=== PATIENT | male | born 1955 | race Hispanic/Latino ===

== ENCOUNTER 2017-09-02 04:07 | Inpatient (IN) | payer MEDICAID ==
[2017-09-02] MEDS ORDERED: Sodium Chloride 0.9% 1,000 ML IV STA ×2 (04:22→05:44)
--- NOTE | 2017-09-02 04:26 | ED PDOC ---
Arrival/HPI - General Chief Complaint: Weakness/Neurological Deficit Time Seen by Provider: 09/02/17 04:10 Historian: Patient - History of Present Illness Narrative History of Present Illness (Text): 09/02/17 04:[address] is a 62 year old male who presents to the emergency department with AMS as per patient's partner. Patient's partner that he came home last night at 18:00 to find that patient was not like himself "lethargic." Patient woke up later tonight and was "disoriented." Patient partner's denies patient experiencing any vomiting, fever, or any other complaints at this time. Time/Duration: 4-6 hours Symptom Onset: Gradual Symptom Course: Unchanged Activities at Onset: Rest Context: Home Past Medical History - Provider Review Nursing Documentation Reviewed: Yes - Cardiac Hx Atrial Fibrillation: Yes - Psychiatric Hx Substance Use: No Family/Social History - Physician Review Nursing Documentation Reviewed: Yes Family/Social History: No Known Family HX Smoking Status: no Hx Alcohol Use: No Hx Substance Use: No Allergies/Home Meds Allergies/Adverse Reactions: Allergies No Known Allergies Allergy (Verified 09/02/17 13:39) Home Medications: Home Meds Medication Instructions Recorded Confirmed Alprazolam [Xanax] 0.25 mg PO DAILY 07/21/17 09/02/17 Furosemide [Lasix] 40 mg PO DAILY 07/21/17 09/02/17 Nadolol [Corgard] 10 mg PO DAILY 07/21/17 09/02/17 Pantoprazole [Protonix] 40 mg PO DAILY 07/21/17 09/02/17 Spironolactone 100 mg PO DAILY 07/21/17 09/02/17 Review of Systems - Review of Systems Systems not reviewed;Unavailable: Acuity of Condition Physical Exam Vital Signs Temp Pulse Resp BP Pulse Ox 09/02/17 07:35 80 18 101/78 98 09/02/17 06:07 76 18 110/95 H 99 09/02/17 04:27 96.8 F L 86 18 101/72 99 Appearance: Positive for: Other (disoriented) - Systems Exam Head: Present: Atraumatic, Normocephalic Pupils: Present: PERRL Extroacular Muscles: Present: EOMI Conjunctiva: Present: Normal Mouth: Present: Dry (mucous membranes) Respiratory/Chest: Present: Clear to Auscultation, Good Air Exchange. No: Respiratory Distress, Accessory Muscle Use Cardiovascular: Present: Irregular Rhythm Abdomen: Present: Normal Bowel Sounds. No: Tenderness, Distention, Peritoneal Signs Neurological: Present: GCS=15, CN II-XII Intact, Speech Normal, Motor Func Grossly Intact, Normal Sensory Function, Normal Cerebellar Funct, Norm Deep Tendon Reflexes, Gait Normal, Memory Normal, Normal 2Pt Descrimination Skin: Present: Warm, Dry, Normal Color. No: Rashes Medical Decision Making ED Course and Treatment: EKG: Ordered, reviewed, and independently interpreted the EKG. Rate : 74 BPM Rhythm : A Fib Interpretation : Normal [place], No STEMI 09/02/17 05:28 Reviewed radiology, chest x-ray shoed right lower lobe opacity. - Lab Interpretations Lab Results: 09/02/17 04:10 09/02/17 04:10 Lab Results 09/02/17 04:10: Hemoglobin A1c 4.8 09/02/17 04:10: Procalcitonin 0.41 09/02/17 04:10: Hepatitis A IgM Ab Negative, Hep Bs Antigen Negative, Hep B Core IgM Ab Negative, Hepatitis C Antibody Negative 09/02/17 04:10: POC Glucose (mg/dL) 131 H 09/02/17 04:10: PT 13.9 H, INR 1.29 H, APTT 35.3 H 09/02/17 04:10: Alcohol, Quantitative < 10 09/02/17 04:10: Ammonia 140 H 09/02/17 04:10: Sodium 136, Chloride 103, Potassium 3.2 L, Carbon Dioxide 24, Anion Gap 12, BUN 27 H, Creatinine 1.4, Est GFR ( Amer) > 60, Est GFR ( Non-Af Amer) 51, Random Glucose 119 H, Calcium 8.8, Total Bilirubin 2.0 H, AST 60 H, ALT 32, Alkaline Phosphatase 173 H, Troponin I 0.02, Total Protein 7.7, Albumin 2.8 L, Globulin 4.9, Albumin/Globulin Ratio 0.6 L 09/02/17 04:10: WBC 4.9, RBC 3.20 L, Hgb 10.8 L, Hct 31.6 L, MCV 98.8, MCH 33.8 , MCHC 34.2, RDW 15.7 H, Plt Count 114 L, MPV 9.7, Gran % 55.5, Lymph % (Auto) 27.2, [place] % (Auto) 13.4 H, Eos % (Auto) 2.9, Baso % (Auto) 1.0, Gran # 2.70, Lymph # 1.3, [place] # 0.7 H, Eos # 0.1, Baso # 0.05 09/02/17 04:10: pO2 79 H, VBG pH 7.48 H, VBG pCO2 36.0 L, VBG HCO3 26.8, VBG Total CO2 27.9, VBG O2 Sat (Calc) 98.6 H, VBG Base Excess 3.4 H, VBG Potassium 3.1 L, Sodium 136.0, Chloride 105.0, Glucose 120 H, Lactate 1.5, FiO2 21.0, Venous Blood Potassium 3.1 L - RAD Interpretation Radiology Orders: 09/02/17 04:20 HEAD W/O CONTRAST [CT] Stat 09/02/17 04:22 CHEST PORTABLE [RAD] Stat - Medication Orders Current Medication Orders: Furosemide (Lasix) 20 mg IVP DAILY [facility] Azithromycin 250 mg/ Sodium (Chloride) 250 mls @ 167 mls/hr IVPB DAILY [facility] PRN Reason: Protocol Piperacillin Sod/Tazobactam Sod (Zosyn 2.25 Gm In 0.9% 100 Ml) 2.25 gm in 100 mls @ 100 mls/hr IVPB Q6 [facility] PRN Reason: Protocol Stop: 09/11/17 10:01 Last Admin: 09/02/17 23:35 Dose: 100 mls/hr eMAR Start Stop Document 09/02/17 23:35 CO (Rec: 09/02/17 23:36 CO [id number]) Intravenous Solution Start Date 09/02/17 Start Time 23:36 End Date 09/03/17 End time 00:36 Total Infusion Time 60 Lactulose (Enulose) 20 gm PO Q6 [facility] Last Admin: 09/02/17 23:35 Dose: 20 gm Morphine Sulfate (Morphine) 1 mg IVP Q4H PRN PRN Reason: Pain, severe (8-10) Nadolol (Corgard) 10 mg PO DAILY [facility] Last Admin: 09/02/17 10:19 Dose: Not Given Non-Admin Reason: BP Parameters Not Met MAR Pulse and Blood Pressure Document 09/02/17 10:19 SPA (Rec: 09/02/17 10:19 [email or web address]) Pulse Pulse Rate (60-90) 73 Blood Pressure Blood Pressure (100/60-150/90) 101/56 Pantoprazole Sodium (Protonix Inj) 40 mg IVP DAILY [facility] Last Admin: 09/02/17 10:20 Dose: 40 mg IVP Administration Document 09/02/17 10:20 SPA (Rec: 09/02/17 10:20 [email or web address]) Charges for Administration # of IVP Administrations 1 Spironolactone (Aldactone) 100 mg PO DAILY [facility] Last Admin: 09/02/17 10:19 Dose: 100 mg Discontinued Medications Furosemide (Lasix) 40 mg IVP DAILY [facility] Last Admin: 09/02/17 10:20 Dose: 40 mg MAR Blood Pressure Document 09/02/17 10:20 SPA (Rec: 09/02/17 10:20 [email or web address]) Blood Pressure Blood Pressure (100/60-150/90) 101/56 IVP Administration Document 09/02/17 10:20 SPA (Rec: 09/02/17 10:20 [email or web address]) Charges for Administration # of IVP Administrations 1 Furosemide (Lasix) 20 mg IVP ONCE ONE Stop: 09/02/17 17:46 Last Admin: 09/02/17 17:58 Dose: 20 mg MAR Blood Pressure Document 09/02/17 17:58 SPA (Rec: 09/02/17 17:58 [email or web address]) Blood Pressure Blood Pressure (100/60-150/90) 108/66 IVP Administration Document 09/02/17 17:58 SPA (Rec: 09/02/17 17:58 [place] [id number]) Charges for Administration # of IVP Administrations 1 Sodium Chloride (Sodium Chloride 0.9%) 1,000 mls @ 999 mls/hr IV .Q1H1M STA Stop: 09/02/17 05:22 Last Admin: 09/02/17 04:38 Dose: 999 mls/hr eMAR Start Stop Document 09/02/17 04:38 JOL (Rec: 09/02/17 04:40 [id number] Intravenous Solution Start Date 09/02/17 Start Time 04:39 End Date 09/02/17 End time 05:40 Total Infusion Time 61 Ceftriaxone Sodium (Rocephin 1 Gram Ivpb) 1 gm in 100 mls @ 200 mls/hr IVPB STAT STA PRN Reason: Protocol Stop: 09/02/17 05:57 Last Admin: 09/02/17 05:55 Dose: 200 mls/hr eMAR Start Stop Document 09/02/17 05:55 JOL (Rec: 09/02/17 06:10 [id number] Intravenous Solution Start Date 09/02/17 Start Time 05:55 End Date 09/02/17 End time 06:25 Total Infusion Time 30 Azithromycin (Zithromax 500mg In Ns) 500 mg in 250 mls @ 167 mls/hr IVPB STAT STA PRN Reason: Protocol Stop: 09/02/17 06:57 Last Admin: 09/02/17 06:41 Dose: 167 mls/hr eMAR Start Stop Document 09/02/17 06:41 JOL (Rec: 09/02/17 06:41 [id number] Intravenous Solution Start Date 09/02/17 Start Time 06:41 End Date 09/02/17 End time 08:11 Total Infusion Time 90 Sodium Chloride (Sodium Chloride 0.9%) 1,000 mls @ 999 mls/hr IV .Q1H1M STA Stop: 09/02/17 06:44 Last Admin: 09/02/17 05:55 Dose: 999 mls/hr eMAR Start Stop Document 09/02/17 05:55 JOL (Rec: 09/02/17 06:11 [id number] Intravenous Solution Start Date 09/02/17 Start Time 05:55 End Date 09/02/17 End time 06:56 Total Infusion Time 61 Azithromycin 250 mg/ Sodium (Chloride) 250 mls @ 167 mls/hr IVPB DAILY [facility] PRN Reason: Protocol Ceftriaxone Sodium (Rocephin 1 Gram Ivpb) 1 gm in 100 mls @ 100 mls/hr IVPB DAILY [facility] PRN Reason: Protocol Lactulose (Enulose) 20 gm PO ONCE STA Stop: 09/02/17 05:02 Last Admin: 09/02/17 05:27 Dose: 20 gm Morphine Sulfate (Morphine) 2 mg IVP STAT STA Stop: 09/02/17 06:29 Last Admin: 09/02/17 06:47 Dose: 2 mg MAR Pain Assessment Document 09/02/17 06:47 JO (Rec: 09/02/17 06:48 [id number] Pain Reassessment Is this a pain reassessment? No Sleep Is patient sleeping during reassessment? No Presence of Pain Presence of Pain Yes Pain Scale Used Pain Scale Used Numeric Location Left, Right or Bilateral Right Pain Location Body Site Chest Description Intensity of Pain at present 10 Acceptable Level of Pain 2 IVP Administration Document 09/02/17 06:47 JO (Rec: 09/02/17 06:48 [id number]) Charges for Administration # of IVP Administrations 1 Nadolol (Corgard) 10 mg PO STAT STA Stop: 09/03/17 01:04 Last Admin: 09/03/17 01:30 Dose: Not Given Non-Admin Reason: BP Parameters Not Met [facility] Pulse and Blood Pressure Document 09/03/17 01:30 CO (Rec: 09/03/17 01:31 CO [id number]) Pulse Pulse Rate (60-90) 87 Blood Pressure Blood Pressure (100/60-150/90) 93/70 Pneumococcal Polyvalent Vaccine (Pneumovax 23 Vaccine) 0.5 ml IM .ONCE ONE Stop: 09/02/17 16:24 Potassium Chloride (K-Dur 20 Meq Er Tab) 40 meq PO STAT STA Stop: 09/02/17 05:02 Last Admin: 09/02/17 05:27 Dose: 40 meq - Scribe Statement The provider has reviewed the documentation as recorded by the Corina Estevez Provider Scribe Attestation: All medical record entries made by the Scribe were at my direction and personally dictated by me. I have reviewed the chart and agree that the record accurately reflects my personal performance of the history, physical exam, medical decision making, and the department course for this patient. I have also personally directed, reviewed, and agree with the discharge instructions and disposition. Disposition/Present on Arrival - Present on Arrival Any Indicators Present on Arrival: No History of DVT/PE: No History of Uncontrolled Diabetes: No Urinary Catheter: No History of Decub. Ulcer: No History Surgical Site Infection Following: None - Disposition Have Diagnosis and Disposition been Completed?: Yes Diagnosis: Hepatic encephalopathy, Pneumonia Disposition: HOSPITALIZED Disposition Time: 05:43 Condition: GUARDED
[2017-09-02 04:30] LABS: VENOUS BLOOD GAS BASE EXCESS 3.4 mmol/L (0.0-2.0); VENOUS BLOOD PH 7.48 (7.32-7.43)
[2017-09-02 04:37] LABS: BASO # 0.05 K/mm3 (0.0-2.0); EOS # 0.1 (0.0-0.7); EOS % 2.9 % (1.5-5.0); GRAN # 2.7 (1.4-6.5); GRAN % 55.5 % (50.0-68.0); HEMATOCRIT 31.6 % (42.0-52.0); LYMPH # 1.3 (1.2-3.4); LYMPH % 27.2 % (22.0-35.0); MEAN CELL VOLUME 98.8 fl (80.0-105.0); MEAN CORPUSCULAR HEMOGLOBIN 33.8 pg (25.0-35.0); MEAN CORPUSCULAR HGB CONC 34.2 g/dl (31.0-37.0); MEAN PLATELET VOLUME 9.7 fl (7.0-11.0); MONO # 0.7 (0.1-0.6); MONO % 13.4 % (1.0-6.0); RED CELL DISTRIBUTION WIDTH 15.7 % (11.5-14.5); WHITE BLOOD COUNT 4.9 10^3/ul (4.5-11.0)
[2017-09-02 04:58] LABS: ALB/GLOB RATIO 0.6 (1.1-1.8); ALKALINE PHOSPHATASE 173 U/L (38-126); ALT/SGPT 32 U/L (7-56); AST/SGOT 60 U/L (17-59); BLOOD UREA NITROGEN 27 mg/dL (7-21); CALCIUM 8.8 mg/dL (8.4-10.5); CARBON DIOXIDE 24 mmol/L (21-33); CHLORIDE 103 mmol/L (98-107); GFR AFRICAN-AMERICAN > 60; GLUCOSE,RANDOM 119 mg/dL (70-110); POTASSIUM 3.2 mmol/L (3.6-5.0); SODIUM 136 mmol/L (132-148); TOTAL PROTEIN 7.7 g/dL (5.8-8.3)
[2017-09-02] MEDS ORDERED: Potassium Chloride 20 mEq ER Tab PO STA (05:01)
[2017-09-02 05:08] LABS: TROPONIN I 0.02 ng/mL
[2017-09-02] MEDS ORDERED: cefTRIAXone 1 gm 1 GM/100 ML BAG IVPB STA (05:28)
[2017-09-02] MEDS ORDERED: Azithromycin 500MG/NS 250ml 500 MG/250 ML BAG IVPB STA (05:28)
[2017-09-02] MEDS ORDERED: Morphine 2 mg/ml ISec IVP STA (06:28)
--- NOTE | 2017-09-02 06:35 | CT ---
EXAM: CT Head Without Intravenous Contrast CLINICAL HISTORY: 62 years old, male; Signs and symptoms; Altered mental status/memory loss; Additional info: AMS TECHNIQUE: Axial computed tomography images of the head/brain without intravenous contrast. All CT scans at this facility use one or more dose reduction techniques, viz.: automated exposure control; ma/kV adjustment per patient size (including targeted exams where dose is matched to indication; i.e. head); or iterative reconstruction technique. COMPARISON: No relevant prior studies available. FINDINGS: Brain: Mild atrophy. No intracranial hemorrhage. No mass. No definite edema. Ventricles: No hydrocephalus. Bones/joints: No acute fracture. Soft tissues: Unremarkable. Vasculature: Mild atherosclerotic disease of intracranial arteries. Sinuses: No acute sinusitis. Mastoid air cells: No mastoid effusion. Orbits: Unremarkable as visualized. IMPRESSION: 1. No definite acute intracranial abnormality. 2. Incidental/non-acute findings are described above.
[2017-09-02 07:01] LABS: INR 1.29 (0.93-1.08); PARTIAL THROMBOPLASTIN TIME 35.3 Seconds (23.7-30.8)
--- NOTE | 2017-09-02 07:48 | CP.PCM.HP ---
<Bekah Hwang - Last Filed: 09/02/17 14:05> History of Present Illness - History of Present Illness History of Present Illness: Patient is a 62 year old male with past medical history of Non-alcoholic liver cirrhosis, HTN, GERD, CHF (EF 45-50%) presents to [facility] for altered mental status and lethargy. The patients partner is at the bedside and states that when he came home yesterday evening, the patient was lethargic and not like himself. Patient was confused. Early this morning, patient remained confused and requested to be brought to the hospital. Patient is currently lethargic but answering questions appropriately. States that he feel out of bed the night before and landed on the right side of his body, denies hitting his head or LOC. Complaining of pain on his right side. Denies headaches, dizziness, cp, palpitations, sob, urinary symptoms, changes in bowel habits. Last BM was early this morning prior to arrival. Patient was scheduled for endoscopy today with his GI doctor. ED Course: Morphine 2mg x 1 dose, Lactulose 20gm, Azitho/Rocephin x 1 dose, Potassium 40meq PMD: Dr Bishop Tailings Man: Dr Angeles Allergies: Banana, Beef Medical History: HTN, GERD, Non-alcoholic liver cirrhosis, Ascites, CHF Medications: Pantoprazole, Nadolol, Spiranoalctone, Lasix, alprazolam Surgical Hx: Inguinal hernia repair Social Hx: Denies alcohol, drug used; Former smoker, quit 1 1/2 ago Family Hx: Mother - DM, heart disease; Father - AL Present on Admission - Present on Admission Any Indicators Present on Admission: No Review of Systems - Constitutional Constitutional: Fatigue, Lethargy. absent: Chills, Fever - EENT Eyes: absent: Blurred Vision, Change in Vision Ears: absent: Decreased Hearing - Cardiovascular Cardiovascular: absent: Chest Pain, Chest Pain at Rest, Dyspnea, Lightheadedness , Palpitations - Respiratory Respiratory: absent: Cough, Wheezing - Gastrointestinal Gastrointestinal: Abdominal Pain. absent: Constipation, Diarrhea, Melena, Nausea, Vomiting - Genitourinary Genitourinary: absent: Change in Urinary Stream, Dysuria, Hematuria - Musculoskeletal Musculoskeletal: absent: Back Pain, Numbness, Stiffness, Tingling - Neurological Neurological: absent: Confusion, Dizziness, Headaches, Weakness Past Patient History - Past Social History Smoking Status: no - CARDIAC Hx Atrial Fibrillation: Yes - PSYCHIATRIC Hx Substance Use: No Meds Allergies/Adverse Reactions: Allergies Allergy/AdvReac Type Severity Reaction Status Date / Time No Known Allergies Allergy Verified 09/02/17 13:39 Physical Exam - Constitutional Appears: Well, No Acute Distress - Head Exam Head Exam: ATRAUMATIC, NORMAL INSPECTION - Eye Exam Eye Exam: EOMI, Normal appearance - ENT Exam ENT Exam: Mucous Membranes Moist - Neck Exam Neck exam: Positive for: Full Rom - Respiratory Exam Respiratory Exam: Decreased Breath Sounds, NORMAL BREATHING PATTERN. absent: Rales, Rhonchi, Wheezes - Cardiovascular Exam Cardiovascular Exam: Irregular Rhythm, +S1, +S2 - GI/Abdominal Exam GI & Abdominal Exam: Distended, Soft, Tenderness (Diffuse abdominal tenderness) . absent: Guarding, Rebound, Rigid - Rectal Exam Rectal Exam: Deferred - Extremities Exam Extremities exam: Positive for: full ROM, normal inspection, pedal pulses present. Negative for: calf tenderness, pedal edema - Back Exam Back exam: NORMAL INSPECTION - Neurological Exam Neurological exam: Alert, Oriented x3 - Psychiatric Exam Psychiatric exam: Normal Affect, Normal Mood - Skin Skin Exam: Dry, Normal Color, Warm Results - Vital Signs Recent Vital Signs: Last Vital Signs Temp 96.8 F L 09/02/17 04:27 Pulse 76 09/02/17 06:07 Resp 18 09/02/17 06:07 BP 110/95 H 09/02/17 06:07 Pulse Ox 99 09/02/17 06:07 - Labs Result Diagrams: 09/02/17 04:10 09/02/17 04:10 Assessment & Plan - Assessment and Plan (Free Text) Assessment: Patient is a 62 year old male with past medical history of Non-alcoholic liver cirrhosis, HTN, GERD, CHF (EF 45-50%) presents to [facility] for altered mental status and lethargy. Patient found to have ammonia level of 140. Currently being treated for hepatic encephalopathy and community acquired pneumonia. Plan: 1. Altered Mental Status 2/2 Hepatic encephalopathy in the setting of Non- alcoholic Liver Cirrhosis - Currently Afebrile, AAOx3 - Ammonia level on admission 140 - Lactulose 20mg Q6H, titrate to 2-3 BMs daily - CT head: negative for acute pathology - Fall precautions 2. Hx Non-alcoholic Liver Cirrhosis with Severe ascities - Abdominal US ordered - Lasix 40mg IV daily - Morphine 1mg Q4hr prn severe pain - Continue Aldactone 100mg daily - Started on Azithromycin and Rocephin for SBP ppx - F/U Hep panel - AST/ALT: 60/32; T bili 2.0 - GI consulted, f/u recommendations - Partner to bring medical [place] [facility] [place]. Community Acquired Pneumonia, Right Lower Lobe - Started on Azithromycin and Rocephin - Urine strep/legionella ab ordered - F/U blood cx, urine cx, sputum cx - F/U procalcitonin - ID consulted, f/u recommendations 4. Anemia (likely secondary to chronic disease) - Hgb 10.8 on admission - No active signs of bleeding at this time - Will continue to monitor - F/U anemia workup 5. Hx of Congestive Heart Failure (systolic) - Last echo 06/2017 showing EF 45-50% - Stress test showed reversible apical/inferoseptal defects suspected of ischemia - Continue Lasix and aldactone - Daily weights - Strict I/Os 6. Hx of Atrial Fibrillation - Currently afib, rate controlled - Was on coumadin previously, had a GI bleed in the past - Not currently on anticoagulation - Trop 0.02 on admission 7. Hypertension - Hold Nadolol 10mg daily 8. Anxiety/Depression - Will hold xanax at this time 9. Hypokalemia - Potassium 3.2 on admission - Repleted, continue to monitor GI/DVT ppx - Protonix 40mg IVP - SCDs <Fay Das - Last Filed: 09/03/17 16:58> Results - Vital Signs Recent Vital Signs: Last Vital Signs Temp 97.9 F 09/03/17 05:37 Pulse 93 H 09/03/17 14:31 Resp 20 09/03/17 05:37 BP 98/63 L 09/03/17 14:31 Pulse Ox 98 09/03/17 05:37 - Labs Result Diagrams: 09/03/17 01:05 09/03/17 01:05 Labs: Laboratory Results - last 24 hr 09/02/17 09/03/17 09/03/17 13:30 01:05 01:05 WBC 5.1 RBC 3.49 L Hgb 11.9 L Hct 34.8 L MCV 99.7 MCH 34.1 MCHC 34.2 RDW 15.7 H Plt Count 117 L MPV 9.3 Gran % 65.2 Lymph % (Auto) 21.5 L [place] % (Auto) 10.5 H Eos % (Auto) 2.0 Baso % (Auto) 0.8 Gran # 3.30 Lymph # 1.1 L [place] # 0.5 Eos # 0.1 Baso # 0.04 PT 13.6 H INR 1.26 H APTT 34.5 H Sodium Potassium Chloride Carbon Dioxide Anion Gap BUN Creatinine Est GFR ( Amer) Est GFR (Non-Af Amer) Random Glucose Calcium Phosphorus Magnesium Ferritin 213.0 Total Bilirubin AST ALT Alkaline Phosphatase Ammonia Troponin I Total Protein Albumin Globulin Albumin/Globulin Ratio 09/03/17 09/03/17 01:05 01:05 WBC RBC Hgb Hct MCV MCH MCHC RDW Plt Count MPV Gran % Lymph % (Auto) [place] % (Auto) Eos % (Auto) Baso % (Auto) Gran # Lymph # [place] # Eos # Baso # PT INR APTT Sodium 141 Potassium 3.6 Chloride 104 Carbon Dioxide 27 Anion Gap 14 BUN 24 H Creatinine 1.4 Est GFR ( Amer) > 60 Est GFR (Non-Af Amer) 51 Random Glucose 97 Calcium 8.7 Phosphorus 3.8 Magnesium 1.8 Ferritin Total Bilirubin 3.7 H AST 63 H ALT 35 Alkaline Phosphatase 161 H Ammonia 27 Troponin I 0.01 D Total Protein 7.9 Albumin 2.9 L Globulin 5.0 Albumin/Globulin Ratio 0.6 L Attending/Attestation - Attestation I have personally seen and examined this patient.: Yes I have fully participated in the care of the patient.: Yes I have reviewed all pertinent clinical information: Yes Notes (Text): I have seen and examined the patient at bedside. Agree with the above note with the following additions/ exceptions: Briefly this is 62 year old male with history of TRUJILLO, former smoker, former social alcohol drinker, HTN, CHF (EF~45- 50%), afib not on anticoagulation due to GI bleed who was brought by his partner for evaluation of AMS and lethargy most likely secondary to hepatic encephalopathy and also found to have RLL CAP. His ammonia was 140. We will start lactulose and titrate dose based on number of stools per day. CT head negative. Will check abdomen US and hep panel. There is no abdominal tenderness. Abdomen is distended but not tense. Last paracentesis was in January 2017. Start lasix, spironolactone and nadolol. Will start rocephin and zithro. Anemia is stable. Will consult ID and GI. Upon discharge patient will follow up with Dr Lew. Dr Fay Das
[2017-09-02] MEDS ORDERED: Azithromycin 250 MG in Sodium Chloride 0.9% 250 ML IVPB SCH (10:00)
[2017-09-02] MEDS ORDERED: cefTRIAXone 1 gm 1 GM/100 ML BAG IVPB SCH (10:00)
[2017-09-02] MEDS ORDERED: Barium Sulfate Susp 2.1% w/v, 2.0% w/w 450 mL Bottle PO ONE (10:06)
--- NOTE | 2017-09-02 10:12 | US ---
HISTORY: Hx of non-alcoholic liver cirrhosis; ascites COMPARISON: None available. TECHNIQUE: Sonographic evaluation of the abdomen. FINDINGS: Examination limited by habitus and patient condition. LIVER: Measures 21.5 cm in sagittal dimension. Echogenic liver may be seen in setting of hepatic parenchymal disease or fatty infiltration. Nodular hepatic contour. No focal hepatic mass identified. The main portal vein appears patent with normal directional flow. No intrahepatic bile duct dilatation. Perihepatic and ascites. GALLBLADDER: No gallstones. No gallbladder wall thickening. Negative sonographic Ochoa's sign as assessed by the voltmeter operator. COMMON BILE DUCT: Measures 5 mm. PANCREAS: Not well visualized. RIGHT KIDNEY: Measures 10.9 x 5.3 x 4.8 cm. No obstructing calculus or hydronephrosis identified. LEFT KIDNEY: Measures 11.6 x 5.9 x 4.9 cm. No obstructing calculus or hydronephrosis identified. SPLEEN: Measures approximately 13.5 cm. Perisplenic ascites. AORTA: Not visualized. IVC: Not well-visualized. OTHER FINDINGS: Incidental note is made of right pleural effusion and probable left pleural effusion. IMPRESSION: Hepatomegaly. Echogenic liver may be seen in setting of hepatic parenchymal disease or fatty infiltration. Nodular hepatic contour, consistent with cirrhosis. Perihepatic ascites. Splenomegaly. Perisplenic ascites. Incidental note is made of bilateral pleural effusions.
[2017-09-02] MEDS: Piperacillin/Tazobact 2.25gm 2.25 GM/100 ML BAG IVPB SCH ×4 (10:20→23:35)
--- NOTE | 2017-09-02 10:24 | RAD ---
HISTORY: ams COMPARISON: No prior. FINDINGS: LUNGS: There is a patchy infiltrate at the right lung base that partially obscures the diaphragm PLEURA: No significant pleural effusion identified, no pneumothorax apparent. CARDIOVASCULAR: Normal. OSSEOUS STRUCTURES: No significant abnormalities. VISUALIZED UPPER ABDOMEN: Normal. OTHER FINDINGS: None. IMPRESSION: Right lower lobe infiltrate
[2017-09-02] MEDS ORDERED: Iohexol 240 (50 ml) ONE (11:17)
[2017-09-02 11:40] LABS: PH,URINE 6.5 (4.7-8.0); URINE BILIRUBIN NEGATIVE (NEGATIVE); URINE BLOOD NEGATIVE (NEGATIVE); URINE GLUCOSE (UA) NEGATIVE (NEGATIVE); URINE KETONE NEGATIVE (NEGATIVE); URINE LEUKOCYTE ESTERASE NEGATIVE Leu/uL (NEGATIVE); URINE PROTEIN NEGATIVE mg/dL (<30 mg/dL); URINE UROBILINOGEN 0.2 E.U./dL (<1 E.U./dL)
[2017-09-02 11:47] LABS: URINE APPEARANCE CLEAR (CLEAR); URINE COLOR YELLOW (YELLOW)
--- NOTE | 2017-09-02 13:06 | CARD ---
APPROVED REPORT EKG Measurement Heart [id number] <Conclusion> Atrial fibrillation Abnormal ECG
[2017-09-02 13:57] LABS: IRON 180 ug/dL (45-180)
--- NOTE | 2017-09-02 15:50 | CT ---
PROCEDURE: CT Abdomen and Pelvis without IV contrast. HISTORY: r/o SBP COMPARISON: Abdominal ultrasound performed 09/02/17 TECHNIQUE: Contiguous axial images of the abdomen and pelvis. Oral contrast was administered. No IV contrast given. Coronal and Sagittal reformats generated and reviewed. Radiation dose: Total exam DLP = 599.42 mGy-cm. This CT exam was performed using one or more of the following dose reduction techniques: Automated exposure control, adjustment of the mA and/or kV according to patient size, and/or use of iterative reconstruction technique. FINDINGS: There is limited evaluation of the solid organs without the administration of IV contrast. LOWER THORAX: Small right-sided pleural effusion and associated consolidation. LIVER: Nodular hepatic contour. Heterogeneous hepatic parenchyma. GALLBLADDER AND BILE DUCTS: Distended gallbladder. No calcified gallstones evident. PANCREAS: Fatty atrophy. SPLEEN: Borderline splenomegaly. ADRENALS: Unremarkable unenhanced appearance. KIDNEYS AND URETERS: No hydronephrosis or obstructing renal calculus. 3.3 cm left lower pole nonobstructing calculus. BLADDER: The urinary bladder appears unremarkable. REPRODUCTIVE: The prostate gland measures approximately 3.3 x 4.8 cm and contains coarse calcifications. APPENDIX: The appendix appears within normal limits of caliber. No secondary signs of acute appendicitis. BOWEL: The stomach is nondistended. The bowel loops appear within normal limits of caliber without evidence of intestinal obstruction. PERITONEUM: Large abdominal and pelvic ascites. No definite free air. LYMPH NODES: No bulky lymphadenopathy identified. VASCULATURE: Atherosclerotic calcifications. No aortic aneurysm. BONES: Osseous demineralization. Degenerative changes. OTHER FINDINGS: Fluid containing right inguinal hernia. IMPRESSION: Small right-sided pleural effusion and associated consolidation. Large abdominal and pelvic ascites. Distended gallbladder. No calcified gallstones evident. Borderline splenomegaly. Nodular hepatic contour. Heterogeneous hepatic parenchyma. Fatty pancreatic atrophy. Fluid containing right inguinal hernia.
[2017-09-02 16:23] VITALS: BMI 22.4
[2017-09-02] MEDS ORDERED: Influenza Vaccine 60 mcg/0.5 mL SYR (4YR UP) IM ONE (16:23)
[2017-09-02] MEDS ORDERED: Pneumococcal 23-Valent Vaccine IM ONE (16:23)
--- NOTE | 2017-09-02 20:27 | CON ---
DATE OF SERVICE: 09/02/2017 LOCATION: The patient was in room #264, bed #2. CHIEF COMPLAINT: Abdominal pain times several days. HISTORY OF PRESENT ILLNESS: This is a 62-year-old male with history of TRUJILLO, history of renal disease, atrial fibrillation, history of moderate aortic stenosis, history of mild tricuspid regurgitation with ejection fraction of 45% to 50% with cirrhosis and ascites that was documented on MRI of the abdomen in 03/2017. The patient also had a pharmacological stress testing on 07/21/2017 which showed reversible ischemia, is now admitted with abdominal pain and confusion, and the patient states that he is complaining of fever at home and occasional chills with abdominal pain. The abdominal pain is diffuse, non-radiation. No nausea or vomiting. No chest pain. No dysuria. No headaches. PAST MEDICAL HISTORY: Significant for TRUJILLO, renal disease, atrial fibrillation, moderate aortic stenosis, mild tricuspid regurgitation, ejection fraction of 45% to 50%, cirrhosis of the liver and ascites, and reversible ischemic disease on pharmacological stress testing with reversible ischemia with normal left ventricular function. PAST SURGICAL HISTORY: Noncontributory. ALLERGIES: THE PATIENT HAS NO KNOWN ALLERGIES TO ANY ANTIBIOTICS. MEDICATIONS: Include spironolactone, Protonix, nadolol, furosemide, and Xanax. PHYSICAL EXAMINATION: GENERAL: The patient is awake. He knows who he is. He knows what year it is. He knows where he is. Awake and oriented x3. VITAL SIGNS: Temperature of 96.8, blood pressure is 110/90, respiratory rate of 18, heart rate of 86. HEENT: Unremarkable. NECK: Supple. LUNGS: Have decreased breath sounds. HEART: Normal S1 and S2. ABDOMEN: Soft, mild tenderness, but no rebound, no guarding, and no masses. LABORATORY DATA: Laboratory examination reveals a white count of 4.9, hemoglobin of 10, platelets of 114 with 55% granulocytosis and 27% lymphocytosis. Coagulation reveals the INR is 1.29 and PT is 13.9 with PTT of 35. Blood gases are reviewed. Chemistries reveal a BUN of 27, creatinine of 1.4 with a GFR of 51, glucose is 131, bilirubin is 2, AST is 60, alkaline phosphatase is 173, ammonia level is 140, and the alcohol level is less than 10. Microbiology is pending. Currently, the patient had an ultrasound of the abdomen, results are pending. ASSESSMENT AND PLAN: This is a 62-year-old male with history of nonalcoholic steatohepatitis, history of renal disease, atrial fibrillation, moderate aortic stenosis, mild tricuspid regurgitation with cirrhosis of the liver with ascites, and reversible ischemia on a pharmacological stress testing, admitted now with abdominal pain, weakness, fever, and chills. To rule out spontaneous bacterial peritonitis, we will order Zosyn. We will order a CAT scan of the abdomen and pelvis because of his age. We will order an human immunodeficiency virus and hepatitis profile, and recommended a Gastroenterology consultation for a paracentesis. We will discontinue the ceftriaxone. We will make further recommendation based on the availability of initial results, chest x-ray, and we will follow with you. We will continue azithromycin for now with the Zosyn, pending initial workup results. We will follow with you. Bravo Christensen MD
[2017-09-03 01:20] LABS: BASO # 0.04 K/mm3 (0.0-2.0); BASO % 0.8 % (0.0-3.0); EOS # 0.1 (0.0-0.7); GRAN # 3.3 (1.4-6.5); GRAN % 65.2 % (50.0-68.0); HEMATOCRIT 34.8 % (42.0-52.0); LYMPH # 1.1 (1.2-3.4); LYMPH % 21.5 % (22.0-35.0); MEAN CELL VOLUME 99.7 fl (80.0-105.0); MEAN CORPUSCULAR HEMOGLOBIN 34.1 pg (25.0-35.0); MEAN CORPUSCULAR HGB CONC 34.2 g/dl (31.0-37.0); MEAN PLATELET VOLUME 9.3 fl (7.0-11.0); MONO # 0.5 (0.1-0.6); MONO % 10.5 % (1.0-6.0); RED CELL DISTRIBUTION WIDTH 15.7 % (11.5-14.5); WHITE BLOOD COUNT 5.1 10^3/ul (4.5-11.0)
[2017-09-03 01:27] LABS: INR 1.26 (0.93-1.08); PARTIAL THROMBOPLASTIN TIME 34.5 Seconds (23.7-30.8)
[2017-09-03 01:30] LABS: ALB/GLOB RATIO 0.6 (1.1-1.8); ALKALINE PHOSPHATASE 161 U/L (38-126); ALT/SGPT 35 U/L (7-56); AST/SGOT 63 U/L (17-59); BILIRUBIN,TOTAL 3.7 mg/dL (0.2-1.3); BLOOD UREA NITROGEN 24 mg/dL (7-21); CALCIUM 8.7 mg/dL (8.4-10.5); CARBON DIOXIDE 27 mmol/L (21-33); CHLORIDE 104 mmol/L (98-107); GFR AFRICAN-AMERICAN > 60; GLUCOSE,RANDOM 97 mg/dL (70-110); MAGNESIUM 1.8 mg/dL (1.7-2.2); PHOSPHOROUS 3.8 mg/dL (2.5-4.5); POTASSIUM 3.6 mmol/L (3.6-5.0); SODIUM 141 mmol/L (132-148); TOTAL PROTEIN 7.9 g/dL (5.8-8.3)
[2017-09-03 01:52] LABS: TROPONIN I 0.01 ng/mL
[2017-09-03] MEDS: Piperacillin/Tazobact 2.25gm 2.25 GM/100 ML BAG IVPB SCH ×4 (05:29→23:10)
--- NOTE | 2017-09-03 09:53 | CON ---
DATE: 09/02/2017 HISTORY OF PRESENT ILLNESS: Mr. Lane WAS EXAMINED this morning. He is a 62-year-old white male known to consultants with a past medical history of inguinal hernia repair, history of hypertension, acid reflux, refractory ascites due to decompensated cirrhosis, esophageal varices and several episodes of GI bleeds. The patient was admitted due to change in mental status. The patient was seen by his partner, who noted increasing disorientation over the past couple of days, especially last night. The patient was brought into the Emergency Room, where he was found to have on chest x-ray, infiltrate in the right lower lobe. The patient denied any fever, chills, nausea, vomiting, hematemesis, rectal bleeding, etc. His abdomen is still distended. The patient has past history of medication noncompliance. Last time, I saw this patient was for an acute upper GI bleed episode at [facility]. The patient has been on chronic therapy for refractory ascites for quite some time. A most recent evaluation of his medications today include diuretics plus spironolactone and beta-ameya. At the current time, the patient indicates the abdomen is distended, tight, tender in the epigastric area. He is afebrile, not worse at current time point, but the main difficulty is breathing at the current time point. PHYSICAL EXAMINATION: VITAL SIGNS: I reviewed this patient's vital signs. HEENT: Noncontributory. LUNGS: Decreased breath sounds, basilar bilaterally, but breath sounds are irregular in the right lower lobe extending up to about one-third of the apex. HEART: Irregular rhythm. ABDOMEN: Distended. Ascites can be appreciated clinically, he is tender in the epigastric area. MUSCULOSKELETAL: He is tender in the area where he fell yesterday according to the patient's partner. LABORATORY DATA: Evaluation of the patient's laboratory data includes urine positive for benzodiazepines as well as urine opiates, His alcohol level was less than 10. Serology is negative. Hepatitis C antibody pending. Chemistries reviewed. Glucose is in the impaired glucose tolerance range, however, high glucose 131. His alkaline phosphatase is 173, ammonia level 140 with albumin level of 2.8. Transaminases, AST/ALT ratio 60/32. Bilirubin 2.0. Review of his CBC indicates white count of 4.9 with H and H of 10.0/31, platelet count of 114. His INR is 1.39. The patient has several imaging studies including an ultrasound, which reveals evidence of no stones, no gallbladder wall thickening. Liver is echogenic since the patient has had hepatic steatosis before. No focal hepatic mass noted. Portal vein is patent. There is no intrahepatic ductal dilatation. Patient's splenomegaly report is consistent with his diagnosis of portal hypertension with history of esophageal varices. There are small bilateral pleural effusion. The patient has known cirrhosis and the liver ultrasound exhibits a nodular hepatic contour which is consistent. The patient had head CT because of change in mental status, which revealed basically no definite acute intracranial abnormality. I reviewed the H and P as well as ER doctor's documentation. ASSESSMENT: This is a 62-year-old white male known to parts consultant with past medical history of decompensated cirrhosis, history of esophageal variceal bleed, refractory ascites, currently on diuretics, presenting with new right lower lobe pneumonia. As far as the pneumonia is concerned, he is currently on antibiotic therapy, on ceftriaxone. Azithromycin was also added per house staff. The patient has known documented decompensated liver disease. He is here with clinical scenario of a pneumonia.with an increase in the hepatic encephalopathy which he has had on numerous occasions before. The patient does use lactulose for hepatic encephalopathy at home. He has used beta-blockers plus spironolactone for control of ascites, but for the most part, he has been medication refractory. The patient has been placed on his current medications, which include spironolactone 100 mg daily, nadolol 10 mg daily, as well as lactulose on a q.6 hour basis. He does receive Lasix 40 mg, which is a good adjunct to the spironolactone 100 mg daily. His electrolytes must be followed with this regimen. It might be in the patient's best interest at some time point to have a large-volume paracentesis done. He is not sure exactly when his last paracentesis was, according to his partner approximately more than 6 months, and this patient is medication refractory. If mental status permits, possibly either clear or full liquids and increase consistency as tolerated when his mental status improves appropriately. Edgar Fuchs DO, PhD MTDCasper
[2017-09-03] MEDS ORDERED: Azithromycin 250 MG in Sodium Chloride 0.9% 250 ML IVPB SCH (10:00)
[2017-09-03] MEDS ORDERED: cefTRIAXone 1 gm 1 GM/100 ML BAG IVPB SCH (10:00)
--- NOTE | 2017-09-03 11:15 | CP.PCM.PN ---
<Steven Dixon - Last Filed: 09/03/17 11:04> Subjective - Date & Time of Evaluation Date of Evaluation: 09/03/17 Time of Evaluation: 09:30 - Subjective Subjective: Subjective: Patient seen and examined at bedside. Resting comfortably in bed. Admits to 2 nonbloody bowel movements. Does not want to take lactulose. Admits to baseline right sided back pain. Denies f/c/cp/sob/abdominal pain/n/v/d/c/urinary sxs. Physical Examination: - Constitutional Appears: Well, No Acute Distress - Head Exam Head Exam: ATRAUMATIC, NORMAL INSPECTION - Eye Exam Eye Exam: EOMI, Normal appearance - ENT Exam ENT Exam: Mucous Membranes Moist - Neck Exam Neck exam: Positive for: Full Rom - Respiratory Exam Respiratory Exam: Decreased Bilateral Air Entry, NORMAL BREATHING PATTERN. absent: Rales, Rhonchi, Wheezes - Cardiovascular Exam Cardiovascular Exam: Irregular Rhythm, +S1, +S2 - GI/Abdominal Exam GI & Abdominal Exam: Soft, absent: Guarding, Rebound, Rigid - Rectal Exam Rectal Exam: Deferred - Extremities Exam Extremities exam: Positive for: full ROM, normal inspection, pedal pulses present. Negative for: calf tenderness, pedal edema - Back Exam Back exam: NORMAL INSPECTION - Neurological Exam Neurological exam: Alert, Oriented x3, Patient is awake, alert, responds to verbal stimuli, answers questions appropriately, follows commands, and moves extremities past midline - Psychiatric Exam Psychiatric exam: Normal Affect, Normal Mood - Skin Skin Exam: Dry, Normal Color, Warm Assessment and Plan: Patient is a 62 year old male with past medical history of Non-alcoholic liver cirrhosis, HTN, GERD, CHF (EF 45-50%) presents to [facility] for altered mental status and lethargy. Patient found to have ammonia level of 140 which has improved to 27. Currently being treated for hepatic encephalopathy and community acquired pneumonia. Plan: Altered Mental Status 2/2 Hepatic encephalopathy in the setting of Non- alcoholic Liver Cirrhosis - improving- patient is awake, alert, responds to verbal stimuli, answers questions appropriately, follows commands, and moves extremities past midline - Ammonia level downtrending to 27 - Lactulose discontinued due to patient noncompliance- starting xifaxin - CT head: negative for acute pathology - Fall precautions Nonsustained Vtach - experienced 1 9 beat run of vtach- no chest pain - cardiology consult - ECHO from august reviewed - home nodalol held due to low BPs Hx Non-alcoholic Liver Cirrhosis with Severe ascities - Abdominal US reviewed- heaptomegaly with infiltration and cirrhosis noted - Lasix 20mg IV daily - Morphine 1mg Q4hr prn severe pain - Continue Aldactone 100mg daily - Started on Azithromycin and Rocephin for SBP ppx - F/U Hep panel - AST/AL noted; T bili 3.7 - GI consulted, appreciate recommendations - Partner to bring medical records from [facility] Community Acquired Pneumonia, Right Lower Lobe - Urine strep/legionella ab ordered - F/U blood cx, urine cx, sputum cx - procalcitonin 0.41 - ID consulted- on zosyn and azithromycin Anemia (likely secondary to chronic disease) - Hgb stable - No active signs of bleeding at this time - Will continue to monitor - anemia workup- TIBC elevated and ferritin is low Hx of Congestive Heart Failure (systolic) - Last echo 06/2017 showing EF 45-50% - Stress test showed reversible apical/inferoseptal defects suspected of ischemia - Continue Lasix and aldactone - Daily weights - Strict I/Os Hx of Atrial Fibrillation - Currently afib, rate controlled - Was on coumadin previously, had a GI bleed in the past- will hold for now, cardiology consult pending - Trop 0.02 on admission Hypertension - Hold Nadolol 10mg daily Anxiety/Depression - Will hold xanax at this time due to AMS on admission Hypokalemia - resolved GI/DVT ppx - Protonix 40mg IVP - SCDs Patient seen, case discussed with, and plan approved by attending physician, Dr. Das. Objective - Vital Signs/Intake and Output Vital Signs (last 24 hours): Temp Pulse Resp BP Pulse Ox 97.9 F 96 H 20 114/63 98 09/03/17 05:37 09/03/17 05:37 09/03/17 05:37 09/03/17 10:21 09/03/17 05:37 Intake and Output: 09/03/17 09/03/17 06:59 18:59 Intake Total 620 Output Total 901 Balance -281 - Medications Medications: Current Medications Azithromycin (Zithromax) 500 mg PO DAILY [facility] PRN Reason: Protocol Stop: 09/10/17 10:01 Last Admin: 09/03/17 10:23 Dose: 500 mg Furosemide (Lasix) 20 mg IVP DAILY [facility] Last Admin: 09/03/17 10:21 Dose: 20 mg Piperacillin Sod/Tazobactam Sod (Zosyn 2.25 Gm In 0.9% 100 Ml) 2.25 gm in 100 mls @ 100 mls/hr IVPB Q6 [facility] PRN Reason: Protocol Stop: 09/11/17 10:01 Last Admin: 09/03/17 05:29 Dose: 100 mls/hr Lactulose (Enulose) 20 gm PO Q6 [facility] Last Admin: 09/03/17 05:29 Dose: 20 gm Morphine Sulfate (Morphine) 1 mg IVP Q4H PRN PRN Reason: Pain, severe (8-10) Nadolol (Corgard) 10 mg PO DAILY [facility] Last Admin: 09/02/17 10:19 Dose: Not Given Pantoprazole Sodium (Protonix Inj) 40 mg IVP DAILY [facility] Last Admin: 09/03/17 10:17 Dose: 40 mg Spironolactone (Aldactone) 100 mg PO DAILY [facility] Last Admin: 09/03/17 10:21 Dose: 100 mg - Labs Labs: 09/03/17 01:05 09/03/17 01:05 PT 13.6 Seconds (9.9-11.8) H 09/03/17 01:05 INR 1.26 (0.93-1.08) H 09/03/17 01:05 APTT 34.5 Seconds (23.7-30.8) H 09/03/17 01:05 <Fay Das - Last Filed: 09/03/17 17:04> Objective - Vital Signs/Intake and Output Vital Signs (last 24 hours): Temp Pulse Resp BP Pulse Ox 97.9 F 93 H 20 98/63 L 98 09/03/17 05:37 09/03/17 14:31 09/03/17 05:37 09/03/17 14:31 09/03/17 05:37 Intake and Output: 09/03/17 09/03/17 06:59 18:59 Intake Total 620 Output Total 901 Balance -281 - Medications Medications: Current Medications Aspirin (Ecotrin) 81 mg PO DAILY [facility] Last Admin: 09/03/17 14:39 Dose: 81 mg Azithromycin (Zithromax) 500 mg PO DAILY [facility] PRN Reason: Protocol Stop: 09/10/17 10:01 Last Admin: 09/03/17 10:23 Dose: 500 mg Furosemide (Lasix) 20 mg IVP DAILY [facility] Last Admin: 09/03/17 10:21 Dose: 20 mg Piperacillin Sod/Tazobactam Sod (Zosyn 2.25 Gm In 0.9% 100 Ml) 2.25 gm in 100 mls @ 100 mls/hr IVPB Q6 [facility] PRN Reason: Protocol Stop: 09/11/17 10:01 Last Admin: 09/03/17 14:29 Dose: 100 mls/hr Morphine Sulfate (Morphine) 1 mg IVP Q4H PRN PRN Reason: Pain, severe (8-10) Last Admin: 09/03/17 14:51 Dose: 1 mg Nadolol (Corgard) 10 mg PO DAILY [facility] Last Admin: 09/03/17 14:31 Dose: 10 mg Pantoprazole Sodium (Protonix Inj) 40 mg IVP DAILY [facility] Last Admin: 09/03/17 10:17 Dose: 40 mg Rifaximin (Xifaxan) 550 mg PO BID [facility] PRN Reason: Protocol Last Admin: 09/03/17 14:30 Dose: 550 mg Spironolactone (Aldactone) 100 mg PO DAILY [facility] Last Admin: 09/03/17 10:21 Dose: 100 mg - Labs Labs: 09/03/17 01:05 09/03/17 01:05 PT 13.6 Seconds (9.9-11.8) H 09/03/17 01:05 INR 1.26 (0.93-1.08) H 09/03/17 01:05 APTT 34.5 Seconds (23.7-30.8) H 09/03/17 01:05 Attending/Attestation - Attestation I have personally seen and examined this patient.: Yes I have fully participated in the care of the patient.: Yes I have reviewed all pertinent clinical information, including history, physical exam and plan: Yes Notes (Text): I have seen and examined the patient at bedside. Agree with the above note with the following additions/ exceptions: Briefly this is 62 year old male with history of TRUJILLO, former smoker, former social alcohol drinker, HTN, CHF (EF~45- 50%), afib rate controlled not on anticoagulation due to GI bleed who was brought by his partner for evaluation of AMS and lethargy most likely secondary to hepatic encephalopathy and also found to have RLL CAP. His ammonia was 140. He has been getting lactulose which resulted in diarrhea. Ammonia level is 20 now. Patient is alert, awake and oriented X3. He is refusing to take lactulose. Will start rifaxamin. Abdomen CT pending. Hep panel negative. Discussed with GI. There is no abdominal tenderness. Abdomen is distended but not tense. Last paracentesis was in January 2017. Decrease dose of lasix as BP is on the lower side. Continue spironolactone. Will continue zosyn and zithro. Anemia is stable. Today he had non sustained Vtach. Patient remained asymptomatic. Electrolytes stable. [employer] consulted. Upon discharge patient will follow up with Dr Lew. Dr aFy Das
--- NOTE | 2017-09-03 13:32 | PN ---
DATE: 09/03/2017 SUBJECTIVE: The patient is in bed in no acute distress, nontoxic. PHYSICAL EXAMINATION: VITAL SIGNS: On exam, temperature is 98, blood pressure is 107/60, respiratory rate of 16. HEENT: Unremarkable. NECK: Supple. LUNGS: Decreased breath sounds. HEART: Normal S1 and S2. ABDOMEN: Soft and nontender. LABORATORY EXAMINATION: Reveals a white count of 5.1, hemoglobin of 11, and platelets of 117. Coagulation is noted. Chemistry reveals a BUN of 24 and creatinine of 1.4. HIV is negative. Urine for Legionella antigen is negative. Hepatitis profile is negative. Urinalysis is negative. Microbiology reveals the blood cultures have no growth. The patient had a CAT scan of the abdomen and pelvis, which reveals a large abdominal and pelvic ascites, distended gallbladder; no calcified gallstone, borderline splenomegaly, nodular hepatic contour and a small right pleural effusion and associated consolidation. The patient's chest x-ray is reported as patchy infiltrate of the right lung base. ASSESSMENT AND PLAN: This is a 62-year-old male with past medical history of nonalcoholic steatohepatitis, history of renal disease, history of atrial fibrillation, history of moderate aortic stenosis, history of mild tricuspid regurgitation, and ejection fraction of 45% to 50%, the patient with history of cirrhosis and ascites documented on MRI of the abdomen in 03/2017. The patient also had a pharmacological stress testing on 07/21/2017, which showed reversible ischemia now admitted with abdominal pain, confusion, fevers at home, tachycardia, and anemia. The patient also had abdominal discomfort with a right lower lobe community-acquired pneumonia and distended gallbladder, ascites, must rule out spontaneous bacterial peritonitis versus acute cholecystitis with a distended gallbladder and a case of right lower lobe community-acquired pneumonia. The patient should have paracentesis to evaluate the ascitic fluid. Currently, the patient is on Zosyn and IV Zithromax, which I will change to p.o. Zithromax and order a HIDA scan. The patient is much, much improved. His mental status is back to baseline. He is awake and alert. We will make further recommendation upon the final culture results and evaluation of the ascitic fluid. Bravo Christensen MD
--- NOTE | 2017-09-03 14:14 | NM ---
PROCEDURE: Nuclear Medicine Hepatobiliary Scan HISTORY: r/o gb ds COMPARISON: Comparison is made to the previous CT dated 09/02/2017 TECHNIQUE: 6.0 MCi of technetium 99m Mebrofenin was administered intravenously. Planar images of the abdomen were obtained at 5 min intervals to 60 mins. Delayed images were also obtained. FINDINGS: LIVER: Heterogeneous uptake of the tracer in the liver. Relatively enlarged left liver lobe and caudate lobe consistent with patient's history of cirrhosis. COMMON BILE DUCT: identified at 15 mins. GALLBLADDER: identified at 45 mins. SMALL BOWEL: Identified at 30 mins. IMPRESSION: No scintigraphic evidence of acute cholecystitis. . The cystic duct is patent.
--- NOTE | 2017-09-03 14:23 | CARD ---
APPROVED REPORT EKG Measurement Heart [id number] <Conclusion> Atrial fibrillation Low voltage QRS Abnormal QRS-T angle, consider primary T wave abnormality Prolonged QT Abnormal ECG
[2017-09-03] MEDS: Morphine 2 mg/ml ISec IVP PRN ×3 (14:51→23:10)
--- NOTE | 2017-09-03 16:04 | PN ---
DATE OF SERVICE: 09/03/2017 SUBJECTIVE: Mr. Lane was examined this morning. He is a 62-year-old white male, known to [employer] consultant, with past medical history of hypertension, acid reflux, ascites, CHF, portal hypertension with esophageal varices, and cryptogenic cirrhosis. When I was evaluating this patient on prior occasions, I could not delineate the etiology for the cirrhosis since the serology was negative. In view of cryptogenic cirrhosis and appearance on imaging studies of severely echogenic liver more consistent with a nonalcoholic fatty liver disease type picture. At some time point in the past also, his transferrin saturation was up in the range of hemochromatosis or iatrogenic iron overload level that is about high 40s. He has never received a conclusive liver diagnosis. The patient was currently admitted with change in mental status. I have reviewed this issue with the patient's partner yesterday in the patient's room. He was complaining about some difficulty breathing; however, at the bedside this morning, the patient is more alert and awake, mental status has improved, indicating his breathing is also improved. No fever or chills; however, his abdomen still feels a little tight. He is passing urine with the current diuretic regimen. Because of his ascites issue, he has received periodic large-volume paracentesis in the past with symptomatic relief. I reviewed this issue with the hospitalist yesterday. PHYSICAL EXAMINATION: VITAL SIGNS: I reviewed this patient's vital signs. HEENT: Noncontributory. LUNGS: Decreased breath sounds, basilar; however, on the right side, decreased breath sounds extended about third way up to the apex. HEART: Regular rhythm. ABDOMEN: Protuberant, appears to be his usual abdominal girth size, can be obesity. Mild tenderness elicited in the epigastric area. LABORATORY DATA: Review of laboratory data indicates H and H of 11.0 and 34, platelet count 117. Most recent INR from today includes level of 1.25. Chemistry as of this morning indicates BUN and creatinine ratio of 24 and 1.4. His iron level was 180 with TIBC of 226. The transferrin level was 142.8, bilirubin 3.7 with transaminase ratio of AST and ALT of 62 and 35. The patient's transferrin saturation is even higher than it was previously. This is most likely in line with iron overload condition as indicated previously. He has a negative troponin, alkaline phosphatase 161, with an albumin of 2.9. ASSESSMENT AND PLAN: This is a 62-year-old white male whom initially I had seen in the past with diagnosis of cryptogenic cirrhosis; however, I did entertain possibility of nonalcoholic steatohepatitis or nonalcoholic fatty liver disease and/or component of hemochromatosis/iron overload which can occur together. He did have a mildly elevated transferrin saturation background; however, his TSAT is in the level of 80 right now which is again in the hemochromatosis range. If hemochromatosis is verified, phlebotomy in order to decrease transferrin saturation to a level much less than 45 -50 is suggested. The workup of his iron overload issue can be performed by another GI on outpatient basis. A liver biopsy with possible genetics might be in order to clarify NAFLD or TRUJILLO with iron overload component. The patient is admitted with pneumonia and is currently treated by Dr. Christensen. Antibiotics include ceftriaxone and azithromycin. For cirrhosis and portal hypertension issues, the patient is currently on beta-ameya therapy plus spironolactone and lactulose. Continue to use the current dose. Because of portal hypertension issues, we should just continue with beta-ameya therapy. Hematocrit should be kept somewhere in the range of less than 30. to maintain the hematocrit at a level which would not predispose upper gastrointestinal bleeds. Note that the last time I had seen this patient was for an upper gastrointestinal bleed episode at [facility]. At that particular time point, the patient had esophageal varices, ascites, etc. Therefore, we diagnosed him with portal hypertension with decompensated cirrhosis. Edgar Fuchs DO, PhD [facility]
[2017-09-04] MEDS: Morphine 2 mg/ml ISec IVP PRN ×5 (04:22→23:04)
--- NOTE | 2017-09-04 05:47 | CON ---
DATE: 09/03/2017 . REASON FOR CONSULTATION: Nine beats of VT, history of decreased LV function, cardiomyopathy, nonalcoholic cirrhosis. HISTORY OF PRESENT ILLNESS: This is a 62-year-old male with a past medical history significant for nonalcoholic cirrhosis, hypertension, gastroesophageal reflux disease, cardiomyopathy with ejection fraction 40% to 45%, admitted to the [facility] with altered mental status secondary to hepatic encephalopathy and pneumonia. Denies any chest pain or shortness of breath. The patient was on monitor, had 9 beats of VT. Cardiology consult was called because of 9 beats of VT. PAST MEDICAL HISTORY: Significant for alcoholic cirrhosis, hypertension, and gastroesophageal reflux. SOCIAL HISTORY: Denies smoking. Denies any history of alcohol abuse. Denies any history of substance abuse. CURRENT MEDICATIONS: The patient is taking nadolol, spironolactone, Lasix, and alprazolam. PAST SURGICAL HISTORY: Significant for inguinal hernia repair many years ago. FAMILY HISTORY: Significant for diabetes, hypertension, and ND. REVIEW OF SYSTEMS: As per HPI. PHYSICAL EXAMINATION: VITAL SIGNS: Temperature afebrile, heart rate 96, blood pressure 114/63. HEENT: PERRLA intact. NECK: Supple. No carotid bruit or thyromegaly. CHEST: Clear to auscultation. HEART: S1 and S2 regular. ABDOMEN: Soft. EXTREMITIES: Clubbing and cyanosis negative. LABORATORY DATA: Blood workup as follows: WBC 5.9, hemoglobin 11.9, hematocrit 34.8, platelet count 117. Chemistry shows sodium 141, potassium 3.7, chloride 104, carbon dioxide 26, anion gap of 14, BUN 24, and creatinine 1.4. Troponin is 0.01 negative. PREVIOUS CARDIAC WORKUP: As follows: The patient had stress test on 07/03/[address] Angeles and found probably abnormal except myocardial reversible apical into several suspicious ischemia and normal gated wall motion abnormality, ejection fraction of 59%. The patient had echocardiography on 07/21/2017 that showed ejection fraction of 45% to 50%, trace aortic regurgitation, valve is calcified and displays decreased opening, moderate valvular aortic stenosis, mild mitral regurgitation, [id number] tricuspid regurgitation, RV systolic pressure of 38, trace pericardial effusion. IMPRESSION: Five beats of ventricular tachycardia, runs low blood pressure, history of nonalcoholic cirrhosis, abnormal stress test, and ischemia. RECOMMENDATIONS: We will resume back nadolol 10 mg p.o. Continue baby aspirin. Consider cardiac catheterization. We will discuss with the patient. If the patient agrees, we will proceed with the cardiac catheterization. The patient has a history of pneumonia. We will continue antibiotic. We will follow with you. Thank you Dr. Das for providing us the opportunity in taking care of the patient, Emilio Lane. Richa Fine MD [facility]
[2017-09-04] MEDS: Piperacillin/Tazobact 2.25gm 2.25 GM/100 ML BAG IVPB SCH ×4 (06:35→23:07)
[2017-09-04 09:10] LABS: BASO # 0.06 K/mm3 (0.0-2.0); BASO % 0.8 % (0.0-3.0); EOS # 0.2 (0.0-0.7); GRAN # 4.41 (1.4-6.5); GRAN % 55.5 % (50.0-68.0); HEMATOCRIT 36.9 % (42.0-52.0); LYMPH # 2.1 (1.2-3.4); LYMPH % 26.8 % (22.0-35.0); MEAN CELL VOLUME 101.4 fl (80.0-105.0); MEAN CORPUSCULAR HEMOGLOBIN 34.6 pg (25.0-35.0); MEAN CORPUSCULAR HGB CONC 34.1 g/dl (31.0-37.0); MONO # 1.1 (0.1-0.6); MONO % 13.9 % (1.0-6.0); RED CELL DISTRIBUTION WIDTH 15.7 % (11.5-14.5); WHITE BLOOD COUNT 7.9 10^3/ul (4.5-11.0)
[2017-09-04 09:20] LABS: ALB/GLOB RATIO 0.6 (1.1-1.8); BILIRUBIN,TOTAL 3.1 mg/dL (0.2-1.3); POTASSIUM 3.6 mmol/L (3.6-5.0); TOTAL PROTEIN 8.7 g/dL (5.8-8.3)
--- NOTE | 2017-09-04 10:27 | PN ---
DATE: 09/04/2017 SUBJECTIVE: The patient is in bed, in no acute distress, nontoxic. PHYSICAL EXAMINATION: VITAL SIGNS: Temperature is 98.0, blood pressure is 109/60, respiratory rate of 20, heart rate of 81. HEENT: Unremarkable. NECK: Supple. LUNGS: Decreased breath sounds. HEART: Normal S1 and S2. ABDOMEN: Soft and nontender. LABORATORY EXAMINATION: Reveals a white count of 5.1, hemoglobin is 11, platelets of 117, and coagulation is noted. Chemistries reveals a BUN of 24, creatinine of 1.4. Urinalysis is noted. Toxicology is noted. Serology is noted. HIV is negative. Urine for Legionella is negative. Hepatitis profile is negative. Blood cultures and urine cultures are negative. The patient's HIDA scan is negative. Dr. Rdz's consultation is reviewed. These reveals the patient has five beats of V-tach. Dr. Fay Das's progress note is also reviewed. ASSESSMENT AND PLAN: This is a 62-year-old male with past medical history of nonalcoholic steatohepatitis, history of renal disease, history of atrial fibrillation, history of moderate aortic stenosis, history of mild tricuspid regurgitation, ejection fraction of 45-50% in the patient with history of cirrhosis and ascites, which was documented on MRI of the abdomen in March 2017. The patient also had a pharmacologic stress testing on 07/21/2017, which showed a reversible ischemia. On this admission, the patient is admitted with abdominal pain, confusion, fevers, tachycardia, and anemia, which also has, in the right lower lobe, community-acquired pneumonia, and distended gallbladder. HIDA scan is negative. Possible spontaneous bacterial peritonitis with right lower lobe community-acquired pneumonia, should ideally had paracentesis, currently on Zosyn and Zithromax, may be able to switch to p.o. antibiotics. The patient is resolved nicely. Mental status is back to normal in the next 24-48 hours. The patient is also on aspirin, Aldactone, Corgard, and furosemide. The patient's Zosyn is adjusted for the renal insufficiency with a GFR of 51. We will follow with you. Bravo Christensen MD
--- NOTE | 2017-09-04 12:05 | CP.PCM.PN ---
Addendum entered and electronically signed by Steven Dixon DO 09/04/17 12:09: Assessment and Plan Elevated creatinine noted- will continue to monitor via cmp, if it continues to increase will reduce or dc lasix Original Note: <Steven Dixon - Last Filed: 09/04/17 12:01> Subjective - Date & Time of Evaluation Date of Evaluation: 09/04/17 Time of Evaluation: 10:52 - Subjective Subjective: Subjective: Patient seen and examined at bedside. Resting comfortably in bed. Admits to baseline right sided back pain. More awake and alert today. Denies f/c/cp/sob/ abdominal pain/n/v/d/c/urinary sxs. Physical Examination: - Constitutional Appears: Well, No Acute Distress - Head Exam Head Exam: ATRAUMATIC, NORMAL INSPECTION - Eye Exam Eye Exam: EOMI, Normal appearance - ENT Exam ENT Exam: Mucous Membranes Moist - Neck Exam Neck exam: Positive for: Full Rom - Respiratory Exam Respiratory Exam: Decreased Bilateral Air Entry, NORMAL BREATHING PATTERN. absent: Rales, Rhonchi, Wheezes - Cardiovascular Exam Cardiovascular Exam: Irregular Rhythm, +S1, +S2 - GI/Abdominal Exam GI & Abdominal Exam: Soft, absent: Guarding, Rebound, Rigid - Rectal Exam Rectal Exam: Deferred - Extremities Exam Extremities exam: Positive for: full ROM, normal inspection, pedal pulses present. Negative for: calf tenderness, pedal edema - Back Exam Back exam: NORMAL INSPECTION - Neurological Exam Neurological exam: Alert, Oriented x3, Patient is awake, alert, responds to verbal stimuli, answers questions appropriately, follows commands, and moves extremities past midline - Psychiatric Exam Psychiatric exam: Normal Affect, Normal Mood - Skin Skin Exam: Dry, Normal Color, Warm Assessment and Plan: Patient is a 62 year old male with past medical history of Non-alcoholic liver cirrhosis, HTN, GERD, CHF (EF 45-50%) presents to [facility] for altered mental status and lethargy. Patient found to have ammonia level of 140 which has improved to 27. Currently being treated for hepatic encephalopathy and community acquired pneumonia. Plan: Altered Mental Status 2/2 Hepatic encephalopathy in the setting of Non- alcoholic Liver Cirrhosis - improving- patient is awake, alert, responds to verbal stimuli, answers questions appropriately, follows commands, and moves extremities past midline - Ammonia level downtrended to 27 - Lactulose discontinued due to patient noncompliance- c/w xifaxin - CT head: negative for acute pathology - Fall precautions Nonsustained Vtach - experienced 1 9 beat run of vtach- no chest pain - cardiology consult- appreciate recs- restarted patient on nadolol and considering cardiac cath this visit pending conversation with patient - ECHO from june reviewed Hx Non-alcoholic Liver Cirrhosis with Severe ascities - Abdominal US reviewed- heaptomegaly with infiltration and cirrhosis noted - Lasix 20mg IV daily - Morphine 1mg Q4hr prn severe pain - Continue Aldactone 100mg daily - Started on Azithromycin and Rocephin for SBP ppx - F/U Hep panel - AST/AL noted; T bili 3.7 - GI consulted, appreciate recommendations - Partner to bring medical records from [facility] Community Acquired Pneumonia, Right Lower Lobe - Urine strep/legionella ab ordered - F/U blood cx, urine cx, sputum cx - procalcitonin 0.41 - ID consulted- on zosyn and azithromycin Anemia (likely secondary to chronic disease) - Hgb stable - No active signs of bleeding at this time - Will continue to monitor - anemia workup- TIBC elevated and ferritin is low Hx of Congestive Heart Failure (systolic) - Last echo 06/2017 showing EF 45-50% - Stress test showed reversible apical/inferoseptal defects suspected of ischemia - Continue Lasix and aldactone - Daily weights - Strict I/Os Hx of Atrial Fibrillation - Currently afib, rate controlled - Was on coumadin previously, had a GI bleed in the past- will hold for now, cardiology consult pending - Trop 0.02 on admission Hypertension - Hold Nadolol 10mg daily Anxiety/Depression - Will hold xanax at this time due to AMS on admission Hypokalemia - resolved Deconditioning - continue with PT/OT GI/DVT ppx - Protonix 40mg IVP - SCDs Patient seen, case discussed with, and plan approved by attending physician, Dr. Das Objective - Vital Signs/Intake and Output Vital Signs (last 24 hours): Temp Pulse Resp BP Pulse Ox 98.8 F 85 20 118/67 94 L 09/04/17 06:00 09/04/17 10:25 09/04/17 06:00 09/04/17 10:26 09/04/17 06:00 Intake and Output: 09/04/17 09/04/17 06:59 18:59 Intake Total 440 Balance 440 - Medications Medications: Current Medications Aspirin (Ecotrin) 81 mg PO DAILY [facility] Last Admin: 09/04/17 10:25 Dose: 81 mg Azithromycin (Zithromax) 500 mg PO DAILY [facility] PRN Reason: Protocol Stop: 09/10/17 10:01 Last Admin: 09/04/17 10:25 Dose: 500 mg Furosemide (Lasix) 20 mg IVP DAILY [facility] Last Admin: 09/04/17 10:26 Dose: 20 mg Piperacillin Sod/Tazobactam Sod (Zosyn 2.25 Gm In 0.9% 100 Ml) 2.25 gm in 100 mls @ 100 mls/hr IVPB Q6 [facility] PRN Reason: Protocol Stop: 09/11/17 10:01 Last Admin: 09/04/17 06:35 Dose: 100 mls/hr Morphine Sulfate (Morphine) 1 mg IVP Q4H PRN PRN Reason: Pain, severe (8-10) Last Admin: 09/04/17 08:12 Dose: 1 mg Nadolol (Corgard) 10 mg PO DAILY [facility] Pantoprazole Sodium (Protonix Ec Tab) 40 mg PO DAILY [facility] Rifaximin (Xifaxan) 550 mg PO BID [facility] PRN Reason: Protocol Last Admin: 09/04/17 10:28 Dose: 550 mg Spironolactone (Aldactone) 100 mg PO DAILY [facility] - Labs Labs: 09/04/17 08:40 09/04/17 08:40 PT 13.6 Seconds (9.9-11.8) H 09/03/17 01:05 INR 1.26 (0.93-1.08) H 09/03/17 01:05 APTT 34.5 Seconds (23.7-30.8) H 09/03/17 01:05 <Fay Das - Last Filed: 09/04/17 15:45> Objective - Vital Signs/Intake and Output Vital Signs (last 24 hours): Temp Pulse Resp BP Pulse Ox 98 F 81 18 113/74 94 L 09/04/17 12:00 09/04/17 12:00 09/04/17 12:00 09/04/17 12:00 09/04/17 06:00 Intake and Output: 09/04/17 09/04/17 06:59 18:59 Intake Total 440 360 Output Total 1400 Balance 440 -1040 - Medications Medications: Current Medications Aspirin (Ecotrin) 81 mg PO DAILY [facility] Last Admin: 09/04/17 10:25 Dose: 81 mg Azithromycin (Zithromax) 500 mg PO DAILY [facility] PRN Reason: Protocol Stop: 09/10/17 10:01 Last Admin: 09/04/17 10:25 Dose: 500 mg Clopidogrel Bisulfate (Plavix) 75 mg PO DAILY [facility] Furosemide (Lasix) 20 mg IVP DAILY [facility] Last Admin: 09/04/17 10:26 Dose: 20 mg Piperacillin Sod/Tazobactam Sod (Zosyn 2.25 Gm In 0.9% 100 Ml) 2.25 gm in 100 mls @ 100 mls/hr IVPB Q6 [facility] PRN Reason: Protocol Stop: 09/11/17 10:01 Last Admin: 09/04/17 12:58 Dose: 100 mls/hr Sodium Chloride (Sodium Chloride 0.9%) 1,000 mls @ 50 mls/hr IV .Q20H [facility] Stop: 09/05/17 23:59 Morphine Sulfate (Morphine) 1 mg IVP Q4H PRN PRN Reason: Pain, severe (8-10) Last Admin: 09/04/17 13:24 Dose: 1 mg Nadolol (Corgard) 10 mg PO DAILY [facility] Pantoprazole Sodium (Protonix Ec Tab) 40 mg PO DAILY [facility] Rifaximin (Xifaxan) 550 mg PO BID [facility] PRN Reason: Protocol Last Admin: 09/04/17 10:28 Dose: 550 mg Spironolactone (Aldactone) 100 mg PO DAILY [facility] - Labs Labs: 09/04/17 08:40 09/04/17 08:40 PT 13.6 Seconds (9.9-11.8) H 09/03/17 01:05 INR 1.26 (0.93-1.08) H 09/03/17 01:05 APTT 34.5 Seconds (23.7-30.8) H 09/03/17 01:05 Attending/Attestation - Attestation I have personally seen and examined this patient.: Yes I have fully participated in the care of the patient.: Yes I have reviewed all pertinent clinical information, including history, physical exam and plan: Yes Notes (Text): I have seen and examined the patient at bedside. Agree with the above note with the following additions/ exceptions: Briefly this is 62 year old male with history of TRUJILLO, former smoker, former social alcohol drinker, HTN, CHF (EF~45- 50%), afib rate controlled not on anticoagulation due to GI bleed who was brought by his partner for evaluation of AMS and lethargy most likely secondary to hepatic encephalopathy secondary to cryptogenic cirrhosis and also found to have RLL CAP. His ammonia was 140 upon admission which is down to 20 now. He was refusing to get lactulose therefore rifaxamin was started. Patient is alert , awake and oriented X3. Hep panel negative. Discussed with GI. There is no abdominal tenderness. Abdomen is distended but not tense. Last paracentesis was in January 2017.Today his creatinine was noticed to be elevated. Will hold diuretics today and will repeat labs in am. Will continue zosyn and zithro for now. Anemia is stable. Yesterday he had non sustained Vtach. Also recently had positive stress test. Cardiology consult appreciated. Plan for possible cardiac cath outpatient vs inpatient. Patient remained asymptomatic. Electrolytes stable. Upon discharge patient will follow up with Dr Lew. Dr Fay Das
--- NOTE | 2017-09-04 13:52 | PN ---
DATE: 09/04/2017 SUBJECTIVE: I saw Mr. Lane this morning. 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 He is currently being followed by the hospitalist, as well as, Dr. Bravo Christensen. The patient is awake, alert, oriented, feeling significantly better. Indicates he has no chest pain; however, abdomen is somewhat tight because of ascites. This side still hurts a little bit due a fall. PHYSICAL EXAMINATION: VITAL SIGNS: I reviewed this patient's vital signs. HEENT: Noncontributory. LUNGS: Decreased breath sounds at base. HEART: Irregular rhythm. ABDOMEN: Protuberant due to ascites. LABORATORY RESULTS: Reviewed. H and H stable. Coagulation in the range, INR 1.25. Chemistry indicates normal transaminases except for mild elevation of AST. Alkaline phosphatase 161 and total bilirubin 3.7. Note that his ferritin is in the range of 230 with transferrin of 142.8 as indicated yesterday. Note that his iron level is 180 with percent saturation of 80. Elevated iron indices. As indicated yesterday, the patient diagnosis is cryptogenic cirrhosis with negative hepatitis serology. At this time, previous imaging studies initially entertained possibly this was a NAFLD, i.e., nonalcoholic fatty liver disease type of scenario and in fact even TRUJILLO. The patient's transferrin saturation increased since last time I saw him; however, I found out this morning that he has been taking a multivitamin with excess iron. He was advised to stop this as soon as possible. Note that transferrin saturation issue can be worked up as an outpatient. It is not clear at this point in time if this patient has hemochromatosis. Genetic tests have not been ordered and he needs quantification of liver iron in order to clarify the diagnoses. I believe this can be done as an outpatient. I reviewed this issue in detail with the patient at the bedside. Note that the therapeutic strategy depending what his diagnosis is either iron overload due to a genetic iron overload syndrome or fatty liver disease or with associated iron overload, iatrogenic due to multivitamin depending on the diagnoses. As of right now his diagnoses cryptogenic cirrhosis, in most cases cryptogenic cirrhosis is due to occult fatty liver disease . The patient has diagnosis of pneumonia being currently treated by Dr. Bravo Christensen with antibiotics. Continue on current regimen. Edgar Fuchs DO, PhD [facility]
[2017-09-04] MEDS: Sodium Chloride 0.9% 1,000 ML IV SCH (15:00)
--- NOTE | 2017-09-04 20:25 | PN ---
DATE: 09/04/2017 REASON FOR CONSULTATION AND FOLLOWUP: Nine beats of VT, history of decreased LV function, cardiomyopathy, nonalcoholic cirrhosis. SUBJECTIVE: The patient denies any chest pain, shortness of breath, or any palpitation. PHYSICAL EXAMINATION: VITAL SIGNS: As follows: Temperature is afebrile, heart rate is 81, and blood pressure is 113/74. HEENT: PERRLA. Extraocular muscles are intact. NECK: Supple. No carotid bruits or thyromegaly. CHEST: Clear to auscultation. HEART: S1 and S2 regular. ABDOMEN: Soft. EXTREMITIES: Clubbing and cyanosis negative. LABORATORY DATA: WBC of 7.8, hemoglobin of 12.6, hematocrit of 36.9, and platelet count of 149. Chemistry shows sodium of 140, potassium of 3.6, chloride of 102, carbon dioxide of 28, anion gap of 14, BUN of 26, and creatinine of 1.9. Total bilirubin 3.1, AST 56, ALT 34, troponin 0.01, total protein 8.7, albumin of 3.2, and albumin-globulin ratio 0.6. ASSESSMENT: Nine beats of ventricular tachycardia, nonalcoholic cirrhosis, stress test on 07/03/2017 found to be probably abnormal, except for myocardial perfusion study, reversible apical defect, suspicious ischemia, normal gated wall motion, and ejection fraction of 59%. The patient's echocardiogram 07/21/2017 does show ejection fraction 40% to 55%, trace aortic regurgitation, valve is calcified and displays decreased opening, moderate valvular aortic stenosis. RECOMMENDATIONS: Continue nadolol. Continue aspirin. We will start Plavix. We will start gentle hydration. Discussed with the patient reference cardiac catheterization. If the BUN and creatinine remain stable, we will proceed for cardiac catheterization. Nuclear scan and HIDA scans are negative for acute cholecystitis. Discussed with the patient. We will load with the Plavix. We will start gentle hydration as well. If BUN and creatinine remain stable, we will do cardiac catheterization tomorrow. We will start with the Plavix. We will also get PT because of elevated bilirubin. Thank you Dr. Das for providing us the opportunity in taking care of the patient, Eimlio Lane. Richa Fine MD
[2017-09-05] MEDS: Piperacillin/Tazobact 2.25gm 2.25 GM/100 ML BAG IVPB SCH ×3 (05:43→18:11)
[2017-09-05] MEDS: Morphine 2 mg/ml ISec IVP PRN ×4 (05:43→20:57)
[2017-09-05 06:49] LABS: BASO # 0.05 K/mm3 (0.0-2.0); BASO % 0.8 % (0.0-3.0); EOS # 0.2 (0.0-0.7); EOS % 3.4 % (1.5-5.0); GRAN # 3.23 (1.4-6.5); GRAN % 52.6 % (50.0-68.0); HEMATOCRIT 32.7 % (42.0-52.0); LYMPH # 1.8 (1.2-3.4); LYMPH % 28.7 % (22.0-35.0); MEAN CELL VOLUME 100.6 fl (80.0-105.0); MEAN CORPUSCULAR HEMOGLOBIN 33.8 pg (25.0-35.0); MEAN CORPUSCULAR HGB CONC 33.6 g/dl (31.0-37.0); MEAN PLATELET VOLUME 9.4 fl (7.0-11.0); MONO # 0.9 (0.1-0.6); MONO % 14.5 % (1.0-6.0); RED CELL DISTRIBUTION WIDTH 15.5 % (11.5-14.5); WHITE BLOOD COUNT 6.1 10^3/ul (4.5-11.0)
[2017-09-05 06:57] LABS: INR 1.2 (0.93-1.08)
[2017-09-05 07:14] LABS: ALB/GLOB RATIO 0.6 (1.1-1.8); BILIRUBIN,TOTAL 2.3 mg/dL (0.2-1.3); CALCIUM 8.5 mg/dL (8.4-10.5); MAGNESIUM 1.9 mg/dL (1.7-2.2); PHOSPHOROUS 3.4 mg/dL (2.5-4.5); POTASSIUM 3.5 mmol/L (3.6-5.0); TOTAL PROTEIN 7.5 g/dL (5.8-8.3)
[2017-09-05] MEDS ORDERED: Midazolam 2 MG/2 ML VIAL ONE ×2 (07:47→10:15)
[2017-09-05] MEDS ORDERED: Lidocaine 2% Inj (20ml) ONE (07:47)
[2017-09-05] MEDS ORDERED: Iodixanol 320 MG/ML 200 ML BOTTLE IV ONE (07:48)
[2017-09-05] MEDS ORDERED: Eptifibatide 20 mg/10mL Inj IVP ONE (10:35)
[2017-09-05] MEDS ORDERED: Iohexol 350mgl/ml 50 ML ONE (10:35)
[2017-09-05] MEDS: Sodium Chloride 0.9% 1,000 ML IV SCH (11:36)
--- NOTE | 2017-09-05 11:43 | CP.PCM.PN ---
<Bekah Hwang - Last Filed: 09/05/17 16:06> Subjective - Date & Time of Evaluation Date of Evaluation: 09/05/17 Time of Evaluation: 11:42 - Subjective Subjective: Hospitalist Service Progress Note: Patient seen and examined at bedside. Per nursing no acute events overnight. Patient is NPO for cardiac cath today. Still having pain on right side. No other complaints at this time. Denies headaches, dizziness, cp, palpitations, sob, urinary symptoms, changes in bowel habits. Objective - Vital Signs/Intake and Output Vital Signs (last 24 hours): Temp Pulse Resp BP Pulse Ox 97.8 F 96 H 21 105/72 97 09/05/17 11:20 09/05/17 11:35 09/05/17 11:35 09/05/17 11:35 09/05/17 06:00 Intake and Output: 09/05/17 09/05/17 06:59 18:59 Intake Total 200 Balance 200 - Medications Medications: Current Medications Aspirin (Ecotrin) 81 mg PO DAILY [facility] Last Admin: 09/05/17 08:13 Dose: 81 mg Azithromycin (Zithromax) 500 mg PO DAILY [facility] PRN Reason: Protocol Stop: 09/10/17 10:01 Last Admin: 09/04/17 10:25 Dose: 500 mg Clopidogrel Bisulfate (Plavix) 75 mg PO DAILY [facility] Last Admin: 09/05/17 08:13 Dose: 75 mg Furosemide (Lasix) 20 mg IVP DAILY [facility] Last Admin: 09/04/17 10:26 Dose: 20 mg Piperacillin Sod/Tazobactam Sod (Zosyn 2.25 Gm In 0.9% 100 Ml) 2.25 gm in 100 mls @ 100 mls/hr IVPB Q6 [facility] PRN Reason: Protocol Stop: 09/11/17 10:01 Last Admin: 09/05/17 05:43 Dose: 100 mls/hr Sodium Chloride (Sodium Chloride 0.9%) 1,000 mls @ 50 mls/hr IV .Q20H [facility] Stop: 09/05/17 23:59 Last Admin: 09/05/17 11:36 Dose: 50 mls/hr Morphine Sulfate (Morphine) 1 mg IVP Q4H PRN PRN Reason: Pain, severe (8-10) Last Admin: 09/05/17 05:43 Dose: 1 mg Nadolol (Corgard) 10 mg PO DAILY [facility] Pantoprazole Sodium (Protonix Ec Tab) 40 mg PO DAILY [facility] Rifaximin (Xifaxan) 550 mg PO BID [facility] PRN Reason: Protocol Last Admin: 09/04/17 17:59 Dose: 550 mg Spironolactone (Aldactone) 100 mg PO DAILY [facility] - Labs Labs: 09/05/17 06:41 09/05/17 06:41 PT 13.0 Seconds (9.9-11.8) H 09/05/17 06:41 INR 1.20 (0.93-1.08) H 09/05/17 06:41 APTT 34.5 Seconds (23.7-30.8) H 09/03/17 01:05 - Constitutional Appears: Non-toxic, No Acute Distress - Head Exam Head Exam: ATRAUMATIC, NORMAL INSPECTION - Eye Exam Eye Exam: EOMI, Normal appearance Pupil Exam: NORMAL ACCOMODATION - ENT Exam ENT Exam: Mucous Membranes Moist - Neck Exam Neck Exam: Full ROM - Respiratory Exam Respiratory Exam: Rhonchi, NORMAL BREATHING PATTERN. absent: Rales, Wheezes - Cardiovascular Exam Cardiovascular Exam: REGULAR RHYTHM, +S1, +S2 - GI/Abdominal Exam GI & Abdominal Exam: Distended, Soft, Normal Bowel Sounds. absent: Guarding, Rigid, Tenderness - Rectal Exam Rectal Exam: Deferred - Extremities Exam Extremities Exam: Full ROM, Normal Inspection. absent: Calf Tenderness - Back Exam Back Exam: NORMAL INSPECTION - Neurological Exam Neurological Exam: Alert, Awake, Oriented x3 - Psychiatric Exam Psychiatric exam: Normal Affect, Normal Mood - Skin Skin Exam: Dry, Normal Color, Warm Assessment and Plan - Assessment and Plan (Free Text) Assessment: Patient is a 62 year old male with past medical history of Non-alcoholic liver cirrhosis, HTN, GERD, CHF (EF 45-50%) presents to [facility] for altered mental status and lethargy. Patient found to have ammonia level of 140. Currently being treated for hepatic encephalopathy and community acquired pneumonia. Plan: 1. Altered Mental Status 2/2 Hepatic encephalopathy - Currently Afebrile, AAOx3 - Mentation back to baseline - Ammonia level within normal limits - CT head: negative for acute pathology - Fall precautions - PT eval ordered 2. Cryptogenic cirrhosis (due to possible iron overload) - Hepatitis panel negative - AST/ALT normalized; T bili 2.3 - Lasix 20mg IV daily on hold - Morphine 1mg Q4hr prn severe pain - Continue Aldactone 100mg daily - GI consulted, f/u recommendations - Will need outpatient workup for hemachromatosis 3. Community Acquired Pneumonia, Right Lower Lobe (rule out SBP) - Continue Azithromycin and Zosyn - Continue Rifaximin - Urine legionella ab negative - Urine strep ag pending - Blood cx showing no growth in 3 days, urine cx showing no growth - F/U sputum cx - ID consulted, f/u recommendations 4. Anemia (likely secondary to chronic disease) - Hgb 11.0 (stable) - No active signs of bleeding at this time - Will continue to monitor 5. Hx of Congestive Heart Failure (systolic) - Last echo 06/2017 showing EF 45-50% - Stress test showed reversible apical/inferoseptal defects suspected of ischemia - Lasix held, continue aldactone - NPO for cardiac cath today - Daily weights - Strict I/Os 6. Hx of Atrial Fibrillation - Currently afib, rate controlled - Was on coumadin previously, had a GI bleed in the past - Not currently on anticoagulation - Trop negative x 3 7. Hypertension - Continue Nadolol 10mg daily 8. Anxiety/Depression - Will hold xanax at this time 9. Hypokalemia - Continue to monitor GI/DVT ppx - Protonix 40mg IVP - SCDs <Felicita Rosales - Last Filed: 09/05/17 17:53> Objective - Vital Signs/Intake and Output Vital Signs (last 24 hours): Temp Pulse Resp BP Pulse Ox 98.3 F 89 18 120/68 97 09/05/17 17:05 09/05/17 17:05 09/05/17 17:05 09/05/17 17:05 09/05/17 06:00 Intake and Output: 09/05/17 09/05/17 06:59 18:59 Intake Total 200 Balance 200 - Medications Medications: Current Medications Aspirin (Ecotrin) 81 mg PO DAILY [facility] Last Admin: 09/05/17 08:13 Dose: 81 mg Azithromycin (Zithromax) 500 mg PO DAILY [facility] PRN Reason: Protocol Stop: 09/10/17 10:01 Last Admin: 09/05/17 11:56 Dose: 500 mg Clopidogrel Bisulfate (Plavix) 75 mg PO DAILY [facility] Last Admin: 09/05/17 08:13 Dose: 75 mg Furosemide (Lasix) 20 mg IVP DAILY [facility] Last Admin: 09/04/17 10:26 Dose: 20 mg Piperacillin Sod/Tazobactam Sod (Zosyn 2.25 Gm In 0.9% 100 Ml) 2.25 gm in 100 mls @ 100 mls/hr IVPB Q6 [facility] PRN Reason: Protocol Stop: 09/11/17 10:01 Last Admin: 09/05/17 13:18 Dose: 100 mls/hr Sodium Chloride (Sodium Chloride 0.9%) 1,000 mls @ 50 mls/hr IV .Q20H [facility] Stop: 09/05/17 23:59 Last Admin: 09/05/17 11:36 Dose: 50 mls/hr Morphine Sulfate (Morphine) 1 mg IVP Q4H PRN PRN Reason: Pain, severe (8-10) Last Admin: 09/05/17 15:58 Dose: 1 mg Nadolol (Corgard) 10 mg PO DAILY [facility] Last Admin: 09/05/17 11:56 Dose: 10 mg Pantoprazole Sodium (Protonix Ec Tab) 40 mg PO DAILY [facility] Last Admin: 09/05/17 11:56 Dose: 40 mg Rifaximin (Xifaxan) 550 mg PO BID [facility] PRN Reason: Protocol Last Admin: 09/05/17 11:57 Dose: 550 mg Spironolactone (Aldactone) 100 mg PO DAILY [facility] Last Admin: 09/05/17 11:56 Dose: 100 mg - Labs Labs: 09/05/17 17:00 09/05/17 17:00 PT 13.0 Seconds (9.9-11.8) H 09/05/17 06:41 INR 1.20 (0.93-1.08) H 09/05/17 06:41 APTT 34.5 Seconds (23.7-30.8) H 09/03/17 01:05 Attending/Attestation - Attestation I have personally seen and examined this patient.: Yes I have fully participated in the care of the patient.: Yes I have reviewed all pertinent clinical information, including history, physical exam and plan: Yes Notes (Text): 09/05/17 17:46 Attending note; Patient seen and examined with resident. Status post cardiac cath and bare metal stent placement. Patient is a 62 year old male with history of TRUJILLO, former smoker, alcohol use, HTN, CHF (EF~45-50%), afib rate controlled not on anticoagulation due to GI bleed who was brought by his partner for evaluation of AMS and lethargy most likely secondary to hepatic encephalopathy and also found to have RLL CAP. Currently patient is alert, awake. Tolerating diet well. Mild abdominal distention. catheter Site is clean. No hematoma. Hep panel negative. CT abdomen shows abdominal and pelvic ascites /splenomegaly nodular liver .HIDA was negative for acute cholecystitis . Discussed with GI. There is no abdominal tenderness. Abdomen is distended but not tense. Continue spironolactone. Will continue zosyn and zithro for pneumonia. Anemia is stable. non sustained Vtach. Patient remained asymptomatic. Electrolytes stable. PT evaluation requested. Possible discharge home tomorrow if clinically stable. Upon discharge patient will follow up with Dr. Lew. Patient needs close follow-up with GI upon discharge.
[2017-09-05] MEDS: Pantoprazole 40 mg EC Tab PO SCH (11:56)
[2017-09-05] MEDS: Potassium Chloride 20 mEq ER Tab PO ONE ×2 (13:19→13:29)
--- NOTE | 2017-09-05 13:21 | PN ---
DATE: 09/05/2017 SUBJECTIVE: I saw Mr. Lane this morning. He is a 62-year-old white male, known to consultants with a past medical history of portal hypertension, esophageal varices, upper GI bleed, cryptogenic cirrhosis, etc. The patient was admitted with a change in mental status due to a quite old pneumonia, which has been currently treated with antibiotics successfully. At the bedside this morning, the patient has the mental status which is awake, alert, oriented, and we had a long discussion regarding the patient's clinical course. As indicated previously, this patient had incomplete workup due to some insurance issues and the diagnosis previously entertained was possibility of TRUJILLO or nonalcoholic fatty liver disease, cryptogenic cirrhosis and due to his mildly elevated transferrin saturation , there was also possibility of an iron overload component. I reviewed this issue with the patient on several occasions. The patient was also given a copy of his most pertinent lab results relative to the later. I think at this particular time point it is inappropriate to do further workup on liver disease, which can be accomplished on outpatient basis with his [place] promotions manager. Therefore, the reason why I gave him a copy of his most recent laboratory results. Note that the patient is still on antibiotics, though possibly SBP exists since I known this patient's clinical course, I think the amount of pain what will be experienced with SBP was not experienced by this patient only slight tightness due to ascites, and tenderness over a fall site. I did mention a paracentesis should be accomplished on several occasions. Regardless, the patient was adequately treated with medications to cover the later. New issue came up which is cardiac related. The patient was seen by Dr. Fine who is planning out taking the patient to cardiac catheterization lab. At this particular time point, I will sign off the case since it was not much to contribute. Again, this patient's liver disease will be worked up on an outpatient basis by his promotions manager who is located in [place], [place]. The patient is aware of his presumed diagnosis of liver disease. This again incorporates possibility of either nonalcoholic fatty liver disease with iron overload or possibly a hemochromatosis component which could be clarified by general exam and liver biopsy. The patient was advised to stop his multivitamin with extra iron. This was probably compounding the degree of liver disease that he currently has. Edgar Fuchs DO, [facility]
--- NOTE | 2017-09-05 14:12 | CP.PCM.PN ---
Subjective - Date & Time of Evaluation Date of Evaluation: 09/05/17 Time of Evaluation: 12:00 - Subjective Subjective: Comfortable, not in distress, afebrile. Objective - Vital Signs/Intake and Output Vital Signs (last 24 hours): Temp Pulse Resp BP Pulse Ox 98.7 F 81 20 108/67 97 09/05/17 06:00 09/05/17 06:00 09/05/17 06:00 09/05/17 06:00 09/05/17 06:00 Intake and Output: 09/05/17 09/05/17 06:59 18:59 Intake Total 200 Balance 200 - Medications Medications: Current Medications Aspirin (Ecotrin) 81 mg PO DAILY [facility] Last Admin: 09/05/17 08:13 Dose: 81 mg Azithromycin (Zithromax) 500 mg PO DAILY [facility] PRN Reason: Protocol Stop: 09/10/17 10:01 Last Admin: 09/04/17 10:25 Dose: 500 mg Clopidogrel Bisulfate (Plavix) 75 mg PO DAILY [facility] Last Admin: 09/05/17 08:13 Dose: 75 mg Furosemide (Lasix) 20 mg IVP DAILY [facility] Last Admin: 09/04/17 10:26 Dose: 20 mg Piperacillin Sod/Tazobactam Sod (Zosyn 2.25 Gm In 0.9% 100 Ml) 2.25 gm in 100 mls @ 100 mls/hr IVPB Q6 [facility] PRN Reason: Protocol Stop: 09/11/17 10:01 Last Admin: 09/05/17 05:43 Dose: 100 mls/hr Sodium Chloride (Sodium Chloride 0.9%) 1,000 mls @ 50 mls/hr IV .Q20H [facility] Stop: 09/05/17 23:59 Last Admin: 09/04/17 15:00 Dose: Not Given Morphine Sulfate (Morphine) 1 mg IVP Q4H PRN PRN Reason: Pain, severe (8-10) Last Admin: 09/05/17 05:43 Dose: 1 mg Nadolol (Corgard) 10 mg PO DAILY [facility] Pantoprazole Sodium (Protonix Ec Tab) 40 mg PO DAILY [facility] Rifaximin (Xifaxan) 550 mg PO BID [facility] PRN Reason: Protocol Last Admin: 09/04/17 17:59 Dose: 550 mg Spironolactone (Aldactone) 100 mg PO DAILY [facility] - Labs Labs: 09/05/17 06:41 09/05/17 06:41 PT 13.0 Seconds (9.9-11.8) H 09/05/17 06:41 INR 1.20 (0.93-1.08) H 09/05/17 06:41 APTT 34.5 Seconds (23.7-30.8) H 09/03/17 01:05 - Constitutional Appears: Non-toxic, No Acute Distress - Head Exam Head Exam: NORMAL INSPECTION - ENT Exam ENT Exam: Mucous Membranes Moist - Neck Exam Neck Exam: absent: Meningismus - Respiratory Exam Respiratory Exam: Decreased Breath Sounds - Cardiovascular Exam Cardiovascular Exam: +S1, +S2 - GI/Abdominal Exam GI & Abdominal Exam: Soft. absent: Tenderness Assessment and Plan - Assessment and Plan (Free Text) Plan: Assessment R/O community-acquired pneumonia R/O spontaneous bacterial peritonitis non-alocholic steatohepatitis with liver cirrhosis and ascites chronic renal failure history of atrial fibrillation Plan Continue Zosyn and Zithromax day 5; patient can be switched to PO Cefpodoxime 200 mg BID another 3-5 days and Zithromax 500 mg daily for another 3 days when ready for discharge ideally the patient should have paracentesis
--- NOTE | 2017-09-05 16:55 | PN ---
DATE: 09/05/2017 REASON FOR CONSULTATION AND FOLLOWUP: Nine beats of VT, decreased LV function, non-alcoholic cirrhosis, abnormal stress test. SUBJECTIVE: The patient denies any chest pain, shortness of breath, any palpitation. The patient underwent cardiac catheterization and status post PTCA of RCA. Denies any chest pain, shortness of breath or any palpitation. PHYSICAL EXAMINATION: VITAL SIGNS: Temperature afebrile, heart rate 81, blood pressure 108/67. HEENT: PERRLA. Extraocular muscles are intact. NECK: Supple. No carotid bruits, thyromegaly. CHEST: Clear to auscultation. HEART: S1 and S2 regular. ABDOMEN: Soft. EXTREMITIES: Clubbing and cyanosis negative. LABORATORY DATA: Blood workup as follows: WBC 6.9, hemoglobin of 11, hematocrit of 32.7, and platelet count of 122. Chemistry shows sodium of 139, potassium of 3.5, chloride of 104, carbon dioxide of 28, anion gap of 11, BUN of 25, and creatinine of 1.5. IMPRESSION AND PLAN: A 62-year-old male with past medical history significant for non-alcoholic cirrhosis, right inguinal hernia, underwent stress test on 07/03/2017 with perfusion apical reversible defect, suspicious ischemia, ejection fraction of 59%. The patient had echo on 06/23/2017, ejection fraction 40% to 45%, trace aortic regurgitation. The patient underwent cardiac catheterization that revealed left main small caliber vessels, bifurcated left anterior descending and circumflex. Left anterior descending mid 50% stenosis, circumflex. no flow obstructive stenosis noted. Right coronary artery is a moderate caliber vessels, mid 80% stenosis, ejection fraction 55%. ATP within the range of 20. The patient subsequently underwent percutaneous transluminal coronary angioplasty with bare-metal stent ( the reason for bare-metal stent because of the patient's right large inguinal hernia, history of non-alcoholic cirrhosis, low platelets, the patient may not continue fci dual-antiplatelet therapy, so bare-metal stent was placed). So the patient can come off of the aspirin and Plavix after 4 weeks and the patient can go for hernia surgery. Interim continue gentle diuretics. Continue Nadolol. Follow up platelet count and for now continue aspirin, Plavix and resume Nadolol. Resume diet. The patient has a baseline creatinine of 1.5 today, only 70 mL contrast used. Continue IV fluids and followup blood workup in the morning and 06:00 p.m. The patient complained right upper quadrant pain, most likely secondary to inguinal hernia. The patient has large inguinal hernia. HIDA scan is negative. Thank you, Dr. Rosales for providing an opportunity in taking care of patient, Domingo Jhaveri. We will follow with you. Richa Fine MD cc: Dr. Fay Das, Dr. Rosales.
[2017-09-05 17:02] LABS: BASO # 0.03 K/mm3 (0.0-2.0); BASO % 0.4 % (0.0-3.0); EOS % 0.6 % (1.5-5.0); GRAN # 4.91 (1.4-6.5); GRAN % 69.5 % (50.0-68.0); HEMATOCRIT 33.1 % (42.0-52.0); LYMPH # 1.2 (1.2-3.4); LYMPH % 16.9 % (22.0-35.0); MEAN CELL VOLUME 100.3 fl (80.0-105.0); MEAN CORPUSCULAR HEMOGLOBIN 34.2 pg (25.0-35.0); MEAN CORPUSCULAR HGB CONC 34.1 g/dl (31.0-37.0); MEAN PLATELET VOLUME 9.6 fl (7.0-11.0); MONO # 0.9 (0.1-0.6); MONO % 12.6 % (1.0-6.0); RED CELL DISTRIBUTION WIDTH 15.1 % (11.5-14.5); WHITE BLOOD COUNT 7.1 10^3/ul (4.5-11.0)
[2017-09-05 17:11] LABS: BLOOD UREA NITROGEN 25 mg/dL (7-21); CALCIUM 8.6 mg/dL (8.4-10.5); CARBON DIOXIDE 24 mmol/L (21-33); CHLORIDE 105 mmol/L (98-107); GFR AFRICAN-AMERICAN > 60; GLUCOSE,RANDOM 139 mg/dL (70-110); SODIUM 136 mmol/L (132-148)
--- NOTE | 2017-09-05 17:28 | CARD ---
APPROVED REPORT Procedure(s) performed: Left Heart Catheterization PTCA with Stenting of Mid RCA with BMS HISTORY The patient is a 62 year-old male with a history of : most recent EF: 50%. (EF Method: Echocardiogram), previous CHF, tobacco history() : The patient is a former smoker , hypertension , Hx of Non alcholic Cirrhosis, thrombocytopenia, Large Right ingunial Hernia.Having frequent PVCs and renal insufficiency with base line Creatinine 1.5.. INDICATION The indication(s) include : positive stress test, arrhythmia, dyspnea. CASE TECHNIQUE The patient was brought electively to the Cardiac Catheterization Laboratory in a fasting state and was prepped and draped in a sterile manner. The right femoral groin was infiltrated with 2% Lidocaine subcutaneous anesthesia. A 6 Fr x 11 cm Lyndsay sheath was inserted into the right femoral artery without difficulty. Coronary angiography was performed using coronary diagnostic catheters. The left coronary system was accessed and visualized with a Diagnostic ,5 Fr JL 4 catheter. The right coronary system was accessed and visualized with a Diagnostic ,5 Fr 3DRC catheter. The left ventricle was accessed and visualized with a 5 Fr Pigtail 145 (Angled) catheter. Left ventricular/Aortic Valve gradient assessed on pullback. Left ventriculogram was performed in STINSON projection. Closure device was deployed with a 6 Fr / 7 Fr MynxGrip without any complications. The patient tolerated the procedure well and there were no complications associated with the procedure. Vessel Analysis The patient's coronary anatomy is right dominant. The left main coronary artery is a medium size vessel with diffuse calcification noted throughout this vessel and without significant stenosis. The left main bifurcates to the left anterior descending and circumflex. The left anterior descending artery is a medium size vessel with diffuse calcification noted throughout this vessel and without significant stenosis. There is a 50% stenosis in the mid segment. The circumflex artery is a large size vessel with intimal irregularities. The first obtuse marginal branch is a large size vessel with diffuse calcification noted throughout this vessel and without significant stenosis. The right coronary artery is a medium size vessel with diffuse calcification noted throughout this vessel and without significant stenosis. There is a 80% stenosis in the mid segment. Ostial right has 20% stenosis The right posterior descending artery is a medium size vessel with diffuse calcification noted throughout this vessel and without significant stenosis. The right posterolateral branch is a medium size vessel . Left Ventricle The left ventricle is normal in size with normal contractility. There was no cardiomyopathy. The left ventricular ejection fraction is estimated to be 55-60%. The left ventricular end diastolic pressure is 18 mmHg. There was no gradient across the aortic valve upon pullback. PCI Technique Lesion Anticoagulation was achieved with Heparin. Percutaneous coronary intervention was performed on the mid right coronary artery. The lesion stenosis prior to intervention was 80% with ABBEY 2 flow. A 6 Fr 3DRC SH Guide Catheter was used to engage the ostium. A 0.014 x 182 cm Luge Interventional Guidewire was used to cross the lesion. STENT DEPLOYMENT A bare metal stent 2.75 x 12 mm Vision BMS was inserted and inflated up to 9.00atm for 14seconds. POST STENT DEPLOYMENT BALLOON DILATION A Balloon catheter 3.0 x 8 mm Trek RX NC was inserted and inflated up to 12.00atm for 10seconds. Final angiography reveals 0 % stenosis with ABBEY 3 flow. Conclusion One vessel critical Mid RCA Disease. Moderate Mid LAd diz. 50% Preserved Lv Fx. EF-55-60%, EDP-18 mmof hg. Succesful PTCA with BMS ( BMS used B/c pt has thrombocytopenia secondary to Non alcoholic Cirrosis and large right ingunial Hernia , which may required soon syrgical intervention) .so pt is not a candidate for jail Dual anti platelets therapy. Recommendations Aggressive Medical TherapyCardiac Risk Reduction Program ASA and Plavix mandatory for one month then baby asa alone pt can have Hernia surgery after one month off plavix. CC; Drs. Bishop ? Karthik.
[2017-09-06] MEDS: Piperacillin/Tazobact 2.25gm 2.25 GM/100 ML BAG IVPB SCH ×5 (01:15→23:00)
[2017-09-06] MEDS: Morphine 2 mg/ml ISec IVP PRN ×5 (01:15→20:23)
[2017-09-06 07:16] LABS: BASO # 0.06 K/mm3 (0.0-2.0); BASO % 0.7 % (0.0-3.0); EOS # 0.2 (0.0-0.7); EOS % 2.6 % (1.5-5.0); GRAN # 5.46 (1.4-6.5); GRAN % 63.3 % (50.0-68.0); HEMATOCRIT 31.5 % (42.0-52.0); LYMPH # 1.8 (1.2-3.4); LYMPH % 21.4 % (22.0-35.0); MEAN CELL VOLUME 101.3 fl (80.0-105.0); MEAN CORPUSCULAR HEMOGLOBIN 34.1 pg (25.0-35.0); MEAN CORPUSCULAR HGB CONC 33.7 g/dl (31.0-37.0); MEAN PLATELET VOLUME 9.4 fl (7.0-11.0); RED CELL DISTRIBUTION WIDTH 15.3 % (11.5-14.5); WHITE BLOOD COUNT 8.6 10^3/ul (4.5-11.0)
[2017-09-06 07:27] LABS: ALB/GLOB RATIO 0.6 (1.1-1.8); BILIRUBIN,TOTAL 2.9 mg/dL (0.2-1.3); CALCIUM 8.5 mg/dL (8.4-10.5); MAGNESIUM 1.9 mg/dL (1.7-2.2); TOTAL PROTEIN 7.4 g/dL (5.8-8.3)
[2017-09-06] MEDS: Pantoprazole 40 mg EC Tab PO SCH (09:26)
--- NOTE | 2017-09-06 11:14 | CP.PCM.PN ---
<Bekah Hwang - Last Filed: 09/06/17 13:29> Subjective - Date & Time of Evaluation Date of Evaluation: 09/06/17 Time of Evaluation: 11:13 - Subjective Subjective: Hospitalist Service Progress Note: Patient seen and examined at bedside. Per nursing no acute events overnight. S/ P cardiac cath with bare metal stent placement yesterday. Patient is doing well , still having right sided pain. Offers no other complaints at this time. Patient is concerned about multiple comorbities. Denies headaches, dizziness, cp , palpitations, sob, abdominal pain, urinary symptoms. Objective - Vital Signs/Intake and Output Vital Signs (last 24 hours): Temp Pulse Resp BP Pulse Ox 98.9 F 132 H 19 146/81 95 09/06/17 06:00 09/06/17 10:00 09/06/17 06:00 09/06/17 09:27 09/06/17 06:00 Intake and Output: 09/06/17 09/06/17 06:59 18:59 Intake Total 120 Output Total 0 Balance 120 - Medications Medications: Current Medications Aspirin (Ecotrin) 81 mg PO DAILY [facility] Last Admin: 09/06/17 09:28 Dose: 81 mg Azithromycin (Zithromax) 500 mg PO DAILY [facility] PRN Reason: Protocol Stop: 09/10/17 10:01 Last Admin: 09/06/17 09:21 Dose: 500 mg Clopidogrel Bisulfate (Plavix) 75 mg PO DAILY [facility] Last Admin: 09/06/17 09:27 Dose: 75 mg Furosemide (Lasix) 20 mg IVP DAILY [facility] Last Admin: 09/04/17 10:26 Dose: 20 mg Piperacillin Sod/Tazobactam Sod (Zosyn 2.25 Gm In 0.9% 100 Ml) 2.25 gm in 100 mls @ 100 mls/hr IVPB Q6 [facility] PRN Reason: Protocol Stop: 09/11/17 10:01 Last Admin: 09/06/17 05:58 Dose: 100 mls/hr Nadolol (Corgard) 10 mg PO DAILY [facility] Last Admin: 09/06/17 09:27 Dose: 10 mg Pantoprazole Sodium (Protonix Ec Tab) 40 mg PO DAILY [facility] Last Admin: 09/06/17 09:26 Dose: 40 mg Rifaximin (Xifaxan) 550 mg PO BID [facility] PRN Reason: Protocol Last Admin: 09/06/17 09:26 Dose: 550 mg Spironolactone (Aldactone) 100 mg PO DAILY [facility] Last Admin: 09/06/17 09:26 Dose: 100 mg - Labs Labs: 09/06/17 05:00 09/06/17 06:59 PT 13.0 Seconds (9.9-11.8) H 09/05/17 06:41 INR 1.20 (0.93-1.08) H 09/05/17 06:41 APTT 34.5 Seconds (23.7-30.8) H 09/03/17 01:05 - Constitutional Appears: Non-toxic, No Acute Distress - Head Exam Head Exam: ATRAUMATIC, NORMAL INSPECTION - Eye Exam Eye Exam: EOMI, Scleral icterus Pupil Exam: NORMAL ACCOMODATION - ENT Exam ENT Exam: Mucous Membranes Moist - Neck Exam Neck Exam: Full ROM - Respiratory Exam Respiratory Exam: Decreased Breath Sounds, NORMAL BREATHING PATTERN. absent: Rhonchi, Wheezes, Respiratory Distress - Cardiovascular Exam Cardiovascular Exam: Irregular Rhythm, +S1, +S2 - GI/Abdominal Exam GI & Abdominal Exam: Distended, Soft. absent: Guarding, Rigid, Tenderness, Rebound - Exam Additional comments: No hematoma noted on Groin access site - Extremities Exam Extremities Exam: Normal Inspection - Back Exam Back Exam: NORMAL INSPECTION - Neurological Exam Neurological Exam: Alert, Awake, Oriented x3 - Psychiatric Exam Psychiatric exam: Anxious, Normal Affect - Skin Skin Exam: Dry, Normal Color, Warm Assessment and Plan - Assessment and Plan (Free Text) Assessment: Patient is a 62 year old male with past medical history of Non-alcoholic liver cirrhosis, HTN, GERD, CHF (EF 45-50%) [place] [facility] altered mental status and lethargy. Patient found to have ammonia level of 140. Currently being treated for hepatic encephalopathy and community acquired pneumonia. Plan: 1. S/P Cardiac Catherization with bare metal stent placement - Stress test showed reversible apical/inferoseptal defects suspected of ischemia - PTCA of RCA done yesterday, tolerated procedure well - Cr level 1.5 today, stable - Will need to be on ASA and Plavix for 4 weeks 2. R large Inguinal Hernia - Hernia is reducible on exam - Patient to follow up with general surgery as outpatient - Will need to be on ASA and Plavix for at least 4 weeks 3. Altered Mental Status 2/2 Hepatic encephalopathy - Currently Afebrile, AAOx3 - Mentation back to baseline - Ammonia level within normal limits - CT head: negative for acute pathology - Fall precautions - PT eval ordered, recommending NONA for disposition 3. 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 Community Acquired Pneumonia, Right Lower Lobe (rule out SBP) - Continue Azithromycin and Zosyn - Continue Rifaximin - Urine strep/legionella ab negative - Blood cx showing no growth in 3 days, urine cx showing no growth - F/U sputum cx - ID consulted, f/u recommendations - Patient asking for pneumovax and flu vaccine; can get both as outpatient after completing course of antibiotics 6. Anemia (likely secondary to chronic disease) - Hgb 10.6 (stable) - No active signs of bleeding at this time - Will continue to monitor 7. Hx of Congestive Heart Failure (systolic) - Last echo 06/2017 showing EF 45-50% - Stress test showed reversible apical/inferoseptal defects suspected of ischemia - Lasix held, continue aldactone - NPO for cardiac cath today - Daily weights - Strict I/Os 8. Hx of Atrial Fibrillation - Currently afib - Was on coumadin previously, had a GI bleed in the past - Not currently on anticoagulation - Trop negative x 3 - Patient went into Afib with RVR during ambulation - EKG ordered - Recieved Cardizem 20mg IV, continue Cardizem 30mg QID - Continue to monitor 9. Hypertension - Continue Nadolol 10mg daily 10. Anxiety/Depression - Will hold xanax at this time 11. Hypokalemia (resolved) - Continue to monitor GI/DVT ppx - Protonix 40mg PO - SCDs <Felicita Rosales - Last Filed: 09/06/17 14:56> Objective - Vital Signs/Intake and Output Vital Signs (last 24 hours): Temp Pulse Resp BP Pulse Ox 97.2 F L 102 H 19 92/49 L 95 09/06/17 12:00 09/06/17 12:00 09/06/17 12:00 09/06/17 13:02 09/06/17 06:00 Intake and Output: 09/06/17 09/06/17 06:59 18:59 Intake Total 120 Output Total 0 Balance 120 - Medications Medications: Current Medications Aspirin (Ecotrin) 81 mg PO DAILY [facility] Last Admin: 09/06/17 09:28 Dose: 81 mg Azithromycin (Zithromax) 500 mg PO DAILY [facility] PRN Reason: Protocol Stop: 09/10/17 10:01 Last Admin: 09/06/17 09:21 Dose: 500 mg Clopidogrel Bisulfate (Plavix) 75 mg PO DAILY [facility] Last Admin: 09/06/17 09:27 Dose: 75 mg Diltiazem HCl (Cardizem) 30 mg PO QID [facility] Last Admin: 09/06/17 13:02 Dose: Not Given Furosemide (Lasix) 20 mg IVP DAILY [facility] Last Admin: 09/04/17 10:26 Dose: 20 mg Piperacillin Sod/Tazobactam Sod (Zosyn 2.25 Gm In 0.9% 100 Ml) 2.25 gm in 100 mls @ 100 mls/hr IVPB Q6 [facility] PRN Reason: Protocol Stop: 09/11/17 10:01 Last Admin: 09/06/17 12:03 Dose: 100 mls/hr Morphine Sulfate (Morphine) 1 mg IVP Q4H PRN PRN Reason: Pain, moderate (4-7) Nadolol (Corgard) 10 mg PO DAILY [facility] Last Admin: 09/06/17 09:27 Dose: 10 mg Oxycodone HCl (Oxycodone Immediate Release Tab) 5 mg PO Q6H PRN PRN Reason: Pain, moderate (4-7) Pantoprazole Sodium (Protonix Ec Tab) 40 mg PO DAILY [facility] Last Admin: 09/06/17 09:26 Dose: 40 mg Rifaximin (Xifaxan) 550 mg PO BID [facility] PRN Reason: Protocol Last Admin: 09/06/17 09:26 Dose: 550 mg Spironolactone (Aldactone) 100 mg PO DAILY [facility] Last Admin: 09/06/17 09:26 Dose: 100 mg - Labs Labs: 09/06/17 05:00 09/06/17 06:59 PT 13.0 Seconds (9.9-11.8) H 09/05/17 06:41 INR 1.20 (0.93-1.08) H 09/05/17 06:41 APTT 34.5 Seconds (23.7-30.8) H 09/03/17 01:05 Attending/Attestation - Attestation I have personally seen and examined this patient.: Yes I have fully participated in the care of the patient.: Yes I have reviewed all pertinent clinical information, including history, physical exam and plan: Yes Notes (Text): 09/06/17 14:43 Attending note; Patient seen and examined with resident. Patient is a 62 year old male with history of TRUJILLO, former smoker, alcohol use, HTN, CHF (EF~45-50%), afib rate controlled not on anticoagulation due to GI bleed who was brought by his partner for evaluation of AMS and lethargy most likely secondary to hepatic encephalopathy and also found to have RLL CAP. Status post cardiac cath and bare metal stent placement in RCA. CT abdomen shows abdominal and pelvic ascites /splenomegaly nodular liver .HIDA was negative for acute cholecystitis . Discussed with GI. There is no abdominal tenderness. Abdomen is distended but not tense. Continue spironolactone. Will continue zosyn and zithromycin for pneumonia. can switch to po Zithromax and cefpodoxime per ID. Anemia is stable. PT evaluation appreciated. PT is recommending subacute rehabilitation. Upon discharge patient will follow up with Dr. Lew. case discussed with PMD in detail. Patient needs close follow-up with GI upon discharge.
--- NOTE | 2017-09-06 12:35 | CP.PCM.PN ---
Subjective - Date & Time of Evaluation Date of Evaluation: 09/06/17 Time of Evaluation: 10:40 - Subjective Subjective: Comfortable, not in distress, afebrile. Objective - Vital Signs/Intake and Output Vital Signs (last 24 hours): Temp Pulse Resp BP Pulse Ox 98.9 F 99 H 19 120/62 95 09/06/17 06:00 09/06/17 06:00 09/06/17 06:00 09/06/17 06:00 09/06/17 06:00 Intake and Output: 09/06/17 09/06/17 06:59 18:59 Intake Total 120 Output Total 0 Balance 120 - Medications Medications: Current Medications Aspirin (Ecotrin) 81 mg PO DAILY [facility] Last Admin: 09/05/17 08:13 Dose: 81 mg Azithromycin (Zithromax) 500 mg PO DAILY [facility] PRN Reason: Protocol Stop: 09/10/17 10:01 Last Admin: 09/05/17 11:56 Dose: 500 mg Clopidogrel Bisulfate (Plavix) 75 mg PO DAILY [facility] Last Admin: 09/05/17 08:13 Dose: 75 mg Furosemide (Lasix) 20 mg IVP DAILY [facility] Last Admin: 09/04/17 10:26 Dose: 20 mg Piperacillin Sod/Tazobactam Sod (Zosyn 2.25 Gm In 0.9% 100 Ml) 2.25 gm in 100 mls @ 100 mls/hr IVPB Q6 [facility] PRN Reason: Protocol Stop: 09/11/17 10:01 Last Admin: 09/06/17 05:58 Dose: 100 mls/hr Morphine Sulfate (Morphine) 1 mg IVP Q4H PRN PRN Reason: Pain, severe (8-10) Last Admin: 09/06/17 05:58 Dose: 1 mg Nadolol (Corgard) 10 mg PO DAILY [facility] Last Admin: 09/05/17 11:56 Dose: 10 mg Pantoprazole Sodium (Protonix Ec Tab) 40 mg PO DAILY [facility] Last Admin: 09/05/17 11:56 Dose: 40 mg Rifaximin (Xifaxan) 550 mg PO BID [facility] PRN Reason: Protocol Last Admin: 09/05/17 18:11 Dose: 550 mg Spironolactone (Aldactone) 100 mg PO DAILY [facility] Last Admin: 09/05/17 11:56 Dose: 100 mg - Labs Labs: 10/17/17 05:00 09/06/17 06:59 PT 13.0 Seconds (9.9-11.8) H 09/05/17 06:41 INR 1.20 (0.93-1.08) H 09/05/17 06:41 APTT 34.5 Seconds (23.7-30.8) H 09/03/17 01:05 - Constitutional Appears: Non-toxic, No Acute Distress - Head Exam Head Exam: NORMAL INSPECTION - Neck Exam Neck Exam: absent: Meningismus - Respiratory Exam Respiratory Exam: Decreased Breath Sounds - Cardiovascular Exam Cardiovascular Exam: +S1, +S2 - GI/Abdominal Exam GI & Abdominal Exam: Soft. 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 Rosales
--- NOTE | 2017-09-06 15:15 | PN ---
DATE: 09/06/2017 REASON FOR CONSULTATION AND FOLLOWUP: CAD status post PTCA, now patient in atrial fibrillation, history of abnormal stress test, history of nonalcoholic cirrhosis. SUBJECTIVE: The patient denies any chest pain, shortness of breath; on walking heart rate 120-130, AFib. PHYSICAL EXAMINATION: GENERAL: Not in apparent distress, sitting and having breakfast. VITAL SIGNS: Temperature afebrile, heart rate 99 but when walking heart rate goes to 123, blood pressure 145/81, HEENT: PERRLA. Extraocular muscles are intact. NECK: Supple. No carotid bruit or thyromegaly. CHEST: Clear to auscultation. HEART: S1 and S2 regular. ABDOMEN: Soft.. EXTREMITIES: Clubbing and cyanosis negative. Large right inguinal hernia. Left groin 1:03 puncture site. No hematoma noted. LABORATORY DATA: Blood workup as follows: WBC 8.6, hemoglobin 10.3, hematocrit 31.5, and platelet count 146. Chemistry shows sodium 130, potassium 4.0, chloride 106, carbon dioxide 26, anion gap 10, BUN 24, and creatinine 1.5. IMPRESSION: 1. Acute kidney injury chronically insufficiency, nonalcoholic cirrhosis, thrombocytopenia, anemia, history of coronary artery disease, abnormal stress test status post percutaneous transluminal coronary angioplasty of right coronary artery with bare metal stent (bare metal stent was placed because the patient had nonalcoholic cirrhosis, thrombocytopenia and large ventral hernia, may need interruption of dual antiplatelet therapy sooner than later). Now, the patient can have hernia surgery as well as can come off the dual antiplatelet therapy in 4 weeks after continuation of aspirin and Plavix mandatory for 4 weeks and then the patient can have a baby aspirin alone. 2. Second issue, the patient had atrial fibrillation started. We will give Cardizem IV push 20 mg followed by Cardizem 30 q. 8 hours. We will not start anticoagulation because of less than 24 hour. If remains persistently in atrial fibrillation, continue anticoagulation. We will, in the interim, continue nadolol daily, start Cardizem 30 mg q. 8 hours, give Cardizem IV push 20 mg daily, continue aspirin, continue Plavix. We will follow with you. We will get an EKG in the morning. We will repeat the labs in the morning. Thank you Dr. Rosales for providing us the opportunity in taking care of patient, Mr. Lane. Richa Fine MD
[2017-09-06] MEDS: oxyCODONE 5 mg Immediate Release Tab PO PRN ×2 (17:59→23:30)
--- NOTE | 2017-09-06 22:06 | CARD ---
APPROVED REPORT EKG Measurement Heart [id number] <Conclusion> Atrial fibrillation Low voltage QRS Abnormal ECG
--- NOTE | 2017-09-06 22:21 | CARD ---
APPROVED REPORT EKG Measurement Heart [id number] <Conclusion> Atrial fibrillation with premature ventricular or aberrantly conducted complexes Low voltage QRS Abnormal QRS-T angle, consider primary T wave abnormality Prolonged QT Abnormal ECG
[2017-09-07] MEDS: Morphine 2 mg/ml ISec IVP PRN ×3 (04:20→23:54)
[2017-09-07] MEDS: Piperacillin/Tazobact 2.25gm 2.25 GM/100 ML BAG IVPB SCH ×4 (05:30→23:43)
[2017-09-07] MEDS: oxyCODONE 5 mg Immediate Release Tab PO PRN ×2 (05:31→14:01)
[2017-09-07 06:45] LABS: BASO # 0.03 K/mm3 (0.0-2.0); BASO % 0.5 % (0.0-3.0); EOS # 0.3 (0.0-0.7); EOS % 4.3 % (1.5-5.0); GRAN # 3.9 (1.4-6.5); GRAN % 60.2 % (50.0-68.0); HEMATOCRIT 27.1 % (42.0-52.0); LYMPH # 1.4 (1.2-3.4); LYMPH % 20.9 % (22.0-35.0); MEAN CELL VOLUME 101.1 fl (80.0-105.0); MEAN CORPUSCULAR HEMOGLOBIN 34.3 pg (25.0-35.0); MEAN CORPUSCULAR HGB CONC 33.9 g/dl (31.0-37.0); MEAN PLATELET VOLUME 9.1 fl (7.0-11.0); MONO # 0.9 (0.1-0.6); MONO % 14.1 % (1.0-6.0); RED CELL DISTRIBUTION WIDTH 15.4 % (11.5-14.5); WHITE BLOOD COUNT 6.5 10^3/ul (4.5-11.0)
[2017-09-07 07:05] LABS: ALB/GLOB RATIO 0.6 (1.1-1.8); ALKALINE PHOSPHATASE 130 U/L (38-126); ALT/SGPT 44 U/L (7-56); AST/SGOT 57 U/L (17-59); BILIRUBIN,TOTAL 2.1 mg/dL (0.2-1.3); BLOOD UREA NITROGEN 22 mg/dL (7-21); CALCIUM 8.6 mg/dL (8.4-10.5); CARBON DIOXIDE 25 mmol/L (21-33); CHLORIDE 105 mmol/L (95-110); GFR AFRICAN-AMERICAN > 60; GLUCOSE,RANDOM 93 mg/dL (70-110); MAGNESIUM 1.7 mg/dL (1.7-2.2); PHOSPHOROUS 3.1 mg/dL (2.5-4.5); POTASSIUM 4.3 mmol/L (3.6-5.0); SODIUM 135 mmol/L (132-148); TOTAL PROTEIN 7.2 g/dL (5.8-8.3)
[2017-09-07] MEDS ORDERED: Amiodarone 150 mg/D5W 100 ml 150 MG/100 ML BAG IVPB ONE (09:16)
[2017-09-07] MEDS: Enoxaparin 80 mg Syringe SC SCH (09:39)
--- NOTE | 2017-09-07 11:46 | CP.PCM.PN ---
<Bekah Hwang - Last Filed: 09/07/17 12:56> Subjective - Date & Time of Evaluation Date of Evaluation: 09/07/17 Time of Evaluation: 11:44 - Subjective Subjective: Hospitalist Service Progress Note: Patient seen and examined at bedside. Per nursing, no acute events overnight. Patient is doing well, states that right sided pain is controlled with pain medication. Offers no complaints at this time. Denies headache, dizziness, cp, palpitations, sob, urinary symptoms, blood in stool. Objective - Vital Signs/Intake and Output Vital Signs (last 24 hours): Temp Pulse Resp BP Pulse Ox 98.9 F 103 H 17 103/69 97 09/07/17 06:00 09/07/17 09:50 09/07/17 06:00 09/07/17 09:50 09/07/17 06:00 Intake and Output: 09/07/17 09/07/17 06:59 18:59 Intake Total 200 Balance 200 - Medications Medications: Current Medications Aspirin (Ecotrin) 81 mg PO DAILY [facility] Last Admin: 09/07/17 09:38 Dose: 81 mg Azithromycin (Zithromax) 500 mg PO DAILY [facility] PRN Reason: Protocol Stop: 09/10/17 10:01 Last Admin: 09/07/17 09:38 Dose: 500 mg Clopidogrel Bisulfate (Plavix) 75 mg PO DAILY [facility] Last Admin: 09/07/17 09:38 Dose: 75 mg Diltiazem HCl (Cardizem) 30 mg PO QID [facility] Last Admin: 09/07/17 09:37 Dose: Not Given Enoxaparin Sodium (Lovenox) 70 mg SC Q24H [facility] PRN Reason: Protocol Last Admin: 09/07/17 09:39 Dose: 70 mg Famotidine (Pepcid) 20 mg PO 1000 [facility] Last Admin: 09/07/17 09:39 Dose: 20 mg Furosemide (Lasix) 20 mg IVP DAILY [facility] Last Admin: 09/04/17 10:26 Dose: 20 mg Piperacillin Sod/Tazobactam Sod (Zosyn 2.25 Gm In 0.9% 100 Ml) 2.25 gm in 100 mls @ 100 mls/hr IVPB Q6 [facility] PRN Reason: Protocol Stop: 09/11/17 10:01 Last Admin: 09/07/17 05:30 Dose: 100 mls/hr Morphine Sulfate (Morphine) 1 mg IVP Q4H PRN PRN Reason: Pain, moderate (4-7) Last Admin: 09/07/17 04:20 Dose: 1 mg Nadolol (Corgard) 10 mg PO DAILY [facility] Last Admin: 09/07/17 09:50 Dose: 10 mg Oxycodone HCl (Oxycodone Immediate Release Tab) 5 mg PO Q6H PRN PRN Reason: Pain, moderate (4-7) Last Admin: 09/07/17 05:31 Dose: 5 mg Rifaximin (Xifaxan) 550 mg PO BID [facility] PRN Reason: Protocol Last Admin: 09/07/17 09:39 Dose: 550 mg Spironolactone (Aldactone) 100 mg PO DAILY [facility] Last Admin: 09/07/17 09:38 Dose: Not Given - Labs Labs: 09/07/17 06:00 09/07/17 06:00 PT 13.0 Seconds (9.9-11.8) H 09/05/17 06:41 INR 1.20 (0.93-1.08) H 09/05/17 06:41 APTT 34.5 Seconds (23.7-30.8) H 09/03/17 01:05 - Constitutional Appears: Non-toxic, No Acute Distress - Head Exam Head Exam: ATRAUMATIC, NORMAL INSPECTION - Eye Exam Eye Exam: EOMI, Scleral icterus Pupil Exam: NORMAL ACCOMODATION - ENT Exam ENT Exam: Mucous Membranes Moist - Neck Exam Neck Exam: Full ROM - Respiratory Exam Respiratory Exam: Decreased Breath Sounds, NORMAL BREATHING PATTERN. absent: Rales, Rhonchi, Wheezes - Cardiovascular Exam Cardiovascular Exam: Irregular Rhythm, +S1, +S2 - GI/Abdominal Exam GI & Abdominal Exam: Distended, Soft. absent: Guarding, Rigid, Tenderness - Exam Additional comments: +petechiae on R groin area +bruising noted L groin area - Extremities Exam Extremities Exam: Full ROM. absent: Calf Tenderness Additional comments: No hematoma appreciated at access site - Back Exam Back Exam: NORMAL INSPECTION - Neurological Exam Neurological Exam: Alert, Awake, Oriented x3 - Psychiatric Exam Psychiatric exam: Normal Affect, Normal Mood - Skin Skin Exam: Normal Color, Warm Assessment and Plan - Assessment and Plan (Free Text) Assessment: Patient is a 62 year old male with past medical history of Non-alcoholic liver cirrhosis, HTN, GERD, CHF (EF 45-50%) [place] [facility] altered mental status and lethargy. Patient found to have ammonia level of 140. Currently being treated for hepatic encephalopathy and community acquired pneumonia. Plan: 1. S/P Cardiac Catherization with bare metal stent placement - Stress test showed reversible apical/inferoseptal defects suspected of ischemia - PTCA of RCA done 09/05, tolerated procedure well - Cr level 1.4 today, stable - Will need to be on ASA and Plavix for 4 weeks 2. Atrial Fibrillation with RVR - Was on coumadin previously, had a GI bleed in the past so it was stopped - Went into RVR while ambulating with PT - EKG at that time showing Afib - S/P Cardizem 20mg IV yesterday - Recieved Amiodarone x 1 dose today - Continue Cardizem 30mg QID - Weight based Lovenox - Patient for TYSHAWN cardioversion tomorrow - Cardiology on consult, f/u recommendations 3. R large Inguinal Hernia - Hernia is reducible on exam - Patient to follow up with general surgery as outpatient - Will need to be on ASA and Plavix for at least 4 weeks 4. Right sided Flank pain - Pain has been persistent since patient fell from the bed prior to admission - Oxycodone 5mg PO Q6H prn pain - Having flank tenderness, No bruising appreciated - Will order Rib xray - Continue to monitor 5. Thrombocytopenia - Platelets 103 today, likely 2/2 to liver cirrhosis - Protonix discontinued, started on pepcid for GI ppx - Will continue to monitor 6. Community Acquired Pneumonia, Right Lower Lobe (rule out SBP) - Continue Azithromycin and Zosyn (day 6) - Continue Rifaximin - Urine strep/legionella ab negative - Blood cx showing no growth, urine cx showing no growth - F/U sputum cx - ID consulted, f/u recommendations - Patient asking for pneumovax and flu vaccine; can get both as outpatient after completing course of antibiotics 7. Altered Mental Status 2/2 Hepatic encephalopathy (resolved) - Currently Afebrile, AAOx3 - Mentation back to baseline - Ammonia level within normal limits - CT head: negative for acute pathology - Fall precautions - PT eval ordered, recommending NONA for disposition 8. 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 Anemia (likely secondary to chronic disease) - Hgb 9.2 today - No active signs of bleeding at this time - Will continue to monitor 10. Hx of Congestive Heart Failure (systolic) - Last echo 06/2017 showing EF 45-50% - Stress test showed reversible apical/inferoseptal defects suspected of ischemia - Lasix held, continue aldactone - Daily weights - Strict I/Os 11. Hypertension - Continue Nadolol 10mg daily 12. Anxiety/Depression - Will hold xanax at this time 13. Hypokalemia (resolved) - Continue to monitor GI/DVT ppx - Pepcid 20mg PO - Weight based Lovenox <Rubin Rosalesa - Last Filed: 09/07/17 14:06> Objective - Vital Signs/Intake and Output Vital Signs (last 24 hours): Temp Pulse Resp BP Pulse Ox 98.9 F 103 H 17 103/69 97 09/07/17 06:00 09/07/17 09:50 09/07/17 06:00 09/07/17 09:50 09/07/17 06:00 Intake and Output: 09/07/17 09/07/17 06:59 18:59 Intake Total 200 Balance 200 - Medications Medications: Current Medications Aspirin (Ecotrin) 81 mg PO DAILY [facility] Last Admin: 09/07/17 09:38 Dose: 81 mg Azithromycin (Zithromax) 500 mg PO DAILY [facility] PRN Reason: Protocol Stop: 09/10/17 10:01 Last Admin: 09/07/17 09:38 Dose: 500 mg Clopidogrel Bisulfate (Plavix) 75 mg PO DAILY [facility] Last Admin: 09/07/17 09:38 Dose: 75 mg Diltiazem HCl (Cardizem) 30 mg PO QID [facility] Last Admin: 09/07/17 09:37 Dose: Not Given Enoxaparin Sodium (Lovenox) 70 mg SC Q24H [facility] PRN Reason: Protocol Last Admin: 09/07/17 09:39 Dose: 70 mg Famotidine (Pepcid) 20 mg PO 1000 [facility] Last Admin: 09/07/17 09:39 Dose: 20 mg Furosemide (Lasix) 20 mg IVP DAILY [facility] Last Admin: 09/04/17 10:26 Dose: 20 mg Piperacillin Sod/Tazobactam Sod (Zosyn 2.25 Gm In 0.9% 100 Ml) 2.25 gm in 100 mls @ 100 mls/hr IVPB Q6 [facility] PRN Reason: Protocol Stop: 09/11/17 10:01 Last Admin: 09/07/17 13:52 Dose: 100 mls/hr Morphine Sulfate (Morphine) 1 mg IVP Q4H PRN PRN Reason: Pain, moderate (4-7) Last Admin: 09/07/17 04:20 Dose: 1 mg Nadolol (Corgard) 10 mg PO DAILY [facility] Last Admin: 09/07/17 09:50 Dose: 10 mg Oxycodone HCl (Oxycodone Immediate Release Tab) 5 mg PO Q6H PRN PRN Reason: Pain, moderate (4-7) Last Admin: 09/07/17 14:01 Dose: 5 mg Rifaximin (Xifaxan) 550 mg PO BID [facility] PRN Reason: Protocol Last Admin: 09/07/17 09:39 Dose: 550 mg Spironolactone (Aldactone) 100 mg PO DAILY [facility] Last Admin: 09/07/17 09:38 Dose: Not Given - Labs Labs: 09/07/17 06:00 09/07/17 06:00 PT 13.0 Seconds (9.9-11.8) H 09/05/17 06:41 INR 1.20 (0.93-1.08) H 09/05/17 06:41 APTT 34.5 Seconds (23.7-30.8) H 09/03/17 01:05 Attending/Attestation - Attestation I have personally seen and examined this patient.: Yes I have fully participated in the care of the patient.: Yes I have reviewed all pertinent clinical information, including history, physical exam and plan: Yes Notes (Text): Attending note; Patient seen and examined with resident. Patient is a 62 year old male with history of TRUJILLO, former smoker, alcohol use, HTN, CHF (EF~45-50%), afib rate controlled not on anticoagulation due to GI bleed who was brought by his partner for evaluation of AMS and lethargy most likely secondary to hepatic encephalopathy and also found to have RLL CAP. currently alert,awake and oriented. Status post cardiac cath and bare metal stent placement in RCA. A fib; currently on po Cardizem. Got 1 dose of IV amiodarone. Currently on subcutaneous Lovenox treatment dose for A. fib. Cardiology evaluation appreciated. Will follow-up with cardiology for further plan. CT abdomen shows abdominal and pelvic ascites /splenomegaly nodular liver .HIDA was negative for acute cholecystitis . Discussed with GI. There is no abdominal tenderness. Abdomen is distended but not tense. Continue spironolactone. Needs to follow up with primary GI Dr. Bautista as outpatient. Will continue zosyn and zithromycin for pneumonia. can switch to po Zithromax and cefpodoxime per ID. Rib x-rays negative for fracture. consolidation in the right lower lobe noted. Anemia; no active bleeding. Monitor closely. PT evaluation appreciated. PT is recommending subacute rehabilitation. Upon discharge patient will follow up with Dr. Lew. case discussed with PMD in detail. Patient needs close follow-up with GI upon discharge. Case discussed with patient's next of kin in detail by the resident.
--- NOTE | 2017-09-07 12:14 | CP.PCM.PN ---
Subjective - Date & Time of Evaluation Date of Evaluation: 09/07/17 Time of Evaluation: 10:25 - Subjective Subjective: Comfortable on a chair, no fevers. Objective - Vital Signs/Intake and Output Vital Signs (last 24 hours): Temp Pulse Resp BP Pulse Ox 98.9 F 117 H 17 104/76 97 09/07/17 06:00 09/07/17 06:00 09/07/17 06:00 09/07/17 06:00 09/07/17 06:00 Intake and Output: 09/07/17 09/07/17 06:59 18:59 Intake Total 200 Balance 200 - Medications Medications: Current Medications Aspirin (Ecotrin) 81 mg PO DAILY [facility] Last Admin: 09/06/17 21:19 Dose: Not Given Azithromycin (Zithromax) 500 mg PO DAILY [facility] PRN Reason: Protocol Stop: 09/10/17 10:01 Last Admin: 09/06/17 09:21 Dose: 500 mg Clopidogrel Bisulfate (Plavix) 75 mg PO DAILY [facility] Last Admin: 09/06/17 21:20 Dose: Not Given Diltiazem HCl (Cardizem) 30 mg PO QID [facility] Last Admin: 09/06/17 22:50 Dose: Not Given Enoxaparin Sodium (Lovenox) 70 mg SC Q24H [facility] PRN Reason: Protocol Famotidine (Pepcid) 20 mg PO 1000 [facility] Furosemide (Lasix) 20 mg IVP DAILY [facility] Last Admin: 09/04/17 10:26 Dose: 20 mg Piperacillin Sod/Tazobactam Sod (Zosyn 2.25 Gm In 0.9% 100 Ml) 2.25 gm in 100 mls @ 100 mls/hr IVPB Q6 [facility] PRN Reason: Protocol Stop: 09/11/17 10:01 Last Admin: 09/07/17 05:30 Dose: 100 mls/hr Morphine Sulfate (Morphine) 1 mg IVP Q4H PRN PRN Reason: Pain, moderate (4-7) Last Admin: 09/07/17 04:20 Dose: 1 mg Nadolol (Corgard) 10 mg PO DAILY [facility] Last Admin: 09/06/17 09:27 Dose: 10 mg Oxycodone HCl (Oxycodone Immediate Release Tab) 5 mg PO Q6H PRN PRN Reason: Pain, moderate (4-7) Last Admin: 09/07/17 05:31 Dose: 5 mg Rifaximin (Xifaxan) 550 mg PO BID [facility] PRN Reason: Protocol Last Admin: 09/06/17 17:59 Dose: 550 mg Spironolactone (Aldactone) 100 mg PO DAILY [facility] Last Admin: 09/06/17 09:26 Dose: 100 mg - Labs Labs: 09/07/17 06:00 09/07/17 06:00 PT 13.0 Seconds (9.9-11.8) H 09/05/17 06:41 INR 1.20 (0.93-1.08) H 09/05/17 06:41 APTT 34.5 Seconds (23.7-30.8) H 09/03/17 01:05 - Constitutional Appears: Non-toxic - Head Exam Head Exam: NORMAL INSPECTION - Respiratory Exam Respiratory Exam: Decreased Breath Sounds - Cardiovascular Exam Cardiovascular Exam: +S1, +S2 - GI/Abdominal Exam GI & Abdominal Exam: Soft. 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 Rosales
--- NOTE | 2017-09-07 12:38 | RAD ---
PROCEDURE: Radiographs of the chest and bilateral ribs HISTORY: s/p fall, R sided back pain COMPARISON: Chest x-ray 09/02/2017 TECHNIQUE: Frontal radiograph of the chest and multiple oblique radiographs of the bilateral ribs were obtained. FINDINGS: RIGHT RIBS: No fracture or focal lesion visualized. LEFT RIBS: No fracture or focal lesion visualized. LUNGS: The prior right basal amorphous reported infiltrate is no longer seen as such. There is more focal opacity now noted on a single image of the 5 current images presented. This focal current opacity may represent right kamla diaphragmatic pleural postinflammatory tenting or some mobile right pleural fluid PLEURA: No pneumothorax .. The right basal not reproduced on all images-and may represent some trace pleural tenting. Some mobile fluid could also simulate this. Previously a right basal infiltrate was referenced. CARDIOVASCULAR: Normal sized heart. No pulmonary vascular congestion. OTHER FINDINGS: None. IMPRESSION: No gross rib fracture appreciated. No gross pneumothorax. Appearance of the right lung base has changed compared 09/02/2017 more focal opacity is now suggested oval fluid is a consideration. An element of concomitant right kamla diaphragmatic pleural postinflammatory tenting is another.
--- NOTE | 2017-09-07 14:23 | PN ---
DATE: 09/07/2017 REASON FOR CONSULTATION AND FOLLOWUP: CAD, status post PTCA, new onset atrial fibrillation, and history of nonalcoholic cirrhosis. SUBJECTIVE: The patient denies any chest pain, but feel the palpitation, if the patient even go to the bathroom and walk. OBJECTIVE: GENERAL: Not in apparent distress, having breakfast, feel some shocking sensation with the fast heart rate. VITAL SIGNS: As follows; temperature afebrile, heart rate 117, and blood pressure 104/76. HEENT: PERRLA. Extraocular muscles are intact. NECK: Supple. No carotid bruit or thyromegaly. CHEST: Clear to auscultation. HEART: S1 and S2 regular. ABDOMEN: Soft. EXTREMITIES: Clubbing and cyanosis negative. LABORATORY DATA: Blood workup as follows: WBC 6.5, hemoglobin 9.2, hematocrit 27.1, and platelet count 103. Chemistry shows sodium 135, potassium 4.0, chloride 105, carbon dioxide 25, anion gap 9, BUN 22, and creatinine 1.4. Total bilirubin 2.0, AST 54 and ALT 44. IMPRESSION: Nonalcoholic cirrhosis, thrombocytopenia, anemia, renal insufficiency improved with hydration, new onset of atrial fibrillation, coronary artery disease, status post percutaneous transluminal coronary angioplasty of right coronary artery with bare-metal stent. RECOMMENDATIONS: We will give 1 dose of IV amiodarone because of the cirrhosis, so far LFTs are okay. We are going to give 1 dose IV amiodarone. Continue Cardizem. We will start Lovenox and if the patient does not get converted by tomorrow, we will considered TYSHAWN cardioversion because the patient has a history of cirrhosis, thrombocytopenia, we cannot continue long-term anticoagulation, that was the reason patient is on bare-metal stent, so we can get away in 4 weeks Plavix and avoid dual antiplatelet therapy for long-term therapy, that is why the drug-coated stent was not placed at the first place and discussed with the patient in length. We will follow. Also weight adjusted, we will give 70 of Lovenox subcutaneously and followup serial CBC. If the CBC remains stable, we will get Lovenox. We will avoid long-term p.o. amiodarone because of the cirrhosis as mentioned. We will check another CBC at 3 p.m. to see if the patient is not bleeding because of the drop in hemoglobin is 9.2; it will be secondary to dilution, but rule out GI bleed. We will keep n.p.o. TYSHAWN cardioversion in the morning. Richa Fine MD
[2017-09-07 16:15] LABS: BASO # 0.03 K/mm3 (0.0-2.0); BASO % 0.4 % (0.0-3.0); EOS # 0.2 (0.0-0.7); EOS % 2.8 % (1.5-5.0); GRAN # 4.4 (1.4-6.5); GRAN % 64.1 % (50.0-68.0); HEMATOCRIT 27.1 % (42.0-52.0); LYMPH # 1.3 (1.2-3.4); LYMPH % 18.9 % (22.0-35.0); MEAN CELL VOLUME 101.1 fl (80.0-105.0); MEAN CORPUSCULAR HEMOGLOBIN 34.3 pg (25.0-35.0); MEAN CORPUSCULAR HGB CONC 33.9 g/dl (31.0-37.0); MONO % 13.8 % (1.0-6.0); RED CELL DISTRIBUTION WIDTH 15.4 % (11.5-14.5); WHITE BLOOD COUNT 6.9 10^3/ul (4.5-11.0)
--- NOTE | 2017-09-07 21:33 | CARD ---
APPROVED REPORT EKG Measurement Heart [id number] <Conclusion> Atrial fibrillation with rapid ventricular response with premature ventricular or aberrantly conducted complexes Low voltage QRS rate related LBBB Nonspecific T wave abnormality, probably digitalis effect Abnormal ECG
[2017-09-08] MEDS: Piperacillin/Tazobact 2.25gm 2.25 GM/100 ML BAG IVPB SCH (05:38)
[2017-09-08 06:57] LABS: BASO # 0.04 K/mm3 (0.0-2.0); BASO % 0.7 % (0.0-3.0); EOS # 0.2 (0.0-0.7); EOS % 3.7 % (1.5-5.0); GRAN % 54.8 % (50.0-68.0); HEMATOCRIT 26.2 % (42.0-52.0); LYMPH # 1.5 (1.2-3.4); LYMPH % 26.5 % (22.0-35.0); MEAN CELL VOLUME 100.8 fl (80.0-105.0); MEAN CORPUSCULAR HEMOGLOBIN 34.6 pg (25.0-35.0); MEAN CORPUSCULAR HGB CONC 34.4 g/dl (31.0-37.0); MEAN PLATELET VOLUME 9.2 fl (7.0-11.0); MONO # 0.8 (0.1-0.6); MONO % 14.3 % (1.0-6.0); RED CELL DISTRIBUTION WIDTH 15.6 % (11.5-14.5); WHITE BLOOD COUNT 5.5 10^3/ul (4.5-11.0)
--- NOTE | 2017-09-08 07:15 | CP.PCM.PN ---
<Bekah Hwang - Last Filed: 09/08/17 15:40> Subjective - Date & Time of Evaluation Date of Evaluation: 09/08/17 Time of Evaluation: 07:14 - Subjective Subjective: Hospitalist Service Progress Note: Patient seen and examined at bedside. Per nursing no acute events overnight. Patient is NPO for TYSHAWN with cardioversion today. Currently without complaints at this time. Denies headaches, dizziness, cp, palpitations, abdominal pain, urinary symptoms, changes in bowel habits. Objective - Vital Signs/Intake and Output Vital Signs (last 24 hours): Temp Pulse Resp BP Pulse Ox 98.6 F 85 20 97/52 L 96 09/08/17 06:00 09/08/17 06:00 09/08/17 06:00 09/08/17 06:00 09/08/17 06:00 Intake and Output: 09/08/17 09/08/17 06:59 18:59 Intake Total 0 Output Total 0 Balance 0 - Medications Medications: Current Medications Aspirin (Ecotrin) 81 mg PO DAILY [facility] Last Admin: 09/07/17 09:38 Dose: 81 mg Azithromycin (Zithromax) 500 mg PO DAILY [facility] PRN Reason: Protocol Stop: 09/10/17 10:01 Last Admin: 09/07/17 09:38 Dose: 500 mg Clopidogrel Bisulfate (Plavix) 75 mg PO DAILY [facility] Last Admin: 09/07/17 09:38 Dose: 75 mg Diltiazem HCl (Cardizem) 30 mg PO QID [facility] Last Admin: 09/07/17 22:09 Dose: Not Given Enoxaparin Sodium (Lovenox) 70 mg SC Q24H [facility] PRN Reason: Protocol Last Admin: 09/07/17 09:39 Dose: 70 mg Famotidine (Pepcid) 20 mg PO 1000 [facility] Last Admin: 09/07/17 09:39 Dose: 20 mg Furosemide (Lasix) 20 mg IVP DAILY [facility] Last Admin: 09/04/17 10:26 Dose: 20 mg Piperacillin Sod/Tazobactam Sod (Zosyn 2.25 Gm In 0.9% 100 Ml) 2.25 gm in 100 mls @ 100 mls/hr IVPB Q6 [facility] PRN Reason: Protocol Stop: 09/11/17 10:01 Last Admin: 09/08/17 05:38 Dose: 100 mls/hr Morphine Sulfate (Morphine) 1 mg IVP Q4H PRN PRN Reason: Pain, moderate (4-7) Last Admin: 09/07/17 23:54 Dose: 1 mg Nadolol (Corgard) 10 mg PO DAILY [facility] Last Admin: 09/07/17 09:50 Dose: 10 mg Oxycodone HCl (Oxycodone Immediate Release Tab) 5 mg PO Q6H PRN PRN Reason: Pain, moderate (4-7) Last Admin: 09/07/17 14:01 Dose: 5 mg Rifaximin (Xifaxan) 550 mg PO BID [facility] PRN Reason: Protocol Last Admin: 09/07/17 17:47 Dose: 550 mg Spironolactone (Aldactone) 100 mg PO DAILY [facility] Last Admin: 09/07/17 09:38 Dose: Not Given - Labs Labs: 09/08/17 06:10 09/07/17 06:00 PT 13.0 Seconds (9.9-11.8) H 09/05/17 06:41 INR 1.20 (0.93-1.08) H 09/05/17 06:41 APTT 34.5 Seconds (23.7-30.8) H 09/03/17 01:05 - Constitutional Appears: Well, No Acute Distress - Head Exam Head Exam: ATRAUMATIC, NORMAL INSPECTION - Eye Exam Eye Exam: EOMI, Normal appearance Pupil Exam: NORMAL ACCOMODATION - ENT Exam ENT Exam: Mucous Membranes Moist - Neck Exam Neck Exam: Full ROM, Normal Inspection - Respiratory Exam Respiratory Exam: Clear to Ausculation Bilateral, NORMAL BREATHING PATTERN. absent: Rales, Rhonchi, Wheezes - Cardiovascular Exam Cardiovascular Exam: Irregular Rhythm, +S1, +S2 - GI/Abdominal Exam GI & Abdominal Exam: Distended, Soft. absent: Guarding, Rigid, Tenderness - Extremities Exam Extremities Exam: Full ROM, Normal Inspection Additional comments: Petechiae noted on R groin L groin bruising improving, no hematoma apprecitaed - Back Exam Back Exam: NORMAL INSPECTION - Neurological Exam Neurological Exam: Alert, Awake, Oriented x3 - Psychiatric Exam Psychiatric exam: Normal Affect, Normal Mood - Skin Skin Exam: Dry, Normal Color, Warm Assessment and Plan - Assessment and Plan (Free Text) Assessment: Patient is a 62 year old male with past medical history of Non-alcoholic liver cirrhosis, HTN, GERD, CHF (EF 45-50%) presents to [facility] for altered mental status and lethargy. Patient found to have ammonia level of 140. Patient was admitted for hepatic encephalopathy and community acquired pneumonia. During admission patient had 9 beats of vtach (nonsustainted), also went into afib with RVR. Plan: 1. S/P Cardiac Catherization with bare metal stent placement - Stress test showed reversible apical/inferoseptal defects suspected of ischemia - PTCA of RCA done 09/05, tolerated procedure well - Cr level 1.4 today, stable - Will need to be on ASA and Plavix for 4 weeks 2. Atrial Fibrillation with RVR - Was on coumadin previously, had a GI bleed in the past so it was stopped - Went into RVR while ambulating with PT - EKG at that time showing Afib - S/P Cardizem 20mg IV - Recieved Amiodarone x 1 dose yesterday - Continue Cardizem 30mg QID - Currently on Lovenox - Patient for TYSHAWN cardioversion today - Cardiology on consult, f/u recommendations 3. R large Inguinal Hernia - Hernia is reducible on exam - Patient to follow up with general surgery as outpatient - Will need to be on ASA and Plavix for at least 4 weeks 4. Right sided Flank pain - Pain has been persistent since patient fell from the bed prior to admission - Oxycodone 5mg PO Q6H prn pain - Having flank tenderness, No bruising appreciated - Rib xray showing no acute fractures - Continue to monitor 5. Thrombocytopenia - Platelets 103 today, likely 2/2 to liver cirrhosis - Protonix discontinued, started on pepcid for GI ppx - Will continue to monitor 6. Community Acquired Pneumonia, Right Lower Lobe (rule out SBP) - Continue Azithromycin and Zosyn (day 7) - Will start Cefpodoxime 200 mg BID - Continue Rifaximin - Urine strep/legionella ab negative - Blood cx showing no growth, urine cx showing no growth - ID consulted, f/u recommendations - Patient asking for pneumovax and flu vaccine; can get both as outpatient after completing course of antibiotics 7. Altered Mental Status 2/2 Hepatic encephalopathy (resolved) - Currently Afebrile, AAOx3 - Mentation back to baseline - Ammonia level within normal limits - CT head: negative for acute pathology - Fall precautions - PT eval ordered, recommending NONA for disposition 8. 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 Anemia (likely secondary to chronic disease) - Hgb 9.0 today - No active signs of bleeding at this time - Will continue to monitor 10. Hx of Congestive Heart Failure (systolic) - Last echo 06/2017 showing EF 45-50% - Stress test showed reversible apical/inferoseptal defects suspected of ischemia - Lasix held, continue aldactone - Daily weights - Strict I/Os 11. Hypertension - Continue Nadolol 10mg daily 12. Anxiety/Depression - Will hold xanax at this time 13. Hypokalemia (resolved) - Continue to monitor GI/DVT ppx - Pepcid 20mg PO - Lovenox <Rangasamy,Ajantha - Last Filed: 09/08/17 16:34> Objective - Vital Signs/Intake and Output Vital Signs (last 24 hours): Temp Pulse Resp BP Pulse Ox 98.1 F 69 17 101/62 99 09/08/17 13:25 09/08/17 14:01 09/08/17 13:25 09/08/17 14:01 09/08/17 13:25 Intake and Output: 09/08/17 09/08/17 06:59 18:59 Intake Total 0 350 Output Total 0 Balance 0 350 - Medications Medications: Current Medications Aspirin (Ecotrin) 81 mg PO DAILY [facility] Last Admin: 09/08/17 14:02 Dose: 81 mg Azithromycin (Zithromax) 500 mg PO DAILY [facility] PRN Reason: Protocol Stop: 09/10/17 10:01 Last Admin: 09/08/17 14:02 Dose: 500 mg Cefpodoxime Proxetil (Vantin) 200 mg PO Q12 [facility] PRN Reason: Protocol Last Admin: 09/08/17 14:02 Dose: 200 mg Clopidogrel Bisulfate (Plavix) 75 mg PO DAILY [facility] Last Admin: 09/08/17 14:01 Dose: 75 mg Diltiazem HCl (Cardizem) 30 mg PO QID [facility] Stop: 09/09/17 10:00 Last Admin: 09/08/17 14:01 Dose: Not Given Enoxaparin Sodium (Lovenox) 70 mg SC Q24H [facility] PRN Reason: Protocol Stop: 09/09/17 11:00 Last Admin: 09/08/17 10:36 Dose: 70 mg Famotidine (Pepcid) 20 mg PO 1000 [facility] Last Admin: 09/08/17 14:02 Dose: 20 mg Furosemide (Lasix) 20 mg IVP DAILY [facility] Last Admin: 09/04/17 10:26 Dose: 20 mg Morphine Sulfate (Morphine) 1 mg IVP Q4H PRN PRN Reason: Pain, moderate (4-7) Last Admin: 09/08/17 15:38 Dose: 1 mg Nadolol (Corgard) 10 mg PO DAILY [facility] Last Admin: 09/08/17 14:01 Dose: 10 mg Oxycodone HCl (Oxycodone Immediate Release Tab) 5 mg PO Q6H PRN PRN Reason: Pain, moderate (4-7) Last Admin: 09/07/17 14:01 Dose: 5 mg Rifaximin (Xifaxan) 550 mg PO BID [facility] PRN Reason: Protocol Last Admin: 09/08/17 14:01 Dose: 550 mg Spironolactone (Aldactone) 100 mg PO DAILY [facility] Last Admin: 09/08/17 14:01 Dose: 100 mg - Labs Labs: 09/08/17 06:10 09/08/17 06:10 PT 13.0 Seconds (9.9-11.8) H 09/05/17 06:41 INR 1.20 (0.93-1.08) H 09/05/17 06:41 APTT 34.5 Seconds (23.7-30.8) H 09/03/17 01:05 Attending/Attestation - Attestation I have personally seen and examined this patient.: Yes I have fully participated in the care of the patient.: Yes I have reviewed all pertinent clinical information, including history, physical exam and plan: Yes Notes (Text): 09/08/17 16:32 Attending note; Patient seen and examined with resident. Patient is a 62 year old male with history of TRUJILLO, former smoker, alcohol use, HTN, CHF (EF~45-50%), afib rate controlled not on anticoagulation due to GI bleed who was brought by his partner for evaluation of AMS and lethargy most likely secondary to hepatic encephalopathy and also found to have RLL CAP. currently alert,awake and oriented. Status post cardiac cath and bare metal stent placement in RCA. A fib; currently on po Cardizem. nothing by mouth for TYSHAWN and cardioversion today. Currently on subcutaneous Lovenox treatment dose for A. fib. Cardiology evaluation appreciated. Cirrhosis with ascites;Continue spironolactone. Needs to follow up with primary GI Dr. Bautista as outpatient. Anemia; no active bleeding. Monitor closely. will follow up with PT today. Upon discharge patient will follow up with Dr. Lew. case discussed with PMD in detail. Patient needs close follow-up with GI upon discharge. 09/08/17 16:34
[2017-09-08 07:16] LABS: ALB/GLOB RATIO 0.6 (1.1-1.8); ALKALINE PHOSPHATASE 134 U/L (38-126); ALT/SGPT 32 U/L (7-56); AST/SGOT 56 U/L (17-59); BILIRUBIN,TOTAL 2.2 mg/dL (0.2-1.3); BLOOD UREA NITROGEN 19 mg/dL (7-21); CALCIUM 8.3 mg/dL (8.4-10.5); CARBON DIOXIDE 23 mmol/L (21-33); CHLORIDE 105 mmol/L (98-107); GFR AFRICAN-AMERICAN > 60; GLUCOSE,RANDOM 81 mg/dL (70-110); MAGNESIUM 1.8 mg/dL (1.7-2.2); PHOSPHOROUS 2.7 mg/dL (2.5-4.5); POTASSIUM 3.8 mmol/L (3.6-5.0); SODIUM 135 mmol/L (132-148); TOTAL PROTEIN 6.8 g/dL (5.8-8.3)
[2017-09-08] MEDS: Enoxaparin 80 mg Syringe SC SCH ×2 (10:17→10:36)
[2017-09-08] MEDS ORDERED: Benzocaine/Butamben/Tetracai 14-2-2% TOP Spray TOP ONE (11:59)
[2017-09-08] MEDS ORDERED: Midazolam 2 MG/2 ML VIAL ONE (12:06)
[2017-09-08] MEDS ORDERED: Metoprolol 1 mg/ml Inj IVP ONE (12:07)
[2017-09-08] MEDS ORDERED: Flumazenil 0.1 mg/ml Inj (5ml) IVP ONE ×2 (12:07→12:40)
[2017-09-08] MEDS ORDERED: Naloxone 0.4 mg/ml Inj (Adult) ONE (12:07)
[2017-09-08] MEDS ORDERED: Midazolam 2 MG/2 ML VIAL IV ONE ×4 (12:11→12:27)
[2017-09-08] MEDS ORDERED: Sodium Chloride 0.9% 1,000 ML IV SCH (12:45)
[2017-09-08] MEDS: Cefpodoxime (Vantin) 200 mg Tab PO SCH ×2 (14:02→21:16)
[2017-09-08] MEDS: Morphine 2 mg/ml ISec IVP PRN ×2 (15:38→20:11)
--- NOTE | 2017-09-08 15:43 | CARD ---
APPROVED REPORT EXAM: Transesophageal echocardiogram with color flow Doppler and Synchronized Cardioversion. INDICATION Atrial Fibrillation R/O THROMBUS Reason For Test : TYSHAWN before Cardioversion PROCEDURE After obtaining informed consent, patient underwent transesophageal echo in the Echo Lab. Type of Sedation : Conscious Sedation Sedation was administered by Dr. Fine. Sedation was achieved with Versed and , Fentanyl 3.5 mg and 150 mcg intravenously. Transesophageal probe was inserted and advanced into esophagus without difficulty. Echo enhancement indication: R/O Septal defect. Echo enhancement agent administered: Agitated Saline The TYSHAWN was performed without complications. Synchronized Cardioversion attempted: Successful Synchronized Cardioversion acheived with 300 Joules after second attempt(s). Rhythm following Synchronized Cardioversion: Normal Sinus Rhythm Throughout the procedure, the blood pressure, pulse oximetry, cardiac rhythm, and rate were monitored. The patient tolerated the procedure without adverse effects. Recovery from conscious sedation was uneventful and vital signs were stable. LEFT VENTRICLE The left ventricle is normal size. There is mild left ventricular hypertrophy. The left ventricular function is normal.EF-55-60% There is normal LV segmental wall motion. A fib No left ventricle thrombus noted on this study. There is no ventricular septal defect visualized. There is no left ventricular aneurysm. There is no mass noted in the left ventricle. RIGHT VENTRICLE The right ventricle is mildly dilated. There is normal right ventricular wall thickness. The right ventricular systolic function is normal. ATRIA The left atrium is mildly dilated. The right atrium is mildly dilated. The interatrial septum is intact with no evidence for an atrial septal defect. AORTIC VALVE The aortic valve is normal in structure. No aortic regurgitation is present. There is no aortic valvular stenosis. There is no aortic valvular vegetation. MITRAL VALVE The mitral valve leaflets are thickened. There is no evidence of mitral valve prolapse. There is no mitral valve stenosis. Mitral regurgitation is mild. TRICUSPID VALVE The tricuspid valve leaflets display thickening. There is mild to moderate tricuspid regurgitation. There is no tricuspid valve prolapse or vegetation. There is no tricuspid valve stenosis. PULMONIC VALVE The pulmonary valve is normal in structure. There is trace pulmonic valvular regurgitation. There is no pulmonic valvular stenosis. GREAT VESSELS The aortic root is normal in size. The ascending aorta is normal in size. The pulmonary artery is normal. The IVC was not visualized. PERICARDIAL EFFUSION There is no pericardial effusion. Trivial Pericardial effusion <Conclusion> Normal LV Size and function. EF-55 -60%. Dilated RA/RV/LA Normal RV Fx Mild to moderate TR. Minimal Plaque in descending aorta. Mild smoke noted in LA/NABIL Velocity in NABIL <0.4 m/s. No absolute cotraindication to Cardioversion noted. 200 synchrnized CV attempted, Pt did not converted but then 300 Jopules Synchronized Cardioversion done, pt converted to NSR and remains in NSR till goes to PACU. CC; Dr Bishop / sherrie.
--- NOTE | 2017-09-08 16:04 | PN ---
DATE: 09/08/2017 REASON FOR CONSULTATION AND FOLLOWUP: CAD, status post PTCA, new onset atrial fibrillation, nonalcoholic cirrhosis, and status post TYSHAWN cardioversion. SUBJECTIVE: Denies any chest pain, shortness of breath, status post TYSHAWN cardioversion. OBJECTIVE: GENERAL: Not in apparent distress, awake and alert. VITAL SIGNS: As follows; temperature afebrile, heart rate 75, and blood pressure 106/62. HEENT: PERRLA. Extraocular muscles are intact. NECK: Supple. No carotid bruit or thyromegaly. CHEST: Clear to auscultation. HEART: S1 and S2 regular. ABDOMEN: Soft. EXTREMITIES: Clubbing and cyanosis negative. LABORATORY DATA: Blood workup as follows: WBC 5.5, hemoglobin 9, hematocrit 26.2, and platelet count 103. Chemistry; sodium 130, potassium 3.0, chloride 105, carbon dioxide 23, anion gap of 11, BUN 19, and creatinine 1.4. Total protein 6.2, albumin 2.5, and albumin-globulin ratio 0.6. IMPRESSION: Protein-calorie malnutrition moderate, which was not present on admission. Anemia, which was present on admission, status post transesophageal echocardiography cardioversion, now status post percutaneous transluminal coronary angioplasty of right coronary artery with bare-metal stent (bare-metal stent was placed because the patient has thrombocytopenia, nonalcoholic cirrhosis, large inguinal hernia, may need surgical intervention), atrial fibrillation paroxysmal, and status post transesophageal echocardiography cardioversion. RECOMMENDATIONS: Since, the patient has low platelet count, hyperbilirubinemia and alcoholic cirrhosis, cannot continue long-term anticoagulation. So, we will started Lovenox, status post TYSHAWN cardioversion. We will continue next 24 hours of anticoagulation. After this, we will continue aspirin and Plavix mandatory for 4 weeks and rather the patient's Plavix will come off and continue aspirin. Discussed at length with Dr. Rosales. I discussed with the patient and since the patient has some renal insufficiency, the dose adjusted Lovenox being given because the creatinine clearance is 50 mL, though the serum creatinine is 1.4, but creatinine clearance and GFR is 50. So, if the patient is 1 mg subcutaneously q.12 hours enoxaparin and we will discontinue after tomorrow's dose and possible discharge home tomorrow. We will follow with you. Continue antibiotic. Tomorrow also we will discontinue Cardizem too. We did not start amiodarone one dose was given because of abnormal LFTs, hyperbilirubinemia, and cirrhosis that cause more toxicity to the liver withdrawn. We will discontinue also Cardizem tomorrow after the morning dose. Thank you Dr. Rosales for providing me the opportunity in taking care of [facility]. Richa Fine MD
--- NOTE | 2017-09-08 17:15 | CP.PCM.PN ---
Subjective - Date & Time of Evaluation Date of Evaluation: 09/08/17 Time of Evaluation: 09:00 - Subjective Subjective: For TYSHAWN cardioversion today, no fevers, no abdominal pain. Objective - Vital Signs/Intake and Output Vital Signs (last 24 hours): Temp Pulse Resp BP Pulse Ox 98.6 F 85 20 97/52 L 96 09/08/17 06:00 09/08/17 06:00 09/08/17 06:00 09/08/17 06:00 09/08/17 06:00 Intake and Output: 09/08/17 09/08/17 06:59 18:59 Intake Total 0 Output Total 0 Balance 0 - Medications Medications: Current Medications Aspirin (Ecotrin) 81 mg PO DAILY [facility] Last Admin: 09/07/17 09:38 Dose: 81 mg Azithromycin (Zithromax) 500 mg PO DAILY [facility] PRN Reason: Protocol Stop: 09/10/17 10:01 Last Admin: 09/07/17 09:38 Dose: 500 mg Clopidogrel Bisulfate (Plavix) 75 mg PO DAILY [facility] Last Admin: 09/07/17 09:38 Dose: 75 mg Diltiazem HCl (Cardizem) 30 mg PO QID [facility] Last Admin: 09/07/17 22:09 Dose: Not Given Enoxaparin Sodium (Lovenox) 70 mg SC Q24H [facility] PRN Reason: Protocol Last Admin: 09/07/17 09:39 Dose: 70 mg Famotidine (Pepcid) 20 mg PO 1000 [facility] Last Admin: 09/07/17 09:39 Dose: 20 mg Furosemide (Lasix) 20 mg IVP DAILY [facility] Last Admin: 09/04/17 10:26 Dose: 20 mg Piperacillin Sod/Tazobactam Sod (Zosyn 2.25 Gm In 0.9% 100 Ml) 2.25 gm in 100 mls @ 100 mls/hr IVPB Q6 [facility] PRN Reason: Protocol Stop: 09/11/17 10:01 Last Admin: 09/08/17 05:38 Dose: 100 mls/hr Morphine Sulfate (Morphine) 1 mg IVP Q4H PRN PRN Reason: Pain, moderate (4-7) Last Admin: 09/07/17 23:54 Dose: 1 mg Nadolol (Corgard) 10 mg PO DAILY [facility] Last Admin: 09/07/17 09:50 Dose: 10 mg Oxycodone HCl (Oxycodone Immediate Release Tab) 5 mg PO Q6H PRN PRN Reason: Pain, moderate (4-7) Last Admin: 09/07/17 14:01 Dose: 5 mg Rifaximin (Xifaxan) 550 mg PO BID [facility] PRN Reason: Protocol Last Admin: 09/07/17 17:47 Dose: 550 mg Spironolactone (Aldactone) 100 mg PO DAILY [facility] Last Admin: 09/07/17 09:38 Dose: Not Given - Labs Labs: 09/08/17 06:10 09/08/17 06:10 PT 13.0 Seconds (9.9-11.8) H 09/05/17 06:41 INR 1.20 (0.93-1.08) H 09/05/17 06:41 APTT 34.5 Seconds (23.7-30.8) H 09/03/17 01:05 - Constitutional Appears: Non-toxic, No Acute Distress - Head Exam Head Exam: NORMAL INSPECTION - ENT Exam ENT Exam: Mucous Membranes Moist - Neck Exam Neck Exam: absent: Lymphadenopathy, Meningismus - Respiratory Exam Respiratory Exam: Decreased Breath Sounds - Cardiovascular Exam Cardiovascular Exam: +S1, +S2 - GI/Abdominal Exam GI & Abdominal Exam: Soft. 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 Rosales for cardioversion today for his Afib since anticoagulation may be dangerous for this patient with liver cirrhosis
--- NOTE | 2017-09-08 20:44 | CARD ---
APPROVED REPORT EKG Measurement Heart [id number] <Conclusion> Normal sinus rhythm Low voltage QRS Borderline ECG
--- NOTE | 2017-09-08 20:52 | CARD ---
APPROVED REPORT EKG Measurement Heart [id number] <Conclusion> Atrial fibrillation with premature ventricular or aberrantly conducted complexes Low voltage QRS Nonspecific T wave abnormality, probably digitalis effect Prolonged QT Abnormal ECG
[2017-09-09 06:08] LABS: BASO # 0.03 K/mm3 (0.0-2.0); BASO % 0.6 % (0.0-3.0); EOS # 0.2 (0.0-0.7); EOS % 4.1 % (1.5-5.0); GRAN # 2.6 (1.4-6.5); GRAN % 53.5 % (50.0-68.0); HEMATOCRIT 25.2 % (42.0-52.0); LYMPH # 1.4 (1.2-3.4); LYMPH % 28.2 % (22.0-35.0); MEAN CELL VOLUME 101.6 fl (80.0-105.0); MEAN CORPUSCULAR HEMOGLOBIN 35.1 pg (25.0-35.0); MEAN CORPUSCULAR HGB CONC 34.5 g/dl (31.0-37.0); MEAN PLATELET VOLUME 9.1 fl (7.0-11.0); MONO # 0.7 (0.1-0.6); MONO % 13.6 % (1.0-6.0); RED CELL DISTRIBUTION WIDTH 16.1 % (11.5-14.5); WHITE BLOOD COUNT 4.9 10^3/ul (4.5-11.0)
[2017-09-09 06:17] LABS: ALB/GLOB RATIO 0.6 (1.1-1.8); ALKALINE PHOSPHATASE 139 U/L (38-126); ALT/SGPT 39 U/L (7-56); AST/SGOT 55 U/L (17-59); BILIRUBIN,TOTAL 2.1 mg/dL (0.2-1.3); BLOOD UREA NITROGEN 18 mg/dL (7-21); CALCIUM 8.4 mg/dL (8.4-10.5); CARBON DIOXIDE 22 mmol/L (21-33); CHLORIDE 108 mmol/L (95-110); GFR AFRICAN-AMERICAN > 60; GLUCOSE,RANDOM 78 mg/dL (70-110); MAGNESIUM 1.8 mg/dL (1.7-2.2); PHOSPHOROUS 2.8 mg/dL (2.5-4.5); POTASSIUM 3.8 mmol/L (3.6-5.0); SODIUM 136 mmol/L (132-148); TOTAL PROTEIN 6.7 g/dL (5.8-8.3)
--- NOTE | 2017-09-09 10:31 | PN ---
DATE: 09/09/2017 SUBJECTIVE: The patient is in bed, in no acute distress. OBJECTIVE: VITAL SIGNS: Temperature is 98, blood pressure is 90/50, respiratory rate of 20 and heart rate of 73. EXAMINATION OF HEENT: Unremarkable. NECK: Supple. LUNGS: Decreased breath sounds. HEART EXAM: Normal S1 and S2. ABDOMINAL EXAMINATION: Soft. LABORATORY EXAMINATION: Reveals a white count is 4.9, hemoglobin of 8 and platelets of 115. Chemistries are noted. Urinalysis is noted. Microbiology reveals the blood cultures are negative and urine cultures are negative. REVIEW OF ORDERS: Reveals the patient is on p.o. Vantin and p.o. Zithromax. ASSESSMENT AND PLAN: A 62-year-old male, admitted with community-acquired pneumonia and possible spontaneous bacterial peritonitis, nonalcoholic steatohepatitis, liver cirrhosis and ascites, atrial fibrillation, chronic renal disease and has completed Zosyn and Zithromax and on p.o. antibiotics at this point of p.o. Vantin and p.o. Zithromax. Bravo Christensen MD
[2017-09-09] MEDS: Enoxaparin 80 mg Syringe SC SCH (10:59)
--- NOTE | 2017-09-09 11:10 | CP.PCM.PN ---
<Bekah Hwang - Last Filed: 09/09/17 11:21> Subjective - Date & Time of Evaluation Date of Evaluation: 09/09/17 Time of Evaluation: 11:07 - Subjective Subjective: Hospitalist Service Progress Note: Patient seen and examined at bedside. Per nursing no acute events overnight. Patient had 3 episodes of diarrhea this morning. Offers no other complaints at this time. He is oob to chair, tolerating diet. Denies headaches, dizziness, cp , palpitations, sob, abdominal pain, urinary symptoms. Objective - Vital Signs/Intake and Output Vital Signs (last 24 hours): Temp Pulse Resp BP Pulse Ox 98.7 F 69 20 90/53 L 100 09/09/17 06:00 09/09/17 06:00 09/09/17 06:00 09/09/17 06:00 09/09/17 06:00 Intake and Output: 09/09/17 09/09/17 06:59 18:59 Intake Total 1150 Balance 1150 - Medications Medications: Current Medications Aspirin (Ecotrin) 81 mg PO DAILY [facility] Last Admin: 09/08/17 14:02 Dose: 81 mg Azithromycin (Zithromax) 500 mg PO DAILY [facility] PRN Reason: Protocol Stop: 09/10/17 10:01 Last Admin: 09/08/17 14:02 Dose: 500 mg Cefpodoxime Proxetil (Vantin) 200 mg PO Q12 [facility] PRN Reason: Protocol Last Admin: 09/08/17 21:16 Dose: 200 mg Clopidogrel Bisulfate (Plavix) 75 mg PO DAILY [facility] Last Admin: 09/08/17 14:01 Dose: 75 mg Famotidine (Pepcid) 20 mg PO 1000 [facility] Last Admin: 09/08/17 14:02 Dose: 20 mg Furosemide (Lasix) 20 mg IVP DAILY [facility] Last Admin: 09/04/17 10:26 Dose: 20 mg Nadolol (Corgard) 10 mg PO DAILY [facility] Last Admin: 09/08/17 14:01 Dose: 10 mg Oxycodone HCl (Oxycodone Immediate Release Tab) 5 mg PO Q6H PRN PRN Reason: Pain, moderate (4-7) Last Admin: 09/07/17 14:01 Dose: 5 mg Rifaximin (Xifaxan) 550 mg PO BID [facility] PRN Reason: Protocol Last Admin: 09/08/17 18:51 Dose: 550 mg Spironolactone (Aldactone) 100 mg PO DAILY [facility] Last Admin: 09/08/17 14:01 Dose: 100 mg - Labs Labs: 09/09/17 05:30 09/09/17 05:30 PT 13.0 Seconds (9.9-11.8) H 09/05/17 06:41 INR 1.20 (0.93-1.08) H 09/05/17 06:41 APTT 34.5 Seconds (23.7-30.8) H 09/03/17 01:05 - Constitutional Appears: Well, No Acute Distress - Head Exam Head Exam: ATRAUMATIC, NORMAL INSPECTION - Eye Exam Eye Exam: EOMI, Normal appearance Pupil Exam: NORMAL ACCOMODATION - ENT Exam ENT Exam: Mucous Membranes Moist - Neck Exam Neck Exam: Full ROM - Respiratory Exam Respiratory Exam: Clear to Ausculation Bilateral, NORMAL BREATHING PATTERN. absent: Rales, Rhonchi, Wheezes - Cardiovascular Exam Cardiovascular Exam: REGULAR RHYTHM, +S1, +S2 - GI/Abdominal Exam GI & Abdominal Exam: Distended, Soft, Normal Bowel Sounds. absent: Guarding, Rigid, Tenderness - Extremities Exam Extremities Exam: Full ROM, Normal Inspection. absent: Calf Tenderness - Back Exam Back Exam: NORMAL INSPECTION - Neurological Exam Neurological Exam: Alert, Awake, Oriented x3 - Psychiatric Exam Psychiatric exam: Normal Affect, Normal Mood - Skin Skin Exam: Normal Color, Warm Assessment and Plan - Assessment and Plan (Free Text) Assessment: Patient is a 62 year old male with past medical history of Non-alcoholic liver cirrhosis, HTN, GERD, CHF (EF 45-50%) presents to [facility] for altered mental status and lethargy. Patient found to have ammonia level of 140. Patient was admitted for hepatic encephalopathy and community acquired pneumonia. During admission patient had 9 beats of vtach (nonsustainted), also went into afib with RVR. Plan: 1. S/P Cardiac Catherization with bare metal stent placement - Stress test showed reversible apical/inferoseptal defects suspected of ischemia - PTCA of RCA done 09/05, tolerated procedure well - Cr level 1.3 today, stable - Will need to be on ASA and Plavix for 4 weeks - PT recommending DISPO home with services (Home PT if possible) 2. Atrial Fibrillation with RVR - Was on coumadin previously, had a GI bleed in the past so it was stopped - S/P TYSHAWN cardioversion yesterday - EKG this am showing NSR - Will discontinue Lovenox, cardizem - Cardiology on consult, f/u recommendations 3. Anemia (likely secondary to chronic disease) - Hgb 8.7 today - No active signs of bleeding at this time - Will order stool occult blood - Will continue to monitor 4. Diarrhea - Due to current antibiotic use, will order C diff - Continue to monitor 5. Right sided Flank pain - Pain has been persistent since patient fell from the bed prior to admission - Oxycodone 5mg PO Q6H prn pain - Rib xray showing no acute fractures - Continue to monitor 6. Community Acquired Pneumonia, Right Lower Lobe (rule out SBP) - Continue Azithromycin (day 8) - Cefpodoxime 200 mg BID (day 2) - Continue Rifaximin - Urine strep/legionella ab negative - Blood cx showing no growth, urine cx showing no growth - ID consulted, f/u recommendations - Patient asking for pneumovax and flu vaccine; can get both as outpatient after completing course of antibiotics 8. 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 Thrombocytopenia - Platelets 115 today, likely 2/2 to liver cirrhosis - Will continue to monitor 10. R large Inguinal Hernia - Hernia is reducible on exam - Patient to follow up with general surgery as outpatient - Will need to be on ASA and Plavix for at least 4 weeks 11. Altered Mental Status 2/2 Hepatic encephalopathy (resolved) - Currently Afebrile, AAOx3 - Mentation back to baseline - Ammonia level within normal limits - CT head: negative for acute pathology - Fall precautions 12. Hx of Congestive Heart Failure (systolic) - Last echo 06/2017 showing EF 45-50% - Stress test showed reversible apical/inferoseptal defects suspected of ischemia - Continue aldactone - Daily weights - Strict I/Os 13. Hypertension - Continue Nadolol 10mg daily 14. Anxiety/Depression - Will hold xanax at this time 15. Hypokalemia (resolved) - Continue to monitor GI/DVT ppx - Pepcid 20mg PO - SCDs <Felicita Rosales - Last Filed: 09/09/17 17:54> Objective - Vital Signs/Intake and Output Vital Signs (last 24 hours): Temp Pulse Resp BP Pulse Ox 98 F 65 18 116/56 L 100 09/09/17 12:00 09/09/17 12:00 09/09/17 12:00 09/09/17 12:00 09/09/17 06:00 Intake and Output: 09/09/17 09/09/17 06:59 18:59 Intake Total 1150 Balance 1150 - Medications Medications: Current Medications Aspirin (Ecotrin) 81 mg PO DAILY [facility] Last Admin: 09/09/17 11:14 Dose: 81 mg Clopidogrel Bisulfate (Plavix) 75 mg PO DAILY [facility] Last Admin: 09/09/17 11:15 Dose: 75 mg Famotidine (Pepcid) 20 mg PO 1000 [facility] Last Admin: 09/09/17 11:15 Dose: 20 mg Furosemide (Lasix) 20 mg PO DAILY [facility] Nadolol (Corgard) 10 mg PO DAILY [facility] Oxycodone HCl (Oxycodone Immediate Release Tab) 5 mg PO Q6H PRN PRN Reason: Pain, moderate (4-7) Last Admin: 09/07/17 14:01 Dose: 5 mg Spironolactone (Aldactone) 100 mg PO DAILY [facility] Last Admin: 09/09/17 11:28 Dose: 100 mg - Labs Labs: 09/09/17 05:30 09/09/17 05:30 PT 13.0 Seconds (9.9-11.8) H 09/05/17 06:41 INR 1.20 (0.93-1.08) H 09/05/17 06:41 APTT 34.5 Seconds (23.7-30.8) H 09/03/17 01:05 Attending/Attestation - Attestation I have personally seen and examined this patient.: Yes I have fully participated in the care of the patient.: Yes I have reviewed all pertinent clinical information, including history, physical exam and plan: Yes Notes (Text): 09/09/17 15:56 Attending note; Patient seen and examined with resident. Patient is a 62 year old male with history of TRUJILLO, former smoker, alcohol use, HTN, CHF (EF~45-50%), afib rate controlled not on anticoagulation due to GI bleed Is admitted with AMS and lethargy most likely secondary to hepatic encephalopathy and also found to have RLL CAP. currently alert,awake and oriented. Status post cardiac cath and bare metal stent placement in RCA. A fib: s/p TYSHAWN and cardioversion yesterday. Currently in normal sinus rhythm. Cardizem and Lovenox discontinued. Cardiology evaluation appreciated. Cirrhosis with ascites;Continue spironolactone. Needs to follow up with primary GI Dr. Bautista as outpatient. Anemia; no active bleeding. Monitor closely. PT evaluation appreciated. Case discussed with shelter case manager in detail. Patient will be discharged home tomorrow with family. Upon discharge patient will follow up with Dr. Lew. case discussed with PMD in detail. Patient needs close follow-up with GI upon discharge. 09/09/17 17:52
[2017-09-09] MEDS: Cefpodoxime (Vantin) 200 mg Tab PO SCH (11:15)
--- NOTE | 2017-09-09 12:51 | PN ---
DATE: 09/09/2017 REASON FOR CONSULTATION AND FOLLOWUP: CAD, status post PTCA, new onset atrial fibrillation, nonalcoholic cirrhosis, and status post TYSHAWN cardioversion. SUBJECTIVE: The patient denies any chest pain, shortness of breath, or any palpitation, remained in normal sinus. OBJECTIVE: GENERAL: Not in apparent distress, lying flat in the bed, telemetry shows normal sinus. Recent EKG done this morning also shows normal sinus. VITAL SIGNS: As follows; temperature afebrile, heart rate 69, and blood pressure 90/53. HEENT: PERRLA. Extraocular muscles are intact. NECK: Supple. No carotid bruit or thyromegaly. CHEST: Clear to auscultation. HEART: S1 and S2 regular. ABDOMEN: Soft. EXTREMITIES: Clubbing and cyanosis negative. LABORATORY DATA: Blood workup as follows: WBC 4.9, hemoglobin 8.7, hematocrit 25.2, and platelet count 115. Chemistry shows sodium 136, potassium 3.8, chloride 108, carbon dioxide 22, anion gap of 10, BUN 18, and creatinine 1.3. Total bilirubin 2.1, albumin 2.3, total protein 6.7, globulin 4.3, and albumin-globulin ratio 0.6. IMPRESSION: Nonalcoholic cirrhosis, chest pain, abnormal stress test, status post percutaneous transluminal coronary angioplasty of right coronary artery with bare-metal stent (bare metal stent was placed because the patient has a nonalcoholic cirrhosis, thrombocytopenia, large inguinal hernia, may need surgical intervention and cannot continue dual-antiplatelet therapy for extended period of the time), atrial fibrillation paroxysmal, and status post transesophageal echocardiography cardioversion, remained in atrial fibrillation, renal insufficiency improved, and acute kidney injury improved. RECOMMENDATIONS: Discontinue IV fluid. Continue aspirin and Plavix, mandatory for 4 weeks. We will give a dose of Lovenox, we will discontinue after that because it is a very short-live, less than 48 hours converted to normal sinus. Continue nadolol for cirrhosis. We will discontinue Cardizem 30 mg because of the low blood pressure. Discussed with the patient and discussed with Dr. Rosales. The patient needs aspirin and Plavix for 4 weeks, after this the patient can come off the Plavix and bare-metal stent and continue baby aspirin. The patient is cleared from cardiac point of view and he will be discharged, and when is stable from medical point of view, the patient can be discharge. Richa Fine MD
--- NOTE | 2017-09-09 22:52 | CARD ---
APPROVED REPORT EKG Measurement Heart [id number] <Conclusion> Normal sinus rhythm Low voltage QRS Borderline ECG
[2017-09-10 01:31] VITALS: O2SAT 98
[2017-09-10] MEDS: oxyCODONE 5 mg Immediate Release Tab PO PRN (01:34)
[2017-09-10 07:40] LABS: BASO # 0.07 K/mm3 (0.0-2.0); BASO % 1.4 % (0.0-3.0); EOS # 0.2 (0.0-0.7); EOS % 3.5 % (1.5-5.0); GRAN # 2.57 (1.4-6.5); HEMATOCRIT 26.5 % (42.0-52.0); LYMPH # 1.3 (1.2-3.4); LYMPH % 26.6 % (22.0-35.0); MEAN CELL VOLUME 103.5 fl (80.0-105.0); MEAN CORPUSCULAR HEMOGLOBIN 35.2 pg (25.0-35.0); MEAN PLATELET VOLUME 9.2 fl (7.0-11.0); MONO # 0.8 (0.1-0.6); MONO % 15.5 % (1.0-6.0); RED CELL DISTRIBUTION WIDTH 16.8 % (11.5-14.5); WHITE BLOOD COUNT 4.9 10^3/ul (4.5-11.0)
[2017-09-10 08:02] LABS: ALB/GLOB RATIO 0.5 (1.1-1.8); ALKALINE PHOSPHATASE 153 U/L (38-126); ALT/SGPT 35 U/L (7-56); AST/SGOT 57 U/L (17-59); BILIRUBIN,TOTAL 2.1 mg/dL (0.2-1.3); BLOOD UREA NITROGEN 17 mg/dL (7-21); CALCIUM 8.5 mg/dL (8.4-10.5); CARBON DIOXIDE 22 mmol/L (21-33); CHLORIDE 110 mmol/L (98-107); GFR AFRICAN-AMERICAN > 60; GLUCOSE,RANDOM 81 mg/dL (70-110); SODIUM 139 mmol/L (132-148); TOTAL PROTEIN 7.1 g/dL (5.8-8.3)
--- NOTE | 2017-09-10 09:16 | PN ---
DATE: 09/10/2017 SUBJECTIVE: The patient is in bed, in no acute distress, nontoxic. OBJECTIVE: VITAL SIGNS: On exam, temperature is 98, blood pressure is 100/40 and respiratory rate of 16. EXAMINATION OF HEENT: Unremarkable. NECK: Supple. LUNGS: Decreased breath sounds. HEART EXAM: Normal S1 and S2. ABDOMINAL EXAMINATION: Soft and nontender. LABORATORY EXAMINATION: Reveals a white count of 4.9, hemoglobin of 9 and platelets of 116. BUN of 17 and creatinine of 1.3. Procalcitonin is 0.41 and alk phos is 153. ASSESSMENT AND PLAN: A 62-year-old with community-acquired pneumonia, possible spontaneous bacterial peritonitis, nonalcoholic steatohepatitis, liver cirrhosis, ascites, atrial fibrillation, chronic renal failure. May be switched to p.o. Vantin and p.o. Zithromax, complete therapy. Bravo Christensen MD
--- NOTE | 2017-09-10 10:49 | CP.PCM.DIS ---
<Bekah Hwang - Last Filed: 09/11/17 17:47> Provider - Provider Date of Admission: 09/02/17 05:43 Attending physician: Felicita Rosales MD Primary care physician: Surinder Bishop MD Consults: GI: Shila Cardiology: Babatunde Time Spent in preparation of Discharge (in minutes): 35 Hospital Course - Lab Results Lab Results: Micro Results 09/02/17 07:24 Blood-Venous Blood Culture - Final NO GROWTH AFTER 5 DAYS 09/02/17 07:24 Blood-Venous Gram Stain - Final TEST NOT PERFORMED 09/02/17 07:24 Blood-Venous Blood Culture - Final NO GROWTH AFTER 5 DAYS 09/02/17 07:24 Blood-Venous Gram Stain - Final TEST NOT PERFORMED 09/02/17 11:36 Urine Urine Culture - Final No Growth (<1,000 CFU/ML) Most Recent Lab Values WBC 4.9 10^3/ul (4.5-11.0) 09/10/17 07:20 RBC 2.56 10^6/uL (3.5-6.1) L 09/10/17 07:20 Hgb 9.0 g/dL (14.0-18.0) L 09/10/17 07:20 Hct 26.5 % (42.0-52.0) L 09/10/17 07:20 MCV 103.5 fl (80.0-105.0) 09/10/17 07:20 MCH 35.2 pg (25.0-35.0) H 09/10/17 07:20 MCHC 34.0 g/dl (31.0-37.0) 09/10/17 07:20 RDW 16.8 % (11.5-14.5) H 09/10/17 07:20 Plt Count 116 10^3/uL (120.0-450.0) L 09/10/17 07:20 MPV 9.2 fl (7.0-11.0) 09/10/17 07:20 Gran % 53.0 % (50.0-68.0) 09/10/17 07:20 Lymph % (Auto) 26.6 % (22.0-35.0) 09/10/17 07:20 [place] % (Auto) 15.5 % (1.0-6.0) H 09/10/17 07:20 Eos % (Auto) 3.5 % (1.5-5.0) 09/10/17 07:20 Baso % (Auto) 1.4 % (0.0-3.0) 09/10/17 07:20 Gran # 2.57 (1.4-6.5) 09/10/17 07:20 Lymph # 1.3 (1.2-3.4) 09/10/17 07:20 [place] # 0.8 (0.1-0.6) H 09/10/17 07:20 Eos # 0.2 (0.0-0.7) 09/10/17 07:20 Baso # 0.07 K/mm3 (0.0-2.0) 09/10/17 07:20 PT 13.0 Seconds (9.9-11.8) H 09/05/17 06:41 INR 1.20 (0.93-1.08) H 09/05/17 06:41 APTT 34.5 Seconds (23.7-30.8) H 09/03/17 01:05 pO2 79 mm/Hg (30-55) H 09/02/17 04:10 VBG pH 7.48 (7.32-7.43) H 09/02/17 04:10 VBG pCO2 36.0 (40-60) L 09/02/17 04:10 VBG HCO3 26.8 mmol/l (21-28) 09/02/17 04:10 VBG Total CO2 27.9 mmol.L (22-28) 09/02/17 04:10 VBG O2 Sat (Calc) 98.6 % (40-65) H 09/02/17 04:10 VBG Base Excess 3.4 mmol/L (0.0-2.0) H 09/02/17 04:10 VBG Potassium 3.1 mmol/L (3.6-5.2) L 09/02/17 04:10 Sodium 136.0 mmol/L (132-148) 09/02/17 04:10 Chloride 105.0 mmol/L (98-107) 09/02/17 04:10 Glucose 120 mg/dl (75-110) H 09/02/17 04:10 Lactate 1.5 mmol/L (0.7-2.1) 09/02/17 04:10 FiO2 21.0 % 09/02/17 04:10 Sodium 139 mmol/L (132-148) 09/10/17 07:20 Potassium 4.0 mmol/L (3.6-5.0) 09/10/17 07:20 Chloride 110 mmol/L (98-107) H 09/10/17 07:20 Carbon Dioxide 22 mmol/L (21-33) 09/10/17 07:20 Anion Gap 11 (10-20) 09/10/17 07:20 BUN 17 mg/dL (7-21) 09/10/17 07:20 Creatinine 1.3 mg/dL (0.8-1.5) 09/10/17 07:20 Est GFR ( Amer) > 60 09/10/17 07:20 Est GFR (Non-Af Amer) 56 09/10/17 07:20 POC Glucose (mg/dL) 131 mg/dL (65-110) H 09/02/17 04:10 Random Glucose 81 mg/dL (70-110) 09/10/17 07:20 Hemoglobin A1c 4.8 % (4.2-6.5) 09/02/17 04:10 Calcium 8.5 mg/dL (8.4-10.5) 09/10/17 07:20 Phosphorus 2.8 mg/dL (2.5-4.5) 09/09/17 05:30 Magnesium 1.8 mg/dL (1.7-2.2) 09/09/17 05:30 Iron 180 ug/dL (45-180) 09/02/17 13:30 TIBC 226 ug/dL (261-462) L 09/02/17 13:30 % Saturation 80 % (20-55) H 09/02/17 13:30 Transferrin 142.80 mg/dL (206-381) L 09/02/17 13:30 Ferritin 213.0 ng/mL 09/02/17 13:30 Total Bilirubin 2.1 mg/dL (0.2-1.3) H 09/10/17 07:20 AST 57 U/L (17-59) 09/10/17 07:20 ALT 35 U/L (7-56) 09/10/17 07:20 Alkaline Phosphatase 153 U/L (38-126) H 09/10/17 07:20 Ammonia 27 umol/L (9-33) 09/03/17 01:05 Troponin I 0.01 ng/mL D 09/03/17 01:05 Total Protein 7.1 g/dL (5.8-8.3) 09/10/17 07:20 Albumin 2.5 g/dL (3.0-4.8) L 09/10/17 07:20 Globulin 4.6 gm/dL 09/10/17 07:20 Albumin/Globulin Ratio 0.5 (1.1-1.8) L 09/10/17 07:20 Procalcitonin 0.41 NG/ML (0.19-0.49) 09/02/17 04:10 Venous Blood Potassium 3.1 mmol/L (3.6-5.2) L 09/02/17 04:10 Urine Color Yellow (YELLOW) 09/02/17 11:36 Urine Appearance Clear (CLEAR) 09/02/17 11:36 Urine pH 6.5 (4.7-8.0) 09/02/17 11:36 Ur Specific [place] <= 1.005 (1.005-1.035) 09/02/17 11:36 Urine Protein Negative mg/dL (<30 mg/dL) 09/02/17 11:36 Urine Glucose (UA) Negative mg/dL (NEGATIVE) 09/02/17 11:36 Urine Ketones Negative mg/dL (NEGATIVE) 09/02/17 11:36 Urine Blood Negative (NEGATIVE) 09/02/17 11:36 Urine Nitrate Negative (NEGATIVE) 09/02/17 11:36 Urine Bilirubin Negative (NEGATIVE) 09/02/17 11:36 Urine Urobilinogen 0.2 E.U./dL (<1 E.U./dL) 09/02/17 11:36 Ur Leukocyte Esterase Negative Tomy/uL (NEGATIVE) 09/02/17 11:36 Urine Opiates Screen Positive (NEGATIVE) H 09/02/17 11:36 Urine Methadone Screen Negative (NEGATIVE) 09/02/17 11:36 Ur Barbiturates Screen Negative (NEGATIVE) 09/02/17 11:36 Ur Phencyclidine Scrn Negative (NEGATIVE) 09/02/17 11:36 Ur Amphetamines Screen Negative (NEGATIVE) 09/02/17 11:36 U Benzodiazepines Scrn Positive (NEGATIVE) H 09/02/17 11:36 U Oth Cocaine Metabols Negative (NEGATIVE) 09/02/17 11:36 U Cannabinoids Screen Negative (NEGATIVE) 09/02/17 11:36 Alcohol, Quantitative < 10 mg/dL (0-10) 09/02/17 04:10 Hepatitis A IgM Ab Negative (NEGATIVE) 09/02/17 04:10 Hep Bs Antigen Negative (NEGATIVE) 09/02/17 04:10 Hep B Core IgM Ab Negative (NEGATIVE) 09/02/17 04:10 Hepatitis C Antibody Negative (NEGATIVE) 09/02/17 04:10 HIV 1&2 Ag/Ab, 4th Gen Nonreactive (Nonreactive) 09/02/17 04:10 Ur L.pneumophila Ag Negative (NEGATIVE) 09/02/17 11:36 Ur Strep pneumoniae Ag Not detected 09/02/17 11:36 - Hospital Course Hospital Course: Patient is a 62 year old male with past medical history of Non-alcoholic liver cirrhosis, HTN, GERD, CHF (EF 45-50%) presents to [facility] for altered mental status and lethargy. The patients partner is at the bedside and states that when he came home yesterday evening, the patient was lethargic and not like himself. Patient was confused. Early this morning, patient remained confused and requested to be brought to the hospital. Patient is currently lethargic but answering questions appropriately. States that he feel out of bed the night before and landed on the right side of his body, denies hitting his head or LOC. Complaining of pain on his right side. Patient was admitted for AMS 2/2 hepatic encephalopathy. Patient was found to have an ammonia level of 140. CT head was negative. Was given lactulose with improvement in mental status and ammonia level. GI was consulted and on the case. Lasix, Aldactone and nadolol were started. CT abd pelvis showed large abdominal/pelvic ascites, distended gallbladder, fluid containing right inguinal hernia (see full report). Patient had mildly elevated LFTs, hepatitis panel and HIV were negative. T bili and alk phos were also elevated. HIDA scan was negative. CXR on admission showed right lower lobe infiltrate. For Community acquired pneumonia, Azithromycin and Zosyn was started. ID was consulted and on the case. Blood cx, urine cx and c diff were negative. Patient completed course of antibiotics. Advised to get flu and pneumonia vaccine as outpatient. During admission patient was found to have 9 beats on non sustained vtach, asymptomatic. Cardiology was consulted. Patient was taken for cardiac cath with bare metal stent placement. Started on ASA and Plavix. Also went into afib with RVR. Patient was started on weight based lovenox. Eventually went for TYSHAWN with cardioversion as patient has a history of GI bleed in the past. Patient was successfully converted to sinus rhythm. Patient was found to be hypotensive during admission, nadolol was held. Advised patient to hold taking nadolol and this time and to follow up with PMD for BP check upon discharge. For right sided pain, rib xrays were ordered. Imaging showed no evidence of acute fracture. Pain control was given as needed. Labs and electrolytes were monitored and repleted as needed. Patient is anemic, hgb was monitored and remained stable. No active signs of bleeding were appreciated. Also has thrombocytopenia which appears stable. Patient was evaluated by physical therapy who recommended disposition home with services. Patient was medically stable for discharge. On day of discharge, patient was doing well. OOB to chair. Tolerating diet. Offered no complaints. Medications were reconciled. Pharmacy filled and brought ASA and Plavix to the bedside. Patient instructed that he is to continue Plavix for 4 weeks. Discharge Exam - Head Exam Head Exam: ATRAUMATIC, NORMAL INSPECTION - Eye Exam Eye Exam: EOMI, Normal appearance Pupil Exam: NORMAL ACCOMODATION - ENT Exam ENT Exam: Mucous Membranes Moist - Neck Exam Neck exam: Full Rom - Respiratory Exam Respiratory Exam: Clear to PA & Lateral, NORMAL BREATHING PATTERN, UNREMARKABLE. absent: Rhonchi, Wheezes, Respiratory Distress - Cardiovascular Exam Cardiovascular Exam: REGULAR RHYTHM, +S1, +S2 - Extremities Exam Extremities exam: normal inspection, pedal pulses present - Back Exam Back exam: NORMAL INSPECTION - Neurological Exam Neurological exam: Alert, Oriented x3 - Psychiatric Exam Psychiatric exam: Normal Affect, Normal Mood - Skin Skin Exam: Dry, Normal Color, Warm Discharge Plan - Discharge Medications Prescriptions: Aspirin [Ecotrin] 81 mg PO DAILY #30 tabec Clopidogrel [Plavix] 75 mg PO DAILY #30 tab Spironolactone 100 mg PO DAILY #30 tablet - Follow Up Plan Condition: GUARDED Disposition: HOME/ ROUTINE Instructions: Coronary Artery Disease (DC), Hepatic Encephalopathy (DC), Pneumonia (DC) Additional Instructions: 1. Continue antibiotics as prescribed 2. Patient with bare metal stent, to continue ASA and plavix for 4 weeks 3. Please hold Nadolol at this time, f/u with PMD next week for BP check 4. Patient to follow up GI (Dr. Bautista) within 1 week 5. Advised to discontinue taking iron supplements 6. Patient will need to follow up with general surgery for R inguinal hernia Referrals: Surinder Bishop MD [Primary Care Provider] - <Felicita Rosales - Last Filed: 09/11/17 18:03> Provider - Provider Date of Admission: 09/02/17 05:43 Attending physician: Felicita Rosales MD Primary care physician: Surinder Bishop MD Hospital Course - Lab Results Lab Results: Micro Results 09/10/17 15:00 Stool C. difficile Antigen & Toxin A,B (M - Final 09/02/17 07:24 Blood-Venous Blood Culture - Final NO GROWTH AFTER 5 DAYS 09/02/17 07:24 Blood-Venous Gram Stain - Final TEST NOT PERFORMED 09/02/17 07:24 Blood-Venous Blood Culture - Final NO GROWTH AFTER 5 DAYS 09/02/17 07:24 Blood-Venous Gram Stain - Final TEST NOT PERFORMED 09/02/17 11:36 Urine Urine Culture - Final No Growth (<1,000 CFU/ML) Most Recent Lab Values WBC 4.9 10^3/ul (4.5-11.0) 09/10/17 07:20 RBC 2.56 10^6/uL (3.5-6.1) L 09/10/17 07:20 Hgb 9.0 g/dL (14.0-18.0) L 09/10/17 07:20 Hct 26.5 % (42.0-52.0) L 09/10/17 07:20 MCV 103.5 fl (80.0-105.0) 09/10/17 07:20 MCH 35.2 pg (25.0-35.0) H 09/10/17 07:20 MCHC 34.0 g/dl (31.0-37.0) 09/10/17 07:20 RDW 16.8 % (11.5-14.5) H 09/10/17 07:20 Plt Count 116 10^3/uL (120.0-450.0) L 09/10/17 07:20 MPV 9.2 fl (7.0-11.0) 09/10/17 07:20 Gran % 53.0 % (50.0-68.0) 09/10/17 07:20 Lymph % (Auto) 26.6 % (22.0-35.0) 09/10/17 07:20 [place] % (Auto) 15.5 % (1.0-6.0) H 09/10/17 07:20 Eos % (Auto) 3.5 % (1.5-5.0) 09/10/17 07:20 Baso % (Auto) 1.4 % (0.0-3.0) 09/10/17 07:20 Gran # 2.57 (1.4-6.5) 09/10/17 07:20 Lymph # 1.3 (1.2-3.4) 09/10/17 07:20 [place] # 0.8 (0.1-0.6) H 09/10/17 07:20 Eos # 0.2 (0.0-0.7) 09/10/17 07:20 Baso # 0.07 K/mm3 (0.0-2.0) 09/10/17 07:20 PT 13.0 Seconds (9.9-11.8) H 09/05/17 06:41 INR 1.20 (0.93-1.08) H 09/05/17 06:41 APTT 34.5 Seconds (23.7-30.8) H 09/03/17 01:05 pO2 79 mm/Hg (30-55) H 09/02/17 04:10 VBG pH 7.48 (7.32-7.43) H 09/02/17 04:10 VBG pCO2 36.0 (40-60) L 09/02/17 04:10 VBG HCO3 26.8 mmol/l (21-28) 09/02/17 04:10 VBG Total CO2 27.9 mmol.L (22-28) 09/02/17 04:10 VBG O2 Sat (Calc) 98.6 % (40-65) H 09/02/17 04:10 VBG Base Excess 3.4 mmol/L (0.0-2.0) H 09/02/17 04:10 VBG Potassium 3.1 mmol/L (3.6-5.2) L 09/02/17 04:10 Sodium 136.0 mmol/L (132-148) 09/02/17 04:10 Chloride 105.0 mmol/L (98-107) 09/02/17 04:10 Glucose 120 mg/dl (75-110) H 09/02/17 04:10 Lactate 1.5 mmol/L (0.7-2.1) 09/02/17 04:10 FiO2 21.0 % 09/02/17 04:10 Sodium 139 mmol/L (132-148) 09/10/17 07:20 Potassium 4.0 mmol/L (3.6-5.0) 09/10/17 07:20 Chloride 110 mmol/L (98-107) H 09/10/17 07:20 Carbon Dioxide 22 mmol/L (21-33) 09/10/17 07:20 Anion Gap 11 (10-20) 09/10/17 07:20 BUN 17 mg/dL (7-21) 09/10/17 07:20 Creatinine 1.3 mg/dL (0.8-1.5) 09/10/17 07:20 Est GFR ( Amer) > 60 09/10/17 07:20 Est GFR (Non-Af Amer) 56 09/10/17 07:20 POC Glucose (mg/dL) 131 mg/dL (65-110) H 09/02/17 04:10 Random Glucose 81 mg/dL (70-110) 09/10/17 07:20 Hemoglobin A1c 4.8 % (4.2-6.5) 09/02/17 04:10 Calcium 8.5 mg/dL (8.4-10.5) 09/10/17 07:20 Phosphorus 2.8 mg/dL (2.5-4.5) 09/09/17 05:30 Magnesium 1.8 mg/dL (1.7-2.2) 09/09/17 05:30 Iron 180 ug/dL (45-180) 09/02/17 13:30 TIBC 226 ug/dL (261-462) L 09/02/17 13:30 % Saturation 80 % (20-55) H 09/02/17 13:30 Transferrin 142.80 mg/dL (206-381) L 09/02/17 13:30 Ferritin 213.0 ng/mL 09/02/17 13:30 Total Bilirubin 2.1 mg/dL (0.2-1.3) H 09/10/17 07:20 AST 57 U/L (17-59) 09/10/17 07:20 ALT 35 U/L (7-56) 09/10/17 07:20 Alkaline Phosphatase 153 U/L (38-126) H 09/10/17 07:20 Ammonia 27 umol/L (9-33) 09/03/17 01:05 Troponin I 0.01 ng/mL D 09/03/17 01:05 Total Protein 7.1 g/dL (5.8-8.3) 09/10/17 07:20 Albumin 2.5 g/dL (3.0-4.8) L 09/10/17 07:20 Globulin 4.6 gm/dL 09/10/17 07:20 Albumin/Globulin Ratio 0.5 (1.1-1.8) L 09/10/17 07:20 Procalcitonin 0.41 NG/ML (0.19-0.49) 09/02/17 04:10 Venous Blood Potassium 3.1 mmol/L (3.6-5.2) L 09/02/17 04:10 Urine Color Yellow (YELLOW) 09/02/17 11:36 Urine Appearance Clear (CLEAR) 09/02/17 11:36 Urine pH 6.5 (4.7-8.0) 09/02/17 11:36 Ur Specific [place] <= 1.005 (1.005-1.035) 09/02/17 11:36 Urine Protein Negative mg/dL (<30 mg/dL) 09/02/17 11:36 Urine Glucose (UA) Negative mg/dL (NEGATIVE) 09/02/17 11:36 Urine Ketones Negative mg/dL (NEGATIVE) 09/02/17 11:36 Urine Blood Negative (NEGATIVE) 09/02/17 11:36 Urine Nitrate Negative (NEGATIVE) 09/02/17 11:36 Urine Bilirubin Negative (NEGATIVE) 09/02/17 11:36 Urine Urobilinogen 0.2 E.U./dL (<1 E.U./dL) 09/02/17 11:36 Ur Leukocyte Esterase Negative Tomy/uL (NEGATIVE) 09/02/17 11:36 Stool Occult Blood Positive (NEGATIVE) H 09/10/17 15:00 Urine Opiates Screen Positive (NEGATIVE) H 09/02/17 11:36 Urine Methadone Screen Negative (NEGATIVE) 09/02/17 11:36 Ur Barbiturates Screen Negative (NEGATIVE) 09/02/17 11:36 Ur Phencyclidine Scrn Negative (NEGATIVE) 09/02/17 11:36 Ur Amphetamines Screen Negative (NEGATIVE) 09/02/17 11:36 U Benzodiazepines Scrn Positive (NEGATIVE) H 09/02/17 11:36 U Oth Cocaine Metabols Negative (NEGATIVE) 09/02/17 11:36 U Cannabinoids Screen Negative (NEGATIVE) 09/02/17 11:36 Alcohol, Quantitative < 10 mg/dL (0-10) 09/02/17 04:10 Hepatitis A IgM Ab Negative (NEGATIVE) 09/02/17 04:10 Hep Bs Antigen Negative (NEGATIVE) 09/02/17 04:10 Hep B Core IgM Ab Negative (NEGATIVE) 09/02/17 04:10 Hepatitis C Antibody Negative (NEGATIVE) 09/02/17 04:10 HIV 1&2 Ag/Ab, 4th Gen Nonreactive (Nonreactive) 09/02/17 04:10 Ur L.pneumophila Ag Negative (NEGATIVE) 09/02/17 11:36 Ur Strep pneumoniae Ag Not detected 09/02/17 11:36 Attending/Attestation - Attestation I have personally seen and examined this patient.: Yes I have fully participated in the care of the patient.: Yes I have reviewed all pertinent clinical information, including history, physical exam and plan: Yes Notes (Text): 09/11/17 18:00 Attending note; Patient seen and examined with resident. Patient is a 62 year old male with history of TRUJILLO, former smoker, alcohol use, HTN, CHF (EF~45-50%), afib rate controlled not on anticoagulation due to GI bleed Is admitted with AMS and lethargy most likely secondary to hepatic encephalopathy and also found to have RLL CAP. currently alert,awake and oriented. Status post cardiac cath and bare metal stent placement in RCA. A fib: s/p TYSHAWN and cardioversion. Currently in normal sinus rhythm. Cardizem and Lovenox discontinued. Cardiology evaluation appreciated. Cirrhosis with ascites;Continue spironolactone. Needs to follow up with primary GI Dr. Bautista as outpatient. Anemia; no active bleeding. Monitor closely. PT evaluation appreciated. Case discussed with machine adjuster leader case trim in detail. Upon discharge patient will follow up with Dr. Lew. case discussed with PMD in detail. Patient needs close follow-up with GI upon discharge. diagnosis; advanced cirrhosis pneumonia s/p RCa stent s/p TYSHAWN and cardioversion ascites anemia
[2017-09-10 12:54] VITALS: BP 113/64; PULSE 69; RESP 19; TEMP 97.1
--- NOTE | 2017-09-10 15:55 | PN ---
DATE: 09/10/2017 LOCATION: The patient is in room 271, bed 2. REASON FOR CONSULTATION AND FOLLOWUP: Coronary artery disease, status post PTCA and stent insertion, new onset atrial fibrillation, status post TYSHAWN cardioversion, sinus rhythm, and nonalcoholic cirrhosis. SUBJECTIVE: The patient sitting in chair without any chest pain, shortness of breath, or palpitation. PHYSICAL EXAMINATION: VITAL SIGNS: Blood pressure 113/64, respirations 19, pulse 69, temperature 97.1. HEENT: Head is normocephalic. Eyes, pupils normal. Conjunctivae slightly pale. NECK: JVP low. Carotids equal. THORAX: AP diameter normal. LUNGS: Clear. CARDIOVASCULAR: S1 and S2. ABDOMEN: Soft. Bowel sounds normal. EXTREMITIES: No clubbing. No cyanosis. LABORATORY DATA: WBC 4.9, hemoglobin 9.0, hematocrit 26.5, and platelets 116. Sodium 139, potassium 4.0, BUN 17, creatinine 1.3, glucose 81, calcium 8.5. Total bilirubin 2.1, alkaline phosphatase 153, total protein 7.1, albumin 2.5. DIAGNOSES: Coronary artery disease, status post coronary angioplasty and stent insertion of right coronary artery with bare-metal stent. Bare-metal stent was put in because the patient has a nonalcoholic cirrhosis, thrombocytopenia, large inguinal hernia for which he may need surgical intervention, and long-term continued dual-antiplatelet therapy might not be suitable for him; atrial fibrillation prior to discharge; then he had a TYSHAWN, cardioversion converted to sinus rhythm, nonalcoholic cirrhosis of the liver, renal insufficiency, thrombocytopenia. PLAN: Continue aspirin indefinitely and Plavix for 4 weeks for bare-metal stent along with the other medications prescribed and we will follow with you. Richa Angeles MD
== END 2017-09-10 13:56 | disposition home or self-care (01) | DRG 468 ==
LOC: ED 04:07 → ERH 05:43 → 2RNO 07:52 → 2RSO 09-05 11:11
PROVIDERS: ADMIT Internal Medicine; ATTEND Internal Medicine
PROC: 02703DZ Dilation of Coronary Artery, One Artery with Intraluminal Device, Percutaneous Approach (ICD-10-PCS; principal; 2017-09-05)
PROC: 4A023N7 Measurement of Cardiac Sampling and Pressure, Left Heart, Percutaneous Approach (ICD-10-PCS; 2017-09-05)
PROC: B2151ZZ Fluoroscopy of Left Heart using Low Osmolar Contrast (ICD-10-PCS; 2017-09-05)
PROC: B2111ZZ Fluoroscopy of Multiple Coronary Arteries using Low Osmolar Contrast (ICD-10-PCS; 2017-09-05)
PROC: B2151ZZ Fluoroscopy of Left Heart using Low Osmolar Contrast (ICD-10-PCS; 2017-09-05)
PROC: B246ZZ4 Ultrasonography of Right and Left Heart, Transesophageal (ICD-10-PCS; 2017-09-08)
PROC: 5A2204Z Restoration of Cardiac Rhythm, Single (ICD-10-PCS; 2017-09-08)
DX: K72.90 Hepatic failure, unspecified without coma (principal); I47.2 Ventricular tachycardia; N17.9 Acute kidney failure, unspecified; J18.9 Pneumonia, unspecified organism; I42.9 Cardiomyopathy, unspecified; I13.0 Hypertensive heart and chronic kidney disease with heart failure and stage 1 through stage 4 chronic kidney disease, or unspecified chronic kidney disease; I85.00 Esophageal varices without bleeding; I50.9 Heart failure, unspecified; E44.0 Moderate protein-calorie malnutrition; R18.8 Other ascites; K75.81 Nonalcoholic steatohepatitis (NASH); E11.22 Type 2 diabetes mellitus with diabetic chronic kidney disease; D69.59 Other secondary thrombocytopenia; K74.69 Other cirrhosis of liver; N18.9 Chronic kidney disease, unspecified; I08.2 Rheumatic disorders of both aortic and tricuspid valves; E87.6 Hypokalemia; K76.6 Portal hypertension; D64.9 Anemia, unspecified; K21.9 Gastro-esophageal reflux disease without esophagitis; E83.119 Hemochromatosis, unspecified; I25.10 Atherosclerotic heart disease of native coronary artery without angina pectoris; I49.3 Ventricular premature depolarization; K82.8 Other specified diseases of gallbladder; Z87.19 Personal history of other diseases of the digestive system; Z82.49 Family history of ischemic heart disease and other diseases of the circulatory system; Z83.3 Family history of diabetes mellitus; Z87.891 Personal history of nicotine dependence; Z91.14 Patient's other noncompliance with medication regimen; Z95.5 Presence of coronary angioplasty implant and graft; R40.2412 Glasgow coma scale score 13-15, at arrival to emergency department; F41.9 Anxiety disorder, unspecified; F32.89 Other specified depressive episodes; K76.0 Fatty (change of) liver, not elsewhere classified; R94.39 Abnormal result of other cardiovascular function study; I48.0 Paroxysmal atrial fibrillation

== ENCOUNTER 2017-09-30 17:53 | Inpatient (IN) | payer MEDICAID ==
[2017-09-30 18:05] VITALS: BMI 20.9
--- NOTE | 2017-09-30 18:48 | ED PDOC ---
Arrival/HPI - General Chief Complaint: Abnormal Labs Time Seen by Provider: 09/30/17 17:56 Historian: Patient, Spouse - History of Present Illness Narrative History of Present Illness (Text): 09/30/17 18:52 Patient is a 62 yo male, past medical history of cirrhosis, past medical history of hepatic encephalopathy, presents to ED with history of increased fatigue and dizziness over the past several days. Partner states he has been very tired, but denies confusion or altered mental status. Patient reports moving his bowels daily without constipation. Denies bloody urine or stool. Denies chest pain or palpitations. Denies numbness or weakness. Denies leg pain or swelling. Time/Duration: Prior to Arrival Past Medical History - Provider Review Nursing Documentation Reviewed: Yes - Cardiac Hx Atrial Fibrillation: Yes - Pulmonary Hx Respiratory Disorders: Yes (SMOKED CIGARETTES,QUIT SMOKING.PPDQUIT 1.5 YR AGO ) Hx Pneumonia: Yes (09-02-17) - Neurological Hx Neurological Disorder: No - HEENT Hx HEENT Disorder: No - Renal Hx Renal Disorder: No - Endocrine/Metabolic Hx Endocrine Disorders: No - Hematological/Oncological Hx Blood Transfusions: Yes Hx Blood Transfusion Reaction: No - Integumentary Hx Dermatological Disorder: No - Musculoskeletal/Rheumatological Hx Musculoskeletal Disorders: Yes Hx Falls: Yes Hx Unsteady Gait: Yes - Gastrointestinal Hx Gastrointestinal Disorders: Yes (N0N ALCOHOLIC LIVER CIRRHOSIS,H/O GI BLEED, INGUINAL HERNIA REPAIR) Hx Gastroesophageal Reflux: Yes - Genitourinary/Gynecological Hx Genitourinary Disorders: No - Psychiatric Hx Psychophysiologic Disorder: No Hx Substance Use: No - Surgical History Hx Coronary Stent: Yes (09-05-17) - Anesthesia Hx Anesthesia Reactions: No Hx Malignant Hyperthermia: No Family/Social History - Physician Review Nursing Documentation Reviewed: Yes Family/Social History: Unknown Family HX Smoking Status: Former Smoker Hx Alcohol Use: No Hx Substance Use: No Allergies/Home Meds Allergies/Adverse Reactions: Allergies Beef Containing Products Allergy (Severe, Verified 09/30/17 18:07) ANAPHYLAXIS tounge swelling, beef derived (bovine) Allergy (Severe, Verified 09/30/17 18:07) ANAPHYLAXIS tounge swelling banana Allergy (Intermediate, Verified 09/30/17 18:07) ITCHING Home Medications: Home Meds Medication Instructions Recorded Confirmed Alprazolam [Xanax] 0.5 mg PO DAILY 07/21/17 09/30/17 Furosemide [Lasix] 40 mg PO DAILY 07/21/17 09/30/17 Pantoprazole [Protonix EC Tab] 40 mg PO DAILY 07/21/17 09/30/17 Nadolol [Corgard] 10 mg PO ONCE 09/30/17 09/30/17 Review of Systems - Review of Systems Constitutional: Fatigue. absent: Fevers Eyes: absent: Vision Changes ENT: absent: Hearing Changes Respiratory: absent: SOB, Cough Cardiovascular: absent: Chest Pain Gastrointestinal: absent: Abdominal Pain, Diarrhea, Appetite Changes, Hematochezia, Hematemesis Genitourinary Male: absent: Dysuria Musculoskeletal: absent: Back Pain Skin: absent: Rash Neurological: Dizziness, Gait Changes. absent: Headache, Focal Weakness, Seizure Endocrine: absent: Polyuria Hemo/Lymphatic: absent: Easy Bleeding Psychiatric: absent: Depression Physical Exam - Physical Exam Narrative Physical Exam (Text): 09/30/17 Head: Atraumatic. Normocephalic. Eyes: PERRL. EOMI. Conjunctivae are not pale. ENT: Mucous membranes are moist and intact. Oropharynx is clear and symmetric. Neck: Supple. Full ROM. No JVD. No lymphadenopathy. Cardiovascular: Regular rate. Regular rhythm. No murmurs, rubs, or gallops. Distal pulses are 2+ and symmetric. Pulmonary/Chest: No evidence of respiratory distress. Clear to auscultation bilaterally. No wheezing, rales or rhonchi. Abdominal: Soft and mildly distended. There is no tenderness. Inguinal hernia soft and nontender. No rebound, guarding, or rigidity. Good bowel sounds. Back: No CVA tenderness. Extremities: No edema. No cyanosis. No clubbing. Full range of motion in all extremities. No calf tenderness. Skin: Skin is warm and dry. No petechiae. No purpura. Neurological: Alert, awake, and oriented to person, place, time, and situation. Slow speech but not slurred. No asterixis. No meningeal signs. No tremor. Motor and sensory exam intact. Psychiatric: denies depression Rectal: no gross bleeding Vital Signs Reviewed: Yes Vital Signs Temp Pulse Resp BP Pulse Ox 09/30/17 20:53 60 105/66 09/30/17 20:49 60 18 105/66 100 09/30/17 18:20 97.4 F L 60 16 100/57 L 100 Temperature: Afebrile Blood Pressure: Hypotensive Pulse: Regular Respiratory Rate: Normal Appearance: Positive for: Well-Appearing, Non-Toxic, Comfortable Pain Distress: None Mental Status: Positive for: Alert and Oriented X 3 Finger Stick Blood Glucose: 94 Medical Decision Making ED Course and Treatment: 09/30/17 21:03 Patient's history reviewed with his physician, Dr. Bishop, prior to arrival. Patient with recent admission which was reviewed. As per PMD, outpatient blood tests revealed elevated ammonia level. Patient states that over past several weeks he has been progressively fatigued and weaker. No altered mental status noted. No fever. No diarrhea. He is not taking Lactulose currently. On exam he is alert, nontoxic appearing, but fatigued. Slightly hypotensive, although denies chest pain or acute sob. CXR reveals likely right pleural effusion, compared to prior chest xray. On examination he is noted to have no respiratory distress. Ammonia level here in ED is slightly elevated. Abdomen is soft and nontender. Anemia noted but at previous baseline and currently no active bleeding noted. There is inguinal hernia that is chronic, soft and nontender. As per PMD will admit for evaluation of possible hepatic encephalopathy, case accepted by Dr. Aretha diana for hospitalist. 09/30/17 21:09 - Lab Interpretations Lab Results: 09/30/17 18:35 09/30/17 18:35 Lab Results 09/30/17 19:11: Urine Color Light yellow, Urine Appearance Clear, Urine pH 6.0, Ur Specific [place] 1.010, Urine Protein Negative, Urine Glucose (UA) Negative, Urine Ketones Negative, Urine Blood Negative, Urine Nitrate Negative, Urine Bilirubin Negative, Urine Urobilinogen 0.2, Ur Leukocyte Esterase Negative 09/30/17 18:35: pO2 47, VBG pH 7.42, VBG pCO2 43.0, VBG HCO3 27.9, VBG Total CO2 29.2 H, VBG O2 Sat (Calc) 85.6 H, VBG Base Excess 2.9 H, VBG Potassium 4.1, Sodium 136.0, Chloride 103.0, Glucose 103, Lactate 2.6 H, FiO2 21.0, Venous Blood Potassium 4.1 09/30/17 18:35: Salicylates < 1 L 09/30/17 18:35: Sodium 136, Chloride 102, Potassium 4.1, Carbon Dioxide 25, Anion Gap 13, BUN 31 H, Creatinine 1.4, Est GFR ( Amer) > 60, Est GFR ( Non-Af Amer) 51, Random Glucose 102, Calcium 9.3, Magnesium 2.0, Total Bilirubin 2.1 H, AST 66 H, ALT 28, Alkaline Phosphatase 247 H D, Lactate Dehydrogenase 583, Total Creatine Kinase 100, Troponin I 0.02 D, Total Protein 8.9 H, Albumin 3.3, Globulin 5.6, Albumin/Globulin Ratio 0.6 L, Amylase 43, Lipase 75 09/30/17 18:35: PT 15.4 H, INR 1.40 H, APTT 36.4 09/30/17 18:35: WBC 5.8, RBC 2.61 L, Hgb 9.3 L, Hct 27.4 L, MCV 105.0, MCH 35.6 H, MCHC 33.9, RDW 16.0 H, Plt Count 171, MPV 9.7, Gran % 62.5, Lymph % (Auto) 17.8 L, Thur[place] % (Auto) 15.8 H, Eos % (Auto) 2.9, Baso % (Auto) 1.0, Gran # 3.64, Lymph # 1.0 L, [place] # 0.9 H, Eos # 0.2, Baso # 0.06 09/30/17 18:35: Ammonia 46 H - RAD Interpretation Radiology Orders: 09/30/17 18:19 CHEST PORTABLE [RAD] Stat - EKG Interpretation EKG Interpretation (Text): 09/30/17 21:03 EKG at 18:15 sinus bradycardia rate of [address] elevations Interpreted by ED Physician: Yes Type: 12 lead EKG - Medication Orders Current Medication Orders: Alprazolam (Xanax) 0.5 mg PO DAILY [place] PRN Reason: Protocol Stop: 10/08/17 10:01 Aspirin (Ecotrin) 81 mg PO DAILY [place] Clopidogrel Bisulfate (Plavix) 75 mg PO DAILY [facility] Albumin Human (Albumin Human 25% (25 Gm/100 Ml)) 100 mls @ 1 mls/min IVPB Q4H [place] Stop: 10/01/17 06:09 Last Admin: 09/30/17 20:50 Dose: 1 mls/min eMAR Start Stop Document 09/30/17 20:50 EQ (Rec: 09/30/17 20:50 EQ [id number]) Intravenous Solution Start Date 09/30/17 Start Time 20:50 Pantoprazole Sodium (Protonix Ec Tab) 40 mg PO DAILY [place] Spironolactone (Aldactone) 100 mg PO DAILY [facility] Discontinued Medications Lactulose (Enulose) 20 gm PO BID STA Stop: 09/30/17 20:23 Last Admin: 09/30/17 20:53 Dose: Not Given Non-Admin Reason: Patient Refused Nadolol (Corgard) 10 mg PO ONCE ONE Stop: 09/30/17 20:31 Last Admin: 09/30/17 20:53 Dose: MAR Pulse and Blood Pressure Document 09/30/17 20:53 EQ (Rec: 09/30/17 20:53 EQ [id number]) Pulse Pulse Rate (60-90 beats/min) 60 Blood Pressure Blood Pressure (100/60-150/90 mm Hg) 105/66 Disposition/Present on Arrival - Present on Arrival Any Indicators Present on Arrival: No History of DVT/PE: No History of Uncontrolled Diabetes: No Urinary Catheter: No History of Decub. Ulcer: No History Surgical Site Infection Following: None - Disposition Have Diagnosis and Disposition been Completed?: Yes Diagnosis: Hepatic encephalopathy, Pleural effusion, right Disposition: HOSPITALIZED Disposition Time: 19:30 Patient Plan: Admission, Telemetry Condition: SERIOUS
[2017-09-30 18:49] LABS: VENOUS BLOOD GAS BASE EXCESS 2.9 mmol/L (0.0-2.0); VENOUS BLOOD PH 7.42 (7.32-7.43)
[2017-09-30 18:50] LABS: BASO # 0.06 K/mm3 (0.0-2.0); EOS # 0.2 (0.0-0.7); EOS % 2.9 % (1.5-5.0); GRAN # 3.64 (1.4-6.5); GRAN % 62.5 % (50.0-68.0); HEMATOCRIT 27.4 % (42.0-52.0); LYMPH % 17.8 % (22.0-35.0); MEAN CORPUSCULAR HEMOGLOBIN 35.6 pg (25.0-35.0); MEAN CORPUSCULAR HGB CONC 33.9 g/dl (31.0-37.0); MEAN PLATELET VOLUME 9.7 fl (7.0-11.0); MONO # 0.9 (0.1-0.6); MONO % 15.8 % (1.0-6.0); WHITE BLOOD COUNT 5.8 10^3/ul (4.5-11.0)
[2017-09-30 19:03] LABS: ALB/GLOB RATIO 0.6 (1.1-1.8); ALKALINE PHOSPHATASE 247 U/L (38-126); ALT/SGPT 28 U/L (7-56); AMYLASE 43 U/L (35-125); AST/SGOT 66 U/L (17-59); BILIRUBIN,TOTAL 2.1 mg/dL (0.2-1.3); BLOOD UREA NITROGEN 31 mg/dL (7-21); CALCIUM 9.3 mg/dL (8.4-10.5); CARBON DIOXIDE 25 mmol/L (21-33); CHLORIDE 102 mmol/L (98-107); GFR AFRICAN-AMERICAN > 60; GLUCOSE,RANDOM 102 mg/dL (70-110); LIPASE 75 U/L (23-300); POTASSIUM 4.1 mmol/L (3.6-5.0); SODIUM 136 mmol/L (132-148); TOTAL PROTEIN 8.9 g/dL (5.8-8.3)
[2017-09-30 19:14] LABS: TROPONIN I 0.02 ng/mL
[2017-09-30 19:16] LABS: INR 1.4 (0.93-1.08); PARTIAL THROMBOPLASTIN TIME 36.4 Seconds (25.1-36.5)
[2017-09-30 19:17] LABS: URINE BILIRUBIN NEGATIVE (NEGATIVE); URINE BLOOD NEGATIVE (NEGATIVE); URINE GLUCOSE (UA) NEGATIVE (NEGATIVE); URINE KETONE NEGATIVE (NEGATIVE); URINE LEUKOCYTE ESTERASE NEGATIVE Leu/uL (NEGATIVE); URINE PROTEIN NEGATIVE mg/dL (<30 mg/dL); URINE UROBILINOGEN 0.2 E.U./dL (<1 E.U./dL)
[2017-09-30 19:18] LABS: URINE APPEARANCE CLEAR (CLEAR); URINE COLOR LIGHT YELLOW (YELLOW)
--- NOTE | 2017-09-30 20:30 | CP.PCM.HP ---
<Bekah Hwang - Last Filed: 09/30/17 21:27> History of Present Illness - History of Present Illness History of Present Illness: CC: "I feel dizzy and nauseous" HPI: Patient is a 62 year old male with past medical history of TRUJILLO, afib s/p cardioversion, HTN, GERD, CHF presents to the ED for dizziness and fatigue that started yesterday. Patient states that he was sitting down watching TV when the dizziness started. Feels like he is spinning. Intermittent in nature. Denies any aggravating or alleviating factors. Also states that he has been feeling nauseous for the past week and has been having decreased PO intake. Offers no other complaints at this time. Denies headaches, visual changes, hearing changes , cp, palpitations, sob, abdominal pain, urinary symptoms. He reports having regular BMs. PMD: Dr Bishop Green Plumber: Dr Angeles Allergies: Beef products, banana Medications: Plavix 75mg, ASA 81, Lasix 40mg, Nadolol 10mg, Spiranaldactone 100mg, Xanax 0.5mg Medical Hx: HTN, GERD, Non-alcoholic liver cirrhosis, Ascites, CHF, afib s/p cardioversion Surgical Hx: Inguinal hernia repair Social Hx: Denies alcohol, drug used; Former smoker, quit 1 1/2 ago Family Hx: Mother - DM, heart disease; Father - CA Present on Admission - Present on Admission Any Indicators Present on Admission: No Review of Systems - Constitutional Constitutional: Fatigue, Lethargy. absent: Chills, Fever, Headache - EENT Eyes: absent: Change in Vision Ears: Dizziness - Cardiovascular Cardiovascular: absent: Chest Pain, Dyspnea, Lightheadedness, Palpitations, Syncope - Respiratory Respiratory: absent: Cough, Dyspnea, Wheezing - Gastrointestinal Gastrointestinal: Nausea. absent: Abdominal Pain, Change in Bowel Habits, Constipation, Diarrhea, Vomiting - Genitourinary Genitourinary: absent: Dysuria, Hematuria - Neurological Neurological: Dizziness. absent: Confusion, Headaches, Syncope, Tingling Past Patient History - Past Social History Smoking Status: Former Smoker - CARDIAC Hx Atrial Fibrillation: Yes - PULMONARY Hx Respiratory Disorders: Yes (SMOKED CIGARETTES,QUIT SMOKING.PPDQUIT 1.5 YR AGO ) Hx Pneumonia: Yes (09-02-17) - NEUROLOGICAL Hx Neurological Disorder: No - HEENT Hx HEENT Problems: No - RENAL Hx Chronic Kidney Disease: No - ENDOCRINE/METABOLIC Hx Endocrine Disorders: No - HEMATOLOGICAL/ONCOLOGICAL Hx Blood Transfusions: Yes Hx Blood Transfusion Reaction: No - INTEGUMENTARY Hx Dermatological Problems: No - MUSCULOSKELETAL/RHEUMATOLOGICAL Hx Musculoskeletal Disorders: Yes Hx Falls: Yes Hx Unsteady Gait: Yes - GASTROINTESTINAL Hx Gastrointestinal Disorders: Yes (N0N ALCOHOLIC LIVER CIRRHOSIS,H/O GI BLEED, INGUINAL HERNIA REPAIR) Hx Gastroesophageal Reflux: Yes - GENITOURINARY/GYNECOLOGICAL Hx Genitourinary Disorders: No - PSYCHIATRIC Hx Psychophysiologic Disorder: No Hx Substance Use: No - SURGICAL HISTORY Hx Coronary Stent: Yes (09-05-17) - ANESTHESIA Hx Anesthesia Reactions: No Hx Malignant Hyperthermia: No Meds Allergies/Adverse Reactions: Allergies Allergy/AdvReac Type Severity Reaction Status Date / Time Beef Containing Products Allergy Severe ANAPHYLAXIS Verified 09/30/17 18:07 beef derived (bovine) Allergy Severe ANAPHYLAXIS Verified 09/30/17 18:07 banana Allergy Intermediate ITCHING Verified 09/30/17 18:07 Physical Exam - Constitutional Appears: Well, No Acute Distress - Head Exam Head Exam: ATRAUMATIC, NORMAL INSPECTION - Eye Exam Eye Exam: EOMI, PERRL, Scleral icterus Pupil Exam: NORMAL ACCOMODATION - ENT Exam ENT Exam: Mucous Membranes Dry - Neck Exam Neck exam: Positive for: Full Rom - Respiratory Exam Respiratory Exam: Decreased Breath Sounds, NORMAL BREATHING PATTERN. absent: Rales, Rhonchi, Wheezes, Respiratory Distress - Cardiovascular Exam Cardiovascular Exam: REGULAR RHYTHM, +S1, +S2 - GI/Abdominal Exam GI & Abdominal Exam: Distended, Normal Bowel Sounds, Soft. absent: Rebound, Rigid, Tenderness - Extremities Exam Extremities exam: Positive for: pedal pulses present. Negative for: calf tenderness, joint swelling Additional comments: +Mild asterixis - Back Exam Back exam: NORMAL INSPECTION - Neurological Exam Neurological exam: Alert, Oriented x3 - Psychiatric Exam Psychiatric exam: Normal Affect, Normal Mood - Skin Skin Exam: Dry, Normal Color, Warm Results - Vital Signs Recent Vital Signs: Last Vital Signs Temp 97.4 F L 09/30/17 18:20 Pulse 60 09/30/17 18:20 Resp 16 09/30/17 18:20 BP 100/57 L 09/30/17 18:20 Pulse Ox 100 09/30/17 18:20 - Labs Result Diagrams: 09/30/17 18:35 09/30/17 18:35 Assessment & Plan - Assessment and Plan (Free Text) Assessment: Patient is a 62 year old male with past medical history of Non-alcoholic liver cirrhosis, HTN, GERD, CHF (EF 45-50%) presents to [facility] with dizziness and fatigue that started yesterday. Plan: 1. Dizziness likely 2/2 possible hepatic encephalopathy, dehydration, symptomatic bradycardia -Stable, afebrile -Place on observation, remote telemetry -Ammonia 46 on admission -Lactulose 20gm BID -Albumin 25mg IV Q4H x 3 bags -EKG showing sinus bradycardia at 58 bpm -Orthostatics ordered -Hold lasix at this time -Will hold nadolol also -Fall precautions -PT eval ordered 2. Elevated Lactate -Lactate 2.4 on VBG -R/O infectious etiology -F/U blood cx, urine cx, procal -F/U repeat lactate 3. Anemia (likely secondary to chronic disease) - Hgb 9.3 on admission, appears to be baseline from previous admission - No active signs of bleeding at this time - Will continue to monitor 4. History of Afib s/p cardioversion -EKG showing sinus bradycardia at 58 bpm -History of CAD s/p cardiac cath with bare metal stent placement, continue ASA and plavix -History of GI bleed when on coumadin, no active signs of bleeding at this time 5. History of TRUJILLO with ascites -Appears stable at this time -Continue Aldactone 100mg -AST/ALT 66/28 T bili 2.1 6. CHF (diastolic dysfunction) -Last echo 08/2017 showed normal LVEF and LV size, dilated RA/RV/LA -Does not appear fluid overloaded at this time -CXR showing what appears to be possible right pleural effusion -F/U official CXR read -Continue Aldactone 100mg -Strict I/Os -Daily weights -HOB > 30 degrees 7. History of Hypertension -Low BPs currently -Will hold nadolol at this time -F/U orthostatics 8. Anxiety/Depression -Continue Xanax GI/DVT PPx -Protonix -SCDs Plan discussed with attending Dr Carias <Aretha GARCIA,Nikolai - Last Filed: 10/01/17 03:58> Results - Vital Signs Recent Vital Signs: Last Vital Signs Temp 97.6 F 10/01/17 00:00 Pulse 62 10/01/17 00:00 Resp 19 10/01/17 00:00 BP 104/66 10/01/17 00:00 Pulse Ox 100 10/01/17 00:00 - Labs Result Diagrams: 09/30/17 18:35 09/30/17 18:35 Labs: Laboratory Results - last 24 hr 09/30/17 22:06 pO2 18 L VBG pH 7.47 H VBG pCO2 41.0 VBG HCO3 29.8 H VBG Total CO2 31.1 H VBG O2 Sat (Calc) 28.4 L VBG Base Excess 5.6 H VBG Potassium 4.0 Sodium 137.0 Chloride 104.0 Glucose 101 Lactate 2.0 FiO2 21.0 Venous Blood Potassium 4.0 Attending/Attestation - Attestation I have personally seen and examined this patient.: Yes I have fully participated in the care of the patient.: Yes I have reviewed all pertinent clinical information: Yes Notes (Text): -I agree with the above H&P completed by the resident physician with the following additions and/or changes: -The patient is a 62 year old man with a history of TRUJILLO, hepatic encephalopathy HTN, GERD, CHF (EF=45-50%) and CAD (s/p PCI in 08/2017), who presents with 2-3 days of worsening dizziness and generalized weakness. He denies any fevers, chills, dysuria, chest pain, SOB, abdominal distention, altered mental status, focal neuro deficits, recent trauma, diarrhea or vomiting. He reports 1-2 regular bowel movements daily. On ED labs, he was found to have a slightly elevated serum ammonia level as well as evidence of mild bilateral asterixes on physical examination. Consequently, he will be treated empirically for hepatic encephalopathy with Lactulose PO BID. If his symptoms persist despite treatment with Lactulose, then we will defer to the primary day team to consider alternative etiologies. Blood and urine cultures, orthostatic vitals and a TSH have all been ordered. Also, because the patient clinically appears dehydrated, we will hold all of his home diuretic meds overnight and administer IV Albumin 25g Q4hrs x 3 doses.
[2017-09-30 22:11] LABS: VENOUS BLOOD GAS BASE EXCESS 5.6 mmol/L (0.0-2.0); VENOUS BLOOD PH 7.47 (7.32-7.43)
[2017-10-01] MEDS: Pantoprazole 40 mg EC Tab PO SCH (06:15)
[2017-10-01 07:22] LABS: BASO # 0.03 K/mm3 (0.0-2.0); BASO % 0.7 % (0.0-3.0); EOS # 0.1 (0.0-0.7); EOS % 2.9 % (1.5-5.0); GRAN # 2.28 (1.4-6.5); GRAN % 50.8 % (50.0-68.0); LYMPH # 1.2 (1.2-3.4); LYMPH % 26.6 % (22.0-35.0); MEAN CELL VOLUME 104.7 fl (80.0-105.0); MEAN CORPUSCULAR HEMOGLOBIN 35.8 pg (25.0-35.0); MEAN CORPUSCULAR HGB CONC 34.2 g/dl (31.0-37.0); MEAN PLATELET VOLUME 9.3 fl (7.0-11.0); MONO # 0.9 (0.1-0.6); RED CELL DISTRIBUTION WIDTH 15.9 % (11.5-14.5); WHITE BLOOD COUNT 4.5 10^3/ul (4.5-11.0)
[2017-10-01 07:30] LABS: HEMATOCRIT 22.5 % (42.0-52.0)
[2017-10-01 07:36] LABS: ALB/GLOB RATIO 0.8 (1.1-1.8); ALKALINE PHOSPHATASE 164 U/L (38-126); ALT/SGPT 34 U/L (7-56); AST/SGOT 45 U/L (17-59); BILIRUBIN,TOTAL 2.4 mg/dL (0.2-1.3); BLOOD UREA NITROGEN 29 mg/dL (7-21); CALCIUM 9.2 mg/dL (8.4-10.5); CARBON DIOXIDE 27 mmol/L (21-33); CHLORIDE 103 mmol/L (98-107); GFR AFRICAN-AMERICAN > 60; GLUCOSE,RANDOM 81 mg/dL (70-110); MAGNESIUM 1.9 mg/dL (1.7-2.2); PHOSPHOROUS 3.3 mg/dL (2.5-4.5); POTASSIUM 3.7 mmol/L (3.6-5.0); SODIUM 138 mmol/L (132-148); TOTAL PROTEIN 7.7 g/dL (5.8-8.3)
[2017-10-01 07:52] LABS: FREE T4 1.89 ng/dL (0.78-2.19)
[2017-10-01 08:06] LABS: THYROID STIMULATING HORMONE 0.32 mIU/mL (0.46-4.68)
--- NOTE | 2017-10-01 08:21 | RAD ---
HISTORY: weakness COMPARISON: Comparison is made to the previous study dated 09/02/2017 FINDINGS: LUNGS: Interval resolving of the previously seen hazy opacity at the right lower lung since the previous exam. PLEURA: There is persistent small to moderate right pleural effusion and blunting of the right costophrenic angle. CARDIOVASCULAR: Normal. OSSEOUS STRUCTURES: No significant abnormalities. VISUALIZED UPPER ABDOMEN: Normal. OTHER FINDINGS: None. IMPRESSION: No evidence of focal infiltrate or consolidation in the lungs. Persistent blunting of the right costophrenic angle and right lower chest homogeneous opacity likely represent pleural effusion.
--- NOTE | 2017-10-01 10:13 | CARD ---
APPROVED REPORT EKG Measurement Heart [id number] <Conclusion> Sinus bradycardia Otherwise normal ECG
--- NOTE | 2017-10-01 14:17 | CP.PCM.PN ---
<Forrest Malloy - Last Filed: 10/02/17 08:38> Subjective - Date & Time of Evaluation Date of Evaluation: 10/01/17 Time of Evaluation: 09:00 - Subjective Subjective: Patient was seen and examined at bedside with no acute complaints. Did mention how lately he has been feeling fatigued and dizzy. It was explained to patient that these symptoms are due to his hepatic encephalopathy. Patient states he did not want to take lactulose due to the side effect of diarrhea, discussed with patient that he will be placed on rifaximin; patient agrees with plan. Denies shortness of breath, chest pain, nausea, cough, fevers, chills. Objective - Vital Signs/Intake and Output Vital Signs (last 24 hours): Temp Pulse Resp BP Pulse Ox 98.0 F 62 18 97/54 L 100 10/01/17 06:00 10/01/17 06:00 10/01/17 06:00 10/01/17 06:00 10/01/17 06:00 Intake and Output: 10/01/17 10/01/17 06:59 18:59 Intake Total 300 480 Balance 300 480 - Medications Medications: Current Medications Alprazolam (Xanax) 0.5 mg PO HS PRN; Protocol PRN Reason: Anxiety Stop: 10/08/17 22:01 Last Admin: 10/01/17 02:11 Dose: 0.5 mg Aspirin (Ecotrin) 81 mg PO DAILY [facility] Last Admin: 10/01/17 09:40 Dose: 81 mg Clopidogrel Bisulfate (Plavix) 75 mg PO DAILY [facility] Last Admin: 10/01/17 09:40 Dose: 75 mg Ondansetron HCl (Zofran Inj) 4 mg IVP Q4H PRN PRN Reason: Nausea/Vomiting Pantoprazole Sodium (Protonix Ec Tab) 40 mg PO 0600 [facility] Last Admin: 10/01/17 06:15 Dose: 40 mg Rifaximin (Xifaxan) 550 mg PO BID [facility] PRN Reason: Protocol - Labs Labs: 10/01/17 07:00 10/01/17 07:00 PT 15.4 SECONDS (9.4-12.5) H 09/30/17 18:35 INR 1.40 (0.93-1.08) H 09/30/17 18:35 APTT 36.4 Seconds (25.1-36.5) 09/30/17 18:35 - Constitutional Appears: Non-toxic, No Acute Distress - Head Exam Head Exam: ATRAUMATIC, NORMAL INSPECTION, NORMOCEPHALIC - Eye Exam Eye Exam: EOMI, Normal appearance. absent: Scleral icterus Pupil Exam: NORMAL ACCOMODATION - ENT Exam ENT Exam: Mucous Membranes Moist, Normal Exam - Neck Exam Neck Exam: Full ROM, Normal Inspection - Respiratory Exam Respiratory Exam: Clear to Ausculation Bilateral, NORMAL BREATHING PATTERN. absent: Rales, Rhonchi, Wheezes - Cardiovascular Exam Cardiovascular Exam: REGULAR RHYTHM, +S1, +S2 - Extremities Exam Extremities Exam: Normal Inspection. absent: Calf Tenderness, Pedal Edema - Back Exam Back Exam: NORMAL INSPECTION. absent: rash noted - Neurological Exam Neurological Exam: Alert, Awake, Oriented x3 - Psychiatric Exam Psychiatric exam: Normal Affect, Normal Mood - Skin Skin Exam: Normal Color, Warm Assessment and Plan - Assessment and Plan (Free Text) Assessment: Patient is a 62 year old male with past medical history of Non-alcoholic liver cirrhosis, HTN, GERD, CHF (EF 45-50%), atrial fibrillation, ascites presenting to [facility] with dizziness and fatigue that started yesterday found to be in a state of hepatic encephalopathy. Plan: 1. Dizziness likely 2/2 possible hepatic encephalopathy, dehydration, symptomatic bradycardia -Stable, afebrile -Ammonia 46 on admission, currently 53; continue to monitor -Lactulose was refused by patient, will place patient on rifaximin -EKG showing sinus bradycardia at 58 bpm -Orthostatics -Continue to hold lasix and nadolol -Fall precautions -PT eval ordered 2. Elevated Lactate -Lactate initially 2.6 on VBG, now 2.0 the following day -Blood and urine cultures ordered; results pending -Procalcitonin within normal limits -CRP elevated >15 3. Anemia (likely secondary to chronic disease) - Hgb currently 7.7 has decreased from 9.3 on admission; patient asymptomatic - Repeat CBC ordered to check H&H; results pending - Type and Screened in case transfusion necessary - Continue to monitor patient's status and vitals 4. History of Afib s/p cardioversion -Bare metal stent placement s/p cardiac cath, continue ASA and plavix 5. History of TRUJILLO with ascites -Continue Aldactone 100mg -AST/ALT 66/28 on admission has decreased to 45/34 -T bili 2.1 on admission has increased to 2.4 -GI consulted; recs appreciated 6. CHF (diastolic dysfunction) -Last echo 08/2017 showed normal LVEF and LV size, dilated RA/RV/LA -CXR reveals possible right pleural effusion; will continue to monitor -Continue Aldactone 100mg -Strict I/Os -Daily weights -HOB > 30 degrees 7. History of Hypertension -BP stable -Continue to hold nadolol -F/U orthostatics 8. Anxiety/Depression -Continue Xanax GI/DVT PPx -Protonix/SCDs Patient was seen, examined and discussed with attending, Dr. Das <Fay Das - Last Filed: 10/02/17 15:05> Objective - Vital Signs/Intake and Output Vital Signs (last 24 hours): Temp Pulse Resp BP Pulse Ox 98.1 F 66 20 108/61 98 10/02/17 06:00 10/02/17 10:00 10/02/17 06:00 10/02/17 06:00 10/02/17 06:00 Intake and Output: 10/02/17 10/02/17 06:59 18:59 Intake Total 420 Output Total 0 Balance 420 - Medications Medications: Current Medications Alprazolam (Xanax) 0.5 mg PO HS PRN; Protocol PRN Reason: Anxiety Stop: 10/08/17 22:01 Last Admin: 10/01/17 22:12 Dose: 0.5 mg Aspirin (Ecotrin) 81 mg PO DAILY [facility] Last Admin: 10/02/17 09:53 Dose: 81 mg Clopidogrel Bisulfate (Plavix) 75 mg PO DAILY [facility] Last Admin: 10/02/17 09:53 Dose: 75 mg Ondansetron HCl (Zofran Inj) 4 mg IVP Q4H PRN PRN Reason: Nausea/Vomiting Pantoprazole Sodium (Protonix Ec Tab) 40 mg PO 0600 [facility] Last Admin: 10/02/17 06:31 Dose: 40 mg Rifaximin (Xifaxan) 550 mg PO BID [facility] PRN Reason: Protocol Last Admin: 10/02/17 09:53 Dose: 550 mg - Labs Labs: 10/02/17 06:00 10/02/17 06:00 PT 15.4 SECONDS (9.4-12.5) H 09/30/17 18:35 INR 1.40 (0.93-1.08) H 09/30/17 18:35 APTT 36.4 Seconds (25.1-36.5) 09/30/17 18:35 Attending/Attestation - Attestation I have personally seen and examined this patient.: Yes I have fully participated in the care of the patient.: Yes I have reviewed all pertinent clinical information, including history, physical exam and plan: Yes Notes (Text): I have seen and examined the patient at bedside. Agree with the above note with the following additions/ exceptions: Briefly this is 62 year old male with history of TRUJILLO, former smoker, former social alcohol drinker, HTN, CHF (EF~45- 50%), afib rate controlled not on anticoagulation due to GI bleed, cryptogenic cirrhosis, CAD s/p bare metal stent on aspirin and plavix (only 4 weeks) who came for evaluation of dizziness and generalized weakness most likely due to hepatic encephalopathy. Ammonia level elevated and patient was refusing lactulose due to side effect of diarrhea. Start rifaxamin. Continue to hold lasix, nadolol and aldactone. BP is on the lower side. Upon discharge patient will follow up with Dr Lew. Dr Fay Das
--- NOTE | 2017-10-01 14:27 | CP.PCM.CON ---
<Fuentes Dixon - Last Filed: 10/01/17 15:01> History of Present Illness - History of Present Illness History of Present Illness: PGY4 Initial Consult Note Reason for consult: elevated LFTs Emilio Lane is a 62 year old male with a hx of TRUJILLO, afib s/p cardioversion, HTN, GERD, CHF presents to the ED for dizziness and fatigue that started yesterday. Patient states that he was sitting down watching TV when the dizziness started. Feels like he is spinning. Intermittent in nature. Denies any aggravating or alleviating factors. He notes that he has been having decreased PO intake for the last few weeks. Pt was previously admiitted for chest pain and is s/p bare metal stent 1 months ago. He was subsequently placed on plavix and aspirin. He has chronic elevated hyperbilirubinema around ~2. Pt states that the etiology of cirrhosis is unknown, but states that he does not currently follow a tipple operator. Pt notes that he has had three previous paracentesis and his last one was at the beginning of summer at [facility].. He states that he was admitted to [place] for upper GI bleed. He states that at the time, an endoscopy was not preformed. He states that he was previously on diuretics and nadolol after discharge from [place]. He denies any previous endoscopy and colonscopy. PMD: Dr Bishop Fast Food Server: Dr Angeles Allergies: Beef products, banana Medical Hx: HTN, GERD, Non-alcoholic liver cirrhosis, Ascites, CHF, afib s/p cardioversion Surgical Hx: Inguinal hernia repair Social Hx: Denies alcohol, drug used; Former smoker, quit 1 1/2 ago Family Hx: Mother - [place], heart disease; Father - [place] ROS: 12-point ROS conducted, neg other than above Past Patient History - Past Social History Smoking Status: Former Smoker - CARDIAC Hx Cardiac Disorders: Yes Hx Hypertension: Yes - PULMONARY Hx Respiratory Disorders: Yes (SMOKED CIGARETTES,QUIT SMOKING.PPDQUIT 1.5 YR AGO ) Hx Pneumonia: Yes (09-02-17) - NEUROLOGICAL Hx Neurological Disorder: No - HEENT Hx HEENT Problems: No - RENAL Hx Chronic Kidney Disease: No - ENDOCRINE/METABOLIC Hx Endocrine Disorders: No - HEMATOLOGICAL/ONCOLOGICAL Hx Blood Disorders: Yes Hx Cirrhosis: Yes (PARACENTESIS) - INTEGUMENTARY Hx Dermatological Problems: No - MUSCULOSKELETAL/RHEUMATOLOGICAL Hx Musculoskeletal Disorders: Yes Hx Falls: Yes Hx Unsteady Gait: Yes - GASTROINTESTINAL Hx Gastrointestinal Disorders: Yes (N0N ALCOHOLIC LIVER CIRRHOSIS,H/O GI BLEED, INGUINAL HERNIA REPAIR) Hx Gastroesophageal Reflux: Yes - GENITOURINARY/GYNECOLOGICAL Hx Genitourinary Disorders: No - PSYCHIATRIC Hx Psychophysiologic Disorder: No - SURGICAL HISTORY Hx Surgeries: Yes Hx Coronary Stent: Yes (09-05-17) - ANESTHESIA Hx Anesthesia Reactions: No Hx Malignant Hyperthermia: No Meds Allergies/Adverse Reactions: Allergies Allergy/AdvReac Type Severity Reaction Status Date / Time Beef Containing Products Allergy Severe ANAPHYLAXIS Verified 09/30/17 18:07 beef derived (bovine) Allergy Severe ANAPHYLAXIS Verified 09/30/17 18:07 banana Allergy Intermediate ITCHING Verified 09/30/17 18:07 - Medications Medications: Current Medications Alprazolam (Xanax) 0.5 mg PO PRN; Protocol PRN Reason: Anxiety Stop: 10/08/17 22:01 Last Admin: 10/01/17 02:11 Dose: 0.5 mg Aspirin (Ecotrin) 81 mg PO DAILY [facility] Last Admin: 10/01/17 09:40 Dose: 81 mg Clopidogrel Bisulfate (Plavix) 75 mg PO DAILY [facility] Last Admin: 10/01/17 09:40 Dose: 75 mg Ondansetron HCl (Zofran Inj) 4 mg IVP Q4H PRN PRN Reason: Nausea/Vomiting Pantoprazole Sodium (Protonix Ec Tab) 40 mg PO 0600 [facility] Last Admin: 10/01/17 06:15 Dose: 40 mg Rifaximin (Xifaxan) 550 mg PO BID [facility] PRN Reason: Protocol Physical Exam - Constitutional Appears: Well, No Acute Distress - Head Exam Head Exam: ATRAUMATIC, NORMOCEPHALIC - Eye Exam Eye Exam: Normal appearance - ENT Exam ENT Exam: Mucous Membranes Moist - Respiratory Exam Respiratory Exam: Clear to Auscultation Bilateral. absent: Rales, Rhonchi, Wheezes, Respiratory Distress - Cardiovascular Exam Cardiovascular Exam: Irregular Rhythm - GI/Abdominal Exam GI & Abdominal Exam: Normal Bowel Sounds, Soft. absent: Firm, Guarding, Organomegaly, Rigid, Tenderness - Extremities Exam Extremities exam: Negative for: joint swelling, pedal edema - Neurological Exam Neurological exam: Alert, Oriented x3 - Psychiatric Exam Psychiatric exam: Normal Affect, Normal Mood - Skin Skin Exam: Dry, Intact, Normal Color, Warm Results - Vital Signs Recent Vital Signs: Last Vital Signs Temp 98.0 F 10/01/17 06:00 Pulse 62 10/01/17 06:00 Resp 18 10/01/17 06:00 BP 97/54 L 10/01/17 06:00 Pulse Ox 100 10/01/17 06:00 - Labs Result Diagrams: 10/01/17 07:00 10/01/17 07:00 Labs: Laboratory Results - last 24 hr 09/30/17 10/01/17 10/01/17 22:06 07:00 07:00 WBC 4.5 D RBC 2.15 L Hgb 7.7 L Hct 22.5 L MCV 104.7 MCH 35.8 H MCHC 34.2 RDW 15.9 H Plt Count 129 MPV 9.3 Gran % 50.8 Lymph % (Auto) 26.6 Alcorn % (Auto) 19.0 H Eos % (Auto) 2.9 Baso % (Auto) 0.7 Gran # 2.28 Lymph # 1.2 Alcorn # 0.9 H Eos # 0.1 Baso # 0.03 pO2 18 L VBG pH 7.47 H VBG pCO2 41.0 VBG HCO3 29.8 H VBG Total CO2 31.1 H VBG O2 Sat (Calc) 28.4 L VBG Base Excess 5.6 H VBG Potassium 4.0 Sodium 137.0 Chloride 104.0 Glucose 101 Lactate 2.0 FiO2 21.0 Potassium Carbon Dioxide Anion Gap BUN Creatinine Est GFR ( Amer) Est GFR (Non-Af Amer) Random Glucose Lactic Acid Calcium Phosphorus Magnesium Total Bilirubin AST ALT Alkaline Phosphatase Ammonia C-React Prot High Sens Total Protein Albumin Globulin Albumin/Globulin Ratio Procalcitonin 0.26 Free T4 TSH 3rd Generation Venous Blood Potassium 4.0 Blood Type Blood Type Confirm Antibody Screen BBK History Checked 10/01/17 10/01/17 10/01/17 07:00 07:00 07:00 WBC RBC Hgb Hct MCV MCH MCHC RDW Plt Count MPV Gran % Lymph % (Auto) Alcorn % (Auto) Eos % (Auto) Baso % (Auto) Gran # Lymph # Alcorn # Eos # Baso # pO2 VBG pH VBG pCO2 VBG HCO3 VBG Total CO2 VBG O2 Sat (Calc) VBG Base Excess VBG Potassium Sodium 138 Chloride 103 Glucose Lactate FiO2 Potassium 3.7 Carbon Dioxide 27 Anion Gap 12 BUN 29 H Creatinine 1.4 Est GFR ( Amer) > 60 Est GFR (Non-Af Amer) 51 Random Glucose 81 Lactic Acid 1.5 Calcium 9.2 Phosphorus 3.3 Magnesium 1.9 Total Bilirubin 2.4 H AST 45 ALT 34 Alkaline Phosphatase 164 H D Ammonia C-React Prot High Sens > 15.00 H Total Protein 7.7 Albumin 3.4 Globulin 4.3 Albumin/Globulin Ratio 0.8 L Procalcitonin Free T4 1.89 TSH 3rd Generation 0.32 L Venous Blood Potassium Blood Type Blood Type Confirm Antibody Screen BBK History Checked 10/01/17 10/01/17 10/01/17 07:00 10:00 10:43 WBC RBC Hgb Hct MCV MCH MCHC RDW Plt Count MPV Gran % Lymph % (Auto) Alcorn % (Auto) Eos % (Auto) Baso % (Auto) Gran # Lymph # Alcorn # Eos # Baso # pO2 VBG pH VBG pCO2 VBG HCO3 VBG Total CO2 VBG O2 Sat (Calc) VBG Base Excess VBG Potassium Sodium Chloride Glucose Lactate FiO2 Potassium Carbon Dioxide Anion Gap BUN Creatinine Est GFR ( Amer) Est GFR (Non-Af Amer) Random Glucose Lactic Acid Calcium Phosphorus Magnesium Total Bilirubin AST ALT Alkaline Phosphatase Ammonia 53 H C-React Prot High Sens Total Protein Albumin Globulin Albumin/Globulin Ratio Procalcitonin Free T4 TSH 3rd Generation Venous Blood Potassium Blood Type A NEGATIVE Blood Type Confirm A NEGATIVE Antibody Screen Negative BBK History Checked No verified bt Assessment & Plan - Assessment and Plan (Free Text) Assessment: Emilio Lane is a 63M w/ hx of CAD s/p Baremetal stent 1 month ago, afib, decompensated cyptogenic cirrhosis, HTN who present to the ER for weakness and dizziness. GI was consulted for hyperbilirublinema which is chronic. He was also found to have anemia with a baseline hemoglobin of 9. Pt was found to have a dropped in hgb today, likely dilutional since there is no report of GI Bleed. 1. Hyperbilirubinema, likely 2/2 TRUJILLO at baseline 2. 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 Decompensated Liver Cirrhosis 4. Hx of upper GI bleed Plan: -etiology of cirrhosis is unknown -will send for transferin and ferritin for supposed etiology of cirrhosis -pt T. Jason is a baseline -will fractionate T. Jason to differentiate direct vs indirect -there was a drop in hgb today to 7.7 from 9, will repeat hgb suspect dilutional , no report of GI loss (bleed) -will eventually need oupt EGD and colonscopy -needs to follow-up with tipple operator -contact information given to pt for Dr. Hodgson -would not transfuse PRBC at this time and wait for repeat Hgb -may eventually benefit from liver biopsy as oupt D/W Dr. Hodgson <[facility] - Last Filed: 10/01/17 15:26> Meds - Medications Medications: Current Medications Alprazolam (Xanax) 0.5 mg PO HS PRN; Protocol PRN Reason: Anxiety Stop: 10/08/17 22:01 Last Admin: 10/01/17 02:11 Dose: 0.5 mg Aspirin (Ecotrin) 81 mg PO DAILY [facility] Last Admin: 10/01/17 09:40 Dose: 81 mg Clopidogrel Bisulfate (Plavix) 75 mg PO DAILY [facility] Last Admin: 10/01/17 09:40 Dose: 75 mg Ondansetron HCl (Zofran Inj) 4 mg IVP Q4H PRN PRN Reason: Nausea/Vomiting Pantoprazole Sodium (Protonix Ec Tab) 40 mg PO 0600 [facility] Last Admin: 10/01/17 06:15 Dose: 40 mg Rifaximin (Xifaxan) 550 mg PO BID [facility] PRN Reason: Protocol Results - Vital Signs Recent Vital Signs: Last Vital Signs Temp 98.0 F 10/01/17 06:00 Pulse 64 10/01/17 14:00 Resp 18 10/01/17 06:00 BP 97/54 L 10/01/17 06:00 Pulse Ox 100 10/01/17 06:00 - Labs Result Diagrams: 10/01/17 14:30 10/01/17 07:00 Labs: Laboratory Results - last 24 hr 09/30/17 10/01/17 10/01/17 22:06 07:00 07:00 WBC 4.5 D RBC 2.15 L Hgb 7.7 L Hct 22.5 L MCV 104.7 MCH 35.8 H MCHC 34.2 RDW 15.9 H Plt Count 129 MPV 9.3 Gran % 50.8 Lymph % (Auto) 26.6 Alcorn % (Auto) 19.0 H Eos % (Auto) 2.9 Baso % (Auto) 0.7 Gran # 2.28 Lymph # 1.2 Alcorn # 0.9 H Eos # 0.1 Baso # 0.03 pO2 18 L VBG pH 7.47 H VBG pCO2 41.0 VBG HCO3 29.8 H VBG Total CO2 31.1 H VBG O2 Sat (Calc) 28.4 L VBG Base Excess 5.6 H VBG Potassium 4.0 Sodium 137.0 Chloride 104.0 Glucose 101 Lactate 2.0 FiO2 21.0 Potassium Carbon Dioxide Anion Gap BUN Creatinine Est GFR ( Amer) Est GFR (Non-Af Amer) Random Glucose Lactic Acid Calcium Phosphorus Magnesium Total Bilirubin AST ALT Alkaline Phosphatase Ammonia C-React Prot High Sens Total Protein Albumin Globulin Albumin/Globulin Ratio Procalcitonin 0.26 Free T4 TSH 3rd Generation Venous Blood Potassium 4.0 Blood Type Blood Type Confirm Antibody Screen BBK History Checked 10/01/17 10/01/17 10/01/17 07:00 07:00 07:00 WBC RBC Hgb Hct MCV MCH MCHC RDW Plt Count MPV Gran % Lymph % (Auto) Alcorn % (Auto) Eos % (Auto) Baso % (Auto) Gran # Lymph # Alcorn # Eos # Baso # pO2 VBG pH VBG pCO2 VBG HCO3 VBG Total CO2 VBG O2 Sat (Calc) VBG Base Excess VBG Potassium Sodium 138 Chloride 103 Glucose Lactate FiO2 Potassium 3.7 Carbon Dioxide 27 Anion Gap 12 BUN 29 H Creatinine 1.4 Est GFR ( Amer) > 60 Est GFR (Non-Af Amer) 51 Random Glucose 81 Lactic Acid 1.5 Calcium 9.2 Phosphorus 3.3 Magnesium 1.9 Total Bilirubin 2.4 H AST 45 ALT 34 Alkaline Phosphatase 164 H D Ammonia C-React Prot High Sens > 15.00 H Total Protein 7.7 Albumin 3.4 Globulin 4.3 Albumin/Globulin Ratio 0.8 L Procalcitonin Free T4 1.89 TSH 3rd Generation 0.32 L Venous Blood Potassium Blood Type Blood Type Confirm Antibody Screen BBK History Checked 10/01/17 10/01/17 10/01/17 07:00 10:00 10:43 WBC RBC Hgb Hct MCV MCH MCHC RDW Plt Count MPV Gran % Lymph % (Auto) Alcorn % (Auto) Eos % (Auto) Baso % (Auto) Gran # Lymph # Alcorn # Eos # Baso # pO2 VBG pH VBG pCO2 VBG HCO3 VBG Total CO2 VBG O2 Sat (Calc) VBG Base Excess VBG Potassium Sodium Chloride Glucose Lactate FiO2 Potassium Carbon Dioxide Anion Gap BUN Creatinine Est GFR ( Amer) Est GFR (Non-Af Amer) Random Glucose Lactic Acid Calcium Phosphorus Magnesium Total Bilirubin AST ALT Alkaline Phosphatase Ammonia 53 H C-React Prot High Sens Total Protein Albumin Globulin Albumin/Globulin Ratio Procalcitonin Free T4 TSH 3rd Generation Venous Blood Potassium Blood Type A NEGATIVE Blood Type Confirm A NEGATIVE Antibody Screen Negative BBK History Checked No verified bt 10/01/17 14:30 WBC 4.4 L RBC 2.21 L Hgb 7.9 L Hct 23.3 L MCV 105.4 H MCH 35.7 H MCHC 33.9 RDW 16.0 H Plt Count 123 MPV 9.1 Gran % 52.7 Lymph % (Auto) 29.0 Alcorn % (Auto) 15.8 H Eos % (Auto) 1.8 Baso % (Auto) 0.7 Gran # 2.31 Lymph # 1.3 Alcorn # 0.7 H Eos # 0.1 Baso # 0.03 pO2 VBG pH VBG pCO2 VBG HCO3 VBG Total CO2 VBG O2 Sat (Calc) VBG Base Excess VBG Potassium Sodium Chloride Glucose Lactate FiO2 Potassium Carbon Dioxide Anion Gap BUN Creatinine Est GFR ( Amer) Est GFR (Non-Af Amer) Random Glucose Lactic Acid Calcium Phosphorus Magnesium Total Bilirubin AST ALT Alkaline Phosphatase Ammonia C-React Prot High Sens Total Protein Albumin Globulin Albumin/Globulin Ratio Procalcitonin Free T4 TSH 3rd Generation Venous Blood Potassium Blood Type Blood Type Confirm Antibody Screen BBK History Checked Attending/Attestation - Attestation I have personally seen and examined this patient.: Yes I have fully participated in the care of the patient.: Yes I have reviewed all pertinent clinical information: Yes Notes (Text): 10/01/17 15:11 Patient seen and examined at bedside with GI fellow on rounds. This is a 63 yr old M w/ hx of CAD s/p baremetal stent 1 month ago, afib not on coumdain due to GI bleeding in the past, decompensated cirrhosis in setting of persistent ascites requiring paracentesis, HTN who present to the ER for weakness and dizziness. GI was consulted for hyperbilirublinema which is chronic. If has ascites on imaging will require diagnostic tap for SAAG calculation and albumin and total protein to differentiate between liver cirrhosis vs cardiac. No past EGD and colonoscopy but will require as outpatient for variceal screening and colon ca screening. Needs close outpatient follow up. Total bilirubin at baseline. No jaundice, GI bleeding, encephalopathy. Will follow with me as outpatient.
[2017-10-01 14:41] LABS: BASO # 0.03 K/mm3 (0.0-2.0); BASO % 0.7 % (0.0-3.0); EOS # 0.1 (0.0-0.7); EOS % 1.8 % (1.5-5.0); GRAN # 2.31 (1.4-6.5); GRAN % 52.7 % (50.0-68.0); LYMPH # 1.3 (1.2-3.4); MEAN CELL VOLUME 105.4 fl (80.0-105.0); MEAN CORPUSCULAR HEMOGLOBIN 35.7 pg (25.0-35.0); MEAN CORPUSCULAR HGB CONC 33.9 g/dl (31.0-37.0); MEAN PLATELET VOLUME 9.1 fl (7.0-11.0); MONO # 0.7 (0.1-0.6); MONO % 15.8 % (1.0-6.0); WHITE BLOOD COUNT 4.4 10^3/ul (4.5-11.0)
[2017-10-01 14:51] LABS: HEMATOCRIT 23.3 % (42.0-52.0)
[2017-10-02] MEDS: Pantoprazole 40 mg EC Tab PO SCH (06:31)
[2017-10-02 07:05] LABS: ALB/GLOB RATIO 0.7 (1.1-1.8); ALKALINE PHOSPHATASE 176 U/L (38-126); ALT/SGPT 40 U/L (7-56); AST/SGOT 44 U/L (17-59); BILIRUBIN,TOTAL 1.8 mg/dL (0.2-1.3); BLOOD UREA NITROGEN 29 mg/dL (7-21); CALCIUM 9.1 mg/dL (8.4-10.5); CARBON DIOXIDE 27 mmol/L (21-33); CHLORIDE 104 mmol/L (95-110); GFR AFRICAN-AMERICAN > 60; GLUCOSE,RANDOM 87 mg/dL (70-110); POTASSIUM 3.8 mmol/L (3.6-5.0); SODIUM 138 mmol/L (132-148); TOTAL PROTEIN 7.7 g/dL (5.8-8.3)
[2017-10-02 07:11] LABS: BASO # 0.02 K/mm3 (0.0-2.0); BASO % 0.4 % (0.0-3.0); EOS # 0.1 (0.0-0.7); EOS % 2.3 % (1.5-5.0); GRAN # 2.94 (1.4-6.5); GRAN % 55.2 % (50.0-68.0); LYMPH # 1.4 (1.2-3.4); LYMPH % 25.6 % (22.0-35.0); MEAN CELL VOLUME 105.3 fl (80.0-105.0); MEAN CORPUSCULAR HEMOGLOBIN 35.1 pg (25.0-35.0); MEAN CORPUSCULAR HGB CONC 33.3 g/dl (31.0-37.0); MEAN PLATELET VOLUME 9.5 fl (7.0-11.0); MONO # 0.9 (0.1-0.6); MONO % 16.5 % (1.0-6.0); RED CELL DISTRIBUTION WIDTH 15.8 % (11.5-14.5); WHITE BLOOD COUNT 5.3 10^3/ul (4.5-11.0)
--- NOTE | 2017-10-02 14:52 | CP.PCM.PN ---
<Forrest Malloy - Last Filed: 10/02/17 16:00> Subjective - Date & Time of Evaluation Date of Evaluation: 10/02/17 Time of Evaluation: 08:20 - Subjective Subjective: Patient was seen and examined at bedside with no acute complaints. Patient states he slept throughout the night without any issues. Stated " I can start making up complaints if you want but I don't have any." Denies abdominal pain, shortness of breath, chest pain, nausea, vomiting, diarrhea, dizziness, weakness , coughing. Objective - Vital Signs/Intake and Output Vital Signs (last 24 hours): Temp Pulse Resp BP Pulse Ox 98.1 F 66 20 108/61 98 10/02/17 06:00 10/02/17 10:00 10/02/17 06:00 10/02/17 06:00 10/02/17 06:00 Intake and Output: 10/02/17 10/02/17 06:59 18:59 Intake Total 420 Output Total 0 Balance 420 - Medications Medications: Current Medications Alprazolam (Xanax) 0.5 mg PO HS PRN; Protocol PRN Reason: Anxiety Stop: 10/08/17 22:01 Last Admin: 10/01/17 22:12 Dose: 0.5 mg Aspirin (Ecotrin) 81 mg PO DAILY [facility] Last Admin: 10/02/17 09:53 Dose: 81 mg Clopidogrel Bisulfate (Plavix) 75 mg PO DAILY [facility] Last Admin: 10/02/17 09:53 Dose: 75 mg Ondansetron HCl (Zofran Inj) 4 mg IVP Q4H PRN PRN Reason: Nausea/Vomiting Pantoprazole Sodium (Protonix Ec Tab) 40 mg PO 0600 [facility] Last Admin: 10/02/17 06:31 Dose: 40 mg Rifaximin (Xifaxan) 550 mg PO BID [facility] PRN Reason: Protocol Last Admin: 10/02/17 09:53 Dose: 550 mg - Labs Labs: 10/02/17 06:00 10/02/17 06:00 PT 15.4 SECONDS (9.4-12.5) H 09/30/17 18:35 INR 1.40 (0.93-1.08) H 09/30/17 18:35 APTT 36.4 Seconds (25.1-36.5) 09/30/17 18:35 - Constitutional Appears: Non-toxic, No Acute Distress - Head Exam Head Exam: ATRAUMATIC, NORMAL INSPECTION, NORMOCEPHALIC - Eye Exam Eye Exam: EOMI, Normal appearance - ENT Exam ENT Exam: Mucous Membranes Moist, Normal Exam - Respiratory Exam Respiratory Exam: Clear to Ausculation Bilateral, NORMAL BREATHING PATTERN. absent: Rales, Rhonchi, Wheezes - Cardiovascular Exam Cardiovascular Exam: REGULAR RHYTHM, +S1, +S2 - GI/Abdominal Exam GI & Abdominal Exam: Distended, Firm, Organomegaly (hepatomegaly). absent: Soft , Tenderness - Extremities Exam Extremities Exam: Normal Inspection. absent: Calf Tenderness, Tenderness - Back Exam Back Exam: NORMAL INSPECTION. absent: rash noted - Neurological Exam Neurological Exam: Alert, Awake, Oriented x3 - Psychiatric Exam Psychiatric exam: Normal Affect, Normal Mood - Skin Skin Exam: Intact, Normal Color, Warm Assessment and Plan - Assessment and Plan (Free Text) Assessment: Patient is a 62 year old male with past medical history of Non-alcoholic liver cirrhosis, HTN, GERD, CHF (EF 45-50%), atrial fibrillation, ascites presenting to [facility] with dizziness and fatigue that started yesterday found to be in a state of hepatic encephalopathy. Plan: 1. Dizziness likely 2/2 possible hepatic encephalopathy, dehydration, symptomatic bradycardia -Ammonia continues to downtrend currently 41 from 53 yesterday -Continue rifaximin -Continue to hold lasix and nadolol -Fall precautions -PT evaluated patient; recommends more training. Will discuss with PT tomorrow regarding patient discharge 2. Elevated Lactate -Blood and urine cultures ordered; no growth after 24 hours -Procalcitonin within normal limits -CRP elevated >15 3. Anemia (likely secondary to chronic disease) - H&H continues to improve - Continue to monitor H&H - Type and Screened - Monitor patient's status and vitals 4. Bare metal stent placement s/p cardiac cath - Continue ASA and plavix 5. History of TRUJILLO with ascites -Continue with Aldactone -AST/ALT 44/40 currently -T bili continues to downtrend -GI on board; recommends outpatient hepatology follow up appt 6. CHF (diastolic dysfunction) -Last echo 08/2017 showed normal LVEF and LV size, dilated RA/RV/LA -CXR reveals possible right pleural effusion; will continue to monitor -Continue with Aldactone -I/Os are balanced -Keep HOB > 30 degrees 7. History of Hypertension -BP stable -Continue to hold nadolol 8. Anxiety/Depression -Continue Xanax GI/DVT PPx -Protonix/SCDs Patient was seen, examined and discussed with attending, Dr. Das <Fay Das - Last Filed: 10/02/17 16:29> Objective - Vital Signs/Intake and Output Vital Signs (last 24 hours): Temp Pulse Resp BP Pulse Ox 98.1 F 63 20 108/61 98 10/02/17 06:00 10/02/17 14:00 10/02/17 06:00 10/02/17 06:00 10/02/17 06:00 Intake and Output: 10/02/17 10/02/17 06:59 18:59 Intake Total 420 Output Total 0 Balance 420 - Medications Medications: Current Medications Alprazolam (Xanax) 0.5 mg PO HS PRN; Protocol PRN Reason: Anxiety Stop: 10/08/17 22:01 Last Admin: 10/01/17 22:12 Dose: 0.5 mg Aspirin (Ecotrin) 81 mg PO [facility]ILY [facility] Last Admin: 10/02/17 09:53 Dose: 81 mg Clopidogrel Bisulfate (Plavix) 75 mg PO DAILY [facility] Last Admin: 10/02/17 09:53 Dose: 75 mg Ondansetron HCl (Zofran Inj) 4 mg IVP Q4H PRN PRN Reason: Nausea/Vomiting Pantoprazole Sodium (Protonix Ec Tab) 40 mg PO 0600 [facility] Last Admin: 10/02/17 06:31 Dose: 40 mg Rifaximin (Xifaxan) 550 mg PO BID [facility] PRN Reason: Protocol Last Admin: 10/02/17 09:53 Dose: 550 mg - Labs Labs: 10/02/17 06:00 10/02/17 06:00 PT 15.4 SECONDS (9.4-12.5) H 09/30/17 18:35 INR 1.40 (0.93-1.08) H 09/30/17 18:35 APTT 36.4 Seconds (25.1-36.5) 09/30/17 18:35 Attending/Attestation - Attestation I have personally seen and examined this patient.: Yes I have fully participated in the care of the patient.: Yes I have reviewed all pertinent clinical information, including history, physical exam and plan: Yes Notes (Text): I have seen and examined the patient at bedside. Agree with the above note with the following additions/ exceptions: Briefly this is 62 year old male with history of TRUJILLO, former smoker, former social alcohol drinker, HTN, CHF (EF~45- 50%), afib rate controlled not on anticoagulation due to GI bleed, cryptogenic cirrhosis, CAD s/p bare metal stent on aspirin and plavix (only 4 weeks) who came for evaluation of dizziness and generalized weakness most likely due to hepatic encephalopathy. He has been getting rifaxamin. Ammonia is trending down. Patient appears alert and awake. States that his appetite is back and he ate good amount of breakfast. Continue to hold lasix, nadolol and aldactone. BP is still on the lower side. Upon discharge patient will follow up with Dr Lew. Dr Fay Das
[2017-10-03] MEDS: Pantoprazole 40 mg EC Tab PO SCH (05:52)
[2017-10-03 06:33] LABS: BASO # 0.06 K/mm3 (0.0-2.0); EOS # 0.2 (0.0-0.7); EOS % 3.6 % (1.5-5.0); GRAN # 2.94 (1.4-6.5); GRAN % 50.8 % (50.0-68.0); LYMPH # 1.5 (1.2-3.4); LYMPH % 25.5 % (22.0-35.0); MEAN CELL VOLUME 105.3 fl (80.0-105.0); MEAN CORPUSCULAR HEMOGLOBIN 36.1 pg (25.0-35.0); MEAN CORPUSCULAR HGB CONC 34.3 g/dl (31.0-37.0); MEAN PLATELET VOLUME 9.1 fl (7.0-11.0); MONO # 1.1 (0.1-0.6); MONO % 19.1 % (1.0-6.0); RED CELL DISTRIBUTION WIDTH 15.6 % (11.5-14.5); WHITE BLOOD COUNT 5.8 10^3/ul (4.5-11.0)
[2017-10-03 06:56] LABS: HEMATOCRIT 23.9 % (42.0-52.0)
[2017-10-03 07:03] LABS: ALB/GLOB RATIO 0.7 (1.1-1.8); ALKALINE PHOSPHATASE 179 U/L (38-126); ALT/SGPT 23 U/L (7-56); AST/SGOT 46 U/L (17-59); BILIRUBIN,TOTAL 1.6 mg/dL (0.2-1.3); BLOOD UREA NITROGEN 28 mg/dL (7-21); CALCIUM 8.9 mg/dL (8.4-10.5); CARBON DIOXIDE 25 mmol/L (21-33); CHLORIDE 105 mmol/L (98-107); GFR AFRICAN-AMERICAN > 60; GLUCOSE,RANDOM 101 mg/dL (70-110); MAGNESIUM 2.1 mg/dL (1.7-2.2); PHOSPHOROUS 2.9 mg/dL (2.5-4.5); POTASSIUM 3.8 mmol/L (3.6-5.0); SODIUM 136 mmol/L (132-148); TOTAL PROTEIN 7.4 g/dL (5.8-8.3)
--- NOTE | 2017-10-03 14:44 | CP.PCM.PN ---
<Nemesio Michael - Last Filed: 10/03/17 14:40> Subjective - Date & Time of Evaluation Date of Evaluation: 10/03/17 Time of Evaluation: 07:15 - Subjective Subjective: Dr. Bobby Lane Pt was seen and examined at bedside. No acute complaints at this time. Pt is tolerating po intake, is moving bowels and bladder regularly. Pt states he feels slightly uncomfortable and is interested in a paracentesis, as it makes him feel much more comfortable. Pt is able to ambulate without issue. Pt denied fever, chills, sob, chest pains, abdominal pains, n/v/d/c or urinary symptoms. Objective - Vital Signs/Intake and Output Vital Signs (last 24 hours): Temp Pulse Resp BP Pulse Ox 98.9 F 70 20 111/57 L 98 10/03/17 08:12 10/03/17 08:12 10/03/17 08:12 10/03/17 08:12 10/03/17 08:12 Intake and Output: 10/03/17 10/03/17 06:59 18:59 Intake Total 660 Balance 660 - Medications Medications: Current Medications Alprazolam (Xanax) 0.5 mg PO HS PRN; Protocol PRN Reason: Anxiety Stop: 10/08/17 22:01 Last Admin: 10/02/17 23:52 Dose: 0.5 mg Aspirin (Ecotrin) 81 mg PO DAILY [facility] Last Admin: 10/03/17 10:09 Dose: 81 mg Furosemide (Lasix) 40 mg PO DAILY [facility] Ondansetron HCl (Zofran Inj) 4 mg IVP Q4H PRN PRN Reason: Nausea/Vomiting Pantoprazole Sodium (Protonix Ec Tab) 40 mg PO 0600 [facility] Last Admin: 10/03/17 05:52 Dose: 40 mg Rifaximin (Xifaxan) 550 mg PO BID [facility] PRN Reason: Protocol Last Admin: 10/03/17 10:10 Dose: 550 mg - Labs Labs: 10/03/17 05:30 10/03/17 05:30 PT 15.4 SECONDS (9.4-12.5) H 09/30/17 18:35 INR 1.40 (0.93-1.08) H 09/30/17 18:35 APTT 36.4 Seconds (25.1-36.5) 09/30/17 18:35 - Constitutional Appears: No Acute Distress - Head Exam Head Exam: ATRAUMATIC, NORMAL INSPECTION, NORMOCEPHALIC - Eye Exam Eye Exam: EOMI, Normal appearance, PERRL Pupil Exam: NORMAL ACCOMODATION, PERRL - ENT Exam ENT Exam: Mucous Membranes Moist, Normal Exam - Neck Exam Neck Exam: Full ROM, Normal Inspection. absent: Lymphadenopathy - Respiratory Exam Respiratory Exam: Clear to Ausculation Bilateral, NORMAL BREATHING PATTERN - Cardiovascular Exam Cardiovascular Exam: REGULAR RHYTHM, +S1, +S2. absent: Murmur - GI/Abdominal Exam GI & Abdominal Exam: Soft, Normal Bowel Sounds. absent: Distended, Tenderness - Rectal Exam Rectal Exam: NORMAL INSPECTION - Extremities Exam Extremities Exam: Full ROM, Normal Capillary Refill, Normal Inspection. absent : Joint Swelling, Pedal Edema - Back Exam Back Exam: NORMAL INSPECTION - Neurological Exam Neurological Exam: Alert, Awake, CN II-XII Intact, Normal Gait, Oriented x3 - Psychiatric Exam Psychiatric exam: Normal Affect, Normal Mood - Skin Skin Exam: Dry, Intact, Normal Color, Warm Assessment and Plan - Assessment and Plan (Free Text) Assessment: 62 M with PMHx of TRUJILLO, HTN, GERD, CHF (EF 45-50%), atrial fibrillation not on coumadin 2/2 hx of GI bleed, ascites admitted with hepatic encephalopathy. 1. Dizziness likely 2/2 possible hepatic encephalopathy, dehydration, symptomatic bradycardia -Ammonia continues to downtrend -Continue rifaximin -Continue to hold lasix and nadolol due to BP -Fall precautions -PT rec home with services 2. Elevated Lactate -Blood and urine cultures ordered; no growth after 24 hours -Procalcitonin within normal limits -CRP elevated >15 3. Anemia (likely secondary to chronic disease) - H&H continues to improve - Continue to monitor H&H - Type and Screened - Monitor patient's status and vitals 4. Bare metal stent placement s/p cardiac cath - Continue ASA and plavix 5. History of TRUJILLO with ascites -Continue with Aldactone -AST/ALT stable -T bili stable -GI on board; recommends outpatient hepatology follow up appt - will get Abd US to decide on paracentesis 6. CHF (diastolic dysfunction) -Last echo 08/2017 showed normal LVEF and LV size, dilated RA/RV/LA -CXR reveals possible right pleural effusion; will continue to monitor -Continue with Aldactone -I/Os are balanced -Keep HOB > 30 degrees 7. History of Hypertension -BP stable -Continue to hold nadolol 8. Anxiety/Depression -Continue Xanax GI/DVT PPx -Protonix/SCDs Patient was seen, examined and discussed with attending <Felicita Rosales - Last Filed: 10/03/17 17:53> Objective - Vital Signs/Intake and Output Vital Signs (last 24 hours): Temp Pulse Resp BP Pulse Ox 98.9 F 70 20 106/61 98 10/03/17 16:00 10/03/17 16:00 10/03/17 16:00 10/03/17 16:00 10/03/17 16:00 Intake and Output: 10/03/17 10/03/17 06:59 18:59 Intake Total 660 Balance 660 - Medications Medications: Current Medications Alprazolam (Xanax) 0.5 mg PO HS PRN; Protocol PRN Reason: Anxiety Stop: 10/08/17 22:01 Last Admin: 10/02/17 23:52 Dose: 0.5 mg Aspirin (Ecotrin) 81 mg PO DAILY [facility] Last Admin: 10/03/17 10:09 Dose: 81 mg Furosemide (Lasix) 40 mg PO DAILY [facility] Last Admin: 10/03/17 15:03 Dose: 40 mg Ondansetron HCl (Zofran Inj) 4 mg IVP Q4H PRN PRN Reason: Nausea/Vomiting Pantoprazole Sodium (Protonix Ec Tab) 40 mg PO 0600 [facility] Last Admin: 10/03/17 05:52 Dose: 40 mg Rifaximin (Xifaxan) 550 mg PO BID [facility] PRN Reason: Protocol Last Admin: 10/03/17 10:10 Dose: 550 mg - Labs Labs: 10/03/17 05:30 10/03/17 05:30 PT 15.4 SECONDS (9.4-12.5) H 09/30/17 18:35 INR 1.40 (0.93-1.08) H 09/30/17 18:35 APTT 36.4 Seconds (25.1-36.5) 09/30/17 18:35 Attending/Attestation - Attestation I have personally seen and examined this patient.: Yes I have fully participated in the care of the patient.: Yes I have reviewed all pertinent clinical information, including history, physical exam and plan: Yes Notes (Text): 10/03/17 17:47 attending note; Patient seen and examined with resident. Patient is a 62 year old male with history of Cryptogenic cirrhosis, former smoker, former alcohol abuser, HTN, CHF (EF~45-50%), afib recently cardioverted in [facility], his tree of GI bleed, CAD s/p bare metal stent on aspirin and plavix who came for evaluation of dizziness and generalized weakness most likely due to hepatic encephalopathy. He has been getting rifaxamin. Ammonia is trending down. Patient appears alert and awake. GI evaluation appreciated. Abdominal ultrasound showed significant ascites. Case discussed with interventional radiology Dr. Franko Crespo in detail. Plan for paracentesis. Upon discharge patient will follow up with Dr Lew. The patient will follow up with bed laborer Dr. Hodgson in a week.
--- NOTE | 2017-10-03 15:31 | US ---
HISTORY: ascites eval COMPARISON: None. TECHNIQUE: Sonographic evaluation of the abdomen. FINDINGS: LIVER: Measures 15.3 cm. There is increased heterogeneous echotexture in the liver with nodular contours. No mass. No intrahepatic bile duct dilatation. GALLBLADDER: No gallstones or pericholecystic fluid. There is diffuse gallbladder wall thickening secondary to hepatic disease. The sonographic Ochoa's sign is negative. COMMON BILE DUCT: Measures 3.1 mm. No stones. No dilatation. PANCREAS: Unremarkable as visualized. No mass. No ductal dilatation. RIGHT KIDNEY: Measures 10.3cm. Normal echogenicity. No calculus, mass, or hydronephrosis. LEFT KIDNEY: Measures 10.6cm. Normal echogenicity. No calculus, mass, or hydronephrosis. SPLEEN: Mild splenomegaly. No mass. AORTA: No aneurysmal dilatation. IVC: Unremarkable. OTHER FINDINGS: There is large abdominal and pelvic ascites and right pleural effusion. IMPRESSION: Cirrhosis of liver and mild splenomegaly. Large abdominal and pelvic ascites, and right pleural effusion.
[2017-10-04] MEDS: Pantoprazole 40 mg EC Tab PO SCH (05:07)
[2017-10-04 14:03] LABS: BODY FLUID TYPE PERITONEAL
[2017-10-04 14:40] LABS: BF GROSS APPEARANCE CLEAR (CLEAR)
[2017-10-04 14:41] LABS: BODY FLUID TOTAL COUNT 100 (0-0)
[2017-10-04] MEDS ORDERED: Sodium Chloride 0.9% 500 ML IV STA (16:17)
--- NOTE | 2017-10-04 17:32 | US ---
PROCEDURE: Ultrasound guided paracentesis. HISTORY: Cryptogenic cirrhosis. Recurrent ascites with abdominal pain and distension PHYSICIAN(S): Franko Crespo MD. TECHNIQUE: The relative risks and indications for the procedure were explained to the patient and informed written consent obtained. Sonography of the abdomen was performed in a supine position. This revealed a moderate to large amount of non-loculated ascites, greatest in the right lower quadrant. A puncture site was selected and the area was prepped and draped in the usual sterile fashion. 1% Xylocaine was used to anesthetize the skin and soft tissues. A 7 [place] paracentesis catheter was trocared into the right lower quadrantand 7000 cc of clear, straw-colored fluid aspirated. The appropriate labs were sent. IMPRESSION: Ultrasound-guided paracentesis in the right lower quadrant. 7000 cc of fluid were aspirated. Labs were sent
[2017-10-05] MEDS: Pantoprazole 40 mg EC Tab PO SCH (05:12)
[2017-10-05 08:08] VITALS: BP 102/64; PULSE 72; RESP 20; TEMP 98.2; O2SAT 99
[2017-10-05] MEDS ORDERED: Influenza Vaccine 60 mcg/0.5 mL SYR (4YR UP) IM ONE (11:12)
[2017-10-05] MEDS ORDERED: Pneumococcal 23-Valent Vaccine IM ONE (11:13)
[2017-10-06 05:46] LABS: GLUCOSE PERITONEAL FLUID 107 mg/dL; LDH PERITONEAL FLUID 46 U/L (<63)
--- NOTE | 2017-10-06 20:35 | CP.PCM.DIS ---
Provider - Provider Date of Admission: 09/30/17 20:12 Attending physician: Felicita Rosales MD Time Spent in preparation of Discharge (in minutes): 45 Hospital Course - Lab Results Lab Results: Micro Results 10/04/17 14:02 Peritoneal Fluid Gram Stain - Final 10/04/17 14:02 Peritoneal Fluid Body Fluid Culture - Preliminary NO GROWTH AFTER 2 DAYS Most Recent Lab Values WBC 5.8 10^3/ul (4.5-11.0) 10/03/17 05:30 RBC 2.27 10^6/uL (3.5-6.1) L 10/03/17 05:30 Hgb 8.2 g/dL (14.0-18.0) L 10/03/17 05:30 Hct 23.9 % (42.0-52.0) L 10/03/17 05:30 MCV 105.3 fl (80.0-105.0) H 10/03/17 05:30 MCH 36.1 pg (25.0-35.0) H 10/03/17 05:30 MCHC 34.3 g/dl (31.0-37.0) 10/03/17 05:30 RDW 15.6 % (11.5-14.5) H 10/03/17 05:30 Plt Count 134 10^3/uL (120.0-450.0) 10/03/17 05:30 MPV 9.1 fl (7.0-11.0) 10/03/17 05:30 Gran % 50.8 % (50.0-68.0) 10/03/17 05:30 Lymph % (Auto) 25.5 % (22.0-35.0) 10/03/17 05:30 [place] % (Auto) 19.1 % (1.0-6.0) H 10/03/17 05:30 Eos % (Auto) 3.6 % (1.5-5.0) 10/03/17 05:30 Baso % (Auto) 1.0 % (0.0-3.0) 10/03/17 05:30 Gran # 2.94 (1.4-6.5) 10/03/17 05:30 Lymph # 1.5 (1.2-3.4) 10/03/17 05:30 [place] # 1.1 (0.1-0.6) H 10/03/17 05:30 Eos # 0.2 (0.0-0.7) 10/03/17 05:30 Baso # 0.06 K/mm3 (0.0-2.0) 10/03/17 05:30 PT 15.4 SECONDS (9.4-12.5) H 09/30/17 18:35 INR 1.40 (0.93-1.08) H 09/30/17 18:35 APTT 36.4 Seconds (25.1-36.5) 09/30/17 18:35 pO2 18 mm/Hg (30-55) L 09/30/17 22:06 VBG pH 7.47 (7.32-7.43) H 09/30/17 22:06 VBG pCO2 41.0 (40-60) 09/30/17 22:06 VBG HCO3 29.8 mmol/l (21-28) H 09/30/17 22:06 VBG Total CO2 31.1 mmol.L (22-28) H 09/30/17 22:06 VBG O2 Sat (Calc) 28.4 % (40-65) L 09/30/17 22:06 VBG Base Excess 5.6 mmol/L (0.0-2.0) H 09/30/17 22:06 VBG Potassium 4.0 mmol/L (3.6-5.2) 09/30/17 22:06 Sodium 137.0 mmol/L (132-148) 09/30/17 22:06 Chloride 104.0 mmol/L (98-107) 09/30/17 22:06 Glucose 101 mg/dl (75-110) 09/30/17 22:06 Lactate 2.0 mmol/L (0.7-2.1) 09/30/17 22:06 FiO2 21.0 % 09/30/17 22:06 Sodium 136 mmol/L (132-148) 10/03/17 05:30 Potassium 3.8 mmol/L (3.6-5.0) 10/03/17 05:30 Chloride 105 mmol/L (98-107) 10/03/17 05:30 Carbon Dioxide 25 mmol/L (21-33) 10/03/17 05:30 Anion Gap 10 (10-20) 10/03/17 05:30 BUN 28 mg/dL (7-21) H 10/03/17 05:30 Creatinine 1.3 mg/dL (0.8-1.5) 10/03/17 05:30 Est GFR ( Amer) > 60 10/03/17 05:30 Est GFR (Non-Af Amer) 56 10/03/17 05:30 Random Glucose 101 mg/dL (70-110) 10/03/17 05:30 Lactic Acid 1.5 mmol/L (0.7-2.1) 10/01/17 07:00 Calcium 8.9 mg/dL (8.4-10.5) 10/03/17 05:30 Phosphorus 2.9 mg/dL (2.5-4.5) 10/03/17 05:30 Magnesium 2.1 mg/dL (1.7-2.2) 10/03/17 05:30 Transferrin 141.63 mg/dL (206-381) L 10/02/17 06:00 Ferritin 96.9 ng/mL 10/02/17 06:00 Total Bilirubin 1.6 mg/dL (0.2-1.3) H 10/03/17 05:30 AST 46 U/L (17-59) 10/03/17 05:30 ALT 23 U/L (7-56) 10/03/17 05:30 Alkaline Phosphatase 179 U/L (38-126) H 10/03/17 05:30 Ammonia 45 umol/L (9-33) H 10/05/17 08:14 Lactate Dehydrogenase 583 U/L (333-699) 09/30/17 18:35 Total Creatine Kinase 100 U/L (35-230) 09/30/17 18:35 Troponin I 0.02 ng/mL D 09/30/17 18:35 C-React Prot High Sens > 15.00 mg/L (1.00-3.00) H 10/01/17 07:00 Total Protein 7.4 g/dL (5.8-8.3) 10/03/17 05:30 Albumin 3.0 g/dL (3.0-4.8) 10/03/17 05:30 Globulin 4.5 gm/dL 10/03/17 05:30 Albumin/Globulin Ratio 0.7 (1.1-1.8) L 10/03/17 05:30 Amylase 43 U/L (35-125) 09/30/17 18:35 Lipase 75 U/L (23-300) 09/30/17 18:35 Procalcitonin 0.26 NG/ML (0.19-0.49) 10/01/17 07:00 Free T4 1.89 ng/dL (0.78-2.19) 10/01/17 07:00 TSH 3rd Generation 0.32 mIU/mL (0.46-4.68) L 10/01/17 07:00 Venous Blood Potassium 4.0 mmol/L (3.6-5.2) 09/30/17 22:06 Urine Color Light yellow (YELLOW) 09/30/17 19:11 Urine Appearance Clear (CLEAR) 09/30/17 19:11 Urine pH 6.0 (4.7-8.0) 09/30/17 19:11 Ur Specific [place] 1.010 (1.005-1.035) 09/30/17 19:11 Urine Protein Negative mg/dL (<30 mg/dL) 09/30/17 19:11 Urine Glucose (UA) Negative mg/dL (NEGATIVE) 09/30/17 19:11 Urine Ketones Negative mg/dL (NEGATIVE) 09/30/17 19:11 Urine Blood Negative (NEGATIVE) 09/30/17 19:11 Urine Nitrate Negative (NEGATIVE) 09/30/17 19:11 Urine Bilirubin Negative (NEGATIVE) 09/30/17 19:11 Urine Urobilinogen 0.2 E.U./dL (<1 E.U./dL) 09/30/17 19:11 Ur Leukocyte Esterase Negative Tomy/uL (NEGATIVE) 09/30/17 19:11 Fluid Source Peritoneal 10/04/17 14:02 Fluid Appearance Clear (CLEAR) 10/04/17 14:02 Fluid WBC 57.0 /uL (0.0-300.0) 10/04/17 14:02 Fluid RBC 238.0 /uL (0.0-0.0) H 10/04/17 14:02 Fluid Tot Cell Count 100 (0-0) H 10/04/17 14:02 Fluid Neutrophils 15.8 % (0-0) H 10/04/17 14:02 Fluid Lymphocytes 84.2 % (0-0) H 10/04/17 14:02 Fld Monocyte/Macrophag TEST NOT PERFORMED 10/04/17 14:02 Fluid Comment TEST NOT PERFORMED 10/04/17 14:02 Peritoneal LDH 46 U/L (<63) 10/04/17 14:02 Peritoneal Glucose 107 mg/dL 10/04/17 14:02 Peritoneal CEA <2 ng/mL (<2.0) 10/04/17 14:02 Thoracentesis Fluid pH 7.0 10/04/17 14:02 Salicylates < 1 mg/dL (2.0-20.0) L 09/30/17 18:35 Blood Type A NEGATIVE 10/01/17 10:00 Blood Type Confirm A NEGATIVE 10/01/17 10:43 Antibody Screen Negative 10/01/17 10:00 BBK History Checked No verified bt 10/01/17 10:00 - Hospital Course Hospital Course: Mr. Lane is a 62 year old male with past medical history of liver cirrhosis 2 /2 TRUJILLO, afib s/p cardioversion, HTN, GERD, CHF presents to the ED for dizziness and fatigue x1 day. Feels like he is spinning, and it is intermittent in nature. Denies any aggravating or alleviating factors. Also states that he has been feeling nauseous for the past week and has been having decreased PO intake. Ammonia 46. Patient was transferred to telemetry for monitoring. GI And ID were consulted. Abdominal US showed cirrhosis of liver and mild splenomegaly; large abdominal and pelvic ascited and right pleural effusion. Rifaximin was continued, and Ammonia continued to downtrend. On 10/04/17, pt underwent US-guided paracentesis in RLQ, and 7L of fluid were aspirated. Fluid analysis showed Fluid pH 7, WBC 57, neutrophils 15.8, LDH 46, glucose 107, and was clear. Pt felt much better after the tap. Pt was noted to be hypotensive s/p tap and was given 500cc NS and albumin infusion. Pt's BP improved and pt was not lightheaded or dizzy and was ambulating without assistance and was stabilized for discharge. - Date & Time of H&P Date of H&P: 09/30/17 Time of H&P: 20:28 Discharge Exam - Head Exam Head Exam: ATRAUMATIC, NORMAL INSPECTION, NORMOCEPHALIC - Eye Exam Eye Exam: EOMI, Normal appearance, PERRL, Scleral icterus Pupil Exam: NORMAL ACCOMODATION - ENT Exam ENT Exam: Mucous Membranes Moist - Neck Exam Neck exam: Normal Inspection - Respiratory Exam Respiratory Exam: Clear to PA & Lateral, NORMAL BREATHING PATTERN. absent: Wheezes - Cardiovascular Exam Cardiovascular Exam: RRR, +S1, +S2 - GI/Abdominal Exam GI & Abdominal Exam: Distended, Normal Bowel Sounds, Soft. absent: Guarding, Tenderness Additional comments: RLQ incision site was dressed (clean/dry/intact) - Extremities Exam Extremities exam: full ROM - Back Exam Back exam: NORMAL INSPECTION - Neurological Exam Neurological exam: Alert, Oriented x3 - Psychiatric Exam Psychiatric exam: Normal Affect, Normal Mood - Skin Skin Exam: Warm Additional comments: mild jaundice (Diffuse) Discharge Plan - Follow Up Plan Condition: SERIOUS Disposition: HOME/ ROUTINE Instructions: Pleural Effusion (DC), Hepatic Encephalopathy (DC) Additional Instructions: - please take your medications as prescribed. Please hold the lasix and spironolactone for 2 days then restart them - please take the motrin as prescribed only if needed - please follow up with GI Dr. Hodgson within 1 week. Follow up paracentesis results - please follow up with PMD Dr. Lew within 3 days. - If you experiences shortness of breath, worsening abdominal pain or fevers/ chills, please return to ER for evaluation Referrals: Delonte Garcia MD [Staff Provider] - Surinder Bishop MD [Staff Provider] -
[2017-10-06 23:53] LABS: TOTAL PROTEIN PERITONEAL FLUID <3.0 g/dL; TRIGLYCERIDES PERITONEAL FLUID 18 mg/dL (<65)
== END 2017-10-05 13:16 | disposition home or self-care (01) | DRG 557 ==
LOC: ED 17:53 → ERH 20:12 → 3RNO 21:28
PROVIDERS: ADMIT Internal Medicine; ATTEND Internal Medicine
PROC: BW40ZZZ Ultrasonography of Abdomen (ICD-10-PCS; 2017-10-04)
PROC: 0W9G3ZZ Drainage of Peritoneal Cavity, Percutaneous Approach (ICD-10-PCS; principal; 2017-10-04 10:00)
PROC: 3E0234Z Introduction of Serum, Toxoid and Vaccine into Muscle, Percutaneous Approach (ICD-10-PCS; 2017-10-05)
DX: K72.90 Hepatic failure, unspecified without coma (principal); I50.30 Unspecified diastolic (congestive) heart failure; I11.0 Hypertensive heart disease with heart failure; I48.91 Unspecified atrial fibrillation; K92.2 Gastrointestinal hemorrhage, unspecified; R00.1 Bradycardia, unspecified; E86.0 Dehydration; K70.31 Alcoholic cirrhosis of liver with ascites; K74.69 Other cirrhosis of liver; D63.8 Anemia in other chronic diseases classified elsewhere; F41.9 Anxiety disorder, unspecified; I25.10 Atherosclerotic heart disease of native coronary artery without angina pectoris; K21.9 Gastro-esophageal reflux disease without esophagitis; Z79.82 Long term (current) use of aspirin; Z82.49 Family history of ischemic heart disease and other diseases of the circulatory system; Z83.3 Family history of diabetes mellitus; Z87.01 Personal history of pneumonia (recurrent); Z87.891 Personal history of nicotine dependence; Z95.5 Presence of coronary angioplasty implant and graft; R26.81 Unsteadiness on feet; Z87.892 Personal history of anaphylaxis; Z91.018 Allergy to other foods; Z23 Encounter for immunization; F32.89 Other specified depressive episodes

== ENCOUNTER 2017-10-06 04:27 | Inpatient (IN) | payer MEDICAID ==
[2017-10-06 04:27] VITALS: BMI 20.9
--- NOTE | 2017-10-06 04:29 | ED PDOC ---
Arrival/HPI - General Time Seen by Provider: 10/06/17 04:28 Historian: Patient, Partner, EMS - History of Present Illness Narrative History of Present Illness (Text): 10/06/17 04:[address] is a 62 year old male, whose past medical history includes portal hypertension, esophageal varices, GI bleed, non-alcoholic liver cirrhosis, hypertension, GERD, ascites, CHF, atrial fibrillation, and CAD with stents, who presents to the ED brought in by EMS accompanied by partner complaining of sudden onset of hematemesis prior to arrival. As per EMS, patient woke up prior to arrival and began vomiting large amounts of bright, red blood. Patient was recently discharged from the hospital yesterday, treated for hepatic encephalopathy, following a paracentesis for recurrent ascites. Patient denies any fever, chills, shortness of breath, abdominal pain, diarrhea , or any other complaints. PMD: Dr. Ambika Bishop Time/Duration: Prior to Arrival Symptom Onset: Sudden Symptom Course: Unchanged Activities at Onset: Sleeping Context: Home Past Medical History - Provider Review Nursing Documentation Reviewed: Yes - Cardiac Hx Cardiac Disorders: Yes Hx Hypertension: Yes - Pulmonary Hx Respiratory Disorders: Yes (SMOKED CIGARETTES,QUIT SMOKING.PPDQUIT 1.5 YR AGO ) Hx Pneumonia: Yes (09-02-17) - Neurological Hx Neurological Disorder: No - HEENT Hx HEENT Disorder: No - Renal Hx Renal Disorder: No - Endocrine/Metabolic Hx Endocrine Disorders: No - Hematological/Oncological Hx Blood Disorders: Yes Hx Cirrhosis: Yes (PARACENTESIS) - Integumentary Hx Dermatological Disorder: No - Musculoskeletal/Rheumatological Hx Musculoskeletal Disorders: Yes Hx Falls: Yes Hx Unsteady Gait: Yes - Gastrointestinal Hx Gastrointestinal Disorders: Yes (N0N ALCOHOLIC LIVER CIRRHOSIS,H/O GI BLEED, INGUINAL HERNIA REPAIR) Hx Gastroesophageal Reflux: Yes - Genitourinary/Gynecological Hx Genitourinary Disorders: No - Psychiatric Hx Psychophysiologic Disorder: No Hx Substance Use: No - Surgical History Hx Coronary Stent: Yes (09-05-17) - Anesthesia Hx Anesthesia Reactions: No Hx Malignant Hyperthermia: No Family/Social History - Physician Review Nursing Documentation Reviewed: Yes Family/Social History: Unknown Family HX Smoking Status: Former Smoker Hx Alcohol Use: No Hx Substance Use: No Allergies/Home Meds Allergies/Adverse Reactions: Allergies Beef Containing Products Allergy (Severe, Verified 10/06/17 13:44) ANAPHYLAXIS tounge swelling, beef derived (bovine) Allergy (Severe, Verified 10/06/17 13:44) ANAPHYLAXIS tounge swelling banana Allergy (Intermediate, Verified 10/06/17 13:44) ITCHING Home Medications: Home Meds Medication Instructions Recorded Confirmed Furosemide [Lasix] 40 mg PO DAILY 07/21/17 10/06/17 Pantoprazole [Protonix EC Tab] 40 mg PO DAILY 07/21/17 10/06/17 Review of Systems - Physician Review All systems were reviewed & negative as marked: Yes - Review of Systems Constitutional: Normal. absent: Fevers Eyes: Normal ENT: Normal Respiratory: Normal. absent: SOB, Cough Cardiovascular: Normal. absent: Chest Pain Gastrointestinal: Vomiting, Hematemesis. absent: Abdominal Pain, Diarrhea Genitourinary Male: Normal Musculoskeletal: Normal Skin: Normal. absent: Rash Neurological: Normal. absent: Headache, Dizziness Endocrine: Normal Hemo/Lymphatic: Normal Psychiatric: Normal Physical Exam Vital Signs Reviewed: Yes Vital Signs Temp Pulse Resp BP Pulse Ox 10/06/17 08:16 63 10 L 99/46 L 100 10/06/17 08:14 95.4 F L 10/06/17 06:27 59 L 17 109/44 L 100 10/06/17 06:14 59 L 17 96/45 L 100 10/06/17 06:10 59 L 17 109/51 L 100 10/06/17 06:08 59 L 17 108/48 L 100 10/06/17 06:07 62 17 109/57 L 100 10/06/17 06:04 60 17 105/57 L 100 10/06/17 06:02 61 17 112/57 L 100 10/06/17 06:00 69 17 103/55 L 100 10/06/17 05:56 61 20 107/68 100 10/06/17 05:52 61 20 102/63 100 10/06/17 05:50 88 20 98/65 L 100 10/06/17 05:48 61 20 94/60 L 100 10/06/17 05:45 81/53 L 10/06/17 05:44 63 20 81/53 L 100 10/06/17 05:42 65 20 77/31 L 100 10/06/17 05:33 66 20 71/48 L 100 10/06/17 05:27 87 20 54/25 L 100 10/06/17 04:55 95.9 F L 10/06/17 04:42 74 20 92/57 L 100 Temperature: Afebrile Blood Pressure: Hypotensive Pulse: Regular Respiratory Rate: Normal Appearance: Positive for: Ill-Appearing. No: Non-Toxic Pain Distress: None Mental Status: Positive for: Alert and Oriented X 3 - Systems Exam Head: Present: Atraumatic, Normocephalic Pupils: Present: PERRL Extroacular Muscles: Present: EOMI Conjunctiva: Present: Normal Mouth: Present: Moist Mucous Membranes, Other (blood in mouth) Neck: Present: Normal Range of Motion Respiratory/Chest: Present: Clear to Auscultation, Good Air Exchange. No: Respiratory Distress, Accessory Muscle Use Cardiovascular: Present: Regular Rate and Rhythm, Normal S1, S2. No: Murmurs Abdomen: Present: Normal Bowel Sounds. No: Tenderness, Distention, Peritoneal Signs Rectal: Present: Occult Blood, Other (Guaiac positive) Back: Present: Normal Inspection Upper Extremity: Present: Normal Inspection. No: Cyanosis, Edema Lower Extremity: Present: Normal Inspection. No: Edema Neurological: Present: GCS=15, CN II-XII Intact, Speech Normal, Motor Func Grossly Intact, Normal Sensory Function Skin: Present: Warm, Dry, Pale. No: Rashes, Normal Color Psychiatric: Present: Alert, Oriented x 3, Normal Insight, Normal Concentration Medical Decision Making ED Course and Treatment: 10/06/17 04:29 Impression: 62 year old male brought in for hematemesis prior to arrival. Plan: -- EKG -- CXR -- Labs, cardiac enzymes, ammonia, lipase, blood type and screen -- IV fluids -- Sandostatin -- Protonix -- Pepcid -- Reassess and disposition Prior Visits: Notes and results from previous visits were reviewed. On 09/30/2017, pt was seen in the ED for increased fatigue and dizziness. Pt was admitted to the hospital for further evaluation. Pt underwent paracentesis for recurrent ascites on 10/04/17. Progress Notes: 10/06/17 04:54 Reviewed EKG, NSR at 74 bpm. Occasional PAC. Non-specific ST/T wave changes. 10/06/17 05:14 Reviewed radiology, CXR shows chronic right pleural effusion. 10/06/17 05:15 Labs noted, hgb: 7.3, hct:22. Pt type and crossed, will transfuse 2 units. 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 10/06/17 05:[address] Carias, who is aware and agrees with plan. Pt admitted to ICU for upper GI bleed under the hospitalist service. md do resident urgent care kirstin. 10/06/17 05:30 Store Operations Associate present in Emergency department to assist with care of patient . - Critical Care Critical Care Minutes: 30 minutes - Lab Interpretations Lab Results: 10/06/17 04:45 10/06/17 04:45 Lab Results 10/06/17 04:45: Blood Type A NEGATIVE, Antibody Screen Negative, Crossmatch See Detail, BBK History Checked Patient has bt 10/06/17 04:45: WBC 11.7 H D, RBC 2.09 L, Hgb 7.3 L, Hct 22.2 L, MCV 106.2 H, MCH 34.9, MCHC 32.9, RDW 15.1 H, Plt Count 206, MPV 10.0 10/06/17 04:45: Sodium 133, Potassium 4.6, Chloride 104, Carbon Dioxide 19 L, Anion Gap 15, BUN 32 H, Creatinine 2.1 H, Est GFR ( Amer) 39, Est GFR ( Non-Af Amer) 32, Random Glucose 250 H, Calcium 8.1 L, Total Bilirubin 1.8 H, AST 47, ALT 34, Alkaline Phosphatase 195 H, Lactate Dehydrogenase 450, Total Creatine Kinase 103, Troponin I 0.02, Total Protein 6.5, Albumin 2.6 L, Globulin 3.8, Albumin/Globulin Ratio 0.7 L, Lipase 98 10/06/17 04:45: PT 17.2 H, INR 1.55 H, APTT 33.5 I have reviewed the lab results: Yes - RAD Interpretation Radiology Orders: 10/06/17 04:34 CHEST PORTABLE [RAD] Stat File Clerk Data Entry: ED Physician - EKG Interpretation Interpreted by ED Physician: Yes Type: 12 lead EKG - Medication Orders Current Medication Orders: Albumin Human (Albumin Human 25% (12.5 Gm/50 Ml)) 12.5 gm IV Q6H [place]IB[place]NA Stop: 10/07/17 21:31 Last Admin: 10/07/17 16:48 Dose: 12.5 gm eMAR Start Stop Document 10/07/17 16:48 MDU (Rec: 10/07/17 16:48 MDU [facility]) Intravenous Solution Start Date 10/07/17 Start Time 16:48 End Date 10/07/17 End time 17:48 Total Infusion Time 60 Aspirin (Ecotrin) 81 mg PO DAILY [place] Octreotide Acetate 1,250 mcg/ (Sodium Chloride) 252.5 mls @ 5.05 mls/hr IV .Q24H BIB[place]NA; 25 MCG/HR PRN Reason: Protocol Last Admin: 10/07/17 05:30 Dose: 50 mcg/hr, 10.1 mls/hr eMAR Start Stop Document 10/07/17 05:30 PD (Rec: 10/07/17 06:[address]) Intravenous Solution Start Date 10/07/17 Start Time 05:30 Titration Intervention Document 10/07/17 05:30 PD (Rec: 10/07/17 06:[address]) Titration Intake Cumulative Intake (Rx) 252.5 Waste Amount 0 Container Volume 252.5 Titration Dosing Titration Dose 50 IV Rate 10.1 Intake/Decrease Started/Increased Cumulative Dose 1249.9999 NOREPINEPHRINE BIT/0.9 % NACL (Levophed 4 Mg/ 250 Ml Ns Premixed) 4 mg in 250 mls @ 15 mls/hr IV .[id number] PRN; Protocol; 4 MCG/MIN PRN Reason: TITRATE PER MD ORDER Last Titration: 10/07/17 09:30 Dose: 0 mcg/min, 0 mls/hr Titration Intervention Document 10/07/17 09:30 MDU (Rec: 10/07/17 10:[address]) Titration Intake Titration Intake 8 Cumulative Intake 168 Cumulative Intake (Rx) 418 Waste Amount 0 Container Volume 82 Titration Dosing Titration Dose 0 IV Rate 0 Intake/Decrease Paused Cumulative Dose 6.688 Meropenem 1 gm/ Dextrose 100 mls @ 100 mls/hr IVPB Q12 [place] PRN Reason: Protocol Last Admin: 10/07/17 10:40 Dose: 100 mls/hr eMAR Start Stop Document 10/07/17 10:40 MDU (Rec: 10/07/17 10:41 [facility] Intravenous Solution Start Date 10/07/17 Start Time 10:40 End Date 10/07/17 End time 11:10 Total Infusion Time 30 Lactulose (Enulose) 20 gm PO BID [facility] Last Admin: 10/07/17 18:59 Dose: Not Given Non-Admin Reason: Patient Refused Midodrine (Proamatine) 5 mg PO TID [facility] Last Admin: 10/07/17 18:59 Dose: 5 mg Morphine Sulfate (Morphine) 1 mg IVP ONCE ONE Stop: 10/07/17 21:01 Ondansetron HCl (Zofran Inj) 4 mg IVP Q4H PRN PRN Reason: Nausea/Vomiting Last Admin: 10/06/17 09:50 Dose: 4 mg IVP Administration Document 10/06/17 09:50 SUNITA (Rec: 10/06/17 16:[address]) Charges for Administration # of IVP Administrations 1 Pantoprazole Sodium (Protonix Inj) 40 mg IVP BID [facility] Last Admin: 10/07/17 19:00 Dose: 40 mg IVP Administration Document 10/07/17 19:00 MDU (Rec: 10/07/17 19:[address]) Charges for Administration # of IVP Administrations 1 Rifaximin (Xifaxan) 550 mg PO BID [place]NA PRN Reason: Protocol Last Admin: 10/07/17 19:00 Dose: 550 mg Discontinued Medications Albumin Human (Albumin Human 25% (12.5 Gm/50 Ml)) 12.5 gm IV Q4H [facility] Stop: 10/06/17 17:46 Last Admin: 10/06/17 19:24 Dose: 12.5 gm eMAR Start Stop Document 10/06/17 19:24 SUNITA (Rec: 10/06/17 19:25 SUNITA [id number] Intravenous Solution Start Date 10/06/17 Start Time 18:00 End Date 10/06/17 End time 19:00 Total Infusion Time 60 Aspirin (Ecotrin) 81 mg PO DAILY [facility] Last Admin: 10/06/17 15:40 Dose: Not Given Non-Admin Reason: NPO Famotidine (Pepcid) 20 mg IVP STAT STA Stop: 10/06/17 04:36 Last Admin: 10/06/17 04:55 Dose: 20 mg IVP Administration Document 10/06/17 04:55 JOL (Rec: 10/06/17 05:07 [id number] Charges for Administration # of IVP Administrations 1 Sodium Chloride (Sodium Chloride 0.9%) 500 mls @ 500 mls/hr IV .Q1H STA Stop: 10/06/17 05:34 Last Admin: 10/06/17 05:04 Dose: 500 mls/hr eMAR Start Stop Document 10/06/17 05:04 BEBETO (Rec: 10/06/17 05:04 BEBETO [id number]) Intravenous Solution Start Date 10/06/17 Start Time 05:04 Pantoprazole Sodium (Protonix 40mg Ivpb) 40 mg in 100 mls @ 20 mls/hr IVPB .Q5H [place] Last Admin: 10/07/17 01:45 Dose: 20 mls/hr eMAR Start Stop Document 10/07/17 01:45 PD (Rec: 10/07/17 01:46 PD [facility] [id number]) Intravenous Solution Start Date 10/07/17 Start Time 01:46 Meropenem 1 gm/ Dextrose 100 mls @ 100 mls/hr IVPB Q12 [place] PRN Reason: Protocol Stop: 10/06/17 10:59 Vancomycin HCl (Vancomycin 1gm) 1 gm in 250 mls @ 167 mls/hr IVPB DAILY BIB[place]NA PRN Reason: Protocol Sodium Chloride (Sodium Chloride 0.9%) 500 mls @ 999 mls/hr IV .Q31M STA Stop: 10/06/17 06:10 Last Admin: 10/06/17 05:40 Dose: 999 mls/hr eMAR Start Stop Document 10/06/17 05:40 JOL (Rec: 10/06/17 05:55 JOL [id number]) Intravenous Solution Start Date 10/06/17 Start Time 05:40 Meropenem 1 gm/ Dextrose 100 mls @ 100 mls/hr IVPB Q12H [place] PRN Reason: Protocol Stop: 10/14/17 06:57 Sodium Chloride (Sodium Chloride 0.9%) 1,000 mls @ 999 mls/hr IV .Q1H1M STA Stop: 10/06/17 08:40 Last Admin: 10/06/17 08:12 Dose: 999 mls/hr eMAR Start Stop Document 10/06/17 08:12 MR (Rec: 10/06/17 08:12 MR [id number]) Intravenous Solution Start Date 10/06/17 Start Time 08:12 End Date 10/06/17 End time 09:13 Total Infusion Time 61 Phytonadione 10 mg/ Sodium (Chloride) 51 mls @ 100 mls/hr IV ONCE ONE Stop: 10/06/17 09:54 Last Admin: 10/06/17 16:06 Dose: 100 mls/hr eMAR Start Stop Document 10/06/17 16:06 SUNITA (Rec: 10/06/17 16:07 SUNITA [id number]) Intravenous Solution Start Date 10/06/17 Start Time 10:15 End Date 10/06/17 End time 10:45 Total Infusion Time 30 Vancomycin HCl (Vancomycin 1gm) 1 gm in 250 mls @ 167 mls/hr IVPB STAT STA PRN Reason: Protocol Stop: 10/06/17 11:34 Last Admin: 10/06/17 10:35 Dose: 167 mls/hr eMAR Start Stop Document 10/06/17 10:35 SUNITA (Rec: 10/06/17 16:06 SUNITA [id number]) Intravenous Solution Start Date 10/06/17 Start Time 10:35 End Date 10/06/17 End time 12:05 Total Infusion Time 90 Vasopressin 20 units/ Sodium (Chloride) 101 mls @ 9.09 mls/hr IV .Q11H7M BIB[place]NA; 0.03 U/MIN PRN Reason: Protocol Last Admin: 10/06/17 15:41 Dose: Not Given Non-Admin Reason: BP Parameters Not Met Lactulose (Generlac) 200 gm VT Q8 [place]IB[place]NA Last Admin: 10/07/17 06:10 Dose: Not Given Non-Admin Reason: Patient Refused Octreotide Acetate (Sandostatin) 50 mcg IVP STAT STA Stop: 10/06/17 04:38 Last Admin: 10/06/17 04:55 Dose: 50 mcg IVP Administration Document 10/06/17 04:55 MEKHI (Rec: 10/06/17 05:08 JOGregg [id number]) Charges for Administration # of IVP Administrations 1 Ondansetron HCl (Zofran Inj) 4 mg IVP ONCE ONE Stop: 10/06/17 05:04 Last Admin: 10/06/17 05:08 Dose: 4 mg IVP Administration Document 10/06/17 05:08 JOL (Rec: 10/06/17 05:09 JO [id number]) Charges for Administration # of IVP Administrations 1 Pantoprazole Sodium (Protonix Inj) 40 mg IVP ONCE STA Stop: 10/06/17 04:38 Last Admin: 10/06/17 04:55 Dose: 40 mg IVP Administration Document 10/06/17 04:55 JOL (Rec: 10/06/17 05:08 [facility] [id number]) Charges for Administration # of IVP Administrations 1 Pantoprazole Sodium (Protonix Inj) 40 mg IVP DAILY BIB[place]NA - Scribe Statement The provider has reviewed the documentation as recorded by the Corina Julien Provider Scribe Attestation: All medical record entries made by the Scribe were at my direction and personally dictated by me. I have reviewed the chart and agree that the record accurately reflects my personal performance of the history, physical exam, medical decision making, and the department course for this patient. I have also personally directed, reviewed, and agree with the discharge instructions and disposition. Disposition/Present on Arrival - Present on Arrival Any Indicators Present on Arrival: No History of DVT/PE: No History of Uncontrolled Diabetes: No Urinary Catheter: No History of Decub. Ulcer: No History Surgical Site Infection Following: None - Disposition Have Diagnosis and Disposition been Completed?: Yes Diagnosis: Upper GI bleed Disposition: HOSPITALIZED Disposition Time: 05:25 Patient Plan: Admission Patient Problems: Current Active Problems Problem Status Onset Upper GI bleed Acute Condition: GUARDED
[2017-10-06] MEDS: Sodium Chloride 0.9% 500 ML IV STA ×2 (04:55→05:04)
[2017-10-06 05:13] LABS: MEAN CELL VOLUME 106.2 fl (80.0-105.0); MEAN CORPUSCULAR HEMOGLOBIN 34.9 pg (25.0-35.0); MEAN CORPUSCULAR HGB CONC 32.9 g/dl (31.0-37.0); RED CELL DISTRIBUTION WIDTH 15.1 % (11.5-14.5); WHITE BLOOD COUNT 11.7 10^3/ul (4.5-11.0)
[2017-10-06 05:16] LABS: HEMATOCRIT 22.2 % (42.0-52.0)
[2017-10-06 05:19] LABS: BILIRUBIN,TOTAL 1.8 mg/dL (0.2-1.3); CALCIUM 8.1 mg/dL (8.4-10.5); POTASSIUM 4.6 mmol/L (3.6-5.0); TOTAL PROTEIN 6.5 g/dL (5.8-8.3)
[2017-10-06 05:27] LABS: INR 1.55 (0.93-1.08); PARTIAL THROMBOPLASTIN TIME 33.5 Seconds (25.1-36.5)
[2017-10-06 05:30] LABS: TROPONIN I 0.02 ng/mL
[2017-10-06] MEDS ORDERED: DOPamine 400mg/250ml D5W 400 MG/250 ML BAG IV PRN (05:31)
[2017-10-06] MEDS ORDERED: DOPamine 400mg/250ml D5W 400 MG/250 ML BAG IV ONE (05:33)
[2017-10-06] MEDS ORDERED: NOREPINEPHRINE BIT/0.9 % NACL 4 MG/250 ML BAG IV ONE (05:36)
[2017-10-06] MEDS ORDERED: Sodium Chloride 0.9% 500 ML IV STA (05:40)
[2017-10-06] MEDS: NOREPINEPHRINE BIT/0.9 % NACL 4 MG/250 ML BAG IV PRN ×2 (05:40→23:49)
[2017-10-06 05:51] LABS: ALB/GLOB RATIO 0.7 (1.1-1.8)
--- NOTE | 2017-10-06 06:00 | CP.PCM.HP ---
<Obie Velazquez - Last Filed: 10/06/17 06:33> History of Present Illness - History of Present Illness History of Present Illness: Patient is a 62 year old male with past medical history of TRUJILLO, afib s/p cardioversion, HTN, GERD, CHF presents to the ED for episodes of hematemesis. History was obtained by patients partner who has POA. Partner states patient had several episodes of vomiting with blood around 3:30 am today. Partner stated patient vomited up about 100-200ccs of blood. Patient also states he has shortness of breath and abdominal pain. Denies headaches, visual changes, hearing changes, cp, palpitations, urinary symptoms or other complaints at this time. PMD: Dr Bishop Icu Clerk: Dr Angeles Allergies: Beef products, banana Medications: Plavix 75mg, ASA 81, Lasix 40mg, Nadolol 10mg, Spiranaldactone 100mg, Xanax 0.5mg Medical Hx: HTN, GERD, Non-alcoholic liver cirrhosis, Ascites, CHF, afib s/p cardioversion Surgical Hx: Inguinal hernia repair Social Hx: Denies alcohol, drug used; Former smoker, quit 1 1/2 ago Family Hx: Mother - DM, heart disease; Father - [place] Present on Admission - Present on Admission Any Indicators Present on Admission: No Review of Systems - Constitutional Constitutional: absent: Anorexia, Chills, Fever, Headache, Weakness - EENT Eyes: absent: Blurred Vision, Change in Vision Nose/Mouth/Throat: absent: Nasal Congestion, Nasal Discharge - Cardiovascular Cardiovascular: Dyspnea. absent: Chest Pain, Lightheadedness, Radiating Pain, Rapid Heart Rate, Syncope - Respiratory Respiratory: Dyspnea - Gastrointestinal Gastrointestinal: Abdominal Pain. absent: Constipation, Diarrhea - Genitourinary Genitourinary: absent: Change in Urinary Stream, Difficulty Urinating - Musculoskeletal Musculoskeletal: absent: Arthralgias, Numbness, Tingling - Neurological Neurological: absent: Dizziness, Headaches Past Patient History - Past Social History Smoking Status: Former Smoker - CARDIAC Hx Cardiac Disorders: Yes Hx Hypertension: Yes - PULMONARY Hx Respiratory Disorders: Yes (SMOKED CIGARETTES,QUIT SMOKING.PPDQUIT 1.5 YR AGO ) Hx Pneumonia: Yes (09-02-17) - NEUROLOGICAL Hx Neurological Disorder: No - HEENT Hx HEENT Problems: No - RENAL Hx Chronic Kidney Disease: No - ENDOCRINE/METABOLIC Hx Endocrine Disorders: No - HEMATOLOGICAL/ONCOLOGICAL Hx Blood Disorders: Yes Hx Cirrhosis: Yes (PARACENTESIS) - INTEGUMENTARY Hx Dermatological Problems: No - MUSCULOSKELETAL/RHEUMATOLOGICAL Hx Musculoskeletal Disorders: Yes Hx Falls: Yes Hx Unsteady Gait: Yes - GASTROINTESTINAL Hx Gastrointestinal Disorders: Yes (N0N ALCOHOLIC LIVER CIRRHOSIS,H/O GI BLEED, INGUINAL HERNIA REPAIR) Hx Gastroesophageal Reflux: Yes - GENITOURINARY/GYNECOLOGICAL Hx Genitourinary Disorders: No - PSYCHIATRIC Hx Psychophysiologic Disorder: No Hx Substance Use: No - SURGICAL HISTORY Hx Coronary Stent: Yes (09-05-17) - ANESTHESIA Hx Anesthesia Reactions: No Hx Malignant Hyperthermia: No Meds Allergies/Adverse Reactions: Allergies Allergy/AdvReac Type Severity Reaction Status Date / Time Beef Containing Products Allergy Severe ANAPHYLAXIS Verified 10/06/17 04:40 beef derived (bovine) Allergy Severe ANAPHYLAXIS Verified 10/06/17 04:40 banana Allergy Intermediate ITCHING Verified 10/06/17 04:40 Physical Exam - Constitutional Appears: Toxic, Chronically Ill - Head Exam Head Exam: ATRAUMATIC, NORMAL INSPECTION, NORMOCEPHALIC - Eye Exam Eye Exam: Normal appearance, Scleral icterus - ENT Exam ENT Exam: Mucous Membranes Dry - Neck Exam Neck exam: Positive for: Normal Inspection - Respiratory Exam Respiratory Exam: NORMAL BREATHING PATTERN - Cardiovascular Exam Cardiovascular Exam: REGULAR RHYTHM, +S1, +S2 - GI/Abdominal Exam GI & Abdominal Exam: Distended, Tenderness - Extremities Exam Extremities exam: Positive for: pedal pulses present - Neurological Exam Neurological exam: Alert, Oriented x3 - Skin Skin Exam: Pallor Results - Vital Signs Recent Vital Signs: Last Vital Signs Temp 95.9 F L 10/06/17 04:55 Pulse 74 10/06/17 04:42 Resp 20 10/06/17 04:42 BP 92/57 L 10/06/17 04:42 Pulse Ox 100 10/06/17 04:42 - Labs Result Diagrams: 10/06/17 04:45 10/06/17 04:45 Labs: Laboratory Results - last 24 hr 10/06/17 05:25 Ammonia 234 H* Assessment & Plan - Assessment and Plan (Free Text) Assessment: Patient is a 62 year old male with past medical history of TRUJILLO, afib s/p cardioversion, HTN, GERD, CHF presents to the ED for episodes of hematemesis. Plan: 1. Hematemesis-likely secondary to esophageal varices due to h/o cirrhosis -Hgb: 7.3 -will monitor with CBC and CMP around the clock -EKG ordered and obtained, pending official read, sinus rhythm -Protonix -octreotide -NPO -Albumin IV given -type and cross -will transfuse PRBC if Hemoglobin <7 -GI consulted, Dany, will follow recs -stool occult blood positive 2. SIRS -Leukocytosis WBC 11.7 -Temp 95.2 -voncomycin -meropenem -ABG/Shock Panel -started on levophed -f/u blood and urine culture -Id consulted, Crystal, follow recs 3. Acute Renal Failure: Intravascular Depletion vs. Hepato-Renal Syndrome -BUN32 Cr2.1 -Albumin challenge -will continue to monitor -cautiously started IV fluids -Nephro consulted, will follow up recs 4. Elevated Ammonia level: likely secondary to SIRS v Hepatic Encephalopathy -Ammonia 234 -lactulose 30 [place] BID -continue to monitor 5. HTN-chronic -109/57 -currently holding HTN medications due to low blood pressure -On levophed 6. History of Afib s/p cardioversion -EKG sinus rhythm, penidng official read -History of CAD s/p cardiac cath with bare metal stent placement, holding aspirin and plavix due to active bleeding 7. History of TRUJILLO with ascites -Continue Aldactone 100mg -AST/ALT 47/34 T bili 1.8 8. CHF (diastolic dysfunction) -Last echo 08/2017 showed normal LVEF and LV size, dilated RA/RV/LA -CXR pending official read -Continue Aldactone 100mg -Strict I/Os GI/DVT PPx -Protonix -SCDs <Aretha GARCIA,Nikolai - Last Filed: 10/06/17 08:48> Results - Vital Signs Recent Vital Signs: Last Vital Signs Temp 95.4 F L 10/06/17 08:14 Pulse 63 10/06/17 08:16 Resp 10 L 10/06/17 08:16 BP 99/46 L 10/06/17 08:16 Pulse Ox 100 10/06/17 08:16 - Labs Result Diagrams: 10/06/17 04:45 10/06/17 04:45 Labs: Laboratory Results - last 24 hr 10/06/17 05:25 Ammonia 234 H* Attending/Attestation - Attestation I have personally seen and examined this patient.: Yes I have fully participated in the care of the patient.: Yes I have reviewed all pertinent clinical information: Yes Notes (Text): -I agree with the above H&P completed by the resident physician with the following additions and/or changes: -The patient is a 62 year old man with history of TRUJILLO, liver cirrhosis, CAD, GERD and HTN who was recently discharged from [facility] after being treated for ascites (with a therapeutic paracentesis) and hepatic encephalophathy. He now presents with acute hematemesis (red and maroon colored per youth care worker report) which apparently began within hours after returning home from the hospital yesterday. He also has become altered again, according to the patient's logging specialist. He denies any fevers, chills, diarrhea, black or bloody stool or drainage from the recent paracentesis site. He does report vague, intermittent, diffuse abdominal pain however. In the ED, he was found to be hypotensive initially (SBP=60's). Also, ED labs show a sudden increase in Ammonia level ( from 30's to 200's) and serum creatitine level (normal to 2.1) within the past 24 hours. Additionally, in the ED, his initial rectal temp was 95.6. As a result , he will be admitted to the ICU for management of his acute hematemesis ( possibly due to esophageal varices), Septic shock (source still unclear), acute renal failure and hepatic encephalopathy. Empiric IV Meropenem/Vanco (renally dosed) will be started. Also, Lactulose [place] BID and Levophed drip will be started (after Rt IJ placement). Protonix and Octreotide drips have already been initiated. Also, IV Albumin will be administered Q4hrs. ID, GI, and nephrology services have all been consulted.
[2017-10-06] MEDS ORDERED: Meropenem 1 GM in Dextrose 5% In Water 100 ML IVPB SCH ×2 (06:56→10:00)
[2017-10-06] MEDS ORDERED: Vancomycin 1gm in NS 250ml 1 GM/250 ML BAG IVPB SCH ×2 (07:00→10:00)
[2017-10-06] MEDS ORDERED: Sodium Chloride 0.9% 1,000 ML IV STA (07:40)
[2017-10-06] MEDS: Pantoprazole 40mg/100ml IVPB 40 MG/100 ML BAG IVPB SCH ×4 (08:12→20:25)
--- NOTE | 2017-10-06 08:41 | RAD ---
HISTORY: fever COMPARISON: 09/30/2017 FINDINGS: LUNGS: No active pulmonary disease. PLEURA: There is a small to moderate right pleural effusion. CARDIOVASCULAR: Normal. OSSEOUS STRUCTURES: No significant abnormalities. VISUALIZED UPPER ABDOMEN: Normal. OTHER FINDINGS: None. IMPRESSION: Small to moderate right pleural effusion. No evidence of pneumonia
--- NOTE | 2017-10-06 08:45 | RAD ---
HISTORY: TLC placement COMPARISON: No prior. FINDINGS: LUNGS: There is a new right internal jugular line terminating in the SVC. Skin folds and layered pleural effusions are seen on the right but there is no definite evidence of pneumothorax PLEURA: Right-sided pleural effusion CARDIOVASCULAR: Normal. OSSEOUS STRUCTURES: No significant abnormalities. VISUALIZED UPPER ABDOMEN: Normal. OTHER FINDINGS: None. IMPRESSION: Satisfactory position of right IJ line. No pneumothorax
[2017-10-06] MEDS ORDERED: Phytonadione 10 MG in Sodium Chloride 0.9% 50 ML IV ONE (09:24)
--- NOTE | 2017-10-06 09:58 | CP.PCM.CON ---
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 Pt presents to the ED after acute onset of hematemesis 150cc of bright red blood per EMS, this started at 3am and which time his partner called EMS. Pt denies melena, hematochezia nd no recent episode of hematemesis. Pt was just discharged from the hospital 2 days ago during which time he had a paracentesis with 7L of peritoneal fluid removed no SBP. Pt states that the etiology of cirrhosis is unknown, but states that he does not currently follow a staffing director. Recent labwork was negative for hepatitis C and no prior hx of alcohol abuse. Pt notes that he has had 4 previous paracentesis. He states that he never had an endoscopy or colonoscopy with his GI bleed but was just told to stop his Coumadin for hx of Afib. Pt just had cardiac cath with bare metal stent placed one month ago and is supposed to be on aspirin/plavix which per the pt he was told upon discharge to stop his plavix therapy. He states that he is on diuretics and nadolol. He denies any previous endoscopy and colonoscopy. In the ER was pt hypothermic, hypotensive and was stared on IV levophed, IV octreotide, IV PPI drip, and 2U RBCs were ordered, IV abx. ROS: 12-point ROS conducted, neg other than above Medical Hx: HTN, GERD, Non-alcoholic liver cirrhosis, Ascites, CHF, afib s/p cardioversion, GI Bleed, HE Surgical Hx: Inguinal hernia repair Social Hx: Denies alcohol, drug used; Former smoker, quit 1 1/2 ago Family Hx: Mother - DM, heart disease; Father - OK Past Patient History - Past Social History Smoking Status: Former Smoker - CARDIAC Hx Cardiac Disorders: Yes Hx Hypertension: Yes - PULMONARY Hx Respiratory Disorders: Yes (SMOKED CIGARETTES,QUIT SMOKING.PPDQUIT 1.5 YR AGO ) Hx Pneumonia: Yes (10-13-17) - NEUROLOGICAL Hx Neurological Disorder: No - HEENT Hx HEENT Problems: No - RENAL Hx Chronic Kidney Disease: No - ENDOCRINE/METABOLIC Hx Endocrine Disorders: No - HEMATOLOGICAL/ONCOLOGICAL Hx Blood Disorders: Yes Hx Cirrhosis: Yes (PARACENTESIS) - INTEGUMENTARY Hx Dermatological Problems: No - MUSCULOSKELETAL/RHEUMATOLOGICAL Hx Musculoskeletal Disorders: Yes Hx Falls: Yes Hx Unsteady Gait: Yes - GASTROINTESTINAL Hx Gastrointestinal Disorders: Yes (N0N ALCOHOLIC LIVER CIRRHOSIS,H/O GI BLEED, INGUINAL HERNIA REPAIR) Hx Gastroesophageal Reflux: Yes - GENITOURINARY/GYNECOLOGICAL Hx Genitourinary Disorders: No - PSYCHIATRIC Hx Psychophysiologic Disorder: No Hx Substance Use: No - SURGICAL HISTORY Hx Coronary Stent: Yes (09-05-17) - ANESTHESIA Hx Anesthesia Reactions: No Hx Malignant Hyperthermia: No Meds Allergies/Adverse Reactions: Allergies Allergy/AdvReac Type Severity Reaction Status Date / Time Beef Containing Products Allergy Severe ANAPHYLAXIS Verified 10/06/17 04:40 beef derived (bovine) Allergy Severe ANAPHYLAXIS Verified 10/06/17 04:40 banana Allergy Intermediate ITCHING Verified 10/06/17 04:40 - Medications Medications: Current Medications Albumin Human (Albumin Human 25% (12.5 Gm/50 Ml)) 12.5 gm IV Q4H BIBIANA Stop: 10/06/17 17:46 Pantoprazole Sodium (Protonix 40mg Ivpb) 40 mg in 100 mls @ 20 mls/hr IVPB .Q5H BIB[place]NA Last Admin: 10/06/17 08:12 Dose: 20 mls/hr Octreotide Acetate 1,250 mcg/ (Sodium Chloride) 252.5 mls @ 5.05 mls/hr IV .Q24H BIB[place]NA; 25 MCG/HR PRN Reason: Protocol Last Admin: 10/06/17 05:30 Dose: 25 mcg/hr, 5.05 mls/hr NOREPINEPHRINE BIT/0.9 % NACL (Levophed 4 Mg/ 250 Ml Ns Premixed) 4 mg in 250 mls @ 15 mls/hr IV .[id number] PRN; Protocol; 4 MCG/MIN PRN Reason: TITRATE PER MD ORDER Last Titration: 10/06/17 06:16 Dose: 12 mcg/min, 45 mls/hr Meropenem 1 gm/ Dextrose 100 mls @ 100 mls/hr IVPB Q12H BIB[place]NA PRN Reason: Protocol Stop: 10/14/17 06:57 Vancomycin HCl (Vancomycin 1gm) 1 gm in 250 mls @ 167 mls/hr IVPB 0700 BIBIANA PRN Reason: Protocol Phytonadione 10 mg/ Sodium (Chloride) 51 mls @ 100 mls/hr IV ONCE ONE Stop: 10/06/17 09:54 Lactulose (Generlac) 200 gm [place] Q8 BIB[place]NA Physical Exam - Constitutional Appears: Cachectic, Chronically Ill - Head Exam Head Exam: ATRAUMATIC, NORMAL INSPECTION, NORMOCEPHALIC - Eye Exam Eye Exam: EOMI, Normal appearance, PERRL Pupil Exam: PERRL - ENT Exam ENT Exam: Mucous Membranes Dry Additional comments: blood around mouth and tongue - Neck Exam Neck exam: Positive for: Full Rom, Normal Inspection - Respiratory Exam Respiratory Exam: Decreased Breath Sounds - Cardiovascular Exam Cardiovascular Exam: REGULAR RHYTHM - GI/Abdominal Exam GI & Abdominal Exam: Normal Bowel Sounds, Soft. absent: Distended, Guarding, Organomegaly, Tenderness - Rectal Exam Rectal Exam: Deferred - Extremities Exam Extremities exam: Positive for: normal inspection. Negative for: pedal edema - Back Exam Back exam: NORMAL INSPECTION - Neurological Exam Neurological exam: Alert, Oriented x3 - Skin Skin Exam: Dry, Intact, Pallor Results - Vital Signs Recent Vital Signs: Last Vital Signs Temp 95.4 F L 10/06/17 08:14 Pulse 63 10/06/17 08:16 Resp 10 L 10/06/17 08:16 BP 99/46 L 10/06/17 08:16 Pulse Ox 100 10/06/17 08:16 - Labs Result Diagrams: 10/06/17 04:45 10/06/17 04:45 Labs: Laboratory Results - last 24 hr 10/06/17 05:25 Ammonia 234 H* Assessment & Plan - Assessment and Plan (Free Text) Assessment: This is a 62yM presenting with acute onset of hematemesis and anemia. 1. UGIB likely variceal vs PUD 2. Anemia 3. Decompensated cirrhosis MELD 24 4. Hx of GI bleeding 5. CAD s/p bare metal [id number] ago Plan: -Continue supportive care with ICU admission and close monitoring -Active UGIB with hematemesis concern for variceal bleeding vs PUD -Order IV Octreotide drip 50mcg/hr -Order IV PPI drip -NPO -IV Vit K 10mg one time dose -Hold diuretics with KEYUR -Continue lactulose and rifaxamin for HE prevention -Hold nadolol at this time, will make further recommendations after EGD -Pt's BP stable around 90s-100s which is pt's baseline due to hx of cirrhosis, recommend discontinuing IV Levophed, will defer to primary team -Pt's s/p recent paracentesis with no SBP, can narrow abx to IV Ceftriaxone for UGIB but will defer to primary team -Do not recommend holding aspirin or plavix with recent cardiac cath and bare metal stent placement, recommend cardiology consult -Transfuse 1U PRBCs, monitor H/H -Will plan for emergent endoscopy today at bedside for possible variceal banding or hemostasis of other etiology of GI bleeding -Consent was obtained and signed for emergent EGD by pt's CHAYITO and partner Nuno -Will continue to follow pt closely -Case discussed with ICU team <Pedro Paige - Last Filed: 10/06/17 10:19> Meds - Medications Medications: Current Medications Albumin Human (Albumin Human 25% (12.5 Gm/50 Ml)) 12.5 gm IV Q4H BIBIANA Stop: 10/06/17 17:46 Pantoprazole Sodium (Protonix 40mg Ivpb) 40 mg in 100 mls @ 20 mls/hr IVPB .Q5H B[place]NA Last Admin: 10/06/17 08:12 Dose: 20 mls/hr Octreotide Acetate 1,250 mcg/ (Sodium Chloride) 252.5 mls @ 5.05 mls/hr IV .Q24H BIB[place]NA; 25 MCG/HR PRN Reason: Protocol Last Admin: 10/06/17 05:30 Dose: 25 mcg/hr, 5.05 mls/hr NOREPINEPHRINE BIT/0.9 % NACL (Levophed 4 Mg/ 250 Ml Ns Premixed) 4 mg in 250 mls @ 15 mls/hr IV .[id number] PRN; Protocol; 4 MCG/MIN PRN Reason: TITRATE PER MD ORDER Last Titration: 10/06/17 06:16 Dose: 12 mcg/min, 45 mls/hr Meropenem 1 gm/ Dextrose 100 mls @ 100 mls/hr IVPB Q12H BIB[place]NA PRN Reason: Protocol Stop: 10/14/17 06:57 Vancomycin HCl (Vancomycin 1gm) 1 gm in 250 mls @ 167 mls/hr IVPB STAT STA PRN Reason: Protocol Stop: 10/06/17 11:34 Lactulose (Generlac) 200 gm [place] Q8 BIB[place]NA Ondansetron HCl (Zofran Inj) 4 mg IVP Q4H PRN PRN Reason: Nausea/Vomiting Results - Vital Signs Recent Vital Signs: Last Vital Signs Temp 95.4 F L 10/06/17 08:14 Pulse 63 10/06/17 08:16 Resp 10 L 10/06/17 08:16 BP 99/46 L 10/06/17 08:16 Pulse Ox 100 10/06/17 08:16 - Labs Result Diagrams: 10/06/17 04:45 10/06/17 04:45 Labs: Laboratory Results - last 24 hr 10/06/17 05:25 Ammonia 234 H* Attending/Attestation - Attestation I have personally seen and examined this patient.: Yes I have fully participated in the care of the patient.: Yes I have reviewed all pertinent clinical information: Yes Notes (Text): 10/06/17 10:15 62 year old male with h/o Cirrhosis c/b ascites, HE, h/o CAD s/p BMS 1 month ago admitted with hematemesis. 1. Upper GI bleeding 2. Decompensated cirrhosis 3. Ascites 4. Acute renal failure 5. Hepatic encephalopathy Plan: -recommend PPI and octreotide infusion -recommend abx for SBP prophylaxis -NPO -give vitamin k -continue lactulose/rifaxamin -urgent EGD today -may continue asa/plavix if necessary from cardiac standpoint to prevent OK -recommend abdominal US to eval for ascites and consider tap if significant -recommend fluid resuscitation/blood transfusion considering likely dehydration and renal failure -check UA, urine lytes
[2017-10-06] MEDS ORDERED: Vancomycin 1gm in NS 250ml 1 GM/250 ML BAG IVPB STA (10:05)
--- NOTE | 2017-10-06 10:15 | CP.PCM.CON ---
History of Present Illness - History of Present Illness History of Present Illness: 62 year old male with PMH of non-alocholic steatohepatitis with liver cirrhosis and ascites, atrial fibrillation S/P cardioversion, chronic renal failure was recently admitted in [facility] a few weeks ago for paracentesis of ascites and was being treated for spontaneous bacterial peritonitis then with Zosyn. He was then discharged well until early this morning when he started vomiting bloody material, associated with weakness, abdominal pain. He denies fever or chills, has nausea as well, no sore throat, no cough or colds but has mild shortness of breath at rest, no dysuria, no diarrhea. In the ED, he was noted to be hypothermic and tachycardic, as well as with leukocytosis. Infectious diseases consult is requested to further evaluate and manage. Review of Systems - Review of Systems All systems: reviewed and no additional remarkable complaints except (as per HPI ) Past Patient History - Past Social History Smoking Status: Former Smoker - CARDIAC Hx Cardiac Disorders: Yes Hx Hypertension: Yes - PULMONARY Hx Respiratory Disorders: Yes (SMOKED CIGARETTES,QUIT SMOKING.PPDQUIT 1.5 YR AGO ) Hx Pneumonia: Yes (09-02-17) - NEUROLOGICAL Hx Neurological Disorder: No - HEENT Hx HEENT Problems: No - RENAL Hx Chronic Kidney Disease: No - ENDOCRINE/METABOLIC Hx Endocrine Disorders: No - HEMATOLOGICAL/ONCOLOGICAL Hx Blood Disorders: Yes Hx Cirrhosis: Yes (PARACENTESIS) - INTEGUMENTARY Hx Dermatological Problems: No - MUSCULOSKELETAL/RHEUMATOLOGICAL Hx Musculoskeletal Disorders: Yes Hx Falls: Yes Hx Unsteady Gait: Yes - GASTROINTESTINAL Hx Gastrointestinal Disorders: Yes (N0N ALCOHOLIC LIVER CIRRHOSIS,H/O GI BLEED, INGUINAL HERNIA REPAIR) Hx Gastroesophageal Reflux: Yes - GENITOURINARY/GYNECOLOGICAL Hx Genitourinary Disorders: No - PSYCHIATRIC Hx Psychophysiologic Disorder: No Hx Substance Use: No - SURGICAL HISTORY Hx Coronary Stent: Yes (09-05-17) - ANESTHESIA Hx Anesthesia Reactions: No Hx Malignant Hyperthermia: No Meds Allergies/Adverse Reactions: Allergies Allergy/AdvReac Type Severity Reaction Status Date / Time Beef Containing Products Allergy Severe ANAPHYLAXIS Verified 10/06/17 04:40 beef derived (bovine) Allergy Severe ANAPHYLAXIS Verified 10/06/17 04:40 banana Allergy Intermediate ITCHING Verified 10/06/17 04:40 - Medications Medications: Current Medications Albumin Human (Albumin Human 25% (12.5 Gm/50 Ml)) 12.5 gm IV Q4H BIBIANA Stop: 10/06/17 17:46 Pantoprazole Sodium (Protonix 40mg Ivpb) 40 mg in 100 mls @ 20 mls/hr IVPB .Q5H BIB[place]NA Octreotide Acetate 1,250 mcg/ (Sodium Chloride) 252.5 mls @ 5.05 mls/hr IV .Q24H BIBIANA; 25 MCG/HR PRN Reason: Protocol Last Admin: 10/06/17 05:30 Dose: 25 mcg/hr, 5.05 mls/hr NOREPINEPHRINE BIT/0.9 % NACL (Levophed 4 Mg/ 250 Ml Ns Premixed) 4 mg in 250 mls @ 15 mls/hr IV .[id number] PRN; Protocol; 4 MCG/MIN PRN Reason: TITRATE PER MD ORDER Last Titration: 10/06/17 06:16 Dose: 12 mcg/min, 45 mls/hr Meropenem 1 gm/ Dextrose 100 mls @ 100 mls/hr IVPB Q12H BIB[place]NA PRN Reason: Protocol Stop: 10/06/17 07:55 Vancomycin HCl (Vancomycin 1gm) 1 gm in 250 mls @ 167 mls/hr IVPB 0700 BIBIANA PRN Reason: Protocol Lactulose (Generlac) 200 gm [place] Q8 BIBIANA Physical Exam - Constitutional Appears: Cachectic, Chronically Ill, Other (ill-appearing, still has bloody vomitus) - Head Exam Head Exam: NORMAL INSPECTION - Neck Exam Neck exam: Negative for: Meningismus - Respiratory Exam Respiratory Exam: Decreased Breath Sounds - Cardiovascular Exam Cardiovascular Exam: +S1, +S2 - GI/Abdominal Exam GI & Abdominal Exam: Guarding (mild), Soft, Tenderness (diffuse). absent: Firm , Rebound, Rigid Results - Vital Signs Recent Vital Signs: Last Vital Signs Temp 95.9 F L 10/06/17 04:55 Pulse 59 L 10/06/17 06:27 Resp 17 10/06/17 06:27 BP 109/44 L 10/06/17 06:27 Pulse Ox 100 10/06/17 06:27 - Labs Result Diagrams: 10/06/17 04:45 10/06/17 04:45 Labs: Laboratory Results - last 24 hr 10/06/17 05:25 Ammonia 234 H* Assessment & Plan - Assessment and Plan (Free Text) Plan: Assessment systemic inflammatory response syndrome, consider due to upper GI bleeding, R/O variceal bleeding, R/O spontaneous bacterial peritonitis history of probable spontaneous bacterial peritonitis 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
--- NOTE | 2017-10-06 10:19 | PCM.PROC ---
Procedures Attestation:: I certify that I have explained the specified Operation(s) or Procedure(s), risks, benefits and reasonable alternatives to the Patient and/or other person responsible. The opportunity was given to ask questions and all questions answered - Central Line Placement Right Internal Jugular Aseptic technique was employed throughout the procedure: Hand Hygiene done prior to procedure, Full sterile barriers (mask, hair cover, sterile gown, sterile gloves), Full body sterile drape, Chloraprep Antiseptic: 30 second prep for IJ or SC sites CVP Time Out Performed: Yes Pt. Placed on Pulse Ox Monitor: Yes Central Line Prep: Chlorhexidine-Alcohol Combination Local Anesthesia Used: Lidocaine 1% Ultrasound Used for Placement: Yes Central Line Lumen Inserted: triple Central Line Length: 20 cm Post Procedure: Sutured in Place, Good Blood Return, All Ports Aspirated, Flushed, Capped, Sterile Dressing Applied Secured by: Securement device Post procedure dressing: Chlorhexidine disc (Biopatch) Post Procedure X-Ray: Yes Patient Tolerated Procedure: Well Immediate Complications: None
--- NOTE | 2017-10-06 11:32 | CP.CCUPN ---
<Steven Dixon - Last Filed: 10/06/17 11:56> CCU Subjective - Physician Review Subjective (Free Text): Patient seen and examined at bedside. Resting comfortably in bed. Patient altered mental status has improved relative to baseline. Experienced one additional bout of bright red emesis. Denies fever, chills, chest pain, shortness of breath, abdominal pain, diarrhea, constipation, and urinary symptoms. 10/06/17 11:29 CCU Objective - Vital Signs / Intake & Output Vital Signs (Last 4 hours): Vital Signs Temp Pulse Resp BP Pulse Ox 10/06/17 08:16 63 10 L 99/46 L 100 10/06/17 08:14 95.4 F L Intake and Output (Last 8hrs): Intake & Output 10/05/17 10/06/17 10/06/17 22:59 06:59 14:59 Intake Total 0 Balance 0 Intake: IV 0 - Physical Exam Head: Positive for: Atraumatic, Normocephalic Extroacular Muscles: Positive for: EOMI Conjunctiva: Positive for: Normal Mouth: Positive for: Dry, Other (dried blood in mouth) Neck: Positive for: Normal Range of Motion, Other (right central TLC in secure position) Respiratory/Chest: Positive for: Clear to Auscultation, Good Air Exchange. Negative for: Respiratory Distress, Accessory Muscle Use Cardiovascular: Positive for: Normal S1, S2. Negative for: Murmurs Abdomen: Positive for: Normal Bowel Sounds. Negative for: Tenderness, Distention, Peritoneal Signs Back: Positive for: Normal Inspection Upper Extremity: Positive for: Normal Inspection. Negative for: Cyanosis, Edema Lower Extremity: Positive for: Normal Inspection. Negative for: Edema Neurological: Positive for: GCS=15, CN II-XII Intact, Speech Normal, Motor Func Grossly Intact, Normal Sensory Function Skin: Positive for: Warm, Dry, Pale. Negative for: Rashes, Normal Color Psychiatric: Positive for: Alert, Oriented x 3, Normal Insight, Normal Concentration - Medications Active Medications: Active Medications Generic Name Dose Route Start Last Admin Trade Name Freq PRN Reason Stop Dose Admin Albumin Human 12.5 gm 10/06/17 05:45 Albumin Human 25% (12.5 Gm/50 Ml) IV 10/06/17 17:46 Q4H BIBIANA Pantoprazole Sodium 40 mg in 100 mls @ 20 mls/hr 11/16/17 04:45 10/06/17 08: 12 Protonix 40mg Ivpb IVPB 20 mls/hr .Q5H BIBIANA Administration Octreotide Acetate 1,250 mcg/ 252.5 mls @ 5.05 mls/hr 10/06/17 04:45 05:30 Sodium Chloride IV 25 mcg/hr .Q24H BIBIANA 5.05 mls/hr Protocol Administration 25 MCG/HR NOREPINEPHRINE BIT/0.9 % NACL 4 mg in 250 mls @ 15 mls/hr 10/06/17 05:34 06:16 Levophed 4 Mg/ 250 Ml Ns Premixed IV 12 mcg/min .[id number] PRN 45 mls/hr TITRATE PER MD ORDER Titration Protocol 4 MCG/MIN Meropenem 1 gm/ Dextrose 100 mls @ 100 mls/hr 10/06/17 06:56 IVPB 10/14/17 06:57 Q12H BIBIANA Protocol Vancomycin HCl 1 gm in 250 mls @ 167 mls/hr 10/06/17 10:05 Vancomycin 1gm IVPB 10/06/17 11:34 STAT STA Protocol Vasopressin 20 units/ Sodium 101 mls @ 9.09 mls/hr 10/06/17 10:45 Chloride IV .Q11H7M BIBIANA Protocol 0.03 U/MIN Lactulose 200 gm 10/06/17 14:00 Generlac IN Q8 BIBIANA Ondansetron HCl 4 mg 10/06/17 09:38 Zofran Inj IVP Q4H PRN Nausea/Vomiting - Patient Studies Lab Studies: Lab Studies 10/06/17 Range/Units 05:25 Ammonia 234 H* (9-33) umol/L Laboratory Results - last 24 hr 10/06/17 05:25 Ammonia 234 H* EKG/Cardiology Studies: Cardiology / EKG Studies 10/06/17 10:45 EKG [ELECTROCARDIOGRAM] Routine Comment: Reason For Exam: chest pain 10/06/17 16:00 EKG [ELECTROCARDIOGRAM] Routine Comment: Reason For Exam: chest pain Review of Systems - Review of Systems Review of Systems: 12-point review of systems negative except as indicated in the HPI Critical Care Progress Note - Nutrition Nutrition: Nutrition Category Date Time Status NPO Diet [DIET] Diets 11/16/17 Breakfast Ordered Assessment/Plan - Assessment and Plan (Free Text) Assessment: Patient is a 62 year old male with past medical history of TRUJILLO, afib s/p cardioversion, HTN, GERD, CHF who was admitted to the hospital for evaluation and treatment of bright red blood in emesis. Plan: Neuro: Hepatic Encephalopathy - Patient is awake, alert, responds to verbal stimuli, answers questions appropriately, follows commands, and moves extremities past midline - continue to monitor ammonia level and give lactulose Cardio: Hemorrhagic Shock and Component of Septic Shock - HR trended, reviewed, and appreciated, will continue to monitor closely - BPs trended, reviewed, and appreciated, will continue to monitor closely - c/w pressor support keep MAP > 65, titrate down as tolerated - continue to monitor vitals CHF; Afib - hold aspirin plavix and aldactone at this time Pulm: - keep SaO2 above 92% GI: UGIB likely variceal vs PUD; Decompensated cirrhosis MELD 24; Ascities - 2 units of pRBC being transfused, 2 units of FFP and 1 unit of platelets ordered and pending - c/w protonix gtt and c/w octreotide gtt - NPO - GI consulted,- appreciate recommendations- endoscopy today, vitamin K given Ammonia Elevated - c/w lactulose - monitor ammonia Renal/Electrolytes: KEYUR likely due to Intravascular Depletion - s/p 3 L of NS - creatinine and BUN trended, reviewed, and appreciated, will continue to monitor closely - nephrology consulted- appreciate recommendations Endo: - keep patient euglycemic Heme: - Hgbs trended, reviewed, and appreciated, will continue to monitor closely - DVT prophylaxis with SCDs ID SIRs Criteria - c/w voncomycin and meropenem - ID consulted- appreciate recommendations - f/u blood and urine culture Patient seen, case discussed with, and plan approved by attending physician, Dr. Grider. <Evgeny Grider - Last Filed: 10/06/17 12:42> CCU Objective - Vital Signs / Intake & Output Vital Signs (Last 4 hours): Vital Signs Pulse Resp BP Pulse Ox 10/06/17 12:32 73 21 111/59 L 100 Intake and Output (Last 8hrs): Intake & Output 10/05/17 10/06/17 10/06/17 22:59 06:59 14:59 Intake Total 0 Balance 0 Intake: IV 0 - Medications Active Medications: Active Medications Generic Name Dose Route Start Last Admin Trade Name Freq PRN Reason Stop Dose Admin Albumin Human 12.5 gm 10/06/17 05:45 Albumin Human 25% (12.5 Gm/50 Ml) IV 10/06/17 17:46 Q4H BIB[place]NA Pantoprazole Sodium 40 mg in 100 mls @ 20 mls/hr 10/06/17 04:45 10/06/17 08: 12 Protonix 40mg Ivpb IVPB 20 mls/hr .Q5H BIBIANA Administration Octreotide Acetate 1,250 mcg/ 252.5 mls @ 5.05 mls/hr 10/06/17 04:45 05:30 Sodium Chloride IV 25 mcg/hr .Q24H BBIIANA 5.05 mls/hr Protocol Administration 25 MCG/HR NOREPINEPHRINE BIT/0.9 % NACL 4 mg in 250 mls @ 15 mls/hr 10/06/17 05:34 06:16 Levophed 4 Mg/ 250 Ml Ns Premixed IV 12 mcg/min .[id number] PRN 45 mls/hr TITRATE PER MD ORDER Titration Protocol 4 MCG/MIN Meropenem 1 gm/ Dextrose 100 mls @ 100 mls/hr 10/06/17 06:56 IVPB 10/14/17 06:57 Q12H BIBIANA Protocol Vasopressin 20 units/ Sodium 101 mls @ 9.09 mls/hr 10/06/17 10:45 Chloride IV .Q11H7M BIBIANA Protocol 0.03 U/MIN Lactulose 200 gm 10/06/17 14:00 Generlac IN Q8 BIB[place]NA Ondansetron HCl 4 mg 10/06/17 09:38 Zofran Inj IVP Q4H PRN Nausea/Vomiting - Patient Studies Lab Studies: Lab Studies 10/06/17 10/06/17 Range/Units 12:00 05:25 WBC 11.9 H (4.5-11.0) 10^3/ul RBC 2.63 L (3.5-6.1) 10^6/uL Hgb 8.1 L (14.0-18.0) g/dL Hct 24.7 L (42.0-52.0) % MCV 93.9 D (80.0-105.0) fl MCH 30.8 (25.0-35.0) pg MCHC 32.8 (31.0-37.0) g/dl RDW 19.6 H (11.5-14.5) % Plt Count 141 (120.0-450.0) 10^3/uL MPV 9.4 (7.0-11.0) fl Gran % 82.6 H (50.0-68.0) % Lymph % (Auto) 9.3 L (22.0-35.0) % [place] % (Auto) 7.8 H (1.0-6.0) % Eos % (Auto) 0.1 L (1.5-5.0) % Baso % (Auto) 0.2 (0.0-3.0) % Gran # 9.81 H (1.4-6.5) Lymph # 1.1 L (1.2-3.4) [place] # 0.9 H (0.1-0.6) Eos # 0.0 (0.0-0.7) Baso # 0.02 (0.0-2.0) K/mm3 Ammonia 234 H* (9-33) umol/L Laboratory Results - last 24 hr 10/06/17 10/06/17 05:25 12:00 WBC 11.9 H RBC 2.63 L Hgb 8.1 L Hct 24.7 L MCV 93.9 D MCH 30.8 MCHC 32.8 RDW 19.6 H Plt Count 141 MPV 9.4 Gran % 82.6 H Lymph % (Auto) 9.3 L [place] % (Auto) 7.8 H Eos % (Auto) 0.1 L Baso % (Auto) 0.2 Gran # 9.81 H Lymph # 1.1 L [place] # 0.9 H Eos # 0.0 Baso # 0.02 Ammonia 234 H* EKG/Cardiology Studies: Cardiology / EKG Studies 10/06/17 10:45 EKG [ELECTROCARDIOGRAM] Routine Comment: Reason For Exam: chest pain 10/06/17 16:00 EKG [ELECTROCARDIOGRAM] Routine Comment: Reason For Exam: chest pain Critical Care Progress Note - Nutrition Nutrition: Nutrition Category Date Time Status NPO Diet [DIET] Diets 10/06/17 Breakfast Ordered Assessment/Plan - Assessment and Plan (Free Text) Plan: Patient seen and examined, agree with note with following additions/exceptions: Patient is a 62 year old male with past medical history of TRUJILLO, afib s/p cardioversion, HTN, GERD, CHF who was admitted to the hospital for evaluation and treatment of bright red blood in emesis, anemia, septic shock, hemorrhagic shock. Pt is currently awake, alert, NAD, on Levophed 5mcg/min, lactate 4.7. Patient received 2u PRBC, to receive 2u FFP, and 1u platelets. Pt underoing EGD right now. GIB Septic/hemorrhagic Shock TRUJILLO Anemia Recommend - supp o2 as needed, monitor resp status - antibiotics as per ID - hold BP meds - transfuse 2u prbc, 2u FFP, 1u platelets - serial CBC - PPI, Octreotide - follow up GI - SCDs - FS control
[2017-10-06 12:16] LABS: VENOUS BLOOD GAS BASE EXCESS -11.3 mmol/L (0.0-2.0); VENOUS BLOOD PH 7.25 (7.32-7.43)
[2017-10-06 12:18] LABS: BASO # 0.02 K/mm3 (0.0-2.0); BASO % 0.2 % (0.0-3.0); EOS % 0.1 % (1.5-5.0); GRAN # 9.81 (1.4-6.5); GRAN % 82.6 % (50.0-68.0); HEMATOCRIT 24.7 % (42.0-52.0); LYMPH # 1.1 (1.2-3.4); LYMPH % 9.3 % (22.0-35.0); MEAN CELL VOLUME 93.9 fl (80.0-105.0); MEAN CORPUSCULAR HEMOGLOBIN 30.8 pg (25.0-35.0); MEAN CORPUSCULAR HGB CONC 32.8 g/dl (31.0-37.0); MEAN PLATELET VOLUME 9.4 fl (7.0-11.0); MONO # 0.9 (0.1-0.6); MONO % 7.8 % (1.0-6.0); RED CELL DISTRIBUTION WIDTH 19.6 % (11.5-14.5); WHITE BLOOD COUNT 11.9 10^3/ul (4.5-11.0)
[2017-10-06] MEDS ORDERED: Midazolam 2 MG/2 ML VIAL ONE (12:34)
[2017-10-06] MEDS ORDERED: Lidocaine 2% Inj (20ml) ONE (13:00)
[2017-10-06] MEDS ORDERED: Etomidate 20 mg/10ml Inj IV ONE (13:00)
[2017-10-06] MEDS: Lactulose 10 gm/15 ml (Rectal Use) PR SCH ×2 (15:00→22:07)
--- NOTE | 2017-10-06 15:28 | CP.PCM.CON ---
History of Present Illness - History of Present Illness History of Present Illness: Palliative consult requested by Dr Dixon copied to Dr Tiago Rosales Reason: Goals of care 62 year old male with history of TRUJILLO, A fib and CHF presented to ED after several episodes of hematemisis. Labs indicate anemia, leukocytosis and KEYUR. Denied fever, chills, chest pain, shortness of breath, headache. Chest x ray normal. CT of Ab/Pel showed large amount of abdominal ascites,borderline spleenomegaly,fatty pancreatic atrophy, nodular hepatic contour and right inguinal hernia PMHX: TRUJILLO, GERD, A Fib s/p cardioversion, CHF,ascites,hepatic encephalopathy. Social History: Former smoker, denies alcohol or drug use.Resides with life partner. Family History: Mother -[place], Father- [place]. Advance Care Planning: The patient has an Advanced Directive, a copy is in the chart. His partner, Nuno Flores is POA. Review of Systems: As per HPI, otherwise negative review of systems. Past Patient History - Past Social History Smoking Status: Former Smoker - CARDIAC Hx Cardiac Disorders: Yes Hx Hypertension: Yes - PULMONARY Hx Respiratory Disorders: Yes (SMOKED CIGARETTES,QUIT SMOKING.PPDQUIT 1.5 YR AGO ) Hx Pneumonia: Yes (09-02-17) - NEUROLOGICAL Hx Neurological Disorder: No - HEENT Hx HEENT Problems: No - RENAL Hx Chronic Kidney Disease: No - ENDOCRINE/METABOLIC Hx Endocrine Disorders: No - HEMATOLOGICAL/ONCOLOGICAL Hx Blood Disorders: Yes Hx Cirrhosis: Yes (PARACENTESIS) - INTEGUMENTARY Hx Dermatological Problems: No - MUSCULOSKELETAL/RHEUMATOLOGICAL Hx Musculoskeletal Disorders: Yes Hx Falls: Yes Hx Unsteady Gait: Yes - GASTROINTESTINAL Hx Gastrointestinal Disorders: Yes (N0N ALCOHOLIC LIVER CIRRHOSIS,H/O GI BLEED, INGUINAL HERNIA REPAIR) Hx Gastroesophageal Reflux: Yes - GENITOURINARY/GYNECOLOGICAL Hx Genitourinary Disorders: No - PSYCHIATRIC Hx Psychophysiologic Disorder: No Hx Substance Use: No - SURGICAL HISTORY Hx Coronary Stent: Yes (09-05-17) - ANESTHESIA Hx Anesthesia Reactions: No Hx Malignant Hyperthermia: No Meds Allergies/Adverse Reactions: Allergies Allergy/AdvReac Type Severity Reaction Status Date / Time Beef Containing Products Allergy Severe ANAPHYLAXIS Verified 10/06/17 13:44 beef derived (bovine) Allergy Severe ANAPHYLAXIS Verified 10/06/17 13:44 banana Allergy Intermediate ITCHING Verified 10/06/17 13:44 - Medications Medications: Current Medications Albumin Human (Albumin Human 25% (12.5 Gm/50 Ml)) 12.5 gm IV Q4H BIBIANA Stop: 10/06/17 17:46 Aspirin (Ecotrin) 81 mg PO DAILY BIBIANA Pantoprazole Sodium (Protonix 40mg Ivpb) 40 mg in 100 mls @ 20 mls/hr IVPB .Q5H BIBIANA Last Admin: 10/06/17 08:12 Dose: 20 mls/hr Octreotide Acetate 1,250 mcg/ (Sodium Chloride) 252.5 mls @ 5.05 mls/hr IV .Q24H BIBIANA; 25 MCG/HR PRN Reason: Protocol Last Admin: 10/06/17 05:30 Dose: 25 mcg/hr, 5.05 mls/hr NOREPINEPHRINE BIT/0.9 % NACL (Levophed 4 Mg/ 250 Ml Ns Premixed) 4 mg in 250 mls @ 15 mls/hr IV .[id number] PRN; Protocol; 4 MCG/MIN PRN Reason: TITRATE PER MD ORDER Last Titration: 10/06/17 06:16 Dose: 12 mcg/min, 45 mls/hr Meropenem 1 gm/ Dextrose 100 mls @ 100 mls/hr IVPB Q12H BIBIANA PRN Reason: Protocol Stop: 10/14/17 06:57 Vasopressin 20 units/ Sodium (Chloride) 101 mls @ 9.09 mls/hr IV .Q11H7M BIBIANA; 0.03 U/MIN PRN Reason: Protocol Lactulose (Generlac) 200 gm MA Q8 BIBIANA Ondansetron HCl (Zofran Inj) 4 mg IVP Q4H PRN PRN Reason: Nausea/Vomiting Physical Exam - Constitutional Appears: Cachectic, Chronically Ill - Head Exam Head Exam: NORMAL INSPECTION - Eye Exam Eye Exam: Normal appearance, PERRL - ENT Exam ENT Exam: Mucous Membranes Moist - Neck Exam Neck exam: Positive for: Normal Inspection - Respiratory Exam Respiratory Exam: Decreased Breath Sounds, NORMAL BREATHING PATTERN - Cardiovascular Exam Cardiovascular Exam: Irregular Rhythm, +S1 - GI/Abdominal Exam GI & Abdominal Exam: Distended, Normal Bowel Sounds, Soft - Extremities Exam Extremities exam: Positive for: pedal edema, pedal pulses present - Back Exam Back exam: NORMAL INSPECTION - Neurological Exam Neurological exam: Alert, Oriented x3 - Skin Skin Exam: Dry, Pallor - Additional Findings Additional findings: Palliative performance scale rating 50% Results - Vital Signs Recent Vital Signs: Last Vital Signs Temp 95.4 F L 10/06/17 08:14 Pulse 73 10/06/17 12:32 Resp 21 10/06/17 12:32 BP 111/59 L 10/06/17 12:32 Pulse Ox 100 10/06/17 12:32 - Labs Result Diagrams: 10/06/17 12:00 10/06/17 04:45 Labs: Laboratory Results - last 24 hr 10/06/17 10/06/17 10/06/17 05:25 12:00 12:00 WBC 11.9 H RBC 2.63 L Hgb 8.1 L Hct 24.7 L MCV 93.9 D MCH 30.8 MCHC 32.8 RDW 19.6 H Plt Count 141 MPV 9.4 Gran % 82.6 H Lymph % (Auto) 9.3 L [place] % (Auto) 7.8 H Eos % (Auto) 0.1 L Baso % (Auto) 0.2 Gran # 9.81 H Lymph # 1.1 L [place] # 0.9 H Eos # 0.0 Baso # 0.02 pO2 VBG pH VBG pCO2 VBG HCO3 VBG Total CO2 VBG O2 Sat (Calc) VBG Base Excess VBG Potassium Sodium Chloride Glucose Lactate FiO2 Ammonia 234 H* Troponin I 0.02 Venous Blood Potassium 10/06/17 12:00 WBC RBC Hgb Hct MCV MCH MCHC RDW Plt Count MPV Gran % Lymph % (Auto) [place] % (Auto) Eos % (Auto) Baso % (Auto) Gran # Lymph # [place] # Eos # Baso # pO2 134 H VBG pH 7.25 L VBG pCO2 34.0 L VBG HCO3 14.9 L VBG Total CO2 15.9 L VBG O2 Sat (Calc) 100.1 H VBG Base Excess -11.3 L VBG Potassium 5.2 Sodium 136.0 Chloride 112.0 H Glucose 150 H Lactate 4.7 H* FiO2 21.0 Ammonia Troponin I Venous Blood Potassium 5.2 Assessment & Plan - Assessment and Plan (Free Text) Assessment: 62 year old male with history of TRUJILLO,CAD, CHF and A Fib who was admitted with hematemesis,esophageal varices, anemia, KEYUR and SIRS. The patient is just returning from banding procedure of his varices. He is lethargic and groggy. He is unable to discuss goals of care at this time. The patient has an Advance Directive, a copy is on the chart. He specifies that he does not want life prolonging measures if his condition is irreversible or incurable,further clarifying that meaning that to be 6 months or less life expectancy. His health care surrogate is his partner, Nuno Flores. The patient's surrogate is not at bedside during my visit. Plan: Palliative support in establishing future goals of care
[2017-10-06] MEDS: Albumin Human 25% (12.5 gm/50 ml) IV SCH ×4 (15:56→22:00)
[2017-10-06 16:49] LABS: VENOUS BLOOD GAS BASE EXCESS -6.9 mmol/L (0.0-2.0); VENOUS BLOOD PH 7.32 (7.32-7.43)
[2017-10-06 16:53] LABS: BASO # 0.01 K/mm3 (0.0-2.0); BASO % 0.1 % (0.0-3.0); GRAN # 6.51 (1.4-6.5); GRAN % 79.2 % (50.0-68.0); LYMPH # 0.9 (1.2-3.4); LYMPH % 10.6 % (22.0-35.0); MEAN CELL VOLUME 90.9 fl (80.0-105.0); MEAN CORPUSCULAR HEMOGLOBIN 30.8 pg (25.0-35.0); MEAN CORPUSCULAR HGB CONC 33.9 g/dl (31.0-37.0); MEAN PLATELET VOLUME 9.4 fl (7.0-11.0); MONO # 0.8 (0.1-0.6); MONO % 10.1 % (1.0-6.0); RED CELL DISTRIBUTION WIDTH 21.1 % (11.5-14.5); WHITE BLOOD COUNT 8.2 10^3/ul (4.5-11.0)
[2017-10-06 16:56] LABS: HEMATOCRIT 18.9 % (42.0-52.0)
--- NOTE | 2017-10-06 21:46 | CARD ---
APPROVED REPORT EKG Measurement Heart [id number] RI [id number] <Conclusion> Normal sinus rhythm Low voltage QRS Prolonged QT Abnormal ECG
--- NOTE | 2017-10-06 21:54 | CARD ---
APPROVED REPORT EKG Measurement Heart [id number] MI [id number] <Conclusion> Normal sinus rhythm Low voltage QRS Borderline ECG
--- NOTE | 2017-10-06 22:05 | CARD ---
APPROVED REPORT EKG Measurement Heart [id number] MN 186P68 [id number] <Conclusion> Normal sinus rhythm Prolonged QT Abnormal ECG
--- NOTE | 2017-10-06 22:06 | CARD ---
APPROVED REPORT EKG Measurement Heart [id number] PA 182P79 [id number] <Conclusion> Sinus rhythm with premature atrial complexes with aberrant conduction Otherwise normal ECG
[2017-10-06] MEDS: Meropenem 1 GM in Dextrose 5% In Water 100 ML IVPB SCH (22:30)
[2017-10-07 01:06] LABS: BASO # 0.02 K/mm3 (0.0-2.0); BASO % 0.2 % (0.0-3.0); EOS # 0.1 (0.0-0.7); EOS % 0.5 % (1.5-5.0); GRAN # 9.84 (1.4-6.5); GRAN % 80.4 % (50.0-68.0); LYMPH # 1.2 (1.2-3.4); LYMPH % 9.9 % (22.0-35.0); MEAN CELL VOLUME 89.2 fl (80.0-105.0); MEAN CORPUSCULAR HEMOGLOBIN 31.5 pg (25.0-35.0); MEAN CORPUSCULAR HGB CONC 35.3 g/dl (31.0-37.0); MEAN PLATELET VOLUME 8.4 fl (7.0-11.0); MONO # 1.1 (0.1-0.6); RED CELL DISTRIBUTION WIDTH 19.6 % (11.5-14.5); WHITE BLOOD COUNT 12.2 10^3/ul (4.5-11.0)
[2017-10-07 01:18] LABS: HEMATOCRIT 23.2 % (42.0-52.0)
[2017-10-07] MEDS: Pantoprazole 40mg/100ml IVPB 40 MG/100 ML BAG IVPB SCH (01:45)
--- NOTE | 2017-10-07 02:40 | CON ---
DATE: 10/06/2017 REASON FOR CONSULTATION: Acute kidney injury, circulatory shock, hypotension, GI bleed. HISTORY OF PRESENT ILLNESS: A 62-year-old male previously unknown to me, was brought to the emergency room because of multiple episodes of hematemesis at home. As per the history obtained in the emergency room, the patient had several episodes of vomiting with blood at around 03:30 a.m. He reportedly vomited about 100 to 200 mL of blood. Also, the patient complained of shortness of breath, abdominal pain. He deny any fever or chills. He recently had paracentesis done 2 days prior. In the emergency room, he was found to be profoundly hypotensive. Blood pressure was as low as 54/25. He was found to be lethargic. His hemoglobin was found to be 7.3. Also, he was found to have acute kidney injury with a creatinine of 2.1. Baseline creatinine was 1.3. Hence consultation is requested. The patient is currently seen in the ICU. He is arousable. He denies any abdominal pain at present. He denies any chest tightness. He denies any nausea or vomiting. PAST MEDICAL AND SURGICAL HISTORY: TRUJILLO, Afib, status post cardioversion, hypertension, GERD, CHF, ascites, inguinal hernia repair, recent paracentesis of 7 liters of peritoneal fluid. FAMILY HISTORY: Hypertension and heart disease in mother, CAD in father. SOCIAL HISTORY: Ex-smoker, quit about year and a half ago. No alcohol, no IV drug abuse. ALLERGIES: BEEF, BANANA. MEDICATIONS AT HOME: Aspirin 81, Lasix 40 daily, Aldactone 100 daily, Protonix 40 and Corgard 20. REVIEW OF SYSTEMS: All systems are reviewed, pertinent positives as mentioned in history of presenting illness, rest unremarkable. PHYSICAL EXAMINATION GENERAL: Thinly built, cachectic-appearing elderly male lying in bed in the ICU. VITAL SIGNS: Blood pressure 111/59, heart rate 73, respiratory rate 21 and temperature 95.9. HEENT: Normocephalic, atraumatic, positive pallor. NECK: Supple, no JVD. LUNGS: Bilateral equal air entry, decreased breath sounds at bases, no rales. CARDIAC: S1, S2, regular rate and rhythm, no murmur, no rub. ABDOMEN: Obese, distended, soft, dressing in the right lateral aspect, bowel sounds present. EXTREMITIES: No lower extremity edema, chronic stasis changes. INTAKE AND OUTPUT: Not charted. LABORATORY DATA: WBC 11.9, hemoglobin 8, hematocrit 25 and platelets 141. Sodium 133, potassium 4.6, chloride 104, CO2 of 19, BUN 32, creatinine 2.1, glucose 250, calcium 8.1, total bili 1.8, AST 47, ALT 34, ammonia 234, albumin 2.6 and corrected calcium is 9.1. Endoscopy showed a large varices with low bleeding in the upper third of the esophagus, in the middle third and in the lower third. Stigmata of recent bleeding was seen. Large amount of blood was seen in the gastric fundus. No evidence of gastric ulcers. Moderate portal hypertension. Old blood was seen in the second part of the duodenum. CURRENT MEDICATIONS: Albumin 12.5 g q.4, aspirin, Generlac, Levophed, meropenem 1 g q.12, octreotide infusion, Protonix, vasopressin and Zofran. ASSESSMENT: 1. Acute kidney injury in the setting of gastrointestinal bleed, hypotension, circulatory collapse plus recent large-volume paracentesis. 2. Severe anemia secondary to gastrointestinal bleed. 3. History of nonalcoholic steatohepatitis, esophageal varices. 4. Congestive heart failure. 5. Atrial fibrillation, status post cardioversion. 6. ATN secondary to hypotension, hypoperfusion PLAN: 1. Continue pressor support, keep systolic blood pressure greater than 90. 2. Transfuse to hemoglobin of 9. 3. Agree with albumin infusion. 4. Avoid nephrotoxins. 5. Check urine sodium and urine creatinine. 6. Agree with empiric antibiotics. 7. Expect creatinine to worsen before it gets better. 8. Case discussed with ICU nurses at length. 9. Case discussed with Dr. Rosales. More than 35 minutes spent in the care of this critically ill patient. Jami Resendiz MD [facility]
[2017-10-07 05:59] LABS: BASO # 0.03 K/mm3 (0.0-2.0); BASO % 0.2 % (0.0-3.0); EOS # 0.1 (0.0-0.7); EOS % 0.9 % (1.5-5.0); GRAN # 9.76 (1.4-6.5); GRAN % 79.9 % (50.0-68.0); HEMATOCRIT 24.1 % (42.0-52.0); LYMPH # 1.3 (1.2-3.4); LYMPH % 10.7 % (22.0-35.0); MEAN CELL VOLUME 89.3 fl (80.0-105.0); MEAN CORPUSCULAR HEMOGLOBIN 31.9 pg (25.0-35.0); MEAN CORPUSCULAR HGB CONC 35.7 g/dl (31.0-37.0); MEAN PLATELET VOLUME 8.9 fl (7.0-11.0); MONO % 8.3 % (1.0-6.0); WHITE BLOOD COUNT 12.2 10^3/ul (4.5-11.0)
[2017-10-07] MEDS: Lactulose 10 gm/15 ml (Rectal Use) PR SCH (06:10)
[2017-10-07 06:50] LABS: BILIRUBIN,TOTAL 4.9 mg/dL (0.2-1.3); CALCIUM 8.2 mg/dL (8.4-10.5); MAGNESIUM 1.8 mg/dL (1.7-2.2); PHOSPHOROUS 2.9 mg/dL (2.5-4.5); POTASSIUM 4.5 mmol/L (3.6-5.0); TOTAL PROTEIN 6.2 g/dL (5.8-8.3)
--- NOTE | 2017-10-07 07:12 | CP.CCUPN ---
<Steven Dixon - Last Filed: 10/07/17 09:57> CCU Subjective - Physician Review Subjective (Free Text): Patient seen and examined at bedside. Resting comfortably in bed. Experienced three additional bouts of dark maroon colored stools overnight. Given a total of 4pRBCs, 2 FFPs, and 1 unit of platelets. Denies fever, chills, chest pain, shortness of breath, abdominal pain, constipation, and urinary symptoms. 10/07/17 07:08 CCU Objective - Vital Signs / Intake & Output Vital Signs (Last 4 hours): Vital Signs Temp Pulse Resp BP Pulse Ox 10/07/17 06:30 93 H 21 121/69 97 10/07/17 06:20 95 H 20 98 10/07/17 06:15 99 H 27 H 120/68 90 L 10/07/17 06:10 96 H 25 H 98 10/07/17 06:00 98 H 21 126/51 L 95 10/07/17 05:50 98 H 23 97 10/07/17 05:45 99 H 19 126/70 93 L 10/07/17 05:40 98 H 21 94 L 10/07/17 05:30 97 H 19 134/66 91 L 10/07/17 05:20 95 H 19 96 10/07/17 05:15 96 H 20 124/70 91 L 10/07/17 05:10 95 H 20 95 10/07/17 05:00 96 H 20 124/65 94 L 10/07/17 04:50 96 H 19 96 10/07/17 04:45 96 H 19 128/66 95 10/07/17 04:40 95 H 18 96 10/07/17 04:30 95 H 19 123/69 96 10/07/17 04:20 95 H 18 96 10/07/17 04:15 95 H 19 125/72 96 10/07/17 04:10 94 H 19 96 10/07/17 04:00 99.5 F 97 H 19 125/68 94 L 10/07/17 03:50 95 H 19 96 10/07/17 03:45 95 H 17 136/73 97 10/07/17 03:40 95 H 18 96 10/07/17 03:30 98 H 19 138/67 95 10/07/17 03:20 95 H 19 96 10/07/17 03:15 130/73 10/07/17 03:14 95 H 19 97 10/07/17 03:10 95 H 18 98 Intake and Output (Last 8hrs): Intake & Output 10/06/17 10/07/17 10/07/17 22:59 06:59 14:59 Intake Total 4831 1714.5 Output Total 695 750 Balance 4136 964.5 Weight 155 lb Intake: IV 3206 1714.5 Right Internal Jugular 3206 1262 Blood Product 1475 Albumin 150 Output: Urine 375 750 2-way Urethral 375 750 Emesis 320 Other: Voiding Method Urinal # Bowel Movements 3 - Physical Exam Head: Positive for: Atraumatic, Normocephalic Pupils: Positive for: PERRL Extroacular Muscles: Positive for: EOMI Conjunctiva: Positive for: Normal Mouth: Positive for: Dry Neck: Positive for: Normal Range of Motion, Other (right central TLC in secure position) Respiratory/Chest: Positive for: Clear to Auscultation, Good Air Exchange. Negative for: Respiratory Distress, Accessory Muscle Use Cardiovascular: Positive for: Normal S1, S2. Negative for: Murmurs Abdomen: Positive for: Normal Bowel Sounds. Negative for: Tenderness, Distention, Peritoneal Signs Back: Positive for: Normal Inspection Upper Extremity: Positive for: Normal Inspection. Negative for: Cyanosis, Edema Lower Extremity: Positive for: Normal Inspection. Negative for: Edema Neurological: Positive for: CN II-XII Intact Skin: Positive for: Warm, Dry, Pale. Negative for: Rashes, Normal Color Psychiatric: Positive for: Alert, Oriented x 3 - Medications Active Medications: Active Medications Generic Name Dose Route Start Last Admin Trade Name Freq PRN Reason Stop Dose Admin Aspirin 81 mg 10/06/17 15:15 10/06/17 15:40 Ecotrin PO Not Given DAILY BIBIANA Pantoprazole Sodium 40 mg in 100 mls @ 20 mls/hr 10/06/17 04:45 10/07/17 01: 45 Protonix 40mg Ivpb IVPB 20 mls/hr .Q5H BIBIANA Administration Octreotide Acetate 1,250 mcg/ 252.5 mls @ 5.05 mls/hr 10/06/17 04:45 05:30 Sodium Chloride IV 50 mcg/hr .Q24H BIBIANA 10.1 mls/hr Protocol Administration 25 MCG/HR NOREPINEPHRINE BIT/0.9 % NACL 4 mg in 250 mls @ 15 mls/hr 10/06/17 05:34 23:49 Levophed 4 Mg/ 250 Ml Ns Premixed IV 5 mcg/min .[id number] PRN 18.75 mls/hr TITRATE PER MD ORDER Administration Protocol 4 MCG/MIN Vasopressin 20 units/ Sodium 101 mls @ 9.09 mls/hr 10/06/17 10:45 10/06/17 15 :41 Chloride IV Not Given .[id number] BIBIANA Protocol 0.03 U/MIN Meropenem 1 gm/ Dextrose 100 mls @ 100 mls/hr 10/06/17 16:06 10/06/17 22:30 IVPB 100 mls/hr Q12 BIBIANA Administration Protocol Lactulose 200 gm 10/06/17 14:00 10/07/17 06:10 Generlac DE Not Given Q8 BIBIANA Ondansetron HCl 4 mg 10/06/17 09:38 10/06/17 09:50 Zofran Inj IVP 4 mg Q4H PRN Administration Nausea/Vomiting - Patient Studies Lab Studies: Lab Studies 10/07/17 10/07/17 10/07/17 Range/Units 05:30 05:30 05:30 WBC 12.2 H (4.5-11.0) 10^3/ul RBC 2.70 L (3.5-6.1) 10^6/uL Hgb 8.6 L (14.0-18.0) g/dL Hct 24.1 L (42.0-52.0) % MCV 89.3 (80.0-105.0) fl MCH 31.9 (25.0-35.0) pg MCHC 35.7 (31.0-37.0) g/dl RDW 20.0 H (11.5-14.5) % Plt Count 90 L (120.0-450.0) 10^3/uL MPV 8.9 (7.0-11.0) fl Gran % 79.9 H (50.0-68.0) % Lymph % (Auto) 10.7 L (22.0-35.0) % Brewster % (Auto) 8.3 H (1.0-6.0) % Eos % (Auto) 0.9 L (1.5-5.0) % Baso % (Auto) 0.2 (0.0-3.0) % Gran # 9.76 H (1.4-6.5) Lymph # 1.3 (1.2-3.4) Brewster # 1.0 H (0.1-0.6) Eos # 0.1 (0.0-0.7) Baso # 0.03 (0.0-2.0) K/mm3 pO2 (30-55) mm/Hg VBG pH (7.32-7.43) VBG pCO2 (40-60) VBG HCO3 (21-28) mmol/l VBG Total CO2 (22-28) mmol.L VBG O2 Sat (Calc) (40-65) % VBG Base Excess (0.0-2.0) mmol/L VBG Potassium (3.6-5.2) mmol/L Sodium 144 (132-148) mmol/L Chloride 115 H (98-107) mmol/L Glucose (75-110) mg/dl Lactate (0.7-2.1) mmol/L FiO2 % Potassium 4.5 (3.6-5.0) mmol/L Carbon Dioxide 20 L (21-33) mmol/L Anion Gap 13 (10-20) BUN 36 H (7-21) mg/dL Creatinine 1.6 H (0.8-1.5) mg/dl Est GFR ( Amer) 53 Est GFR (Non-Af Amer) 44 Random Glucose 109 (70-110) mg/dL Calcium 8.2 L (8.4-10.5) mg/dL Phosphorus 2.9 (2.5-4.5) mg/dL Magnesium 1.8 (1.7-2.2) mg/dL Total Bilirubin 4.9 H (0.2-1.3) mg/dL AST 177 H D (17-59) U/L ALT 96 H (7-56) U/L Alkaline Phosphatase 97 (38-126) U/L Ammonia 96.5 H (9-33) umol/L Troponin I ng/mL Total Protein 6.2 (5.8-8.3) g/dL Albumin 3.0 (3.0-4.8) g/dL Globulin 3.2 gm/dL Albumin/Globulin Ratio 1.0 L (1.1-1.8) Procalcitonin (0.19-0.49) NG/ML Venous Blood Potassium (3.6-5.2) mmol/L 10/07/17 10/06/17 10/06/17 Range/Units 01:00 16:45 16:45 WBC 12.2 H D 8.2 D (4.5-11.0) 10^3/ul RBC 2.60 L 2.08 L (3.5-6.1) 10^6/uL Hgb 8.2 L 6.4 L* (14.0-18.0) g/dL Hct 23.2 L 18.9 L* (42.0-52.0) % MCV 89.2 90.9 D (80.0-105.0) fl MCH 31.5 30.8 (25.0-35.0) pg MCHC 35.3 33.9 (31.0-37.0) g/dl RDW 19.6 H 21.1 H (11.5-14.5) % Plt Count 76 L 82 L (120.0-450.0) 10^3/uL MPV 8.4 9.4 (7.0-11.0) fl Gran % 80.4 H 79.2 H (50.0-68.0) % Lymph % (Auto) 9.9 L 10.6 L (22.0-35.0) % Brewster % (Auto) 9.0 H 10.1 H (1.0-6.0) % Eos % (Auto) 0.5 L 0.0 L (1.5-5.0) % Baso % (Auto) 0.2 0.1 (0.0-3.0) % Gran # 9.84 H 6.51 H (1.4-6.5) Lymph # 1.2 0.9 L (1.2-3.4) Brewster # 1.1 H 0.8 H (0.1-0.6) Eos # 0.1 0.0 (0.0-0.7) Baso # 0.02 0.01 (0.0-2.0) K/mm3 pO2 163 H (30-55) mm/Hg VBG pH 7.32 (7.32-7.43) VBG pCO2 36.0 L (40-60) VBG HCO3 18.5 L (21-28) mmol/l VBG Total CO2 19.6 L (22-28) mmol.L VBG O2 Sat (Calc) 100.5 H (40-65) % VBG Base Excess -6.9 L (0.0-2.0) mmol/L VBG Potassium 4.9 (3.6-5.2) mmol/L Sodium 139.0 (132-148) mmol/L Chloride 116.0 H (98-107) mmol/L Glucose 117 H (75-110) mg/dl Lactate 2.7 H (0.7-2.1) mmol/L FiO2 21.0 % Potassium (3.6-5.0) mmol/L Carbon Dioxide (21-33) mmol/L Anion Gap (10-20) BUN (7-21) mg/dL Creatinine (0.8-1.5) mg/dl Est GFR ( Amer) Est GFR (Non-Af Amer) Random Glucose (70-110) mg/dL Calcium (8.4-10.5) mg/dL Phosphorus (2.5-4.5) mg/dL Magnesium (1.7-2.2) mg/dL Total Bilirubin (0.2-1.3) mg/dL AST (17-59) U/L ALT (7-56) U/L Alkaline Phosphatase (38-126) U/L Ammonia (9-33) umol/L Troponin I ng/mL Total Protein (5.8-8.3) g/dL Albumin (3.0-4.8) g/dL Globulin gm/dL Albumin/Globulin Ratio (1.1-1.8) Procalcitonin (0.19-0.49) NG/ML Venous Blood Potassium 4.9 (3.6-5.2) mmol/L 10/06/17 10/06/17 10/06/17 Range/Units 16:45 12:00 12:00 WBC 11.9 H (4.5-11.0) 10^3/ul RBC 2.63 L (3.5-6.1) 10^6/uL Hgb 8.1 L (14.0-18.0) g/dL Hct 24.7 L (42.0-52.0) % MCV 93.9 D (80.0-105.0) fl MCH 30.8 (25.0-35.0) pg MCHC 32.8 (31.0-37.0) g/dl RDW 19.6 H (11.5-14.5) % Plt Count 141 (120.0-450.0) 10^3/uL MPV 9.4 (7.0-11.0) fl Gran % 82.6 H (50.0-68.0) % Lymph % (Auto) 9.3 L (22.0-35.0) % Brewster % (Auto) 7.8 H (1.0-6.0) % Eos % (Auto) 0.1 L (1.5-5.0) % Baso % (Auto) 0.2 (0.0-3.0) % Gran # 9.81 H (1.4-6.5) Lymph # 1.1 L (1.2-3.4) Brewster # 0.9 H (0.1-0.6) Eos # 0.0 (0.0-0.7) Baso # 0.02 (0.0-2.0) K/mm3 pO2 134 H (30-55) mm/Hg VBG pH 7.25 L (7.32-7.43) VBG pCO2 34.0 L (40-60) VBG HCO3 14.9 L (21-28) mmol/l VBG Total CO2 15.9 L (22-28) mmol.L VBG O2 Sat (Calc) 100.1 H (40-65) % VBG Base Excess -11.3 L (0.0-2.0) mmol/L VBG Potassium 5.2 (3.6-5.2) mmol/L Sodium 136.0 (132-148) mmol/L Chloride 112.0 H (98-107) mmol/L Glucose 150 H (75-110) mg/dl Lactate 4.7 H* (0.7-2.1) mmol/L FiO2 21.0 % Potassium (3.6-5.0) mmol/L Carbon Dioxide (21-33) mmol/L Anion Gap (10-20) BUN (7-21) mg/dL Creatinine (0.8-1.5) mg/dl Est GFR ( Amer) Est GFR (Non-Af Amer) Random Glucose (70-110) mg/dL Calcium (8.4-10.5) mg/dL Phosphorus (2.5-4.5) mg/dL Magnesium (1.7-2.2) mg/dL Total Bilirubin (0.2-1.3) mg/dL AST (17-59) U/L ALT (7-56) U/L Alkaline Phosphatase (38-126) U/L Ammonia (9-33) umol/L Troponin I 0.02 ng/mL Total Protein (5.8-8.3) g/dL Albumin (3.0-4.8) g/dL Globulin gm/dL Albumin/Globulin Ratio (1.1-1.8) Procalcitonin (0.19-0.49) NG/ML Venous Blood Potassium 5.2 (3.6-5.2) mmol/L 10/06/17 10/06/17 Range/Units 12:00 12:00 WBC (4.5-11.0) 10^3/ul RBC (3.5-6.1) 10^6/uL Hgb (14.0-18.0) g/dL Hct (42.0-52.0) % MCV (80.0-105.0) fl MCH (25.0-35.0) pg MCHC (31.0-37.0) g/dl RDW (11.5-14.5) % Plt Count (120.0-450.0) 10^3/uL MPV (7.0-11.0) fl Gran % (50.0-68.0) % Lymph % (Auto) (22.0-35.0) % Brewster % (Auto) (1.0-6.0) % Eos % (Auto) (1.5-5.0) % Baso % (Auto) (0.0-3.0) % Gran # (1.4-6.5) Lymph # (1.2-3.4) Brewster # (0.1-0.6) Eos # (0.0-0.7) Baso # (0.0-2.0) K/mm3 pO2 (30-55) mm/Hg VBG pH (7.32-7.43) VBG pCO2 (40-60) VBG HCO3 (21-28) mmol/l VBG Total CO2 (22-28) mmol.L VBG O2 Sat (Calc) (40-65) % VBG Base Excess (0.0-2.0) mmol/L VBG Potassium (3.6-5.2) mmol/L Sodium (132-148) mmol/L Chloride (98-107) mmol/L Glucose (75-110) mg/dl Lactate (0.7-2.1) mmol/L FiO2 % Potassium (3.6-5.0) mmol/L Carbon Dioxide (21-33) mmol/L Anion Gap (10-20) BUN (7-21) mg/dL Creatinine (0.8-1.5) mg/dl Est GFR ( Amer) Est GFR (Non-Af Amer) Random Glucose (70-110) mg/dL Calcium (8.4-10.5) mg/dL Phosphorus (2.5-4.5) mg/dL Magnesium (1.7-2.2) mg/dL Total Bilirubin (0.2-1.3) mg/dL AST (17-59) U/L ALT (7-56) U/L Alkaline Phosphatase (38-126) U/L Ammonia (9-33) umol/L Troponin I 0.02 ng/mL Total Protein (5.8-8.3) g/dL Albumin (3.0-4.8) g/dL Globulin gm/dL Albumin/Globulin Ratio (1.1-1.8) Procalcitonin 0.28 (0.19-0.49) NG/ML Venous Blood Potassium (3.6-5.2) mmol/L Laboratory Results - last 24 hr 10/06/17 10/06/17 10/06/17 12:00 12:00 12:00 WBC 11.9 H RBC 2.63 L Hgb 8.1 L Hct 24.7 L MCV 93.9 D MCH 30.8 MCHC 32.8 RDW 19.6 H Plt Count 141 MPV 9.4 Gran % 82.6 H Lymph % (Auto) 9.3 L Brewster % (Auto) 7.8 H Eos % (Auto) 0.1 L Baso % (Auto) 0.2 Gran # 9.81 H Lymph # 1.1 L Brewster # 0.9 H Eos # 0.0 Baso # 0.02 pO2 VBG pH VBG pCO2 VBG HCO3 VBG Total CO2 VBG O2 Sat (Calc) VBG Base Excess VBG Potassium Sodium Chloride Glucose Lactate FiO2 Potassium Carbon Dioxide Anion Gap BUN Creatinine Est GFR ( Amer) Est GFR (Non-Af Amer) Random Glucose Calcium Phosphorus Magnesium Total Bilirubin AST ALT Alkaline Phosphatase Ammonia Troponin I 0.02 Total Protein Albumin Globulin Albumin/Globulin Ratio Procalcitonin 0.28 Venous Blood Potassium 10/06/17 10/06/17 10/06/17 12:00 16:45 16:45 WBC 8.2 D RBC 2.08 L Hgb 6.4 L* Hct 18.9 L* MCV 90.9 D MCH 30.8 MCHC 33.9 RDW 21.1 H Plt Count 82 L MPV 9.4 Gran % 79.2 H Lymph % (Auto) 10.6 L Brewster % (Auto) 10.1 H Eos % (Auto) 0.0 L Baso % (Auto) 0.1 Gran # 6.51 H Lymph # 0.9 L Brewster # 0.8 H Eos # 0.0 Baso # 0.01 pO2 134 H VBG pH 7.25 L VBG pCO2 34.0 L VBG HCO3 14.9 L VBG Total CO2 15.9 L VBG O2 Sat (Calc) 100.1 H VBG Base Excess -11.3 L VBG Potassium 5.2 Sodium 136.0 Chloride 112.0 H Glucose 150 H Lactate 4.7 H* FiO2 21.0 Potassium Carbon Dioxide Anion Gap BUN Creatinine Est GFR ( Amer) Est GFR (Non-Af Amer) Random Glucose Calcium Phosphorus Magnesium Total Bilirubin AST ALT Alkaline Phosphatase Ammonia Troponin I 0.02 Total Protein Albumin Globulin Albumin/Globulin Ratio Procalcitonin Venous Blood Potassium 5.2 10/06/17 10/07/17 10/07/17 16:45 01:00 05:30 WBC 12.2 H D 12.2 H RBC 2.60 L 2.70 L Hgb 8.2 L 8.6 L Hct 23.2 L 24.1 L MCV 89.2 89.3 MCH 31.5 31.9 MCHC 35.3 35.7 RDW 19.6 H 20.0 H Plt Count 76 L 90 L MPV 8.4 8.9 Gran % 80.4 H 79.9 H Lymph % (Auto) 9.9 L 10.7 L Brewster % (Auto) 9.0 H 8.3 H Eos % (Auto) 0.5 L 0.9 L Baso % (Auto) 0.2 0.2 Gran # 9.84 H 9.76 H Lymph # 1.2 1.3 Brewster # 1.1 H 1.0 H Eos # 0.1 0.1 Baso # 0.02 0.03 pO2 163 H VBG pH 7.32 VBG pCO2 36.0 L VBG HCO3 18.5 L VBG Total CO2 19.6 L VBG O2 Sat (Calc) 100.5 H VBG Base Excess -6.9 L VBG Potassium 4.9 Sodium 139.0 Chloride 116.0 H Glucose 117 H Lactate 2.7 H FiO2 21.0 Potassium Carbon Dioxide Anion Gap BUN Creatinine Est GFR ( Amer) Est GFR (Non-Af Amer) Random Glucose Calcium Phosphorus Magnesium Total Bilirubin AST ALT Alkaline Phosphatase Ammonia Troponin I Total Protein Albumin Globulin Albumin/Globulin Ratio Procalcitonin Venous Blood Potassium 4.9 10/07/17 10/07/17 05:30 05:30 WBC RBC Hgb Hct MCV MCH MCHC RDW Plt Count MPV Gran % Lymph % (Auto) Brewster % (Auto) Eos % (Auto) Baso % (Auto) Gran # Lymph # Brewster # Eos # Baso # pO2 VBG pH VBG pCO2 VBG HCO3 VBG Total CO2 VBG O2 Sat (Calc) VBG Base Excess VBG Potassium Sodium 144 Chloride 115 H Glucose Lactate FiO2 Potassium 4.5 Carbon Dioxide 20 L Anion Gap 13 BUN 36 H Creatinine 1.6 H Est GFR ( Amer) 53 Est GFR (Non-Af Amer) 44 Random Glucose 109 Calcium 8.2 L Phosphorus 2.9 Magnesium 1.8 Total Bilirubin 4.9 H AST 177 H D ALT 96 H Alkaline Phosphatase 97 Ammonia 96.5 H Troponin I Total Protein 6.2 Albumin 3.0 Globulin 3.2 Albumin/Globulin Ratio 1.0 L Procalcitonin Venous Blood Potassium EKG/Cardiology Studies: Cardiology / EKG Studies 10/06/17 10:45 EKG [ELECTROCARDIOGRAM] Routine Comment: Reason For Exam: chest pain 10/06/17 16:00 EKG [ELECTROCARDIOGRAM] Routine Comment: Reason For Exam: chest pain Review of Systems - Review of Systems Review of Systems: 12-point review of systems negative except as indicated in the HPI Critical Care Progress Note - Nutrition Nutrition: Nutrition Category Date Time Status Liquid Diet [DIET] Diets 10/06/17 Breakfast Ordered Assessment/Plan - Assessment and Plan (Free Text) Assessment: Patient is a 62 year old male with past medical history of TRUJILLO, afib s/p cardioversion, HTN, GERD, CHF who was admitted to the hospital for evaluation and treatment of bright red blood in emesis. Plan: Neuro: Hepatic Encephalopathy - Patient is awake, alert, responds to verbal stimuli, answers questions appropriately, follows commands, and moves extremities past midline - Continue to monitor ammonia level- trending down, titrate lactulose to 2-3 BM per 24 hour period; start xifaxin Cardio: Hemorrhagic Shock and Component of Septic Shock - HR trended, reviewed, and appreciated, will continue to monitor closely - BPs trended, reviewed, and appreciated, will continue to monitor closely - wean off pressor support keep MAP > 65 - continue to monitor vitals CHF; Afib - hold aspirin plavix and aldactone at this time Pulm: - keep SaO2 above 92% GI: UGIB; Decompensated cirrhosis; Ascities - EGD performed yesterday- variceal bleeding noted- 9 bands were placed - patient is s/p 4 units pRBCs, 2 FFP, and 1 unit of platelets 2 units of pRBC being transfused - discontinue protonix gtt and start protonix 40 IV daily; c/w octreotide gtt - NPO - GI consulted,- appreciate recommendations Ammonia Elevated - c/w lactulose and add xifaxin - monitor ammonia- downtrending Elevated LFTs and T. bili - will continue to monitor via CMP Renal/Electrolytes: KEYUR likely due to Intravascular Depletion - creatinine and BUN trended, reviewed, and appreciated, will continue to monitor closely- downtrending - nephrology consulted- appreciate recommendations Endo: - keep patient euglycemic Heme: - Hgbs trended, reviewed, and appreciated, will continue to monitor closely- stable - DVT prophylaxis with SCDs ID SIRs Criteria - c/w meropenem, consider switching to rocephin once off of levophed - ID consulted- appreciate recommendations - f/u blood and urine culture Patient seen, case discussed with, and plan approved by attending physician, Dr. Grider. <Evgeny Grider - Last Filed: 10/07/17 11:21> CCU Objective - Vital Signs / Intake & Output Vital Signs (Last 4 hours): Vital Signs Pulse Resp BP Pulse Ox 10/07/17 10:40 86 19 99 10/07/17 10:30 90 25 H 108/59 L 100 10/07/17 10:20 86 18 100 10/07/17 10:15 88 18 107/64 100 10/07/17 10:10 91 H 21 96 10/07/17 10:00 85 18 104/59 L 10/07/17 09:50 89 20 10/07/17 09:45 86 19 109/57 L 10/07/17 09:40 89 38 H 10/07/17 09:30 92 H 24 98/58 L 10/07/17 09:20 92 H 43 H 97 10/07/17 09:16 93 H 30 H 104/61 100 10/07/17 09:10 92 H 21 100 10/07/17 09:00 88 32 H 104/65 98 10/07/17 08:50 96 H 22 96 10/07/17 08:45 96 H 22 102/59 L 97 10/07/17 08:40 98 H 24 93 L 10/07/17 08:32 92 H 18 104/59 L 97 10/07/17 08:30 109/56 L 10/07/17 08:29 92 H 19 97 10/07/17 08:20 92 H 19 98 10/07/17 08:15 117/65 10/07/17 08:14 91 H 18 97 10/07/17 08:10 93 H 17 97 10/07/17 08:00 92 H 20 119/66 98 10/07/17 07:50 94 H 22 98 10/07/17 07:45 93 H 20 121/71 98 10/07/17 07:40 93 H 19 97 10/07/17 07:30 91 H 18 119/68 97 10/07/17 07:20 91 H 19 98 Intake and Output (Last 8hrs): Intake & Output 10/06/17 10/07/17 10/07/17 22:59 06:59 14:59 Intake Total 4831 1714.5 168 Output Total 695 750 Balance 4136 964.5 168 Weight 155 lb Intake: IV 3206 1714.5 168 Right Internal Jugular 3206 1262 Blood Product 1475 Albumin 150 Output: Urine 375 750 2-way Urethral 375 750 Emesis 320 Other: Voiding Method Urinal # Bowel Movements 3 - Medications Active Medications: Active Medications Generic Name Dose Route Start Last Admin Trade Name Freq PRN Reason Stop Dose Admin Albumin Human 12.5 gm 10/07/17 09:30 10/07/17 10:30 Albumin Human 25% (12.5 Gm/50 Ml) IV 10/07/17 21:31 12.5 gm Q6H BIBIANA Administration Octreotide Acetate 1,250 mcg/ 252.5 mls @ 5.05 mls/hr 10/06/17 04:45 05:30 Sodium Chloride IV 50 mcg/hr .Q24H BIBIANA 10.1 mls/hr Protocol Administration 25 MCG/HR NOREPINEPHRINE BIT/0.9 % NACL 4 mg in 250 mls @ 15 mls/hr 10/06/17 05:34 09:30 Levophed 4 Mg/ 250 Ml Ns Premixed IV 0 mcg/min .[id number] PRN 0 mls/hr TITRATE PER MD ORDER Titration Protocol 4 MCG/MIN Meropenem 1 gm/ Dextrose 100 mls @ 100 mls/hr 10/06/17 16:06 10/07/17 10:40 IVPB 100 mls/hr Q12 BIBIANA Administration Protocol Lactulose 20 gm 10/07/17 10:00 10/07/17 10:32 Enulose PO Not Given BID BIBIANA Midodrine 5 mg 10/07/17 10:00 10/07/17 10:40 Proamatine PO 5 mg TID BIBIANA Administration Ondansetron HCl 4 mg 10/06/17 09:38 10/06/17 09:50 Zofran Inj IVP 4 mg Q4H PRN Administration Nausea/Vomiting Pantoprazole Sodium 40 mg 10/07/17 10:00 10/07/17 10:39 Protonix Inj IVP 40 mg BID BIBIANA Administration Rifaximin 550 mg 10/07/17 10:00 10/07/17 10:40 Xifaxan PO 550 mg BID BIBIANA Administration Protocol - Patient Studies Lab Studies: Microbiology Studies 10/06/17 08:08 Blood Culture - Preliminary Blood-Venous NO GROWTH AFTER 24 HOURS 10/06/17 07:35 Blood Culture - Preliminary Blood-Venous NO GROWTH AFTER 24 HOURS Lab Studies 10/07/17 10/07/17 10/07/17 Range/Units 09:30 05:30 05:30 WBC (4.5-11.0) 10^3/ul RBC (3.5-6.1) 10^6/uL Hgb (14.0-18.0) g/dL Hct (42.0-52.0) % MCV (80.0-105.0) fl MCH (25.0-35.0) pg MCHC (31.0-37.0) g/dl RDW (11.5-14.5) % Plt Count (120.0-450.0) 10^3/uL MPV (7.0-11.0) fl Gran % (50.0-68.0) % Lymph % (Auto) (22.0-35.0) % Brewster % (Auto) (1.0-6.0) % Eos % (Auto) (1.5-5.0) % Baso % (Auto) (0.0-3.0) % Gran # (1.4-6.5) Lymph # (1.2-3.4) Brewster # (0.1-0.6) Eos # (0.0-0.7) Baso # (0.0-2.0) K/mm3 PT 19.6 H (9.4-12.5) SECONDS INR 1.76 H (0.93-1.08) pO2 (30-55) mm/Hg VBG pH (7.32-7.43) VBG pCO2 (40-60) VBG HCO3 (21-28) mmol/l VBG Total CO2 (22-28) mmol.L VBG O2 Sat (Calc) (40-65) % VBG Base Excess (0.0-2.0) mmol/L VBG Potassium (3.6-5.2) mmol/L Sodium 144 (132-148) mmol/L Chloride 115 H (98-107) mmol/L Glucose (75-110) mg/dl Lactate (0.7-2.1) mmol/L FiO2 % Potassium 4.5 (3.6-5.0) mmol/L Carbon Dioxide 20 L (21-33) mmol/L Anion Gap 13 (10-20) BUN 36 H (7-21) mg/dL Creatinine 1.6 H (0.8-1.5) mg/dl Est GFR ( Amer) 53 Est GFR (Non-Af Amer) 44 Random Glucose 109 (70-110) mg/dL Calcium 8.2 L (8.4-10.5) mg/dL Phosphorus 2.9 (2.5-4.5) mg/dL Magnesium 1.8 (1.7-2.2) mg/dL Total Bilirubin 4.9 H (0.2-1.3) mg/dL AST 177 H D (17-59) U/L ALT 96 H (7-56) U/L Alkaline Phosphatase 97 (38-126) U/L Ammonia 96.5 H (9-33) umol/L Troponin I ng/mL Total Protein 6.2 (5.8-8.3) g/dL Albumin 3.0 (3.0-4.8) g/dL Globulin 3.2 gm/dL Albumin/Globulin Ratio 1.0 L (1.1-1.8) Procalcitonin (0.19-0.49) NG/ML Venous Blood Potassium (3.6-5.2) mmol/L 10/07/17 10/07/17 10/06/17 Range/Units 05:30 01:00 16:45 WBC 12.2 H 12.2 H D (4.5-11.0) 10^3/ul RBC 2.70 L 2.60 L (3.5-6.1) 10^6/uL Hgb 8.6 L 8.2 L (14.0-18.0) g/dL Hct 24.1 L 23.2 L (42.0-52.0) % MCV 89.3 89.2 (80.0-105.0) fl MCH 31.9 31.5 (25.0-35.0) pg MCHC 35.7 35.3 (31.0-37.0) g/dl RDW 20.0 H 19.6 H (11.5-14.5) % Plt Count 90 L 76 L (120.0-450.0) 10^3/uL MPV 8.9 8.4 (7.0-11.0) fl Gran % 79.9 H 80.4 H (50.0-68.0) % Lymph % (Auto) 10.7 L 9.9 L (22.0-35.0) % Brewster % (Auto) 8.3 H 9.0 H (1.0-6.0) % Eos % (Auto) 0.9 L 0.5 L (1.5-5.0) % Baso % (Auto) 0.2 0.2 (0.0-3.0) % Gran # 9.76 H 9.84 H (1.4-6.5) Lymph # 1.3 1.2 (1.2-3.4) Brewster # 1.0 H 1.1 H (0.1-0.6) Eos # 0.1 0.1 (0.0-0.7) Baso # 0.03 0.02 (0.0-2.0) K/mm3 PT (9.4-12.5) SECONDS INR (0.93-1.08) pO2 163 H (30-55) mm/Hg VBG pH 7.32 (7.32-7.43) VBG pCO2 36.0 L (40-60) VBG HCO3 18.5 L (21-28) mmol/l VBG Total CO2 19.6 L (22-28) mmol.L VBG O2 Sat (Calc) 100.5 H (40-65) % VBG Base Excess -6.9 L (0.0-2.0) mmol/L VBG Potassium 4.9 (3.6-5.2) mmol/L Sodium 139.0 (132-148) mmol/L Chloride 116.0 H (98-107) mmol/L Glucose 117 H (75-110) mg/dl Lactate 2.7 H (0.7-2.1) mmol/L FiO2 21.0 % Potassium (3.6-5.0) mmol/L Carbon Dioxide (21-33) mmol/L Anion Gap (10-20) BUN (7-21) mg/dL Creatinine (0.8-1.5) mg/dl Est GFR ( Amer) Est GFR (Non-Af Amer) Random Glucose (70-110) mg/dL Calcium (8.4-10.5) mg/dL Phosphorus (2.5-4.5) mg/dL Magnesium (1.7-2.2) mg/dL Total Bilirubin (0.2-1.3) mg/dL AST (17-59) U/L ALT (7-56) U/L Alkaline Phosphatase (38-126) U/L Ammonia (9-33) umol/L Troponin I ng/mL Total Protein (5.8-8.3) g/dL Albumin (3.0-4.8) g/dL Globulin gm/dL Albumin/Globulin Ratio (1.1-1.8) Procalcitonin (0.19-0.49) NG/ML Venous Blood Potassium 4.9 (3.6-5.2) mmol/L 10/06/17 10/06/17 10/06/17 Range/Units 16:45 16:45 12:00 WBC 8.2 D (4.5-11.0) 10^3/ul RBC 2.08 L (3.5-6.1) 10^6/uL Hgb 6.4 L* (14.0-18.0) g/dL Hct 18.9 L* (42.0-52.0) % MCV 90.9 D (80.0-105.0) fl MCH 30.8 (25.0-35.0) pg MCHC 33.9 (31.0-37.0) g/dl RDW 21.1 H (11.5-14.5) % Plt Count 82 L (120.0-450.0) 10^3/uL MPV 9.4 (7.0-11.0) fl Gran % 79.2 H (50.0-68.0) % Lymph % (Auto) 10.6 L (22.0-35.0) % Brewster % (Auto) 10.1 H (1.0-6.0) % Eos % (Auto) 0.0 L (1.5-5.0) % Baso % (Auto) 0.1 (0.0-3.0) % Gran # 6.51 H (1.4-6.5) Lymph # 0.9 L (1.2-3.4) Brewster # 0.8 H (0.1-0.6) Eos # 0.0 (0.0-0.7) Baso # 0.01 (0.0-2.0) K/mm3 PT (9.4-12.5) SECONDS INR (0.93-1.08) pO2 134 H (30-55) mm/Hg VBG pH 7.25 L (7.32-7.43) VBG pCO2 34.0 L (40-60) VBG HCO3 14.9 L (21-28) mmol/l VBG Total CO2 15.9 L (22-28) mmol.L VBG O2 Sat (Calc) 100.1 H (40-65) % VBG Base Excess -11.3 L (0.0-2.0) mmol/L VBG Potassium 5.2 (3.6-5.2) mmol/L Sodium 136.0 (132-148) mmol/L Chloride 112.0 H (98-107) mmol/L Glucose 150 H (75-110) mg/dl Lactate 4.7 H* (0.7-2.1) mmol/L FiO2 21.0 % Potassium (3.6-5.0) mmol/L Carbon Dioxide (21-33) mmol/L Anion Gap (10-20) BUN (7-21) mg/dL Creatinine (0.8-1.5) mg/dl Est GFR ( Amer) Est GFR (Non-Af Amer) Random Glucose (70-110) mg/dL Calcium (8.4-10.5) mg/dL Phosphorus (2.5-4.5) mg/dL Magnesium (1.7-2.2) mg/dL Total Bilirubin (0.2-1.3) mg/dL AST (17-59) U/L ALT (7-56) U/L Alkaline Phosphatase (38-126) U/L Ammonia (9-33) umol/L Troponin I 0.02 ng/mL Total Protein (5.8-8.3) g/dL Albumin (3.0-4.8) g/dL Globulin gm/dL Albumin/Globulin Ratio (1.1-1.8) Procalcitonin (0.19-0.49) NG/ML Venous Blood Potassium 5.2 (3.6-5.2) mmol/L 10/06/17 10/06/17 10/06/17 Range/Units 12:00 12:00 12:00 WBC 11.9 H (4.5-11.0) 10^3/ul RBC 2.63 L (3.5-6.1) 10^6/uL Hgb 8.1 L (14.0-18.0) g/dL Hct 24.7 L (42.0-52.0) % MCV 93.9 D (80.0-105.0) fl MCH 30.8 (25.0-35.0) pg MCHC 32.8 (31.0-37.0) g/dl RDW 19.6 H (11.5-14.5) % Plt Count 141 (120.0-450.0) 10^3/uL MPV 9.4 (7.0-11.0) fl Gran % 82.6 H (50.0-68.0) % Lymph % (Auto) 9.3 L (22.0-35.0) % Brewster % (Auto) 7.8 H (1.0-6.0) % Eos % (Auto) 0.1 L (1.5-5.0) % Baso % (Auto) 0.2 (0.0-3.0) % Gran # 9.81 H (1.4-6.5) Lymph # 1.1 L (1.2-3.4) Brewster # 0.9 H (0.1-0.6) Eos # 0.0 (0.0-0.7) Baso # 0.02 (0.0-2.0) K/mm3 PT (9.4-12.5) SECONDS INR (0.93-1.08) pO2 (30-55) mm/Hg VBG pH (7.32-7.43) VBG pCO2 (40-60) VBG HCO3 (21-28) mmol/l VBG Total CO2 (22-28) mmol.L VBG O2 Sat (Calc) (40-65) % VBG Base Excess (0.0-2.0) mmol/L VBG Potassium (3.6-5.2) mmol/L Sodium (132-148) mmol/L Chloride (98-107) mmol/L Glucose (75-110) mg/dl Lactate (0.7-2.1) mmol/L FiO2 % Potassium (3.6-5.0) mmol/L Carbon Dioxide (21-33) mmol/L Anion Gap (10-20) BUN (7-21) mg/dL Creatinine (0.8-1.5) mg/dl Est GFR ( Amer) Est GFR (Non-Af Amer) Random Glucose (70-110) mg/dL Calcium (8.4-10.5) mg/dL Phosphorus (2.5-4.5) mg/dL Magnesium (1.7-2.2) mg/dL Total Bilirubin (0.2-1.3) mg/dL AST (17-59) U/L ALT (7-56) U/L Alkaline Phosphatase (38-126) U/L Ammonia (9-33) umol/L Troponin I 0.02 ng/mL Total Protein (5.8-8.3) g/dL Albumin (3.0-4.8) g/dL Globulin gm/dL Albumin/Globulin Ratio (1.1-1.8) Procalcitonin 0.28 (0.19-0.49) NG/ML Venous Blood Potassium (3.6-5.2) mmol/L Laboratory Results - last 24 hr 10/06/17 10/06/17 10/06/17 12:00 12:00 12:00 WBC 11.9 H RBC 2.63 L Hgb 8.1 L Hct 24.7 L MCV 93.9 D MCH 30.8 MCHC 32.8 RDW 19.6 H Plt Count 141 MPV 9.4 Gran % 82.6 H Lymph % (Auto) 9.3 L Brewster % (Auto) 7.8 H Eos % (Auto) 0.1 L Baso % (Auto) 0.2 Gran # 9.81 H Lymph # 1.1 L Brewster # 0.9 H Eos # 0.0 Baso # 0.02 PT INR pO2 VBG pH VBG pCO2 VBG HCO3 VBG Total CO2 VBG O2 Sat (Calc) VBG Base Excess VBG Potassium Sodium Chloride Glucose Lactate FiO2 Potassium Carbon Dioxide Anion Gap BUN Creatinine Est GFR ( Amer) Est GFR (Non-Af Amer) Random Glucose Calcium Phosphorus Magnesium Total Bilirubin AST ALT Alkaline Phosphatase Ammonia Troponin I 0.02 Total Protein Albumin Globulin Albumin/Globulin Ratio Procalcitonin 0.28 Venous Blood Potassium 10/06/17 10/06/17 10/06/17 12:00 16:45 16:45 WBC 8.2 D RBC 2.08 L Hgb 6.4 L* Hct 18.9 L* MCV 90.9 D MCH 30.8 MCHC 33.9 RDW 21.1 H Plt Count 82 L MPV 9.4 Gran % 79.2 H Lymph % (Auto) 10.6 L Brewster % (Auto) 10.1 H Eos % (Auto) 0.0 L Baso % (Auto) 0.1 Gran # 6.51 H Lymph # 0.9 L Brewster # 0.8 H Eos # 0.0 Baso # 0.01 PT INR pO2 134 H VBG pH 7.25 L VBG pCO2 34.0 L VBG HCO3 14.9 L VBG Total CO2 15.9 L VBG O2 Sat (Calc) 100.1 H VBG Base Excess -11.3 L VBG Potassium 5.2 Sodium 136.0 Chloride 112.0 H Glucose 150 H Lactate 4.7 H* FiO2 21.0 Potassium Carbon Dioxide Anion Gap BUN Creatinine Est GFR ( Amer) Est GFR (Non-Af Amer) Random Glucose Calcium Phosphorus Magnesium Total Bilirubin AST ALT Alkaline Phosphatase Ammonia Troponin I 0.02 Total Protein Albumin Globulin Albumin/Globulin Ratio Procalcitonin Venous Blood Potassium 5.2 10/06/17 10/07/17 10/07/17 16:45 01:00 05:30 WBC 12.2 H D 12.2 H RBC 2.60 L 2.70 L Hgb 8.2 L 8.6 L Hct 23.2 L 24.1 L MCV 89.2 89.3 MCH 31.5 31.9 MCHC 35.3 35.7 RDW 19.6 H 20.0 H Plt Count 76 L 90 L MPV 8.4 8.9 Gran % 80.4 H 79.9 H Lymph % (Auto) 9.9 L 10.7 L Brewster % (Auto) 9.0 H 8.3 H Eos % (Auto) 0.5 L 0.9 L Baso % (Auto) 0.2 0.2 Gran # 9.84 H 9.76 H Lymph # 1.2 1.3 Brewster # 1.1 H 1.0 H Eos # 0.1 0.1 Baso # 0.02 0.03 PT INR pO2 163 H VBG pH 7.32 VBG pCO2 36.0 L VBG HCO3 18.5 L VBG Total CO2 19.6 L VBG O2 Sat (Calc) 100.5 H VBG Base Excess -6.9 L VBG Potassium 4.9 Sodium 139.0 Chloride 116.0 H Glucose 117 H Lactate 2.7 H FiO2 21.0 Potassium Carbon Dioxide Anion Gap BUN Creatinine Est GFR ( Amer) Est GFR (Non-Af Amer) Random Glucose Calcium Phosphorus Magnesium Total Bilirubin AST ALT Alkaline Phosphatase Ammonia Troponin I Total Protein Albumin Globulin Albumin/Globulin Ratio Procalcitonin Venous Blood Potassium 4.9 10/07/17 10/07/17 10/07/17 05:30 05:30 09:30 WBC RBC Hgb Hct MCV MCH MCHC RDW Plt Count MPV Gran % Lymph % (Auto) Brewster % (Auto) Eos % (Auto) Baso % (Auto) Gran # Lymph # Brewster # Eos # Baso # PT 19.6 H INR 1.76 H pO2 VBG pH VBG pCO2 VBG HCO3 VBG Total CO2 VBG O2 Sat (Calc) VBG Base Excess VBG Potassium Sodium 144 Chloride 115 H Glucose Lactate FiO2 Potassium 4.5 Carbon Dioxide 20 L Anion Gap 13 BUN 36 H Creatinine 1.6 H Est GFR ( Amer) 53 Est GFR (Non-Af Amer) 44 Random Glucose 109 Calcium 8.2 L Phosphorus 2.9 Magnesium 1.8 Total Bilirubin 4.9 H AST 177 H D ALT 96 H Alkaline Phosphatase 97 Ammonia 96.5 H Troponin I Total Protein 6.2 Albumin 3.0 Globulin 3.2 Albumin/Globulin Ratio 1.0 L Procalcitonin Venous Blood Potassium EKG/Cardiology Studies: Cardiology / EKG Studies 10/06/17 10:45 EKG [ELECTROCARDIOGRAM] Routine Comment: Reason For Exam: chest pain 10/06/17 16:00 EKG [ELECTROCARDIOGRAM] Routine Comment: Reason For Exam: chest pain Critical Care Progress Note - Nutrition Nutrition: Nutrition Category Date Time Status Liquid Diet [DIET] Diets 10/06/17 Breakfast Ordered Assessment/Plan - Assessment and Plan (Free Text) Plan: Patient seen and examined, agree with note with following additions/exceptions: Patient is a 62 year old male with past medical history of TRUJILLO, afib s/p cardioversion, HTN, GERD, CHF who was admitted to the hospital for evaluation and treatment of bright red blood in emesis, anemia, septic shock, hemorrhagic shock. Pt is currently awake, alert, NAD, off Vasopressors. Patient is s/p 4 units pRBCs, 2 FFP, and 1 unit of platelets transfusion. Pt had EGD yesterday, had 9 bands. GI following, ID following. Patient refusing Lactulose PO, risks and benefits discussed. GIB Septic/hemorrhagic Shock TRUJILLO Anemia Hepatic Encephalopahy Recommend - supp o2 as needed, monitor resp status - antibiotics as per ID - hold BP meds - start midodrine 5mg TID PO - clear liquid diet as per GI - Rifaximin - serial CBC - PPI BID, Octreotide - follow up GI - SCDs - FS control critical care time 45 minutes
--- NOTE | 2017-10-07 07:34 | CP.PCM.PN ---
<Kalani Gonzalez - Last Filed: 10/07/17 10:41> Subjective - Date & Time of Evaluation Date of Evaluation: 10/07/17 Time of Evaluation: 07:45 - Subjective Subjective: GI Fellow Progress Note Pt seen and evaluated at beside, pt overnight had 3-4 dark stools and was transfused more blood with 2U PRBCs. Pt continues to be on IV levophed and IV Meropenem. Pt denies any CP,SOB, or palpiations, no futher hematemesis. ROS: A 12pt ROS was negative except as above. Objective - Vital Signs/Intake and Output Vital Signs (last 24 hours): Temp Pulse Resp BP Pulse Ox 99.5 F 93 H 21 121/69 97 10/07/17 04:00 10/07/17 06:30 10/07/17 06:30 10/07/17 06:30 10/07/17 06:30 Intake and Output: 10/07/17 10/07/17 06:59 18:59 Intake Total 1714.5 Output Total 750 Balance 964.5 - Medications Medications: Current Medications Aspirin (Ecotrin) 81 mg PO DAILY [facility] Last Admin: 10/06/17 15:40 Dose: Not Given Pantoprazole Sodium (Protonix 40mg Ivpb) 40 mg in 100 mls @ 20 mls/hr IVPB .Q5H [facility] Last Admin: 10/07/17 01:45 Dose: 20 mls/hr Octreotide Acetate 1,250 mcg/ (Sodium Chloride) 252.5 mls @ 5.05 mls/hr IV .Q24H [facility]; 25 MCG/HR PRN Reason: Protocol Last Admin: 10/07/17 05:30 Dose: 50 mcg/hr, 10.1 mls/hr NOREPINEPHRINE BIT/0.9 % NACL (Levophed 4 Mg/ 250 Ml Ns Premixed) 4 mg in 250 mls @ 15 mls/hr IV .[id number] PRN; Protocol; 4 MCG/MIN PRN Reason: TITRATE PER MD ORDER Last Admin: 10/06/17 23:49 Dose: 5 mcg/min, 18.75 mls/hr Vasopressin 20 units/ Sodium (Chloride) 101 mls @ 9.09 mls/hr IV .[id number] [facility]; 0.03 U/MIN PRN Reason: Protocol Last Admin: 10/06/17 15:41 Dose: Not Given Meropenem 1 gm/ Dextrose 100 mls @ 100 mls/hr IVPB Q12 [facility] PRN Reason: Protocol Last Admin: 10/06/17 22:30 Dose: 100 mls/hr Lactulose (Generlac) 200 gm VA Q8 [facility] Last Admin: 10/07/17 06:10 Dose: Not Given Ondansetron HCl (Zofran Inj) 4 mg IVP Q4H PRN PRN Reason: Nausea/Vomiting Last Admin: 10/06/17 09:50 Dose: 4 mg - Labs Labs: 10/07/17 05:30 10/07/17 05:30 PT 17.2 SECONDS (9.4-12.5) H 10/06/17 04:45 INR 1.55 (0.93-1.08) H 10/06/17 04:45 APTT 33.5 Seconds (25.1-36.5) 10/06/17 04:45 - Constitutional Appears: Cachectic, Chronically Ill - Head Exam Head Exam: ATRAUMATIC, NORMAL INSPECTION, NORMOCEPHALIC Assessment and Plan - Assessment and Plan (Free Text) Assessment: This is a 62yM presenting with acute onset of hematemesis and anemia. 1. UGIB Variceal 2. Anemia 3. Decompensated cirrhosis MELD 24 on admission 4. Hx of GI bleeding 5. CAD s/p bare metal [id number] ago 6. Hx of Acites s/p 7L paracentesis 10/04/17 7. Hx of HE 8. KEYUR Plan: -Continue supportive care with ICU admission and close monitoring -Active UGIB with hematemesis which has resolved now but pt has dark stools overnight -s/p emergent endoscopy with 9 variceal banding in distal and midesophagus, unable to clearly view gastric cardia due to blood for other etiology of GI bleeding like PUD -Pt has large varices in proximal esophagus, recommend further imaging to r/o SVC stenosis, may need CT once Cr better -Continue IV Octreotide drip 50mcg/hr for total 72hrs -Can change IV PPI drip to PPI daily -Clear Liquid diet only -Hold diuretics with KEYUR, UA and urine electrolytes pending, Cr improving -Continue lactulose and rifaxamin for HE prevention -Can restart nadolol once hemodynamically stable per ICU team -Pt's BP stable around 90s-100s which is pt's baseline due to hx of cirrhosis, recommend discontinuing IV Levophed, will defer to primary team -Pt's s/p recent paracentesis with no SBP, can narrow abx to IV Ceftriaxone for UGIB but will defer to primary team -Do not recommend holding aspirin or plavix with recent cardiac cath and bare metal stent placement -Pt transfused 4U PRBCs, Hgb stable, monitor H/H -Will need repeat EGD as an outpt to evaluated eradication of varices -Will continue to follow pt closely -Case discussed with ICU team <Delonte Garcia - Last Filed: 10/07/17 13:05> Objective - Vital Signs/Intake and Output Vital Signs (last 24 hours): Temp Pulse Resp BP Pulse Ox 99.5 F 86 19 108/59 L 99 10/07/17 04:00 10/07/17 10:40 10/07/17 10:40 10/07/17 10:30 10/07/17 10:40 Intake and Output: 10/07/17 10/07/17 06:59 18:59 Intake Total 1714.5 168 Output Total 750 Balance 964.5 168 - Medications Medications: Current Medications Albumin Human (Albumin Human 25% (12.5 Gm/50 Ml)) 12.5 gm IV Q6H [place] Stop: 10/07/17 21:31 Last Admin: 10/07/17 10:30 Dose: 12.5 gm Octreotide Acetate 1,250 mcg/ (Sodium Chloride) 252.5 mls @ 5.05 mls/hr IV .Q24H [facility]; 25 MCG/HR PRN Reason: Protocol Last Admin: 10/07/17 05:30 Dose: 50 mcg/hr, 10.1 mls/hr NOREPINEPHRINE BIT/0.9 % NACL (Levophed 4 Mg/ 250 Ml Ns Premixed) 4 mg in 250 mls @ 15 mls/hr IV .[id number] PRN; Protocol; 4 MCG/MIN PRN Reason: TITRATE PER MD ORDER Last Titration: 10/07/17 09:30 Dose: 0 mcg/min, 0 mls/hr Meropenem 1 gm/ Dextrose 100 mls @ 100 mls/hr IVPB Q12 BIBINAA PRN Reason: Protocol Last Admin: 10/07/17 10:40 Dose: 100 mls/hr Lactulose (Enulose) 20 gm PO BID [facility] Last Admin: 10/07/17 10:32 Dose: Not Given Midodrine (Proamatine) 5 mg PO TID [facility] Last Admin: 10/07/17 10:40 Dose: 5 mg Ondansetron HCl (Zofran Inj) 4 mg IVP Q4H PRN PRN Reason: Nausea/Vomiting Last Admin: 10/06/17 09:50 Dose: 4 mg Pantoprazole Sodium (Protonix Inj) 40 mg IVP BID [facility] Last Admin: 10/07/17 10:39 Dose: 40 mg Rifaximin (Xifaxan) 550 mg PO BID [facility] PRN Reason: Protocol Last Admin: 10/07/17 10:40 Dose: 550 mg - Labs Labs: 10/07/17 05:30 10/07/17 05:30 PT 19.6 SECONDS (9.4-12.5) H 10/07/17 09:30 INR 1.76 (0.93-1.08) H 10/07/17 09:30 APTT 33.5 Seconds (25.1-36.5) 10/06/17 04:45 Attending/Attestation - Attestation I have personally seen and examined this patient.: Yes I have fully participated in the care of the patient.: Yes I have reviewed all pertinent clinical information, including history, physical exam and plan: Yes Notes (Text): 10/07/17 12:59 I have seen and examined patient with GI fellow. He remains in critical care unit, resting comfortably. No acute events overnight. He denies abdominal pain , nausea, vomiting, fever/chills. Tolerating PO liquids without difficulty. He had 4 dark colored bowel movements overnight, vasopressor therapy has been discontinued. Review of vitals from this morning shows tachycardia. Decompensated cirrhosis, unclear etiology Hematemesis, s/p EGD yesterday with variceal band ligation CAD s/p stent Acute on chronic renal insufficiency - Clear liquid diet as tolerated - H/H stable, s/p PRBC transfusion, continue to monitor - Continue with IV PPI and octreotide infusion therapy - Continue with antibiotic therapy to complete 5 day course in cirrhotic patient with upper GI bleeding - Creatinine improving, continue to monitor - Continue with lactulose and xifaxan for prevention of HE - LFTs elevated, continue to monitor - Will need repeat outpatient EGD for variceal surveillance and colonoscopy for screening within 2 months. Will also require additional workup regarding etiology of cirrhosis and imaging for HCC surveillance following improvement in renal function. Will continue to monitor patient clinical course.
--- NOTE | 2017-10-07 09:21 | US ---
PROCEDURE: Portal vein duplex ultrasound. CLINICAL HISTORY: Cirrhosis. Deteriorating liver function. Evaluate for portal vein thrombosis. PHYSICIAN(S): Franko Crespo M.D. FINDINGS: The extrahepatic portal vein is small but patent. There appears to be some adherent thrombus in the portal vein. Flow within the portal vein is hepatopetal. The hepatic artery is hypertrophied. The central patent veins appear patent. The liver is shrunken and heterogeneous, consistent with cirrhosis. A small to moderate amount of ascites is noted in the upper abdomen IMPRESSION: 1. The extrahepatic portal vein is patent with hepatopetal flow. It is small in caliber and there may be a small amount of adherent thrombus present.
--- NOTE | 2017-10-07 09:25 | CP.PCM.PN ---
<Jenifer Greenberg - Last Filed: 10/07/17 13:47> Subjective - Date & Time of Evaluation Date of Evaluation: 10/07/17 Time of Evaluation: 13:47 - Subjective Subjective: PGY2 Medicine note for Dr. Rosales Patient seen and examined at bedside. Overnight patient had 3 bouts of bloody BM. 750cc output in [place]. Patient is s/p EGD with 9 bands. He complained of some dizziness and some pain at his ribs but overall reported he felt better than on admission. Denied any fever, chills, headache, chest pain, palpitations , SOB, cough, abd pain, nausea, vomiting, pain/swelling in his legs bilaterally. Objective - Vital Signs/Intake and Output Vital Signs (last 24 hours): Temp Pulse Resp BP Pulse Ox 99.5 F 93 H 17 119/66 97 10/07/17 04:00 10/07/17 08:10 10/07/17 08:10 10/07/17 08:00 10/07/17 08:10 Intake and Output: 10/07/17 10/07/17 06:59 18:59 Intake Total 1714.5 Output Total 750 Balance 964.5 - Medications Medications: Current Medications Albumin Human (Albumin Human 25% (12.5 Gm/50 Ml)) 12.5 gm IV Q6H [place] Stop: 10/07/17 21:31 Octreotide Acetate 1,250 mcg/ (Sodium Chloride) 252.5 mls @ 5.05 mls/hr IV .Q24H [facility]; 25 MCG/HR PRN Reason: Protocol Last Admin: 10/07/17 05:30 Dose: 50 mcg/hr, 10.1 mls/hr NOREPINEPHRINE BIT/0.9 % NACL (Levophed 4 Mg/ 250 Ml Ns Premixed) 4 mg in 250 mls @ 15 mls/hr IV .[id number] PRN; Protocol; 4 MCG/MIN PRN Reason: TITRATE PER MD ORDER Last Admin: 10/06/17 23:49 Dose: 5 mcg/min, 18.75 mls/hr Meropenem 1 gm/ Dextrose 100 mls @ 100 mls/hr IVPB Q12 [place] PRN Reason: Protocol Last Admin: 10/06/17 22:30 Dose: 100 mls/hr Lactulose (Enulose) 20 gm PO BID [facility] Midodrine (Proamatine) 5 mg PO TID [facility] Ondansetron HCl (Zofran Inj) 4 mg IVP Q4H PRN PRN Reason: Nausea/Vomiting Last Admin: 10/06/17 09:50 Dose: 4 mg Pantoprazole Sodium (Protonix Inj) 40 mg IVP BID [facility] Rifaximin (Xifaxan) 550 mg PO BID [facility] PRN Reason: Protocol - Labs Labs: 10/07/17 05:30 10/07/17 05:30 PT 17.2 SECONDS (9.4-12.5) H 10/06/17 04:45 INR 1.55 (0.93-1.08) H 10/06/17 04:45 APTT 33.5 Seconds (25.1-36.5) 10/06/17 04:45 - Constitutional Appears: Non-toxic, Chronically Ill - Head Exam Head Exam: ATRAUMATIC, NORMAL INSPECTION, NORMOCEPHALIC - Eye Exam Eye Exam: EOMI, Normal appearance, PERRL. absent: Conjunctival injection, Scleral icterus - ENT Exam ENT Exam: Mucous Membranes Dry - Neck Exam Neck Exam: Normal Inspection. absent: Lymphadenopathy - Respiratory Exam Respiratory Exam: Clear to Ausculation Bilateral, NORMAL BREATHING PATTERN. absent: Accessory Muscle Use, Rales, Rhonchi, Wheezes, Respiratory Distress - Cardiovascular Exam Cardiovascular Exam: REGULAR RHYTHM, RRR, +S1, +S2. absent: Murmur - GI/Abdominal Exam GI & Abdominal Exam: Soft, Normal Bowel Sounds. absent: Distended, Firm, Guarding, Rigid, Tenderness - Extremities Exam Extremities Exam: Normal Capillary Refill, Normal Inspection. absent: Calf Tenderness, Pedal Edema, Tenderness - Back Exam Back Exam: NORMAL INSPECTION. absent: rash noted - Neurological Exam Neurological Exam: Alert, Awake, Oriented x3 - Psychiatric Exam Psychiatric exam: Normal Affect, Normal Mood - Skin Skin Exam: Dry, Intact, Pallor. absent: Rash Assessment and Plan - Assessment and Plan (Free Text) Assessment: 62 year old male with past medical history of TRUJILLO, afib s/p cardioversion, HTN , GERD, CHF who was admitted to the hospital for evaluation and treatment of bright red blood in emesis. Plan: 1. Upper GI bleed secondary to varices -s/p endscopy with 9 variceal banding in distal and midesophagus -Total of 4u PRBCs, 2u FFPs, and 1u platelets -Protonix 40mg iv bid -octreotide gtt -Clear liquid diet -Lactulose, Rifaximin, and Albumin given -Abd u/s: extrahepatic portal vein is patent with hepatopetal flow. It is small in caliber and there may be a small amount of adherent thrombus present. -GI consulted: Dr. Garcia 2. SIRS -continue merrem and consider switch to rocephin -f/u blood and urine culture -ID consulted; Dr. Tejeda 3. Acute Renal Failure: Intravascular Depletion vs. Hepato-Renal Syndrome -Albumin continued -Nephro consulted: Dr. Resendiz 4. Elevated Ammonia level: likely secondary to SIRS v Hepatic Encephalopathy -Ammonia trending down -Patient refusing lactulose -Rifaximin 550mg po bid 5. Hypotension -levophed d/c -Midodrine 5mg po tid 6. History of Afib s/p cardioversion -EKG sinus rhythm, penidng official read -History of CAD s/p cardiac cath with bare metal stent placement, holding aspirin and plavix due to active bleeding 7. History of TRUJILLO with ascites -Monitor LFTs 8. CHF (diastolic dysfunction) -Last echo 08/2017 showed normal LVEF and LV size, dilated RA/RV/LA -Strict I/Os GI ppx: Protonix 40mg ivp bid DVT ppx: SCDs Diet: Clear liquid Discussed with Dr. Bobby Greenberg pgy2 <Felicita Rosales - Last Filed: 10/08/17 16:35> Objective - Vital Signs/Intake and Output Vital Signs (last 24 hours): Temp Pulse Resp BP Pulse Ox 99.1 F 63 15 106/51 L 100 10/08/17 04:00 10/08/17 14:45 10/08/17 14:45 10/08/17 14:45 10/08/17 14:45 Intake and Output: 10/08/17 10/08/17 06:59 18:59 Intake Total 652.5 Output Total 604 Balance 48.5 - Medications Medications: Current Medications Aspirin (Ecotrin) 81 mg PO DAILY [facility] Last Admin: 10/08/17 09:24 Dose: 81 mg Octreotide Acetate 1,250 mcg/ (Sodium Chloride) 252.5 mls @ 5.05 mls/hr IV .Q24H [facility]; 25 MCG/HR PRN Reason: Protocol Last Admin: 10/08/17 05:13 Dose: 50 mcg/hr, 10.1 mls/hr NOREPINEPHRINE BIT/0.9 % NACL (Levophed 4 Mg/ 250 Ml Ns Premixed) 4 mg in 250 mls @ 15 mls/hr IV .[id number] PRN; Protocol; 4 MCG/MIN PRN Reason: TITRATE PER MD ORDER Last Titration: 10/07/17 09:30 Dose: 0 mcg/min, 0 mls/hr Ceftriaxone Sodium (Rocephin 1 Gram Ivpb) 1 gm in 100 mls @ 100 mls/hr IVPB DAILY [facility] PRN Reason: Protocol Last Admin: 10/08/17 14:14 Dose: 100 mls/hr Lactulose (Enulose) 20 gm PO BID [facility] Last Admin: 10/08/17 09:24 Dose: Not Given Midodrine (Proamatine) 5 mg PO TID [facility] Last Admin: 10/08/17 14:14 Dose: 5 mg Ondansetron HCl (Zofran Inj) 4 mg IVP Q4H PRN PRN Reason: Nausea/Vomiting Last Admin: 10/06/17 09:50 Dose: 4 mg Pantoprazole Sodium (Protonix Inj) 40 mg IVP BID [facility] Last Admin: 10/08/17 09:23 Dose: 40 mg Potassium Phos/Sodium Phos (Neutra-Phos) 1 pkt PO BID [facility] Rifaximin (Xifaxan) 550 mg PO BID [facility] PRN Reason: Protocol Last Admin: 10/08/17 09:23 Dose: 550 mg - Labs Labs: 10/08/17 05:00 10/08/17 05:00 PT 18.8 SECONDS (9.4-12.5) H 10/08/17 05:00 INR 1.69 (0.93-1.08) H 10/08/17 05:00 APTT 33.5 Seconds (25.1-36.5) 10/06/17 04:45 Attending/Attestation - Attestation I have personally seen and examined this patient.: Yes I have fully participated in the care of the patient.: Yes I have reviewed all pertinent clinical information, including history, physical exam and plan: Yes Notes (Text): 10/08/17 16:25 attending note; Patient seen and examined with resident in ICU. Patient is a 62 year old male with history of Cryptogenic cirrhosis, former smoker, former alcohol abuser, HTN, CHF (EF~45-50%), afib recently cardioverted to normal sinus rhythm, CAD s/p bare metal stent on aspirin as admitted with GI bleed. The patient was discharged yesterday. Active GI bleed; most likely secondary to esophageal varices and portal gastropathy. status post EGD and banding x9. Currently no significant active bleeding . Status post blood /FFP transfusion . GI evaluation appreciated . Continue IV Protonix drip, and octreotide drip. Aspirin on hold. Patient already completed 4 weeks of Plavix therapy. Hypotension: Currently on low-dose Levophed. Taper and continuous tolerated. hepatic encephalopathy; continue to GI bleed. We will start lactulose and rifaximin. Abdominal ultrasound showed significant ascites.s/p paracentesis.cultures negative so far . Continue IV meropenem. Case discussed with patient's partner Nuno in detail. Patient will be referred to [facility] hepatology/transplant clinic. Upon discharge patient will follow up with Dr Lew.
[2017-10-07 10:06] LABS: INR 1.76 (0.93-1.08)
[2017-10-07] MEDS: Albumin Human 25% (12.5 gm/50 ml) IV SCH ×3 (10:30→22:40)
[2017-10-07] MEDS: Meropenem 1 GM in Dextrose 5% In Water 100 ML IVPB SCH ×2 (10:40→21:59)
--- NOTE | 2017-10-07 10:52 | CP.PCM.PN ---
Subjective - Date & Time of Evaluation Date of Evaluation: 10/07/17 Time of Evaluation: 09:50 - Subjective Subjective: Patient feels a little better, no fevers overnight, abdominal pain is improved, no hematemesis overnight, with maroon-colored stools this morning. Objective - Vital Signs/Intake and Output Vital Signs (last 24 hours): Temp Pulse Resp BP Pulse Ox 99.5 F 93 H 21 121/69 97 10/07/17 04:00 10/07/17 06:30 10/07/17 06:30 10/07/17 06:30 10/07/17 06:30 Intake and Output: 10/07/17 10/07/17 06:59 18:59 Intake Total 1714.5 Output Total 750 Balance 964.5 - Medications Medications: Current Medications Aspirin (Ecotrin) 81 mg PO DAILY [facility] Last Admin: 10/06/17 15:40 Dose: Not Given Pantoprazole Sodium (Protonix 40mg Ivpb) 40 mg in 100 mls @ 20 mls/hr IVPB .Q5H [facility] Last Admin: 10/07/17 01:45 Dose: 20 mls/hr Octreotide Acetate 1,250 mcg/ (Sodium Chloride) 252.5 mls @ 5.05 mls/hr IV .Q24H [facility]; 25 MCG/HR PRN Reason: Protocol Last Admin: 10/07/17 05:30 Dose: 50 mcg/hr, 10.1 mls/hr NOREPINEPHRINE BIT/0.9 % NACL (Levophed 4 Mg/ 250 Ml Ns Premixed) 4 mg in 250 mls @ 15 mls/hr IV .[id number] PRN; Protocol; 4 MCG/MIN PRN Reason: TITRATE PER MD ORDER Last Admin: 10/06/17 23:49 Dose: 5 mcg/min, 18.75 mls/hr Vasopressin 20 units/ Sodium (Chloride) 101 mls @ 9.09 mls/hr IV .[id number] [facility]; 0.03 U/MIN PRN Reason: Protocol Last Admin: 10/06/17 15:41 Dose: Not Given Meropenem 1 gm/ Dextrose 100 mls @ 100 mls/hr IVPB Q12 [facility] PRN Reason: Protocol Last Admin: 10/06/17 22:30 Dose: 100 mls/hr Lactulose (Generlac) 200 gm VT Q8 [facility] Last Admin: 10/07/17 06:10 Dose: Not Given Ondansetron HCl (Zofran Inj) 4 mg IVP Q4H PRN PRN Reason: Nausea/Vomiting Last Admin: 10/06/17 09:50 Dose: 4 mg - Labs Labs: 10/07/17 05:30 10/07/17 05:30 PT 17.2 SECONDS (9.4-12.5) H 10/06/17 04:45 INR 1.55 (0.93-1.08) H 10/06/17 04:45 APTT 33.5 Seconds (25.1-36.5) 10/06/17 04:45 - Constitutional Appears: Cachectic, Chronically Ill - Head Exam Head Exam: NORMAL INSPECTION - Neck Exam Neck Exam: absent: Meningismus - Respiratory Exam Respiratory Exam: Decreased Breath Sounds - Cardiovascular Exam Cardiovascular Exam: +S1, +S2 - GI/Abdominal Exam GI & Abdominal Exam: Soft. 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
--- NOTE | 2017-10-07 11:21 | CP.PCM.PN ---
Subjective - Date & Time of Evaluation Date of Evaluation: 10/07/17 Time of Evaluation: 09:00 - Subjective Subjective: Alert, oriented. Offers no complaints Objective - Vital Signs/Intake and Output Vital Signs (last 24 hours): Temp Pulse Resp BP Pulse Ox 99.5 F 86 19 108/59 L 99 10/07/17 04:00 10/07/17 10:40 10/07/17 10:40 10/07/17 10:30 10/07/17 10:40 Intake and Output: 10/07/17 10/07/17 06:59 18:59 Intake Total 1714.5 168 Output Total 750 Balance 964.5 168 - Medications Medications: Current Medications Albumin Human (Albumin Human 25% (12.5 Gm/50 Ml)) 12.5 gm IV Q6H [facility] Stop: 10/07/17 21:31 Last Admin: 10/07/17 10:30 Dose: 12.5 gm Octreotide Acetate 1,250 mcg/ (Sodium Chloride) 252.5 mls @ 5.05 mls/hr IV .Q24H [facility]; 25 MCG/HR PRN Reason: Protocol Last Admin: 10/07/17 05:30 Dose: 50 mcg/hr, 10.1 mls/hr NOREPINEPHRINE BIT/0.9 % NACL (Levophed 4 Mg/ 250 Ml Ns Premixed) 4 mg in 250 mls @ 15 mls/hr IV .[id number] PRN; Protocol; 4 MCG/MIN PRN Reason: TITRATE PER MD ORDER Last Titration: 10/07/17 09:30 Dose: 0 mcg/min, 0 mls/hr Meropenem 1 gm/ Dextrose 100 mls @ 100 mls/hr IVPB Q12 [facility] PRN Reason: Protocol Last Admin: 10/07/17 10:40 Dose: 100 mls/hr Lactulose (Enulose) 20 gm PO BID [facility] Last Admin: 10/07/17 10:32 Dose: Not Given Midodrine (Proamatine) 5 mg PO TID [facility] Last Admin: 10/07/17 10:40 Dose: 5 mg Ondansetron HCl (Zofran Inj) 4 mg IVP Q4H PRN PRN Reason: Nausea/Vomiting Last Admin: 10/06/17 09:50 Dose: 4 mg Pantoprazole Sodium (Protonix Inj) 40 mg IVP BID [facility] Last Admin: 10/07/17 10:39 Dose: 40 mg Rifaximin (Xifaxan) 550 mg PO BID [facility] PRN Reason: Protocol Last Admin: 10/07/17 10:40 Dose: 550 mg - Labs Labs: 10/07/17 05:30 10/07/17 05:30 PT 19.6 SECONDS (9.4-12.5) H 10/07/17 09:30 INR 1.76 (0.93-1.08) H 10/07/17 09:30 APTT 33.5 Seconds (25.1-36.5) 10/06/17 04:45 - Constitutional Appears: Cachectic, Chronically Ill - Head Exam Head Exam: NORMAL INSPECTION - Eye Exam Eye Exam: Normal appearance, PERRL - ENT Exam ENT Exam: Mucous Membranes Moist - Neck Exam Neck Exam: Normal Inspection - Respiratory Exam Respiratory Exam: Decreased Breath Sounds, NORMAL BREATHING PATTERN - Cardiovascular Exam Cardiovascular Exam: REGULAR RHYTHM, +S1, +S2 - GI/Abdominal Exam GI & Abdominal Exam: Distended, Soft, Normal Bowel Sounds - Extremities Exam Extremities Exam: Normal Capillary Refill, Pedal Edema - Back Exam Back Exam: NORMAL INSPECTION - Skin Skin Exam: Dry, Pallor Assessment and Plan - Assessment and Plan (Free Text) Assessment: 62 year old male with history of TRUJILLO, ascites who was admitted with hematemeis , anemia,s/p banding for esophageal varices,melena. The patient is awake and alert. Offers no complaints. He and I discussed the terms of his Advance Directive. I explained that although quite ill currently he is not immanently terminal or incurable. Patient states that he wants to pursue liver transplant work up in order to determine whether he is a candidate for transplant. I encouraged him to do so. I then explained that if her were not a candidate for transplant that his status would become incurable. I had the same discussion with his partner/health care surrogate, Guillermo Flores in patient presence. Mr Flores understand the situation and is supportive of the patient seeking evaluation for organ transplant at [facility]. Time spent with patient and partner in goals of care discussion and advance care planning, 40 minutes Plan: Palliative support. Gaols of care and advance care planning
[2017-10-07 15:44] LABS: BASO # 0.05 K/mm3 (0.0-2.0); BASO % 0.5 % (0.0-3.0); EOS # 0.1 (0.0-0.7); EOS % 1.3 % (1.5-5.0); GRAN # 6.59 (1.4-6.5); GRAN % 70.8 % (50.0-68.0); LYMPH # 1.4 (1.2-3.4); MEAN CELL VOLUME 90.6 fl (80.0-105.0); MEAN CORPUSCULAR HEMOGLOBIN 31.6 pg (25.0-35.0); MEAN CORPUSCULAR HGB CONC 34.9 g/dl (31.0-37.0); MEAN PLATELET VOLUME 9.1 fl (7.0-11.0); MONO # 1.2 (0.1-0.6); MONO % 12.4 % (1.0-6.0); RED CELL DISTRIBUTION WIDTH 20.4 % (11.5-14.5); WHITE BLOOD COUNT 9.3 10^3/ul (4.5-11.0)
[2017-10-07 15:53] LABS: HEMATOCRIT 23.2 % (42.0-52.0)
[2017-10-07] MEDS ORDERED: Morphine 2 mg/ml ISec IVP ONE (21:00)
[2017-10-08 06:15] LABS: BASO # 0.03 K/mm3 (0.0-2.0); BASO % 0.4 % (0.0-3.0); EOS # 0.1 (0.0-0.7); EOS % 1.4 % (1.5-5.0); GRAN # 5.94 (1.4-6.5); GRAN % 73.2 % (50.0-68.0); LYMPH # 1.1 (1.2-3.4); LYMPH % 13.5 % (22.0-35.0); MEAN CELL VOLUME 92.3 fl (80.0-105.0); MEAN CORPUSCULAR HEMOGLOBIN 31.3 pg (25.0-35.0); MEAN CORPUSCULAR HGB CONC 33.9 g/dl (31.0-37.0); MEAN PLATELET VOLUME 9.2 fl (7.0-11.0); MONO # 0.9 (0.1-0.6); MONO % 11.5 % (1.0-6.0); RED CELL DISTRIBUTION WIDTH 20.3 % (11.5-14.5); WHITE BLOOD COUNT 8.1 10^3/ul (4.5-11.0)
[2017-10-08 06:27] LABS: INR 1.69 (0.93-1.08)
[2017-10-08 06:34] LABS: HEMATOCRIT 22.7 % (42.0-52.0)
[2017-10-08 06:39] LABS: ALKALINE PHOSPHATASE 91 U/L (38-126); ALT/SGPT 79 U/L (7-56); AST/SGOT 120 U/L (17-59); BILIRUBIN,TOTAL 3.2 mg/dL (0.2-1.3); BLOOD UREA NITROGEN 41 mg/dL (7-21); CALCIUM 8.5 mg/dL (8.4-10.5); CARBON DIOXIDE 23 mmol/L (21-33); CHLORIDE 115 mmol/L (98-107); GFR AFRICAN-AMERICAN > 60; GLUCOSE,RANDOM 137 mg/dL (70-110); PHOSPHOROUS 1.9 mg/dL (2.5-4.5); POTASSIUM 4.1 mmol/L (3.6-5.0); SODIUM 145 mmol/L (132-148)
--- NOTE | 2017-10-08 07:33 | CP.PCM.PN ---
<Kalani Gonzalez - Last Filed: 10/08/17 09:25> Subjective - Date & Time of Evaluation Date of Evaluation: 10/08/17 Time of Evaluation: 06:45 - Subjective Subjective: GI Fellow PGY4 Progress Note Pt seen and evaluated at beside, pt overnight had 4 dark stools with no further episodes of hematemesis. Pt is tolerating clear liquid diet with no nausea, vomiting or chest pain. Pt is more alert, awake and oriented today. ROS: A 12pt ROS was negative except as above. Objective - Vital Signs/Intake and Output Vital Signs (last 24 hours): Temp Pulse Resp BP Pulse Ox 99.1 F 73 16 107/56 L 100 10/08/17 04:00 10/08/17 06:00 10/08/17 06:00 10/08/17 06:00 10/07/17 16:15 Intake and Output: 10/08/17 10/08/17 06:59 18:59 Intake Total 652.5 Output Total 604 Balance 48.5 - Medications Medications: Current Medications Aspirin (Ecotrin) 81 mg PO DAILY [facility] Octreotide Acetate 1,250 mcg/ (Sodium Chloride) 252.5 mls @ 5.05 mls/hr IV .Q24H [facility]; 25 MCG/HR PRN Reason: Protocol Last Admin: 10/08/17 05:13 Dose: 50 mcg/hr, 10.1 mls/hr NOREPINEPHRINE BIT/0.9 % NACL (Levophed 4 Mg/ 250 Ml Ns Premixed) 4 mg in 250 mls @ 15 mls/hr IV .[id number] PRN; Protocol; 4 MCG/MIN PRN Reason: TITRATE PER MD ORDER Last Titration: 10/07/17 09:30 Dose: 0 mcg/min, 0 mls/hr Meropenem 1 gm/ Dextrose 100 mls @ 100 mls/hr IVPB Q12 [facility] PRN Reason: Protocol Last Admin: 10/07/17 21:59 Dose: 100 mls/hr Lactulose (Enulose) 20 gm PO BID [facility] Last Admin: 10/07/17 18:59 Dose: Not Given Midodrine (Proamatine) 5 mg PO TID [facility] Last Admin: 10/07/17 18:59 Dose: 5 mg Ondansetron HCl (Zofran Inj) 4 mg IVP Q4H PRN PRN Reason: Nausea/Vomiting Last Admin: 10/06/17 09:50 Dose: 4 mg Pantoprazole Sodium (Protonix Inj) 40 mg IVP BID [facility] Last Admin: 10/07/17 19:00 Dose: 40 mg Rifaximin (Xifaxan) 550 mg PO BID [facility] PRN Reason: Protocol Last Admin: 10/07/17 19:00 Dose: 550 mg - Labs Labs: 10/08/17 05:00 10/08/17 05:00 PT 18.8 SECONDS (9.4-12.5) H 10/08/17 05:00 INR 1.69 (0.93-1.08) H 10/08/17 05:00 APTT 33.5 Seconds (25.1-36.5) 10/06/17 04:45 Assessment and Plan - Assessment and Plan (Free Text) Assessment: This is a 62yM presenting with acute onset of hematemesis and anemia. 1. UGIB Variceal 2. Anemia 3. Decompensated cirrhosis MELD 24 on admission, MELD 19 today 4. Hx of GI bleeding 5. CAD s/p bare metal [id number] ago 6. Hx of Acites s/p 7L paracentesis 10/04/17 7. Hx of HE 8. KEYUR Plan: -Continue supportive care with close monitoring -Active UGIB with hematemesis which has resolved now but pt continues to have melena -s/p emergent endoscopy with 9 variceal banding in distal and midesophagus, unable to clearly view gastric cardia due to blood for other etiology of GI bleeding like PUD -Pt has large varices in proximal esophagus, recommend further imaging to r/o SVC stenosis, may need CT once Cr better -Continue IV Octreotide drip 50mcg/hr for total 72hrs -Can change IV PPI drip to PPI daily -Full liquid diet today -Hold diuretics with KEYUR, UA and urine electrolytes pending, Cr improving -Continue lactulose and rifaxamin for HE prevention -Can restart nadolol once hemodynamically stable per ICU team -Pt's s/p recent paracentesis with no SBP, can narrow abx to IV Ceftriaxone for UGIB for total 7 days but will defer to primary team -Pt with ascites, will need repeat paracentesis prior to hospital discharge -Abdominal US concerning for adherent thrombus in portal vein causing small caliber without obstruction of portal vein -Do not recommend holding aspirin or plavix with recent cardiac cath and bare metal stent placement -Pt transfused 4U PRBCs, Hgb stable, monitor H/H, hold 2U PRBCs -Will need repeat EGD as an outpt in 6 weeks to evaluated eradication of varices and colonoscopy for CRC screening -Will need Liver triple phase for HCC screening -Will continue to follow pt closely -Case discussed with ICU team <Pedro Paige - Last Filed: 10/08/17 14:33> Objective - Vital Signs/Intake and Output Vital Signs (last 24 hours): Temp Pulse Resp BP Pulse Ox 99.1 F 70 15 106/51 L 100 10/08/17 04:00 10/08/17 10:50 10/08/17 10:50 10/08/17 10:45 10/08/17 10:50 Intake and Output: 10/08/17 10/08/17 06:59 18:59 Intake Total 652.5 Output Total 604 Balance 48.5 - Medications Medications: Current Medications Aspirin (Ecotrin) 81 mg PO DAILY [facility] Last Admin: 10/08/17 09:24 Dose: 81 mg Octreotide Acetate 1,250 mcg/ (Sodium Chloride) 252.5 mls @ 5.05 mls/hr IV .Q24H [facility]; 25 MCG/HR PRN Reason: Protocol Last Admin: 10/08/17 05:13 Dose: 50 mcg/hr, 10.1 mls/hr NOREPINEPHRINE BIT/0.9 % NACL (Levophed 4 Mg/ 250 Ml Ns Premixed) 4 mg in 250 mls @ 15 mls/hr IV .[id number] PRN; Protocol; 4 MCG/MIN PRN Reason: TITRATE PER MD ORDER Last Titration: 10/07/17 09:30 Dose: 0 mcg/min, 0 mls/hr Ceftriaxone Sodium (Rocephin 1 Gram Ivpb) 1 gm in 100 mls @ 100 mls/hr IVPB DAILY [facility] PRN Reason: Protocol Last Admin: 10/08/17 14:14 Dose: 100 mls/hr Lactulose (Enulose) 20 gm PO BID [facility] Last Admin: 10/08/17 09:24 Dose: Not Given Midodrine (Proamatine) 5 mg PO TID [facility] Last Admin: 10/08/17 14:14 Dose: 5 mg Ondansetron HCl (Zofran Inj) 4 mg IVP Q4H PRN PRN Reason: Nausea/Vomiting Last Admin: 10/06/17 09:50 Dose: 4 mg Pantoprazole Sodium (Protonix Inj) 40 mg IVP BID [facility] Last Admin: 10/08/17 09:23 Dose: 40 mg Potassium Phos/Sodium Phos (Neutra-Phos) 1 pkt PO BID [facility] Rifaximin (Xifaxan) 550 mg PO BID [facility] PRN Reason: Protocol Last Admin: 10/08/17 09:23 Dose: 550 mg - Labs Labs: 10/08/17 05:00 10/08/17 05:00 PT 18.8 SECONDS (9.4-12.5) H 10/08/17 05:00 INR 1.69 (0.93-1.08) H 10/08/17 05:00 APTT 33.5 Seconds (25.1-36.5) 10/06/17 04:45 Attending/Attestation - Attestation I have personally seen and examined this patient.: Yes I have fully participated in the care of the patient.: Yes I have reviewed all pertinent clinical information, including history, physical exam and plan: Yes Notes (Text): 10/08/17 14:31 62 year old male with h/o Cirrhosis c/b ascites, HE, h/o CAD s/p BMS 1 month ago admitted with hematemesis. 1. Esophageal varices 2. Decompensated cirrhosis 3. Ascites 4. Acute renal failure 5. Hepatic encephalopathy Plan: -continue abx for sbp prophylaxis -continue octreotide today -continue lactulose/rifaxamin -advance to soft diet -supportive measures -give additional albumin today for likely pre-renal insufficiency -monitor for further bleeding
--- NOTE | 2017-10-08 09:16 | CP.PCM.PN ---
<Miracle Campbell - Last Filed: 10/08/17 12:16> Subjective - Date & Time of Evaluation Date of Evaluation: 10/08/17 Time of Evaluation: 08:50 - Subjective Subjective: Medicine progress note for hospitalist service- Dr Rosales. Patient with no acute events overnight. As per nurser patient has 4 episodes of melanotic stool, no hematemesis. Patient reported no nausea, vomiting or diarrhea. Patient is tolerating liquid diet. Denies dizziness, fever or chills. Reports the abdomen feels sore at the site of the paracentesis. Otherwise no sp , or sob. Objective - Vital Signs/Intake and Output Vital Signs (last 24 hours): Temp Pulse Resp BP Pulse Ox 99.1 F 73 16 107/56 L 100 10/08/17 04:00 10/08/17 06:00 10/08/17 06:00 10/08/17 06:00 10/07/17 16:15 Intake and Output: 10/08/17 10/08/17 06:59 18:59 Intake Total 652.5 Output Total 604 Balance 48.5 - Medications Medications: Current Medications Aspirin (Ecotrin) 81 mg PO DAILY [facility] Octreotide Acetate 1,250 mcg/ (Sodium Chloride) 252.5 mls @ 5.05 mls/hr IV .Q24H [facility]; 25 MCG/HR PRN Reason: Protocol Last Admin: 10/08/17 05:13 Dose: 50 mcg/hr, 10.1 mls/hr NOREPINEPHRINE BIT/0.9 % NACL (Levophed 4 Mg/ 250 Ml Ns Premixed) 4 mg in 250 mls @ 15 mls/hr IV .[id number] PRN; Protocol; 4 MCG/MIN PRN Reason: TITRATE PER MD ORDER Last Titration: 10/07/17 09:30 Dose: 0 mcg/min, 0 mls/hr Meropenem 1 gm/ Dextrose 100 mls @ 100 mls/hr IVPB Q12 [facility] PRN Reason: Protocol Last Admin: 10/07/17 21:59 Dose: 100 mls/hr Lactulose (Enulose) 20 gm PO BID [facility] Last Admin: 10/07/17 18:59 Dose: Not Given Midodrine (Proamatine) 5 mg PO TID [facility] Last Admin: 10/07/17 18:59 Dose: 5 mg Ondansetron HCl (Zofran Inj) 4 mg IVP Q4H PRN PRN Reason: Nausea/Vomiting Last Admin: 10/06/17 09:50 Dose: 4 mg Pantoprazole Sodium (Protonix Inj) 40 mg IVP BID [facility] Last Admin: 10/07/17 19:00 Dose: 40 mg Rifaximin (Xifaxan) 550 mg PO BID [facility] PRN Reason: Protocol Last Admin: 10/07/17 19:00 Dose: 550 mg - Labs Labs: 10/08/17 05:00 10/08/17 05:00 PT 18.8 SECONDS (9.4-12.5) H 10/08/17 05:00 INR 1.69 (0.93-1.08) H 10/08/17 05:00 APTT 33.5 Seconds (25.1-36.5) 10/06/17 04:45 - Constitutional Appears: No Acute Distress, Older Than Stated Age, Cachectic, Chronically Ill - Head Exam Head Exam: ATRAUMATIC, NORMAL INSPECTION, NORMOCEPHALIC - Eye Exam Eye Exam: EOMI, Normal appearance, PERRL, Scleral icterus (pale sclera) Pupil Exam: NORMAL ACCOMODATION - ENT Exam ENT Exam: Mucous Membranes Moist - Neck Exam Neck Exam: Normal Inspection - Respiratory Exam Respiratory Exam: Clear to Ausculation Bilateral, NORMAL BREATHING PATTERN. absent: Decreased Breath Sounds, Rales, Rhonchi, Wheezes, Respiratory Distress, Stridor - Cardiovascular Exam Cardiovascular Exam: REGULAR RHYTHM, RRR, +S1, +S2. absent: Gallop, JVD, Rubs, Murmur - GI/Abdominal Exam GI & Abdominal Exam: Distended (mildly ), Tenderness (At the site of paracentesis.), Normal Bowel Sounds, Organomegaly. absent: Firm, Guarding, Rigid, Rebound - Extremities Exam Extremities Exam: Normal Inspection. absent: Pedal Edema - Neurological Exam Neurological Exam: Alert, Awake, Oriented x3 - Psychiatric Exam Psychiatric exam: Normal Affect, Normal Mood - Skin Skin Exam: Dry, Intact, Warm Additional comments: + jaundice. Assessment and Plan - Assessment and Plan (Free Text) Assessment: Patient is a 62 year old male with past medical history of TRUJILLO, afib s/p cardioversion, HTN, GERD, CHF whom presented with hematemesis and was found to have ascites s/p paracentesis and anemia s/p 4 units of prbc transfusions and EGD with 9 gastric banding. Plan: 1) Hematemesis secondary to variceal bleeding due to decompensated cirrhosis - S/p EGD with 9 variceal banding in the distal and midesophagus - S/p transfusions with 4 units of prbc and a unit of platelet. - Will continue with octreotide drip and protonix as per Gi. - Patient will need Nadolol once hemodynamically stable as per gi. - Gi following, recommending outpatient EGD and colonoscopy in 6 weeks. 2) Anemia due to Gi bleeding - S/p 4 units of prbc transfused - H/H remains stable at 7.7/22.7 - Hematemesis has resolved, although reported melanotic stool ( likely residual) - will continue to monitor for now. 3) SIRS in the setting of ascites - SBP was ruled out - Cultures with so far no growth - Afebrile and leukocysotis trended down. - ID following - Will continue with rocephin as per ID 4) Decompensated liver cirrhosis with ascites with h/o TRUJILLO - s/p therapeutic and diagnostic paracentesis, on admission, removed 7 litters. - Patient was giving albumin - MELD score was 24, now 19 - Will continue to trend LFTs. - Patient will need to follow up with [facility] upon discharge. 5) KEYUR due to ATN from hemorrhagic shock - Creatinine continues to improve - Nephrology following 6) Hepatic encephalopathy with transient AMS - Mental status improved - Ammonia levels also trended - will continue Rifaximin 550mg po bid - Patient is also on lactulose. 7) Hemorrhagic shock likely due to Gi bleed. - Patient is currently off of levophed drip - BP remains stable with po midodrine - Will continue to maintain MAP above 65. 8) History A-fib s/p cardioversion - Currently NSR with prolonged QT - will continue to monitor. 9) CAD s/p bare metal stent - Retarted on asa - plavix on hold due to thrombocytopenia and Gi bleed. 10) Diastolic CHF- Currently stable, will continue to monitor. 9) On protonix and compressive devices for GI and DVT prophylaxis. Patient seen, examined and case discussed with the attending. <Felicita Rosales - Last Filed: 10/08/17 16:38> Objective - Vital Signs/Intake and Output Vital Signs (last 24 hours): Temp Pulse Resp BP Pulse Ox 99.1 F 63 15 106/51 L 100 10/08/17 04:00 10/08/17 14:45 10/08/17 14:45 10/08/17 14:45 10/08/17 14:45 Intake and Output: 10/08/17 10/08/17 06:59 18:59 Intake Total 652.5 Output Total 604 Balance 48.5 - Medications Medications: Current Medications Aspirin (Ecotrin) 81 mg PO DAILY [facility] Last Admin: 10/08/17 09:24 Dose: 81 mg Octreotide Acetate 1,250 mcg/ (Sodium Chloride) 252.5 mls @ 5.05 mls/hr IV .Q24H [facility]; 25 MCG/HR PRN Reason: Protocol Last Admin: 10/08/17 05:13 Dose: 50 mcg/hr, 10.1 mls/hr NOREPINEPHRINE BIT/0.9 % NACL (Levophed 4 Mg/ 250 Ml Ns Premixed) 4 mg in 250 mls @ 15 mls/hr IV .[id number] PRN; Protocol; 4 MCG/MIN PRN Reason: TITRATE PER MD ORDER Last Titration: 10/07/17 09:30 Dose: 0 mcg/min, 0 mls/hr Ceftriaxone Sodium (Rocephin 1 Gram Ivpb) 1 gm in 100 mls @ 100 mls/hr IVPB DAILY [facility] PRN Reason: Protocol Last Admin: 10/08/17 14:14 Dose: 100 mls/hr Lactulose (Enulose) 20 gm PO BID [facility] Last Admin: 10/08/17 09:24 Dose: Not Given Midodrine (Proamatine) 5 mg PO TID [facility] Last Admin: 10/08/17 14:14 Dose: 5 mg Ondansetron HCl (Zofran Inj) 4 mg IVP Q4H PRN PRN Reason: Nausea/Vomiting Last Admin: 10/06/17 09:50 Dose: 4 mg Pantoprazole Sodium (Protonix Inj) 40 mg IVP BID [facility] Last Admin: 10/08/17 09:23 Dose: 40 mg Potassium Phos/Sodium Phos (Neutra-Phos) 1 pkt PO BID [facility] Rifaximin (Xifaxan) 550 mg PO BID [facility] PRN Reason: Protocol Last Admin: 10/08/17 09:23 Dose: 550 mg - Labs Labs: 10/08/17 05:00 10/08/17 05:00 PT 18.8 SECONDS (9.4-12.5) H 10/08/17 05:00 INR 1.69 (0.93-1.08) H 10/08/17 05:00 APTT 33.5 Seconds (25.1-36.5) 10/06/17 04:45 Attending/Attestation - Attestation I have personally seen and examined this patient.: Yes I have fully participated in the care of the patient.: Yes I have reviewed all pertinent clinical information, including history, physical exam and plan: Yes Notes (Text): 10/08/17 16:36 Attending note; Patient seen and examined with resident in ICU. Patient is a 62 year old male with history of Cryptogenic cirrhosis, former smoker, former alcohol abuser, HTN, CHF (EF~45-50%), afib recently cardioverted to normal sinus rhythm, CAD s/p bare metal stent on aspirin as admitted with GI bleed. Active GI bleed; most likely secondary to esophageal varices and portal gastropathy. status post EGD and banding x9. Currently no significant active bleeding. Tolerating liquid diet. No hematemesis. Had few melanotic stool yesterday. Denies any nausea, vomiting. Continue IV Protonix drip, and octreotide drip. Started on Ecotrin .Patient already completed 4 weeks of Plavix therapy. Hypotension: Resolved .discontinue Levophed . hepatic encephalopathy; improving. Continue lactulose and rifaximin. Patient will be referred to [facility] hepatology/transplant clinic. The diagnosis, follow-up plan and prognosis discussed with patient and patient' s partner in detail. Upon discharge patient will follow up with Dr Lew.
[2017-10-08] MEDS: Meropenem 1 GM in Dextrose 5% In Water 100 ML IVPB SCH (09:23)
--- NOTE | 2017-10-08 10:23 | CP.CCUPN ---
<Steven Dixon - Last Filed: 10/08/17 14:56> CCU Subjective - Physician Review Subjective (Free Text): Patient seen and examined at bedside. Resting comfortably in bed. Experienced four additional bouts of dark maroon colored stools overnight. Offers no new complaints at this time. Denies fever, chills, chest pain, shortness of breath, abdominal pain, constipation, and urinary symptoms. 10/08/17 10:19 CCU Objective - Vital Signs / Intake & Output Intake and Output (Last 8hrs): Intake & Output 10/07/17 10/08/17 10/08/17 22:59 06:59 14:59 Intake Total 460 652.5 Output Total 750 604 Balance -290 48.5 Intake: IV 60 252.5 Right Hand 60 Oral 400 300 Albumin 100 Output: Urine 750 600 2-way Urethral 750 600 Stool 4 Other: # Bowel Movements 1 - Physical Exam Head: Positive for: Atraumatic, Normocephalic Pupils: Positive for: PERRL Extroacular Muscles: Positive for: EOMI Conjunctiva: Positive for: Normal Mouth: Positive for: Moist Mucous Membranes Neck: Positive for: Normal Range of Motion Respiratory/Chest: Positive for: Clear to Auscultation, Good Air Exchange. Negative for: Respiratory Distress, Accessory Muscle Use Cardiovascular: Positive for: Regular Rate and Rhythm, Normal S1, S2. Negative for: Murmurs Abdomen: Positive for: Normal Bowel Sounds. Negative for: Tenderness, Distention, Peritoneal Signs Upper Extremity: Positive for: Normal Inspection. Negative for: Cyanosis, Edema Lower Extremity: Positive for: Normal Inspection. Negative for: Edema Neurological: Positive for: GCS=15, CN II-XII Intact, Speech Normal Skin: Positive for: Warm, Dry, Pale. Negative for: Rashes, Normal Color Psychiatric: Positive for: Alert, Oriented x 3, Normal Insight, Normal Concentration - Medications Active Medications: Active Medications Generic Name Dose Route Start Last Admin Trade Name Freq PRN Reason Stop Dose Admin Aspirin 81 mg 10/08/17 10:00 10/08/17 09:24 Ecotrin PO 81 mg DAILY BIBIANA Administration Octreotide Acetate 1,250 mcg/ 252.5 mls @ 5.05 mls/hr 10/06/17 04:45 05:13 Sodium Chloride IV 50 mcg/hr .Q24H BIBIANA 10.1 mls/hr Protocol Administration 25 MCG/HR NOREPINEPHRINE BIT/0.9 % NACL 4 mg in 250 mls @ 15 mls/hr 10/06/17 05:34 09:30 Levophed 4 Mg/ 250 Ml Ns Premixed IV 0 mcg/min .[id number] PRN 0 mls/hr TITRATE PER MD ORDER Titration Protocol 4 MCG/MIN Meropenem 1 gm/ Dextrose 100 mls @ 100 mls/hr 10/06/17 16:06 10/08/17 09:23 IVPB 100 mls/hr Q12 BIBIANA Administration Protocol Lactulose 20 gm 10/07/17 10:00 10/08/17 09:24 Enulose PO Not Given BID BIBIANA Midodrine 5 mg 10/07/17 10:00 10/08/17 09:24 Proamatine PO 5 mg TID BIBIANA Administration Ondansetron HCl 4 mg 10/06/17 09:38 10/06/17 09:50 Zofran Inj IVP 4 mg Q4H PRN Administration Nausea/Vomiting Pantoprazole Sodium 40 mg 10/07/17 10:00 10/08/17 09:23 Protonix Inj IVP 40 mg BID BIBIANA Administration Rifaximin 550 mg 10/07/17 10:00 10/08/17 09:23 Xifaxan PO 550 mg BID BIBIANA Administration Protocol - Patient Studies Lab Studies: Microbiology Studies 10/06/17 08:08 Blood Culture - Preliminary Blood-Venous NO GROWTH AFTER 48 HOURS 10/06/17 07:35 Blood Culture - Preliminary Blood-Venous NO GROWTH AFTER 48 HOURS 10/06/17 09:23 MRSA Culture (Admit) - Final Naris MRSA NOT DETECTED 10/06/17 18:00 Urine Culture - Final Urine,Russell No Growth (<1,000 CFU/ML) Lab Studies 10/08/17 10/08/17 10/08/17 Range/Units 05:00 05:00 05:00 WBC 8.1 (4.5-11.0) 10^3/ul RBC 2.46 L (3.5-6.1) 10^6/uL Hgb 7.7 L (14.0-18.0) g/dL Hct 22.7 L (42.0-52.0) % MCV 92.3 (80.0-105.0) fl MCH 31.3 (25.0-35.0) pg MCHC 33.9 (31.0-37.0) g/dl RDW 20.3 H (11.5-14.5) % Plt Count 82 L (120.0-450.0) 10^3/uL MPV 9.2 (7.0-11.0) fl Gran % 73.2 H (50.0-68.0) % Lymph % (Auto) 13.5 L (22.0-35.0) % Kendall % (Auto) 11.5 H (1.0-6.0) % Eos % (Auto) 1.4 L (1.5-5.0) % Baso % (Auto) 0.4 (0.0-3.0) % Gran # 5.94 (1.4-6.5) Lymph # 1.1 L (1.2-3.4) Kendall # 0.9 H (0.1-0.6) Eos # 0.1 (0.0-0.7) Baso # 0.03 (0.0-2.0) K/mm3 PT 18.8 H (9.4-12.5) SECONDS INR 1.69 H (0.93-1.08) Sodium 145 (132-148) mmol/L Potassium 4.1 (3.6-5.0) mmol/L Chloride 115 H (98-107) mmol/L Carbon Dioxide 23 (21-33) mmol/L Anion Gap 11 (10-20) BUN 41 H (7-21) mg/dL Creatinine 1.3 (0.8-1.5) mg/dl Est GFR ( Amer) > 60 Est GFR (Non-Af Amer) 56 Random Glucose 137 H (70-110) mg/dL Calcium 8.5 (8.4-10.5) mg/dL Phosphorus 1.9 L (2.5-4.5) mg/dL Magnesium 2.0 (1.7-2.2) mg/dL Total Bilirubin 3.2 H (0.2-1.3) mg/dL AST 120 H D (17-59) U/L ALT 79 H (7-56) U/L Alkaline Phosphatase 91 (38-126) U/L Total Protein 6.0 (5.8-8.3) g/dL Albumin 2.9 L (3.0-4.8) g/dL Globulin 3.1 gm/dL Albumin/Globulin Ratio 1.0 L (1.1-1.8) IgG (700.0-1600.0) mg/dL 10/07/17 10/07/17 10/07/17 Range/Units 15:35 09:30 09:30 WBC 9.3 D (4.5-11.0) 10^3/ul RBC 2.56 L (3.5-6.1) 10^6/uL Hgb 8.1 L (14.0-18.0) g/dL Hct 23.2 L (42.0-52.0) % MCV 90.6 (80.0-105.0) fl MCH 31.6 (25.0-35.0) pg MCHC 34.9 (31.0-37.0) g/dl RDW 20.4 H (11.5-14.5) % Plt Count 74 L (120.0-450.0) 10^3/uL MPV 9.1 (7.0-11.0) fl Gran % 70.8 H (50.0-68.0) % Lymph % (Auto) 15.0 L (22.0-35.0) % Kendall % (Auto) 12.4 H (1.0-6.0) % Eos % (Auto) 1.3 L (1.5-5.0) % Baso % (Auto) 0.5 (0.0-3.0) % Gran # 6.59 H (1.4-6.5) Lymph # 1.4 (1.2-3.4) Kendall # 1.2 H (0.1-0.6) Eos # 0.1 (0.0-0.7) Baso # 0.05 (0.0-2.0) K/mm3 PT 19.6 H (9.4-12.5) SECONDS INR 1.76 H (0.93-1.08) Sodium (132-148) mmol/L Potassium (3.6-5.0) mmol/L Chloride (98-107) mmol/L Carbon Dioxide (21-33) mmol/L Anion Gap (10-20) BUN (7-21) mg/dL Creatinine (0.8-1.5) mg/dl Est GFR ( Amer) Est GFR (Non-Af Amer) Random Glucose (70-110) mg/dL Calcium (8.4-10.5) mg/dL Phosphorus (2.5-4.5) mg/dL Magnesium (1.7-2.2) mg/dL Total Bilirubin (0.2-1.3) mg/dL AST (17-59) U/L ALT (7-56) U/L Alkaline Phosphatase (38-126) U/L Total Protein (5.8-8.3) g/dL Albumin (3.0-4.8) g/dL Globulin gm/dL Albumin/Globulin Ratio (1.1-1.8) IgG 1543.5 (700.0-1600.0) mg/dL Laboratory Results - last 24 hr 10/07/17 10/07/17 10/07/17 09:30 09:30 15:35 WBC 9.3 D RBC 2.56 L Hgb 8.1 L Hct 23.2 L MCV 90.6 MCH 31.6 MCHC 34.9 RDW 20.4 H Plt Count 74 L MPV 9.1 Gran % 70.8 H Lymph % (Auto) 15.0 L Kendall % (Auto) 12.4 H Eos % (Auto) 1.3 L Baso % (Auto) 0.5 Gran # 6.59 H Lymph # 1.4 Kendall # 1.2 H Eos # 0.1 Baso # 0.05 PT 19.6 H INR 1.76 H Sodium Potassium Chloride Carbon Dioxide Anion Gap BUN Creatinine Est GFR ( Amer) Est GFR (Non-Af Amer) Random Glucose Calcium Phosphorus Magnesium Total Bilirubin AST ALT Alkaline Phosphatase Total Protein Albumin Globulin Albumin/Globulin Ratio IgG 1543.5 10/08/17 10/08/17 10/08/17 05:00 05:00 05:00 WBC 8.1 RBC 2.46 L Hgb 7.7 L Hct 22.7 L MCV 92.3 MCH 31.3 MCHC 33.9 RDW 20.3 H Plt Count 82 L MPV 9.2 Gran % 73.2 H Lymph % (Auto) 13.5 L Kendall % (Auto) 11.5 H Eos % (Auto) 1.4 L Baso % (Auto) 0.4 Gran # 5.94 Lymph # 1.1 L Kendall # 0.9 H Eos # 0.1 Baso # 0.03 PT 18.8 H INR 1.69 H Sodium 145 Potassium 4.1 Chloride 115 H Carbon Dioxide 23 Anion Gap 11 BUN 41 H Creatinine 1.3 Est GFR ( Amer) > 60 Est GFR (Non-Af Amer) 56 Random Glucose 137 H Calcium 8.5 Phosphorus 1.9 L Magnesium 2.0 Total Bilirubin 3.2 H AST 120 H D ALT 79 H Alkaline Phosphatase 91 Total Protein 6.0 Albumin 2.9 L Globulin 3.1 Albumin/Globulin Ratio 1.0 L IgG Review of Systems - Review of Systems Review of Systems: 12-point review of systems negative except as indicated in the HPI Critical Care Progress Note - Nutrition Nutrition: Nutrition Category Date Time Status Liquid Diet [DIET] Diets 10/06/17 Breakfast Ordered Assessment/Plan - Assessment and Plan (Free Text) Assessment: Patient is a 62 year old male with past medical history of TRUJILLO, afib s/p cardioversion, HTN, GERD, CHF who was admitted to the hospital for evaluation and treatment of bright red blood in emesis. Patient was found to have bleeding from esophageal varices and is s/p 9 bands. Plan: Neuro: Hepatic Encephalopathy- improving - Patient is awake, alert, responds to verbal stimuli, answers questions appropriately, follows commands, and moves extremities past midline - patient is refusing lactulose - benefits of medication explained to patient - continue with xifaxin Cardio: Hemorrhagic Shock and Component of Septic Shock - HR trended, reviewed, and appreciated, will continue to monitor closely - BPs trended, reviewed, and appreciated, will continue to monitor closely - patient is off of pressor support- continue to monitor off of pressors - continue to monitor vitals CHF; Afib - hold aspirin plavix and aldactone at this time Pulm: - keep SaO2 above 92% GI: UGIB; Decompensated cirrhosis; Ascities - EGD performed- variceal bleeding noted- 9 bands were placed - patient is s/p a total of 4 units pRBCs, 2 FFP, and 1 unit of platelets 2 units of pRBC being transfused - c/w protonix - c/w octreotide gtt - NPO - GI consulted,- appreciate recommendations Elevated LFTs and T. bili - will continue to monitor via CMP Renal/Electrolytes: KEYUR likely due to Intravascular Depletion - creatinine and BUN trended, reviewed, and appreciated, will continue to monitor closely- improving - nephrology consulted- appreciate recommendations Endo: - keep patient euglycemic Heme: Anemia - Hgbs trended, reviewed, and appreciated, will continue to monitor closely- stable at this time - DVT prophylaxis with SCDs Coagulopathy; Thrombocytopenia; Elevated INR - due to liver dysfunction - will monitor closely ID SIRs Criteria - switching from meropennem to rocephin - ID consulted- appreciate recommendations - blood culture- no growth after 48 hours, and no growth in urine culture, no MRSA in nares Critical care team will sign off at this time. Please reconsult if needed. Thank you for the opportunity to participate in the care of this patient. Patient seen, case discussed with, and plan approved by attending physician, Dr. Espinosa. <Javier Espinosa - Last Filed: 10/08/17 18:37> CCU Objective - Vital Signs / Intake & Output Vital Signs (Last 4 hours): Vital Signs Pulse Resp BP Pulse Ox 10/08/17 17:45 72 24 99/51 L 99 10/08/17 17:30 66 20 103/64 100 10/08/17 17:15 72 22 105/39 L 99 10/08/17 17:01 70 22 106/51 L 100 10/08/17 17:00 77 18 100 10/08/17 16:45 78 17 108/59 L 100 10/08/17 16:30 62 16 95/57 L 99 10/08/17 16:15 67 16 83/52 L 100 10/08/17 16:00 63 16 110/48 L 100 10/08/17 15:45 69 18 106/39 L 100 10/08/17 15:30 68 14 107/59 L 100 10/08/17 15:15 65 14 109/61 100 10/08/17 15:00 66 20 109/57 L 100 10/08/17 14:45 63 15 106/51 L 100 Intake and Output (Last 8hrs): Intake & Output 10/08/17 10/08/17 10/08/17 06:59 14:59 22:59 Intake Total 652.5 220 Output Total 604 700 Balance 48.5 -480 Weight 155 lb Intake: IV 252.5 220 Right Forearm 100 Right Internal Jugular 120 Oral 300 Albumin 100 Output: Urine 600 700 2-way Urethral 600 700 Stool 4 Other: # Bowel Movements 3 - Medications Active Medications: Active Medications Generic Name Dose Route Start Last Admin Trade Name Freq PRN Reason Stop Dose Admin Aspirin 81 mg 10/08/17 10:00 10/08/17 09:24 Ecotrin PO 81 mg DAILY BIBIANA Administration Octreotide Acetate 1,250 mcg/ 252.5 mls @ 5.05 mls/hr 10/06/17 04:45 05:13 Sodium Chloride IV 50 mcg/hr .Q24H BIBIANA 10.1 mls/hr Protocol Administration 25 MCG/HR NOREPINEPHRINE BIT/0.9 % NACL 4 mg in 250 mls @ 15 mls/hr 10/06/17 05:34 09:30 Levophed 4 Mg/ 250 Ml Ns Premixed IV 0 mcg/min .[id number] PRN 0 mls/hr TITRATE PER MD ORDER Titration Protocol 4 MCG/MIN Ceftriaxone Sodium 1 gm in 100 mls @ 100 mls/hr 10/08/17 10:45 10/08/17 14:14 Rocephin 1 Gram Ivpb IVPB 100 mls/hr DAILY BIBIANA Administration Protocol Lactulose 20 gm 10/07/17 10:00 10/08/17 17:00 Enulose PO Not Given BID BIBIANA Midodrine 5 mg 10/07/17 10:00 10/08/17 17:00 Proamatine PO 5 mg TID BIBIANA Administration Ondansetron HCl 4 mg 10/06/17 09:38 10/06/17 09:50 Zofran Inj IVP 4 mg Q4H PRN Administration Nausea/Vomiting Pantoprazole Sodium 40 mg 10/07/17 10:00 10/08/17 17:00 Protonix Inj IVP 40 mg BID BIBIANA Administration Potassium Phos/Sodium Phos 1 pkt 10/08/17 18:00 10/08/17 17:00 Neutra-Phos PO 1 pkt BID BIBIANA Administration Rifaximin 550 mg 10/07/17 10:00 10/08/17 17:00 Xifaxan PO 550 mg BID BIBIANA Administration Protocol - Patient Studies Lab Studies: Microbiology Studies 10/06/17 08:08 Blood Culture - Preliminary Blood-Venous NO GROWTH AFTER 48 HOURS 10/06/17 07:35 Blood Culture - Preliminary Blood-Venous NO GROWTH AFTER 48 HOURS 10/06/17 09:23 MRSA Culture (Admit) - Final Naris MRSA NOT DETECTED Lab Studies 10/08/17 10/08/17 10/08/17 Range/Units 05:00 05:00 05:00 WBC 8.1 (4.5-11.0) 10^3/ul RBC 2.46 L (3.5-6.1) 10^6/uL Hgb 7.7 L (14.0-18.0) g/dL Hct 22.7 L (42.0-52.0) % MCV 92.3 (80.0-105.0) fl MCH 31.3 (25.0-35.0) pg MCHC 33.9 (31.0-37.0) g/dl RDW 20.3 H (11.5-14.5) % Plt Count 82 L (120.0-450.0) 10^3/uL MPV 9.2 (7.0-11.0) fl Gran % 73.2 H (50.0-68.0) % Lymph % (Auto) 13.5 L (22.0-35.0) % Kendall % (Auto) 11.5 H (1.0-6.0) % Eos % (Auto) 1.4 L (1.5-5.0) % Baso % (Auto) 0.4 (0.0-3.0) % Gran # 5.94 (1.4-6.5) Lymph # 1.1 L (1.2-3.4) Kendall # 0.9 H (0.1-0.6) Eos # 0.1 (0.0-0.7) Baso # 0.03 (0.0-2.0) K/mm3 PT 18.8 H (9.4-12.5) SECONDS INR 1.69 H (0.93-1.08) Sodium 145 (132-148) mmol/L Potassium 4.1 (3.6-5.0) mmol/L Chloride 115 H (98-107) mmol/L Carbon Dioxide 23 (21-33) mmol/L Anion Gap 11 (10-20) BUN 41 H (7-21) mg/dL Creatinine 1.3 (0.8-1.5) mg/dl Est GFR ( Amer) > 60 Est GFR (Non-Af Amer) 56 Random Glucose 137 H (70-110) mg/dL Calcium 8.5 (8.4-10.5) mg/dL Phosphorus 1.9 L (2.5-4.5) mg/dL Magnesium 2.0 (1.7-2.2) mg/dL Total Bilirubin 3.2 H (0.2-1.3) mg/dL AST 120 H D (17-59) U/L ALT 79 H (7-56) U/L Alkaline Phosphatase 91 (38-126) U/L Total Protein 6.0 (5.8-8.3) g/dL Albumin 2.9 L (3.0-4.8) g/dL Globulin 3.1 gm/dL Albumin/Globulin Ratio 1.0 L (1.1-1.8) Laboratory Results - last 24 hr 10/08/17 10/08/17 10/08/17 05:00 05:00 05:00 WBC 8.1 RBC 2.46 L Hgb 7.7 L Hct 22.7 L MCV 92.3 MCH 31.3 MCHC 33.9 RDW 20.3 H Plt Count 82 L MPV 9.2 Gran % 73.2 H Lymph % (Auto) 13.5 L Kendall % (Auto) 11.5 H Eos % (Auto) 1.4 L Baso % (Auto) 0.4 Gran # 5.94 Lymph # 1.1 L Kendall # 0.9 H Eos # 0.1 Baso # 0.03 PT 18.8 H INR 1.69 H Sodium 145 Potassium 4.1 Chloride 115 H Carbon Dioxide 23 Anion Gap 11 BUN 41 H Creatinine 1.3 Est GFR ( Amer) > 60 Est GFR (Non-Af Amer) 56 Random Glucose 137 H Calcium 8.5 Phosphorus 1.9 L Magnesium 2.0 Total Bilirubin 3.2 H AST 120 H D ALT 79 H Alkaline Phosphatase 91 Total Protein 6.0 Albumin 2.9 L Globulin 3.1 Albumin/Globulin Ratio 1.0 L Critical Care Progress Note - Nutrition Nutrition: Nutrition Category Date Time Status Liquid Diet [DIET] Diets 10/06/17 Breakfast Ordered Attending/Attestation - Attestation I have personally seen and examined this patient.: Yes I have fully participated in the care of the patient.: Yes I have reviewed all pertinent clinical information: Yes Notes (Text): 10/08/17 18:34 62 yo with ESLD came with variceal bleed, s/p banding with successful hemostasis acheivement. Alert, oriented, off of pressors, hemodynamically and respiratory mazariegos stable. Ok to downgrade to tele (discussed with GI) ccm time 40 min
--- NOTE | 2017-10-08 10:35 | CP.PCM.PN ---
Subjective - Date & Time of Evaluation Date of Evaluation: 10/08/17 Time of Evaluation: 10:10 - Subjective Subjective: Patient is more awake today, no fevers overnight, not in distress, no vomiting, no hematemesis, now off vasopressors. Objective - Vital Signs/Intake and Output Vital Signs (last 24 hours): Temp Pulse Resp BP Pulse Ox 99.1 F 73 16 107/56 L 100 10/08/17 04:00 10/08/17 06:00 10/08/17 06:00 10/08/17 06:00 10/07/17 16:15 Intake and Output: 10/08/17 10/08/17 06:59 18:59 Intake Total 652.5 Output Total 604 Balance 48.5 - Medications Medications: Current Medications Aspirin (Ecotrin) 81 mg PO DAILY [facility] Last Admin: 10/08/17 09:24 Dose: 81 mg Octreotide Acetate 1,250 mcg/ (Sodium Chloride) 252.5 mls @ 5.05 mls/hr IV .Q24H BIBIANA; 25 MCG/HR PRN Reason: Protocol Last Admin: 10/08/17 05:13 Dose: 50 mcg/hr, 10.1 mls/hr NOREPINEPHRINE BIT/0.9 % NACL (Levophed 4 Mg/ 250 Ml Ns Premixed) 4 mg in 250 mls @ 15 mls/hr IV .[id number] PRN; Protocol; 4 MCG/MIN PRN Reason: TITRATE PER MD ORDER Last Titration: 10/07/17 09:30 Dose: 0 mcg/min, 0 mls/hr Meropenem 1 gm/ Dextrose 100 mls @ 100 mls/hr IVPB Q12 BIBIANA PRN Reason: Protocol Last Admin: 10/08/17 09:23 Dose: 100 mls/hr Lactulose (Enulose) 20 gm PO BID [facility] Last Admin: 10/08/17 09:24 Dose: Not Given Midodrine (Proamatine) 5 mg PO TID [facility] Last Admin: 10/08/17 09:24 Dose: 5 mg Ondansetron HCl (Zofran Inj) 4 mg IVP Q4H PRN PRN Reason: Nausea/Vomiting Last Admin: 10/06/17 09:50 Dose: 4 mg Pantoprazole Sodium (Protonix Inj) 40 mg IVP BID [facility] Last Admin: 10/08/17 09:23 Dose: 40 mg Rifaximin (Xifaxan) 550 mg PO BID BIBIANA PRN Reason: Protocol Last Admin: 10/08/17 09:23 Dose: 550 mg - Labs Labs: 10/08/17 05:00 10/08/17 05:00 PT 18.8 SECONDS (9.4-12.5) H 10/08/17 05:00 INR 1.69 (0.93-1.08) H 10/08/17 05:00 APTT 33.5 Seconds (25.1-36.5) 10/06/17 04:45 - Constitutional Appears: Cachectic, Chronically Ill - Head Exam Head Exam: NORMAL INSPECTION - ENT Exam ENT Exam: Mucous Membranes Moist - Neck Exam Neck Exam: absent: Meningismus - Respiratory Exam Respiratory Exam: Decreased Breath Sounds - Cardiovascular Exam Cardiovascular Exam: +S1, +S2 - GI/Abdominal Exam GI & Abdominal Exam: Soft. 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
--- NOTE | 2017-10-08 11:09 | PN ---
DATE: SUBJECTIVE: The patient is currently seen in ICU bed 7. He appears to be stable. He continues to pass melena but no active bleeding. His last hemoglobin level was 7.7. His BUN remains mildly elevated secondary to GI bleeding. His creatinine is falling back to baseline at 1.3. MEDICATIONS: Medication list reviewed. The patient is currently on Ecotrin, Enulose, meropenem, morphine p.r.n., low-dose Levophed drip, octreotide drip, ProAmatine, Protonix, Xifaxan, and Zofran p.r.n. OBJECTIVE: INTAKE/OUTPUT: Intake 2171, output 1354. VITAL SIGNS: Blood pressure presently 107/56. He was as low as 85/32 earlier this morning. Pulse 73, respiratory rate 16, temperature is 99.1. HEENT: Exam shows him to be normocephalic, atraumatic. Conjunctivae are pale. Sclerae are icteric. NECK: Supple. No neck vein distention. CHEST: Clear to auscultation and percussion. No rales, no rhonchi, no wheezing. CARDIOVASCULAR: Shows a regular rate and rhythm with soft systolic murmur, left lower sternal border. No S3. No S4. No rub. ABDOMEN: Soft., mild ascites. Bowel sounds normal. Mild distention. No rebound or guarding. EXTREMITIES: Show no lower extremity cyanosis, clubbing or edema. NEUROLOGIC: Shows him to be alert, oriented no asterixis. IMAGING: Abdominal ultrasound done on 10/06 showed a patent central vein. Liver was shrunk in consistent with cirrhosis. Ascites was noted. He had an extrahepatic portal vein which was patent. LABORATORY DATA: CBC, white blood cell count down to 8.1, hemoglobin slightly lower today at 7.7. Platelet count is 82,000. Coags, PT 18.8 with an INR of 1.69. Chemistries: Sodium 145, potassium 4.1, chloride 115 with a CO2 of 23, BUN is 41 with a creatinine of 1.3. His BUN is drifted up from 32-41, likely secondary to his GI bleed. Creatinine has fallen from 2.1 down to 1.3 which is at his baseline. Ammonia level is 96.5. Calcium is 8.5 with a phosphorus of 1.9. Bilirubin 3.2. Elevated liver enzymes. Glucose is 137. Albumin is low at 2.9. No urine is available for comment. Microbiology, urine cultures are negative. Blood cultures are negative at 48 hours. Blood bank, the patient is status post transfusion of 4 units of packed red blood cells, 2 units of FFP and 1 unit of platelets. ASSESSMENT: Acute renal injury in the setting of GI bleed, hypotension, renal hypoperfusion, likely acute tubular necrosis secondary to hypotension associated with hypoperfusion. The patient with the adjustment of medication and supportive blood pressure appears to be perfusing the kidneys better as his creatinine has fallen down from 2.1-1.3. I do not expect the BUN to fall until the GI bleeding resolves. History of severe anemia secondary to GI bleed. The patient had bleeding varices likely secondary to portal hypertension secondary to nonalcoholic steatohepatitis with cirrhosis. History of atrial fibrillation status post cardioversion. Hypophosphatemia. The patient will be supplemented with oral phosphorus supplements. No evidence for hepatorenal syndrome, though urine lytes were ordered but never sent. PLAN: 1.. Wean the patient off of all pressor support. 2. Continue ProAmatine for blood pressures support. 3. Continue empiric antibiotic therapy. 4. Continue Xifaxan and lactulose for high ammonia levels. 5. Close GI followup. 6. The patient reassured that his kidney function is returning to normal as his hemodynamic instability has been corrected. 7. Case discussed with ICU house staff and nursing staff. 8. Greater than 35 minutes spent in the care of this patient. Guillermo Gonzalez MD
[2017-10-08] MEDS: cefTRIAXone 1 gm 1 GM/100 ML BAG IVPB SCH (14:14)
[2017-10-08] MEDS: Potassium & Sodium Phosphate PO SCH (17:00)
[2017-10-08] MEDS ORDERED: Morphine 2 mg/ml ISec IVP STA (20:08)
[2017-10-08] MEDS ORDERED: Morphine 5 MG/ML SYRINGE IVP STA (20:24)
[2017-10-09 05:45] LABS: BASO # 0.03 K/mm3 (0.0-2.0); BASO % 0.5 % (0.0-3.0); EOS # 0.2 (0.0-0.7); EOS % 3.1 % (1.5-5.0); GRAN # 3.99 (1.4-6.5); GRAN % 64.9 % (50.0-68.0); LYMPH # 1.2 (1.2-3.4); MEAN CELL VOLUME 93.9 fl (80.0-105.0); MEAN CORPUSCULAR HEMOGLOBIN 31.6 pg (25.0-35.0); MEAN CORPUSCULAR HGB CONC 33.6 g/dl (31.0-37.0); MEAN PLATELET VOLUME 9.1 fl (7.0-11.0); MONO # 0.8 (0.1-0.6); MONO % 12.5 % (1.0-6.0); RED CELL DISTRIBUTION WIDTH 20.4 % (11.5-14.5); WHITE BLOOD COUNT 6.2 10^3/ul (4.5-11.0)
[2017-10-09 05:47] LABS: HEMATOCRIT 23.2 % (42.0-52.0)
[2017-10-09 06:28] LABS: ALB/GLOB RATIO 0.8 (1.1-1.8); ALKALINE PHOSPHATASE 126 U/L (38-126); ALT/SGPT 75 U/L (7-56); AST/SGOT 102 U/L (17-59); BILIRUBIN,TOTAL 2.6 mg/dL (0.2-1.3); BLOOD UREA NITROGEN 33 mg/dL (7-21); CALCIUM 8.2 mg/dL (8.4-10.5); CARBON DIOXIDE 24 mmol/L (21-33); CHLORIDE 113 mmol/L (98-107); GFR AFRICAN-AMERICAN > 60; GLUCOSE,RANDOM 99 mg/dL (70-110); PHOSPHOROUS 2.6 mg/dL (2.5-4.5); POTASSIUM 3.8 mmol/L (3.6-5.0); SODIUM 143 mmol/L (132-148); TOTAL PROTEIN 6.1 g/dL (5.8-8.3)
[2017-10-09] MEDS: Potassium & Sodium Phosphate PO SCH ×2 (09:57→17:21)
[2017-10-09] MEDS: cefTRIAXone 1 gm 1 GM/100 ML BAG IVPB SCH (09:57)
--- NOTE | 2017-10-09 09:58 | CP.PCM.CON ---
<Kalani Gonzalez - Last Filed: 10/09/17 09:58> History of Present Illness - History of Present Illness History of Present Illness: GI Fellow PGY4 Progress Note Pt seen and evaluated at beside, pt overnight had no further episodes of melena. Pt is tolerating full liquid diet with no nausea, vomiting or chest pain. Pt looks better and is alert, awake and oriented. ROS: A 12pt ROS was negative except as above. Past Patient History - Past Social History Smoking Status: Former Smoker - CARDIAC Hx Cardiac Disorders: Yes Hx Hypertension: Yes - PULMONARY Hx Respiratory Disorders: Yes (SMOKED CIGARETTES,QUIT SMOKING.PPDQUIT 1.5 YR AGO ) Hx Pneumonia: Yes (09-02-17) - NEUROLOGICAL Hx Neurological Disorder: No - HEENT Hx HEENT Problems: No - RENAL Hx Chronic Kidney Disease: No - ENDOCRINE/METABOLIC Hx Endocrine Disorders: No - HEMATOLOGICAL/ONCOLOGICAL Hx Blood Disorders: Yes Hx Cirrhosis: Yes (PARACENTESIS) - INTEGUMENTARY Hx Dermatological Problems: No - MUSCULOSKELETAL/RHEUMATOLOGICAL Hx Musculoskeletal Disorders: Yes Hx Falls: Yes Hx Unsteady Gait: Yes - GASTROINTESTINAL Hx Gastrointestinal Disorders: Yes (N0N ALCOHOLIC LIVER CIRRHOSIS,H/O GI BLEED, INGUINAL HERNIA REPAIR) Hx Gastroesophageal Reflux: Yes - GENITOURINARY/GYNECOLOGICAL Hx Genitourinary Disorders: No - PSYCHIATRIC Hx Psychophysiologic Disorder: No Hx Substance Use: No - SURGICAL HISTORY Hx Coronary Stent: Yes (09-05-17) - ANESTHESIA Hx Anesthesia Reactions: No Hx Malignant Hyperthermia: No Meds Allergies/Adverse Reactions: Allergies Allergy/AdvReac Type Severity Reaction Status Date / Time Beef Containing Products Allergy Severe ANAPHYLAXIS Verified 10/06/17 13:44 beef derived (bovine) Allergy Severe ANAPHYLAXIS Verified 10/06/17 13:44 banana Allergy Intermediate ITCHING Verified 10/06/17 13:44 - Medications Medications: Current Medications Aspirin (Ecotrin) 81 mg PO DAILY [facility] Last Admin: 10/08/17 09:24 Dose: 81 mg NOREPINEPHRINE BIT/0.9 % NACL (Levophed 4 Mg/ 250 Ml Ns Premixed) 4 mg in 250 mls @ 15 mls/hr IV .[id number] PRN; Protocol; 4 MCG/MIN PRN Reason: TITRATE PER MD ORDER Last Titration: 10/07/17 09:30 Dose: 0 mcg/min, 0 mls/hr Ceftriaxone Sodium (Rocephin 1 Gram Ivpb) 1 gm in 100 mls @ 100 mls/hr IVPB DAILY [facility] PRN Reason: Protocol Last Admin: 10/08/17 14:14 Dose: 100 mls/hr Lactulose (Enulose) 20 gm PO BID [facility] Last Admin: 10/08/17 17:00 Dose: Not Given Midodrine (Proamatine) 5 mg PO TID [facility] Last Admin: 10/08/17 17:00 Dose: 5 mg Ondansetron HCl (Zofran Inj) 4 mg IVP Q4H PRN PRN Reason: Nausea/Vomiting Last Admin: 10/06/17 09:50 Dose: 4 mg Pantoprazole Sodium (Protonix Ec Tab) 40 mg PO 0600 [facility] Potassium Phos/Sodium Phos (Neutra-Phos) 1 pkt PO BID [facility] Last Admin: 10/08/17 17:00 Dose: 1 pkt Rifaximin (Xifaxan) 550 mg PO BID [facility] PRN Reason: Protocol Last Admin: 10/08/17 17:00 Dose: 550 mg Physical Exam - Constitutional Appears: Non-toxic, No Acute Distress, Cachectic, Chronically Ill - Head Exam Head Exam: ATRAUMATIC, NORMAL INSPECTION, NORMOCEPHALIC - Eye Exam Eye Exam: EOMI, Normal appearance, PERRL Pupil Exam: PERRL - ENT Exam ENT Exam: Mucous Membranes Moist, Normal Exam - Neck Exam Neck exam: Positive for: Normal Inspection - Respiratory Exam Respiratory Exam: Clear to Auscultation Bilateral, NORMAL BREATHING PATTERN - Cardiovascular Exam Cardiovascular Exam: REGULAR RHYTHM - GI/Abdominal Exam GI & Abdominal Exam: Normal Bowel Sounds, Soft, Tenderness. absent: Distended, Guarding, Organomegaly - Rectal Exam Rectal Exam: Deferred - Extremities Exam Extremities exam: Positive for: normal inspection. Negative for: pedal edema - Back Exam Back exam: NORMAL INSPECTION - Neurological Exam Neurological exam: Alert, Oriented x3 - Psychiatric Exam Psychiatric exam: Normal Affect, Normal Mood - Skin Skin Exam: Dry, Intact, Normal Color, Warm Results - Vital Signs Recent Vital Signs: Last Vital Signs Temp 99.6 F 10/09/17 04:00 Pulse 62 10/09/17 07:00 Resp 13 10/09/17 07:00 BP 102/51 L 10/09/17 07:00 Pulse Ox 100 10/09/17 07:00 - Labs Result Diagrams: 10/09/17 05:00 10/09/17 05:00 Labs: Laboratory Results - last 24 hr 10/09/17 10/09/17 05:00 05:00 WBC 6.2 D RBC 2.47 L Hgb 7.8 L Hct 23.2 L MCV 93.9 MCH 31.6 MCHC 33.6 RDW 20.4 H Plt Count 84 L MPV 9.1 Gran % 64.9 Lymph % (Auto) 19.0 L Calvert % (Auto) 12.5 H Eos % (Auto) 3.1 Baso % (Auto) 0.5 Gran # 3.99 Lymph # 1.2 Calvert # 0.8 H Eos # 0.2 Baso # 0.03 Sodium 143 Potassium 3.8 Chloride 113 H Carbon Dioxide 24 Anion Gap 10 BUN 33 H Creatinine 1.1 Est GFR ( Amer) > 60 Est GFR (Non-Af Amer) > 60 Random Glucose 99 Calcium 8.2 L Phosphorus 2.6 Magnesium 2.0 Total Bilirubin 2.6 H AST 102 H ALT 75 H Alkaline Phosphatase 126 D Total Protein 6.1 Albumin 2.8 L Globulin 3.3 Albumin/Globulin Ratio 0.8 L Assessment & Plan - Assessment and Plan (Free Text) Assessment: This is a 62yM presenting with acute onset of hematemesis and anemia. 1. UGIB Variceal resolved 2. Anemia 3. Decompensated cirrhosis MELD 24 on admission 4. Hx of GI bleeding 5. CAD s/p bare metal [id number] ago 6. Hx of Acites s/p 7L paracentesis 10/04/17 7. Hx of HE 8. KEYUR resolved Plan: -Continue supportive care with close monitoring -Resolved UGIB with hematemesis with no further melena -Hgb stable, monitor H/H -s/p emergent endoscopy with 9 variceal banding in distal and midesophagus -Discontinue IV Octreotide drip -Can change to po PPI daily -Soft diet today -Can restart diuretics with KEYUR resolved, Cr improved -Continue lactulose and rifaxamin for HE prevention -Can restart nadolol -Continue abx IV Ceftriaxone for UGIB for total 7 days currently day 4 abx -Pt with ascites, will need repeat paracentesis prior to hospital discharge -Will need repeat EGD as an outpt in 6 weeks to evaluated eradication of varices and colonoscopy for CRC screening -Will continue to follow pt closely <SpinkAelna singletaryl - Last Filed: 10/09/17 11:53> Meds - Medications Medications: Current Medications Aspirin (Ecotrin) 81 mg PO DAILY [facility] Last Admin: 10/09/17 09:57 Dose: 81 mg NOREPINEPHRINE BIT/0.9 % NACL (Levophed 4 Mg/ 250 Ml Ns Premixed) 4 mg in 250 mls @ 15 mls/hr IV .[id number] PRN; Protocol; 4 MCG/MIN PRN Reason: TITRATE PER MD ORDER Last Titration: 10/07/17 09:30 Dose: 0 mcg/min, 0 mls/hr Ceftriaxone Sodium (Rocephin 1 Gram Ivpb) 1 gm in 100 mls @ 100 mls/hr IVPB DAILY [facility] PRN Reason: Protocol Last Admin: 10/09/17 09:57 Dose: 100 mls/hr Lactulose (Enulose) 20 gm PO BID [facility] Last Admin: 10/09/17 09:57 Dose: Not Given Midodrine (Proamatine) 5 mg PO TID [facility] Last Admin: 10/09/17 09:57 Dose: 5 mg Ondansetron HCl (Zofran Inj) 4 mg IVP Q4H PRN PRN Reason: Nausea/Vomiting Last Admin: 10/06/17 09:50 Dose: 4 mg Pantoprazole Sodium (Protonix Ec Tab) 40 mg PO 0600 [facility] Potassium Phos/Sodium Phos (Neutra-Phos) 1 pkt PO BID [facility] Last Admin: 10/09/17 09:57 Dose: 1 pkt Rifaximin (Xifaxan) 550 mg PO BID [facility] PRN Reason: Protocol Last Admin: 10/09/17 09:57 Dose: 550 mg Results - Vital Signs Recent Vital Signs: Last Vital Signs Temp 99.6 F 10/09/17 04:00 Pulse 62 10/09/17 07:00 Resp 13 10/09/17 07:00 BP 102/51 L 10/09/17 07:00 Pulse Ox 100 10/09/17 07:00 - Labs Result Diagrams: 10/09/17 05:00 10/09/17 05:00 Labs: Laboratory Results - last 24 hr 10/09/17 10/09/17 05:00 05:00 WBC 6.2 D RBC 2.47 L Hgb 7.8 L Hct 23.2 L MCV 93.9 MCH 31.6 MCHC 33.6 RDW 20.4 H Plt Count 84 L MPV 9.1 Gran % 64.9 Lymph % (Auto) 19.0 L Calvert % (Auto) 12.5 H Eos % (Auto) 3.1 Baso % (Auto) 0.5 Gran # 3.99 Lymph # 1.2 Calvert # 0.8 H Eos # 0.2 Baso # 0.03 Sodium 143 Potassium 3.8 Chloride 113 H Carbon Dioxide 24 Anion Gap 10 BUN 33 H Creatinine 1.1 Est GFR ( Amer) > 60 Est GFR (Non-Af Amer) > 60 Random Glucose 99 Calcium 8.2 L Phosphorus 2.6 Magnesium 2.0 Total Bilirubin 2.6 H AST 102 H ALT 75 H Alkaline Phosphatase 126 D Total Protein 6.1 Albumin 2.8 L Globulin 3.3 Albumin/Globulin Ratio 0.8 L Attending/Attestation - Attestation I have personally seen and examined this patient.: Yes I have fully participated in the care of the patient.: Yes I have reviewed all pertinent clinical information: Yes Notes (Text): 10/09/17 11:51 62 year old male with h/o Cirrhosis c/b ascites, HE, h/o CAD s/p BMS 1 month ago admitted with hematemesis. 1. Esophageal varices 2. Decompensated cirrhosis 3. Ascites 4. Acute renal failure 5. Hepatic encephalopathy Plan: -continue abx for sbp prophylaxis -ok to stop octreotide now -continue lactulose/rifaxamin -soft diet -supportive measures -recommend paracentesis tomorrow -outpatient egd in 6 weeks for rebanding -will need to be on BB for prophylaxis for recurrent bleeding as well
--- NOTE | 2017-10-09 12:32 | CP.PCM.PN ---
<Nemesio Michael - Last Filed: 10/09/17 12:15> Subjective - Date & Time of Evaluation Date of Evaluation: 10/09/17 Time of Evaluation: 10:00 - Subjective Subjective: Dr. Rosales Service Patient was seen and examined at bedside. No acute complaints at this time. No acute or adverse events overnight as per nursing staff. Pt denied any further episodes of hemetemesis or melena. Pt denied fever, chills, sob, chest pains, n/ v/d/c or urinary symptoms. Pt has mayorga in place. Pt admits to mild abdominal tenderness at site of paracentesis. Pt is likely for paracentesis tomorrow. Octreotide infusion to stop tonight. Objective - Vital Signs/Intake and Output Vital Signs (last 24 hours): Temp Pulse Resp BP Pulse Ox 99.6 F 62 13 102/51 L 100 10/09/17 04:00 10/09/17 07:00 10/09/17 07:00 10/09/17 07:00 10/09/17 07:00 Intake and Output: 10/09/17 10/09/17 06:59 18:59 Intake Total 372.5 Output Total 400 Balance -27.5 - Medications Medications: Current Medications Aspirin (Ecotrin) 81 mg PO DAILY [facility] Last Admin: 10/09/17 09:57 Dose: 81 mg NOREPINEPHRINE BIT/0.9 % NACL (Levophed 4 Mg/ 250 Ml Ns Premixed) 4 mg in 250 mls @ 15 mls/hr IV .[id number] PRN; Protocol; 4 MCG/MIN PRN Reason: TITRATE PER MD ORDER Last Titration: 10/07/17 09:30 Dose: 0 mcg/min, 0 mls/hr Ceftriaxone Sodium (Rocephin 1 Gram Ivpb) 1 gm in 100 mls @ 100 mls/hr IVPB DAILY [facility] PRN Reason: Protocol Last Admin: 10/09/17 09:57 Dose: 100 mls/hr Lactulose (Enulose) 20 gm PO BID [facility] Last Admin: 10/09/17 09:57 Dose: Not Given Midodrine (Proamatine) 5 mg PO TID [facility] Last Admin: 10/09/17 09:57 Dose: 5 mg Ondansetron HCl (Zofran Inj) 4 mg IVP Q4H PRN PRN Reason: Nausea/Vomiting Last Admin: 10/06/17 09:50 Dose: 4 mg Pantoprazole Sodium (Protonix Ec Tab) 40 mg PO 0600 [facility] Potassium Phos/Sodium Phos (Neutra-Phos) 1 pkt PO BID [facility] Last Admin: 10/09/17 09:57 Dose: 1 pkt Rifaximin (Xifaxan) 550 mg PO BID [facility] PRN Reason: Protocol Last Admin: 10/09/17 09:57 Dose: 550 mg - Labs Labs: 10/09/17 05:00 10/09/17 05:00 PT 18.8 SECONDS (9.4-12.5) H 10/08/17 05:00 INR 1.69 (0.93-1.08) H 10/08/17 05:00 APTT 33.5 Seconds (25.1-36.5) 10/06/17 04:45 - Constitutional Appears: No Acute Distress - Head Exam Head Exam: ATRAUMATIC, NORMAL INSPECTION, NORMOCEPHALIC - Eye Exam Eye Exam: EOMI, Normal appearance, PERRL Pupil Exam: NORMAL ACCOMODATION, PERRL - ENT Exam ENT Exam: Mucous Membranes Moist, Normal Exam - Neck Exam Neck Exam: Full ROM, Normal Inspection. absent: Lymphadenopathy - Respiratory Exam Respiratory Exam: Clear to Ausculation Bilateral, NORMAL BREATHING PATTERN - Cardiovascular Exam Cardiovascular Exam: REGULAR RHYTHM, +S1, +S2. absent: Murmur - GI/Abdominal Exam GI & Abdominal Exam: Soft, Tenderness (diffuse), Normal Bowel Sounds - Extremities Exam Extremities Exam: Full ROM, Normal Capillary Refill, Normal Inspection. absent : Joint Swelling, Pedal Edema - Neurological Exam Neurological Exam: Alert, Awake, CN II-XII Intact, Normal Gait, Oriented x3 - Psychiatric Exam Psychiatric exam: Normal Affect, Normal Mood - Skin Skin Exam: Dry, Intact, Normal Color, Warm Assessment and Plan - Assessment and Plan (Free Text) Assessment: 62 M with PMHx of TRUJILLO, afib s/p cardioversion, HTN, GERD, CHF whom presented with hematemesis and was found to have ascites s/p paracentesis and anemia s/p 4 units of prbc transfusions and EGD with 9 gastric banding of varices. Pt is likely for paracentesis tomorrow. Octreotide infusion to stop tonight. 1) Hematemesis secondary to variceal bleeding due to decompensated cirrhosis - S/p EGD with 9 variceal banding in the distal and midesophagus - S/p transfusions with 4 units of prbc and a unit of platelet. - Will continue with octreotide drip and protonix as per Gi. - Patient will need Nadolol once hemodynamically stable as per gi. - GI following, BB for prophylaxis for recurrent bleeding, recommending outpatient EGD and colonoscopy in 6 weeks for rebanding - Octreotide to finish tonight 2) Anemia due to GI bleeding - S/p 4 units of prbc transfused - H/H remains stable - Hematemesis has resolved no further signs of bleeding - will continue to monitor for now. 3) SIRS in the setting of ascites - SBP was ruled out - Cultures with so far no growth - Afebrile and leukocysotis trended down. - ID following - Will continue with rocephin as per ID 4) Decompensated liver cirrhosis with ascites with h/o TRUJILLO - s/p therapeutic and diagnostic paracentesis, on admission, removed 7 litters. Likely for paracentesis tomorrow - Patient was given albumin - MELD score was 24, now 19 - Will continue to trend LFTs. - Patient will need to follow up with [facility] upon discharge. 5) KEYUR due to ATN from hemorrhagic shock - Creatinine continues to improve - Nephrology following 6) Hepatic encephalopathy with transient AMS - Mental status improved - Ammonia levels also trended - will continue Rifaximin 550mg po bid - Patient is also on lactulose. 7) Hemorrhagic shock likely due to GI bleed. - Patient is currently off of levophed drip - BP remains stable with po midodrine - Will continue to maintain MAP above 65. 8) History A-fib s/p cardioversion - Currently NSR - will continue to monitor. 9) CAD s/p bare metal stent - Retarted on asa - plavix on hold due to thrombocytopenia and GI bleed. 10) Diastolic CHF- Currently stable, will continue to monitor. 9) On protonix and compressive devices for GI and DVT prophylaxis. Patient seen, examined and case discussed with the attending. <Felicita Rosales - Last Filed: 10/09/17 13:39> Objective - Vital Signs/Intake and Output Vital Signs (last 24 hours): Temp Pulse Resp BP Pulse Ox 99.6 F 65 19 112/39 L 100 10/09/17 04:00 10/09/17 12:00 10/09/17 12:00 10/09/17 12:00 10/09/17 12:00 Intake and Output: 10/09/17 10/09/17 06:59 18:59 Intake Total 372.5 Output Total 400 Balance -27.5 - Medications Medications: Current Medications Aspirin (Ecotrin) 81 mg PO DAILY [facility] Last Admin: 10/09/17 09:57 Dose: 81 mg NOREPINEPHRINE BIT/0.9 % NACL (Levophed 4 Mg/ 250 Ml Ns Premixed) 4 mg in 250 mls @ 15 mls/hr IV .[id number] PRN; Protocol; 4 MCG/MIN PRN Reason: TITRATE PER MD ORDER Last Titration: 10/07/17 09:30 Dose: 0 mcg/min, 0 mls/hr Ceftriaxone Sodium (Rocephin 1 Gram Ivpb) 1 gm in 100 mls @ 100 mls/hr IVPB DAILY [facility] PRN Reason: Protocol Last Admin: 10/09/17 09:57 Dose: 100 mls/hr Lactulose (Enulose) 20 gm PO BID [facility] Last Admin: 10/09/17 09:57 Dose: Not Given Midodrine (Proamatine) 5 mg PO TID [facility] Last Admin: 10/09/17 09:57 Dose: 5 mg Ondansetron HCl (Zofran Inj) 4 mg IVP Q4H PRN PRN Reason: Nausea/Vomiting Last Admin: 10/06/17 09:50 Dose: 4 mg Oxycodone HCl (Oxycodone Immediate Release Tab) 5 mg PO HS PRN PRN Reason: Pain, severe (8-10) Pantoprazole Sodium (Protonix Ec Tab) 40 mg PO 0600 [facility] Potassium Phos/Sodium Phos (Neutra-Phos) 1 pkt PO BID [facility] Last Admin: 10/09/17 09:57 Dose: 1 pkt Rifaximin (Xifaxan) 550 mg PO BID [facility] PRN Reason: Protocol Last Admin: 10/09/17 09:57 Dose: 550 mg - Labs Labs: 10/09/17 05:00 10/09/17 05:00 PT 18.8 SECONDS (9.4-12.5) H 10/08/17 05:00 INR 1.69 (0.93-1.08) H 10/08/17 05:00 APTT 33.5 Seconds (25.1-36.5) 10/06/17 04:45 Attending/Attestation - Attestation I have personally seen and examined this patient.: Yes I have fully participated in the care of the patient.: Yes I have reviewed all pertinent clinical information, including history, physical exam and plan: Yes Notes (Text): 10/09/17 13:33 Attending note; Patient seen and examined with resident in ICU. Patient is a 62 year old male with history of Cryptogenic cirrhosis, former smoker, former alcohol abuser, HTN, CHF (EF~45-50%), afib recently cardioverted to normal sinus rhythm, CAD s/p bare metal stent on aspirin as admitted with GI bleed. Active GI bleed; most likely secondary to esophageal varices and portal gastropathy. status post EGD and banding x9. Currently no significant active bleeding. Tolerating liquid diet. Continue IV Protonix and octreotide drip discontinued. on Ecotrin .Patient already completed 4 weeks of Plavix therapy. Hypotension: Resolved. on midodrine. will start nadolol if BP permits. hepatic encephalopathy; improved. Continue lactulose and rifaximin. Patient will be referred to [facility] hepatology/transplant clinic. Upon discharge patient will follow up with Dr. Lew. 10/09/17 13:38
[2017-10-09 12:58] LABS: LKM-1 Ab (IgG) <=20.0 U (<=20.0)
--- NOTE | 2017-10-09 14:51 | CP.PCM.PN ---
Subjective - Date & Time of Evaluation Date of Evaluation: 10/09/17 Time of Evaluation: 14:20 - Subjective Subjective: Comfortable on a chair, no nausea, no vomiting, no abdominal pain, no hematemesis, no blood in the stool, stools are now brown and formed. Eating fairly. Objective - Vital Signs/Intake and Output Vital Signs (last 24 hours): Temp Pulse Resp BP Pulse Ox 99.6 F 52 L 17 112/54 L 100 10/09/17 04:00 10/09/17 06:00 10/09/17 05:00 10/09/17 05:00 10/09/17 05:00 Intake and Output: 10/09/17 10/09/17 06:59 18:59 Intake Total 372.5 Output Total 400 Balance -27.5 - Medications Medications: Current Medications Aspirin (Ecotrin) 81 mg PO DAILY [facility] Last Admin: 10/08/17 09:24 Dose: 81 mg NOREPINEPHRINE BIT/0.9 % NACL (Levophed 4 Mg/ 250 Ml Ns Premixed) 4 mg in 250 mls @ 15 mls/hr IV .[id number] PRN; Protocol; 4 MCG/MIN PRN Reason: TITRATE PER MD ORDER Last Titration: 10/07/17 09:30 Dose: 0 mcg/min, 0 mls/hr Ceftriaxone Sodium (Rocephin 1 Gram Ivpb) 1 gm in 100 mls @ 100 mls/hr IVPB DAILY [facility] PRN Reason: Protocol Last Admin: 10/08/17 14:14 Dose: 100 mls/hr Lactulose (Enulose) 20 gm PO BID [facility] Last Admin: 10/08/17 17:00 Dose: Not Given Midodrine (Proamatine) 5 mg PO TID [facility] Last Admin: 10/08/17 17:00 Dose: 5 mg Ondansetron HCl (Zofran Inj) 4 mg IVP Q4H PRN PRN Reason: Nausea/Vomiting Last Admin: 10/06/17 09:50 Dose: 4 mg Pantoprazole Sodium (Protonix Inj) 40 mg IVP BID [facility] Last Admin: 10/08/17 17:00 Dose: 40 mg Potassium Phos/Sodium Phos (Neutra-Phos) 1 pkt PO BID [facility] Last Admin: 10/08/17 17:00 Dose: 1 pkt Rifaximin (Xifaxan) 550 mg PO BID [facility] PRN Reason: Protocol Last Admin: 10/08/17 17:00 Dose: 550 mg - Labs Labs: 10/09/17 05:00 10/09/17 05:00 PT 18.8 SECONDS (9.4-12.5) H 10/08/17 05:00 INR 1.69 (0.93-1.08) H 10/08/17 05:00 APTT 33.5 Seconds (25.1-36.5) 10/06/17 04:45 - Constitutional Appears: Cachectic, Chronically Ill - Head Exam Head Exam: NORMAL INSPECTION - ENT Exam ENT Exam: Mucous Membranes Moist - Neck Exam Neck Exam: absent: Lymphadenopathy, Meningismus - Respiratory Exam Respiratory Exam: absent: Rales, Rhonchi - Cardiovascular Exam Cardiovascular Exam: +S1, +S2 - GI/Abdominal Exam GI & Abdominal Exam: Soft. 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
--- NOTE | 2017-10-09 18:17 | PN ---
DATE: SUBJECTIVE: The patient is currently seen awaiting transfer out of the ICU. He is actually telemetry a patient at present. His renal parameters have fallen back to baseline. His GI bleeding appears to have stopped. MEDICATIONS: Medication list reviewed. The patient is currently on Ecotrin, Enulose, Neutra-Phos, ProAmatine, Protonix, Rocephin, Xifaxan, and Zofran p.r.n. OBJECTIVE: INTAKE/OUTPUT: Intake 593, output 1100. VITAL SIGNS: Blood pressure 102/51, pulse of 62, respiratory rate of 13, oxygen saturation of 100% with a temperature of 99.6. HEENT: Exam shows him to be normocephalic, atraumatic. Conjunctivae are pale. Sclera remain icteric. NECK: Supple. No neck vein distention. CHEST: Clear to auscultation and percussion. No rales, no rhonchi or wheezing. CARDIOVASCULAR: Shows a regular rate and rhythm with soft systolic murmur left lower sternal border. No rub. ABDOMEN: Soft. Mild ascites. Bowel sounds normal. Mild distention. No rebound or guarding. EXTREMITIES: Show no lower extremity cyanosis, clubbing or edema. NEUROLOGIC: Shows him to be alert, oriented x3 with no asterixis. IMAGING STUDIES: Consistent with cirrhosis. Ascites was noted. LABORATORY DATA: CBC, white blood cell count 6.2, hemoglobin 7.8 with a platelet count of 84,000. Coags, PT 18.8, INR 1.69. Chemistry showed normal electrolytes. BUN is down to 33, was 41 yesterday. Baseline is 20. Creatinine is down to 1.1 at baseline levels from a high of 2.1. Calcium is 8.2 with a phosphorus of 2.6, magnesium 2.0. His albumin was 2.8. Last ammonia level was 96.5. The patient remains on medication to lower his ammonia level. Microbiology, all cultures are negative. ASSESSMENT: 1. Status post acute renal failure. Creatinine is back to baseline levels. His BUN will likely continue to fall post gastrointestinal bleeding, post hypotension, post renal hypoperfusion, post mild case of acute tubular necrosis. 2. History of severe anemia secondary to gastrointestinal bleeding. This is felt to be secondary to portal hypertension with variceal bleeding secondary to nonalcoholic steatohepatitis with cirrhosis. The patient has received a total of 4 units of packed red blood cells, 2 units of fresh frozen plasma and 1 unit of platelets. 3. History of atrial fibrillation status post cardioversion. 4. Hypophosphatemia. Phosphorus was supplemented, today's phosphorus level was normal. 5. No evidence for hepatorenal syndrome clinically. Unfortunately urine lytes that were ordered were never sent. PLAN: 1. The patient is presently on ProAmatine. This medicine can likely be weaned off and discontinued in the next several days. 2. Continue Enulose and Xifaxan for his hepatic encephalopathy. 3. Continue to monitor electrolytes on a regular basis. He is currently normalized his phosphorus level on phosphorus supplements. 4. Evaluation for possible paracentesis. 5. We will continue to monitor the patient along with you on telemetry. Guillermo Gonzalez MD
[2017-10-09] MEDS: oxyCODONE 5 mg Immediate Release Tab PO PRN (21:44)
[2017-10-10] MEDS: Pantoprazole 40 mg EC Tab PO SCH (06:10)
--- NOTE | 2017-10-10 06:55 | CP.PCM.PN ---
<Kalani Gonzalez - Last Filed: 10/10/17 09:15> Subjective - Date & Time of Evaluation Date of Evaluation: 10/10/17 Time of Evaluation: 07:00 - Subjective Subjective: GI Fellow PGY4 Progress Note Pt seen and evaluated at beside, pt transferred out of ICU and no overnight events,no further episodes of hematochezia or melena. Pt is tolerating soft diet with no nausea, vomiting or chest pain. Pt looks better and is alert, awake and oriented. ROS: A 12pt ROS was negative except as above. Objective - Vital Signs/Intake and Output Vital Signs (last 24 hours): Temp Pulse Resp BP Pulse Ox 98.5 F 68 18 99/52 L 99 10/10/17 06:00 10/10/17 06:00 10/10/17 06:00 10/10/17 06:00 10/10/17 06:00 Intake and Output: 10/09/17 10/10/17 18:59 06:59 Intake Total 510 Balance 510 - Medications Medications: Current Medications Aspirin (Ecotrin) 81 mg PO DAILY [facility] Last Admin: 10/09/17 09:57 Dose: 81 mg Ceftriaxone Sodium (Rocephin 1 Gram Ivpb) 1 gm in 100 mls @ 100 mls/hr IVPB DAILY [facility] PRN Reason: Protocol Last Admin: 10/09/17 09:57 Dose: 100 mls/hr Lactulose (Enulose) 20 gm PO BID [facility] Last Admin: 10/09/17 17:20 Dose: Not Given Midodrine (Proamatine) 5 mg PO TID [facility] Last Admin: 10/09/17 17:21 Dose: 5 mg Ondansetron HCl (Zofran Inj) 4 mg IVP Q4H PRN PRN Reason: Nausea/Vomiting Last Admin: 10/06/17 09:50 Dose: 4 mg Oxycodone HCl (Oxycodone Immediate Release Tab) 5 mg PO HS PRN PRN Reason: Pain, severe (8-10) Last Admin: 10/09/17 21:44 Dose: 5 mg Pantoprazole Sodium (Protonix Ec Tab) 40 mg PO 0600 [facility] Last Admin: 10/10/17 06:10 Dose: 40 mg Potassium Phos/Sodium Phos (Neutra-Phos) 1 pkt PO BID [facility] Last Admin: 10/09/17 17:21 Dose: 1 pkt Rifaximin (Xifaxan) 550 mg PO BID [facility] PRN Reason: Protocol Last Admin: 10/09/17 17:21 Dose: 550 mg - Labs Labs: 10/09/17 05:00 10/09/17 05:00 PT 18.8 SECONDS (9.4-12.5) H 10/08/17 05:00 INR 1.69 (0.93-1.08) H 10/08/17 05:00 APTT 33.5 Seconds (25.1-36.5) 10/06/17 04:45 - Constitutional Appears: Cachectic, Chronically Ill - Head Exam Head Exam: ATRAUMATIC, NORMAL INSPECTION, NORMOCEPHALIC - Eye Exam Eye Exam: EOMI, Normal appearance, PERRL Pupil Exam: PERRL - ENT Exam ENT Exam: Mucous Membranes Moist, Normal Exam - Neck Exam Neck Exam: Full ROM, Normal Inspection - Respiratory Exam Respiratory Exam: Clear to Ausculation Bilateral - Cardiovascular Exam Cardiovascular Exam: RRR, +S1, +S2 - GI/Abdominal Exam GI & Abdominal Exam: Distended, Soft, Tenderness, Normal Bowel Sounds. absent: Organomegaly - Rectal Exam Rectal Exam: Deferred Additional comments: fluid waves, ascites - Extremities Exam Extremities Exam: Full ROM, Normal Inspection. absent: Pedal Edema - Back Exam Back Exam: NORMAL INSPECTION - Neurological Exam Neurological Exam: Alert, Awake, Oriented x3 - Psychiatric Exam Psychiatric exam: Normal Affect, Normal Mood - Skin Skin Exam: Dry, Intact, Normal Color, Warm Assessment and Plan - Assessment and Plan (Free Text) Assessment: This is a 62yM presenting with acute onset of hematemesis and anemia. 1. UGIB Variceal resolved 2. Anemia 3. Decompensated cirrhosis MELD 24 on admission 4. Hx of GI bleeding 5. CAD s/p bare metal [id number] ago 6. Hx of Acites s/p 7L paracentesis 10/04/17 7. Hx of HE 8. KEYUR resolved Plan: -Continue supportive care with close monitoring -Resolved UGIB with hematemesis with no further melena -Hgb stable, monitor H/H -s/p emergent endoscopy with 9 variceal banding in distal and midesophagus -Continue po PPI daily -Soft diet -Can restart diuretics with KEYUR resolved, Cr improved -Continue lactulose and rifaxamin for HE prevention -Can restart nadolol for variceal bleeding prophylaxis -Continue abx IV Ceftriaxone for UGIB for total 7 days currently day 5 abx, can change to po ciprofloxacin 500mg bid -Pt with ascites, will need repeat paracentesis today, cell count and culture ordered -Will need repeat EGD as an outpt in 6 weeks to evaluated eradication of varices and rebanding and colonoscopy for CRC screening -Pt will need outpt HCC screening with Liver Triple Phase -Will continue to follow pt closely <Delonte Garcia - Last Filed: 10/10/17 10:26> Objective - Vital Signs/Intake and Output Vital Signs (last 24 hours): Temp Pulse Resp BP Pulse Ox 98.5 F 68 18 99/52 L 99 10/10/17 06:00 10/10/17 06:00 10/10/17 06:00 10/10/17 06:00 10/10/17 06:00 Intake and Output: 10/10/17 10/10/17 06:59 18:59 Intake Total 510 Balance 510 - Medications Medications: Current Medications Aspirin (Ecotrin) 81 mg PO DAILY [facility] Last Admin: 10/10/17 09:57 Dose: 81 mg Ceftriaxone Sodium (Rocephin 1 Gram Ivpb) 1 gm in 100 mls @ 100 mls/hr IVPB DAILY [facility] PRN Reason: Protocol Last Admin: 10/10/17 09:58 Dose: 100 mls/hr Lactulose (Enulose) 20 gm PO BID [facility] Last Admin: 10/10/17 10:09 Dose: Not Given Midodrine (Proamatine) 5 mg PO TID [facility] Last Admin: 10/10/17 09:57 Dose: 5 mg Ondansetron HCl (Zofran Inj) 4 mg IVP Q4H PRN PRN Reason: Nausea/Vomiting Last Admin: 10/06/17 09:50 Dose: 4 mg Oxycodone HCl (Oxycodone Immediate Release Tab) 5 mg PO HS PRN PRN Reason: Pain, severe (8-10) Last Admin: 10/09/17 21:44 Dose: 5 mg Pantoprazole Sodium (Protonix Ec Tab) 40 mg PO 0600 [facility] Last Admin: 10/10/17 06:10 Dose: 40 mg Potassium Phos/Sodium Phos (Neutra-Phos) 1 pkt PO BID [facility] Last Admin: 10/10/17 09:57 Dose: 1 pkt Rifaximin (Xifaxan) 550 mg PO BID [facility] PRN Reason: Protocol Last Admin: 10/10/17 09:58 Dose: 550 mg - Labs Labs: 10/10/17 06:50 10/10/17 06:50 PT 15.9 SECONDS (9.4-12.5) H 10/10/17 06:50 INR 1.43 (0.93-1.08) H 10/10/17 06:50 APTT 33.5 Seconds (25.1-36.5) 10/06/17 04:45 Attending/Attestation - Attestation I have personally seen and examined this patient.: Yes I have fully participated in the care of the patient.: Yes I have reviewed all pertinent clinical information, including history, physical exam and plan: Yes Notes (Text): 10/10/17 10:19 I have seen and examined patient with GI fellow. No acute events overnight, he is seen resting in bed and appears quite comfortable. He denies abdominal pain , nausea, vomiting, fever/chills. Tolerating PO diet without difficulty. He had two bowel movements yesterday. Review of vitals from today are normal. Decompensated cirrhosis, unclear etiology Hematemesis s/p EGD with esophageal variceal band ligation Ascites CAD s/p stent Acute renal insufficiency - resolving - Low sodium diet as tolerated - Can discontinue antibiotic therapy as patient has completed 5 day course - Continue with lactulose and xifaxan therapy for HE prevention, titrated so patient has 3 bowel movements daily - Patient scheduled for repeat abdominal US with possible therapeutic paracentesis today, will need albumin replacement therapy if paracentesis performed given recent renal insufficiency - Pending results of study, can likely resume diuretic therapy with Lasix 40 mg and Aldactone 100 mg PO daily, monitor electrolytes - Can begin non-selective b-ameya therapy and monitor heart rate - Patient would benefit from elective outpatient CT triple phase liver for HCC screening following resolution of acute symptoms along with repeat EGD within 2 months for variceal screening and colonoscopy for routine cancer screening. - No further planned GI intervention, will sign off case. Please reconsult as necessary, thank you.
[2017-10-10 07:26] LABS: BASO # 0.04 K/mm3 (0.0-2.0); BASO % 0.9 % (0.0-3.0); EOS # 0.2 (0.0-0.7); EOS % 3.7 % (1.5-5.0); GRAN # 2.69 (1.4-6.5); GRAN % 57.9 % (50.0-68.0); HEMATOCRIT 25.4 % (42.0-52.0); LYMPH # 1.1 (1.2-3.4); LYMPH % 23.9 % (22.0-35.0); MEAN CELL VOLUME 96.6 fl (80.0-105.0); MEAN CORPUSCULAR HEMOGLOBIN 31.9 pg (25.0-35.0); MEAN CORPUSCULAR HGB CONC 33.1 g/dl (31.0-37.0); MEAN PLATELET VOLUME 9.7 fl (7.0-11.0); MONO # 0.6 (0.1-0.6); MONO % 13.6 % (1.0-6.0); WHITE BLOOD COUNT 4.6 10^3/ul (4.5-11.0)
[2017-10-10 07:42] LABS: INR 1.43 (0.93-1.08)
[2017-10-10 08:25] LABS: ALB/GLOB RATIO 0.8 (1.1-1.8); ALKALINE PHOSPHATASE 152 U/L (38-126); ALT/SGPT 72 U/L (7-56); AST/SGOT 75 U/L (17-59); BILIRUBIN,TOTAL 2.2 mg/dL (0.2-1.3); BLOOD UREA NITROGEN 30 mg/dL (7-21); CALCIUM 8.4 mg/dL (8.4-10.5); CARBON DIOXIDE 25 mmol/L (21-33); CHLORIDE 109 mmol/L (98-107); GFR AFRICAN-AMERICAN > 60; GLUCOSE,RANDOM 83 mg/dL (70-110); PHOSPHOROUS 3.2 mg/dL (2.5-4.5); SODIUM 141 mmol/L (132-148); TOTAL PROTEIN 6.3 g/dL (5.8-8.3)
--- NOTE | 2017-10-10 09:32 | PN ---
ADDENDUM DATE: 10/07/2017 5. Hypotension. 6. History of atrial fibrillation, status post cardioversion. 7. Nonalcoholic steatohepatitis with ascites. 8. Congestive heart failure. PLAN: 1. Monitor H and H closely. 2. Transfuse to hemoglobin of 9. 3. Continue PPI. 4. Continue lactulose and Xifaxan. 5. Albumin 12.5 g x3 doses today. 6. Continue empiric antibiotics as per ID recommendations. 7. Avoid nephrotoxics. 8. Avoid hypotension. Case discussed with ICU nurses at length. More than 35 minutes was spent in the care of this critically ill patient. Jami Resendiz MD
--- NOTE | 2017-10-10 09:33 | PN ---
ADDENDUM DATE: 10/07/2017 LABORATORY DATA: Sodium 144, potassium 4.5, chloride 115, CO2 20, BUN 36, creatinine 1.6, glucose 109, calcium 8.2, phosphorous 2.9, magnesium 1.8. Total bili 4.9, AST 177, ALT 96, ammonia 96.5, albumin 3.0, globulin 3.2. Cultures no growth. 4 units of PRBC's transfused so far. CURRENT MEDICATIONS: Albumin 12.5 g q. 6 h., Levophed 4 mg in 250 mL at 4 mcg per minute, meropenem 1 g q. 12 h., octreotide 25 mcg per hour, ProAmatine 5 mg t.i.d., Protonix 40 IV b.i.d., Xifaxan 550 b.i.d. and Zofran. ASSESSMENT AND PLAN: 1. Gastrointestinal bleed, secondary to varices. Endoscopy revealed no active bleed, but evidence of recent bleeding from esophageal varices. 2. Acute renal failure secondary to hypotension, hypoperfusion. Gastrointestinal bleed plus recent large volume paracentesis. 3. Hepatic encephalopathy, hyperammonemia. Jami Resendiz MD
--- NOTE | 2017-10-10 09:33 | PN ---
DATE: 10/07/2017 SUBJECTIVE: The patient is seen lying in bed. He is awake, he is alert. He complains of pain in his upper abdomen/lower chest. He reports that he fell at home. He denies any nausea, vomiting. He denies any diarrhea, constipation. He denies any chest tightness. PHYSICAL EXAMINATION: GENERAL: Elderly male, lying in bed. VITAL SIGNS: Blood pressure 108/59, heart rate 90, respiratory rate 18 to 20, temperature 99.5. HEENT: Normocephalic, atraumatic. NECK: Supple, no JVD. LUNGS: Bilateral equal air entry, no rales. CARDIAC: S1 and S2, regular rate and rhythm, no murmur, no rub. ABDOMEN: Soft, nondistended, nontender, bowel sounds present. EXTREMITIES: No lower extremity edema. INTAKE AND OUTPUT: 6595/1445. LABORATORY DATA: WBC 12.2, hemoglobin 8.6, hematocrit 24, platelets 90. Sodium Jami Resendiz MD
[2017-10-10] MEDS: Potassium & Sodium Phosphate PO SCH ×2 (09:57→17:41)
[2017-10-10] MEDS: cefTRIAXone 1 gm 1 GM/100 ML BAG IVPB SCH (09:58)
--- NOTE | 2017-10-10 11:34 | CP.PCM.PN ---
Subjective - Date & Time of Evaluation Date of Evaluation: 10/10/17 Time of Evaluation: 11:00 - Subjective Subjective: Alert. No episodes of hematamesis or melena. Complains of weakness Objective - Vital Signs/Intake and Output Vital Signs (last 24 hours): Temp Pulse Resp BP Pulse Ox 98.5 F 68 18 99/52 L 99 10/10/17 06:00 10/10/17 06:00 10/10/17 06:00 10/10/17 06:00 10/10/17 06:00 Intake and Output: 10/10/17 10/10/17 06:59 18:59 Intake Total 510 Balance 510 - Medications Medications: Current Medications Aspirin (Ecotrin) 81 mg PO DAILY [facility] Last Admin: 10/10/17 09:57 Dose: 81 mg Ceftriaxone Sodium (Rocephin 1 Gram Ivpb) 1 gm in 100 mls @ 100 mls/hr IVPB DAILY [facility] PRN Reason: Protocol Last Admin: 10/10/17 09:58 Dose: 100 mls/hr Lactulose (Enulose) 20 gm PO BID [facility] Last Admin: 10/10/17 10:09 Dose: Not Given Midodrine (Proamatine) 5 mg PO TID [facility] Last Admin: 10/10/17 09:57 Dose: 5 mg Ondansetron HCl (Zofran Inj) 4 mg IVP Q4H PRN PRN Reason: Nausea/Vomiting Last Admin: 10/06/17 09:50 Dose: 4 mg Oxycodone HCl (Oxycodone Immediate Release Tab) 5 mg PO HS PRN PRN Reason: Pain, severe (8-10) Last Admin: 10/09/17 21:44 Dose: 5 mg Pantoprazole Sodium (Protonix Ec Tab) 40 mg PO 0600 [facility] Last Admin: 10/10/17 06:10 Dose: 40 mg Potassium Phos/Sodium Phos (Neutra-Phos) 1 pkt PO BID [facility] Last Admin: 10/10/17 09:57 Dose: 1 pkt Rifaximin (Xifaxan) 550 mg PO BID [facility] PRN Reason: Protocol Last Admin: 10/10/17 09:58 Dose: 550 mg - Labs Labs: 10/10/17 06:50 10/10/17 06:50 PT 15.9 SECONDS (9.4-12.5) H 10/10/17 06:50 INR 1.43 (0.93-1.08) H 10/10/17 06:50 APTT 33.5 Seconds (25.1-36.5) 10/06/17 04:45 - Constitutional Appears: Cachectic, Chronically Ill - Head Exam Head Exam: NORMAL INSPECTION - Eye Exam Eye Exam: Normal appearance, PERRL - ENT Exam ENT Exam: Mucous Membranes Moist - Neck Exam Neck Exam: Normal Inspection - Respiratory Exam Respiratory Exam: Clear to Ausculation Bilateral, NORMAL BREATHING PATTERN - Cardiovascular Exam Cardiovascular Exam: REGULAR RHYTHM, +S1, +S2 - GI/Abdominal Exam GI & Abdominal Exam: Distended, Hypoactive Bowel Sounds - Extremities Exam Extremities Exam: Pedal Edema - Neurological Exam Neurological Exam: Alert, Oriented x3 - Skin Skin Exam: Dry, Warm Assessment and Plan - Assessment and Plan (Free Text) Assessment: 62 year old male with history of TRUJILLO who was admitted with hematemesis, melena, esophageal varices s/p banding. The patient is alert, oriented. Complains of weakness. States he can not ambulate without assistance. Feels he needs rehab, states he can sam manage ADL' s at home. His partner works many hours and the patient is concerned about being home alone We revisited our previous conversation about seeking evaluation for liver transplant. Patient states that this is his intent. He feels he needs to work on increasing hi staminas before doing so. Encouraged to start process sooner rather than later. Psychosocial support given. 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 Plan: Palliative support in establishing future goals of care.
--- NOTE | 2017-10-10 12:14 | CP.PCM.PN ---
Subjective - Date & Time of Evaluation Date of Evaluation: 10/10/17 Time of Evaluation: 10:55 - Subjective Subjective: Patient is feeling a little better today, no fevers overnight, no vomiting, no hematemesis or melena, abdomen is still distended but not painful as per patient. He is for paracentesis today. Objective - Vital Signs/Intake and Output Vital Signs (last 24 hours): Temp Pulse Resp BP Pulse Ox 98.5 F 68 18 99/52 L 99 10/10/17 06:00 10/10/17 06:00 10/10/17 06:00 10/10/17 06:00 10/10/17 06:00 Intake and Output: 10/10/17 10/10/17 06:59 18:59 Intake Total 510 Balance 510 - Medications Medications: Current Medications Aspirin (Ecotrin) 81 mg PO DAILY [facility] Last Admin: 10/09/17 09:57 Dose: 81 mg Ceftriaxone Sodium (Rocephin 1 Gram Ivpb) 1 gm in 100 mls @ 100 mls/hr IVPB DAILY [facility] PRN Reason: Protocol Last Admin: 10/09/17 09:57 Dose: 100 mls/hr Lactulose (Enulose) 20 gm PO BID [facility] Last Admin: 10/09/17 17:20 Dose: Not Given Midodrine (Proamatine) 5 mg PO TID [facility] Last Admin: 10/09/17 17:21 Dose: 5 mg Ondansetron HCl (Zofran Inj) 4 mg IVP Q4H PRN PRN Reason: Nausea/Vomiting Last Admin: 10/06/17 09:50 Dose: 4 mg Oxycodone HCl (Oxycodone Immediate Release Tab) 5 mg PO HS PRN PRN Reason: Pain, severe (8-10) Last Admin: 10/09/17 21:44 Dose: 5 mg Pantoprazole Sodium (Protonix Ec Tab) 40 mg PO 0600 [facility] Last Admin: 10/10/17 06:10 Dose: 40 mg Potassium Phos/Sodium Phos (Neutra-Phos) 1 pkt PO BID [facility] Last Admin: 10/09/17 17:21 Dose: 1 pkt Rifaximin (Xifaxan) 550 mg PO BID [facility] PRN Reason: Protocol Last Admin: 10/09/17 17:21 Dose: 550 mg - Labs Labs: 10/09/17 05:00 10/09/17 05:00 PT 18.8 SECONDS (9.4-12.5) H 10/08/17 05:00 INR 1.69 (0.93-1.08) H 10/08/17 05:00 APTT 33.5 Seconds (25.1-36.5) 10/06/17 04:45 - Constitutional Appears: Cachectic, Chronically Ill - Head Exam Head Exam: NORMAL INSPECTION - ENT Exam ENT Exam: Mucous Membranes Moist - Neck Exam Neck Exam: absent: Lymphadenopathy, Meningismus - Respiratory Exam Respiratory Exam: Decreased Breath Sounds. absent: Rales - Cardiovascular Exam Cardiovascular Exam: +S1, +S2 - GI/Abdominal Exam GI & Abdominal Exam: Distended, Firm, Soft. absent: Guarding, Rigid, Tenderness Assessment and Plan - Assessment and Plan (Free Text) Plan: Assessment systemic inflammatory response syndrome, consider due to upper GI bleeding, consider variceal bleeding, unlikely spontaneous bacterial peritonitis since the 10/04 ascitic fluid cx are negative history of probable spontaneous bacterial peritonitis non-alcoholic steatohepatitis with liver cirrhosis and ascites Atrial fibrillation chronic renal failure Plan on Rocephin day 5 (prophylactic antibiotic therapy for probable variceal bleeding) - since the patient had variceal banding done already, and there are no signs of variceal bleeding currently, will d/c antibiotics and observe patient is for paracentesis today will continue to monitor clinically off antibiotics overall prognosis is poor
--- NOTE | 2017-10-10 16:43 | PN ---
DATE: 10/10/2017 SUBJECTIVE: The patient is seen lying in bed. He is awake, he is alert, he is comfortable. He does not appear to be in any kind of distress. PHYSICAL EXAMINATION: VITAL SIGNS: Blood pressure 99/52, heart rate 68, respiratory rate 18, temperature 98.5. HEENT: Normocephalic, atraumatic. NECK: Supple, no JVD. LUNGS: Bilateral equal air entry, no rales. CARDIAC: S1 and S2, regular rate and rhythm, no murmur, no rub. ABDOMEN: Soft, nontender, nondistended, bowel sounds present. EXTREMITIES: No lower extremity edema. INTAKE AND OUTPUT: 592/1100 LABORATORY DATA: WBC 4.6, hemoglobin 8.4, hematocrit 25.4, platelets 94. Sodium 141, potassium 4.0, chloride 109, CO2 of 25, BUN 30, creatinine 1.1, glucose 83, calcium 8.4, phosphorus 3.2, magnesium 2.0, total bili 2.2, AST 75, ALT 72, albumin 2.8, corrected calcium is 9.8. Cultures negative. CURRENT MEDICATIONS: Corgard, Ecotrin, Enulose, Neutra-Phos 1 packet b.i.d., oxycodone, ProAmatine 5 mg three times a day, Protonix, Rocephin, Xifaxan and Zofran. ASSESSMENT: 1. Resolved acute kidney injury. 2. Underlying chronic kidney disease, 2/3 suspect. 3. Severe anemia secondary to gastrointestinal bleed. 4. Atrial fibrillation. 5. Nonalcoholic steatohepatitis. 5. Hepatorenal syndrome, not likely. PLAN: 1. Continue Enulose and Xifaxan. 2. Change ProAmatine to 5 mg b.i.d. 3. Monitor H and H. 4. GI followup. Jami Resendiz MD
--- NOTE | 2017-10-10 18:37 | CP.PCM.PN ---
<Rafael Tineo - Last Filed: 10/10/17 18:38> Subjective - Date & Time of Evaluation Date of Evaluation: 10/10/17 Time of Evaluation: 07:45 - Subjective Subjective: IM Progress note - TKS DO PGY - 5 [id number] Pt s/e bedside. Pt denies any complaints at this time besides mild abdominal pain and fullness. Per nursing staff, no acute events overnight. Octreotide stopped overnight, risuvaxin stopped as well, but restarted today. No further complaints. Objective - Vital Signs/Intake and Output Vital Signs (last 24 hours): Temp Pulse Resp BP Pulse Ox 98.4 F 54 L 20 102/56 L 99 10/10/17 18:00 10/10/17 18:00 10/10/17 18:00 10/10/17 18:00 10/10/17 18:00 Intake and Output: 10/10/17 10/10/17 06:59 18:59 Intake Total 510 Balance 510 - Medications Medications: Current Medications Aspirin (Ecotrin) 81 mg PO DAILY [facility] Last Admin: 10/10/17 09:57 Dose: 81 mg Ceftriaxone Sodium (Rocephin 1 Gram Ivpb) 1 gm in 100 mls @ 100 mls/hr IVPB DAILY [facility] PRN Reason: Protocol Last Admin: 10/10/17 09:58 Dose: 100 mls/hr Lactulose (Enulose) 20 gm PO BID [facility] Last Admin: 10/10/17 17:42 Dose: Not Given Midodrine (Proamatine) 5 mg PO BID [facility] Nadolol (Corgard) 20 mg PO DAILY [facility] Last Admin: 10/10/17 01:00 Dose: Not Given Ondansetron HCl (Zofran Inj) 4 mg IVP Q4H PRN PRN Reason: Nausea/Vomiting Last Admin: 10/06/17 09:50 Dose: 4 mg Oxycodone HCl (Oxycodone Immediate Release Tab) 5 mg PO HS PRN PRN Reason: Pain, severe (8-10) Last Admin: 10/09/17 21:44 Dose: 5 mg Pantoprazole Sodium (Protonix Ec Tab) 40 mg PO 0600 [facility] Last Admin: 10/10/17 06:10 Dose: 40 mg Potassium Phos/Sodium Phos (Neutra-Phos) 1 pkt PO BID [facility] Last Admin: 10/10/17 17:41 Dose: 1 pkt Rifaximin (Xifaxan) 550 mg PO BID [facility] PRN Reason: Protocol Last Admin: 10/10/17 17:41 Dose: 550 mg - Labs Labs: 10/10/17 06:50 10/10/17 06:50 PT 15.9 SECONDS (9.4-12.5) H 10/10/17 06:50 INR 1.43 (0.93-1.08) H 10/10/17 06:50 APTT 33.5 Seconds (25.1-36.5) 10/06/17 04:45 - Additional Findings Additional findings: Phys Exam: VS as below Const'l: a&o x 4, nad Head/Neck: neck supple, no jvd, trachea midline, carotid midline, no cervical /head mass Eyes: verito, nonicteric sclera, eom intact ENT: auditory acuity grossly intact, throat not congested, no nasal deformity Cardio: rrr, no m/r/g, no carotid bruit, nml s1, s2 Pulm: no accessory muscle use, equal nml breath sounds bilaterally, ctab Abd: +fluid wave present; mild TTP in diffuse quadrants; s/nd, nbs x 4 q, no palpable masses Derm: no rashes, no ulcers, no lesions Extr: no edema, no cyanosis, no calf tenderness, no lesions, no varicosities Neuro: cn II-XII grossly intact, ue and le 5/5 muscle strength bilaterally, no los ue, le bilaterally and core Assessment and Plan - Assessment and Plan (Free Text) Assessment: A/P 62 M with PMHx of TRUJILLO, afib s/p cardioversion, HTN, GERD, CHF whom presented with hematemesis and was found to have ascites s/p paracentesis and anemia s/p 4 units of prbc transfusions and EGD with 9 gastric banding of varices. Pt is likely for paracentesis tomorrow. Octreotide infusion to stop tonight. 1) Hematemesis secondary to variceal bleeding due to decompensated cirrhosis - S/p EGD with 9 variceal banding in the distal and midesophagus - S/p transfusions with 4 units of prbc and a unit of platelet. - Will continue with octreotide drip and protonix as per Gi. - Patient will need Nadolol once hemodynamically stable as per gi. - GI following, BB for prophylaxis for recurrent bleeding, recommending outpatient EGD and colonoscopy in 6 weeks for rebanding - Octreotide d/c - GI would like to do paracentesis before discharge. Atthistime, ICU attending did not perform paracentesis. Will discuss options tomorrow. 2) Anemia due to GI bleeding - S/p 4 units of prbc transfused - H/H remains stable - Hematemesis has resolved no further signs of bleeding - will continue to monitor for now. 3) SIRS in the setting of ascites - SBP was ruled out - Cultures with so far no growth - Afebrile and leukocysotis trended down. - ID following - Will continue with rocephin as per ID 4) Decompensated liver cirrhosis with ascites with h/o TRUJILLO - s/p therapeutic and diagnostic paracentesis, on admission, removed 7 litters. Likely for paracentesis tomorrow - Patient was given albumin - MELD score was 24, now 19 - Will continue to trend LFTs. - Patient will need to follow up with [facility] upon discharge. 5) KEYUR due to ATN from hemorrhagic shock - Creatinine continues to improve - Nephrology following 6) Hepatic encephalopathy with transient AMS - Mental status improved - Ammonia levels also trended - will continue Rifaximin 550mg po bid - Patient is also on lactulose. 7) Hemorrhagic shock likely due to GI bleed. - Patient is currently off of levophed drip - BP remains stable with po midodrine - Will continue to maintain MAP above 65. 8) History A-fib s/p cardioversion - Currently NSR - will continue to monitor. 9) CAD s/p bare metal stent - Retarted on asa - plavix on hold due to thrombocytopenia and GI bleed. 10) Diastolic CHF- Currently stable, will continue to monitor. 11) On protonix and compressive devices for GI and DVT prophylaxis. <Fay Das - Last Filed: 10/11/17 12:14> Objective - Vital Signs/Intake and Output Vital Signs (last 24 hours): Temp Pulse Resp BP Pulse Ox 98.5 F 70 18 109/61 99 10/11/17 06:00 10/11/17 09:49 10/11/17 06:00 10/11/17 09:49 10/11/17 06:00 Intake and Output: 10/11/17 10/11/17 06:59 18:59 Intake Total 120 Output Total 200 Balance -80 - Medications Medications: Current Medications Aspirin (Ecotrin) 81 mg PO DAILY [facility] Last Admin: 10/11/17 09:34 Dose: 81 mg Ceftriaxone Sodium (Rocephin 1 Gram Ivpb) 1 gm in 100 mls @ 100 mls/hr IVPB DAILY [facility] PRN Reason: Protocol Last Admin: 10/11/17 09:35 Dose: 100 mls/hr Lactulose (Enulose) 20 gm PO BID [facility] Last Admin: 10/11/17 09:49 Dose: Not Given Nadolol (Corgard) 20 mg PO DAILY [facility] Last Admin: 10/11/17 09:49 Dose: Not Given Ondansetron HCl (Zofran Inj) 4 mg IVP Q4H PRN PRN Reason: Nausea/Vomiting Last Admin: 10/06/17 09:50 Dose: 4 mg Oxycodone HCl (Oxycodone Immediate Release Tab) 5 mg PO HS PRN PRN Reason: Pain, severe (8-10) Last Admin: 10/10/17 21:08 Dose: 5 mg Pantoprazole Sodium (Protonix Ec Tab) 40 mg PO 0600 [facility] Last Admin: 10/11/17 05:39 Dose: 40 mg Potassium Phos/Sodium Phos (Neutra-Phos) 1 pkt PO BID [facility] Last Admin: 10/11/17 09:33 Dose: 1 pkt Rifaximin (Xifaxan) 550 mg PO BID [facility] PRN Reason: Protocol Last Admin: 10/11/17 09:33 Dose: 550 mg - Labs Labs: 10/11/17 06:25 10/11/17 06:25 PT 15.9 SECONDS (9.4-12.5) H 10/10/17 06:50 INR 1.43 (0.93-1.08) H 10/10/17 06:50 APTT 33.5 Seconds (25.1-36.5) 10/06/17 04:45 Attending/Attestation - Attestation I have personally seen and examined this patient.: Yes I have fully participated in the care of the patient.: Yes I have reviewed all pertinent clinical information, including history, physical exam and plan: Yes Notes (Text): I have seen and examined the patient at bedside. Agree with the above note with the following additions/ exceptions: Briefly this is 62 year old male with history of cryptogenic cirrhosis, former smoker, former alcohol abuser, HTN, CHF (EF~45-50%), afib recently cardioverted to normal sinus rhythm, CAD s/p bare metal stent on aspirin who was admitted with GI bleed secondary to esophageal varices and portal gastropathy. He is status post EGD and banding x9. Currently feeling well and denies any bleeding. He is able to eat without any problem and has a good appetite. Continue Protonix. Hypotension has resolved therefore we will stop midodrine and restart nadolol. Paracentesis was done on 10/04. Ascitic fluid has been negative. Continue rifaxamin. Patient refuses to take lactulose due to diarrhea. He had 2 BM's today. Advised patient to follow up with [facility] Hepatology / transplant clinic. Upon discharge patient will follow up with Dr. Lew. Dr Fay Das
[2017-10-10] MEDS: oxyCODONE 5 mg Immediate Release Tab PO PRN (21:08)
[2017-10-11] MEDS: Pantoprazole 40 mg EC Tab PO SCH (05:39)
[2017-10-11 07:07] LABS: BASO # 0.05 K/mm3 (0.0-2.0); BASO % 1.1 % (0.0-3.0); EOS # 0.3 (0.0-0.7); EOS % 5.3 % (1.5-5.0); GRAN # 2.49 (1.4-6.5); GRAN % 52.8 % (50.0-68.0); HEMATOCRIT 26.5 % (42.0-52.0); LYMPH # 1.2 (1.2-3.4); LYMPH % 25.3 % (22.0-35.0); MEAN CELL VOLUME 96.7 fl (80.0-105.0); MEAN CORPUSCULAR HEMOGLOBIN 31.4 pg (25.0-35.0); MEAN CORPUSCULAR HGB CONC 32.5 g/dl (31.0-37.0); MEAN PLATELET VOLUME 9.7 fl (7.0-11.0); MONO # 0.7 (0.1-0.6); MONO % 15.5 % (1.0-6.0); RED CELL DISTRIBUTION WIDTH 19.6 % (11.5-14.5); WHITE BLOOD COUNT 4.7 10^3/ul (4.5-11.0)
[2017-10-11 07:17] LABS: ALB/GLOB RATIO 0.8 (1.1-1.8); ALKALINE PHOSPHATASE 167 U/L (38-126); ALT/SGPT 66 U/L (7-56); AST/SGOT 63 U/L (17-59); BILIRUBIN,TOTAL 1.7 mg/dL (0.2-1.3); BLOOD UREA NITROGEN 26 mg/dL (7-21); CALCIUM 8.3 mg/dL (8.4-10.5); CARBON DIOXIDE 24 mmol/L (21-33); CHLORIDE 106 mmol/L (98-107); GFR AFRICAN-AMERICAN > 60; GLUCOSE,RANDOM 89 mg/dL (70-110); MAGNESIUM 1.9 mg/dL (1.7-2.2); PHOSPHOROUS 3.4 mg/dL (2.5-4.5); POTASSIUM 3.9 mmol/L (3.6-5.0); SODIUM 138 mmol/L (132-148); TOTAL PROTEIN 6.4 g/dL (5.8-8.3)
[2017-10-11] MEDS: Potassium & Sodium Phosphate PO SCH ×2 (09:33→17:50)
[2017-10-11] MEDS: cefTRIAXone 1 gm 1 GM/100 ML BAG IVPB SCH (09:35)
--- NOTE | 2017-10-11 13:35 | PN ---
DATE: 10/11/2017 LOCATION: The patient is seen in room 375, bed 2. SUBJECTIVE: Patient is seen earlier today. No fevers, no chills. He states he is doing much better. OBJECTIVE: VITAL SIGNS: Temperature is 98, blood pressure is 110/50, respiratory rate of 18, heart rate of 63. HEENT: Unremarkable. NECK: Supple. LUNGS: Have decreased breath sounds. HEART: Normal S1, S2. ABDOMEN: Soft, nontender. LABORATORY EXAMINATION: Reveals a white count of 4.7, hemoglobin of 8, platelets of 90. Chemistries reveals a BUN of 26, creatinine of 1.2. Immunology is noted and microbiology reveals blood cultures are negative and nasal cultures are negative and review of orders reveals the patient to be on ceftriaxone. ASSESSMENT AND PLAN: A 62-year-old male with systemic inflammatory response syndrome with upper gastrointestinal bleed with variceal bleeding and ascitic fluid cultures negative with a history of probable spontaneous bacterial peritonitis and nonalcoholic steatohepatitis, liver cirrhosis and ascites on day #6 of ceftriaxone. Bravo Christensen MD
--- NOTE | 2017-10-11 14:17 | CP.PCM.PN ---
<NomanRafael - Last Filed: 10/11/17 14:09> Subjective - Date & Time of Evaluation Date of Evaluation: 10/11/17 Time of Evaluation: 11:50 - Subjective Subjective: IM Progress note - TKS DO PGY - 3 [phone] Pt s/e bedside. Pt denies any complaints at this time besides mild abdominal pain and fullness. Per nursing staff, no acute events overnight. Need to discuss utility of paracentesis with GI team - after that is figured out, will restart spironolactone and lasix. No further complaints. Objective - Vital Signs/Intake and Output Vital Signs (last 24 hours): Temp Pulse Resp BP Pulse Ox 98.5 F 70 18 109/61 99 10/11/17 06:00 10/11/17 09:49 10/11/17 06:00 10/11/17 09:49 10/11/17 06:00 Intake and Output: 10/11/17 10/11/17 06:59 18:59 Intake Total 120 Output Total 200 Balance -80 - Medications Medications: Current Medications Aspirin (Ecotrin) 81 mg PO DAILY [facility] Last Admin: 10/11/17 09:34 Dose: 81 mg Ceftriaxone Sodium (Rocephin 1 Gram Ivpb) 1 gm in 100 mls @ 100 mls/hr IVPB DAILY [facility] PRN Reason: Protocol Last Admin: 10/11/17 09:35 Dose: 100 mls/hr Lactulose (Enulose) 20 gm PO BID [facility] Last Admin: 10/11/17 09:49 Dose: Not Given Nadolol (Corgard) 20 mg PO DAILY [facility] Last Admin: 10/11/17 09:49 Dose: Not Given Ondansetron HCl (Zofran Inj) 4 mg IVP Q4H PRN PRN Reason: Nausea/Vomiting Last Admin: 10/06/17 09:50 Dose: 4 mg Oxycodone HCl (Oxycodone Immediate Release Tab) 5 mg PO HS PRN PRN Reason: Pain, severe (8-10) Last Admin: 10/10/17 21:08 Dose: 5 mg Pantoprazole Sodium (Protonix Ec Tab) 40 mg PO 0600 [facility] Last Admin: 10/11/17 05:39 Dose: 40 mg Potassium Phos/Sodium Phos (Neutra-Phos) 1 pkt PO BID [facility] Last Admin: 10/11/17 09:33 Dose: 1 pkt Rifaximin (Xifaxan) 550 mg PO BID [facility] PRN Reason: Protocol Last Admin: 10/11/17 09:33 Dose: 550 mg - Labs Labs: 10/11/17 06:25 10/11/17 06:25 PT 15.9 SECONDS (9.4-12.5) H 10/10/17 06:50 INR 1.43 (0.93-1.08) H 10/10/17 06:50 APTT 33.5 Seconds (25.1-36.5) 10/06/17 04:45 - Additional Findings Additional findings: Phys Exam: VS as below Const'l: a&o x 4, nad Head/Neck: neck supple, no jvd, trachea midline, carotid midline, no cervical /head mass Eyes: verito, nonicteric sclera, eom intact ENT: auditory acuity grossly intact, throat not congested, no nasal deformity Cardio: rrr, no m/r/g, no carotid bruit, nml s1, s2 Pulm: no accessory muscle use, equal nml breath sounds bilaterally, ctab Abd: +fluid wave present; mild TTP in diffuse quadrants; s/nd, nbs x 4 q, no palpable masses Derm: no rashes, no ulcers, no lesions Extr: no edema, no cyanosis, no calf tenderness, no lesions, no varicosities Neuro: cn II-XII grossly intact, ue and le 5/5 muscle strength bilaterally, no los ue, le bilaterally and core Assessment and Plan - Assessment and Plan (Free Text) Assessment: A/P 62 M with PMHx of TRUJILLO, afib s/p cardioversion, HTN, GERD, CHF whom presented with hematemesis and was found to have ascites s/p paracentesis and anemia s/p 4 units of prbc transfusions and EGD with 9 gastric banding of varices. Pt is likely for paracentesis tomorrow. Octreotide infusion to stop tonight. Hematemesis secondary to variceal bleeding due to decompensated cirrhosis - S/p EGD with 9 variceal banding in the distal and midesophagus - S/p transfusions with 4 units of prbc and a unit of platelet. - Will continue with octreotide drip and protonix as per Gi. - Patient will need Nadolol once hemodynamically stable as per gi. - GI following, BB for prophylaxis for recurrent bleeding, recommending outpatient EGD and colonoscopy in 6 weeks for rebanding - GI would like to do paracentesis before discharge. Atthistime, ICU attending did not perform paracentesis. Will discuss options with GI team, after which spironolactone, lasix will be restarted Anemia due to GI bleeding - resolved - S/p 4 units of prbc transfused - H/H remains stable - Hematemesis has resolved no further signs of bleeding - will continue to monitor for now. SIRS in the setting of ascites - SBP was ruled out - Cultures so far no growth - Afebrile and leukocysotis trended down. - Will continue with rocephin as per ID Decompensated liver cirrhosis with ascites with h/o TRUJILLO - MELD score was 24, now 19 - Will continue to trend LFTs. - Patient will need to follow up with [facility] upon discharge. KEYUR due to ATN from hemorrhagic shock - Creatinine continues to improve - Nephrology following Hepatic encephalopathy with transient AMS - Mental status improved - Ammonia levels also trended - will continue Rifaximin 550mg po bid - Patient is also on lactulose. Hemorrhagic shock likely due to GI bleed. - Patient is currently off of levophed drip - BP remains stable with po midodrine - Will continue to maintain MAP above 65. History A-fib s/p cardioversion - Currently NSR - will continue to monitor. CAD s/p bare metal stent - Retarted on asa - plavix on hold due to thrombocytopenia and GI bleed. Diastolic CHF- Currently stable, will continue to monitor. On protonix and compressive devices for GI and DVT prophylaxis. <Fay Das B - Last Filed: 10/11/17 15:25> Objective - Vital Signs/Intake and Output Vital Signs (last 24 hours): Temp Pulse Resp BP Pulse Ox 98.5 F 69 16 109/61 94 L 10/11/17 06:00 10/11/17 10:00 10/11/17 09:00 10/11/17 09:49 10/11/17 09:00 Intake and Output: 10/11/17 10/11/17 06:59 18:59 Intake Total 120 Output Total 200 Balance -80 - Medications Medications: Current Medications Aspirin (Ecotrin) 81 mg PO DAILY [facility] Last Admin: 10/11/17 09:34 Dose: 81 mg Ceftriaxone Sodium (Rocephin 1 Gram Ivpb) 1 gm in 100 mls @ 100 mls/hr IVPB DAILY [facility] PRN Reason: Protocol Last Admin: 10/11/17 09:35 Dose: 100 mls/hr Lactulose (Enulose) 20 gm PO BID [facility] Last Admin: 10/11/17 09:49 Dose: Not Given Nadolol (Corgard) 20 mg PO DAILY [facility] Last Admin: 10/11/17 09:49 Dose: Not Given Ondansetron HCl (Zofran Inj) 4 mg IVP Q4H PRN PRN Reason: Nausea/Vomiting Last Admin: 10/06/17 09:50 Dose: 4 mg Oxycodone HCl (Oxycodone Immediate Release Tab) 5 mg PO HS PRN PRN Reason: Pain, severe (8-10) Last Admin: 10/10/17 21:08 Dose: 5 mg Pantoprazole Sodium (Protonix Ec Tab) 40 mg PO 0600 [facility] Last Admin: 10/11/17 05:39 Dose: 40 mg Potassium Phos/Sodium Phos (Neutra-Phos) 1 pkt PO BID [facility] Last Admin: 10/11/17 09:33 Dose: 1 pkt Rifaximin (Xifaxan) 550 mg PO BID [facility] PRN Reason: Protocol Last Admin: 10/11/17 09:33 Dose: 550 mg - Labs Labs: 10/11/17 06:25 10/11/17 06:25 PT 15.9 SECONDS (9.4-12.5) H 10/10/17 06:50 INR 1.43 (0.93-1.08) H 10/10/17 06:50 APTT 33.5 Seconds (25.1-36.5) 10/06/17 04:45 Attending/Attestation - Attestation I have personally seen and examined this patient.: Yes I have fully participated in the care of the patient.: Yes I have reviewed all pertinent clinical information, including history, physical exam and plan: Yes Notes (Text): I have seen and examined the patient at bedside. Agree with the above note with the following additions/ exceptions: Briefly this is 62 year old male with history of cryptogenic cirrhosis, former smoker, former alcohol abuser, HTN, CHF (EF~45-50%), afib recently cardioverted to normal sinus rhythm, CAD s/p bare metal stent on aspirin who was admitted with GI bleed secondary to esophageal varices and portal gastropathy. He is status post EGD and banding x9. Currently feeling well and denies any bleeding. He is able to eat without any problem and has a good appetite. Continue Protonix. Hypotension has resolved therefore midodrine was stopped. Continue nadolol. Paracentesis was done on 10/04. Ascitic fluid culture has been negative. Continue rifaxamin. Patient refuses to take lactulose due to diarrhea. He had 2 BM's yesterday. Restart aldactone and lasix. PT eval pending. Advised patient to follow up with [facility] Hepatology / transplant clinic. Upon discharge patient will follow up with Dr. Lew. Dr Fay Das
--- NOTE | 2017-10-11 20:06 | PN ---
DATE: SUBJECTIVE: The patient is currently seen on 3-R, he is entirely comfortable lying supine in bed. GI bleeding apparently has stopped. His BUN and creatinine are falling back to baseline levels. MEDICATIONS: Medication list reviewed. The patient is currently on Corgard, Ecotrin, Enulose, Neutra-Phos, oxycodone p.r.n., Protonix, Rocephin, Xifaxan, and Zofran p.r.n., ProAmatine has been discontinued. OBJECTIVE: INTAKE/OUTPUT: Intake charted at 120, output charted at 200 mL. This is likely incomplete. VITAL SIGNS: Blood pressure 109/61, temperature 98.5, respiratory rate 16 with a pulse of 69, pulse ox 94% to 99% on room air. HEENT: Exam shows him to be normocephalic, atraumatic. Conjunctivae are pale. Sclera are muddy, but nonicteric. NECK: Supple. No neck vein distention. CHEST: Clear to auscultation and percussion. No rales, rhonchi or wheezing. CARDIOVASCULAR: Shows a regular rate and rhythm with soft systolic murmur left lower sternal border. No rub. ABDOMEN: Soft. Mild ascites. Bowel sounds normal. Mild distention. No rebound or guarding. EXTREMITIES: Show no lower extremity cyanosis, clubbing or edema. NEUROLOGIC: Shows no asterixis. LABORATORY AND IMAGING: CBC today white blood cell count 4.7, hemoglobin 8.6, platelet count of 90,000. Coags; PT of 15.9 with an INR of 1.43. Chemistries showed normal electrolytes. BUN is 26 improved from 41. Creatinine is down from 2.1 to 1.2 at or near his baseline levels. Calcium is 8.3, phosphorus and magnesium a normal. Bilirubin 1.7. Mild elevation of liver enzymes, but improved, ammonia levels down to less than 9 on Xifaxan and Enulose. Albumin is stable at 2.8. Microbiology, all cultures negative to date. ASSESSMENT: 1. Status post acute renal failure. No evidence for pedal renal syndrome. With resolution of his hypotension with improved renal perfusion, his BUN and creatinine have fallen back to normal. He is status post a mild case of acute tubular necrosis. 2. History of anemia secondary to gastrointestinal bleeding. This felt to be secondary to portal hypertension with variceal bleeding. He has nonalcoholic steatohepatitis with cirrhosis. The patient has received a total of 4 units of packed red blood cells, 2 units of fresh frozen plasma 1 unit of platelets. 3. History of atrial fibrillation status post cardioversion. 4. Hypophosphatemia. Phosphorus has been supplement, his phosphorus level is now normal. PLAN: 1. The patient presently is stable. His BUN and creatinine are within acceptable limits. 2. Continue Enulose and Xifaxan to prevent hepatic encephalopathy. 3. Continue to monitor accurate I's and O's. 4. From a renal standpoint, the patient is entirely stable. We will follow up the patient on an as needed basis. Guillermo Gonzalez MD
[2017-10-11] MEDS: oxyCODONE 5 mg Immediate Release Tab PO PRN (22:14)
[2017-10-12] MEDS: Pantoprazole 40 mg EC Tab PO SCH (05:32)
[2017-10-12] MEDS: Potassium & Sodium Phosphate PO SCH ×2 (09:35→17:28)
[2017-10-12] MEDS: cefTRIAXone 1 gm 1 GM/100 ML BAG IVPB SCH (09:35)
[2017-10-12 10:02] LABS: BASO # 0.03 K/mm3 (0.0-2.0); BASO % 0.7 % (0.0-3.0); EOS # 0.2 (0.0-0.7); EOS % 4.4 % (1.5-5.0); GRAN # 2.43 (1.4-6.5); GRAN % 56.5 % (50.0-68.0); LYMPH # 0.9 (1.2-3.4); LYMPH % 21.2 % (22.0-35.0); MEAN CELL VOLUME 97.1 fl (80.0-105.0); MEAN PLATELET VOLUME 9.5 fl (7.0-11.0); MONO # 0.7 (0.1-0.6); MONO % 17.2 % (1.0-6.0); RED CELL DISTRIBUTION WIDTH 19.1 % (11.5-14.5); WHITE BLOOD COUNT 4.3 10^3/ul (4.5-11.0)
[2017-10-12 10:21] LABS: ALB/GLOB RATIO 0.8 (1.1-1.8); ALKALINE PHOSPHATASE 194 U/L (38-126); ALT/SGPT 61 U/L (7-56); AST/SGOT 53 U/L (17-59); BILIRUBIN,TOTAL 2.2 mg/dL (0.2-1.3); BLOOD UREA NITROGEN 19 mg/dL (7-21); CALCIUM 8.4 mg/dL (8.4-10.5); CARBON DIOXIDE 24 mmol/L (21-33); CHLORIDE 104 mmol/L (98-107); GFR AFRICAN-AMERICAN > 60; GLUCOSE,RANDOM 133 mg/dL (70-110); POTASSIUM 4.4 mmol/L (3.6-5.0); SODIUM 137 mmol/L (132-148); TOTAL PROTEIN 6.8 g/dL (5.8-8.3)
[2017-10-12] MEDS ORDERED: Albumin Human 25% (12.5 gm/50 ml) IV ONE ×3 (14:10→14:30)
--- NOTE | 2017-10-12 14:52 | CP.PCM.PN ---
<NomanRafael Alvarado - Last Filed: 10/12/17 14:49> Subjective - Date & Time of Evaluation Date of Evaluation: 10/12/17 Time of Evaluation: 14:49 - Subjective Subjective: IM Progress note - TKS DO PGY - 8 [id number] Pt s/e bedside. Pt denies any complaints at this time besides mild abdominal pain and fullness. Per nursing staff, no acute events overnight. Need to discuss utility of paracentesis with GI team - after that is figured out, will restart spironolactone and lasix. No further complaints. Objective - Vital Signs/Intake and Output Vital Signs (last 24 hours): Temp Pulse Resp BP Pulse Ox 98.3 F 67 16 140/82 95 10/12/17 06:00 10/12/17 10:00 10/12/17 06:00 10/12/17 09:33 10/12/17 06:00 Intake and Output: 10/12/17 10/12/17 06:59 18:59 Intake Total 400 300 Output Total 600 Balance 400 -300 - Medications Medications: Current Medications Aspirin (Ecotrin) 81 mg PO DAILY [facility] Last Admin: 10/12/17 09:33 Dose: 81 mg Furosemide (Lasix) 40 mg PO DAILY [facility] Last Admin: 10/12/17 09:33 Dose: 40 mg Ceftriaxone Sodium (Rocephin 1 Gram Ivpb) 1 gm in 100 mls @ 100 mls/hr IVPB DAILY [facility] PRN Reason: Protocol Last Admin: 10/12/17 09:35 Dose: 100 mls/hr Lactulose (Enulose) 20 gm PO BID [facility] Last Admin: 10/12/17 09:33 Dose: Not Given Nadolol (Corgard) 10 mg PO DAILY [facility] Ondansetron HCl (Zofran Inj) 4 mg IVP Q4H PRN PRN Reason: Nausea/Vomiting Last Admin: 10/06/17 09:50 Dose: 4 mg Oxycodone HCl (Oxycodone Immediate Release Tab) 5 mg PO HS PRN PRN Reason: Pain, severe (8-10) Last Admin: 10/11/17 22:14 Dose: 5 mg Pantoprazole Sodium (Protonix Ec Tab) 40 mg PO 0600 [facility] Last Admin: 10/12/17 05:32 Dose: 40 mg Potassium Phos/Sodium Phos (Neutra-Phos) 1 pkt PO BID [facility] Last Admin: 10/12/17 09:35 Dose: 1 pkt Rifaximin (Xifaxan) 550 mg PO BID [facility] PRN Reason: Protocol Last Admin: 10/12/17 09:35 Dose: 550 mg Spironolactone (Aldactone) 50 mg PO BID [facility] - Labs Labs: 10/12/17 09:30 10/12/17 09:30 PT 15.9 SECONDS (9.4-12.5) H 10/10/17 06:50 INR 1.43 (0.93-1.08) H 10/10/17 06:50 APTT 33.5 Seconds (25.1-36.5) 10/06/17 04:45 - Additional Findings Additional findings: Phys Exam: VS as below Const'l: a&o x 4, nad Head/Neck: neck supple, no jvd, trachea midline, carotid midline, no cervical /head mass Eyes: verito, nonicteric sclera, eom intact ENT: auditory acuity grossly intact, throat not congested, no nasal deformity Cardio: rrr, no m/r/g, no carotid bruit, nml s1, s2 Pulm: no accessory muscle use, equal nml breath sounds bilaterally, ctab Abd: +fluid wave present; mild TTP in diffuse quadrants; s/nd, nbs x 4 q, no palpable masses Derm: no rashes, no ulcers, no lesions Extr: no edema, no cyanosis, no calf tenderness, no lesions, no varicosities Neuro: cn II-XII grossly intact, ue and le 5/5 muscle strength bilaterally, no los ue, le bilaterally and core Assessment and Plan - Assessment and Plan (Free Text) Assessment: A/P 62 M with PMHx of TRUJILLO, afib s/p cardioversion, HTN, GERD, CHF whom presented with hematemesis and was found to have ascites s/p paracentesis and anemia s/p 4 units of prbc transfusions and EGD with 9 gastric banding of varices. Pt is likely for paracentesis tomorrow. Octreotide infusion to stop tonight. Hematemesis secondary to variceal bleeding due to decompensated cirrhosis - GI following, BB for prophylaxis for recurrent bleeding, recommending outpatient EGD and colonoscopy in 6 weeks for rebanding * Nadolol reduced to 10 mg, as per old dosage - GI would like to do paracentesis before discharge. * Performed today by Dr. Casey, resident on GI service. Anemia due to GI bleeding - resolved - S/p 4 units of prbc transfused - Hematemesis has resolved no further signs of bleeding SIRS in the setting of ascites - Afebrile and leukocysotis trended down. - Will continue with rocephin as per ID - Paracentesis performed today by Dr. Casey Decompensated liver cirrhosis with ascites with h/o TRUJILLO - MELD score was 24, now 19 - Will continue to trend LFTs. - Patient will need to follow up with [facility] upon discharge. KEYUR due to ATN from hemorrhagic shock - Creatinine continues to improve - Nephrology following Hepatic encephalopathy with transient AMS - Mental status improved - Ammonia levels also trended - will continue Rifaximin 550mg po bid Hemorrhagic shock likely due to GI bleed. - Will continue to maintain MAP above 65. History A-fib s/p cardioversion - Currently NSR - will continue to monitor. CAD s/p bare metal stent - Restarted on asa Diastolic CHF- Currently stable, will continue to monitor. On protonix and compressive devices for GI and DVT prophylaxis <Fay Das - Last Filed: 10/12/17 16:41> Objective - Vital Signs/Intake and Output Vital Signs (last 24 hours): Temp Pulse Resp BP Pulse Ox 98.3 F 67 16 140/82 95 10/12/17 06:00 10/12/17 10:00 10/12/17 06:00 10/12/17 09:33 10/12/17 06:00 Intake and Output: 10/12/17 10/12/17 06:59 18:59 Intake Total 400 300 Output Total 600 Balance 400 -300 - Medications Medications: Current Medications Aspirin (Ecotrin) 81 mg PO DAILY [facility] Last Admin: 10/12/17 09:33 Dose: 81 mg Furosemide (Lasix) 40 mg PO DAILY [facility] Last Admin: 10/12/17 09:33 Dose: 40 mg Ceftriaxone Sodium (Rocephin 1 Gram Ivpb) 1 gm in 100 mls @ 100 mls/hr IVPB DAILY [facility] PRN Reason: Protocol Last Admin: 10/12/17 09:35 Dose: 100 mls/hr Lactulose (Enulose) 20 gm PO BID [facility] Last Admin: 10/12/17 09:33 Dose: Not Given Nadolol (Corgard) 10 mg PO DAILY [facility] Ondansetron HCl (Zofran Inj) 4 mg IVP Q4H PRN PRN Reason: Nausea/Vomiting Last Admin: 10/06/17 09:50 Dose: 4 mg Oxycodone HCl (Oxycodone Immediate Release Tab) 5 mg PO HS PRN PRN Reason: Pain, severe (8-10) Last Admin: 10/11/17 22:14 Dose: 5 mg Pantoprazole Sodium (Protonix Ec Tab) 40 mg PO 0600 [facility] Last Admin: 10/12/17 05:32 Dose: 40 mg Potassium Phos/Sodium Phos (Neutra-Phos) 1 pkt PO BID [facility] Last Admin: 10/12/17 09:35 Dose: 1 pkt Rifaximin (Xifaxan) 550 mg PO BID [facility] PRN Reason: Protocol Last Admin: 10/12/17 09:35 Dose: 550 mg Spironolactone (Aldactone) 50 mg PO BID [facility] - Labs Labs: 10/12/17 09:30 10/12/17 09:30 PT 15.9 SECONDS (9.4-12.5) H 10/10/17 06:50 INR 1.43 (0.93-1.08) H 10/10/17 06:50 APTT 33.5 Seconds (25.1-36.5) 10/06/17 04:45 Attending/Attestation - Attestation I have personally seen and examined this patient.: Yes I have fully participated in the care of the patient.: Yes I have reviewed all pertinent clinical information, including history, physical exam and plan: Yes Notes (Text): I have seen and examined the patient at bedside. Agree with the above note with the following additions/ exceptions: Briefly this is 62 year old male with history of cryptogenic cirrhosis, former smoker, former alcohol abuser, HTN, CHF (EF~45-50%), afib recently cardioverted to normal sinus rhythm, CAD s/p bare metal stent on aspirin who was admitted with GI bleed secondary to esophageal varices and portal gastropathy. He is status post EGD and banding x9. Currently feeling well and denies any bleeding. He is able to eat without any problem and has a good appetite. Continue Protonix. Continue nadolol. Paracentesis was done on 10/04. Ascitic fluid culture has been negative. Continue rifaxamin. Patient refuses to take lactulose due to diarrhea. He had 2 BM's today. Abdominal distention and tenderness was noted today. Plan for paracentes. Continue aldactone and lasix. PT eval recommended NONA. Awaiting placement. Advised patient to follow up with [facility] Hepatology / transplant clinic. Upon discharge patient will follow up with Dr. Lew. Dr Fay Das
[2017-10-12 15:07] LABS: BODY FLUID TYPE PERITONEAL/ASCITES
--- NOTE | 2017-10-12 15:14 | PCM.PROC ---
Procedures Attestation:: I certify that I have explained the specified Operation(s) or Procedure(s), risks, benefits and reasonable alternatives to the Patient and/or other person responsible. The opportunity was given to ask questions and all questions answered - Paracentesis Consent Obtained: written consent Time Out Performed: Yes Indication: Ascites, possible spontaneous bacterial peritonitis Procedure: therapeutic paracentesis Location: RLQ Local Anesthetic Used: lidocaine 1% Additional Comments - Additional Comments Additional Comments: Written and verbal consent obtained. Albumin 12.5g being given during procedure. Time out performed. 3060ml of clear yellow fluid drained. No immediate complications. Patient tolerated procedure well. Fluid sent for analysis. Albumin to be repleted.
[2017-10-12 15:56] LABS: BF GROSS APPEARANCE CLEAR (CLEAR)
[2017-10-12 15:58] LABS: BODY FLUID TOTAL COUNT 100 (0-0)
--- NOTE | 2017-10-12 18:28 | CP.PCM.PN ---
Subjective - Date & Time of Evaluation Date of Evaluation: 10/12/17 Time of Evaluation: 11:35 - Subjective Subjective: Comfortable, no hematemesis, no fevers overnight, no melena. Objective - Vital Signs/Intake and Output Vital Signs (last 24 hours): Temp Pulse Resp BP Pulse Ox 98.3 F 76 16 140/82 95 10/12/17 06:00 10/12/17 09:34 10/12/17 06:00 10/12/17 09:33 10/12/17 06:00 Intake and Output: 10/12/17 10/12/17 06:59 18:59 Intake Total 400 Balance 400 - Medications Medications: Current Medications Aspirin (Ecotrin) 81 mg PO DAILY [facility] Last Admin: 10/12/17 09:33 Dose: 81 mg Furosemide (Lasix) 40 mg PO DAILY [facility] Last Admin: 10/12/17 09:33 Dose: 40 mg Ceftriaxone Sodium (Rocephin 1 Gram Ivpb) 1 gm in 100 mls @ 100 mls/hr IVPB DAILY [facility] PRN Reason: Protocol Last Admin: 10/12/17 09:35 Dose: 100 mls/hr Lactulose (Enulose) 20 gm PO BID [facility] Last Admin: 10/12/17 09:33 Dose: Not Given Nadolol (Corgard) 20 mg PO DAILY [facility] Last Admin: 10/12/17 09:34 Dose: 20 mg Ondansetron HCl (Zofran Inj) 4 mg IVP Q4H PRN PRN Reason: Nausea/Vomiting Last Admin: 10/06/17 09:50 Dose: 4 mg Oxycodone HCl (Oxycodone Immediate Release Tab) 5 mg PO HS PRN PRN Reason: Pain, severe (8-10) Last Admin: 10/11/17 22:14 Dose: 5 mg Pantoprazole Sodium (Protonix Ec Tab) 40 mg PO 0600 [facility] Last Admin: 10/12/17 05:32 Dose: 40 mg Potassium Phos/Sodium Phos (Neutra-Phos) 1 pkt PO BID [facility] Last Admin: 10/12/17 09:35 Dose: 1 pkt Rifaximin (Xifaxan) 550 mg PO BID [facility] PRN Reason: Protocol Last Admin: 10/12/17 09:35 Dose: 550 mg Spironolactone (Aldactone) 25 mg PO BID [facility] Last Admin: 10/12/17 09:33 Dose: 25 mg - Labs Labs: 10/12/17 09:30 10/12/17 09:30 PT 15.9 SECONDS (9.4-12.5) H 10/10/17 06:50 INR 1.43 (0.93-1.08) H 10/10/17 06:50 APTT 33.5 Seconds (25.1-36.5) 10/06/17 04:45 - Constitutional Appears: Non-toxic, No Acute Distress - Head Exam Head Exam: NORMAL INSPECTION - Respiratory Exam Respiratory Exam: Decreased Breath Sounds - Cardiovascular Exam Cardiovascular Exam: +S1, +S2 - GI/Abdominal Exam GI & Abdominal Exam: Soft. absent: Tenderness Assessment and Plan - Assessment and Plan (Free Text) Assessment: Assessment systemic inflammatory response syndrome, consider due to upper GI bleeding, consider variceal bleeding, unlikely spontaneous bacterial peritonitis since the 10/04 ascitic fluid cx are negative history of probable spontaneous bacterial peritonitis non-alcoholic steatohepatitis with liver cirrhosis and ascites Atrial fibrillation chronic renal failure Plan on Rocephin day 7 (prophylactic antibiotic therapy for probable variceal bleeding) - will d/c antibiotics and observe will continue to monitor clinically off antibiotics overall prognosis is poor
[2017-10-12] MEDS: oxyCODONE 5 mg Immediate Release Tab PO PRN (21:28)
[2017-10-13] MEDS: oxyCODONE 5 mg Immediate Release Tab PO PRN ×2 (03:00→20:44)
[2017-10-13] MEDS: Pantoprazole 40 mg EC Tab PO SCH (06:05)
[2017-10-13 08:12] LABS: ALB/GLOB RATIO 0.9 (1.1-1.8); ALKALINE PHOSPHATASE 164 U/L (38-126); ALT/SGPT 51 U/L (7-56); AST/SGOT 41 U/L (17-59); BILIRUBIN,TOTAL 2.1 mg/dL (0.2-1.3); BLOOD UREA NITROGEN 22 mg/dL (7-21); CALCIUM 8.6 mg/dL (8.4-10.5); CARBON DIOXIDE 25 mmol/L (21-33); CHLORIDE 102 mmol/L (98-107); GFR AFRICAN-AMERICAN > 60; GLUCOSE,RANDOM 79 mg/dL (70-110); POTASSIUM 4.1 mmol/L (3.6-5.0); SODIUM 136 mmol/L (132-148); TOTAL PROTEIN 6.6 g/dL (5.8-8.3)
[2017-10-13 08:27] LABS: BASO # 0.03 K/mm3 (0.0-2.0); BASO % 0.7 % (0.0-3.0); EOS # 0.2 (0.0-0.7); EOS % 4.3 % (1.5-5.0); GRAN # 2.17 (1.4-6.5); GRAN % 52.2 % (50.0-68.0); HEMATOCRIT 24.3 % (42.0-52.0); LYMPH # 1.2 (1.2-3.4); LYMPH % 29.1 % (22.0-35.0); MEAN CELL VOLUME 96.4 fl (80.0-105.0); MEAN CORPUSCULAR HEMOGLOBIN 32.1 pg (25.0-35.0); MEAN CORPUSCULAR HGB CONC 33.3 g/dl (31.0-37.0); MEAN PLATELET VOLUME 9.8 fl (7.0-11.0); MONO # 0.6 (0.1-0.6); MONO % 13.7 % (1.0-6.0); RED CELL DISTRIBUTION WIDTH 18.9 % (11.5-14.5); WHITE BLOOD COUNT 4.2 10^3/ul (4.5-11.0)
[2017-10-13] MEDS: Potassium & Sodium Phosphate PO SCH ×2 (10:06→17:52)
--- NOTE | 2017-10-13 11:43 | PN ---
DATE: 10/13/2017 SUBJECTIVE: The patient seen earlier today in 375, bed 2. He is awake and alert, answering questions appropriately, and he had an uneventful night. No fevers, no chills. No abdominal pain or diarrhea. PHYSICAL EXAMINATION: VITAL SIGNS: Temperature is 98.8, blood pressure is 90/51, respiratory rate of 20, heart rate of 74. HEENT: Unremarkable. NECK: Supple. LUNGS: Decreased breath sounds. HEART: Normal S1, S2. ABDOMEN: Soft, nontender. LABORATORY DATA: Reveals a white count of 4.2, hemoglobin of 8, platelets of 80 with 52% granulocytosis. Coagulation is noted and chemistries reveal a BUN of 22, creatinine of 1.1. Alk phos is 164. Peritoneal ascitic fluid reveals wbc's of 293 with 82% lymphocytosis. Anti-smooth muscle antibody is negative and anti-mitochondrial antibody is negative, reviewed . Cultures reveal that the blood cultures have no growth, nares MRSA is not detected. Urine cultures negative and peritoneal fluid cultures are pending. No organism seen on Gram stain. Review of orders reveals the patient to be off of antibiotics. ASSESSMENT/PLAN: This is a 62-year-old male known to me from previous admission with a history of nonalcoholic steatohepatitis, and liver cirrhosis, and ascites with systemic inflammatory response syndrome with an upper gastrointestinal bleed, variceal bleeding, and unlikely spontaneous bacterial peritonitis and the patient with atrial fibrillation and renal disease, had completed ceftriaxone therapy for 7 days, currently off of antibiotics. We will check on the final paracentesis culture results. Bravo Christensen MD
--- NOTE | 2017-10-13 12:58 | CP.PCM.PN ---
<NomanRafael - Last Filed: 10/13/17 12:58> Subjective - Date & Time of Evaluation Date of Evaluation: 10/13/17 Time of Evaluation: 12:47 - Subjective Subjective: IM progress note for Dr. Brannon Das - TKS DO PGY - Pt s/e bedside. Pt denies any complaints at this time, feels much better from yesterday in terms of being less tired and more energetic. Per nursing staff, pt had some blood in his stool yesterday, FOBT ordered. Paracentesis performed yesterday, will follow up on culture. No complaints at this time. Objective - Vital Signs/Intake and Output Vital Signs (last 24 hours): Temp Pulse Resp BP Pulse Ox 97.9 F 57 L 20 91/50 L 99 10/13/17 06:00 10/13/17 10:07 10/13/17 06:00 10/13/17 10:08 10/13/17 06:00 Intake and Output: 10/13/17 10/13/17 06:59 18:59 Intake Total 240 Balance 240 - Medications Medications: Current Medications Aspirin (Ecotrin) 81 mg PO DAILY [facility] Last Admin: 10/13/17 10:06 Dose: 81 mg Furosemide (Lasix) 40 mg PO DAILY [facility] Last Admin: 10/13/17 10:08 Dose: 40 mg Lactulose (Enulose) 20 gm PO BID [facility] Last Admin: 10/13/17 10:09 Dose: Not Given Nadolol (Corgard) 10 mg PO DAILY [facility] Last Admin: 10/13/17 10:07 Dose: Not Given Ondansetron HCl (Zofran Inj) 4 mg IVP Q4H PRN PRN Reason: Nausea/Vomiting Last Admin: 10/06/17 09:50 Dose: 4 mg Pantoprazole Sodium (Protonix Ec Tab) 40 mg PO 0600 [facility] Last Admin: 10/13/17 06:05 Dose: 40 mg Potassium Phos/Sodium Phos (Neutra-Phos) 1 pkt PO BID [facility] Last Admin: 10/13/17 10:06 Dose: 1 pkt Rifaximin (Xifaxan) 550 mg PO BID [facility] PRN Reason: Protocol Last Admin: 10/13/17 10:06 Dose: 550 mg Spironolactone (Aldactone) 50 mg PO BID [facility] Last Admin: 10/13/17 10:08 Dose: 50 mg - Labs Labs: 10/13/17 07:35 10/13/17 07:35 PT 15.9 SECONDS (9.4-12.5) H 10/10/17 06:50 INR 1.43 (0.93-1.08) H 10/10/17 06:50 APTT 33.5 Seconds (25.1-36.5) 10/06/17 04:45 - Additional Findings Additional findings: Phys Exam: VS as below Const'l: a&o x 4, nad Head/Neck: neck supple, no jvd, trachea midline, carotid midline, no cervical /head mass Eyes: verito, nonicteric sclera, eom intact ENT: auditory acuity grossly intact, throat not congested, no nasal deformity Cardio: rrr, no m/r/g, no carotid bruit, nml s1, s2 Pulm: no accessory muscle use, equal nml breath sounds bilaterally, ctab Abd: +fluid wave present; mild TTP in diffuse quadrants; s/nd, nbs x 4 q, no palpable masses Derm: no rashes, no ulcers, no lesions Extr: no edema, no cyanosis, no calf tenderness, no lesions, no varicosities Neuro: cn II-XII grossly intact, ue and le 5/5 muscle strength bilaterally, no los ue, le bilaterally and core Assessment and Plan - Assessment and Plan (Free Text) Assessment: A/P 62 M with PMHx of TRUJILLO, afib s/p cardioversion, HTN, GERD, CHF whom presented with hematemesis and was found to have ascites s/p paracentesis and anemia s/p 4 units of prbc transfusions and EGD with 9 gastric banding of varices. Pt is likely for paracentesis tomorrow. Octreotide infusion to stop tonight. Decompensated liver cirrhosis with ascites with h/o TRUJILLO - MELD score was 24, now 19 - Will continue to trend LFTs. - Patient will need to follow up with [facility] upon discharge. SIRS in the setting of ascites - Afebrile and leukocysotis trended down. - D/c Rocephin - Paracentesis performed yesterday by Dr. Jacinto Vickers, likely 2/2 GI Bleed - S/p 4 units of prbc transfused - Hematemesis has resolved, but patient had blood in stool yesterday * Will have GI follow up Hepatic encephalopathy with transient AMS - Mental status improved - Continue Rifaximin 550mg po bid History A-fib s/p cardioversion - Currently NSR - Continue to monitor. CAD s/p bare metal stent - Restarted on asa Diastolic CHF- Currently stable, will continue to monitor. Hematemesis 2/2 variceal bleeding due to decompensated cirrhosis - Resolved - Nadolol reduced to 10 mg, as per old dosage - Paracentesis before discharge. * Performed yesterday by Dr. Casey, resident on GI service [facility] due to ATN from hemorrhagic shock - Resolved - Creatinine continues to improve - Nephrology following GI/DVT PPHXS - Protonix - SCDs Dispo: - At this time, patient is stable for discharge to [facility]. Accepted to [facility], awaiting authorization from his insurance, [employer] <Fay Das - Last Filed: 10/13/17 18:00> Objective - Vital Signs/Intake and Output Vital Signs (last 24 hours): Temp Pulse Resp BP Pulse Ox 98.9 F 60 18 97/55 L 95 10/13/17 17:20 10/13/17 17:20 10/13/17 17:20 10/13/17 17:20 10/13/17 17:20 Intake and Output: 10/13/17 10/13/17 06:59 18:59 Intake Total 240 360 Output Total 200 Balance 240 160 - Medications Medications: Current Medications Aspirin (Ecotrin) 81 mg PO DAILY [facility] Last Admin: 10/13/17 10:06 Dose: 81 mg Furosemide (Lasix) 40 mg PO DAILY [facility] Last Admin: 10/13/17 10:08 Dose: 40 mg Lactulose (Enulose) 20 gm PO BID [facility] Last Admin: 10/13/17 10:09 Dose: Not Given Nadolol (Corgard) 10 mg PO DAILY [facility] Last Admin: 10/13/17 10:07 Dose: Not Given Ondansetron HCl (Zofran Inj) 4 mg IVP Q4H PRN PRN Reason: Nausea/Vomiting Last Admin: 10/06/17 09:50 Dose: 4 mg Pantoprazole Sodium (Protonix Ec Tab) 40 mg PO 0600 [facility] Last Admin: 10/13/17 06:05 Dose: 40 mg Potassium Phos/Sodium Phos (Neutra-Phos) 1 pkt PO BID [facility] Last Admin: 10/13/17 10:06 Dose: 1 pkt Rifaximin (Xifaxan) 550 mg PO BID [facility] PRN Reason: Protocol Last Admin: 10/13/17 10:06 Dose: 550 mg Spironolactone (Aldactone) 50 mg PO BID [facility] Last Admin: 10/13/17 10:08 Dose: 50 mg - Labs Labs: 10/13/17 07:35 10/13/17 07:35 PT 15.9 SECONDS (9.4-12.5) H 10/10/17 06:50 INR 1.43 (0.93-1.08) H 10/10/17 06:50 APTT 33.5 Seconds (25.1-36.5) 10/06/17 04:45 Attending/Attestation - Attestation I have personally seen and examined this patient.: Yes I have fully participated in the care of the patient.: Yes I have reviewed all pertinent clinical information, including history, physical exam and plan: Yes Notes (Text): I have seen and examined the patient at bedside. Agree with the above note with the following additions/ exceptions: Briefly this is 62 year old male with history of cryptogenic cirrhosis, former smoker, former alcohol abuser, HTN, CHF (EF~45-50%), afib recently cardioverted to normal sinus rhythm, CAD s/p bare metal stent on aspirin who was admitted with GI bleed secondary to esophageal varices and portal gastropathy. He is status post EGD and banding x9. Currently feeling well and denies any bleeding. He is able to eat without any problem and has a good appetite. Continue Protonix. Continue nadolol. Repeat Paracentesis was done yesterday followed by albumin infusion. Ascitic fluid culture has been negative. Continue rifaxamin. Patient refuses to take lactulose due to diarrhea. He had 1 BM today. Patient reported that he had blood in the stoold. FOBT came back positive. Will monitor cbc closely. Will discuss with GI. Abdominal distention and tenderness was resolved post paracentesis. Continue aldactone and lasix. PT eval recommended NONA. Awaiting placement. Advised patient to follow up with [facility] Hepatology / transplant clinic. Upon discharge patient will follow up with Dr. Lew. Dr Fay Das
[2017-10-13 20:12] LABS: HEMATOCRIT 25.1 % (42.0-52.0); MEAN CELL VOLUME 96.2 fl (80.0-105.0); MEAN CORPUSCULAR HEMOGLOBIN 32.6 pg (25.0-35.0); MEAN CORPUSCULAR HGB CONC 33.9 g/dl (31.0-37.0); MEAN PLATELET VOLUME 9.2 fl (7.0-11.0); RED CELL DISTRIBUTION WIDTH 18.6 % (11.5-14.5); WHITE BLOOD COUNT 5.3 10^3/ul (4.5-11.0)
[2017-10-14 04:16] LABS: PH,URINE 5.5 (4.7-8.0); URINE BILIRUBIN NEGATIVE (NEGATIVE); URINE BLOOD SMALL (NEGATIVE); URINE GLUCOSE (UA) NEGATIVE (NEGATIVE); URINE KETONE NEGATIVE (NEGATIVE); URINE LEUKOCYTE ESTERASE NEGATIVE Leu/uL (NEGATIVE); URINE PROTEIN NEGATIVE mg/dL (<30 mg/dL); URINE UROBILINOGEN 0.2 E.U./dL (<1 E.U./dL)
[2017-10-14 04:17] LABS: URINE APPEARANCE SL CLOUDY (CLEAR); URINE COLOR YELLOW (YELLOW)
[2017-10-14 04:26] LABS: URINE EPITHELIAL CELLS 0 - 2 /hpf (0-5); URINE WBC 0 - 2 /hpf (0-6)
[2017-10-14 04:27] LABS: URINE BACTERIA FEW (NEG)
[2017-10-14] MEDS: Pantoprazole 40 mg EC Tab PO SCH (06:00)
[2017-10-14 06:51] LABS: BASO # 0.02 K/mm3 (0.0-2.0); BASO % 0.4 % (0.0-3.0); EOS # 0.1 (0.0-0.7); EOS % 2.4 % (1.5-5.0); GRAN # 2.61 (1.4-6.5); GRAN % 57.1 % (50.0-68.0); LYMPH % 22.8 % (22.0-35.0); MEAN CELL VOLUME 95.8 fl (80.0-105.0); MEAN CORPUSCULAR HEMOGLOBIN 31.4 pg (25.0-35.0); MEAN CORPUSCULAR HGB CONC 32.8 g/dl (31.0-37.0); MEAN PLATELET VOLUME 9.4 fl (7.0-11.0); MONO # 0.8 (0.1-0.6); MONO % 17.3 % (1.0-6.0); RED CELL DISTRIBUTION WIDTH 18.5 % (11.5-14.5); WHITE BLOOD COUNT 4.6 10^3/ul (4.5-11.0)
[2017-10-14 07:11] LABS: ALKALINE PHOSPHATASE 188 U/L (38-126); ALT/SGPT 47 U/L (7-56); AST/SGOT 42 U/L (17-59); BILIRUBIN,TOTAL 1.8 mg/dL (0.2-1.3); BLOOD UREA NITROGEN 23 mg/dL (7-21); CALCIUM 8.5 mg/dL (8.4-10.5); CARBON DIOXIDE 28 mmol/L (21-33); CHLORIDE 101 mmol/L (98-107); GFR AFRICAN-AMERICAN > 60; GLUCOSE,RANDOM 86 mg/dL (70-110); POTASSIUM 4.4 mmol/L (3.6-5.0); SODIUM 134 mmol/L (132-148); TOTAL PROTEIN 6.4 g/dL (5.8-8.3)
[2017-10-14 07:18] LABS: ALB/GLOB RATIO 0.8 (1.1-1.8)
--- NOTE | 2017-10-14 09:29 | PN ---
DATE: 10/14/2017 LOCATION: The patient seen early this morning in room 375, bed 2. SUBJECTIVE: No fevers and no chills, clinically stable, uneventful night. PHYSICAL EXAMINATION VITAL SIGNS: On exam, temperature is 98, blood pressure is 100/60, respiratory rate 20, heart rate of 64. HEENT: Examination is unremarkable. NECK: Supple. LUNGS: Have decreased breath sounds. HEART: Normal S1, S2. ABDOMEN: [place]man[place] is soft, nontender. LABORATORY DATA: Examination reveals a white count of 4.6, hemoglobin of 8, platelets of 74. Chemistries reveals a BUN of 23, creatinine of 1.3, alk phos is 188. Urinalysis is noted and immunology is noted. Microbiology reveals the blood cultures are no growth. Nares; MRSA is not detected. Urine cultures are no growth and peritoneal cultures are no growth. Review of orders reveals the patient to be on no antibiotics. ASSESSMENT AND PLAN: This is a 62-year-old male with past medical history significant for nonalcoholic steatohepatitis, liver cirrhosis, ascites, with systemic inflammatory response syndrome, upper GI bleed, variceal bleed and has completed 7 days of ceftriaxone, currently off of antibiotics. All cultures negative. The patient is at risk for developing nosocomial infections. Bravo Christensen MD
[2017-10-14] MEDS: Potassium & Sodium Phosphate PO SCH ×2 (09:45→17:46)
--- NOTE | 2017-10-14 15:08 | CP.PCM.PN ---
Subjective - Date & Time of Evaluation Date of Evaluation: 10/14/17 Time of Evaluation: 15:00 - Subjective Subjective: IM progress note for Dr. Brannon Das - TKS DO PGY - Pt s/e bedside. Pt denies any complaints at this time, feels much better from yesterday in terms of being less tired and more energetic. Per nursing staff, pt had some blood in his stool yesterday, FOBT ordered. Paracentesis performed yesterday, will follow up on culture. No complaints at this time. Objective - Vital Signs/Intake and Output Vital Signs (last 24 hours): Temp Pulse Resp BP Pulse Ox 98.3 F 64 20 100/53 L 97 10/14/17 05:53 10/14/17 09:43 10/14/17 05:53 10/14/17 09:45 10/14/17 05:53 Intake and Output: 10/14/17 10/14/17 06:59 18:59 Intake Total 300 Output Total 200 Balance 100 - Medications Medications: Current Medications Aspirin (Ecotrin) 81 mg PO DAILY [facility] Last Admin: 10/14/17 09:46 Dose: 81 mg Furosemide (Lasix) 40 mg PO DAILY [facility] Last Admin: 10/14/17 09:45 Dose: 40 mg Lactulose (Enulose) 20 gm PO BID [facility] Last Admin: 10/14/17 09:48 Dose: Not Given Nadolol (Corgard) 10 mg PO DAILY [facility] Last Admin: 10/14/17 09:43 Dose: 10 mg Ondansetron HCl (Zofran Inj) 4 mg IVP Q4H PRN PRN Reason: Nausea/Vomiting Last Admin: 10/06/17 09:50 Dose: 4 mg Oxycodone HCl (Oxycodone Immediate Release Tab) 5 mg PO HS PRN PRN Reason: Pain, severe (8-10) Last Admin: 10/13/17 20:44 Dose: 5 mg Pantoprazole Sodium (Protonix Ec Tab) 40 mg PO 0600 [facility] Last Admin: 10/14/17 06:00 Dose: 40 mg Potassium Phos/Sodium Phos (Neutra-Phos) 1 pkt PO BID [facility] Last Admin: 10/14/17 09:45 Dose: 1 pkt Rifaximin (Xifaxan) 550 mg PO BID [facility] PRN Reason: Protocol Last Admin: 10/14/17 09:45 Dose: 550 mg Spironolactone (Aldactone) 25 mg PO BID [facility] Last Admin: 10/14/17 09:43 Dose: 25 mg - Labs Labs: 10/14/17 06:10 10/14/17 06:10 PT 15.9 SECONDS (9.4-12.5) H 10/10/17 06:50 INR 1.43 (0.93-1.08) H 10/10/17 06:50 APTT 33.5 Seconds (25.1-36.5) 10/06/17 04:45
--- NOTE | 2017-10-14 15:28 | CP.PCM.PN ---
<NomanRafael - Last Filed: 10/14/17 15:24> Subjective - Date & Time of Evaluation Date of Evaluation: 10/14/17 Time of Evaluation: 15:24 - Subjective Subjective: IM progress note for Dr. Brannon Das - TKS DO PGY - Pt s/e bedside. States that he feels weaker today and that his abdomen hurts. Pt had a non-bloody BM this AM. No n/v/d. Patient has a good appetite. No symptoms of infection. Pending GI review and [employer] authorization. Objective - Vital Signs/Intake and Output Vital Signs (last 24 hours): Temp Pulse Resp BP Pulse Ox 98.3 F 64 20 100/53 L 97 10/14/17 05:53 10/14/17 09:43 10/14/17 05:53 10/14/17 09:45 10/14/17 05:53 Intake and Output: 10/14/17 10/14/17 06:59 18:59 Intake Total 300 Output Total 200 Balance 100 - Medications Medications: Current Medications Aspirin (Ecotrin) 81 mg PO DAILY [facility] Last Admin: 10/14/17 09:46 Dose: 81 mg Furosemide (Lasix) 40 mg PO DAILY [facility] Last Admin: 10/14/17 09:45 Dose: 40 mg Lactulose (Enulose) 20 gm PO BID [facility] Last Admin: 10/14/17 09:48 Dose: Not Given Nadolol (Corgard) 10 mg PO DAILY [facility] Last Admin: 10/14/17 09:43 Dose: 10 mg Ondansetron HCl (Zofran Inj) 4 mg IVP Q4H PRN PRN Reason: Nausea/Vomiting Last Admin: 10/06/17 09:50 Dose: 4 mg Oxycodone HCl (Oxycodone Immediate Release Tab) 5 mg PO HS PRN PRN Reason: Pain, severe (8-10) Last Admin: 10/13/17 20:44 Dose: 5 mg Pantoprazole Sodium (Protonix Ec Tab) 40 mg PO 0600 [facility] Last Admin: 10/14/17 06:00 Dose: 40 mg Potassium Phos/Sodium Phos (Neutra-Phos) 1 pkt PO BID [facility] Last Admin: 10/14/17 09:45 Dose: 1 pkt Rifaximin (Xifaxan) 550 mg PO BID [facility] PRN Reason: Protocol Last Admin: 10/14/17 09:45 Dose: 550 mg Spironolactone (Aldactone) 25 mg PO BID [facility] Last Admin: 10/14/17 09:43 Dose: 25 mg - Labs Labs: 10/14/17 06:10 10/14/17 06:10 PT 15.9 SECONDS (9.4-12.5) H 10/10/17 06:50 INR 1.43 (0.93-1.08) H 10/10/17 06:50 APTT 33.5 Seconds (25.1-36.5) 10/06/17 04:45 - Additional Findings Additional findings: Phys Exam: VS as below Const'l: a&o x 4, nad Head/Neck: neck supple, no jvd, trachea midline, carotid midline, no cervical /head mass Eyes: verito, nonicteric sclera, eom intact ENT: auditory acuity grossly intact, throat not congested, no nasal deformity Cardio: rrr, no m/r/g, no carotid bruit, nml s1, s2 Pulm: no accessory muscle use, equal nml breath sounds bilaterally, ctab Abd: +fluid wave present; mild TTP in diffuse quadrants; s/nd, nbs x 4 q, no palpable masses Derm: no rashes, no ulcers, no lesions Extr: no edema, no cyanosis, no calf tenderness, no lesions, no varicosities Neuro: cn II-XII grossly intact, ue and le 5/5 muscle strength bilaterally, no los ue, le bilaterally and core Assessment and Plan - Assessment and Plan (Free Text) Assessment: A/P 62 M with PMHx of TRUJILLO, afib s/p cardioversion, HTN, GERD, CHF whom presented with hematemesis and was found to have ascites s/p paracentesis and anemia s/p 4 units of prbc transfusions and EGD with 9 gastric banding of varices. S/p paracentesis X 2, preliminary Decompensated liver cirrhosis with ascites with h/o TRUJILLO - MELD score was 24, now 19 - Will continue to trend LFTs. - Patient will need to follow up with [facility] upon discharge. SIRS in the setting of ascites - Afebrile and leukocysotis trended down. - D/c Rocephin - Paracentesis performed yesterday by Dr. Casey Anemia, likely 2/2 GI Bleed - S/p 4 units of prbc transfused - Hematemesis has resolved, but patient had blood in stool yesterday * GI will follow up tomorrow Hepatic encephalopathy with transient AMS - Mental status improved - Continue Rifaximin 550mg po bid History A-fib s/p cardioversion - Currently NSR - Continue to monitor. CAD s/p bare metal stent - Restarted on asa Diastolic CHF- Currently stable, will continue to monitor. Hematemesis 2/2 variceal bleeding due to decompensated cirrhosis - Resolved - Nadolol reduced to 10 mg, as per old dosage - Paracentesis before discharge. * Performed yesterday by Dr. Casey, resident on GI service [facility] due to ATN from hemorrhagic shock - Resolved - Creatinine continues to improve - Nephrology following GI/DVT PPHXS - Protonix - SCDs Dispo: - At this time, patient is stable for discharge to [facility] pending GI's follow up tomorrow. Accepted to [facility], awaiting authorization from his insurance, [employer] <Fay Das - Last Filed: 10/15/17 11:27> Objective - Vital Signs/Intake and Output Vital Signs (last 24 hours): Temp Pulse Resp BP Pulse Ox 97.9 F 52 L 20 91/48 L 100 10/15/17 06:00 10/15/17 06:00 10/15/17 06:00 10/15/17 06:00 10/15/17 06:00 Intake and Output: 10/15/17 10/15/17 06:59 18:59 Intake Total 470 Balance 470 - Medications Medications: Current Medications Aspirin (Ecotrin) 81 mg PO DAILY [facility] Last Admin: 10/15/17 09:25 Dose: 81 mg Furosemide (Lasix) 20 mg PO DAILY [facility] Lactulose (Enulose) 20 gm PO BID [facility] Last Admin: 10/15/17 09:25 Dose: Not Given Nadolol (Corgard) 10 mg PO DAILY [facility] Last Admin: 10/15/17 09:24 Dose: 10 mg Ondansetron HCl (Zofran Inj) 4 mg IVP Q4H PRN PRN Reason: Nausea/Vomiting Last Admin: 10/06/17 09:50 Dose: 4 mg Oxycodone HCl (Oxycodone Immediate Release Tab) 5 mg PO HS PRN PRN Reason: Pain, severe (8-10) Last Admin: 10/14/17 21:24 Dose: 5 mg Pantoprazole Sodium (Protonix Ec Tab) 40 mg PO 0600 [facility] Last Admin: 10/15/17 06:30 Dose: 40 mg Potassium Phos/Sodium Phos (Neutra-Phos) 1 pkt PO BID [facility] Last Admin: 10/15/17 09:28 Dose: 1 pkt Rifaximin (Xifaxan) 550 mg PO BID [facility] PRN Reason: Protocol Last Admin: 10/15/17 09:28 Dose: 550 mg Spironolactone (Aldactone) 25 mg PO BID [facility] Last Admin: 10/14/17 09:43 Dose: 25 mg - Labs Labs: 10/15/17 07:00 10/15/17 07:00 PT 15.9 SECONDS (9.4-12.5) H 10/10/17 06:50 INR 1.43 (0.93-1.08) H 10/10/17 06:50 APTT 33.5 Seconds (25.1-36.5) 10/06/17 04:45 Attending/Attestation - Attestation I have personally seen and examined this patient.: Yes I have fully participated in the care of the patient.: Yes I have reviewed all pertinent clinical information, including history, physical exam and plan: Yes Notes (Text): I have seen and examined the patient at bedside. Agree with the above note with the following additions/ exceptions: Briefly this is 62 year old male with history of cryptogenic cirrhosis, former smoker, former alcohol abuser, HTN, CHF (EF~45-50%), afib recently cardioverted to normal sinus rhythm, CAD s/p bare metal stent on aspirin who was admitted with GI bleed secondary to esophageal varices and portal gastropathy. He is status post EGD and banding x9. Currently feeling well and denies any bleeding. He is able to eat without any problem and has a good appetite. Continue Protonix. Continue nadolol. Repeat Paracentesis was done yesterday followed by albumin infusion. Ascitic fluid culture has been negative. Continue rifaxamin. Patient refuses to take lactulose due to diarrhea. He had BM today. Patient reported that he had blood in the stools. FOBT came back positive. Awaiting GI follow up. Abdominal distention and tenderness was resolved post paracentesis however patient complains of abdominal pain and has noticeable tenderness diffusely today. As cr is elevated today will hold aldactone and continue lasix. PT eval recommended NONA. Awaiting placement. Advised patient to follow up with [facility] Hepatology / transplant clinic. Upon discharge patient will follow up with Dr. Lew. Dr Fay Das
[2017-10-14] MEDS: oxyCODONE 5 mg Immediate Release Tab PO PRN (21:24)
[2017-10-15 05:53] LABS: GLUCOSE PERITONEAL FLUID 103 mg/dL; LDH PERITONEAL FLUID 40 U/L (<63); TOTAL PROTEIN PERITONEAL FLUID <3.0 g/dL
[2017-10-15] MEDS: Pantoprazole 40 mg EC Tab PO SCH (06:30)
[2017-10-15 07:41] LABS: BASO # 0.04 K/mm3 (0.0-2.0); BASO % 0.8 % (0.0-3.0); EOS # 0.2 (0.0-0.7); EOS % 3.1 % (1.5-5.0); GRAN # 2.54 (1.4-6.5); GRAN % 52.8 % (50.0-68.0); HEMATOCRIT 26.1 % (42.0-52.0); LYMPH # 1.3 (1.2-3.4); LYMPH % 26.3 % (22.0-35.0); MEAN CORPUSCULAR HEMOGLOBIN 31.6 pg (25.0-35.0); MEAN CORPUSCULAR HGB CONC 32.6 g/dl (31.0-37.0); MONO # 0.8 (0.1-0.6); RED CELL DISTRIBUTION WIDTH 18.6 % (11.5-14.5); WHITE BLOOD COUNT 4.8 10^3/ul (4.5-11.0)
[2017-10-15 08:31] LABS: ALB/GLOB RATIO 0.8 (1.1-1.8); ALKALINE PHOSPHATASE 216 U/L (38-126); ALT/SGPT 43 U/L (7-56); AST/SGOT 57 U/L (17-59); BILIRUBIN,TOTAL 1.8 mg/dL (0.2-1.3); BLOOD UREA NITROGEN 24 mg/dL (7-21); CALCIUM 8.8 mg/dL (8.4-10.5); CARBON DIOXIDE 30 mmol/L (21-33); CHLORIDE 97 mmol/L (98-107); GFR AFRICAN-AMERICAN > 60; GLUCOSE,RANDOM 81 mg/dL (70-110); POTASSIUM 4.4 mmol/L (3.6-5.0); SODIUM 133 mmol/L (132-148); TOTAL PROTEIN 6.8 g/dL (5.8-8.3)
--- NOTE | 2017-10-15 08:36 | CP.PCM.PN ---
Subjective - Date & Time of Evaluation Date of Evaluation: 10/15/17 Time of Evaluation: 08:29 - Subjective Subjective: Patient seen and examined, resting in bed comfortably. No acute events overnight. He complains of generalized weakness and abdominal pain in RLQ at paracentesis site. He otherwise denies nausea, vomiting, fever/chills. He had a normal bowel movement yesterday without presence of blood in stool. Tolerating PO diet, though appetite decreased. 12 point review of systems performed, negative aside from mentioned above. Objective - Vital Signs/Intake and Output Vital Signs (last 24 hours): Temp Pulse Resp BP Pulse Ox 97.9 F 52 L 19 91/48 L 100 10/15/17 06:00 10/15/17 06:00 10/15/17 06:00 10/15/17 06:00 10/15/17 06:00 Intake and Output: 10/15/17 10/15/17 06:59 18:59 Intake Total 470 Balance 470 - Medications Medications: Current Medications Aspirin (Ecotrin) 81 mg PO DAILY [facility] Last Admin: 10/14/17 09:46 Dose: 81 mg Furosemide (Lasix) 40 mg PO DAILY [facility] Last Admin: 10/14/17 09:45 Dose: 40 mg Lactulose (Enulose) 20 gm PO BID [facility] Last Admin: 10/14/17 17:41 Dose: Not Given Nadolol (Corgard) 10 mg PO DAILY [facility] Last Admin: 10/14/17 09:43 Dose: 10 mg Ondansetron HCl (Zofran Inj) 4 mg IVP Q4H PRN PRN Reason: Nausea/Vomiting Last Admin: 10/06/17 09:50 Dose: 4 mg Oxycodone HCl (Oxycodone Immediate Release Tab) 5 mg PO HS PRN PRN Reason: Pain, severe (8-10) Last Admin: 10/14/17 21:24 Dose: 5 mg Pantoprazole Sodium (Protonix Ec Tab) 40 mg PO 0600 [facility] Last Admin: 10/15/17 06:30 Dose: 40 mg Potassium Phos/Sodium Phos (Neutra-Phos) 1 pkt PO BID [facility] Last Admin: 10/14/17 17:46 Dose: 1 pkt Rifaximin (Xifaxan) 550 mg PO BID [facility] PRN Reason: Protocol Last Admin: 10/14/17 17:46 Dose: 550 mg Spironolactone (Aldactone) 25 mg PO BID [facility] Last Admin: 10/14/17 09:43 Dose: 25 mg - Labs Labs: 10/15/17 07:00 10/14/17 06:10 PT 15.9 SECONDS (9.4-12.5) H 10/10/17 06:50 INR 1.43 (0.93-1.08) H 10/10/17 06:50 APTT 33.5 Seconds (25.1-36.5) 10/06/17 04:45 - Constitutional Appears: Non-toxic, No Acute Distress - Head Exam Head Exam: NORMAL INSPECTION - Eye Exam Eye Exam: EOMI, Normal appearance - ENT Exam ENT Exam: Mucous Membranes Moist - Respiratory Exam Respiratory Exam: Clear to Ausculation Bilateral - Cardiovascular Exam Cardiovascular Exam: REGULAR RHYTHM, +S1, +S2 - GI/Abdominal Exam GI & Abdominal Exam: Soft, Tenderness, Normal Bowel Sounds Additional comments: tenderness to palpation in RLQ, no rebound/guarding - Extremities Exam Extremities Exam: Normal Inspection - Skin Skin Exam: Dry, Intact, Normal Color, Warm Assessment and Plan - Assessment and Plan (Free Text) Assessment: Decompensated cirrhosis of unclear etiology Hematemesis, esophageal varices s/p band ligation Ascites s/p paracentesis Anemia CAD s/p stent Plan: - Low sodium diet as tolerated - H/H stable, continue to monitor - Continue with PPI therapy - Continue with b-ameya prophylaxis therapy, monitor heart rate - Continue with lactulose and xifaxan therapy for HE prevention - Patient will need outpatient follow up EGD for variceal surveillance and colonoscopy for screening. He will also require further evaluation for etiology of cirrhosis. Patient planned for hospital discharge to rehab facility today, no further planned GI intervention will sign off case. Please reconsult as necessary, thank you.
[2017-10-15] MEDS: Potassium & Sodium Phosphate PO SCH ×2 (09:28→18:09)
--- NOTE | 2017-10-15 10:53 | CP.PCM.PN ---
<Ge Pratt - Last Filed: 10/15/17 10:47> Subjective - Date & Time of Evaluation Date of Evaluation: 10/15/17 Time of Evaluation: 10:47 - Subjective Subjective: Pt seen and examined at bedside. No acute events overnight. Pt admits to abdominal pain. Pt had a bowel movement yesterday. Denies CP, SOB, N/V/D, fever , chills. Objective - Vital Signs/Intake and Output Vital Signs (last 24 hours): Temp Pulse Resp BP Pulse Ox 97.9 F 52 L 20 91/48 L 100 10/15/17 06:00 10/15/17 06:00 10/15/17 06:00 10/15/17 06:00 10/15/17 06:00 Intake and Output: 10/15/17 10/15/17 06:59 18:59 Intake Total 470 Balance 470 - Medications Medications: Current Medications Aspirin (Ecotrin) 81 mg PO DAILY [facility] Last Admin: 10/15/17 09:25 Dose: 81 mg Furosemide (Lasix) 20 mg PO DAILY [facility] Lactulose (Enulose) 20 gm PO BID [facility] Last Admin: 10/15/17 09:25 Dose: Not Given Nadolol (Corgard) 10 mg PO DAILY [facility] Last Admin: 10/15/17 09:24 Dose: 10 mg Ondansetron HCl (Zofran Inj) 4 mg IVP Q4H PRN PRN Reason: Nausea/Vomiting Last Admin: 10/06/17 09:50 Dose: 4 mg Oxycodone HCl (Oxycodone Immediate Release Tab) 5 mg PO HS PRN PRN Reason: Pain, severe (8-10) Last Admin: 10/14/17 21:24 Dose: 5 mg Pantoprazole Sodium (Protonix Ec Tab) 40 mg PO 0600 [facility] Last Admin: 10/15/17 06:30 Dose: 40 mg Potassium Phos/Sodium Phos (Neutra-Phos) 1 pkt PO BID [facility] Last Admin: 10/15/17 09:28 Dose: 1 pkt Rifaximin (Xifaxan) 550 mg PO BID [facility] PRN Reason: Protocol Last Admin: 10/15/17 09:28 Dose: 550 mg Spironolactone (Aldactone) 25 mg PO BID [facility] Last Admin: 10/14/17 09:43 Dose: 25 mg - Labs Labs: 10/15/17 07:00 10/15/17 07:00 PT 15.9 SECONDS (9.4-12.5) H 10/10/17 06:50 INR 1.43 (0.93-1.08) H 10/10/17 06:50 APTT 33.5 Seconds (25.1-36.5) 10/06/17 04:45 - Constitutional Appears: Non-toxic, No Acute Distress - Head Exam Head Exam: ATRAUMATIC, NORMAL INSPECTION, NORMOCEPHALIC - ENT Exam ENT Exam: Mucous Membranes Moist, Normal Exam - Respiratory Exam Respiratory Exam: Clear to Ausculation Bilateral, NORMAL BREATHING PATTERN. absent: Rhonchi, Wheezes - Cardiovascular Exam Cardiovascular Exam: RRR, +S1, +S2 - GI/Abdominal Exam GI & Abdominal Exam: Soft, Tenderness (Periumbillical ), Normal Bowel Sounds - Extremities Exam Extremities Exam: absent: Calf Tenderness, Pedal Edema - Neurological Exam Neurological Exam: Alert, Awake, Oriented x3 - Psychiatric Exam Psychiatric exam: Normal Affect, Normal Mood - Skin Skin Exam: Intact, Normal Color, Warm Assessment and Plan - Assessment and Plan (Free Text) Plan: 62 M with PMHx of TRUJILLO, afib s/p cardioversion, HTN, GERD, CHF presents with ascites s/p antibiotic treatment. Pt complaining of abdominal pain, will obtain abdominal US at this time. Pt also with moderately low BP, which is at baseline. Will hold Aldactone and Lasix today. Lasix will be changed to 20 mg beginning tomorrow. GI recommends continuation of current medical regimen and outpatient EGD and colonoscopy. 1. Decompensated liver cirrhosis with ascites with h/o TRUJILLO Abdominal US today LFTs stable S/p paracentesis and abx treatment Continue Nadolol and Rifaximin Follow up with [facility] upon discharge 2. Normocytic Anemia, likely 2/2 GI Bleed S/p 4 units of prbc transfused Hg stable Colonoscopy outpatient as per GI 3. CAD s/p bare metal stent Continue ASA 4. CHF Will hold lasix today Resume tomorrow at 20 mg daily 5. [facility] Creatinine trending upward but stable Aldactone and Lasix held Will recheck tomorrow 6. PPX Protonix [facility] Terence, PGY-2 <Fay Das B - Last Filed: 10/15/17 16:30> Objective - Vital Signs/Intake and Output Vital Signs (last 24 hours): Temp Pulse Resp BP Pulse Ox 98.4 F 52 L 18 84/43 L 100 10/15/17 12:00 10/15/17 12:00 10/15/17 12:00 10/15/17 12:00 10/15/17 06:00 Intake and Output: 10/15/17 10/15/17 06:59 18:59 Intake Total 470 540 Output Total 600 Balance 470 -60 - Medications Medications: Current Medications Aspirin (Ecotrin) 81 mg PO DAILY [facility] Last Admin: 10/15/17 09:25 Dose: 81 mg Furosemide (Lasix) 20 mg PO DAILY [facility] Lactulose (Enulose) 20 gm PO BID [facility] Last Admin: 10/15/17 09:25 Dose: Not Given Nadolol (Corgard) 10 mg PO DAILY [facility] Last Admin: 10/15/17 09:24 Dose: 10 mg Ondansetron HCl (Zofran Inj) 4 mg IVP Q4H PRN PRN Reason: Nausea/Vomiting Last Admin: 10/06/17 09:50 Dose: 4 mg Oxycodone HCl (Oxycodone Immediate Release Tab) 5 mg PO HS PRN PRN Reason: Pain, severe (8-10) Last Admin: 10/14/17 21:24 Dose: 5 mg Pantoprazole Sodium (Protonix Ec Tab) 40 mg PO 0600 [facility] Last Admin: 10/15/17 06:30 Dose: 40 mg Potassium Phos/Sodium Phos (Neutra-Phos) 1 pkt PO BID [facility] Last Admin: 10/15/17 09:28 Dose: 1 pkt Rifaximin (Xifaxan) 550 mg PO BID [facility] PRN Reason: Protocol Last Admin: 10/15/17 09:28 Dose: 550 mg Spironolactone (Aldactone) 25 mg PO BID [facility] Last Admin: 10/14/17 09:43 Dose: 25 mg - Labs Labs: 10/15/17 07:00 10/15/17 07:00 PT 15.9 SECONDS (9.4-12.5) H 10/10/17 06:50 INR 1.43 (0.93-1.08) H 10/10/17 06:50 APTT 33.5 Seconds (25.1-36.5) 10/06/17 04:45 Attending/Attestation - Attestation I have personally seen and examined this patient.: Yes I have fully participated in the care of the patient.: Yes I have reviewed all pertinent clinical information, including history, physical exam and plan: Yes Notes (Text): I have seen and examined the patient at bedside. Agree with the above note with the following additions/ exceptions: Briefly this is 62 year old male with history of cryptogenic cirrhosis, former smoker, former alcohol abuser, HTN, CHF (EF~45-50%), afib recently cardioverted to normal sinus rhythm, CAD s/p bare metal stent on aspirin who was admitted with GI bleed secondary to esophageal varices and portal gastropathy. He is status post EGD and banding x9. Currently feeling well and denies any bleeding. He is able to eat without any problem and has a good appetite. Continue Protonix. Continue nadolol. Repeat Paracentesis was done followed by albumin infusion. Ascitic fluid culture has been negative. Continue rifaxamin. Patient refuses to take lactulose due to diarrhea. He had BM today. Patient reported that he had blood in the stools 2days ago. FOBT came back positive. Discussed with GI . Plan for outpateint endoscopy and colonoscopy. He also has been complaining of diffuse abdominal pain. Abdomen US pending. As cr is elevated today will lower the dose of lasix. PT eval recommended NONA. Awaiting placement. Advised patient to follow up with [facility] Hepatology / transplant clinic. Upon discharge patient will follow up with Dr. Lew. Dr Fay Das
[2017-10-15] MEDS: oxyCODONE 5 mg Immediate Release Tab PO PRN (20:32)
[2017-10-16] MEDS: Pantoprazole 40 mg EC Tab PO SCH (05:18)
[2017-10-16 07:09] LABS: BASO # 0.04 K/mm3 (0.0-2.0); BASO % 0.8 % (0.0-3.0); EOS # 0.2 (0.0-0.7); EOS % 3.1 % (1.5-5.0); GRAN # 2.74 (1.4-6.5); GRAN % 56.3 % (50.0-68.0); HEMATOCRIT 24.5 % (42.0-52.0); LYMPH # 1.2 (1.2-3.4); LYMPH % 23.6 % (22.0-35.0); MEAN CELL VOLUME 96.8 fl (80.0-105.0); MEAN CORPUSCULAR HEMOGLOBIN 32.4 pg (25.0-35.0); MEAN CORPUSCULAR HGB CONC 33.5 g/dl (31.0-37.0); MEAN PLATELET VOLUME 10.2 fl (7.0-11.0); MONO # 0.8 (0.1-0.6); MONO % 16.2 % (1.0-6.0); RED CELL DISTRIBUTION WIDTH 18.4 % (11.5-14.5); WHITE BLOOD COUNT 4.9 10^3/ul (4.5-11.0)
[2017-10-16 07:34] LABS: ALB/GLOB RATIO 0.8 (1.1-1.8); ALKALINE PHOSPHATASE 228 U/L (38-126); ALT/SGPT 40 U/L (7-56); AST/SGOT 54 U/L (17-59); BILIRUBIN,TOTAL 1.4 mg/dL (0.2-1.3); BLOOD UREA NITROGEN 24 mg/dL (7-21); CALCIUM 8.5 mg/dL (8.4-10.5); CARBON DIOXIDE 27 mmol/L (21-33); CHLORIDE 99 mmol/L (98-107); GFR AFRICAN-AMERICAN > 60; GLUCOSE,RANDOM 85 mg/dL (70-110); SODIUM 132 mmol/L (132-148); TOTAL PROTEIN 6.4 g/dL (5.8-8.3)
[2017-10-16] MEDS: Potassium & Sodium Phosphate PO SCH ×2 (09:45→17:46)
--- NOTE | 2017-10-16 11:29 | CP.PCM.PN ---
<Ge Pratt - Last Filed: 10/16/17 11:25> Subjective - Date & Time of Evaluation Date of Evaluation: 10/16/17 Time of Evaluation: 11:25 - Subjective Subjective: Pt seen and examined at bedside. Pt doing well with no acute events overnight. Pt had abdominal US today. Pt admits to mild abdominal pain. Denies CP, SOB, N/V /D, fever, chills. Objective - Vital Signs/Intake and Output Vital Signs (last 24 hours): Temp Pulse Resp BP Pulse Ox 98.8 F 52 L 20 92/52 L 98 10/16/17 06:00 10/16/17 10:37 10/16/17 06:00 10/16/17 10:38 10/16/17 06:00 Intake and Output: 10/16/17 10/16/17 06:59 18:59 Intake Total 420 Output Total 1200 Balance -780 - Medications Medications: Current Medications Aspirin (Ecotrin) 81 mg PO DAILY [facility] Last Admin: 10/16/17 09:46 Dose: 81 mg Furosemide (Lasix) 20 mg PO DAILY [facility] Last Admin: 10/16/17 10:38 Dose: Not Given Lactulose (Enulose) 20 gm PO BID [facility] Last Admin: 10/16/17 10:38 Dose: Not Given Nadolol (Corgard) 10 mg PO DAILY [facility] Last Admin: 10/16/17 10:37 Dose: Not Given Ondansetron HCl (Zofran Inj) 4 mg IVP Q4H PRN PRN Reason: Nausea/Vomiting Last Admin: 10/06/17 09:50 Dose: 4 mg Oxycodone HCl (Oxycodone Immediate Release Tab) 5 mg PO HS PRN PRN Reason: Pain, severe (8-10) Last Admin: 10/15/17 20:32 Dose: 5 mg Pantoprazole Sodium (Protonix Ec Tab) 40 mg PO 0600 [facility] Last Admin: 10/16/17 05:18 Dose: 40 mg Potassium Phos/Sodium Phos (Neutra-Phos) 1 pkt PO BID [facility] Last Admin: 10/16/17 09:45 Dose: 1 pkt Rifaximin (Xifaxan) 550 mg PO BID [facility] PRN Reason: Protocol Last Admin: 10/16/17 09:45 Dose: 550 mg Spironolactone (Aldactone) 25 mg PO BID [facility] Last Admin: 10/14/17 09:43 Dose: 25 mg - Labs Labs: 10/16/17 06:30 10/16/17 06:30 PT 15.9 SECONDS (9.4-12.5) H 10/10/17 06:50 INR 1.43 (0.93-1.08) H 10/10/17 06:50 APTT 33.5 Seconds (25.1-36.5) 10/06/17 04:45 - Constitutional Appears: Non-toxic, No Acute Distress - Head Exam Head Exam: ATRAUMATIC, NORMAL INSPECTION, NORMOCEPHALIC - ENT Exam ENT Exam: Mucous Membranes Moist - Respiratory Exam Respiratory Exam: Clear to Ausculation Bilateral, NORMAL BREATHING PATTERN - Cardiovascular Exam Cardiovascular Exam: RRR, +S1, +S2 - GI/Abdominal Exam GI & Abdominal Exam: Soft, Tenderness, Normal Bowel Sounds. absent: Distended, Guarding, Rebound Additional comments: Tenderness in periumbilical region - Extremities Exam Extremities Exam: absent: Calf Tenderness, Pedal Edema - Neurological Exam Neurological Exam: Alert, Awake, Oriented x3 - Psychiatric Exam Psychiatric exam: Normal Affect, Normal Mood - Skin Skin Exam: Intact, Normal Color, Warm Assessment and Plan - Assessment and Plan (Free Text) Plan: 62 M with PMH of TRUJILLO, afib s/p cardioversion, HTN, GERD, CHF presents with ascites s/p antibiotic treatment. Pt complaining of abdominal pain still, awaiting abdominal US read. Will resume aldactone and change Lasix to 20 mg daily. GI recommends continuation of current medical regimen and outpatient EGD and colonoscopy. Pt approved for transfer to [facility], awaiting insurance authorization. 1. Decompensated liver cirrhosis with ascites with h/o TRUJILLO Abdominal US this morning LFTs stable S/p paracentesis and abx treatment Continue Nadolol and Rifaximin Follow up with [facility] upon discharge 2. Normocytic Anemia Hg stable S/p 4 units of prbc transfused EGD for band surveillance and Colonoscopy outpatient as per GI 3. CAD s/p bare metal stent Continue ASA 4. CHF Continue lasix 20 mg today Resume Aldactone 5. KEYUR Creatinine stable, 1.3 Aldactone and Lasix resumed Will recheck tomorrow 6. PPX Protonix SCDs Terence, PGY-2 <Fay Das B - Last Filed: 10/16/17 14:50> Objective - Vital Signs/Intake and Output Vital Signs (last 24 hours): Temp Pulse Resp BP Pulse Ox 98.2 F 58 L 16 96/47 L 98 10/16/17 12:00 10/16/17 14:00 10/16/17 12:00 10/16/17 12:00 10/16/17 06:00 Intake and Output: 10/16/17 10/16/17 06:59 18:59 Intake Total 420 300 Output Total 1200 600 Balance -780 -300 - Medications Medications: Current Medications Aspirin (Ecotrin) 81 mg PO DAILY [facility] Last Admin: 10/16/17 09:46 Dose: 81 mg Furosemide (Lasix) 20 mg PO DAILY [facility] Last Admin: 10/16/17 10:38 Dose: Not Given Lactulose (Enulose) 20 gm PO BID [facility] Last Admin: 10/16/17 10:38 Dose: Not Given Nadolol (Corgard) 10 mg PO DAILY [facility] Last Admin: 10/16/17 10:37 Dose: Not Given Ondansetron HCl (Zofran Inj) 4 mg IVP Q4H PRN PRN Reason: Nausea/Vomiting Last Admin: 10/06/17 09:50 Dose: 4 mg Oxycodone HCl (Oxycodone Immediate Release Tab) 5 mg PO HS PRN PRN Reason: Pain, severe (8-10) Last Admin: 10/15/17 20:32 Dose: 5 mg Pantoprazole Sodium (Protonix Ec Tab) 40 mg PO 0600 [facility] Last Admin: 10/16/17 05:18 Dose: 40 mg Potassium Phos/Sodium Phos (Neutra-Phos) 1 pkt PO BID [facility] Last Admin: 10/16/17 09:45 Dose: 1 pkt Rifaximin (Xifaxan) 550 mg PO BID [facility] PRN Reason: Protocol Last Admin: 10/16/17 09:45 Dose: 550 mg Spironolactone (Aldactone) 25 mg PO BID [facility] Last Admin: 10/14/17 09:43 Dose: 25 mg - Labs Labs: 10/16/17 06:30 10/16/17 06:30 PT 15.9 SECONDS (9.4-12.5) H 10/10/17 06:50 INR 1.43 (0.93-1.08) H 10/10/17 06:50 APTT 33.5 Seconds (25.1-36.5) 10/06/17 04:45 Attending/Attestation - Attestation I have personally seen and examined this patient.: Yes I have fully participated in the care of the patient.: Yes I have reviewed all pertinent clinical information, including history, physical exam and plan: Yes Notes (Text): I have seen and examined the patient at bedside. Agree with the above note with the following additions/ exceptions: Briefly this is 62 year old male with history of cryptogenic cirrhosis, former smoker, former alcohol abuser, HTN, CHF (EF~45-50%), afib recently cardioverted to normal sinus rhythm, CAD s/p bare metal stent on aspirin who was admitted with GI bleed secondary to esophageal varices and portal gastropathy. He is status post EGD and banding x9. Currently feeling well and denies any bleeding. He is able to eat without any problem and has a good appetite. Continue Protonix. Continue nadolol. Repeat Paracentesis was done followed by albumin infusion. Ascitic fluid culture has been negative. Continue rifaxamin. Patient refuses to take lactulose due to diarrhea. He had BM today. Patient reported that he had blood in the stools. FOBT came back positive. Complains of abdominal pain and tenderness which is slightly better today. US result pending. GI follow up appreciated and they recommended outpatient endoscopy and colonoscopy. Creatinine is stable. Will restart low dose lasix and continue aldactone. Patient feels slightly more energetic today. PT eval recommended NONA. Awaiting placement. Advised patient to follow up with [facility] Hepatology / transplant clinic. Upon discharge patient will follow up with Dr. Lew. Dr Fay Das
--- NOTE | 2017-10-16 12:45 | US ---
HISTORY: abominal pain COMPARISON: None. TECHNIQUE: Sonographic evaluation of the abdomen. FINDINGS: LIVER: Measures 13.6 x 6.72 cm. Increased echogenicity of the liver parenchyma. The liver has an irregular contour consistent with cirrhosis. There is also atrophy. GALLBLADDER: Unremarkable. No gallstones. COMMON BILE DUCT: Measures 3 mm. No stones. No dilatation. PANCREAS: Unremarkable as visualized. No mass. No ductal dilatation. RIGHT KIDNEY: Measures 9.81 x 4.01 x 5.76cm. Normal echogenicity. No calculus, mass, or hydronephrosis. LEFT KIDNEY: Measures 10.28 x 5.07 x 5.40cm. There is a 4 x 6 x 7 mm stone in the left kidney SPLEEN: Normal in size and contour. No mass. 12.8 x 6.5 cm AORTA: No aneurysmal dilatation. IVC: Unremarkable. OTHER FINDINGS: Ascites IMPRESSION: Cirrhosis with ascites.
--- NOTE | 2017-10-16 14:00 | PN ---
DATE: 10/16/2017 SUBJECTIVE: The patient is in bed in no acute distress, nontoxic. PHYSICAL EXAMINATION: VITAL SIGNS: Temperature is 98.0, blood pressure is 90/40, respiratory rate 20, and heart rate of 62. HEENT: Unremarkable. NECK: Supple. LUNGS: Decreased breath sounds. HEART: Normal S1 and S2. ABDOMEN: Soft and nontender. LABORATORY DATA: Examination reveals a white count of 4.9, hemoglobin of 8, and platelets are noted. Chemistries reveal a BUN of 24 and creatinine of 1.3. Urinalysis is noted. Microbiology is noted. The patient had an ultrasound of the abdomen and is pending. ASSESSMENT AND PLAN: He is a 62-year-old male with past medical history significant for nonalcoholic steatohepatitis (TRUJILLO), liver cirrhosis, ascites with systemic inflammatory response syndrome, upper gastrointestinal bleed, variceal bleed and has completed ceftriaxone 7 days, currently off of antibiotics, and afebrile. The patient is at risk for developing nosocomial infections. He has had an ultrasound abdomen, the results are pending. Dr. Garcia, the [employer]'s note is reviewed and Dr. Das's note is reviewed. We will follow closely with you. Bravo Christensen MD
[2017-10-16] MEDS ORDERED: oxyCODONE 5 mg Immediate Release Tab PO STA (20:47)
[2017-10-17] MEDS: Pantoprazole 40 mg EC Tab PO SCH (05:34)
[2017-10-17 06:47] LABS: BASO # 0.06 K/mm3 (0.0-2.0); BASO % 1.1 % (0.0-3.0); EOS # 0.3 (0.0-0.7); GRAN # 2.91 (1.4-6.5); GRAN % 55.7 % (50.0-68.0); HEMATOCRIT 27.2 % (42.0-52.0); LYMPH # 1.3 (1.2-3.4); LYMPH % 23.9 % (22.0-35.0); MEAN CELL VOLUME 97.5 fl (80.0-105.0); MEAN CORPUSCULAR HEMOGLOBIN 31.9 pg (25.0-35.0); MEAN CORPUSCULAR HGB CONC 32.7 g/dl (31.0-37.0); MEAN PLATELET VOLUME 10.2 fl (7.0-11.0); MONO # 0.8 (0.1-0.6); MONO % 14.3 % (1.0-6.0); RED CELL DISTRIBUTION WIDTH 18.4 % (11.5-14.5); WHITE BLOOD COUNT 5.2 10^3/ul (4.5-11.0)
[2017-10-17 07:13] LABS: ALB/GLOB RATIO 0.8 (1.1-1.8); ALKALINE PHOSPHATASE 289 U/L (38-126); ALT/SGPT 50 U/L (7-56); AST/SGOT 68 U/L (17-59); BILIRUBIN,TOTAL 1.4 mg/dL (0.2-1.3); BLOOD UREA NITROGEN 24 mg/dL (7-21); CALCIUM 8.7 mg/dL (8.4-10.5); CARBON DIOXIDE 26 mmol/L (21-33); CHLORIDE 101 mmol/L (98-107); GFR AFRICAN-AMERICAN > 60; GLUCOSE,RANDOM 83 mg/dL (70-110); POTASSIUM 4.1 mmol/L (3.6-5.0); SODIUM 135 mmol/L (132-148)
--- NOTE | 2017-10-17 09:31 | PN ---
DATE: 10/15/2017 SUBJECTIVE: The patient is in bed in no acute distress. PHYSICAL EXAMINATION VITAL SIGNS: Temperature is 97, blood pressure is 91/40, respiratory rate and heart rate of 50. HEENT: Unremarkable. NECK: Supple. LUNGS: Decreased breath sounds. HEART: Normal S1, S2. ABDOMEN: Soft and nontender. No organomegaly, no rebound, no guarding, no masses. LABORATORY DATA: Reveals the patient to have a white count of 4.0. Chemistries are noted. Review of orders reveals the patient to be off of antibiotics. ASSESSMENT AND PLAN: A 62-year-old male with past medical history significant for nonalcoholic steatohepatitis, liver cirrhosis, ascites, systemic inflammatory response syndrome, upper GI bleed, variceal bleed and completed 7 days of ceftriaxone, currently off of antibiotics. The patient is at risk for developing nosocomial infections. Bravo Christensen MD cc:
[2017-10-17] MEDS: Potassium & Sodium Phosphate PO SCH ×2 (11:23→18:13)
--- NOTE | 2017-10-17 13:43 | CP.PCM.PN ---
Subjective - Date & Time of Evaluation Date of Evaluation: 10/17/17 Time of Evaluation: 11:20 - Subjective Subjective: Comfortable, no fevers, not in distress. Objective - Vital Signs/Intake and Output Vital Signs (last 24 hours): Temp Pulse Resp BP Pulse Ox 98.7 F 61 20 90/51 L 98 10/17/17 06:00 10/17/17 06:00 10/17/17 06:00 10/17/17 06:00 10/17/17 06:00 Intake and Output: 10/17/17 10/17/17 06:59 18:59 Intake Total 860 Balance 860 - Medications Medications: Current Medications Aspirin (Ecotrin) 81 mg PO DAILY [facility] Last Admin: 10/16/17 09:46 Dose: 81 mg Furosemide (Lasix) 20 mg PO DAILY [facility] Last Admin: 10/16/17 10:38 Dose: Not Given Lactulose (Enulose) 20 gm PO BID [facility] Last Admin: 10/16/17 17:42 Dose: Not Given Nadolol (Corgard) 10 mg PO DAILY [facility] Last Admin: 10/16/17 10:37 Dose: Not Given Ondansetron HCl (Zofran Inj) 4 mg IVP Q4H PRN PRN Reason: Nausea/Vomiting Last Admin: 10/06/17 09:50 Dose: 4 mg Pantoprazole Sodium (Protonix Ec Tab) 40 mg PO 0600 [facility] Last Admin: 10/17/17 05:34 Dose: 40 mg Potassium Phos/Sodium Phos (Neutra-Phos) 1 pkt PO BID [facility] Last Admin: 10/16/17 17:46 Dose: 1 pkt Rifaximin (Xifaxan) 550 mg PO BID [facility] PRN Reason: Protocol Last Admin: 10/16/17 17:46 Dose: 550 mg Spironolactone (Aldactone) 25 mg PO BID [facility] Last Admin: 10/16/17 17:46 Dose: 25 mg - Labs Labs: 10/17/17 06:15 10/17/17 06:15 PT 15.9 SECONDS (9.4-12.5) H 10/10/17 06:50 INR 1.43 (0.93-1.08) H 10/10/17 06:50 APTT 33.5 Seconds (25.1-36.5) 10/06/17 04:45 - Constitutional Appears: Non-toxic, Cachectic, Chronically Ill - Head Exam Head Exam: NORMAL INSPECTION - Respiratory Exam Respiratory Exam: Decreased Breath Sounds - Cardiovascular Exam Cardiovascular Exam: +S1, +S2 - GI/Abdominal Exam GI & Abdominal Exam: Distended, Soft. absent: Firm, Rigid, Tenderness Assessment and Plan - Assessment and Plan (Free Text) Plan: Assessment systemic inflammatory response syndrome, consider due to upper GI bleeding, consider variceal bleeding, unlikely spontaneous bacterial peritonitis since the 10/04 ascitic fluid cx are negative history of probable spontaneous bacterial peritonitis non-alcoholic steatohepatitis with liver cirrhosis and ascites Atrial fibrillation chronic renal failure Plan will continue to monitor clinically off antibiotics since he is at risk for nosocomial infections overall prognosis is poor
--- NOTE | 2017-10-17 15:17 | CP.PCM.PN ---
<NomanRafael - Last Filed: 10/17/17 15:09> Subjective - Date & Time of Evaluation Date of Evaluation: 10/17/17 Time of Evaluation: 15:09 - Subjective Subjective: IM progress note for Dr. Brannon Das - [facility] DO PGY - Pt s/e bedside. States that he feels weaker today and that his abdomen hurts. No n/v/d. Patient has a good appetite. No symptoms of infection. Pending [facility] authorization for discharge to rehab. GI has signed off the case. Objective - Vital Signs/Intake and Output Vital Signs (last 24 hours): Temp Pulse Resp BP Pulse Ox 98 F 57 L 20 91/56 L 98 10/17/17 13:38 10/17/17 13:38 10/17/17 13:38 10/17/17 13:38 10/17/17 06:00 Intake and Output: 10/17/17 10/17/17 06:59 18:59 Intake Total 860 Balance 860 - Medications Medications: Current Medications Aspirin (Ecotrin) 81 mg PO DAILY [facility] Last Admin: 10/17/17 11:22 Dose: 81 mg Furosemide (Lasix) 20 mg PO DAILY [facility] Last Admin: 10/17/17 11:23 Dose: Not Given Lactulose (Enulose) 20 gm PO BID [facility] Last Admin: 10/17/17 11:25 Dose: Not Given Nadolol (Corgard) 10 mg PO DAILY [facility] Last Admin: 10/17/17 11:21 Dose: Not Given Ondansetron HCl (Zofran Inj) 4 mg IVP Q4H PRN PRN Reason: Nausea/Vomiting Last Admin: 10/06/17 09:50 Dose: 4 mg Pantoprazole Sodium (Protonix Ec Tab) 40 mg PO 0600 [facility] Last Admin: 10/17/17 05:34 Dose: 40 mg Potassium Phos/Sodium Phos (Neutra-Phos) 1 pkt PO BID [facility] Last Admin: 10/17/17 11:23 Dose: 1 pkt Rifaximin (Xifaxan) 550 mg PO BID [facility] PRN Reason: Protocol Last Admin: 10/17/17 11:23 Dose: 550 mg Spironolactone (Aldactone) 25 mg PO BID [facility] Last Admin: 10/17/17 11:21 Dose: Not Given - Labs Labs: 10/17/17 06:15 10/17/17 06:15 PT 15.9 SECONDS (9.4-12.5) H 10/10/17 06:50 INR 1.43 (0.93-1.08) H 10/10/17 06:50 APTT 33.5 Seconds (25.1-36.5) 10/06/17 04:45 - Additional Findings Additional findings: Phys Exam: VS as below Const'l: a&o x 4, nad Head/Neck: neck supple, no jvd, trachea midline, carotid midline, no cervical /head mass Eyes: verito, nonicteric sclera, eom intact ENT: auditory acuity grossly intact, throat not congested, no nasal deformity Cardio: rrr, no m/r/g, no carotid bruit, nml s1, s2 Pulm: no accessory muscle use, equal nml breath sounds bilaterally, ctab Abd: +mild TTP in diffuse quadrants; s/nd, nbs x 4 q, no palpable masses Derm: no rashes, no ulcers, no lesions Extr: no edema, no cyanosis, no calf tenderness, no lesions, no varicosities Neuro: cn II-XII grossly intact, ue and le 5/5 muscle strength bilaterally, no los ue, le bilaterally and core Assessment and Plan - Assessment and Plan (Free Text) Assessment: A/P 62 M with PMHx of TRUJILLO, afib s/p cardioversion, HTN, GERD, CHF whom presented with hematemesis and was found to have ascites s/p paracentesis and anemia s/p 4 units of prbc transfusions and EGD with 9 gastric banding of varices. S/p paracentesis X 2, preliminary Decompensated liver cirrhosis with ascites with h/o TRUJILLO - MELD score was 24, now 19 - Will continue to trend LFTs - Patient will need to follow up with [facility] upon discharge - Abd U/s: Cirrhosis with ascites SIRS in the setting of ascites - Afebrile and leukocysotis trended down. - D/c Rocephin - Paracentesis performed yesterday by Dr. Casey Anemia, likely 2/2 GI Bleed - S/p 4 units of prbc transfused - Hematemesis has resolved, but patient had blood in stool yesterday * GI has signed off, patient needs o/p colonoscopy Hepatic encephalopathy with transient AMS - Mental status improved - Continue Rifaximin 550mg po bid History A-fib s/p cardioversion - Currently NSR - Continue to monitor. CAD s/p bare metal stent - Restarted on asa Diastolic CHF- Currently stable, will continue to monitor. Hematemesis 2/2 variceal bleeding due to decompensated cirrhosis - Resolved - Nadolol reduced to 10 mg, as per old dosage KEYUR due to ATN from hemorrhagic shock - Resolved - Creatinine continues to improve - Nephrology following GI/DVT PPHXS - Protonix - SCDs Dispo: - At this time, patient is stable for discharge to [facility] pending GI's follow up tomorrow. [facility]ed to [facility], awaiting authorization from his insurance, [employer]. Pt needs to follow up with [facility] for liver transplant <Fay Das - Last Filed: 10/17/17 17:10> Objective - Vital Signs/Intake and Output Vital Signs (last 24 hours): Temp Pulse Resp BP Pulse Ox 98 F 57 L 20 91/56 L 98 10/17/17 13:38 10/17/17 13:38 10/17/17 13:38 10/17/17 13:38 10/17/17 06:00 Intake and Output: 10/17/17 10/17/17 06:59 18:59 Intake Total 860 780 Balance 860 780 - Medications Medications: Current Medications Aspirin (Ecotrin) 81 mg PO DAILY [facility] Last Admin: 10/17/17 11:22 Dose: 81 mg Furosemide (Lasix) 20 mg PO DAILY [facility] Last Admin: 10/17/17 11:23 Dose: Not Given Lactulose (Enulose) 20 gm PO BID [facility] Last Admin: 10/17/17 11:25 Dose: Not Given Nadolol (Corgard) 10 mg PO DAILY [facility] Last Admin: 10/17/17 11:21 Dose: Not Given Ondansetron HCl (Zofran Inj) 4 mg IVP Q4H PRN PRN Reason: Nausea/Vomiting Last Admin: 10/06/17 09:50 Dose: 4 mg Pantoprazole Sodium (Protonix Ec Tab) 40 mg PO 0600 [facility] Last Admin: 10/17/17 05:34 Dose: 40 mg Potassium Phos/Sodium Phos (Neutra-Phos) 1 pkt PO BID [facility] Last Admin: 10/17/17 11:23 Dose: 1 pkt Rifaximin (Xifaxan) 550 mg PO BID [facility] PRN Reason: Protocol Last Admin: 10/17/17 11:23 Dose: 550 mg Spironolactone (Aldactone) 25 mg PO BID [facility] Last Admin: 10/17/17 11:21 Dose: Not Given - Labs Labs: 10/17/17 06:15 10/17/17 06:15 PT 15.9 SECONDS (9.4-12.5) H 10/10/17 06:50 INR 1.43 (0.93-1.08) H 10/10/17 06:50 APTT 33.5 Seconds (25.1-36.5) 10/06/17 04:45 Attending/Attestation - Attestation I have personally seen and examined this patient.: Yes I have fully participated in the care of the patient.: Yes I have reviewed all pertinent clinical information, including history, physical exam and plan: Yes Notes (Text): I have seen and examined the patient at bedside. Agree with the above note with the following additions/ exceptions: Briefly this is 62 year old male with history of cryptogenic cirrhosis, former smoker, former alcohol abuser, HTN, CHF (EF~45-50%), afib recently cardioverted to normal sinus rhythm, CAD s/p bare metal stent on aspirin who was admitted with GI bleed secondary to esophageal varices and portal gastropathy. He is status post EGD and banding x9. Currently feeling well and denies any bleeding. He is able to eat without any problem and has a good appetite. Continue Protonix. Continue nadolol. Repeat Paracentesis was done followed by albumin infusion. Ascitic fluid culture has been negative. Continue rifaxamin. Patient refuses to take lactulose due to diarrhea. He had BM today. Patient reported that he had blood in the stools. FOBT came back positive. Complains of abdominal pain and tenderness which is slightly better today. US abdomen is normal. GI follow up appreciated and they recommended outpatient endoscopy and colonoscopy. Creatinine is stable. Will restart low dose lasix and continue aldactone. Patient feels energetic today. PT eval recommended NONA. Awaiting placement. Advised patient to follow up with [facility] Hepatology / transplant clinic. Upon discharge patient will follow up with Dr. Lew. Dr Fay Das
[2017-10-18] MEDS: Pantoprazole 40 mg EC Tab PO SCH (05:21)
[2017-10-18 07:09] LABS: BASO # 0.05 K/mm3 (0.0-2.0); EOS # 0.2 (0.0-0.7); EOS % 3.6 % (1.5-5.0); GRAN # 2.88 (1.4-6.5); GRAN % 57.9 % (50.0-68.0); HEMATOCRIT 25.1 % (42.0-52.0); LYMPH # 1.3 (1.2-3.4); LYMPH % 25.1 % (22.0-35.0); MEAN CELL VOLUME 96.5 fl (80.0-105.0); MEAN CORPUSCULAR HEMOGLOBIN 31.9 pg (25.0-35.0); MEAN CORPUSCULAR HGB CONC 33.1 g/dl (31.0-37.0); MEAN PLATELET VOLUME 9.8 fl (7.0-11.0); MONO # 0.6 (0.1-0.6); MONO % 12.4 % (1.0-6.0); RED CELL DISTRIBUTION WIDTH 18.2 % (11.5-14.5)
[2017-10-18 07:29] LABS: ALKALINE PHOSPHATASE 261 U/L (38-126); ALT/SGPT 51 U/L (7-56); AST/SGOT 65 U/L (17-59); BILIRUBIN,TOTAL 1.4 mg/dL (0.2-1.3); BLOOD UREA NITROGEN 26 mg/dL (7-21); CALCIUM 8.6 mg/dL (8.4-10.5); CARBON DIOXIDE 26 mmol/L (21-33); CHLORIDE 100 mmol/L (98-107); GFR AFRICAN-AMERICAN > 60; GLUCOSE,RANDOM 91 mg/dL (70-110); POTASSIUM 4.4 mmol/L (3.6-5.0); SODIUM 134 mmol/L (132-148); TOTAL PROTEIN 6.6 g/dL (5.8-8.3)
[2017-10-18 07:32] LABS: ALB/GLOB RATIO 0.8 (1.1-1.8)
[2017-10-18] MEDS: Potassium & Sodium Phosphate PO SCH ×2 (09:42→17:45)
--- NOTE | 2017-10-18 10:56 | CP.PCM.PN ---
Subjective - Date & Time of Evaluation Date of Evaluation: 10/18/17 Time of Evaluation: 10:15 - Subjective Subjective: Comfortable, no fevers, not in distress. Objective - Vital Signs/Intake and Output Vital Signs (last 24 hours): Temp Pulse Resp BP Pulse Ox 98.2 F 82 20 98/44 L 99 10/18/17 06:00 10/18/17 06:00 10/18/17 06:00 10/18/17 06:00 10/18/17 06:00 Intake and Output: 10/18/17 10/18/17 06:59 18:59 Intake Total 180 Balance 180 - Medications Medications: Current Medications Aspirin (Ecotrin) 81 mg PO DAILY [facility] Last Admin: 10/17/17 11:22 Dose: 81 mg Furosemide (Lasix) 20 mg PO DAILY [facility] Last Admin: 10/17/17 11:23 Dose: Not Given Lactulose (Enulose) 20 gm PO BID [facility] Last Admin: 10/17/17 18:13 Dose: Not Given Nadolol (Corgard) 10 mg PO DAILY [facility] Last Admin: 10/17/17 11:21 Dose: Not Given Ondansetron HCl (Zofran Inj) 4 mg IVP Q4H PRN PRN Reason: Nausea/Vomiting Last Admin: 10/06/17 09:50 Dose: 4 mg Pantoprazole Sodium (Protonix Ec Tab) 40 mg PO 0600 [facility] Last Admin: 10/18/17 05:21 Dose: 40 mg Potassium Phos/Sodium Phos (Neutra-Phos) 1 pkt PO BID [facility] Last Admin: 10/17/17 18:13 Dose: 1 pkt Rifaximin (Xifaxan) 550 mg PO BID [facility] PRN Reason: Protocol Last Admin: 10/17/17 18:12 Dose: 550 mg Spironolactone (Aldactone) 25 mg PO BID [facility] Last Admin: 10/17/17 18:12 Dose: Not Given - Labs Labs: 10/18/17 07:00 10/18/17 07:00 PT 15.9 SECONDS (9.4-12.5) H 10/10/17 06:50 INR 1.43 (0.93-1.08) H 10/10/17 06:50 APTT 33.5 Seconds (25.1-36.5) 10/06/17 04:45 - Constitutional Appears: Cachectic, Chronically Ill - Head Exam Head Exam: NORMAL INSPECTION - Respiratory Exam Respiratory Exam: Decreased Breath Sounds - Cardiovascular Exam Cardiovascular Exam: +S1, +S2 - GI/Abdominal Exam GI & Abdominal Exam: Distended, Soft. absent: Guarding, Rigid, Tenderness Assessment and Plan - Assessment and Plan (Free Text) Plan: Assessment S/P systemic inflammatory response syndrome, consider due to upper GI bleeding, consider variceal bleeding, unlikely spontaneous bacterial peritonitis since the 10/04 ascitic fluid cx are negative history of probable spontaneous bacterial peritonitis non-alcoholic steatohepatitis with liver cirrhosis and ascites Atrial fibrillation chronic renal failure Plan will continue to monitor clinically off antibiotics since he is at risk for hospital-acquired infections overall prognosis is poor
--- NOTE | 2017-10-18 15:13 | CP.PCM.PN ---
<NomanRfaael - Last Filed: 10/18/17 15:09> Subjective - Date & Time of Evaluation Date of Evaluation: 10/18/17 Time of Evaluation: 15:09 - Subjective Subjective: IM progress note for Dr. Brannon Das - [facility] DO PGY - Pt s/e bedside. States that he feels weaker today and that his abdomen hurts. No n/v/d. Patient has a good appetite. No symptoms of infection. Pt did not have any pain medication last night and he was fine. Reports 3 non-bloody bm's since yesterday. Pending [facility] authorization for discharge to rehab. Spoke to both manager social and case finisher, insurance needs a new PT eval on the patient, and then will give a decision within 24 hours after it is done. Last time PT evaluated patient was yesterday, so the insurance should come through today. GI has signed off the case. No further complaints at this time, including n/v/d/f/ch. Objective - Vital Signs/Intake and Output Vital Signs (last 24 hours): Temp Pulse Resp BP Pulse Ox 97.1 F L 65 19 104/56 L 99 10/18/17 12:00 10/18/17 12:00 10/18/17 12:00 10/18/17 12:00 10/18/17 06:00 Intake and Output: 10/18/17 10/18/17 06:59 18:59 Intake Total 180 Balance 180 - Medications Medications: Current Medications Aspirin (Ecotrin) 81 mg PO DAILY [facility] Last Admin: 10/18/17 09:42 Dose: 81 mg Furosemide (Lasix) 20 mg PO DAILY [facility] Last Admin: 10/18/17 09:43 Dose: Not Given Lactulose (Enulose) 20 gm PO BID [facility] Last Admin: 10/18/17 09:43 Dose: Not Given Nadolol (Corgard) 10 mg PO DAILY [facility] Last Admin: 10/18/17 09:42 Dose: Not Given Ondansetron HCl (Zofran Inj) 4 mg IVP Q4H PRN PRN Reason: Nausea/Vomiting Last Admin: 10/06/17 09:50 Dose: 4 mg Pantoprazole Sodium (Protonix Ec Tab) 40 mg PO 0600 [facility] Last Admin: 10/18/17 05:21 Dose: 40 mg Potassium Phos/Sodium Phos (Neutra-Phos) 1 pkt PO BID [facility] Last Admin: 10/18/17 09:42 Dose: 1 pkt Rifaximin (Xifaxan) 550 mg PO BID [facility] PRN Reason: Protocol Last Admin: 10/18/17 09:42 Dose: 550 mg Spironolactone (Aldactone) 25 mg PO BID [facility] Last Admin: 10/18/17 09:42 Dose: 25 mg - Labs Labs: 10/18/17 07:00 10/18/17 07:00 PT 15.9 SECONDS (9.4-12.5) H 10/10/17 06:50 INR 1.43 (0.93-1.08) H 10/10/17 06:50 APTT 33.5 Seconds (25.1-36.5) 10/06/17 04:45 - Additional Findings Additional findings: Phys Exam: VS as below Const'l: a&o x 4, nad Head/Neck: neck supple, no jvd, trachea midline, carotid midline, no cervical /head mass Eyes: verito, nonicteric sclera, eom intact ENT: auditory acuity grossly intact, throat not congested, no nasal deformity Cardio: rrr, no m/r/g, no carotid bruit, nml s1, s2 Pulm: no accessory muscle use, equal nml breath sounds bilaterally, ctab Abd: +mild TTP in diffuse quadrants; s/nd, nbs x 4 q, no palpable masses Derm: no rashes, no ulcers, no lesions Extr: no edema, no cyanosis, no calf tenderness, no lesions, no varicosities Neuro: cn II-XII grossly intact, ue and le 5/5 muscle strength bilaterally, no los ue, le bilaterally and core Assessment and Plan - Assessment and Plan (Free Text) Assessment: A/P 62 M with PMHx of TRUJILLO, afib s/p cardioversion, HTN, GERD, CHF whom presented with hematemesis and was found to have ascites s/p paracentesis and anemia s/p 4 units of prbc transfusions and EGD with 9 gastric banding of varices. S/p paracentesis X 2, cultures negative Decompensated liver cirrhosis with ascites with h/o TRUJILLO - MELD score was 24, now 19 - Will continue to trend LFTs - Patient will need to follow up with [facility] upon discharge for liver transplant - Abd U/s: Cirrhosis with ascites Hypotension - Aldactone was held earlier due to bp. - Pt started on midodrine 10 tid SIRS in the setting of ascites - Resolved - Afebrile and leukocysotis trended down. - D/c Rocephin - Paracentesis performed yesterday by Dr. Casey Anemia, likely 2/2 GI Bleed - S/p 4 units of prbc transfused - Hematemesis has resolved, but patient had blood in stool yesterday * GI has signed off, patient needs o/p colonoscopy Hepatic encephalopathy with transient AMS - Mental status improved - Continue Rifaximin 550mg po bid History A-fib s/p cardioversion - Currently NSR - Continue to monitor. CAD s/p bare metal stent - Restarted on asa Diastolic CHF- Currently stable, will continue to monitor. Hematemesis 2/2 variceal bleeding due to decompensated cirrhosis - Resolved - Nadolol reduced to 10 mg, as per old dosage KEYUR due to ATN from hemorrhagic shock - Resolved - Creatinine continues to improve - Nephrology following GI/DVT PPHXS - Protonix - SCDs Dispo: Awaiting auth from insurance. PT still recommends NONA <Fay Das - Last Filed: 10/18/17 15:31> Objective - Vital Signs/Intake and Output Vital Signs (last 24 hours): Temp Pulse Resp BP Pulse Ox 97.1 F L 65 19 104/56 L 99 10/18/17 12:00 10/18/17 12:00 10/18/17 12:00 10/18/17 12:00 10/18/17 06:00 Intake and Output: 10/18/17 10/18/17 06:59 18:59 Intake Total 180 Balance 180 - Medications Medications: Current Medications Aspirin (Ecotrin) 81 mg PO DAILY [facility] Last Admin: 10/18/17 09:42 Dose: 81 mg Furosemide (Lasix) 20 mg PO DAILY [facility] Last Admin: 10/18/17 09:43 Dose: Not Given Lactulose (Enulose) 20 gm PO BID [facility] Last Admin: 10/18/17 09:43 Dose: Not Given Midodrine (Proamatine) 10 mg PO TID [facility] Nadolol (Corgard) 10 mg PO DAILY [facility] Last Admin: 10/18/17 09:42 Dose: Not Given Ondansetron HCl (Zofran Inj) 4 mg IVP Q4H PRN PRN Reason: Nausea/Vomiting Last Admin: 10/06/17 09:50 Dose: 4 mg Pantoprazole Sodium (Protonix Ec Tab) 40 mg PO 0600 [facility] Last Admin: 10/18/17 05:21 Dose: 40 mg Potassium Phos/Sodium Phos (Neutra-Phos) 1 pkt PO BID [facility] Last Admin: 10/18/17 09:42 Dose: 1 pkt Rifaximin (Xifaxan) 550 mg PO BID [facility] PRN Reason: Protocol Last Admin: 10/18/17 09:42 Dose: 550 mg Spironolactone (Aldactone) 25 mg PO BID [facility] Last Admin: 10/18/17 09:42 Dose: 25 mg - Labs Labs: 10/18/17 07:00 10/18/17 07:00 PT 15.9 SECONDS (9.4-12.5) H 10/10/17 06:50 INR 1.43 (0.93-1.08) H 10/10/17 06:50 APTT 33.5 Seconds (25.1-36.5) 10/06/17 04:45 Attending/Attestation - Attestation I have personally seen and examined this patient.: Yes I have fully participated in the care of the patient.: Yes I have reviewed all pertinent clinical information, including history, physical exam and plan: Yes Notes (Text): I have seen and examined the patient at bedside. Agree with the above note with the following additions/ exceptions: Briefly this is 62 year old male with history of cryptogenic cirrhosis, former smoker, former alcohol abuser, HTN, CHF (EF~45-50%), afib recently cardioverted to normal sinus rhythm, CAD s/p bare metal stent on aspirin who was admitted with GI bleed secondary to esophageal varices and portal gastropathy. He is status post EGD and banding x 9. Currently feeling well and denies any bleeding. He is able to eat without any problem and has a good appetite. Continue Protonix. Continue nadolol. Repeat Paracentesis was done followed by albumin infusion. Ascitic fluid culture has been negative. Continue rifaxamin. Patient refuses to take lactulose due to diarrhea. He had BM today. US abdomen is normal. GI follow up appreciated and they recommended outpatient endoscopy and colonoscopy. Creatinine is stable. Will continue low dose lasix and aldactone. Add midodrine as BP has been low. Patient feels better today. PT re eval was requested who again recommended NONA. Awaiting placement. Advised patient to follow up with [facility] Hepatology / transplant clinic. Upon discharge patient will follow up with Dr. Lew. Dr Fay Das
[2017-10-19] MEDS: Pantoprazole 40 mg EC Tab PO SCH (05:08)
[2017-10-19 05:53] LABS: BASO # 0.05 K/mm3 (0.0-2.0); BASO % 0.9 % (0.0-3.0); EOS # 0.3 (0.0-0.7); EOS % 4.7 % (1.5-5.0); GRAN # 3.13 (1.4-6.5); GRAN % 58.8 % (50.0-68.0); HEMATOCRIT 25.6 % (42.0-52.0); LYMPH # 1.3 (1.2-3.4); MEAN CELL VOLUME 97.7 fl (80.0-105.0); MEAN CORPUSCULAR HEMOGLOBIN 32.4 pg (25.0-35.0); MEAN CORPUSCULAR HGB CONC 33.2 g/dl (31.0-37.0); MEAN PLATELET VOLUME 9.4 fl (7.0-11.0); MONO # 0.6 (0.1-0.6); MONO % 11.6 % (1.0-6.0); RED CELL DISTRIBUTION WIDTH 18.4 % (11.5-14.5); WHITE BLOOD COUNT 5.3 10^3/ul (4.5-11.0)
[2017-10-19 05:55] VITALS: O2SAT 99
[2017-10-19 06:51] LABS: ALKALINE PHOSPHATASE 261 U/L (38-126); ALT/SGPT 45 U/L (7-56); AST/SGOT 77 U/L (17-59); BILIRUBIN,TOTAL 1.3 mg/dL (0.2-1.3); BLOOD UREA NITROGEN 27 mg/dL (7-21); CALCIUM 8.6 mg/dL (8.4-10.5); CARBON DIOXIDE 28 mmol/L (21-33); CHLORIDE 103 mmol/L (98-107); GFR AFRICAN-AMERICAN > 60; GLUCOSE,RANDOM 91 mg/dL (70-110); POTASSIUM 4.7 mmol/L (3.6-5.0); SODIUM 137 mmol/L (132-148); TOTAL PROTEIN 6.7 g/dL (5.8-8.3)
[2017-10-19 06:52] LABS: ALB/GLOB RATIO 0.7 (1.1-1.8)
[2017-10-19] MEDS: Potassium & Sodium Phosphate PO SCH (10:02)
--- NOTE | 2017-10-19 11:13 | CP.PCM.PN ---
Subjective - Date & Time of Evaluation Date of Evaluation: 10/19/17 Time of Evaluation: 10:30 - Subjective Subjective: No fevers, no diarrhea, not in distress. Objective - Vital Signs/Intake and Output Vital Signs (last 24 hours): Temp Pulse Resp BP Pulse Ox 97.4 F L 60 19 103/54 L 99 10/19/17 05:54 10/19/17 05:54 10/19/17 05:54 10/19/17 05:54 10/19/17 05:54 Intake and Output: 10/19/17 10/19/17 06:59 18:59 Intake Total 180 Output Total 700 Balance -520 - Medications Medications: Current Medications Aspirin (Ecotrin) 81 mg PO DAILY [facility] Last Admin: 10/18/17 09:42 Dose: 81 mg Furosemide (Lasix) 20 mg PO DAILY [facility] Last Admin: 10/18/17 09:43 Dose: Not Given Lactulose (Enulose) 20 gm PO BID [facility] Last Admin: 10/18/17 17:45 Dose: Not Given Midodrine (Proamatine) 10 mg PO TID [facility] Last Admin: 10/18/17 17:45 Dose: 10 mg Nadolol (Corgard) 10 mg PO DAILY [facility] Last Admin: 10/18/17 09:42 Dose: Not Given Ondansetron HCl (Zofran Inj) 4 mg IVP Q4H PRN PRN Reason: Nausea/Vomiting Last Admin: 10/06/17 09:50 Dose: 4 mg Pantoprazole Sodium (Protonix Ec Tab) 40 mg PO 0600 [facility] Last Admin: 10/19/17 05:08 Dose: 40 mg Potassium Phos/Sodium Phos (Neutra-Phos) 1 pkt PO BID [facility] Last Admin: 10/18/17 17:45 Dose: 1 pkt Spironolactone (Aldactone) 25 mg PO BID [facility] Last Admin: 10/18/17 17:46 Dose: 25 mg - Labs Labs: 10/19/17 05:45 10/19/17 05:45 PT 15.9 SECONDS (9.4-12.5) H 10/10/17 06:50 INR 1.43 (0.93-1.08) H 10/10/17 06:50 APTT 33.5 Seconds (25.1-36.5) 10/06/17 04:45 - Constitutional Appears: Non-toxic, Cachectic, Chronically Ill - Head Exam Head Exam: NORMAL INSPECTION - Respiratory Exam Respiratory Exam: Decreased Breath Sounds - Cardiovascular Exam Cardiovascular Exam: +S1, +S2 - GI/Abdominal Exam GI & Abdominal Exam: Distended, Soft. 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
[2017-10-19 12:47] VITALS: BP 125/67; PULSE 61; RESP 20; TEMP 98
--- NOTE | 2017-10-19 13:18 | CP.PCM.DIS ---
<Rafael Tineo - Last Filed: 10/19/17 13:08> Provider - Provider Date of Admission: 10/06/17 05:22 Attending physician: Fay Das MD Primary care physician: NO PRIMARY CARE PROVIDER Consults: Palliative Care: Ms. Rodriguez Infectious Dz: Dr. Christensen Nephrology: Dr. Gonzalez Gastroenterology: Dr. Garcia Time Spent in preparation of Discharge (in minutes): 45 Hospital Course - Lab Results Lab Results: Micro Results 10/12/17 15:00 Peritoneal Fluid Gram Stain - Final 10/12/17 15:00 Peritoneal Fluid Body Fluid Culture - Final No growth. 10/06/17 08:08 Blood-Venous Blood Culture - Final NO GROWTH AFTER 5 DAYS 10/06/17 08:08 Blood-Venous Gram Stain - Final TEST NOT PERFORMED 10/06/17 07:35 Blood-Venous Blood Culture - Final NO GROWTH AFTER 5 DAYS 10/06/17 07:35 Blood-Venous Gram Stain - Final TEST NOT PERFORMED 10/06/17 09:23 Naris MRSA Culture (Admit) - Final MRSA NOT DETECTED 10/06/17 18:00 Urine,Russell Urine Culture - Final No Growth (<1,000 CFU/ML) Most Recent Lab Values WBC 5.3 10^3/ul (4.5-11.0) 10/19/17 05:45 RBC 2.62 10^6/uL (3.5-6.1) L 10/19/17 05:45 Hgb 8.5 g/dL (14.0-18.0) L 10/19/17 05:45 Hct 25.6 % (42.0-52.0) L 10/19/17 05:45 MCV 97.7 fl (80.0-105.0) 10/19/17 05:45 MCH 32.4 pg (25.0-35.0) 10/19/17 05:45 MCHC 33.2 g/dl (31.0-37.0) 10/19/17 05:45 RDW 18.4 % (11.5-14.5) H 10/19/17 05:45 Plt Count 116 10^3/uL (120.0-450.0) L 10/19/17 05:45 MPV 9.4 fl (7.0-11.0) 10/19/17 05:45 Gran % 58.8 % (50.0-68.0) 10/19/17 05:45 Lymph % (Auto) 24.0 % (22.0-35.0) 10/19/17 05:45 [place] % (Auto) 11.6 % (1.0-6.0) H 10/19/17 05:45 Eos % (Auto) 4.7 % (1.5-5.0) 10/19/17 05:45 Baso % (Auto) 0.9 % (0.0-3.0) 10/19/17 05:45 Gran # 3.13 (1.4-6.5) 10/19/17 05:45 Lymph # 1.3 (1.2-3.4) 10/19/17 05:45 [place] # 0.6 (0.1-0.6) 10/19/17 05:45 Eos # 0.3 (0.0-0.7) 10/19/17 05:45 Baso # 0.05 K/mm3 (0.0-2.0) 10/19/17 05:45 PT 15.9 SECONDS (9.4-12.5) H 10/10/17 06:50 INR 1.43 (0.93-1.08) H 10/10/17 06:50 APTT 33.5 Seconds (25.1-36.5) 10/06/17 04:45 pO2 163 mm/Hg (30-55) H 10/06/17 16:45 VBG pH 7.32 (7.32-7.43) 10/06/17 16:45 VBG pCO2 36.0 (40-60) L 10/06/17 16:45 VBG HCO3 18.5 mmol/l (21-28) L 10/06/17 16:45 VBG Total CO2 19.6 mmol.L (22-28) L 10/06/17 16:45 VBG O2 Sat (Calc) 100.5 % (40-65) H 10/06/17 16:45 VBG Base Excess -6.9 mmol/L (0.0-2.0) L 10/06/17 16:45 VBG Potassium 4.9 mmol/L (3.6-5.2) 10/06/17 16:45 Sodium 139.0 mmol/L (132-148) 10/06/17 16:45 Chloride 116.0 mmol/L (98-107) H 10/06/17 16:45 Glucose 117 mg/dl (75-110) H 10/06/17 16:45 Lactate 2.7 mmol/L (0.7-2.1) H 10/06/17 16:45 FiO2 21.0 % 10/06/17 16:45 Sodium 137 mmol/L (132-148) 10/19/17 05:45 Potassium 4.7 mmol/L (3.6-5.0) 10/19/17 05:45 Chloride 103 mmol/L (98-107) 10/19/17 05:45 Carbon Dioxide 28 mmol/L (21-33) 10/19/17 05:45 Anion Gap 10 (10-20) 10/19/17 05:45 BUN 27 mg/dL (7-21) H 10/19/17 05:45 Creatinine 1.4 mg/dl (0.8-1.5) 10/19/17 05:45 Est GFR ( Amer) > 60 10/19/17 05:45 Est GFR (Non-Af Amer) 51 10/19/17 05:45 Random Glucose 91 mg/dL (70-110) 10/19/17 05:45 Calcium 8.6 mg/dL (8.4-10.5) 10/19/17 05:45 Phosphorus 3.4 mg/dL (2.5-4.5) 10/11/17 06:25 Magnesium 1.9 mg/dL (1.7-2.2) 10/11/17 06:25 Total Bilirubin 1.3 mg/dL (0.2-1.3) 10/19/17 05:45 AST 77 U/L (17-59) H 10/19/17 05:45 ALT 45 U/L (7-56) 10/19/17 05:45 Alkaline Phosphatase 261 U/L (38-126) H 10/19/17 05:45 Ammonia < 9 umol/L (9-33) L 10/10/17 06:50 Lactate Dehydrogenase 450 U/L (333-699) 10/06/17 04:45 Total Creatine Kinase 103 U/L (35-230) 10/06/17 04:45 Troponin I 0.02 ng/mL 10/06/17 16:45 Total Protein 6.7 g/dL (5.8-8.3) 10/19/17 05:45 Albumin 2.8 g/dL (3.0-4.8) L 10/19/17 05:45 Globulin 3.9 gm/dL 10/19/17 05:45 Albumin/Globulin Ratio 0.7 (1.1-1.8) L 10/19/17 05:45 Lipase 98 U/L (23-300) 10/06/17 04:45 Procalcitonin 0.28 NG/ML (0.19-0.49) 10/06/17 12:00 Venous Blood Potassium 4.9 mmol/L (3.6-5.2) 10/06/17 16:45 Urine Color Yellow (YELLOW) 10/14/17 03:30 Urine Appearance Sl cloudy (CLEAR) 10/14/17 03:30 Urine pH 5.5 (4.7-8.0) 10/14/17 03:30 Ur Specific [place] 1.025 (1.005-1.035) 10/14/17 03:30 Urine Protein Negative mg/dL (<30 mg/dL) 10/14/17 03:30 Urine Glucose (UA) Negative mg/dL (NEGATIVE) 10/14/17 03:30 Urine Ketones Negative mg/dL (NEGATIVE) 10/14/17 03:30 Urine Blood Small (NEGATIVE) H 10/14/17 03:30 Urine Nitrate Negative (NEGATIVE) 10/14/17 03:30 Urine Bilirubin Negative (NEGATIVE) 10/14/17 03:30 Urine Urobilinogen 0.2 E.U./dL (<1 E.U./dL) 10/14/17 03:30 Ur Leukocyte Esterase Negative Tomy/uL (NEGATIVE) 10/14/17 03:30 Urine RBC 1 - 3 /hpf (0-2) 10/14/17 03:30 Urine WBC 0 - 2 /hpf (0-6) 10/14/17 03:30 Ur Epithelial Cells 0 - 2 /hpf (0-5) 10/14/17 03:30 Urine Bacteria Few (NEG) 10/14/17 03:30 Fluid Source Peritoneal/ascites 10/12/17 15:00 Fluid Appearance Clear (CLEAR) 10/12/17 15:00 Fluid WBC 293.0 /uL (0.0-300.0) 10/12/17 15:00 Fluid RBC 461.0 /uL (0.0-0.0) H 10/12/17 15:00 Fluid Tot Cell Count 100 (0-0) H 10/12/17 15:00 Fluid Neutrophils 17.6 % (0-0) H 10/12/17 15:00 Fluid Lymphocytes 82.4 % (0-0) H 10/12/17 15:00 Fld Monocyte/Macrophag TEST NOT PERFORMED 10/12/17 15:00 Fluid Albumin 0.6 g/dL 10/12/17 15:00 Fluid Comment Yellow color 10/12/17 15:00 Peritoneal Tot Protein <3.0 g/dL 10/12/17 15:00 Peritoneal LDH 40 U/L (<63) 10/12/17 15:00 Peritoneal Glucose 103 mg/dL 10/12/17 15:00 Stool Occult Blood Positive (NEGATIVE) H 10/13/17 11:00 IgG 1543.5 mg/dL (700.0-1600.0) 10/07/17 09:30 NADEEN Screen Negative (Negative) 10/07/17 09:30 NADEEN Titer TEST NOT PERFORMED 10/07/17 09:30 NADEEN Titer 2 TEST NOT PERFORMED 10/07/17 09:30 NADEEN Pattern TEST NOT PERFORMED 10/07/17 09:30 NADEEN Pattern 2 TEST NOT PERFORMED 10/07/17 09:30 Anti-Mitochondrial Ab Negative (Negative) 10/07/17 09:30 Smooth Muscle Ab Titer TEST NOT PERFORMED 10/07/17 09:30 Anti-Smooth Muscle Ab Negative (Negative) 10/07/17 09:30 Liver/Kid Microsomes Ab <=20.0 U (<=20.0) 10/07/17 09:30 Blood Type A NEGATIVE 10/06/17 04:45 Antibody Screen Negative 10/06/17 04:45 Crossmatch See Detail 10/06/17 04:45 BBK History Checked Patient has bt 10/06/17 04:45 - Hospital Course Hospital Course: HPI: Patient is a 62 year old male with past medical history of TRUJILLO, afib s/p cardioversion, HTN, GERD, CHF presents to the ED for episodes of hematemesis. History was obtained by patients partner who has POA. Partner states patient had several episodes of vomiting with blood around 3:30 am today. Partner stated patient vomited up about 100-200ccs of blood. Patient also states he has shortness of breath and abdominal pain. Denies headaches, visual changes, hearing changes, cp, palpitations, urinary symptoms or other complaints at this time. Hospital Course: Throughout the course of his stay, Mr. Lane had the following imaging: Abdomen U/s 10/06 - Extrahepatic portal vein is patent with hepatopetal flow, small in caliber, small thrombus Abdomen U/s 10/15 - Cirrhosis with ascites and the following procedures: Paracentesis with pathology 10/12: Negative for malignant cells Paracentesis with Pathology 10/07: Cultures negative While at the hospital, Mr. Lane's abdominal pain and fluid overload improved. Pt was intermittently getting hypotensive 2/2 diuretic use, so he was given midodrine to maintain his pressure (which stabilized around 100s/60s) . Pt also had anemia 2/2 GIb which resolved. Pt's discharge was delayed 2/2 insurance authorization problems. PT suggested d/c to acute rehab. On day of discharge, patient had no complaints and was deemed stable. A/P 62 M with PMHx of TRUJILLO, afib s/p cardioversion, HTN, GERD, CHF whom presented with hematemesis and was found to have ascites s/p paracentesis and anemia s/p 4 units of prbc transfusions and EGD with 9 gastric banding of varices. S/p paracentesis X 2, cultures negative Decompensated liver cirrhosis with ascites with h/o TRUJILLO - MELD score was 24, now 19 - Will continue to trend LFTs - Patient will need to follow up with [facility] upon discharge for liver transplant - Abd U/s: Cirrhosis with ascites Hypotension - Aldactone was held earlier due to bp. - Pt started on midodrine 10 tid SIRS in the setting of ascites - Resolved - Afebrile and leukocysotis trended down. - D/c Rocephin - Paracentesis performed yesterday by Dr. Jacinto Vickers, likely 2/2 GI Bleed - S/p 4 units of prbc transfused - Hematemesis has resolved, but patient had blood in stool yesterday * GI has signed off, patient needs o/p colonoscopy Hepatic encephalopathy with transient AMS - Mental status improved - Continue Rifaximin 550mg po bid History A-fib s/p cardioversion - Currently NSR - Continue to monitor. CAD s/p bare metal stent - Restarted on asa Diastolic CHF- Currently stable, will continue to monitor. Hematemesis 2/2 variceal bleeding due to decompensated cirrhosis - Resolved - Nadolol reduced to 10 mg, as per old dosage KEYUR due to ATN from hemorrhagic shock - Resolved - Creatinine continues to improve - Nephrology following GI/DVT PPHXS - Protonix - SCDs Discharge Exam - Head Exam Head Exam: NORMAL INSPECTION - Additional Findings Additional findings: Phys Exam: VS as below Const'l: a&o x 4, nad Head/Neck: neck supple, no jvd, trachea midline, carotid midline, no cervical /head mass Eyes: verito, nonicteric sclera, eom intact ENT: auditory acuity grossly intact, throat not congested, no nasal deformity Cardio: rrr, no m/r/g, no carotid bruit, nml s1, s2 Pulm: no accessory muscle use, equal nml breath sounds bilaterally, ctab Abd: +mild TTP in diffuse quadrants; s/nd, nbs x 4 q, no palpable masses Derm: no rashes, no ulcers, no lesions Extr: no edema, no cyanosis, no calf tenderness, no lesions, no varicosities Neuro: cn II-XII grossly intact, ue and le 5/5 muscle strength bilaterally, no los ue, le bilaterally and core Discharge Plan - Discharge Medications Prescriptions: Midodrine [Proamatine] 10 mg PO TID #30 tab Phosphorus/Potassium/Sodium [Neutra-Phos] 1 pkt PO BID #5 packet - Follow Up Plan Condition: GUARDED Disposition: REHAB FACILITY/REHAB UNIT Instructions: Gastrointestinal Bleeding (DC), Hepatic Encephalopathy (DC) Referrals: PCP,NO [Primary Care Provider] - <Fay Das - Last Filed: 10/19/17 14:16> Provider - Provider Date of Admission: 10/06/17 05:22 Attending physician: Fay Das MD Primary care physician: NO PRIMARY CARE PROVIDER Hospital Course - Lab Results Lab Results: Micro Results 10/12/17 15:00 Peritoneal Fluid Gram Stain - Final 10/12/17 15:00 Peritoneal Fluid Body Fluid Culture - Final No growth. 10/06/17 08:08 Blood-Venous Blood Culture - Final NO GROWTH AFTER 5 DAYS 10/06/17 08:08 Blood-Venous Gram Stain - Final TEST NOT PERFORMED 10/06/17 07:35 Blood-Venous Blood Culture - Final NO GROWTH AFTER 5 DAYS 10/06/17 07:35 Blood-Venous Gram Stain - Final TEST NOT PERFORMED 10/06/17 09:23 Naris MRSA Culture (Admit) - Final MRSA NOT DETECTED 10/06/17 18:00 Urine,Russell Urine Culture - Final No Growth (<1,000 CFU/ML) Most Recent Lab Values WBC 5.3 10^3/ul (4.5-11.0) 10/19/17 05:45 RBC 2.62 10^6/uL (3.5-6.1) L 10/19/17 05:45 Hgb 8.5 g/dL (14.0-18.0) L 10/19/17 05:45 Hct 25.6 % (42.0-52.0) L 10/19/17 05:45 MCV 97.7 fl (80.0-105.0) 10/19/17 05:45 MCH 32.4 pg (25.0-35.0) 10/19/17 05:45 MCHC 33.2 g/dl (31.0-37.0) 10/19/17 05:45 RDW 18.4 % (11.5-14.5) H 10/19/17 05:45 Plt Count 116 10^3/uL (120.0-450.0) L 10/19/17 05:45 MPV 9.4 fl (7.0-11.0) 10/19/17 05:45 Gran % 58.8 % (50.0-68.0) 10/19/17 05:45 Lymph % (Auto) 24.0 % (22.0-35.0) 10/19/17 05:45 [place] % (Auto) 11.6 % (1.0-6.0) H 10/19/17 05:45 Eos % (Auto) 4.7 % (1.5-5.0) 10/19/17 05:45 Baso % (Auto) 0.9 % (0.0-3.0) 10/19/17 05:45 Gran # 3.13 (1.4-6.5) 10/19/17 05:45 Lymph # 1.3 (1.2-3.4) 10/19/17 05:45 [place] # 0.6 (0.1-0.6) 10/19/17 05:45 Eos # 0.3 (0.0-0.7) 10/19/17 05:45 Baso # 0.05 K/mm3 (0.0-2.0) 10/19/17 05:45 PT 15.9 SECONDS (9.4-12.5) H 10/10/17 06:50 INR 1.43 (0.93-1.08) H 10/10/17 06:50 APTT 33.5 Seconds (25.1-36.5) 10/06/17 04:45 pO2 163 mm/Hg (30-55) H 10/06/17 16:45 VBG pH 7.32 (7.32-7.43) 10/06/17 16:45 VBG pCO2 36.0 (40-60) L 10/06/17 16:45 VBG HCO3 18.5 mmol/l (21-28) L 10/06/17 16:45 VBG Total CO2 19.6 mmol.L (22-28) L 10/06/17 16:45 VBG O2 Sat (Calc) 100.5 % (40-65) H 10/06/17 16:45 VBG Base Excess -6.9 mmol/L (0.0-2.0) L 10/06/17 16:45 VBG Potassium 4.9 mmol/L (3.6-5.2) 10/06/17 16:45 Sodium 139.0 mmol/L (132-148) 10/06/17 16:45 Chloride 116.0 mmol/L (98-107) H 10/06/17 16:45 Glucose 117 mg/dl (75-110) H 10/06/17 16:45 Lactate 2.7 mmol/L (0.7-2.1) H 10/06/17 16:45 FiO2 21.0 % 10/06/17 16:45 Sodium 137 mmol/L (132-148) 10/19/17 05:45 Potassium 4.7 mmol/L (3.6-5.0) 10/19/17 05:45 Chloride 103 mmol/L (98-107) 10/19/17 05:45 Carbon Dioxide 28 mmol/L (21-33) 10/19/17 05:45 Anion Gap 10 (10-20) 10/19/17 05:45 BUN 27 mg/dL (7-21) H 10/19/17 05:45 Creatinine 1.4 mg/dl (0.8-1.5) 10/19/17 05:45 Est GFR ( Amer) > 60 10/19/17 05:45 Est GFR (Non-Af Amer) 51 10/19/17 05:45 Random Glucose 91 mg/dL (70-110) 10/19/17 05:45 Calcium 8.6 mg/dL (8.4-10.5) 10/19/17 05:45 Phosphorus 3.4 mg/dL (2.5-4.5) 10/11/17 06:25 Magnesium 1.9 mg/dL (1.7-2.2) 10/11/17 06:25 Total Bilirubin 1.3 mg/dL (0.2-1.3) 10/19/17 05:45 AST 77 U/L (17-59) H 10/19/17 05:45 ALT 45 U/L (7-56) 10/19/17 05:45 Alkaline Phosphatase 261 U/L (38-126) H 10/19/17 05:45 Ammonia < 9 umol/L (9-33) L 10/10/17 06:50 Lactate Dehydrogenase 450 U/L (333-699) 10/06/17 04:45 Total Creatine Kinase 103 U/L (35-230) 10/06/17 04:45 Troponin I 0.02 ng/mL 10/06/17 16:45 Total Protein 6.7 g/dL (5.8-8.3) 10/19/17 05:45 Albumin 2.8 g/dL (3.0-4.8) L 10/19/17 05:45 Globulin 3.9 gm/dL 10/19/17 05:45 Albumin/Globulin Ratio 0.7 (1.1-1.8) L 10/19/17 05:45 Lipase 98 U/L (23-300) 10/06/17 04:45 Procalcitonin 0.28 NG/ML (0.19-0.49) 10/06/17 12:00 Venous Blood Potassium 4.9 mmol/L (3.6-5.2) 10/06/17 16:45 Urine Color Yellow (YELLOW) 10/14/17 03:30 Urine Appearance Sl cloudy (CLEAR) 10/14/17 03:30 Urine pH 5.5 (4.7-8.0) 10/14/17 03:30 Ur Specific [place] 1.025 (1.005-1.035) 10/14/17 03:30 Urine Protein Negative mg/dL (<30 mg/dL) 10/14/17 03:30 Urine Glucose (UA) Negative mg/dL (NEGATIVE) 10/14/17 03:30 Urine Ketones Negative mg/dL (NEGATIVE) 10/14/17 03:30 Urine Blood Small (NEGATIVE) H 10/14/17 03:30 Urine Nitrate Negative (NEGATIVE) 10/14/17 03:30 Urine Bilirubin Negative (NEGATIVE) 10/14/17 03:30 Urine Urobilinogen 0.2 E.U./dL (<1 E.U./dL) 10/14/17 03:30 Ur Leukocyte Esterase Negative Tomy/uL (NEGATIVE) 10/14/17 03:30 Urine RBC 1 - 3 /hpf (0-2) 10/14/17 03:30 Urine WBC 0 - 2 /hpf (0-6) 10/14/17 03:30 Ur Epithelial Cells 0 - 2 /hpf (0-5) 10/14/17 03:30 Urine Bacteria Few (NEG) 10/14/17 03:30 Fluid Source Peritoneal/ascites 10/12/17 15:00 Fluid Appearance Clear (CLEAR) 10/12/17 15:00 Fluid WBC 293.0 /uL (0.0-300.0) 10/12/17 15:00 Fluid RBC 461.0 /uL (0.0-0.0) H 10/12/17 15:00 Fluid Tot Cell Count 100 (0-0) H 10/12/17 15:00 Fluid Neutrophils 17.6 % (0-0) H 10/12/17 15:00 Fluid Lymphocytes 82.4 % (0-0) H 10/12/17 15:00 Fld Monocyte/Macrophag TEST NOT PERFORMED 10/12/17 15:00 Fluid Albumin 0.6 g/dL 10/12/17 15:00 Fluid Comment Yellow color 10/12/17 15:00 Peritoneal Tot Protein <3.0 g/dL 10/12/17 15:00 Peritoneal LDH 40 U/L (<63) 10/12/17 15:00 Peritoneal Glucose 103 mg/dL 10/12/17 15:00 Stool Occult Blood Positive (NEGATIVE) H 10/13/17 11:00 IgG 1543.5 mg/dL (700.0-1600.0) 10/07/17 09:30 NADEEN Screen Negative (Negative) 10/07/17 09:30 NADEEN Titer TEST NOT PERFORMED 10/07/17 09:30 NADEEN Titer 2 TEST NOT PERFORMED 10/07/17 09:30 NADEEN Pattern TEST NOT PERFORMED 10/07/17 09:30 NADEEN Pattern 2 TEST NOT PERFORMED 10/07/17 09:30 Anti-Mitochondrial Ab Negative (Negative) 10/07/17 09:30 Smooth Muscle Ab Titer TEST NOT PERFORMED 10/07/17 09:30 Anti-Smooth Muscle Ab Negative (Negative) 10/07/17 09:30 Liver/Kid Microsomes Ab <=20.0 U (<=20.0) 10/07/17 09:30 Blood Type A NEGATIVE 10/06/17 04:45 Antibody Screen Negative 10/06/17 04:45 Crossmatch See Detail 10/06/17 04:45 BBK History Checked Patient has bt 10/06/17 04:45 Attending/Attestation - Attestation I have personally seen and examined this patient.: Yes I have fully participated in the care of the patient.: Yes I have reviewed all pertinent clinical information, including history, physical exam and plan: Yes Notes (Text): I have seen and examined the patient at bedside. Agree with the above note with the following additions/ exceptions: Briefly this is 62 year old male with history of cryptogenic cirrhosis, former smoker, former alcohol abuser, HTN, CHF (EF~45-50%), afib recently cardioverted to normal sinus rhythm, CAD s/p bare metal stent on aspirin who was admitted with GI bleed secondary to esophageal varices and portal gastropathy. He is status post EGD and banding x 9. Currently feeling well and denies any bleeding. He is able to eat without any problem and has a good appetite. Continue Protonix. Continue nadolol. Repeat Paracentesis was done followed by albumin infusion. Ascitic fluid culture has been negative. Continue rifaxamin. Patient refuses to take lactulose due to diarrhea. He had 2 BM today. US abdomen is normal. GI follow up appreciated and they recommended outpatient endoscopy and colonoscopy. Creatinine is stable. Will continue low dose lasix and aldactone. Add midodrine as BP has been low. Patient feels better today. PT re eval was requested who again recommended NONA. Advised patient to follow up with [facility] Hepatology / transplant clinic. Upon discharge patient will follow up with Dr. Lew. Dr Fay Das
== END 2017-10-19 17:22 | DRG 468 ==
LOC: ED 04:27 → ERH 05:22 → CCU 09:14 → 3RSO 10-09 22:27
PROVIDERS: ADMIT Internal Medicine; ATTEND Hospitalist
PROC: 06L38CZ Occlusion of Esophageal Vein with Extraluminal Device, Via Natural or Artificial Opening Endoscopic (ICD-10-PCS; 2017-10-06)
PROC: 02HV33Z Insertion of Infusion Device into Superior Vena Cava, Percutaneous Approach (ICD-10-PCS; 2017-10-06)
PROC: B543ZZA Ultrasonography of Right Jugular Veins, Guidance (ICD-10-PCS; 2017-10-06)
PROC: 30233K1 Transfusion of Nonautologous Frozen Plasma into Peripheral Vein, Percutaneous Approach (ICD-10-PCS; 2017-10-06)
PROC: 30233N1 Transfusion of Nonautologous Red Blood Cells into Peripheral Vein, Percutaneous Approach (ICD-10-PCS; 2017-10-06)
PROC: 6A550Z2 Pheresis of Platelets, Single (ICD-10-PCS; 2017-10-06)
PROC: 0W9G3ZZ Drainage of Peritoneal Cavity, Percutaneous Approach (ICD-10-PCS; principal; 2017-10-12)
DX: K74.69 Other cirrhosis of liver (principal); I85.11 Secondary esophageal varices with bleeding; K72.90 Hepatic failure, unspecified without coma; N17.0 Acute kidney failure with tubular necrosis; R57.8 Other shock; R65.10 Systemic inflammatory response syndrome (SIRS) of non-infectious origin without acute organ dysfunction; I50.30 Unspecified diastolic (congestive) heart failure; D69.6 Thrombocytopenia, unspecified; I13.0 Hypertensive heart and chronic kidney disease with heart failure and stage 1 through stage 4 chronic kidney disease, or unspecified chronic kidney disease; R18.8 Other ascites; N18.9 Chronic kidney disease, unspecified; K75.81 Nonalcoholic steatohepatitis (NASH); D50.0 Iron deficiency anemia secondary to blood loss (chronic); R64 Cachexia; E83.39 Other disorders of phosphorus metabolism; I48.91 Unspecified atrial fibrillation; I25.10 Atherosclerotic heart disease of native coronary artery without angina pectoris; K21.9 Gastro-esophageal reflux disease without esophagitis; K76.6 Portal hypertension; K31.89 Other diseases of stomach and duodenum; R19.7 Diarrhea, unspecified; Z68.1 Body mass index [BMI] 19.9 or less, adult; Z95.5 Presence of coronary angioplasty implant and graft; Z87.891 Personal history of nicotine dependence; Z87.01 Personal history of pneumonia (recurrent); Z75.1 Person awaiting admission to adequate facility elsewhere

== ENCOUNTER 2017-11-20 19:47 | Inpatient (IN) | payer MEDICAID ==
[2017-11-20 19:55] VITALS: BMI 20.6
--- NOTE | 2017-11-20 20:18 | ED PDOC ---
Arrival/HPI - General Chief Complaint: Altered Mental Status Time Seen by Provider: 11/20/17 19:47 Historian: Patient, Partner - History of Present Illness Narrative History of Present Illness (Text): 11/20/17 20:04 A 62 year old female, whose past medical history includes portal hypertension, esophageal varices, upper GI bleed, non-alcohol liver cirrhosis, hypertension, GERD, Atrial Fibrillation, CAD with stents, is brought in by ambulance and presents to the emergency department for evaluation of confusion this evening. Patient reports experiencing some abdominal discomfort. Patient denies of any fever, chills, nausea, vomiting, diarrhea, head trauma, or any other complaints. PMD: Dr. Bishop Past Medical History - Provider Review Nursing Documentation Reviewed: Yes - Cardiac Hx Cardiac Disorders: Yes Hx Congestive Heart Failure: Yes Hx Hypertension: Yes - Pulmonary Hx Respiratory Disorders: Yes (SMOKED CIGARETTES,QUIT SMOKING.PPDQUIT 1.5 YR AGO ) Hx Pneumonia: Yes (09-02-17) - Neurological Hx Neurological Disorder: No - HEENT Hx HEENT Disorder: No - Renal Hx Renal Failure: Yes (CKD St IV) - Endocrine/Metabolic Hx Endocrine Disorders: No - Hematological/Oncological Hx Blood Disorders: Yes Hx Cirrhosis: Yes (PARACENTESIS) - Integumentary Hx Dermatological Disorder: No - Musculoskeletal/Rheumatological Hx Musculoskeletal Disorders: Yes Hx Falls: Yes Hx Unsteady Gait: Yes - Gastrointestinal Hx Gastrointestinal Disorders: Yes (N0N ALCOHOLIC LIVER CIRRHOSIS,H/O GI BLEED, INGUINAL HERNIA REPAIR) Hx Gastroesophageal Reflux: Yes - Genitourinary/Gynecological Hx Genitourinary Disorders: No - Psychiatric Hx Psychophysiologic Disorder: No Hx Substance Use: No - Surgical History Hx Coronary Stent: Yes (09-05-17) - Anesthesia Hx Anesthesia Reactions: No Hx Malignant Hyperthermia: No Family/Social History - Physician Review Nursing Documentation Reviewed: Yes Family/Social History: No Known Family HX Smoking Status: Former Smoker Hx Alcohol Use: No Hx Substance Use: No Allergies/Home Meds Allergies/Adverse Reactions: Allergies Beef Containing Products Allergy (Severe, Verified 11/20/17 19:51) ANAPHYLAXIS tounge swelling, beef derived (bovine) Allergy (Severe, Verified 11/20/17 19:51) ANAPHYLAXIS tounge swelling banana Allergy (Intermediate, Verified 11/20/17 19:51) ITCHING Home Medications: Home Meds Medication Instructions Recorded Confirmed Furosemide [Lasix] 40 mg PO DAILY 07/21/17 11/20/17 Pantoprazole [Protonix EC Tab] 40 mg PO DAILY 07/21/17 11/20/17 Ascorbic Acid [Vitamin C] 1,000 mg PO BID 11/20/17 11/20/17 Cholecalciferol (Vitamin D3) 2,000 unit PO DAILY 11/20/17 11/20/17 [Vitamin D3] Cyanocobalamin [Vitamin B12 1000 1,000 mcg PO DAILY 11/20/17 11/20/17 mcg Tab] Furosemide [Lasix] 20 mg PO DAILY 11/20/17 11/20/17 Nadolol [Corgard] 10 mg PO DAILY 11/20/17 11/20/17 Ondansetron [Zofran] 4 mg PO Q8 PRN 11/20/17 11/20/17 Phosphorus/Potassium/Sodium 2 pkt PO BID 11/20/17 11/20/17 [Neutra-Phos] Spironolactone 100 mg PO DAILY 11/20/17 11/20/17 Spironolactone [Aldactone] 25 mg PO BID 11/20/17 11/20/17 Review of Systems - Physician Review All systems were reviewed & negative as marked: Yes - Review of Systems Constitutional: absent: Fevers, Night Sweats, Other (no head trauma) Gastrointestinal: Abdominal Pain (some abdominal discomfort). absent: Diarrhea , Nausea, Vomiting Physical Exam Vital Signs Reviewed: Yes Vital Signs Temp Pulse Resp BP Pulse Ox 11/20/17 22:00 68 18 105/71 100 11/20/17 20:12 97.8 F 11/20/17 19:51 63 16 117/77 100 Blood Pressure: Normal Pulse: Regular Respiratory Rate: Normal Appearance: Positive for: Well-Appearing Pain Distress: None Mental Status: No: Alert and Oriented X 3 (alert and oriented in place and person only) Finger Stick Blood Glucose: 137 - Systems Exam Pupils: Present: PERRL Extroacular Muscles: Present: EOMI Conjunctiva: Present: Normal Ears: Present: Normal Mouth: Present: Moist Mucous Membranes Neck: Present: Normal Range of Motion Respiratory/Chest: Present: Clear to Auscultation, Good Air Exchange. No: Respiratory Distress, Accessory Muscle Use Cardiovascular: Present: Regular Rate and Rhythm, Normal S1, S2. No: Murmurs Abdomen: Present: Tenderness (mildly diffused mid to upper tenderness to palpation), Normal Bowel Sounds. No: Rebound, Guarding Rectal: No: Occult Blood Lower Extremity: Present: Normal Inspection. No: Edema, Cyanosis Neurological: Present: GCS=15, CN II-XII Intact, Speech Normal Psychiatric: Present: Alert. No: Oriented x 3 (place and person only) Medical Decision Making ED Course and Treatment: 11/20/17 20:07 Impression: 62 year old male here for evaluation of confusion. Physical exam shows mid to upper tenderness to palpation, no guarding, no rebound, positive bowel sounds; patient is awake, alert, and oriented in place and person only; on rectal examination, no occult blood; rest of examination is normal. Plan: -- EKG -- Head CT -- CT ABD & Pelvis -- Chest X-ray -- Labs -- IV Fluids -- Urinalysis -- Reassess and disposition Prior Visits: Notes and results from previous visits were reviewed. Patient was last seen in the emergency department on 10/06/2017 for sudden onset of hematemesis. Patient was admitted. Progress Notes: EXAM: CT Head Without Intravenous Contrast Dictated and Authenticated by: Kamryn Medina MD 11/20/2017 9:22 PM IMPRESSION: No CT evidence of acute intracranial abnormality. EXAM: CT Abdomen and Pelvis With Intravenous Contrast Dictated and Authenticated by: Kamryn Medina MD 11/20/2017 8:01 PM IMPRESSION: Evaluation of bowel is limited without enteric contrast. Stomach is collapsed, limiting its evaluation. Segment of small bowel wall prominence in the left midabdomen, best seen on coronal image 62, cannot exclude inflammation or other abnormality at this site. Retained fecal material in the colon. Normal-caliber appendix. Additional details/findings as above. Correlate clinically. Followup as warranted. 11/20/17 22:25 EKG shows NSR at 63 BPM with normal intervals. Normal EKG. Interpreted by me. 11/20/17 22:27 Case d/w medical office supervisor and house doctor . Pt. accepted to hospitalist service. - Lab Interpretations Lab Results: 11/20/17 20:10 11/20/17 20:10 Lab Results 11/20/17 20:44: Ammonia 68 H 11/20/17 20:10: WBC 6.1, RBC 2.83 L, Hgb 8.8 L, Hct 26.6 L, MCV 94.0 D, MCH 31.1, MCHC 33.1, RDW 17.7 H, Plt Count 153, MPV 9.9 11/20/17 20:10: Sodium 135, Potassium 3.8, Chloride 100, Carbon Dioxide 25, Anion Gap 15, BUN 25 H, Creatinine 1.9 H, Est GFR ( Amer) 44, Est GFR ( Non-Af Amer) 36, Random Glucose 173 H, Calcium 8.9, Total Bilirubin 2.5 H, AST 75 H, ALT 44, Alkaline Phosphatase 298 H, Lactate Dehydrogenase 451, Total Creatine Kinase 231 H, CK-MB (CK-2) 3.6, CK-MB (CK-2) % Cancelled, Troponin I 0.02, Total Protein 8.5 H, Albumin 3.2, Globulin 5.3, Albumin/Globulin Ratio 0.6 L, Lipase 118 11/20/17 20:10: PT 15.8 H, INR 1.44 H, APTT 36.8 H - RAD Interpretation Radiology Orders: 11/20/17 20:07 HEAD W/O CONTRAST [CT] Stat CHEST PORTABLE [RAD] Stat 11/20/17 20:52 ABD & PELVIS W/O PO OR IV CONT [CT] Stat - Medication Orders Current Medication Orders: Sodium Chloride (Sodium Chloride 0.9%) 1,000 mls @ 100 mls/hr IV .Q10H [place] Last Admin: 11/20/17 20:20 Dose: 100 mls/hr eMAR Start Stop Document 11/20/17 20:20 AD (Rec: 11/20/17 20:25 AD [id number]) Intravenous Solution Start Date 11/20/17 Start Time 20:20 Discontinued Medications Lactulose (Enulose) 20 gm PO ONCE STA Stop: 11/20/17 21:50 Last Admin: 11/20/17 22:03 Dose: 20 gm - Scribe Statement The provider has reviewed the documentation as recorded by the Corina Saravia Provider Scribe Attestation: All medical record entries made by the Scribbossman were at my direction and personally dictated by me. I have reviewed the chart and agree that the record accurately reflects my personal performance of the history, physical exam, medical decision making, and the department course for this patient. I have also personally directed, reviewed, and agree with the discharge instructions and disposition. Disposition/Present on Arrival - Present on Arrival Any Indicators Present on Arrival: No History of DVT/PE: No History of Uncontrolled Diabetes: No Urinary Catheter: No History of Decub. Ulcer: No History Surgical Site Infection Following: None - Disposition Have Diagnosis and Disposition been Completed?: Yes Diagnosis: Hepatic encephalopathy Disposition: HOSPITALIZED Disposition Time: 21:48 Patient Plan: Observation Patient Problems: Current Active Problems Problem Status Onset Hepatic encephalopathy Acute Condition: STABLE
[2017-11-20] MEDS: Sodium Chloride 0.9% 1,000 ML IV SCH (20:20)
[2017-11-20 20:34] LABS: HEMOGLOBIN 8.8 g/dL (14.0-18.0); MEAN CORPUSCULAR HEMOGLOBIN 31.1 pg (25.0-35.0); MEAN CORPUSCULAR HGB CONC 33.1 g/dl (31.0-37.0); MEAN PLATELET VOLUME 9.9 fl (7.0-11.0); RBC 2.83 10^6/uL (3.5-6.1); RED CELL DISTRIBUTION WIDTH 17.7 % (11.5-14.5); WHITE BLOOD COUNT 6.1 10^3/ul (4.5-11.0)
[2017-11-20 20:45] LABS: ALBUMIN 3.2 g/dL (3.0-4.8); CALCIUM 8.9 mg/dL (8.4-10.5)
[2017-11-20 20:49] LABS: INR 1.44 (0.93-1.08); PARTIAL THROMBOPLASTIN TIME 36.8 Seconds (25.1-36.5); PROTHROMBIN TIME 15.8 SECONDS (9.4-12.5)
[2017-11-20 20:56] LABS: TROPONIN I 0.02 ng/mL
[2017-11-20 21:08] LABS: ALB/GLOB RATIO 0.6 (1.1-1.8); CK-MB 3.6 ng/mL (0.0-3.6)
--- NOTE | 2017-11-20 21:23 | CT ---
EXAM: CT Head Without Intravenous Contrast CLINICAL HISTORY: 62 years old, male; Signs and symptoms; Altered mental status/memory loss; Age related cognitive decline; Additional info: AMS TECHNIQUE: Axial computed tomography images of the head/brain without intravenous contrast. All CT scans at this facility use one or more dose reduction techniques, viz.: automated exposure control; ma/kV adjustment per patient size (including targeted exams where dose is matched to indication; i.e. head); or iterative reconstruction technique. Coronal and sagittal reformatted images were created and reviewed. COMPARISON: CT - HEAD W/O CONTRAST 2017-09-02 06:06 FINDINGS: Brain: Mild atrophy. Vascular calcification. No intracranial hemorrhage. No mass. No edema visualized. Ventricles: No hydrocephalus. Bones: Skull is intact. Sinuses: No acute sinusitis. Mastoid air cells: No mastoid effusion. IMPRESSION: No CT evidence of acute intracranial abnormality.
--- NOTE | 2017-11-20 21:56 | CT ---
EXAM: CT Abdomen and Pelvis Without Intravenous Contrast CLINICAL HISTORY: 62 years old, male; Signs and symptoms; Bloating; Patient HX: Asdcites; Additional info: Abdominal pain TECHNIQUE: Axial computed tomography images of the abdomen and pelvis without intravenous contrast. All CT scans at this facility use one or more dose reduction techniques, viz.: automated exposure control; ma/kV adjustment per patient size (including targeted exams where dose is matched to indication; i.e. head); or iterative reconstruction technique. Coronal and sagittal reformatted images were created and reviewed. COMPARISON: CT - ABD PELVIS PO CONTRAST ONLY 2017-09-02 15:11 FINDINGS: Lower thorax: Moderate right pleural effusion. Coronary artery and valvular calcification. ABDOMEN: Liver: Shrunken liver with nodular contour and heterogeneous hepatic parenchyma. Gallbladder and bile ducts: No acute abnormality as visualized. Ultrasound can provide more sensitive evaluation of the biliary system as warranted. Pancreas: Atrophy. Spleen: Splenomegaly. Adrenals: No acute abnormality as visualized. Kidneys and ureters: No hydronephrosis. 3 mm nonobstructing calculus in the lower pole the left kidney. Stomach and bowel: Limited evaluation without enteric contrast. Small hiatal hernia/thickening of distal esophageal wall. The stomach is collapsed, limiting its evaluation. No small bowel traction. Retained fecal material in the colon. PELVIS: Bladder: No acute abnormality as visualized. Reproductive: No acute abnormality as visualized. ABDOMEN and PELVIS: Intraperitoneal space: Significant ascites. Ascites extends into right inguinal hernia. No free air. Bones: Scoliosis. Degenerative changes. Vasculature: Atherosclerosis. No abdominal aortic aneurysm. IMPRESSION: Findings consistent with cirrhosis. Significant ascites. Ascites extends into right inguinal hernia. Moderate right pleural effusion. Please see additional details/findings as above. Correlate clinically. Followup as warranted. Please note evaluation for underlying visceral lesions/abnormalities limited without intravenous contrast. Evaluation of bowel limited without enteric contrast.
--- NOTE | 2017-11-21 00:32 | CP.PCM.HP ---
<John Murray - Last Filed: 11/21/17 01:43> History of Present Illness - History of Present Illness History of Present Illness: Mr. Durant is a 62 year old male with past medical history of TRUJILLO, afib s/p cardioversion, HTN, GERD, CHF, and esophageal varices who presents with confusion and abdominal discomfort for a duration of 12 hours. Patient was brought in by his partner who reports that at 1200 on 11/20 patient reported that his "stomach hurt" and he was feeling tired, confused, dizzy and lightheaded. Patients partner reports that the patient then slept for several hours but due to his past medical history, he wanted to bring him to the hospital for further evaluation. Upon arrival, patient was reported to be alert and oriented to person and place only. On reevaluation once admitted, patient was noted to have mild abdominal discomfort and was alert and oriented to person , place and time. Patient endorses mild fatigue but denies fever, chills, headache, changes in vision, neck pain, neck stiffness, chest pain, palpitations , SOB, cough, N/V, diarrhea, constipation, hematemesis, hematochezia, melena, burning/pain with urination, rashes, easy bruising, prolonged bleeding times, or any numbness/tingling/weakness of any extremity. PMH: HTN, GERD, Non-alcoholic liver cirrhosis, Ascites, CHF, afib s/p cardioversion and esophageal varices Surgical History: Inguinal hernia repair Social History: Denies alcohol, drug used; Former smoker, quit 1.5 years ago Family History: Mother - DM, heart disease; Father - PR Allergies: Beef products, banana Home Medications: As per MAR PMD: Dr Bishop Manager Forms: Dr Angeles Present on Admission - Present on Admission Any Indicators Present on Admission: No Review of Systems - Review of Systems Review of Systems: As per HPI Past Patient History - Infectious Disease Hx of Infectious Diseases: None - Tetanus Immunizations Tetanus Immunization: Unknown - Past Social History Smoking Status: Former Smoker - CARDIAC Hx Cardiac Disorders: Yes Hx Congestive Heart Failure: Yes Hx Hypertension: Yes - PULMONARY Hx Respiratory Disorders: Yes Hx Pneumonia: Yes (09-02-17) - NEUROLOGICAL Hx Neurological Disorder: No - HEENT Hx HEENT Problems: No - RENAL Hx Renal Failure: Yes - ENDOCRINE/METABOLIC Hx Endocrine Disorders: No - HEMATOLOGICAL/ONCOLOGICAL Hx Blood Disorders: Yes Hx Cirrhosis: Yes (PARACENTESIS) - INTEGUMENTARY Hx Dermatological Problems: No - MUSCULOSKELETAL/RHEUMATOLOGICAL Hx Musculoskeletal Disorders: Yes Hx Falls: Yes Hx Unsteady Gait: Yes - GASTROINTESTINAL Hx Gastrointestinal Disorders: Yes Hx Gastroesophageal Reflux: Yes - GENITOURINARY/GYNECOLOGICAL Hx Genitourinary Disorders: No - PSYCHIATRIC Hx Psychophysiologic Disorder: No - SURGICAL HISTORY Hx Surgeries: Yes Hx Coronary Stent: Yes - ANESTHESIA Hx Anesthesia Reactions: No Hx Malignant Hyperthermia: No Meds Allergies/Adverse Reactions: Allergies Allergy/AdvReac Type Severity Reaction Status Date / Time Beef Containing Products Allergy Severe ANAPHYLAXIS Verified 11/20/17 19:51 beef derived (bovine) Allergy Severe ANAPHYLAXIS Verified 11/20/17 19:51 banana Allergy Intermediate ITCHING Verified 11/20/17 19:51 Physical Exam - Constitutional Appears: No Acute Distress, Chronically Ill - Head Exam Head Exam: ATRAUMATIC, NORMOCEPHALIC - Eye Exam Eye Exam: EOMI, Normal appearance, PERRL Pupil Exam: NORMAL ACCOMODATION, PERRL - ENT Exam ENT Exam: Mucous Membranes Dry, Normal External Ear Exam. absent: Mucous Membranes Moist, Normal Exam - Neck Exam Neck exam: Positive for: Full Rom, Normal Inspection. Negative for: Lymphadenopathy, Meningismus - Respiratory Exam Respiratory Exam: Decreased Breath Sounds (Right lower lung field), NORMAL BREATHING PATTERN. absent: Accessory Muscle Use, Chest Wall Tenderness, Clear to Auscultation Bilateral, Prolonged Expiratory Phase, Rales, Rhonchi, Wheezes, Respiratory Distress, Stridor - Cardiovascular Exam Cardiovascular Exam: REGULAR RHYTHM, RRR, +S1, +S2. absent: Bradycardia, Tachycardia, Diastolic murmur, Gallop, Irregular Rhythm, JVD, Rubs, Systolic Murmur - GI/Abdominal Exam GI & Abdominal Exam: Distended, Hernia (Right inguinal), Normal Bowel Sounds, Organomegaly (Liver edge felt five finger breadths below right costal margin in midclavicular line), Soft. absent: Bruit, Diminished Bowel Sounds, Firm, Guarding, Hyperactive Bowel Sounds, Hypoactive Bowel Sounds, Mass, Pulsatile Mass, Rebound, Rigid, Tenderness (Mild TTP ) - Rectal Exam Rectal Exam: Deferred - Exam Exam: NORMAL INSPECTION. absent: Circumcision, Scrotal Swelling, Testicular Tenderness, Bladder Distension - Extremities Exam Extremities exam: Positive for: full ROM, normal capillary refill, normal inspection, pedal pulses present. Negative for: calf tenderness, joint swelling - Back Exam Back exam: FULL ROM, NORMAL INSPECTION. absent: CVA tenderness (L), CVA tenderness (R), paraspinal tenderness, vertebral tenderness - Neurological Exam Neurological exam: Alert, CN II-XII Intact, Oriented x3 - Psychiatric Exam Psychiatric exam: Normal Affect, Normal Mood - Skin Skin Exam: Dry, Intact, Normal Color, Warm Results - Vital Signs Recent Vital Signs: Last Vital Signs Temp 97.8 F 11/20/17 20:12 Pulse 68 11/20/17 22:00 Resp 18 11/20/17 22:00 BP 105/71 11/20/17 22:00 Pulse Ox 100 11/20/17 22:00 - Labs Result Diagrams: 11/20/17 20:10 11/20/17 20:10 - EKG Data EKG Interpreted by: ER Physician EKG shows normal: Sinus rhythm (Normal), Intervals (WNL) Rate: Normal (62bpm) Assessment & Plan - Assessment and Plan (Free Text) Assessment: 62 year old male with past medical history of TRUJILLO, afib s/p cardioversion, HTN , GERD, CHF, and esophageal varices who presents with confusion and abdominal discomfort for a duration of 12 hours. Patient found to have normal CT of his head, ascites, moderate right pleural effusion and shrunken nodular appearing liver on CT abdomen/pelvis. He was also found to have elevated ammonia level and an acute kidney injury with his creatinine level elevated to 1.9, which is above his baseline. Plan: 1. Hepatic Encephalopathy -CT head negative for any acute processes -Ammonia level at 68 -Given one dose of lactulose in ED -Ammonia level in AM ordered -Fall precautions -Neuro checks Q4H for 24 hours -GI Consulted 2. Non-Alcoholic Liver Cirrhosis with associated Esophageal Varices -CT Abdomen/Pelvis showing ascites and shrunken, nodular appearance of liver -Continue home Nadolol 10mg PO QD, Neutra-Phos supplementation and Zofran PRN 3. Acute Kidney Injury -Creatinine at 1.9 -NS at 100mls/hr -CMP ordered in AM 4. Moderate Right Sided Pleural Effusion -Seen in both CT Abdomen/Pelvis and Chest X-Ray -Continue to monitor respiratory status 5. Atrial Fibrillation s/p Cardioversion -EKG showing patient in NSR at 62bpm 6. CAD s/p stent placement 09/06 -Continue home Aspirin 81mg, Spironolactone 100mg PO QD and Midodrine 10mg PO TID -Cardio consulted for need for plavix 7. Chronic Anemia -H/H found to be 8.8/26.6 -CBC in AM ordered -Iron studies, Vitamin B12, Vitamin D and Folate levels pending GI Prophylaxis: Protonix DVT Prophylaxis: SCD's Patient seen and evaluated with attending, Dr. Villeda. - Date & Time Date: 11/20/17 Time: 22:30 Decision To Admit - Pt Status Changed To: Hospital Disposition Of: Observation - . Bed Request Type: Med/Surg <Ilda Villeda - Last Filed: 11/21/17 01:48> Results - Vital Signs Recent Vital Signs: Last Vital Signs Temp 97.8 F 11/20/17 20:12 Pulse 68 11/20/17 22:00 Resp 20 11/21/17 00:14 BP 105/71 11/20/17 22:00 Pulse Ox 100 11/20/17 22:00 - Labs Result Diagrams: 11/20/17 20:10 11/20/17 20:10 Attending/Attestation - Attestation I have personally seen and examined this patient.: Yes I have fully participated in the care of the patient.: Yes I have reviewed all pertinent clinical information: Yes Notes (Text): 11/21/17 01:47 Agreewith documentation and orders placed
[2017-11-21] MEDS ORDERED: Morphine 4 mg/ml ISec IVP PRN (02:48)
[2017-11-21] MEDS: Pantoprazole 40 mg EC Tab PO SCH (05:42)
[2017-11-21 07:11] LABS: BASO # 0.03 K/mm3 (0.0-2.0); BASO % 0.6 % (0.0-3.0); EOS # 0.2 (0.0-0.7); EOS % 3.4 % (1.5-5.0); GRAN # 2.94 (1.4-6.5); GRAN % 55.8 % (50.0-68.0); HEMOGLOBIN 8.2 g/dL (14.0-18.0); LYMPH # 1.3 (1.2-3.4); LYMPH % 23.7 % (22.0-35.0); MEAN CELL VOLUME 93.4 fl (80.0-105.0); MEAN CORPUSCULAR HGB CONC 32.2 g/dl (31.0-37.0); MEAN PLATELET VOLUME 9.3 fl (7.0-11.0); MONO # 0.9 (0.1-0.6); MONO % 16.5 % (1.0-6.0); RBC 2.73 10^6/uL (3.5-6.1); RED CELL DISTRIBUTION WIDTH 17.6 % (11.5-14.5); WHITE BLOOD COUNT 5.3 10^3/ul (4.5-11.0)
[2017-11-21 07:38] LABS: ALB/GLOB RATIO 0.6 (1.1-1.8); CALCIUM 8.6 mg/dL (8.4-10.5)
[2017-11-21 08:35] LABS: MAGNESIUM 1.8 mg/dL (1.7-2.2)
--- NOTE | 2017-11-21 09:29 | CON ---
DATE: 11/21/2017 HISTORY OF PRESENT ILLNESS: I examined Mr. Lane this morning. He is a 62-year-old white male known to the consultants with past medical history of decompensated cirrhosis with portal hypertension, esophageal varices, several episodes of upper GI bleeding, hypertension, acid reflux, atrial fibrillation with also coronary artery disease. The patient was brought in by ambulance who is admitted for evaluation of contusion and also noting some abdominal discomfort. There is no fever, chills, nausea, vomiting, diarrhea, rectal bleeding, hematemesis, etc. Note that the patient has a history of decompensated cirrhosis not due to hepatitis C with significant hepatic steatosis. His ascites has been refractory and loculated; therefore, has required multiple paracentesis performed by Interventional Radiology. PHYSICAL EXAMINATION: VITAL SIGNS: I reviewed this patient's vital signs. HEENT: Noncontributory. LUNGS: Decreased breath sounds, basilar with crackles noted on the right side to about one-third of the apex. HEART: Irregular rhythm. ABDOMEN: Distended, shifting dullness. The tenderness is noted to periumbilical area. LABORATORY DATA: Indicate platelet count of 153 with H and H of 8.8/26, white count 6.1. His INR is 1.44. Review of laboratory data indicate BUN and creatinine ratio of 25/1.9 with sugar of 173. His bilirubin is 2.5. AST and ALT ratio 75/44 with an alkaline phosphatase of 298, ammonia 68. Review of the Radiology from yesterday includes a head CT, which was significant for no evidence of an acute intracranial abnormality. Note that the abdominal CT scan was significant for a moderate right pleural effusion with shocking liver nodular contour in the gallbladder, pancreas. The gallbladder was negative. Pancreas showed atrophied spleen was enlarged, moderate amount of ascites found extending to the right inguinal hernia. ASSESSMENT AND PLAN: This is a 62-year-old white male known to guidance consultant with non-hepatitis related decompensated cirrhosis and ascites with history of recurrent hepatic encephalopathy. The patient was brought in with change in mental status. Since he is having some degree of abdominal pain, may consider a paresthesia by Dr. Franko Crespo possibly tomorrow for symptom palliation. Medications for ascites include Aldactone, midodrine, but unfortunately these do not work too well since his ascites is for the most part refractory to medications. He is on nadolol 10 mg daily. The patient is also currently on ondansetron 4 every 8 hours plus ascorbic acid, vitamin D and these are adequate. We will now consider adding rifaximin for hepatic encephalopathy, which he should probably take on a prophylactic basis. Edgar Fuchs DO, PhD [facility]
--- NOTE | 2017-11-21 10:40 | RAD ---
HISTORY: abdominal pain COMPARISON: Comparison chest 10/06/2017. Comparison also made with scan abdomen pelvis 11/20/2017 which imaged both lung bases. FINDINGS: LUNGS: Re- demonstrated is right-sided effusion and mild right basilar atelectasis. The interstitial markings are slightly increased and coarsened. . PLEURA: As above. No apparent pneumothorax. CARDIOVASCULAR: Normal. OSSEOUS STRUCTURES: No significant abnormalities. VISUALIZED UPPER ABDOMEN: Normal. OTHER FINDINGS: None. IMPRESSION: Moderate-sized right-sided effusion minor right basilar atelectasis. . Coarsened interstitial markings.
[2017-11-21] MEDS: Potassium & Sodium Phosphate PO SCH ×2 (10:57→19:11)
[2017-11-21] MEDS: Cholecalciferol 1,000 INTLU TAB PO SCH (10:58)
[2017-11-21 17:07] LABS: FERRITIN 50.7 ng/mL
[2017-11-21 17:38] LABS: FOLATE 9.6 ng/mL
[2017-11-21] MEDS: Morphine 2 mg/ml ISec IVP PRN (23:04)
[2017-11-22] MEDS: Pantoprazole 40 mg EC Tab PO SCH (05:38)
[2017-11-22 07:20] LABS: MEAN CELL VOLUME 94.2 fl (80.0-105.0); MEAN CORPUSCULAR HEMOGLOBIN 30.5 pg (25.0-35.0); MEAN CORPUSCULAR HGB CONC 32.4 g/dl (31.0-37.0); MEAN PLATELET VOLUME 9.4 fl (7.0-11.0); RBC 2.59 10^6/uL (3.5-6.1); RED CELL DISTRIBUTION WIDTH 17.6 % (11.5-14.5); WHITE BLOOD COUNT 5.1 10^3/ul (4.5-11.0)
[2017-11-22 07:31] LABS: ALB/GLOB RATIO 0.6 (1.1-1.8); ALBUMIN 2.6 g/dL (3.0-4.8); CALCIUM 8.2 mg/dL (8.4-10.5); MAGNESIUM 1.8 mg/dL (1.7-2.2)
[2017-11-22 07:58] LABS: HEMOGLOBIN 7.9 g/dL (14.0-18.0)
[2017-11-22] MEDS: Sodium Chloride 0.9% 1,000 ML IV SCH (08:13)
--- NOTE | 2017-11-22 08:47 | PN ---
DATE: 11/22/2017 SUBJECTIVE: I saw Mr. Lane this morning. He is a 62-year-old white male, known to the consultants with past medical history of non-hepatitis related cirrhosis, hepatic steatosis, portal hypertension, esophageal varices, multiple GI bleeds, coronary artery disease, and atrial fibrillation. The patient was admitted due to change of mental status as well as abdominal discomfort. At the bedside this morning, the patient denies any nausea or vomiting. However, did indicate tightness of his abdomen as well as periumbilical discomfort, also discomfort in the lower quadrants. He feels his ascites needs a tap. PHYSICAL EXAMINATION VITAL SIGNS: I reviewed this patient's vital signs. HEENT: Noncontributory. LUNGS: Crackles, basilar on the right side to about one-third of the apex. Decreased breath sounds on the left side, basilar. HEART: Irregular rhythm. ABDOMEN: Protuberant. Tender periumbilical, both lower quadrants. Irregular bowel sounds. LABORATORY DATA: Labs pending for this morning. ASSESSMENT: This is a 62-year-old white male with a known history of cirrhosis, recurrent episode of hepatic encephalopathy, ascites refractory to diuretic therapy with change in mental status as well as abdominal pain. I have discussed the case with Dr. Fay Das yesterday. This patient needs a paracentesis by Dr. Franko Crespo for the recent symptoms. The patient was placed on rifaximin 550 b.i.d. yesterday with a substantial improvement in his mental status. He is advised to continue this until further knowledge. For portal hypertension prophylaxis, the patient is on nadolol. He is on a homeopathic dose of spironolactone. Doses of Lasix and spironolactone were tried in the past in order to alleviate also alleviate his ascites; however, discussion with Dr. Das yesterday, he tends to be refractory today. Edgar Fuchs DO
[2017-11-22] MEDS: Cholecalciferol 1,000 INTLU TAB PO SCH (11:09)
[2017-11-22] MEDS: Potassium & Sodium Phosphate PO SCH ×2 (11:10→21:12)
[2017-11-22] MEDS: Morphine 2 mg/ml ISec IVP PRN ×2 (11:26→21:12)
--- NOTE | 2017-11-22 12:55 | CP.PCM.PN ---
<Ayo Siddiqui - Last Filed: 11/22/17 12:52> Subjective - Date & Time of Evaluation Date of Evaluation: 11/22/17 Time of Evaluation: 12:52 - Subjective Subjective: Medicine Progress Note Pt seen and examined at bedside. No acute overnight events. Pt is alert and oriented to person and place. Pt still somewhat disoriented. Pt states that abdomen feels distended and complains of pain. Pt denies CP, SOB, nausea, vomiting, diarrhea, fever, chills, SALDIVAR, or dizziness. Objective - Vital Signs/Intake and Output Vital Signs (last 24 hours): Temp Pulse Resp BP Pulse Ox 98.9 F 63 20 96/45 L 98 11/22/17 07:00 11/22/17 07:00 11/22/17 07:00 11/22/17 07:00 11/22/17 07:00 Intake and Output: 11/22/17 11/22/17 06:59 18:59 Intake Total 300 Balance 300 - Medications Medications: Current Medications Ascorbic Acid (Vitamin C 500 Mg Tab) 1,000 mg PO BID [facility] Last Admin: 11/22/17 11:09 Dose: 1,000 mg Aspirin (Ecotrin) 81 mg PO DAILY [facility] Last Admin: 11/22/17 11:10 Dose: 81 mg Cholecalciferol (Vitamin D) 2,000 intlu PO DAILY [facility] Last Admin: 11/22/17 11:09 Dose: 2,000 intlu Cyanocobalamin (Vitamin B12 1000 Mcg Tab) 1,000 mcg PO DAILY [facility] Last Admin: 11/22/17 11:11 Dose: 1,000 mcg Sodium Chloride (Sodium Chloride 0.9%) 1,000 mls @ 100 mls/hr IV .Q10H [facility] Last Admin: 11/22/17 08:13 Dose: 100 mls/hr Lactulose (Enulose) 20 gm PO BID [facility] Last Admin: 11/22/17 11:11 Dose: 20 gm Meclizine HCl (Antivert) 25 mg PO BID PRN PRN Reason: Dizziness Last Admin: 11/21/17 05:42 Dose: 25 mg Midodrine (Proamatine) 10 mg PO TID [facility] Last Admin: 11/22/17 11:10 Dose: 10 mg Morphine Sulfate (Morphine) 2 mg IVP Q4H PRN PRN Reason: Pain, moderate (4-7) Last Admin: 11/22/17 11:26 Dose: 2 mg Nadolol (Corgard) 10 mg PO DAILY [facility] Last Admin: 11/22/17 11:10 Dose: 10 mg Ondansetron HCl (Zofran Tab) 4 mg PO Q8 PRN PRN Reason: Nausea/Vomiting Pantoprazole Sodium (Protonix Ec Tab) 40 mg PO 0600 [facility] Last Admin: 11/22/17 05:38 Dose: 40 mg Potassium Phos/Sodium Phos (Neutra-Phos) 2 pkt PO BID [facility] Last Admin: 11/22/17 11:10 Dose: 2 pkt Rifaximin (Xifaxan) 550 mg PO BID [facility] PRN Reason: Protocol Stop: 11/24/17 23:59 Last Admin: 11/22/17 11:09 Dose: 550 mg Spironolactone (Aldactone) 100 mg PO DAILY [facility] Last Admin: 11/22/17 11:10 Dose: 100 mg - Labs Labs: 11/22/17 06:45 11/22/17 06:45 PT 15.8 SECONDS (9.4-12.5) H 11/20/17 20:10 INR 1.44 (0.93-1.08) H 11/20/17 20:10 APTT 36.8 Seconds (25.1-36.5) H 11/20/17 20:10 - Constitutional Appears: No Acute Distress - Head Exam Head Exam: NORMAL INSPECTION - Eye Exam Eye Exam: Normal appearance - ENT Exam ENT Exam: Normal Exam - Neck Exam Neck Exam: Normal Inspection - Respiratory Exam Respiratory Exam: Clear to Ausculation Bilateral. absent: Rales, Rhonchi, Wheezes - Cardiovascular Exam Cardiovascular Exam: RRR, +S1, +S2. absent: Gallop, Rubs, Murmur - GI/Abdominal Exam GI & Abdominal Exam: Distended, Firm, Soft, Tenderness (diffuse). absent: Guarding, Rebound - Extremities Exam Extremities Exam: Normal Inspection - Neurological Exam Neurological Exam: Alert, Awake. absent: Oriented x3 (oriented to person and place) - Psychiatric Exam Psychiatric exam: Flat Affect - Skin Skin Exam: Dry, Intact, Normal Color, Warm Assessment and Plan - Assessment and Plan (Free Text) Assessment: 62 year old male with past medical history of TRUJILLO, afib s/p cardioversion, HTN , GERD, CHF, and esophageal varices who presents with confusion and abdominal discomfort for a duration of 12 hours. Pt admitted for evaluation and treatment for hepatic encephalopathy 2/2 elevated ammonia due to h/o of non-alcoholic cirrhosis. Plan: 1. Hepatic Encephalopathy - CT head negative for any acute processes - Ammonia level elevated on admission, WNL now - Cont Lactulose and Rifaximin - Fall precautions - Neuro checks Q4H for 24 hours - GI Consulted 2. Non-Alcoholic Liver Cirrhosis with associated Esophageal Varices - CT Abdomen/Pelvis showing ascites and shrunken, nodular appearance of liver - Continue home Nadolol 10mg PO QD, Neutra-Phos supplementation and Zofran PRN - IR consulted for paracentesis F/u ascitic fluid analysis 3. Acute Kidney Injury - Cr 1.5, improved - NS at 100mls/hr - Cont to monitor 4. Moderate Right Sided Pleural Effusion - Seen in both CT Abdomen/Pelvis and Chest X-Ray - No dyspnea at this time, cont to monitor 5. Atrial Fibrillation s/p Cardioversion - EKG showing patient in NSR at 62bpm 6. CAD s/p stent placement 09/06 - Continue home Aspirin 81mg, Spironolactone 100mg PO QD and Midodrine 10mg PO TID - Cardio consulted for need for plavix 7. Chronic Anemia - H/H found to be 8.8/26.6 - CBC in AM ordered - Iron studies, Vitamin B12, Vitamin D and Folate levels pending GI/DVT PPx - Protonix - SCDs Pt seen and discussed in detail with Dr. Das. Oliver Siddiqui, PGY1 <Fay Das - Last Filed: 11/22/17 16:24> Objective - Vital Signs/Intake and Output Vital Signs (last 24 hours): Temp Pulse Resp BP Pulse Ox 97.7 F 65 20 105/61 96 11/22/17 15:52 11/22/17 15:52 11/22/17 15:52 11/22/17 15:52 11/22/17 15:52 Intake and Output: 11/22/17 11/22/17 06:59 18:59 Intake Total 300 Balance 300 - Medications Medications: Current Medications Ascorbic Acid (Vitamin C 500 Mg Tab) 1,000 mg PO BID [facility] Last Admin: 11/22/17 11:09 Dose: 1,000 mg Aspirin (Ecotrin) 81 mg PO DAILY [facility] Last Admin: 11/22/17 11:10 Dose: 81 mg Cholecalciferol (Vitamin D) 2,000 intlu PO DAILY [facility] Last Admin: 11/22/17 11:09 Dose: 2,000 intlu Cyanocobalamin (Vitamin B12 1000 Mcg Tab) 1,000 mcg PO DAILY [facility] Last Admin: 11/22/17 11:11 Dose: 1,000 mcg Sodium Chloride (Sodium Chloride 0.9%) 1,000 mls @ 100 mls/hr IV .Q10H [facility] Last Admin: 11/22/17 08:13 Dose: 100 mls/hr Lactulose (Enulose) 20 gm PO BID [facility] Last Admin: 11/22/17 11:11 Dose: 20 gm Meclizine HCl (Antivert) 25 mg PO BID PRN PRN Reason: Dizziness Last Admin: 11/21/17 05:42 Dose: 25 mg Midodrine (Proamatine) 10 mg PO TID [facility] Last Admin: 11/22/17 14:52 Dose: 10 mg Morphine Sulfate (Morphine) 2 mg IVP Q4H PRN PRN Reason: Pain, moderate (4-7) Last Admin: 11/22/17 11:26 Dose: 2 mg Nadolol (Corgard) 10 mg PO DAILY [facility] Last Admin: 11/22/17 11:10 Dose: 10 mg Ondansetron HCl (Zofran Tab) 4 mg PO Q8 PRN PRN Reason: Nausea/Vomiting Pantoprazole Sodium (Protonix Ec Tab) 40 mg PO 0600 [facility] Last Admin: 11/22/17 05:38 Dose: 40 mg Potassium Phos/Sodium Phos (Neutra-Phos) 2 pkt PO BID [facility] Last Admin: 11/22/17 11:10 Dose: 2 pkt Rifaximin (Xifaxan) 550 mg PO BID [facility] PRN Reason: Protocol Stop: 11/24/17 23:59 Last Admin: 11/22/17 11:09 Dose: 550 mg Spironolactone (Aldactone) 100 mg PO DAILY [facility] Last Admin: 11/22/17 11:10 Dose: 100 mg - Labs Labs: 11/22/17 06:45 11/22/17 06:45 PT 15.8 SECONDS (9.4-12.5) H 11/20/17 20:10 INR 1.44 (0.93-1.08) H 11/20/17 20:10 APTT 36.8 Seconds (25.1-36.5) H 11/20/17 20:10 Attending/Attestation - Attestation I have personally seen and examined this patient.: Yes I have fully participated in the care of the patient.: Yes I have reviewed all pertinent clinical information, including history, physical exam and plan: Yes Notes (Text): I have seen and examined the patient at bedside. Agree with the above note with the following additions/ exceptions: Briefly this is 62 year old male with history of cryptogenic cirrhosis, former smoker, former alcohol abuser, HTN, CHF (EF~45-50%), afib recently cardioverted to normal sinus rhythm, CAD s/p bare metal stent on aspirin who was admitted with GI bleed secondary to esophageal varices and portal gastropathy. He is status post EGD and banding x 9. Currently feeling well and denies any bleeding. He is able to eat without any problem and has a good appetite. Continue Protonix. Continue nadolol. Repeat Paracentesis was done followed by albumin infusion. Ascitic fluid culture has been negative. Continue rifaxamin. Patient refuses to take lactulose due to diarrhea. He had 2 BM today. US abdomen is normal. GI follow up appreciated and they recommended outpatient endoscopy and colonoscopy. Creatinine is stable. Will continue low dose lasix and aldactone. Add midodrine as BP has been low. Patient feels better today. PT re eval was requested who again recommended NONA. Advised patient to follow up with [facility] Hepatology / transplant clinic. Upon discharge patient will follow up with Dr. Lew. Dr Fay Das
--- NOTE | 2017-11-22 17:43 | CARD ---
APPROVED REPORT EKG Measurement Heart [id number] <Conclusion> Normal sinus rhythm Low voltage QRS Borderline ECG
[2017-11-23] MEDS: Pantoprazole 40 mg EC Tab PO SCH (05:43)
[2017-11-23 07:02] LABS: MEAN CELL VOLUME 94.7 fl (80.0-105.0); MEAN CORPUSCULAR HGB CONC 31.7 g/dl (31.0-37.0); MEAN PLATELET VOLUME 10.2 fl (7.0-11.0); RBC 2.63 10^6/uL (3.5-6.1); RED CELL DISTRIBUTION WIDTH 17.7 % (11.5-14.5); WHITE BLOOD COUNT 4.9 10^3/ul (4.5-11.0)
[2017-11-23 07:28] LABS: HEMOGLOBIN 7.9 g/dL (14.0-18.0)
[2017-11-23 07:30] LABS: ALB/GLOB RATIO 0.6 (1.1-1.8); ALBUMIN 2.5 g/dL (3.0-4.8); ALT/SGPT 36 U/L (7-56); AST/SGOT 52 U/L (17-59); BLOOD UREA NITROGEN 19 mg/dL (7-21); CALCIUM 8.3 mg/dL (8.4-10.5); GFR AFRICAN-AMERICAN > 60; GFR NON-AFRICAN AMERICAN 56
[2017-11-23] MEDS: Cholecalciferol 1,000 INTLU TAB PO SCH (09:48)
[2017-11-23] MEDS: Potassium & Sodium Phosphate PO SCH ×2 (09:49→19:04)
--- NOTE | 2017-11-23 12:14 | CP.PCM.PN ---
<Ayo Siddiqui - Last Filed: 11/23/17 12:08> Subjective - Date & Time of Evaluation Date of Evaluation: 11/23/17 Time of Evaluation: 12:08 - Subjective Subjective: Medicine Progress Note Pt seen and examined at bedside. No acute overnight events. Pt states that abdominal pain and distension is still present. Pt denied CP, SOB, nausea, vomiting, diarrhea, fever, chills, SALDIVAR, or fatigue. Objective - Vital Signs/Intake and Output Vital Signs (last 24 hours): Temp Pulse Resp BP Pulse Ox 98.4 F 68 20 113/67 98 11/23/17 07:30 11/23/17 09:47 11/23/17 07:30 11/23/17 09:47 11/23/17 07:30 Intake and Output: 11/23/17 11/23/17 06:59 18:59 Intake Total 840 Balance 840 - Medications Medications: Current Medications Ascorbic Acid (Vitamin C 500 Mg Tab) 1,000 mg PO BID [facility] Last Admin: 11/23/17 09:48 Dose: 1,000 mg Aspirin (Ecotrin) 81 mg PO DAILY [facility] Last Admin: 11/23/17 09:48 Dose: 81 mg Cholecalciferol (Vitamin D) 2,000 intlu PO DAILY [facility] Last Admin: 11/23/17 09:48 Dose: 2,000 intlu Cyanocobalamin (Vitamin B12 1000 Mcg Tab) 1,000 mcg PO DAILY [facility] Last Admin: 11/23/17 09:49 Dose: 1,000 mcg Sodium Chloride (Sodium Chloride 0.9%) 1,000 mls @ 100 mls/hr IV .Q10H [facility] Last Admin: 11/22/17 08:13 Dose: 100 mls/hr Lactulose (Enulose) 20 gm PO BID [facility] Last Admin: 11/23/17 09:49 Dose: 20 gm Meclizine HCl (Antivert) 25 mg PO BID PRN PRN Reason: Dizziness Last Admin: 11/21/17 05:42 Dose: 25 mg Midodrine (Proamatine) 10 mg PO TID [facility] Last Admin: 11/23/17 09:48 Dose: 10 mg Morphine Sulfate (Morphine) 2 mg IVP Q4H PRN PRN Reason: Pain, moderate (4-7) Last Admin: 11/22/17 21:12 Dose: 2 mg Nadolol (Corgard) 10 mg PO DAILY [facility] Last Admin: 11/23/17 09:47 Dose: 10 mg Ondansetron HCl (Zofran Tab) 4 mg PO Q8 PRN PRN Reason: Nausea/Vomiting Pantoprazole Sodium (Protonix Ec Tab) 40 mg PO 0600 [facility] Last Admin: 11/23/17 05:43 Dose: 40 mg Potassium Phos/Sodium Phos (Neutra-Phos) 2 pkt PO BID [facility] Last Admin: 11/23/17 09:49 Dose: 2 pkt Rifaximin (Xifaxan) 550 mg PO BID [facility] PRN Reason: Protocol Stop: 11/24/17 23:59 Last Admin: 11/23/17 09:48 Dose: 550 mg Spironolactone (Aldactone) 100 mg PO DAILY [facility] Last Admin: 11/23/17 09:48 Dose: 100 mg - Labs Labs: 11/23/17 06:00 11/23/17 06:00 PT 15.8 SECONDS (9.4-12.5) H 11/20/17 20:10 INR 1.44 (0.93-1.08) H 11/20/17 20:10 APTT 36.8 Seconds (25.1-36.5) H 11/20/17 20:10 - Constitutional Appears: No Acute Distress - Head Exam Head Exam: NORMAL INSPECTION - Eye Exam Eye Exam: Normal appearance - ENT Exam ENT Exam: Normal Exam - Neck Exam Neck Exam: Normal Inspection - Respiratory Exam Respiratory Exam: Clear to Ausculation Bilateral. absent: Rales, Rhonchi, Wheezes - Cardiovascular Exam Cardiovascular Exam: RRR, +S1, +S2. absent: Gallop, Rubs, Murmur - GI/Abdominal Exam GI & Abdominal Exam: Distended, Soft, Tenderness. absent: Guarding, Mass, Rebound - Extremities Exam Extremities Exam: Normal Inspection - Neurological Exam Neurological Exam: Alert, Awake. absent: Oriented x3 (oriented to person and place) - Psychiatric Exam Psychiatric exam: Normal Affect, Normal Mood - Skin Skin Exam: Dry, Intact, Normal Color, Warm Assessment and Plan - Assessment and Plan (Free Text) Assessment: 62 year old male with past medical history of TRUJILLO, afib s/p cardioversion, HTN , GERD, CHF, and esophageal varices who presents with confusion and abdominal discomfort for a duration of 12 hours. Pt admitted for evaluation and treatment for hepatic encephalopathy 2/2 elevated ammonia due to h/o of non-alcoholic cirrhosis. Plan: 1. Hepatic Encephalopathy - CT head negative for any acute processes - Ammonia level elevated on admission, WNL now - Cont Lactulose and Rifaximin - Fall precautions - GI Consulted 2. Non-Alcoholic Liver Cirrhosis with associated Esophageal Varices - CT Abdomen/Pelvis showing ascites and shrunken, nodular appearance of liver - Continue home Nadolol 10mg PO QD, Neutra-Phos supplementation and Zofran PRN - IR consulted for paracentesis F/u ascitic fluid analysis 3. Acute Kidney Injury, resolved - Cr 1.3, improved - NS at 100mls/hr - Cont to monitor 4. Moderate Right Sided Pleural Effusion - Seen in both CT Abdomen/Pelvis and Chest X-Ray - No dyspnea at this time, cont to monitor 5. Atrial Fibrillation s/p Cardioversion - Cont to monitor 6. CAD s/p stent placement 09/06 - Continue home Aspirin 81mg, Spironolactone 100mg PO QD and Midodrine 10mg PO TID 7. Chronic Anemia - H/H found to be 8.8/26.6 - CBC in AM ordered - Iron studies, Vitamin B12, Vitamin D and Folate WNL GI/DVT PPx - Protonix - SCDs Pt seen and discussed in detail with Dr. Dailey. Oliver Siddiqui, PGY1 <Richa Dailey - Last Filed: 11/23/17 18:18> Objective - Vital Signs/Intake and Output Vital Signs (last 24 hours): Temp Pulse Resp BP Pulse Ox 97 F L 64 20 110/64 96 11/23/17 16:37 11/23/17 16:37 11/23/17 16:37 11/23/17 16:37 11/23/17 16:37 Intake and Output: 11/23/17 11/23/17 06:59 18:59 Intake Total 840 Balance 840 - Medications Medications: Current Medications Ascorbic Acid (Vitamin C 500 Mg Tab) 1,000 mg PO BID [facility] Last Admin: 11/23/17 09:48 Dose: 1,000 mg Aspirin (Ecotrin) 81 mg PO DAILY [facility] Last Admin: 11/23/17 09:48 Dose: 81 mg Cholecalciferol (Vitamin D) 2,000 intlu PO DAILY [facility] Last Admin: 11/23/17 09:48 Dose: 2,000 intlu Cyanocobalamin (Vitamin B12 1000 Mcg Tab) 1,000 mcg PO DAILY [facility] Last Admin: 11/23/17 09:49 Dose: 1,000 mcg Sodium Chloride (Sodium Chloride 0.9%) 1,000 mls @ 100 mls/hr IV .Q10H [facility] Last Admin: 11/22/17 08:13 Dose: 100 mls/hr Lactulose (Enulose) 20 gm PO BID [facility] Last Admin: 11/23/17 09:49 Dose: 20 gm Meclizine HCl (Antivert) 25 mg PO BID PRN PRN Reason: Dizziness Last Admin: 11/21/17 05:42 Dose: 25 mg Midodrine (Proamatine) 10 mg PO TID [facility] Last Admin: 11/23/17 13:12 Dose: 10 mg Morphine Sulfate (Morphine) 2 mg IVP Q4H PRN PRN Reason: Pain, moderate (4-7) Last Admin: 11/22/17 21:12 Dose: 2 mg Nadolol (Corgard) 10 mg PO DAILY [facility] Last Admin: 11/23/17 09:47 Dose: 10 mg Ondansetron HCl (Zofran Tab) 4 mg PO Q8 PRN PRN Reason: Nausea/Vomiting Pantoprazole Sodium (Protonix Ec Tab) 40 mg PO 0600 [facility] Last Admin: 11/23/17 05:43 Dose: 40 mg Potassium Phos/Sodium Phos (Neutra-Phos) 2 pkt PO BID [facility] Last Admin: 11/23/17 09:49 Dose: 2 pkt Rifaximin (Xifaxan) 550 mg PO BID [facility] PRN Reason: Protocol Stop: 11/24/17 23:59 Last Admin: 11/23/17 09:48 Dose: 550 mg Spironolactone (Aldactone) 100 mg PO DAILY [facility] Last Admin: 11/23/17 09:48 Dose: 100 mg - Labs Labs: 11/23/17 06:00 11/23/17 06:00 PT 15.8 SECONDS (9.4-12.5) H 11/20/17 20:10 INR 1.44 (0.93-1.08) H 11/20/17 20:10 APTT 36.8 Seconds (25.1-36.5) H 11/20/17 20:10 Attending/Attestation - Attestation I have personally seen and examined this patient.: Yes I have fully participated in the care of the patient.: Yes I have reviewed all pertinent clinical information, including history, physical exam and plan: Yes Notes (Text): 11/23/17 18:16 Patient was seen and examined with medical administrative technician. Agreed with assessment and plan. 62 year old male with past medical history of TRUJILLO, afib s/p cardioversion, HTN , GERD, CHF, and esophageal varices who presents with confusion and abdominal discomfort, ammonia level was high, now back to normal, patient is awake but still has intermittent confusion, may have underlying cognitive dysfunction. Patient is afebrile, we will follow up ascitic fluid analysis, clinically less likely SBP. Management plan was discussed in detail. Need reinforcement.
[2017-11-23] MEDS: Sodium Chloride 0.9% 1,000 ML IV SCH (19:05)
[2017-11-23] MEDS: Morphine 2 mg/ml ISec IVP PRN (22:24)
[2017-11-24 06:11] LABS: HEMOGLOBIN 8.2 g/dL (14.0-18.0); MEAN CELL VOLUME 95.1 fl (80.0-105.0); MEAN CORPUSCULAR HEMOGLOBIN 30.6 pg (25.0-35.0); MEAN CORPUSCULAR HGB CONC 32.2 g/dl (31.0-37.0); MEAN PLATELET VOLUME 9.9 fl (7.0-11.0); RBC 2.68 10^6/uL (3.5-6.1); RED CELL DISTRIBUTION WIDTH 17.9 % (11.5-14.5); WHITE BLOOD COUNT 5.4 10^3/ul (4.5-11.0)
[2017-11-24 06:21] LABS: ALBUMIN 2.4 g/dL (3.0-4.8); ALT/SGPT 36 U/L (7-56); AST/SGOT 45 U/L (17-59); BLOOD UREA NITROGEN 16 mg/dL (7-21); CALCIUM 8.3 mg/dL (8.4-10.5); GFR AFRICAN-AMERICAN > 60; GFR NON-AFRICAN AMERICAN > 60
[2017-11-24] MEDS: Pantoprazole 40 mg EC Tab PO SCH (06:39)
[2017-11-24 07:19] LABS: ALB/GLOB RATIO 0.5 (1.1-1.8)
[2017-11-24] MEDS: Potassium & Sodium Phosphate PO SCH ×2 (10:20→17:07)
[2017-11-24] MEDS: Cholecalciferol 1,000 INTLU TAB PO SCH (10:22)
[2017-11-24] MEDS ORDERED: Albumin Human 25% (12.5 gm/50 ml) IV SCH (11:42)
--- NOTE | 2017-11-24 12:03 | RAD ---
HISTORY: effusion COMPARISON: 11/20/2017 FINDINGS: LUNGS: No active pulmonary disease. PLEURA: There is a small right pleural effusion unchanged CARDIOVASCULAR: Normal. OSSEOUS STRUCTURES: No significant abnormalities. VISUALIZED UPPER ABDOMEN: Normal. OTHER FINDINGS: None. IMPRESSION: No change in small right pleural effusion
--- NOTE | 2017-11-24 13:05 | CP.PCM.PN ---
<Ayo Siddiqui - Last Filed: 11/24/17 12:55> Subjective - Date & Time of Evaluation Date of Evaluation: 11/24/17 Time of Evaluation: 12:55 - Subjective Subjective: Medicine Progress Note Pt seen and examined at bedside. No acute overnights. 8L drawn out from paracentesis yesterday. Pt states that abdominal pain is improved. Pt denied CP , SOB, nausea, vomiting, diarrhea, fever, chills, SALDIVAR, or dizziness. Objective - Vital Signs/Intake and Output Vital Signs (last 24 hours): Temp Pulse Resp BP Pulse Ox 98.6 F 65 20 91/43 L 99 11/24/17 07:30 11/24/17 07:30 11/24/17 07:30 11/24/17 07:30 11/24/17 07:30 Intake and Output: 11/24/17 11/24/17 06:59 18:59 Intake Total 1020 Balance 1020 - Medications Medications: Current Medications Albumin Human (Albumin Human 25% (12.5 Gm/50 Ml)) 12.5 gm IV Q8H [facility] Stop: 11/25/17 06:01 Ascorbic Acid (Vitamin C 500 Mg Tab) 1,000 mg PO BID [facility] Last Admin: 11/24/17 10:20 Dose: 1,000 mg Aspirin (Ecotrin) 81 mg PO DAILY [facility] Last Admin: 11/24/17 10:22 Dose: 81 mg Cholecalciferol (Vitamin D) 2,000 intlu PO DAILY [facility] Last Admin: 11/24/17 10:22 Dose: 2,000 intlu Cyanocobalamin (Vitamin B12 1000 Mcg Tab) 1,000 mcg PO DAILY [facility] Last Admin: 11/24/17 10:20 Dose: 1,000 mcg Furosemide (Lasix) 40 mg PO DAILY [facility] Lactulose (Enulose) 20 gm PO BID [facility] Last Admin: 11/24/17 10:19 Dose: 20 gm Meclizine HCl (Antivert) 25 mg PO BID PRN PRN Reason: Dizziness Last Admin: 11/21/17 05:42 Dose: 25 mg Midodrine (Proamatine) 10 mg PO TID [facility] Last Admin: 11/24/17 10:20 Dose: 10 mg Morphine Sulfate (Morphine) 2 mg IVP Q4H PRN PRN Reason: Pain, moderate (4-7) Last Admin: 11/23/17 22:24 Dose: 2 mg Nadolol (Corgard) 10 mg PO DAILY [facility] Last Admin: 11/24/17 10:21 Dose: 10 mg Ondansetron HCl (Zofran Tab) 4 mg PO Q8 PRN PRN Reason: Nausea/Vomiting Pantoprazole Sodium (Protonix Ec Tab) 40 mg PO 0600 [facility] Last Admin: 11/24/17 06:39 Dose: 40 mg Potassium Phos/Sodium Phos (Neutra-Phos) 2 pkt PO BID [facility] Last Admin: 11/24/17 10:20 Dose: 2 pkt Rifaximin (Xifaxan) 550 mg PO BID [facility] PRN Reason: Protocol Stop: 11/24/17 23:59 Last Admin: 11/24/17 10:20 Dose: 550 mg Spironolactone (Aldactone) 100 mg PO DAILY [facility] - Labs Labs: 11/24/17 05:30 11/24/17 05:30 PT 15.8 SECONDS (9.4-12.5) H 11/20/17 20:10 INR 1.44 (0.93-1.08) H 11/20/17 20:10 APTT 36.8 Seconds (25.1-36.5) H 11/20/17 20:10 - Constitutional Appears: No Acute Distress - Head Exam Head Exam: NORMAL INSPECTION - Eye Exam Eye Exam: Normal appearance Pupil Exam: NORMAL ACCOMODATION - Neck Exam Neck Exam: Normal Inspection - Respiratory Exam Respiratory Exam: Clear to Ausculation Bilateral. absent: Rales, Rhonchi, Wheezes - GI/Abdominal Exam GI & Abdominal Exam: Distended (improved), Soft, Tenderness (improved). absent : Guarding, Rebound - Extremities Exam Extremities Exam: Normal Inspection - Back Exam Back Exam: NORMAL INSPECTION - Neurological Exam Neurological Exam: Alert, Awake, Oriented x3 - Psychiatric Exam Psychiatric exam: Normal Affect, Normal Mood - Skin Skin Exam: Dry, Intact, Normal Color, Warm Assessment and Plan - Assessment and Plan (Free Text) Assessment: 62 year old male with past medical history of TRUJILLO, afib s/p cardioversion, HTN , GERD, CHF, and esophageal varices who presents with confusion and abdominal discomfort for a duration of 12 hours. Pt admitted for evaluation and treatment for hepatic encephalopathy 2/2 elevated ammonia due to h/o of non-alcoholic cirrhosis. Plan: 1. Hepatic Encephalopathy, resolved - CT head negative for any acute processes - Ammonia level elevated on admission, WNL now - Cont Lactulose and Rifaximin - Fall precautions - GI Consulted 2. 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 Acute Kidney Injury, resolved - Cont to monitor 4. Moderate Right Sided Pleural Effusion - Seen in both CT Abdomen/Pelvis and Chest X-Ray - Repeat CXR shows no change - No dyspnea at this time, cont to monitor 5. Atrial Fibrillation s/p Cardioversion - Cont to monitor 6. CAD s/p stent placement 09/06 - Continue home Aspirin 81mg, Spironolactone 100mg PO QD and Midodrine 10mg PO TID 7. Chronic Anemia - Cont to monitor - H/H stable - Iron studies, Vitamin B12, Vitamin D and Folate WNL GI/DVT PPx - Protonix - SCDs Pt seen and discussed in detail with Dr. Dailey. Oliver Siddiqui, PGY1 <Richa Dailey - Last Filed: 11/24/17 14:14> Objective - Vital Signs/Intake and Output Vital Signs (last 24 hours): Temp Pulse Resp BP Pulse Ox 98.6 F 65 20 91/43 L 99 11/24/17 07:30 11/24/17 07:30 11/24/17 07:30 11/24/17 07:30 11/24/17 07:30 Intake and Output: 11/24/17 11/24/17 06:59 18:59 Intake Total 1020 Balance 1020 - Medications Medications: Current Medications Albumin Human (Albumin Human 25% (12.5 Gm/50 Ml)) 12.5 gm IV Q8H [facility] Stop: 11/25/17 06:01 Ascorbic Acid (Vitamin C 500 Mg Tab) 1,000 mg PO BID [facility] Last Admin: 11/24/17 10:20 Dose: 1,000 mg Aspirin (Ecotrin) 81 mg PO DAILY [facility] Last Admin: 11/24/17 10:22 Dose: 81 mg Cholecalciferol (Vitamin D) 2,000 intlu PO DAILY [facility] Last Admin: 11/24/17 10:22 Dose: 2,000 intlu Cyanocobalamin (Vitamin B12 1000 Mcg Tab) 1,000 mcg PO DAILY [facility] Last Admin: 11/24/17 10:20 Dose: 1,000 mcg Furosemide (Lasix) 40 mg PO DAILY [facility] Lactulose (Enulose) 20 gm PO BID [facility] Last Admin: 11/24/17 10:19 Dose: 20 gm Meclizine HCl (Antivert) 25 mg PO BID PRN PRN Reason: Dizziness Last Admin: 11/21/17 05:42 Dose: 25 mg Midodrine (Proamatine) 10 mg PO TID [facility] Last Admin: 11/24/17 10:20 Dose: 10 mg Morphine Sulfate (Morphine) 2 mg IVP Q4H PRN PRN Reason: Pain, moderate (4-7) Last Admin: 11/23/17 22:24 Dose: 2 mg Nadolol (Corgard) 10 mg PO DAILY [facility] Last Admin: 11/24/17 10:21 Dose: 10 mg Ondansetron HCl (Zofran Tab) 4 mg PO Q8 PRN PRN Reason: Nausea/Vomiting Pantoprazole Sodium (Protonix Ec Tab) 40 mg PO 0600 [facility] Last Admin: 11/24/17 06:39 Dose: 40 mg Potassium Phos/Sodium Phos (Neutra-Phos) 2 pkt PO BID [facility] Last Admin: 11/24/17 10:20 Dose: 2 pkt Rifaximin (Xifaxan) 550 mg PO BID [facility] PRN Reason: Protocol Stop: 11/24/17 23:59 Last Admin: 11/24/17 10:20 Dose: 550 mg Spironolactone (Aldactone) 100 mg PO DAILY [facility] - Labs Labs: 11/24/17 05:30 11/24/17 05:30 PT 15.8 SECONDS (9.4-12.5) H 11/20/17 20:10 INR 1.44 (0.93-1.08) H 11/20/17 20:10 APTT 36.8 Seconds (25.1-36.5) H 11/20/17 20:10 Attending/Attestation - Attestation I have personally seen and examined this patient.: Yes I have fully participated in the care of the patient.: Yes I have reviewed all pertinent clinical information, including history, physical exam and plan: Yes Notes (Text): 11/24/17 14:12 Patient was seen and examined with medical front desk coordinator. Agreed with assessment and plan. 62 year old male with past medical history of TRUJILLO, afib s/p cardioversion, HTN , GERD, CHF, and esophageal varices who presents with confusion and abdominal discomfort, ammonia level was high, now back to normal, Patient underwent Paracentesis yesterday.Abdmoninal pain is better.He is awake but still has intermittent confusion, may have underlying cognitive dysfunction. Patient is afebrile, we will follow up ascitic fluid analysis, clinically suspicious for SBP is low. We will also get Physical therapy evaluation. Management plan was discussed in detail. Need reinforcement.
[2017-11-24] MEDS: Albumin Human 25% (12.5 gm/50 ml) IV SCH ×2 (14:43→21:41)
--- NOTE | 2017-11-24 18:29 | US ---
PROCEDURE: Ultrasound guided paracentesis. HISTORY: Cryptogenic cirrhosis. Current ascites with abdominal pain and distension. Needs repeat paracentesis PHYSICIAN(S): Franko Crespo MD. TECHNIQUE: The relative risks and indications for the procedure were explained to the patient and informed written consent obtained. Sonography of the abdomen was performed in a supine position. This revealed a moderate to large amount of non-loculated ascites, greatest in the right lower quadrant. A puncture site was selected and the area was prepped and draped in the usual sterile fashion. 1% Xylocaine was used to anesthetize the skin and soft tissues. A 7 Divehi paracentesis catheter was trocared into the right lower quadrantand 8000 cc of ileus clear yellow fluid aspirated. No labs were sent. IMPRESSION: Ultrasound-guided paracentesis in the right lower quadrant. 8000 cc of fluid were aspirated
[2017-11-25] MEDS: Pantoprazole 40 mg EC Tab PO SCH (05:33)
[2017-11-25] MEDS: Albumin Human 25% (12.5 gm/50 ml) IV SCH (05:33)
[2017-11-25 06:36] LABS: HEMOGLOBIN 8.3 g/dL (14.0-18.0); MEAN CELL VOLUME 95.1 fl (80.0-105.0); MEAN CORPUSCULAR HGB CONC 32.5 g/dl (31.0-37.0); MEAN PLATELET VOLUME 9.3 fl (7.0-11.0); RBC 2.68 10^6/uL (3.5-6.1); WHITE BLOOD COUNT 5.8 10^3/ul (4.5-11.0)
[2017-11-25 07:05] LABS: ALBUMIN 2.5 g/dL (3.0-4.8); ALT/SGPT 33 U/L (7-56); AST/SGOT 49 U/L (17-59); BLOOD UREA NITROGEN 18 mg/dL (7-21); CALCIUM 8.4 mg/dL (8.4-10.5); GFR AFRICAN-AMERICAN > 60; GFR NON-AFRICAN AMERICAN 51
[2017-11-25 07:43] LABS: ALB/GLOB RATIO 0.6 (1.1-1.8)
[2017-11-25] MEDS ORDERED: Albumin Human 25% (12.5 gm/50 ml) IV ONE (09:16)
[2017-11-25] MEDS: Potassium & Sodium Phosphate PO SCH ×2 (09:35→18:41)
[2017-11-25] MEDS: Cholecalciferol 1,000 INTLU TAB PO SCH (09:39)
--- NOTE | 2017-11-25 14:20 | CP.PCM.PN ---
Addendum entered and electronically signed by Ayo Siddiqui DO 11/25/17 14:45 : Pt seen and discussed in detail with Dr. Rosales. Not Dr. Dailey. Original Note: <Ayo Siddiqui - Last Filed: 11/25/17 14:16> Subjective - Date & Time of Evaluation Date of Evaluation: 11/25/17 Time of Evaluation: 14:17 - Subjective Subjective: Medicine Progress Note Pt seen and examined at bedside. No acute overnight events. Pt states that abdominal pain and distension has improved. Pt is OOB and ambulating with walker without difficulty. Pt denied CP, SOB, nausea, vomiting, diarrhea, fever , chills, SALDIVAR, or dizziness. Objective - Vital Signs/Intake and Output Vital Signs (last 24 hours): Temp Pulse Resp BP Pulse Ox 99.1 F 65 20 91/47 L 98 11/24/17 16:00 11/24/17 16:00 11/24/17 16:00 11/25/17 09:37 11/24/17 16:00 Intake and Output: 11/25/17 11/25/17 06:59 18:59 Intake Total 1020 Balance 1020 - Medications Medications: Current Medications Ascorbic Acid (Vitamin C 500 Mg Tab) 1,000 mg PO BID [facility] Last Admin: 11/25/17 09:39 Dose: 1,000 mg Aspirin (Ecotrin) 81 mg PO DAILY [facility] Last Admin: 11/25/17 09:37 Dose: 81 mg Cholecalciferol (Vitamin D) 2,000 intlu PO DAILY [facility] Last Admin: 11/25/17 09:39 Dose: 2,000 intlu Cyanocobalamin (Vitamin B12 1000 Mcg Tab) 1,000 mcg PO DAILY [facility] Last Admin: 11/25/17 09:42 Dose: 1,000 mcg Furosemide (Lasix) 40 mg PO DAILY [facility] Last Admin: 11/25/17 09:36 Dose: Not Given Lactulose (Enulose) 20 gm PO BID [facility] Last Admin: 11/25/17 09:34 Dose: 20 gm Meclizine HCl (Antivert) 25 mg PO BID PRN PRN Reason: Dizziness Last Admin: 11/21/17 05:42 Dose: 25 mg Midodrine (Proamatine) 10 mg PO TID [facility] Last Admin: 11/25/17 09:42 Dose: 10 mg Nadolol (Corgard) 10 mg PO DAILY [facility] Last Admin: 11/25/17 09:37 Dose: Not Given Ondansetron HCl (Zofran Tab) 4 mg PO Q8 PRN PRN Reason: Nausea/Vomiting Pantoprazole Sodium (Protonix Ec Tab) 40 mg PO 0600 [facility] Last Admin: 11/25/17 05:33 Dose: Not Given Potassium Phos/Sodium Phos (Neutra-Phos) 2 pkt PO BID [facility] Last Admin: 11/25/17 09:35 Dose: 2 pkt Spironolactone (Aldactone) 100 mg PO DAILY [facility] Last Admin: 11/25/17 09:38 Dose: 100 mg Tramadol HCl (Ultram) 25 mg PO Q6H PRN PRN Reason: Pain, severe (8-10) Last Admin: 11/24/17 20:01 Dose: 25 mg - Labs Labs: 11/25/17 06:00 11/25/17 06:00 PT 15.8 SECONDS (9.4-12.5) H 11/20/17 20:10 INR 1.44 (0.93-1.08) H 11/20/17 20:10 APTT 36.8 Seconds (25.1-36.5) H 11/20/17 20:10 - Constitutional Appears: No Acute Distress - Head Exam Head Exam: NORMAL INSPECTION - Eye Exam Eye Exam: Normal appearance - ENT Exam ENT Exam: Normal Exam - Neck Exam Neck Exam: Normal Inspection - Respiratory Exam Respiratory Exam: Clear to Ausculation Bilateral. absent: Rales, Rhonchi, Wheezes - Cardiovascular Exam Cardiovascular Exam: RRR, +S1, +S2. absent: Gallop, Rubs, Murmur - GI/Abdominal Exam GI & Abdominal Exam: Soft. absent: Distended, Guarding, Tenderness, Mass - Extremities Exam Extremities Exam: Normal Inspection - Back Exam Back Exam: NORMAL INSPECTION - Neurological Exam Neurological Exam: Alert, Awake, Oriented x3 - Psychiatric Exam Psychiatric exam: Normal Affect, Normal Mood - Skin Skin Exam: Dry, Intact, Normal Color, Warm Assessment and Plan - Assessment and Plan (Free Text) Assessment: 62 year old male with past medical history of TRUJILLO, afib s/p cardioversion, HTN , GERD, CHF, and esophageal varices who presents with confusion and abdominal discomfort for a duration of 12 hours. Pt admitted for evaluation and treatment for hepatic encephalopathy 2/2 elevated ammonia due to h/o of non-alcoholic cirrhosis. Plan: 1. Hepatic Encephalopathy, resolved - CT head negative for any acute processes - Ammonia level elevated on admission, WNL now - Continue Lactulose and Rifaximin - Fall precautions - GI Consulted 2. Non-Alcoholic Liver Cirrhosis with associated Esophageal Varices - CT Abdomen/Pelvis showing ascites and shrunken, nodular appearance of liver - Continue home Nadolol 10mg PO QD, Neutra-Phos supplementation and Zofran PRN - IR consulted for paracentesis - Cont Lasix, aldactone - IV Albumin - Cont PT, plan for DC tomorrow 3. Acute Kidney Injury, resolved - Cont to monitor 4. Moderate Right Sided Pleural Effusion - Seen in both CT Abdomen/Pelvis and Chest X-Ray - Repeat CXR shows no change - No dyspnea at this time, cont to monitor 5. Atrial Fibrillation s/p Cardioversion - Cont to monitor 6. CAD s/p stent placement 09/06 - Continue home Aspirin 81mg, Spironolactone 100mg PO QD and Midodrine 10mg PO TID 7. Chronic Anemia - Cont to monitor - H/H stable - Iron studies, Vitamin B12, Vitamin D and Folate WNL GI/DVT PPx - Protonix - SCDs Pt seen and discussed in detail with Dr. Dailey. Oliver Siddiqui, PGY1 <Felicita Rosales - Last Filed: 11/28/17 07:53> Objective - Vital Signs/Intake and Output Vital Signs (last 24 hours): Temp Pulse Resp BP Pulse Ox 98.2 F 63 18 145/88 95 11/26/17 07:30 11/26/17 07:30 11/26/17 07:30 11/26/17 09:43 11/26/17 07:30 - Labs Labs: 11/26/17 06:30 11/26/17 06:30 PT 15.8 SECONDS (9.4-12.5) H 11/20/17 20:10 INR 1.44 (0.93-1.08) H 11/20/17 20:10 APTT 36.8 Seconds (25.1-36.5) H 11/20/17 20:10 Attending/Attestation - Attestation I have personally seen and examined this patient.: Yes I have fully participated in the care of the patient.: Yes I have reviewed all pertinent clinical information, including history, physical exam and plan: Yes Notes (Text): 11/28/17 07:49 Attending note; Patient was seen and examined with medical services manager. Patient is a 62 year old male with past medical history of atrial fibrillation s/p cardioversion, hypertension, Gastroesophageal reflux and esophageal varices who presents with confusion and abdominal discomfort. Initially ammonia level was high, now back to normal. Patient underwent Paracentesis. Treated with IV albumin. Blood pressure is stable . Started on Aldactone and Lasix . Patient is ambulating with physical therapy . Patient uses walker at home . patient is completely alert, awake and oriented. Possible discharge home tomorrow. Patient will follow up with PMD . Case discussed with PMD in detail. Patient needs close follow-up with GI Dr. Paige/Dr. Lindsey. Patient was also referred to [facility] during last admission. Patient agreed to follow up with [facility]. 11/28/17 07:53
[2017-11-26] MEDS: Pantoprazole 40 mg EC Tab PO SCH (05:42)
[2017-11-26 07:05] LABS: HEMOGLOBIN 8.2 g/dL (14.0-18.0); MEAN CORPUSCULAR HEMOGLOBIN 30.6 pg (25.0-35.0); MEAN CORPUSCULAR HGB CONC 32.5 g/dl (31.0-37.0); MEAN PLATELET VOLUME 9.6 fl (7.0-11.0); RBC 2.68 10^6/uL (3.5-6.1); WHITE BLOOD COUNT 4.9 10^3/ul (4.5-11.0)
[2017-11-26 07:36] LABS: ALBUMIN 2.9 g/dL (3.0-4.8); ALT/SGPT 30 U/L (7-56); AST/SGOT 54 U/L (17-59); BLOOD UREA NITROGEN 20 mg/dL (7-21); CALCIUM 8.8 mg/dL (8.4-10.5); GFR AFRICAN-AMERICAN > 60; GFR NON-AFRICAN AMERICAN > 60
[2017-11-26 07:54] LABS: ALB/GLOB RATIO 0.6 (1.1-1.8)
[2017-11-26 08:01] VITALS: PULSE 63; RESP 18; TEMP 98.2; O2SAT 95
[2017-11-26] MEDS: Potassium & Sodium Phosphate PO SCH (09:42)
[2017-11-26] MEDS: Cholecalciferol 1,000 INTLU TAB PO SCH (09:42)
[2017-11-26 09:46] VITALS: BP 145/88
--- NOTE | 2017-11-27 14:24 | CP.PCM.DIS ---
Provider - Provider Date of Admission: 11/21/17 12:15 Attending physician: Felicita Rosales MD Primary care physician: Surinder Bishop MD Consults: Interventional Radiology: Dr. Crespo Gastroenterology: Dr. Fuchs Time Spent in preparation of Discharge (in minutes): 45 Diagnosis - Discharge Diagnosis (1) Hepatic encephalopathy Status: Acute Priority: Medium (2) Pleural effusion, right Status: Chronic Priority: Medium Hospital Course - Lab Results Lab Results: Most Recent Lab Values WBC 4.9 10^3/ul (4.5-11.0) 11/26/17 06:30 RBC 2.68 10^6/uL (3.5-6.1) L 11/26/17 06:30 Hgb 8.2 g/dL (14.0-18.0) L 11/26/17 06:30 Hct 25.2 % (42.0-52.0) L 11/26/17 06:30 MCV 94.0 fl (80.0-105.0) 11/26/17 06:30 MCH 30.6 pg (25.0-35.0) 11/26/17 06:30 MCHC 32.5 g/dl (31.0-37.0) 11/26/17 06:30 RDW 18.0 % (11.5-14.5) H 11/26/17 06:30 Plt Count 106 10^3/uL (120.0-450.0) L 11/26/17 06:30 MPV 9.6 fl (7.0-11.0) 11/26/17 06:30 Gran % 55.8 % (50.0-68.0) 11/21/17 06:40 Lymph % (Auto) 23.7 % (22.0-35.0) 11/21/17 06:40 Jackson % (Auto) 16.5 % (1.0-6.0) H 11/21/17 06:40 Eos % (Auto) 3.4 % (1.5-5.0) 11/21/17 06:40 Baso % (Auto) 0.6 % (0.0-3.0) 11/21/17 06:40 Gran # 2.94 (1.4-6.5) 11/21/17 06:40 Lymph # 1.3 (1.2-3.4) 11/21/17 06:40 Jackson # 0.9 (0.1-0.6) H 11/21/17 06:40 Eos # 0.2 (0.0-0.7) 11/21/17 06:40 Baso # 0.03 K/mm3 (0.0-2.0) 11/21/17 06:40 PT 15.8 SECONDS (9.4-12.5) H 11/20/17 20:10 INR 1.44 (0.93-1.08) H 11/20/17 20:10 APTT 36.8 Seconds (25.1-36.5) H 11/20/17 20:10 Sodium 136 mmol/L (132-148) 11/26/17 06:30 Potassium 4.6 mmol/L (3.6-5.0) 11/26/17 06:30 Chloride 106 mmol/L (98-107) 11/26/17 06:30 Carbon Dioxide 22 mmol/L (21-33) 11/26/17 06:30 Anion Gap 12 (10-20) 11/26/17 06:30 BUN 20 mg/dL (7-21) 11/26/17 06:30 Creatinine 1.2 mg/dl (0.8-1.5) 11/26/17 06:30 Est GFR ( Amer) > 60 11/26/17 06:30 Est GFR (Non-Af Amer) > 60 11/26/17 06:30 Random Glucose 84 mg/dL (70-110) 11/26/17 06:30 Calcium 8.8 mg/dL (8.4-10.5) 11/26/17 06:30 Phosphorus 3.7 mg/dL (2.5-4.5) 11/22/17 06:45 Magnesium 1.8 mg/dL (1.7-2.2) 11/22/17 06:45 Iron 88 ug/dL (45-180) 11/21/17 06:40 TIBC 293 ug/dL (261-462) 11/21/17 06:40 % Saturation 30 % (20-55) 11/21/17 06:40 Transferrin 222.71 mg/dL (206-381) 11/21/17 06:40 Ferritin 50.7 ng/mL 11/21/17 06:40 Total Bilirubin 2.0 mg/dL (0.2-1.3) H 11/26/17 06:30 AST 54 U/L (17-59) 11/26/17 06:30 ALT 30 U/L (7-56) 11/26/17 06:30 Alkaline Phosphatase 215 U/L (38-126) H 11/26/17 06:30 Ammonia 25 umol/L (9-33) 11/21/17 06:40 Lactate Dehydrogenase 451 U/L (333-699) 11/20/17 20:10 Total Creatine Kinase 231 U/L (35-230) H 11/20/17 20:10 CK-MB (CK-2) 3.6 ng/mL (0.0-3.6) 11/20/17 20:10 CK-MB (CK-2) % Cancelled 11/20/17 20:10 Troponin I 0.02 ng/mL 11/20/17 20:10 Total Protein 7.4 g/dL (5.8-8.3) 11/26/17 06:30 Albumin 2.9 g/dL (3.0-4.8) L 11/26/17 06:30 Globulin 4.6 gm/dL 11/26/17 06:30 Albumin/Globulin Ratio 0.6 (1.1-1.8) L 11/26/17 06:30 Lipase 118 U/L (23-300) 11/20/17 20:10 Vitamin B12 > 1000 pg/mL (239-931) H 11/21/17 06:40 25-OH Vitamin D Total 60.8 NG/ML (30.0-100.0) 11/21/17 06:40 Folate 9.6 ng/mL 11/21/17 06:40 - Hospital Course Hospital Course: 62 year old male with past medical history of non alcoholic steatohepatitis, atrial fibrillation, cardioversion, hypertension, gastroesophageal reflux disease, congestive heart failure, and esophageal varices who presented with confusion and abdominal discomfort for a duration of 12 hours. Patient found to have normal CT of his head, ascites, moderate right pleural effusion which has remained stable and shrunken nodular appearing liver on CT abdomen/pelvis, elevated ammonia level and an acute kidney injury with his creatinine level elevated to 1.9, which is above his baseline. Ultrasound guided Paracentesis was performed by Dr. Crespo on 11/23/17 in which 8000 cc of fluid was aspirated. After aspiration patient was found to be less distended; started lasix and aldactone were started. Discussed with patient's insurance the importance of rifaximin as patient has presented with continuous episodes of hepatic encephalopathy while on lactulose. Insurance agreed to cover rifaximin under patient's plan. Patient was instructed to continue home medications as well as continue home VNA and PT. Patient was discharged when he was able to get a ride from his sister. Case discussed and reviewed with Dr. Bobby Malloy PGY1 Discharge Exam - Head Exam Head Exam: NORMAL INSPECTION - Eye Exam Eye Exam: EOMI, Normal appearance - ENT Exam ENT Exam: Mucous Membranes Moist - Respiratory Exam Respiratory Exam: NORMAL BREATHING PATTERN, UNREMARKABLE - Cardiovascular Exam Cardiovascular Exam: REGULAR RHYTHM, +S1, +S2 - GI/Abdominal Exam GI & Abdominal Exam: Normal Bowel Sounds, Unremarkable. absent: Distended, Tenderness - Neurological Exam Neurological exam: Alert, CN II-XII Intact, Oriented x3 - Psychiatric Exam Psychiatric exam: Normal Affect, Normal Mood - Skin Skin Exam: Intact, Normal Color, Warm Discharge Plan - Discharge Medications Prescriptions: Lactulose [Enulose] 20 gm PO BID #60 udc Rifaximin [Xifaxan] 550 mg PO BID #60 tablet - Follow Up Plan Condition: STABLE Disposition: HOME/ ROUTINE Instructions: Pneumococcal Vaccine for Adults (DC), Influenza Vaccine (GEN), Hepatic Encephalopathy (DC) Additional Instructions: 1. Follow up with PMD within 1 week of discharge 2. Continue home medications as indicated 3. Continue home VNA and PT 4. Return to ED if symptoms worsen Referrals: Surinder Bishop MD [Primary Care Provider] - Follow up with primary
== END 2017-11-26 13:04 | disposition home or self-care (01) | DRG 557 ==
LOC: ED 19:47 → ERH 21:50 → 5RNO 22:42 → OBSVTOIN 11-21 12:15
PROVIDERS: ADMIT Hospitalist; ATTEND Internal Medicine
PROC: BW40ZZZ Ultrasonography of Abdomen (ICD-10-PCS; 2017-11-23)
PROC: 0W9G3ZZ Drainage of Peritoneal Cavity, Percutaneous Approach (ICD-10-PCS; principal; 2017-11-23 16:00)
DX: K72.90 Hepatic failure, unspecified without coma (principal); N17.9 Acute kidney failure, unspecified; I85.00 Esophageal varices without bleeding; N18.4 Chronic kidney disease, stage 4 (severe); I13.0 Hypertensive heart and chronic kidney disease with heart failure and stage 1 through stage 4 chronic kidney disease, or unspecified chronic kidney disease; I50.9 Heart failure, unspecified; I48.91 Unspecified atrial fibrillation; K76.6 Portal hypertension; K74.69 Other cirrhosis of liver; I25.10 Atherosclerotic heart disease of native coronary artery without angina pectoris; K21.9 Gastro-esophageal reflux disease without esophagitis; K76.0 Fatty (change of) liver, not elsewhere classified; Z82.49 Family history of ischemic heart disease and other diseases of the circulatory system; Z83.3 Family history of diabetes mellitus; Z87.01 Personal history of pneumonia (recurrent); Z87.891 Personal history of nicotine dependence; Z95.5 Presence of coronary angioplasty implant and graft; Z87.892 Personal history of anaphylaxis; Z91.018 Allergy to other foods; R40.2412 Glasgow coma scale score 13-15, at arrival to emergency department; D53.9 Nutritional anemia, unspecified

== ENCOUNTER 2017-12-06 11:57 | Inpatient (IN) | payer MEDICAID ==
--- NOTE | 2017-12-06 12:07 | ED PDOC ---
Arrival/HPI - General Time Seen by Provider: 12/06/17 12:01 Historian: Patient - History of Present Illness Narrative History of Present Illness (Text): 12/06/17 12:07 A 62 year old male, whose past medical history includes hypertension, esophageal varices, upper GI bleed, GERD, non-alcohol liver cirrhosis, atrial fibrillation, and CAD with stents, brought into the emergency department by EMS for abdominal pain and nausea. Patient reports he was recently discharged from the hospital from the hospital for similar complaints. Patient denies any fever , chills, vomiting, diarrhea, chest pain, shortness of breath or any other complaints. PMD: Dr. Bishop Past Medical History - Provider Review Nursing Documentation Reviewed: Yes - Infectious Disease Hx of Infectious Diseases: None - Tetanus Immunization Tetanus Immunization: Unknown - Cardiac Hx Cardiac Disorders: Yes Hx Congestive Heart Failure: Yes Hx Hypertension: Yes - Pulmonary Hx Respiratory Disorders: Yes Hx Pneumonia: Yes (09-02-17) - Neurological Hx Neurological Disorder: No - HEENT Hx HEENT Disorder: No - Renal Hx Renal Failure: Yes - Endocrine/Metabolic Hx Endocrine Disorders: No - Hematological/Oncological Hx Blood Disorders: Yes Hx Cirrhosis: Yes (PARACENTESIS) - Integumentary Hx Dermatological Disorder: No - Musculoskeletal/Rheumatological Hx Musculoskeletal Disorders: Yes Hx Falls: Yes Hx Unsteady Gait: Yes - Gastrointestinal Hx Gastrointestinal Disorders: Yes Hx Gastroesophageal Reflux: Yes - Genitourinary/Gynecological Hx Genitourinary Disorders: No - Psychiatric Hx Psychophysiologic Disorder: No Hx Substance Use: No - Surgical History Hx Coronary Stent: Yes - Anesthesia Hx Anesthesia Reactions: No Hx Malignant Hyperthermia: No Family/Social History - Physician Review Nursing Documentation Reviewed: Yes Family/Social History: No Known Family HX Smoking Status: Former Smoker Hx Alcohol Use: No Hx Substance Use: No Allergies/Home Meds Allergies/Adverse Reactions: Allergies Beef Containing Products Allergy (Severe, Verified 12/06/17 21:39) ANAPHYLAXIS tounge swelling, beef derived (bovine) Allergy (Severe, Verified 12/06/17 21:39) ANAPHYLAXIS tounge swelling banana Allergy (Intermediate, Verified 12/06/17 21:39) ITCHING velcro Allergy (Uncoded 12/07/17 01:43) ITCHING Home Medications: Home Meds Medication Instructions Recorded Confirmed Furosemide [Lasix] 40 mg PO DAILY 07/21/17 12/06/17 Pantoprazole [Protonix EC Tab] 40 mg PO DAILY 07/21/17 12/06/17 Ascorbic Acid [Vitamin C 500 mg 1,000 mg PO BID 11/20/17 12/06/17 Tab] Cholecalciferol (Vitamin D3) 2,000 unit PO DAILY 11/20/17 12/06/17 [Vitamin D3] Cyanocobalamin [Vitamin B12 1000 1,000 mcg PO DAILY 11/20/17 12/06/17 mcg Tab] Nadolol [Corgard] 10 mg PO DAILY 11/20/17 12/06/17 Ondansetron [Zofran Tab] 4 mg PO Q8 PRN 11/20/17 12/06/17 Phosphorus/Potassium/Sodium 2 pkt PO BID 11/20/17 12/06/17 [Neutra-Phos] Spironolactone [Aldactone] 25 mg PO BID 11/20/17 12/06/17 Review of Systems - Review of Systems Constitutional: Fatigue. absent: Fevers, Night Sweats Respiratory: absent: SOB Cardiovascular: absent: Chest Pain Gastrointestinal: Abdominal Pain, Nausea. absent: Diarrhea, Vomiting, Hematochezia, Hematemesis Genitourinary Male: absent: Dysuria, Frequency Musculoskeletal: Back Pain. absent: Neck Pain Skin: absent: Rash Neurological: Gait Changes, Disequilibrium. absent: Headache, Dizziness, Focal Weakness Hemo/Lymphatic: Easy Bleeding Psychiatric: absent: Depression Physical Exam - Physical Exam Narrative Physical Exam (Text): Head: Atraumatic. Normocephalic. Eyes: PERRL. EOMI. Conjunctivae are pale. ENT: Mucous membranes are moist and intact. Oropharynx is clear and symmetric. Neck: Supple. Full ROM. No JVD. No lymphadenopathy. Cardiovascular: Regular rate. Regular rhythm. No pathologic murmur noted. Pulmonary/Chest: No evidence of respiratory distress. Clear to auscultation bilaterally. No wheezing, rales or rhonchi. Abdominal: Distended. Not tympanic. No fluid wave. Mild diffuse tenderness. NO incarcerated hernia or pulsatile masses noted. Back: No CVA tenderness. Extremities: No edema. No cyanosis. No clubbing. Full range of motion in all extremities. No calf tenderness. Skin: Skin is warm and dry. No petechiae. No purpura. Neurological: Alert, awake, and oriented to person, place, time, and situation. No asterixis. No meningeal signs. No focal weakness. No sensory deficits. Psychiatric: Good eye contact. Flat affect. Denies depresison. 12/07/17 13:43 Vital Signs Reviewed: Yes Vital Signs Temp Pulse Resp BP Pulse Ox 12/06/17 17:04 51 L 18 107/40 L 100 12/06/17 16:04 52 L 18 117/54 L 99 12/06/17 15:40 52 L 18 118/61 100 12/06/17 14:02 53 L 18 121/57 L 100 12/06/17 13:25 54 L 18 141/67 100 12/06/17 12:06 97.5 F L 71 18 125/81 95 Temperature: Afebrile Blood Pressure: Normal Pulse: Regular Respiratory Rate: Normal Appearance: Positive for: Ill-Appearing Pain Distress: Mild Mental Status: Positive for: Alert and Oriented X 3 Medical Decision Making ED Course and Treatment: 12/06/17 12:07 Impression: A 62 year old male with abdominal pain and nausea Differential Diagnosis included but are not limited to: Plan: -- Chest xray -- EKG -- Labs -- Urinalysis -- Reassess and disposition Prior Visits: Notes and results from previous visits were reviewed. Patient last seen in ED on 11/20/17 and admitted for hepatic encephalopathy. Progress Notes: Patient is tired, but alert and answers questions. His current ammonia level is unremarkable although he is susceptible to hepatic encephalopathy. No focal neuro deficits noted. He is afebrile. He has diffuse mild abdominal pain and reports lack of appetite. Recent CT of abdomen was reviewed, he reports pain as similar in past. No rebound or gurading. Report Date : 12/06/2017 13:14:01 Procedure: Chest xray Dictator : Franko Russ MD IMPRESSION: Persistent small right pleural effusion. No respiratory distress noted. Cr elevated from baseline. Will admit for serial exams, acute renal failure, dehydration, gi consultation. Case d/w hospitalist, covering for his PMD. - Lab Interpretations Lab Results: 12/06/17 13:55 12/06/17 13:55 Lab Results 12/06/17 14:46: Urine Color Yellow, Urine Appearance Clear, Urine pH 6.0, Ur Specific [place] 1.010, Urine Protein Negative, Urine Glucose (UA) Negative, Urine Ketones Negative, Urine Blood Negative, Urine Nitrate Negative, Urine Bilirubin Negative, Urine Urobilinogen 0.2, Ur Leukocyte Esterase Negative 12/06/17 13:55: Sodium 131 L, Potassium 5.1 H, Chloride 96 L, Carbon Dioxide 23 , Anion Gap 17, BUN 42 H, Creatinine 2.4 H, Est GFR ( Amer) 33, Est GFR ( Non-Af Amer) 28, Random Glucose 103, Calcium 10.1, Magnesium 1.9, Total Bilirubin 2.1 H, AST 57, ALT 38, Alkaline Phosphatase 299 H D, Lactate Dehydrogenase 516, Total Creatine Kinase 34 L, Troponin I 0.03 D, Total Protein 8.9 H, Albumin 3.4, Globulin 5.5, Albumin/Globulin Ratio 0.6 L, Amylase 32 L, Lipase 113 12/06/17 13:55: PT 14.8 H, INR 1.29 H, APTT 36.2 12/06/17 13:55: WBC 6.9 D, RBC 3.35 L, Hgb 10.5 L D, Hct 31.0 L, MCV 92.5, MCH 31.3, MCHC 33.9, RDW 17.6 H, Plt Count 180, MPV 10.2, Gran % 65.2, Lymph % (Auto ) 17.9 L, [place] % (Auto) 13.4 H, Eos % (Auto) 2.9, Baso % (Auto) 0.6, Gran # 4.50 , Lymph # 1.2, [place] # 0.9 H, Eos # 0.2, Baso # 0.04 12/06/17 13:55: Ammonia 27 I have reviewed the lab results: Yes - RAD Interpretation Radiology Orders: 12/06/17 12:36 CHEST PORTABLE [RAD] Stat Tooth Cutter Spur: Radiologist - EKG Interpretation Interpreted by ED Physician: Yes Type: 12 lead EKG - Medication Orders Current Medication Orders: Albumin Human (Albumin Human 5% (12.5 Gm/250 Ml)) 25 gm IV Q8H [place] Stop: 12/09/17 00:01 Last Admin: 12/07/17 08:43 Dose: 25 gm eMAR Start Stop Document 12/07/17 08:43 SML (Rec: 12/07/17 08:43 SML [id number]) Intravenous Solution Start Date 12/07/17 Start Time 08:43 Alprazolam (Xanax) 0.5 mg PO HS PRN; Protocol PRN Reason: Anxiety Ascorbic Acid (Vitamin C 500 Mg Tab) 1,000 mg PO BID [facility] Last Admin: 12/07/17 09:40 Dose: 1,000 mg Cholecalciferol (Vitamin D) 2,000 intlu PO DAILY [facility] Last Admin: 12/07/17 09:39 Dose: 2,000 intlu Cyanocobalamin (Vitamin B12 1000 Mcg Tab) 1,000 mcg PO DAILY [facility] Last Admin: 12/07/17 09:40 Dose: 1,000 mcg Lactulose (Enulose) 20 gm PO BID [facility] Last Admin: 12/07/17 09:40 Dose: 20 gm Midodrine (Proamatine) 10 mg PO TID [facility] Last Admin: 12/07/17 09:39 Dose: 10 mg Nadolol (Corgard) 10 mg PO DAILY [facility] Last Admin: 12/07/17 09:39 Dose: Not Given Non-Admin Reason: BP Parameters Not Met MAR Pulse and Blood Pressure Document 12/07/17 09:39 SML (Rec: 12/07/17 09:39 SML [id number]) Blood Pressure Blood Pressure (100/60-150/90) 107/51 Ondansetron HCl (Zofran Inj) 4 mg IVP Q6H PRN PRN Reason: Nausea/Vomiting Last Admin: 12/07/17 02:32 Dose: 4 mg IVP Administration Document 12/07/17 02:32 KTB (Rec: 12/07/17 02:32 KTB [id number]) Charges for Administration # of IVP Administrations 1 Potassium Phos/Sodium Phos (Neutra-Phos) 2 pkt PO BID [facility] Last Admin: 12/07/17 09:39 Dose: 2 pkt Rifaximin (Xifaxan) 550 mg PO BID [place] PRN Reason: Protocol Last Admin: 12/07/17 09:39 Dose: 550 mg Discontinued Medications Famotidine (Pepcid) 20 mg IVP STAT STA Stop: 12/06/17 13:26 Last Admin: 12/06/17 13:57 Dose: 20 mg IVP Administration Document 12/06/17 13:57 OCS (Rec: 12/06/17 13:57 OCS [facility] [id number]) Charges for Administration # of IVP Administrations 1 Sodium Chloride (Sodium Chloride 0.9%) 1,000 mls @ 100 mls/hr IV .Q10H [facility] Last Admin: 12/07/17 02:36 Dose: 100 mls/hr eMAR Start Stop Document 12/07/17 02:36 KTB (Rec: 12/07/17 02:36 KTB [id number] Intravenous Solution Start Date 12/07/17 Start Time 02:36 Morphine Sulfate (Morphine) 1 mg IVP ONCE STA Stop: 12/06/17 22:34 Last Admin: 12/06/17 22:49 Dose: 1 mg MAR Pain Assessment Document 12/06/17 22:49 KTB (Rec: 12/06/17 22:50 KTB [facility] [id number]) Pain Reassessment Is this a pain reassessment? No Presence of Pain Presence of Pain Yes Pain Scale Used Pain Scale Used Numeric Location Left, Right or Bilateral Bilateral Upper or Lower Lower Pain Location Body Site Back Description Intensity of Pain at present 9 Radiation Location L side IVP Administration Document 12/06/17 22:49 KTB (Rec: 12/06/17 22:50 KTB [facility] [id number] Charges for Administration # of IVP Administrations 1 Ondansetron HCl (Zofran Inj) 4 mg IVP ONCE ONE Stop: 12/06/17 13:26 Last Admin: 12/06/17 13:57 Dose: 4 mg IVP Administration Document 12/06/17 13:57 OCS (Rec: 12/06/17 13:58 OCS [facility] [id number]) Charges for Administration # of IVP Administrations 1 Pantoprazole Sodium (Protonix Inj) 40 mg IVP DAILY [facility] Last Admin: 12/06/17 17:03 Dose: 40 mg IVP Administration Document 12/06/17 17:03 OCS (Rec: 12/06/17 17:03 OCS [id number]) Charges for Administration # of IVP Administrations 1 Pneumococcal Polyvalent Vaccine (Pneumovax 23 Vaccine) 0.5 ml IM .ONCE ONE Stop: 12/06/17 23:00 - Scribe Statement The provider has reviewed the documentation as recorded by the Corina Brown Provider Scribe Attestation: All medical record entries made by the Corina were at my direction and personally dictated by me. I have reviewed the chart and agree that the record accurately reflects my personal performance of the history, physical exam, medical decision making, and the department course for this patient. I have also personally directed, reviewed, and agree with the discharge instructions and disposition. Disposition/Present on Arrival - Present on Arrival Any Indicators Present on Arrival: No History of DVT/PE: No History of Uncontrolled Diabetes: No Urinary Catheter: No History Surgical Site Infection Following: None - Disposition Have Diagnosis and Disposition been Completed?: Yes Diagnosis: Pleural effusion, right, Abdominal pain, Acute renal failure Disposition: HOSPITALIZED Disposition Time: 14:30 Patient Plan: Admission Condition: FAIR
[2017-12-06 12:08] VITALS: BMI 19.6
--- NOTE | 2017-12-06 13:15 | RAD ---
HISTORY: weakness, nausea COMPARISON: 11/24/2017 FINDINGS: LUNGS: No active pulmonary disease. PLEURA: Persistent small right pleural effusion without interval change. No left pleural effusion. No pneumothorax. CARDIOVASCULAR: Normal. OSSEOUS STRUCTURES: No significant abnormalities. VISUALIZED UPPER ABDOMEN: Normal. OTHER FINDINGS: None. IMPRESSION: Persistent small right pleural effusion.
[2017-12-06 14:11] LABS: BASO # 0.04 K/mm3 (0.0-2.0); BASO % 0.6 % (0.0-3.0); EOS # 0.2 (0.0-0.7); EOS % 2.9 % (1.5-5.0); GRAN # 4.5 (1.4-6.5); GRAN % 65.2 % (50.0-68.0); HEMOGLOBIN 10.5 g/dL (14.0-18.0); LYMPH # 1.2 (1.2-3.4); LYMPH % 17.9 % (22.0-35.0); MEAN CELL VOLUME 92.5 fl (80.0-105.0); MEAN CORPUSCULAR HEMOGLOBIN 31.3 pg (25.0-35.0); MEAN CORPUSCULAR HGB CONC 33.9 g/dl (31.0-37.0); MEAN PLATELET VOLUME 10.2 fl (7.0-11.0); MONO # 0.9 (0.1-0.6); MONO % 13.4 % (1.0-6.0); RBC 3.35 10^6/uL (3.5-6.1); RED CELL DISTRIBUTION WIDTH 17.6 % (11.5-14.5); WHITE BLOOD COUNT 6.9 10^3/ul (4.5-11.0)
[2017-12-06 14:31] LABS: ALB/GLOB RATIO 0.6 (1.1-1.8); ALBUMIN 3.4 g/dL (3.0-4.8); CALCIUM 10.1 mg/dL (8.4-10.5); MAGNESIUM 1.9 mg/dL (1.7-2.2)
[2017-12-06 14:41] LABS: TROPONIN I 0.03 ng/mL
[2017-12-06 14:59] LABS: URINE APPEARANCE CLEAR (CLEAR); URINE BILIRUBIN NEGATIVE (NEGATIVE); URINE BLOOD NEGATIVE (NEGATIVE); URINE COLOR YELLOW (YELLOW); URINE GLUCOSE (UA) NEGATIVE (NEGATIVE); URINE LEUKOCYTE ESTERASE NEGATIVE Leu/uL (NEGATIVE); URINE NITRATE NEGATIVE (NEGATIVE); URINE PROTEIN NEGATIVE mg/dL (<30 mg/dL); URINE UROBILINOGEN 0.2 E.U./dL (<1 E.U./dL)
[2017-12-06] MEDS: Sodium Chloride 0.9% 1,000 ML IV SCH (14:59)
--- NOTE | 2017-12-06 15:02 | CARD ---
APPROVED REPORT EKG Measurement Heart [id number] <Conclusion> Sinus bradycardia Otherwise normal ECG
[2017-12-06 15:29] LABS: INR 1.29 (0.93-1.08); PARTIAL THROMBOPLASTIN TIME 36.2 Seconds (25.1-36.5); PROTHROMBIN TIME 14.8 SECONDS (9.4-12.5)
--- NOTE | 2017-12-06 16:09 | CP.PCM.HP ---
<Obie Velazquez - Last Filed: 12/06/17 16:55> History of Present Illness - History of Present Illness History of Present Illness: 62 year old male with pat medical history non Non-Alcoholic Liver Cirrhosis, afib s/p cardioversion, HTN, GERD, CHF, and esophageal varices presents with right lower quadrant abdominal pain which began at midnight last night. The patient stated the pain was crampy and rated it a 10/10 and denied any radiation. He has not eaten since the pain started. In addition, the patient stated he had two episodes of non bloody non bilious vomiting and 2 episodes of diarrhea without blood or mucus. Patient stated he took pepto bismol at home without any relief. Patient denies any chest pain, shortness of breath, fever, sore throat, or sick contacts. PMH: HTN, GERD, Non-alcoholic liver cirrhosis, Ascites, CHF, afib s/p cardioversion and esophageal varices Surgical History: Inguinal hernia repair Social History: Denies alcohol, drug used; Former smoker, quit 1.5 years ago Family History: Mother - [place], heart disease; Father - [place] Allergies: Beef products, banana Home Medications: As per TAMMI PMD: Dr Bishop [place]: Dr [place] Present on Admission - Present on Admission Any Indicators Present on Admission: No Review of Systems - Constitutional Constitutional: Fatigue. absent: Chills, Fever - EENT Eyes: absent: Change in Vision Nose/Mouth/Throat: absent: Nasal Congestion - Cardiovascular Cardiovascular: Lightheadedness. absent: Chest Pain, Dyspnea - Respiratory Respiratory: absent: Cough - Gastrointestinal Gastrointestinal: Abdominal Pain, Diarrhea, Nausea, Vomiting - Musculoskeletal Musculoskeletal: absent: Arthralgias - Neurological Neurological: Weakness. absent: Numbness, Headaches, Tingling - Hematologic/Lymphatic Hematologic: absent: Easy Bleeding, Easy Bruising Past Patient History - Infectious Disease Hx of Infectious Diseases: None - Tetanus Immunizations Tetanus Immunization: Unknown - Past Social History Smoking Status: Former Smoker - CARDIAC Hx Cardiac Disorders: Yes Hx Congestive Heart Failure: Yes Hx Hypertension: Yes - PULMONARY Hx Respiratory Disorders: Yes Hx Pneumonia: Yes (09-02-17) - NEUROLOGICAL Hx Neurological Disorder: No - HEENT Hx HEENT Problems: No - RENAL Hx Renal Failure: Yes - ENDOCRINE/METABOLIC Hx Endocrine Disorders: No - HEMATOLOGICAL/ONCOLOGICAL Hx Blood Disorders: Yes Hx Cirrhosis: Yes (PARACENTESIS) - INTEGUMENTARY Hx Dermatological Problems: No - MUSCULOSKELETAL/RHEUMATOLOGICAL Hx Musculoskeletal Disorders: Yes Hx Falls: Yes Hx Unsteady Gait: Yes - GASTROINTESTINAL Hx Gastrointestinal Disorders: Yes Hx Gastroesophageal Reflux: Yes - GENITOURINARY/GYNECOLOGICAL Hx Genitourinary Disorders: No - PSYCHIATRIC Hx Psychophysiologic Disorder: No Hx Substance Use: No - SURGICAL HISTORY Hx Coronary Stent: Yes - ANESTHESIA Hx Anesthesia Reactions: No Hx Malignant Hyperthermia: No Meds Allergies/Adverse Reactions: Allergies Allergy/AdvReac Type Severity Reaction Status Date / Time Beef Containing Products Allergy Severe ANAPHYLAXIS Verified 12/06/17 21:39 beef derived (bovine) Allergy Severe ANAPHYLAXIS Verified 12/06/17 21:39 banana Allergy Intermediate ITCHING Verified 12/06/17 21:39 velcro Allergy ITCHING Uncoded 12/07/17 01:43 Physical Exam - Constitutional Appears: No Acute Distress, Chronically Ill - Head Exam Head Exam: ATRAUMATIC - Eye Exam Eye Exam: EOMI, Normal appearance - ENT Exam ENT Exam: Mucous Membranes Dry - Respiratory Exam Respiratory Exam: Clear to Auscultation Bilateral, NORMAL BREATHING PATTERN - Cardiovascular Exam Cardiovascular Exam: +S1, +S2 - GI/Abdominal Exam GI & Abdominal Exam: Soft, Tenderness. absent: Distended - Extremities Exam Extremities exam: Positive for: pedal pulses present. Negative for: pedal edema - Neurological Exam Neurological exam: Alert, Oriented x3 - Skin Skin Exam: Dry Results - Vital Signs Recent Vital Signs: Last Vital Signs Temp 97.5 F L 12/06/17 12:06 Pulse 52 L 12/06/17 15:40 Resp 18 12/06/17 15:40 BP 118/61 12/06/17 15:40 Pulse Ox 100 12/06/17 15:40 - Labs Result Diagrams: 12/06/17 13:55 12/06/17 13:55 Assessment & Plan - Assessment and Plan (Free Text) Assessment: 62 year old male with pat medical history non Non-Alcoholic Liver Cirrhosis, afib s/p cardioversion, HTN, GERD, CHF, and esophageal varices presents with right lower quadrant abdominal pain which began at midnight last night. Plan: 1. Abdominal Pain -Abdominal US complete pending -CBC and CMP ordered -Chest xray pending official read -zofran -clear liquid diet -monitor for pain level -GI consulted-follow recs - Zilinski 2. Acute Kidney Injury -Creatinine at 2.4 -NS at 100mls/hr -CMP ordered in AM -Na 131, continue to monitor -K: 5.1, continue to monitor -Urine Na and Urine Cr pending 3. History Non-Alcoholic Liver Cirrhosis with associated Esophageal Varices -Abdominal US pending -Continue home Nadolol 10mg PO QD, Neutra-Phos supplementation and Zofran PRN 4. Atrial Fibrillation s/p Cardioversion -EKG showing patient in SR @ 58BPM 5. CAD s/p stent placement 09/06 -Continue home Aspirin 81mg, hold Spironolactone 100mg PO QD and Midodrine 10mg PO TID 6. CHF -hold diuretic due to possible [facility] Prophylaxis: Protonix DVT Prophylaxis: SCD's <Otto Mccloud A - Last Filed: 12/07/17 07:15> Results - Vital Signs Recent Vital Signs: Last Vital Signs Temp 97.2 F L 12/06/17 22:39 Pulse 55 L 12/06/17 22:39 Resp 20 12/06/17 22:39 BP 112/54 L 12/06/17 22:39 Pulse Ox 100 12/06/17 21:39 - Labs Result Diagrams: 12/06/17 13:55 12/06/17 13:55 Labs: Laboratory Results - last 24 hr 12/06/17 12/06/17 12/06/17 20:15 21:16 21:36 POC Glucose (mg/dL) 179 H Lactate Dehydrogenase 405 Total Creatine Kinase 31 L Troponin I 0.02 D Ur Random Creatinine 22 Ur Random Sodium 100 12/07/17 03:30 POC Glucose (mg/dL) Lactate Dehydrogenase 344 Total Creatine Kinase 37 Troponin I 0.03 D Ur Random Creatinine Ur Random Sodium Attending/Attestation - Attestation I have personally seen and examined this patient.: Yes I have fully participated in the care of the patient.: Yes I have reviewed all pertinent clinical information: Yes Notes (Text): 12/07/17 62 year old male with past medical history of cirrhosis, afib s/p cardioversion , hypertension and esophageal varices who presents with abdominal pain and diarrhea. US abdomen is ordered to assess ascites. GI evaluation is requested. Continue with zofran and protonix. Continue with liquid diet for now. He also has acute kidney injury. Continue with IVF and hold diuretics. Will continue to monitor kidney function closely. Otto Mccloud MD Hospitalist.
[2017-12-06] MEDS: Potassium & Sodium Phosphate PO SCH (17:40)
[2017-12-06 21:01] LABS: TROPONIN I 0.02 ng/mL
[2017-12-06 21:30] LABS: CREATININE,RANDOM URINE 22 mg/dL
--- NOTE | 2017-12-06 21:37 | US ---
EXAM: US Abdomen Complete CLINICAL HISTORY: 62 years old, male; Pain; Abdominal pain; Generalized TECHNIQUE: Real-time ultrasound of the abdomen (complete) with image documentation. COMPARISON: US - ABDOMEN COMPLETE 2017-10-16 08:58 FINDINGS: Liver: Lobulated contour. Diminutive in size. Fatty infiltration. No discrete mass. No intrahepatic ductal dilatation. Gallbladder: No gallstones. 0.52 cm wall thickness. No sonographic Ochoa's sign. Common bile duct: No dilatation. No stones. Pancreas: Obscured by overlying bowel gas. Kidneys: Normal echogenicity. 0.7 cm left renal calculus. No hydronephrosis. Spleen: No splenomegaly. Aorta: Unremarkable. No aneurysm. Inferior vena cava: Unremarkable. Free fluid: Moderate free fluid within abdomen. IMPRESSION: 1. Cirrhosis with ascites. 2. Gallbladder wall thickening, nonspecific. 3. Incidental/non-acute findings are described above.
[2017-12-06] MEDS ORDERED: Morphine 2 mg/ml ISec IVP STA (22:33)
[2017-12-06] MEDS ORDERED: Influenza Vaccine 60 mcg/0.5 mL SYR (4YR UP) IM ONE (22:59)
[2017-12-06] MEDS ORDERED: Pneumococcal 23-Valent Vaccine IM ONE (22:59)
[2017-12-07] MEDS: Sodium Chloride 0.9% 1,000 ML IV SCH (02:36)
[2017-12-07 04:36] LABS: TROPONIN I 0.03 ng/mL
--- NOTE | 2017-12-07 07:56 | CP.PCM.CON ---
<Boo Hidalgo - Last Filed: 12/07/17 09:50> History of Present Illness - History of Present Illness History of Present Illness: GI Consult note: 62 M with past medical history of decompensated cryptogenic cirrhosis, complicated by esophageal varices with prior hemmorhage s/p EVL 2 months ago, ascites with no hx of SBP and last paracenetsis 2 weeks ago, hepatic encephalopathy currently on laculose and Rifaximin , CAD s/p stent, Afib s/p cardioversion, HTN, GERD, CHF, presents with abdominal pain. Pt states that his abdominal started 1 day ago and has gotten progressively worse. The pain is located in the RLQ, and is intermittent. He describes the pain as crampy, non radiating and 10/10 in severity at its worse. Patient states that the pain is associated with 2 bouts of nausea and NBNB vomiting. He also complains of nonbloody diarrhea x 2. He has tried taking peptobismol at home with no relief. He denies any sick contacts or recent travel. 12 Point ROS performed and negative other than stated above. PMH: decompensated cryptogenic cirrhosis, complicated by esophageal varices with prior hemmorhage s/p EVL 2 months ago, ascites with no hx of SBP and last paracenetsis 2 weeks ago, hepatic encephalopathy currently on laculose and Rifaximin , CAD s/p stent, Afib s/p cardioversion, HTN, GERD, CHF SH: Inguinal hernia repair Allergies: Beef products, banana Med: refer to [facility] Social History: Denies alcohol, drug used; Former smoker, quit 1.5 years ago Family History: Mother with DM, heart disease; Father with [place] Endo Hx: EGD on 10/06/17 - esophageal varices and s/p EVL Review of Systems - Review of Systems All systems: reviewed and no additional remarkable complaints except Past Patient History - Infectious Disease Hx of Infectious Diseases: None - Tetanus Immunizations Tetanus Immunization: Unknown - Past Social History Smoking Status: Former Smoker - CARDIAC Hx Cardiac Disorders: Yes Hx Congestive Heart Failure: Yes Hx Hypertension: Yes - PULMONARY Hx Respiratory Disorders: Yes Hx Pneumonia: Yes (09-02-17) - NEUROLOGICAL Hx Neurological Disorder: No - HEENT Hx HEENT Problems: No - RENAL Hx Renal Failure: Yes - ENDOCRINE/METABOLIC Hx Endocrine Disorders: No - HEMATOLOGICAL/ONCOLOGICAL Hx Blood Disorders: Yes Hx Cirrhosis: Yes (PARACENTESIS) - INTEGUMENTARY Hx Dermatological Problems: No - MUSCULOSKELETAL/RHEUMATOLOGICAL Hx Musculoskeletal Disorders: Yes Hx Falls: Yes Hx Unsteady Gait: Yes - GASTROINTESTINAL Hx Gastrointestinal Disorders: Yes Hx Gastroesophageal Reflux: Yes - GENITOURINARY/GYNECOLOGICAL Hx Genitourinary Disorders: No - PSYCHIATRIC Hx Psychophysiologic Disorder: No Hx Substance Use: No - SURGICAL HISTORY Hx Surgeries: Yes Hx Coronary Stent: Yes - ANESTHESIA Hx Anesthesia Reactions: No Hx Malignant Hyperthermia: No Meds Allergies/Adverse Reactions: Allergies Allergy/AdvReac Type Severity Reaction Status Date / Time Beef Containing Products Allergy Severe ANAPHYLAXIS Verified 12/06/17 21:39 beef derived (bovine) Allergy Severe ANAPHYLAXIS Verified 12/06/17 21:39 banana Allergy Intermediate ITCHING Verified 12/06/17 21:39 velcro Allergy ITCHING Uncoded 12/07/17 01:43 - Medications Medications: Current Medications Alprazolam (Xanax) 0.5 mg PO HS PRN; Protocol PRN Reason: Anxiety Ascorbic Acid (Vitamin C 500 Mg Tab) 1,000 mg PO BID [facility] Last Admin: 12/06/17 17:39 Dose: 1,000 mg Cholecalciferol (Vitamin D) 2,000 intlu PO DAILY [facility] Cyanocobalamin (Vitamin B12 1000 Mcg Tab) 1,000 mcg PO DAILY [facility] Sodium Chloride (Sodium Chloride 0.9%) 1,000 mls @ 100 mls/hr IV .Q10H [facility] Last Admin: 12/07/17 02:36 Dose: 100 mls/hr Lactulose (Enulose) 20 gm PO BID [facility] Last Admin: 12/06/17 17:42 Dose: 20 gm Midodrine (Proamatine) 10 mg PO TID [facility] Last Admin: 12/06/17 17:40 Dose: 10 mg Nadolol (Corgard) 10 mg PO DAILY [facility] Ondansetron HCl (Zofran Inj) 4 mg IVP Q6H PRN PRN Reason: Nausea/Vomiting Last Admin: 12/07/17 02:32 Dose: 4 mg Pantoprazole Sodium (Protonix Inj) 40 mg IVP DAILY [facility] Last Admin: 12/06/17 17:03 Dose: 40 mg Potassium Phos/Sodium Phos (Neutra-Phos) 2 pkt PO BID [facility] Last Admin: 12/06/17 17:40 Dose: 2 pkt Rifaximin (Xifaxan) 550 mg PO BID [facility] PRN Reason: Protocol Last Admin: 12/06/17 17:41 Dose: 550 mg Physical Exam - Constitutional Appears: No Acute Distress - Head Exam Head Exam: ATRAUMATIC, NORMOCEPHALIC - Eye Exam Eye Exam: EOMI - ENT Exam ENT Exam: Mucous Membranes Moist - Respiratory Exam Respiratory Exam: Clear to Auscultation Bilateral. absent: Rales, Wheezes - Cardiovascular Exam Cardiovascular Exam: REGULAR RHYTHM, +S1, +S2 - GI/Abdominal Exam GI & Abdominal Exam: Normal Bowel Sounds, Soft, Tenderness. absent: Distended Additional comments: Mild - Extremities Exam Extremities exam: Negative for: calf tenderness, pedal edema - Neurological Exam Neurological exam: Alert, Oriented x3 - Psychiatric Exam Psychiatric exam: Normal Affect, Normal Mood - Skin Skin Exam: Dry, Intact, Warm Results - Vital Signs Recent Vital Signs: Last Vital Signs Temp 97.2 F L 12/06/17 22:39 Pulse 55 L 12/06/17 22:39 Resp 20 12/06/17 22:39 BP 112/54 L 12/06/17 22:39 Pulse Ox 100 12/06/17 21:39 - Labs Result Diagrams: 12/07/17 07:45 12/07/17 07:45 Labs: Laboratory Results - last 24 hr 12/06/17 12/06/17 12/06/17 20:15 21:16 21:36 POC Glucose (mg/dL) 179 H Lactate Dehydrogenase 405 Total Creatine Kinase 31 L Troponin I 0.02 D Ur Random Creatinine 22 Ur Random Sodium 100 12/07/17 12/07/17 03:30 07:17 POC Glucose (mg/dL) 90 Lactate Dehydrogenase 344 Total Creatine Kinase 37 Troponin I 0.03 D Ur Random Creatinine Ur Random Sodium Assessment & Plan - Assessment and Plan (Free Text) Assessment: 62 M with past medical history of decompensated cryptogenic cirrhosis, complicated by esophageal varices with prior hemmorhage s/p EVL 2 months ago, ascites with no hx of SBP and last paracenetsis 2 weeks ago, hepatic encephalopathy currently on laculose and Rifaximin , CAD s/p stent, Afib s/p cardioversion, HTN, GERD, CHF, presents with abdominal pain and KEYUR. MELD-Na score of 23. 1. Abdominal pain 2. Acute renal failure 3. Decompensated cirrhosis 4. Esophageal varices 5. Ascites 6. Hepatic encephalopathy Plan: - D/c Lasix / Aldactone - Will start Albumin 1g/kg x 48 hours - Abdominal US with Doppler to evaluate portal/hepatic/renal vasculature - Urine electrolytes ordered - Recommend Nephrology consultation for KEYUR and 0.7cm renal calculi mon Abd US - Low Na diet - Continue lactulose/rifaxamin for HE prevention - IR consult - Recommend paracentesis as needed - D/c any PPI - Continue with b-ameya ppx therapy for recurrent bleeding as well - Low sodium diet as tolerated - H/H stable, continue to monitor - I/O and daily weights - Avoid nephrotoxic medications Pt was seen and plan discussed in detail with Dr Hodgson. <[facility] - Last Filed: 12/07/17 10:12> Meds - Medications Medications: Current Medications Albumin Human (Albumin Human 5% (12.5 Gm/250 Ml)) 25 gm IV Q8H [facility] Stop: 12/09/17 00:01 Last Admin: 12/07/17 08:43 Dose: 25 gm Alprazolam (Xanax) 0.5 mg PO HS PRN; Protocol PRN Reason: Anxiety Ascorbic Acid (Vitamin C 500 Mg Tab) 1,000 mg PO BID [facility] Last Admin: 12/07/17 09:40 Dose: 1,000 mg Cholecalciferol (Vitamin D) 2,000 intlu PO DAILY [facility] Last Admin: 12/07/17 09:39 Dose: 2,000 intlu Cyanocobalamin (Vitamin B12 1000 Mcg Tab) 1,000 mcg PO DAILY [facility] Last Admin: 12/07/17 09:40 Dose: 1,000 mcg Lactulose (Enulose) 20 gm PO BID [facility] Last Admin: 12/07/17 09:40 Dose: 20 gm Midodrine (Proamatine) 10 mg PO TID [facility] Last Admin: 12/07/17 09:39 Dose: 10 mg Nadolol (Corgard) 10 mg PO DAILY [facility] Last Admin: 12/07/17 09:39 Dose: Not Given Ondansetron HCl (Zofran Inj) 4 mg IVP Q6H PRN PRN Reason: Nausea/Vomiting Last Admin: 12/07/17 02:32 Dose: 4 mg Potassium Phos/Sodium Phos (Neutra-Phos) 2 pkt PO BID [facility] Last Admin: 12/07/17 09:39 Dose: 2 pkt Rifaximin (Xifaxan) 550 mg PO BID [facility] PRN Reason: Protocol Last Admin: 12/07/17 09:39 Dose: 550 mg Results - Vital Signs Recent Vital Signs: Last Vital Signs Temp 97.8 F 12/07/17 06:00 Pulse 52 L 12/07/17 06:00 Resp 20 12/07/17 06:00 BP 107/51 L 12/07/17 09:39 Pulse Ox 95 12/07/17 06:00 - Labs Result Diagrams: 12/07/17 07:45 12/07/17 07:45 Labs: Laboratory Results - last 24 hr 12/06/17 12/06/17 12/06/17 20:15 21:16 21:36 WBC RBC Hgb Hct MCV MCH MCHC RDW Plt Count MPV Gran % Lymph % (Auto) [place] % (Auto) Eos % (Auto) Baso % (Auto) Gran # Lymph # [place] # Eos # Baso # Sodium Potassium Chloride Carbon Dioxide Anion Gap BUN Creatinine Est GFR ( Amer) Est GFR (Non-Af Amer) POC Glucose (mg/dL) 179 H Random Glucose Calcium Total Bilirubin AST ALT Alkaline Phosphatase Lactate Dehydrogenase 405 Total Creatine Kinase 31 L Troponin I 0.02 D Total Protein Albumin Globulin Albumin/Globulin Ratio Ur Random Creatinine 22 Ur Random Sodium 100 12/07/17 12/07/17 12/07/17 03:30 07:17 07:45 WBC 6.9 RBC 3.22 L Hgb 9.8 L Hct 29.8 L MCV 92.5 MCH 30.4 MCHC 32.9 RDW 17.5 H Plt Count 161 MPV 9.4 Gran % 51.6 Lymph % (Auto) 27.5 [place] % (Auto) 14.4 H Eos % (Auto) 5.2 H Baso % (Auto) 1.3 Gran # 3.54 Lymph # 1.9 [place] # 1.0 H Eos # 0.4 Baso # 0.09 Sodium Potassium Chloride Carbon Dioxide Anion Gap BUN Creatinine Est GFR ( Amer) Est GFR (Non-Af Amer) POC Glucose (mg/dL) 90 Random Glucose Calcium Total Bilirubin AST ALT Alkaline Phosphatase Lactate Dehydrogenase 344 Total Creatine Kinase 37 Troponin I 0.03 D Total Protein Albumin Globulin Albumin/Globulin Ratio Ur Random Creatinine Ur Random Sodium 12/07/17 07:45 WBC RBC Hgb Hct MCV MCH MCHC RDW Plt Count MPV Gran % Lymph % (Auto) [place] % (Auto) Eos % (Auto) Baso % (Auto) Gran # Lymph # [place] # Eos # Baso # Sodium 134 Potassium 4.5 Chloride 99 Carbon Dioxide 23 Anion Gap 17 BUN 38 H Creatinine 2.3 H Est GFR ( Amer) 35 Est GFR (Non-Af Amer) 29 POC Glucose (mg/dL) Random Glucose 83 Calcium 9.3 Total Bilirubin 2.2 H AST 55 ALT 35 Alkaline Phosphatase 268 H Lactate Dehydrogenase Total Creatine Kinase Troponin I Total Protein 8.5 H Albumin 3.3 Globulin 5.3 Albumin/Globulin Ratio 0.6 L Ur Random Creatinine Ur Random Sodium Attending/Attestation - Attestation I have personally seen and examined this patient.: Yes I have fully participated in the care of the patient.: Yes I have reviewed all pertinent clinical information: Yes Notes (Text): 12/07/17 09:51 Patient seen and examined with GI fellow and center medical director at bedside. This is a 62 yr old M with past medical history of decompensated TRUJILLO ? cirrhosis, complicated by esophageal varices with prior hemmorhage s/p EVL 2 months ago, ascites with no hx of SBP and last paracenetsis 2 weeks ago, hepatic encephalopathy currently on laculose and rifaximin, CAD s/p stent, Afib s/p cardioversion, not on anti coagulation, HTN, GERD, CHF, presents with abdominal pain and new onset KEYUR. MELD-Na score of 23. - Pain likely due to SBP- will send ascitic fluid for cytology and culture - Discontinue diuretics for new onset azotemia - Abdominal doppler to rule out PVT - Low sodium and high protein diet - Urine electrolytes - Abdominal sonogram reveals ureteral calculi - Strict I/O - Avoid nephrotoxic medications - Albumin 1 gm/kg for 3 days - 500 cc of NS challenge given - H/Hct stable - Continue rifaximin and lactulose po - titrate to 2 BM/day - Will follow closely - Needs outpatient follow up closely
[2017-12-07 08:08] LABS: BASO # 0.09 K/mm3 (0.0-2.0); BASO % 1.3 % (0.0-3.0); EOS # 0.4 (0.0-0.7); EOS % 5.2 % (1.5-5.0); GRAN # 3.54 (1.4-6.5); GRAN % 51.6 % (50.0-68.0); HEMOGLOBIN 9.8 g/dL (14.0-18.0); LYMPH # 1.9 (1.2-3.4); LYMPH % 27.5 % (22.0-35.0); MEAN CELL VOLUME 92.5 fl (80.0-105.0); MEAN CORPUSCULAR HEMOGLOBIN 30.4 pg (25.0-35.0); MEAN CORPUSCULAR HGB CONC 32.9 g/dl (31.0-37.0); MEAN PLATELET VOLUME 9.4 fl (7.0-11.0); MONO % 14.4 % (1.0-6.0); RBC 3.22 10^6/uL (3.5-6.1); RED CELL DISTRIBUTION WIDTH 17.5 % (11.5-14.5); WHITE BLOOD COUNT 6.9 10^3/ul (4.5-11.0)
[2017-12-07 08:23] LABS: ALBUMIN 3.3 g/dL (3.0-4.8); CALCIUM 9.3 mg/dL (8.4-10.5)
[2017-12-07] MEDS: Albumin Human 5% (12.5 gm/250 ml) IV SCH ×2 (08:43→17:44)
[2017-12-07 08:49] LABS: ALB/GLOB RATIO 0.6 (1.1-1.8)
[2017-12-07] MEDS: Cholecalciferol 1,000 INTLU TAB PO SCH (09:39)
[2017-12-07] MEDS: Potassium & Sodium Phosphate PO SCH ×2 (09:39→17:57)
--- NOTE | 2017-12-07 13:50 | CP.PCM.PN ---
Addendum entered and electronically signed by Obie Velazquez DO 12/07/17 13:58: GI consulted is Dr. Paige Original Note: <Obie Velazquez - Last Filed: 12/07/17 13:57> Subjective - Date & Time of Evaluation Date of Evaluation: 12/07/17 Time of Evaluation: 06:00 - Subjective Subjective: Patient seen and evaluated bedside. No acute issues overnight, however patient complained of some left sided back pain which resolved with pain medication. Slight abdominal pain, but denies any nausea, vomiting or any other complaints at this time. Objective - Vital Signs/Intake and Output Vital Signs (last 24 hours): Temp Pulse Resp BP Pulse Ox 97.8 F 52 L 20 107/51 L 95 12/07/17 06:00 12/07/17 06:00 12/07/17 06:00 12/07/17 09:39 12/07/17 06:00 Intake and Output: 12/07/17 12/07/17 06:59 18:59 Intake Total 1410 Output Total 400 Balance 1010 - Medications Medications: Current Medications Albumin Human (Albumin Human 5% (12.5 Gm/250 Ml)) 25 gm IV Q8H [facility] Stop: 12/09/17 00:01 Last Admin: 12/07/17 08:43 Dose: 25 gm Alprazolam (Xanax) 0.5 mg PO HS PRN; Protocol PRN Reason: Anxiety Ascorbic Acid (Vitamin C 500 Mg Tab) 1,000 mg PO BID [facility] Last Admin: 12/07/17 09:40 Dose: 1,000 mg Cholecalciferol (Vitamin D) 2,000 intlu PO DAILY [facility] Last Admin: 12/07/17 09:39 Dose: 2,000 intlu Cyanocobalamin (Vitamin B12 1000 Mcg Tab) 1,000 mcg PO DAILY [facility] Last Admin: 12/07/17 09:40 Dose: 1,000 mcg Lactulose (Enulose) 20 gm PO BID [facility] Last Admin: 12/07/17 09:40 Dose: 20 gm Midodrine (Proamatine) 10 mg PO TID [facility] Last Admin: 12/07/17 09:39 Dose: 10 mg Nadolol (Corgard) 10 mg PO DAILY [facility] Last Admin: 12/07/17 09:39 Dose: Not Given Ondansetron HCl (Zofran Inj) 4 mg IVP Q6H PRN PRN Reason: Nausea/Vomiting Last Admin: 12/07/17 02:32 Dose: 4 mg Potassium Phos/Sodium Phos (Neutra-Phos) 2 pkt PO BID [facility] Last Admin: 12/07/17 09:39 Dose: 2 pkt Rifaximin (Xifaxan) 550 mg PO BID [facility] PRN Reason: Protocol Last Admin: 12/07/17 09:39 Dose: 550 mg - Labs Labs: 12/07/17 07:45 12/07/17 07:45 PT 14.8 SECONDS (9.4-12.5) H 12/06/17 13:55 INR 1.29 (0.93-1.08) H 12/06/17 13:55 APTT 36.2 Seconds (25.1-36.5) 12/06/17 13:55 - Constitutional Appears: Chronically Ill - Head Exam Head Exam: NORMAL INSPECTION - Eye Exam Eye Exam: EOMI, Normal appearance - ENT Exam ENT Exam: Mucous Membranes Dry - Neck Exam Neck Exam: absent: Lymphadenopathy, Tenderness - Respiratory Exam Respiratory Exam: Clear to Ausculation Bilateral, NORMAL BREATHING PATTERN - Cardiovascular Exam Cardiovascular Exam: REGULAR RHYTHM - GI/Abdominal Exam GI & Abdominal Exam: Soft. absent: Distended - Neurological Exam Neurological Exam: Alert, Awake, Oriented x3 - Skin Skin Exam: Pallor Assessment and Plan - Assessment and Plan (Free Text) Assessment: 62 year old male with pat medical history non Non-Alcoholic Liver Cirrhosis, afib s/p cardioversion, HTN, GERD, CHF, and esophageal varices presents with right lower quadrant abdominal pain. Patient being monitored for possible ascites. Plan: 1. Abdominal Pain -Abdominal US: moderate free fluid with abdomen, likely ascites from cirrhosis, 0.7cm renal calculi -CBC and CMP reviewed -Chest xray showing persistent right pleural effusion -zofran -clear liquid diet -monitor for pain level -GI consulted-follow recs - Maryse -started Albumin 1g/kg x 48 hours -low Na diet recommended -Ir consulted-chandrika weber for possible paracentesis 2. Acute Kidney Injury -Creatinine at 2.3 -NS at 100mls/hr -CMP ordered in AM -Na 134, continue to monitor -K: 4.5, continue to monitor -Urine Na and Urine Cr pending 3. History Non-Alcoholic Liver Cirrhosis with associated Esophageal Varices -Abdominal US: moderate free fluid with abdomen, likely ascites from cirrhosis -Continue home Nadolol 10mg PO QD, Neutra-Phos supplementation and Zofran PRN 4. Atrial Fibrillation s/p Cardioversion -EKG showing patient in SR @ 58BPM 5. CAD s/p stent placement 09/06 -Continue home Aspirin 81mg, hold Spironolactone 100mg PO QD , continue Midodrine 10mg PO TID 6. CHF -hold diuretic due to possible KEYUR GI Prophylaxis: Protonix DVT Prophylaxis: SCD's <Otto Mccloud - Last Filed: 12/07/17 14:19> Objective - Vital Signs/Intake and Output Vital Signs (last 24 hours): Temp Pulse Resp BP Pulse Ox 97.8 F 52 L 20 107/51 L 95 12/07/17 06:00 12/07/17 06:00 12/07/17 06:00 12/07/17 09:39 12/07/17 06:00 Intake and Output: 12/07/17 12/07/17 06:59 18:59 Intake Total 1410 Output Total 400 Balance 1010 - Medications Medications: Current Medications Albumin Human (Albumin Human 5% (12.5 Gm/250 Ml)) 25 gm IV Q8H [facility] Stop: 12/09/17 00:01 Last Admin: 12/07/17 08:43 Dose: 25 gm Alprazolam (Xanax) 0.5 mg PO HS PRN; Protocol PRN Reason: Anxiety Ascorbic Acid (Vitamin C 500 Mg Tab) 1,000 mg PO BID [facility] Last Admin: 12/07/17 09:40 Dose: 1,000 mg Cholecalciferol (Vitamin D) 2,000 intlu PO DAILY [facility] Last Admin: 12/07/17 09:39 Dose: 2,000 intlu Cyanocobalamin (Vitamin B12 1000 Mcg Tab) 1,000 mcg PO DAILY [facility] Last Admin: 12/07/17 09:40 Dose: 1,000 mcg Lactulose (Enulose) 20 gm PO BID [facility] Last Admin: 12/07/17 09:40 Dose: 20 gm Midodrine (Proamatine) 10 mg PO TID [facility] Last Admin: 12/07/17 09:39 Dose: 10 mg Nadolol (Corgard) 10 mg PO DAILY [facility] Last Admin: 12/07/17 09:39 Dose: Not Given Ondansetron HCl (Zofran Inj) 4 mg IVP Q6H PRN PRN Reason: Nausea/Vomiting Last Admin: 12/07/17 02:32 Dose: 4 mg Potassium Phos/Sodium Phos (Neutra-Phos) 2 pkt PO BID [facility] Last Admin: 12/07/17 09:39 Dose: 2 pkt Rifaximin (Xifaxan) 550 mg PO BID [facility] PRN Reason: Protocol Last Admin: 12/07/17 09:39 Dose: 550 mg - Labs Labs: 12/07/17 07:45 12/07/17 07:45 PT 14.8 SECONDS (9.4-12.5) H 12/06/17 13:55 INR 1.29 (0.93-1.08) H 12/06/17 13:55 APTT 36.2 Seconds (25.1-36.5) 12/06/17 13:55 Attending/Attestation - Attestation I have personally seen and examined this patient.: Yes I have fully participated in the care of the patient.: Yes I have reviewed all pertinent clinical information, including history, physical exam and plan: Yes Notes (Text): 12/07/17 14:17 62 year old male with past medical history of cirrhosis, afib s/p cardioversion , hypertension and esophageal varices who presented with abdominal pain. US abdomen reviewed which showed moderate ascites. IR evaluation is requested to assess for possible paracentesis. GI evaluation was appreciated who started iv albumin. US abdomen doppler study is ordered. He also has acute kidney injury. Continue with IVF while holding diuretics. Will continue to monitor kidney function closely. Otto Mccloud MD Hospitalist.
[2017-12-07 15:59] LABS: CREATININE,RANDOM URINE 44 mg/dL
--- NOTE | 2017-12-07 19:13 | US ---
PROCEDURE: Portal vein duplex ultrasound. CLINICAL HISTORY: Cirrhosis. Deteriorating liver function. Evaluate for portal vein thrombosis. PHYSICIAN(S): Franko Crespo M.D. FINDINGS: There is a large amount of ascites in the upper abdomen. The liver is atrophic with a nodular margin and heterogeneous in echotexture. This is consistent with cirrhosis. The extrahepatic portal vein is patent with hepatopetal flow. The hepatic artery is enlarged and patent. There is splenomegaly. IMPRESSION: 1. Patent portal vein with hepatopetal flow. 2. Large amount of ascites in the upper abdomen.
[2017-12-07] MEDS ORDERED: Morphine 2 mg/ml ISec IVP STA (23:43)
[2017-12-07] MEDS ORDERED: Morphine 2 mg/ml ISec IVP ONE (23:45)
[2017-12-08] MEDS: Albumin Human 5% (12.5 gm/250 ml) IV SCH ×3 (00:24→17:28)
[2017-12-08 06:53] LABS: BASO # 0.05 K/mm3 (0.0-2.0); BASO % 1.1 % (0.0-3.0); EOS # 0.3 (0.0-0.7); EOS % 5.6 % (1.5-5.0); GRAN # 1.81 (1.4-6.5); GRAN % 40.9 % (50.0-68.0); LYMPH # 1.5 (1.2-3.4); LYMPH % 33.3 % (22.0-35.0); MEAN CELL VOLUME 93.8 fl (80.0-105.0); MEAN CORPUSCULAR HEMOGLOBIN 30.9 pg (25.0-35.0); MEAN CORPUSCULAR HGB CONC 32.9 g/dl (31.0-37.0); MEAN PLATELET VOLUME 9.8 fl (7.0-11.0); MONO # 0.9 (0.1-0.6); MONO % 19.1 % (1.0-6.0); RBC 2.59 10^6/uL (3.5-6.1); RED CELL DISTRIBUTION WIDTH 18.1 % (11.5-14.5); WHITE BLOOD COUNT 4.4 10^3/ul (4.5-11.0)
--- NOTE | 2017-12-08 07:27 | CP.PCM.PN ---
<Boo Hidalgo - Last Filed: 12/08/17 09:02> Subjective - Date & Time of Evaluation Date of Evaluation: 12/08/17 Time of Evaluation: 06:50 - Subjective Subjective: GI progress note: Pt seen and examined at bedside. No acute events overnight. Pt still complains of minor abd pain 5/10 in severity accompanied with some nausea. Denies any vomiting. No other complaints. 12 Point ROS performed and negative other than stated above. Objective - Vital Signs/Intake and Output Vital Signs (last 24 hours): Temp Pulse Resp BP Pulse Ox 97.7 F 67 20 110/58 L 96 12/07/17 18:00 12/07/17 18:00 12/07/17 18:00 12/07/17 18:16 12/07/17 18:00 Intake and Output: 12/08/17 12/08/17 06:59 18:59 Intake Total 720 Output Total 300 Balance 420 - Medications Medications: Current Medications Albumin Human (Albumin Human 5% (12.5 Gm/250 Ml)) 25 gm IV Q8H [facility] Stop: 12/09/17 00:01 Last Admin: 12/08/17 00:24 Dose: 25 gm Alprazolam (Xanax) 0.5 mg PO HS PRN; Protocol PRN Reason: Anxiety Last Admin: 12/07/17 20:55 Dose: 0.5 mg Ascorbic Acid (Vitamin C 500 Mg Tab) 1,000 mg PO BID [facility] Last Admin: 12/07/17 17:57 Dose: 1,000 mg Cholecalciferol (Vitamin D) 2,000 intlu PO DAILY [facility] Last Admin: 12/07/17 09:39 Dose: 2,000 intlu Cyanocobalamin (Vitamin B12 1000 Mcg Tab) 1,000 mcg PO DAILY [facility] Last Admin: 12/07/17 09:40 Dose: 1,000 mcg Lactulose (Enulose) 20 gm PO BID [facility] Last Admin: 12/07/17 17:57 Dose: 20 gm Midodrine (Proamatine) 10 mg PO TID [facility] Last Admin: 12/07/17 17:57 Dose: 10 mg Nadolol (Corgard) 10 mg PO DAILY [facility] Last Admin: 12/07/17 09:39 Dose: Not Given Ondansetron HCl (Zofran Inj) 4 mg IVP Q6H PRN PRN Reason: Nausea/Vomiting Last Admin: 12/07/17 02:32 Dose: 4 mg Potassium Phos/Sodium Phos (Neutra-Phos) 2 pkt PO BID [facility] Last Admin: 12/07/17 17:57 Dose: 2 pkt Rifaximin (Xifaxan) 550 mg PO BID [facility] PRN Reason: Protocol Last Admin: 12/07/17 17:57 Dose: 550 mg - Labs Labs: 12/07/17 07:45 12/07/17 07:45 PT 14.8 SECONDS (9.4-12.5) H 12/06/17 13:55 INR 1.29 (0.93-1.08) H 12/06/17 13:55 APTT 36.2 Seconds (25.1-36.5) 12/06/17 13:55 - Constitutional Appears: No Acute Distress - Head Exam Head Exam: ATRAUMATIC, NORMOCEPHALIC - Eye Exam Eye Exam: EOMI - ENT Exam ENT Exam: Mucous Membranes Moist - Respiratory Exam Respiratory Exam: Clear to Ausculation Bilateral. absent: Rales, Wheezes - Cardiovascular Exam Cardiovascular Exam: REGULAR RHYTHM, +S1, +S2 - GI/Abdominal Exam GI & Abdominal Exam: Soft. absent: Distended, Tenderness - Extremities Exam Extremities Exam: absent: Calf Tenderness, Pedal Edema - Neurological Exam Neurological Exam: Alert, Awake, Oriented x3 - Psychiatric Exam Psychiatric exam: Normal Affect, Normal Mood - Skin Skin Exam: Dry, Intact, Warm Assessment and Plan - Assessment and Plan (Free Text) Assessment: 62 M with past medical history of decompensated cryptogenic cirrhosis, complicated by esophageal varices with prior hemmorhage s/p EVL 2 months ago, ascites with no hx of SBP and last paracenetsis 2 weeks ago, hepatic encephalopathy currently on laculose and Rifaximin , CAD s/p stent, Afib s/p cardioversion, HTN, GERD, CHF, presents with abdominal pain and KEYUR. MELD-Na score of 23 upon admission. 1. Abdominal pain 2. Acute renal failure 3. Decompensated cirrhosis 4. Esophageal varices 5. Ascites 6. Hepatic encephalopathy Plan: - Recommend IR consult for a diagnostic paracentesis - Cont Albumin 1g/kg x 3 days - Abdominal US with Doppler showed patent portal vein with hepatopetal flow. Large amount of ascites in the upper abdomen - Urine electrolytes - Urine Na 63, Urine Cr 44. Fena 2.5% indicating an intrinsic cause; FeUrea 56.7% indicating Intrinsic renal disease - D/c Lasix / Aldactone for new onset azotemia - Recommend Nephrology consultation for KEYUR - Low Na and high protein diet as tolerated - Increase lactulose 20mg BID to 20mg TID - titrate to 2 BMs per day - Lactulose/ Rifaxamin for HE prevention - Discontinue any PPI - Continue with b-ameya ppx therapy for recurrent bleeding as well - H/H stable, continue to monitor - I/O and daily weights - Avoid nephrotoxic medications Pt was seen and plan discussed in detail with Dr. Paige <Pedro Paige - Last Filed: 12/08/17 17:29> Objective - Vital Signs/Intake and Output Vital Signs (last 24 hours): Temp Pulse Resp BP Pulse Ox 97.6 F 57 L 20 97/54 L 99 12/08/17 16:00 12/08/17 16:00 12/08/17 16:00 12/08/17 16:00 12/08/17 16:00 Intake and Output: 12/08/17 12/08/17 06:59 18:59 Intake Total 720 660 Output Total 300 Balance 420 660 - Medications Medications: Current Medications Albumin Human (Albumin Human 5% (12.5 Gm/250 Ml)) 25 gm IV Q8H [facility] Stop: 12/09/17 00:01 Last Admin: 12/08/17 09:16 Dose: 25 gm Alprazolam (Xanax) 0.5 mg PO HS PRN; Protocol PRN Reason: Anxiety Last Admin: 12/07/17 20:55 Dose: 0.5 mg Ascorbic Acid (Vitamin C 500 Mg Tab) 1,000 mg PO BID [facility] Last Admin: 12/08/17 09:31 Dose: 1,000 mg Cholecalciferol (Vitamin D) 2,000 intlu PO DAILY [facility] Last Admin: 12/08/17 09:30 Dose: 2,000 intlu Cyanocobalamin (Vitamin B12 1000 Mcg Tab) 1,000 mcg PO DAILY [facility] Last Admin: 12/08/17 09:28 Dose: 1,000 mcg Famotidine (Pepcid) 20 mg PO BID [facility] Lactulose (Enulose) 20 gm PO TID [facility] Last Admin: 12/08/17 13:30 Dose: 20 gm Midodrine (Proamatine) 10 mg PO TID [facility] Last Admin: 12/08/17 13:30 Dose: 10 mg Nadolol (Corgard) 10 mg PO DAILY [facility] Last Admin: 12/08/17 09:30 Dose: Not Given Ondansetron HCl (Zofran Inj) 4 mg IVP Q6H PRN PRN Reason: Nausea/Vomiting Last Admin: 12/07/17 02:32 Dose: 4 mg Potassium Phos/Sodium Phos (Neutra-Phos) 2 pkt PO BID [facility] Last Admin: 12/08/17 09:29 Dose: 2 pkt Rifaximin (Xifaxan) 550 mg PO BID [facility] PRN Reason: Protocol Last Admin: 12/08/17 09:32 Dose: 550 mg - Labs Labs: 12/08/17 05:45 12/08/17 05:45 PT 16.4 SECONDS (9.4-12.5) H 12/08/17 08:00 INR 1.42 (0.93-1.08) H 12/08/17 08:00 APTT 36.2 Seconds (25.1-36.5) 12/06/17 13:55 Attending/Attestation - Attestation I have personally seen and examined this patient.: Yes I have fully participated in the care of the patient.: Yes I have reviewed all pertinent clinical information, including history, physical exam and plan: Yes Notes (Text): 12/08/17 17:27 62 year old male with h/o decompensated cirrhosis, CAD,Afib, CHF a/w abdominal pain, ascites, and renal insufficiency. 1. Ascites 2. Acute renal failure 3. Cirrhosis 4. Esophageal varices 5. Hepatic encephalopathy Plan: - await diagnostic paracentesis - continue albumin IV - hold diuretics - continue lactulose/rifaxamin - diet as tolerated - continue bb for bleeding prophylaxis - recommend consult with nephrology for renal insufficiency
[2017-12-08 07:56] LABS: ALB/GLOB RATIO 0.7 (1.1-1.8); ALBUMIN 3.2 g/dL (3.0-4.8); CALCIUM 9.1 mg/dL (8.4-10.5)
--- NOTE | 2017-12-08 08:18 | CP.PCM.PN ---
<Sandi Velásquez - Last Filed: 12/08/17 14:47> Subjective - Date & Time of Evaluation Date of Evaluation: 12/08/17 Time of Evaluation: 07:45 - Subjective Subjective: PGY-2 [place] note for hospitalist service patient seen and examined at bedside. No acute distress. No acute acute events overnight. Patient states that his abd pain has improved but he continues to have back pain. He also reports difficulty sleeping samir to noise. He denies nausea, vomiting, diarrhea, constipation. he states he is hungry and would like to eat. Objective - Vital Signs/Intake and Output Vital Signs (last 24 hours): Temp Pulse Resp BP Pulse Ox 97.7 F 67 20 110/58 L 96 12/07/17 18:00 12/07/17 18:00 12/07/17 18:00 12/07/17 18:16 12/07/17 18:00 Intake and Output: 12/08/17 12/08/17 06:59 18:59 Intake Total 720 Output Total 300 Balance 420 - Medications Medications: Current Medications Albumin Human (Albumin Human 5% (12.5 Gm/250 Ml)) 25 gm IV Q8H [facility] Stop: 12/09/17 00:01 Last Admin: 12/08/17 00:24 Dose: 25 gm Alprazolam (Xanax) 0.5 mg PO HS PRN; Protocol PRN Reason: Anxiety Last Admin: 12/07/17 20:55 Dose: 0.5 mg Ascorbic Acid (Vitamin C 500 Mg Tab) 1,000 mg PO BID [facility] Last Admin: 12/07/17 17:57 Dose: 1,000 mg Cholecalciferol (Vitamin D) 2,000 intlu PO DAILY [facility] Last Admin: 12/07/17 09:39 Dose: 2,000 intlu Cyanocobalamin (Vitamin B12 1000 Mcg Tab) 1,000 mcg PO DAILY [facility] Last Admin: 12/07/17 09:40 Dose: 1,000 mcg Lactulose (Enulose) 20 gm PO BID [facility] Last Admin: 12/07/17 17:57 Dose: 20 gm Midodrine (Proamatine) 10 mg PO TID [facility] Last Admin: 12/07/17 17:57 Dose: 10 mg Nadolol (Corgard) 10 mg PO DAILY [facility] Last Admin: 01/17/18 09:39 Dose: Not Given Ondansetron HCl (Zofran Inj) 4 mg IVP Q6H PRN PRN Reason: Nausea/Vomiting Last Admin: 12/07/17 02:32 Dose: 4 mg Potassium Phos/Sodium Phos (Neutra-Phos) 2 pkt PO BID [facility] Last Admin: 12/07/17 17:57 Dose: 2 pkt Rifaximin (Xifaxan) 550 mg PO BID [facility] PRN Reason: Protocol Last Admin: 12/07/17 17:57 Dose: 550 mg - Labs Labs: 12/08/17 05:45 12/08/17 05:45 PT 14.8 SECONDS (9.4-12.5) H 12/06/17 13:55 INR 1.29 (0.93-1.08) H 12/06/17 13:55 APTT 36.2 Seconds (25.1-36.5) 12/06/17 13:55 - Constitutional Appears: No Acute Distress - Head Exam Head Exam: ATRAUMATIC, NORMAL INSPECTION, NORMOCEPHALIC - Eye Exam Eye Exam: EOMI, Normal appearance - ENT Exam ENT Exam: Mucous Membranes Moist - Respiratory Exam Respiratory Exam: Clear to Ausculation Bilateral, NORMAL BREATHING PATTERN. absent: Rhonchi, Wheezes, Respiratory Distress - Cardiovascular Exam Cardiovascular Exam: REGULAR RHYTHM. absent: Tachycardia, Murmur - GI/Abdominal Exam GI & Abdominal Exam: Distended (acsites), Soft, Normal Bowel Sounds - Extremities Exam Extremities Exam: Normal Inspection. absent: Pedal Edema - Neurological Exam Neurological Exam: Alert, Awake, Oriented x3 - Skin Skin Exam: Dry, Intact, Normal Color, Warm Assessment and Plan - Assessment and Plan (Free Text) Assessment: 62 year old male with pat medical history non Non-Alcoholic Liver Cirrhosis, afib s/p cardioversion, HTN, GERD, CHF, and esophageal varices presents with right lower quadrant abdominal pain and back pain.Patient underwent US guided parcentesis, 5L removed Plan: 1. Abdominal Pain - most likely due to ascites with possible sbp - patient recent had ascites drained on 11/23, 8 L removed -Abdominal US: moderate free fluid with abdomen, likely ascites from cirrhosis, 0.7cm renal calculi - abd duplex showed patent portal vein, large ascites - Chest xray showing persistent right pleural effusion - patient underwnet US guided parcentesis, 5L removed - zofran prn - monitor for pain level - GI follow, Dr. Paige, recommend albumin, stop lasix/ aldactone, increased lactulose, stop PPI - continue Albumin 1g/kg - diet advanced - Ir following for paracentesis 2. Acute Kidney Injury - Creatinine improved - urine elctrolytes reviewed, Feurea was 57.8%, indicating intrinsic renal disease 3. History Non-Alcoholic Liver Cirrhosis with associated Esophageal Varices - Abdominal US: moderate free fluid with abdomen, likely ascites from cirrhosis - abd duplex showed patent portal vein, large ascites - s/p paracentesos - meld score 21 - continue rifaximin 550 bid per home medication - lactulose increased to 20mg tid - Continue home Nadolol 10mg PO QD, Neutra-Phos supplementation - Zofran PRN 4. Atrial Fibrillation s/p Cardioversion - EKG showing patient in SR @ 58BPM - continue to monitor 5. CAD s/p stent placement 09/06 - Continue home Aspirin 81mg, hold Spironolactone 100mg PO QD - continue home med Midodrine 10mg PO TID 6. CHF - hold diuretic due to KEYUR GI Prophylaxis: pepcid DVT Prophylaxis: SCD's <Otto Mccloud - Last Filed: 12/08/17 15:20> Objective - Vital Signs/Intake and Output Vital Signs (last 24 hours): Temp Pulse Resp BP Pulse Ox 97.6 F 59 L 18 93/50 L 99 12/08/17 09:08 12/08/17 09:30 12/08/17 09:08 12/08/17 09:30 12/08/17 09:08 Intake and Output: 12/08/17 12/08/17 06:59 18:59 Intake Total 720 660 Output Total 300 Balance 420 660 - Medications Medications: Current Medications Albumin Human (Albumin Human 5% (12.5 Gm/250 Ml)) 25 gm IV Q8H [facility] Stop: 12/09/17 00:01 Last Admin: 12/08/17 09:16 Dose: 25 gm Alprazolam (Xanax) 0.5 mg PO HS PRN; Protocol PRN Reason: Anxiety Last Admin: 12/07/17 20:55 Dose: 0.5 mg Ascorbic Acid (Vitamin C 500 Mg Tab) 1,000 mg PO BID [facility] Last Admin: 12/08/17 09:31 Dose: 1,000 mg Cholecalciferol (Vitamin D) 2,000 intlu PO DAILY [facility] Last Admin: 12/08/17 09:30 Dose: 2,000 intlu Cyanocobalamin (Vitamin B12 1000 Mcg Tab) 1,000 mcg PO DAILY [facility] Last Admin: 12/08/17 09:28 Dose: 1,000 mcg Famotidine (Pepcid) 20 mg PO BID [facility] Lactulose (Enulose) 20 gm PO TID [facility] Last Admin: 12/08/17 13:30 Dose: 20 gm Midodrine (Proamatine) 10 mg PO TID [facility] Last Admin: 12/08/17 13:30 Dose: 10 mg Nadolol (Corgard) 10 mg PO DAILY [facility] Last Admin: 12/08/17 09:30 Dose: Not Given Ondansetron HCl (Zofran Inj) 4 mg IVP Q6H PRN PRN Reason: Nausea/Vomiting Last Admin: 12/07/17 02:32 Dose: 4 mg Potassium Phos/Sodium Phos (Neutra-Phos) 2 pkt PO BID [facility] Last Admin: 12/08/17 09:29 Dose: 2 pkt Rifaximin (Xifaxan) 550 mg PO BID [facility] PRN Reason: Protocol Last Admin: 12/08/17 09:32 Dose: 550 mg - Labs Labs: 12/08/17 05:45 12/08/17 05:45 PT 16.4 SECONDS (9.4-12.5) H 12/08/17 08:00 INR 1.42 (0.93-1.08) H 12/08/17 08:00 APTT 36.2 Seconds (25.1-36.5) 12/06/17 13:55 Attending/Attestation - Attestation I have personally seen and examined this patient.: Yes I have fully participated in the care of the patient.: Yes I have reviewed all pertinent clinical information, including history, physical exam and plan: Yes Notes (Text): 12/08/17 15:19 62 year old male with past medical history of cirrhosis, afib s/p cardioversion , hypertension and esophageal varices who presented with abdominal pain. US abdomen reviewed which showed moderate ascites. He was seen by GI and started on iv albumin. He was also seen by IR and is s/p paracentesis today. He also has acute kidney injury which is stable and slowly improving. Continue with IVF while holding diuretics. Will continue to monitor kidney function closely. Continue to monitor anemia closely. Otto Mccloud MD Hospitalist.
[2017-12-08 08:28] LABS: INR 1.42 (0.93-1.08); PROTHROMBIN TIME 16.4 SECONDS (9.4-12.5)
[2017-12-08] MEDS: Potassium & Sodium Phosphate PO SCH ×2 (09:29→17:30)
[2017-12-08] MEDS: Cholecalciferol 1,000 INTLU TAB PO SCH (09:30)
[2017-12-08] MEDS ORDERED: Pantoprazole 40 mg EC Tab PO SCH (10:00)
[2017-12-08 11:24] LABS: BODY FLUID TYPE PERITONEAL/ASCITES
[2017-12-08 11:45] LABS: BF GROSS APPEARANCE CLEAR (CLEAR)
[2017-12-08 11:46] LABS: BODY FLUID TOTAL COUNT 100 (0-0)
--- NOTE | 2017-12-08 17:48 | US ---
PROCEDURE: Ultrasound guided paracentesis. HISTORY: Nonalcoholic cirrhosis. Recurrent ascites with abdominal pain. Evaluate for spontaneous bacterial peritonitis P PHYSICIAN(S): Franko Crespo MD. TECHNIQUE: The relative risks and indications for the procedure were explained to the patient and informed written consent obtained. Sonography of the abdomen was performed in a supine position. This revealed a moderate amount of non-loculated ascites, greatest in the right lower quadrant. A puncture site was selected and the area was prepped and draped in the usual sterile fashion. 1% Xylocaine was used to anesthetize the skin and soft tissues. A 7 [place] paracentesis catheter was trocared into the right lower quadrantand 4300 cc of clear, straw-colored fluid aspirated. The appropriate labs were sent. IMPRESSION: Ultrasound-guided paracentesis in the right lower quadrant. 4300 cc of fluid were aspirated. Labs were sent
[2017-12-09] MEDS: Albumin Human 5% (12.5 gm/250 ml) IV SCH (01:10)
[2017-12-09] MEDS ORDERED: Menthol/Methyl Salicylate Ointment(1 oz) TOP PRN (05:12)
[2017-12-09 06:31] LABS: BASO # 0.03 K/mm3 (0.0-2.0); BASO % 0.8 % (0.0-3.0); EOS # 0.2 (0.0-0.7); EOS % 5.3 % (1.5-5.0); GRAN # 1.95 (1.4-6.5); GRAN % 48.6 % (50.0-68.0); HEMOGLOBIN 8.3 g/dL (14.0-18.0); LYMPH # 1.3 (1.2-3.4); LYMPH % 31.3 % (22.0-35.0); MEAN CELL VOLUME 94.8 fl (80.0-105.0); MEAN CORPUSCULAR HEMOGLOBIN 31.1 pg (25.0-35.0); MEAN CORPUSCULAR HGB CONC 32.8 g/dl (31.0-37.0); MEAN PLATELET VOLUME 9.3 fl (7.0-11.0); MONO # 0.6 (0.1-0.6); RBC 2.67 10^6/uL (3.5-6.1)
--- NOTE | 2017-12-09 06:54 | CP.PCM.PN ---
<Boo Hidalgo - Last Filed: 12/09/17 11:58> Subjective - Date & Time of Evaluation Date of Evaluation: 12/09/17 Time of Evaluation: 06:10 - Subjective Subjective: GI progress note: Pt seen and examined at bedside. No acute events overnight. Pt complains of multiple bouts of non bloody diarrhea most recently this morning. Denies of any abdominal pain, n/v. Pt also complains of insomnia. No other complaints. 12 Point ROS performed and negative other than stated above. Objective - Vital Signs/Intake and Output Vital Signs (last 24 hours): Temp Pulse Resp BP Pulse Ox 97.6 F 57 L 20 98/56 L 99 12/08/17 16:00 12/08/17 16:00 12/08/17 16:00 12/09/17 03:11 12/08/17 16:00 Intake and Output: 12/08/17 12/09/17 18:59 06:59 Intake Total 660 740 Balance 660 740 - Medications Medications: Current Medications Alprazolam (Xanax) 0.5 mg PO HS PRN; Protocol PRN Reason: Anxiety Last Admin: 12/08/17 20:50 Dose: 0.5 mg Ascorbic Acid (Vitamin C 500 Mg Tab) 1,000 mg PO BID [facility] Last Admin: 12/08/17 17:29 Dose: 1,000 mg Camphor/Menthol (Bengay) 0 gm TOP DAILY PRN PRN Reason: Pain, moderate (4-7) Last Admin: 12/09/17 05:39 Dose: 1 applic Cholecalciferol (Vitamin D) 2,000 intlu PO DAILY [facility] Last Admin: 12/08/17 09:30 Dose: 2,000 intlu Cyanocobalamin (Vitamin B12 1000 Mcg Tab) 1,000 mcg PO DAILY [facility] Last Admin: 12/08/17 09:28 Dose: 1,000 mcg Famotidine (Pepcid) 20 mg PO BID [facility] Last Admin: 12/08/17 17:30 Dose: 20 mg Lactulose (Enulose) 20 gm PO TID [facility] Last Admin: 12/08/17 17:30 Dose: 20 gm Midodrine (Proamatine) 10 mg PO TID [facility] Last Admin: 12/08/17 17:28 Dose: 10 mg Nadolol (Corgard) 10 mg PO DAILY [facility] Last Admin: 12/08/17 09:30 Dose: Not Given Ondansetron HCl (Zofran Inj) 4 mg IVP Q6H PRN PRN Reason: Nausea/Vomiting Last Admin: 12/07/17 02:32 Dose: 4 mg Potassium Phos/Sodium Phos (Neutra-Phos) 2 pkt PO BID [facility] Last Admin: 12/08/17 17:30 Dose: 2 pkt Rifaximin (Xifaxan) 550 mg PO BID [facility] PRN Reason: Protocol Last Admin: 12/08/17 17:30 Dose: 550 mg - Labs Labs: 12/08/17 05:45 12/08/17 05:45 PT 16.4 SECONDS (9.4-12.5) H 12/08/17 08:00 INR 1.42 (0.93-1.08) H 12/08/17 08:00 APTT 36.2 Seconds (25.1-36.5) 12/06/17 13:55 - Constitutional Appears: No Acute Distress - Head Exam Head Exam: ATRAUMATIC, NORMOCEPHALIC - Eye Exam Eye Exam: EOMI - ENT Exam ENT Exam: Mucous Membranes Moist - Respiratory Exam Respiratory Exam: Clear to Ausculation Bilateral. absent: Wheezes - Cardiovascular Exam Cardiovascular Exam: REGULAR RHYTHM, +S1, +S2 - GI/Abdominal Exam GI & Abdominal Exam: Soft. absent: Distended, Tenderness - Extremities Exam Extremities Exam: absent: Calf Tenderness, Pedal Edema - Neurological Exam Neurological Exam: Alert, Awake, Oriented x3 - Skin Skin Exam: Dry, Intact, Warm Assessment and Plan - Assessment and Plan (Free Text) Assessment: 62 M with past medical history of decompensated cryptogenic cirrhosis, complicated by esophageal varices with prior hemmorhage s/p EVL 2 months ago, ascites with no hx of SBP and last paracenetsis 2 weeks ago, hepatic encephalopathy currently on laculose and Rifaximin , CAD s/p stent, Afib s/p cardioversion, HTN, GERD, CHF, presents with abdominal pain and KEYUR. MELD-Na score of 23 upon admission. 1. Abdominal pain 2. Acute renal failure 3. Decompensated cirrhosis 4. Esophageal varices 5. Ascites 6. Hepatic encephalopathy Plan: - Will start Octreotide 200mcg SubQ TID today; Continue Midodrine - Lactulose decreased to 20mg BID - titrate to 2 BMs per day - 500cc fluid challeneg - Cont Albumin 1g/kg x 3 days - IR consult - 4300cc of straw colored fluid - Paracentesis - negative for SBP - Abdominal US with Doppler showed patent portal vein with hepatopetal flow. Large amount of ascites in the upper abdomen - Urine electrolytes - Urine Na 63, Urine Cr 44. Fena 2.5% indicating an intrinsic cause; FeUrea 56.7% indicating Intrinsic renal disease - D/c Lasix / Aldactone for new onset azotemia - Recommend Nephrology consultation for KEYUR - Low Na and high protein diet as tolerated - Lactulose/ Rifaxamin for HE prevention - Discontinue any PPI - Continue with b-ameya ppx therapy for recurrent bleeding as well - H/H stable, continue to monitor - I/O and daily weights - Avoid nephrotoxic medications - MELD- Na score of 24 today Pt was seen and plan discussed in detail with Dr. Garcia. <Delonte Garcia - Last Filed: 12/09/17 13:22> Objective - Vital Signs/Intake and Output Vital Signs (last 24 hours): Temp Pulse Resp BP Pulse Ox 98 F 53 L 18 82/48 L 98 12/09/17 08:03 12/09/17 08:03 12/09/17 08:03 12/09/17 08:03 12/09/17 08:03 Intake and Output: 12/09/17 12/09/17 06:59 18:59 Intake Total 740 Balance 740 - Medications Medications: Current Medications Albumin Human (Albumin Human 25% (12.5 Gm/50 Ml)) 25 gm IV Q8H [facility] Stop: 12/09/17 23:31 Last Admin: 12/09/17 08:54 Dose: 25 gm Alprazolam (Xanax) 0.5 mg PO HS PRN; Protocol PRN Reason: Anxiety Last Admin: 12/08/17 20:50 Dose: 0.5 mg Ascorbic Acid (Vitamin C 500 Mg Tab) 1,000 mg PO BID [facility] Last Admin: 12/09/17 09:10 Dose: 1,000 mg Camphor/Menthol (Bengay) 0 gm TOP DAILY PRN PRN Reason: Pain, moderate (4-7) Last Admin: 12/09/17 05:39 Dose: 1 applic Cholecalciferol (Vitamin D) 2,000 intlu PO DAILY [facility] Last Admin: 12/09/17 09:10 Dose: 2,000 intlu Cyanocobalamin (Vitamin B12 1000 Mcg Tab) 1,000 mcg PO DAILY [facility] Last Admin: 12/09/17 09:10 Dose: 1,000 mcg Famotidine (Pepcid) 20 mg PO BID [facility] Last Admin: 12/09/17 09:08 Dose: 20 mg Sodium Chloride (Sodium Chloride 0.9%) 500 mls @ 100 mls/hr IV .Q5H [facility] Last Admin: 12/09/17 09:09 Dose: 100 mls/hr Lactulose (Enulose) 20 gm PO BID [facility] Midodrine (Proamatine) 10 mg PO TID [facility] Last Admin: 12/09/17 09:09 Dose: 10 mg Nadolol (Corgard) 10 mg PO DAILY [facility] Last Admin: 12/08/17 09:30 Dose: Not Given Octreotide Acetate (Sandostatin) 200 mcg SC TID [facility] Ondansetron HCl (Zofran Inj) 4 mg IVP Q6H PRN PRN Reason: Nausea/Vomiting Last Admin: 12/07/17 02:32 Dose: 4 mg Potassium Phos/Sodium Phos (Neutra-Phos) 2 pkt PO BID [facility] Last Admin: 12/09/17 09:07 Dose: 2 pkt Rifaximin (Xifaxan) 550 mg PO BID [facility] PRN Reason: Protocol Last Admin: 12/09/17 09:11 Dose: 550 mg - Labs Labs: 12/09/17 06:00 12/09/17 06:00 PT 18.0 SECONDS (9.4-12.5) H 12/09/17 06:00 INR 1.55 (0.93-1.08) H 12/09/17 06:00 APTT 36.2 Seconds (25.1-36.5) 12/06/17 13:55 Attending/Attestation - Attestation I have personally seen and examined this patient.: Yes I have fully participated in the care of the patient.: Yes I have reviewed all pertinent clinical information, including history, physical exam and plan: Yes Notes (Text): 12/09/17 13:18 I have seen and examined patient with GI fellow and medical pathology teacher. He reports multiple episodes of loose bowel movements overnight and 3 additional episodes this morning. He otherwise denies abdominal pain, nausea, vomiting, fever/chills. Tolerating PO diet without difficulty. Decompensated cryptogenic cirrhosis Ascites, s/p paracentesis CAD s/p stent Atrial fibrillation HTN CHF Acute renal insufficiency - Low sodium diet as tolerated - Continue with lactulose/xifaxan for HE prevention - Diuretics on hold given acute renal failure - Continue with albumin, midodrine, would also begin therapy with octreotide for possible HRS given failure of response to IVF challenge - Follow up nephrology recommendations, continue to monitor creatinine - H/H stable, continue to monitor - Will continue to monitor patient clinical course
[2017-12-09 06:55] LABS: INR 1.55 (0.93-1.08)
[2017-12-09 07:00] LABS: ALB/GLOB RATIO 0.9 (1.1-1.8); ALBUMIN 3.5 g/dL (3.0-4.8); CALCIUM 9.1 mg/dL (8.4-10.5)
[2017-12-09] MEDS ORDERED: Albumin Human 25% (12.5 gm/50 ml) IV SCH (07:30)
[2017-12-09] MEDS: Potassium & Sodium Phosphate PO SCH ×2 (09:07→17:54)
[2017-12-09] MEDS: Sodium Chloride 0.9% 500 ML IV SCH ×2 (09:09→14:04)
[2017-12-09] MEDS: Cholecalciferol 1,000 INTLU TAB PO SCH (09:10)
[2017-12-09] MEDS ORDERED: Sodium Chloride 0.9% 500 ML IV STA (11:38)
--- NOTE | 2017-12-09 11:44 | CP.PCM.PN ---
<Obie Velazquez - Last Filed: 12/09/17 12:45> Subjective - Date & Time of Evaluation Date of Evaluation: 12/09/17 Time of Evaluation: 06:00 - Subjective Subjective: Patient seen and examined bedside. No acute issues overnight, however patient states he has had over 10 episodes of diarrhea. denies any chest pain, nausea, vomiting, abdominal pain, shortness of breath or any other complain. Objective - Vital Signs/Intake and Output Vital Signs (last 24 hours): Temp Pulse Resp BP Pulse Ox 98 F 53 L 18 82/48 L 98 12/09/17 08:03 12/09/17 08:03 12/09/17 08:03 12/09/17 08:03 12/09/17 08:03 Intake and Output: 12/09/17 12/09/17 06:59 18:59 Intake Total 740 Balance 740 - Medications Medications: Current Medications Albumin Human (Albumin Human 25% (12.5 Gm/50 Ml)) 25 gm IV Q8H [facility] Stop: 12/09/17 23:31 Last Admin: 12/09/17 08:54 Dose: 25 gm Alprazolam (Xanax) 0.5 mg PO HS PRN; Protocol PRN Reason: Anxiety Last Admin: 12/08/17 20:50 Dose: 0.5 mg Ascorbic Acid (Vitamin C 500 Mg Tab) 1,000 mg PO BID [facility] Last Admin: 12/09/17 09:10 Dose: 1,000 mg Camphor/Menthol (Bengay) 0 gm TOP DAILY PRN PRN Reason: Pain, moderate (4-7) Last Admin: 12/09/17 05:39 Dose: 1 applic Cholecalciferol (Vitamin D) 2,000 intlu PO DAILY [facility] Last Admin: 12/09/17 09:10 Dose: 2,000 intlu Cyanocobalamin (Vitamin B12 1000 Mcg Tab) 1,000 mcg PO DAILY [facility] Last Admin: 12/09/17 09:10 Dose: 1,000 mcg Famotidine (Pepcid) 20 mg PO BID [facility] Last Admin: 12/09/17 09:08 Dose: 20 mg Sodium Chloride (Sodium Chloride 0.9%) 500 mls @ 100 mls/hr IV .Q5H [facility] Last Admin: 12/09/17 09:09 Dose: 100 mls/hr Sodium Chloride (Sodium Chloride 0.9%) 500 mls @ 999 mls/hr IV .Q31M [facility] Stop: 12/09/17 12:08 Lactulose (Enulose) 20 gm PO TID [facility] Last Admin: 12/09/17 09:07 Dose: 20 gm Midodrine (Proamatine) 10 mg PO TID [facility] Last Admin: 12/09/17 09:09 Dose: 10 mg Nadolol (Corgard) 10 mg PO DAILY [facility] Last Admin: 12/08/17 09:30 Dose: Not Given Ondansetron HCl (Zofran Inj) 4 mg IVP Q6H PRN PRN Reason: Nausea/Vomiting Last Admin: 12/07/17 02:32 Dose: 4 mg Potassium Phos/Sodium Phos (Neutra-Phos) 2 pkt PO BID [facility] Last Admin: 12/09/17 09:07 Dose: 2 pkt Rifaximin (Xifaxan) 550 mg PO BID [facility] PRN Reason: Protocol Last Admin: 12/09/17 09:11 Dose: 550 mg - Labs Labs: 12/09/17 06:00 12/09/17 06:00 PT 18.0 SECONDS (9.4-12.5) H 12/09/17 06:00 INR 1.55 (0.93-1.08) H 12/09/17 06:00 APTT 36.2 Seconds (25.1-36.5) 12/06/17 13:55 - Constitutional Appears: No Acute Distress - Head Exam Head Exam: ATRAUMATIC, NORMAL INSPECTION - Eye Exam Eye Exam: Normal appearance - ENT Exam ENT Exam: Mucous Membranes Dry - Neck Exam Neck Exam: absent: Lymphadenopathy, Tenderness - Respiratory Exam Respiratory Exam: Clear to Ausculation Bilateral, NORMAL BREATHING PATTERN - Cardiovascular Exam Cardiovascular Exam: REGULAR RHYTHM, +S1, +S2 - GI/Abdominal Exam GI & Abdominal Exam: Soft. absent: Tenderness - Neurological Exam Neurological Exam: Alert, Awake, Oriented x3 Assessment and Plan - Assessment and Plan (Free Text) Assessment: 62 year old male with pat medical history non Non-Alcoholic Liver Cirrhosis, afib s/p cardioversion, HTN, GERD, CHF, and esophageal varices presents with right lower quadrant abdominal pain and back pain.Patient underwent US guided parcentesis, 5L removed Plan: 1. Abdominal Pain - Abdominal US: moderate free fluid with abdomen, likely ascites from cirrhosis , 0.7cm renal calculi - abd duplex showed patent portal vein, large ascites - Chest xray showing persistent right pleural effusion - zofran prn - monitor for pain level - GI follow, Dr. Paige - continue Albumin - IR following for paracentesis removed 4.3 L - No evidence of SBP 2. Acute Kidney Injury - Creatinine 2.4 - Nephro consulted, Hadad - urine electrolytes reviewed, Fractional excretion urea was 57.8%, indicating intrinsic renal disease 3. History Non-Alcoholic Liver Cirrhosis with associated Esophageal Varices - Abdominal US: moderate free fluid with abdomen, likely ascites from cirrhosis - abd duplex showed patent portal vein, large ascites - s/p paracentesis 4.3 L removed - Meld 25 - continue rifaximin - lactulose decreased rto 20 BID - Continue home Nadolol 10mg PO QD, Neutra-Phos supplementation - Zofran PRN -Started octreotide 4. Atrial Fibrillation s/p Cardioversion - continue to monitor 5. CAD s/p stent placement 09/06 - Continue home Aspirin 81mg - continue home med Midodrine 10mg PO TID 6. CHF - hold diuretic due to KEYUR 7. Diarrhea -C diff toxin ordered 8. Hypotension -80/48 BP -given 500ml bolus NS -NS@100 GI Prophylaxis: pepcid DVT Prophylaxis: SCD's <Otto Mccloud - Last Filed: 12/09/17 14:59> Objective - Vital Signs/Intake and Output Vital Signs (last 24 hours): Temp Pulse Resp BP Pulse Ox 98 F 52 L 18 91/52 L 98 12/09/17 08:03 12/09/17 14:03 12/09/17 08:03 12/09/17 14:03 12/09/17 08:03 Intake and Output: 12/09/17 12/09/17 06:59 18:59 Intake Total 740 Balance 740 - Medications Medications: Current Medications Albumin Human (Albumin Human 25% (12.5 Gm/50 Ml)) 25 gm IV Q8H [facility] Stop: 12/09/17 23:31 Last Admin: 12/09/17 08:54 Dose: 25 gm Alprazolam (Xanax) 0.5 mg PO HS PRN; Protocol PRN Reason: Anxiety Last Admin: 12/08/17 20:50 Dose: 0.5 mg Ascorbic Acid (Vitamin C 500 Mg Tab) 1,000 mg PO BID [facility] Last Admin: 12/09/17 09:10 Dose: 1,000 mg Camphor/Menthol (Bengay) 0 gm TOP DAILY PRN PRN Reason: Pain, moderate (4-7) Last Admin: 12/09/17 05:39 Dose: 1 applic Cholecalciferol (Vitamin D) 2,000 intlu PO DAILY [facility] Last Admin: 12/09/17 09:10 Dose: 2,000 intlu Cyanocobalamin (Vitamin B12 1000 Mcg Tab) 1,000 mcg PO DAILY [facility] Last Admin: 12/09/17 09:10 Dose: 1,000 mcg Famotidine (Pepcid) 20 mg PO BID [facility] Last Admin: 12/09/17 09:08 Dose: 20 mg Lactulose (Enulose) 20 gm PO BID [facility] Midodrine (Proamatine) 10 mg PO TID [facility] Last Admin: 12/09/17 14:07 Dose: 10 mg Nadolol (Corgard) 10 mg PO DAILY [facility] Last Admin: 12/09/17 14:03 Dose: Not Given Octreotide Acetate (Sandostatin) 200 mcg SC TID [facility] Last Admin: 12/09/17 14:08 Dose: 200 mcg Ondansetron HCl (Zofran Inj) 4 mg IVP Q6H PRN PRN Reason: Nausea/Vomiting Last Admin: 12/07/17 02:32 Dose: 4 mg Potassium Phos/Sodium Phos (Neutra-Phos) 2 pkt PO BID [facility] Last Admin: 12/09/17 09:07 Dose: 2 pkt Rifaximin (Xifaxan) 550 mg PO BID [facility] PRN Reason: Protocol Last Admin: 12/09/17 09:11 Dose: 550 mg - Labs Labs: 12/09/17 06:00 12/09/17 06:00 PT 18.0 SECONDS (9.4-12.5) H 12/09/17 06:00 INR 1.55 (0.93-1.08) H 12/09/17 06:00 APTT 36.2 Seconds (25.1-36.5) 12/06/17 13:55 Attending/Attestation - Attestation I have personally seen and examined this patient.: Yes I have fully participated in the care of the patient.: Yes I have reviewed all pertinent clinical information, including history, physical exam and plan: Yes Notes (Text): 12/09/17 14:57 62 year old male with past medical history of cirrhosis, afib s/p cardioversion , hypertension and esophageal varices who presented with abdominal pain. US abdomen showed moderate ascites. He is s/p paracentesis. He is being followed by GI and currently on iv albumin, midodrine and started on octeotride. Overnight he complains of diarrhea. Today he has worsening kidney function likely volume depletion secondary to diarrhea. Continue with iv fluids with bolus. Will decrease lactulose. CDif study is ordered. Nephrology evaluation is requested. Continue to hold diuretics and monitor kidney function closely. Continue to monitor anemia closely. Otto Mccloud MD Hospitalist.
--- NOTE | 2017-12-09 16:06 | CP.PCM.CON ---
History of Present Illness - History of Present Illness History of Present Illness: Initial Nephrology Consultation: Assessment: Stable Acute Kidney Injury (N17.9) possibly due to acute tubular necrosis, hemodynamic (due to low BP, meds as aldactone/lasix), can't rule out superimposed hepato- renal syndrome Chronic Kidney Disease (N18.3) Stage 3 likely due to AKIs Anemia (D64.9), Non-Alcoholic Liver Cirrhosis, afib s/p cardioversion, HTN, GERD , and esophageal varices Plan No acute need for renal replacement therapy at this time. No ACEI/ARB due to KEYUR. maintain hemodynamics stable Monitor Input/Output, daily weights and renal function with basic metabolic panel agree with IV albumin challenge. pt is already on octreotide and midodrine if renal function deteriorates further, then to consider transfer to tertiary care liver center Dose meds/antibiotics for reduced GFR. Avoid fleets enema/magnesium based laxatives. Avoid nephrotoxins/NSAIDs/ iodinated contrast (unless needed emergently) Glycemic control Further work up/management as per primary team Thanks for allowing me to participate in care of your patient. Will follow patient with you. Please call if any Qs. d/w team Dr Mario Costello Office: [phone] Chief Complaint; vomiting reason for consult: KEYUR HPI: Pt is a 62 M with hx of Non-Alcoholic Liver Cirrhosis, afib s/p cardioversion, HTN, GERD, and esophageal varices, CKD 3 (baseline cr 1.1-1.3) with intermittent episode of AKIs presented with complaints of upper abdomen pain and being managed for ascites, KEYUR. renal consult for KEYUR. he reports gradual wt loss. makes same amount of urine Denies OTC/herbal meds or NSAIDs No recent iodinated contrast exposure. had episodes of low BP intermittently. had paracentesis this hospitalization. he was recently admitted and d/c home on lasix and aldactone ROS: Cardiovascular: No chest pain. Pulmonary: No shortness of breath Gastrointestinal: improved abdominal pain No nausea. had 1 episode of vomiting. Genitourinary: No pain while urinating. Denies blood in urine. All other negative Physical Examination: General Appearance: Comfortable, in no acute respiratory distress, co-operative . facial muscle wasting noted Vitals reviewed and noted as below Head; Atraumatic, normocephalic ENT: no ulcers no thrush. Tongue is midline. Oropharynx: no rash or ulcers. EYES: Pupils are equal, round and reactive to light accommodation. Eye muscles and extraocular movement intact. Sclera is anicteric. Neck; supple no lymphadenopathy, no thyromegaly or bruit Lungs: Normal respiratory rate/effort. Breath sounds bilateral equal and clear Heart: Normal rate. s1s2 normal. No rub or gallop. Extremities: no edema. No varicose veins Neurological: Patient is alert, awake and oriented to person, place and time. No focal deficit. Strength bilateral appropriate and equal Skin: Warm and dry. Normal turgor. No rash. Palpitation: Normal elasticity for age Abdomen: Abdomen is soft. Bowel sounds +. There is no abdominal tenderness, no guarding/rigidity no organomegaly Psych: normal insight and normal affect/mood MSK: no joint tenderness or swelling. Digits and nails normal, no deformity : kidney or bladder not palpable Labs/imaging reviewed. Past medical history, past surgical history, family history, social history, allergy reviewed and noted as below Family hx: no hx of CKD. Rest non-contributory work up: TSAT 30% ferritin 50 Vit D 60 sono; unremarkable renals urine Na 60 Past Patient History - Infectious Disease Hx of Infectious Diseases: None - Tetanus Immunizations Tetanus Immunization: Unknown - Past Social History Smoking Status: Former Smoker - CARDIAC Hx Cardiac Disorders: Yes Hx Congestive Heart Failure: Yes Hx Hypertension: Yes - PULMONARY Hx Respiratory Disorders: Yes Hx Pneumonia: Yes (09-02-17) - NEUROLOGICAL Hx Neurological Disorder: No - HEENT Hx HEENT Problems: No - RENAL Hx Renal Failure: Yes - ENDOCRINE/METABOLIC Hx Endocrine Disorders: No - HEMATOLOGICAL/ONCOLOGICAL Hx Blood Disorders: Yes Hx Cirrhosis: Yes (PARACENTESIS) - INTEGUMENTARY Hx Dermatological Problems: No - MUSCULOSKELETAL/RHEUMATOLOGICAL Hx Musculoskeletal Disorders: Yes Hx Falls: Yes Hx Unsteady Gait: Yes - GASTROINTESTINAL Hx Gastrointestinal Disorders: Yes Hx Gastroesophageal Reflux: Yes - GENITOURINARY/GYNECOLOGICAL Hx Genitourinary Disorders: No - PSYCHIATRIC Hx Psychophysiologic Disorder: No Hx Substance Use: No - SURGICAL HISTORY Hx Coronary Stent: Yes - ANESTHESIA Hx Anesthesia Reactions: No Hx Malignant Hyperthermia: No Meds Allergies/Adverse Reactions: Allergies Allergy/AdvReac Type Severity Reaction Status Date / Time Beef Containing Products Allergy Severe ANAPHYLAXIS Verified 01/16/18 21:39 beef derived (bovine) Allergy Severe ANAPHYLAXIS Verified 12/06/17 21:39 banana Allergy Intermediate ITCHING Verified 12/06/17 21:39 velcro Allergy ITCHING Uncoded 12/07/17 01:43 - Medications Medications: Current Medications Albumin Human (Albumin Human 25% (12.5 Gm/50 Ml)) 25 gm IV Q8H [facility] Stop: 12/09/17 23:31 Last Admin: 12/09/17 08:54 Dose: 25 gm Alprazolam (Xanax) 0.5 mg PO HS PRN; Protocol PRN Reason: Anxiety Last Admin: 12/08/17 20:50 Dose: 0.5 mg Ascorbic Acid (Vitamin C 500 Mg Tab) 1,000 mg PO BID [facility] Last Admin: 12/09/17 09:10 Dose: 1,000 mg Camphor/Menthol (Bengay) 0 gm TOP DAILY PRN PRN Reason: Pain, moderate (4-7) Last Admin: 12/09/17 05:39 Dose: 1 applic Cholecalciferol (Vitamin D) 2,000 intlu PO DAILY [facility] Last Admin: 12/09/17 09:10 Dose: 2,000 intlu Cyanocobalamin (Vitamin B12 1000 Mcg Tab) 1,000 mcg PO DAILY [facility] Last Admin: 12/09/17 09:10 Dose: 1,000 mcg Famotidine (Pepcid) 20 mg PO BID [facility] Last Admin: 12/09/17 09:08 Dose: 20 mg Lactulose (Enulose) 20 gm PO BID [facility] Midodrine (Proamatine) 10 mg PO TID [facility] Last Admin: 12/09/17 14:07 Dose: 10 mg Nadolol (Corgard) 10 mg PO DAILY [facility] Last Admin: 12/09/17 14:03 Dose: Not Given Octreotide Acetate (Sandostatin) 200 mcg SC TID [facility] Last Admin: 12/09/17 14:08 Dose: 200 mcg Ondansetron HCl (Zofran Inj) 4 mg IVP Q6H PRN PRN Reason: Nausea/Vomiting Last Admin: 12/07/17 02:32 Dose: 4 mg Potassium Phos/Sodium Phos (Neutra-Phos) 2 pkt PO BID [facility] Last Admin: 12/09/17 09:07 Dose: 2 pkt Rifaximin (Xifaxan) 550 mg PO BID [facility] PRN Reason: Protocol Last Admin: 12/09/17 09:11 Dose: 550 mg Results - Vital Signs Recent Vital Signs: Last Vital Signs Temp 98 F 12/09/17 08:03 Pulse 52 L 12/09/17 14:03 Resp 18 12/09/17 08:03 BP 91/52 L 12/09/17 14:03 Pulse Ox 98 12/09/17 08:03 - Labs Result Diagrams: 12/09/17 06:00 12/09/17 06:00 Labs: Laboratory Results - last 24 hr 12/09/17 12/09/17 12/09/17 06:00 06:00 06:00 WBC 4.0 L RBC 2.67 L Hgb 8.3 L Hct 25.3 L MCV 94.8 MCH 31.1 MCHC 32.8 RDW 18.0 H Plt Count 100 L MPV 9.3 Gran % 48.6 L Lymph % (Auto) 31.3 [place] % (Auto) 14.0 H Eos % (Auto) 5.3 H Baso % (Auto) 0.8 Gran # 1.95 Lymph # 1.3 [place] # 0.6 Eos # 0.2 Baso # 0.03 PT 18.0 H INR 1.55 H Sodium 136 Potassium 4.4 Chloride 101 Carbon Dioxide 23 Anion Gap 16 BUN 33 H Creatinine 2.4 H Est GFR ( Amer) 33 Est GFR (Non-Af Amer) 28 Random Glucose 85 Calcium 9.1 Total Bilirubin 1.8 H AST 43 ALT 31 Alkaline Phosphatase 174 H Total Protein 7.5 Albumin 3.5 Globulin 4.0 Albumin/Globulin Ratio 0.9 L
[2017-12-09] MEDS: Albumin Human 25% (25 gm/100 ml) IV SCH ×2 (17:53→20:03)
[2017-12-09] MEDS ORDERED: Morphine 2 mg/ml ISec IVP STA (21:57)
--- NOTE | 2017-12-10 07:21 | CP.PCM.PN ---
<Laney Alatorre - Last Filed: 12/10/17 09:36> Subjective - Date & Time of Evaluation Date of Evaluation: 12/10/17 Time of Evaluation: 07:15 - Subjective Subjective: Gastroenterology Fellow/PGY5 Progress Note Patient feels well and ambulating in room. Notes four bowel movements yesterday. Notes three episodes of small volume (4cc) bilious vomiting last night. Notes slight right upper abdominal pain. A 12-point review of systems negative except for as above. Objective - Vital Signs/Intake and Output Vital Signs (last 24 hours): Temp Pulse Resp BP Pulse Ox 97.2 F L 51 L 18 94/39 L 100 12/09/17 16:00 12/09/17 16:00 12/09/17 16:00 12/09/17 16:00 12/09/17 16:00 Intake and Output: 12/10/17 12/10/17 06:59 18:59 Intake Total 540 Balance 540 - Medications Medications: Current Medications Alprazolam (Xanax) 0.5 mg PO HS PRN; Protocol PRN Reason: Anxiety Last Admin: 12/09/17 23:17 Dose: 0.5 mg Ascorbic Acid (Vitamin C 500 Mg Tab) 1,000 mg PO BID [facility] Last Admin: 12/09/17 17:55 Dose: 1,000 mg Camphor/Menthol (Bengay) 0 gm TOP DAILY PRN PRN Reason: Pain, moderate (4-7) Last Admin: 12/09/17 05:39 Dose: 1 applic Cholecalciferol (Vitamin D) 2,000 intlu PO DAILY [facility] Last Admin: 12/09/17 09:10 Dose: 2,000 intlu Cyanocobalamin (Vitamin B12 1000 Mcg Tab) 1,000 mcg PO DAILY [facility] Last Admin: 12/09/17 09:10 Dose: 1,000 mcg Famotidine (Pepcid) 20 mg PO BID [facility] Last Admin: 12/09/17 17:54 Dose: 20 mg Lactulose (Enulose) 20 gm PO BID [facility] Last Admin: 12/09/17 17:54 Dose: 20 gm Midodrine (Proamatine) 10 mg PO TID [facility] Last Admin: 12/09/17 17:54 Dose: 10 mg Nadolol (Corgard) 10 mg PO DAILY [facility] Last Admin: 12/09/17 14:03 Dose: Not Given Octreotide Acetate (Sandostatin) 200 mcg SC TID [facility] Last Admin: 12/09/17 17:55 Dose: Not Given Ondansetron HCl (Zofran Inj) 4 mg IVP Q6H PRN PRN Reason: Nausea/Vomiting Last Admin: 12/10/17 04:22 Dose: 4 mg Potassium Phos/Sodium Phos (Neutra-Phos) 2 pkt PO BID [facility] Last Admin: 12/09/17 17:54 Dose: 2 pkt Rifaximin (Xifaxan) 550 mg PO BID [facility] PRN Reason: Protocol Last Admin: 12/09/17 17:56 Dose: 550 mg - Labs Labs: 12/09/17 06:00 12/09/17 06:00 PT 18.0 SECONDS (9.4-12.5) H 12/09/17 06:00 INR 1.55 (0.93-1.08) H 12/09/17 06:00 APTT 36.2 Seconds (25.1-36.5) 12/06/17 13:55 - Constitutional Appears: Non-toxic, No Acute Distress - Head Exam Head Exam: ATRAUMATIC, NORMOCEPHALIC - Eye Exam Eye Exam: EOMI, PERRL Pupil Exam: PERRL. absent: Miosis, Mydriatic - ENT Exam ENT Exam: Mucous Membranes Moist - Neck Exam Neck Exam: Full ROM, Normal Inspection - Respiratory Exam Respiratory Exam: Clear to Ausculation Bilateral. absent: Rales, Rhonchi - Cardiovascular Exam Cardiovascular Exam: RRR, +S1, +S2 - GI/Abdominal Exam GI & Abdominal Exam: Soft, Tenderness, Normal Bowel Sounds. absent: Distended, Firm, Guarding, Rigid, Organomegaly Additional comments: RUQ tenderness to palpation - Extremities Exam Extremities Exam: Full ROM. absent: Tenderness - Neurological Exam Neurological Exam: Alert, Awake, Oriented x3 - Psychiatric Exam Psychiatric exam: Normal Affect, Normal Mood - Skin Skin Exam: Dry, Intact Assessment and Plan - Assessment and Plan (Free Text) Assessment: 62year male with history of CAD s/p stent, CHF, Atrial fibrillation s/p cardioversion, Hypertension, decompensated cryptogenic cirrhosis (UGIB 2/2 large esophageal varices s/p 9 bands 09/2017, recurrent LV paracentesis x3 (2016, 11/2017), and hepatic encephalopathy (08/2017) and 09/2017) presenting with abdominal pain and distension. Active treatment of decompensated cirrhosis 2/2 ascites POD 2( 12/08) 4.3L paracentesis (negative for SBP) and concern for hepatorenal syndrome given KEYUR on HRS protocol. Plan: >MELD 20 >continue HRS protocol- midodrine, Octreotide >repeat Albumin 65-70g (1g/kg) today >trend renal function, improving >hold diuretics and avoid nephrotoxic medications >continue Lactulose, titrate to 2-3 BMs/day >continue Rifaximin >strict I&Os >will follow clinical course <Pedro Paige - Last Filed: 12/10/17 14:21> Objective - Vital Signs/Intake and Output Vital Signs (last 24 hours): Temp Pulse Resp BP Pulse Ox 97.9 F 60 20 114/68 98 12/10/17 06:00 12/10/17 09:38 12/10/17 06:00 12/10/17 09:38 12/10/17 06:00 Intake and Output: 12/10/17 12/10/17 06:59 18:59 Intake Total 2280 Output Total 300 Balance 1980 - Medications Medications: Current Medications Albumin Human (Albumin Human 25% (12.5 Gm/50 Ml)) 12.5 gm IV Q1 [facility] Stop: 12/15/17 07:31 Alprazolam (Xanax) 0.5 mg PO HS PRN; Protocol PRN Reason: Anxiety Last Admin: 12/09/17 23:17 Dose: 0.5 mg Ascorbic Acid (Vitamin C 500 Mg Tab) 1,000 mg PO BID [facility] Last Admin: 12/10/17 09:39 Dose: 1,000 mg Camphor/Menthol (Bengay) 0 gm TOP DAILY PRN PRN Reason: Pain, moderate (4-7) Last Admin: 12/09/17 05:39 Dose: 1 applic Cholecalciferol (Vitamin D) 2,000 intlu PO DAILY [facility] Last Admin: 12/10/17 09:39 Dose: 2,000 intlu Cyanocobalamin (Vitamin B12 1000 Mcg Tab) 1,000 mcg PO DAILY [facility] Last Admin: 12/10/17 09:43 Dose: 1,000 mcg Famotidine (Pepcid) 20 mg PO BID [facility] Last Admin: 12/10/17 09:38 Dose: 20 mg Lactulose (Enulose) 20 gm PO BID [facility] Last Admin: 12/10/17 09:38 Dose: 20 gm Midodrine (Proamatine) 10 mg PO TID [facility] Last Admin: 12/10/17 13:33 Dose: 10 mg Nadolol (Corgard) 10 mg PO DAILY [facility] Last Admin: 12/10/17 09:38 Dose: 10 mg Octreotide Acetate (Sandostatin) 200 mcg SC TID [facility] Last Admin: 12/10/17 09:39 Dose: 200 mcg Ondansetron HCl (Zofran Inj) 4 mg IVP Q6H PRN PRN Reason: Nausea/Vomiting Last Admin: 12/10/17 04:22 Dose: 4 mg Potassium Phos/Sodium Phos (Neutra-Phos) 2 pkt PO BID [facility] Last Admin: 12/10/17 09:40 Dose: 2 pkt Rifaximin (Xifaxan) 550 mg PO BID [facility] PRN Reason: Protocol Last Admin: 12/10/17 09:39 Dose: 550 mg - Labs Labs: 12/10/17 07:30 12/10/17 07:30 PT 16.8 SECONDS (9.4-12.5) H 12/10/17 07:30 INR 1.45 (0.93-1.08) H 12/10/17 07:30 APTT 36.2 Seconds (25.1-36.5) 12/06/17 13:55 Attending/Attestation - Attestation I have personally seen and examined this patient.: Yes I have fully participated in the care of the patient.: Yes I have reviewed all pertinent clinical information, including history, physical exam and plan: Yes Notes (Text): 12/10/17 14:18 62 year male with h/o CAD s/p stent, CHF, Afib, HTN, Cirrhosis c/b esophageal varices s/p banding, HE, and ascites, now with renal failure. 1. Cirrhosis 2. Ascites 3. Acute renal insufficiency 4. Hepatic encephalopathy Plan: -mild improvement in renal insufficiency -continue HRS cocktail -hold diuretics -continue lactulose/rifaxamin -monitor urine output -appreciate nephrology recommendations
[2017-12-10] MEDS ORDERED: Albumin Human 25% (12.5 gm/50 ml) IV SCH ×2 (07:30)
[2017-12-10 08:17] LABS: ALBUMIN 4.1 g/dL (3.0-4.8); CALCIUM 9.5 mg/dL (8.4-10.5)
[2017-12-10 08:43] LABS: BASO # 0.07 K/mm3 (0.0-2.0); BASO % 1.5 % (0.0-3.0); EOS # 0.3 (0.0-0.7); GRAN # 2.48 (1.4-6.5); GRAN % 52.5 % (50.0-68.0); HEMOGLOBIN 8.8 g/dL (14.0-18.0); LYMPH # 1.2 (1.2-3.4); MEAN CELL VOLUME 95.2 fl (80.0-105.0); MEAN CORPUSCULAR HEMOGLOBIN 30.3 pg (25.0-35.0); MEAN CORPUSCULAR HGB CONC 31.9 g/dl (31.0-37.0); MEAN PLATELET VOLUME 10.1 fl (7.0-11.0); MONO # 0.7 (0.1-0.6); RBC 2.9 10^6/uL (3.5-6.1); RED CELL DISTRIBUTION WIDTH 18.1 % (11.5-14.5); WHITE BLOOD COUNT 4.7 10^3/ul (4.5-11.0)
[2017-12-10 09:06] LABS: PROTHROMBIN TIME 16.8 SECONDS (9.4-12.5)
[2017-12-10 09:07] LABS: INR 1.45 (0.93-1.08)
[2017-12-10] MEDS: Cholecalciferol 1,000 INTLU TAB PO SCH (09:39)
[2017-12-10] MEDS: Potassium & Sodium Phosphate PO SCH ×2 (09:40→17:24)
--- NOTE | 2017-12-10 10:18 | CP.PCM.PN ---
Subjective - Date & Time of Evaluation Date of Evaluation: 12/10/17 Time of Evaluation: 10:15 - Subjective Subjective: RENAL PROGRESS NOTE Assessment: Stable Acute Kidney Injury (N17.9) possibly due to acute tubular necrosis, hemodynamic (due to low BP, meds as aldactone/lasix) v hrs Chronic Kidney Disease (N18.3) Stage 3 likely due to AKIs hyperkalemia Anemia (D64.9), Non-Alcoholic Liver Cirrhosis, afib s/p cardioversion, HTN, GERD , and esophageal varices Plan No acute need for renal replacement therapy at this time. Cr improved, team discussing possible d/c. Hold octreotide/iv albumin today. If cr improved/stable off of thse IV medications possibly can d/c tomorrow. hyperkalemia likely related to po neutraphos - please d/c and check phos level as well. monitor H and H consider iron studies and ferritin. discussed w/ hospitalist Subjective: feels good denies complaints today. Physical Examination: General Appearance: Comfortable, in no acute respiratory distress, co-operative . facial muscle wasting noted Vitals reviewed and noted as below Head; Atraumatic, normocephalic ENT: no ulcers no thrush. Tongue is midline. Oropharynx: no rash or ulcers. EYES: Pupils are equal Eye muscles and extraocular movement intact. Sclera is anicteric. Neck; supple no lymphadenopathy, no thyromegaly or bruit Lungs: Normal respiratory rate/effort. Breath sounds bilateral equal and clear Heart: Normal rate. s1s2 normal. No rub or gallop. Extremities: no edema. No varicose veins Neurological: Patient is alert, awake and oriented to person, place and time. No focal deficit. Strength bilateral appropriate and equal Skin: Warm and dry. Normal turgor. No rash. Palpitation: Normal elasticity for age Abdomen: Abdomen is soft. Bowel sounds +. There is no abdominal tenderness, no guarding/rigidity no organomegaly Psych: normal insight and normal affect/mood MSK: no joint tenderness or swelling. Digits and nails normal, no deformity : kidney or bladder not palpable Labs/imaging reviewed. Past medical history, past surgical history, family history, social history, allergy reviewed and noted as below Family hx: no hx of CKD. Rest non-contributory US reviewed Objective - Vital Signs/Intake and Output Vital Signs (last 24 hours): Temp Pulse Resp BP Pulse Ox 97.9 F 60 20 114/68 98 12/10/17 06:00 12/10/17 09:38 12/10/17 06:00 12/10/17 09:38 12/10/17 06:00 Intake and Output: 12/10/17 12/10/17 06:59 18:59 Intake Total 2280 Output Total 300 Balance 1980 - Medications Medications: Current Medications Albumin Human (Albumin Human 25% (12.5 Gm/50 Ml)) 12.5 gm IV Q1 [facility] Stop: 12/15/17 07:31 Alprazolam (Xanax) 0.5 mg PO HS PRN; Protocol PRN Reason: Anxiety Last Admin: 12/09/17 23:17 Dose: 0.5 mg Ascorbic Acid (Vitamin C 500 Mg Tab) 1,000 mg PO BID [facility] Last Admin: 12/10/17 09:39 Dose: 1,000 mg Camphor/Menthol (Bengay) 0 gm TOP DAILY PRN PRN Reason: Pain, moderate (4-7) Last Admin: 12/09/17 05:39 Dose: 1 applic Cholecalciferol (Vitamin D) 2,000 intlu PO DAILY [facility] Last Admin: 12/10/17 09:39 Dose: 2,000 intlu Cyanocobalamin (Vitamin B12 1000 Mcg Tab) 1,000 mcg PO DAILY [facility] Last Admin: 12/10/17 09:43 Dose: 1,000 mcg Famotidine (Pepcid) 20 mg PO BID [facility] Last Admin: 12/10/17 09:38 Dose: 20 mg Lactulose (Enulose) 20 gm PO BID [facility] Last Admin: 12/10/17 09:38 Dose: 20 gm Midodrine (Proamatine) 10 mg PO TID [facility] Last Admin: 12/10/17 09:39 Dose: 10 mg Nadolol (Corgard) 10 mg PO DAILY [facility] Last Admin: 12/10/17 09:38 Dose: 10 mg Octreotide Acetate (Sandostatin) 200 mcg SC TID [facility] Last Admin: 12/10/17 09:39 Dose: 200 mcg Ondansetron HCl (Zofran Inj) 4 mg IVP Q6H PRN PRN Reason: Nausea/Vomiting Last Admin: 12/10/17 04:22 Dose: 4 mg Potassium Phos/Sodium Phos (Neutra-Phos) 2 pkt PO BID [facility] Last Admin: 12/10/17 09:40 Dose: 2 pkt Rifaximin (Xifaxan) 550 mg PO BID [facility] PRN Reason: Protocol Last Admin: 12/10/17 09:39 Dose: 550 mg - Labs Labs: 12/10/17 07:30 12/10/17 07:30 PT 16.8 SECONDS (9.4-12.5) H 12/10/17 07:30 INR 1.45 (0.93-1.08) H 12/10/17 07:30 APTT 36.2 Seconds (25.1-36.5) 12/06/17 13:55
--- NOTE | 2017-12-10 11:40 | CP.PCM.PN ---
<Sandi Velásquez - Last Filed: 12/10/17 15:30> Subjective - Date & Time of Evaluation Date of Evaluation: 12/10/17 Time of Evaluation: 11:33 - Subjective Subjective: PGY-2 progress note for hospitalist service Patient seen and examined at bedside, no acute distress. Patients states that he had 2 bowel movements yesterday, stool is formed. Nurse reports no acute events overnight. He is tolerating diet. Objective - Vital Signs/Intake and Output Vital Signs (last 24 hours): Temp Pulse Resp BP Pulse Ox 97.9 F 60 20 114/68 98 12/10/17 06:00 12/10/17 09:38 12/10/17 06:00 12/10/17 09:38 12/10/17 06:00 Intake and Output: 12/10/17 12/10/17 06:59 18:59 Intake Total 2280 Output Total 300 Balance 1979 - Medications Medications: Current Medications Albumin Human (Albumin Human 25% (12.5 Gm/50 Ml)) 12.5 gm IV Q1 [facility] Stop: 12/15/17 07:31 Alprazolam (Xanax) 0.5 mg PO HS PRN; Protocol PRN Reason: Anxiety Last Admin: 12/09/17 23:17 Dose: 0.5 mg Ascorbic Acid (Vitamin C 500 Mg Tab) 1,000 mg PO BID [facility] Last Admin: 12/10/17 09:39 Dose: 1,000 mg Camphor/Menthol (Bengay) 0 gm TOP DAILY PRN PRN Reason: Pain, moderate (4-7) Last Admin: 12/09/17 05:39 Dose: 1 applic Cholecalciferol (Vitamin D) 2,000 intlu PO DAILY [facility] Last Admin: 12/10/17 09:39 Dose: 2,000 intlu Cyanocobalamin (Vitamin B12 1000 Mcg Tab) 1,000 mcg PO DAILY [facility] Last Admin: 12/10/17 09:43 Dose: 1,000 mcg Famotidine (Pepcid) 20 mg PO BID [facility] Last Admin: 12/10/17 09:38 Dose: 20 mg Lactulose (Enulose) 20 gm PO BID [facility] Last Admin: 12/10/17 09:38 Dose: 20 gm Midodrine (Proamatine) 10 mg PO TID [facility] Last Admin: 12/10/17 09:39 Dose: 10 mg Nadolol (Corgard) 10 mg PO DAILY [facility] Last Admin: 12/10/17 09:38 Dose: 10 mg Octreotide Acetate (Sandostatin) 200 mcg SC TID [facility] Last Admin: 12/10/17 09:39 Dose: 200 mcg Ondansetron HCl (Zofran Inj) 4 mg IVP Q6H PRN PRN Reason: Nausea/Vomiting Last Admin: 12/10/17 04:22 Dose: 4 mg Potassium Phos/Sodium Phos (Neutra-Phos) 2 pkt PO BID [facility] Last Admin: 12/10/17 09:40 Dose: 2 pkt Rifaximin (Xifaxan) 550 mg PO BID [facility] PRN Reason: Protocol Last Admin: 12/10/17 09:39 Dose: 550 mg - Labs Labs: 12/10/17 07:30 12/10/17 07:30 PT 16.8 SECONDS (9.4-12.5) H 12/10/17 07:30 INR 1.45 (0.93-1.08) H 12/10/17 07:30 APTT 36.2 Seconds (25.1-36.5) 12/06/17 13:55 - Constitutional Appears: Well, No Acute Distress - Head Exam Head Exam: ATRAUMATIC, NORMAL INSPECTION, NORMOCEPHALIC - Eye Exam Eye Exam: EOMI, Normal appearance - ENT Exam ENT Exam: Mucous Membranes Moist - Respiratory Exam Respiratory Exam: Clear to Ausculation Bilateral, NORMAL BREATHING PATTERN. absent: Rhonchi, Wheezes, Respiratory Distress - Cardiovascular Exam Cardiovascular Exam: REGULAR RHYTHM, +S1, +S2. absent: Tachycardia, Murmur - GI/Abdominal Exam GI & Abdominal Exam: Soft, Normal Bowel Sounds. absent: Distended, Firm, Guarding - Neurological Exam Neurological Exam: Alert, Awake, Oriented x3 - Skin Skin Exam: Dry, Intact, Normal Color, Warm Assessment and Plan - Assessment and Plan (Free Text) Assessment: 62 year old male with pat medical history non Non-Alcoholic Liver Cirrhosis, afib s/p cardioversion, HTN, GERD, CHF, and esophageal varices presents with right lower quadrant abdominal pain and back pain.Patient underwent US guided parcentesis, about 4L removed. Patient creatinine is not at baseline, possible HRS. Plan: History Non-Alcoholic Liver Cirrhosis with associated Esophageal Varices - Abdominal US: moderate free fluid with abdomen, likely ascites from cirrhosis - abd duplex showed patent portal vein, large ascites - s/p paracentesis 4.3 L removed - Meld 25 - continue rifaximin - lactulose decreased to 20 BID, will need to titrate to about 2 BM daily - Continue home Nadolol 10mg PO QD, Neutra-Phos supplementation - Zofran PRN - continue midodrine - Started octreotide for possible HRS, GI recommends continuing for at least 3 days Acute Kidney Injury - Creatinine 2.0, mild improvement not at baseline, 1.3 - Nephro consulted - urine electrolytes reviewed, Fractional excretion urea was 57.8%, indicating intrinsic renal disease - discussed with nephro to possibly hold octreotide and iv albumin to determine if creatinine continue to improve/stable, however GI recommends continuing for at least 3 days - will continue to monitor creatinine Abdominal Pain- improved - most likely due to ascite - Abdominal US: moderate free fluid with abdomen, likely ascites from cirrhosis , 0.7cm renal calculi - abd duplex showed patent portal vein, large ascites - Chest xray showing persistent right pleural effusion - zofran prn - monitor for pain level - GI follow, Dr. Paige - continue Albumin - IR following for paracentesis removed 4.3 L - No evidence of SBP Atrial Fibrillation s/p Cardioversion - heart rate stable - continue to monitor CAD s/p stent placement 09/06 - Continue home Aspirin 81mg - continue home med Midodrine 10mg PO TID CHF - hold diuretic due to KEYUR Diarrhea - most likely from lactulose - C diff toxin negative - improved with decreased lactulose Hypotension - yesterday 80/48 BP, BP improved 114/68 today - continue to monitor, if low will give IVF GI Prophylaxis: pepcid DVT Prophylaxis: SCD's <Otto Mccloud - Last Filed: 12/10/17 16:10> Objective - Vital Signs/Intake and Output Vital Signs (last 24 hours): Temp Pulse Resp BP Pulse Ox 97.9 F 60 20 114/68 98 12/10/17 06:00 12/10/17 09:38 12/10/17 06:00 12/10/17 09:38 12/10/17 06:00 Intake and Output: 12/10/17 12/10/17 06:59 18:59 Intake Total 2280 Output Total 300 Balance 1979 - Medications Medications: Current Medications Albumin Human (Albumin Human 25% (12.5 Gm/50 Ml)) 12.5 gm IV Q1 [facility] Stop: 12/15/17 07:31 Alprazolam (Xanax) 0.5 mg PO HS PRN; Protocol PRN Reason: Anxiety Last Admin: 12/09/17 23:17 Dose: 0.5 mg Ascorbic Acid (Vitamin C 500 Mg Tab) 1,000 mg PO BID [facility] Last Admin: 12/10/17 09:39 Dose: 1,000 mg Camphor/Menthol (Bengay) 0 gm TOP DAILY PRN PRN Reason: Pain, moderate (4-7) Last Admin: 12/09/17 05:39 Dose: 1 applic Cholecalciferol (Vitamin D) 2,000 intlu PO DAILY [facility] Last Admin: 12/10/17 09:39 Dose: 2,000 intlu Cyanocobalamin (Vitamin B12 1000 Mcg Tab) 1,000 mcg PO DAILY [facility] Last Admin: 12/10/17 09:43 Dose: 1,000 mcg Famotidine (Pepcid) 20 mg PO BID [facility] Last Admin: 12/10/17 09:38 Dose: 20 mg Lactulose (Enulose) 20 gm PO BID [facility] Last Admin: 12/10/17 09:38 Dose: 20 gm Midodrine (Proamatine) 10 mg PO TID [facility] Last Admin: 12/10/17 13:33 Dose: 10 mg Nadolol (Corgard) 10 mg PO DAILY [facility] Last Admin: 12/10/17 09:38 Dose: 10 mg Octreotide Acetate (Sandostatin) 200 mcg SC TID [facility] Last Admin: 12/10/17 14:52 Dose: 200 mcg Ondansetron HCl (Zofran Inj) 4 mg IVP Q6H PRN PRN Reason: Nausea/Vomiting Last Admin: 12/10/17 04:22 Dose: 4 mg Potassium Phos/Sodium Phos (Neutra-Phos) 2 pkt PO BID [facility] Last Admin: 12/10/17 09:40 Dose: 2 pkt Rifaximin (Xifaxan) 550 mg PO BID [facility] PRN Reason: Protocol Last Admin: 12/10/17 09:39 Dose: 550 mg - Labs Labs: 12/10/17 07:30 12/10/17 07:30 PT 16.8 SECONDS (9.4-12.5) H 12/10/17 07:30 INR 1.45 (0.93-1.08) H 12/10/17 07:30 APTT 36.2 Seconds (25.1-36.5) 12/06/17 13:55 Attending/Attestation - Attestation I have personally seen and examined this patient.: Yes I have fully participated in the care of the patient.: Yes I have reviewed all pertinent clinical information, including history, physical exam and plan: Yes Notes (Text): 12/10/17 16:08 62 year old male with past medical history of cirrhosis, afib s/p cardioversion , hypertension and esophageal varices who presented with abdominal pain. US abdomen showed moderate ascites. He is s/p paracentesis with 4.3 liters removed. He is being followed by GI and currently on iv albumin, midodrine and octeotride for possible HRS. Creatinine is slowly improving. Will continue to monitor. Diarrhea also has improved. Continue to hold diuretics and monitor kidney function closely. Continue to monitor anemia closely. Otto Mccloud MD Hospitalist.
[2017-12-10] MEDS ORDERED: Morphine 2 mg/ml ISec IVP STA (21:21)
--- NOTE | 2017-12-11 06:02 | CP.PCM.PN ---
<Laney Alatorre - Last Filed: 12/11/17 09:37> Subjective - Date & Time of Evaluation Date of Evaluation: 12/11/17 Time of Evaluation: 05:59 - Subjective Subjective: Gastroenterology Fellow/PGY5 Progress Note Patient feels well. No further episodes of vomiting confirmed by nursing. Tolerating diet. Three bowel movements yesterday. A 12-point review of systems negative except for as above. Objective - Vital Signs/Intake and Output Vital Signs (last 24 hours): Temp Pulse Resp BP Pulse Ox 97.7 F 66 20 107/58 L 97 12/10/17 16:30 12/10/17 16:30 12/10/17 16:30 12/10/17 16:30 12/10/17 16:30 Intake and Output: 12/10/17 12/11/17 18:59 06:59 Intake Total 240 Balance 240 - Medications Medications: Current Medications Albumin Human (Albumin Human 25% (12.5 Gm/50 Ml)) 12.5 gm IV Q1 [facility] Stop: 12/15/17 07:31 Alprazolam (Xanax) 0.5 mg PO HS PRN; Protocol PRN Reason: Anxiety Last Admin: 12/10/17 22:14 Dose: 0.5 mg Ascorbic Acid (Vitamin C 500 Mg Tab) 1,000 mg PO BID [facility] Last Admin: 12/10/17 17:24 Dose: 1,000 mg Camphor/Menthol (Bengay) 0 gm TOP DAILY PRN PRN Reason: Pain, moderate (4-7) Last Admin: 12/09/17 05:39 Dose: 1 applic Cholecalciferol (Vitamin D) 2,000 intlu PO DAILY [facility] Last Admin: 12/10/17 09:39 Dose: 2,000 intlu Cyanocobalamin (Vitamin B12 1000 Mcg Tab) 1,000 mcg PO DAILY [facility] Last Admin: 12/10/17 09:43 Dose: 1,000 mcg Famotidine (Pepcid) 20 mg PO BID [facility] Last Admin: 12/10/17 17:24 Dose: 20 mg Lactulose (Enulose) 20 gm PO BID [facility] Last Admin: 12/10/17 17:24 Dose: 20 gm Midodrine (Proamatine) 10 mg PO TID [facility] Last Admin: 12/10/17 17:24 Dose: 10 mg Nadolol (Corgard) 10 mg PO DAILY [facility] Last Admin: 12/10/17 09:38 Dose: 10 mg Octreotide Acetate (Sandostatin) 200 mcg SC TID [facility] Last Admin: 12/10/17 14:52 Dose: 200 mcg Ondansetron HCl (Zofran Inj) 4 mg IVP Q6H PRN PRN Reason: Nausea/Vomiting Last Admin: 12/10/17 18:59 Dose: 4 mg Potassium Phos/Sodium Phos (Neutra-Phos) 2 pkt PO BID [facility] Last Admin: 12/10/17 17:24 Dose: 2 pkt Rifaximin (Xifaxan) 550 mg PO BID [facility] PRN Reason: Protocol Last Admin: 12/10/17 17:24 Dose: 550 mg - Labs Labs: 12/10/17 07:30 12/10/17 07:30 PT 16.8 SECONDS (9.4-12.5) H 12/10/17 07:30 INR 1.45 (0.93-1.08) H 12/10/17 07:30 APTT 36.2 Seconds (25.1-36.5) 12/06/17 13:55 - Constitutional Appears: Non-toxic, No Acute Distress - Head Exam Head Exam: ATRAUMATIC, NORMOCEPHALIC - Eye Exam Eye Exam: EOMI, PERRL Pupil Exam: PERRL. absent: Miosis, Mydriatic - ENT Exam ENT Exam: Mucous Membranes Moist, Normal Oropharynx - Neck Exam Neck Exam: Full ROM, Normal Inspection - Respiratory Exam Respiratory Exam: Clear to Ausculation Bilateral. absent: Rales, Rhonchi, Wheezes - Cardiovascular Exam Cardiovascular Exam: RRR, +S1, +S2. absent: Gallop, Rubs - GI/Abdominal Exam GI & Abdominal Exam: Soft, Normal Bowel Sounds. absent: Distended, Firm, Guarding, Rigid, Tenderness, Organomegaly - Extremities Exam Extremities Exam: Full ROM, Normal Inspection. absent: Pedal Edema - Neurological Exam Neurological Exam: Alert, Awake - Psychiatric Exam Psychiatric exam: Normal Affect, Normal Mood - Skin Skin Exam: Dry, Intact, Normal Color, Warm Assessment and Plan - Assessment and Plan (Free Text) Assessment: 62 year male with history of CAD s/p stent, CHF, Atrial fibrillation s/p cardioversion, Hypertension, decompensated cryptogenic cirrhosis (UGIB 2/2 large esophageal varices s/p 9 bands 09/2017, recurrent LV paracentesis x3 (2016, 11/2017), and hepatic encephalopathy (08/2017) and 09/2017)) presenting with abdominal pain and distension. Active treatment of decompensated cirrhosis 2/2 ascites POD3 (12/08) 4.3L paracentesis (negative for SBP) and concern for hepatorenal syndrome given KEYUR on HRS protocol. Plan: >MELD 19 >received HRS protocol 12/09 with albumin, midodrine, octreotide >12/10 only received midodrine and octreotide; albumin 70g was ordered and not administered >reordered full HRS protocol today- discussed with nursing and pharmacy >renal function improving >hold diuretics and avoid nephrotoxic medications >continue Rifaximin and Lactulose, titrate to 2-3 BMs/day >strict I&Os >will follow clinical course <Pedro Paige - Last Filed: 12/11/17 16:34> Objective - Vital Signs/Intake and Output Vital Signs (last 24 hours): Temp Pulse Resp BP Pulse Ox 98.5 F 56 L 20 113/57 L 99 12/11/17 06:00 12/11/17 06:00 12/11/17 06:00 12/11/17 06:00 12/11/17 06:00 Intake and Output: 12/11/17 12/11/17 06:59 18:59 Intake Total 240 Output Total 0 Balance 240 - Medications Medications: Current Medications Alprazolam (Xanax) 0.5 mg PO HS PRN; Protocol PRN Reason: Anxiety Last Admin: 12/10/17 22:14 Dose: 0.5 mg Ascorbic Acid (Vitamin C 500 Mg Tab) 1,000 mg PO BID [facility] Last Admin: 12/11/17 10:21 Dose: 1,000 mg Camphor/Menthol (Bengay) 0 gm TOP DAILY PRN PRN Reason: Pain, moderate (4-7) Last Admin: 12/09/17 05:39 Dose: 1 applic Cholecalciferol (Vitamin D) 2,000 intlu PO DAILY [facility] Last Admin: 12/11/17 10:20 Dose: 2,000 intlu Cyanocobalamin (Vitamin B12 1000 Mcg Tab) 1,000 mcg PO DAILY [facility] Last Admin: 12/11/17 10:24 Dose: 1,000 mcg Famotidine (Pepcid) 20 mg PO BID [facility] Last Admin: 12/11/17 10:20 Dose: 20 mg Lactulose (Enulose) 20 gm PO BID [facility] Last Admin: 12/11/17 10:21 Dose: 20 gm Midodrine (Proamatine) 10 mg PO TID [facility] Last Admin: 12/11/17 13:39 Dose: 10 mg Nadolol (Corgard) 10 mg PO DAILY [facility] Last Admin: 12/11/17 10:20 Dose: 10 mg Octreotide Acetate (Sandostatin) 200 mcg SC TID [facility] Last Admin: 12/11/17 13:39 Dose: 200 mcg Ondansetron HCl (Zofran Inj) 4 mg IVP Q6H PRN PRN Reason: Nausea/Vomiting Last Admin: 12/10/17 18:59 Dose: 4 mg Potassium Phos/Sodium Phos (Neutra-Phos) 2 pkt PO BID [facility] Last Admin: 12/11/17 10:21 Dose: 2 pkt Rifaximin (Xifaxan) 550 mg PO BID [facility] PRN Reason: Protocol Last Admin: 12/11/17 10:20 Dose: 550 mg Tramadol HCl (Ultram) 25 mg PO Q6 PRN PRN Reason: Pain, moderate (4-7) - Labs Labs: 12/11/17 07:00 12/11/17 07:00 PT 16.5 SECONDS (9.4-12.5) H 12/11/17 07:00 INR 1.42 (0.93-1.08) H 12/11/17 07:00 APTT 36.2 Seconds (25.1-36.5) 12/06/17 13:55 Attending/Attestation - Attestation I have personally seen and examined this patient.: Yes I have fully participated in the care of the patient.: Yes I have reviewed all pertinent clinical information, including history, physical exam and plan: Yes Notes (Text): 12/11/17 16:33 62 year male with h/o CAD s/p stent, CHF, Afib, HTN, Cirrhosis c/b esophageal varices s/p banding, HE, and ascites, now with renal failure. 1. Cirrhosis 2. Ascites 3. Acute renal insufficiency 4. Hepatic encephalopathy Plan: -kidney function improving -continue HRS cocktail including midodrine, octreotide, albumin -hold diuretics -continue lactulose/rifaxamin -monitor urine output
[2017-12-11 07:28] LABS: BASO # 0.06 K/mm3 (0.0-2.0); BASO % 1.1 % (0.0-3.0); EOS # 0.3 (0.0-0.7); EOS % 5.8 % (1.5-5.0); GRAN # 2.97 (1.4-6.5); GRAN % 52.1 % (50.0-68.0); HEMOGLOBIN 8.5 g/dL (14.0-18.0); LYMPH # 1.3 (1.2-3.4); LYMPH % 22.6 % (22.0-35.0); MEAN CELL VOLUME 95.3 fl (80.0-105.0); MEAN CORPUSCULAR HEMOGLOBIN 30.6 pg (25.0-35.0); MEAN CORPUSCULAR HGB CONC 32.1 g/dl (31.0-37.0); MEAN PLATELET VOLUME 9.9 fl (7.0-11.0); MONO # 1.1 (0.1-0.6); MONO % 18.4 % (1.0-6.0); RBC 2.78 10^6/uL (3.5-6.1); RED CELL DISTRIBUTION WIDTH 18.2 % (11.5-14.5); WHITE BLOOD COUNT 5.7 10^3/ul (4.5-11.0)
--- NOTE | 2017-12-11 07:29 | CP.PCM.PN ---
<Sandi Velásquez - Last Filed: 12/11/17 12:13> Subjective - Date & Time of Evaluation Date of Evaluation: 12/11/17 Time of Evaluation: 08:30 - Subjective Subjective: PGY-2 progress note for hospitalist service Patient seen and examined at bedside. No acute distress. patient states that overall he feels weak today. Overnight patient complained of right sided back/ flank pain, requiring morphine. He also reports vomiting overnight, this morning he states that he still felt nauseous but was able to eat his breakfast. He reports 2 bowel movements overnight. Objective - Vital Signs/Intake and Output Vital Signs (last 24 hours): Temp Pulse Resp BP Pulse Ox 97.7 F 66 20 107/58 L 97 12/10/17 16:30 12/10/17 16:30 12/10/17 16:30 12/10/17 16:30 12/10/17 16:30 Intake and Output: 12/11/17 12/11/17 06:59 18:59 Intake Total 240 Output Total 0 Balance 240 - Medications Medications: Current Medications Albumin Human (Albumin Human 25% (12.5 Gm/50 Ml)) 12.5 gm IV Q1 [facility] Stop: 12/15/17 07:31 Alprazolam (Xanax) 0.5 mg PO HS PRN; Protocol PRN Reason: Anxiety Last Admin: 12/10/17 22:14 Dose: 0.5 mg Ascorbic Acid (Vitamin C 500 Mg Tab) 1,000 mg PO BID [facility] Last Admin: 12/10/17 17:24 Dose: 1,000 mg Camphor/Menthol (Bengay) 0 gm TOP DAILY PRN PRN Reason: Pain, moderate (4-7) Last Admin: 12/09/17 05:39 Dose: 1 applic Cholecalciferol (Vitamin D) 2,000 intlu PO DAILY [facility] Last Admin: 12/10/17 09:39 Dose: 2,000 intlu Cyanocobalamin (Vitamin B12 1000 Mcg Tab) 1,000 mcg PO DAILY [facility] Last Admin: 12/10/17 09:43 Dose: 1,000 mcg Famotidine (Pepcid) 20 mg PO BID [facility] Last Admin: 12/10/17 17:24 Dose: 20 mg Lactulose (Enulose) 20 gm PO BID [facility] Last Admin: 12/10/17 17:24 Dose: 20 gm Midodrine (Proamatine) 10 mg PO TID [facility] Last Admin: 12/10/17 17:24 Dose: 10 mg Nadolol (Corgard) 10 mg PO DAILY [facility] Last Admin: 12/10/17 09:38 Dose: 10 mg Octreotide Acetate (Sandostatin) 200 mcg SC TID [facility] Last Admin: 12/10/17 14:52 Dose: 200 mcg Ondansetron HCl (Zofran Inj) 4 mg IVP Q6H PRN PRN Reason: Nausea/Vomiting Last Admin: 12/10/17 18:59 Dose: 4 mg Potassium Phos/Sodium Phos (Neutra-Phos) 2 pkt PO BID [facility] Last Admin: 12/10/17 17:24 Dose: 2 pkt Rifaximin (Xifaxan) 550 mg PO BID [facility] PRN Reason: Protocol Last Admin: 12/10/17 17:24 Dose: 550 mg - Labs Labs: 12/10/17 07:30 12/10/17 07:30 PT 16.8 SECONDS (9.4-12.5) H 12/10/17 07:30 INR 1.45 (0.93-1.08) H 12/10/17 07:30 APTT 36.2 Seconds (25.1-36.5) 12/06/17 13:55 - Constitutional Appears: No Acute Distress - Head Exam Head Exam: ATRAUMATIC, NORMAL INSPECTION, NORMOCEPHALIC - Eye Exam Eye Exam: EOMI, Normal appearance - ENT Exam ENT Exam: Mucous Membranes Moist - Respiratory Exam Respiratory Exam: Clear to Ausculation Bilateral, NORMAL BREATHING PATTERN. absent: Rales, Rhonchi, Wheezes, Respiratory Distress - Cardiovascular Exam Cardiovascular Exam: REGULAR RHYTHM - GI/Abdominal Exam GI & Abdominal Exam: Soft, Normal Bowel Sounds. absent: Distended, Firm, Tenderness - Extremities Exam Extremities Exam: Normal Inspection - Back Exam Additional comments: flank tenderness, right side - Neurological Exam Neurological Exam: Alert, Awake, Oriented x3 - Skin Skin Exam: Dry, Intact, Normal Color, Warm Assessment and Plan - Assessment and Plan (Free Text) Assessment: 62 year old male with pat medical history non Non-Alcoholic Liver Cirrhosis, afib s/p cardioversion, HTN, GERD, CHF, and esophageal varices presents with right lower quadrant abdominal pain and back pain.Patient underwent US guided parcentesis, about 4L removed. Patient creatinine is not at baseline, possible HRS. Creatinine is improving. Plan: History Non-Alcoholic Liver Cirrhosis with associated Esophageal Varices - Abdominal US: moderate free fluid with abdomen, likely ascites from cirrhosis - abd duplex showed patent portal vein, large ascites - s/p paracentesis 4.3 L removed - continue rifaximin - continue lactulose 20 BID, will need to titrate to about 2-3 BM daily - Continue home Nadolol 10mg PO QD, Neutra-Phos supplementation - Zofran PRN - continue midodrine - Started octreotide for possible HRS, GI recommends continuing for at least 3 days Acute Kidney Injury - Creatinine 1.7, improved , baseline 1.3 - Nephro consulted - urine electrolytes reviewed, Fractional excretion urea was 57.8%, indicating intrinsic renal disease - discussed with nephro to possibly hold octreotide and iv albumin to determine if creatinine continue to improve/stable, however GI recommends continuing for at least 3 days - will continue to monitor creatinine Abdominal Pain- improved - most likely due to ascite - Abdominal US: moderate free fluid with abdomen, likely ascites from cirrhosis , 0.7cm renal calculi - abd duplex showed patent portal vein, large ascites - Chest xray showing persistent right pleural effusion - zofran prn - monitor for pain level - GI follow, Dr. Paige - continue Albumin - IR following for paracentesis removed 4.3 L - No evidence of SBP back pain - abd US moderate free fluid with abdomen, likely ascites from cirrhosis, 0.7cm renal calculi - tramadol prn Atrial Fibrillation s/p Cardioversion - heart rate stable - continue to monitor CAD s/p stent placement 09/06 - Continue home Aspirin 81mg - continue home med Midodrine 10mg PO TID CHF - hold diuretic due to KEYUR Diarrhea - most likely from lactulose - C diff toxin negative - improved with decreased lactulose Hypotension - yesterday 80/48 BP, BP improved 114/68 today - continue to monitor, if low will give IVF GI Prophylaxis: pepcid DVT Prophylaxis: SCD's <Otto Mccloud - Last Filed: 12/11/17 13:06> Objective - Vital Signs/Intake and Output Vital Signs (last 24 hours): Temp Pulse Resp BP Pulse Ox 98.5 F 56 L 20 113/57 L 99 12/11/17 06:00 12/11/17 06:00 12/11/17 06:00 12/11/17 06:00 12/11/17 06:00 Intake and Output: 12/11/17 12/11/17 06:59 18:59 Intake Total 240 Output Total 0 Balance 240 - Medications Medications: Current Medications Albumin Human (Albumin Human 25% (12.5 Gm/50 Ml)) 12.5 gm IV Q1H [facility] Stop: 12/11/17 13:31 Last Admin: 12/11/17 12:45 Dose: 12.5 gm Alprazolam (Xanax) 0.5 mg PO HS PRN; Protocol PRN Reason: Anxiety Last Admin: 12/10/17 22:14 Dose: 0.5 mg Ascorbic Acid (Vitamin C 500 Mg Tab) 1,000 mg PO BID [facility] Last Admin: 12/11/17 10:21 Dose: 1,000 mg Camphor/Menthol (Bengay) 0 gm TOP DAILY PRN PRN Reason: Pain, moderate (4-7) Last Admin: 12/09/17 05:39 Dose: 1 applic Cholecalciferol (Vitamin D) 2,000 intlu PO DAILY [facility] Last Admin: 12/11/17 10:20 Dose: 2,000 intlu Cyanocobalamin (Vitamin B12 1000 Mcg Tab) 1,000 mcg PO DAILY [facility] Last Admin: 12/11/17 10:24 Dose: 1,000 mcg Famotidine (Pepcid) 20 mg PO BID [facility] Last Admin: 12/11/17 10:20 Dose: 20 mg Lactulose (Enulose) 20 gm PO BID [facility] Last Admin: 12/11/17 10:21 Dose: 20 gm Midodrine (Proamatine) 10 mg PO TID [facility] Last Admin: 12/11/17 10:20 Dose: 10 mg Nadolol (Corgard) 10 mg PO DAILY [facility] Last Admin: 12/11/17 10:20 Dose: 10 mg Octreotide Acetate (Sandostatin) 200 mcg SC TID [facility] Last Admin: 12/11/17 10:20 Dose: 200 mcg Ondansetron HCl (Zofran Inj) 4 mg IVP Q6H PRN PRN Reason: Nausea/Vomiting Last Admin: 12/10/17 18:59 Dose: 4 mg Potassium Phos/Sodium Phos (Neutra-Phos) 2 pkt PO BID [facility] Last Admin: 12/11/17 10:21 Dose: 2 pkt Rifaximin (Xifaxan) 550 mg PO BID [facility] PRN Reason: Protocol Last Admin: 12/11/17 10:20 Dose: 550 mg Tramadol HCl (Ultram) 25 mg PO Q6 PRN PRN Reason: Pain, moderate (4-7) - Labs Labs: 12/11/17 07:00 12/11/17 07:00 PT 16.5 SECONDS (9.4-12.5) H 12/11/17 07:00 INR 1.42 (0.93-1.08) H 12/11/17 07:00 APTT 36.2 Seconds (25.1-36.5) 12/06/17 13:55 Attending/Attestation - Attestation I have personally seen and examined this patient.: Yes I have fully participated in the care of the patient.: Yes I have reviewed all pertinent clinical information, including history, physical exam and plan: Yes Notes (Text): 12/11/17 13:04 62 year old male with past medical history of cirrhosis, afib s/p cardioversion , hypertension and esophageal varices who presented with abdominal pain. US abdomen showed moderate ascites. He is s/p paracentesis with 4.3 liters removed. He is being followed by GI and nephrology and currently on iv albumin, midodrine and octeotride for possible HRS. Creatinine is slowly improving. Will continue to monitor. Diarrhea also has resolved. Continue to hold diuretics and monitor kidney function closely. Continue to monitor anemia closely. Possible d/c planning in 24-48 hrs if kidney function continues to improve to baseline. Otto Mccloud MD Hospitalist.
[2017-12-11 07:55] LABS: ALB/GLOB RATIO 0.8 (1.1-1.8); ALBUMIN 3.3 g/dL (3.0-4.8); CALCIUM 9.4 mg/dL (8.4-10.5)
[2017-12-11 08:06] LABS: INR 1.42 (0.93-1.08); PROTHROMBIN TIME 16.5 SECONDS (9.4-12.5)
[2017-12-11] MEDS: Albumin Human 25% (12.5 gm/50 ml) IV SCH ×4 (10:18→12:45)
[2017-12-11] MEDS: Cholecalciferol 1,000 INTLU TAB PO SCH (10:20)
[2017-12-11] MEDS: Potassium & Sodium Phosphate PO SCH ×2 (10:21→17:00)
--- NOTE | 2017-12-11 14:37 | CP.PCM.PN ---
Subjective - Date & Time of Evaluation Date of Evaluation: 12/11/17 Time of Evaluation: 14:36 - Subjective Subjective: RENAL PROGRESS NOTE Assessment: Stable Acute Kidney Injury (N17.9) possibly due to acute tubular necrosis, hemodynamic (due to low BP, meds as aldactone/lasix) v hrs Chronic Kidney Disease (N18.3) Stage 3 likely due to AKIs hyperkalemia Anemia (D64.9), Non-Alcoholic Liver Cirrhosis, afib s/p cardioversion, HTN, GERD , and esophageal varices Plan No acute need for renal replacement therapy at this time. Cr continues to slowly improve on octreotid per GI reccs give high normal K recc reduce neutraphos to 1 tab bid instead of 2 tabs po bid monitor H an h Subjective: feels good denies complaints today. Physical Examination: General Appearance: Comfortable, in no acute respiratory distress, co-operative . facial muscle wasting noted Vitals reviewed and noted as below Head; Atraumatic, normocephalic ENT: no ulcers no thrush. Tongue is midline. Oropharynx: no rash or ulcers. EYES: Pupils are equal Eye muscles and extraocular movement intact. Sclera is anicteric. Neck; supple no lymphadenopathy, no thyromegaly or bruit Lungs: Normal respiratory rate/effort. Breath sounds bilateral equal and clear Heart: Normal rate. s1s2 normal. No rub or gallop. Extremities: no edema. No varicose veins Neurological: Patient is alert, awake and oriented to person, place and time. No focal deficit. Strength bilateral appropriate and equal Skin: Warm and dry. Normal turgor. No rash. Palpitation: Normal elasticity for age Abdomen: Abdomen is soft. Bowel sounds +. There is no abdominal tenderness, no guarding/rigidity no organomegaly Psych: normal insight and normal affect/mood MSK: no joint tenderness or swelling. Digits and nails normal, no deformity : kidney or bladder not palpable Labs/imaging reviewed. Past medical history, past surgical history, family history, social history, allergy reviewed and noted as below Family hx: no hx of CKD. Rest non-contributory US reviewed Objective - Vital Signs/Intake and Output Vital Signs (last 24 hours): Temp Pulse Resp BP Pulse Ox 98.5 F 56 L 20 113/57 L 99 12/11/17 06:00 12/11/17 06:00 12/11/17 06:00 12/11/17 06:00 12/11/17 06:00 Intake and Output: 12/11/17 12/11/17 06:59 18:59 Intake Total 240 Output Total 0 Balance 240 - Medications Medications: Current Medications Alprazolam (Xanax) 0.5 mg PO HS PRN; Protocol PRN Reason: Anxiety Last Admin: 12/10/17 22:14 Dose: 0.5 mg Ascorbic Acid (Vitamin C 500 Mg Tab) 1,000 mg PO BID [facility] Last Admin: 12/11/17 10:21 Dose: 1,000 mg Camphor/Menthol (Bengay) 0 gm TOP DAILY PRN PRN Reason: Pain, moderate (4-7) Last Admin: 12/09/17 05:39 Dose: 1 applic Cholecalciferol (Vitamin D) 2,000 intlu PO DAILY [facility] Last Admin: 12/11/17 10:20 Dose: 2,000 intlu Cyanocobalamin (Vitamin B12 1000 Mcg Tab) 1,000 mcg PO DAILY [facility] Last Admin: 12/11/17 10:24 Dose: 1,000 mcg Famotidine (Pepcid) 20 mg PO BID [facility] Last Admin: 12/11/17 10:20 Dose: 20 mg Lactulose (Enulose) 20 gm PO BID [facility] Last Admin: 12/11/17 10:21 Dose: 20 gm Midodrine (Proamatine) 10 mg PO TID [facility] Last Admin: 12/11/17 13:39 Dose: 10 mg Nadolol (Corgard) 10 mg PO DAILY [facility] Last Admin: 12/11/17 10:20 Dose: 10 mg Octreotide Acetate (Sandostatin) 200 mcg SC TID [facility] Last Admin: 12/11/17 13:39 Dose: 200 mcg Ondansetron HCl (Zofran Inj) 4 mg IVP Q6H PRN PRN Reason: Nausea/Vomiting Last Admin: 12/10/17 18:59 Dose: 4 mg Potassium Phos/Sodium Phos (Neutra-Phos) 2 pkt PO BID [facility] Last Admin: 12/11/17 10:21 Dose: 2 pkt Rifaximin (Xifaxan) 550 mg PO BID [facility] PRN Reason: Protocol Last Admin: 12/11/17 10:20 Dose: 550 mg Tramadol HCl (Ultram) 25 mg PO Q6 PRN PRN Reason: Pain, moderate (4-7) - Labs Labs: 12/11/17 07:00 12/11/17 07:00 PT 16.5 SECONDS (9.4-12.5) H 12/11/17 07:00 INR 1.42 (0.93-1.08) H 12/11/17 07:00 APTT 36.2 Seconds (25.1-36.5) 12/06/17 13:55
[2017-12-12 06:45] LABS: BASO # 0.06 K/mm3 (0.0-2.0); EOS # 0.3 (0.0-0.7); EOS % 4.3 % (1.5-5.0); GRAN # 3.07 (1.4-6.5); GRAN % 53.2 % (50.0-68.0); HEMOGLOBIN 8.2 g/dL (14.0-18.0); LYMPH # 1.3 (1.2-3.4); LYMPH % 22.4 % (22.0-35.0); MEAN CELL VOLUME 94.7 fl (80.0-105.0); MEAN CORPUSCULAR HEMOGLOBIN 30.8 pg (25.0-35.0); MEAN CORPUSCULAR HGB CONC 32.5 g/dl (31.0-37.0); MEAN PLATELET VOLUME 10.4 fl (7.0-11.0); MONO # 1.1 (0.1-0.6); MONO % 19.1 % (1.0-6.0); RBC 2.66 10^6/uL (3.5-6.1); RED CELL DISTRIBUTION WIDTH 18.3 % (11.5-14.5); WHITE BLOOD COUNT 5.8 10^3/ul (4.5-11.0)
[2017-12-12 06:54] LABS: ALBUMIN 3.8 g/dL (3.0-4.8); CALCIUM 9.4 mg/dL (8.4-10.5)
[2017-12-12 06:58] LABS: INR 1.53 (0.93-1.08); PROTHROMBIN TIME 17.7 SECONDS (9.4-12.5)
--- NOTE | 2017-12-12 07:35 | CP.PCM.PN ---
<Laney Alatorre - Last Filed: 12/12/17 10:30> Subjective - Date & Time of Evaluation Date of Evaluation: 12/12/17 Time of Evaluation: 07:31 - Subjective Subjective: Gastroenterology Fellow/PGY5 Progress Note Patient denies vomiting. Tolerating diet. Three bowel movements yesterday. A 12- point review of systems negative except for as above. Objective - Vital Signs/Intake and Output Vital Signs (last 24 hours): Temp Pulse Resp BP Pulse Ox 98.3 F 59 L 19 104/55 L 97 12/11/17 17:02 12/11/17 17:02 12/11/17 17:02 12/11/17 17:02 12/11/17 17:02 Intake and Output: 12/12/17 12/12/17 06:59 18:59 Intake Total 360 Balance 360 - Medications Medications: Current Medications Alprazolam (Xanax) 0.5 mg PO HS PRN; Protocol PRN Reason: Anxiety Last Admin: 12/11/17 21:04 Dose: 0.5 mg Ascorbic Acid (Vitamin C 500 Mg Tab) 1,000 mg PO BID [facility] Last Admin: 12/11/17 17:01 Dose: 1,000 mg Camphor/Menthol (Bengay) 0 gm TOP DAILY PRN PRN Reason: Pain, moderate (4-7) Last Admin: 12/09/17 05:39 Dose: 1 applic Cholecalciferol (Vitamin D) 2,000 intlu PO DAILY [facility] Last Admin: 12/11/17 10:20 Dose: 2,000 intlu Cyanocobalamin (Vitamin B12 1000 Mcg Tab) 1,000 mcg PO DAILY [facility] Last Admin: 12/11/17 10:24 Dose: 1,000 mcg Famotidine (Pepcid) 20 mg PO BID [facility] Last Admin: 12/11/17 17:00 Dose: 20 mg Lactulose (Enulose) 20 gm PO BID [facility] Last Admin: 12/11/17 17:00 Dose: 20 gm Midodrine (Proamatine) 10 mg PO TID [facility] Last Admin: 12/11/17 17:01 Dose: 10 mg Nadolol (Corgard) 10 mg PO DAILY [facility] Last Admin: 12/11/17 10:20 Dose: 10 mg Octreotide Acetate (Sandostatin) 200 mcg SC TID [facility] Last Admin: 12/11/17 17:00 Dose: 200 mcg Ondansetron HCl (Zofran Inj) 4 mg IVP Q6H PRN PRN Reason: Nausea/Vomiting Last Admin: 12/12/17 03:39 Dose: 4 mg Potassium Phos/Sodium Phos (Neutra-Phos) 2 pkt PO BID [facility] Last Admin: 12/11/17 17:00 Dose: 2 pkt Rifaximin (Xifaxan) 550 mg PO BID [facility] PRN Reason: Protocol Last Admin: 12/11/17 17:00 Dose: 550 mg Tramadol HCl (Ultram) 25 mg PO Q6 PRN PRN Reason: Pain, moderate (4-7) Last Admin: 12/11/17 21:05 Dose: 25 mg - Labs Labs: 12/12/17 05:45 12/12/17 05:45 PT 17.7 SECONDS (9.4-12.5) H 12/12/17 05:45 INR 1.53 (0.93-1.08) H 12/12/17 05:45 APTT 36.2 Seconds (25.1-36.5) 12/06/17 13:55 - Constitutional Appears: Non-toxic, No Acute Distress - Head Exam Head Exam: ATRAUMATIC, NORMOCEPHALIC - Eye Exam Eye Exam: EOMI, PERRL. absent: Scleral icterus Pupil Exam: PERRL. absent: Miosis, Mydriatic - ENT Exam ENT Exam: Mucous Membranes Moist, Normal Oropharynx - Neck Exam Neck Exam: Full ROM, Normal Inspection - Respiratory Exam Respiratory Exam: Clear to Ausculation Bilateral. absent: Rales, Rhonchi, Wheezes - Cardiovascular Exam Cardiovascular Exam: RRR, +S1, +S2. absent: Gallop, Rubs - GI/Abdominal Exam GI & Abdominal Exam: Soft, Tenderness, Normal Bowel Sounds. absent: Distended, Firm, Guarding, Rigid, Organomegaly, Rebound Additional comments: mild right flank discomfort - Extremities Exam Extremities Exam: Normal Inspection. 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 Active treatment of hepatorenal syndrome and decompensated cirrhosis 2/2 ascites POD4 (12/08) 4.3L paracentesis (negative for SBP). Plan: >MELD 18 >received three days of HRS protocol >renal function improved, almost to baseline >continue day 4 HRS protocol to ensure return of renal function prior to discharge >hold diuretics and avoid nephrotoxic medications >continue Rifaximin and Lactulose, titrate to 2-3 BMs/day >outpatient follow up for EGD for variceal surveillance and colonoscopy for CRC screening <Delonte Garcia - Last Filed: 12/12/17 16:30> Objective - Vital Signs/Intake and Output Vital Signs (last 24 hours): Temp Pulse Resp BP Pulse Ox 98.8 F 53 L 18 104/58 L 98 12/12/17 08:26 12/12/17 08:26 12/12/17 08:26 12/12/17 08:26 12/12/17 08:26 Intake and Output: 12/12/17 12/12/17 06:59 18:59 Intake Total 360 Balance 360 - Medications Medications: Current Medications Alprazolam (Xanax) 0.5 mg PO HS PRN; Protocol PRN Reason: Anxiety Last Admin: 12/11/17 21:04 Dose: 0.5 mg Ascorbic Acid (Vitamin C 500 Mg Tab) 1,000 mg PO BID [facility] Last Admin: 12/12/17 09:10 Dose: 1,000 mg Camphor/Menthol (Bengay) 0 gm TOP DAILY PRN PRN Reason: Pain, moderate (4-7) Last Admin: 12/09/17 05:39 Dose: 1 applic Cholecalciferol (Vitamin D) 2,000 intlu PO DAILY [facility] Last Admin: 12/12/17 09:09 Dose: 2,000 intlu Cyanocobalamin (Vitamin B12 1000 Mcg Tab) 1,000 mcg PO DAILY [facility] Last Admin: 12/12/17 09:09 Dose: 1,000 mcg Famotidine (Pepcid) 20 mg PO BID [facility] Last Admin: 12/12/17 09:06 Dose: 20 mg Lactulose (Enulose) 20 gm PO BID [facility] Last Admin: 12/12/17 09:05 Dose: 20 gm Midodrine (Proamatine) 10 mg PO TID [facility] Last Admin: 12/12/17 14:26 Dose: 10 mg Nadolol (Corgard) 10 mg PO DAILY [facility] Last Admin: 12/12/17 09:05 Dose: 10 mg Octreotide Acetate (Sandostatin) 200 mcg SC TID [facility] Last Admin: 12/12/17 14:29 Dose: 200 mcg Ondansetron HCl (Zofran Inj) 4 mg IVP Q6H PRN PRN Reason: Nausea/Vomiting Last Admin: 12/12/17 03:39 Dose: 4 mg Potassium Phos/Sodium Phos (Neutra-Phos) 2 pkt PO BID [facility] Last Admin: 12/12/17 09:06 Dose: 2 pkt Rifaximin (Xifaxan) 550 mg PO BID [facility] PRN Reason: Protocol Last Admin: 12/12/17 09:10 Dose: 550 mg Tramadol HCl (Ultram) 25 mg PO Q6 PRN PRN Reason: Pain, moderate (4-7) Last Admin: 12/11/17 21:05 Dose: 25 mg - Labs Labs: 12/12/17 05:45 12/12/17 05:45 PT 17.7 SECONDS (9.4-12.5) H 12/12/17 05:45 INR 1.53 (0.93-1.08) H 12/12/17 05:45 APTT 36.2 Seconds (25.1-36.5) 12/06/17 13:55 Attending/Attestation - Attestation I have personally seen and examined this patient.: Yes I have fully participated in the care of the patient.: Yes I have reviewed all pertinent clinical information, including history, physical exam and plan: Yes Notes (Text): 12/12/17 16:27 I have seen and examined patient with GI fellow. No acute events overnight, he is seen resting in bed comfortably. He denies abdominal pain, nausea, vomiting , fever/chills. Tolerating PO diet without difficulty. Patient is having appropriate bowel movements on lactulose therapy. 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 He will require repeat EGD for variceal surveillance and colonoscopy for age appropriate cancer screening.
[2017-12-12 08:27] VITALS: O2SAT 98
[2017-12-12] MEDS: Potassium & Sodium Phosphate PO SCH ×2 (09:06→17:09)
[2017-12-12] MEDS: Cholecalciferol 1,000 INTLU TAB PO SCH (09:09)
--- NOTE | 2017-12-12 11:02 | CP.PCM.PN ---
<Obie Velazquez - Last Filed: 12/12/17 17:51> Subjective - Date & Time of Evaluation Date of Evaluation: 12/12/17 Time of Evaluation: 06:00 - Subjective Subjective: Patient seen and examined bedside. No acute issues overnight. Patient states he is feeling better, has been ambulating with out issues and eating a little bit. Objective - Vital Signs/Intake and Output Vital Signs (last 24 hours): Temp Pulse Resp BP Pulse Ox 98.8 F 53 L 18 104/58 L 98 12/12/17 08:26 12/12/17 08:26 12/12/17 08:26 12/12/17 08:26 12/12/17 08:26 Intake and Output: 12/12/17 12/12/17 06:59 18:59 Intake Total 360 Balance 360 - Medications Medications: Current Medications Albumin Human (Albumin Human 25% (12.5 Gm/50 Ml)) 12.5 gm IV Q1 [facility] Stop: 12/17/17 10:31 Alprazolam (Xanax) 0.5 mg PO HS PRN; Protocol PRN Reason: Anxiety Last Admin: 12/11/17 21:04 Dose: 0.5 mg Ascorbic Acid (Vitamin C 500 Mg Tab) 1,000 mg PO BID [facility] Last Admin: 12/12/17 09:10 Dose: 1,000 mg Camphor/Menthol (Bengay) 0 gm TOP DAILY PRN PRN Reason: Pain, moderate (4-7) Last Admin: 12/09/17 05:39 Dose: 1 applic Cholecalciferol (Vitamin D) 2,000 intlu PO DAILY [facility] Last Admin: 12/12/17 09:09 Dose: 2,000 intlu Cyanocobalamin (Vitamin B12 1000 Mcg Tab) 1,000 mcg PO DAILY [facility] Last Admin: 12/12/17 09:09 Dose: 1,000 mcg Famotidine (Pepcid) 20 mg PO BID [facility] Last Admin: 12/12/17 09:06 Dose: 20 mg Lactulose (Enulose) 20 gm PO BID [facility] Last Admin: 12/12/17 09:05 Dose: 20 gm Midodrine (Proamatine) 10 mg PO TID [facility] Last Admin: 12/12/17 09:06 Dose: 10 mg Nadolol (Corgard) 10 mg PO DAILY [facility] Last Admin: 12/12/17 09:05 Dose: 10 mg Octreotide Acetate (Sandostatin) 200 mcg SC TID [facility] Last Admin: 12/12/17 09:07 Dose: 200 mcg Ondansetron HCl (Zofran Inj) 4 mg IVP Q6H PRN PRN Reason: Nausea/Vomiting Last Admin: 12/12/17 03:39 Dose: 4 mg Potassium Phos/Sodium Phos (Neutra-Phos) 2 pkt PO BID [facility] Last Admin: 12/12/17 09:06 Dose: 2 pkt Rifaximin (Xifaxan) 550 mg PO BID [facility] PRN Reason: Protocol Last Admin: 12/12/17 09:10 Dose: 550 mg Tramadol HCl (Ultram) 25 mg PO Q6 PRN PRN Reason: Pain, moderate (4-7) Last Admin: 12/11/17 21:05 Dose: 25 mg - Labs Labs: 12/12/17 05:45 12/12/17 05:45 PT 17.7 SECONDS (9.4-12.5) H 12/12/17 05:45 INR 1.53 (0.93-1.08) H 12/12/17 05:45 APTT 36.2 Seconds (25.1-36.5) 12/06/17 13:55 - Constitutional Appears: Non-toxic, No Acute Distress, Chronically Ill - Head Exam Head Exam: ATRAUMATIC - Eye Exam Eye Exam: Normal appearance - Respiratory Exam Respiratory Exam: Clear to Ausculation Bilateral, NORMAL BREATHING PATTERN - Cardiovascular Exam Cardiovascular Exam: REGULAR RHYTHM, +S1, +S2 - GI/Abdominal Exam GI & Abdominal Exam: Soft. absent: Distended - Extremities Exam Extremities Exam: absent: Pedal Edema - Neurological Exam Neurological Exam: Alert, Awake, Oriented x3 Assessment and Plan - Assessment and Plan (Free Text) Assessment: 62 year old male with pat medical history non Non-Alcoholic Liver Cirrhosis, afib s/p cardioversion, HTN, GERD, CHF, and esophageal varices presents with right lower quadrant abdominal pain and back pain.Patient underwent US guided parcentesis, about 4L removed. Patient creatinine is not at baseline, possible HRS. Creatinine is improving. Plan: History Non-Alcoholic Liver Cirrhosis with associated Esophageal Varices - Abdominal US: moderate free fluid with abdomen, likely ascites from cirrhosis - abd duplex showed patent portal vein, large ascites - s/p paracentesis 4.3 L removed - Continue home Nadolol 10mg PO QD, Neutra-Phos supplementation - Zofran PRN - continue midodrine -continue day 4 HRS protocol to ensure return of renal function prior to discharge -continue Rifaximin and Lactulose, titrate to 2-3 BMs/day -outpatient follow up for EGD for variceal surveillance and colonoscopy for CRC screening Acute Kidney Injury - Creatinine 1.5, improved , baseline 1.3 - Nephro consulted - urine electrolytes reviewed, Fractional excretion urea was 57.8%, indicating intrinsic renal disease - renal function improved, almost to baseline - continue day 4 HRS protocol to ensure return of renal function prior to discharge - hold diuretics and avoid nephrotoxic medications - will continue to monitor creatinine Abdominal Pain- improved - most likely due to ascite - Abdominal US: moderate free fluid with abdomen, likely ascites from cirrhosis , 0.7cm renal calculi - abd duplex showed patent portal vein, large ascites - Chest xray showing persistent right pleural effusion - zofran prn - monitor for pain level - GI follow, Dr. Paige - continue Albumin - status post paracentesis removed 4.3 L last week - No evidence of SBP back pain - abd US moderate free fluid with abdomen, likely ascites from cirrhosis, 0.7cm renal calculi - tramadol prn Atrial Fibrillation s/p Cardioversion - heart rate stable - continue to monitor CAD s/p stent placement 09/06 - Continue home Aspirin 81mg - continue home med Midodrine 10mg PO TID CHF - hold diuretic due to KEYUR Diarrhea - most likely from lactulose - C diff toxin negative - improved with decreased lactulose Hypotension - 104/58 - continue to monitor, if low will give IVF GI Prophylaxis: pepcid DVT Prophylaxis: SCD's <Richa Dailey - Last Filed: 12/14/17 12:27> Objective - Vital Signs/Intake and Output Vital Signs (last 24 hours): Temp Pulse Resp BP Pulse Ox 98.8 F 54 L 18 99/48 L 98 12/13/17 08:33 12/13/17 11:28 12/13/17 08:33 12/13/17 11:28 12/13/17 08:33 - Labs Labs: 12/13/17 06:20 12/13/17 06:20 PT 17.7 SECONDS (9.4-12.5) H 12/12/17 05:45 INR 1.53 (0.93-1.08) H 12/12/17 05:45 APTT 36.2 Seconds (25.1-36.5) 12/06/17 13:55 Attending/Attestation - Attestation I have personally seen and examined this patient.: Yes I have fully participated in the care of the patient.: Yes I have reviewed all pertinent clinical information, including history, physical exam and plan: Yes Notes (Text): 12/14/17 12:17 Patient was seen and examined with medical illustrator.Agreed with assessment and plan. 62 year old male with PMH of chronic liver disease, afib s/p cardioversion, hypertension and esophageal varices who presented with abdominal pain. US abdomen showed moderate Ascites. He is s/p paracentesis with 4.3 liters removed.Patient creatinin increased to 2.1 but is coming down. His creatinin is 1.5 today.He is ambulatory.He can be discharged home and will follow up with PCP Management plan was discussed in detail with patient .Education was provided.
[2017-12-12] MEDS: Albumin Human 25% (12.5 gm/50 ml) IV SCH ×6 (12:01→16:30)
--- NOTE | 2017-12-12 17:45 | CP.PCM.PN ---
Subjective - Date & Time of Evaluation Date of Evaluation: 12/12/17 Time of Evaluation: 11:00 - Subjective Subjective: Follow up Nephrology Consultation: Assessment: Stable Acute Kidney Injury (N17.9) possibly due to acute tubular necrosis, hemodynamic (due to low BP, meds as aldactone/lasix), can't rule out superimposed hepato- renal syndrome but less likely: IMPROVING Chronic Kidney Disease (N18.3) Stage 3 likely due to AKIs Anemia (D64.9), Non-Alcoholic Liver Cirrhosis, afib s/p cardioversion, HTN, GERD , and esophageal varices Plan No acute need for renal replacement therapy at this time. No ACEI/ARB due to KEYUR. maintain hemodynamics stable. continue with midodrine to maintain BP stable Monitor Input/Output, daily weights and renal function with basic metabolic panel pt on octreotide and midodrine. consider to d/c octreotide if okay from GI as well. Dose meds/antibiotics for reduced GFR. Avoid fleets enema/magnesium based laxatives. Avoid nephrotoxins/NSAIDs/ iodinated contrast (unless needed emergently) Glycemic control Further work up/management as per primary team pt stable for d/c from renal perspective when planned Thanks for allowing me to participate in care of your patient. Will follow patient with you. Please call if any Qs. d/w team Dr Mario Costello Office: [phone] Chief Complaint; none now reason for consult: KEYUR HPI: Pt is a 62 M with hx of Non-Alcoholic Liver Cirrhosis, afib s/p cardioversion, HTN, GERD, and esophageal varices, CKD 3 (baseline cr 1.1-1.3) with intermittent episode of AKIs presented with complaints of upper abdomen pain and being managed for ascites, KEYUR. renal consult for KEYUR. he reports gradual wt loss. makes same amount of urine Denies OTC/herbal meds or NSAIDs No recent iodinated contrast exposure. had episodes of low BP intermittently. had paracentesis this hospitalization. he was recently admitted and d/c home on lasix and aldactone ROS: Cardiovascular: No chest pain. Pulmonary: No shortness of breath Gastrointestinal: improved abdominal pain No nausea. no vomiting. Genitourinary: No pain while urinating. Denies blood in urine. All other negative Physical Examination: General Appearance: Comfortable, in no acute respiratory distress, co-operative . facial muscle wasting noted Vitals reviewed and noted as below Head; Atraumatic, normocephalic ENT: no ulcers no thrush. Tongue is midline. Oropharynx: no rash or ulcers. EYES: Pupils are equal, round and reactive to light accommodation. Eye muscles and extraocular movement intact. Sclera is anicteric. Neck; supple no lymphadenopathy, no thyromegaly or bruit Lungs: Normal respiratory rate/effort. Breath sounds bilateral equal and clear Heart: Normal rate. s1s2 normal. No rub or gallop. Extremities: no edema. No varicose veins Neurological: Patient is alert, awake and oriented to person, place and time. No focal deficit. Strength bilateral appropriate and equal Skin: Warm and dry. Normal turgor. No rash. Palpitation: Normal elasticity for age Abdomen: Abdomen is soft. Bowel sounds +. There is no abdominal tenderness, no guarding/rigidity no organomegaly Psych: normal insight and normal affect/mood MSK: no joint tenderness or swelling. Digits and nails normal, no deformity : kidney or bladder not palpable Labs/imaging reviewed. Past medical history, past surgical history, family history, social history, allergy reviewed and noted as below Family hx: no hx of CKD. Rest non-contributory work up: TSAT 30% ferritin 50 Vit D 60 sono; unremarkable renals urine Na 60 Objective - Vital Signs/Intake and Output Vital Signs (last 24 hours): Temp Pulse Resp BP Pulse Ox 98.8 F 53 L 18 104/58 L 98 12/12/17 08:26 12/12/17 08:26 12/12/17 08:26 12/12/17 08:26 12/12/17 08:26 Intake and Output: 12/12/17 12/12/17 06:59 18:59 Intake Total 360 Balance 360 - Medications Medications: Current Medications Alprazolam (Xanax) 0.5 mg PO HS PRN; Protocol PRN Reason: Anxiety Last Admin: 12/11/17 21:04 Dose: 0.5 mg Ascorbic Acid (Vitamin C 500 Mg Tab) 1,000 mg PO BID [facility] Last Admin: 12/12/17 17:11 Dose: 1,000 mg Camphor/Menthol (Bengay) 0 gm TOP DAILY PRN PRN Reason: Pain, moderate (4-7) Last Admin: 12/09/17 05:39 Dose: 1 applic Cholecalciferol (Vitamin D) 2,000 intlu PO DAILY [facility] Last Admin: 12/12/17 09:09 Dose: 2,000 intlu Cyanocobalamin (Vitamin B12 1000 Mcg Tab) 1,000 mcg PO DAILY [facility] Last Admin: 12/12/17 09:09 Dose: 1,000 mcg Famotidine (Pepcid) 20 mg PO BID [facility] Last Admin: 12/12/17 17:09 Dose: 20 mg Lactulose (Enulose) 20 gm PO BID [facility] Last Admin: 12/12/17 17:08 Dose: 20 gm Midodrine (Proamatine) 10 mg PO TID [facility] Last Admin: 12/12/17 17:09 Dose: 10 mg Nadolol (Corgard) 10 mg PO DAILY [facility] Last Admin: 12/12/17 09:05 Dose: 10 mg Octreotide Acetate (Sandostatin) 200 mcg SC TID [facility] Last Admin: 12/12/17 17:10 Dose: 200 mcg Ondansetron HCl (Zofran Inj) 4 mg IVP Q6H PRN PRN Reason: Nausea/Vomiting Last Admin: 12/12/17 03:39 Dose: 4 mg Potassium Phos/Sodium Phos (Neutra-Phos) 2 pkt PO BID [facility] Last Admin: 12/12/17 17:09 Dose: 2 pkt Rifaximin (Xifaxan) 550 mg PO BID [facility] PRN Reason: Protocol Last Admin: 12/12/17 17:11 Dose: 550 mg Tramadol HCl (Ultram) 25 mg PO Q6 PRN PRN Reason: Pain, moderate (4-7) Last Admin: 12/11/17 21:05 Dose: 25 mg - Labs Labs: 12/12/17 05:45 12/12/17 05:45 PT 17.7 SECONDS (9.4-12.5) H 12/12/17 05:45 INR 1.53 (0.93-1.08) H 12/12/17 05:45 APTT 36.2 Seconds (25.1-36.5) 12/06/17 13:55
[2017-12-13 07:30] LABS: BASO # 0.04 K/mm3 (0.0-2.0); BASO % 0.7 % (0.0-3.0); EOS # 0.3 (0.0-0.7); EOS % 4.1 % (1.5-5.0); GRAN # 3.41 (1.4-6.5); GRAN % 55.7 % (50.0-68.0); HEMOGLOBIN 8.3 g/dL (14.0-18.0); LYMPH # 1.2 (1.2-3.4); LYMPH % 20.1 % (22.0-35.0); MEAN CELL VOLUME 94.8 fl (80.0-105.0); MEAN CORPUSCULAR HEMOGLOBIN 30.9 pg (25.0-35.0); MEAN CORPUSCULAR HGB CONC 32.5 g/dl (31.0-37.0); MEAN PLATELET VOLUME 10.4 fl (7.0-11.0); MONO # 1.2 (0.1-0.6); MONO % 19.4 % (1.0-6.0); RBC 2.69 10^6/uL (3.5-6.1); RED CELL DISTRIBUTION WIDTH 18.3 % (11.5-14.5); WHITE BLOOD COUNT 6.1 10^3/ul (4.5-11.0)
[2017-12-13 07:31] LABS: ALB/GLOB RATIO 1.2 (1.1-1.8); ALBUMIN 4.3 g/dL (3.0-4.8); ALT/SGPT 27 U/L (7-56); AST/SGOT 33 U/L (17-59); BLOOD UREA NITROGEN 28 mg/dL (7-21); CALCIUM 9.6 mg/dL (8.4-10.5); GFR AFRICAN-AMERICAN > 60; GFR NON-AFRICAN AMERICAN 51
[2017-12-13 08:34] VITALS: BP 99/48; PULSE 54; RESP 18; TEMP 98.8
[2017-12-13] MEDS: Cholecalciferol 1,000 INTLU TAB PO SCH (09:50)
[2017-12-13] MEDS: Potassium & Sodium Phosphate PO SCH (09:52)
--- NOTE | 2017-12-13 12:09 | CP.PCM.PN ---
Subjective - Date & Time of Evaluation Date of Evaluation: 12/13/17 Time of Evaluation: 12:08 - Subjective Subjective: Follow up Nephrology Consultation: Assessment: Stable Acute Kidney Injury (N17.9) possibly due to acute tubular necrosis, hemodynamic (due to low BP, meds as aldactone/lasix), can't rule out superimposed hepato- renal syndrome but less likely: IMPROVING Chronic Kidney Disease (N18.3) Stage 3 likely due to AKIs Anemia (D64.9), Non-Alcoholic Liver Cirrhosis, afib s/p cardioversion, HTN, GERD , and esophageal varices Plan No acute need for renal replacement therapy at this time. No ACEI/ARB due to KEYUR. maintain hemodynamics stable. continue with midodrine to maintain BP stable Monitor Input/Output, daily weights and renal function with basic metabolic panel pt on octreotide and midodrine. consider to d/c octreotide if okay from GI as well. Dose meds/antibiotics for reduced GFR. Avoid fleets enema/magnesium based laxatives. Avoid nephrotoxins/NSAIDs/ iodinated contrast (unless needed emergently) Glycemic control Further work up/management as per primary team pt stable for d/c from renal perspective when planned Thanks for allowing me to participate in care of your patient. Will follow patient with you. Please call if any Qs. d/w team Dr Mario Costello Office: [phone] Chief Complaint; none now reason for consult: KEYUR HPI: Pt is a 62 M with hx of Non-Alcoholic Liver Cirrhosis, afib s/p cardioversion, HTN, GERD, and esophageal varices, CKD 3 (baseline cr 1.1-1.3) with intermittent episode of AKIs presented with complaints of upper abdomen pain and being managed for ascites, KEYUR. renal consult for KEYUR. he reports gradual wt loss. makes same amount of urine Denies OTC/herbal meds or NSAIDs No recent iodinated contrast exposure. had episodes of low BP intermittently. had paracentesis this hospitalization. he was recently admitted and d/c home on lasix and aldactone ROS: Cardiovascular: No chest pain. Pulmonary: No shortness of breath Gastrointestinal: improved abdominal pain No nausea. no vomiting. Genitourinary: No pain while urinating. Denies blood in urine. All other negative Physical Examination: General Appearance: Comfortable, in no acute respiratory distress, co-operative . facial muscle wasting noted Vitals reviewed and noted as below Head; Atraumatic, normocephalic ENT: no ulcers no thrush. Tongue is midline. Oropharynx: no rash or ulcers. EYES: Pupils are equal, round and reactive to light accommodation. Eye muscles and extraocular movement intact. Sclera is anicteric. Neck; supple no lymphadenopathy, no thyromegaly or bruit Lungs: Normal respiratory rate/effort. Breath sounds bilateral equal and clear Heart: Normal rate. s1s2 normal. No rub or gallop. Extremities: no edema. No varicose veins Neurological: Patient is alert, awake and oriented to person, place and time. No focal deficit. Strength bilateral appropriate and equal Skin: Warm and dry. Normal turgor. No rash. Palpitation: Normal elasticity for age Abdomen: Abdomen is soft. Bowel sounds +. There is no abdominal tenderness, no guarding/rigidity no organomegaly Psych: normal insight and normal affect/mood MSK: no joint tenderness or swelling. Digits and nails normal, no deformity : kidney or bladder not palpable Labs/imaging reviewed. Past medical history, past surgical history, family history, social history, allergy reviewed and noted as below Family hx: no hx of CKD. Rest non-contributory work up: TSAT 30% ferritin 50 Vit D 60 sono; unremarkable renals urine Na 60 Objective - Vital Signs/Intake and Output Vital Signs (last 24 hours): Temp Pulse Resp BP Pulse Ox 98.8 F 54 L 18 99/48 L 98 12/13/17 08:33 12/13/17 11:28 12/13/17 08:33 12/13/17 11:28 12/13/17 08:33 Intake and Output: 12/13/17 12/13/17 06:59 18:59 Intake Total 300 Balance 300 - Medications Medications: Current Medications Albumin Human (Albumin Human 25% (12.5 Gm/50 Ml)) 12.5 gm IV Q1H [facility] Stop: 12/13/17 13:16 Alprazolam (Xanax) 0.5 mg PO HS PRN; Protocol PRN Reason: Anxiety Last Admin: 12/12/17 22:03 Dose: 0.5 mg Ascorbic Acid (Vitamin C 500 Mg Tab) 1,000 mg PO BID [facility] Last Admin: 12/13/17 09:51 Dose: 1,000 mg Camphor/Menthol (Bengay) 0 gm TOP DAILY PRN PRN Reason: Pain, moderate (4-7) Last Admin: 12/09/17 05:39 Dose: 1 applic Cholecalciferol (Vitamin D) 2,000 intlu PO DAILY [facility] Last Admin: 12/13/17 09:50 Dose: 2,000 intlu Cyanocobalamin (Vitamin B12 1000 Mcg Tab) 1,000 mcg PO DAILY [facility] Last Admin: 12/13/17 09:53 Dose: 1,000 mcg Famotidine (Pepcid) 20 mg PO BID [facility] Last Admin: 12/13/17 09:52 Dose: 20 mg Lactulose (Enulose) 20 gm PO BID [facility] Last Admin: 12/13/17 09:56 Dose: 20 gm Midodrine (Proamatine) 10 mg PO TID [facility] Last Admin: 12/13/17 09:51 Dose: 10 mg Nadolol (Corgard) 10 mg PO DAILY [facility] Last Admin: 12/13/17 11:28 Dose: Not Given Octreotide Acetate (Sandostatin) 200 mcg SC TID [facility] Last Admin: 12/13/17 11:29 Dose: 200 mcg Ondansetron HCl (Zofran Inj) 4 mg IVP Q6H PRN PRN Reason: Nausea/Vomiting Last Admin: 12/13/17 02:40 Dose: 4 mg Potassium Phos/Sodium Phos (Neutra-Phos) 2 pkt PO BID [facility] Last Admin: 12/13/17 09:52 Dose: 2 pkt Tramadol HCl (Ultram) 25 mg PO Q6 PRN PRN Reason: Pain, moderate (4-7) Last Admin: 12/12/17 21:57 Dose: 25 mg - Labs Labs: 12/13/17 06:20 12/13/17 06:20 PT 17.7 SECONDS (9.4-12.5) H 12/12/17 05:45 INR 1.53 (0.93-1.08) H 12/12/17 05:45 APTT 36.2 Seconds (25.1-36.5) 12/06/17 13:55
[2017-12-13] MEDS: Albumin Human 25% (12.5 gm/50 ml) IV SCH ×2 (12:57→13:56)
--- NOTE | 2017-12-13 13:06 | CP.PCM.DIS ---
Provider - Provider Date of Admission: 12/06/17 14:55 Attending physician: Richa Dailey MD Primary care physician: Surinder Bishop MD [facility] Course - Lab Results Lab Results: Micro Results 12/08/17 11:21 Other: Please Indicate Anaerobic Culture - Final NO ANAEROBES ISOLATED. 12/08/17 11:21 Other: Please Indicate Body Fluid Culture - Final No growth. 12/08/17 11:21 Other: Please Indicate Fungal Culture - Preliminary 12/08/17 11:21 Other: Please Indicate Mycobacterial Culture - Preliminary 12/07/17 18:45 Stool C. difficile Antigen & Toxin A,B (M - Final Most Recent Lab Values WBC 6.1 10^3/ul (4.5-11.0) 12/13/17 06:20 RBC 2.69 10^6/uL (3.5-6.1) L 12/13/17 06:20 Hgb 8.3 g/dL (14.0-18.0) L 12/13/17 06:20 Hct 25.5 % (42.0-52.0) L 12/13/17 06:20 MCV 94.8 fl (80.0-105.0) 12/13/17 06:20 MCH 30.9 pg (25.0-35.0) 12/13/17 06:20 MCHC 32.5 g/dl (31.0-37.0) 12/13/17 06:20 RDW 18.3 % (11.5-14.5) H 12/13/17 06:20 Plt Count 83 10^3/uL (120.0-450.0) L 12/13/17 06:20 MPV 10.4 fl (7.0-11.0) 12/13/17 06:20 Gran % 55.7 % (50.0-68.0) 12/13/17 06:20 Lymph % (Auto) 20.1 % (22.0-35.0) L 12/13/17 06:20 Becker % (Auto) 19.4 % (1.0-6.0) H 12/13/17 06:20 Eos % (Auto) 4.1 % (1.5-5.0) 12/13/17 06:20 Baso % (Auto) 0.7 % (0.0-3.0) 12/13/17 06:20 Gran # 3.41 (1.4-6.5) 12/13/17 06:20 Lymph # 1.2 (1.2-3.4) 12/13/17 06:20 Becker # 1.2 (0.1-0.6) H 12/13/17 06:20 Eos # 0.3 (0.0-0.7) 12/13/17 06:20 Baso # 0.04 K/mm3 (0.0-2.0) 12/13/17 06:20 PT 17.7 SECONDS (9.4-12.5) H 12/12/17 05:45 INR 1.53 (0.93-1.08) H 12/12/17 05:45 APTT 36.2 Seconds (25.1-36.5) 12/06/17 13:55 Sodium 136 mmol/L (132-148) 12/13/17 06:20 Potassium 4.5 mmol/L (3.6-5.0) 12/13/17 06:20 Chloride 102 mmol/L (98-107) 12/13/17 06:20 Carbon Dioxide 22 mmol/L (21-33) 12/13/17 06:20 Anion Gap 16 (10-20) 12/13/17 06:20 BUN 28 mg/dL (7-21) H 12/13/17 06:20 Creatinine 1.4 mg/dl (0.8-1.5) 12/13/17 06:20 Est GFR ( Amer) > 60 12/13/17 06:20 Est GFR (Non-Af Amer) 51 12/13/17 06:20 POC Glucose (mg/dL) 160 mg/dL (65-110) H 12/07/17 11:23 Random Glucose 100 mg/dL (70-110) 12/13/17 06:20 Calcium 9.6 mg/dL (8.4-10.5) 12/13/17 06:20 Phosphorus 3.6 mg/dL (2.5-4.5) 12/11/17 07:00 Magnesium 2.0 mg/dL (1.7-2.2) 12/11/17 07:00 Total Bilirubin 2.3 mg/dL (0.2-1.3) H 12/13/17 06:20 AST 33 U/L (17-59) 12/13/17 06:20 ALT 27 U/L (7-56) 12/13/17 06:20 Alkaline Phosphatase 123 U/L (38-126) 12/13/17 06:20 Ammonia 27 umol/L (9-33) 12/06/17 13:55 Lactate Dehydrogenase 344 U/L (333-699) 12/07/17 03:30 Total Creatine Kinase 37 U/L (35-230) 12/07/17 03:30 Troponin I 0.03 ng/mL D 12/07/17 03:30 Total Protein 7.7 g/dL (5.8-8.3) 12/13/17 06:20 Albumin 4.3 g/dL (3.0-4.8) 12/13/17 06:20 Globulin 3.4 gm/dL 12/13/17 06:20 Albumin/Globulin Ratio 1.2 (1.1-1.8) 12/13/17 06:20 Amylase 32 U/L (35-125) L 12/06/17 13:55 Lipase 113 U/L (23-300) 12/06/17 13:55 Urine Color Yellow (YELLOW) 12/06/17 14:46 Urine Appearance Clear (CLEAR) 12/06/17 14:46 Urine pH 6.0 (4.7-8.0) 12/06/17 14:46 Ur Specific [place] 1.010 (1.005-1.035) 12/06/17 14:46 Urine Protein Negative mg/dL (<30 mg/dL) 12/06/17 14:46 Urine Glucose (UA) Negative mg/dL (NEGATIVE) 12/06/17 14:46 Urine Ketones Negative mg/dL (NEGATIVE) 12/06/17 14:46 Urine Blood Negative (NEGATIVE) 12/06/17 14:46 Urine Nitrate Negative (NEGATIVE) 12/06/17 14:46 Urine Bilirubin Negative (NEGATIVE) 12/06/17 14:46 Urine Urobilinogen 0.2 E.U./dL (<1 E.U./dL) 12/06/17 14:46 Ur Leukocyte Esterase Negative Tomy/uL (NEGATIVE) 12/06/17 14:46 Ur Random Creatinine 44 mg/dL 12/07/17 15:30 Ur Random Sodium 63 meq/L 12/07/17 15:30 Ur Random Urea Nitrogn 412 mg/dL 12/07/17 15:30 Fluid Source Peritoneal/ascites 12/08/17 11:21 Fluid Appearance Clear (CLEAR) 12/08/17 11:21 Fluid pH 7 12/08/17 11:21 Fluid WBC 80.0 /uL (0.0-300.0) 12/08/17 11:21 Fluid RBC 85.0 /uL (0.0-0.0) H 12/08/17 11:21 Fluid Tot Cell Count 100 (0-0) H 12/08/17 11:21 Fluid Neutrophils 3.7 % (0-0) H 12/08/17 11:21 Fluid Lymphocytes 96.3 % (0-0) H 12/08/17 11:21 Fld Monocyte/Macrophag TEST NOT PERFORMED 12/08/17 11:21 Fluid Albumin 1.0 g/dL 12/08/17 16:42 Fluid Comment Yellow 12/08/17 11:21 Peritoneal Tot Protein <3.0 g/dL 12/08/17 16:42 Peritoneal Amylase 12 U/L 12/08/17 11:21 Peritoneal Lipase 16.0 U/L (<10) H 12/08/17 11:21 Discharge Exam - Head Exam Head Exam: ATRAUMATIC Discharge Plan - Discharge Medications Prescriptions: Furosemide [Lasix] 20 mg PO DAILY #30 tab Spironolactone [Aldactone] 50 mg PO DAILY 30 Days #60 tab - Follow Up Plan Condition: FAIR Disposition: HOME/ ROUTINE Additional Instructions: Please continue medications as stated. Follow up with Dr. Bishop in one week. Also next TuesdayDecember 21 pleae go for CBC, INR, and CMP. Please follow a low salt diet, daily weights, and restrict fluid intake to not more than 1500 ml a day. Referrals: Surinder Bishop MD [Primary Care Provider] -
--- NOTE | 2017-12-13 14:22 | CP.PCM.PN ---
<LandryLaney - Last Filed: 12/13/17 14:19> Subjective - Date & Time of Evaluation Date of Evaluation: 12/13/17 Time of Evaluation: 14:19 - Subjective Subjective: Gastroenterology Fellow/PGY5 Progress Note Patient denies abdominal pain. Tolerating diet. Two bowel movements yesterday. A 12-point review of systems negative except for as above. Objective - Vital Signs/Intake and Output Vital Signs (last 24 hours): Temp Pulse Resp BP Pulse Ox 98.8 F 54 L 18 99/48 L 98 12/13/17 08:33 12/13/17 11:28 12/13/17 08:33 12/13/17 11:28 12/13/17 08:33 Intake and Output: 12/13/17 12/13/17 06:59 18:59 Intake Total 300 Balance 300 - Medications Medications: Current Medications Alprazolam (Xanax) 0.5 mg PO HS PRN; Protocol PRN Reason: Anxiety Last Admin: 12/12/17 22:03 Dose: 0.5 mg Ascorbic Acid (Vitamin C 500 Mg Tab) 1,000 mg PO BID [facility] Last Admin: 12/13/17 09:51 Dose: 1,000 mg Camphor/Menthol (Bengay) 0 gm TOP DAILY PRN PRN Reason: Pain, moderate (4-7) Last Admin: 12/09/17 05:39 Dose: 1 applic Cholecalciferol (Vitamin D) 2,000 intlu PO DAILY [facility] Last Admin: 12/13/17 09:50 Dose: 2,000 intlu Cyanocobalamin (Vitamin B12 1000 Mcg Tab) 1,000 mcg PO DAILY [facility] Last Admin: 12/13/17 09:53 Dose: 1,000 mcg Famotidine (Pepcid) 20 mg PO BID [facility] Last Admin: 12/13/17 09:52 Dose: 20 mg Lactulose (Enulose) 20 gm PO BID [facility] Last Admin: 12/13/17 09:56 Dose: 20 gm Midodrine (Proamatine) 10 mg PO TID [facility] Last Admin: 12/13/17 13:55 Dose: 10 mg Nadolol (Corgard) 10 mg PO DAILY [facility] Last Admin: 12/13/17 11:28 Dose: Not Given Octreotide Acetate (Sandostatin) 200 mcg SC TID [facility] Last Admin: 12/13/17 11:29 Dose: 200 mcg Ondansetron HCl (Zofran Inj) 4 mg IVP Q6H PRN PRN Reason: Nausea/Vomiting Last Admin: 12/13/17 02:40 Dose: 4 mg Potassium Phos/Sodium Phos (Neutra-Phos) 2 pkt PO BID [facility] Last Admin: 12/13/17 09:52 Dose: 2 pkt Tramadol HCl (Ultram) 25 mg PO Q6 PRN PRN Reason: Pain, moderate (4-7) Last Admin: 12/12/17 21:57 Dose: 25 mg - Labs Labs: 12/13/17 06:20 12/13/17 06:20 PT 17.7 SECONDS (9.4-12.5) H 12/12/17 05:45 INR 1.53 (0.93-1.08) H 12/12/17 05:45 APTT 36.2 Seconds (25.1-36.5) 12/06/17 13:55 - Constitutional Appears: Non-toxic, No Acute Distress - Head Exam Head Exam: ATRAUMATIC, NORMOCEPHALIC - Eye Exam Eye Exam: EOMI, PERRL. absent: Scleral icterus Pupil Exam: PERRL. absent: Miosis, Mydriatic - ENT Exam ENT Exam: Mucous Membranes Moist, Normal Oropharynx - Neck Exam Neck Exam: Full ROM, Normal Inspection - Respiratory Exam Respiratory Exam: Clear to Ausculation Bilateral. absent: Rales, Rhonchi, Wheezes - Cardiovascular Exam Cardiovascular Exam: RRR, +S1, +S2. absent: Gallop, Rubs - GI/Abdominal Exam GI & Abdominal Exam: Soft, Normal Bowel Sounds. absent: Distended, Firm, Guarding, Rigid, Tenderness, Organomegaly, Rebound - Extremities Exam Extremities Exam: Full ROM, Normal Inspection. absent: Pedal Edema - Neurological Exam Neurological Exam: Alert, Awake - Psychiatric Exam Psychiatric exam: Normal Affect, Normal Mood - Skin Skin Exam: Dry, Intact, Normal Color, Warm Assessment and Plan - Assessment and Plan (Free Text) Assessment: 62 year male with history of CAD s/p stent, CHF, Atrial fibrillation s/p cardioversion, Hypertension, decompensated cryptogenic cirrhosis (variceal bleed -9 bands 09/2017, ascites, and hepatic encephalopathy presenting with abdominal pain and distension. Active treatment of hepatorenal syndrome and decompensated cirrhosis 2/2 ascites POD5 (12/08) 4.3L paracentesis (negative for SBP). Plan: >MELD 18 >received four days of HRS protocol >renal function improved >hold diuretics and avoid nephrotoxic medications on discharge >continue Rifaximin and Lactulose, titrate to 2-3 BMs/day >continue Nadolol at previous home dose >conitune midodrine at previous home dose >repeat CBC, CMP, INR in one week >outpatient follow up for EGD for variceal surveillance and colonoscopy for CRC screening >appointment made to follow up with Dr. Hodgson on 12/28/17 at 1130AM <Pedro Paige - Last Filed: 12/14/17 11:45> Objective - Vital Signs/Intake and Output Vital Signs (last 24 hours): Temp Pulse Resp BP Pulse Ox 98.8 F 54 L 18 99/48 L 98 12/13/17 08:33 12/13/17 11:28 12/13/17 08:33 12/13/17 11:28 12/13/17 08:33 - Labs Labs: 12/13/17 06:20 12/13/17 06:20 PT 17.7 SECONDS (9.4-12.5) H 12/12/17 05:45 INR 1.53 (0.93-1.08) H 12/12/17 05:45 APTT 36.2 Seconds (25.1-36.5) 12/06/17 13:55 Attending/Attestation - Attestation I have personally seen and examined this patient.: Yes I have fully participated in the care of the patient.: Yes I have reviewed all pertinent clinical information, including history, physical exam and plan: Yes Notes (Text): 12/13/17 18:44 62 year male with h/o CAD s/p stent, CHF, Afib, HTN, Cirrhosis c/b esophageal varices s/p banding, HE, and ascites, now with renal failure. 1. Cirrhosis 2. Ascites 3. Acute renal insufficiency 4. Hepatic encephalopathy Plan: -kidney function improved -stable, ok for discharge -diet as tolerated, low sodium -continue midodrine on discharge -repeat CMP in 1-2 weeks and f/u Gokul -hold diuretics for now -continue lactulose/rifaxamin
== END 2017-12-13 17:15 | disposition home or self-care (01) | DRG 557 ==
LOC: ED 11:57 → ERH 14:55 → 3RNO 17:17
PROVIDERS: ADMIT Internal Medicine; ATTEND Internal Medicine
PROC: 0W9G3ZZ Drainage of Peritoneal Cavity, Percutaneous Approach (ICD-10-PCS; principal; 2017-12-08 15:00)
DX: K74.69 Other cirrhosis of liver (principal); N17.9 Acute kidney failure, unspecified; K76.7 Hepatorenal syndrome; R18.8 Other ascites; I85.10 Secondary esophageal varices without bleeding; I13.0 Hypertensive heart and chronic kidney disease with heart failure and stage 1 through stage 4 chronic kidney disease, or unspecified chronic kidney disease; I50.9 Heart failure, unspecified; I48.91 Unspecified atrial fibrillation; N18.3 Chronic kidney disease, stage 3 (moderate); E87.5 Hyperkalemia; K72.90 Hepatic failure, unspecified without coma; E86.0 Dehydration; K21.9 Gastro-esophageal reflux disease without esophagitis; I25.10 Atherosclerotic heart disease of native coronary artery without angina pectoris; N20.0 Calculus of kidney; D64.9 Anemia, unspecified; R19.7 Diarrhea, unspecified; Z87.891 Personal history of nicotine dependence; Z95.5 Presence of coronary angioplasty implant and graft; Z87.01 Personal history of pneumonia (recurrent)

== ENCOUNTER 2018-01-12 07:50 | Inpatient (IN) | payer BC ==
[2018-01-12 08:05] VITALS: BMI 19.0
--- NOTE | 2018-01-12 08:31 | ED PDOC ---
Arrival/HPI - General Time Seen by Provider: 01/12/18 08:27 Historian: Patient - History of Present Illness Narrative History of Present Illness (Text): 01/12/18 08:[address] is a 62 year old male, whose past medical history includes hypertension, CHF, cirrhosis, and pneumonia, who presents to the emergency department via EMS for feeling confused since prior to arrival. Patient reports he was about to cook breakfast when the symptoms began and he did not know where he was. Patient is also complaining of nausea. Patient denies recent trauma, chest pain, shortness of breath, abdominal pain, or other complaints. PMD: Dr. Saenz Time/Duration: Prior to Arrival Symptom Onset: Sudden Symptom Course: Unchanged Activities at Onset: Light Context: Home Past Medical History - Provider Review Nursing Documentation Reviewed: Yes - Infectious Disease Hx of Infectious Diseases: None - Tetanus Immunization Tetanus Immunization: Unknown - Cardiac Hx Cardiac Disorders: Yes Hx Congestive Heart Failure: Yes Hx Hypertension: Yes - Pulmonary Hx Pneumonia: Yes (09/06) - Neurological Hx Neurological Disorder: No - HEENT Hx HEENT Disorder: No - Renal Hx Renal Failure: Yes - Endocrine/Metabolic Hx Endocrine Disorders: No - Hematological/Oncological Hx Blood Disorders: Yes Hx Cirrhosis: Yes (PARACENTESIS) - Integumentary Hx Dermatological Disorder: No - Musculoskeletal/Rheumatological Hx Musculoskeletal Disorders: Yes Hx Falls: Yes Hx Unsteady Gait: Yes - Gastrointestinal Hx Gastroesophageal Reflux: Yes - Genitourinary/Gynecological Hx Genitourinary Disorders: No - Psychiatric Hx Psychophysiologic Disorder: No Hx Substance Use: No - Surgical History Hx Coronary Stent: Yes - Anesthesia Hx Anesthesia Reactions: No Hx Malignant Hyperthermia: No Family/Social History - Physician Review Nursing Documentation Reviewed: Yes Family/Social History: Unknown Family HX Smoking Status: Former Smoker Hx Alcohol Use: No Hx Substance Use: No Allergies/Home Meds Allergies/Adverse Reactions: Allergies Beef Containing Products Allergy (Severe, Verified 01/12/18 08:30) ANAPHYLAXIS tounge swelling, beef derived (bovine) Allergy (Severe, Verified 01/12/18 08:30) ANAPHYLAXIS tounge swelling banana Allergy (Intermediate, Verified 01/12/18 08:30) ITCHING velcro Allergy (Uncoded 01/12/18 08:30) ITCHING Home Medications: Home Meds Medication Instructions Recorded Confirmed Pantoprazole [Protonix EC Tab] 40 mg PO DAILY 07/21/17 01/12/18 Ascorbic Acid [Vitamin C 500 mg 1,000 mg PO BID 11/20/17 01/12/18 Tab] Cholecalciferol (Vitamin D3) 2,000 unit PO DAILY 11/20/17 01/12/18 [Vitamin D3] Cyanocobalamin [Vitamin B12 1000 1,000 mcg PO DAILY 11/20/17 01/12/18 mcg Tab] Nadolol [Corgard] 10 mg PO DAILY 11/20/17 01/12/18 Ondansetron [Zofran Tab] 4 mg PO Q8 PRN 11/20/17 01/12/18 Phosphorus/Potassium/Sodium 2 pkt PO BID 11/20/17 01/12/18 [Neutra-Phos] Review of Systems - Physician Review All systems were reviewed & negative as marked: Yes - Review of Systems Constitutional: absent: Fevers Respiratory: absent: SOB Cardiovascular: absent: Chest Pain Neurological: Other (confused) Physical Exam Vital Signs Reviewed: Yes Vital Signs Temp Pulse Resp BP Pulse Ox 01/12/18 13:46 78 16 137/80 98 01/12/18 11:45 72 16 124/69 99 01/12/18 10:10 67 18 134/64 100 01/12/18 08:04 97.6 F 63 18 148/78 100 Temperature: Afebrile Blood Pressure: Normal Pulse: Regular Respiratory Rate: Normal Appearance: Positive for: Well-Appearing, Non-Toxic, Comfortable Pain Distress: None Mental Status: Positive for: Alert and Oriented X 3 Finger Stick Blood Glucose: 120 - Systems Exam Head: Present: Atraumatic, Normocephalic Pupils: Present: PERRL Extroacular Muscles: Present: EOMI Conjunctiva: Present: Normal Respiratory/Chest: Present: Clear to Auscultation, Good Air Exchange. No: Respiratory Distress, Accessory Muscle Use, Wheezes, Rales, Retracting, Rhonchi Cardiovascular: Present: Regular Rate and Rhythm, Normal S1, S2. No: Murmurs Abdomen: Present: Normal Bowel Sounds. No: Tenderness, Distention, Peritoneal Signs, Rebound, Guarding Neurological: Present: GCS=15, CN II-XII Intact, Speech Normal Skin: Present: Warm, Dry, Normal Color. 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 Plan: -- EKG -- CT head -- Chest X-ray -- Labs -- Reassess and disposition Progress Notes: EKG: Ordered, reviewed, and independently interpreted the EKG. Rate : 65 BPM Rhythm : NSR Interpretation : No ST-segment elevations or depressions, no T-wave inversions, normal intervals. 01/12/18 10:10 CT Head: Creator : Mik Cook MD COMPARISON: 12/23/2017 FINDINGS: HEMORRHAGE: No intracranial hemorrhage. BRAIN: No mass effect or edema. No atrophy or chronic microvascular ischemic changes. VENTRICLES: Unremarkable. No hydrocephalus. CALVARIUM: Unremarkable. PARANASAL SINUSES: Unremarkable as visualized. No significant inflammatory changes. MASTOID AIR CELLS: Unremarkable as visualized. No inflammatory changes. OTHER FINDINGS: None. IMPRESSION: No acute intracranial finding - Lab Interpretations Lab Results: 01/12/18 08:30 01/12/18 08:30 Lab Results 01/12/18 11:20: Urine Color Yellow, Urine Appearance Clear, Urine pH 6.0, Ur Specific Superior 1.020, Urine Protein Trace H, Urine Glucose (UA) Negative, Urine Ketones Negative, Urine Blood Negative, Urine Nitrate Negative, Urine Bilirubin Negative, Urine Urobilinogen 1.0 H, Ur Leukocyte Esterase Trace H, Urine RBC Negative, Urine WBC 0 - 2, Ur Epithelial Cells None, Hyaline Casts 0 - 2 01/12/18 08:30: Ammonia 54 H 01/12/18 08:30: Sodium 134, Chloride 102, Potassium 5.1 H, Carbon Dioxide 21, Anion Gap 17, BUN 42 H, Creatinine 1.9 H, Est GFR ( Amer) 44, Est GFR ( Non-Af Amer) 36, Random Glucose 111 H, Calcium 10.2, Total Bilirubin 2.2 H, AST 89 H D, ALT 40, Alkaline Phosphatase 336 H, Lactate Dehydrogenase 497, Total Creatine Kinase 76, Troponin I 0.02 D, NT-Pro-B Natriuret Pep 894 H, Total Protein 9.1 H, Albumin 3.7, Globulin 5.5, Albumin/Globulin Ratio 0.7 L, Lipase 178 01/12/18 08:30: pO2 54, VBG pH 7.36, VBG pCO2 41.0, VBG HCO3 23.2, VBG Total CO2 24.5, VBG O2 Sat (Calc) 91.6 H, VBG Base Excess -2.2 L, VBG Potassium 5.2, Sodium 130.0 L, Chloride 103.0, Glucose 117 H, Lactate 1.4, FiO2 21.0, Venous Blood Potassium 5.2 01/12/18 08:30: PT 16.6 H, INR 1.43 H 01/12/18 08:30: WBC 6.0, RBC 2.79 L, Hgb 8.9 L, Hct 26.8 L, MCV 96.1, MCH 31.9, MCHC 33.2, RDW 19.5 H, Plt Count 121, MPV 10.0, Gran % 58.0, Lymph % (Auto) 23.2 , [place] % (Auto) 13.3 H, Eos % (Auto) 4.8, Baso % (Auto) 0.7, Gran # 3.50, Lymph # (Auto) 1.4, [place] # (Auto) 0.8 H, Eos # (Auto) 0.3, Baso # (Auto) 0.04 - RAD Interpretation Radiology Orders: 01/12/18 08:29 HEAD W/O CONTRAST [CT] Stat CHEST TWO VIEWS (PA/LAT) [RAD] Stat 01/12/18 13:33 CHEST W/O CONTRAST [CT] Stat 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 - EKG Interpretation Interpreted by ED Physician: Yes Type: 12 lead EKG - Medication Orders Current Medication Orders: Ascorbic Acid (Vitamin C 500 Mg Tab) 1,000 mg PO BID [facility] Cholecalciferol (Vitamin D) 2,000 intlu PO DAILY [facility] Cyanocobalamin (Vitamin B12 1000 Mcg Tab) 1,000 mcg PO DAILY [facility] Lactulose (Enulose) 20 gm PO BID [facility] Midodrine (Proamatine) 10 mg PO TID [facility] Nadolol (Corgard) 10 mg PO DAILY [facility] Pantoprazole Sodium (Protonix Ec Tab) 40 mg PO DAILY [facility] Potassium Phos/Sodium Phos (Neutra-Phos) 2 pkt PO BID [facility] Rifaximin (Xifaxan) 550 mg PO BID [facility] PRN Reason: Protocol Discontinued Medications Lactulose (Enulose) 30 gm PO ONCE STA Stop: 01/12/18 09:38 Last Admin: 01/12/18 10:48 Dose: Not Given Non-Admin Reason: Patient Refused Non-Formulary Medication (Cholecalciferol (Vitamin D3) [Vitamin D3]) 2,000 unit PO DAILY [facility] Ondansetron HCl (Zofran Inj) 4 mg IVP STAT STA Stop: 01/12/18 10:32 Last Admin: 01/12/18 10:34 Dose: 4 mg IVP Administration Document 01/12/18 10:34 MS (Rec: 01/12/18 10:35 [id number] Charges for Administration # of IVP Administrations 1 Ondansetron HCl (Zofran Inj) 4 mg IVP STAT STA Stop: 01/12/18 10:35 Last Admin: 01/12/18 10:36 Dose: IVP Administration Document 01/12/18 10:36 MS (Rec: 01/12/18 10:36 [facility] [id number] Charges for Administration # of IVP Administrations 1 - 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 Disposition/Present on Arrival - Present on Arrival Any Indicators Present on Arrival: No History of DVT/PE: No History of Uncontrolled Diabetes: No Urinary Catheter: No History of Decub. Ulcer: No History Surgical Site Infection Following: None - Disposition Have Diagnosis and Disposition been Completed?: Yes Diagnosis: Hepatic encephalopathy, Confusion Disposition: HOSPITALIZED Disposition Time: 10:35 Patient Plan: Admission Patient Problems: Current Active Problems Problem Status Onset Hepatic encephalopathy Acute Confusion Acute Condition: GOOD Referrals: Surinder Bishop MD [Primary Care Provider] - Follow up with primary
[2018-01-12 09:02] LABS: BASO # 0.04 K/mm3 (0.0-2.0); BASO % 0.7 % (0.0-3.0); EOS # 0.3 (0.0-0.7); EOS % 4.8 % (1.5-5.0); GRAN # 3.5 (1.4-6.5); HEMOGLOBIN 8.9 g/dL (14.0-18.0); LYMPH # 1.4 (1.2-3.4); LYMPH % 23.2 % (22.0-35.0); MEAN CELL VOLUME 96.1 fl (80.0-105.0); MEAN CORPUSCULAR HEMOGLOBIN 31.9 pg (25.0-35.0); MEAN CORPUSCULAR HGB CONC 33.2 g/dl (31.0-37.0); MONO # 0.8 (0.1-0.6); MONO % 13.3 % (1.0-6.0); RBC 2.79 10^6/uL (3.5-6.1); RED CELL DISTRIBUTION WIDTH 19.5 % (11.5-14.5); VENOUS BLOOD GAS BASE EXCESS -2.2 mmol/L (0.0-2.0); VENOUS BLOOD GAS PO2 54 mm/Hg (30-55); VENOUS BLOOD PH 7.36 (7.32-7.43)
[2018-01-12 09:11] LABS: INR 1.43 (0.93-1.08); PROTHROMBIN TIME 16.6 SECONDS (9.4-12.5)
[2018-01-12 09:18] LABS: ALB/GLOB RATIO 0.7 (1.1-1.8); ALBUMIN 3.7 g/dL (3.0-4.8); CALCIUM 10.2 mg/dL (8.4-10.5)
[2018-01-12 09:22] LABS: TROPONIN I 0.02 ng/mL
--- NOTE | 2018-01-12 10:08 | CT ---
PROCEDURE: CT HEAD WITHOUT CONTRAST. HISTORY: confusion COMPARISON: 12/23/2017 TECHNIQUE: Axial computed tomography images were obtained through the head/brain without intravenous contrast. Radiation dose: Total exam DLP = 846 mGy-cm. This CT exam was performed using one or more of the following dose reduction techniques: Automated exposure control, adjustment of the mA and/or kV according to patient size, and/or use of iterative reconstruction technique. FINDINGS: HEMORRHAGE: No intracranial hemorrhage. BRAIN: No mass effect or edema. No atrophy or chronic microvascular ischemic changes. VENTRICLES: Unremarkable. No hydrocephalus. CALVARIUM: Unremarkable. PARANASAL SINUSES: Unremarkable as visualized. No significant inflammatory changes. MASTOID AIR CELLS: Unremarkable as visualized. No inflammatory changes. OTHER FINDINGS: None. IMPRESSION: No acute intracranial finding
[2018-01-12] MEDS ORDERED: Piperacillin/Tazobact 3.375 gm 100 ML IVPB STA (10:57)
--- NOTE | 2018-01-12 11:28 | RAD ---
HISTORY: confused, generalized weakness, ascites COMPARISON: 12/25/2017 TECHNIQUE: Chest PA and lateral FINDINGS: LUNGS: No active pulmonary disease. PLEURA: There is a moderate size right pleural effusion. This is unchanged CARDIOVASCULAR: Normal. OSSEOUS STRUCTURES: No significant abnormalities. VISUALIZED UPPER ABDOMEN: Normal. OTHER FINDINGS: None. IMPRESSION: There is a moderate size right pleural effusion unchanged
[2018-01-12 11:34] LABS: URINE BILIRUBIN NEGATIVE (NEGATIVE); URINE BLOOD NEGATIVE (NEGATIVE); URINE GLUCOSE (UA) NEGATIVE (NEGATIVE); URINE LEUKOCYTE ESTERASE TRACE Leu/uL (NEGATIVE); URINE NITRATE NEGATIVE (NEGATIVE); URINE PROTEIN TRACE mg/dL (<30 mg/dL)
[2018-01-12 11:35] LABS: URINE APPEARANCE CLEAR (CLEAR); URINE COLOR YELLOW (YELLOW)
[2018-01-12 11:42] LABS: URINE RBC NEGATIVE /hpf (0-2)
[2018-01-12 11:43] LABS: URINE HYALINE CAST 0 - 2 /hpf; URINE WBC 0 - 2 /hpf (0-6)
--- NOTE | 2018-01-12 14:22 | CT ---
PROCEDURE: CT Chest without contrast HISTORY: assess for possible pleural effusion COMPARISON: None. TECHNIQUE: Contiguous axial images were obtained through the chest without intravenous contrast enhancement. Sagittal and coronal reconstructions were performed. Radiation dose (DLP): 530.94 mGy-cm. This CT exam was performed using one or more of the following dose reduction techniques: Automated exposure control, adjustment of the mA and/or kV according to patient size, and/or use of iterative reconstruction technique. FINDINGS: LUNGS: Restrained motion degrades the quality of this examination. Compression atelectasis is favored over limited infiltrate at the right lower lobe. Central airways appear clear. Trace emphysematous change are identified in the bilateral pulmonary apices in the periphery. MEDIASTINUM: The visualized thoracic inlet is remarkable for heterogeneous density at the left thyroid lobe probably representing a nodule, partially calcified posteriorly. The thoracic aorta is normal in caliber as well as the main pulmonary artery. No cardiomegaly. Extensive coronary artery calcifications are identified. Shotty mediastinal lymph nodes are identified without significant lymphadenopathy. PLEURA: There is a mild right pleural effusion. None is appreciated at the left. No pericardial effusion. No pneumothorax bilaterally. BONES: No fracture. No destructive lesion. UPPER ABDOMEN: Upper abdominal ascites appreciated with a knee nodular relatively small liver liver suggestive of cirrhosis. OTHER FINDINGS: None. IMPRESSION: 1. Mild right pleural effusion exerting limited compression atelectasis in the right lower lobe. Underlying infiltrate not favored but not completely excluded. 2. Trace biapical emphysematous changes. 3. Incidental partially calcified left lobe thyroid nodule. 4. Cirrhotic appearing liver with upper abdominal ascites appreciated.
--- NOTE | 2018-01-12 14:36 | CP.PCM.HP ---
<Bruce Waller - Last Filed: 01/12/18 13:58> History of Present Illness - History of Present Illness History of Present Illness: IM H&P for Hospitalist Service CC: Nausea, abrupt onset confusion HPI: This is a 62 yo M with PMH of HTN, GERD, Non-alcoholic liver cirrhosis, Ascites, diastolic CHF, afib s/p cardioversion, and esophageal varices who presents to [facility] with complaint of acute onset confusion that began this morning. Patient reports being in his kitchen at around 3am, looking for something to eat, when he suddenly became confused, and didn't know where he was. He also reports finding himself unable to open his refrigerator door ( couldn't figure how to open it), and unable to find a place to sit in his living room (friend at bedside reports 6-7 places to sit in his living room). At time of exam in the ED, he is awake and alert, oriented to self, location, and is able to recognize his friend at bedside, but is disoriented to year. Also complaints of "dry heaves" and nausea since yesterday, but seems to be confused on what is meant by dry heaves, as when he is asked if he has a cough/ productive cough, he states yes but then against says that it's "dry heaves." Reports 2-3 bowel movements each day, compliance with all medications. Denies chest pain, shortness of breath, emesis, diarrhea, constipation, dysuria, hematuria, inability to tolerate PO intake, focal weakness, tremors, or syncope/ near-syncope/falls/head trauma. All other ROS in 12-system review negative. PMH: as above Surgical History: Inguinal hernia repair Social History: Former smoker (1+ ppd for > 30 yrs, quit 1.5 years ago), denies EtOH/illicits/IVDA Family History: Mother - DM, heart disease; Father - [place] PMD: Dr Bishop Real Estate Lawyer: Dr Angeles Present on Admission - Present on Admission Any Indicators Present on Admission: No History of DVT/PE: No History of Uncontrolled Diabetes: No Urinary Catheter: No Review of Systems - Review of Systems All systems: reviewed and no additional remarkable complaints except (as per HPI ) Past Patient History - Infectious Disease Hx of Infectious Diseases: None - Tetanus Immunizations Tetanus Immunization: Unknown - Past Social History Smoking Status: Former Smoker - CARDIAC Hx Cardiac Disorders: Yes Hx Congestive Heart Failure: Yes Hx Hypertension: Yes - PULMONARY Hx Pneumonia: Yes (09/06) - NEUROLOGICAL Hx Neurological Disorder: No - HEENT Hx HEENT Problems: No - RENAL Hx Renal Failure: Yes - ENDOCRINE/METABOLIC Hx Endocrine Disorders: No - HEMATOLOGICAL/ONCOLOGICAL Hx Blood Disorders: Yes Hx Cirrhosis: Yes (PARACENTESIS) - INTEGUMENTARY Hx Dermatological Problems: No - MUSCULOSKELETAL/RHEUMATOLOGICAL Hx Musculoskeletal Disorders: Yes Hx Falls: Yes Hx Unsteady Gait: Yes - GASTROINTESTINAL Hx Gastroesophageal Reflux: Yes - GENITOURINARY/GYNECOLOGICAL Hx Genitourinary Disorders: No - PSYCHIATRIC Hx Psychophysiologic Disorder: No Hx Substance Use: No - SURGICAL HISTORY Hx Coronary Stent: Yes - ANESTHESIA Hx Anesthesia Reactions: No Hx Malignant Hyperthermia: No Meds Allergies/Adverse Reactions: Allergies Allergy/AdvReac Type Severity Reaction Status Date / Time Beef Containing Products Allergy Severe ANAPHYLAXIS Verified 01/12/18 14:55 beef derived (bovine) Allergy Severe ANAPHYLAXIS Verified 01/12/18 14:55 banana Allergy Intermediate ITCHING Verified 01/12/18 14:55 velcro Allergy ITCHING Uncoded 01/12/18 14:55 Physical Exam - Constitutional Appears: Non-toxic, No Acute Distress, Chronically Ill Additional comments: Lethargic, delay between asking question and receiving answer consistently ( never more than few seconds) - Head Exam Head Exam: ATRAUMATIC, NORMAL INSPECTION, NORMOCEPHALIC - Eye Exam Eye Exam: EOMI, Normal appearance. absent: Conjunctival injection, Scleral icterus Pupil Exam: absent: Irregular, Unequal - ENT Exam ENT Exam: Mucous Membranes Moist - Neck Exam Neck exam: Positive for: Full Rom, Normal Inspection. Negative for: Lymphadenopathy, Tenderness, Thyromegaly - Respiratory Exam Respiratory Exam: Clear to Auscultation Bilateral, NORMAL BREATHING PATTERN. absent: Accessory Muscle Use, Chest Wall Tenderness, Decreased Breath Sounds, Prolonged Expiratory Phase, Rales, Rhonchi, Wheezes, Respiratory Distress, Stridor - Cardiovascular Exam Cardiovascular Exam: REGULAR RHYTHM, RRR, +S1, +S2. absent: Bradycardia, Tachycardia, Irregular Rhythm, JVD, +S4 - GI/Abdominal Exam GI & Abdominal Exam: Normal Bowel Sounds, Soft. absent: Distended, Firm, Guarding, Rigid, Tenderness Additional comments: some positional ascites present, but abdomen remains soft/non-distended and still able to hear bowel sounds - Extremities Exam Extremities exam: Positive for: normal capillary refill, normal inspection, pedal pulses present (+1 dorsalis pedis and radial pulses bilaterally). Negative for: joint swelling, pedal edema - Neurological Exam Additional comments: Resting but easily arousable Awake and alert after arousal, following all commands appropriately Delay between questions asked and response frequently, never more than a few seconds motor grossly intact and equal in bilateral extremity pairs, no gross facial asymmetries No asterixis - Psychiatric Exam Psychiatric exam: Normal Affect, Normal Mood - Skin Skin Exam: Dry, Intact, Normal Color, Warm Results - Vital Signs Recent Vital Signs: Last Vital Signs Temp 97.6 F 01/12/18 08:04 Pulse 78 01/12/18 13:46 Resp 16 01/12/18 13:46 BP 137/80 01/12/18 13:46 Pulse Ox 98 01/12/18 13:46 - Labs Result Diagrams: 01/12/18 08:30 01/12/18 08:30 Labs: Laboratory Results - last 24 hr 01/12/18 01/12/18 01/12/18 08:30 08:30 08:30 WBC 6.0 RBC 2.79 L Hgb 8.9 L Hct 26.8 L MCV 96.1 MCH 31.9 MCHC 33.2 RDW 19.5 H Plt Count 121 MPV 10.0 Gran % 58.0 Lymph % (Auto) 23.2 [place] % (Auto) 13.3 H Eos % (Auto) 4.8 Baso % (Auto) 0.7 Gran # 3.50 Lymph # (Auto) 1.4 Tom[place]kins # (Auto) 0.8 H Eos # (Auto) 0.3 Baso # (Auto) 0.04 PT 16.6 H INR 1.43 H pO2 54 VBG pH 7.36 VBG pCO2 41.0 VBG HCO3 23.2 VBG Total CO2 24.5 VBG O2 Sat (Calc) 91.6 H VBG Base Excess -2.2 L VBG Potassium 5.2 Sodium 130.0 L Chloride 103.0 Glucose 117 H Lactate 1.4 FiO2 21.0 Potassium Carbon Dioxide Anion Gap BUN Creatinine Est GFR ( Amer) Est GFR (Non-Af Amer) Random Glucose Calcium Total Bilirubin AST ALT Alkaline Phosphatase Ammonia Lactate Dehydrogenase Total Creatine Kinase Troponin I NT-Pro-B Natriuret Pep Total Protein Albumin Globulin Albumin/Globulin Ratio Lipase Venous Blood Potassium 5.2 Urine Color Urine Appearance Urine pH Ur Specific [place] Urine Protein Urine Glucose (UA) Urine Ketones Urine Blood Urine Nitrate Urine Bilirubin Urine Urobilinogen Ur Leukocyte Esterase Urine RBC Urine WBC Ur Epithelial Cells Hyaline Casts 01/12/18 01/12/18 01/12/18 08:30 08:30 11:20 WBC RBC Hgb Hct MCV MCH MCHC RDW Plt Count MPV Gran % Lymph % (Auto) [place] % (Auto) Eos % (Auto) Baso % (Auto) Gran # Lymph # (Auto) [place] # (Auto) Eos # (Auto) Baso # (Auto) PT INR pO2 VBG pH VBG pCO2 VBG HCO3 VBG Total CO2 VBG O2 Sat (Calc) VBG Base Excess VBG Potassium Sodium 134 Chloride 102 Glucose Lactate FiO2 Potassium 5.1 H Carbon Dioxide 21 Anion Gap 17 BUN 42 H Creatinine 1.9 H Est GFR ( Amer) 44 Est GFR (Non-Af Amer) 36 Random Glucose 111 H Calcium 10.2 Total Bilirubin 2.2 H AST 89 H D ALT 40 Alkaline Phosphatase 336 H Ammonia 54 H Lactate Dehydrogenase 497 Total Creatine Kinase 76 Troponin I 0.02 D NT-Pro-B Natriuret Pep 894 H Total Protein 9.1 H Albumin 3.7 Globulin 5.5 Albumin/Globulin Ratio 0.7 L Lipase 178 Venous Blood Potassium Urine Color Yellow Urine Appearance Clear Urine pH 6.0 Ur Specific [place] 1.020 Urine Protein Trace H Urine Glucose (UA) Negative Urine Ketones Negative Urine Blood Negative Urine Nitrate Negative Urine Bilirubin Negative Urine Urobilinogen 1.0 H Ur Leukocyte Esterase Trace H Urine RBC Negative Urine WBC 0 - 2 Ur Epithelial Cells None Hyaline Casts 0 - 2 Assessment & Plan - Assessment and Plan (Free Text) Assessment: This is a 62 yo M with PMH of HTN, GERD, Non-alcoholic liver cirrhosis , Ascites, diastolic CHF, afib s/p cardioversion, and esophageal varices who presents to [facility] with complaint of acute onset confusion that began this morning. He is being treated for KEYUR on CKD and possible hepatic encephalopathy. Plan: 1) Confusion -hepatic encephalopathy vs 2/2 infectious process vs TIA -multiple prior episodes of hepatic encephalopathy, ammonia 54 (was 73 at last discharge on 12/24/17) -reports compliance with home meds, continuing Lactulose and Rifaxamine -no leukocytosis, afebrile, but reports nausea and "dry heaves" for 2 days; presentation and sx not consistent with SBP, will defer antibiotics at this time -awake and alert now, oriented x2, appears to be improving compared to level of confusion this AM as described, continue to monitor -CXR concerning for possible pleural effusion on R, CT chest ordered to assess, if significant collection present will consult IR for thoracentesis -Blood and urine cultures pending, procal pending -avoid overly sedation meds where feasible -Zofran PRN for nausea 2) KEYUR on CKD -may be dehydration given nausea/dry heaves patient reports, but he reports maintaining PO intake -some chronic ascites, but not distended/taut abdomen, unlikely congestive insult or abdominal compartment syndrome based injury -Nephro (Alvino) consulted, appreciate all recs -holding home Lasix and Aldactone due to KEYUR, can resume when cleared by Nephro -Urine urea, creatinine, and sodium pending, will calculate FeUrea when results return (FeNa not reliable due to use of diuretics) 3) Hx Diastolic CHF -EF > 50% on Echo from Aug 2017 -holding diuretics due to KEYUR 4) History Non-Alcoholic Liver Cirrhosis with associated Esophageal Varices and Ascites -Continue home Nadolol 10mg PO QD, Neutra-Phos supplementation and Zofran PRN -LFTs and TBili at baseline -holding Lasix/Aladactone due to KEYUR, will start on 1500cc fluid restriction tomorrow 5) Hx Atrial Fibrillation requiring Cardioversion -EKG showing patient in SR, normal intervals -continue to monitor 6) CAD s/p stent placement 09/06 -Continue home Aspirin 81mg, midodrine -holding aldactone due to KEYUR 7) Chronic Anemia -Hgb 8.9 today, at baseline as per chart review of prior Hgbs -monitor on daily CBC -had Iron panel wnl on 11/21/17, no need for repeat at this time 8) Hyperkalemia -mild at 5.1, may be 2/2 KEYUR on CKD -no need for acute intervention given lack of cardiac complaints and normal EKG , will likely improve given multiple BM daily on current lactulose regimen Dispo: Tele obs, pending mental status reassessment after Lactulose/Rifaxamin, pending CT chest, pending Nephro eval and recs FEN: GI heart-healthy diet, 1500cc fluid restriction to start tomorrow Access: Peripheral IV Consults: Nephro Ppx: Protonix for GI, SCDs for DVT Patient reviewed and discussed with attending, Dr. Dailey. <Richa Dailey - Last Filed: 01/13/18 13:56> Results - Vital Signs Recent Vital Signs: Last Vital Signs Temp 97.5 F L 01/13/18 06:00 Pulse 62 01/13/18 09:40 Resp 18 01/13/18 06:00 BP 143/69 01/13/18 09:40 Pulse Ox 100 01/13/18 06:00 - Labs Result Diagrams: 01/13/18 07:30 01/13/18 07:30 Labs: Laboratory Results - last 24 hr 01/13/18 01/13/18 01/13/18 00:20 00:20 07:30 WBC RBC Hgb Hct MCV MCH MCHC RDW Plt Count MPV Gran % Lymph % (Auto) [place] % (Auto) Eos % (Auto) Baso % (Auto) Gran # Lymph # (Auto) [place] # (Auto) Eos # (Auto) Baso # (Auto) Sodium 137 Potassium 5.5 H Chloride 102 Carbon Dioxide 21 Anion Gap 19 BUN 38 H Creatinine 1.7 H Est GFR ( Amer) 50 Est GFR (Non-Af Amer) 41 Random Glucose 89 Calcium 10.3 Phosphorus 4.8 H Magnesium 2.0 Iron TIBC % Saturation Ferritin 42.3 Total Bilirubin 3.1 H AST 83 H ALT 39 Alkaline Phosphatase 356 H Total Protein 9.1 H Albumin 3.6 Globulin 5.5 Albumin/Globulin Ratio 0.7 L 25-OH Vitamin D Total Ur Random Creatinine 59 U Random Total Protein 19 Ur Random Sodium 80 Ur Random Urea Nitrogn 782 Urine Microalbumin 42.5 H 01/13/18 01/13/18 07:30 07:30 WBC 5.4 RBC 2.80 L Hgb 8.8 L Hct 27.3 L MCV 97.5 MCH 31.4 MCHC 32.2 RDW 19.7 H Plt Count 114 L MPV 9.7 Gran % 63.2 Lymph % (Auto) 20.9 L [place] % (Auto) 12.1 H Eos % (Auto) 3.2 Baso % (Auto) 0.6 Gran # 3.38 Lymph # (Auto) 1.1 L [place] # (Auto) 0.7 H Eos # (Auto) 0.2 Baso # (Auto) 0.03 Sodium Potassium Chloride Carbon Dioxide Anion Gap BUN Creatinine Est GFR ( Amer) Est GFR (Non-Af Amer) Random Glucose Calcium Phosphorus Magnesium Iron 50 TIBC 331 % Saturation 15 L Ferritin Total Bilirubin AST ALT Alkaline Phosphatase Total Protein Albumin Globulin Albumin/Globulin Ratio 25-OH Vitamin D Total 83.5 Ur Random Creatinine U Random Total Protein Ur Random Sodium Ur Random Urea Nitrogn Urine Microalbumin Attending/Attestation - Attestation I have personally seen and examined this patient.: Yes I have fully participated in the care of the patient.: Yes I have reviewed all pertinent clinical information: Yes Notes (Text): 01/13/18 13:51 Patient was seen and examined with medical terminologist.Agreed with assessment and plan. 62 year old male with PMH of chronic liver disease, afib s/p cardioversion, hypertension and esophageal varices who presented with nausea, decrease oral intake, found to have acute on chronic renal failure, creatinin increased to 1.9 , also has mild hyperkalemia with out any EKG changes.Ammonia level is mildly elevated but patient is alert,awake and oriented. We will hold lasix/aldactone. Patient was given lactulose in ER, already had bowel movement, will continue current dose of lactulose. We will follow BUN/Creatinin and K level. Management plan was discussed in detail with patient .Education was provided.
[2018-01-12] MEDS ORDERED: Morphine 2 mg/ml ISec IVP STA (15:02)
[2018-01-12] MEDS ORDERED: Influenza Vaccine 60 mcg/0.5 mL SYR (4YR UP) IM ONE (16:46)
[2018-01-12] MEDS ORDERED: Pneumococcal 23-Valent Vaccine IM ONE (16:46)
--- NOTE | 2018-01-12 18:59 | CARD ---
APPROVED REPORT EKG Measurement Heart [id number] <Conclusion> Normal sinus rhythm Normal ECG
[2018-01-12] MEDS: Potassium & Sodium Phosphate PO SCH (19:00)
--- NOTE | 2018-01-12 21:29 | CP.PCM.CON ---
History of Present Illness - History of Present Illness History of Present Illness: 62 yo M w/ pmh of htn, liver cirrhosis of unclear etiology w/ ascites and esophageal varices, GERD, CHF w/ preserved EF, afib s/p cardioversion, was brought to ED after being found to be confused; nephrology being consulted for acute renal failure; Patient discharged earlier this month after being treated for hepatic encephalopathy, pneumonia and pre-renal KEYUR; reports being compliant with all his meds including lactulose and diuretics following discharge; Patient reports decreased appetite since past couple of days and nausea with dry heaves; he has been losing weight but denies any night sweats/chills (is unclear about fevers); is unclear about having diarrhea; Patient denies any change in urination lately (not decreased, no dysuria, no difficulty with stream); he denies any shortness of breath, leg swelling, chest pain or palpitaions; Review of Systems - Constitutional Constitutional: As Per HPI - EENT Eyes: absent: Change in Vision Nose/Mouth/Throat: absent: Nasal Discharge, Dysphagia, Odynophagia - Cardiovascular Cardiovascular: absent: Chest Pain, Palpitations - Respiratory Respiratory: absent: Dyspnea - Gastrointestinal Gastrointestinal: As Per HPI - Genitourinary Genitourinary: As Per HPI - Musculoskeletal Additional comments: describes some low back pain of recent onset; only taking tylenol sparingly; no NSAIDS - Integumentary Integumentary: absent: Rash - Neurological Neurological: Confusion. absent: Dizziness - Psychiatric Additional comments: lack of sleep recently; Past Patient History - Infectious Disease Hx of Infectious Diseases: None - Tetanus Immunizations Tetanus Immunization: Unknown - Past Medical History & Family History Past Medical History?: Yes Pertinent Family History: denies any family med history - Past Social History Smoking Status: Former Smoker - CARDIAC Hx Cardiac Disorders: Yes Hx Cardia Arrhythmia: Yes (AFIB) Hx Congestive Heart Failure: Yes Hx Hypertension: Yes - PULMONARY Hx Respiratory Disorders: Yes Hx Pneumonia: Yes (09/06) - NEUROLOGICAL Hx Neurological Disorder: No - HEENT Hx HEENT Problems: No - RENAL Hx Renal Failure: Yes - ENDOCRINE/METABOLIC Hx Endocrine Disorders: No - HEMATOLOGICAL/ONCOLOGICAL Hx Blood Disorders: Yes Hx Cirrhosis: Yes (PARACENTESIS) - INTEGUMENTARY Hx Dermatological Problems: No - MUSCULOSKELETAL/RHEUMATOLOGICAL Hx Musculoskeletal Disorders: Yes Hx Back Pain: Yes Hx Falls: Yes Hx Unsteady Gait: Yes - GASTROINTESTINAL Hx Gastrointestinal Disorders: Yes (UPPER GI BLEED) Hx Gastroesophageal Reflux: Yes - GENITOURINARY/GYNECOLOGICAL Hx Genitourinary Disorders: No - PSYCHIATRIC Hx Psychophysiologic Disorder: Yes Hx Anxiety: Yes Hx Substance Use: No - SURGICAL HISTORY Hx Surgeries: Yes (STENT X1) Hx Coronary Stent: Yes - ANESTHESIA Hx Anesthesia Reactions: No Hx Malignant Hyperthermia: No Meds Allergies/Adverse Reactions: Allergies Allergy/AdvReac Type Severity Reaction Status Date / Time Beef Containing Products Allergy Severe ANAPHYLAXIS Verified 01/12/18 14:55 beef derived (bovine) Allergy Severe ANAPHYLAXIS Verified 01/12/18 14:55 banana Allergy Intermediate ITCHING Verified 01/12/18 14:55 velcro Allergy ITCHING Uncoded 01/12/18 14:55 - Medications Medications: Current Medications Ascorbic Acid (Vitamin C 500 Mg Tab) 1,000 mg PO BID [facility] Last Admin: 01/12/18 19:00 Dose: 1,000 mg Cholecalciferol (Vitamin D) 2,000 intlu PO DAILY [facility] Cyanocobalamin (Vitamin B12 1000 Mcg Tab) 1,000 mcg PO DAILY [facility] Lactulose (Enulose) 20 gm PO BID [facility] Last Admin: 01/12/18 20:23 Dose: 20 gm Midodrine (Proamatine) 10 mg PO TID [facility] Nadolol (Corgard) 10 mg PO DAILY [facility] Ondansetron HCl (Zofran Inj) 4 mg IVP Q6H PRN PRN Reason: Nausea/Vomiting Pantoprazole Sodium (Protonix Ec Tab) 40 mg PO DAILY [facility] Potassium Phos/Sodium Phos (Neutra-Phos) 2 pkt PO BID [facility] Last Admin: 01/12/18 19:00 Dose: 2 pkt Rifaximin (Xifaxan) 550 mg PO BID [facility] PRN Reason: Protocol Last Admin: 01/12/18 19:05 Dose: 550 mg Physical Exam - Constitutional Appears: Non-toxic, No Acute Distress, Cachectic - Eye Exam Eye Exam: Normal appearance. absent: Scleral icterus - ENT Exam ENT Exam: Mucous Membranes Moist - Respiratory Exam Respiratory Exam: Clear to Auscultation Bilateral. absent: Respiratory Distress - Cardiovascular Exam Cardiovascular Exam: RRR, +S1, +S2 - GI/Abdominal Exam GI & Abdominal Exam: Soft. absent: Distended, Tenderness - Exam Exam: absent: Bladder Distension - Extremities Exam Extremities exam: Positive for: pedal pulses present Additional comments: decreased DP pulse on L; no leg edema; - Back Exam Back exam: CVA tenderness (L), CVA tenderness (R) - Neurological Exam Neurological exam: Alert Additional comments: confused regarding date; mild asterixis present - Psychiatric Exam Psychiatric exam: Normal Affect, Normal Mood - Skin Skin Exam: Warm Results - Vital Signs Recent Vital Signs: Last Vital Signs Temp 97.6 F 01/12/18 16:20 Pulse 78 01/12/18 20:36 Resp 16 01/12/18 20:36 BP 134/68 01/12/18 20:36 Pulse Ox 98 01/12/18 20:36 - Labs Result Diagrams: 01/12/18 08:30 01/12/18 08:30 - Imaging and Cardiology Chest x-ray Status: Image reviewed by me Additional comment: Haziness at R base Assessment & Plan (1) Acute renal failure Assessment and Plan: Worsening renal function over past several months with baseline creat 1.1 -> 1.9 today; no significant albuminuria on UA though will need to quantify total protein; BP relatively stable with patient on midodrine and no obvious signs/ symptoms of infection that may be indicative of ATN; patient had been having decreased PO intake and was on standing doses of diuretics as well as lactulose ; will attempt volume replenishment to r/o pre-renal component of KEYUR; nevertheless, concern remains for hepatorenal syndrome of a more insidious onset ; -Starting IV albumin 25% q4h x 6 doses -NS at 60 cc/hr -awaiting urine lytes, protein, microalbumin, creatinine -hold diuretics; Status: Acute (2) Hyperkalemia Assessment and Plan: Mild, will re-assess with reponse to IVF as above; Status: Acute (3) CKD (chronic kidney disease) Assessment and Plan: Progressive renal insufficiency 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
[2018-01-13 01:40] LABS: CREATININE,RANDOM URINE 59 mg/dL; TOTAL PROTEIN,RANDOM URINE 19 mg/L
[2018-01-13] MEDS ORDERED: Albumin Human 25% (12.5 gm/50 ml) IV SCH (06:30)
[2018-01-13] MEDS ORDERED: Sodium Chloride 0.9% 1,000 ML IV SCH (06:30)
[2018-01-13] MEDS: Albumin Human 25% (12.5gm/50 ML) IVPB SCH ×5 (06:44→21:30)
[2018-01-13 07:39] LABS: BASO # 0.03 K/mm3 (0.0-2.0); BASO % 0.6 % (0.0-3.0); EOS # 0.2 (0.0-0.7); EOS % 3.2 % (1.5-5.0); GRAN # 3.38 (1.4-6.5); GRAN % 63.2 % (50.0-68.0); HEMOGLOBIN 8.8 g/dL (14.0-18.0); LYMPH # 1.1 (1.2-3.4); LYMPH % 20.9 % (22.0-35.0); MEAN CELL VOLUME 97.5 fl (80.0-105.0); MEAN CORPUSCULAR HEMOGLOBIN 31.4 pg (25.0-35.0); MEAN CORPUSCULAR HGB CONC 32.2 g/dl (31.0-37.0); MEAN PLATELET VOLUME 9.7 fl (7.0-11.0); MONO # 0.7 (0.1-0.6); MONO % 12.1 % (1.0-6.0); RBC 2.8 10^6/uL (3.5-6.1); RED CELL DISTRIBUTION WIDTH 19.7 % (11.5-14.5); WHITE BLOOD COUNT 5.4 10^3/ul (4.5-11.0)
[2018-01-13 07:55] LABS: ALB/GLOB RATIO 0.7 (1.1-1.8); ALBUMIN 3.6 g/dL (3.0-4.8); CALCIUM 10.3 mg/dL (8.4-10.5)
[2018-01-13] MEDS: Potassium & Sodium Phosphate PO SCH (09:39)
[2018-01-13] MEDS: Cholecalciferol 1,000 INTLU TAB PO SCH (09:40)
[2018-01-13] MEDS: Pantoprazole 40 mg EC Tab PO SCH (09:41)
[2018-01-13] MEDS ORDERED: Non Formulary Medication (Cholecalciferol (Vitamin D3) [Vitamin D3] 2,000 UNIT) PO SCH (10:00)
[2018-01-13] MEDS ORDERED: Albuterol 0.083% Inhal Sol (2.5 mg/3 mL) UD INH ONE (10:48)
[2018-01-13 12:08] LABS: FERRITIN 42.3 ng/mL
--- NOTE | 2018-01-13 15:57 | CP.PCM.PN ---
<John Murray - Last Filed: 01/13/18 15:21> Subjective - Date & Time of Evaluation Date of Evaluation: 01/13/18 Time of Evaluation: 15:21 - Subjective Subjective: Medicine Progress Note: Patient seen and assessed at bedside. No acute events overnight noted by patient or nursing staff. Patient is alert and oriented to person, place, time and event. Patient reporting that he still has nausea but that this has decreased to a significant degree. He has no other complaints at this time including fever, chills, headache, chest pain, palpitations, SOB, cough, sputum , wheezing, abdominal pain, V/D/C, urinary symptoms, skin changes or any numbness/tingling of any extremity. Objective - Vital Signs/Intake and Output Vital Signs (last 24 hours): Temp Pulse Resp BP Pulse Ox 97.5 F L 62 18 143/69 100 01/13/18 06:00 01/13/18 09:40 01/13/18 06:00 01/13/18 09:40 01/13/18 06:00 Intake and Output: 01/13/18 01/13/18 06:59 18:59 Intake Total 120 120 Output Total 100 Balance 20 120 - Medications Medications: Current Medications Ascorbic Acid (Vitamin C 500 Mg Tab) 1,000 mg PO BID [facility] Last Admin: 01/13/18 09:41 Dose: 1,000 mg Cholecalciferol (Vitamin D) 2,000 intlu PO DAILY [facility] Last Admin: 01/13/18 09:40 Dose: 2,000 intlu Cyanocobalamin (Vitamin B12 1000 Mcg Tab) 1,000 mcg PO DAILY [facility] Last Admin: 01/13/18 09:41 Dose: 1,000 mcg Albumin Human (Albumin Human 25% (12.5 Gm/50 Ml)) 50 mls @ 1 mls/min IVPB Q4H [facility] Stop: 01/14/18 03:19 Last Admin: 01/13/18 14:05 Dose: 1 mls/min Lactulose (Enulose) 20 gm PO TID [facility] Last Admin: 01/13/18 14:05 Dose: 20 gm Midodrine (Proamatine) 10 mg PO TID [facility] Last Admin: 01/13/18 14:05 Dose: 10 mg Nadolol (Corgard) 10 mg PO DAILY [facility] Last Admin: 01/13/18 09:40 Dose: 10 mg Ondansetron HCl (Zofran Inj) 4 mg IVP Q6H PRN PRN Reason: Nausea/Vomiting Pantoprazole Sodium (Protonix Ec Tab) 40 mg PO DAILY [facility] Last Admin: 01/13/18 09:41 Dose: 40 mg Rifaximin (Xifaxan) 550 mg PO BID [facility] PRN Reason: Protocol Last Admin: 01/13/18 09:39 Dose: 550 mg - Labs Labs: 01/13/18 07:30 01/13/18 07:30 PT 16.6 SECONDS (9.4-12.5) H 01/12/18 08:30 INR 1.43 (0.93-1.08) H 01/12/18 08:30 - Constitutional Appears: Non-toxic, No Acute Distress, Cachectic - Head Exam Head Exam: ATRAUMATIC, NORMOCEPHALIC - Eye Exam Eye Exam: EOMI, PERRL. absent: Scleral icterus - ENT Exam ENT Exam: Mucous Membranes Moist - Respiratory Exam Respiratory Exam: Clear to Ausculation Bilateral, NORMAL BREATHING PATTERN. absent: Decreased Breath Sounds, Rales, Rhonchi, Wheezes, Respiratory Distress - Cardiovascular Exam Cardiovascular Exam: REGULAR RHYTHM, RRR, +S1, +S2 - GI/Abdominal Exam GI & Abdominal Exam: Soft, Normal Bowel Sounds. absent: Distended, Firm, Guarding, Rigid, Tenderness, Rebound - Extremities Exam Extremities Exam: Normal Capillary Refill. absent: Calf Tenderness, Joint Swelling, Pedal Edema - Neurological Exam Neurological Exam: Alert, Awake, Oriented x3 - Psychiatric Exam Psychiatric exam: Normal Affect, Normal Mood - Skin Skin Exam: Dry, Intact, Normal Color, Warm Assessment and Plan - Assessment and Plan (Free Text) Assessment: 62 year old male with a past medical history significant for HTN, GERD, non- alcoholic liver cirrhosis, ascites, diastolic CHF, atrial fibrillation s/p cardioversion, and esophageal varices who presented with AMS. The AMS has resolved and patient is currently being treated for acute on chronic renal failure and hyperkalemia. Plan: 1. AMS -Currently alert and oriented to person, place, time and event -CT head showed no acute intracranial abnormality -Procalcitonin within normal limits and blood/urine cultures negative for 24 hours -Ammonia noted to be elevated but near patients baseline -Continue Lactulose and Rifaximine -Continue Zofran PRN for N/V 2. Acute on Chronic Renal Failure -BUN/Creatinine downtrending from 1.9 to 1.7 -Continue IV albumin 25% q4h x 6 doses to rule out pre-renal etiology -Continue Midodrine -CKD parameters pending -Holding diuretics and nephrotoxic agents -Nephrology consulted, all recommendations appreciated 3. Hyperkalemia -Potassium increased from 5.1 to 5.5 -Repeat EKG shows NSR with normal intervals and no ST-T segment changes -Given one treatment of 9.5mg Albuterol IH -Increased lactulose from BID to TID -Stopped Neutra-Phos supplementation -Afternoon Potassium pending -Continue to monitor with daily CMP's 4. Non-Alcoholic Liver Disease -Continue home Nadolol -Liver enzymes and total bilirubin noted to be at patients baseline -Continue fluid restriction and strict I/O's 5. History of Diastolic CHF -Echo from 08/2017 reviewed -Currently holding diuretics in setting of acute renal failure 6. History of Atrial Fibrillation S/P Cardioversion -EKG showing normal sinus rhythm -No acute interventions at this time 7. History of CAD S/P Stent (08/2017) -Continue home ASA 8. Chronic Normocytic Anemia -H/H stable at patients baseline -Iron and TIBC within normal limits -Continue to monitor with daily CBC's GI Prophylaxis: Protonix DVT Prophylaxis: SCD's Patient seen and case discussed with attending, Dr. Dailey. <Richa Dailey - Last Filed: 01/14/18 09:48> Objective - Vital Signs/Intake and Output Vital Signs (last 24 hours): Temp Pulse Resp BP Pulse Ox 98.2 F 63 20 112/62 98 01/14/18 07:58 01/14/18 07:58 01/14/18 07:58 01/14/18 07:58 01/14/18 07:58 Intake and Output: 01/14/18 01/14/18 06:59 18:59 Intake Total 1300 Output Total 875 Balance 425 - Medications Medications: Current Medications Ascorbic Acid (Vitamin C 500 Mg Tab) 1,000 mg PO BID [facility] Last Admin: 01/13/18 18:04 Dose: 1,000 mg Cholecalciferol (Vitamin D) 2,000 intlu PO DAILY [facility] Last Admin: 01/13/18 09:40 Dose: 2,000 intlu Cyanocobalamin (Vitamin B12 1000 Mcg Tab) 1,000 mcg PO DAILY [facility] Last Admin: 01/13/18 09:41 Dose: 1,000 mcg Lactulose (Enulose) 20 gm PO TID [facility] Last Admin: 01/13/18 18:04 Dose: 20 gm Midodrine (Proamatine) 10 mg PO TID [facility] Last Admin: 01/13/18 18:04 Dose: 10 mg Nadolol (Corgard) 10 mg PO DAILY [facility] Last Admin: 01/13/18 09:40 Dose: 10 mg Ondansetron HCl (Zofran Inj) 4 mg IVP Q6H PRN PRN Reason: Nausea/Vomiting Last Admin: 01/14/18 03:10 Dose: 4 mg Pantoprazole Sodium (Protonix Ec Tab) 40 mg PO DAILY [facility] Last Admin: 01/13/18 09:41 Dose: 40 mg Rifaximin (Xifaxan) 550 mg PO BID [facility] PRN Reason: Protocol Last Admin: 01/13/18 18:04 Dose: 550 mg Sodium Bicarbonate (Sodium Bicarbonate Tab) 650 mg PO BID [facility] - Labs Labs: 01/14/18 07:00 01/14/18 07:00 PT 16.6 SECONDS (9.4-12.5) H 01/12/18 08:30 INR 1.43 (0.93-1.08) H 01/12/18 08:30 Attending/Attestation - Attestation I have personally seen and examined this patient.: Yes I have fully participated in the care of the patient.: Yes I have reviewed all pertinent clinical information, including history, physical exam and plan: Yes Notes (Text): 01/14/18 09:46 Patient was seen and examined with biomedical repair technician.Agreed with assessment and plan. 62 year old male with PMH of chronic liver disease, afib s/p cardioversion, hypertension and esophageal varices who presented with nausea, decrease oral intake, found to have acute on chronic renal failure, creatinin increased to 1.9 , also has mild hyperkalemia with out any EKG changes.Ammonia level is mildly elevated but patient is alert,awake and oriented. Patient mental status is at base line today. Creatinin is coming down, 1.7 today. Hyperkalemia with out EKG changes, Hyperkalemia is atrogenic, will monitor, having loose stools on lactulose.Albuterol inhalation was given.We will follow up repeat LABS. Management plan was discussed in detail with patient .Education was provided.
[2018-01-13 19:21] VITALS: RESP 20
--- NOTE | 2018-01-13 22:20 | CP.PCM.PN ---
Subjective - Date & Time of Evaluation Date of Evaluation: 01/13/18 Time of Evaluation: 17:00 - Subjective Subjective: Patient reports feeling better, tolerating diet, ambulating without dizziness, urinating well; Objective - Vital Signs/Intake and Output Vital Signs (last 24 hours): Temp Pulse Resp BP Pulse Ox 97.9 F 65 20 119/68 100 01/13/18 16:00 01/13/18 16:00 01/13/18 16:00 01/13/18 16:00 01/13/18 16:00 Intake and Output: 01/13/18 01/14/18 18:59 06:59 Intake Total 120 540 Output Total 400 Balance 120 140 - Medications Medications: Current Medications Ascorbic Acid (Vitamin C 500 Mg Tab) 1,000 mg PO BID [facility] Last Admin: 01/13/18 18:04 Dose: 1,000 mg Cholecalciferol (Vitamin D) 2,000 intlu PO DAILY [facility] Last Admin: 01/13/18 09:40 Dose: 2,000 intlu Cyanocobalamin (Vitamin B12 1000 Mcg Tab) 1,000 mcg PO DAILY [facility] Last Admin: 01/13/18 09:41 Dose: 1,000 mcg Albumin Human (Albumin Human 25% (12.5 Gm/50 Ml)) 50 mls @ 1 mls/min IVPB Q4H [facility] Stop: 01/14/18 03:19 Last Admin: 01/13/18 21:30 Dose: 1 mls/min Lactulose (Enulose) 20 gm PO TID [facility] Last Admin: 01/13/18 18:04 Dose: 20 gm Midodrine (Proamatine) 10 mg PO TID [facility] Last Admin: 01/13/18 18:04 Dose: 10 mg Nadolol (Corgard) 10 mg PO DAILY [facility] Last Admin: 01/13/18 09:40 Dose: 10 mg Ondansetron HCl (Zofran Inj) 4 mg IVP Q6H PRN PRN Reason: Nausea/Vomiting Pantoprazole Sodium (Protonix Ec Tab) 40 mg PO DAILY [facility] Last Admin: 01/13/18 09:41 Dose: 40 mg Rifaximin (Xifaxan) 550 mg PO BID [facility] PRN Reason: Protocol Last Admin: 01/13/18 18:04 Dose: 550 mg - Labs Labs: 01/13/18 07:30 01/13/18 15:10 PT 16.6 SECONDS (9.4-12.5) H 01/12/18 08:30 INR 1.43 (0.93-1.08) H 01/12/18 08:30 - Constitutional Appears: Non-toxic, No Acute Distress - Eye Exam Eye Exam: absent: Scleral icterus - ENT Exam Additional comments: sunken eyes - Respiratory Exam Respiratory Exam: Clear to Ausculation Bilateral. absent: Respiratory Distress - Cardiovascular Exam Cardiovascular Exam: RRR, +S1, +S2 - GI/Abdominal Exam GI & Abdominal Exam: Soft. absent: Distended, Tenderness - Exam Exam: absent: Bladder Distension - Extremities Exam Additional comments: no leg edema; - Neurological Exam Neurological Exam: Alert, Awake - Psychiatric Exam Psychiatric exam: Normal Affect, Normal Mood. absent: Agitated - Skin Skin Exam: Warm. absent: Cyanosis Assessment and Plan (1) Acute renal failure Assessment & Plan: KEYUR on CKD III; likely pre-renal etiology in the setting of GI losses from being on lactulose and decreased PO intake as well as being on diuretics; getting IV albumin for volume repletion; hemodynamically stable; -continue to hold diuretics for now -avoid nephrotoxic insults Status: Acute (2) Hyperkalemia Assessment & Plan: Improved; was getting K-phos in addition to being on aldactone, both currently held; will benefit from ongoing volume repletion as well; Status: Acute (3) CKD (chronic kidney disease) Assessment & Plan: Very mild microalbuminuria (72 mg/g), otherwise mostly non-proteinuric kidney disease of unclear etiology with widely variable serum creatinine indicative of hemodynamic fluctuations (baseline creatinine actually 1.1 from 09/2017); -Will obtain bladder US w/ post-void residual volume measurement to look for reflux nephropathy Status: Acute (4) Hepatic encephalopathy Assessment & Plan: Has been relatively asymptomatic, should consider decreasing frequency of lactulose to avoid volume depletion; Status: Chronic (5) Anemia Status: Chronic (6) Ascites Assessment & Plan: No significant ascites on exam currently; need to re-establish adequate diuretic regimen to prevent recurrence; may not be able to avoid hyperkalemia with aldactone in the setting of CKD; Status: Chronic
--- NOTE | 2018-01-13 22:27 | CARD ---
APPROVED REPORT EKG Measurement Heart [id number] <Conclusion> Sinus bradycardia Otherwise normal ECG
[2018-01-14] MEDS: Albumin Human 25% (12.5gm/50 ML) IVPB SCH (01:55)
[2018-01-14] MEDS ORDERED: Morphine 2 mg/ml ISec IVP STA (02:57)
[2018-01-14 07:45] LABS: BASO # 0.03 K/mm3 (0.0-2.0); BASO % 0.6 % (0.0-3.0); EOS # 0.2 (0.0-0.7); EOS % 4.3 % (1.5-5.0); GRAN # 2.63 (1.4-6.5); GRAN % 51.4 % (50.0-68.0); HEMOGLOBIN 8.2 g/dL (14.0-18.0); LYMPH # 1.3 (1.2-3.4); LYMPH % 24.8 % (22.0-35.0); MEAN CELL VOLUME 96.2 fl (80.0-105.0); MEAN CORPUSCULAR HEMOGLOBIN 31.5 pg (25.0-35.0); MEAN CORPUSCULAR HGB CONC 32.8 g/dl (31.0-37.0); MEAN PLATELET VOLUME 9.4 fl (7.0-11.0); MONO % 18.9 % (1.0-6.0); RBC 2.6 10^6/uL (3.5-6.1); RED CELL DISTRIBUTION WIDTH 19.9 % (11.5-14.5); WHITE BLOOD COUNT 5.1 10^3/ul (4.5-11.0)
[2018-01-14 07:56] VITALS: BP 112/62; PULSE 63; TEMP 98.2; O2SAT 98
[2018-01-14 08:37] LABS: ALB/GLOB RATIO 0.8 (1.1-1.8)
--- NOTE | 2018-01-14 09:28 | CP.PCM.DIS ---
<Rachel Castro - Last Filed: 01/14/18 11:24> Provider - Provider Date of Admission: 01/12/18 13:53 Attending physician: Richa Dailey MD Primary care physician: Surinder Bishop MD Consults: Elsa De Oliveira Time Spent in preparation of Discharge (in minutes): 35 Diagnosis - Discharge Diagnosis (1) KEYUR (acute kidney injury) Status: Acute (2) CKD (chronic kidney disease) Status: Acute (3) Hyperkalemia Status: Acute Hospital Course - Lab Results Lab Results: Most Recent Lab Values WBC 5.1 10^3/ul (4.5-11.0) 01/14/18 07:00 RBC 2.60 10^6/uL (3.5-6.1) L 01/14/18 07:00 Hgb 8.2 g/dL (14.0-18.0) L 01/14/18 07:00 Hct 25.0 % (42.0-52.0) L 01/14/18 07:00 MCV 96.2 fl (80.0-105.0) 01/14/18 07:00 MCH 31.5 pg (25.0-35.0) 01/14/18 07:00 MCHC 32.8 g/dl (31.0-37.0) 01/14/18 07:00 RDW 19.9 % (11.5-14.5) H 01/14/18 07:00 Plt Count 109 10^3/uL (120.0-450.0) L 01/14/18 07:00 MPV 9.4 fl (7.0-11.0) 01/14/18 07:00 Gran % 51.4 % (50.0-68.0) 01/14/18 07:00 Lymph % (Auto) 24.8 % (22.0-35.0) 01/14/18 07:00 [place] % (Auto) 18.9 % (1.0-6.0) H 01/14/18 07:00 Eos % (Auto) 4.3 % (1.5-5.0) 01/14/18 07:00 Baso % (Auto) 0.6 % (0.0-3.0) 01/14/18 07:00 Gran # 2.63 (1.4-6.5) 01/14/18 07:00 Lymph # (Auto) 1.3 (1.2-3.4) 01/14/18 07:00 [place] # (Auto) 1.0 (0.1-0.6) H 01/14/18 07:00 Eos # (Auto) 0.2 (0.0-0.7) 01/14/18 07:00 Baso # (Auto) 0.03 K/mm3 (0.0-2.0) 01/14/18 07:00 PT 16.6 SECONDS (9.4-12.5) H 01/12/18 08:30 INR 1.43 (0.93-1.08) H 01/12/18 08:30 pO2 54 mm/Hg (30-55) 01/12/18 08:30 VBG pH 7.36 (7.32-7.43) 01/12/18 08:30 VBG pCO2 41.0 (40-60) 01/12/18 08:30 VBG HCO3 23.2 mmol/l (21-28) 01/12/18 08:30 VBG Total CO2 24.5 mmol.L (22-28) 01/12/18 08:30 VBG O2 Sat (Calc) 91.6 % (40-65) H 01/12/18 08:30 VBG Base Excess -2.2 mmol/L (0.0-2.0) L 01/12/18 08:30 VBG Potassium 5.2 mmol/L (3.6-5.2) 01/12/18 08:30 Sodium 130.0 mmol/L (132-148) L 01/12/18 08:30 Chloride 103.0 mmol/L (98-107) 01/12/18 08:30 Glucose 117 mg/dl (75-110) H 01/12/18 08:30 Lactate 1.4 mmol/L (0.7-2.1) 01/12/18 08:30 FiO2 21.0 % 01/12/18 08:30 Sodium 136 mmol/L (132-148) 01/14/18 07:00 Potassium 4.7 mmol/L (3.6-5.0) 01/14/18 07:00 Chloride 103 mmol/L (98-107) 01/14/18 07:00 Carbon Dioxide 19 mmol/L (21-33) L 01/14/18 07:00 Anion Gap 18 (10-20) 01/14/18 07:00 BUN 35 mg/dL (7-21) H 01/14/18 07:00 Creatinine 1.6 mg/dl (0.8-1.5) H 01/14/18 07:00 Est GFR ( Amer) 53 01/14/18 07:00 Est GFR (Non-Af Amer) 44 01/14/18 07:00 Random Glucose 74 mg/dL (70-110) 01/14/18 07:00 Calcium 10.0 mg/dL (8.4-10.5) 01/14/18 07:00 Phosphorus 4.8 mg/dL (2.5-4.5) H 01/13/18 07:30 Magnesium 2.0 mg/dL (1.7-2.2) 01/13/18 07:30 Iron 50 ug/dL (45-180) 01/13/18 07:30 TIBC 331 ug/dL (261-462) 01/13/18 07:30 % Saturation 15 % (20-55) L 01/13/18 07:30 Ferritin 42.3 ng/mL 01/13/18 07:30 Total Bilirubin 2.9 mg/dL (0.2-1.3) H 01/14/18 07:00 AST 65 U/L (17-59) H D 01/14/18 07:00 ALT 39 U/L (7-56) 01/14/18 07:00 Alkaline Phosphatase 305 U/L (38-126) H 01/14/18 07:00 Ammonia 54 umol/L (9-33) H 01/12/18 08:30 Lactate Dehydrogenase 497 U/L (333-699) 01/12/18 08:30 Total Creatine Kinase 76 U/L (35-230) 01/12/18 08:30 Troponin I 0.02 ng/mL D 01/12/18 08:30 NT-Pro-B Natriuret Pep 894 pg/mL (0-450) H 01/12/18 08:30 Total Protein 9.1 g/dL (5.8-8.3) H 01/14/18 07:00 Albumin 4.0 g/dL (3.0-4.8) 01/14/18 07:00 Globulin 5.1 gm/dL 01/14/18 07:00 Albumin/Globulin Ratio 0.8 (1.1-1.8) L 01/14/18 07:00 Lipase 178 U/L (23-300) 01/12/18 08:30 25-OH Vitamin D Total 83.5 NG/ML (30.0-100.0) 01/13/18 07:30 Procalcitonin 0.41 NG/ML (0.19-0.49) 01/12/18 15:00 Venous Blood Potassium 5.2 mmol/L (3.6-5.2) 01/12/18 08:30 Urine Color Yellow (YELLOW) 01/12/18 11:20 Urine Appearance Clear (CLEAR) 01/12/18 11:20 Urine pH 6.0 (4.7-8.0) 01/12/18 11:20 Ur Specific [place] 1.020 (1.005-1.035) 01/12/18 11:20 Urine Protein Trace mg/dL (<30 mg/dL) H 01/12/18 11:20 Urine Glucose (UA) Negative mg/dL (NEGATIVE) 01/12/18 11:20 Urine Ketones Negative mg/dL (NEGATIVE) 01/12/18 11:20 Urine Blood Negative (NEGATIVE) 01/12/18 11:20 Urine Nitrate Negative (NEGATIVE) 01/12/18 11:20 Urine Bilirubin Negative (NEGATIVE) 01/12/18 11:20 Urine Urobilinogen 1.0 E.U./dL (<1 E.U./dL) H 01/12/18 11:20 Ur Leukocyte Esterase Trace Tomy/uL (NEGATIVE) H 01/12/18 11:20 Urine RBC Negative /hpf (0-2) 01/12/18 11:20 Urine WBC 0 - 2 /hpf (0-6) 01/12/18 11:20 Ur Epithelial Cells None /hpf (0-5) 01/12/18 11:20 Hyaline Casts 0 - 2 /hpf 01/12/18 11:20 Ur Random Creatinine 59 mg/dL 01/13/18 00:20 U Random Total Protein 19 mg/L 01/13/18 00:20 Ur Random Sodium 80 meq/L 01/13/18 00:20 Ur Random Urea Nitrogn 782 mg/dL 01/13/18 00:20 Urine Microalbumin 42.5 mg/L (0.0-16.6) H 01/13/18 00:20 - Hospital Course Hospital Course: 62 yo M with PMH of HTN, GERD, Non-alcoholic liver cirrhosis, Ascites , diastolic CHF, afib s/p cardioversion, and esophageal varices who [place] [facility] [place] complaint of acute onset confusion that began morning of arrival to ED , nausea, decreased oral intake. Pt found to be in acute on chronic renal failure, mild hyperkalemia without EKG changes. Pt's home lasix and aldactone were held to improve renal function. Pt's ammonia level mildly eleveted. Pt returned to his baseline mental status soon after admission. Pt's home neutraphos held, and pt given albuterol inhaler for his K 5.5, which then normalized the following day. Pt instructed to follow up with transplant center as planned, Food Counter Worker (Dr De Oliveira) and PMD in 1 week. Pt and his partner ( Guillermo Myersage) verbalized understanding of the plan. Discussed with Dr Dailey. Discharge Exam - Head Exam Head Exam: ATRAUMATIC, NORMOCEPHALIC - Eye Exam Eye Exam: EOMI, PERRL. absent: Conjunctival injection, Nystagmus, Scleral icterus Pupil Exam: NORMAL ACCOMODATION, PERRL. absent: Fixed, Irregular, Unequal - ENT Exam ENT Exam: Mucous Membranes Moist - Neck Exam Neck exam: Full Rom - Respiratory Exam Respiratory Exam: Clear to PA & Lateral, NORMAL BREATHING PATTERN. absent: Accessory Muscle Use, Chest Wall Tenderness, Respiratory Distress - Cardiovascular Exam Cardiovascular Exam: RRR, +S1, +S2. absent: Systolic Murmur - GI/Abdominal Exam GI & Abdominal Exam: Normal Bowel Sounds, Soft. absent: Distended, Guarding, Hernia, Rigid, Tenderness - Extremities Exam Extremities exam: normal inspection - Back Exam Back exam: NORMAL INSPECTION - Neurological Exam Neurological exam: Alert, Oriented x3 - Psychiatric Exam Psychiatric exam: Normal Affect, Normal Mood - Skin Skin Exam: Dry, Normal Color, Warm Discharge Plan - Follow Up Plan Condition: GOOD Disposition: HOME/ ROUTINE Instructions: Altered Mental Status (DC), Acute Kidney Failure (DC), Hyperkalemia (DC) Additional Instructions: - Take meds as prescribed. - Follow up with transplant center as planned. - Follow up with Food Counter Worker (Dr De Oliveira) in 1 week. - F/u with PMD in 1 week. - Return to ER if any concerns. Referrals: Wood De Oliveira MD [Staff Provider] - Surinder Bishop MD [Primary Care Provider] - <Richa Dailey - Last Filed: 01/15/18 10:40> Provider - Provider Date of Admission: 01/12/18 13:53 Attending physician: Richa Dailey MD Primary care physician: Surinder Bishop MD Hospital Course - Lab Results Lab Results: Most Recent Lab Values WBC 5.1 10^3/ul (4.5-11.0) 01/14/18 07:00 RBC 2.60 10^6/uL (3.5-6.1) L 01/14/18 07:00 Hgb 8.2 g/dL (14.0-18.0) L 01/14/18 07:00 Hct 25.0 % (42.0-52.0) L 01/14/18 07:00 MCV 96.2 fl (80.0-105.0) 01/14/18 07:00 MCH 31.5 pg (25.0-35.0) 01/14/18 07:00 MCHC 32.8 g/dl (31.0-37.0) 01/14/18 07:00 RDW 19.9 % (11.5-14.5) H 01/14/18 07:00 Plt Count 109 10^3/uL (120.0-450.0) L 01/14/18 07:00 MPV 9.4 fl (7.0-11.0) 01/14/18 07:00 Gran % 51.4 % (50.0-68.0) 01/14/18 07:00 Lymph % (Auto) 24.8 % (22.0-35.0) 01/14/18 07:00 [place] % (Auto) 18.9 % (1.0-6.0) H 01/14/18 07:00 Eos % (Auto) 4.3 % (1.5-5.0) 01/14/18 07:00 Baso % (Auto) 0.6 % (0.0-3.0) 01/14/18 07:00 Gran # 2.63 (1.4-6.5) 01/14/18 07:00 Lymph # (Auto) 1.3 (1.2-3.4) 01/14/18 07:00 [place] # (Auto) 1.0 (0.1-0.6) H 01/14/18 07:00 Eos # (Auto) 0.2 (0.0-0.7) 01/14/18 07:00 Baso # (Auto) 0.03 K/mm3 (0.0-2.0) 01/14/18 07:00 PT 16.6 SECONDS (9.4-12.5) H 01/12/18 08:30 INR 1.43 (0.93-1.08) H 01/12/18 08:30 pO2 54 mm/Hg (30-55) 01/12/18 08:30 VBG pH 7.36 (7.32-7.43) 01/12/18 08:30 VBG pCO2 41.0 (40-60) 01/12/18 08:30 VBG HCO3 23.2 mmol/l (21-28) 01/12/18 08:30 VBG Total CO2 24.5 mmol.L (22-28) 01/12/18 08:30 VBG O2 Sat (Calc) 91.6 % (40-65) H 01/12/18 08:30 VBG Base Excess -2.2 mmol/L (0.0-2.0) L 01/12/18 08:30 VBG Potassium 5.2 mmol/L (3.6-5.2) 01/12/18 08:30 Sodium 130.0 mmol/L (132-148) L 01/12/18 08:30 Chloride 103.0 mmol/L (98-107) 01/12/18 08:30 Glucose 117 mg/dl (75-110) H 01/12/18 08:30 Lactate 1.4 mmol/L (0.7-2.1) 01/12/18 08:30 FiO2 21.0 % 01/12/18 08:30 Sodium 136 mmol/L (132-148) 01/14/18 07:00 Potassium 4.7 mmol/L (3.6-5.0) 01/14/18 07:00 Chloride 103 mmol/L (98-107) 01/14/18 07:00 Carbon Dioxide 19 mmol/L (21-33) L 01/14/18 07:00 Anion Gap 18 (10-20) 01/14/18 07:00 BUN 35 mg/dL (7-21) H 01/14/18 07:00 Creatinine 1.6 mg/dl (0.8-1.5) H 01/14/18 07:00 Est GFR ( Amer) 53 01/14/18 07:00 Est GFR (Non-Af Amer) 44 01/14/18 07:00 Random Glucose 74 mg/dL (70-110) 01/14/18 07:00 Calcium 10.0 mg/dL (8.4-10.5) 01/14/18 07:00 Phosphorus 4.8 mg/dL (2.5-4.5) H 01/13/18 07:30 Magnesium 2.0 mg/dL (1.7-2.2) 01/13/18 07:30 Iron 50 ug/dL (45-180) 01/13/18 07:30 TIBC 331 ug/dL (261-462) 01/13/18 07:30 % Saturation 15 % (20-55) L 01/13/18 07:30 Ferritin 42.3 ng/mL 01/13/18 07:30 Total Bilirubin 2.9 mg/dL (0.2-1.3) H 01/14/18 07:00 AST 65 U/L (17-59) H D 01/14/18 07:00 ALT 39 U/L (7-56) 01/14/18 07:00 Alkaline Phosphatase 305 U/L (38-126) H 01/14/18 07:00 Ammonia 54 umol/L (9-33) H 01/12/18 08:30 Lactate Dehydrogenase 497 U/L (333-699) 01/12/18 08:30 Total Creatine Kinase 76 U/L (35-230) 01/12/18 08:30 Troponin I 0.02 ng/mL D 01/12/18 08:30 NT-Pro-B Natriuret Pep 894 pg/mL (0-450) H 01/12/18 08:30 Total Protein 9.1 g/dL (5.8-8.3) H 01/14/18 07:00 Albumin 4.0 g/dL (3.0-4.8) 01/14/18 07:00 Globulin 5.1 gm/dL 01/14/18 07:00 Albumin/Globulin Ratio 0.8 (1.1-1.8) L 01/14/18 07:00 Lipase 178 U/L (23-300) 01/12/18 08:30 25-OH Vitamin D Total 83.5 NG/ML (30.0-100.0) 01/13/18 07:30 Procalcitonin 0.41 NG/ML (0.19-0.49) 01/12/18 15:00 Venous Blood Potassium 5.2 mmol/L (3.6-5.2) 01/12/18 08:30 Urine Color Yellow (YELLOW) 01/12/18 11:20 Urine Appearance Clear (CLEAR) 01/12/18 11:20 Urine pH 6.0 (4.7-8.0) 01/12/18 11:20 Ur Specific [place] 1.020 (1.005-1.035) 01/12/18 11:20 Urine Protein Trace mg/dL (<30 mg/dL) H 01/12/18 11:20 Urine Glucose (UA) Negative mg/dL (NEGATIVE) 01/12/18 11:20 Urine Ketones Negative mg/dL (NEGATIVE) 01/12/18 11:20 Urine Blood Negative (NEGATIVE) 01/12/18 11:20 Urine Nitrate Negative (NEGATIVE) 01/12/18 11:20 Urine Bilirubin Negative (NEGATIVE) 01/12/18 11:20 Urine Urobilinogen 1.0 E.U./dL (<1 E.U./dL) H 01/12/18 11:20 Ur Leukocyte Esterase Trace Tomy/uL (NEGATIVE) H 01/12/18 11:20 Urine RBC Negative /hpf (0-2) 01/12/18 11:20 Urine WBC 0 - 2 /hpf (0-6) 01/12/18 11:20 Ur Epithelial Cells None /hpf (0-5) 01/12/18 11:20 Hyaline Casts 0 - 2 /hpf 01/12/18 11:20 Ur Random Creatinine 59 mg/dL 01/13/18 00:20 U Random Total Protein 19 mg/L 01/13/18 00:20 Ur Random Sodium 80 meq/L 01/13/18 00:20 Ur Random Urea Nitrogn 782 mg/dL 01/13/18 00:20 Urine Microalbumin 42.5 mg/L (0.0-16.6) H 01/13/18 00:20 Attending/Attestation - Attestation I have personally seen and examined this patient.: Yes I have fully participated in the care of the patient.: Yes I have reviewed all pertinent clinical information, including history, physical exam and plan: Yes Notes (Text): 01/15/18 10:38 Patient was seen and examined with district medical examiner.Agreed with assessment and plan. 62 year old male with PMH of chronic liver disease, afib s/p cardioversion, hypertension and esophageal varices was admitted with nausea, decrease oral intake, found to have acute on chronic renal failure, creatinin increased to 1.9 , also has mild hyperkalemia with out any EKG changes.Ammonia level is mildly elevated but patient is alert,awake and oriented. Patient mental status is at base line today. Creatinin has come down to 1.6, base line creatinin is around 1.5 Hyperkalemia has resolved. Patient is at his base line.He has scheduled appointment with liver transplant center next week. He will be discharged home and will follow up with PMD/Nephrology and transplant center. Management plan was discussed in detail with patient .Education was provided
[2018-01-14] MEDS: Cholecalciferol 1,000 INTLU TAB PO SCH (09:46)
[2018-01-14] MEDS: Pantoprazole 40 mg EC Tab PO SCH (09:46)
--- NOTE | 2018-01-14 12:03 | US ---
PROCEDURE: Ultrasound of the Bladder HISTORY: CKD, check post-void residual COMPARISON: None available. TECHNIQUE: Sonographic evaluation of the bladder was performed. FINDINGS: Grossly normal in appearance without wall thickening or intraluminal debris. No calculus or gross mass lesion. No free fluid in pelvis. Bilateral ureteral jets are not visualized on color flow imaging. Prevoid Volume: 238.3 cc. Post void residual: 80.0 cc. There is moderate amount of free fluid in the pelvis. IMPRESSION: Moderate postvoid residual. Moderate pelvic ascites.
== END 2018-01-14 14:23 | disposition home or self-care (01) | DRG 683 ==
LOC: ED 07:50 → ERH 13:53 → 3RNO 20:22
PROVIDERS: ADMIT Internal Medicine; ATTEND Internal Medicine
DX: N17.9 Acute kidney failure, unspecified (principal); I13.0 Hypertensive heart and chronic kidney disease with heart failure and stage 1 through stage 4 chronic kidney disease, or unspecified chronic kidney disease; I85.10 Secondary esophageal varices without bleeding; I48.91 Unspecified atrial fibrillation; E87.5 Hyperkalemia; I50.30 Unspecified diastolic (congestive) heart failure; R18.8 Other ascites; N18.3 Chronic kidney disease, stage 3 (moderate); K74.60 Unspecified cirrhosis of liver; I25.10 Atherosclerotic heart disease of native coronary artery without angina pectoris; K72.90 Hepatic failure, unspecified without coma; K21.9 Gastro-esophageal reflux disease without esophagitis; D64.9 Anemia, unspecified; Z95.5 Presence of coronary angioplasty implant and graft; Z87.891 Personal history of nicotine dependence

== ENCOUNTER 2018-01-25 07:40 | Inpatient (IN) | payer BC ==
[2018-01-25 07:41] VITALS: BMI 19.0
--- NOTE | 2018-01-25 08:25 | ED PDOC ---
Arrival/HPI - General Chief Complaint: Shortness Of Breath Time Seen by Provider: 01/25/18 08:20 - History of Present Illness Narrative History of Present Illness (Text): 63 y/o M c PMHx HTN, GERD, Non-alcoholic liver cirrhosis, Ascites, diastolic CHF , afib s/p cardioversion, and esophageal varices p/w general weakness x 3 weeks. Patient states he feels cold and confused, specifically stating he thought a picture was upside down and he thought the refrigerator door was open. He reports feeling dehydrated. He also complains of back pain bilaterally. He denies fever, chest pain, dyspnea, abdominal pain, diarrhea, dysuria, hematuria, numbness, motor weakness. Past Medical History - Infectious Disease Hx of Infectious Diseases: None - Tetanus Immunization Tetanus Immunization: Unknown - Cardiac Hx Cardiac Disorders: Yes Hx Congestive Heart Failure: Yes Hx Hypertension: Yes - Pulmonary Hx Respiratory Disorders: Yes Hx Pneumonia: Yes (09/06) - Neurological Hx Neurological Disorder: No - HEENT Hx HEENT Disorder: No - Renal Hx Renal Failure: Yes - Endocrine/Metabolic Hx Endocrine Disorders: No - Hematological/Oncological Hx Blood Disorders: Yes Hx Cirrhosis: Yes (PARACENTESIS) - Integumentary Hx Dermatological Disorder: No - Musculoskeletal/Rheumatological Hx Musculoskeletal Disorders: Yes Hx Back Pain: Yes Hx Falls: Yes Hx Unsteady Gait: Yes - Gastrointestinal Hx Gastrointestinal Disorders: Yes (UPPER GI BLEED) Hx Gastroesophageal Reflux: Yes - Genitourinary/Gynecological Hx Genitourinary Disorders: No - Psychiatric Hx Psychophysiologic Disorder: Yes Hx Anxiety: Yes Hx Substance Use: No - Surgical History Hx Coronary Stent: Yes - Anesthesia Hx Anesthesia Reactions: No Hx Malignant Hyperthermia: No Family/Social History Family/Social History: No Known Family HX Smoking Status: Former Smoker Hx Alcohol Use: No Hx Substance Use: No Allergies/Home Meds Allergies/Adverse Reactions: Allergies Beef Containing Products Allergy (Severe, Verified 01/12/18 14:55) ANAPHYLAXIS tounge swelling, beef derived (bovine) Allergy (Severe, Verified 01/12/18 14:55) ANAPHYLAXIS tounge swelling banana Allergy (Intermediate, Verified 01/12/18 14:55) ITCHING velcro Allergy (Uncoded 01/12/18 14:55) ITCHING Home Medications: Home Meds Medication Instructions Recorded Confirmed Pantoprazole [Protonix EC Tab] 40 mg PO DAILY 07/21/17 01/12/18 Ascorbic Acid [Vitamin C 500 mg 1,000 mg PO BID 11/20/17 01/12/18 Tab] Cholecalciferol (Vitamin D3) 2,000 unit PO DAILY 11/20/17 01/12/18 [Vitamin D3] Cyanocobalamin [Vitamin B12 1000 1,000 mcg PO DAILY 11/20/17 01/12/18 mcg Tab] Nadolol [Corgard] 10 mg PO DAILY 11/20/17 01/12/18 Ondansetron [Zofran Tab] 4 mg PO Q8 PRN 11/20/17 01/12/18 Lactose-Reduced Food [Boost] 237 ml PO TID 01/12/18 01/12/18 Review of Systems - Physician Review All systems were reviewed & negative as marked: Yes - Review of Systems Constitutional: absent: Fevers Respiratory: absent: SOB Physical Exam - Physical Exam Narrative Physical Exam (Text): Gen: Appears weak Head: Atraumatic Eyes: PERRL ENT: Dry MM Neck: Supple Chest: No tenderness CV: Regular rate Lungs: CTA b/l Abd: Soft, NT Back: No midline tenderness Extremities: FROM x 4 Skin: No rash Neuro: AAOx2 (year). No focal deficit Vital Signs Temp Pulse Resp BP Pulse Ox 01/25/18 08:00 20 98 01/25/18 07:57 97.7 F 59 L 19 129/72 100 Medical Decision Making ED Course and Treatment: EKG 49 bpm, sinus rhythm, no ST/T wave changes. CXR IMPRESSION: No active disease. Patient with acute on chronic renal failure, will require admission. Dr. Dailey accepts to hospitalist service. - Lab Interpretations Lab Results: 01/25/18 08:30 01/25/18 08:30 Lab Results 01/25/18 08:30: Ammonia 34 H 01/25/18 08:30: PT 14.3 H, INR 1.24 H, APTT 35.8 01/25/18 08:30: Sodium 138, Potassium 4.2, Chloride 96 L, Carbon Dioxide 26, Anion Gap 21 H, BUN 67 H, Creatinine 2.6 H, Est GFR ( Amer) 30, Est GFR ( Non-Af Amer) 25, Random Glucose 130 H, Calcium 10.9 H, Total Bilirubin 3.4 H, AST 75 H, ALT 35, Alkaline Phosphatase 333 H, Total Creatine Kinase 26 L, Total Protein 10.6 H, Albumin 4.2, Globulin 6.4, Albumin/Globulin Ratio 0.7 L, Lipase 144 01/25/18 08:30: WBC 6.3 D, RBC 2.85 L, Hgb 9.5 L, Hct 28.2 L, MCV 98.9, MCH 33.3, MCHC 33.7, RDW 20.8 H, Plt Count 124, MPV 10.5, Gran % 71.1 H, Lymph % ( Auto) 19.1 L, [place] % (Auto) 8.7 H, Eos % (Auto) 0.8 L, Baso % (Auto) 0.3, Gran # 4.49, Lymph # (Auto) 1.2, [place] # (Auto) 0.6, Eos # (Auto) 0.1, Baso # (Auto) 0.02 - RAD Interpretation Radiology Orders: 01/25/18 08:28 CHEST PORTABLE [RAD] Stat - Medication Orders Current Medication Orders: Discontinued Medications Sodium Chloride (Sodium Chloride 0.9%) 1,000 mls @ 999 mls/hr IV .Q1H1M STA Stop: 01/25/18 09:28 Last Admin: 01/25/18 08:52 Dose: 999 mls/hr eMAR Start Stop Document 01/25/18 08:52 ODALIS (Rec: 01/25/18 08:53 ODALIS [email or web address]) Intravenous Solution Start Date 01/25/18 Start Time 08:52 End Date 01/25/18 End time 09:52 Total Infusion Time 60 Morphine Sulfate (Morphine) 2 mg IVP STAT STA Stop: 01/25/18 08:29 Last Admin: 01/25/18 08:53 Dose: 2 mg MAR Pain Assessment Document 01/25/18 08:53 ODALIS (Rec: 01/25/18 08:53 ODALIS ARORA) Pain Reassessment Is this a pain reassessment? No Sleep Is patient sleeping during reassessment? No Presence of Pain Presence of Pain Yes Pain Scale Used Pain Scale Used Numeric Description Description Intermittent Intensity of Pain at present 4 IVP Administration Document 01/25/18 08:53 ODALIS (Rec: 01/25/18 08:53 ODALIS ARORA) Charges for Administration # of IVP Administrations 1 Ondansetron HCl (Zofran Inj) 8 mg IVP STAT STA Stop: 01/25/18 08:29 Last Admin: 01/25/18 08:54 Dose: 8 mg IVP Administration Document 01/25/18 08:54 ODALIS (Rec: 01/25/18 08:54 ODALIS [id number]) Charges for Administration # of IVP Administrations 1 Disposition/Present on Arrival - Present on Arrival Any Indicators Present on Arrival: No History of DVT/PE: No History of Uncontrolled Diabetes: No Urinary Catheter: No History of Decub. Ulcer: No History Surgical Site Infection Following: None - Disposition Have Diagnosis and Disposition been Completed?: Yes Diagnosis: Acute renal failure, Confusion Disposition: HOSPITALIZED Disposition Time: 09:09 Patient Plan: Admission Condition: FAIR Referrals: Surinder Bishop MD [Primary Care Provider] - Follow up with primary Forms: [employer] ([place])
[2018-01-25] MEDS ORDERED: Morphine 2 mg/ml ISec IVP STA (08:28)
[2018-01-25] MEDS ORDERED: Sodium Chloride 0.9% 1,000 ML IV STA (08:28)
--- NOTE | 2018-01-25 08:55 | RAD ---
HISTORY: Generalized weakness COMPARISON: 01/12/2018 FINDINGS: LUNGS: Interval improvement in infiltrates seen previously particularly right lower lobe. PLEURA: No appreciable pleural effusion. CARDIOVASCULAR: No radiographic findings to suggest acute or significant cardiovascular disease. OSSEOUS STRUCTURES: No significant abnormalities. VISUALIZED UPPER ABDOMEN: Normal. OTHER FINDINGS: None. IMPRESSION: No active disease.
[2018-01-25 09:00] LABS: BASO # 0.02 K/mm3 (0.0-2.0); BASO % 0.3 % (0.0-3.0); EOS # 0.1 (0.0-0.7); EOS % 0.8 % (1.5-5.0); GRAN # 4.49 (1.4-6.5); GRAN % 71.1 % (50.0-68.0); HEMOGLOBIN 9.5 g/dL (14.0-18.0); LYMPH # 1.2 (1.2-3.4); LYMPH % 19.1 % (22.0-35.0); MEAN CELL VOLUME 98.9 fl (80.0-105.0); MEAN CORPUSCULAR HEMOGLOBIN 33.3 pg (25.0-35.0); MEAN CORPUSCULAR HGB CONC 33.7 g/dl (31.0-37.0); MEAN PLATELET VOLUME 10.5 fl (7.0-11.0); MONO # 0.6 (0.1-0.6); MONO % 8.7 % (1.0-6.0); RBC 2.85 10^6/uL (3.5-6.1); RED CELL DISTRIBUTION WIDTH 20.8 % (11.5-14.5); WHITE BLOOD COUNT 6.3 10^3/ul (4.5-11.0)
[2018-01-25 09:07] LABS: ALB/GLOB RATIO 0.7 (1.1-1.8); ALBUMIN 4.2 g/dL (3.0-4.8); CALCIUM 10.9 mg/dL (8.4-10.5)
[2018-01-25 09:28] LABS: INR 1.24 (0.93-1.08); PARTIAL THROMBOPLASTIN TIME 35.8 Seconds (25.1-36.5); PROTHROMBIN TIME 14.3 SECONDS (9.4-12.5)
--- NOTE | 2018-01-25 10:42 | CP.PCM.HP ---
Addendum entered and electronically signed by Kaitlyn Jose DO 01/26/18 12:16 : Pt has CAD s/p 1 stent - not on ASA, plavix due to high risk of GI bleed - Hx esophageal varices with upper GI bleed, s/p banding 2016 Original Note: <Kaitlyn Jose - Last Filed: 01/25/18 12:02> History of Present Illness - History of Present Illness History of Present Illness: IM H&P for Hospitalist Service CC: Acute on chronic renal failure Mr Lane, 62 yo M with PMH of HTN, diastolic CHF, Afib s/p cardioconversio, CKD 3B, Non-alcoholic liver cirrhosis (Hx decompensation) who presents to [facility] with complaint of confusion x 2 days and general weakness x 3 weeks. He thought a picture was upside down and he thought the refrigerator door was open. He reports feeling dehydrated. He also complains of back pain bilaterally. Pt will have an appointment at [facility] next Tuesday. He had not followed up with [employer] (Dr De Oliveira) yet. Pt skipped Rifaximin after last hospital discharge in Dec. Monthly cost of rifaximin is $2500. He is in the process of getting fianacial assistance with the pharmaceutical company ROS Denies wt loss. Urination amount stable. Drink 4 bottles of water a day. No recent sickness (+) chills, (+) confusion (+) Nausea requiring zofran twice weekly, chronic. (+) Abdominal pain, lower abdomen, chronic Denies CP, SOB, N/D/C Denies dysuria, hematuria, numbness, motor weakness. (+) back pain, chronic In ED, VSS CMP sig BUN 67/Cre 2.6 (baseline 1.9) TB elevated at 3.4, AST 75. normal ALT, alk phos 333. Ammonia 34. EKG 49 bpm, sinus rhythm, no ST/T wave changes. CXR: No active disease. 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 unclear etiology, complicated by Hx hepatic encephalopathy, Ascites requiring paracentesis, esophageal varices with upper GI bleed, s/p banding GERD Surgical History: Inguinal hernia repair Family History: Mother - [place], heart disease; Father - [place] Social History: Former smoker (1+ ppd for > 30 yrs, quit 1.5 years ago), denies EtOH/illicits/IVDA Allergy: Beef, bovine derivative, banana, velcro Med: Midodrine 10 TID, Nadolol 10, Lasix 20, Spironolactone 50, Lactulose 20 BID, Rifaximin 550 BID, alprazolem 0.5 PRN Zofran, Protonix, D3, B12, C PMD: Dr Bishop Dynamotor Repairer: Dr Angeles [employer] Up Operator: Dr. De Oliveira GI: Dr. Paieg Present on Admission - Present on Admission Any Indicators Present on Admission: No Past Patient History - Infectious Disease Hx of Infectious Diseases: None - Tetanus Immunizations Tetanus Immunization: Unknown - Past Medical History & Family History Past Medical History?: Yes - Past Social History Smoking Status: Former Smoker - CARDIAC Hx Cardiac Disorders: Yes Hx Congestive Heart Failure: Yes Hx Hypertension: Yes - PULMONARY Hx Respiratory Disorders: Yes Hx Pneumonia: Yes (09/06) - NEUROLOGICAL Hx Neurological Disorder: No - HEENT Hx HEENT Problems: No - RENAL Hx Renal Failure: Yes - ENDOCRINE/METABOLIC Hx Endocrine Disorders: No - HEMATOLOGICAL/ONCOLOGICAL Hx Blood Disorders: Yes Hx Cirrhosis: Yes (PARACENTESIS) - INTEGUMENTARY Hx Dermatological Problems: No - MUSCULOSKELETAL/RHEUMATOLOGICAL Hx Musculoskeletal Disorders: Yes Hx Back Pain: Yes Hx Falls: Yes Hx Unsteady Gait: Yes - GASTROINTESTINAL Hx Gastrointestinal Disorders: Yes (UPPER GI BLEED) Hx Gastroesophageal Reflux: Yes - GENITOURINARY/GYNECOLOGICAL Hx Genitourinary Disorders: No - PSYCHIATRIC Hx Psychophysiologic Disorder: Yes Hx Anxiety: Yes Hx Substance Use: No - SURGICAL HISTORY Hx Coronary Stent: Yes - ANESTHESIA Hx Anesthesia Reactions: No Hx Malignant Hyperthermia: No Meds Allergies/Adverse Reactions: Allergies Allergy/AdvReac Type Severity Reaction Status Date / Time Beef Containing Products Allergy Severe ANAPHYLAXIS Verified 01/25/18 11:46 beef derived (bovine) Allergy Severe ANAPHYLAXIS Verified 01/25/18 11:46 banana Allergy Intermediate ITCHING Verified 01/25/18 11:46 velcro Allergy ITCHING Uncoded 03/07/18 11:46 Physical Exam - Constitutional Appears: Non-toxic - Head Exam Head Exam: ATRAUMATIC, NORMAL INSPECTION, NORMOCEPHALIC - Eye Exam Eye Exam: EOMI, Normal appearance, PERRL, Scleral icterus (mild) Pupil Exam: NORMAL ACCOMODATION - ENT Exam ENT Exam: Mucous Membranes Moist - Neck Exam Additional comments: supple - Respiratory Exam Respiratory Exam: Clear to Auscultation Bilateral, NORMAL BREATHING PATTERN. absent: Rales, Rhonchi, Wheezes - Cardiovascular Exam Cardiovascular Exam: REGULAR RHYTHM, +S1, +S2 - GI/Abdominal Exam GI & Abdominal Exam: Normal Bowel Sounds, Soft, Tenderness (LLQ only upon palpation). absent: Distended, Rigid - Extremities Exam Extremities exam: Positive for: normal capillary refill, pedal pulses present. Negative for: calf tenderness, pedal edema - Neurological Exam Neurological exam: Alert, CN II-XII Intact, Oriented x3 Additional comments: Motor and sensory grossly intact - Psychiatric Exam Psychiatric exam: Normal Affect, Normal Mood - Skin Skin Exam: Dry Results - Vital Signs Recent Vital Signs: Last Vital Signs Temp 97.7 F 01/25/18 07:57 Pulse 59 L 01/25/18 07:57 Resp 20 01/25/18 08:00 BP 129/72 01/25/18 07:57 Pulse Ox 98 01/25/18 08:00 - Labs Result Diagrams: 01/25/18 08:30 01/25/18 08:30 Assessment & Plan - Assessment and Plan (Free Text) Plan: Mr Lane, 62 yo M with PMH of HTN, CAD s/p 1 stent, diastolic CHF, Afib s/p cardioconversio, CKD 3B, Non-alcoholic liver cirrhosis (Hx decompensation) who presents to [facility] with complaint of confusion x 2 days and general weakness x 3 weeks. He has hx of non-alcoholic liver cirrhosis of unclear etiology, complicated by Hx hepatic encephalopathy, Ascites requiring paracentesis, esophageal varices with upper GI bleed, s/p banding 2016. 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 Pt skipped Rifaximin after last hospital discharge in Dec. Monthly cost of rifaximin is $2500. He is in the process of getting fianacial assistance with the [employer]. Admission lab is significant for CMP sig BUN 67/Cre 2.6 (baseline 1.9), TB elevated at 3.4, AST 75. normal ALT, alk phos 333. Ammonia 34. KEYUR on CKD stage 3B Hypovolemia with Cl 96 - urine lyets (FeNa), U urea, U eosinophil - Urine protein, microalbumin, - hold diuretics - Albumin supplement CKD, concerning for HRS type 2 - PTH normal (Dec 2017) - On home vit D3, B12, C Transaminitis - Abd U/S HTN - On midodrine - Hold home lasix, spironolactone Cirrhosis,compensated vs decompensated - Back on home protonix, nadolol, lactulose, rifaximin - zofran PRN Anemia due to chronic disease/CKD - Fe Study (Dec Iron 50, nl, %Sat 15) - replenish Fe PRN Question: Pt states that he takes alprazolam 0.5 mg? Check pharmacy. Called at 12noon. no one answer Fluid: None Diet: Renal, non-dialysis, decaff, heart health + Lactose-reduce boost Consult:GI = Dr Paige, Nephro = Dr De Oliveira Prophylaxis = home protonix, SCD (Hx GI bleed on nadolol) S/R/D/w Dr. Rosales <Felicita Rosales - Last Filed: 01/26/18 15:23> Results - Vital Signs Recent Vital Signs: Last Vital Signs Temp 98.4 F 01/26/18 07:30 Pulse 53 L 01/26/18 07:30 Resp 20 01/26/18 07:30 BP 96/52 L 01/26/18 07:30 Pulse Ox 99 01/26/18 07:30 - Labs Result Diagrams: 01/26/18 06:45 01/26/18 06:45 Labs: Laboratory Results - last 24 hr 01/25/18 01/25/18 01/25/18 11:30 11:30 14:00 WBC RBC Hgb Hct MCV MCH MCHC RDW Plt Count MPV Gran % Lymph % (Auto) [place] % (Auto) Eos % (Auto) Baso % (Auto) Gran # Lymph # (Auto) [place] # (Auto) Eos # (Auto) Baso # (Auto) Sodium Potassium Chloride Carbon Dioxide Anion Gap BUN Creatinine Est GFR ( Amer) Est GFR (Non-Af Amer) Random Glucose Calcium Total Bilirubin AST ALT Alkaline Phosphatase Total Protein Albumin Globulin Albumin/Globulin Ratio Urine Eosinophils Ur Random Creatinine 25 U Random Total Protein 13 Cancelled Ur Random Sodium 104 Ur Random Potassium Ur Random Urea Nitrogn Urine Microalbumin 9.9 Urine Opiates Screen Positive H Urine Methadone Screen Negative Ur Barbiturates Screen Negative Ur Phencyclidine Scrn Negative Ur Amphetamines Screen Negative U Benzodiazepines Scrn Negative U Oth Cocaine Metabols Negative U Cannabinoids Screen Negative 01/25/18 01/25/18 01/25/18 14:00 14:00 14:00 WBC RBC Hgb Hct MCV MCH MCHC RDW Plt Count MPV Gran % Lymph % (Auto) [place] % (Auto) Eos % (Auto) Baso % (Auto) Gran # Lymph # (Auto) [place] # (Auto) Eos # (Auto) Baso # (Auto) Sodium Potassium Chloride Carbon Dioxide Anion Gap BUN Creatinine Est GFR ( Amer) Est GFR (Non-Af Amer) Random Glucose Calcium Total Bilirubin AST ALT Alkaline Phosphatase Total Protein Albumin Globulin Albumin/Globulin Ratio Urine Eosinophils Negative Ur Random Creatinine U Random Total Protein Ur Random Sodium 99 Ur Random Potassium 18.4 Ur Random Urea Nitrogn 379 Urine Microalbumin Urine Opiates Screen Urine Methadone Screen Ur Barbiturates Screen Ur Phencyclidine Scrn Ur Amphetamines Screen U Benzodiazepines Scrn U Oth Cocaine Metabols U Cannabinoids Screen 01/26/18 01/26/18 06:45 06:45 WBC 4.8 D RBC 2.57 L Hgb 8.5 L Hct 25.6 L MCV 99.6 MCH 33.1 MCHC 33.2 RDW 21.1 H Plt Count 92 L MPV 10.0 Gran % 54.7 Lymph % (Auto) 24.6 [place] % (Auto) 17.4 H Eos % (Auto) 2.5 Baso % (Auto) 0.8 Gran # 2.65 Lymph # (Auto) 1.2 [place] # (Auto) 0.8 H Eos # (Auto) 0.1 Baso # (Auto) 0.04 Sodium 140 Potassium 4.6 Chloride 103 Carbon Dioxide 24 Anion Gap 18 BUN 63 H Creatinine 2.5 H Est GFR ( Amer) 32 Est GFR (Non-Af Amer) 26 Random Glucose 76 Calcium 9.9 Total Bilirubin 2.8 H AST 46 ALT 30 Alkaline Phosphatase 257 H D Total Protein 8.7 H Albumin 3.8 Globulin 4.9 Albumin/Globulin Ratio 0.8 L Urine Eosinophils Ur Random Creatinine U Random Total Protein Ur Random Sodium Ur Random Potassium Ur Random Urea Nitrogn Urine Microalbumin Urine Opiates Screen Urine Methadone Screen Ur Barbiturates Screen Ur Phencyclidine Scrn Ur Amphetamines Screen U Benzodiazepines Scrn U Oth Cocaine Metabols U Cannabinoids Screen Attending/Attestation - Attestation I have personally seen and examined this patient.: Yes I have fully participated in the care of the patient.: Yes I have reviewed all pertinent clinical information: Yes Notes (Text): 01/26/18 15:17 Attending note; Patient seen and examined with resident in ER. Patient is a 62 -year-old malewith PMH ofCAD s/p 1 stent, diastolic CHF, Afib s/ p cardioconversion, anemia, GI bleed ,esophageal varices ,acute on chronic kidney disease and Non-alcoholic liver cirrhosis who presents to [facility] [facility] with complaint of confusion x 2 days and general weakness x 3 weeks. Patient was found to be dehydrated with elevated creatinine. Acute on chronic kidney disease; most likely secondary to prerenal. Lasix and Aldactone stopped. Started on IV fluids. Continue midodrine. Rule out hepatorenal syndrome. Nephrology evaluation requested. cryptogenic cirrhosis; GI evaluation requested. Patient with a history of GI bleed in the past with banding. Currently no active bleeding. Stable hemoglobin. Tolerating diet. Continue on atenolol. Hepatic encephalopathy; continue lactulose and rifaximin. Patient has appointment with [facility] next week. Prognosis is poor.
[2018-01-25 10:43] LABS: URINE APPEARANCE CLEAR (CLEAR); URINE BILIRUBIN NEGATIVE (NEGATIVE); URINE BLOOD NEGATIVE (NEGATIVE); URINE COLOR YELLOW (YELLOW); URINE GLUCOSE (UA) NEGATIVE (NEGATIVE); URINE LEUKOCYTE ESTERASE TRACE Leu/uL (NEGATIVE); URINE PROTEIN NEGATIVE mg/dL (<30 mg/dL)
[2018-01-25 10:58] LABS: URINE BACTERIA NEG (NEG); URINE EPITHELIAL CELLS 0 - 2 /hpf (0-5); URINE RBC 0 - 2 /hpf (0-2); URINE WBC 0 - 2 /hpf (0-6)
[2018-01-25] MEDS: Albumin Human 25% (12.5 gm/50 ml) IV SCH ×3 (12:04→21:25)
--- NOTE | 2018-01-25 13:22 | US ---
HISTORY: transaminiits COMPARISON: Abdominal ultrasound performed 12/07/17 TECHNIQUE: Sonographic evaluation of the abdomen. FINDINGS: LIVER: Measures 13.8 cm in sagittal dimension. Echogenic liver may be seen in setting of hepatic parenchymal disease or fatty infiltration. Nodular hepatic contour. No focal hepatic mass identified. The main portal vein appears patent with normal directional flow. No intrahepatic bile duct dilatation. GALLBLADDER: No gallstones. Gallbladder wall thickening measuring approximately 6 mm in diameter. Negative sonographic Ochoa's sign as assessed by the applications processor. COMMON BILE DUCT: Measures 7 mm. PANCREAS: Not well visualized. RIGHT KIDNEY: Measures 11.1 x 4.5 x 4.6cm. No obstructing calculus or hydronephrosis identified. LEFT KIDNEY: Measures 11.0 x 5.5 x 4.3cm. No obstructing calculus or hydronephrosis identified. SPLEEN: Measures approximately 12.6 cm. AORTA: Not well-visualized. IVC: Not well-visualized. OTHER FINDINGS: Incidental note is made of right-sided pleural effusion. Abdominal ascites IMPRESSION: Echogenic liver may be seen in setting of hepatic parenchymal disease or fatty infiltration. Nodular hepatic contour; correlate clinically for cirrhosis. Abdominal ascites. Gallbladder wall thickening. Negative sonographic Ochoa's sign. No evidence of gallstones. Correlate clinically. Borderline splenomegaly.
[2018-01-25] MEDS ORDERED: LACTOSE REDUCED FOOD PO SCH (14:00)
[2018-01-25 15:24] LABS: BENZODIAZEPINES, UR NEGATIVE (NEGATIVE)
[2018-01-25 15:35] LABS: BARBITURATES, UR NEGATIVE (NEGATIVE); CREATININE,RANDOM URINE 25 mg/dL; OPIATES, UR POSITIVE (NEGATIVE); PHENCYCLIDINE, UR NEGATIVE (NEGATIVE)
[2018-01-25] MEDS ORDERED: Pneumococcal 23-Valent Vaccine IM ONE (15:54)
[2018-01-25] MEDS ORDERED: Influenza Vaccine 60 mcg/0.5 mL SYR (4YR UP) IM ONE (15:54)
[2018-01-25 16:07] LABS: TOTAL PROTEIN,RANDOM URINE 13 mg/L
--- NOTE | 2018-01-25 17:10 | CARD ---
APPROVED REPORT EKG Measurement Heart [id number] <Conclusion> Marked sinus bradycardia Abnormal ECG
[2018-01-25] MEDS: Sodium Chloride 0.9% 1,000 ML IV SCH (17:43)
--- NOTE | 2018-01-25 19:00 | CP.PCM.CON ---
<Kalani Gonzalez - Last Filed: 01/25/18 19:05> History of Present Illness - History of Present Illness History of Present Illness: GI Fellow PGY4 Consult Note This is a 63 M with past medical history of decompensated cirrhosis, complicated by esophageal varices with prior hemorrhage s/p EVL 4 months ago, ascites with no hx of SBP, hepatic encephalopathy currently on lactulose and Rifaximin , CAD s/p stent, Afib s/p cardioversion, HTN, GERD, CHF, presents with confusion. Pt states that he started getting confused yesterday and was seeing odd things so decided to come to ER. Pt reports he has been taking his lactulose with 2-3BM daily. He denies any abdominal pain or distention at this time. Pt is on his lasixs at home. Pt has an appointment at [facility] for liver transplant evaluation February 01, 2018. Pt's labs are slightly worse from 12/2017 including Cr. At the tie of evaluation pt reports feeling less confused and is AAOx3. ROS: 12 Point ROS performed and negative other than stated above. PMH: As stated in HPI SH: Inguinal hernia repair Social History: Denies alcohol, drug used; Former smoker, quit 1.5 years ago Family History: Mother with DM, heart disease; Father with MA Endo Hx: EGD on 10/06/17 - esophageal varices and s/p EVL Past Patient History - Infectious Disease Hx of Infectious Diseases: None - Tetanus Immunizations Tetanus Immunization: Unknown - Past Medical History & Family History Past Medical History?: Yes - Past Social History Smoking Status: Former Smoker - CARDIAC Hx Cardiac Disorders: Yes Hx Congestive Heart Failure: Yes Hx Hypertension: Yes - PULMONARY Hx Respiratory Disorders: Yes Hx Pneumonia: Yes (09/06) - NEUROLOGICAL Hx Neurological Disorder: No - HEENT Hx HEENT Problems: No - RENAL Hx Renal Failure: Yes - ENDOCRINE/METABOLIC Hx Endocrine Disorders: No - HEMATOLOGICAL/ONCOLOGICAL Hx Blood Disorders: Yes Hx Cirrhosis: Yes (PARACENTESIS) - INTEGUMENTARY Hx Dermatological Problems: No - MUSCULOSKELETAL/RHEUMATOLOGICAL Hx Musculoskeletal Disorders: Yes Hx Back Pain: Yes Hx Falls: Yes Hx Unsteady Gait: Yes - GASTROINTESTINAL Hx Gastrointestinal Disorders: Yes (UPPER GI BLEED) Hx Gastroesophageal Reflux: Yes - GENITOURINARY/GYNECOLOGICAL Hx Genitourinary Disorders: No - PSYCHIATRIC Hx Psychophysiologic Disorder: Yes Hx Anxiety: Yes Hx Substance Use: No - SURGICAL HISTORY Hx Surgeries: Yes (STENT X1) Hx Coronary Stent: Yes - ANESTHESIA Hx Anesthesia Reactions: No Hx Malignant Hyperthermia: No Meds Allergies/Adverse Reactions: Allergies Allergy/AdvReac Type Severity Reaction Status Date / Time Beef Containing Products Allergy Severe ANAPHYLAXIS Verified 01/25/18 11:46 beef derived (bovine) Allergy Severe ANAPHYLAXIS Verified 01/25/18 11:46 banana Allergy Intermediate ITCHING Verified 01/25/18 11:46 velcro Allergy ITCHING Uncoded 01/25/18 11:46 - Medications Medications: Current Medications Acetaminophen (Tylenol 325mg Tab) 650 mg PO Q6H PRN PRN Reason: Fever >100.4 F Albumin Human (Albumin Human 25% (12.5 Gm/50 Ml)) 12.5 gm IV Q5H [facility] Stop: 01/27/18 07:46 Last Admin: 01/25/18 16:44 Dose: 12.5 gm Ascorbic Acid (Vitamin C 500 Mg Tab) 1,000 mg PO BID [facility] Last Admin: 01/25/18 17:35 Dose: 1,000 mg Cyanocobalamin (Vitamin B12 1000 Mcg Tab) 1,000 mcg PO DAILY [facility] Sodium Chloride (Sodium Chloride 0.9%) 1,000 mls @ 60 mls/hr IV .[id number] [facility] Last Admin: 01/25/18 17:43 Dose: 60 mls/hr Iron Sucrose 100 mg/ Sodium (Chloride) 105 mls @ 210 mls/hr IVPB DAILY [facility] Stop: 02/03/18 10:29 Last Admin: 01/25/18 17:43 Dose: 210 mls/hr Lactulose (Enulose) 20 gm PO BID [facility] Last Admin: 01/25/18 18:29 Dose: Not Given Midodrine (Proamatine) 10 mg PO TID [facility] Last Admin: 01/25/18 18:27 Dose: 10 mg Nadolol (Corgard) 10 mg PO DAILY [facility] Last Admin: 01/25/18 12:30 Dose: Not Given Ondansetron HCl (Zofran Inj) 4 mg IVP Q6 PRN PRN Reason: Nausea/Vomiting Pantoprazole Sodium (Protonix Ec Tab) 40 mg PO 0600 [facility] Rifaximin (Xifaxan) 550 mg PO BID [facility] PRN Reason: Protocol Last Admin: 01/25/18 17:35 Dose: 550 mg Physical Exam - Constitutional Appears: Non-toxic, No Acute Distress, Cachectic - Head Exam Head Exam: ATRAUMATIC, NORMAL INSPECTION, NORMOCEPHALIC - Eye Exam Eye Exam: EOMI, PERRL Pupil Exam: PERRL - ENT Exam ENT Exam: Mucous Membranes Moist, Normal Exam - Neck Exam Neck exam: Positive for: Full Rom - Respiratory Exam Respiratory Exam: Clear to Auscultation Bilateral, NORMAL BREATHING PATTERN - Cardiovascular Exam Cardiovascular Exam: REGULAR RHYTHM, RRR, +S1, +S2 - GI/Abdominal Exam GI & Abdominal Exam: Distended, Normal Bowel Sounds, Soft. absent: Tenderness - Extremities Exam Extremities exam: Positive for: full ROM - Neurological Exam Neurological exam: Alert, Oriented x3 - Psychiatric Exam Psychiatric exam: Normal Affect, Normal Mood - Skin Skin Exam: Dry, Intact, Normal Color, Warm Results - Vital Signs Recent Vital Signs: Last Vital Signs Temp 97.7 F 01/25/18 15:23 Pulse 53 L 01/25/18 15:23 Resp 20 01/25/18 15:23 BP 108/66 01/25/18 15:23 Pulse Ox 100 01/25/18 13:04 - Labs Result Diagrams: 01/25/18 08:30 01/25/18 08:30 Labs: Laboratory Results - last 24 hr 01/25/18 01/25/18 01/25/18 10:00 11:30 11:30 Urine Color Yellow Urine Appearance Clear Urine pH 6.0 Ur Specific [place] 1.010 Urine Protein Negative Urine Glucose (UA) Negative Urine Ketones Negative Urine Blood Negative Urine Nitrate Negative Urine Bilirubin Negative Urine Urobilinogen 1.0 H Ur Leukocyte Esterase Trace H Urine RBC 0 - 2 Urine WBC 0 - 2 Ur Epithelial Cells 0 - 2 Urine Bacteria Neg Urine Eosinophils Ur Random Creatinine U Random Total Protein 13 Ur Random Sodium 104 Ur Random Potassium Ur Random Urea Nitrogn Urine Microalbumin 9.9 Urine Opiates Screen Urine Methadone Screen Ur Barbiturates Screen Ur Phencyclidine Scrn Ur Amphetamines Screen U Benzodiazepines Scrn U Oth Cocaine Metabols U Cannabinoids Screen 01/25/18 01/25/18 01/25/18 14:00 14:00 14:00 Urine Color Urine Appearance Urine pH Ur Specific [place] Urine Protein Urine Glucose (UA) Urine Ketones Urine Blood Urine Nitrate Urine Bilirubin Urine Urobilinogen Ur Leukocyte Esterase Urine RBC Urine WBC Ur Epithelial Cells Urine Bacteria Urine Eosinophils Ur Random Creatinine 25 U Random Total Protein Cancelled Ur Random Sodium 99 Ur Random Potassium 18.4 Ur Random Urea Nitrogn 379 Urine Microalbumin Urine Opiates Screen Positive H Urine Methadone Screen Negative Ur Barbiturates Screen Negative Ur Phencyclidine Scrn Negative Ur Amphetamines Screen Negative U Benzodiazepines Scrn Negative U Oth Cocaine Metabols Negative U Cannabinoids Screen Negative 01/25/18 14:00 Urine Color Urine Appearance Urine pH Ur Specific [place] Urine Protein Urine Glucose (UA) Urine Ketones Urine Blood Urine Nitrate Urine Bilirubin Urine Urobilinogen Ur Leukocyte Esterase Urine RBC Urine WBC Ur Epithelial Cells Urine Bacteria Urine Eosinophils Negative Ur Random Creatinine U Random Total Protein Ur Random Sodium Ur Random Potassium Ur Random Urea Nitrogn Urine Microalbumin Urine Opiates Screen Urine Methadone Screen Ur Barbiturates Screen Ur Phencyclidine Scrn Ur Amphetamines Screen U Benzodiazepines Scrn U Oth Cocaine Metabols U Cannabinoids Screen Assessment & Plan - Assessment and Plan (Free Text) Assessment: This is a 63yM presenting with confusion. 1. HE 2. Decompensated Cirrhosis, MELD 13 3. Ascites 4. [id number] vs HRS Plan: -Continue supportive care -Continue lactulose and rifaxamin for HE, 2-3BM daily -KEYUR maybe pre-renal vs HRS, recommend fluid and albumin challenge, nephro cs -Hold diuretics -Monitor for possible paracentesis -Pt has appointment at [facility] February 01 which he should follow up -No plan for EGD, H/H stable -Will follow closely <Megha Hodgson - Last Filed: 01/25/18 19:28> Meds - Medications Medications: Current Medications Acetaminophen (Tylenol 325mg Tab) 650 mg PO Q6H PRN PRN Reason: Fever >100.4 F Albumin Human (Albumin Human 25% (12.5 Gm/50 Ml)) 12.5 gm IV Q5H [facility] Stop: 01/27/18 07:46 Last Admin: 01/25/18 16:44 Dose: 12.5 gm Ascorbic Acid (Vitamin C 500 Mg Tab) 1,000 mg PO BID [facility] Last Admin: 01/25/18 17:35 Dose: 1,000 mg Cyanocobalamin (Vitamin B12 1000 Mcg Tab) 1,000 mcg PO DAILY [facility] Sodium Chloride (Sodium Chloride 0.9%) 1,000 mls @ 60 mls/hr IV .[id number] [facility] Last Admin: 01/25/18 17:43 Dose: 60 mls/hr Iron Sucrose 100 mg/ Sodium (Chloride) 105 mls @ 210 mls/hr IVPB DAILY [facility] Stop: 02/03/18 10:29 Last Admin: 01/25/18 17:43 Dose: 210 mls/hr Lactulose (Enulose) 20 gm PO BID [facility] Last Admin: 01/25/18 18:29 Dose: Not Given Midodrine (Proamatine) 10 mg PO TID [facility] Last Admin: 01/25/18 18:27 Dose: 10 mg Nadolol (Corgard) 10 mg PO DAILY [facility] Last Admin: 01/25/18 12:30 Dose: Not Given Ondansetron HCl (Zofran Inj) 4 mg IVP Q6 PRN PRN Reason: Nausea/Vomiting Pantoprazole Sodium (Protonix Ec Tab) 40 mg PO 0600 [facility] Rifaximin (Xifaxan) 550 mg PO BID [facility] PRN Reason: Protocol Last Admin: 01/25/18 17:35 Dose: 550 mg Results - Vital Signs Recent Vital Signs: Last Vital Signs Temp 97.7 F 01/25/18 15:23 Pulse 53 L 01/25/18 15:23 Resp 20 01/25/18 15:23 BP 108/66 01/25/18 15:23 Pulse Ox 100 01/25/18 13:04 - Labs Result Diagrams: 01/25/18 08:30 01/25/18 08:30 Labs: Laboratory Results - last 24 hr 01/25/18 01/25/18 01/25/18 10:00 11:30 11:30 Urine Color Yellow Urine Appearance Clear Urine pH 6.0 Ur Specific [place] 1.010 Urine Protein Negative Urine Glucose (UA) Negative Urine Ketones Negative Urine Blood Negative Urine Nitrate Negative Urine Bilirubin Negative Urine Urobilinogen 1.0 H Ur Leukocyte Esterase Trace H Urine RBC 0 - 2 Urine WBC 0 - 2 Ur Epithelial Cells 0 - 2 Urine Bacteria Neg Urine Eosinophils Ur Random Creatinine U Random Total Protein 13 Ur Random Sodium 104 Ur Random Potassium Ur Random Urea Nitrogn Urine Microalbumin 9.9 Urine Opiates Screen Urine Methadone Screen Ur Barbiturates Screen Ur Phencyclidine Scrn Ur Amphetamines Screen U Benzodiazepines Scrn U Oth Cocaine Metabols U Cannabinoids Screen 01/25/18 01/25/18 01/25/18 14:00 14:00 14:00 Urine Color Urine Appearance Urine pH Ur Specific [place] Urine Protein Urine Glucose (UA) Urine Ketones Urine Blood Urine Nitrate Urine Bilirubin Urine Urobilinogen Ur Leukocyte Esterase Urine RBC Urine WBC Ur Epithelial Cells Urine Bacteria Urine Eosinophils Ur Random Creatinine 25 U Random Total Protein Cancelled Ur Random Sodium 99 Ur Random Potassium 18.4 Ur Random Urea Nitrogn 379 Urine Microalbumin Urine Opiates Screen Positive H Urine Methadone Screen Negative Ur Barbiturates Screen Negative Ur Phencyclidine Scrn Negative Ur Amphetamines Screen Negative U Benzodiazepines Scrn Negative U Oth Cocaine Metabols Negative U Cannabinoids Screen Negative 01/25/18 14:00 Urine Color Urine Appearance Urine pH Ur Specific [place] Urine Protein Urine Glucose (UA) Urine Ketones Urine Blood Urine Nitrate Urine Bilirubin Urine Urobilinogen Ur Leukocyte Esterase Urine RBC Urine WBC Ur Epithelial Cells Urine Bacteria Urine Eosinophils Negative Ur Random Creatinine U Random Total Protein Ur Random Sodium Ur Random Potassium Ur Random Urea Nitrogn Urine Microalbumin Urine Opiates Screen Urine Methadone Screen Ur Barbiturates Screen Ur Phencyclidine Scrn Ur Amphetamines Screen U Benzodiazepines Scrn U Oth Cocaine Metabols U Cannabinoids Screen Attending/Attestation - Attestation I have personally seen and examined this patient.: Yes I have fully participated in the care of the patient.: Yes I have reviewed all pertinent clinical information: Yes Notes (Text): 01/25/18 19:25 Patient seen with GI fellow earlier today. This is a 62 year male with h/o CAD s /p stent, CHF, Afib, HTN, Cirrhosis c/b esophageal varices s/p banding, HE, and ascites, now with renal failure admitted with worsening renal function in setting of diuretics. He is AAA X 3. He has transplant evaluation at [facility] in 2 weeks. Will give albumin for 3 days and hold diuretics. Fluid challenge of 250 cc to be given. Continue lactulose to 2 BM/day. Renal sonogram to rule out kidney pathology. Send urine lytes. Low sodium diet as tolerated. Strict I/O. Will follow
[2018-01-25] MEDS ORDERED: Morphine 2 mg/ml ISec IVP ONE (19:13)
--- NOTE | 2018-01-25 20:48 | CON ---
DATE: NEPHROLOGY CONSULTATION HISTORY OF PRESENT ILLNESS: Patient is a 63-year-old male with past medical history of hypertension, liver cirrhosis of unclear etiology with ascites and esophageal varices, GERD, CHF with preserved EF, AFib, status post cardioversion and CKD, presented to ED this morning with complaint of confusion times past 2 days; patient found to be in acute renal failure for which Nephrology is being consulted. Patient was recently [place] [facility] [place] similar presentation and also having acute renal failure at that time; patient was started on IV albumin with slight improvement in renal function. Patient was discharged approximately 11 days ago; he reports that he had been eating well up until yesterday when he started having dry heaves and also vomited two times; otherwise, patient has been feeling weak with minimal ambulation, restricted only to his home; he denies any fevers or chills. Denies any shortness of breath; denies any diarrhea; patient reports that he weighs himself daily and has been having stable weight of approximately 140 to 141 pounds. Patient also has been adherent to all of his medications including diuretics; he has not, however, been able to get rifaximin due to financial reasons. PAST MEDICAL HISTORY: As above. SOCIAL HISTORY: Denies smoking or drinking alcohol. FAMILY HISTORY: Mother with diabetes; father with heart disease. REVIEW OF SYSTEMS: CONSTITUTIONAL: Denies any fevers or chills. HEENT: Denies any upper respiratory-type symptoms. RESPIRATORY: Denies any cough or difficulty breathing. CARDIOVASCULAR: Denies any shortness of breath or dyspnea on exertion. GASTROINTESTINAL: As per HPI. GENITOURINARY: Denies any change in urination. No dysuria. MUSCULOSKELETAL: Reporting back pain, particularly on left lower side. NEUROLOGIC: Denies any numbness in his feet. Denies any dizziness. PSYCHIATRIC: Denies any depression, has been having difficulty with sleep lately. PHYSICAL EXAMINATION: VITAL SIGNS: This afternoon, blood pressure 108/66, heart rate 53, respirations 20, temperature 97.7, O2 sat 98% on room air. GENERAL: No distress. Lying comfortably in bed, conversing coherently in full sentences. HEENT: Moist mucous membranes. Nonicteric. No cervical lymphadenopathy, has wasting of facial muscles. RESPIRATORY: Lungs clear to auscultation bilaterally. No rales, no rhonchi. No wheezes. CARDIOVASCULAR: Heart sounds S1, S2 normal. No murmurs or gallops. No rubs. GASTROINTESTINAL: Abdomen is very slightly distended, otherwise nontender. GENITOURINARY: No obvious bladder distention. EXTREMITIES: No leg edema. SKIN: Warm. No cyanosis. NEUROLOGIC: Mild weakness on left. PSYCHIATRIC: Normal mood, normal affect. LABORATORY DATA: This morning, CBC: WBC 6.3, hemoglobin 9.5, hematocrit 28.2, platelets 124. Chemistry panel: Sodium 138, potassium 4.2, chloride 96, bicarb 26, BUN 67, creatinine 2.6, glucose 130, calcium 10.9. T bili 3.4, AST 75, ALT 35, albumin 4.2. Iron studies recently, iron 50, TIBC 331, percent saturation 15%, ferritin 42.3, 25-hydroxy vitamin D level 83.5. PTH 14. Urine studies from today, urine sodium 99, urine creatinine 25. Chest x-ray clear. No evidence of increased vascular congestion. ASSESSMENT AND PLAN: 1. Acute renal failure, significant increase in serum creatinine from 1.6 on discharge to 2.6 today; baseline serum creatinine is about 1.1; concern for an insidious onset of hepatorenal syndrome; urine studies at this point are inconclusive; no overt evidence of volume depletion as patient reports that his weights have been stable. We will attempt intravascular volume expansion with IV albumin 4.5 g q. 5 hours with goal of giving 1 gm/kg daily. We will check repeat urine sodium tomorrow; hold diuretics for now. 2. Chronic kidney disease, progressive renal insufficiency concerning for hepatorenal syndrome type 2; patient is already on vasoconstrictor therapy with midodrine; should continue the same for now. 3. Hypercalcemia. Previous labs showed parathyroid hormone level was suppressed appropriately and 25-hydroxy vitamin D levels was at higher end of normal; should ensure patient is not taking vitamin D supplementation. 4. Portal hypertension with history of esophageal varices. Patient currently on nadolol 10 mg daily. Continue the same for now. 5. Anemia secondary to chronic disease, also an element of iron deficiency; we will give intravenous iron infusions daily while here. 6. Hepatic encephalopathy. Currently, does not appear confused, is on lactulose 20 g b.i.d., should titrate to achieve two to three stools per day and avoid excessive stool output as this will worsen any volume depletion; continue with rifaximin. Thank you for this referral. We will be following up closely. Wood De Oliveira MD
[2018-01-26] MEDS: Albumin Human 25% (12.5 gm/50 ml) IV SCH ×5 (02:16→21:36)
[2018-01-26] MEDS: Pantoprazole 40 mg EC Tab PO SCH (06:42)
[2018-01-26 07:29] LABS: BASO # 0.04 K/mm3 (0.0-2.0); BASO % 0.8 % (0.0-3.0); EOS # 0.1 (0.0-0.7); EOS % 2.5 % (1.5-5.0); GRAN # 2.65 (1.4-6.5); GRAN % 54.7 % (50.0-68.0); HEMOGLOBIN 8.5 g/dL (14.0-18.0); LYMPH # 1.2 (1.2-3.4); LYMPH % 24.6 % (22.0-35.0); MEAN CELL VOLUME 99.6 fl (80.0-105.0); MEAN CORPUSCULAR HEMOGLOBIN 33.1 pg (25.0-35.0); MEAN CORPUSCULAR HGB CONC 33.2 g/dl (31.0-37.0); MONO # 0.8 (0.1-0.6); MONO % 17.4 % (1.0-6.0); RBC 2.57 10^6/uL (3.5-6.1); RED CELL DISTRIBUTION WIDTH 21.1 % (11.5-14.5); WHITE BLOOD COUNT 4.8 10^3/ul (4.5-11.0)
--- NOTE | 2018-01-26 07:42 | CP.PCM.PN ---
<Kalani Gonzalez - Last Filed: 01/26/18 08:35> Subjective - Date & Time of Evaluation Date of Evaluation: 01/26/18 Time of Evaluation: 06:55 - Subjective Subjective: GI Fellow PGY4 Progress Note Pt seen and evaluated at bedside, pt doing well but was unable to sleep all night. Pt denies any BM since admission and on record reviewed refused his lactulose last night-discussed with pt about taking his medications. Also, pt was not taking his rifaxamin as an outpt due to cost issues. Pt is not confused AAOx3, no asterxis on exam. ROS: A 12pt ROS was negative except as above. Objective - Vital Signs/Intake and Output Vital Signs (last 24 hours): Temp Pulse Resp BP Pulse Ox 97.7 F 53 L 20 108/66 100 01/25/18 15:23 01/25/18 15:23 01/25/18 15:23 01/25/18 15:23 01/25/18 13:04 Intake and Output: 01/26/18 01/26/18 06:59 18:59 Intake Total 840 Output Total 150 Balance 690 - Medications Medications: Current Medications Acetaminophen (Tylenol 325mg Tab) 650 mg PO Q6H PRN PRN Reason: Fever >100.4 F Albumin Human (Albumin Human 25% (12.5 Gm/50 Ml)) 12.5 gm IV Q5H REPLACED BY [facility] Stop: 01/27/18 07:46 Last Admin: 01/26/18 06:38 Dose: 12.5 gm Ascorbic Acid (Vitamin C 500 Mg Tab) 1,000 mg PO BID REPLACED BY [facility] Last Admin: 01/25/18 17:35 Dose: 1,000 mg Cyanocobalamin (Vitamin B12 1000 Mcg Tab) 1,000 mcg PO DAILY REPLACED BY [facility] Sodium Chloride (Sodium Chloride 0.9%) 1,000 mls @ 60 mls/hr IV .[id number] REPLACED BY [facility] Last Admin: 01/25/18 17:43 Dose: 60 mls/hr Iron Sucrose 100 mg/ Sodium (Chloride) 105 mls @ 210 mls/hr IVPB DAILY REPLACED BY [facility] Stop: 02/03/18 10:29 Last Admin: 01/25/18 17:43 Dose: 210 mls/hr Lactulose (Enulose) 20 gm PO BID REPLACED BY [facility] Last Admin: 01/25/18 18:29 Dose: Not Given Midodrine (Proamatine) 10 mg PO TID REPLACED BY [facility] Last Admin: 01/25/18 18:27 Dose: 10 mg Nadolol (Corgard) 10 mg PO DAILY REPLACED BY [facility] Last Admin: 01/25/18 12:30 Dose: Not Given Ondansetron HCl (Zofran Inj) 4 mg IVP Q6 PRN PRN Reason: Nausea/Vomiting Pantoprazole Sodium (Protonix Ec Tab) 40 mg PO 0600 REPLACED BY [facility] Last Admin: 01/26/18 06:42 Dose: 40 mg Rifaximin (Xifaxan) 550 mg PO BID REPLACED BY [facility] PRN Reason: Protocol Last Admin: 01/25/18 17:35 Dose: 550 mg - Labs Labs: PT 14.3 SECONDS (9.4-12.5) H 01/25/18 08:30 INR 1.24 (0.93-1.08) H 01/25/18 08:30 APTT 35.8 Seconds (25.1-36.5) 01/25/18 08:30 - Constitutional Appears: Non-toxic, No Acute Distress, Older Than Stated Age, Cachectic - Head Exam Head Exam: ATRAUMATIC, NORMAL INSPECTION, NORMOCEPHALIC - Eye Exam Eye Exam: EOMI, Normal appearance, PERRL - ENT Exam ENT Exam: Mucous Membranes Moist, Normal Exam - Neck Exam Neck Exam: Full ROM, Normal Inspection - Respiratory Exam Respiratory Exam: Clear to Ausculation Bilateral, NORMAL BREATHING PATTERN - Cardiovascular Exam Cardiovascular Exam: REGULAR RHYTHM, RRR, +S1, +S2 - GI/Abdominal Exam GI & Abdominal Exam: Soft, Tenderness, Normal Bowel Sounds. absent: Distended, Firm, Guarding, Rigid - Extremities Exam Extremities Exam: Full ROM, Normal Inspection - Back Exam Back Exam: NORMAL INSPECTION - Neurological Exam Neurological Exam: Alert, Awake, Oriented x3 - Psychiatric Exam Psychiatric exam: Normal Affect, Normal Mood - Skin Skin Exam: Dry, Intact, Normal Color, Warm Assessment and Plan - Assessment and Plan (Free Text) Assessment: This is a 63yM presenting with confusion. 1. Decompensated Cirrhosis, MELD 22 on admission 2. HE stage 1 3. Ascites 4. [id number] vs HRS 5. Hx of varices s/p EVL Plan: -Continue supportive care -Continue lactulose and rifaxamin for HE, 2-3BM daily -KEYUR maybe pre-renal vs HRS, recommend fluid challenge and albumin, nephrology recommendations appreciated -Hold diuretics -Monitor renal function, urine electrolytes -Low salt diet -Monitor for possible paracentesis, at this time mild ascites, no abdominal distention or pain -No plan for EGD, H/H stable -EGD 09/2017 for variceal bleed and EVL -Continue nadolol -Abd US 02/05 negative for liver lesion -Pt has appointment at [facility] February 01 which he should follow up -Will follow closely <Pedro Paige - Last Filed: 01/26/18 08:38> Objective - Vital Signs/Intake and Output Vital Signs (last 24 hours): Temp Pulse Resp BP Pulse Ox 98.4 F 53 L 20 96/52 L 99 01/26/18 07:30 01/26/18 07:30 01/26/18 07:30 01/26/18 07:30 01/26/18 07:30 Intake and Output: 01/26/18 01/26/18 06:59 18:59 Intake Total 840 Output Total 150 Balance 690 - Medications Medications: Current Medications Acetaminophen (Tylenol 325mg Tab) 650 mg PO Q6H PRN PRN Reason: Fever >100.4 F Albumin Human (Albumin Human 25% (12.5 Gm/50 Ml)) 12.5 gm IV Q5H REPLACED BY [facility] Stop: 01/27/18 07:46 Last Admin: 01/26/18 06:38 Dose: 12.5 gm Ascorbic Acid (Vitamin C 500 Mg Tab) 1,000 mg PO BID REPLACED BY [facility] Last Admin: 01/25/18 17:35 Dose: 1,000 mg Cyanocobalamin (Vitamin B12 1000 Mcg Tab) 1,000 mcg PO DAILY REPLACED BY [facility] Sodium Chloride (Sodium Chloride 0.9%) 1,000 mls @ 60 mls/hr IV .[id number] REPLACED BY [facility] Last Admin: 01/25/18 17:43 Dose: 60 mls/hr Iron Sucrose 100 mg/ Sodium (Chloride) 105 mls @ 210 mls/hr IVPB DAILY REPLACED BY [facility] Stop: 02/03/18 10:29 Last Admin: 01/25/18 17:43 Dose: 210 mls/hr Lactulose (Enulose) 20 gm PO BID REPLACED BY [facility] Last Admin: 01/25/18 18:29 Dose: Not Given Midodrine (Proamatine) 10 mg PO TID REPLACED BY [facility] Last Admin: 01/25/18 18:27 Dose: 10 mg Nadolol (Corgard) 10 mg PO DAILY REPLACED BY [facility] Last Admin: 01/25/18 12:30 Dose: Not Given Ondansetron HCl (Zofran Inj) 4 mg IVP Q6 PRN PRN Reason: Nausea/Vomiting Pantoprazole Sodium (Protonix Ec Tab) 40 mg PO 0600 REPLACED BY [facility] Last Admin: 01/26/18 06:42 Dose: 40 mg Rifaximin (Xifaxan) 550 mg PO BID [facility] PRN Reason: Protocol Last Admin: 01/25/18 17:35 Dose: 550 mg - Labs Labs: 01/26/18 06:45 01/26/18 06:45 PT 14.3 SECONDS (9.4-12.5) H 01/25/18 08:30 INR 1.24 (0.93-1.08) H 01/25/18 08:30 APTT 35.8 Seconds (25.1-36.5) 01/25/18 08:30 Attending/Attestation - Attestation I have personally seen and examined this patient.: Yes I have fully participated in the care of the patient.: Yes I have reviewed all pertinent clinical information, including history, physical exam and plan: Yes Notes (Text): 01/26/18 08:37 63 year old male with Cirrhosis c/b ascites, HE, varices admitted with HE. Recommend lactulose/rifaxamin. He also has mild renal insufficiency. Hold diuretics. Give IV albumin and midodrine per renal. Monitor daily bun/cr and I/ O. He is scheduled for outpatient transplant eval at [facility].
[2018-01-26 07:52] LABS: ALB/GLOB RATIO 0.8 (1.1-1.8); ALBUMIN 3.8 g/dL (3.0-4.8); CALCIUM 9.9 mg/dL (8.4-10.5)
[2018-01-26] MEDS ORDERED: Cholecalciferol 1,000 INTLU TAB PO SCH (10:00)
[2018-01-26] MEDS ORDERED: Non Formulary Medication (Cholecalciferol (Vitamin D3) [Vitamin D3] 2,000 UNIT) PO SCH (10:00)
[2018-01-26] MEDS: Sodium Chloride 0.9% 1,000 ML IV SCH (14:35)
[2018-01-26 16:47] LABS: CREATININE,RANDOM URINE 55 mg/dL
[2018-01-26] MEDS: oxyCODONE 5 mg Immediate Release Tab PO PRN (21:01)
--- NOTE | 2018-01-26 22:56 | CP.PCM.PN ---
Subjective - Date & Time of Evaluation Date of Evaluation: 01/26/18 Time of Evaluation: 11:30 - Subjective Subjective: Reportedly urinating well; feels less lethargic; tolerating diet; Objective - Vital Signs/Intake and Output Vital Signs (last 24 hours): Temp Pulse Resp BP Pulse Ox 98.6 F 55 L 18 112/59 L 100 01/26/18 14:00 01/26/18 14:00 01/26/18 14:00 01/26/18 14:00 01/26/18 14:00 Intake and Output: 01/26/18 01/27/18 18:59 06:59 Intake Total 2272 Output Total 140 Balance 2132 - Medications Medications: Current Medications Albumin Human (Albumin Human 25% (12.5 Gm/50 Ml)) 12.5 gm IV Q5H [facility] Stop: 01/27/18 07:46 Last Admin: 01/26/18 21:36 Dose: 12.5 gm Ascorbic Acid (Vitamin C 500 Mg Tab) 1,000 mg PO BID [facility] Last Admin: 01/26/18 17:00 Dose: 1,000 mg Cyanocobalamin (Vitamin B12 1000 Mcg Tab) 1,000 mcg PO DAILY [facility] Last Admin: 01/26/18 09:41 Dose: 1,000 mcg Sodium Chloride (Sodium Chloride 0.9%) 1,000 mls @ 60 mls/hr IV .[id number] [facility] Last Admin: 01/26/18 14:35 Dose: 60 mls/hr Iron Sucrose 100 mg/ Sodium (Chloride) 105 mls @ 210 mls/hr IVPB DAILY [facility] Stop: 02/03/18 10:29 Last Admin: 01/26/18 09:44 Dose: 210 mls/hr Lactulose (Enulose) 20 gm PO TID [facility] Last Admin: 01/26/18 16:59 Dose: 20 gm Midodrine (Proamatine) 10 mg PO TID [facility] Last Admin: 01/26/18 16:59 Dose: 10 mg Nadolol (Corgard) 10 mg PO DAILY [facility] Last Admin: 01/26/18 09:43 Dose: Not Given Ondansetron HCl (Zofran Inj) 4 mg IVP Q6 PRN PRN Reason: Nausea/Vomiting Oxycodone HCl (Oxycodone Immediate Release Tab) 5 mg PO Q8H PRN PRN Reason: Pain, severe (8-10) Last Admin: 01/26/18 21:01 Dose: 5 mg Pantoprazole Sodium (Protonix Ec Tab) 40 mg PO 0600 [facility] Last Admin: 01/26/18 06:42 Dose: 40 mg Rifaximin (Xifaxan) 550 mg PO BID [facility] PRN Reason: Protocol Last Admin: 01/26/18 17:00 Dose: 550 mg - Labs Labs: 01/26/18 06:45 01/26/18 06:45 PT 14.3 SECONDS (9.4-12.5) H 01/25/18 08:30 INR 1.24 (0.93-1.08) H 01/25/18 08:30 APTT 35.8 Seconds (25.1-36.5) 01/25/18 08:30 - Constitutional Appears: Non-toxic, No Acute Distress, Cachectic - Eye Exam Eye Exam: absent: Scleral icterus - Respiratory Exam Respiratory Exam: absent: Rales, Respiratory Distress - Cardiovascular Exam Cardiovascular Exam: RRR, +S1, +S2 - GI/Abdominal Exam GI & Abdominal Exam: Soft. absent: Tenderness Additional comments: mildly distended - Extremities Exam Additional comments: no leg edema; - Neurological Exam Neurological Exam: Alert, Awake - Psychiatric Exam Psychiatric exam: Normal Mood. absent: Agitated - Skin Skin Exam: Warm. absent: Cyanosis Assessment and Plan (1) Acute renal failure Assessment & Plan: Etiology unclear; repeat urine lytes not consistent with pre-renal etiology; minimal improvement with intravascular volume expansion; continue IV albumin 25 % q5h and NS at 60 cc/hr for now; Status: Acute (2) Anemia Assessment & Plan: Hgb dropping with IVF/volume expansion; continue IV iron loading; will give dose of aranesp before d/c; Status: Chronic (3) Ascites Assessment & Plan: Not severe on exam; was on lasix 20 mg and aldactone 25 mg daily as outpatient, holding for now; will restart slowly as outpatient; Status: Chronic
[2018-01-27] MEDS: Albumin Human 25% (12.5 gm/50 ml) IV SCH ×2 (01:49→08:08)
[2018-01-27] MEDS: oxyCODONE 5 mg Immediate Release Tab PO PRN (01:50)
[2018-01-27 05:55] LABS: BASO # 0.04 K/mm3 (0.0-2.0); BASO % 0.9 % (0.0-3.0); EOS # 0.2 (0.0-0.7); GRAN # 2.32 (1.4-6.5); GRAN % 54.9 % (50.0-68.0); LYMPH # 1.1 (1.2-3.4); MEAN CELL VOLUME 100.8 fl (80.0-105.0); MEAN CORPUSCULAR HEMOGLOBIN 32.9 pg (25.0-35.0); MEAN CORPUSCULAR HGB CONC 32.7 g/dl (31.0-37.0); MEAN PLATELET VOLUME 9.4 fl (7.0-11.0); MONO # 0.6 (0.1-0.6); MONO % 13.2 % (1.0-6.0); RBC 2.43 10^6/uL (3.5-6.1); RED CELL DISTRIBUTION WIDTH 21.2 % (11.5-14.5); WHITE BLOOD COUNT 4.2 10^3/ul (4.5-11.0)
[2018-01-27 05:58] LABS: ALB/GLOB RATIO 0.8 (1.1-1.8); ALBUMIN 3.9 g/dL (3.0-4.8); CALCIUM 10.2 mg/dL (8.4-10.5)
[2018-01-27] MEDS: Pantoprazole 40 mg EC Tab PO SCH (06:02)
[2018-01-27 06:03] LABS: INR 1.45 (0.93-1.08); PROTHROMBIN TIME 16.8 SECONDS (9.4-12.5)
--- NOTE | 2018-01-27 07:45 | CP.PCM.PN ---
<Kalani Gonzalez - Last Filed: 01/27/18 08:58> Subjective - Date & Time of Evaluation Date of Evaluation: 01/27/18 Time of Evaluation: 07:05 - Subjective Subjective: GI Fellow PGY4 Progress Note Pt seen and evaluated at bedside, pt doing well but was unable to sleep all night due to back pain. Pt reports multiple BMs last night and today. Also, pt with noncompliance with lactulose at home and was not taking his rifaxamin as an outpt due to cost issues. Pt is not confused AAOx3, no asterxis on exam. ROS: A 12pt ROS was negative except as above. Objective - Vital Signs/Intake and Output Vital Signs (last 24 hours): Temp Pulse Resp BP Pulse Ox 98.5 F 60 20 105/57 L 100 01/26/18 22:00 01/26/18 22:00 01/26/18 22:00 01/26/18 22:00 01/26/18 22:00 Intake and Output: 01/27/18 01/27/18 06:59 18:59 Intake Total 1240 Output Total 600 Balance 640 - Medications Medications: Current Medications Albumin Human (Albumin Human 25% (12.5 Gm/50 Ml)) 12.5 gm IV Q5H [facility] Stop: 01/27/18 07:46 Last Admin: 01/27/18 01:49 Dose: 12.5 gm Ascorbic Acid (Vitamin C 500 Mg Tab) 1,000 mg PO BID [facility] Last Admin: 01/26/18 17:00 Dose: 1,000 mg Cyanocobalamin (Vitamin B12 1000 Mcg Tab) 1,000 mcg PO DAILY [facility] Last Admin: 01/26/18 09:41 Dose: 1,000 mcg Hydroxyzine HCl (Atarax) 10 mg PO HS [facility] Sodium Chloride (Sodium Chloride 0.9%) 1,000 mls @ 60 mls/hr IV .[id number] [facility] Last Admin: 01/26/18 14:35 Dose: 60 mls/hr Iron Sucrose 100 mg/ Sodium (Chloride) 105 mls @ 210 mls/hr IVPB DAILY [facility] Stop: 02/03/18 10:29 Last Admin: 01/26/18 09:44 Dose: 210 mls/hr Lactulose (Enulose) 20 gm PO BID [facility] Midodrine (Proamatine) 10 mg PO TID [facility] Last Admin: 01/26/18 16:59 Dose: 10 mg Nadolol (Corgard) 10 mg PO DAILY [facility] Last Admin: 01/26/18 09:43 Dose: Not Given Ondansetron HCl (Zofran Inj) 4 mg IVP Q6 PRN PRN Reason: Nausea/Vomiting Last Admin: 01/27/18 06:15 Dose: 4 mg Oxycodone HCl (Oxycodone Immediate Release Tab) 5 mg PO Q8H PRN PRN Reason: Pain, severe (8-10) Last Admin: 01/27/18 01:50 Dose: 5 mg Pantoprazole Sodium (Protonix Ec Tab) 40 mg PO 0600 [facility] Last Admin: 01/27/18 06:02 Dose: 40 mg Rifaximin (Xifaxan) 550 mg PO BID [facility] PRN Reason: Protocol Stop: 02/18/18 18:00 Last Admin: 01/26/18 17:00 Dose: 550 mg - Labs Labs: 01/27/18 05:30 01/27/18 05:30 PT 16.8 SECONDS (9.4-12.5) H 01/27/18 05:30 INR 1.45 (0.93-1.08) H 01/27/18 05:30 APTT 35.8 Seconds (25.1-36.5) 01/25/18 08:30 - Constitutional Appears: Non-toxic, No Acute Distress, Cachectic - Head Exam Head Exam: ATRAUMATIC, NORMAL INSPECTION, NORMOCEPHALIC - Eye Exam Eye Exam: EOMI, Normal appearance, PERRL - ENT Exam ENT Exam: Mucous Membranes Moist - Respiratory Exam Respiratory Exam: Clear to Ausculation Bilateral, NORMAL BREATHING PATTERN - Cardiovascular Exam Cardiovascular Exam: REGULAR RHYTHM - GI/Abdominal Exam GI & Abdominal Exam: Soft, Normal Bowel Sounds. absent: Distended, Firm, Guarding, Tenderness - Extremities Exam Extremities Exam: Full ROM, Normal Inspection - Neurological Exam Neurological Exam: Alert, Awake, Oriented x3 - Psychiatric Exam Psychiatric exam: Normal Affect, Normal Mood - Skin Skin Exam: Normal Color, Warm Assessment and Plan - Assessment and Plan (Free Text) Assessment: This is a 63yM presenting with confusion. 1. Decompensated Cirrhosis, MELD 22 on admission, MELD 21 today 2. HE stage 1 3. GID-blg-lupio vs HRS 4. Hx of varices s/p EVL 5. Hx of ascites, neg SBP Plan: -Continue supportive care, MELD 21 today -Continue lactulose and rifaxamin for HE, 2-3BM daily -KEYUR improving, continue albumin and midodrine per nephrology recommendations appreciated -Hold diuretics -Monitor renal function, urine electrolytes -Low salt diet -No ascites, abdominal distention or pain -No plan for EGD, H/H stable -EGD 09/2017 for variceal bleed and EVL -Continue nadolol -Abd US 02/05 negative for liver lesion -PTOT out of bed, ambulation encouraged -Pt has appointment at [facility] February 01 which he should follow up -Will follow closely <Delonte Garcia - Last Filed: 01/27/18 14:43> Objective - Vital Signs/Intake and Output Vital Signs (last 24 hours): Temp Pulse Resp BP Pulse Ox 98.7 F 58 L 20 106/59 L 99 01/27/18 07:30 01/27/18 07:30 01/27/18 07:30 01/27/18 07:30 01/27/18 07:30 Intake and Output: 01/27/18 01/27/18 06:59 18:59 Intake Total 1240 640 Output Total 600 600 Balance 640 40 - Medications Medications: Current Medications Ascorbic Acid (Vitamin C 500 Mg Tab) 1,000 mg PO BID [facility] Last Admin: 01/27/18 10:00 Dose: Not Given Cyanocobalamin (Vitamin B12 1000 Mcg Tab) 1,000 mcg PO DAILY [facility] Last Admin: 01/26/18 09:41 Dose: 1,000 mcg Hydroxyzine HCl (Atarax) 10 mg PO [facility] Iron Sucrose 100 mg/ Sodium (Chloride) 105 mls @ 210 mls/hr IVPB DAILY [facility] Stop: 02/03/18 10:29 Last Admin: 01/27/18 09:58 Dose: 210 mls/hr Lactulose (Enulose) 20 gm PO BID [facility] Last Admin: 01/27/18 09:58 Dose: Not Given Midodrine (Proamatine) 10 mg PO TID [facility] Last Admin: 01/27/18 14:39 Dose: Not Given Nadolol (Corgard) 10 mg PO DAILY [facility] Last Admin: 01/27/18 10:00 Dose: Not Given Ondansetron HCl (Zofran Inj) 4 mg IVP Q6 PRN PRN Reason: Nausea/Vomiting Last Admin: 01/27/18 06:15 Dose: 4 mg Oxycodone HCl (Oxycodone Immediate Release Tab) 5 mg PO Q8H PRN PRN Reason: Pain, severe (8-10) Last Admin: 01/27/18 01:50 Dose: 5 mg Pantoprazole Sodium (Protonix Ec Tab) 40 mg PO 0600 [facility] Last Admin: 01/27/18 06:02 Dose: 40 mg Rifaximin (Xifaxan) 550 mg PO BID [facility] PRN Reason: Protocol Stop: 02/18/18 18:00 Last Admin: 01/27/18 10:00 Dose: Not Given - Labs Labs: 01/27/18 05:30 01/27/18 05:30 PT 16.8 SECONDS (9.4-12.5) H 01/27/18 05:30 INR 1.45 (0.93-1.08) H 01/27/18 05:30 APTT 35.8 Seconds (25.1-36.5) 01/25/18 08:30 Attending/Attestation - Attestation I have personally seen and examined this patient.: Yes I have fully participated in the care of the patient.: Yes I have reviewed all pertinent clinical information, including history, physical exam and plan: Yes Notes (Text): 01/27/18 14:41 I have seen and examined patient with GI fellow. No acute events overnight, he is seen resting in bed comfortably. He denies abdominal pain, nausea, vomiting , fever/chills. He had 3 bowel movements overnight. Tolerating PO diet without difficulty. Decompensated cirrhosis Acute renal insufficiency Hepatic encephalopathy - Low sodium diet as tolerated - Creatinine improving, follow up renal recommendations, diuretics currently held - Continue with lactulose/xifaxan therapy for HE prevention - Continue with B-ameya for variceal prophylaxis - Following hospital discharge, patient has scheduled follow up at [facility] on . Will continue to monitor patient clinical course.
--- NOTE | 2018-01-27 14:29 | CP.PCM.PN ---
<Forrest Malloy - Last Filed: 01/27/18 15:42> Subjective - Date & Time of Evaluation Date of Evaluation: 01/26/18 Time of Evaluation: 07:20 - Subjective Subjective: 63 M63M, with past medical history of hypertension, Gastroesophageal reflux disease, cirrhosis, gastrointestinal bleed secondary to bleeding varices, diastolic heart failure, chronic kidney disease, presented to emergency [facility] complaints of 3 week history of weakness and 2 day history of confusion. The pt states that he experienced some visual hallucinations stating , the pictures in my house were upside down in their frames. He denies auditory hallucinations. He notes some ongoing constipation for 2 days and complains of back pain, which is a chronic problem for him. Back pain is localized over his upper back, and has gotten worse since he spent the night in the hospital. He denies focal numbness or weakness associated with this. He reports issues with sleep for 1 week and reports that he has had bad hallucinations with Ambien taken in the past for sleep. He denies any cough, dyspnea, chest pain, fever, chills. All:NKDA PMH: decompensated cryptococcal cirrhosis, ascites requiring paracentesis, upper GI bleed, varices s/p banding, HTN, dilated cardiomyopathy, CAD s/p stent placement, HTN PSH: varices s/p banding General: cachectic appearance. No acute distress HEENT: mmm. Trace scleral icterus. Lungs: course lung sounds at R bases. Clear lung sounds on L side. Back: no midline tenderness to palpation Cardio: rrr. No murmurs or rubs. Abdomen: abdominal striae present, abdomen mildly distended. No caput medusa. Normal active bowel sounds in all 4 quadrants. Fluid wave present. Liver palpable below costochondral angle. No tenderness to palpation. Neuro: AOx3. Pt answers questions appropriately. Extremities: No pitting edema bilaterally. 2+ DP pulses bilaterally. Skin: Trace jaundice. A/P: 63 yo man with past medical history of decompensated cryptococcal cirrhosis , (history of ascites requiring paracentesis, upper GI bleed, varices s/p banding),coronary artery disease s/p stent placement, dilated cardiomyopathy, and hypertension presents with acute kidney injury. 1. KEYUR on CKD stage 3B. - R/O Prerenal azotemia by assessing (1) FeNa, (2) FeUrea, (3) response after fluid and albumin challenge. - Isaura (admi) = 7,5 ? post-renal, but patient was on lasix - FeUrea (admi) = 58.8% possibly intrinsic renal disease - Pending new FeNa, hold Lasix for 24h - Pending improvement in kidney function continue IVF and albumin - R/O intrinsic azotemia - Acute interstitial nephritis excluded with normal urinalysis without eosinophils seen - ATN: ? - Nephrotic vs nephritic syndrome: urine protein in normal range - R/O postrenal azotemia: unlikely. Patient has normal urine output. - R/O hepatorenal syndrome: pending response to fluid and albumin. - Renal diet 5. Cirrhosis-decompensated: Child Sauceda Class B (mine-operative mortality 30%) - Lactulose and rifaximin for elevated ammonium. - continue to monitor stool output with lactulose regimen. Goal 2 bowel movements per day. - Avoid hepatotoxic agents such as Tylenol. - MELD score 23 points, 19.6% estimated 3 mo mortality - Nadolol 10 mg PO daily for esophageal varices 3. Hx of CAD s/p stent - Hold ASA and Plavix due to GI bleed. 4. Hypertension - Hold diuretics pending improvement in pts renal function. Continue to monitor blood pressure. 6. Anemia 2/2 chronic kidney disease - B12 and iron given 7. Back pain - Oxycodone prn 5mg tid given for pain relief - PT eval for back pain and deconditioning Objective - Vital Signs/Intake and Output Vital Signs (last 24 hours): Temp Pulse Resp BP Pulse Ox 98.7 F 58 L 20 106/59 L 99 01/27/18 07:30 01/27/18 07:30 01/27/18 07:30 01/27/18 07:30 01/27/18 07:30 Intake and Output: 01/27/18 01/27/18 06:59 18:59 Intake Total 1240 640 Output Total 600 600 Balance 640 40 - Medications Medications: Current Medications Ascorbic Acid (Vitamin C 500 Mg Tab) 1,000 mg PO BID [facility] Last Admin: 01/27/18 10:00 Dose: Not Given Cyanocobalamin (Vitamin B12 1000 Mcg Tab) 1,000 mcg PO DAILY [facility] Last Admin: 01/26/18 09:41 Dose: 1,000 mcg Hydroxyzine HCl (Atarax) 10 mg PO HS [facility] Iron Sucrose 100 mg/ Sodium (Chloride) 105 mls @ 210 mls/hr IVPB DAILY [facility] Stop: 02/03/18 10:29 Last Admin: 01/27/18 09:58 Dose: 210 mls/hr Lactulose (Enulose) 20 gm PO BID [facility] Last Admin: 01/27/18 09:58 Dose: Not Given Midodrine (Proamatine) 10 mg PO TID [facility] Last Admin: 01/27/18 10:00 Dose: Not Given Nadolol (Corgard) 10 mg PO DAILY [facility] Last Admin: 01/27/18 10:00 Dose: Not Given Ondansetron HCl (Zofran Inj) 4 mg IVP Q6 PRN PRN Reason: Nausea/Vomiting Last Admin: 01/27/18 06:15 Dose: 4 mg Oxycodone HCl (Oxycodone Immediate Release Tab) 5 mg PO Q8H PRN PRN Reason: Pain, severe (8-10) Last Admin: 01/27/18 01:50 Dose: 5 mg Pantoprazole Sodium (Protonix Ec Tab) 40 mg PO 0600 [facility] Last Admin: 01/27/18 06:02 Dose: 40 mg Rifaximin (Xifaxan) 550 mg PO BID [facility] PRN Reason: Protocol Stop: 02/18/18 18:00 Last Admin: 01/27/18 10:00 Dose: Not Given - Labs Labs: 01/27/18 05:30 01/27/18 05:30 PT 16.8 SECONDS (9.4-12.5) H 01/27/18 05:30 INR 1.45 (0.93-1.08) H 01/27/18 05:30 APTT 35.8 Seconds (25.1-36.5) 01/25/18 08:30 <Rangasamy,Ajantha - Last Filed: 01/27/18 16:44> Objective - Vital Signs/Intake and Output Vital Signs (last 24 hours): Temp Pulse Resp BP Pulse Ox 98.7 F 58 L 20 106/59 L 99 01/27/18 07:30 01/27/18 07:30 01/27/18 07:30 01/27/18 07:30 01/27/18 07:30 Intake and Output: 01/27/18 01/27/18 06:59 18:59 Intake Total 1240 640 Output Total 600 600 Balance 640 40 - Medications Medications: Current Medications Ascorbic Acid (Vitamin C 500 Mg Tab) 1,000 mg PO BID [facility] Last Admin: 01/27/18 10:00 Dose: Not Given Cyanocobalamin (Vitamin B12 1000 Mcg Tab) 1,000 mcg PO DAILY [facility] Last Admin: 01/26/18 09:41 Dose: 1,000 mcg Finasteride (Proscar) 5 mg PO DAILY [facility] Hydroxyzine HCl (Atarax) 10 mg PO HS [facility] Iron Sucrose 100 mg/ Sodium (Chloride) 105 mls @ 210 mls/hr IVPB DAILY [facility] Stop: 02/03/18 10:29 Last Admin: 01/27/18 09:58 Dose: 210 mls/hr Lactulose (Enulose) 20 gm PO BID [facility] Last Admin: 01/27/18 09:58 Dose: Not Given Midodrine (Proamatine) 10 mg PO TID [facility] Last Admin: 01/27/18 14:39 Dose: Not Given Nadolol (Corgard) 10 mg PO DAILY [facility] Last Admin: 01/27/18 10:00 Dose: Not Given Ondansetron HCl (Zofran Inj) 4 mg IVP Q6 PRN PRN Reason: Nausea/Vomiting Last Admin: 01/27/18 06:15 Dose: 4 mg Oxycodone HCl (Oxycodone Immediate Release Tab) 5 mg PO Q8H PRN PRN Reason: Pain, severe (8-10) Last Admin: 01/27/18 01:50 Dose: 5 mg Pantoprazole Sodium (Protonix Ec Tab) 40 mg PO 0600 [facility] Last Admin: 01/27/18 06:02 Dose: 40 mg Rifaximin (Xifaxan) 550 mg PO BID [facility] PRN Reason: Protocol Stop: 02/18/18 18:00 Last Admin: 01/27/18 10:00 Dose: Not Given Tamsulosin HCl (Flomax) 0.4 mg PO DAILY [facility] - Labs Labs: 01/27/18 05:30 01/27/18 05:30 PT 16.8 SECONDS (9.4-12.5) H 01/27/18 05:30 INR 1.45 (0.93-1.08) H 01/27/18 05:30 APTT 35.8 Seconds (25.1-36.5) 01/25/18 08:30 Attending/Attestation - Attestation I have personally seen and examined this patient.: Yes I have fully participated in the care of the patient.: Yes I have reviewed all pertinent clinical information, including history, physical exam and plan: Yes Notes (Text): 01/27/18 16:43 Attending note; Patient seen and examined with resident. Patient is a 62 -year-old malewith PMH of CAD s/p stent, Afib s/p cardioconversion, anemia, GI bleed ,esophageal varices ,acute on chronic kidney disease and Non-alcoholic liver cirrhosis who [place] [facility] with complaint of confusion x 2 days and general weakness x 3 weeks. Patient was found to be dehydrated with elevated creatinine. Acute on chronic kidney disease; most likely secondary to prerenal. Lasix and Aldactone stopped. Started on IV fluids. Continue midodrine. Nephrology evaluation appreciated. Urine output is improving. cryptogenic cirrhosis; GI evaluation with Dr. Paige appreciated. Patient with a history of GI bleed in the past with banding. Currently no active bleeding. Stable hemoglobin. Tolerating diet. Continue on nadolol. Hepatic encephalopathy; continue lactulose and rifaximin. Patient has appointment with [facility] [place] next week. Upon discharge the patient will follow-up with PMD Dr. Bishop.
[2018-01-27] MEDS ORDERED: Darbepoetin Alfa 40 mcg/ml Inj SC ONE (15:13)
--- NOTE | 2018-01-27 16:40 | CP.PCM.PN ---
<Forrest Malloy - Last Filed: 01/27/18 16:40> Subjective - Date & Time of Evaluation Date of Evaluation: 01/27/18 Time of Evaluation: 08:00 - Subjective Subjective: No acute events overnight. Patient complains of new worsening nausea and lightheadedness, possibly related to missing his evening meal and exacerbated by his increased frequency bowel movements. He states that his bowel movements were very lose and there were too many to count. He denies abdominal pain, chest pain, shortness of breath. His back pain is improved from yesterday. He has been eating most of his Physical Exam General: cachectic appearance. No acute distress HEENT: mmm. Trace scleral icterus. Lungs: course lung sounds at R bases. Clear lung sounds on L side. Back: no midline tenderness to palpation Cardio: rrr. No murmurs or rubs. Abdomen: abdominal striae present, abdomen mildly distended. No caput medusa. Normal active bowel sounds in all 4 quadrants. Fluid wave present. Liver palpable below costochondral angle. No tenderness to palpation. Neuro: AOx3. Pt answers questions appropriately. Extremities: No pitting edema bilaterally. 2+ DP pulses bilaterally. Skin: Trace jaundice. Assessment and Plan 63 yo man with PMH decompensated cirrhosis with prior ascites requiring paracentesis, upper GI bleed, varices requiring banding, and hepatic encephalopathy; CAD s/p stenting, dilated cardiomyopathy and heart failure, and hypertension presents with acute kidney injury. acute kidney injury on chronic kidney disease stage 3B - R/O prerenal azotemia. FeNa 2.0% today, indicating intrinsic azotemia. FeUrea 60.2%, also indicating intrinsic azotemia. - Hepatorenal syndrome excluded. Pts kidney function improved today with IV fluids and albumin. Post-renal excluded, pt continues to produce appropriate amount of urine. - Continue fluids NS@80 and albumin - Cr trending down from 2.6 to 2.5 to 2.0 today. - Consult nephrology: recs appreciated Cirrhosis-decompensated: Child Sauceda Class B (mine-operative mortality 30%). MELD score 23 points (19.6% estimated 3 mo mortality) - Lactulose scaled down to twice daily dosing from 3. - Continue to monitor stool output with lactulose regimen. - Avoidance of hepatotoxic agents. - Nadolol 10 mg PO daily for esophageal varices. - Consult GI: recs appreciated History of coronary artery disease s/p stent placement - Restart ASA and plavix Hypertension - Hold lasix and aldactone, restart midodrine Anemia secondary to chronic kidney disease - Continue iron supplementation Back pain - Oxycodone prn 5 mg tid for pain relief. Insomnia - Hydroxyzine for insomnia. Objective - Vital Signs/Intake and Output Vital Signs (last 24 hours): Temp Pulse Resp BP Pulse Ox 98.7 F 58 L 20 106/59 L 99 01/27/18 07:30 01/27/18 07:30 01/27/18 07:30 01/27/18 07:30 01/27/18 07:30 Intake and Output: 01/27/18 01/27/18 06:59 18:59 Intake Total 1240 640 Output Total 600 600 Balance 640 40 - Medications Medications: Current Medications Ascorbic Acid (Vitamin C 500 Mg Tab) 1,000 mg PO BID [facility] Last Admin: 01/27/18 10:00 Dose: Not Given Cyanocobalamin (Vitamin B12 1000 Mcg Tab) 1,000 mcg PO DAILY [facility] Last Admin: 01/26/18 09:41 Dose: 1,000 mcg Finasteride (Proscar) 5 mg PO DAILY [facility] Hydroxyzine HCl (Atarax) 10 mg PO HS [facility] Iron Sucrose 100 mg/ Sodium (Chloride) 105 mls @ 210 mls/hr IVPB DAILY [facility] Stop: 02/03/18 10:29 Last Admin: 01/27/18 09:58 Dose: 210 mls/hr Lactulose (Enulose) 20 gm PO BID [facility] Last Admin: 01/27/18 09:58 Dose: Not Given Midodrine (Proamatine) 10 mg PO TID [facility] Last Admin: 01/27/18 14:39 Dose: Not Given Nadolol (Corgard) 10 mg PO DAILY [facility] Last Admin: 01/27/18 10:00 Dose: Not Given Ondansetron HCl (Zofran Inj) 4 mg IVP Q6 PRN PRN Reason: Nausea/Vomiting Last Admin: 01/27/18 06:15 Dose: 4 mg Oxycodone HCl (Oxycodone Immediate Release Tab) 5 mg PO Q8H PRN PRN Reason: Pain, severe (8-10) Last Admin: 01/27/18 01:50 Dose: 5 mg Pantoprazole Sodium (Protonix Ec Tab) 40 mg PO 0600 [facility] Last Admin: 01/27/18 06:02 Dose: 40 mg Rifaximin (Xifaxan) 550 mg PO BID [facility] PRN Reason: Protocol Stop: 02/18/18 18:00 Last Admin: 01/27/18 10:00 Dose: Not Given Tamsulosin HCl (Flomax) 0.4 mg PO DAILY [facility] - Labs Labs: 01/27/18 05:30 01/27/18 05:30 PT 16.8 SECONDS (9.4-12.5) H 01/27/18 05:30 INR 1.45 (0.93-1.08) H 01/27/18 05:30 APTT 35.8 Seconds (25.1-36.5) 01/25/18 08:30 <Felicita Rosales - Last Filed: 01/27/18 16:46> Objective - Vital Signs/Intake and Output Vital Signs (last 24 hours): Temp Pulse Resp BP Pulse Ox 98.7 F 58 L 20 106/59 L 99 01/27/18 07:30 01/27/18 07:30 01/27/18 07:30 01/27/18 07:30 01/27/18 07:30 Intake and Output: 01/27/18 01/27/18 06:59 18:59 Intake Total 1240 640 Output Total 600 600 Balance 640 40 - Medications Medications: Current Medications Ascorbic Acid (Vitamin C 500 Mg Tab) 1,000 mg PO BID [facility] Last Admin: 01/27/18 10:00 Dose: Not Given Cyanocobalamin (Vitamin B12 1000 Mcg Tab) 1,000 mcg PO DAILY [facility] Last Admin: 01/26/18 09:41 Dose: 1,000 mcg Finasteride (Proscar) 5 mg PO DAILY [facility] Hydroxyzine HCl (Atarax) 10 mg PO HS [facility] Iron Sucrose 100 mg/ Sodium (Chloride) 105 mls @ 210 mls/hr IVPB DAILY [facility] Stop: 02/03/18 10:29 Last Admin: 01/27/18 09:58 Dose: 210 mls/hr Lactulose (Enulose) 20 gm PO BID [facility] Last Admin: 01/27/18 09:58 Dose: Not Given Midodrine (Proamatine) 10 mg PO TID [facility] Last Admin: 01/27/18 14:39 Dose: Not Given Nadolol (Corgard) 10 mg PO DAILY [facility] Last Admin: 01/27/18 10:00 Dose: Not Given Ondansetron HCl (Zofran Inj) 4 mg IVP Q6 PRN PRN Reason: Nausea/Vomiting Last Admin: 01/27/18 06:15 Dose: 4 mg Oxycodone HCl (Oxycodone Immediate Release Tab) 5 mg PO Q8H PRN PRN Reason: Pain, severe (8-10) Last Admin: 01/27/18 01:50 Dose: 5 mg Pantoprazole Sodium (Protonix Ec Tab) 40 mg PO 0600 [facility] Last Admin: 01/27/18 06:02 Dose: 40 mg Rifaximin (Xifaxan) 550 mg PO BID [facility] PRN Reason: Protocol Stop: 02/18/18 18:00 Last Admin: 01/27/18 10:00 Dose: Not Given Tamsulosin HCl (Flomax) 0.4 mg PO DAILY [facility] - Labs Labs: 01/27/18 05:30 01/27/18 05:30 PT 16.8 SECONDS (9.4-12.5) H 01/27/18 05:30 INR 1.45 (0.93-1.08) H 01/27/18 05:30 APTT 35.8 Seconds (25.1-36.5) 01/25/18 08:30 Attending/Attestation - Attestation I have personally seen and examined this patient.: Yes I have fully participated in the care of the patient.: Yes I have reviewed all pertinent clinical information, including history, physical exam and plan: Yes Notes (Text): 01/27/18 16:44 Attending note; Patient seen and examined with resident. Patient is a 62 -year-old malewith PMH of CAD s/p stent, Afib s/p cardioconversion, anemia, GI bleed ,esophageal varices ,acute on chronic kidney disease and Non-alcoholic liver cirrhosis who presents to [facility] with complaint of confusion x 2 days and general weakness x 3 weeks. Patient was found to be dehydrated with elevated creatinine. Acute on chronic kidney disease; creatinine improved from 2.6-2.0 . most likely secondary to prerenal. Lasix and Aldactone stopped. Started on IV fluids. Continue midodrine. Nephrology evaluation appreciated. cryptogenic cirrhosis; GI evaluation with Dr. Paige appreciated. Patient with a history of GI bleed in the past with banding. Currently no active bleeding. Stable hemoglobin. Tolerating diet. Continue on nadolol. Hepatic encephalopathy; continue lactulose and rifaximin. rifaximin approved for next 3 months. Episode of nausea today. Monitor closely. Physical therapy evaluation requested. Case discussed with [employer] for discharge planning. Possible discharge home tomorrow. Patient has appointment with [facility] next week. Upon discharge the patient will follow-up with PMD Dr. Bishop. 01/27/18 16:46
--- NOTE | 2018-01-27 17:20 | CP.PCM.PN ---
Subjective - Date & Time of Evaluation Date of Evaluation: 01/27/18 Time of Evaluation: 11:00 - Subjective Subjective: Tolerating diet; no difficulty breathing; not ambulating much, reportedly feeling weak; Objective - Vital Signs/Intake and Output Vital Signs (last 24 hours): Temp Pulse Resp BP Pulse Ox 98.7 F 58 L 20 106/59 L 99 01/27/18 07:30 01/27/18 07:30 01/27/18 07:30 01/27/18 07:30 01/27/18 07:30 Intake and Output: 01/27/18 01/27/18 06:59 18:59 Intake Total 1240 640 Output Total 600 600 Balance 640 40 - Medications Medications: Current Medications Ascorbic Acid (Vitamin C 500 Mg Tab) 1,000 mg PO BID [facility] Last Admin: 01/27/18 10:00 Dose: Not Given Cyanocobalamin (Vitamin B12 1000 Mcg Tab) 1,000 mcg PO DAILY [facility] Last Admin: 01/26/18 09:41 Dose: 1,000 mcg Finasteride (Proscar) 5 mg PO DAILY [facility] Hydroxyzine HCl (Atarax) 10 mg PO [facility] Iron Sucrose 100 mg/ Sodium (Chloride) 105 mls @ 210 mls/hr IVPB DAILY [facility] Stop: 02/03/18 10:29 Last Admin: 01/27/18 09:58 Dose: 210 mls/hr Lactulose (Enulose) 20 gm PO BID [facility] Last Admin: 01/27/18 09:58 Dose: Not Given Midodrine (Proamatine) 10 mg PO TID [facility] Last Admin: 01/27/18 14:39 Dose: Not Given Nadolol (Corgard) 10 mg PO DAILY [facility] Last Admin: 01/27/18 10:00 Dose: Not Given Ondansetron HCl (Zofran Inj) 4 mg IVP Q6 PRN PRN Reason: Nausea/Vomiting Last Admin: 01/27/18 06:15 Dose: 4 mg Oxycodone HCl (Oxycodone Immediate Release Tab) 5 mg PO Q8H PRN PRN Reason: Pain, severe (8-10) Last Admin: 01/27/18 01:50 Dose: 5 mg Pantoprazole Sodium (Protonix Ec Tab) 40 mg PO 0600 [facility] Last Admin: 01/27/18 06:02 Dose: 40 mg Rifaximin (Xifaxan) 550 mg PO BID [facility] PRN Reason: Protocol Stop: 02/18/18 18:00 Last Admin: 01/27/18 10:00 Dose: Not Given Tamsulosin HCl (Flomax) 0.4 mg PO DAILY [facility] - Labs Labs: 01/27/18 05:30 01/27/18 05:30 PT 16.8 SECONDS (9.4-12.5) H 01/27/18 05:30 INR 1.45 (0.93-1.08) H 01/27/18 05:30 APTT 35.8 Seconds (25.1-36.5) 01/25/18 08:30 - Constitutional Appears: Non-toxic, No Acute Distress, Cachectic - Eye Exam Eye Exam: Normal appearance - ENT Exam ENT Exam: Mucous Membranes Moist - Respiratory Exam Respiratory Exam: absent: Respiratory Distress Additional comments: decreased sounds at R base; - Cardiovascular Exam Cardiovascular Exam: RRR, +S1, +S2 - GI/Abdominal Exam GI & Abdominal Exam: Soft. absent: Distended, Tenderness - Extremities Exam Additional comments: no leg edema; - Neurological Exam Neurological Exam: Alert, Awake - Psychiatric Exam Psychiatric exam: Normal Mood. absent: Agitated, Normal Affect - Skin Skin Exam: Warm. absent: Cyanosis Assessment and Plan (1) Acute renal failure Assessment & Plan: KEYUR on CKD; improving; pattern of improvement not consistent with pre-renal etiology; suspected ATN of unclear etiology; off IVF/IV albumin; monitor; Status: Acute (2) Anemia Assessment & Plan: Due to iron deficiency and CKD; on IV iron loading; giving dose of aranesp 40 mcg today, will f/u as outpatient; Status: Chronic (3) Ascites Assessment & Plan: Currently stable on exam; off diuretics, will restart as outpatient; Status: Chronic (4) Urinary retention Assessment & Plan: Somewhat increased post-void residual on recent bladder US (80 cc); may be contributing to CKD (IIIA); unclear prostate size; will start flomax/finasteride ; Status: Chronic
[2018-01-27 22:47] VITALS: RESP 18; O2SAT 99
[2018-01-28 04:11] LABS: BASO # 0.03 K/mm3 (0.0-2.0); BASO % 0.5 % (0.0-3.0); EOS # 0.2 (0.0-0.7); EOS % 3.4 % (1.5-5.0); GRAN # 3.73 (1.4-6.5); GRAN % 62.5 % (50.0-68.0); HEMOGLOBIN 8.8 g/dL (14.0-18.0); LYMPH # 1.1 (1.2-3.4); LYMPH % 18.4 % (22.0-35.0); MEAN CELL VOLUME 101.5 fl (80.0-105.0); MEAN CORPUSCULAR HEMOGLOBIN 32.5 pg (25.0-35.0); MEAN PLATELET VOLUME 9.4 fl (7.0-11.0); MONO # 0.9 (0.1-0.6); MONO % 15.2 % (1.0-6.0); RBC 2.71 10^6/uL (3.5-6.1); RED CELL DISTRIBUTION WIDTH 20.9 % (11.5-14.5)
[2018-01-28 04:15] LABS: INR 1.37 (0.93-1.08); PROTHROMBIN TIME 15.8 SECONDS (9.4-12.5)
[2018-01-28 04:25] LABS: ALB/GLOB RATIO 0.8 (1.1-1.8); ALBUMIN 3.9 g/dL (3.0-4.8); CALCIUM 10.6 mg/dL (8.4-10.5)
[2018-01-28] MEDS: Pantoprazole 40 mg EC Tab PO SCH (05:34)
--- NOTE | 2018-01-28 07:00 | CP.PCM.PN ---
Subjective - Date & Time of Evaluation Date of Evaluation: 01/28/18 Time of Evaluation: 08:00 - Subjective Subjective: GI Fellow PGY4 Progress Note Pt seen and evaluated at bedside, pt doing well with no complaints. Pt reports multiple BMs last night and today. Also, pt with noncompliance with lactulose at home and was not taking his rifaxamin as an outpt due to cost issues. Pt is not confused AAOx3. ROS: A 12pt ROS was negative except as above. Objective - Vital Signs/Intake and Output Vital Signs (last 24 hours): Temp Pulse Resp BP Pulse Ox 99 F 64 18 114/68 99 01/27/18 22:00 01/27/18 22:00 01/27/18 22:00 01/27/18 22:00 01/27/18 22:00 Intake and Output: 01/27/18 01/28/18 18:59 06:59 Intake Total 640 1010 Output Total 600 Balance 40 1010 - Medications Medications: Current Medications Ascorbic Acid (Vitamin C 500 Mg Tab) 1,000 mg PO BID [facility] Last Admin: 01/27/18 17:44 Dose: 1,000 mg Cyanocobalamin (Vitamin B12 1000 Mcg Tab) 1,000 mcg PO DAILY [facility] Last Admin: 01/27/18 17:45 Dose: 1,000 mcg Finasteride (Proscar) 5 mg PO DAILY [facility] Last Admin: 01/27/18 18:59 Dose: Not Given Hydroxyzine HCl (Atarax) 10 mg PO HS [facility] Last Admin: 01/27/18 22:18 Dose: 10 mg Iron Sucrose 100 mg/ Sodium (Chloride) 105 mls @ 210 mls/hr IVPB DAILY [facility] Stop: 02/03/18 10:29 Last Admin: 01/27/18 09:58 Dose: 210 mls/hr Lactulose (Enulose) 20 gm PO BID [facility] Last Admin: 01/27/18 18:58 Dose: Not Given Midodrine (Proamatine) 10 mg PO TID [facility] Last Admin: 01/27/18 17:44 Dose: 10 mg Nadolol (Corgard) 10 mg PO DAILY [facility] Last Admin: 01/27/18 10:00 Dose: Not Given Ondansetron HCl (Zofran Inj) 4 mg IVP Q6 PRN PRN Reason: Nausea/Vomiting Last Admin: 01/27/18 06:15 Dose: 4 mg Oxycodone HCl (Oxycodone Immediate Release Tab) 5 mg PO Q8H PRN PRN Reason: Pain, severe (8-10) Last Admin: 01/27/18 01:50 Dose: 5 mg Pantoprazole Sodium (Protonix Ec Tab) 40 mg PO 0600 [facility] Last Admin: 01/28/18 05:34 Dose: 40 mg Rifaximin (Xifaxan) 550 mg PO BID [facility] PRN Reason: Protocol Stop: 02/18/18 18:00 Last Admin: 01/27/18 17:44 Dose: 550 mg Tamsulosin HCl (Flomax) 0.4 mg PO DAILY [facility] Last Admin: 01/27/18 18:59 Dose: Not Given - Labs Labs: 01/28/18 04:00 01/28/18 04:00 PT 15.8 SECONDS (9.4-12.5) H 01/28/18 04:00 INR 1.37 (0.93-1.08) H 01/28/18 04:00 APTT 35.8 Seconds (25.1-36.5) 01/25/18 08:30 - Constitutional Appears: Non-toxic, No Acute Distress, Cachectic - Head Exam Head Exam: ATRAUMATIC, NORMAL INSPECTION, NORMOCEPHALIC - Eye Exam Eye Exam: EOMI, Normal appearance Pupil Exam: PERRL - ENT Exam ENT Exam: Mucous Membranes Moist - Respiratory Exam Respiratory Exam: Clear to Ausculation Bilateral, NORMAL BREATHING PATTERN - Cardiovascular Exam Cardiovascular Exam: REGULAR RHYTHM - GI/Abdominal Exam GI & Abdominal Exam: Soft, Normal Bowel Sounds. absent: Distended, Guarding, Tenderness - Extremities Exam Extremities Exam: Full ROM. absent: Pedal Edema - Neurological Exam Neurological Exam: Alert, Awake - Psychiatric Exam Psychiatric exam: Normal Affect, Normal Mood - Skin Skin Exam: Dry, Intact, Normal Color, Warm Assessment and Plan - Assessment and Plan (Free Text) Assessment: This is a 63yM presenting with confusion. 1. Decompensated Cirrhosis, MELD 22 on admission, MELD 17 today 2. HE stage 1 3. QGH-gtw-lephh vs HRS 4. Hx of varices s/p EVL 5. Hx of ascites, neg SBP Plan: -Continue supportive care, MELD 17 today -Continue lactulose and rifaxamin for HE, 2-3BM daily -KEYUR improved to baseine 1.6 from 2.6 on admission, s/p albumin and midodrine per nephrology recommendations appreciated -Hold diuretics -Monitor renal function -Low salt diet -No ascites, abdominal distention or pain -No plan for EGD, H/H stable -EGD 09/2017 for variceal bleed and EVL -Continue nadolol -Abd US 02/05 negative for liver lesion -PTOT out of bed, ambulation encouraged -Pt has appointment at [facility] February 01 which he should follow up -Please call with any questions or concerns
[2018-01-28 08:05] VITALS: TEMP 97.9
[2018-01-28 09:44] VITALS: BP 112/70; PULSE 70
--- NOTE | 2018-01-28 09:47 | CP.PCM.DIS ---
<Obie Velazquez - Last Filed: 01/29/18 13:13> Provider - Provider Date of Admission: 01/25/18 09:15 Attending physician: Felicita Rosales MD Primary care physician: Surinder Bishop MD Consults: Nephro: Alvino GI: Royal Time Spent in preparation of Discharge (in minutes): 75 Hospital Course - Lab Results Lab Results: Micro Results 01/25/18 10:00 Urine,Clean Catch Urine Culture - Final No Growth (<1,000 CFU/ML) Most Recent Lab Values WBC 6.0 10^3/ul (4.5-11.0) D 01/28/18 04:00 RBC 2.71 10^6/uL (3.5-6.1) L 01/28/18 04:00 Hgb 8.8 g/dL (14.0-18.0) L 01/28/18 04:00 Hct 27.5 % (42.0-52.0) L 01/28/18 04:00 MCV 101.5 fl (80.0-105.0) 01/28/18 04:00 MCH 32.5 pg (25.0-35.0) 01/28/18 04:00 MCHC 32.0 g/dl (31.0-37.0) 01/28/18 04:00 RDW 20.9 % (11.5-14.5) H 01/28/18 04:00 Plt Count 89 10^3/uL (120.0-450.0) L 01/28/18 04:00 MPV 9.4 fl (7.0-11.0) 01/28/18 04:00 Gran % 62.5 % (50.0-68.0) 01/28/18 04:00 Lymph % (Auto) 18.4 % (22.0-35.0) L 01/28/18 04:00 [place] % (Auto) 15.2 % (1.0-6.0) H 01/28/18 04:00 Eos % (Auto) 3.4 % (1.5-5.0) 01/28/18 04:00 Baso % (Auto) 0.5 % (0.0-3.0) 01/28/18 04:00 Gran # 3.73 (1.4-6.5) 01/28/18 04:00 Lymph # (Auto) 1.1 (1.2-3.4) L 01/28/18 04:00 [place] # (Auto) 0.9 (0.1-0.6) H 01/28/18 04:00 Eos # (Auto) 0.2 (0.0-0.7) 01/28/18 04:00 Baso # (Auto) 0.03 K/mm3 (0.0-2.0) 01/28/18 04:00 PT 15.8 SECONDS (9.4-12.5) H 01/28/18 04:00 INR 1.37 (0.93-1.08) H 01/28/18 04:00 APTT 35.8 Seconds (25.1-36.5) 01/25/18 08:30 Sodium 141 mmol/L (132-148) 01/28/18 04:00 Potassium 4.8 mmol/L (3.6-5.0) 01/28/18 04:00 Chloride 103 mmol/L (98-107) 01/28/18 04:00 Carbon Dioxide 27 mmol/L (21-33) 01/28/18 04:00 Anion Gap 16 (10-20) 01/28/18 04:00 BUN 46 mg/dL (7-21) H 01/28/18 04:00 Creatinine 1.6 mg/dl (0.8-1.5) H 01/28/18 04:00 Est GFR ( Amer) 53 01/28/18 04:00 Est GFR (Non-Af Amer) 44 01/28/18 04:00 Random Glucose 102 mg/dL (70-110) 01/28/18 04:00 Calcium 10.6 mg/dL (8.4-10.5) H 01/28/18 04:00 Total Bilirubin 2.2 mg/dL (0.2-1.3) H 01/28/18 04:00 AST 57 U/L (17-59) 01/28/18 04:00 ALT 26 U/L (7-56) 01/28/18 04:00 Alkaline Phosphatase 252 U/L (38-126) H 01/28/18 04:00 Ammonia 34 umol/L (9-33) H 01/25/18 08:30 Total Creatine Kinase 26 U/L (35-230) L 01/25/18 08:30 Total Protein 8.6 g/dL (5.8-8.3) H 01/28/18 04:00 Albumin 3.9 g/dL (3.0-4.8) 01/28/18 04:00 Globulin 4.7 gm/dL 01/28/18 04:00 Albumin/Globulin Ratio 0.8 (1.1-1.8) L 01/28/18 04:00 Lipase 144 U/L (23-300) 01/25/18 08:30 Urine Color Yellow (YELLOW) 01/25/18 10:00 Urine Appearance Clear (CLEAR) 01/25/18 10:00 Urine pH 6.0 (4.7-8.0) 01/25/18 10:00 Ur Specific [place] 1.010 (1.005-1.035) 01/25/18 10:00 Urine Protein Negative mg/dL (<30 mg/dL) 01/25/18 10:00 Urine Glucose (UA) Negative mg/dL (NEGATIVE) 01/25/18 10:00 Urine Ketones Negative mg/dL (NEGATIVE) 01/25/18 10:00 Urine Blood Negative (NEGATIVE) 01/25/18 10:00 Urine Nitrate Negative (NEGATIVE) 01/25/18 10:00 Urine Bilirubin Negative (NEGATIVE) 01/25/18 10:00 Urine Urobilinogen 1.0 E.U./dL (<1 E.U./dL) H 01/25/18 10:00 Ur Leukocyte Esterase Trace Tomy/uL (NEGATIVE) H 01/25/18 10:00 Urine RBC 0 - 2 /hpf (0-2) 01/25/18 10:00 Urine WBC 0 - 2 /hpf (0-6) 01/25/18 10:00 Ur Epithelial Cells 0 - 2 /hpf (0-5) 01/25/18 10:00 Urine Bacteria Neg (NEG) 01/25/18 10:00 Urine Eosinophils Negative 01/25/18 14:00 Ur Random Creatinine 55 mg/dL 01/26/18 16:15 U Random Total Protein 13 mg/L 01/25/18 11:30 Ur Random Sodium 62 meq/L 01/26/18 16:15 Ur Random Potassium 18.4 meq/L 01/25/18 14:00 Ur Random Urea Nitrogn 379 mg/dL 01/25/18 14:00 Urine Microalbumin 9.9 mg/L (0.0-16.6) 01/25/18 11:30 Urine Opiates Screen Positive (NEGATIVE) H 01/25/18 14:00 Urine Methadone Screen Negative (NEGATIVE) 01/25/18 14:00 Ur Barbiturates Screen Negative (NEGATIVE) 01/25/18 14:00 Ur Phencyclidine Scrn Negative (NEGATIVE) 01/25/18 14:00 Ur Amphetamines Screen Negative (NEGATIVE) 01/25/18 14:00 U Benzodiazepines Scrn Negative (NEGATIVE) 01/25/18 14:00 U Oth Cocaine Metabols Negative (NEGATIVE) 01/25/18 14:00 U Cannabinoids Screen Negative (NEGATIVE) 01/25/18 14:00 - Hospital Course Hospital Course: 63 yo man with PMH decompensated cirrhosis with prior ascites requiring paracentesis, upper GI bleed, varices requiring banding, and hepatic encephalopathy; CAD s/p stenting, dilated cardiomyopathy and heart failure, and hypertension presents with acute kidney injury. The staging of the chronic kidney disease stage 3B. Patients FeNa was 2.0% indicating intrinsic azotemia and FeUrea 60.2%, also indicating intrinsic azotemia. Hepatorenal syndrome excluded. Pts kidney function improved with IV fluids and albumin. Post-renal excluded, pt continued to produce appropriate amount of urine. PAtient was as placed on fluids and albumin. Kidney function was monitored and improved over the course of stay. Nephrology was consulted and recs were followed. Patients chirrosis was classified as Child Sauceda Class B (mine-operative mortality 30%). MELD score was 23 points (19.6% estimated 3 mo mortality). Patient was given lactulose and titrated for bowel movements. Nadolol was given for esophageal varices, GI was consulted. Patient was told to follow up Dr. De Oliveira as outpatient for renal issues. He was also told to attend his appointment at [facility] February 01 for transplant. Patient should continue to take the remainder of his medication except lasix and spironolactone. He was aware of plan and agreed. Discharge Exam - Head Exam Head Exam: ATRAUMATIC, NORMAL INSPECTION, NORMOCEPHALIC - Eye Exam Eye Exam: EOMI, Normal appearance - ENT Exam ENT Exam: Mucous Membranes Moist - Respiratory Exam Respiratory Exam: NORMAL BREATHING PATTERN - Cardiovascular Exam Cardiovascular Exam: REGULAR RHYTHM - GI/Abdominal Exam GI & Abdominal Exam: Normal Bowel Sounds. absent: Distended - Neurological Exam Neurological exam: Alert, Oriented x3 Discharge Plan - Discharge Medications Prescriptions: Rifaximin [Xifaxan] 550 mg PO BID #60 tablet - Follow Up Plan Condition: FAIR Disposition: HOME/ ROUTINE Instructions: Delirium (Confusion), Altered Mental Status (DC), Acute Kidney Failure (DC), Urinary Retention Additional Instructions: 1. Follow up with Dr. De Oliveira on Tuesday or Tuesday regarding whether to restart lasix and spironolactone. Patient should continue to take the remainder of his medication except lasix and spironolactone. 2. Patient has appointment at [facility] February 01 which he should follow up 3. Follow up with primary care doctor within 1 week Referrals: Wood De Oliveira MD [Staff Provider] - Surinder Bishop MD [Primary Care Provider] - <Felicita Rosales - Last Filed: 01/29/18 13:20> Provider - Provider Date of Admission: 01/25/18 09:15 Attending physician: Felicita Rosales MD Primary care physician: Surinder Bishop MD Hospital Course - Lab Results Lab Results: Micro Results 01/25/18 10:00 Urine,Clean Catch Urine Culture - Final No Growth (<1,000 CFU/ML) Most Recent Lab Values WBC 6.0 10^3/ul (4.5-11.0) D 01/28/18 04:00 RBC 2.71 10^6/uL (3.5-6.1) L 01/28/18 04:00 Hgb 8.8 g/dL (14.0-18.0) L 01/28/18 04:00 Hct 27.5 % (42.0-52.0) L 01/28/18 04:00 MCV 101.5 fl (80.0-105.0) 01/28/18 04:00 MCH 32.5 pg (25.0-35.0) 01/28/18 04:00 MCHC 32.0 g/dl (31.0-37.0) 01/28/18 04:00 RDW 20.9 % (11.5-14.5) H 01/28/18 04:00 Plt Count 89 10^3/uL (120.0-450.0) L 01/28/18 04:00 MPV 9.4 fl (7.0-11.0) 01/28/18 04:00 Gran % 62.5 % (50.0-68.0) 01/28/18 04:00 Lymph % (Auto) 18.4 % (22.0-35.0) L 01/28/18 04:00 [place] % (Auto) 15.2 % (1.0-6.0) H 01/28/18 04:00 Eos % (Auto) 3.4 % (1.5-5.0) 01/28/18 04:00 Baso % (Auto) 0.5 % (0.0-3.0) 01/28/18 04:00 Gran # 3.73 (1.4-6.5) 01/28/18 04:00 Lymph # (Auto) 1.1 (1.2-3.4) L 01/28/18 04:00 [place] # (Auto) 0.9 (0.1-0.6) H 01/28/18 04:00 Eos # (Auto) 0.2 (0.0-0.7) 01/28/18 04:00 Baso # (Auto) 0.03 K/mm3 (0.0-2.0) 01/28/18 04:00 PT 15.8 SECONDS (9.4-12.5) H 01/28/18 04:00 INR 1.37 (0.93-1.08) H 01/28/18 04:00 APTT 35.8 Seconds (25.1-36.5) 01/25/18 08:30 Sodium 141 mmol/L (132-148) 01/28/18 04:00 Potassium 4.8 mmol/L (3.6-5.0) 01/28/18 04:00 Chloride 103 mmol/L (98-107) 01/28/18 04:00 Carbon Dioxide 27 mmol/L (21-33) 01/28/18 04:00 Anion Gap 16 (10-20) 01/28/18 04:00 BUN 46 mg/dL (7-21) H 01/28/18 04:00 Creatinine 1.6 mg/dl (0.8-1.5) H 01/28/18 04:00 Est GFR ( Amer) 53 01/28/18 04:00 Est GFR (Non-Af Amer) 44 01/28/18 04:00 Random Glucose 102 mg/dL (70-110) 01/28/18 04:00 Calcium 10.6 mg/dL (8.4-10.5) H 01/28/18 04:00 Total Bilirubin 2.2 mg/dL (0.2-1.3) H 01/28/18 04:00 AST 57 U/L (17-59) 01/28/18 04:00 ALT 26 U/L (7-56) 01/28/18 04:00 Alkaline Phosphatase 252 U/L (38-126) H 01/28/18 04:00 Ammonia 34 umol/L (9-33) H 01/25/18 08:30 Total Creatine Kinase 26 U/L (35-230) L 01/25/18 08:30 Total Protein 8.6 g/dL (5.8-8.3) H 01/28/18 04:00 Albumin 3.9 g/dL (3.0-4.8) 01/28/18 04:00 Globulin 4.7 gm/dL 01/28/18 04:00 Albumin/Globulin Ratio 0.8 (1.1-1.8) L 01/28/18 04:00 Lipase 144 U/L (23-300) 01/25/18 08:30 Urine Color Yellow (YELLOW) 01/25/18 10:00 Urine Appearance Clear (CLEAR) 01/25/18 10:00 Urine pH 6.0 (4.7-8.0) 01/25/18 10:00 Ur Specific [place] 1.010 (1.005-1.035) 01/25/18 10:00 Urine Protein Negative mg/dL (<30 mg/dL) 01/25/18 10:00 Urine Glucose (UA) Negative mg/dL (NEGATIVE) 01/25/18 10:00 Urine Ketones Negative mg/dL (NEGATIVE) 01/25/18 10:00 Urine Blood Negative (NEGATIVE) 01/25/18 10:00 Urine Nitrate Negative (NEGATIVE) 01/25/18 10:00 Urine Bilirubin Negative (NEGATIVE) 01/25/18 10:00 Urine Urobilinogen 1.0 E.U./dL (<1 E.U./dL) H 01/25/18 10:00 Ur Leukocyte Esterase Trace Tomy/uL (NEGATIVE) H 01/25/18 10:00 Urine RBC 0 - 2 /hpf (0-2) 01/25/18 10:00 Urine WBC 0 - 2 /hpf (0-6) 01/25/18 10:00 Ur Epithelial Cells 0 - 2 /hpf (0-5) 01/25/18 10:00 Urine Bacteria Neg (NEG) 01/25/18 10:00 Urine Eosinophils Negative 01/25/18 14:00 Ur Random Creatinine 55 mg/dL 01/26/18 16:15 U Random Total Protein 13 mg/L 01/25/18 11:30 Ur Random Sodium 62 meq/L 01/26/18 16:15 Ur Random Potassium 18.4 meq/L 01/25/18 14:00 Ur Random Urea Nitrogn 379 mg/dL 01/25/18 14:00 Urine Microalbumin 9.9 mg/L (0.0-16.6) 01/25/18 11:30 Urine Opiates Screen Positive (NEGATIVE) H 01/25/18 14:00 Urine Methadone Screen Negative (NEGATIVE) 01/25/18 14:00 Ur Barbiturates Screen Negative (NEGATIVE) 01/25/18 14:00 Ur Phencyclidine Scrn Negative (NEGATIVE) 01/25/18 14:00 Ur Amphetamines Screen Negative (NEGATIVE) 01/25/18 14:00 U Benzodiazepines Scrn Negative (NEGATIVE) 01/25/18 14:00 U Oth Cocaine Metabols Negative (NEGATIVE) 01/25/18 14:00 U Cannabinoids Screen Negative (NEGATIVE) 01/25/18 14:00 Attending/Attestation - Attestation I have personally seen and examined this patient.: Yes I have fully participated in the care of the patient.: Yes I have reviewed all pertinent clinical information, including history, physical exam and plan: Yes Notes (Text): 01/29/18 13:17 Attending note; Patient seen and examined with resident. Patient is a 62 -year-old malewith PMH of CAD s/p stent, Afib s/p cardioconversion, anemia, GI bleed ,esophageal varices ,acute on chronic kidney disease and Non-alcoholic liver cirrhosis who presents to [facility] with complaint of confusion and general weakness. Patient was found to be dehydrated with elevated creatinine. Acute on chronic kidney disease; creatinine improved from 2.6-1.6. Lasix and Aldactone stopped. Started on IV fluids and midodrine. Nephrology evaluation appreciated. cryptogenic cirrhosis; GI evaluation with Dr. Paige appreciated. Patient with a history of GI bleed in the past with banding. Currently no active bleeding. Stable hemoglobin. Tolerating diet. Continue on nadolol. Hepatic encephalopathy; continue lactulose and rifaximin. rifaximin approved for next 3 months. Physical therapy evaluation appreciated. home care arranged by outsole caser. Patient has appointment with [facility] next week. Upon discharge the patient will follow-up with PMD Dr. Bishop.
[2018-01-30 21:32] LABS: TOTAL PSA <0.1 ng/mL (< or = 4.0)
== END 2018-01-28 15:12 | disposition home or self-care (01) | DRG 683 ==
LOC: ED 07:40 → ERH 09:15 → 5RNO 13:07
PROVIDERS: ADMIT Internal Medicine; ATTEND Internal Medicine
DX: N17.9 Acute kidney failure, unspecified (principal); I13.0 Hypertensive heart and chronic kidney disease with heart failure and stage 1 through stage 4 chronic kidney disease, or unspecified chronic kidney disease; I42.0 Dilated cardiomyopathy; I48.91 Unspecified atrial fibrillation; E83.52 Hypercalcemia; I50.32 Chronic diastolic (congestive) heart failure; I85.10 Secondary esophageal varices without bleeding; E86.0 Dehydration; K76.6 Portal hypertension; K92.2 Gastrointestinal hemorrhage, unspecified; R18.8 Other ascites; N10 Acute pyelonephritis; I25.10 Atherosclerotic heart disease of native coronary artery without angina pectoris; I71.4 Abdominal aortic aneurysm, without rupture; K21.9 Gastro-esophageal reflux disease without esophagitis; G89.29 Other chronic pain; K59.00 Constipation, unspecified; K72.90 Hepatic failure, unspecified without coma; K74.60 Unspecified cirrhosis of liver; N18.9 Chronic kidney disease, unspecified; D63.1 Anemia in chronic kidney disease; G47.00 Insomnia, unspecified; Z82.49 Family history of ischemic heart disease and other diseases of the circulatory system; Z83.3 Family history of diabetes mellitus; Z87.01 Personal history of pneumonia (recurrent); Z87.891 Personal history of nicotine dependence; Z91.19 Patient's noncompliance with other medical treatment and regimen; Z95.5 Presence of coronary angioplasty implant and graft; Z91.018 Allergy to other foods; Z91.048 Other nonmedicinal substance allergy status; Z87.892 Personal history of anaphylaxis

== ENCOUNTER 2018-02-19 05:01 | Inpatient (IN) | payer BC ==
[2018-02-19 05:04] VITALS: BMI 19.6
[2018-02-19] MEDS ORDERED: Sodium Chloride 0.9% 1,000 ML IV STA (05:22)
--- NOTE | 2018-02-19 05:27 | ED PDOC ---
Arrival/HPI - General Chief Complaint: Shortness Of Breath Time Seen by Provider: 02/19/18 05:04 Historian: Patient - History of Present Illness Narrative History of Present Illness (Text): 02/19/18 05:23 63 year old male, whose history includes non-alcohol related cirrhosis of the liver, presents to the emergency department complaining of weakness, back pain, and urinary frequency for 3 weeks. Patient also complains of decreased PO intake , vomiting bile, and a distended abdomen that needs to be drained. Patient denies any fevers, chills, chest pain, shortness of breath, abdominal pain, diarrhea, neck pain, hematuria, headache, dizziness, or any other complaint. Time/Duration: < month (3 weeks) Symptom Onset: Gradual Symptom Course: Unchanged Context: Home Past Medical History - Provider Review Nursing Documentation Reviewed: Yes - Infectious Disease Hx of Infectious Diseases: None - Tetanus Immunization Tetanus Immunization: Unknown - Cardiac Hx Hypertension: Yes - Pulmonary Hx Respiratory Disorders: Yes Hx Pneumonia: Yes (09/06) - Neurological Hx Neurological Disorder: No - HEENT Hx HEENT Disorder: No - Renal Hx Renal Failure: Yes - Endocrine/Metabolic Hx Endocrine Disorders: No - Hematological/Oncological Hx Blood Disorders: Yes Hx Cirrhosis: Yes (PARACENTESIS) - Integumentary Hx Dermatological Disorder: No - Musculoskeletal/Rheumatological Hx Musculoskeletal Disorders: Yes Hx Back Pain: Yes Hx Falls: Yes Hx Unsteady Gait: Yes - Gastrointestinal Hx Gastrointestinal Disorders: Yes (UPPER GI BLEED) Hx Gastroesophageal Reflux: Yes - Genitourinary/Gynecological Hx Genitourinary Disorders: No - Psychiatric Hx Psychophysiologic Disorder: Yes Hx Anxiety: Yes Hx Substance Use: No - Surgical History Hx Coronary Stent: Yes - Anesthesia Hx Anesthesia: Yes Hx Anesthesia Reactions: No Hx Malignant Hyperthermia: No Family/Social History - Physician Review Nursing Documentation Reviewed: Yes Family/Social History: Unknown Family HX Smoking Status: Former Smoker Hx Alcohol Use: No Hx Substance Use: No Allergies/Home Meds Allergies/Adverse Reactions: Allergies Beef Containing Products Allergy (Severe, Verified 02/19/18 05:04) ANAPHYLAXIS tounge swelling, beef derived (bovine) Allergy (Severe, Verified 02/19/18 05:04) ANAPHYLAXIS tounge swelling banana Allergy (Intermediate, Verified 02/19/18 05:04) ITCHING velcro Allergy (Uncoded 02/19/18 05:04) ITCHING Home Medications: Home Meds Medication Instructions Recorded Confirmed Pantoprazole [Protonix EC Tab] 40 mg PO DAILY 07/21/17 02/19/18 Cholecalciferol (Vitamin D3) 2,000 unit PO DAILY 11/20/17 02/19/18 [Vitamin D3] Cyanocobalamin [Vitamin B12 1000 1,000 mcg PO DAILY 11/20/17 02/19/18 mcg Tab] Nadolol [Corgard] 10 mg PO DAILY 11/20/17 02/19/18 ALPRAZolam [Xanax] 0.5 mg PO HS 01/25/18 02/19/18 Ascorbic Acid [Vitamin C with Mariza 1,000 mg PO BID 01/25/18 02/19/18 Hips] Lactose-Reduced Food [Nutritional 237 ml PO TID 01/25/18 02/19/18 Drink Plus] Lactulose [Kristalose] 20 gm PO BID 01/25/18 02/19/18 Ondansetron HCl [Zofran] 4 mg PO Q8 PRN 01/25/18 02/19/18 Review of Systems - Physician Review All systems were reviewed & negative as marked: Yes - Review of Systems Constitutional: absent: Fevers Respiratory: absent: SOB Physical Exam - Physical Exam Narrative Physical Exam (Text): 02/19/18 05:28 Constitutional: No acute distress. Head: Normocephalic. Atraumatic. Eyes: PERRL. ENT: Dry mucous membranes. Neck: Supple. Cardiovascular: Regular rate. Chest: No tenderness. Respiratory: Clear to auscultation bilaterally. GI: Distended. Back: Bilateral CVA tenderness. No midline tenderness. Musculoskeletal: No tenderness or swelling of extremities. Skin: No rash. Neurologic: Alert, no focal deficit. Vital Signs Reviewed: Yes Vital Signs Temp Pulse Resp BP Pulse Ox 02/19/18 05:30 18 100 02/19/18 05:16 97.7 F 59 L 18 142/73 100 Medical Decision Making ED Course and Treatment: 02/19/18 05:30 Impression: 63 year old male presents to the emergency department complaining of weakness, back pain, and urinary frequency. Plan: -- Chest xray -- EKG -- Urine culture -- Urinalysis -- Labs -- Sodium Chloride IV fluids -- Reassess and disposition Prior Visits: Notes and results from previous visits were reviewed. Patient was last seen in the emergency department on 01/25/18, was diagnosed with acute renal failure and confusion, and was admitted to the hospital. Progress Notes: 02/19/18 05:48 EKG: Ordered, reviewed, and independently interpreted the EKG. Rate : 60 BPM Rhythm : NSR Interpretation : No ST-T changes. 02/19/18 05:56 Chest xray: no acute disease Patient has acute renal insufficiency and hyperammonemia. 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 - Lab Interpretations Lab Results: 02/19/18 05:30 02/19/18 05:30 Lab Results 02/19/18 05:30: Ammonia 55 H 02/19/18 05:30: Sodium 136, Potassium 5.2 H, Chloride 99, Carbon Dioxide 26, Anion Gap 17, BUN 75 H, Creatinine 2.4 H, Est GFR ( Amer) 33, Est GFR ( Non-Af Amer) 27, Random Glucose 111 H, Calcium 10.9 H, Total Bilirubin 3.5 H, AST 82 H D, ALT 32, Alkaline Phosphatase 353 H D, Total Protein 10.4 H, Albumin 4.1, Globulin 6.3, Albumin/Globulin Ratio 0.6 L, Lipase 156 02/19/18 05:30: PT 15.1 H, INR 1.31 H, APTT 36.5 02/19/18 05:30: WBC 5.8, RBC 3.11 L, Hgb 10.9 L D, Hct 31.8 L, MCV 102.3, MCH 35.0, MCHC 34.3, RDW 18.7 H, Plt Count 145, MPV 10.3, Gran % 56.2, Lymph % (Auto ) 20.8 L, [place] % (Auto) 20.1 H, Eos % (Auto) 2.4, Baso % (Auto) 0.5, Gran # 3.27 , Lymph # (Auto) 1.2, [place] # (Auto) 1.2 H, Eos # (Auto) 0.1, Baso # (Auto) 0.03 , Neutrophils % (Manual) Pending, Lymphocytes % (Manual) Pending, Monocytes % ( Manual) Pending - RAD Interpretation Radiology Orders: 02/19/18 05:22 CHEST PORTABLE [RAD] Stat - Medication Orders Current Medication Orders: Sodium Chloride (Sodium Chloride 0.9%) 1,000 mls @ 75 mls/hr IV .[id number] STA Stop: 02/19/18 18:41 Last Admin: 02/19/18 05:36 Dose: 75 mls/hr eMAR Start Stop Document 02/19/18 05:36 AD (Rec: 02/19/18 05:36 AD [id number]) Intravenous Solution Start Date 02/19/18 Start Time 05:36 - Scribe Statement The provider has reviewed the documentation as recorded by the Lizetibe Ezequiel Sanchez Provider Scribe Attestation: All medical record entries made by the Lizetibe were at my direction and personally dictated by me. I have reviewed the chart and agree that the record accurately reflects my personal performance of the history, physical exam, medical decision making, and the department course for this patient. I have also personally directed, reviewed, and agree with the discharge instructions and disposition. Disposition/Present on Arrival - Present on Arrival Any Indicators Present on Arrival: No History of DVT/PE: No History of Uncontrolled Diabetes: No Urinary Catheter: No History of Decub. Ulcer: No History Surgical Site Infection Following: None - Disposition Have Diagnosis and Disposition been Completed?: Yes Diagnosis: Acute renal failure, Ascites Disposition: HOSPITALIZED Disposition Time: 06:21 Patient Plan: Admission Condition: FAIR Forms: [employer] ([place])
[2018-02-19 05:49] LABS: BASO # 0.03 K/mm3 (0.0-2.0); BASO % 0.5 % (0.0-3.0); EOS # 0.1 (0.0-0.7); EOS % 2.4 % (1.5-5.0); GRAN # 3.27 (1.4-6.5); GRAN % 56.2 % (50.0-68.0); HEMOGLOBIN 10.9 g/dL (14.0-18.0); LYMPH # 1.2 (1.2-3.4); LYMPH % 20.8 % (22.0-35.0); MEAN CELL VOLUME 102.3 fl (80.0-105.0); MEAN CORPUSCULAR HGB CONC 34.3 g/dl (31.0-37.0); MEAN PLATELET VOLUME 10.3 fl (7.0-11.0); MONO # 1.2 (0.1-0.6); MONO % 20.1 % (1.0-6.0); PLATELET COUNT 145 10^3/uL (120.0-450.0); RBC 3.11 10^6/uL (3.5-6.1); RED CELL DISTRIBUTION WIDTH 18.7 % (11.5-14.5); WHITE BLOOD COUNT 5.8 10^3/ul (4.5-11.0)
[2018-02-19 06:01] LABS: INR 1.31 (0.93-1.08); PARTIAL THROMBOPLASTIN TIME 36.5 Seconds (25.1-36.5); PROTHROMBIN TIME 15.1 SECONDS (9.4-12.5)
[2018-02-19 06:02] LABS: ALB/GLOB RATIO 0.6 (1.1-1.8); ALBUMIN 4.1 g/dL (3.0-4.8); CALCIUM 10.9 mg/dL (8.4-10.5)
--- NOTE | 2018-02-19 07:02 | ED PDOC ---
Physical Exam Vital Signs Temp Pulse Resp BP Pulse Ox 02/19/18 07:11 75 16 100/66 97 02/19/18 06:57 68 18 103/67 100 02/19/18 05:30 18 100 02/19/18 05:16 97.7 F 59 L 18 122/73 100 Medical Decision Making ED Course and Treatment: 02/19/18 07:00 Case signed out to me by Dr. Henao to hand off for admission to hospitalist. Patient is a 63 Year old male, whose PMH includes non-alcohol related cirrhosis of the liver, who presented to the emergency department complaining of weakness , back pain, urinary frequency for 3 weeks, associated with vomiting bile. Patient will be admitted. 02/19/18 07:[address] Mccloud who agrees to admission to medicine. - Lab Interpretations Lab Results: 02/19/18 05:30 02/19/18 05:30 Lab Results 02/19/18 05:30: Ammonia 55 H 02/19/18 05:30: Sodium 136, Potassium 5.2 H, Chloride 99, Carbon Dioxide 26, Anion Gap 17, BUN 75 H, Creatinine 2.4 H, Est GFR ( Amer) 33, Est GFR ( Non-Af Amer) 27, Random Glucose 111 H, Calcium 10.9 H, Total Bilirubin 3.5 H, AST 82 H D, ALT 32, Alkaline Phosphatase 353 H D, Total Protein 10.4 H, Albumin 4.1, Globulin 6.3, Albumin/Globulin Ratio 0.6 L, Lipase 156 02/19/18 05:30: PT 15.1 H, INR 1.31 H, APTT 36.5 02/19/18 05:30: WBC 5.8, RBC 3.11 L, Hgb 10.9 L D, Hct 31.8 L, MCV 102.3, MCH 35.0, MCHC 34.3, RDW 18.7 H, Plt Count 145, MPV 10.3, Gran % 56.2, Lymph % (Auto ) 20.8 L, Blanco % (Auto) 20.1 H, Eos % (Auto) 2.4, Baso % (Auto) 0.5, Gran # 3.27 , Lymph # (Auto) 1.2, Bl[place] # (Auto) 1.2 H, Eos # (Auto) 0.1, Baso # (Auto) 0.03 , Neutrophils % (Manual) Pending, Lymphocytes % (Manual) Pending, Monocytes % ( Manual) Pending - RAD Interpretation Radiology Orders: 02/19/18 05:22 CHEST PORTABLE [RAD] Stat - Medication Orders Current Medication Orders: Sodium Chloride (Sodium Chloride 0.9%) 1,000 mls @ 75 mls/hr IV .[id number] STA Stop: 02/19/18 18:41 Last Admin: 02/19/18 05:36 Dose: 75 mls/hr eMAR Start Stop Document 02/19/18 05:36 AD (Rec: 02/19/18 05:36 AD [id number]) Intravenous Solution Start Date 02/19/18 Start Time 05:36 - Scribe Statement Kalina Orellana Provider Scribe Attestation: All medical record entries made by the Scribe were at my direction and personally dictated by me. I have reviewed the chart and agree that the record accurately reflects my personal performance of the history, physical exam, medical decision making, and the department course for this patient. I have also personally directed, reviewed, and agree with the discharge instructions and disposition. Disposition/Present on Arrival - Present on Arrival Any Indicators Present on Arrival: No History of DVT/PE: No History of Uncontrolled Diabetes: No Urinary Catheter: No History of Decub. Ulcer: No History Surgical Site Infection Following: None - Disposition Have Diagnosis and Disposition been Completed?: Yes Diagnosis: Acute renal failure, Ascites Disposition: HOSPITALIZED Disposition Time: 06:09 Patient Plan: Admission Patient Problems: Current Active Problems Problem Status Onset Acute renal failure Acute Ascites Chronic Condition: FAIR
[2018-02-19 07:35] LABS: URINE BILIRUBIN NEGATIVE (NEGATIVE); URINE BLOOD NEGATIVE (NEGATIVE); URINE GLUCOSE (UA) NEGATIVE (NEGATIVE); URINE LEUKOCYTE ESTERASE NEGATIVE Leu/uL (NEGATIVE); URINE PROTEIN NEGATIVE mg/dL (<30 mg/dL)
[2018-02-19 07:37] LABS: URINE APPEARANCE CLEAR (CLEAR); URINE COLOR YELLOW (YELLOW)
[2018-02-19 09:01] LABS: ATYPICAL LYMPHOCYTE 3 % (0.0-0.0); EOSINOPHIL 3 % (0.0-3.0); LYMPHOCYTE 29 % (22.0-35.0); MONOCYTE 12 % (1.0-6.0); NEUTROPHIL 53 % (50.0-70.0)
[2018-02-19 09:02] LABS: HYPOCHROMIA SLIGHT; PLATELET ESTIMATE NORMAL (NORMAL)
--- NOTE | 2018-02-19 09:32 | RAD ---
HISTORY: general weakness COMPARISON: 01/25/2018 FINDINGS: LUNGS: No active pulmonary disease. PLEURA: No significant pleural effusion identified, no pneumothorax apparent. CARDIOVASCULAR: No radiographic findings to suggest acute or significant cardiovascular disease. OSSEOUS STRUCTURES: No significant abnormalities. VISUALIZED UPPER ABDOMEN: Normal. OTHER FINDINGS: None. IMPRESSION: No active disease. No significant interval change compared to the prior examination(s).
[2018-02-19] MEDS ORDERED: Morphine 4 mg/ml ISec IVP PRN (10:01)
--- NOTE | 2018-02-19 10:44 | CP.PCM.HP ---
<Bruce Waller - Last Filed: 02/19/18 11:48> History of Present Illness - History of Present Illness History of Present Illness: IM H&P for Hospitalist Service CC: back pain, urinary frequency, bilious emesis x3 wks HPI: This is a 63 yo M with PMH of HTN, diastolic CHF, afib s/p cardioversion, CKD stage 3B with progressive renal insufficiency, Non-alcoholic liver cirrhosis of unclear etiology, hx of hepatic encephalopathy, chronic ascites requiring paracentesis, esophageal varices with hx of upper GI bleed s/ p banding, and GERD who [place] [facility] [place] complaint of persistent and worsening lower back pain, urinary frequency, and bilious emesis intermittently x3 weeks. As per pt, was discharged [place] [facility] [place]), and had approx 1 week of no symptoms. After developing sx, they were initially mild and did not both the pt. While inpt at [facility] (for assessment for liver transplant), he noted progression of his sx, and states the team at [facility] believed the back pain to be due to his kidneys (pt does not recall any mention of nephrolithiasis). He also notes increasing abdominal distention (chronic issue for this pt), and notes that the team at [facility] did not feel that acute intervention was needed for any of these complaints while he was inpt, but instructed him to present to his local hospital if they were to worsen further. He reports able to tolerate PO intake (food and fluids) despite the intermittent episodes of emesis, and emesis is not triggered by PO intake or any other specific trigger that pt can identify. Describes urinary frequency as increasing episodes of urge to pee, but decreasing volumes passed per urinary voiding episode. Denies bowel or bladder incontinence, or LE paresthesias/paresis. Denies fevers, rigors, shortness of breath, chest pain, hematemesis, diarrhea, constipation, focal weakness, or syncope/near-syncope. Hx of hepatic encephalopathy, but compliant on current regimen of Lactulose nightly and Rifaxamin BID as per [facility], and AAOx4 (self, location, year, president) on exam. All other ROS in 12-system review negative. PMH: as above PSH: Inguinal hernia repair Fam Hx: Mother - DM, heart disease; Father - DE Soc Hx: Former smoker (1+ ppd for > 30 yrs, quit 1.5 years ago), denies EtOH/ illicits/IVDA PMD: Dr Bishop Regulatory Affairs Analyst: Dr Angeles [employer] Fire Watcher: Dr. De Oliveira GI: Dr. Paige Present on Admission - Present on Admission Any Indicators Present on Admission: No History of DVT/PE: No History of Uncontrolled Diabetes: No Urinary Catheter: No Review of Systems - Review of Systems All systems: reviewed and no additional remarkable complaints except (as per HPI ) Past Patient History - Infectious Disease Hx of Infectious Diseases: None - Tetanus Immunizations Tetanus Immunization: Unknown - Past Medical History & Family History Past Medical History?: Yes - Past Social History Smoking Status: Former Smoker - CARDIAC Hx Hypertension: Yes - PULMONARY Hx Respiratory Disorders: Yes Hx Pneumonia: Yes (09/06) - NEUROLOGICAL Hx Neurological Disorder: No - HEENT Hx HEENT Problems: No - RENAL Hx Renal Failure: Yes - ENDOCRINE/METABOLIC Hx Endocrine Disorders: No - HEMATOLOGICAL/ONCOLOGICAL Hx Blood Disorders: Yes Hx Cirrhosis: Yes (PARACENTESIS) - INTEGUMENTARY Hx Dermatological Problems: No - MUSCULOSKELETAL/RHEUMATOLOGICAL Hx Falls: Yes - GASTROINTESTINAL Hx Gastrointestinal Disorders: Yes (UPPER GI BLEED) Hx Gastroesophageal Reflux: Yes - GENITOURINARY/GYNECOLOGICAL Hx Genitourinary Disorders: No - PSYCHIATRIC Hx Psychophysiologic Disorder: Yes Hx Anxiety: Yes - SURGICAL HISTORY Hx Surgeries: Yes (STENT X1) Hx Coronary Stent: Yes - ANESTHESIA Hx Anesthesia: Yes Hx Anesthesia Reactions: No Hx Malignant Hyperthermia: No Meds Allergies/Adverse Reactions: Allergies Allergy/AdvReac Type Severity Reaction Status Date / Time Beef Containing Products Allergy Severe ANAPHYLAXIS Verified 02/19/18 05:04 beef derived (bovine) Allergy Severe ANAPHYLAXIS Verified 02/19/18 05:04 banana Allergy Intermediate ITCHING Verified 02/19/18 05:04 velcro Allergy ITCHING Uncoded 02/19/18 05:04 Physical Exam - Constitutional Appears: Non-toxic, No Acute Distress, Chronically Ill - Head Exam Head Exam: ATRAUMATIC, NORMAL INSPECTION, NORMOCEPHALIC - Eye Exam Eye Exam: EOMI, Normal appearance. absent: Conjunctival injection, Scleral icterus Pupil Exam: absent: Irregular, Unequal - ENT Exam ENT Exam: Mucous Membranes Dry. absent: Mucous Membranes Moist - Neck Exam Neck exam: Positive for: Full Rom. Negative for: Lymphadenopathy, Thyromegaly - Respiratory Exam Respiratory Exam: Clear to Auscultation Bilateral, NORMAL BREATHING PATTERN. absent: Accessory Muscle Use, Chest Wall Tenderness, Decreased Breath Sounds, Rales, Rhonchi, Wheezes - Cardiovascular Exam Cardiovascular Exam: REGULAR RHYTHM, RRR, +S1, +S2. absent: Bradycardia, Tachycardia, Irregular Rhythm, +S4 - GI/Abdominal Exam GI & Abdominal Exam: Distended, Firm, Normal Bowel Sounds (distant-sounding but otherwise normal bowel sounds), Organomegaly (hepatomegaly), Tenderness. absent : Guarding, Rigid, Soft Additional comments: palpable loops of bowel - Extremities Exam Extremities exam: Positive for: pedal pulses present. Negative for: calf tenderness, joint swelling, pedal edema, tenderness - Neurological Exam Additional comments: awake and alert, oriented x4 (self, location, year, president), following all commands appropriately motor appears grossly intact and equal - Psychiatric Exam Psychiatric exam: Normal Affect, Normal Mood - Skin Skin Exam: Dry, Intact, Normal Color, Warm Results - Vital Signs Recent Vital Signs: Last Vital Signs Temp 98.6 F 02/19/18 08:00 Pulse 66 02/19/18 08:00 Resp 20 02/19/18 08:00 BP 132/75 02/19/18 08:00 Pulse Ox 99 02/19/18 08:00 - Labs Result Diagrams: 02/19/18 05:30 02/19/18 05:30 Labs: Laboratory Results - last 24 hr 02/19/18 07:00 Urine Color Yellow Urine Appearance Clear Urine pH 6.0 Ur Specific [place] 1.015 Urine Protein Negative Urine Glucose (UA) Negative Urine Ketones Negative Urine Blood Negative Urine Nitrate Negative Urine Bilirubin Negative Urine Urobilinogen 1.0 H Ur Leukocyte Esterase Negative Assessment & Plan - Assessment and Plan (Free Text) Assessment: This is a 63 yo M with PMH of HTN, diastolic CHF, afib s/p cardioversion, CKD stage 3B with progressive renal insufficiency, Non-alcoholic liver cirrhosis of unclear etiology, hx of hepatic encephalopathy, chronic ascites requiring paracentesis, esophageal varices with hx of upper GI bleed s/ p banding, and GERD who [place] [facility] [place] complaint of persistent and worsening lower back pain, urinary frequency, and bilious emesis intermittently x3 weeks. He was admitted for likely worsened cirrhosis requiring paracentesis , and bilious emesis and urinary frequency possibly 2/2 worsening abdominal ascites. Plan: 1) Worsening back pain + nausea + bilious emesis -Nephrolithiasis vs cholelithiasis vs abdominal compartment syndrome 2/2 worsening ascites vs SBO -Bilious emesis, but not specifically provoked by PO intake, and tolerating PO fluids and solid food -reports daily BM, still passing flatus, last BM overnight, so less likely SBO -UA negative for infectious picture or hematuria, so less likely nephrolithiasis , but will obtain imaging to assess -Abd US and CT abd/pelvis with PO contrast pending -Pain control with PO oxycodone 5mg q8h and IV morphine 1mg q4 prn for if pt becomes unable to tolerate PO intake -Zofran PRN for nausea, emesis -IVF 75 cc/hr to make up for GI losses -GI (Dr. Paige) consulted, appreciate their recs -IR (Dr. Franko Crespo) consulted for possible paracentesis -lack of leukocytosis, fever, or systemic signs of infection, unlikely to be SBP 2) KEYUR on CKD -appears pre-renal, BUN 75 (was 46 on d/c), Cr 2.4 (was 1.6 at d/c) -urine and serum osms, urine electrolytes ordered, will calculated FeNa/FeUrea, but numbers may be skewed as pt already received fluids on admission -Nephro (Dr. De Oliveira) consulted, appreciate all recs 3) Non-alcoholic cirrhosis -following at [facility] for possible transplant -continue Lactulose daily and Rifaxamin BID for hepatic encephalopathy ppx -Ammonia 54, mentating normally, AAOx4 -GI (Dr. Paige) consulted, appreciate their recs -avoid hepatotoxic meds where feasible -continue home Nadolol for varices, continue Midodrine 4) Anemia -Hgb 10.9 on admission, likely hemoconcentrated given pre-renal kidney state and volume loss 2/2 emesis, recheck after adequate hydration and reassess -baseline per prior charting 8-9 Dispo: Telemetry, pending imaging and input from GI, Nephro, IR FEN: Heart-healthy diet, NS 75cc/hr Access: Peripheral IVs Consults: IR, GI, Nephro Ppx: continue protonix for GI, SCDs for DVT Patient seen, reviewed, and discussed with attending, Dr. Das. Decision To Admit - Pt Status Changed To: Hospital Disposition Of: Inpatient Admission - Admit Certification Admit to Inpatient:: After my assessment, the patient will require hospitalization for at least two midnights. This is because of the severity of symptoms shown, intensity of services needed, and/or the medical risk in this patient being treated as an outpatient. - . Bed Request Type: Telemetry <Fay Das - Last Filed: 02/19/18 16:42> Results - Vital Signs Recent Vital Signs: Last Vital Signs Temp 98.2 F 02/19/18 14:00 Pulse 63 02/19/18 14:00 Resp 20 02/19/18 14:00 BP 125/71 02/19/18 14:00 Pulse Ox 99 02/19/18 08:00 - Labs Result Diagrams: 02/19/18 05:30 02/19/18 05:30 Labs: Laboratory Results - last 24 hr 02/19/18 07:00 Urine Color Yellow Urine Appearance Clear Urine pH 6.0 Ur Specific [place] 1.015 Urine Protein Negative Urine Glucose (UA) Negative Urine Ketones Negative Urine Blood Negative Urine Nitrate Negative Urine Bilirubin Negative Urine Urobilinogen 1.0 H Ur Leukocyte Esterase Negative
[2018-02-19] MEDS: Pantoprazole 40 mg EC Tab PO SCH (10:56)
[2018-02-19] MEDS: Cholecalciferol 1,000 INTLU TAB PO SCH (10:56)
[2018-02-19] MEDS: oxyCODONE 5 mg Immediate Release Tab PO PRN ×2 (10:56→21:58)
[2018-02-19] MEDS ORDERED: Barium Sulfate Susp 2.1% w/v, 2.0% w/w 450 mL Bottle PO ONE (11:38)
[2018-02-19] MEDS ORDERED: Iohexol 240 (50 ml) ONE (12:06)
--- NOTE | 2018-02-19 14:18 | US ---
HISTORY: bilious emesis and flank pain, assess GB/kindeys COMPARISON: 01.25.18 TECHNIQUE: Sonographic evaluation of the abdomen. FINDINGS: LIVER: Measures 16.4 cm. Hepatopedal blood flow. Fatty infiltration manifest ultrasonographically as increased echogenicity of the liver parenchyma. No mass. No intrahepatic bile duct dilatation. GALLBLADDER: Unremarkable. No gallstones. COMMON BILE DUCT: Measures 3.0 mm. No stones. No dilatation. PANCREAS: Unremarkable as visualized. No mass. No ductal dilatation. RIGHT KIDNEY: Measures 9.1cm. Normal echogenicity. No calculus, mass, or hydronephrosis. LEFT KIDNEY: Measures 8.9 cm. Normal echogenicity. No calculus, mass, or hydronephrosis. SPLEEN: 5.2 x 13.6 cm. No mass. AORTA: No aneurysmal dilatation. IVC: Unremarkable. OTHER FINDINGS: Intra-abdominal ascites IMPRESSION: No acute findings related to/accounting for the clinical presentation. No significant interval change compared to the prior examination(s). Additional benign and/or incidental findings described above.
--- NOTE | 2018-02-19 14:48 | CARD ---
APPROVED REPORT EKG Measurement Heart [id number] <Conclusion> Sinus bradycardia with 1st degree AV block Otherwise normal ECG
--- NOTE | 2018-02-19 16:49 | CT ---
PROCEDURE: CT Abdomen and Pelvis with contrast HISTORY: bilious emesis COMPARISON: February 19, 2018. Abdominal ultrasound 09/02/2017 CT abdomen pelvis TECHNIQUE: Oral contrast only. Radiation dose: Total exam DLP = 468.86 mGy-cm. This CT exam was performed using one or more of the following dose reduction techniques: Automated exposure control, adjustment of the mA and/or kV according to patient size, and/or use of iterative reconstruction technique. FINDINGS: LOWER THORAX: Persistent incompletely visualized right pleural effusion LIVER: Cirrhotic liver. No focal masses are identified GALLBLADDER AND BILE DUCTS: Unremarkable. PANCREAS: Unremarkable. No gross lesion or ductal dilatation. SPLEEN: Mild splenomegaly. ADRENALS: Unremarkable. No mass. KIDNEYS AND URETERS: Tiny nonobstructing calculi bilaterally. Otherwise unremarkable kidneys and ureters. VASCULATURE: Unremarkable. No aortic aneurysm. BOWEL: Unremarkable. No obstruction. No gross mural thickening. Gastric wall thickening accentuated by decompressed stomach. No focal gastric abnormalities. APPENDIX: Normal appendix. PERITONEUM: No free air. LYMPH NODES: Unremarkable. No enlarged lymph nodes. BLADDER: Unremarkable. REPRODUCTIVE: Unremarkable. BONES: No acute fracture. OTHER FINDINGS: Large volume ascites including fluid tracking into the right inguinal canal IMPRESSION: Large volume abdominal pelvic ascites. Cirrhotic liver and mild splenomegaly. Small right pleural effusion similar finding identified on prior studies. Otherwise no acute/ significant/ new findings to account for the clinical presentation.
[2018-02-20 06:26] LABS: BASO # 0.03 K/mm3 (0.0-2.0); BASO % 0.6 % (0.0-3.0); EOS # 0.2 (0.0-0.7); EOS % 2.9 % (1.5-5.0); GRAN # 2.89 (1.4-6.5); GRAN % 55.5 % (50.0-68.0); HEMOGLOBIN 9.7 g/dL (14.0-18.0); LYMPH # 1.1 (1.2-3.4); LYMPH % 21.2 % (22.0-35.0); MEAN CELL VOLUME 102.5 fl (80.0-105.0); MEAN CORPUSCULAR HEMOGLOBIN 34.2 pg (25.0-35.0); MEAN CORPUSCULAR HGB CONC 33.3 g/dl (31.0-37.0); MONO % 19.8 % (1.0-6.0); RBC 2.84 10^6/uL (3.5-6.1); RED CELL DISTRIBUTION WIDTH 18.2 % (11.5-14.5); WHITE BLOOD COUNT 5.2 10^3/ul (4.5-11.0)
[2018-02-20 07:09] LABS: ALB/GLOB RATIO 0.6 (1.1-1.8); ALBUMIN 3.1 g/dL (3.0-4.8); CALCIUM 9.9 mg/dL (8.4-10.5)
[2018-02-20] MEDS: oxyCODONE 5 mg Immediate Release Tab PO PRN (08:22)
--- NOTE | 2018-02-20 09:53 | CP.PCM.CON ---
<Fuentes Dixon - Last Filed: 02/20/18 10:00> History of Present Illness - History of Present Illness History of Present Illness: PGY4 GI Initial Consult Emilio Lane is a 63M w/ hx of decompensated cirrhosis, complicated by esophageal varices with prior hemorrhage s/p EVL 4 months ago, ascites with no hx of SBP, hepatic encephalopathy currently on lactulose and Rifaximin , CAD s/ p stent, Afib s/p cardioversion, HTN, GERD, CHF, presents with abdominal pain. Pt states that this is his typical abd pain associated with his ascities. he notes that his pain is an 8 out of 10 and is located in his back and abd. He notes that the pain is diffuse in the upper abdomen. Pt denies any fever, chills or diaphoresis. Pt had an appointment at [facility] for liver transplant evaluation February 01, 2018. He was evaluated for liver transplant and needs to follow-up in 1 month/ Pt's labs are slightly worse from from including Cr and he has been complaint on his lactulose and xifaxan. He has been off of his diuretics. Pt was started on fluids overnight and Cr has improved. ROS: 12 Point ROS performed and negative other than stated above. PMH: As stated in HPI SH: Inguinal hernia repair Social History: Denies alcohol, drug used; Former smoker, quit 1.5 years ago Family History:Reviewed; Mother with DM, heart disease; Father with ND; Denies any hx of colon ca, liver or pancreas ca or dysfunction Endo Hx: EGD on 10/06/17 - esophageal varices and s/p EVL Past Patient History - Infectious Disease Hx of Infectious Diseases: None - Tetanus Immunizations Tetanus Immunization: Unknown - Past Medical History & Family History Past Medical History?: Yes - Past Social History Smoking Status: Former Smoker - CARDIAC Hx Hypertension: Yes - PULMONARY Hx Respiratory Disorders: Yes Hx Pneumonia: Yes (09/06) - NEUROLOGICAL Hx Neurological Disorder: No - HEENT Hx HEENT Problems: No - RENAL Hx Renal Failure: Yes - ENDOCRINE/METABOLIC Hx Endocrine Disorders: No - HEMATOLOGICAL/ONCOLOGICAL Hx Blood Disorders: Yes Hx Cirrhosis: Yes (PARACENTESIS) - INTEGUMENTARY Hx Dermatological Problems: No - MUSCULOSKELETAL/RHEUMATOLOGICAL Hx Falls: Yes - GASTROINTESTINAL Hx Gastrointestinal Disorders: Yes (UPPER GI BLEED) Hx Gastroesophageal Reflux: Yes - GENITOURINARY/GYNECOLOGICAL Hx Genitourinary Disorders: No - PSYCHIATRIC Hx Psychophysiologic Disorder: Yes Hx Anxiety: Yes - SURGICAL HISTORY Hx Surgeries: Yes (STENT X1) Hx Coronary Stent: Yes - ANESTHESIA Hx Anesthesia: Yes Hx Anesthesia Reactions: No Hx Malignant Hyperthermia: No Meds Allergies/Adverse Reactions: Allergies Allergy/AdvReac Type Severity Reaction Status Date / Time Beef Containing Products Allergy Severe ANAPHYLAXIS Verified 02/19/18 05:04 beef derived (bovine) Allergy Severe ANAPHYLAXIS Verified 02/19/18 05:04 banana Allergy Intermediate ITCHING Verified 02/19/18 05:04 velcro Allergy ITCHING Uncoded 02/19/18 05:04 - Medications Medications: Current Medications Alprazolam (Xanax) 0.5 mg PO [facility] PRN Reason: Protocol Stop: 02/26/18 22:01 Last Admin: 02/19/18 23:21 Dose: Not Given Ascorbic Acid (Vitamin C 500 Mg Tab) 1,000 mg PO BID [facility] [place] Last Admin: 02/19/18 18:05 Dose: 1,000 mg Cholecalciferol (Vitamin D) 2,000 intlu PO DAILY [facility] Last Admin: 02/19/18 10:56 Dose: 2,000 intlu Cyanocobalamin (Vitamin B12 1000 Mcg Tab) 1,000 mcg PO DAILY [facility] Last Admin: 02/19/18 10:57 Dose: 1,000 mcg Hydroxyzine HCl (Atarax) 10 mg PO [facility] Last Admin: 02/19/18 21:59 Dose: Not Given Lactulose (Enulose) 20 gm PO BID [facility] Midodrine (Proamatine) 10 mg PO TID [facility] Last Admin: 02/19/18 18:05 Dose: 10 mg Morphine Sulfate (Morphine) 1 mg IVP Q4H PRN PRN Reason: Pain, moderate (4-7) Nadolol (Corgard) 10 mg PO DAILY [facility] Last Admin: 02/19/18 10:57 Dose: 10 mg Ondansetron HCl (Zofran Inj) 4 mg IVP Q6H PRN PRN Reason: Nausea/Vomiting Oxycodone HCl (Oxycodone Immediate Release Tab) 5 mg PO Q8H PRN PRN Reason: Pain, moderate (4-7) Last Admin: 02/20/18 08:22 Dose: 5 mg Pantoprazole Sodium (Protonix Ec Tab) 40 mg PO DAILY [facility] Last Admin: 02/19/18 10:56 Dose: 40 mg Rifaximin (Xifaxan) 550 mg PO BID [facility] PRN Reason: Protocol Last Admin: 02/19/18 18:05 Dose: 550 mg Physical Exam - Constitutional Appears: Well, No Acute Distress - Head Exam Head Exam: ATRAUMATIC, NORMOCEPHALIC - Eye Exam Eye Exam: Normal appearance - ENT Exam ENT Exam: Mucous Membranes Moist, Normal Exam - Neck Exam Neck exam: Positive for: Normal Inspection - Respiratory Exam Respiratory Exam: Clear to Auscultation Bilateral, NORMAL BREATHING PATTERN. absent: Rhonchi, Wheezes, Respiratory Distress - Cardiovascular Exam Cardiovascular Exam: REGULAR RHYTHM, +S1, +S2 - GI/Abdominal Exam GI & Abdominal Exam: Distended, Organomegaly, Tenderness (epigastric area). absent: Firm, Guarding, Hernia, Rebound, Rigid - Extremities Exam Extremities exam: Negative for: joint swelling, pedal edema - Back Exam Back exam: CVA tenderness (R) - Neurological Exam Neurological exam: Alert, Oriented x3 - Psychiatric Exam Psychiatric exam: Normal Affect, Normal Mood - Skin Skin Exam: Dry, Intact, Normal Color, Warm Results - Vital Signs Recent Vital Signs: Last Vital Signs Temp 97.9 F 02/20/18 08:07 Pulse 61 02/20/18 08:07 Resp 20 02/20/18 08:07 BP 118/69 02/20/18 08:07 Pulse Ox 99 02/20/18 08:07 - Labs Result Diagrams: 02/20/18 06:00 02/20/18 06:00 Labs: Laboratory Results - last 24 hr 02/20/18 02/20/18 02/20/18 06:00 06:00 06:00 WBC 5.2 RBC 2.84 L Hgb 9.7 L Hct 29.1 L MCV 102.5 MCH 34.2 MCHC 33.3 RDW 18.2 H Plt Count 119 L MPV 10.0 Gran % 55.5 Lymph % (Auto) 21.2 L Z[place]ata % (Auto) 19.8 H Eos % (Auto) 2.9 Baso % (Auto) 0.6 Gran # 2.89 Lymph # (Auto) 1.1 L Zapata # (Auto) 1.0 H Eos # (Auto) 0.2 Baso # (Auto) 0.03 Sodium 134 Potassium 4.6 Chloride 102 Carbon Dioxide 24 Anion Gap 13 BUN 58 H Creatinine 1.9 H Est GFR ( Amer) 44 Est GFR (Non-Af Amer) 36 Random Glucose 99 Calcium 9.9 Phosphorus 3.8 Magnesium 2.1 Total Bilirubin 2.4 H AST 55 ALT 34 Alkaline Phosphatase 303 H Ammonia 89 H Total Protein 8.2 Albumin 3.1 Globulin 5.1 Albumin/Globulin Ratio 0.6 L Assessment & Plan - Assessment and Plan (Free Text) Assessment: This is a 63yM presenting with confusion. 1. Abd pain 2. Ascities 3. Decompensated Cirrhosis, MELD 24 02/19/2018 4. [id number] vs HRS Plan: -Continue supportive care -Continue lactulose and rifaxamin for HE, 2-3BM daily -KEYUR maybe pre-renal vs HRS, recommend fluid and albumin challenge, nephro cs -Hold diuretics -consulted IR for diagnostic and theraputic tap -follow-up with [facility] and Dr. Paige as an oupt -No plan for EGD, H/H stable d/w Dr. Garcia <Delonte Garcia - Last Filed: 02/20/18 10:09> Meds - Medications Medications: Current Medications Alprazolam (Xanax) 0.5 mg PO HS [facility] PRN Reason: Protocol Stop: 02/26/18 22:01 Last Admin: 02/19/18 23:21 Dose: Not Given Ascorbic Acid (Vitamin C 500 Mg Tab) 1,000 mg PO BID [facility] Last Admin: 02/19/18 18:05 Dose: 1,000 mg Cholecalciferol (Vitamin D) 2,000 intlu PO DAILY [facility] [place] Last Admin: 02/19/18 10:56 Dose: 2,000 intlu Cyanocobalamin (Vitamin B12 1000 Mcg Tab) 1,000 mcg PO DAILY [facility] [place] Last Admin: 02/19/18 10:57 Dose: 1,000 mcg Hydroxyzine HCl (Atarax) 10 mg PO HS [facility] Last Admin: 02/19/18 21:59 Dose: Not Given Lactulose (Enulose) 20 gm PO BID [facility] Midodrine (Proamatine) 10 mg PO TID [facility] Last Admin: 02/19/18 18:05 Dose: 10 mg Morphine Sulfate (Morphine) 1 mg IVP Q4H PRN PRN Reason: Pain, moderate (4-7) Nadolol (Corgard) 10 mg PO DAILY [facility] Last Admin: 02/19/18 10:57 Dose: 10 mg Ondansetron HCl (Zofran Inj) 4 mg IVP Q6H PRN PRN Reason: Nausea/Vomiting Oxycodone HCl (Oxycodone Immediate Release Tab) 5 mg PO Q8H PRN PRN Reason: Pain, moderate (4-7) Last Admin: 02/20/18 08:22 Dose: 5 mg Pantoprazole Sodium (Protonix Ec Tab) 40 mg PO DAILY [facility] [place] Last Admin: 02/19/18 10:56 Dose: 40 mg Rifaximin (Xifaxan) 550 mg PO BID [facility] PRN Reason: Protocol Last Admin: 02/19/18 18:05 Dose: 550 mg Results - Vital Signs Recent Vital Signs: Last Vital Signs Temp 97.9 F 02/20/18 08:07 Pulse 61 02/20/18 08:07 Resp 20 02/20/18 08:07 BP 118/69 02/20/18 08:07 Pulse Ox 99 02/20/18 08:07 - Labs Result Diagrams: 02/20/18 06:00 02/20/18 06:00 Labs: Laboratory Results - last 24 hr 02/20/18 02/20/18 02/20/18 06:00 06:00 06:00 WBC 5.2 RBC 2.84 L Hgb 9.7 L Hct 29.1 L MCV 102.5 MCH 34.2 MCHC 33.3 RDW 18.2 H Plt Count 119 L MPV 10.0 Gran % 55.5 Lymph % (Auto) 21.2 L Zapata % (Auto) 19.8 H Eos % (Auto) 2.9 Baso % (Auto) 0.6 Gran # 2.89 Lymph # (Auto) 1.1 L Zap[place] # (Auto) 1.0 H Eos # (Auto) 0.2 Baso # (Auto) 0.03 Sodium 134 Potassium 4.6 Chloride 102 Carbon Dioxide 24 Anion Gap 13 BUN 58 H Creatinine 1.9 H Est GFR ( Amer) 44 Est GFR (Non-Af Amer) 36 Random Glucose 99 Calcium 9.9 Phosphorus 3.8 Magnesium 2.1 Total Bilirubin 2.4 H AST 55 ALT 34 Alkaline Phosphatase 303 H Ammonia 89 H Total Protein 8.2 Albumin 3.1 Globulin 5.1 Albumin/Globulin Ratio 0.6 L Attending/Attestation - Attestation I have personally seen and examined this patient.: Yes I have fully participated in the care of the patient.: Yes I have reviewed all pertinent clinical information: Yes Notes (Text): 02/20/18 10:03 I have seen and examined patient with GI fellow. Agree with above documentation with the following additions. In brief, this is a 63 year old male with history of decompensated cirrhosis (etiology unknown), CAD, CHF, GERD , CKD, who presents to hospital with complaint of abdominal pain and progressive abdominal girth. He describes chronic back pain in addition to worsening generalized abdominal pain over the past one week which is sharp and 8 /10 intensity, worsened with movement. He reports one episode of non-bloody vomiting earlier this morning but otherwise denies fever/chills, weight loss, rectal bleeding. He was recently seen at [facility] liver transplant clinic and is undergoing follow up care. He had an EGD in September 2017 showing large esophageal varices s/p band ligation. Review of vitals from today are normal. Decompensated cirrhosis, admission MELD 24 CAD CHF GERD CKD Abdominal pain, ascites CT imaging reviewed by me showing cirrhotic liver without focal lesions - Low sodium diet as tolerated - Patient will require large volume paracentesis and albumin replacement therapy - Patient was started on midodrine by medical team, follow up creatinine. Diuretics currently held. - Continue with lactulose and xifaxan therapy for HE prevention - Patient will eventually require repeat EGD for variceal surveillance and screening colonoscopy, can be arranged as outpatient - Patient has scheduled follow up at [facility] within 1 month, recommended to optimize nutritional status - Will continue to monitor patient clinical course
[2018-02-20] MEDS: Pantoprazole 40 mg EC Tab PO SCH (10:04)
[2018-02-20] MEDS: Cholecalciferol 1,000 INTLU TAB PO SCH (10:04)
--- NOTE | 2018-02-20 12:55 | US ---
PROCEDURE: Ultrasound guided paracentesis. HISTORY: Cirrhosis. Recurrent abdominal pain with distention. Needs repeat paracentesis. PHYSICIAN(S): Franko Crespo MD. TECHNIQUE: The relative risks and indications for the procedure were explained to the patient and informed written consent obtained. Sonography of the abdomen was performed in a supine position. This revealed a moderate amount of non-loculated ascites, greatest in the right lower quadrant. A puncture site was selected and the area was prepped and draped in the usual sterile fashion. 1% Xylocaine was used to anesthetize the skin and soft tissues. A 7 [place] paracentesis catheter was trocared into the right lower quadrantand 7000 cc of clear yellow fluid aspirated. No labs were sent. IMPRESSION: Ultrasound-guided paracentesis in the right lower quadrant. 7000 cc of fluid were aspirated.
[2018-02-20 15:50] LABS: BODY FLUID TYPE PERITONEAL/ASCITES
--- NOTE | 2018-02-20 15:51 | CP.PCM.PN ---
<John Murray - Last Filed: 02/20/18 15:47> Subjective - Date & Time of Evaluation Date of Evaluation: 02/20/18 Time of Evaluation: 15:48 - Subjective Subjective: Medicine Progress Note: Patient seen and assessed at bedside. No acute events overnight. Patient reports that his nausea and vomiting have significantly improved since admission. Patient denies fevers, chills, headache, chest pain, SOB, abdominal pain, N/V/D/C, urinary changes, skin changes, or any numbness/tingling/weakness of any extremity. Objective - Vital Signs/Intake and Output Vital Signs (last 24 hours): Temp Pulse Resp BP Pulse Ox 97.9 F 61 20 118/69 99 02/20/18 08:07 02/20/18 10:05 02/20/18 08:07 02/20/18 10:05 02/20/18 08:07 Intake and Output: 02/20/18 02/20/18 06:59 18:59 Intake Total 480 360 Balance 480 360 - Medications Medications: Current Medications Albumin Human (Albumin Human 25% (25 Gm/100 Ml)) 25 gm IV Q6 [facility] Alprazolam (Xanax) 0.5 mg PO [facility] PRN Reason: Protocol Stop: 02/26/18 22:01 Last Admin: 02/19/18 23:21 Dose: Not Given Ascorbic Acid (Vitamin C 500 Mg Tab) 1,000 mg PO BID [facility] Last Admin: 02/20/18 10:05 Dose: 1,000 mg Cholecalciferol (Vitamin D) 2,000 intlu PO DAILY [facility] Last Admin: 02/20/18 10:04 Dose: 2,000 intlu Cyanocobalamin (Vitamin B12 1000 Mcg Tab) 1,000 mcg PO DAILY [facility] Last Admin: 02/20/18 10:05 Dose: 1,000 mcg Hydroxyzine HCl (Atarax) 10 mg PO HS [facility] Last Admin: 02/19/18 21:59 Dose: Not Given Lactulose (Enulose) 20 gm PO BID [facility] Last Admin: 02/20/18 10:04 Dose: 20 gm Midodrine (Proamatine) 10 mg PO TID [facility] Last Admin: 02/20/18 14:07 Dose: 10 mg Morphine Sulfate (Morphine) 1 mg IVP Q4H PRN PRN Reason: Pain, moderate (4-7) Nadolol (Corgard) 10 mg PO DAILY [facility] Last Admin: 02/20/18 10:05 Dose: 10 mg Ondansetron HCl (Zofran Inj) 4 mg IVP Q4 PRN PRN Reason: Nausea/Vomiting Last Admin: 02/20/18 14:07 Dose: 4 mg Oxycodone HCl (Oxycodone Immediate Release Tab) 5 mg PO Q8H PRN PRN Reason: Pain, moderate (4-7) Last Admin: 02/20/18 08:22 Dose: 5 mg Pantoprazole Sodium (Protonix Ec Tab) 40 mg PO DAILY [facility] Last Admin: 02/20/18 10:04 Dose: 40 mg Rifaximin (Xifaxan) 550 mg PO BID [facility] PRN Reason: Protocol Last Admin: 02/20/18 10:04 Dose: 550 mg - Labs Labs: 02/20/18 06:00 02/20/18 06:00 PT 15.1 SECONDS (9.4-12.5) H 02/19/18 05:30 INR 1.31 (0.93-1.08) H 02/19/18 05:30 APTT 36.5 Seconds (25.1-36.5) 02/19/18 05:30 - Constitutional Appears: Non-toxic, No Acute Distress - Head Exam Head Exam: ATRAUMATIC, NORMOCEPHALIC - Eye Exam Eye Exam: EOMI, Normal appearance Pupil Exam: NORMAL ACCOMODATION, PERRL - ENT Exam ENT Exam: Mucous Membranes Moist, Normal Exam - Neck Exam Neck Exam: Full ROM, Normal Inspection - Respiratory Exam Respiratory Exam: Clear to Ausculation Bilateral, NORMAL BREATHING PATTERN. absent: Rales, Rhonchi, Wheezes - Cardiovascular Exam Cardiovascular Exam: REGULAR RHYTHM - GI/Abdominal Exam GI & Abdominal Exam: Distended, Soft, Normal Bowel Sounds. absent: Firm, Guarding, Tenderness, Rebound - Extremities Exam Extremities Exam: Full ROM, Normal Capillary Refill, Normal Inspection. absent : Calf Tenderness, Joint Swelling, Pedal Edema, Tenderness - Back Exam Back Exam: NORMAL INSPECTION - Neurological Exam Neurological Exam: Alert, Awake, Oriented x3 - Psychiatric Exam Psychiatric exam: Normal Affect, Normal Mood - Skin Skin Exam: Dry, Intact, Normal Color, Warm Assessment and Plan - Assessment and Plan (Free Text) Assessment: 63 year old male with a past medical history significant for HTN, diastolic CHF , Atrial Fibrillation s/p cardioversion, CKD stage 3B, non-alcoholic liver cirrhosis of unclear etiology, hepatic encephalopathy, chronic ascites, esophageal varices s/p banding, and GERD who present with back pain, urinary frequency, and N/V. Plan: 1. KEYUR on CKD Stage 3B -CT Abdomen/Pelvis showed tiny nonobstructing bilateral renal calculi -BUN/Creatinine downtrending since admission -Urine osmolality, serum osmolality, and urine electrolytes pending -Continue Midodrine -Nephrology consulted, all recommendations appreciated 2. Non-Alcoholic Liver Cirrhosis with Ascites -CT Abdomen/Pelvis showed large volume abdominal pelvic ascites, cirrhotic liver and splenomegaly -Abdomen Ultrasound showed no interval changes -S/P paracentesis with 7L removed -Continue Albumin 25% 25gm IV Q6 and Normal Saline at 75mls/hr -Continue Lactulose, Rifaximin and Nadolol -Continue Zofran PRN for N/V -GI and IR consulted, all recommendations appreciated 3. Chronic Back Pain -Continue as needed PO Oxycodone and IV Morphine -PT/OT Evaluation and Treatment pending 4. History of Anxiety -Continue home Xanax and Atarax GI Prophylaxis: Protonix DVT Prophylaxis: SCD's Patient see and case discussed with attending, Dr. Rosales. <Felicita Rosales - Last Filed: 02/20/18 17:35> Objective - Vital Signs/Intake and Output Vital Signs (last 24 hours): Temp Pulse Resp BP Pulse Ox 97.5 F L 61 20 120/75 100 02/20/18 14:00 02/20/18 14:00 02/20/18 14:00 02/20/18 14:00 02/20/18 14:00 Intake and Output: 02/20/18 02/20/18 06:59 18:59 Intake Total 480 360 Balance 480 360 - Medications Medications: Current Medications Albumin Human (Albumin Human 25% (25 Gm/100 Ml)) 25 gm IV Q6 [facility] Alprazolam (Xanax) 0.5 mg PO HS [facility] PRN Reason: Protocol Stop: 02/26/18 22:01 Last Admin: 02/19/18 23:21 Dose: Not Given Ascorbic Acid (Vitamin C 500 Mg Tab) 1,000 mg PO BID [facility] Last Admin: 02/20/18 10:05 Dose: 1,000 mg Cholecalciferol (Vitamin D) 2,000 intlu PO DAILY [facility] Last Admin: 02/20/18 10:04 Dose: 2,000 intlu Cyanocobalamin (Vitamin B12 1000 Mcg Tab) 1,000 mcg PO DAILY [facility] Last Admin: 02/20/18 10:05 Dose: 1,000 mcg Hydroxyzine HCl (Atarax) 10 mg PO HS [facility] Last Admin: 02/19/18 21:59 Dose: Not Given Lactulose (Enulose) 20 gm PO BID [facility] Last Admin: 02/20/18 10:04 Dose: 20 gm Midodrine (Proamatine) 10 mg PO TID [facility] Last Admin: 02/20/18 14:07 Dose: 10 mg Morphine Sulfate (Morphine) 1 mg IVP Q4H PRN PRN Reason: Pain, moderate (4-7) Nadolol (Corgard) 10 mg PO DAILY [facility] Last Admin: 02/20/18 10:05 Dose: 10 mg Ondansetron HCl (Zofran Inj) 4 mg IVP Q4 PRN PRN Reason: Nausea/Vomiting Last Admin: 02/20/18 14:07 Dose: 4 mg Oxycodone HCl (Oxycodone Immediate Release Tab) 5 mg PO Q8H PRN PRN Reason: Pain, moderate (4-7) Last Admin: 02/20/18 08:22 Dose: 5 mg Pantoprazole Sodium (Protonix Ec Tab) 40 mg PO DAILY [facility] Last Admin: 02/20/18 10:04 Dose: 40 mg Rifaximin (Xifaxan) 550 mg PO BID [facility] PRN Reason: Protocol Last Admin: 02/20/18 10:04 Dose: 550 mg - Labs Labs: 02/20/18 06:00 02/20/18 06:00 PT 15.1 SECONDS (9.4-12.5) H 02/19/18 05:30 INR 1.31 (0.93-1.08) H 02/19/18 05:30 APTT 36.5 Seconds (25.1-36.5) 02/19/18 05:30 Attending/Attestation - Attestation I have personally seen and examined this patient.: Yes I have fully participated in the care of the patient.: Yes I have reviewed all pertinent clinical information, including history, physical exam and plan: Yes Notes (Text): 02/20/18 17:27 Attending note; Patient seen and examined with resident. Patient is a 62 -year-old malewith PMH of CAD s/p stent, Afib s/p cardioconversion, anemia, GI bleed ,esophageal varices ,acute on chronic kidney disease and Non-alcoholic liver cirrhosis is admitted with abdominal distention and back discomfort. Significant ascites; status post large volume paracentesis. Started on IV albumin. GI evaluation appreciated. Acute on chronic kidney disease; creatinine improved from 2.4 to 1.9. most likely secondary to prerenal. Lasix and Aldactone stopped. Continue midodrine. Nephrology evaluation requested. cryptogenic cirrhosis; GI evaluation appreciated. Patient with a history of GI bleed in the past with banding. Currently no active bleeding. Stable hemoglobin. Tolerating diet. Continue on nadolol. history of Hepatic encephalopathy; continue lactulose and rifaximin. Patient has appointment with [facility] in 2 weeks. Upon discharge the patient will follow-up with PMD Dr. Bishop.
[2018-02-20 16:28] LABS: BF GROSS APPEARANCE CLEAR (CLEAR)
[2018-02-20 16:29] LABS: BODY FLUID TOTAL COUNT 100 (0-0)
[2018-02-20] MEDS ORDERED: Albumin Human 25% (12.5 gm/50 ml) IV SCH (18:00)
[2018-02-20] MEDS: Albumin Human 25% (25 gm/100 ml) IV SCH ×2 (18:03→23:29)
[2018-02-20] MEDS: Morphine 2 mg/2 mL syringe IVP PRN ×2 (18:04→22:22)
[2018-02-20] MEDS ORDERED: Sodium Chloride 0.9% 1,000 ML IV SCH (20:45)
--- NOTE | 2018-02-21 02:50 | CON ---
DATE: 02/20/2018 REASON FOR CONSULTATION: Acute kidney injury. HISTORY OF PRESENTING ILLNESS: A 63-year-old male known to me from prior evaluation, patient was admitted yesterday with complaints of shortness of breath, abdominal distention, confusion, altered mental status. Patient has a history of nonalcoholic liver cirrhosis, ascites, esophageal dialysis. Patient was found to have an elevated creatinine of 2.4, BUN of 75, which is higher than his baseline of 45 over 1.6. Hence consultation is requested. Patient has had multiple episodes of acute kidney injury in the setting of dehydration, decreased p.o. intake, aggressive paracentesis. PAST MEDICAL AND SURGICAL HISTORY: Cirrhosis of the liver, esophageal dialysis, history of GI bleed, ascites, hepatic encephalopathy, CAD, status post stent, atrial fibrillation status post cardioversion, hypertension, GERD, CHF. FAMILY HISTORY: Noncontributory. SOCIAL HISTORY: No smoking, no alcohol use, no IV drug abuse at present. Patient has a history of smoking in the past. REVIEW OF SYSTEMS: All systems are reviewed, pertinent positives as mentioned in the history of presenting illness, rest unremarkable. ALLERGIES: NO KNOWN DRUG ALLERGIES. MEDICATIONS: , rifaximine, Protonix, Zofran, nadolol, ProAmatine, lactulose, Xanax, ascorbic acid. PHYSICAL EXAMINATION: GENERAL: Elderly male, lying in bed, currently in no acute distress. Patient has had paracentesis. VITAL SIGNS: Blood pressure 120/75, heart rate 61, respiratory 20, temperature 97.5. HEENT: Normocephalic, atraumatic, positive pallor. NECK: Supple, no JVD. LUNGS: Bilateral equal air entry, bilateral equal expansion, no rales. CARDIAC: S1, S2, regular rate and rhythm. No murmur, no rub. ABDOMEN: Soft, nondistended, nontender, bowel sounds present. EXTREMITIES: No lower extremity edema. INTAKE AND OUTPUT: Not charted. LABORATORY DATA: WBC 5.2, hemoglobin 9.7, hematocrit 29, platelets 119. Sodium 134, potassium 4.6, chloride 102, CO2 24, BUN 58, creatinine 1.9, glucose 99, calcium 9.9, phosphorus 3.8, magnesium 2.1, AST 55, ALT 34, albumin 3.1, corrected calcium is 10.5, ammonia 89. Peritoneal fluid clear, rbc's 97, wbc's 84, neutrophils 13. ASSESSMENT: 1. Decompensated cirrhosis. 2. Ascites. 3. Prerenal azotemia superimposed on chronic kidney disease, stage IV. 4. History of coronary artery disease. 5. History of hypertension. PLAN: 1. Push p.o. fluids. 2. Avoid hypotension. 3. Continue midodrine. 4. Monitor urine output. 5. Monitor daily labs. Thank you for the courtesy of this consultation. Will follow this patient closely with you. Jami Resendiz MD
[2018-02-21] MEDS: Albumin Human 25% (25 gm/100 ml) IV SCH ×4 (05:43→23:58)
[2018-02-21 07:09] LABS: BASO # 0.03 K/mm3 (0.0-2.0); BASO % 0.6 % (0.0-3.0); EOS # 0.2 (0.0-0.7); EOS % 2.8 % (1.5-5.0); GRAN # 3.08 (1.4-6.5); GRAN % 56.7 % (50.0-68.0); HEMOGLOBIN 9.6 g/dL (14.0-18.0); LYMPH # 0.9 (1.2-3.4); LYMPH % 16.8 % (22.0-35.0); MEAN CELL VOLUME 102.5 fl (80.0-105.0); MEAN CORPUSCULAR HEMOGLOBIN 34.7 pg (25.0-35.0); MEAN CORPUSCULAR HGB CONC 33.8 g/dl (31.0-37.0); MEAN PLATELET VOLUME 9.4 fl (7.0-11.0); MONO # 1.3 (0.1-0.6); MONO % 23.1 % (1.0-6.0); RBC 2.77 10^6/uL (3.5-6.1); RED CELL DISTRIBUTION WIDTH 17.9 % (11.5-14.5); WHITE BLOOD COUNT 5.4 10^3/ul (4.5-11.0)
[2018-02-21 07:12] LABS: ALB/GLOB RATIO 0.7 (1.1-1.8); ALBUMIN 3.6 g/dL (3.0-4.8)
[2018-02-21] MEDS: Pantoprazole 40 mg EC Tab PO SCH (10:38)
[2018-02-21] MEDS: Cholecalciferol 1,000 INTLU TAB PO SCH (10:38)
--- NOTE | 2018-02-21 11:10 | CP.PCM.PN ---
<Fuentes Dixon - Last Filed: 02/21/18 11:15> Subjective - Date & Time of Evaluation Date of Evaluation: 02/21/18 Time of Evaluation: 07:00 - Subjective Subjective: PGY4 GI Follow-up Pt seen and examined bedside Abd pain improving Denies any fever, chills or diaphoresis ROS: 12 point ROS conducted, neg other than above Objective - Vital Signs/Intake and Output Vital Signs (last 24 hours): Temp Pulse Resp BP Pulse Ox 98 F 66 18 108/60 98 02/21/18 08:08 02/21/18 10:36 02/21/18 08:08 02/21/18 10:36 02/21/18 08:08 Intake and Output: 02/21/18 02/21/18 06:59 18:59 Intake Total 2120 Balance 2120 - Medications Medications: Current Medications Albumin Human (Albumin Human 25% (25 Gm/100 Ml)) 25 gm IV Q6 [facility] Last Admin: 02/21/18 05:43 Dose: 25 gm Alprazolam (Xanax) 0.5 mg PO HS PRN; Protocol PRN Reason: Anxiety Stop: 02/26/18 22:01 Ascorbic Acid (Vitamin C 500 Mg Tab) 1,000 mg PO BID [facility] Last Admin: 02/21/18 10:36 Dose: 1,000 mg Cholecalciferol (Vitamin D) 2,000 intlu PO DAILY [facility] Last Admin: 02/21/18 10:38 Dose: 2,000 intlu Cyanocobalamin (Vitamin B12 1000 Mcg Tab) 1,000 mcg PO DAILY [facility] Last Admin: 02/21/18 10:38 Dose: 1,000 mcg Hydroxyzine HCl (Atarax) 10 mg PO HS [facility] Last Admin: 02/20/18 21:04 Dose: Not Given Sodium Chloride (Sodium Chloride 0.9%) 1,000 mls @ 75 mls/hr IV .[id number] [facility] Last Admin: 02/20/18 22:26 Dose: 75 mls/hr Lactulose (Enulose) 20 gm PO BID [facility] Last Admin: 02/21/18 10:35 Dose: 20 gm Midodrine (Proamatine) 10 mg PO TID [facility] Last Admin: 02/21/18 10:36 Dose: 10 mg Morphine Sulfate (Morphine) 1 mg IVP Q4H PRN PRN Reason: Pain, moderate (4-7) Last Admin: 02/20/18 22:22 Dose: 1 mg Nadolol (Corgard) 10 mg PO DAILY [facility] Last Admin: 02/21/18 10:36 Dose: 10 mg Ondansetron HCl (Zofran Inj) 4 mg IVP Q4 PRN PRN Reason: Nausea/Vomiting Last Admin: 02/21/18 08:29 Dose: 4 mg Oxycodone HCl (Oxycodone Immediate Release Tab) 5 mg PO Q8H PRN PRN Reason: Pain, moderate (4-7) Last Admin: 02/20/18 08:22 Dose: 5 mg Pantoprazole Sodium (Protonix Ec Tab) 40 mg PO DAILY [facility] Last Admin: 02/21/18 10:38 Dose: 40 mg Rifaximin (Xifaxan) 550 mg PO BID [facility] PRN Reason: Protocol Last Admin: 02/21/18 10:36 Dose: 550 mg Tamsulosin HCl (Flomax) 0.4 mg PO DAILY [facility] Last Admin: 02/21/18 10:36 Dose: 0.4 mg - Labs Labs: 02/21/18 06:44 02/21/18 06:44 PT 15.1 SECONDS (9.4-12.5) H 02/19/18 05:30 INR 1.31 (0.93-1.08) H 02/19/18 05:30 APTT 36.5 Seconds (25.1-36.5) 02/19/18 05:30 - Constitutional Appears: Well, No Acute Distress - Head Exam Head Exam: ATRAUMATIC, NORMOCEPHALIC - Eye Exam Eye Exam: Normal appearance - ENT Exam ENT Exam: Mucous Membranes Moist, Normal Exam - Neck Exam Neck Exam: Normal Inspection - Respiratory Exam Respiratory Exam: Clear to Ausculation Bilateral, NORMAL BREATHING PATTERN. absent: Rales, Rhonchi, Wheezes, Respiratory Distress - Cardiovascular Exam Cardiovascular Exam: REGULAR RHYTHM, +S1, +S2 - GI/Abdominal Exam GI & Abdominal Exam: Distended, Soft, Normal Bowel Sounds, Organomegaly. absent : Guarding, Rigid, Tenderness - Extremities Exam Extremities Exam: absent: Joint Swelling, Pedal Edema - Neurological Exam Neurological Exam: Alert, Awake, Oriented x3 - Psychiatric Exam Psychiatric exam: Normal Affect, Normal Mood - Skin Skin Exam: Dry, Intact, Normal Color, Warm Assessment and Plan - Assessment and Plan (Free Text) Assessment: This is a 63yM presenting with abdominal distention. 1. Abd pain 2. Ascities 3. Decompensated Cirrhosis, MELD 24 02/19/2018 4. XNT-cyu-cleab, responded to fluids Plan: -Continue supportive care -Continue lactulose and rifaxamin for HE, 2-3BM daily -KEYUR, continue albumin for 1 more day, not a candidate for diuretic therapy, or TIPS (2/2 HE) -will need routine abd paracentesis, when symptomatic -adhere to low sodium diet -ascities fluid PMN <250, unlikely SBP -follow-up with [facility] and Dr. Paige as an oupt -will need an EGD as an oupt and colonoscopy will d/w Dr. Paige <Pedro Paige - Last Filed: 02/21/18 19:36> Objective - Vital Signs/Intake and Output Vital Signs (last 24 hours): Temp Pulse Resp BP Pulse Ox 98 F 66 18 108/60 98 02/21/18 08:08 02/21/18 10:36 02/21/18 08:08 02/21/18 10:36 02/21/18 08:08 Intake and Output: 02/21/18 02/22/18 18:59 06:59 Intake Total 960 Balance 960 - Medications Medications: Current Medications Albumin Human (Albumin Human 25% (25 Gm/100 Ml)) 25 gm IV Q6 [facility] Last Admin: 02/21/18 17:53 Dose: 25 gm Alprazolam (Xanax) 0.5 mg PO HS PRN; Protocol PRN Reason: Anxiety Stop: 02/26/18 22:01 Ascorbic Acid (Vitamin C 500 Mg Tab) 1,000 mg PO BID [facility] Last Admin: 02/21/18 17:54 Dose: 1,000 mg Cholecalciferol (Vitamin D) 2,000 intlu PO DAILY [facility] Last Admin: 02/21/18 10:38 Dose: 2,000 intlu Cyanocobalamin (Vitamin B12 1000 Mcg Tab) 1,000 mcg PO DAILY [facility] Last Admin: 02/21/18 10:38 Dose: 1,000 mcg Hydroxyzine HCl (Atarax) 10 mg PO HS [facility] Last Admin: 02/20/18 21:04 Dose: Not Given Lactulose (Enulose) 20 gm PO BID [facility] Last Admin: 02/21/18 17:53 Dose: 20 gm Midodrine (Proamatine) 10 mg PO TID [facility] Last Admin: 02/21/18 17:54 Dose: 10 mg Morphine Sulfate (Morphine) 1 mg IVP Q4H PRN PRN Reason: Pain, moderate (4-7) Last Admin: 02/20/18 22:22 Dose: 1 mg Nadolol (Corgard) 10 mg PO DAILY [facility] Last Admin: 02/21/18 10:36 Dose: 10 mg Ondansetron HCl (Zofran Inj) 4 mg IVP Q4 PRN PRN Reason: Nausea/Vomiting Last Admin: 02/21/18 17:54 Dose: 4 mg Oxycodone HCl (Oxycodone Immediate Release Tab) 5 mg PO Q8H PRN PRN Reason: Pain, moderate (4-7) Last Admin: 02/20/18 08:22 Dose: 5 mg Pantoprazole Sodium (Protonix Ec Tab) 40 mg PO DAILY [facility] Last Admin: 02/21/18 10:38 Dose: 40 mg Rifaximin (Xifaxan) 550 mg PO BID [facility] PRN Reason: Protocol Last Admin: 02/21/18 10:36 Dose: 550 mg Tamsulosin HCl (Flomax) 0.4 mg PO DAILY [facility] Last Admin: 02/21/18 10:36 Dose: 0.4 mg - Labs Labs: 02/21/18 06:44 02/21/18 06:44 PT 15.1 SECONDS (9.4-12.5) H 02/19/18 05:30 INR 1.31 (0.93-1.08) H 02/19/18 05:30 APTT 36.5 Seconds (25.1-36.5) 02/19/18 05:30 Attending/Attestation - Attestation I have personally seen and examined this patient.: Yes I have fully participated in the care of the patient.: Yes I have reviewed all pertinent clinical information, including history, physical exam and plan: Yes Notes (Text): 02/21/18 19:35 63 year old male with cirrhosis c/b ascites and HE admitted with abdominal pain. Mildly improved. Continue lactulose/rifaxamin. Paracentesis negative for sbp. Being evaluated for transplant at [facility]. Outpatient follow up with them.
--- NOTE | 2018-02-21 11:42 | CP.PCM.PN ---
<John Murray - Last Filed: 02/21/18 11:31> Subjective - Date & Time of Evaluation Date of Evaluation: 02/21/18 Time of Evaluation: 11:31 - Subjective Subjective: Medicine Progress Note: Patient seen and assessed at bedside. No acute events overnight. Patient reports that his back pain was improved after ascitic fluid was drained but that it worsened intermittently overnight. He does note that the as needed pain medication resolves this pain. Patient denies fevers, chills, headache, chest pain, SOB, abdominal pain, N/V/D/C, urinary changes, skin changes, or any numbness/tingling of any extremity. Objective - Vital Signs/Intake and Output Vital Signs (last 24 hours): Temp Pulse Resp BP Pulse Ox 98 F 66 18 108/60 98 02/21/18 08:08 02/21/18 10:36 02/21/18 08:08 02/21/18 10:36 02/21/18 08:08 Intake and Output: 02/21/18 02/21/18 06:59 18:59 Intake Total 2120 Balance 2120 - Medications Medications: Current Medications Albumin Human (Albumin Human 25% (25 Gm/100 Ml)) 25 gm IV Q6 [facility] Last Admin: 02/21/18 05:43 Dose: 25 gm Alprazolam (Xanax) 0.5 mg PO HS PRN; Protocol PRN Reason: Anxiety Stop: 02/26/18 22:01 Ascorbic Acid (Vitamin C 500 Mg Tab) 1,000 mg PO BID [facility] Last Admin: 02/21/18 10:36 Dose: 1,000 mg Cholecalciferol (Vitamin D) 2,000 intlu PO DAILY [facility] Last Admin: 02/21/18 10:38 Dose: 2,000 intlu Cyanocobalamin (Vitamin B12 1000 Mcg Tab) 1,000 mcg PO DAILY [facility] Last Admin: 02/21/18 10:38 Dose: 1,000 mcg Hydroxyzine HCl (Atarax) 10 mg PO HS [facility] Last Admin: 02/20/18 21:04 Dose: Not Given Sodium Chloride (Sodium Chloride 0.9%) 1,000 mls @ 75 mls/hr IV .[id number] [facility] Last Admin: 02/20/18 22:26 Dose: 75 mls/hr Lactulose (Enulose) 20 gm PO BID [facility] Last Admin: 02/21/18 10:35 Dose: 20 gm Midodrine (Proamatine) 10 mg PO TID [facility] Last Admin: 02/21/18 10:36 Dose: 10 mg Morphine Sulfate (Morphine) 1 mg IVP Q4H PRN PRN Reason: Pain, moderate (4-7) Last Admin: 02/20/18 22:22 Dose: 1 mg Nadolol (Corgard) 10 mg PO DAILY [facility] Last Admin: 02/21/18 10:36 Dose: 10 mg Ondansetron HCl (Zofran Inj) 4 mg IVP Q4 PRN PRN Reason: Nausea/Vomiting Last Admin: 02/21/18 08:29 Dose: 4 mg Oxycodone HCl (Oxycodone Immediate Release Tab) 5 mg PO Q8H PRN PRN Reason: Pain, moderate (4-7) Last Admin: 02/20/18 08:22 Dose: 5 mg Pantoprazole Sodium (Protonix Ec Tab) 40 mg PO DAILY [facility] Last Admin: 02/21/18 10:38 Dose: 40 mg Rifaximin (Xifaxan) 550 mg PO BID [facility] PRN Reason: Protocol Last Admin: 02/21/18 10:36 Dose: 550 mg Tamsulosin HCl (Flomax) 0.4 mg PO DAILY [facility] Last Admin: 02/21/18 10:36 Dose: 0.4 mg - Labs Labs: 02/21/18 06:44 02/21/18 06:44 PT 15.1 SECONDS (9.4-12.5) H 02/19/18 05:30 INR 1.31 (0.93-1.08) H 02/19/18 05:30 APTT 36.5 Seconds (25.1-36.5) 02/19/18 05:30 - Constitutional Appears: Non-toxic, No Acute Distress - Head Exam Head Exam: ATRAUMATIC, NORMOCEPHALIC - Eye Exam Eye Exam: EOMI, Normal appearance Pupil Exam: NORMAL ACCOMODATION, PERRL - ENT Exam ENT Exam: Mucous Membranes Moist, Normal Exam - Neck Exam Neck Exam: Full ROM, Normal Inspection - Respiratory Exam Respiratory Exam: Clear to Ausculation Bilateral, NORMAL BREATHING PATTERN. absent: Accessory Muscle Use, Decreased Breath Sounds, Rales, Rhonchi, Wheezes, Respiratory Distress - Cardiovascular Exam Cardiovascular Exam: REGULAR RHYTHM - GI/Abdominal Exam GI & Abdominal Exam: Soft, Normal Bowel Sounds. absent: Distended, Firm, Guarding, Rigid, Tenderness, Rebound Additional comments: Wound dressing clean, dry and intact - Extremities Exam Extremities Exam: Full ROM, Normal Capillary Refill, Normal Inspection. absent : Calf Tenderness, Joint Swelling, Pedal Edema, Tenderness - Back Exam Back Exam: Full ROM, paraspinal tenderness (T6-T12 region). absent: CVA tenderness (L), CVA tenderness (R), rash noted - Neurological Exam Neurological Exam: Alert, Awake, Oriented x3 - Psychiatric Exam Psychiatric exam: Normal Affect, Normal Mood - Skin Skin Exam: Dry, Intact, Normal Color, Warm Assessment and Plan - Assessment and Plan (Free Text) Assessment: 63 year old male with a past medical history significant for HTN, diastolic CHF , Atrial Fibrillation s/p cardioversion, CKD stage 3B, non-alcoholic liver cirrhosis of unclear etiology, hepatic encephalopathy, chronic ascites, esophageal varices s/p banding, and GERD who present with back pain, urinary frequency, and N/V. Patient had seven liters of ascitic fluid drained by IR on 02/20. Plan: 1. Prerenal Azotemia on CKD Stage 3B -CT Abdomen/Pelvis showed tiny nonobstructing bilateral renal calculi -BUN/Creatinine downtrending since admission -Continue Midodrine and Normal Saline at 75mls/hr -Nephrology consulted, all recommendations appreciated 2. Non-Alcoholic Liver Cirrhosis with Ascites -CT Abdomen/Pelvis showed large volume abdominal pelvic ascites, cirrhotic liver and splenomegaly -Abdomen Ultrasound showed no interval changes -S/P paracentesis with 7L removed with analytic studies pending completion -Continue Albumin 25% 25gm IV Q6 and Normal Saline at 75mls/hr -Continue Lactulose, Rifaximin and Nadolol -Continue Zofran PRN for N/V -Radio Maintainer referral for nutritional supplementation -Low sodium/fluid restricted heart healthy diet -GI and IR consulted, all recommendations appreciated -Patient to continue scheduled follow up with [facility] in 2 weeks 3. Chronic Back Pain -Continue as needed PO Oxycodone and IV Morphine -PT/OT Evaluation and Treatment pending 4. History of Anxiety -Continue home Xanax and Atarax GI Prophylaxis: Protonix DVT Prophylaxis: SCD's Patient see and case discussed with attending, Dr. Rosales. <Felicita Rosales - Last Filed: 02/21/18 15:14> Objective - Vital Signs/Intake and Output Vital Signs (last 24 hours): Temp Pulse Resp BP Pulse Ox 98 F 66 18 108/60 98 02/21/18 08:08 02/21/18 10:36 02/21/18 08:08 02/21/18 10:36 02/21/18 08:08 Intake and Output: 02/21/18 02/21/18 06:59 18:59 Intake Total 2120 960 Balance 2120 960 - Medications Medications: Current Medications Albumin Human (Albumin Human 25% (25 Gm/100 Ml)) 25 gm IV Q6 [facility] Last Admin: 02/21/18 12:49 Dose: 25 gm Alprazolam (Xanax) 0.5 mg PO HS PRN; Protocol PRN Reason: Anxiety Stop: 02/26/18 22:01 Ascorbic Acid (Vitamin C 500 Mg Tab) 1,000 mg PO BID [facility] Last Admin: 02/21/18 10:36 Dose: 1,000 mg Cholecalciferol (Vitamin D) 2,000 intlu PO DAILY [facility] Last Admin: 02/21/18 10:38 Dose: 2,000 intlu Cyanocobalamin (Vitamin B12 1000 Mcg Tab) 1,000 mcg PO DAILY [facility] Last Admin: 02/21/18 10:38 Dose: 1,000 mcg Hydroxyzine HCl (Atarax) 10 mg PO HS [facility] Last Admin: 02/20/18 21:04 Dose: Not Given Lactulose (Enulose) 20 gm PO BID [facility] Last Admin: 02/21/18 10:35 Dose: 20 gm Midodrine (Proamatine) 10 mg PO TID [facility] Last Admin: 02/21/18 13:24 Dose: 10 mg Morphine Sulfate (Morphine) 1 mg IVP Q4H PRN PRN Reason: Pain, moderate (4-7) Last Admin: 02/20/18 22:22 Dose: 1 mg Nadolol (Corgard) 10 mg PO DAILY [facility] Last Admin: 02/21/18 10:36 Dose: 10 mg Ondansetron HCl (Zofran Inj) 4 mg IVP Q4 PRN PRN Reason: Nausea/Vomiting Last Admin: 02/21/18 12:00 Dose: 4 mg Oxycodone HCl (Oxycodone Immediate Release Tab) 5 mg PO Q8H PRN PRN Reason: Pain, moderate (4-7) Last Admin: 02/20/18 08:22 Dose: 5 mg Pantoprazole Sodium (Protonix Ec Tab) 40 mg PO DAILY [facility] Last Admin: 02/21/18 10:38 Dose: 40 mg Rifaximin (Xifaxan) 550 mg PO BID [facility] PRN Reason: Protocol Last Admin: 02/21/18 10:36 Dose: 550 mg Tamsulosin HCl (Flomax) 0.4 mg PO DAILY [facility] Last Admin: 02/21/18 10:36 Dose: 0.4 mg - Labs Labs: 02/21/18 06:44 02/21/18 06:44 PT 15.1 SECONDS (9.4-12.5) H 02/19/18 05:30 INR 1.31 (0.93-1.08) H 02/19/18 05:30 APTT 36.5 Seconds (25.1-36.5) 02/19/18 05:30 Attending/Attestation - Attestation I have personally seen and examined this patient.: Yes I have fully participated in the care of the patient.: Yes I have reviewed all pertinent clinical information, including history, physical exam and plan: Yes Notes (Text): 02/21/18 15:10 Attending note; Patient seen and examined with resident. Patient is a 62 -year-old malewith PMH of CAD s/p stent, Afib s/p cardioconversion, anemia, GI bleed ,esophageal varices ,acute on chronic kidney disease and Non-alcoholic liver cirrhosis is admitted with abdominal distention and back discomfort. Significant ascites; status post large volume paracentesis. Started on IV albumin. blood pressure is improving. Dizziness is improving. Complaining of nausea and vomiting; continue Zofran. Dietitian evaluation ordered. Nutrition supplement ordered. Acute on chronic kidney disease; creatinine improved from 2.4 to 1.6. most likely secondary to prerenal. Continue midodrine. Nephrology evaluation appreciated. cryptogenic cirrhosis; Patient with a history of GI bleed in the past with banding. Currently no active bleeding. Continue on nadolol. history of Hepatic encephalopathy; continue lactulose and rifaximin. physical therapy evaluation requested. Patient has appointment with [facility] in 2 weeks. Upon discharge the patient will follow-up with PMD Dr. Bishop.
--- NOTE | 2018-02-21 15:25 | PN ---
DATE: 02/21/2018 SUBJECTIVE: The patient is seen lying in bed. He is awake, he is alert, he is comfortable. He still has abdominal pain. He denies any nausea or vomiting. PHYSICAL EXAMINATION: GENERAL: Thinly built elderly male, lying in bed. VITAL SIGNS: Blood pressure 108/60, heart rate 66, respiratory rate 18, temperature 98. HEENT: Normocephalic, atraumatic. Positive pallor. NECK: Supple. No JVD. LUNGS: Bilateral equal air entry, bilateral equal expansion. No rales. CARDIAC: S1 and S2. Regular rate and rhythm. No murmur, no rub. ABDOMEN: Distended, soft, positive tenderness, diffuse, bowel sounds present. EXTREMITIES: No lower extremity edema. INTAKE AND OUTPUT: 2480/not charted. LABORATORY DATA: WBC 5.4, hemoglobin 9.6, hematocrit 28, platelets 102. Sodium 136, potassium 4.5, chloride 104, CO2 of 22, BUN 44, creatinine 1.6, glucose 93, calcium 10.0, total bili 2.5, AST 58, ALT 32, albumin 3.6. CURRENT MEDICATIONS: Albumin 25 g IV every 6 given yesterday, Atarax 10 mg, Corgard 10, Enulose 20 b.i.d., Flomax 0.4, morphine, oxycodone, midodrine 10 t.i.d., Protonix, normal saline at 75. ASSESSMENT: 1. Acute kidney injury superimposed on chronic kidney disease stage 3 in the setting for large volume paracentesis, dehydration. 2. Resolving acute kidney injury. 3. Nonalcoholic cirrhosis of the liver. 4. Recurrent ascites. 5. Hypotension. 6. Coronary artery disease. PLAN: 1. Discontinue IV fluids. Renal function is much improved. 2. Push p.o. intake. 3. Avoid nephrotoxins. 4. Continue midodrine. Jami Resendiz MD
[2018-02-21] MEDS: Morphine 2 mg/2 mL syringe IVP PRN (21:21)
[2018-02-22] MEDS: Albumin Human 25% (25 gm/100 ml) IV SCH (06:10)
[2018-02-22] MEDS: Morphine 2 mg/2 mL syringe IVP PRN (06:10)
[2018-02-22 06:33] LABS: ALB/GLOB RATIO 0.9 (1.1-1.8); ALBUMIN 4.1 g/dL (3.0-4.8); CALCIUM 10.8 mg/dL (8.4-10.5)
[2018-02-22 06:49] LABS: INR 1.47 (0.93-1.08)
[2018-02-22 07:36] LABS: BASO # 0.02 K/mm3 (0.0-2.0); BASO % 0.4 % (0.0-3.0); EOS # 0.1 (0.0-0.7); EOS % 2.4 % (1.5-5.0); GRAN # 3.05 (1.4-6.5); GRAN % 57.3 % (50.0-68.0); HEMOGLOBIN 8.8 g/dL (14.0-18.0); LYMPH % 17.8 % (22.0-35.0); MEAN CELL VOLUME 101.2 fl (80.0-105.0); MEAN CORPUSCULAR HGB CONC 33.6 g/dl (31.0-37.0); MEAN PLATELET VOLUME 10.3 fl (7.0-11.0); MONO # 1.2 (0.1-0.6); MONO % 22.1 % (1.0-6.0); PLATELET COUNT 105 10^3/uL (120.0-450.0); RBC 2.59 10^6/uL (3.5-6.1); RED CELL DISTRIBUTION WIDTH 17.5 % (11.5-14.5); WHITE BLOOD COUNT 5.3 10^3/ul (4.5-11.0)
--- NOTE | 2018-02-22 07:52 | CP.PCM.PN ---
Subjective - Date & Time of Evaluation Date of Evaluation: 02/22/18 Time of Evaluation: 07:15 - Subjective Subjective: PGY4 GI Progress Note Pt seen and examined bedside Still has abd pain Tender on palpation decreased appetite +BM ROS: 12 point ROS conducted, neg other than above Objective - Vital Signs/Intake and Output Vital Signs (last 24 hours): Temp Pulse Resp BP Pulse Ox 99 F 76 98 H 106/62 98 02/21/18 23:15 02/21/18 23:15 02/21/18 23:15 02/21/18 23:15 02/21/18 23:15 Intake and Output: 02/22/18 02/22/18 06:59 18:59 Intake Total 780 Balance 780 - Medications Medications: Current Medications Alprazolam (Xanax) 0.5 mg PO HS PRN; Protocol PRN Reason: Anxiety Stop: 02/26/18 22:01 Ascorbic Acid (Vitamin C 500 Mg Tab) 1,000 mg PO BID [facility] Last Admin: 02/21/18 17:54 Dose: 1,000 mg Cholecalciferol (Vitamin D) 2,000 intlu PO DAILY [facility] Last Admin: 02/21/18 10:38 Dose: 2,000 intlu Cyanocobalamin (Vitamin B12 1000 Mcg Tab) 1,000 mcg PO DAILY [facility] Last Admin: 02/21/18 10:38 Dose: 1,000 mcg Hydroxyzine HCl (Atarax) 10 mg PO HS [facility] Last Admin: 02/21/18 21:16 Dose: Not Given Lactulose (Enulose) 20 gm PO BID [facility] Last Admin: 02/21/18 17:53 Dose: 20 gm Midodrine (Proamatine) 10 mg PO TID [facility] Last Admin: 02/21/18 17:54 Dose: 10 mg Morphine Sulfate (Morphine) 1 mg IVP Q4H PRN PRN Reason: Pain, moderate (4-7) Last Admin: 02/22/18 06:10 Dose: 1 mg Nadolol (Corgard) 10 mg PO DAILY [facility] Last Admin: 02/21/18 10:36 Dose: 10 mg Ondansetron HCl (Zofran Inj) 4 mg IVP Q4 PRN PRN Reason: Nausea/Vomiting Last Admin: 02/22/18 01:25 Dose: 4 mg Oxycodone HCl (Oxycodone Immediate Release Tab) 5 mg PO Q8H PRN PRN Reason: Pain, moderate (4-7) Last Admin: 02/20/18 08:22 Dose: 5 mg Pantoprazole Sodium (Protonix Ec Tab) 40 mg PO DAILY [facility] Last Admin: 02/21/18 10:38 Dose: 40 mg Rifaximin (Xifaxan) 550 mg PO BID [facility] PRN Reason: Protocol Last Admin: 02/21/18 17:55 Dose: 550 mg Tamsulosin HCl (Flomax) 0.4 mg PO DAILY [facility] Last Admin: 02/21/18 10:36 Dose: 0.4 mg - Labs Labs: 02/22/18 06:00 02/22/18 06:00 PT 17.0 SECONDS (9.4-12.5) H 02/22/18 06:00 INR 1.47 (0.93-1.08) H 02/22/18 06:00 APTT 36.5 Seconds (25.1-36.5) 02/19/18 05:30 - Constitutional Appears: Well, No Acute Distress - Head Exam Head Exam: ATRAUMATIC, NORMOCEPHALIC - Eye Exam Eye Exam: Normal appearance - ENT Exam ENT Exam: Mucous Membranes Moist, Normal Exam - Neck Exam Neck Exam: Normal Inspection - Respiratory Exam Respiratory Exam: Clear to Ausculation Bilateral, NORMAL BREATHING PATTERN. absent: Rales, Rhonchi, Wheezes, Respiratory Distress - GI/Abdominal Exam GI & Abdominal Exam: Soft, Tenderness, Normal Bowel Sounds. absent: Firm, Guarding, Rigid, Hyperactive Bowel Sounds, Organomegaly - Extremities Exam Extremities Exam: absent: Joint Swelling, Pedal Edema - Neurological Exam Neurological Exam: Alert, Awake, Oriented x3 - Psychiatric Exam Psychiatric exam: Normal Affect, Normal Mood - Skin Skin Exam: Dry, Intact, Normal Color, Warm Assessment and Plan - Assessment and Plan (Free Text) Assessment: This is a 63yM presenting with abdominal distention. 1. Abd pain 2. Ascities s/p paracentesis 7L 3. Decompensated Cirrhosis, MELD 19 02/22/2018 4. [id number], responded to fluids Plan: -Continue supportive care -Continue lactulose and rifaxamin for HE, 2-3BM daily -KEYUR, continue albumin for 1 more day, not a candidate for diuretic therapy, or TIPS (2/2 HE) -will need routine abd paracentesis, when symptomatic -adhere to low sodium diet -ascities fluid PMN <250, unlikely SBP -follow-up with [facility] and Dr. Paige as an oupt -will need an EGD as an oupt and colonoscopy will d/w Dr. Hodgson
[2018-02-22 08:19] LABS: EOSINOPHIL 2 % (0.0-3.0); LYMPHOCYTE 18 % (22.0-35.0); MONOCYTE 14 % (1.0-6.0); MYELOCYTE 1 %; NEUTROPHIL 65 % (50.0-70.0); PLATELET ESTIMATE LOW (NORMAL)
[2018-02-22] MEDS: Cholecalciferol 1,000 INTLU TAB PO SCH (09:50)
[2018-02-22] MEDS: Pantoprazole 40 mg EC Tab PO SCH (09:50)
--- NOTE | 2018-02-22 14:26 | CP.PCM.PN ---
<John Murray - Last Filed: 02/22/18 14:23> Subjective - Date & Time of Evaluation Date of Evaluation: 02/22/18 Time of Evaluation: 14:23 - Subjective Subjective: Medicine Progress Note: Patient seen and assessed at bedside. No acute events overnight. Patient reports that he continues to have back pain and nausea but that these have improved since admission. Patient denies fevers, chills, headache, chest pain, SOB, abdominal pain, V/D/C, urinary changes, skin changes, or any numbness/ tingling of any extremity. Objective - Vital Signs/Intake and Output Vital Signs (last 24 hours): Temp Pulse Resp BP Pulse Ox 98.8 F 75 20 145/76 96 02/22/18 08:12 02/22/18 09:50 02/22/18 08:12 02/22/18 09:50 02/22/18 08:12 Intake and Output: 02/22/18 02/22/18 06:59 18:59 Intake Total 780 Balance 780 - Medications Medications: Current Medications Alprazolam (Xanax) 0.5 mg PO HS PRN; Protocol PRN Reason: Anxiety Stop: 02/26/18 22:01 Ascorbic Acid (Vitamin C 500 Mg Tab) 1,000 mg PO BID [facility] Last Admin: 02/22/18 09:50 Dose: 1,000 mg Cholecalciferol (Vitamin D) 2,000 intlu PO DAILY [facility] Last Admin: 02/22/18 09:50 Dose: 2,000 intlu Cyanocobalamin (Vitamin B12 1000 Mcg Tab) 1,000 mcg PO DAILY [facility] Last Admin: 02/22/18 09:50 Dose: 1,000 mcg Hydroxyzine HCl (Atarax) 10 mg PO HS [facility] Last Admin: 02/21/18 21:16 Dose: Not Given Lactulose (Enulose) 20 gm PO BID [facility] Last Admin: 02/22/18 09:49 Dose: 20 gm Midodrine (Proamatine) 10 mg PO TID [facility] Last Admin: 02/22/18 14:00 Dose: 10 mg Morphine Sulfate (Morphine) 1 mg IVP Q4H PRN PRN Reason: Pain, moderate (4-7) Last Admin: 02/22/18 06:10 Dose: 1 mg Nadolol (Corgard) 10 mg PO DAILY [facility] Last Admin: 02/22/18 09:50 Dose: 10 mg Ondansetron HCl (Zofran Inj) 4 mg IVP Q4 PRN PRN Reason: Nausea/Vomiting Last Admin: 02/22/18 01:25 Dose: 4 mg Oxycodone HCl (Oxycodone Immediate Release Tab) 5 mg PO Q8H PRN PRN Reason: Pain, moderate (4-7) Last Admin: 02/20/18 08:22 Dose: 5 mg Pantoprazole Sodium (Protonix Ec Tab) 40 mg PO DAILY [facility] Last Admin: 02/22/18 09:50 Dose: 40 mg Rifaximin (Xifaxan) 550 mg PO BID [facility] PRN Reason: Protocol Last Admin: 02/22/18 09:50 Dose: 550 mg Tamsulosin HCl (Flomax) 0.4 mg PO DAILY [facility] Last Admin: 02/22/18 09:50 Dose: 0.4 mg - Labs Labs: 02/22/18 06:00 02/22/18 06:00 PT 17.0 SECONDS (9.4-12.5) H 02/22/18 06:00 INR 1.47 (0.93-1.08) H 02/22/18 06:00 APTT 36.5 Seconds (25.1-36.5) 02/19/18 05:30 - Constitutional Appears: Non-toxic, No Acute Distress, Chronically Ill - Head Exam Head Exam: ATRAUMATIC, NORMOCEPHALIC - Eye Exam Eye Exam: EOMI, Normal appearance Pupil Exam: NORMAL ACCOMODATION, PERRL - ENT Exam ENT Exam: Mucous Membranes Moist, Normal Exam - Neck Exam Neck Exam: Full ROM, Normal Inspection. absent: Lymphadenopathy, Tenderness - Respiratory Exam Respiratory Exam: Clear to Ausculation Bilateral, NORMAL BREATHING PATTERN. absent: Accessory Muscle Use, Chest Wall Tenderness, Decreased Breath Sounds, Prolonged Expiratory Phase, Rales, Rhonchi, Wheezes, Respiratory Distress, Stridor - Cardiovascular Exam Cardiovascular Exam: REGULAR RHYTHM, RRR, +S1, +S2. absent: Bradycardia, Tachycardia, Clicks, Diastolic murmur, Gallop, Irregular Rhythm, JVD, Rubs, +S4 , Murmur - GI/Abdominal Exam GI & Abdominal Exam: Soft, Normal Bowel Sounds. absent: Distended, Firm, Guarding, Rigid, Tenderness, Rebound - Extremities Exam Extremities Exam: Full ROM, Normal Capillary Refill, Normal Inspection. absent : Calf Tenderness, Joint Swelling, Pedal Edema, Tenderness - Back Exam Back Exam: paraspinal tenderness. absent: CVA tenderness (L), CVA tenderness (R ), Full ROM, muscle spasm, NORMAL INSPECTION (Mid thoracic), rash noted, tenderness, vertebral tenderness - Neurological Exam Neurological Exam: Alert, Awake, CN II-XII Intact, Oriented x3 - Psychiatric Exam Psychiatric exam: Normal Affect, Normal Mood - Skin Skin Exam: Dry, Intact, Normal Color, Warm Assessment and Plan - Assessment and Plan (Free Text) Assessment: 63 year old male with a past medical history significant for HTN, diastolic CHF , Atrial Fibrillation s/p cardioversion, CKD stage 3B, non-alcoholic liver cirrhosis of unclear etiology, hepatic encephalopathy, chronic ascites, esophageal varices s/p banding, and GERD who present with back pain, urinary frequency, and N/V. Patient had seven liters of ascitic fluid drained by IR on 02/20 negative for signs of SBP. Plan: 1. Prerenal Azotemia on CKD Stage 3B -CT Abdomen/Pelvis showed tiny nonobstructing bilateral renal calculi -BUN/Creatinine downtrending since admission -Continue Midodrine -Nephrology consulted, all recommendations appreciated 2. Non-Alcoholic Liver Cirrhosis with Ascites -CT Abdomen/Pelvis showed large volume abdominal pelvic ascites, cirrhotic liver and splenomegaly -Abdomen Ultrasound showed no interval changes -S/P paracentesis with 7L removed with analytic studies negative signs of SBP -Continue Lactulose, Rifaximin and Nadolol -Continue Zofran PRN for N/V -Low sodium/fluid restricted heart healthy diet with supplemental Ensure Enlive -Dietary, GI and IR consulted, all recommendations appreciated -Patient to continue scheduled follow up with [facility] in 2 weeks 3. Chronic Back Pain -Continue as needed PO Oxycodone and IV Morphine -PT/OT recommending TCU 4. History of Anxiety -Continue home Xanax and Atarax GI Prophylaxis: Protonix DVT Prophylaxis: SCD's Patient see and case discussed with attending, Dr. Rosales. <Felicita Rosales - Last Filed: 02/23/18 13:45> Objective - Vital Signs/Intake and Output Vital Signs (last 24 hours): Temp Pulse Resp BP Pulse Ox 98.4 F 88 18 115/71 99 02/22/18 15:23 02/22/18 15:23 02/22/18 15:23 02/22/18 15:23 02/22/18 15:23 - Labs Labs: 02/22/18 06:00 02/22/18 06:00 PT 17.0 SECONDS (9.4-12.5) H 02/22/18 06:00 INR 1.47 (0.93-1.08) H 02/22/18 06:00 APTT 36.5 Seconds (25.1-36.5) 02/19/18 05:30 Attending/Attestation - Attestation I have personally seen and examined this patient.: Yes I have fully participated in the care of the patient.: Yes I have reviewed all pertinent clinical information, including history, physical exam and plan: Yes Notes (Text): 02/23/18 13:44 Attending note; Patient seen and examined with resident. Patient is a 62 -year-old male with PMH of CAD s/p stent, Afib s/p cardioconversion, anemia, GI bleed ,esophageal varices ,acute on chronic kidney disease and Non-alcoholic liver cirrhosis is admitted with abdominal distention and back discomfort. Significant ascites; status post large volume paracentesis. Acute on chronic kidney disease; creatinine improved from 2.4 to 1.6. most likely secondary to prerenal. Continue midodrine. Nephrology evaluation appreciated. Cirrhosis ; continue nadolol, lactulose and rifaximin. Patient follows up with [facility]. physical therapy evaluation appreciated. TCU evaluation requested. Upon discharge the patient will follow-up with PMD Dr. Bishop.
[2018-02-22 15:23] VITALS: BP 115/71; PULSE 88; RESP 18; TEMP 98.4; O2SAT 99
--- NOTE | 2018-02-22 20:10 | PN ---
DATE: 02/22/2018 SUBJECTIVE: Patient is seen lying in bed. He is awake, he is alert, he is comfortable. He denies any pain today. He denies any shortness of breath. PHYSICAL EXAMINATION: GENERAL: Elderly male lying in bed. VITAL SIGNS: Blood pressure of 145/76, heart rate 75, respiratory rate 18, temperature 98.4. HEENT: Normocephalic, atraumatic. NECK: Supple, no JVD. LUNGS: Bilateral equal entry, no rales. CARDIAC: S1, S2. Regular rate and rhythm, no murmur, no rub. ABDOMEN: Distended, soft, mild tenderness. Bowel sounds present. EXTREMITIES: No lower extremity edema. INTAKE AND OUTPUT: 1740/not charted. LABORATORY DATA: WBC 5, hemoglobin 8.8, hematocrit 26, platelets 105. Sodium 139, potassium 4.4, chloride 105, CO2 of 23, BUN 36, creatinine 1.6, glucose 86, calcium 10.8, phosphorus 3.8. Total bili 2.9, AST 60, ALT 33, albumin 4.1. Urine culture, no growth. CURRENT MEDICATIONS: Corgard, Enulose, Flomax, morphine, midodrine 10 t.i.d., Protonix, ascorbic acid, cholecalciferol, Xanax, rifaximin, Zofran. ASSESSMENT: 1. Acute kidney injury superimposed on chronic kidney disease, stage II/III. 2. Prerenal azotemia. 3. Nonalcoholic cirrhosis of the liver. 4. Recurrent ascites. 5. Pancytopenia. PLAN: 1. Off IV fluids. 2. Push p.o. fluids. 3. Okay to discontinue albumin. 4. Continue lactulose and rifaximin. 5. GI followup. Jami Resendiz MD
[2018-02-22 23:56] LABS: TOTAL PROTEIN PERITONEAL FLUID 3.6 g/dL
--- NOTE | 2018-02-23 12:28 | CP.PCM.DIS ---
<John Murray - Last Filed: 02/23/18 12:20> Provider - Provider Date of Admission: 02/19/18 06:09 Attending physician: Felicita Rosales MD Primary care physician: Dario Consults: GI: Royal Renal: Shivanii IR: Franko Crespo Time Spent in preparation of Discharge (in minutes): 47 Diagnosis - Discharge Diagnosis (1) KEYUR (acute kidney injury) Status: Acute (2) Ascites Status: Acute Hospital Course - Lab Results Lab Results: Micro Results 02/20/18 15:30 Ascitic Fluid Anaerobic Culture - Final NO ANAEROBES ISOLATED. 02/19/18 07:00 Urine,Clean Catch Urine Culture - Final No Growth (<1,000 CFU/ML) Most Recent Lab Values WBC 5.3 10^3/ul (4.5-11.0) 02/22/18 06:00 RBC 2.59 10^6/uL (3.5-6.1) L 02/22/18 06:00 Hgb 8.8 g/dL (14.0-18.0) L 02/22/18 06:00 Hct 26.2 % (42.0-52.0) L 02/22/18 06:00 MCV 101.2 fl (80.0-105.0) 02/22/18 06:00 MCH 34.0 pg (25.0-35.0) 02/22/18 06:00 MCHC 33.6 g/dl (31.0-37.0) 02/22/18 06:00 RDW 17.5 % (11.5-14.5) H 02/22/18 06:00 Plt Count 105 10^3/uL (120.0-450.0) L 02/22/18 06:00 MPV 10.3 fl (7.0-11.0) 02/22/18 06:00 Gran % 57.3 % (50.0-68.0) 02/22/18 06:00 Lymph % (Auto) 17.8 % (22.0-35.0) L 02/22/18 06:00 [place] % (Auto) 22.1 % (1.0-6.0) H 02/22/18 06:00 Eos % (Auto) 2.4 % (1.5-5.0) 02/22/18 06:00 Baso % (Auto) 0.4 % (0.0-3.0) 02/22/18 06:00 Gran # 3.05 (1.4-6.5) 02/22/18 06:00 Lymph # (Auto) 1.0 (1.2-3.4) L 02/22/18 06:00 [place] # (Auto) 1.2 (0.1-0.6) H 02/22/18 06:00 Eos # (Auto) 0.1 (0.0-0.7) 02/22/18 06:00 Baso # (Auto) 0.02 K/mm3 (0.0-2.0) 02/22/18 06:00 Neutrophils % (Manual) 65 % (50.0-70.0) 02/22/18 06:00 Lymphocytes % (Manual) 18 % (22.0-35.0) L 02/22/18 06:00 Atypical Lymphs % 3 % (0.0-0.0) H 02/19/18 05:30 Monocytes % (Manual) 14 % (1.0-6.0) H 02/22/18 06:00 Eosinophils % (Manual) 2 % (0.0-3.0) 02/22/18 06:00 Myelocytes % 1 % 02/22/18 06:00 Platelet Evaluation Low (NORMAL) 02/22/18 06:00 Hypochromasia Slight 02/19/18 05:30 PT 17.0 SECONDS (9.4-12.5) H 02/22/18 06:00 INR 1.47 (0.93-1.08) H 02/22/18 06:00 APTT 36.5 Seconds (25.1-36.5) 02/19/18 05:30 Sodium 139 mmol/L (132-148) 02/22/18 06:00 Potassium 4.4 mmol/L (3.6-5.0) 02/22/18 06:00 Chloride 104 mmol/L (98-107) 02/22/18 06:00 Carbon Dioxide 23 mmol/L (21-33) 02/22/18 06:00 Anion Gap 16 (10-20) 02/22/18 06:00 BUN 36 mg/dL (7-21) H 02/22/18 06:00 Creatinine 1.6 mg/dl (0.8-1.5) H 02/22/18 06:00 Est GFR ( Amer) 53 02/22/18 06:00 Est GFR (Non-Af Amer) 44 02/22/18 06:00 Random Glucose 86 mg/dL (70-110) 02/22/18 06:00 Serum Osmolality 314 mosm/kg (272-300) H 02/19/18 06:00 Calcium 10.8 mg/dL (8.4-10.5) H 02/22/18 06:00 Phosphorus 3.8 mg/dL (2.5-4.5) 02/20/18 06:00 Magnesium 2.1 mg/dL (1.7-2.2) 02/20/18 06:00 Total Bilirubin 2.9 mg/dL (0.2-1.3) H 02/22/18 06:00 AST 60 U/L (17-59) H 02/22/18 06:00 ALT 33 U/L (7-56) 02/22/18 06:00 Alkaline Phosphatase 245 U/L (38-126) H 02/22/18 06:00 Ammonia 89 umol/L (9-33) H 02/20/18 06:00 Total Protein 8.5 g/dL (5.8-8.3) H 02/22/18 06:00 Albumin 4.1 g/dL (3.0-4.8) 02/22/18 06:00 Globulin 4.4 gm/dL 02/22/18 06:00 Albumin/Globulin Ratio 0.9 (1.1-1.8) L 02/22/18 06:00 Lipase 156 U/L (23-300) 02/19/18 05:30 Urine Color Yellow (YELLOW) 02/19/18 07:00 Urine Appearance Clear (CLEAR) 02/19/18 07:00 Urine pH 6.0 (4.7-8.0) 02/19/18 07:00 Ur Specific [place] 1.015 (1.005-1.035) 02/19/18 07:00 Urine Protein Negative mg/dL (<30 mg/dL) 02/19/18 07:00 Urine Glucose (UA) Negative mg/dL (NEGATIVE) 02/19/18 07:00 Urine Ketones Negative mg/dL (NEGATIVE) 02/19/18 07:00 Urine Blood Negative (NEGATIVE) 02/19/18 07:00 Urine Nitrate Negative (NEGATIVE) 02/19/18 07:00 Urine Bilirubin Negative (NEGATIVE) 02/19/18 07:00 Urine Urobilinogen 1.0 E.U./dL (<1 E.U./dL) H 02/19/18 07:00 Ur Leukocyte Esterase Negative Tomy/uL (NEGATIVE) 02/19/18 07:00 Fluid Source Peritoneal/ascites 02/20/18 15:30 Fluid Appearance Clear (CLEAR) 02/20/18 15:30 Fluid WBC 84.0 /uL (0.0-300.0) 02/20/18 15:30 Fluid RBC 97.0 /uL (0.0-0.0) H 02/20/18 15:30 Fluid Tot Cell Count 100 (0-0) H 02/20/18 15:30 Fluid Neutrophils 13.1 % (0-0) H 02/20/18 15:30 Fluid Lymphocytes 86.9 % (0-0) H 02/20/18 15:30 Fld Monocyte/Macrophag TEST NOT PERFORMED 02/20/18 15:30 Fluid Comment Yellow 02/20/18 15:30 Peritoneal Tot Protein 3.6 g/dL 02/20/18 15:30 - Hospital Course Hospital Course: 63 year old male with a past medical history significant for HTN, diastolic CHF , Atrial Fibrillation s/p cardioversion, CKD stage 3B, non-alcoholic liver cirrhosis of unclear etiology, hepatic encephalopathy, chronic ascites, esophageal varices s/p banding, and GERD who present with back pain, urinary frequency, and N/V. Patient had seven liters of ascitic fluid drained by IR on 02/20 negative for signs of SBP. He was given appropriate fluid resuscitation with Albumin afterwards. He was found to have prerenal azotemia superimposed on Stage 3B CKD and was treated IVF, Albumin and Midodrine (home medication). CT Abdomen/Pelvis showed large volume abdominal pelvic ascites, cirrhotic liver and splenomegaly. Abdomen Ultrasound showed no interval changes. Patient was started on Zofran, Lactulose, Rifaximin and Nadolol. Patient was also started on PO Oxycodone and IVP morphine for back pain. He was started on Xanax and Atarax for anxiety. PT/OT recommended TCU upon discharge. Patient was discharged to TCU on 02/22/18 with instructions and prescriptions as written below. - Date & Time of H&P Date of H&P: 02/19/18 Time of H&P: 10:39 Discharge Exam - Head Exam Head Exam: ATRAUMATIC, NORMOCEPHALIC - Eye Exam Eye Exam: EOMI, Normal appearance Pupil Exam: NORMAL ACCOMODATION, PERRL - ENT Exam ENT Exam: Mucous Membranes Moist, Normal Exam - Neck Exam Neck exam: Full Rom, Normal Inspection - Respiratory Exam Respiratory Exam: Clear to PA & Lateral, NORMAL BREATHING PATTERN, UNREMARKABLE - Cardiovascular Exam Cardiovascular Exam: REGULAR RHYTHM - GI/Abdominal Exam GI & Abdominal Exam: Normal Bowel Sounds, Soft, Unremarkable. absent: Distended , Firm, Guarding, Rebound, Rigid, Tenderness - Extremities Exam Extremities exam: full ROM, normal capillary refill, normal inspection, pedal pulses present - Back Exam Back exam: paraspinal tenderness (Mid-thoracic) - Neurological Exam Neurological exam: Alert, CN II-XII Intact, Oriented x3 - Psychiatric Exam Psychiatric exam: Normal Affect, Normal Mood - Skin Skin Exam: Dry, Intact, Normal Color, Warm Discharge Plan - Follow Up Plan Condition: FAIR Disposition: REHAB FACILITY/REHAB UNIT Instructions: Cirrhosis, Fluid in the Belly (Ascites), Acute Kidney Failure (DC ), Hepatic Encephalopathy (DC), Preventing Falls Additional Instructions: Discharge patient to TRCU today. <Felicita Rosales - Last Filed: 02/23/18 13:46> Provider - Provider Date of Admission: 02/19/18 06:09 Attending physician: Felicita Rosales MD Hospital Course - Lab Results Lab Results: Micro Results 02/20/18 15:30 Ascitic Fluid Anaerobic Culture - Final NO ANAEROBES ISOLATED. 02/19/18 07:00 Urine,Clean Catch Urine Culture - Final No Growth (<1,000 CFU/ML) Most Recent Lab Values WBC 5.3 10^3/ul (4.5-11.0) 02/22/18 06:00 RBC 2.59 10^6/uL (3.5-6.1) L 02/22/18 06:00 Hgb 8.8 g/dL (14.0-18.0) L 02/22/18 06:00 Hct 26.2 % (42.0-52.0) L 02/22/18 06:00 MCV 101.2 fl (80.0-105.0) 02/22/18 06:00 MCH 34.0 pg (25.0-35.0) 02/22/18 06:00 MCHC 33.6 g/dl (31.0-37.0) 02/22/18 06:00 RDW 17.5 % (11.5-14.5) H 02/22/18 06:00 Plt Count 105 10^3/uL (120.0-450.0) L 02/22/18 06:00 MPV 10.3 fl (7.0-11.0) 02/22/18 06:00 Gran % 57.3 % (50.0-68.0) 02/22/18 06:00 Lymph % (Auto) 17.8 % (22.0-35.0) L 02/22/18 06:00 [place] % (Auto) 22.1 % (1.0-6.0) H 02/22/18 06:00 Eos % (Auto) 2.4 % (1.5-5.0) 02/22/18 06:00 Baso % (Auto) 0.4 % (0.0-3.0) 02/22/18 06:00 Gran # 3.05 (1.4-6.5) 02/22/18 06:00 Lymph # (Auto) 1.0 (1.2-3.4) L 02/22/18 06:00 [place] # (Auto) 1.2 (0.1-0.6) H 02/22/18 06:00 Eos # (Auto) 0.1 (0.0-0.7) 02/22/18 06:00 Baso # (Auto) 0.02 K/mm3 (0.0-2.0) 02/22/18 06:00 Neutrophils % (Manual) 65 % (50.0-70.0) 02/22/18 06:00 Lymphocytes % (Manual) 18 % (22.0-35.0) L 02/22/18 06:00 Atypical Lymphs % 3 % (0.0-0.0) H 02/19/18 05:30 Monocytes % (Manual) 14 % (1.0-6.0) H 02/22/18 06:00 Eosinophils % (Manual) 2 % (0.0-3.0) 02/22/18 06:00 Myelocytes % 1 % 02/22/18 06:00 Platelet Evaluation Low (NORMAL) 02/22/18 06:00 Hypochromasia Slight 02/19/18 05:30 PT 17.0 SECONDS (9.4-12.5) H 02/22/18 06:00 INR 1.47 (0.93-1.08) H 02/22/18 06:00 APTT 36.5 Seconds (25.1-36.5) 02/19/18 05:30 Sodium 139 mmol/L (132-148) 02/22/18 06:00 Potassium 4.4 mmol/L (3.6-5.0) 02/22/18 06:00 Chloride 104 mmol/L (98-107) 02/22/18 06:00 Carbon Dioxide 23 mmol/L (21-33) 02/22/18 06:00 Anion Gap 16 (10-20) 02/22/18 06:00 BUN 36 mg/dL (7-21) H 02/22/18 06:00 Creatinine 1.6 mg/dl (0.8-1.5) H 02/22/18 06:00 Est GFR ( Amer) 53 02/22/18 06:00 Est GFR (Non-Af Amer) 44 02/22/18 06:00 Random Glucose 86 mg/dL (70-110) 02/22/18 06:00 Serum Osmolality 314 mosm/kg (272-300) H 02/19/18 06:00 Calcium 10.8 mg/dL (8.4-10.5) H 02/22/18 06:00 Phosphorus 3.8 mg/dL (2.5-4.5) 02/20/18 06:00 Magnesium 2.1 mg/dL (1.7-2.2) 02/20/18 06:00 Total Bilirubin 2.9 mg/dL (0.2-1.3) H 02/22/18 06:00 AST 60 U/L (17-59) H 02/22/18 06:00 ALT 33 U/L (7-56) 02/22/18 06:00 Alkaline Phosphatase 245 U/L (38-126) H 02/22/18 06:00 Ammonia 89 umol/L (9-33) H 02/20/18 06:00 Total Protein 8.5 g/dL (5.8-8.3) H 02/22/18 06:00 Albumin 4.1 g/dL (3.0-4.8) 02/22/18 06:00 Globulin 4.4 gm/dL 02/22/18 06:00 Albumin/Globulin Ratio 0.9 (1.1-1.8) L 02/22/18 06:00 Lipase 156 U/L (23-300) 02/19/18 05:30 Urine Color Yellow (YELLOW) 02/19/18 07:00 Urine Appearance Clear (CLEAR) 02/19/18 07:00 Urine pH 6.0 (4.7-8.0) 02/19/18 07:00 Ur Specific [place] 1.015 (1.005-1.035) 02/19/18 07:00 Urine Protein Negative mg/dL (<30 mg/dL) 02/19/18 07:00 Urine Glucose (UA) Negative mg/dL (NEGATIVE) 02/19/18 07:00 Urine Ketones Negative mg/dL (NEGATIVE) 02/19/18 07:00 Urine Blood Negative (NEGATIVE) 02/19/18 07:00 Urine Nitrate Negative (NEGATIVE) 02/19/18 07:00 Urine Bilirubin Negative (NEGATIVE) 02/19/18 07:00 Urine Urobilinogen 1.0 E.U./dL (<1 E.U./dL) H 02/19/18 07:00 Ur Leukocyte Esterase Negative Tomy/uL (NEGATIVE) 02/19/18 07:00 Fluid Source Peritoneal/ascites 02/20/18 15:30 Fluid Appearance Clear (CLEAR) 02/20/18 15:30 Fluid WBC 84.0 /uL (0.0-300.0) 02/20/18 15:30 Fluid RBC 97.0 /uL (0.0-0.0) H 02/20/18 15:30 Fluid Tot Cell Count 100 (0-0) H 02/20/18 15:30 Fluid Neutrophils 13.1 % (0-0) H 02/20/18 15:30 Fluid Lymphocytes 86.9 % (0-0) H 02/20/18 15:30 Fld Monocyte/Macrophag TEST NOT PERFORMED 02/20/18 15:30 Fluid Comment Yellow 02/20/18 15:30 Peritoneal Tot Protein 3.6 g/dL 02/20/18 15:30 Attending/Attestation - Attestation I have personally seen and examined this patient.: Yes I have fully participated in the care of the patient.: Yes I have reviewed all pertinent clinical information, including history, physical exam and plan: Yes Notes (Text): 02/23/18 13:46 Attending note; Patient seen and examined with resident. Patient is a 62 -year-old male with PMH of CAD s/p stent, Afib s/p cardioconversion, anemia, GI bleed ,esophageal varices ,acute on chronic kidney disease and Non-alcoholic liver cirrhosis is admitted with abdominal distention and back discomfort. Significant ascites; status post large volume paracentesis. Acute on chronic kidney disease; creatinine improved from 2.4 to 1.6. most likely secondary to prerenal. Continue midodrine. Nephrology evaluation appreciated. Cirrhosis ; continue nadolol, lactulose and rifaximin. Patient follows up with [facility]. physical therapy evaluation appreciated. Transfer to TCU. Upon discharge the patient will follow-up with PMD Dr. Bishop.
== END 2018-02-22 19:42 | DRG 683 ==
LOC: ED 05:01 → ERH 06:09 → 5RNO 07:57
PROVIDERS: ADMIT Internal Medicine; ATTEND Internal Medicine
DX: N17.9 Acute kidney failure, unspecified (principal); R18.8 Other ascites; D61.818 Other pancytopenia; I13.0 Hypertensive heart and chronic kidney disease with heart failure and stage 1 through stage 4 chronic kidney disease, or unspecified chronic kidney disease; I50.32 Chronic diastolic (congestive) heart failure; K74.69 Other cirrhosis of liver; E86.0 Dehydration; F41.9 Anxiety disorder, unspecified; G89.29 Other chronic pain; I25.10 Atherosclerotic heart disease of native coronary artery without angina pectoris; I48.91 Unspecified atrial fibrillation; K21.9 Gastro-esophageal reflux disease without esophagitis; K72.90 Hepatic failure, unspecified without coma; N18.4 Chronic kidney disease, stage 4 (severe); Z87.891 Personal history of nicotine dependence; Z87.01 Personal history of pneumonia (recurrent); Z95.5 Presence of coronary angioplasty implant and graft; Z83.3 Family history of diabetes mellitus; Z82.49 Family history of ischemic heart disease and other diseases of the circulatory system

== ENCOUNTER 2018-02-22 18:57 | Inpatient (IN) | payer BC ==
[2018-02-22 20:04] VITALS: BMI 19.1
[2018-02-22] MEDS ORDERED: oxyCODONE 5 mg Immediate Release Tab PO PRN (20:31)
[2018-02-22] MEDS ORDERED: Morphine 2 mg/ml ISec IVP PRN (20:37)
[2018-02-22] MEDS ORDERED: Morphine 2 mg/2 mL syringe IVP PRN (21:13)
--- NOTE | 2018-02-23 00:22 | CP.PCM.PN ---
Subjective - Date & Time of Evaluation Date of Evaluation: 02/23/18 Time of Evaluation: 00:21 - Subjective Subjective: It was requested to co-sign admitting orders. Patient was seen at bedside. Has no complaints. Medical record was reviewed. Objective - Vital Signs/Intake and Output Vital Signs (last 24 hours): Temp Pulse Resp BP Pulse Ox 98.7 F 81 20 104/59 L 100 02/22/18 20:05 02/22/18 20:05 02/22/18 20:05 02/22/18 20:05 02/22/18 19:00 - Medications Medications: Current Medications Alprazolam (Xanax) 0.5 mg PO HS PRN; Protocol PRN Reason: Anxiety Stop: 03/01/18 22:01 Ascorbic Acid (Vitamin C 500 Mg Tab) 1,000 mg PO BID [facility] Cholecalciferol (Vitamin D) 2,000 intlu PO DAILY [facility] Cyanocobalamin (Vitamin B12 1000 Mcg Tab) 1,000 mcg PO DAILY [facility] Hydroxyzine HCl (Atarax) 10 mg PO HS [facility] Last Admin: 02/22/18 21:53 Dose: Not Given Lactulose (Enulose) 20 gm PO BID [facility] PRN Reason: Protocol Midodrine (Proamatine) 10 mg PO TID [facility] Morphine Sulfate (Morphine) 1 mg IVP Q4H PRN PRN Reason: Pain, severe (8-10) Last Admin: 02/22/18 21:51 Dose: 1 mg Nadolol (Corgard) 10 mg PO DAILY [facility] PRN Reason: Protocol Ondansetron HCl (Zofran Inj) 4 mg IVP Q4 PRN PRN Reason: Nausea/Vomiting Oxycodone HCl (Oxycodone Immediate Release Tab) 5 mg PO Q8H PRN PRN Reason: Pain, moderate (4-7) Pantoprazole Sodium (Protonix Ec Tab) 40 mg PO DAILY [facility] Rifaximin (Xifaxan) 550 mg PO BID [facility] PRN Reason: Protocol Tamsulosin HCl (Flomax) 0.4 mg PO DAILY [facility] - Constitutional Appears: Well, No Acute Distress - Head Exam Head Exam: ATRAUMATIC, NORMAL INSPECTION, NORMOCEPHALIC - Eye Exam Eye Exam: Normal appearance - ENT Exam ENT Exam: Normal External Ear Exam - Neck Exam Neck Exam: Normal Inspection - Respiratory Exam Respiratory Exam: NORMAL BREATHING PATTERN - Cardiovascular Exam Cardiovascular Exam: absent: JVD - GI/Abdominal Exam GI & Abdominal Exam: absent: Distended - Rectal Exam Rectal Exam: Deferred - Exam Additional comments: Deferred. - Extremities Exam Extremities Exam: Normal Inspection - Back Exam Back Exam: NORMAL INSPECTION - Neurological Exam Neurological Exam: Alert, Awake, Oriented x3 - Psychiatric Exam Psychiatric exam: Normal Affect, Normal Mood - Skin Skin Exam: Normal Color Assessment and Plan - Assessment and Plan (Free Text) Assessment: Backpain KEYUR Anemia Non Alcoholic cirrhosis. Plan: As per orders
[2018-02-23] MEDS: Pantoprazole 40 mg EC Tab PO SCH (05:03)
[2018-02-23 07:15] LABS: ALB/GLOB RATIO 0.9 (1.1-1.8); ALBUMIN 3.9 g/dL (3.0-4.8); CALCIUM 10.7 mg/dL (8.4-10.5)
[2018-02-23] MEDS ORDERED: CHOLECALCIFEROL PO SCH (10:00)
[2018-02-23] MEDS ORDERED: Pantoprazole 40 mg EC Tab PO SCH (10:00)
[2018-02-23] MEDS: Cholecalciferol 1,000 INTLU TAB PO SCH (11:05)
--- NOTE | 2018-02-23 12:36 | CP.PCM.HP ---
<MurrayJohn - Last Filed: 02/23/18 12:30> History of Present Illness - History of Present Illness History of Present Illness: Mr. Lane is a 63 year old male with a past medical history significant for HTN, diastolic CHF, Atrial Fibrillation s/p cardioversion, CKD stage 3B, non- alcoholic liver cirrhosis of unclear etiology, hepatic encephalopathy, chronic ascites, esophageal varices s/p banding, and GERD who presented with back pain, urinary frequency, and N/V. Patient had seven liters of ascitic fluid drained by IR on 02/20 negative for signs of SBP. He was found to have prerenal azotemia superimposed on Stage 3B CKD and was treated IVF, Albumin and Midodrine (home medication). He was transferred to the TCU on 02/22/18 for continued treatment and physical rehabilitation. Patient seen and assessed at bedside in TCU. No acute events overnight were noted by patient or nursing staff. Patient denies any complaints at this time including fevers, chills, headache, chest pain, SOB, abdominal pain, V/D/C, urinary changes, skin changes , or any numbness/tingling of any extremity. PMH: HTN, GERD, Non-alcoholic liver cirrhosis, Ascites, CHF, afib s/p cardioversion and esophageal varices PSH: Inguinal hernia repair Social History: Denies alcohol, drug used; Former smoker, quit 1.5 years ago Family History: Mother - DM, heart disease; Father - [place] Allergies: Beef products, banana Home Medications: As per [facility] PMD: Dr. Bishop Present on Admission - Present on Admission Any Indicators Present on Admission: No Review of Systems - Review of Systems Review of Systems: As per HPI, otherwise negative Past Patient History - Infectious Disease Hx of Infectious Diseases: None - Tetanus Immunizations Tetanus Immunization: Unknown - Past Medical History & Family History Past Medical History?: Yes - Past Social History Smoking Status: Never Smoked - CARDIAC Hx Congestive Heart Failure: Yes (diastolic) Hx Hypertension: Yes - PULMONARY Hx Respiratory Disorders: Yes Hx Bronchitis: Yes Hx Pneumonia: Yes (09/06) - NEUROLOGICAL Hx Neurological Disorder: No - HEENT Hx HEENT Problems: No (wears reading glasses) - RENAL Hx Chronic Kidney Disease: Yes Hx Renal Failure: Yes Other/Comment: CKD stage 3B with progressive renal insufficiency,. hepatic ence [halopathy. ascites s/p paracenthesis - ENDOCRINE/METABOLIC Hx Endocrine Disorders: No - HEMATOLOGICAL/ONCOLOGICAL Hx Blood Disorders: Yes Hx Cirrhosis: Yes (PARACENTESIS) - INTEGUMENTARY Hx Dermatological Problems: No - MUSCULOSKELETAL/RHEUMATOLOGICAL Hx Falls: Yes - GASTROINTESTINAL Hx Gastrointestinal Disorders: Yes (UPPER GI BLEED) Hx Gastroesophageal Reflux: Yes Other/Comment: esophageal varices - GENITOURINARY/GYNECOLOGICAL Hx Genitourinary Disorders: Yes - PSYCHIATRIC Hx Psychophysiologic Disorder: Yes Hx Anxiety: Yes - SURGICAL HISTORY Hx Surgeries: Yes (STENT X1) Hx Coronary Stent: Yes (CAD with stent) - ANESTHESIA Hx Anesthesia: Yes Hx Anesthesia Reactions: No Hx Malignant Hyperthermia: No Meds Allergies/Adverse Reactions: Allergies Allergy/AdvReac Type Severity Reaction Status Date / Time Beef Containing Products Allergy Severe ANAPHYLAXIS Verified 02/23/18 00:27 beef derived (bovine) Allergy Severe ANAPHYLAXIS Verified 02/23/18 00:27 banana Allergy Intermediate ITCHING Verified 02/23/18 00:27 velcro Allergy ITCHING Uncoded 02/23/18 00:27 Physical Exam - Constitutional Appears: Non-toxic, No Acute Distress - Head Exam Head Exam: ATRAUMATIC, NORMOCEPHALIC - Eye Exam Eye Exam: EOMI, Normal appearance Pupil Exam: NORMAL ACCOMODATION, PERRL - ENT Exam ENT Exam: Mucous Membranes Moist, Normal Exam - Neck Exam Neck exam: Positive for: Full Rom, Normal Inspection. Negative for: Lymphadenopathy, Tenderness - Respiratory Exam Respiratory Exam: Clear to Auscultation Bilateral, NORMAL BREATHING PATTERN. absent: Accessory Muscle Use, Chest Wall Tenderness, Decreased Breath Sounds, Prolonged Expiratory Phase, Rales, Rhonchi, Wheezes, Respiratory Distress, Stridor - Cardiovascular Exam Cardiovascular Exam: REGULAR RHYTHM, RRR, +S1, +S2. absent: Bradycardia, Tachycardia, Clicks, Diastolic murmur, Gallop, Irregular Rhythm, JVD, Rubs, +S4 , Systolic Murmur - GI/Abdominal Exam GI & Abdominal Exam: Normal Bowel Sounds, Soft. absent: Distended, Firm, Guarding, Rebound, Rigid, Tenderness - Extremities Exam Extremities exam: Positive for: full ROM, normal capillary refill, normal inspection, pedal pulses present. Negative for: calf tenderness, joint swelling , pedal edema, tenderness - Back Exam Back exam: paraspinal tenderness (Mid thoracic; interval improvement) - Neurological Exam Neurological exam: Alert, CN II-XII Intact, Oriented x3 - Psychiatric Exam Psychiatric exam: Normal Affect, Normal Mood - Skin Skin Exam: Dry, Intact, Normal Color, Warm Results - Vital Signs Recent Vital Signs: Last Vital Signs Temp 98.1 F 02/23/18 06:00 Pulse 81 02/23/18 11:03 Resp 20 02/23/18 06:00 BP 111/68 02/23/18 11:03 Pulse Ox 98 02/23/18 06:00 - Labs Result Diagrams: 02/23/18 06:00 Labs: Laboratory Results - last 24 hr 02/23/18 06:00 Sodium 140 Potassium 4.5 Chloride 105 Carbon Dioxide 23 Anion Gap 16 BUN 37 H Creatinine 1.5 Est GFR ( Amer) 57 Est GFR (Non-Af Amer) 47 Random Glucose 93 Calcium 10.7 H Total Bilirubin 2.4 H AST 74 H D ALT 41 Alkaline Phosphatase 257 H Total Protein 8.3 Albumin 3.9 Globulin 4.4 Albumin/Globulin Ratio 0.9 L Assessment & Plan - Assessment and Plan (Free Text) Assessment: 63 year old male with a past medical history significant for HTN, diastolic CHF , Atrial Fibrillation s/p cardioversion, CKD stage 3B, non-alcoholic liver cirrhosis of unclear etiology, hepatic encephalopathy, chronic ascites, esophageal varices s/p banding, and GERD who presented with back pain, urinary frequency, and N/V. Patient had seven liters of ascitic fluid drained by IR on 02/20 negative for signs of SBP. He was found to have prerenal azotemia superimposed on Stage 3B CKD and was treated IVF, Albumin and Midodrine (home medication). He was transferred to the TCU on 02/22/18 for continued treatment and physical rehabilitation. Plan: 1. Prerenal Azotemia on CKD Stage 3B (resolved) -CT Abdomen/Pelvis showed tiny nonobstructing bilateral renal calculi -BUN/Creatinine within normal limits -Continue Midodrine 2. Non-Alcoholic Liver Cirrhosis with Ascites -CT Abdomen/Pelvis showed large volume abdominal pelvic ascites, cirrhotic liver and splenomegaly -Abdomen Ultrasound showed no interval changes -S/P paracentesis with 7L removed with analytic studies negative signs of SBP -Continue Lactulose, Rifaximin and Nadolol -Continue Zofran PRN for N/V -Low sodium/fluid restricted heart healthy diet with supplemental Ensure Enlive -Dietary and GI , all recommendations appreciated -Patient to continue scheduled follow up with [facility] in 2 weeks 3. Chronic Back Pain -Continue as needed PO Oxycodone and IV Morphine 4. History of Anxiety -Continue home Xanax and Atarax 5. Generalized Weakness/Deconditioning -Continue twice daily PT/OT in TCU GI Prophylaxis: Protonix DVT Prophylaxis: SCD's Patient see and case discussed with attending, Dr. Rosales. - Date & Time Date: 02/23/18 Time: 12:36 Decision To Admit - . Bed Request Type: TRCU <Felicita Rosales - Last Filed: 02/23/18 13:47> Results - Vital Signs Recent Vital Signs: Last Vital Signs Temp 98.1 F 02/23/18 06:00 Pulse 81 02/23/18 11:03 Resp 20 02/23/18 06:00 BP 111/68 02/23/18 11:03 Pulse Ox 98 02/23/18 06:00 - Labs Result Diagrams: 02/23/18 06:00 Labs: Laboratory Results - last 24 hr 02/23/18 06:00 Sodium 140 Potassium 4.5 Chloride 105 Carbon Dioxide 23 Anion Gap 16 BUN 37 H Creatinine 1.5 Est GFR ( Amer) 57 Est GFR (Non-Af Amer) 47 Random Glucose 93 Calcium 10.7 H Total Bilirubin 2.4 H AST 74 H D ALT 41 Alkaline Phosphatase 257 H Total Protein 8.3 Albumin 3.9 Globulin 4.4 Albumin/Globulin Ratio 0.9 L Attending/Attestation - Attestation I have personally seen and examined this patient.: Yes I have fully participated in the care of the patient.: Yes I have reviewed all pertinent clinical information: Yes Notes (Text): 02/23/18 13:46 Attending note; Patient seen and examined with resident in TCU. Currently getting physical therapy. Patient is a 62 -year-old male with PMH of CAD s/p stent, Afib s/p cardioconversion, anemia, GI bleed ,esophageal varices ,acute on chronic kidney disease and Non-alcoholic liver cirrhosis is admitted with abdominal distention and back discomfort. Significant ascites; status post large volume paracentesis. Acute on chronic kidney disease; creatinine improved from 2.4 to 1.5. Continue midodrine. Nephrology evaluation appreciated. Cirrhosis ; continue nadolol, lactulose and rifaximin. Patient follows up with [facility]. Continue physical therapy. Upon discharge the patient will follow-up with PMD Dr. Bishop. 02/23/18 13:47
[2018-02-23] MEDS: Morphine 2 mg/2 mL syringe IVP PRN (19:35)
[2018-02-24] MEDS: Pantoprazole 40 mg EC Tab PO SCH (05:47)
[2018-02-24] MEDS: Cholecalciferol 1,000 INTLU TAB PO SCH (11:54)
[2018-02-24] MEDS: Morphine 2 mg/2 mL syringe IVP PRN (18:24)
[2018-02-25] MEDS: Pantoprazole 40 mg EC Tab PO SCH (05:01)
[2018-02-25] MEDS: Cholecalciferol 1,000 INTLU TAB PO SCH (10:19)
--- NOTE | 2018-02-25 11:37 | CP.PCM.PN ---
<John Murray - Last Filed: 02/25/18 11:37> Subjective - Date & Time of Evaluation Date of Evaluation: 02/25/18 Time of Evaluation: 11:37 - Subjective Subjective: Medicine Progress Note: Patient seen and assessed at bedside in TCU. No acute events overnight were noted by patient or nursing staff. Patient reports that he continues to have back pain but that this has improved since admission and with continued PT. He endorses that in the past he has been treated with Lidocaine TD with good results. Patient also endorses nasal congestion with no epistaxis or sinus pressure/pain. Patient denies any further complaints at this time including fevers, chills, headache, chest pain, SOB, abdominal pain, V/D/C, urinary changes, skin changes, or any numbness/tingling of any extremity. Objective - Vital Signs/Intake and Output Vital Signs (last 24 hours): Temp Pulse Resp BP Pulse Ox 98.1 F 89 20 104/63 99 02/23/18 06:00 02/25/18 10:16 02/23/18 06:00 02/25/18 10:16 02/24/18 13:13 Intake and Output: 02/25/18 02/25/18 06:59 18:59 Intake Total 240 Balance 240 - Medications Medications: Current Medications Alprazolam (Xanax) 0.5 mg PO HS PRN; Protocol PRN Reason: Anxiety Stop: 03/01/18 22:01 Ascorbic Acid (Vitamin C 500 Mg Tab) 1,000 mg PO BID [facility] Last Admin: 02/25/18 10:20 Dose: 1,000 mg Cholecalciferol (Vitamin D) 2,000 intlu PO DAILY [facility] Last Admin: 02/25/18 10:19 Dose: 2,000 intlu Cyanocobalamin (Vitamin B12 1000 Mcg Tab) 1,000 mcg PO DAILY [facility] Last Admin: 02/25/18 10:20 Dose: 1,000 mcg Hydroxyzine HCl (Atarax) 10 mg PO HS [facility] Last Admin: 02/24/18 22:04 Dose: Not Given Lactulose (Enulose) 20 gm PO BID [facility] PRN Reason: Protocol Last Admin: 02/25/18 10:17 Dose: 20 gm Lidocaine (Lidoderm) 1 ea TD DAILY [facility] Midodrine (Proamatine) 10 mg PO TID [facility] Last Admin: 02/25/18 10:21 Dose: 10 mg Nadolol (Corgard) 10 mg PO DAILY [facility] PRN Reason: Protocol Last Admin: 02/25/18 10:16 Dose: Not Given Ondansetron HCl (Zofran Inj) 4 mg IVP Q4 PRN PRN Reason: Nausea/Vomiting Last Admin: 02/25/18 04:57 Dose: 4 mg Oxycodone HCl (Oxycodone Immediate Release Tab) 5 mg PO Q8H PRN PRN Reason: Pain, moderate (4-7) Pantoprazole Sodium (Protonix Ec Tab) 40 mg PO 0600 [facility] Last Admin: 02/25/18 05:01 Dose: 40 mg Rifaximin (Xifaxan) 550 mg PO BID [facility] PRN Reason: Protocol Last Admin: 02/25/18 10:18 Dose: 550 mg Sodium Chloride ([place] Nasal [place]) 1 ml NS Q6 PRN PRN Reason: Nasal congestion Tamsulosin HCl (Flomax) 0.4 mg PO DAILY [facility] Last Admin: 02/25/18 10:17 Dose: 0.4 mg - Labs Labs: 02/23/18 06:00 - Constitutional Appears: Non-toxic, No Acute Distress - Head Exam Head Exam: ATRAUMATIC, NORMOCEPHALIC - Eye Exam Eye Exam: EOMI, Normal appearance Pupil Exam: NORMAL ACCOMODATION, PERRL - ENT Exam ENT Exam: Mucous Membranes Moist, Normal Exam - Neck Exam Neck Exam: Full ROM, Normal Inspection. absent: Lymphadenopathy, Tenderness - Respiratory Exam Respiratory Exam: Clear to Ausculation Bilateral, NORMAL BREATHING PATTERN. absent: Accessory Muscle Use, Decreased Breath Sounds, Rales, Rhonchi, Wheezes, Respiratory Distress - Cardiovascular Exam Cardiovascular Exam: REGULAR RHYTHM, RRR, +S1, +S2. absent: Bradycardia, Tachycardia, Clicks, Diastolic murmur, Gallop, Irregular Rhythm, JVD, Rubs, +S4 , Murmur - GI/Abdominal Exam GI & Abdominal Exam: Soft, Normal Bowel Sounds. absent: Distended, Firm, Guarding, Rigid, Tenderness, Rebound - Extremities Exam Extremities Exam: Full ROM, Normal Capillary Refill, Normal Inspection. absent : Calf Tenderness, Joint Swelling, Pedal Edema, Tenderness - Back Exam Back Exam: NORMAL INSPECTION - Neurological Exam Neurological Exam: Alert, Awake, CN II-XII Intact, Oriented x3 - Psychiatric Exam Psychiatric exam: Normal Affect, Normal Mood - Skin Skin Exam: Dry, Intact, Normal Color, Warm Assessment and Plan - Assessment and Plan (Free Text) Assessment: 63 year old male with a past medical history significant for HTN, diastolic CHF , Atrial Fibrillation s/p cardioversion, CKD stage 3B, non-alcoholic liver cirrhosis of unclear etiology, hepatic encephalopathy, chronic ascites, esophageal varices s/p banding, and GERD who presented with back pain, urinary frequency, and N/V. Patient had seven liters of ascitic fluid drained by IR on 02/20 negative for signs of SBP. He was found to have prerenal azotemia superimposed on Stage 3B CKD and was treated IVF, Albumin and Midodrine (home medication). He was transferred to the TCU on 02/22/18 for continued treatment and physical rehabilitation. Plan: 1. Non-Alcoholic Liver Cirrhosis with Ascites -CT Abdomen/Pelvis showed large volume abdominal pelvic ascites, cirrhotic liver and splenomegaly -Abdomen Ultrasound showed no interval changes -S/P paracentesis with 7L removed with analytic studies negative signs of SBP -Continue Lactulose, Rifaximin and Nadolol -Continue Zofran PRN for N/V -Low sodium/fluid restricted heart healthy diet with supplemental Ensure Enlive -Dietary and GI , all recommendations appreciated -Patient to continue scheduled follow up with [facility] on 03/02/18 2. Prerenal Azotemia on CKD Stage 3B (resolved) -CT Abdomen/Pelvis showed tiny nonobstructing bilateral renal calculi -BUN/Creatinine within normal limits -Continue Midodrine 3. Chronic Back Pain -Started Lidocaine TD once daily -Continue as needed PO Oxycodone -Discontinue Morphine IVP 4. History of Anxiety -Continue home Xanax and Atarax 5. Generalized Weakness/Deconditioning -Continue daily PT/OT in TCU 6. Nasal Congestion -Started Saline Nasal [place] GI Prophylaxis: Protonix DVT Prophylaxis: SCD's Patient see and case discussed with attending, Dr. Rosales. <Felicita Rosales - Last Filed: 02/25/18 16:25> Objective - Vital Signs/Intake and Output Vital Signs (last 24 hours): Temp Pulse Resp BP Pulse Ox 98.1 F 89 20 104/63 99 02/23/18 06:00 02/25/18 10:16 02/23/18 06:00 02/25/18 10:16 02/24/18 13:13 Intake and Output: 02/25/18 02/25/18 06:59 18:59 Intake Total 240 Balance 240 - Medications Medications: Current Medications Alprazolam (Xanax) 0.5 mg PO HS PRN; Protocol PRN Reason: Anxiety Stop: 03/01/18 22:01 Ascorbic Acid (Vitamin C 500 Mg Tab) 1,000 mg PO BID [facility] Last Admin: 02/25/18 10:20 Dose: 1,000 mg Cholecalciferol (Vitamin D) 2,000 intlu PO DAILY [facility] Last Admin: 02/25/18 10:19 Dose: 2,000 intlu Cyanocobalamin (Vitamin B12 1000 Mcg Tab) 1,000 mcg PO DAILY [facility] Last Admin: 02/25/18 10:20 Dose: 1,000 mcg Hydroxyzine HCl (Atarax) 10 mg PO HS [facility] Last Admin: 02/24/18 22:04 Dose: Not Given Lactulose (Enulose) 20 gm PO BID [facility] PRN Reason: Protocol Last Admin: 02/25/18 10:17 Dose: 20 gm Lidocaine (Lidoderm) 1 ea TD DAILY [facility] Last Admin: 02/25/18 13:46 Dose: 1 ea Midodrine (Proamatine) 10 mg PO TID [facility] Last Admin: 02/25/18 13:46 Dose: 10 mg Nadolol (Corgard) 10 mg PO DAILY [facility] PRN Reason: Protocol Last Admin: 02/25/18 10:16 Dose: Not Given Ondansetron HCl (Zofran Inj) 4 mg IVP Q4 PRN PRN Reason: Nausea/Vomiting Last Admin: 02/25/18 04:57 Dose: 4 mg Oxycodone HCl (Oxycodone Immediate Release Tab) 5 mg PO Q8H PRN PRN Reason: Pain, moderate (4-7) Pantoprazole Sodium (Protonix Ec Tab) 40 mg PO 0600 [facility] Last Admin: 02/25/18 05:01 Dose: 40 mg Rifaximin (Xifaxan) 550 mg PO BID [facility] PRN Reason: Protocol Last Admin: 02/25/18 10:18 Dose: 550 mg Sodium Chloride ([place] Nasal [place]) 1 ml NS Q6 PRN PRN Reason: Nasal congestion Last Admin: 02/25/18 13:50 Dose: 1 applic Tamsulosin HCl (Flomax) 0.4 mg PO DAILY [facility] Last Admin: 02/25/18 10:17 Dose: 0.4 mg - Labs Labs: 02/23/18 06:00 Attending/Attestation - Attestation I have personally seen and examined this patient.: Yes I have fully participated in the care of the patient.: Yes I have reviewed all pertinent clinical information, including history, physical exam and plan: Yes Notes (Text): 02/25/18 16:24 Attending note; Patient seen and examined with resident in TCU. back pain is improving. Patient is a 62 -year-old male with PMH of CAD s/p stent, Afib s/p cardioconversion, anemia, GI bleed ,esophageal varices ,acute on chronic kidney disease and Non-alcoholic liver cirrhosis is admitted with abdominal distention and back discomfort. ascites; status post large volume paracentesis. Acute on chronic kidney disease; creatinine improved from 2.4 to 1.5. Continue midodrine. Nephrology evaluation appreciated. Cirrhosis ; continue nadolol, lactulose and rifaximin. Patient follows up with [facility]. back pain; continue Lidoderm patch. Continue physical therapy. Upon discharge the patient will follow-up with PMD Dr. Bishop. 02/25/18 16:25
[2018-02-25] MEDS: Lidocaine 5% Patch TD SCH (13:46)
[2018-02-26] MEDS: Pantoprazole 40 mg EC Tab PO SCH (05:38)
[2018-02-26] MEDS: Lidocaine 5% Patch TD SCH (10:16)
[2018-02-26] MEDS: Cholecalciferol 1,000 INTLU TAB PO SCH (10:17)
[2018-02-27] MEDS: Pantoprazole 40 mg EC Tab PO SCH (05:38)
[2018-02-27 07:41] LABS: BASO # 0.01 K/mm3 (0.0-2.0); BASO % 0.2 % (0.0-3.0); EOS # 0.1 (0.0-0.7); EOS % 1.5 % (1.5-5.0); GRAN # 3.12 (1.4-6.5); GRAN % 53.5 % (50.0-68.0); HEMOGLOBIN 9.6 g/dL (14.0-18.0); LYMPH # 1.1 (1.2-3.4); LYMPH % 19.3 % (22.0-35.0); MEAN CELL VOLUME 101.4 fl (80.0-105.0); MEAN CORPUSCULAR HEMOGLOBIN 34.2 pg (25.0-35.0); MEAN CORPUSCULAR HGB CONC 33.7 g/dl (31.0-37.0); MEAN PLATELET VOLUME 8.8 fl (7.0-11.0); MONO # 1.5 (0.1-0.6); MONO % 25.5 % (1.0-6.0); PLATELET COUNT 89 10^3/uL (120.0-450.0); RBC 2.81 10^6/uL (3.5-6.1); RED CELL DISTRIBUTION WIDTH 16.7 % (11.5-14.5); WHITE BLOOD COUNT 5.8 10^3/ul (4.5-11.0)
[2018-02-27 07:50] LABS: ALB/GLOB RATIO 0.7 (1.1-1.8); ALBUMIN 3.3 g/dL (3.0-4.8); ALT/SGPT 44 U/L (7-56); AST/SGOT 70 U/L (17-59); BLOOD UREA NITROGEN 33 mg/dL (7-21); CALCIUM 9.7 mg/dL (8.4-10.5); GFR AFRICAN-AMERICAN > 60; GFR NON-AFRICAN AMERICAN 56
[2018-02-27 08:35] LABS: BAND 1 % (0-2); EOSINOPHIL 1 % (0.0-3.0); LYMPHOCYTE 15 % (22.0-35.0); MONOCYTE 28 % (1.0-6.0); NEUTROPHIL 55 % (50.0-70.0); PLATELET ESTIMATE LOW (NORMAL)
[2018-02-27] MEDS: Lidocaine 5% Patch TD SCH (10:00)
[2018-02-27] MEDS: Cholecalciferol 1,000 INTLU TAB PO SCH (10:01)
--- NOTE | 2018-02-27 11:34 | CP.PCM.PN ---
<Bruce Waller - Last Filed: 02/27/18 11:30> Subjective - Date & Time of Evaluation Date of Evaluation: 02/27/18 Time of Evaluation: 09:00 - Subjective Subjective: IM Progress Note for Hospitalist Service Pt seen and examined at bedside in TCU. No acute events reported overnight. Today, complains of abdominal/back pain with coughing, cough productive for clear-yellow sputum but denies fevers, chills. Denies nausea, emesis, diarrhea , chest pain at rest, or shortness of breath. Reports ambulating with walker well; pending d/c tomorrow (02.28.18) evening to prep for follow up at Transplant Unit at [facility] on 03/02/18. Objective - Vital Signs/Intake and Output Vital Signs (last 24 hours): Temp Pulse Resp BP Pulse Ox 98.3 F 74 20 93/50 L 97 02/26/18 16:00 02/27/18 09:59 02/26/18 16:00 02/27/18 09:59 02/26/18 16:00 - Medications Medications: Current Medications Alprazolam (Xanax) 0.5 mg PO HS PRN; Protocol PRN Reason: Anxiety Stop: 03/01/18 22:01 Ascorbic Acid (Vitamin C 500 Mg Tab) 1,000 mg PO BID [facility] Last Admin: 02/27/18 10:01 Dose: 1,000 mg Cholecalciferol (Vitamin D) 2,000 intlu PO DAILY [facility] Last Admin: 02/27/18 10:01 Dose: 2,000 intlu Cyanocobalamin (Vitamin B12 1000 Mcg Tab) 1,000 mcg PO DAILY [facility] Last Admin: 02/27/18 10:01 Dose: 1,000 mcg Hydroxyzine HCl (Atarax) 10 mg PO HS [facility] Last Admin: 02/26/18 21:12 Dose: 10 mg Lactulose (Enulose) 20 gm PO BID [facility] PRN Reason: Protocol Last Admin: 02/27/18 09:59 Dose: 20 gm Lidocaine (Lidoderm) 1 ea TD DAILY [facility] Last Admin: 02/27/18 10:00 Dose: 1 ea Midodrine (Proamatine) 10 mg PO TID [facility] Last Admin: 02/27/18 10:00 Dose: 10 mg Nadolol (Corgard) 10 mg PO DAILY [facility] PRN Reason: Protocol Last Admin: 02/27/18 09:59 Dose: Not Given Ondansetron HCl (Zofran Inj) 4 mg IVP Q4 PRN PRN Reason: Nausea/Vomiting Last Admin: 02/27/18 05:39 Dose: 4 mg Oxycodone HCl (Oxycodone Immediate Release Tab) 5 mg PO Q8H PRN PRN Reason: Pain, moderate (4-7) Pantoprazole Sodium (Protonix Ec Tab) 40 mg PO 0600 [facility] Last Admin: 02/27/18 05:38 Dose: 40 mg Rifaximin (Xifaxan) 550 mg PO BID [facility] PRN Reason: Protocol Last Admin: 02/27/18 10:01 Dose: 550 mg Sodium Chloride ([place] Nasal [place]) 1 ml NS Q6 PRN PRN Reason: Nasal congestion Last Admin: 02/26/18 04:29 Dose: 1 applic Tamsulosin HCl (Flomax) 0.4 mg PO DAILY [facility] Last Admin: 02/27/18 10:00 Dose: 0.4 mg - Labs Labs: 02/27/18 07:30 02/27/18 07:30 - Additional Findings Additional findings: - Constitutional Appears: Non-toxic, No Acute Distress, Chronically Ill - Head Exam Head Exam: ATRAUMATIC, NORMAL INSPECTION, NORMOCEPHALIC - Eye Exam Eye Exam: EOMI, Normal appearance. absent: Conjunctival injection, Scleral icterus Pupil Exam: absent: Irregular, Unequal - ENT Exam ENT Exam: Mucous Membranes Moist - Neck Exam Neck exam: Positive for: Full Rom. Negative for: Lymphadenopathy, Thyromegaly - Respiratory Exam Respiratory Exam: Clear to Auscultation Bilateral, NORMAL BREATHING PATTERN. absent: Accessory Muscle Use, Chest Wall Tenderness, Decreased Breath Sounds, Rales, Rhonchi, Wheezes - Cardiovascular Exam Cardiovascular Exam: REGULAR RHYTHM, RRR, +S1, +S2. absent: Bradycardia, Tachycardia, Irregular Rhythm, +S4 - GI/Abdominal Exam GI & Abdominal Exam: Firm, Normal Bowel Sounds, Organomegaly (hepatomegaly), Tenderness. absent: Guarding, Rigid, Soft - Extremities Exam Extremities exam: Positive for: pedal pulses present. Negative for: calf tenderness, joint swelling, pedal edema, tenderness - Neurological Exam awake and alert, oriented x4 (self, location, year, president), following all commands appropriately motor appears grossly intact and equal hesitant but stable gait with walker when ambulating with PT - Psychiatric Exam Psychiatric exam: Normal Affect, Normal Mood - Skin Skin Exam: Dry, Intact, Normal Color, Warm Assessment and Plan - Assessment and Plan (Free Text) Assessment: 63 year old male with a past medical history significant for HTN, diastolic CHF , Atrial Fibrillation s/p cardioversion, CKD stage 3B, non-alcoholic liver cirrhosis of unclear etiology, hepatic encephalopathy, chronic ascites, esophageal varices s/p banding, and GERD who presented with back pain, urinary frequency, and N/V. Patient had seven liters of ascitic fluid drained by IR on 02/20 negative for signs of SBP. He was found to have prerenal azotemia superimposed on Stage 3B CKD and was treated IVF, Albumin and Midodrine (home medication). He was transferred to the TCU on 02/22/18 for continued treatment and physical rehabilitation. Plan: 1) Non-Alcoholic Liver Cirrhosis with Ascites -CT Abdomen/Pelvis showed large volume abdominal pelvic ascites, cirrhotic liver and splenomegaly -Abdomen Ultrasound showed no interval changes -S/P paracentesis with 7L removed with analytic studies negative signs of SBP (), no recurrence of abd distention with fluid wave at this time -Continue Lactulose, Rifaximin and Nadolol -Continue Zofran PRN for N/V -Low sodium/fluid restricted heart healthy diet with supplemental Ensure Enlive -Patient to continue scheduled follow up with [facility] on 03/02/18 2) Prerenal Azotemia on CKD Stage 3B - improving -CT Abdomen/Pelvis showed tiny nonobstructing bilateral renal calculi -Cr 1.3 today (was 1.5), continue to monitor -Continue Midodrine 3) Chronic Back Pain -Started Lidocaine TD once daily -Continue as needed PO Oxycodone -component of back (and abdominal) pain likely 2/2 cough, low dose flexeril ( 2.5mg) PO x1 for muscle relaxation 4) History of Anxiety -Continue home Xanax and Atarax 5) Generalized Weakness/Deconditioning -Continue daily PT/OT in TCU 6) Nasal Congestion -Started Saline Nasal [place] Dispo: TCU for reconditioning, pending d/c tmr evening (02/29/12), pending f/u at [facility] 03/02/18 FEN: Heart-healthy diet, low sodium Access: Peripheral IVs Consults: N/a Ppx: Protonix for GI, SCDs for DVT Patient seen and examined with attending, Dr. Das. <Fay Das - Last Filed: 02/27/18 16:57> Objective - Vital Signs/Intake and Output Vital Signs (last 24 hours): Temp Pulse Resp BP Pulse Ox 98.2 F 75 18 114/64 99 02/27/18 16:00 02/27/18 16:00 02/27/18 16:00 02/27/18 16:00 02/27/18 16:00 - Medications Medications: Current Medications Alprazolam (Xanax) 0.5 mg PO HS PRN; Protocol PRN Reason: Anxiety Stop: 03/01/18 22:01 Ascorbic Acid (Vitamin C 500 Mg Tab) 1,000 mg PO BID [facility] Last Admin: 02/27/18 10:01 Dose: 1,000 mg Cholecalciferol (Vitamin D) 2,000 intlu PO DAILY [facility] Last Admin: 02/27/18 10:01 Dose: 2,000 intlu Cyanocobalamin (Vitamin B12 1000 Mcg Tab) 1,000 mcg PO DAILY [facility] Last Admin: 02/27/18 10:01 Dose: 1,000 mcg Hydroxyzine HCl (Atarax) 10 mg PO HS [facility] Last Admin: 02/26/18 21:12 Dose: 10 mg Lactulose (Enulose) 20 gm PO BID [facility] PRN Reason: Protocol Last Admin: 02/27/18 09:59 Dose: 20 gm Lidocaine (Lidoderm) 1 ea TD DAILY [facility] Last Admin: 02/27/18 10:00 Dose: 1 ea Midodrine (Proamatine) 10 mg PO TID [facility] Last Admin: 02/27/18 14:57 Dose: 10 mg Nadolol (Corgard) 10 mg PO DAILY [facility] PRN Reason: Protocol Last Admin: 02/27/18 09:59 Dose: Not Given Ondansetron HCl (Zofran Inj) 4 mg IVP Q4 PRN PRN Reason: Nausea/Vomiting Last Admin: 02/27/18 15:02 Dose: 4 mg Oxycodone HCl (Oxycodone Immediate Release Tab) 5 mg PO Q8H PRN PRN Reason: Pain, moderate (4-7) Pantoprazole Sodium (Protonix Ec Tab) 40 mg PO 0600 [facility] Last Admin: 02/27/18 05:38 Dose: 40 mg Rifaximin (Xifaxan) 550 mg PO BID [facility] PRN Reason: Protocol Last Admin: 02/27/18 10:01 Dose: 550 mg Sodium Chloride ([place] Nasal [place]) 1 ml NS Q6 PRN PRN Reason: Nasal congestion Last Admin: 02/26/18 04:29 Dose: 1 applic Tamsulosin HCl (Flomax) 0.4 mg PO DAILY [facility] Last Admin: 02/27/18 10:00 Dose: 0.4 mg - Labs Labs: 02/27/18 07:30 02/27/18 07:30 Attending/Attestation - Attestation I have personally seen and examined this patient.: Yes I have fully participated in the care of the patient.: Yes I have reviewed all pertinent clinical information, including history, physical exam and plan: Yes Notes (Text): I have seen and examined the patient at bedside. Agree with the above note with the following additions/ exceptions: Briefly this is 62 year old male with history of CAD s/p stent, Afib s/p cardioconversion, anemia, GI bleed, esophageal varices, acute on chronic kidney disease and Non-alcoholic liver cirrhosis who is admitted with abdominal distention and back discomfort. Patient underwent large volume paracentesis. Denies any abdominal pain. Patient has been participating in PT in TCU. His creatinine is getting better. Continue midodrine, nadolol, lactulose and rifaxamin. Upon discharge the patient will follow-up with PMD Dr. Bishop. Dr Fay Das
[2018-02-27 16:50] VITALS: RESP 18
[2018-02-28] MEDS: Pantoprazole 40 mg EC Tab PO SCH (06:10)
[2018-02-28] MEDS: Lidocaine 5% Patch TD SCH (09:40)
[2018-02-28] MEDS: Cholecalciferol 1,000 INTLU TAB PO SCH (09:41)
[2018-02-28 10:47] VITALS: O2SAT 98
--- NOTE | 2018-02-28 14:25 | CP.PCM.DIS ---
<Bruce Waller - Last Filed: 02/28/18 14:16> Provider - Provider Date of Admission: 02/22/18 18:57 Attending physician: Fay Das MD Primary care physician: Surinder Bishop MD Time Spent in preparation of Discharge (in minutes): 35 Diagnosis - Discharge Diagnosis (1) Cirrhosis of liver with ascites Status: Chronic Priority: High (2) Non-alcoholic cirrhosis Status: Chronic Priority: High (3) KEYUR (acute kidney injury) Status: Resolved Priority: Medium (4) Abdominal pain Status: Acute Priority: Medium Comment: improved, 2/2 cough (5) CKD (chronic kidney disease) Status: Chronic Priority: Medium (6) Hepatic encephalopathy Status: Chronic Priority: High Comment: hx of, currently controlled on Rifaximin and Lactulose Hospital Course - Lab Results Lab Results: Most Recent Lab Values WBC 5.8 10^3/ul (4.5-11.0) 02/27/18 07:30 RBC 2.81 10^6/uL (3.5-6.1) L 02/27/18 07:30 Hgb 9.6 g/dL (14.0-18.0) L 02/27/18 07:30 Hct 28.5 % (42.0-52.0) L 02/27/18 07:30 MCV 101.4 fl (80.0-105.0) 02/27/18 07:30 MCH 34.2 pg (25.0-35.0) 02/27/18 07:30 MCHC 33.7 g/dl (31.0-37.0) 02/27/18 07:30 RDW 16.7 % (11.5-14.5) H 02/27/18 07:30 Plt Count 89 10^3/uL (120.0-450.0) L 02/27/18 07:30 MPV 8.8 fl (7.0-11.0) 02/27/18 07:30 Gran % 53.5 % (50.0-68.0) 02/27/18 07:30 Lymph % (Auto) 19.3 % (22.0-35.0) L 02/27/18 07:30 Branch % (Auto) 25.5 % (1.0-6.0) H 02/27/18 07:30 Eos % (Auto) 1.5 % (1.5-5.0) 02/27/18 07:30 Baso % (Auto) 0.2 % (0.0-3.0) 02/27/18 07:30 Gran # 3.12 (1.4-6.5) 02/27/18 07:30 Lymph # (Auto) 1.1 (1.2-3.4) L 02/27/18 07:30 Branch # (Auto) 1.5 (0.1-0.6) H 02/27/18 07:30 Eos # (Auto) 0.1 (0.0-0.7) 02/27/18 07:30 Baso # (Auto) 0.01 K/mm3 (0.0-2.0) 02/27/18 07:30 Neutrophils % (Manual) 55 % (50.0-70.0) 02/27/18 07:30 Band Neutrophils % 1 % (0-2) 02/27/18 07:30 Lymphocytes % (Manual) 15 % (22.0-35.0) L 02/27/18 07:30 Monocytes % (Manual) 28 % (1.0-6.0) H 02/27/18 07:30 Eosinophils % (Manual) 1 % (0.0-3.0) 02/27/18 07:30 Platelet Evaluation Low (NORMAL) 02/27/18 07:30 Sodium 136 mmol/L (132-148) 02/27/18 07:30 Potassium 3.8 mmol/L (3.6-5.0) 02/27/18 07:30 Chloride 104 mmol/L (98-107) 02/27/18 07:30 Carbon Dioxide 23 mmol/L (21-33) 02/27/18 07:30 Anion Gap 13 (10-20) 02/27/18 07:30 BUN 33 mg/dL (7-21) H 02/27/18 07:30 Creatinine 1.3 mg/dl (0.8-1.5) 02/27/18 07:30 Est GFR ( Amer) > 60 02/27/18 07:30 Est GFR (Non-Af Amer) 56 02/27/18 07:30 Random Glucose 101 mg/dL (70-110) 02/27/18 07:30 Calcium 9.7 mg/dL (8.4-10.5) 02/27/18 07:30 Phosphorus 3.0 mg/dL (2.5-4.5) 02/27/18 07:30 Magnesium 2.0 mg/dL (1.7-2.2) 02/27/18 07:30 Total Bilirubin 3.1 mg/dL (0.2-1.3) H 02/27/18 07:30 AST 70 U/L (17-59) H 02/27/18 07:30 ALT 44 U/L (7-56) 02/27/18 07:30 Alkaline Phosphatase 285 U/L (38-126) H 02/27/18 07:30 Total Protein 8.0 g/dL (5.8-8.3) 02/27/18 07:30 Albumin 3.3 g/dL (3.0-4.8) 02/27/18 07:30 Globulin 4.7 gm/dL 02/27/18 07:30 Albumin/Globulin Ratio 0.7 (1.1-1.8) L 02/27/18 07:30 - Hospital Course Hospital Course: This is a 63 year old male with a past medical history significant for HTN, diastolic CHF, Atrial Fibrillation s/p cardioversion, CKD stage 3B, non- alcoholic liver cirrhosis of unclear etiology, hepatic encephalopathy, chronic ascites, esophageal varices s/p banding, and GERD who presented with back pain, urinary frequency, and N/V. Patient had seven liters of ascitic fluid drained by IR on 02/20 negative for signs of SBP. He was found to have prerenal azotemia superimposed on Stage 3B CKD and was treated IVF, Albumin and Midodrine (home medication). He was transferred to the TCU on 02/22/18 for continued treatment and physical rehabilitation. Since time at the TCU, he has been participating well with PT. Seen ambulating on the floors with PT and participating in exercise today without complaint. Patient is pending a discharge to home today, pending follow up with Liver Transplant Team at [facility] on 03/02/18. Plans on compliance with [facility] follow up, compliance with all medications. All scripts filled except for home Xanax, defer refills of that to pt's PMD (Dr. Bishop). All scripts were electronically sent to in-house outpt pharmacy to be available on discharge. Of note, cleared confusion with pt, he is authorized for Rifaximin as outpt by his insurance, but only through a single Pharmacy, which is the in-house outpt pharmacy; pt expressed understanding of this. He was instructed to follow up as planned at [facility], to follow up with his PMD within 1 week of discharge, and to resume all home medications as prescribed. He expressed understanding and agreement with these instructions, and all questions were answered to his satisfaction. He was then discharged to home. Patient seen, examined, and discussed with attending, Dr. Das. Discharge Exam - Additional Findings Additional findings: - Constitutional Appears: Non-toxic, No Acute Distress, Chronically Ill - Head Exam Head Exam: ATRAUMATIC, NORMAL INSPECTION, NORMOCEPHALIC - Eye Exam Eye Exam: EOMI, Normal appearance. absent: Conjunctival injection, Scleral icterus Pupil Exam: absent: Irregular, Unequal - ENT Exam ENT Exam: Mucous Membranes Moist - Neck Exam Neck exam: Positive for: Full Rom. Negative for: Lymphadenopathy, Thyromegaly - Respiratory Exam Respiratory Exam: Clear to Auscultation Bilateral, NORMAL BREATHING PATTERN. absent: Accessory Muscle Use, Chest Wall Tenderness, Decreased Breath Sounds, Rales, Rhonchi, Wheezes - Cardiovascular Exam Cardiovascular Exam: REGULAR RHYTHM, RRR, +S1, +S2. absent: Bradycardia, Tachycardia, Irregular Rhythm, +S4 - GI/Abdominal Exam GI & Abdominal Exam: Firm, Normal Bowel Sounds, Organomegaly (hepatomegaly), Tenderness. absent: Guarding, Rigid, Soft - Extremities Exam Extremities exam: Positive for: pedal pulses present. Negative for: calf tenderness, joint swelling, pedal edema, tenderness - Neurological Exam awake and alert, oriented x4 (self, location, year, president), following all commands appropriately motor appears grossly intact and equal hesitant but stable gait with walker when ambulating with PT - Psychiatric Exam Psychiatric exam: Normal Affect, Normal Mood - Skin Skin Exam: Dry, Intact, Normal Color, Warm Discharge Plan - Discharge Medications Prescriptions: hydrOXYzine HCl [Atarax] 10 mg PO HS #30 tab Lactulose [Enulose] 20 gm PO BID #60 udc Midodrine [Proamatine] 10 mg PO TID 90 Days #30 tab Nadolol [Corgard] 10 mg PO DAILY #30 tab Pantoprazole [Protonix EC Tab] 40 mg PO DAILY #30 ect Rifaximin [Xifaxan] 550 mg PO BID #60 tablet Tamsulosin [Flomax] 0.4 mg PO DAILY #30 cap - Follow Up Plan Condition: GOOD Disposition: HOME/ ROUTINE Instructions: Kidney Failure, Cirrhosis (DC), Acute Abdominal Pain (DC) Additional Instructions: Please maintain your scheduled follow up with the [facility] Liver Transplant Team this (03/02/18) Please resume all home medications as prescribed (all refill prescriptions except for Xanax were electronically transmitted to the in-house outpt pharmacy , to be available to you on discharge). Please follow up with your PMD within 1 week of discharge; any additional refills of Xanax will be as per your PMD Please return to the hospital if you experience any new or concerning symptoms. Referrals: Surinder Bishop MD [Primary Care Provider] - <Fay Das - Last Filed: 03/01/18 16:46> Provider - Provider Date of Admission: 02/22/18 18:57 Attending physician: Fay Das MD Primary care physician: Surinder Bishop MD Hospital Course - Lab Results Lab Results: Most Recent Lab Values WBC 5.8 10^3/ul (4.5-11.0) 02/27/18 07:30 RBC 2.81 10^6/uL (3.5-6.1) L 02/27/18 07:30 Hgb 9.6 g/dL (14.0-18.0) L 02/27/18 07:30 Hct 28.5 % (42.0-52.0) L 02/27/18 07:30 MCV 101.4 fl (80.0-105.0) 02/27/18 07:30 MCH 34.2 pg (25.0-35.0) 02/27/18 07:30 MCHC 33.7 g/dl (31.0-37.0) 02/27/18 07:30 RDW 16.7 % (11.5-14.5) H 02/27/18 07:30 Plt Count 89 10^3/uL (120.0-450.0) L 02/27/18 07:30 MPV 8.8 fl (7.0-11.0) 02/27/18 07:30 Gran % 53.5 % (50.0-68.0) 02/27/18 07:30 Lymph % (Auto) 19.3 % (22.0-35.0) L 02/27/18 07:30 Branch % (Auto) 25.5 % (1.0-6.0) H 02/27/18 07:30 Eos % (Auto) 1.5 % (1.5-5.0) 02/27/18 07:30 Baso % (Auto) 0.2 % (0.0-3.0) 02/27/18 07:30 Gran # 3.12 (1.4-6.5) 02/27/18 07:30 Lymph # (Auto) 1.1 (1.2-3.4) L 02/27/18 07:30 Branch # (Auto) 1.5 (0.1-0.6) H 02/27/18 07:30 Eos # (Auto) 0.1 (0.0-0.7) 02/27/18 07:30 Baso # (Auto) 0.01 K/mm3 (0.0-2.0) 02/27/18 07:30 Neutrophils % (Manual) 55 % (50.0-70.0) 02/27/18 07:30 Band Neutrophils % 1 % (0-2) 02/27/18 07:30 Lymphocytes % (Manual) 15 % (22.0-35.0) L 02/27/18 07:30 Monocytes % (Manual) 28 % (1.0-6.0) H 02/27/18 07:30 Eosinophils % (Manual) 1 % (0.0-3.0) 02/27/18 07:30 Platelet Evaluation Low (NORMAL) 02/27/18 07:30 Sodium 136 mmol/L (132-148) 02/27/18 07:30 Potassium 3.8 mmol/L (3.6-5.0) 02/27/18 07:30 Chloride 104 mmol/L (98-107) 02/27/18 07:30 Carbon Dioxide 23 mmol/L (21-33) 02/27/18 07:30 Anion Gap 13 (10-20) 02/27/18 07:30 BUN 33 mg/dL (7-21) H 02/27/18 07:30 Creatinine 1.3 mg/dl (0.8-1.5) 02/27/18 07:30 Est GFR ( Amer) > 60 02/27/18 07:30 Est GFR (Non-Af Amer) 56 04 07:30 Random Glucose 101 mg/dL (70-110) 02/27/18 07:30 Calcium 9.7 mg/dL (8.4-10.5) 02/27/18 07:30 Phosphorus 3.0 mg/dL (2.5-4.5) 02/27/18 07:30 Magnesium 2.0 mg/dL (1.7-2.2) 02/27/18 07:30 Total Bilirubin 3.1 mg/dL (0.2-1.3) H 02/27/18 07:30 AST 70 U/L (17-59) H 02/27/18 07:30 ALT 44 U/L (7-56) 02/27/18 07:30 Alkaline Phosphatase 285 U/L (38-126) H 02/27/18 07:30 Total Protein 8.0 g/dL (5.8-8.3) 02/27/18 07:30 Albumin 3.3 g/dL (3.0-4.8) 02/27/18 07:30 Globulin 4.7 gm/dL 02/27/18 07:30 Albumin/Globulin Ratio 0.7 (1.1-1.8) L 02/27/18 07:30 Attending/Attestation - Attestation I have personally seen and examined this patient.: Yes I have fully participated in the care of the patient.: Yes I have reviewed all pertinent clinical information, including history, physical exam and plan: Yes Notes (Text): I have seen and examined the patient at bedside. Agree with the above note with the following additions/ exceptions: Briefly this is 62 year old male with history of CAD s/p stent, Afib s/p cardioconversion, anemia, GI bleed, esophageal varices, acute on chronic kidney disease and Non-alcoholic liver cirrhosis who is admitted with abdominal distention and back discomfort. Patient underwent large volume paracentesis. Denies any abdominal pain. Patient has been participating in PT in TCU. His creatinine is getting better. Continue midodrine, nadolol, lactulose and rifaxamin. [facility].Upon discharge the patient will follow-up with PMD Dr. Bishop. Dr Fay Das
[2018-02-28 16:58] VITALS: BP 112/59; PULSE 76; TEMP 98.6
== END 2018-02-28 18:43 | disposition home or self-care (01) | DRG 945 ==
LOC: TRCU 18:57
PROVIDERS: ADMIT Internal Medicine; ATTEND Hospitalist
PROC: F07Z9FZ Gait Training/Functional Ambulation Treatment using Assistive, Adaptive, Supportive or Protective Equipment (ICD-10-PCS; principal; 2018-02-23)
PROC: F08Z4FZ Home Management Treatment using Assistive, Adaptive, Supportive or Protective Equipment (ICD-10-PCS; 2018-02-23)
DX: R53.1 Weakness (principal); N17.9 Acute kidney failure, unspecified; I50.32 Chronic diastolic (congestive) heart failure; I13.0 Hypertensive heart and chronic kidney disease with heart failure and stage 1 through stage 4 chronic kidney disease, or unspecified chronic kidney disease; N18.3 Chronic kidney disease, stage 3 (moderate); K74.60 Unspecified cirrhosis of liver; R18.8 Other ascites; I85.00 Esophageal varices without bleeding; K72.90 Hepatic failure, unspecified without coma; K21.9 Gastro-esophageal reflux disease without esophagitis; I48.91 Unspecified atrial fibrillation; I25.10 Atherosclerotic heart disease of native coronary artery without angina pectoris; D64.9 Anemia, unspecified; G89.29 Other chronic pain; M54.9 Dorsalgia, unspecified; R09.81 Nasal congestion; Z95.5 Presence of coronary angioplasty implant and graft

== ENCOUNTER 2018-03-24 02:19 | Inpatient (IN) | payer BC ==
[2018-03-24 02:20] VITALS: BMI 19.6
--- NOTE | 2018-03-24 03:13 | ED PDOC ---
Arrival/HPI - General Chief Complaint: Dizziness/Lightheaded Time Seen by Provider: 03/24/18 02:24 Historian: Patient - History of Present Illness Narrative History of Present Illness (Text): 03/24/18 03:07 A 63 year old male, whose past medical history includes HTN, diastolic CHF, Atrial Fibrillation s/p cardioversion, CKD stage 3B, non-alcoholic liver cirrhosis of unclear etiology, hepatic encephalopathy, chronic ascites, esophageal varices s/p banding, and GERD,presents to the emergency department s/ p fall this evening. The patient states that he became lightheaded and fell out of bed this evening. He notes that when he fell, he hit his head and left side of the face without loosing consciousness. The patient also complains of lower back pain. He notes that he had a paracentesis procedure done 2.5 weeks ago. The patient denies fevers, chills, chest pain, shortness of breath, dyspnea on exertion, cough, abdominal pain, nausea, vomiting, diarrhea, neck pain, or any other complaint. PMD: Dr. Bishop Time/Duration: Other (3 weeks) Symptom Onset: Sudden Symptom Course: Unchanged Activities at Onset: Rest, Light Context: Home Past Medical History - Provider Review Nursing Documentation Reviewed: Yes - Infectious Disease Hx of Infectious Diseases: None - Tetanus Immunization Tetanus Immunization: Unknown - Cardiac Hx Cardiac Arrhythmia: Yes (AFIB) - Pulmonary Hx Respiratory Disorders: Yes Hx Pneumonia: Yes (09/06) - Neurological Hx Neurological Disorder: No - HEENT Hx HEENT Disorder: No - Renal Hx Renal Failure: Yes - Endocrine/Metabolic Hx Endocrine Disorders: No - Hematological/Oncological Hx Blood Disorders: Yes Hx Cirrhosis: Yes (PARACENTESIS) - Integumentary Hx Dermatological Disorder: No - Musculoskeletal/Rheumatological Hx Back Pain: Yes Hx Falls: Yes - Gastrointestinal Hx Liver Failure: Yes Other/Comment: ESOPHAGEAL VARICES -[id number] waiting for transplant nonalcoholic cirrhosis - Genitourinary/Gynecological Hx Genitourinary Disorders: No - Psychiatric Hx Psychophysiologic Disorder: Yes Hx Anxiety: Yes Hx Substance Use: No - Surgical History Hx Coronary Stent: Yes (09/05/17 x1) - Anesthesia Hx Anesthesia: Yes Hx Anesthesia Reactions: No Hx Malignant Hyperthermia: No Family/Social History - Physician Review Nursing Documentation Reviewed: Yes Family/Social History: No Known Family HX Smoking Status: Former Smoker Hx Alcohol Use: No Hx Substance Use: No Allergies/Home Meds Allergies/Adverse Reactions: Allergies Beef Containing Products Allergy (Severe, Verified 03/24/18 02:37) ANAPHYLAXIS tounge swelling, beef derived (bovine) Allergy (Severe, Verified 03/24/18 02:37) ANAPHYLAXIS tounge swelling banana Allergy (Intermediate, Verified 03/24/18 02:37) ITCHING velcro Allergy (Uncoded 03/24/18 02:37) ITCHING Home Medications: Home Meds Medication Instructions Recorded Confirmed Cholecalciferol (Vitamin D3) 2,000 unit PO DAILY 11/20/17 03/24/18 [Vitamin D3] Cyanocobalamin [Vitamin B12 1000 1,000 mcg PO DAILY 11/20/17 03/24/18 mcg Tab] ALPRAZolam [Xanax] 0.5 mg PO HS 01/25/18 03/24/18 Furosemide [Lasix] 10 mg PO DAILY 03/24/18 03/24/18 Lactulose [Enulose] 30 ml PO DAILY 03/24/18 03/24/18 Spironolactone [Aldactone] 25 mg PO DAILY 03/24/18 03/24/18 Zinc Sulfate [Orazinc 220] 220 mg PO BID 03/24/18 03/24/18 Review of Systems - Physician Review All systems were reviewed & negative as marked: Yes - Review of Systems Constitutional: absent: Fevers Cardiovascular: absent: Chest Pain Physical Exam - Physical Exam Narrative Physical Exam (Text): 03/24/18 03:14 Constitutional: No acute distress. Head: Normocephalic. Tenderness to frontal forehead and left maxilla. Eyes: PERRL. ENT: Moist mucous membranes. Neck: Supple. Cardiovascular: Regular rate. Chest: No tenderness. Respiratory: Clear to auscultation bilaterally. GI: Soft. Nontender. Nondistended. Back: No CVA tenderness. Bilateral lumbar tenderness. No midline tenderness. Musculoskeletal: No tenderness or swelling of extremities. Skin: No rash. Neurologic: Alert, no focal deficit. Vital Signs Reviewed: Yes Vital Signs Temp Pulse Resp BP Pulse Ox 03/24/18 02:37 97.4 F L 61 18 120/81 99 Temperature: Hypothermic Blood Pressure: Normal Pulse: Regular Respiratory Rate: Normal Appearance: Positive for: Well-Appearing, Non-Toxic, Comfortable Pain Distress: None Mental Status: Positive for: Alert and Oriented X 3 Medical Decision Making ED Course and Treatment: 03/24/18 03:15 Impression: A 63 year old male presents to the emergency department s/p fall. Patient notes that he felt lightheaded and fell on his head and left side of face. he also complains of lower back pain. Plan: -- Chest X-ray -- Head CT -- Orbits/Facial CT -- Labs -- Urinalysis -- Urine Culture -- Reassess and disposition Progress Notes: EXAM: CT Orbits Without Intravenous Dictated and Authenticated by: Gurinder Olson MD 03/24/2018 4:38 AM Eastern Time ([place] & [place]) IMPRESSION: No acute findings. EXAM: CT Head Without Intravenous Dictated and Authenticated by: Gurinder Olson MD 03/24/2018 4:40 AM Eastern Time ([place] & [place]) IMPRESSION: 1. Mild cerebral and cerebellar atrophy. 2. Mild small vessel ischemic/degenerative changes. XR Chest, 1 View Dictated and Authenticated by: Gurinder Olson MD 03/24/2018 4:47 AM Eastern Time ([place] & [place]) IMPRESSION: Infiltrate in the right lung base concerning for pneumonia. 03/24/18 05:07: Case discussed with Dr. Coleman. - Lab Interpretations Lab Results: 03/24/18 03:19 03/24/18 03:19 Lab Results 03/24/18 03:19: Sodium 137, Potassium 4.3, Chloride 106, Carbon Dioxide 22, Anion Gap 13, BUN 36 H, Creatinine 1.7 H, Est GFR ( Amer) 50, Est GFR ( Non-Af Amer) 41, Random Glucose 115 H, Calcium 8.7, Total Bilirubin 1.6 H, AST 74 H, ALT 37, Alkaline Phosphatase 350 H D, Total Protein 7.5, Albumin 3.0, Globulin 4.5, Albumin/Globulin Ratio 0.7 L 03/24/18 03:19: WBC 4.8, RBC 3.06 L, Hgb 10.4 L, Hct 30.8 L, MCV 100.7, MCH 34.0 , MCHC 33.8, RDW 16.0 H, Plt Count 99 L, MPV 10.7, Gran % 49.0 L, Lymph % (Auto ) 28.8, Mill[place] % (Auto) 17.7 H, Eos % (Auto) 3.5, Baso % (Auto) 1.0, Gran # 2.34, Lymph # (Auto) 1.4, Mill[place] # (Auto) 0.9 H, Eos # (Auto) 0.2, Baso # (Auto) 0.05 I have reviewed the lab results: Yes - RAD Interpretation Radiology Orders: 03/24/18 02:57 HEAD W/O CONTRAST [CT] Stat ORBITS/ FACIALS W/O CONTRAST [CT] Stat CHEST PORTABLE [RAD] Stat - EKG Interpretation Interpreted by ED Physician: Yes Type: 12 lead EKG - Medication Orders Current Medication Orders: Cefepime HCl (Maxipime 1gm) 1 gm in 100 mls @ 100 mls/hr IVPB STAT STA PRN Reason: Protocol Stop: 03/24/18 05:54 Discontinued Medications Morphine Sulfate (Morphine) 2 mg IVP STAT STA Stop: 03/24/18 04:43 - Scribe Statement The provider has reviewed the documentation as recorded by the Lizetibbossman Mugnuia Provider Scribe Attestation: All medical record entries made by the Scribe were at my direction and personally dictated by me. I have reviewed the chart and agree that the record accurately reflects my personal performance of the history, physical exam, medical decision making, and the department course for this patient. I have also personally directed, reviewed, and agree with the discharge instructions and disposition. Disposition/Present on Arrival - Present on Arrival Any Indicators Present on Arrival: No History of DVT/PE: No History of Uncontrolled Diabetes: No Urinary Catheter: No History of Decub. Ulcer: No History Surgical Site Infection Following: None - Disposition Have Diagnosis and Disposition been Completed?: Yes Diagnosis: Pneumonia Disposition: HOSPITALIZED Disposition Time: 04:55 Patient Plan: Observation Condition: FAIR Forms: Branch2 (Faroese)
[2018-03-24 03:39] LABS: BASO # 0.05 K/mm3 (0.0-2.0); EOS # 0.2 (0.0-0.7); EOS % 3.5 % (1.5-5.0); GRAN # 2.34 (1.4-6.5); HEMOGLOBIN 10.4 g/dL (14.0-18.0); LYMPH # 1.4 (1.2-3.4); LYMPH % 28.8 % (22.0-35.0); MEAN CELL VOLUME 100.7 fl (80.0-105.0); MEAN CORPUSCULAR HGB CONC 33.8 g/dl (31.0-37.0); MEAN PLATELET VOLUME 10.7 fl (7.0-11.0); MONO # 0.9 (0.1-0.6); MONO % 17.7 % (1.0-6.0); RBC 3.06 10^6/uL (3.5-6.1); WHITE BLOOD COUNT 4.8 10^3/ul (4.5-11.0)
[2018-03-24 03:47] LABS: ALB/GLOB RATIO 0.7 (1.1-1.8); CALCIUM 8.7 mg/dL (8.4-10.5)
[2018-03-24] MEDS ORDERED: Morphine 4 mg/ml ISec IVP STA (04:42)
[2018-03-24] MEDS ORDERED: Cefepime 1gm in NS 100ml 1 GM/100 ML BAG IVPB STA (04:55)
--- NOTE | 2018-03-24 05:49 | CP.PCM.HP ---
<Rafael Tineo - Last Filed: 03/24/18 05:36> History of Present Illness - History of Present Illness History of Present Illness: Medicine H&P: Dr. Coleman Chief Complaint: Fall HPI: 63 year old male with a complicated past medical history presents s/p fall. Patient states that when he was getting out of bed this morning, his foot got stuck in his blanket, which caused him to fall and hit his head on a soft surface which he thinks was his bed. Patient denies aura before falling or loss of consciousness. Patient states that his head hurts despite the soft surface, as does the front of his face. Patient is also complaining of unrelated back pain that has been going on for a few days now, which makes it difficult to lay flat in bed. In the ED a chest XR was done which showed a possible RLL infiltrate - but patient denies subjective fevers, productive cough, or shortness of breath. Review of Systems: 12 point ROS obtained and negative except as per HPI PMH: HTN, diastolic CHF, Atrial Fibrillation s/p cardioversion, CKD stage 3B, non-alcoholic liver cirrhosis of unclear etiology, hepatic encephalopathy, chronic ascites, esophageal varices s/p banding, and GERD PSH: Inguinal hernia repair Social History: Denies alcohol, drug used; Former smoker, quit 1.5 years ago Family History: Mother - [place], heart disease; Father - [place] Allergies: Beef products, banana Home Medications: Reviewed, as per MAR PMD: Dr. Bishop Present on Admission - Present on Admission Any Indicators Present on Admission: No Past Patient History - Infectious Disease Hx of Infectious Diseases: None - Tetanus Immunizations Tetanus Immunization: Unknown - Past Medical History & Family History Past Medical History?: Yes - Past Social History Smoking Status: Former Smoker - CARDIAC Hx Cardia Arrhythmia: Yes (AFIB) - PULMONARY Hx Respiratory Disorders: Yes Hx Pneumonia: Yes (09/06) - NEUROLOGICAL Hx Neurological Disorder: No - HEENT Hx HEENT Problems: No - RENAL Hx Renal Failure: Yes - ENDOCRINE/METABOLIC Hx Endocrine Disorders: No - HEMATOLOGICAL/ONCOLOGICAL Hx Blood Disorders: Yes Hx Cirrhosis: Yes (PARACENTESIS) - INTEGUMENTARY Hx Dermatological Problems: No - MUSCULOSKELETAL/RHEUMATOLOGICAL Hx Back Pain: Yes Hx Falls: Yes - GASTROINTESTINAL Hx Liver Failure: Yes Other/Comment: ESOPHAGEAL VARICES -[id number] waiting for transplant nonalcoholic cirrhosis - GENITOURINARY/GYNECOLOGICAL Hx Genitourinary Disorders: No - PSYCHIATRIC Hx Psychophysiologic Disorder: Yes Hx Anxiety: Yes Hx Substance Use: No - SURGICAL HISTORY Hx Coronary Stent: Yes (09/05/17 x1) - ANESTHESIA Hx Anesthesia: Yes Hx Anesthesia Reactions: No Hx Malignant Hyperthermia: No Meds Allergies/Adverse Reactions: Allergies Allergy/AdvReac Type Severity Reaction Status Date / Time Beef Containing Products Allergy Severe ANAPHYLAXIS Verified 03/24/18 02:37 beef derived (bovine) Allergy Severe ANAPHYLAXIS Verified 03/24/18 02:37 banana Allergy Intermediate ITCHING Verified 03/24/18 02:37 velcro Allergy ITCHING Uncoded 03/24/18 02:37 Physical Exam - Constitutional Appears: Chronically Ill Additional comments: Jaundiced - Head Exam Head Exam: ATRAUMATIC, NORMAL INSPECTION, NORMOCEPHALIC - Eye Exam Eye Exam: EOMI, Normal appearance, PERRL Pupil Exam: NORMAL ACCOMODATION, PERRL - ENT Exam ENT Exam: Mucous Membranes Moist, Normal Exam - Neck Exam Neck exam: Positive for: Normal Inspection - Respiratory Exam Respiratory Exam: Clear to Auscultation Bilateral, NORMAL BREATHING PATTERN - Cardiovascular Exam Cardiovascular Exam: REGULAR RHYTHM - GI/Abdominal Exam GI & Abdominal Exam: Normal Bowel Sounds, Soft. absent: Tenderness - Extremities Exam Extremities exam: Positive for: normal inspection - Back Exam Back exam: NORMAL INSPECTION - Neurological Exam Neurological exam: Alert, CN II-XII Intact, Normal Gait, Oriented x3, Reflexes Normal - Psychiatric Exam Psychiatric exam: Normal Affect, Normal Mood - Skin Skin Exam: Dry, Intact, Normal Color, Warm Results - Vital Signs Recent Vital Signs: Last Vital Signs Temp 97.4 F L 03/24/18 02:37 Pulse 61 03/24/18 02:37 Resp 18 03/24/18 02:37 BP 120/81 03/24/18 02:37 Pulse Ox 99 03/24/18 02:37 - Labs Result Diagrams: 03/24/18 03:19 03/24/18 03:19 Labs: Laboratory Results - last 24 hr 03/24/18 03/24/18 03:19 03:19 WBC 4.8 RBC 3.06 L Hgb 10.4 L Hct 30.8 L MCV 100.7 MCH 34.0 MCHC 33.8 RDW 16.0 H Plt Count 99 L MPV 10.7 Gran % 49.0 L Lymph % (Auto) 28.8 [place] % (Auto) 17.7 H Eos % (Auto) 3.5 Baso % (Auto) 1.0 Gran # 2.34 Lymph # (Auto) 1.4 [place] # (Auto) 0.9 H Eos # (Auto) 0.2 Baso # (Auto) 0.05 Sodium 137 Potassium 4.3 Chloride 106 Carbon Dioxide 22 Anion Gap 13 BUN 36 H Creatinine 1.7 H Est GFR ( Amer) 50 Est GFR (Non-Af Amer) 41 Random Glucose 115 H Calcium 8.7 Total Bilirubin 1.6 H AST 74 H ALT 37 Alkaline Phosphatase 350 H D Total Protein 7.5 Albumin 3.0 Globulin 4.5 Albumin/Globulin Ratio 0.7 L Assessment & Plan - Assessment and Plan (Free Text) Assessment: 63 year old male with a complicated past medical history pertinent for CKD stage 3B, non-alcoholic liver cirrhosis of unclear etiology, hepatic encephalopathy and chronic ascites presents s/p fall. Head CT and Orbital CT negative for any acute processes. Patient had seven liters of ascitic fluid drained by IR on 02/20 negative for signs of SBP, and is normotensive here. Patient had a chest XR in the ED that showed a questionable RLL infiltrate but there are no SIRS criteria present, nor does patient have clinical signs and symptoms suggestive of a pneumonia. Per laboratory review, he was found to have prerenal azotemia superimposed on Stage 3B CKD. Patient further complained of back pain which is chronic for him. Rest of his chronic medical problems as listed below. Plan: Possible Syncopal Episode VS Mechanical Fall - Maintain normotensive - Daily ammonia levels *Pending results, consider work up as syncopal episode Prerenal Azotemia on CKD Stage 3B - Hold IVF hydration until ultrasound of abdomen to determine if patient needs fluid drainage - Avoid nephrotoxic drugs Possible Pneumonia - Urine Strep Pneumonia, Legionella, Procalcitonin - Levaquin PO 750 for 5days Non-Alcoholic Liver Cirrhosis with Ascites and Esophageal Varices - Continue Lactulose, Rifaximin, Lasix, Zofran - Nadolol for esophageal varices with Midodrine to maintain blood pressure - Low sodium/fluid restricted (1500) heart healthy diet with supplemental Ensure Enlive Chronic Back Pain -Continue IVP Morphine History of Anxiety -Continue home Xanax and Atarax GI/DVT Prophylaxis - Pepcid/SCD(patient's platelet count is low and INR is elevated) <Felicita Rosales - Last Filed: 03/25/18 14:15> Results - Vital Signs Recent Vital Signs: Last Vital Signs Temp 98 F 03/25/18 08:39 Pulse 70 03/25/18 09:11 Resp 18 03/25/18 08:39 BP 112/59 L 03/25/18 09:11 Pulse Ox 97 03/25/18 08:39 - Labs Result Diagrams: 03/25/18 05:30 03/25/18 05:30 Labs: Laboratory Results - last 24 hr 03/25/18 03/25/18 03/25/18 05:30 05:30 05:30 WBC 5.7 RBC 3.39 L Hgb 11.5 L Hct 34.5 L MCV 101.8 MCH 33.9 MCHC 33.3 RDW 16.1 H Plt Count 95 L MPV 10.3 Gran % 55.3 Lymph % (Auto) 18.5 L [place] % (Auto) 22.2 H Eos % (Auto) 3.3 Baso % (Auto) 0.7 Gran # 3.14 Lymph # (Auto) 1.1 L [place] # (Auto) 1.3 H Eos # (Auto) 0.2 Baso # (Auto) 0.04 Neutrophils % (Manual) 64 Lymphocytes % (Manual) 27 Monocytes % (Manual) 5 Eosinophils % (Manual) 3 Myelocytes % 1 Platelet Evaluation Low PT 15.0 H INR 1.30 H APTT 26.8 Sodium 141 Potassium 5.2 H Chloride 109 H Carbon Dioxide 22 Anion Gap 15 BUN 37 H Creatinine 1.5 Est GFR ( Amer) 57 Est GFR (Non-Af Amer) 47 Random Glucose 86 Calcium 8.9 Phosphorus 3.2 Magnesium 2.1 Total Bilirubin 2.7 H AST 64 H ALT 37 Alkaline Phosphatase 342 H Ammonia Total Protein 7.7 Albumin 3.0 Globulin 4.7 Albumin/Globulin Ratio 0.6 L 03/25/18 05:30 WBC RBC Hgb Hct MCV MCH MCHC RDW Plt Count MPV Gran % Lymph % (Auto) [place] % (Auto) Eos % (Auto) Baso % (Auto) Gran # Lymph # (Auto) [place] # (Auto) Eos # (Auto) Baso # (Auto) Neutrophils % (Manual) Lymphocytes % (Manual) Monocytes % (Manual) Eosinophils % (Manual) Myelocytes % Platelet Evaluation PT INR APTT Sodium Potassium Chloride Carbon Dioxide Anion Gap BUN Creatinine Est GFR ( Amer) Est GFR (Non-Af Amer) Random Glucose Calcium Phosphorus Magnesium Total Bilirubin AST ALT Alkaline Phosphatase Ammonia 23 Total Protein Albumin Globulin Albumin/Globulin Ratio Attending/Attestation - Attestation I have personally seen and examined this patient.: Yes I have fully participated in the care of the patient.: Yes I have reviewed all pertinent clinical information: Yes Notes (Text): 03/25/18 14:01 Attending note; he shouldn't seen and examined with resident in ER. Patient is a 62 -year-old male with PMH of CAD s/p stent, Afib s/p cardioconversion, anemia, GI bleed ,esophageal varices banding ,acute on chronic kidney disease and Non-alcoholic liver cirrhosis is admitted with mechanical fall. According to the patient he tripped and fell over a blanket.' Denies any syncope. Denies any chest pain. Denies any palpitation. Currently EKG with normal sinus rhythm. Troponin is negative. Head CT is negative. Maxillofacial CT is negative. chest x-ray showed right lower lobe infiltrate; patient is afebrile and nontoxic. WBC count is normal. Got cefepime. currently on levofloxacin. mild ascites; status post large volume paracentesis last week. Acute on chronic kidney disease; Lasix and Aldactone on hold. monitor creatinine closely. Continue midodrine. Cirrhosis ; continue nadolol, lactulose and rifaximin. Patient follows up with [facility]. physical therapy evaluation requested. Upon discharge the patient will follow-up with PMD Dr. Bishop.
[2018-03-24] MEDS: Pantoprazole 40 mg EC Tab PO SCH (06:34)
--- NOTE | 2018-03-24 07:08 | RAD ---
HISTORY: r/o PNA COMPARISON: 02/19/2018 FINDINGS: LUNGS: Right lower lobe infiltrate obscuring the right hemidiaphragm. PLEURA: The right pleural effusion CARDIOVASCULAR: No radiographic findings to suggest acute or significant cardiovascular disease. OSSEOUS STRUCTURES: No significant abnormalities. VISUALIZED UPPER ABDOMEN: Normal. OTHER FINDINGS: None. IMPRESSION: New right lower lobe infiltrate/right pleural effusion.
[2018-03-24 07:10] LABS: URINE BILIRUBIN NEGATIVE (NEGATIVE); URINE BLOOD NEGATIVE (NEGATIVE); URINE GLUCOSE (UA) NEGATIVE (NEGATIVE); URINE LEUKOCYTE ESTERASE TRACE Leu/uL (NEGATIVE); URINE PROTEIN TRACE mg/dL (<30 mg/dL); URINE UROBILINOGEN 0.2 E.U./dL (<1 E.U./dL)
[2018-03-24 07:12] LABS: URINE APPEARANCE CLEAR (CLEAR); URINE COLOR YELLOW (YELLOW)
[2018-03-24 07:24] LABS: URINE RBC 0 - 2 /hpf (0-2)
[2018-03-24 07:25] LABS: URINE BACTERIA MOD (NEG)
--- NOTE | 2018-03-24 09:22 | CT ---
PROCEDURE: CT HEAD WITHOUT CONTRAST. HISTORY: fall, headstrike COMPARISON: 01/12/2018 TECHNIQUE: Axial computed tomography images were obtained through the head/brain without intravenous contrast. Radiation dose: Total exam DLP = 907 mGy-cm. This CT exam was performed using one or more of the following dose reduction techniques: Automated exposure control, adjustment of the mA and/or kV according to patient size, and/or use of iterative reconstruction technique. FINDINGS: HEMORRHAGE: No intracranial hemorrhage. BRAIN: No mass effect or edema. Mild atrophy. VENTRICLES: Unremarkable. No hydrocephalus. CALVARIUM: Unremarkable. PARANASAL SINUSES: Unremarkable as visualized. No significant inflammatory changes. MASTOID AIR CELLS: Unremarkable as visualized. No inflammatory changes. OTHER FINDINGS: The report concurs with the preliminary [facility] report IMPRESSION: No acute findings
--- NOTE | 2018-03-24 09:26 | CT ---
PROCEDURE: CT MAXILLOFACIAL BONES WITHOUT CONTRAST HISTORY: fall, headstrike COMPARISON: None TECHNIQUE: Contiguous axial CT images of the maxillofacial bones were obtained. Coronal and sagittal reformats were generated. Radiation dose: Total exam DLP = 1041 mGy-cm. This CT exam was performed using one or more of the following dose reduction techniques: Automated exposure control, adjustment of the mA and/or kV according to patient size, and/or use of iterative reconstruction technique. FINDINGS: NASAL BONES: Unremarkable. ORBITS: Unremarkable. PARANASAL SINUSES/ MASTOIDS: Clear. MAXILLA: Unremarkable. MANDIBLE/ TEMPOROMANDIBULAR JOINTS: The patient is nearly completely edentulous. There are no lytic lesions to suggest abscess SKULL BASE: Unremarkable. TEMPORAL BONES: Middle ears and mastoid grossly unremarkable. OTHER FINDINGS: The report concurs with the preliminary [facility] report IMPRESSION: No acute findings
[2018-03-24 09:42] LABS: TROPONIN I < 0.01 ng/mL
[2018-03-24] MEDS ORDERED: levoFLOXacin 750 MG TAB PO SCH (10:00)
--- NOTE | 2018-03-24 10:08 | CT ---
PROCEDURE: CT Lumbar Spine without contrast HISTORY: back pain COMPARISON: None. TECHNIQUE: Axial computed tomography images were obtained of the lumbar spine without the use of intravenous contrast. Coronal and sagittal reformatted images were created and reviewed. Radiation dose: Total exam DLP = 1406 mGy-cm. This CT exam was performed using one or more of the following dose reduction techniques: Automated exposure control, adjustment of the mA and/or kV according to patient size, and/or use of iterative reconstruction technique. FINDINGS: VERTEBRAE: Unremarkable. No fracture. Normal alignment. DISCS/SPINAL CANAL/NEURAL FORAMINA: L1-2: There is a mild chronic appearing compression deformity of the inferior endplate of L1 L2-3: Mild to moderate diffuse disc bulge without stenosis L3-4: Severe disc degeneration with loss of disc height and moderate disc bulging. There is facet arthropathy. There is severe central stenosis. L4-5: There is disc degeneration and disc bulging. There is severe facet arthropathy with foraminal stenosis left greater than right L5-S1: Facet arthropathy with bilateral foraminal stenosis. PARASPINAL SOFT TISSUES: Unremarkable. OTHER FINDINGS: None. IMPRESSION: Multilevel degenerative changes. Severe central stenosis at L3-4. Foraminal stenosis at L4-5 and L5-S1. See comments
--- NOTE | 2018-03-24 10:16 | CT ---
PROCEDURE: CT Thoracic Spine without contrast HISTORY: back pain COMPARISON: None. TECHNIQUE: Axial computed tomography images were obtained of the thoracic spine without intravenous contrast. Coronal and sagittal reformatted images were created and reviewed. Radiation dose: Total exam DLP = 925 mGy-cm. This CT exam was performed using one or more of the following dose reduction techniques: Automated exposure control, adjustment of the mA and/or kV according to patient size, and/or use of iterative reconstruction technique. FINDINGS: VERTEBRAE: Multiple mild compression deformities are seen throughout the thoracic spine. These are probably chronic. These can be seen from T7 through T12. Disc degeneration with a vacuum disc is also seen at several levels. There is no encroachment of the spinal canal.. DISCS/SPINAL CANAL/NEURAL FORAMINA: Within the limits of the CT technique, no disc herniation seen. No central canal or neural foraminal stenosis.. PARASPINAL SOFT TISSUES: Unremarkable. OTHER FINDINGS: There is a small right-sided pleural effusion with adjacent consolidation in the right lower lobe.. IMPRESSION: Multiple mild compression deformities in the mid and lower thoracic spine. These are probably chronic. No evidence of spinal stenosis
[2018-03-24] MEDS: Cholecalciferol 1,000 INTLU TAB PO SCH (10:59)
--- NOTE | 2018-03-24 11:21 | US ---
HISTORY: Ascites COMPARISON: 02/19/2018 TECHNIQUE: Sonographic evaluation of the abdomen. FINDINGS: LIVER: Measures 15.8 cm. Nodular contour. Hepatopedal blood flow. Fatty infiltration manifest ultrasonographically as increased Echogenicity of the liver parenchyma. No mass. No intrahepatic bile duct dilatation. GALLBLADDER: Unremarkable. No gallstones. COMMON BILE DUCT: Measures 3.3 mm. No stones. No dilatation. PANCREAS: Unremarkable as visualized. No mass. No ductal dilatation. RIGHT KIDNEY: Measures 4.3 x 10.0cm. Normal echogenicity. No calculus, mass, or hydronephrosis. LEFT KIDNEY: Measures 5.4 x 11.4cm. Normal echogenicity. No calculus, mass, or hydronephrosis. SPLEEN: Normal in size and contour. No mass. AORTA: No aneurysmal dilatation. IVC: Unremarkable. OTHER FINDINGS: Intra-abdominal ascites. Incompletely visualized bilateral pleural effusions. IMPRESSION: Cirrhotic liver without focal abnormality. Incompletely visualized intra-abdominal ascites similar to that seen previously. Bilateral pleural are incompletely visualized.
[2018-03-24] MEDS ORDERED: Cefepime 1gm in NS 100ml 1 GM/100 ML BAG IVPB SCH (18:00)
[2018-03-24] MEDS: Morphine 4 mg/ml ISec IVP PRN (19:51)
[2018-03-25] MEDS: Morphine 4 mg/ml ISec IVP PRN ×3 (02:35→21:25)
[2018-03-25] MEDS: Pantoprazole 40 mg EC Tab PO SCH (05:20)
[2018-03-25 06:56] LABS: BASO # 0.04 K/mm3 (0.0-2.0); BASO % 0.7 % (0.0-3.0); EOS # 0.2 (0.0-0.7); EOS % 3.3 % (1.5-5.0); GRAN # 3.14 (1.4-6.5); GRAN % 55.3 % (50.0-68.0); HEMOGLOBIN 11.5 g/dL (14.0-18.0); LYMPH # 1.1 (1.2-3.4); LYMPH % 18.5 % (22.0-35.0); MEAN CELL VOLUME 101.8 fl (80.0-105.0); MEAN CORPUSCULAR HEMOGLOBIN 33.9 pg (25.0-35.0); MEAN CORPUSCULAR HGB CONC 33.3 g/dl (31.0-37.0); MEAN PLATELET VOLUME 10.3 fl (7.0-11.0); MONO # 1.3 (0.1-0.6); MONO % 22.2 % (1.0-6.0); PLATELET COUNT 95 10^3/uL (120.0-450.0); RBC 3.39 10^6/uL (3.5-6.1); RED CELL DISTRIBUTION WIDTH 16.1 % (11.5-14.5); WHITE BLOOD COUNT 5.7 10^3/ul (4.5-11.0)
[2018-03-25 07:01] LABS: ALB/GLOB RATIO 0.6 (1.1-1.8); CALCIUM 8.9 mg/dL (8.4-10.5)
[2018-03-25 07:36] LABS: INR 1.3 (0.93-1.08); PARTIAL THROMBOPLASTIN TIME 26.8 Seconds (25.1-36.5)
[2018-03-25 08:18] LABS: EOSINOPHIL 3 % (0.0-3.0); LYMPHOCYTE 27 % (22.0-35.0); MONOCYTE 5 % (1.0-6.0); MYELOCYTE 1 %; NEUTROPHIL 64 % (50.0-70.0); PLATELET ESTIMATE LOW (NORMAL)
[2018-03-25] MEDS: Cholecalciferol 1,000 INTLU TAB PO SCH (09:11)
[2018-03-25] MEDS: levoFLOXacin 500 MG TAB PO SCH (11:29)
--- NOTE | 2018-03-25 12:27 | CP.PCM.PN ---
<Ayo Siddiqui - Last Filed: 03/25/18 12:24> Subjective - Date & Time of Evaluation Date of Evaluation: 03/25/18 Time of Evaluation: 12:24 - Subjective Subjective: Medicine Progress Note Pt seen and examined at bedside. No acute overnight events. Pt states that he doesn't know if he could be discharged because there is no one to help him navigate stairs at home. Pt denied CP, SOB, n/v/d, abdominal pain, fever, chills , SALDIVAR, or dizziness. Objective - Vital Signs/Intake and Output Vital Signs (last 24 hours): Temp Pulse Resp BP Pulse Ox 98 F 70 18 112/59 L 97 03/25/18 08:39 03/25/18 09:11 03/25/18 08:39 03/25/18 09:11 03/25/18 08:39 Intake and Output: 03/25/18 03/25/18 06:59 18:59 Intake Total 420 240 Output Total 500 200 Balance -80 40 - Medications Medications: Current Medications Alprazolam (Xanax) 0.5 mg PO [facility] PRN Reason: Protocol Stop: 03/31/18 22:01 Last Admin: 03/24/18 21:04 Dose: 0.5 mg Ascorbic Acid (Vitamin C 500 Mg Tab) 1,000 mg PO BID [facility] Last Admin: 03/25/18 09:10 Dose: 1,000 mg Cholecalciferol (Vitamin D) 2,000 intlu PO DAILY [facility] Last Admin: 03/25/18 09:11 Dose: 2,000 intlu Cyanocobalamin (Vitamin B12 1000 Mcg Tab) 1,000 mcg PO DAILY [facility] Last Admin: 03/25/18 09:11 Dose: 1,000 mcg Famotidine (Pepcid) 20 mg PO [facility] Last Admin: 03/24/18 21:04 Dose: 20 mg Lactulose (Enulose) 20 gm PO DAILY [facility] Last Admin: 03/25/18 09:10 Dose: 20 gm Levofloxacin (Levaquin) 500 mg PO DAILY [facility] PRN Reason: Protocol Last Admin: 03/25/18 11:29 Dose: 500 mg Midodrine (Proamatine) 10 mg PO TID [facility] Last Admin: 03/25/18 09:17 Dose: 10 mg Morphine Sulfate (Morphine) 1 mg IVP Q4H PRN PRN Reason: Pain, severe (8-10) Last Admin: 03/25/18 08:49 Dose: 1 mg Nadolol (Corgard) 10 mg PO DAILY [facility] Last Admin: 03/25/18 09:11 Dose: 10 mg Ondansetron HCl (Zofran Inj) 4 mg IVP Q4 PRN PRN Reason: Nausea/Vomiting Pantoprazole Sodium (Protonix Ec Tab) 40 mg PO 0600 [facility] Last Admin: 03/25/18 05:20 Dose: 40 mg Rifaximin (Xifaxan) 550 mg PO BID [facility] PRN Reason: Protocol Last Admin: 03/25/18 09:10 Dose: 550 mg Zinc Sulfate (Zinc Sulfate 220 Mg Cap) 220 mg PO BID [facility] Last Admin: 03/25/18 09:13 Dose: 220 mg - Labs Labs: 03/25/18 05:30 03/25/18 05:30 PT 15.0 SECONDS (9.4-12.5) H 03/25/18 05:30 INR 1.30 (0.93-1.08) H 03/25/18 05:30 APTT 26.8 Seconds (25.1-36.5) 03/25/18 05:30 - Constitutional Appears: No Acute Distress, Chronically Ill - Head Exam Head Exam: NORMAL INSPECTION - Eye Exam Eye Exam: Normal appearance - ENT Exam ENT Exam: Normal Exam - Neck Exam Neck Exam: Normal Inspection - Respiratory Exam Respiratory Exam: Clear to Ausculation Bilateral. absent: Rales, Rhonchi, Wheezes - Cardiovascular Exam Cardiovascular Exam: RRR, +S1, +S2. absent: Gallop, Rubs, Murmur - GI/Abdominal Exam GI & Abdominal Exam: Distended, Soft. absent: Guarding, Tenderness, Rebound - Extremities Exam Extremities Exam: Normal Inspection - Back Exam Back Exam: NORMAL INSPECTION - Neurological Exam Neurological Exam: Alert, Awake, CN II-XII Intact, Oriented x3 - Psychiatric Exam Psychiatric exam: Normal Affect, Normal Mood - Skin Skin Exam: Dry, Intact, Normal Color, Warm Assessment and Plan - Assessment and Plan (Free Text) Assessment: 63 year old male with a complicated past medical history pertinent for CKD stage 3B, non-alcoholic liver cirrhosis of unclear etiology, hepatic encephalopathy and chronic ascites admitted for mechanical fall. Plan: 1. Mechanical Fall - Normotensive - Ammonia WNL, patient is AOx3 - Head CT and Orbital CT negative - Fall precautions - PT eval and treat 2. Prerenal Azotemia on CKD Stage 3B - Renal function improved today 3. Possible Pneumonia - CXR showed new right lower lobe infiltrate/right pleural effusion - Urine Strep Pneumonia, Legionella, Procalcitonin - Levaquin PO 500 day 2 of 5 4. Non-Alcoholic Liver Cirrhosis with Ascites and Esophageal Varices - Continue Lactulose, Rifaximin, Lasix, Zofran - Nadolol for esophageal varices with Midodrine to maintain blood pressure - Low sodium/fluid restricted (1500) heart healthy diet with supplemental Ensure Enlive 5. Chronic Back Pain - Continue IVP Morphine - CT of thoracic and lumbar spine Multiple chronic, mild compression deformities in the mid and lower thoracic spine Multilevel degenerative changes Severe central stenosis of L3-4, foraminal stenosis at L4-5, L5-S1 6. History of Anxiety - Continue home Xanax and Atarax GI/DVT Prophylaxis - Pepcid/SCD Pt seen and discussed in detail with Dr. Rosales. Oliver Siddiqui, PGY1 <Felicita Rosales - Last Filed: 03/25/18 14:30> Objective - Vital Signs/Intake and Output Vital Signs (last 24 hours): Temp Pulse Resp BP Pulse Ox 98 F 70 18 112/59 L 97 03/25/18 08:39 03/25/18 09:11 03/25/18 08:39 03/25/18 09:11 03/25/18 08:39 Intake and Output: 03/25/18 03/25/18 06:59 18:59 Intake Total 420 240 Output Total 500 200 Balance -80 40 - Medications Medications: Current Medications Alprazolam (Xanax) 0.5 mg PO [facility] PRN Reason: Protocol Stop: 03/31/18 22:01 Last Admin: 03/24/18 21:04 Dose: 0.5 mg Ascorbic Acid (Vitamin C 500 Mg Tab) 1,000 mg PO BID [facility] Last Admin: 03/25/18 09:10 Dose: 1,000 mg Cholecalciferol (Vitamin D) 2,000 intlu PO DAILY [facility] Last Admin: 03/25/18 09:11 Dose: 2,000 intlu Cyanocobalamin (Vitamin B12 1000 Mcg Tab) 1,000 mcg PO DAILY [facility] Last Admin: 03/25/18 09:11 Dose: 1,000 mcg Famotidine (Pepcid) 20 mg PO HS [facility] Last Admin: 03/24/18 21:04 Dose: 20 mg Lactulose (Enulose) 20 gm PO DAILY [facility] Last Admin: 03/25/18 09:10 Dose: 20 gm Levofloxacin (Levaquin) 500 mg PO DAILY [facility] PRN Reason: Protocol Last Admin: 03/25/18 11:29 Dose: 500 mg Midodrine (Proamatine) 10 mg PO TID [facility] Last Admin: 03/25/18 09:17 Dose: 10 mg Morphine Sulfate (Morphine) 1 mg IVP Q4H PRN PRN Reason: Pain, severe (8-10) Last Admin: 03/25/18 08:49 Dose: 1 mg Nadolol (Corgard) 10 mg PO DAILY [facility] Last Admin: 03/25/18 09:11 Dose: 10 mg Ondansetron HCl (Zofran Inj) 4 mg IVP Q4 PRN PRN Reason: Nausea/Vomiting Pantoprazole Sodium (Protonix Ec Tab) 40 mg PO 0600 [facility] Last Admin: 03/25/18 05:20 Dose: 40 mg Rifaximin (Xifaxan) 550 mg PO BID [facility] PRN Reason: Protocol Last Admin: 03/25/18 09:10 Dose: 550 mg Zinc Sulfate (Zinc Sulfate 220 Mg Cap) 220 mg PO BID [facility] Last Admin: 03/25/18 09:13 Dose: 220 mg - Labs Labs: 03/25/18 05:30 03/25/18 05:30 PT 15.0 SECONDS (9.4-12.5) H 03/25/18 05:30 INR 1.30 (0.93-1.08) H 03/25/18 05:30 APTT 26.8 Seconds (25.1-36.5) 03/25/18 05:30 Attending/Attestation - Attestation I have personally seen and examined this patient.: Yes I have fully participated in the care of the patient.: Yes I have reviewed all pertinent clinical information, including history, physical exam and plan: Yes Notes (Text): 03/25/18 14:15 Attending note; he shouldn't seen and examined with resident. Patient is a 62 -year-old male with PMH of CAD s/p stent, Afib s/p cardioconversion, anemia, GI bleed ,esophageal varices banding ,acute on chronic kidney disease and Non-alcoholic liver cirrhosis is admitted with mechanical fall. According to the patient he tripped and fell over a blanket. Denies any syncope. Denies any chest pain. Denies any palpitation. Currently EKG with normal sinus rhythm. Troponin is negative. Head CT is negative. Maxillofacial CT is negative. chest x-ray showed right lower lobe infiltrate; patient is afebrile and nontoxic. WBC count is normal. Got cefepime. currently on levofloxacin. mild ascites; status post large volume paracentesis last week. Acute on chronic kidney disease; Lasix and Aldactone on hold. creatinine improved to 1.5. Continue midodrine. Cirrhosis ; continue nadolol, lactulose and rifaximin. Patient follows up with [facility]. physical therapy evaluation appreciated. Patient is complaining of mild dizziness on ambulation. Blood pressure is acceptable. Chronic back pain: Multiple chronic, mild compression deformities in the mid and lower thoracic spine. Multilevel degenerative changes. Severe central stenosis of L3-4, foraminal stenosis at L4-5, L5-S1. we will continue PT. Case discussed with patient's cousin Antione landa [phone]. We will contact hepatology team in [facility]. family is requesting transfer to [facility]. case discussed with patient's partner Nuno in detail by the bedside. Upon discharge the patient will follow-up with PMD Dr. Bishop. 03/25/18 14:29
[2018-03-25] MEDS ORDERED: Vancomycin 1gm in NS 250ml 1 GM/250 ML BAG IVPB STA (13:38)
[2018-03-25] MEDS ORDERED: Albuterol-Ipratrop 3 mg / 0.5 (3 ml) UD IH PRN (18:40)
--- NOTE | 2018-03-25 19:40 | CP.PCM.CON ---
History of Present Illness - History of Present Illness History of Present Illness: Infectious Disease Consultation: March 25, 2018 63 yo male with multiple hospitalizations and a complicated medical history [place] [facility]. The patient does not give a consistent story when speaking to him or even comparing to the notes from the primary team. He describes generalized facial pain. His medical history includes HTN, diastolic CHF, Atrial Fibrillation s/p cardioversion, CKD stage 3B, non-alcoholic liver cirrhosis of unclear etiology (TRUJILLO), hepatic encephalopathy, chronic ascites, esophageal varices s/p banding, and GERD. There was a question of a RLL pneumonia based on new RLL infiltrate finding on chest X-ray. PMHx: HTN, diastolic CHF, Atrial Fibrillation s/p cardioversion, CKD stage 3B, non- alcoholic liver cirrhosis of unclear etiology (TRUJILLO), hepatic encephalopathy, chronic ascites, esophageal varices s/p banding, and GERD PSHx: Inguinal hernia repair. Social Hx: Patient denies EtOH or illicit drug use Former smoker stopped about 1.5 years ago. Allergies: Beef containing products, beef derived (bovine), banana, Velcro?!? Active Medications Albuterol/Ipratropium (Duoneb 3 Mg/0.5 Mg (3 Ml) Ud) 3 ml IH [id number] [facility]IB[place] Albuterol/Ipratropium (Duoneb 3 Mg/0.5 Mg (3 Ml) Ud) 3 ml IH Q2H PRN PRN Reason: Shortness of Breath Alprazolam (Xanax) 0.5 mg PO [facility] PRN Reason: Protocol Stop: 03/31/18 22:01 Last Admin: 03/24/18 21:04 Dose: 0.5 mg Ascorbic Acid (Vitamin C 500 Mg Tab) 1,000 mg PO BID [facility] Last Admin: 03/25/18 18:49 Dose: 1,000 mg Cholecalciferol (Vitamin D) 2,000 intlu PO DAILY [facility] Last Admin: 03/25/18 09:11 Dose: 2,000 intlu Cyanocobalamin (Vitamin B12 1000 Mcg Tab) 1,000 mcg PO DAILY [facility] Last Admin: 03/25/18 09:11 Dose: 1,000 mcg Famotidine (Pepcid) 20 mg PO HS [facility] Last Admin: 03/24/18 21:04 Dose: 20 mg Lactulose (Enulose) 20 gm PO DAILY [facility] Last Admin: 03/25/18 09:10 Dose: 20 gm Levofloxacin (Levaquin) 500 mg PO DAILY [facility] PRN Reason: Protocol Last Admin: 03/25/18 11:29 Dose: 500 mg Midodrine (Proamatine) 10 mg PO TID [facility] Last Admin: 03/25/18 18:49 Dose: 10 mg Morphine Sulfate (Morphine) 1 mg IVP Q4H PRN PRN Reason: Pain, severe (8-10) Last Admin: 03/25/18 08:49 Dose: 1 mg Nadolol (Corgard) 10 mg PO DAILY [facility] Last Admin: 03/25/18 09:11 Dose: 10 mg Ondansetron HCl (Zofran Inj) 4 mg IVP Q4 PRN PRN Reason: Nausea/Vomiting Pantoprazole Sodium (Protonix Ec Tab) 40 mg PO 0600 [facility] Last Admin: 03/25/18 05:20 Dose: 40 mg Rifaximin (Xifaxan) 550 mg PO BID [facility] PRN Reason: Protocol Last Admin: 03/25/18 18:48 Dose: 550 mg Zinc Sulfate (Zinc Sulfate 220 Mg Cap) 220 mg PO BID [facility] Last Admin: 03/25/18 18:49 Dose: 220 mg Family Hx: Mother - HTN, DM Father - MD ROS: generalized pain, facial pain No fevers, chills, nausea, vomiting, diarrhea, headaches, dizziness, chest pain , abdominal pain, melena, hematuria, hematemesis, hematochezia, depression, anxiety. Past Patient History - Infectious Disease Hx of Infectious Diseases: None - Tetanus Immunizations Tetanus Immunization: Unknown - Past Medical History & Family History Past Medical History?: Yes - Past Social History Smoking Status: Former Smoker - CARDIAC Hx Cardiac Disorders: Yes Hx Congestive Heart Failure: Yes Hx Hypertension: Yes - PULMONARY Hx Pneumonia: Yes - NEUROLOGICAL Hx Neurological Disorder: No - HEENT Hx HEENT Problems: No - RENAL Hx Renal Failure: Yes - ENDOCRINE/METABOLIC Hx Endocrine Disorders: No - HEMATOLOGICAL/ONCOLOGICAL Hx Blood Disorders: Yes Hx Cirrhosis: Yes (non-alcoholic) - INTEGUMENTARY Hx Dermatological Problems: No - MUSCULOSKELETAL/RHEUMATOLOGICAL Hx Back Pain: Yes Hx Falls: Yes - GASTROINTESTINAL Hx Gastrointestinal Disorders: Yes Hx Liver Failure: Yes - GENITOURINARY/GYNECOLOGICAL Hx Genitourinary Disorders: No - PSYCHIATRIC Hx Anxiety: Yes Hx Depression: Yes Hx Substance Use: No - SURGICAL HISTORY Hx Surgeries: Yes Hx Cardiac Catheterization: Yes Hx Coronary Stent: Yes - ANESTHESIA Hx Anesthesia: Yes Hx Anesthesia Reactions: No Hx Malignant Hyperthermia: No Meds Allergies/Adverse Reactions: Allergies Allergy/AdvReac Type Severity Reaction Status Date / Time Beef Containing Products Allergy Severe ANAPHYLAXIS Verified 03/24/18 02:37 beef derived (bovine) Allergy Severe ANAPHYLAXIS Verified 03/24/18 02:37 banana Allergy Intermediate ITCHING Verified 03/24/18 02:37 velcro Allergy ITCHING Uncoded 03/24/18 02:37 - Medications Medications: Current Medications Albuterol/Ipratropium (Duoneb 3 Mg/0.5 Mg (3 Ml) Ud) 3 ml IH [id number] [facility] Albuterol/Ipratropium (Duoneb 3 Mg/0.5 Mg (3 Ml) Ud) 3 ml IH Q2H PRN PRN Reason: Shortness of Breath Alprazolam (Xanax) 0.5 mg PO [facility] PRN Reason: Protocol Stop: 03/31/18 22:01 Last Admin: 03/24/18 21:04 Dose: 0.5 mg Ascorbic Acid (Vitamin C 500 Mg Tab) 1,000 mg PO BID [facility] Last Admin: 03/25/18 18:49 Dose: 1,000 mg Cholecalciferol (Vitamin D) 2,000 intlu PO DAILY [facility] Last Admin: 03/25/18 09:11 Dose: 2,000 intlu Cyanocobalamin (Vitamin B12 1000 Mcg Tab) 1,000 mcg PO DAILY [facility] Last Admin: 03/25/18 09:11 Dose: 1,000 mcg Famotidine (Pepcid) 20 mg PO [facility] Last Admin: 03/24/18 21:04 Dose: 20 mg Lactulose (Enulose) 20 gm PO DAILY [facility] Last Admin: 03/25/18 09:10 Dose: 20 gm Levofloxacin (Levaquin) 500 mg PO DAILY [facility] PRN Reason: Protocol Last Admin: 03/25/18 11:29 Dose: 500 mg Midodrine (Proamatine) 10 mg PO TID [facility] Last Admin: 03/25/18 18:49 Dose: 10 mg Morphine Sulfate (Morphine) 1 mg IVP Q4H PRN PRN Reason: Pain, severe (8-10) Last Admin: 03/25/18 08:49 Dose: 1 mg Nadolol (Corgard) 10 mg PO DAILY [facility] Last Admin: 03/25/18 09:11 Dose: 10 mg Ondansetron HCl (Zofran Inj) 4 mg IVP Q4 PRN PRN Reason: Nausea/Vomiting Pantoprazole Sodium (Protonix Ec Tab) 40 mg PO 0600 [facility] Last Admin: 03/25/18 05:20 Dose: 40 mg Rifaximin (Xifaxan) 550 mg PO BID [facility] PRN Reason: Protocol Last Admin: 03/25/18 18:48 Dose: 550 mg Zinc Sulfate (Zinc Sulfate 220 Mg Cap) 220 mg PO BID [facility] Last Admin: 03/25/18 18:49 Dose: 220 mg Physical Exam - Constitutional Appears: Chronically Ill Additional comments: Generalized Pain, Jaundiced. - Head Exam Head Exam: ATRAUMATIC, NORMOCEPHALIC - Eye Exam Eye Exam: EOMI, PERRL Pupil Exam: NORMAL ACCOMODATION, PERRL - ENT Exam ENT Exam: Mucous Membranes Moist, Normal External Ear Exam, TM's Normal Bilaterally - Neck Exam Neck exam: Positive for: Normal Inspection - Respiratory Exam Respiratory Exam: Clear to Auscultation Bilateral, NORMAL BREATHING PATTERN. absent: Rales, Rhonchi, Wheezes - Cardiovascular Exam Cardiovascular Exam: REGULAR RHYTHM, RRR, +S1, +S2 - GI/Abdominal Exam GI & Abdominal Exam: Normal Bowel Sounds, Soft. absent: Distended, Tenderness - Extremities Exam Extremities exam: Positive for: full ROM, normal inspection - Neurological Exam Neurological exam: Alert, CN II-XII Intact, Oriented x3 - Psychiatric Exam Psychiatric exam: Normal Affect, Normal Mood - Skin Skin Exam: Intact, Normal Color, Warm Results - Vital Signs Recent Vital Signs: Last Vital Signs Temp 98 F 03/25/18 08:39 Pulse 70 03/25/18 09:11 Resp 18 03/25/18 08:39 BP 112/59 L 03/25/18 09:11 Pulse Ox 97 03/25/18 08:39 - Labs Result Diagrams: 03/25/18 05:30 03/25/18 05:30 Assessment & Plan - Assessment and Plan (Free Text) Assessment: 63 yo male with extensive and complicated medical history that includes HTN, diastolic CHF, Atrial Fibrillation s/p cardioversion, CKD stage 3B, non- alcoholic liver cirrhosis of unclear etiology (TRUJILLO), hepatic encephalopathy, chronic ascites, esophageal varices s/p banding, and GERD. Findings of a RLL infiltrate on Chest X-ray but no clear clinical findings. Started on Levaquin for antibiotic care. Patient had received Cefepime in the ER. Would give no more than 5 days of Levaquin for care. Monitor patient. Thank you for allowing me to participate in the care of the patient, we will follow with you. Case discussed with Dr. Rosales.
[2018-03-25] MEDS: Albuterol-Ipratrop 3 mg / 0.5 (3 ml) UD IH SCH (19:51)
[2018-03-26] MEDS: Albuterol-Ipratrop 3 mg / 0.5 (3 ml) UD IH SCH ×4 (01:44→20:02)
[2018-03-26] MEDS: Morphine 4 mg/ml ISec IVP PRN ×3 (02:45→22:17)
[2018-03-26] MEDS: Pantoprazole 40 mg EC Tab PO SCH (05:14)
[2018-03-26 07:18] LABS: BASO # 0.04 K/mm3 (0.0-2.0); BASO % 0.7 % (0.0-3.0); EOS # 0.2 (0.0-0.7); EOS % 3.7 % (1.5-5.0); GRAN # 2.77 (1.4-6.5); GRAN % 51.3 % (50.0-68.0); HEMOGLOBIN 10.4 g/dL (14.0-18.0); LYMPH # 1.4 (1.2-3.4); LYMPH % 25.2 % (22.0-35.0); MEAN CELL VOLUME 101.3 fl (80.0-105.0); MEAN CORPUSCULAR HEMOGLOBIN 33.5 pg (25.0-35.0); MEAN CORPUSCULAR HGB CONC 33.1 g/dl (31.0-37.0); MEAN PLATELET VOLUME 9.9 fl (7.0-11.0); MONO % 19.1 % (1.0-6.0); RBC 3.1 10^6/uL (3.5-6.1); RED CELL DISTRIBUTION WIDTH 16.3 % (11.5-14.5); WHITE BLOOD COUNT 5.4 10^3/ul (4.5-11.0)
[2018-03-26 07:25] LABS: INR 1.31 (0.93-1.08); PARTIAL THROMBOPLASTIN TIME 37.9 Seconds (25.1-36.5); PROTHROMBIN TIME 15.1 SECONDS (9.4-12.5)
[2018-03-26 07:28] LABS: TROPONIN I < 0.01 ng/mL
[2018-03-26 07:57] LABS: ALB/GLOB RATIO 0.6 (1.1-1.8); ALBUMIN 2.8 g/dL (3.0-4.8); ALT/SGPT 29 U/L (7-56); AST/SGOT 57 U/L (17-59); BLOOD UREA NITROGEN 33 mg/dL (7-21); CALCIUM 8.9 mg/dL (8.4-10.5); GFR AFRICAN-AMERICAN > 60; GFR NON-AFRICAN AMERICAN 51
[2018-03-26] MEDS: levoFLOXacin 500 MG TAB PO SCH (10:22)
[2018-03-26] MEDS: Cholecalciferol 1,000 INTLU TAB PO SCH (10:24)
[2018-03-26] MEDS: Furosemide 40 mg/5 mL Oral Soln UD PO SCH (11:59)
--- NOTE | 2018-03-26 12:02 | CP.PCM.PN ---
<Ayo Siddiqui - Last Filed: 03/26/18 11:57> Subjective - Date & Time of Evaluation Date of Evaluation: 03/26/18 Time of Evaluation: 11:57 - Subjective Subjective: Medicine Progress Note Pt seen and examined at bedside. No acute overnight events. Patient is awaiting possible transfer to [facility]. Pt denies CP, SOB, n/v/d, abdominal pain, fever, chills, SALDIVAR, or dizziness. Objective - Vital Signs/Intake and Output Vital Signs (last 24 hours): Temp Pulse Resp BP Pulse Ox 98 F 71 18 134/79 97 03/26/18 08:30 03/26/18 08:30 03/26/18 08:30 03/26/18 11:38 03/26/18 08:30 Intake and Output: 03/26/18 03/26/18 06:59 18:59 Output Total 350 Balance -350 - Medications Medications: Current Medications Albuterol/Ipratropium (Duoneb 3 Mg/0.5 Mg (3 Ml) Ud) 3 ml IH [id number] [facility] Last Admin: 03/26/18 07:33 Dose: 3 ml Albuterol/Ipratropium (Duoneb 3 Mg/0.5 Mg (3 Ml) Ud) 3 ml IH Q2H PRN PRN Reason: Shortness of Breath Alprazolam (Xanax) 0.5 mg PO HS [facility] PRN Reason: Protocol Stop: 03/31/18 22:01 Last Admin: 03/25/18 21:24 Dose: 0.5 mg Ascorbic Acid (Vitamin C 500 Mg Tab) 1,000 mg PO BID [facility] Last Admin: 03/26/18 10:23 Dose: 1,000 mg Cholecalciferol (Vitamin D) 2,000 intlu PO DAILY [facility] Last Admin: 03/26/18 10:24 Dose: 2,000 intlu Cyanocobalamin (Vitamin B12 1000 Mcg Tab) 1,000 mcg PO DAILY [facility] Last Admin: 03/26/18 10:24 Dose: 1,000 mcg Famotidine (Pepcid) 20 mg PO HS [facility] Last Admin: 03/25/18 21:24 Dose: 20 mg Furosemide (Lasix) 20 mg PO DAILY [facility] Lactulose (Enulose) 20 gm PO DAILY [facility] Last Admin: 03/26/18 10:22 Dose: 20 gm Levofloxacin (Levaquin) 500 mg PO DAILY [facility] PRN Reason: Protocol Stop: 03/29/18 10:00 Last Admin: 03/26/18 10:22 Dose: 500 mg Midodrine (Proamatine) 10 mg PO TID [facility] Last Admin: 03/26/18 10:23 Dose: 10 mg Morphine Sulfate (Morphine) 1 mg IVP Q4H PRN PRN Reason: Pain, severe (8-10) Last Admin: 03/26/18 09:25 Dose: 1 mg Nadolol (Corgard) 10 mg PO DAILY [facility] Last Admin: 03/26/18 10:23 Dose: Not Given Ondansetron HCl (Zofran Inj) 4 mg IVP Q4 PRN PRN Reason: Nausea/Vomiting Pantoprazole Sodium (Protonix Ec Tab) 40 mg PO 0600 [facility] Last Admin: 03/26/18 05:14 Dose: 40 mg Rifaximin (Xifaxan) 550 mg PO BID [facility] PRN Reason: Protocol Last Admin: 03/26/18 10:23 Dose: 550 mg Zinc Sulfate (Zinc Sulfate 220 Mg Cap) 220 mg PO BID [facility] Last Admin: 03/26/18 10:23 Dose: 220 mg - Labs Labs: 03/26/18 06:30 03/26/18 06:30 PT 15.1 SECONDS (9.4-12.5) H 03/26/18 06:30 INR 1.31 (0.93-1.08) H 03/26/18 06:30 APTT 37.9 Seconds (25.1-36.5) H 03/26/18 06:30 - Constitutional Appears: No Acute Distress - Head Exam Head Exam: NORMAL INSPECTION - Eye Exam Eye Exam: Normal appearance - ENT Exam ENT Exam: Normal Exam - Neck Exam Neck Exam: Normal Inspection - Respiratory Exam Respiratory Exam: Clear to Ausculation Bilateral. absent: Rales, Rhonchi, Wheezes - Cardiovascular Exam Cardiovascular Exam: RRR, +S1, +S2. absent: Gallop, Rubs, Murmur - GI/Abdominal Exam GI & Abdominal Exam: Distended, Soft. absent: Guarding, Tenderness, Rebound - Extremities Exam Extremities Exam: Normal Inspection - Back Exam Back Exam: NORMAL INSPECTION - Neurological Exam Neurological Exam: Alert, Awake, CN II-XII Intact, Oriented x3 - Psychiatric Exam Psychiatric exam: Normal Affect, Normal Mood - Skin Skin Exam: Dry, Intact, Normal Color, Warm Assessment and Plan - Assessment and Plan (Free Text) Assessment: 63 year old male with a complicated past medical history pertinent for CKD stage 3B, non-alcoholic liver cirrhosis of unclear etiology, hepatic encephalopathy and chronic ascites admitted for mechanical fall. Plan: 1. Mechanical Fall - Normotensive - Ammonia WNL, patient is AOx3 - Head CT and Orbital CT negative - Fall precautions - PT eval and treat 2. Prerenal Azotemia on CKD Stage 3B, resolved - Cont to monitor 3. Possible Pneumonia - CXR showed new right lower lobe infiltrate/right pleural effusion - Urine Strep Pneumonia, Legionella, Procalcitonin - Levaquin PO 500 day 3 of 5 4. Non-Alcoholic Liver Cirrhosis with Ascites and Esophageal Varices - Lasix restarted - Aldactone held - Continue Lactulose, Rifaximin, Zofran - Nadolol for esophageal varices with Midodrine to maintain blood pressure - Low sodium/fluid restricted (1500) heart healthy diet with supplemental Ensure Enlive 5. Chronic Back Pain - Continue IVP Morphine - CT of thoracic and lumbar spine Multiple chronic, mild compression deformities in the mid and lower thoracic spine Multilevel degenerative changes Severe central stenosis of L3-4, foraminal stenosis at L4-5, L5-S1 6. History of Anxiety - Continue home Xanax GI/DVT Prophylaxis - Pepcid/SCD Dispo: Awaiting possible transfer to [facility]. Pt seen and discussed in detail with Dr. Rosales. Oliver Siddiqui, PGY1 <Felicita Rosales - Last Filed: 03/26/18 12:30> Objective - Vital Signs/Intake and Output Vital Signs (last 24 hours): Temp Pulse Resp BP Pulse Ox 98 F 71 18 134/79 97 03/26/18 08:30 03/26/18 08:30 03/26/18 08:30 03/26/18 11:59 03/26/18 08:30 Intake and Output: 03/26/18 03/26/18 06:59 18:59 Output Total 350 Balance -350 - Medications Medications: Current Medications Albuterol/Ipratropium (Duoneb 3 Mg/0.5 Mg (3 Ml) Ud) 3 ml IH [id number] [facility] Last Admin: 03/26/18 07:33 Dose: 3 ml Albuterol/Ipratropium (Duoneb 3 Mg/0.5 Mg (3 Ml) Ud) 3 ml IH Q2H PRN PRN Reason: Shortness of Breath Alprazolam (Xanax) 0.5 mg PO [facility] PRN Reason: Protocol Stop: 03/31/18 22:01 Last Admin: 03/25/18 21:24 Dose: 0.5 mg Ascorbic Acid (Vitamin C 500 Mg Tab) 1,000 mg PO BID [facility] Last Admin: 03/26/18 10:23 Dose: 1,000 mg Cholecalciferol (Vitamin D) 2,000 intlu PO DAILY [facility] Last Admin: 03/26/18 10:24 Dose: 2,000 intlu Cyanocobalamin (Vitamin B12 1000 Mcg Tab) 1,000 mcg PO DAILY [facility] Last Admin: 03/26/18 10:24 Dose: 1,000 mcg Famotidine (Pepcid) 20 mg PO HS [facility] Last Admin: 03/25/18 21:24 Dose: 20 mg Furosemide (Lasix) 20 mg PO DAILY [facility] Last Admin: 03/26/18 11:59 Dose: 20 mg Lactulose (Enulose) 20 gm PO DAILY [facility] Last Admin: 03/26/18 10:22 Dose: 20 gm Levofloxacin (Levaquin) 500 mg PO DAILY [facility] PRN Reason: Protocol Stop: 03/28/18 10:00 Last Admin: 03/26/18 10:22 Dose: 500 mg Midodrine (Proamatine) 10 mg PO TID [facility] Last Admin: 03/26/18 10:23 Dose: 10 mg Morphine Sulfate (Morphine) 1 mg IVP Q4H PRN PRN Reason: Pain, severe (8-10) Last Admin: 03/26/18 09:25 Dose: 1 mg Nadolol (Corgard) 10 mg PO DAILY [facility] Last Admin: 03/26/18 10:23 Dose: Not Given Ondansetron HCl (Zofran Inj) 4 mg IVP Q4 PRN PRN Reason: Nausea/Vomiting Pantoprazole Sodium (Protonix Ec Tab) 40 mg PO 0600 [facility] Last Admin: 03/26/18 05:14 Dose: 40 mg Rifaximin (Xifaxan) 550 mg PO BID [facility] PRN Reason: Protocol Last Admin: 03/26/18 10:23 Dose: 550 mg Zinc Sulfate (Zinc Sulfate 220 Mg Cap) 220 mg PO BID [facility] Last Admin: 03/26/18 10:23 Dose: 220 mg - Labs Labs: 03/26/18 06:30 03/26/18 06:30 PT 15.1 SECONDS (9.4-12.5) H 03/26/18 06:30 INR 1.31 (0.93-1.08) H 03/26/18 06:30 APTT 37.9 Seconds (25.1-36.5) H 03/26/18 06:30 Attending/Attestation - Attestation I have personally seen and examined this patient.: Yes I have fully participated in the care of the patient.: Yes I have reviewed all pertinent clinical information, including history, physical exam and plan: Yes Notes (Text): 03/26/18 12:26 Attending note; Patient is a 62 -year-old male with PMH of CAD s/p stent, Afib s/p cardioconversion, anemia, GI bleed ,esophageal varices banding ,acute on chronic kidney disease and Non-alcoholic liver cirrhosis is admitted with mechanical fall. According to the patient he tripped and fell over a blanket. Denies any syncope. Denies any chest pain. Denies any palpitation. Currently EKG with normal sinus rhythm. Troponin is negative. Head CT is negative. Maxillofacial CT is negative. chest x-ray showed right lower lobe infiltrate; patient is afebrile and nontoxic. WBC count is normal. Got cefepime. currently on levofloxacin. ID evaluation appreciated. mild ascites; status post large volume paracentesis last week. Acute on chronic kidney disease; started back on lasix. creatinine improved to 1.4. Continue midodrine. Cirrhosis ; continue nadolol, lactulose and rifaximin. MELD score is 19. case discussed with [facility] transfer team. patient is accepted. awaiting bed. Upon discharge the patient will follow-up with PMD Dr. Bishop.
--- NOTE | 2018-03-26 17:44 | CP.PCM.PN ---
Subjective - Date & Time of Evaluation Date of Evaluation: 03/26/18 Time of Evaluation: 14:30 - Subjective Subjective: Infectious Disease Follow Up: March 26, 2018 63 yo male with multiple hospitalizations and a complicated medical history presenting to [facility] for a fall for this hospitalization. The patient does not give a consistent story when speaking to him or even comparing to the notes from the primary team. He describes generalized facial pain. His medical history includes HTN, diastolic CHF, Atrial Fibrillation s/p cardioversion, CKD stage 3B, non-alcoholic liver cirrhosis of unclear etiology (TRUJILLO), hepatic encephalopathy, chronic ascites, esophageal varices s/p banding, and GERD. There was a question of a RLL pneumonia based on new RLL infiltrate finding on chest X-ray. Currently on Levaquin. He is not exhibiting signs of pneumonia. Objective - Vital Signs/Intake and Output Vital Signs (last 24 hours): Temp Pulse Resp BP Pulse Ox 98 F 71 18 134/79 97 03/26/18 08:30 03/26/18 08:30 03/26/18 08:30 03/26/18 11:59 03/26/18 08:30 Intake and Output: 03/26/18 03/26/18 06:59 18:59 Intake Total 480 Output Total 350 300 Balance -350 180 - Medications Medications: Current Medications Albuterol/Ipratropium (Duoneb 3 Mg/0.5 Mg (3 Ml) Ud) 3 ml IH [id number] [facility] Last Admin: 03/26/18 13:30 Dose: 3 ml Albuterol/Ipratropium (Duoneb 3 Mg/0.5 Mg (3 Ml) Ud) 3 ml IH Q2H PRN PRN Reason: Shortness of Breath Alprazolam (Xanax) 0.5 mg PO HS [facility] PRN Reason: Protocol Stop: 03/31/18 22:01 Last Admin: 03/25/18 21:24 Dose: 0.5 mg Ascorbic Acid (Vitamin C 500 Mg Tab) 1,000 mg PO BID [facility] Last Admin: 03/26/18 17:29 Dose: 1,000 mg Cholecalciferol (Vitamin D) 2,000 intlu PO DAILY [facility] Last Admin: 03/26/18 10:24 Dose: 2,000 intlu Cyanocobalamin (Vitamin B12 1000 Mcg Tab) 1,000 mcg PO DAILY [facility] Last Admin: 03/26/18 10:24 Dose: 1,000 mcg Famotidine (Pepcid) 20 mg PO HS [facility] Last Admin: 03/25/18 21:24 Dose: 20 mg Furosemide (Lasix) 20 mg PO DAILY [facility] Last Admin: 03/26/18 11:59 Dose: 20 mg Lactulose (Enulose) 20 gm PO DAILY [facility] Last Admin: 03/26/18 10:22 Dose: 20 gm Levofloxacin (Levaquin) 500 mg PO DAILY [facility] PRN Reason: Protocol Stop: 03/28/18 10:00 Last Admin: 03/26/18 10:22 Dose: 500 mg Midodrine (Proamatine) 10 mg PO TID [facility] Last Admin: 03/26/18 17:29 Dose: 10 mg Morphine Sulfate (Morphine) 1 mg IVP Q4H PRN PRN Reason: Pain, severe (8-10) Last Admin: 03/26/18 09:25 Dose: 1 mg Nadolol (Corgard) 10 mg PO DAILY [facility] Last Admin: 03/26/18 10:23 Dose: Not Given Ondansetron HCl (Zofran Inj) 4 mg IVP Q4 PRN PRN Reason: Nausea/Vomiting Pantoprazole Sodium (Protonix Ec Tab) 40 mg PO 0600 [facility] Last Admin: 03/26/18 05:14 Dose: 40 mg Rifaximin (Xifaxan) 550 mg PO BID [facility] PRN Reason: Protocol Last Admin: 03/26/18 17:29 Dose: 550 mg Zinc Sulfate (Zinc Sulfate 220 Mg Cap) 220 mg PO BID [facility] Last Admin: 03/26/18 17:29 Dose: 220 mg - Labs Labs: 03/26/18 06:30 03/26/18 06:30 PT 15.1 SECONDS (9.4-12.5) H 03/26/18 06:30 INR 1.31 (0.93-1.08) H 03/26/18 06:30 APTT 37.9 Seconds (25.1-36.5) H 03/26/18 06:30 - Constitutional Appears: Chronically Ill - Head Exam Head Exam: ATRAUMATIC, NORMOCEPHALIC - Eye Exam Eye Exam: EOMI, PERRL Pupil Exam: NORMAL ACCOMODATION, PERRL - ENT Exam ENT Exam: Mucous Membranes Moist, Normal External Ear Exam, TM's Normal Bilaterally - Neck Exam Neck Exam: Normal Inspection - Respiratory Exam Respiratory Exam: Clear to Ausculation Bilateral, NORMAL BREATHING PATTERN. absent: Rales, Rhonchi, Wheezes - Cardiovascular Exam Cardiovascular Exam: REGULAR RHYTHM, RRR, +S1, +S2 - GI/Abdominal Exam GI & Abdominal Exam: Soft, Normal Bowel Sounds. absent: Distended, Tenderness - Extremities Exam Extremities Exam: Full ROM, Normal Inspection - Neurological Exam Neurological Exam: Alert, Awake, CN II-XII Intact, Oriented x3 - Psychiatric Exam Psychiatric exam: Normal Affect, Normal Mood - Skin Skin Exam: Intact, Normal Color, Warm Assessment and Plan - Assessment and Plan (Free Text) Assessment: 63 yo male with extensive and complicated medical history that includes HTN, diastolic CHF, Atrial Fibrillation s/p cardioversion, CKD stage 3B, non- alcoholic liver cirrhosis of unclear etiology (TRUJILLO), hepatic encephalopathy, chronic ascites, esophageal varices s/p banding, and GERD. Findings of a RLL infiltrate on Chest X-ray but no clear clinical findings. Started on Levaquin for antibiotic care. Patient had received Cefepime in the ER. Would give no more than 5 days of Levaquin for care. Monitor patient. Possible transfer to [facility] for liver transplant evaluation?? Thank you for allowing me to participate in the care of the patient, we will follow with you. Case discussed with Dr. Rosales.
--- NOTE | 2018-03-26 20:15 | US ---
PROCEDURE: Bilateral carotid artery duplex ultrasound HISTORY: Carotid stenosis PHYSICIAN(S): Franko Crespo MD. TECHNIQUE: Duplex sonography and color-flow Doppler were used to evaluate the carotid bifurcations and limited segments of the vertebral arteries bilaterally. FINDINGS: There is mild to moderate diffuse smooth heterogeneous plaque noted at the carotid bifurcations bilaterally. The peak systolic velocity in the proximal right internal carotid artery is 105 cm/sec. This corresponds to a 20 to 39% proximal right ICA stenosis. Normal systolic velocities are noted in the proximal right external carotid artery. There is antegrade flow in the small right vertebral artery. The peak systolic velocity in the proximal left internal carotid artery is 91 cm/sec. This corresponds to a 20 to 39% proximal left ICA stenosis. Normal systolic velocities are noted in the proximal left external carotid artery. There is antegrade flow in the dominant left vertebral artery. IMPRESSION: 1. Bilateral 20-39% proximal ICA stenoses. 2. Antegrade flow in both vertebral arteries.
[2018-03-27] MEDS: Albuterol-Ipratrop 3 mg / 0.5 (3 ml) UD IH SCH ×4 (01:32→19:56)
[2018-03-27] MEDS: Morphine 4 mg/ml ISec IVP PRN ×2 (06:19→18:22)
[2018-03-27] MEDS: Pantoprazole 40 mg EC Tab PO SCH (06:20)
[2018-03-27 07:38] LABS: BASO # 0.04 K/mm3 (0.0-2.0); BASO % 0.7 % (0.0-3.0); EOS # 0.2 (0.0-0.7); EOS % 4.3 % (1.5-5.0); GRAN # 2.75 (1.4-6.5); GRAN % 49.8 % (50.0-68.0); HEMOGLOBIN 10.7 g/dL (14.0-18.0); LYMPH # 1.2 (1.2-3.4); LYMPH % 21.6 % (22.0-35.0); MEAN CELL VOLUME 100.6 fl (80.0-105.0); MEAN CORPUSCULAR HEMOGLOBIN 33.6 pg (25.0-35.0); MEAN CORPUSCULAR HGB CONC 33.4 g/dl (31.0-37.0); MEAN PLATELET VOLUME 9.7 fl (7.0-11.0); MONO # 1.3 (0.1-0.6); MONO % 23.6 % (1.0-6.0); RBC 3.18 10^6/uL (3.5-6.1); RED CELL DISTRIBUTION WIDTH 16.2 % (11.5-14.5); WHITE BLOOD COUNT 5.5 10^3/ul (4.5-11.0)
[2018-03-27 07:52] LABS: ALB/GLOB RATIO 0.6 (1.1-1.8); ALBUMIN 2.8 g/dL (3.0-4.8); CALCIUM 8.8 mg/dL (8.4-10.5)
[2018-03-27 07:55] LABS: INR 1.24 (0.93-1.08); PROTHROMBIN TIME 14.3 SECONDS (9.4-12.5)
[2018-03-27 08:14] VITALS: RESP 20; O2SAT 98
[2018-03-27] MEDS: Furosemide 40 mg/5 mL Oral Soln UD PO SCH (09:22)
[2018-03-27] MEDS: levoFLOXacin 500 MG TAB PO SCH (09:22)
[2018-03-27] MEDS: Cholecalciferol 1,000 INTLU TAB PO SCH (13:00)
--- NOTE | 2018-03-27 14:55 | CP.PCM.PN ---
<Alvaro Allen - Last Filed: 03/27/18 14:49> Subjective - Date & Time of Evaluation Date of Evaluation: 03/27/18 Time of Evaluation: 10:49 - Subjective Subjective: PGY [address] Mccloud Patient seen and examined at bedside this morning. No acute events overnight. Patient was receiving a breathing treatment upon entering the room. He is feeling well with the breathing treatment and speaking in full sentences. He is currently waiting for a bed at [facility] where he will be evaluated for a liver transplant. Patient is currently feeling well except that he feels his abdomen is more distended today. He is complaining of abdominal pain that he feels is related to increased fluid in his abdomen. He is not currently nausea and has no other complaints at this time. Denies fevers, chills, nausea, vomiting, diarrhea, constipation, chest pain, shortness of breath, palpitations , headaches, lightheadedness or dizziness. Objective - Vital Signs/Intake and Output Vital Signs (last 24 hours): Temp Pulse Resp BP Pulse Ox 98.4 F 72 20 121/70 98 03/27/18 08:14 03/27/18 09:21 03/27/18 08:14 03/27/18 09:22 03/27/18 08:14 Intake and Output: 03/27/18 03/27/18 06:59 18:59 Output Total 750 Balance -750 - Medications Medications: Current Medications Albuterol/Ipratropium (Duoneb 3 Mg/0.5 Mg (3 Ml) Ud) 3 ml IH [id number] [facility] Last Admin: 03/27/18 13:10 Dose: 3 ml Albuterol/Ipratropium (Duoneb 3 Mg/0.5 Mg (3 Ml) Ud) 3 ml IH Q2H PRN PRN Reason: Shortness of Breath Alprazolam (Xanax) 0.5 mg PO HS [facility] PRN Reason: Protocol Stop: 03/31/18 22:01 Last Admin: 03/26/18 22:16 Dose: 0.5 mg Ascorbic Acid (Vitamin C 500 Mg Tab) 1,000 mg PO BID [facility] Last Admin: 03/27/18 09:23 Dose: 1,000 mg Cholecalciferol (Vitamin D) 2,000 intlu PO DAILY [facility] Last Admin: 03/27/18 13:00 Dose: 2,000 intlu Cyanocobalamin (Vitamin B12 1000 Mcg Tab) 1,000 mcg PO DAILY [facility] Last Admin: 03/27/18 09:23 Dose: 1,000 mcg Famotidine (Pepcid) 20 mg PO HS [facility] Last Admin: 03/26/18 22:16 Dose: 20 mg Furosemide (Lasix) 20 mg PO DAILY [facility] Last Admin: 03/27/18 09:22 Dose: 20 mg Lactulose (Enulose) 20 gm PO DAILY [facility] Last Admin: 03/27/18 09:21 Dose: 20 gm Levofloxacin (Levaquin) 250 mg PO DAILY [facility] PRN Reason: Protocol Stop: 03/28/18 10:00 Midodrine (Proamatine) 10 mg PO TID [facility] Last Admin: 03/27/18 09:22 Dose: 10 mg Morphine Sulfate (Morphine) 1 mg IVP Q4H PRN PRN Reason: Pain, severe (8-10) Last Admin: 03/27/18 06:19 Dose: 1 mg Nadolol (Corgard) 10 mg PO DAILY [facility] Last Admin: 03/27/18 09:21 Dose: 10 mg Ondansetron HCl (Zofran Inj) 4 mg IVP Q4 PRN PRN Reason: Nausea/Vomiting Pantoprazole Sodium (Protonix Ec Tab) 40 mg PO 0600 [facility] Last Admin: 03/27/18 06:20 Dose: 40 mg Rifaximin (Xifaxan) 550 mg PO BID [facility] PRN Reason: Protocol Last Admin: 03/27/18 09:23 Dose: 550 mg Zinc Sulfate (Zinc Sulfate 220 Mg Cap) 220 mg PO BID [facility] Last Admin: 03/27/18 09:23 Dose: 220 mg - Labs Labs: 03/27/18 07:00 03/27/18 07:00 PT 14.3 SECONDS (9.4-12.5) H 03/27/18 07:00 INR 1.24 (0.93-1.08) H 03/27/18 07:00 APTT 37.0 Seconds (25.1-36.5) H 03/27/18 07:00 - Constitutional Appears: Non-toxic, No Acute Distress - Head Exam Head Exam: ATRAUMATIC, NORMOCEPHALIC - Eye Exam Eye Exam: EOMI, Normal appearance - ENT Exam ENT Exam: Mucous Membranes Moist - Neck Exam Neck Exam: absent: Lymphadenopathy - Respiratory Exam Respiratory Exam: Clear to Ausculation Bilateral (currently receiving breathing treatment at time of exam), NORMAL BREATHING PATTERN. absent: Accessory Muscle Use, Rales, Wheezes, Respiratory Distress - Cardiovascular Exam Cardiovascular Exam: REGULAR RHYTHM, +S1, +S2. absent: JVD - GI/Abdominal Exam GI & Abdominal Exam: Distended (+ fluid wave), Soft, Normal Bowel Sounds. absent: Guarding, Rigid, Tenderness - Extremities Exam Extremities Exam: absent: Calf Tenderness, Pedal Edema - Neurological Exam Neurological Exam: Alert, Awake, CN II-XII Intact, Oriented x3 - Psychiatric Exam Psychiatric exam: Normal Affect, Normal Mood - Skin Skin Exam: Dry, Warm Assessment and Plan - Assessment and Plan (Free Text) Assessment: 63 year old male with a complicated past medical history pertinent for CKD stage 3B, non-alcoholic liver cirrhosis of unclear etiology, hepatic encephalopathy and chronic ascites admitted for mechanical fall. Plan: 1. Mechanical Fall - Normotensive - Ammonia WNL, patient is AOx3 - Head CT and Orbital CT negative - Fall precautions - PT eval and treat 2. Prerenal Azotemia on CKD Stage 3B, resolved - Cont to monitor 3. Possible Pneumonia - CXR showed new right lower lobe infiltrate/right pleural effusion - Urine Strep Pneumonia, Legionella (neg), Procalcitonin - Blood cultures negative x 3 days - Levaquin PO 500 day 4 of 5 4. Non-Alcoholic Liver Cirrhosis with Ascites and Esophageal Varices - Lasix restarted - Aldactone held - Continue Lactulose, Rifaximin, Zofran - Nadolol for esophageal varices with Midodrine to maintain blood pressure - Low sodium/fluid restricted (1500) heart healthy diet with supplemental Ensure Enlive 5. Chronic Back Pain - Continue IVP Morphine - CT of thoracic and lumbar spine Multiple chronic, mild compression deformities in the mid and lower thoracic spine Multilevel degenerative changes Severe central stenosis of L3-4, foraminal stenosis at L4-5, L5-S1 6. History of Anxiety - Continue home Xanax GI/DVT Prophylaxis - Pepcid/SCD Dispo: Accepted and has a bed for transfer to [facility]. Awaiting insurance approval. Patient is cleared for transfer upon insurance approval. Case discussed with Dr. Ame Allen PGY1 <Otto Mccloud - Last Filed: 03/27/18 15:35> Objective - Vital Signs/Intake and Output Vital Signs (last 24 hours): Temp Pulse Resp BP Pulse Ox 98.4 F 72 20 121/70 98 03/27/18 08:14 03/27/18 09:21 03/27/18 08:14 03/27/18 09:22 03/27/18 08:14 Intake and Output: 03/27/18 03/27/18 06:59 18:59 Output Total 750 Balance -750 - Medications Medications: Current Medications Albuterol/Ipratropium (Duoneb 3 Mg/0.5 Mg (3 Ml) Ud) 3 ml IH [id number] [facility] Last Admin: 03/27/18 13:10 Dose: 3 ml Albuterol/Ipratropium (Duoneb 3 Mg/0.5 Mg (3 Ml) Ud) 3 ml IH Q2H PRN PRN Reason: Shortness of Breath Alprazolam (Xanax) 0.5 mg PO [facility] PRN Reason: Protocol Stop: 03/31/18 22:01 Last Admin: 03/26/18 22:16 Dose: 0.5 mg Ascorbic Acid (Vitamin C 500 Mg Tab) 1,000 mg PO BID [facility] Last Admin: 03/27/18 09:23 Dose: 1,000 mg Cholecalciferol (Vitamin D) 2,000 intlu PO DAILY [facility] Last Admin: 03/27/18 13:00 Dose: 2,000 intlu Cyanocobalamin (Vitamin B12 1000 Mcg Tab) 1,000 mcg PO DAILY [facility] Last Admin: 03/27/18 09:23 Dose: 1,000 mcg Famotidine (Pepcid) 20 mg PO HS [facility] Last Admin: 03/26/18 22:16 Dose: 20 mg Furosemide (Lasix) 20 mg PO DAILY [facility] Last Admin: 03/27/18 09:22 Dose: 20 mg Lactulose (Enulose) 20 gm PO DAILY [facility] Last Admin: 03/27/18 09:21 Dose: 20 gm Levofloxacin (Levaquin) 250 mg PO DAILY [facility] PRN Reason: Protocol Stop: 03/28/18 10:00 Midodrine (Proamatine) 10 mg PO TID [facility] Last Admin: 03/27/18 14:49 Dose: 10 mg Morphine Sulfate (Morphine) 1 mg IVP Q4H PRN PRN Reason: Pain, severe (8-10) Last Admin: 03/27/18 06:19 Dose: 1 mg Nadolol (Corgard) 10 mg PO DAILY [facility] Last Admin: 03/27/18 09:21 Dose: 10 mg Ondansetron HCl (Zofran Inj) 4 mg IVP Q4 PRN PRN Reason: Nausea/Vomiting Pantoprazole Sodium (Protonix Ec Tab) 40 mg PO 0600 [facility] Last Admin: 03/27/18 06:20 Dose: 40 mg Rifaximin (Xifaxan) 550 mg PO BID [facility] PRN Reason: Protocol Last Admin: 03/27/18 09:23 Dose: 550 mg Zinc Sulfate (Zinc Sulfate 220 Mg Cap) 220 mg PO BID [facility] Last Admin: 03/27/18 09:23 Dose: 220 mg - Labs Labs: 03/27/18 07:00 03/27/18 07:00 PT 14.3 SECONDS (9.4-12.5) H 03/27/18 07:00 INR 1.24 (0.93-1.08) H 03/27/18 07:00 APTT 37.0 Seconds (25.1-36.5) H 03/27/18 07:00 Attending/Attestation - Attestation I have personally seen and examined this patient.: Yes I have fully participated in the care of the patient.: Yes I have reviewed all pertinent clinical information, including history, physical exam and plan: Yes Notes (Text): 03/27/18 15:32 63 year old male with past medical history of CKD, cirrhosis, hepatic encephalopathy who presented s/p mechanical fall. CT head was negative for acute findings. He is going for echocardiogram today. He is on antibiotics for possibly pneumonia on CXR. ID is following. Patient has been accepted for transfer to [facility]; awaiting bed and insurance approval. Otto Mccloud MD Hospitalist.
[2018-03-27 17:18] VITALS: BP 109/66; PULSE 71; TEMP 97.4
--- NOTE | 2018-03-27 18:42 | CP.PCM.PN ---
Subjective - Date & Time of Evaluation Date of Evaluation: 03/27/18 Time of Evaluation: 16:00 - Subjective Subjective: Infectious Disease Follow Up: March 27, 2018 63 yo male with multiple hospitalizations and a complicated medical history presenting to [facility] [place] [facility] for a fall for this hospitalization. The patient does not give a consistent story when speaking to him or even comparing to the notes from the primary team. He describes generalized facial pain. His medical history includes HTN, diastolic CHF, Atrial Fibrillation s/p cardioversion, CKD stage 3B, non-alcoholic liver cirrhosis of unclear etiology (TRUJILLO), hepatic encephalopathy, chronic ascites, esophageal varices s/p banding, and GERD. There was a question of a RLL pneumonia based on new RLL infiltrate finding on chest X-ray. Currently on Levaquin. He is not exhibiting signs of pneumonia. He is awaiting a bed at [place], [place], for liver transplant evaluation. Objective - Vital Signs/Intake and Output Vital Signs (last 24 hours): Temp Pulse Resp BP Pulse Ox 97.4 F L 71 20 109/66 98 03/27/18 17:17 03/27/18 17:17 03/27/18 17:17 03/27/18 17:17 03/27/18 17:17 Intake and Output: 03/27/18 03/27/18 06:59 18:59 Output Total 750 Balance -750 - Medications Medications: Current Medications Albuterol/Ipratropium (Duoneb 3 Mg/0.5 Mg (3 Ml) Ud) 3 ml IH [id number] [facility] Last Admin: 03/27/18 13:10 Dose: 3 ml Albuterol/Ipratropium (Duoneb 3 Mg/0.5 Mg (3 Ml) Ud) 3 ml IH Q2H PRN PRN Reason: Shortness of Breath Alprazolam (Xanax) 0.5 mg PO HS [facility] PRN Reason: Protocol Stop: 03/31/18 22:01 Last Admin: 03/26/18 22:16 Dose: 0.5 mg Ascorbic Acid (Vitamin C 500 Mg Tab) 1,000 mg PO BID [facility] Last Admin: 03/27/18 18:23 Dose: 1,000 mg Cholecalciferol (Vitamin D) 2,000 intlu PO DAILY [facility] Last Admin: 03/27/18 13:00 Dose: 2,000 intlu Cyanocobalamin (Vitamin B12 1000 Mcg Tab) 1,000 mcg PO DAILY [facility] Last Admin: 03/27/18 09:23 Dose: 1,000 mcg Famotidine (Pepcid) 20 mg PO HS [facility] Last Admin: 03/26/18 22:16 Dose: 20 mg Furosemide (Lasix) 20 mg PO DAILY [facility] Last Admin: 03/27/18 09:22 Dose: 20 mg Lactulose (Enulose) 20 gm PO DAILY [facility] Last Admin: 03/27/18 09:21 Dose: 20 gm Levofloxacin (Levaquin) 250 mg PO DAILY [facility] PRN Reason: Protocol Stop: 03/28/18 10:00 Midodrine (Proamatine) 10 mg PO TID [facility] Last Admin: 03/27/18 18:22 Dose: 10 mg Morphine Sulfate (Morphine) 1 mg IVP Q4H PRN PRN Reason: Pain, severe (8-10) Last Admin: 03/27/18 18:22 Dose: 1 mg Nadolol (Corgard) 10 mg PO DAILY [facility] Last Admin: 03/27/18 09:21 Dose: 10 mg Ondansetron HCl (Zofran Inj) 4 mg IVP Q4 PRN PRN Reason: Nausea/Vomiting Pantoprazole Sodium (Protonix Ec Tab) 40 mg PO 0600 [facility] Last Admin: 03/27/18 06:20 Dose: 40 mg Rifaximin (Xifaxan) 550 mg PO BID [facility] PRN Reason: Protocol Last Admin: 03/27/18 18:23 Dose: 550 mg Zinc Sulfate (Zinc Sulfate 220 Mg Cap) 220 mg PO BID [facility] Last Admin: 03/27/18 18:23 Dose: 220 mg - Labs Labs: 03/27/18 07:00 03/27/18 07:00 PT 14.3 SECONDS (9.4-12.5) H 03/27/18 07:00 INR 1.24 (0.93-1.08) H 03/27/18 07:00 APTT 37.0 Seconds (25.1-36.5) H 03/27/18 07:00 - Constitutional Appears: Non-toxic, No Acute Distress, Chronically Ill - Head Exam Head Exam: ATRAUMATIC, NORMOCEPHALIC - Eye Exam Eye Exam: EOMI, PERRL Pupil Exam: NORMAL ACCOMODATION, PERRL - ENT Exam ENT Exam: Mucous Membranes Moist, Normal External Ear Exam, TM's Normal Bilaterally - Neck Exam Neck Exam: Full ROM, Normal Inspection - Respiratory Exam Respiratory Exam: Clear to Ausculation Bilateral, NORMAL BREATHING PATTERN. absent: Rales, Rhonchi, Wheezes - Cardiovascular Exam Cardiovascular Exam: REGULAR RHYTHM, RRR, +S1, +S2 - GI/Abdominal Exam GI & Abdominal Exam: Normal Bowel Sounds. absent: Distended, Soft, Tenderness - Extremities Exam Extremities Exam: Full ROM, Normal Inspection - Neurological Exam Neurological Exam: Alert, Awake, CN II-XII Intact, Oriented x3 - Psychiatric Exam Psychiatric exam: Normal Affect, Normal Mood - Skin Skin Exam: Intact, Normal Color, Warm Assessment and Plan - Assessment and Plan (Free Text) Assessment: 63 yo male with extensive and complicated medical history that includes HTN, diastolic CHF, Atrial Fibrillation s/p cardioversion, CKD stage 3B, non- alcoholic liver cirrhosis of unclear etiology (TRUJILLO), hepatic encephalopathy, chronic ascites, esophageal varices s/p banding, and GERD. Findings of a RLL infiltrate on Chest X-ray but no clear clinical findings. Started on Levaquin for antibiotic care. Patient had received Cefepime in the ER. Would give no more than 5 days of Levaquin for care. Monitor patient. Possible transfer to [facility] for liver transplant evaluation... awaiting a bed. No new issues. Thank you for allowing me to participate in the care of the patient, we will follow with you.
[2018-03-28] MEDS: Albuterol-Ipratrop 3 mg / 0.5 (3 ml) UD IH SCH (01:07)
--- NOTE | 2018-03-28 07:58 | CP.PCM.DIS ---
<Alvaro Allen - Last Filed: 03/28/18 07:46> Provider - Provider Date of Admission: 03/25/18 10:01 Attending physician: Otto Mccloud MD Primary care physician: Surinder Bishop MD Consults: ROBERT Abbott Time Spent in preparation of Discharge (in minutes): 50 Hospital Course - Lab Results Lab Results: Most Recent Lab Values WBC 5.5 10^3/ul (4.5-11.0) 03/27/18 07:00 RBC 3.18 10^6/uL (3.5-6.1) L 03/27/18 07:00 Hgb 10.7 g/dL (14.0-18.0) L 03/27/18 07:00 Hct 32.0 % (42.0-52.0) L 03/27/18 07:00 MCV 100.6 fl (80.0-105.0) 03/27/18 07:00 MCH 33.6 pg (25.0-35.0) 03/27/18 07:00 MCHC 33.4 g/dl (31.0-37.0) 03/27/18 07:00 RDW 16.2 % (11.5-14.5) H 03/27/18 07:00 Plt Count 110 10^3/uL (120.0-450.0) L 03/27/18 07:00 MPV 9.7 fl (7.0-11.0) 03/27/18 07:00 Gran % 49.8 % (50.0-68.0) L 03/27/18 07:00 Lymph % (Auto) 21.6 % (22.0-35.0) L 03/27/18 07:00 [place] % (Auto) 23.6 % (1.0-6.0) H 03/27/18 07:00 Eos % (Auto) 4.3 % (1.5-5.0) 03/27/18 07:00 Baso % (Auto) 0.7 % (0.0-3.0) 03/27/18 07:00 Gran # 2.75 (1.4-6.5) 03/27/18 07:00 Lymph # (Auto) 1.2 (1.2-3.4) 03/27/18 07:00 [place] # (Auto) 1.3 (0.1-0.6) H 03/27/18 07:00 Eos # (Auto) 0.2 (0.0-0.7) 03/27/18 07:00 Baso # (Auto) 0.04 K/mm3 (0.0-2.0) 03/27/18 07:00 Neutrophils % (Manual) 64 % (50.0-70.0) 03/25/18 05:30 Lymphocytes % (Manual) 27 % (22.0-35.0) 03/25/18 05:30 Monocytes % (Manual) 5 % (1.0-6.0) 03/25/18 05:30 Eosinophils % (Manual) 3 % (0.0-3.0) 03/25/18 05:30 Myelocytes % 1 % 03/25/18 05:30 Platelet Evaluation Low (NORMAL) 03/25/18 05:30 PT 14.3 SECONDS (9.4-12.5) H 03/27/18 07:00 INR 1.24 (0.93-1.08) H 03/27/18 07:00 APTT 37.0 Seconds (25.1-36.5) H 03/27/18 07:00 Sodium 138 mmol/L (132-148) 03/27/18 07:00 Potassium 4.3 mmol/L (3.6-5.0) 03/27/18 07:00 Chloride 106 mmol/L (98-107) 03/27/18 07:00 Carbon Dioxide 22 mmol/L (21-33) 03/27/18 07:00 Anion Gap 15 (10-20) 03/27/18 07:00 BUN 37 mg/dL (7-21) H 03/27/18 07:00 Creatinine 1.5 mg/dl (0.8-1.5) 03/27/18 07:00 Est GFR ( Amer) 57 03/27/18 07:00 Est GFR (Non-Af Amer) 47 03/27/18 07:00 Random Glucose 80 mg/dL (70-110) 03/27/18 07:00 Calcium 8.8 mg/dL (8.4-10.5) 03/27/18 07:00 Phosphorus 3.4 mg/dL (2.5-4.5) 03/27/18 07:00 Magnesium 1.9 mg/dL (1.7-2.2) 03/27/18 07:00 Total Bilirubin 2.5 mg/dL (0.2-1.3) H 03/27/18 07:00 AST 67 U/L (17-59) H 03/27/18 07:00 ALT 35 U/L (7-56) 03/27/18 07:00 Alkaline Phosphatase 352 U/L (38-126) H 03/27/18 07:00 Ammonia 19 umol/L (9-33) 03/27/18 07:00 Lactate Dehydrogenase 398 U/L (333-699) 03/24/18 09:00 Total Creatine Kinase 49 U/L (35-230) 03/24/18 09:00 Troponin I < 0.01 ng/mL 03/26/18 06:30 Total Protein 7.4 g/dL (5.8-8.3) 03/27/18 07:00 Albumin 2.8 g/dL (3.0-4.8) L 03/27/18 07:00 Globulin 4.6 gm/dL 03/27/18 07:00 Albumin/Globulin Ratio 0.6 (1.1-1.8) L 03/27/18 07:00 Procalcitonin 0.33 NG/ML (0.19-0.49) 03/24/18 06:00 Urine Color Yellow (YELLOW) 03/24/18 06:59 Urine Appearance Clear (CLEAR) 03/24/18 06:59 Urine pH 6.0 (4.7-8.0) 03/24/18 06:59 Ur Specific [place] 1.025 (1.005-1.035) 03/24/18 06:59 Urine Protein Trace mg/dL (<30 mg/dL) H 03/24/18 06:59 Urine Glucose (UA) Negative mg/dL (NEGATIVE) 03/24/18 06:59 Urine Ketones Trace mg/dL (NEGATIVE) H 03/24/18 06:59 Urine Blood Negative (NEGATIVE) 03/24/18 06:59 Urine Nitrate Negative (NEGATIVE) 03/24/18 06:59 Urine Bilirubin Negative (NEGATIVE) 03/24/18 06:59 Urine Urobilinogen 0.2 E.U./dL (<1 E.U./dL) 03/24/18 06:59 Ur Leukocyte Esterase Trace Tomy/uL (NEGATIVE) H 03/24/18 06:59 Urine RBC 0 - 2 /hpf (0-2) 18 06:59 Urine WBC 2 - 5 /hpf (0-6) 03/24/18 06:59 Ur Epithelial Cells None /hpf (0-5) 03/24/18 06:59 Urine Bacteria Mod (NEG) 03/24/18 06:59 Ur L.pneumophila Ag Negative (NEGATIVE) 03/26/18 07:00 - Hospital Course Hospital Course: As per admission documentation 63 year old male with a complicated past medical history presents s/p fall. Patient states that when he was getting out of bed this morning, his foot got stuck in his blanket, which caused him to fall and hit his head on a soft surface which he thinks was his bed. Patient denies aura before falling or loss of consciousness. Patient states that his head hurts despite the soft surface, as does the front of his face. Patient is also complaining of unrelated back pain that has been going on for a few days now, which makes it difficult to lay flat in bed. In the ED a chest XR was done which showed a possible RLL infiltrate - but patient denies subjective fevers, productive cough, or shortness of breath. Hospital Course Patient was admitted for possible syncopal episode vs mechanical fall and possible pneumonia. Infectious disease consulted, Dr. Abbott. Patient was afebrile and nontoxic appearing throughout hospital stay. WBC count was normal. Patient started on Levaquin PO 500mg daily and received 4 days of a 5 day course while in the hospital. Blood cultures were negative at [address] Orbital CT negative Patient was transferred to [facility] on 03/27[facility]18 due to Liver cirrhosis, MELD score of 19 and need for liver transplant evaluation. Accepting physician was Dr. Naranjo. Physical Exam Appears: Non-toxic, No Acute Distress Head Exam: ATRAUMATIC, NORMOCEPHALIC Eye Exam: EOMI, Normal appearance ENT Exam: Mucous Membranes Moist Neck Exam: absent: Lymphadenopathy Respiratory Exam: Clear to Ausculation Bilateral (currently receiving breathing treatment at time of exam), NORMAL BREATHING PATTERN. absent: Accessory Muscle Use, Rales, Wheezes, Respiratory Distress Cardiovascular Exam: REGULAR RHYTHM, +S1, +S2. absent: JVD GI & Abdominal Exam: Distended (+ fluid wave), Soft, Normal Bowel Sounds. absent: Guarding, Rigid, Tenderness Extremities Exam: absent: Calf Tenderness, Pedal Edema Neurological Exam: Alert, Awake, CN II-XII Intact, Oriented x3 Psychiatric exam: Normal Affect, Normal Mood Skin Exam: Dry, Warm Discharge Exam - Head Exam Head Exam: ATRAUMATIC, NORMOCEPHALIC Discharge Plan - Follow Up Plan Condition: FAIR Disposition: OTHER INSTITUTION Additional Instructions: Patient transferred to [facility] on 03/27/18 due to liver cirrhosis, MELD score of 19 and need for liver transplant evaluation. Referrals: Surinder Bishop MD [Primary Care Provider] - <Otto Mccloud - Last Filed: 03/28/18 09:04> Provider - Provider Date of Admission: 03/25/18 10:01 Attending physician: Otto Mccloud MD Primary care physician: Surinder Bishop MD Hospital Course - Lab Results Lab Results: Most Recent Lab Values WBC 5.5 10^3/ul (4.5-11.0) 03/27/18 07:00 RBC 3.18 10^6/uL (3.5-6.1) L 03/27/18 07:00 Hgb 10.7 g/dL (14.0-18.0) L 03/27/18 07:00 Hct 32.0 % (42.0-52.0) L 03/27/18 07:00 MCV 100.6 fl (80.0-105.0) 03/27/18 07:00 MCH 33.6 pg (25.0-35.0) 03/27/18 07:00 MCHC 33.4 g/dl (31.0-37.0) 03/27/18 07:00 RDW 16.2 % (11.5-14.5) H 03/27/18 07:00 Plt Count 110 10^3/uL (120.0-450.0) L 03/27/18 07:00 MPV 9.7 fl (7.0-11.0) 03/27/18 07:00 Gran % 49.8 % (50.0-68.0) L 03/27/18 07:00 Lymph % (Auto) 21.6 % (22.0-35.0) L 03/27/18 07:00 [place] % (Auto) 23.6 % (1.0-6.0) H 03/27/18 07:00 Eos % (Auto) 4.3 % (1.5-5.0) 03/27/18 07:00 Baso % (Auto) 0.7 % (0.0-3.0) 03/27/18 07:00 Gran # 2.75 (1.4-6.5) 03/27/18 07:00 Lymph # (Auto) 1.2 (1.2-3.4) 03/27/18 07:00 [place] # (Auto) 1.3 (0.1-0.6) H 03/27/18 07:00 Eos # (Auto) 0.2 (0.0-0.7) 03/27/18 07:00 Baso # (Auto) 0.04 K/mm3 (0.0-2.0) 03/27/18 07:00 Neutrophils % (Manual) 64 % (50.0-70.0) 03/25/18 05:30 Lymphocytes % (Manual) 27 % (22.0-35.0) 03/25/18 05:30 Monocytes % (Manual) 5 % (1.0-6.0) 03/25/18 05:30 Eosinophils % (Manual) 3 % (0.0-3.0) 03/25/18 05:30 Myelocytes % 1 % 03/25/18 05:30 Platelet Evaluation Low (NORMAL) 03/25/18 05:30 PT 14.3 SECONDS (9.4-12.5) H 03/27/18 07:00 INR 1.24 (0.93-1.08) H 03/27/18 07:00 APTT 37.0 Seconds (25.1-36.5) H 03/27/18 07:00 Sodium 138 mmol/L (132-148) 03/27/18 07:00 Potassium 4.3 mmol/L (3.6-5.0) 03/27/18 07:00 Chloride 106 mmol/L (98-107) 03/27/18 07:00 Carbon Dioxide 22 mmol/L (21-33) 03/27/18 07:00 Anion Gap 15 (10-20) 03/27/18 07:00 BUN 37 mg/dL (7-21) H 03/27/18 07:00 Creatinine 1.5 mg/dl (0.8-1.5) 03/27/18 07:00 Est GFR ( Amer) 57 03/27/18 07:00 Est GFR (Non-Af Amer) 47 03/27/18 07:00 Random Glucose 80 mg/dL (70-110) 03/27/18 07:00 Calcium 8.8 mg/dL (8.4-10.5) 03/27/18 07:00 Phosphorus 3.4 mg/dL (2.5-4.5) 03/27/18 07:00 Magnesium 1.9 mg/dL (1.7-2.2) 03/27/18 07:00 Total Bilirubin 2.5 mg/dL (0.2-1.3) H 03/27/18 07:00 AST 67 U/L (17-59) H 03/27/18 07:00 ALT 35 U/L (7-56) 03/27/18 07:00 Alkaline Phosphatase 352 U/L (38-126) H 03/27/18 07:00 Ammonia 19 umol/L (9-33) 03/27/18 07:00 Lactate Dehydrogenase 398 U/L (333-699) 03/24/18 09:00 Total Creatine Kinase 49 U/L (35-230) 03/24/18 09:00 Troponin I < 0.01 ng/mL 03/26/18 06:30 Total Protein 7.4 g/dL (5.8-8.3) 03/27/18 07:00 Albumin 2.8 g/dL (3.0-4.8) L 03/27/18 07:00 Globulin 4.6 gm/dL 03/27/18 07:00 Albumin/Globulin Ratio 0.6 (1.1-1.8) L 03/27/18 07:00 Procalcitonin 0.33 NG/ML (0.19-0.49) 03/24/18 06:00 Urine Color Yellow (YELLOW) 03/24/18 06:59 Urine Appearance Clear (CLEAR) 03/24/18 06:59 Urine pH 6.0 (4.7-8.0) 03/24/18 06:59 Ur Specific [place] 1.025 (1.005-1.035) 03/24/18 06:59 Urine Protein Trace mg/dL (<30 mg/dL) H 03/24/18 06:59 Urine Glucose (UA) Negative mg/dL (NEGATIVE) 03/24/18 06:59 Urine Ketones Trace mg/dL (NEGATIVE) H 03/24/18 06:59 Urine Blood Negative (NEGATIVE) 03/24/18 06:59 Urine Nitrate Negative (NEGATIVE) 03/24/18 06:59 Urine Bilirubin Negative (NEGATIVE) 03/24/18 06:59 Urine Urobilinogen 0.2 E.U./dL (<1 E.U./dL) 03/24/18 06:59 Ur Leukocyte Esterase Trace Tomy/uL (NEGATIVE) H 03/24/18 06:59 Urine RBC 0 - 2 /hpf (0-2) 03/24/18 06:59 Urine WBC 2 - 5 /hpf (0-6) 03/24/18 06:59 Ur Epithelial Cells None /hpf (0-5) 03/24/18 06:59 Urine Bacteria Mod (NEG) 03/24/18 06:59 Ur L.pneumophila Ag Negative (NEGATIVE) 03/26/18 07:00 Attending/Attestation - Attestation I have reviewed all pertinent clinical information, including history, physical exam and plan: Yes Notes (Text): 03/28/18 09:03 63 year old male with past medical history of CKD, cirrhosis, hepatic encephalopathy who presented s/p mechanical fall. CT head was negative for acute findings. He is going for echocardiogram today. He is on antibiotics for possibly pneumonia on CXR. ID is following. Patient has been accepted and transfered to [facility] overnight. Otto Mccloud MD Hospitalist.
--- NOTE | 2018-03-28 10:01 | CARD ---
APPROVED REPORT EXAM: Two-dimensional and M-mode echocardiogram with Doppler and color Doppler. Other Information Quality : FairRhythm : INDICATION Dyspnea , Evaluate LV function. 2D DIMENSIONS Left Atrium (2D)4.1 (1.6-4.0cm)IVSd1.1 (0.7-1.1cm) LVDd4.3 (3.9-5.9cm)PWd1.1 (0.7-1.1cm) LVDs3.0 (2.5-4.0cm)FS (%) 31.2 % LVEF (%)59.0 (>50%) M-Mode DIMENSIONS Aortic Root2.50 (2.2-3.7cm)Aortic Cusp Exc.0.70 (1.5-2.0cm) Aortic Valve AoV Peak Ekbfbaxn581.0cm/Melissa Peak GR.11mmHg Mitral Valve MV E Mfugzloq81.2cm/sMV A Vemddcfd96.4cm/sE/A ratio1.3 TDI E/Lateral E'0.0E/Medial E'0.0 Tricuspid Valve TR Peak [id number]/sRAP [id number] Peak Gr.18mmHg [id number] LEFT VENTRICLE The left ventricle is normal size. There is normal left ventricular wall thickness. The left ventricular function is normal. The left ventricular ejection fraction is within the normal range. There is normal LV segmental wall motion. RIGHT VENTRICLE The right ventricle is normal size. ATRIA The left atrium is moderately dilated. The right atrium size is normal. The interatrial septum is intact with no evidence for an atrial septal defect. AORTIC VALVE The aortic valve is moderately calcified. There is mild to moderate valvular aortic stenosis. MITRAL VALVE The mitral valve is moderately thickened but opens well. Mitral annular calcification is moderate. The subvalvular structures are calcified. TRICUSPID VALVE The tricuspid valve is not well visualized. There is mild tricuspid regurgitation. PULMONIC VALVE The pulmonic valve is not well visualized. <Conclusion> This is a limited study. The left ventricle is normal size. There is normal left ventricular wall thickness. The left ventricular function is normal. The aortic valve is moderately calcified. There is mild to moderate valvular aortic stenosis.
== END 2018-03-28 03:36 | disposition short-term general hospital (02) | DRG 194 ==
LOC: ED 02:19 → ERH 05:07 → 3RSO 10:35 → OBSVTOIN 03-25 10:01
PROVIDERS: ADMIT Internal Medicine; ATTEND Internal Medicine
PROC: 3E0F7GC Introduction of Other Therapeutic Substance into Respiratory Tract, Via Natural or Artificial Opening (ICD-10-PCS; principal; 2018-03-25)
DX: J18.9 Pneumonia, unspecified organism (principal); I13.0 Hypertensive heart and chronic kidney disease with heart failure and stage 1 through stage 4 chronic kidney disease, or unspecified chronic kidney disease; R18.8 Other ascites; I50.32 Chronic diastolic (congestive) heart failure; I85.10 Secondary esophageal varices without bleeding; K74.60 Unspecified cirrhosis of liver; N18.3 Chronic kidney disease, stage 3 (moderate); I48.91 Unspecified atrial fibrillation; K21.9 Gastro-esophageal reflux disease without esophagitis; K72.90 Hepatic failure, unspecified without coma; I25.10 Atherosclerotic heart disease of native coronary artery without angina pectoris; D64.9 Anemia, unspecified; K75.81 Nonalcoholic steatohepatitis (NASH); G89.29 Other chronic pain; M48.061 Spinal stenosis, lumbar region without neurogenic claudication; F41.9 Anxiety disorder, unspecified; Z95.5 Presence of coronary angioplasty implant and graft; Z76.82 Awaiting organ transplant status; Z91.81 History of falling; Z87.891 Personal history of nicotine dependence

== ENCOUNTER 2018-04-11 01:07 | Inpatient (IN) | payer BC ==
[2018-04-11] MEDS ORDERED: Sodium Chloride 0.9% 1,000 ML IV STA (01:58)
--- NOTE | 2018-04-11 01:58 | ED PDOC ---
Arrival/HPI - General Chief Complaint: GI Problem Time Seen by Provider: 04/11/18 01:57 - History of Present Illness Narrative History of Present Illness (Text): 04/11/18 01:58 63 year old male, whose past medical history includes Hypertension, diastolic CHF, Atrial Fibrillation s/p cardioversion, CKD stage 3B, non-alcoholic liver cirrhosis of unclear etiology, hepatic encephalopathy, chronic ascites, esophageal varices s/p banding, and GERD, presents to the emergency department complaining of lower throat pain radiating downward that began this afternoon. Patient reports he had esophageal bands placed 1-[address] Saenz. Patient receives his liver care at [facility]. He reports vomiting blood a few hours ago and unable to swallow down food or water, but denies any fever, chills, chest pain, shortness of breath, abdominal pain, nausea, diarrhea , urinary symptoms, back pain, neck pain, headache, dizziness, or any other complaints. PMD: Dr. Bishop GI: Dr. Saenz Past Medical History - Provider Review Nursing Documentation Reviewed: Yes - Infectious Disease Hx of Infectious Diseases: None - Tetanus Immunization Tetanus Immunization: Unknown - Cardiac Hx Cardiac Disorders: Yes Hx Congestive Heart Failure: Yes Hx Hypertension: Yes - Pulmonary Hx Pneumonia: Yes - Neurological Hx Neurological Disorder: No - HEENT Hx HEENT Disorder: No - Renal Hx Renal Failure: Yes - Endocrine/Metabolic Hx Endocrine Disorders: No - Hematological/Oncological Hx Blood Disorders: Yes Hx Cirrhosis: Yes (non-alcoholic) - Integumentary Hx Dermatological Disorder: No - Musculoskeletal/Rheumatological Hx Back Pain: Yes Hx Falls: Yes - Gastrointestinal Hx Gastrointestinal Disorders: Yes Hx Liver Failure: Yes - Genitourinary/Gynecological Hx Genitourinary Disorders: No - Psychiatric Hx Anxiety: Yes Hx Depression: Yes Hx Substance Use: No - Surgical History Hx Cardiac Catheterization: Yes Hx Coronary Stent: Yes - Anesthesia Hx Anesthesia: Yes Hx Anesthesia Reactions: No Hx Malignant Hyperthermia: No Family/Social History - Physician Review Nursing Documentation Reviewed: Yes Family/Social History: No Known Family HX Smoking Status: Former Smoker Hx Alcohol Use: No Hx Substance Use: No Allergies/Home Meds Allergies/Adverse Reactions: Allergies Beef Containing Products Allergy (Severe, Verified 03/24/18 02:37) ANAPHYLAXIS tounge swelling, beef derived (bovine) Allergy (Severe, Verified 03/24/18 02:37) ANAPHYLAXIS tounge swelling banana Allergy (Intermediate, Verified 03/24/18 02:37) ITCHING velcro Allergy (Uncoded 03/24/18 02:37) ITCHING Home Medications: Home Meds Medication Instructions Recorded Confirmed Cholecalciferol (Vitamin D3) 2,000 unit PO DAILY 11/20/17 04/11/18 [Vitamin D3] Cyanocobalamin [Vitamin B12 1000 1,000 mcg PO DAILY 11/20/17 04/11/18 mcg Tab] ALPRAZolam [Xanax] 0.5 mg PO HS 01/25/18 04/11/18 Furosemide [Lasix] 20 mg PO DAILY 03/24/18 04/11/18 Lactulose [Enulose] 30 ml PO DAILY 03/24/18 04/11/18 Spironolactone 25 mg PO DAILY 03/24/18 04/11/18 Spironolactone [Aldactone] 25 mg PO DAILY 03/24/18 04/11/18 Zinc Sulfate [Orazinc 220] 220 mg PO BID 03/24/18 04/11/18 Review of Systems - Physician Review All systems were reviewed & negative as marked: Yes - Review of Systems Constitutional: absent: Fevers Cardiovascular: absent: Chest Pain Physical Exam - Physical Exam Narrative Physical Exam (Text): Constitutional: No acute distress. Head: Normocephalic. Atraumatic. Eyes: PERRL. ENT: Moist mucous membranes. Neck: Supple. Cardiovascular: Regular rate. Chest: No tenderness. Respiratory: Clear to auscultation bilaterally. GI: Epigastric Tenderness. Nondistended. Back: No CVA tenderness. Musculoskeletal: No tenderness or swelling of extremities. Skin: No rash. Neurologic: Alert, no focal deficit. Vital Signs Temp Pulse Resp BP Pulse Ox 04/11/18 06:23 66 18 107/61 99 04/11/18 05:53 66 18 107/61 99 04/11/18 01:59 78 18 112/65 100 04/11/18 01:25 98.1 F 76 18 92/60 L 98 Medical Decision Making ED Course and Treatment: 04/11/18 01:58 Impression: 63 year old male presents complaining of lower throat pain radiating downward that began this afternoon associated with vomiting blood today and unable to swallow food or water. Plan: -- Labs -- EKG -- CT ABD & Pelvis w/o contrast -- Chest X-Ray -- Morphine, IV Fluid, Zofran Inj -- Reassess and disposition Prior Visits: Notes and results from previous visits were reviewed. On 02/19/18 patient came in complaining of urinary frequency, decreased PO intake, and vomiting bile. Patient was admitted. Progress Notes: 04/11/18 03:58 EKG: Ordered, reviewed, and independently interpreted the EKG. Rate : 73 BPM Rhythm : NSR Interpretation : No ST-segment elevations Comparison : No previous EKG for comparison. EXAM:CT Abdomen and Pelvis Without Intravenous Contrast Dictated and Authenticated by: Chava Marques MD 04/11/2018 4:58 AM IMPRESSION: 1. Cirrhosis with portal hypertension. 2. Right pleural effusion with compressive atelectasis. Superimposed pneumonia not excluded. 3. Incidental/non-acute findings are described above. 04/11/18 05:03 Case discussed with Vehicle Calibration Engineer and Dr. Coleman who is aware and agrees with the plan. Accepts patient into hospitalist service. - Lab Interpretations Lab Results: 04/11/18 02:15 04/11/18 02:15 Lab Results 04/11/18 02:15: PT 16.9 H, INR 1.47 H, APTT 34.6 04/11/18 02:15: WBC 8.2 D, RBC 3.19 L, Hgb 10.8 L, Hct 31.4 L, MCV 98.4, MCH 33.9, MCHC 34.4, RDW 17.4 H, Plt Count 125, MPV 10.5, Gran % 34.6 L, Lymph % ( Auto) 15.9 L, Gage % (Auto) 12.3 H, Eos % (Auto) 36.6 H, Baso % (Auto) 0.6, Gran # 2.82, Lymph # (Auto) 1.3, Gage # (Auto) 1.0 H, Eos # (Auto) 3.0 H, Baso # (Auto) 0.05, Neutrophils % (Manual) 41 L, Band Neutrophils % 5 H, Lymphocytes % (Manual) 17 L, Monocytes % (Manual) 6, Eosinophils % (Manual) 31 H, Platelet Evaluation Normal 04/11/18 02:15: Blood Type A NEGATIVE, Antibody Screen Negative, BBK History Checked Patient has bt 04/11/18 02:15: Sodium 142, Potassium 3.7, Chloride 100, Carbon Dioxide 27, Anion Gap 19, BUN 48 H, Creatinine 2.3 H, Est GFR ( Amer) 35, Est GFR ( Non-Af Amer) 29, Random Glucose 109, Calcium 9.0, Total Bilirubin 2.3 H, AST 93 H D, ALT 48, Alkaline Phosphatase 475 H D, Total Protein 8.1, Albumin 3.7, Globulin 4.5, Albumin/Globulin Ratio 0.8 L, Lipase 161 I have reviewed the lab results: Yes - RAD Interpretation Radiology Orders: 04/11/18 01:58 CHEST PORTABLE [RAD] Stat 04/11/18 02:01 ABD & PELVIS W/O PO OR IV CONT [CT] Stat - EKG Interpretation Interpreted by ED Physician: Yes Type: 12 lead EKG - Medication Orders Current Medication Orders: Albumin Human (Albumin Human 25% (12.5 Gm/50 Ml)) 12.5 gm IV Q5H BIBIANA Stop: 04/12/18 11:31 Last Admin: 04/11/18 15:34 Dose: 12.5 gm eMAR Start Stop Document 04/11/18 15:34 MJO (Rec: 04/11/18 15:34 O [id number]) Intravenous Solution Start Date 04/11/18 Start Time 15:34 End Date 04/11/18 End time 16:34 Total Infusion Time 60 Albumin Human (Albumin Human 25% (12.5 Gm/50 Ml)) 12.5 gm IV Q1H BIB[place]NA Stop: 04/11/18 20:31 Last Admin: 04/11/18 18:31 Dose: Meropenem 500 mg/ Sodium (Chloride) 50 mls @ 100 mls/hr IVPB Q12 BIB[place]NA PRN Reason: Protocol Stop: 04/11/18 22:29 Ondansetron HCl (Zofran Inj) 4 mg IVP Q6H PRN PRN Reason: Nausea/Vomiting Last Admin: 04/11/18 13:17 Dose: 4 mg IVP Administration Document 04/11/18 13:17 MJO (Rec: 04/11/18 13:17 O [id number]) Charges for Administration # of IVP Administrations 1 Pantoprazole Sodium (Protonix Inj) 40 mg IVP Q12 BIBIANA Last Admin: 04/11/18 11:35 Dose: 40 mg IVP Administration Document 04/11/18 11:35 MJO (Rec: 04/11/18 11:36 [id number] Charges for Administration # of IVP Administrations 1 Vitamin A (Vitamin A & D Oint Ud Foilpak) 1 ea TOP Q2 PRN PRN Reason: Dry mouth Discontinued Medications Albumin Human (Albumin Human 25% (12.5 Gm/50 Ml)) 12.5 gm IV Q5H BIB[place]NA Stop: 04/12/18 09:01 Sodium Chloride (Sodium Chloride 0.9%) 1,000 mls @ 999 mls/hr IV .Q1H1M STA Stop: 04/11/18 02:58 Last Admin: 04/11/18 02:23 Dose: 999 mls/hr eMAR Start Stop Document 04/11/18 02:23 AD (Rec: 04/11/18 02:23 AD [id number]) Intravenous Solution Start Date 04/11/18 Start Time 02:23 Ketorolac Tromethamine (Toradol) 30 mg IVP STAT STA Stop: 04/11/18 14:34 Last Admin: 04/11/18 14:39 Dose: 30 mg [facility] Pain Assessment Document 04/11/18 14:39 MJO (Rec: 04/11/18 14:[id number]) Pain Reassessment Is this a pain reassessment? No Sleep Is patient sleeping during reassessment? No Presence of Pain Presence of Pain Yes Pain Scale Used Pain Scale Used Numeric Location Pain Location Body Site Throat Abdomen Description Description Acute Intensity of Pain at present 7 Pain Behavior Irritability Facial Grimacing Alleviating Factors/Management Medication Techniques Alleviating Factors Medication IVP Administration Document 04/11/18 14:39 MJO (Rec: 04/11/18 14:39 [id number] Charges for Administration # of IVP Administrations 1 Re-Assess: TAMMI Pain Assessment Document 04/11/18 15:39 MJO (Rec: 04/11/18 18:08 MJ [id number]) Pain Reassessment Is this a pain reassessment? Yes Sleep Is patient sleeping during reassessment? No Presence of Pain Presence of Pain No Morphine Sulfate (Morphine) 2 mg IVP STAT STA Stop: 04/11/18 02:05 Last Admin: 04/11/18 02:23 Dose: 2 mg MAR Pain Assessment Document 04/11/18 02:23 AD (Rec: 04/11/18 02:24 AD [id number]) Pain Reassessment Is this a pain reassessment? No Presence of Pain Presence of Pain Yes Description Intensity of Pain at present 8 Pain Behavior Facial Grimacing IVP Administration Document 04/11/18 02:23 AD (Rec: 04/11/18 02:24 AD [id number]) Charges for Administration # of IVP Administrations 1 Ondansetron HCl (Zofran Inj) 8 mg IVP STAT STA Stop: 04/11/18 01:59 Last Admin: 04/11/18 02:23 Dose: 8 mg IVP Administration Document 04/11/18 02:23 AD (Rec: 04/11/18 02:23 AD [id number]) Charges for Administration # of IVP Administrations 1 Pantoprazole Sodium (Protonix Inj) 80 mg IVP STAT STA Stop: 04/11/18 05:06 Last Admin: 04/11/18 05:30 Dose: 80 mg IVP Administration Document 04/11/18 05:30 AD (Rec: 04/11/18 05:42 AD [id number]) Charges for Administration # of IVP Administrations 1 Tramadol HCl (Ultram) 50 mg PO ONCE ONE Stop: 04/11/18 14:21 - Scribe Statement The provider has reviewed the documentation as recorded by the Corina De Santiago Provider Scribe Attestation: All medical record entries made by the Corina were at my direction and personally dictated by me. I have reviewed the chart and agree that the record accurately reflects my personal performance of the history, physical exam, medical decision making, and the department course for this patient. I have also personally directed, reviewed, and agree with the discharge instructions and disposition. Disposition/Present on Arrival - Present on Arrival Any Indicators Present on Arrival: No History of DVT/PE: No History of Uncontrolled Diabetes: No Urinary Catheter: No History of Decub. Ulcer: No History Surgical Site Infection Following: None - Disposition Have Diagnosis and Disposition been Completed?: Yes Diagnosis: Acute renal failure, Upper GI bleed Disposition: HOSPITALIZED Disposition Time: 05:00 Patient Plan: Admission Condition: GUARDED
[2018-04-11] MEDS ORDERED: Morphine 4 mg/ml ISec IVP STA (02:04)
[2018-04-11 02:32] LABS: BASO # 0.05 K/mm3 (0.0-2.0); BASO % 0.6 % (0.0-3.0); EOS % 36.6 % (1.5-5.0); GRAN # 2.82 (1.4-6.5); GRAN % 34.6 % (50.0-68.0); HEMOGLOBIN 10.8 g/dL (14.0-18.0); LYMPH # 1.3 (1.2-3.4); LYMPH % 15.9 % (22.0-35.0); MEAN CELL VOLUME 98.4 fl (80.0-105.0); MEAN CORPUSCULAR HEMOGLOBIN 33.9 pg (25.0-35.0); MEAN CORPUSCULAR HGB CONC 34.4 g/dl (31.0-37.0); MEAN PLATELET VOLUME 10.5 fl (7.0-11.0); MONO % 12.3 % (1.0-6.0); PLATELET COUNT 125 10^3/uL (120.0-450.0); RBC 3.19 10^6/uL (3.5-6.1); RED CELL DISTRIBUTION WIDTH 17.4 % (11.5-14.5); WHITE BLOOD COUNT 8.2 10^3/ul (4.5-11.0)
[2018-04-11 02:34] LABS: ALB/GLOB RATIO 0.8 (1.1-1.8); ALBUMIN 3.7 g/dL (3.0-4.8)
[2018-04-11 02:42] LABS: INR 1.47 (0.93-1.08); PARTIAL THROMBOPLASTIN TIME 34.6 Seconds (25.1-36.5); PROTHROMBIN TIME 16.9 SECONDS (9.4-12.5)
[2018-04-11 04:50] LABS: BAND 5 % (0-2); EOSINOPHIL 31 % (0.0-3.0); LYMPHOCYTE 17 % (22.0-35.0); MONOCYTE 6 % (1.0-6.0); NEUTROPHIL 41 % (50.0-70.0); PLATELET ESTIMATE NORMAL (NORMAL)
--- NOTE | 2018-04-11 04:59 | CT ---
EXAM: CT Abdomen and Pelvis Without Intravenous Contrast CLINICAL HISTORY: 63 years old, male; Pain; Abdominal pain; Additional info: Abd pain, vomiting TECHNIQUE: Axial computed tomography images of the abdomen and pelvis without intravenous contrast. All CT scans at this facility use one or more dose reduction techniques, viz.: automated exposure control; ma/kV adjustment per patient size (including targeted exams where dose is matched to indication; i.e. head); or iterative reconstruction technique. Coronal and sagittal reformatted images were created and reviewed. COMPARISON: CT - ABD PELVIS PO CONTRAST ONLY 2018-02-19 15:08 FINDINGS: Limitations: Lack of intravenous contrast. Streak artifact - mild. Lung bases: Moderate peripheral consolidation within RIGHT lower lobe. Elevated RIGHT hemidiaphragm. Pleural space: Moderate RIGHT pleural effusion. Trace LEFT pleural effusion. Heart: Coronary artery calcifications. ABDOMEN: Liver: Lobulated contour. Gallbladder and bile ducts: No calcified stones. No ductal dilation. Pancreas: Unremarkable. No ductal dilation. Spleen: Mildly enlarged. Adrenals: Mild hypertrophy of adrenal glands. Kidneys and ureters: Few vascular calcifications and/or calculi within kidneys. No hydronephrosis. Stomach and bowel: Few scattered diverticula within colon. Segmental areas of probable underdistention of colon. No definite mural thickening. No obstruction. PELVIS: Appendix: No definite findings to suggest acute appendicitis. Bladder: Unremarkable. No stones. Reproductive: Unremarkable as visualized. ABDOMEN and PELVIS: Intraperitoneal space: Large amount of free fluid within abdomen and pelvis. No free air. Bones/joints: Degenerative changes of spine. Moderate compression deformities T9, T12 vertebral bodies, subacute. Mild compression deformities T11, L1, L3 vertebral bodies, acute or subacute. Soft tissues: Moderate-sized RIGHT inguinal hernia containing fluid. Mild gynecomastia. Vasculature: Moderate to extensive atherosclerotic disease. No aneurysm. Lymph nodes: No pathologically enlarged lymph nodes. IMPRESSION: 1. Cirrhosis with portal hypertension. 2. Right pleural effusion with compressive atelectasis. Superimposed pneumonia not excluded. 3. Incidental/non-acute findings are described above.
[2018-04-11] MEDS ORDERED: Vitamins A & D Oint UD Foilpak TOP PRN (05:51)
--- NOTE | 2018-04-11 06:06 | CP.PCM.HP ---
<John Murray - Last Filed: 04/11/18 05:59> History of Present Illness - History of Present Illness History of Present Illness: Mr. Lane is a 63 year old male with a past medical history significant for HTN, diastolic CHF, Atrial Fibrillation s/p cardioversion, CKD stage 3B, non- alcoholic liver cirrhosis of unclear etiology, hepatic encephalopathy, chronic ascites, esophageal varices s/p banding, and GERD who presented with three days of nausea, vomiting, hematemesis, dysphagia, blood tinged stools and intermittent SOB. Patient reports that three days ago he started to have difficulty swallowing with an associated dysphagia with all PO intake, including liquids and soft solids. He also endorses one episode of dark maroon blood in his stool. Patient endorses that he was told by [facility] that he needed to gain 30-40 pounds before he could have a liver transplant and patient has been trying to increase his PO intake by drinking more Boost supplements. Shortly after this trial of increased PO intake, patient began to have his presenting symptoms. Over the past Of note, patient has had therapeutic paracentesis within the last 3 weeks at [facility]. Patient denies any further complaints at this time including fevers, chills, headache, chest pain, wheezing , hemoptysis, abdominal pain, diarrhea, constipation, changes in urine output, skin changes, or any numbness/tingling of any extremity. PMH: HTN, GERD, Non-alcoholic liver cirrhosis, Ascites, CHF, afib s/p cardioversion and esophageal varices PSH: Inguinal hernia repair Social History: Denies alcohol, drug used; Former smoker, quit 1.5 years ago Family History: Mother - [place], heart disease; Father - [place] Allergies: Beef products, banana Home Medications: As per [facility] PMD: Dr. Bishop Present on Admission - Present on Admission Any Indicators Present on Admission: No Review of Systems - Review of Systems Review of Systems: As per HPI, otherwise negative Past Patient History - Infectious Disease Hx of Infectious Diseases: None - Tetanus Immunizations Tetanus Immunization: Unknown - Past Medical History & Family History Past Medical History?: Yes - Past Social History Smoking Status: Former Smoker - CARDIAC Hx Cardiac Disorders: Yes Hx Congestive Heart Failure: Yes Hx Hypertension: Yes - PULMONARY Hx Pneumonia: Yes - NEUROLOGICAL Hx Neurological Disorder: No - HEENT Hx HEENT Problems: No - RENAL Hx Renal Failure: Yes - ENDOCRINE/METABOLIC Hx Endocrine Disorders: No - HEMATOLOGICAL/ONCOLOGICAL Hx Blood Disorders: Yes Hx Cirrhosis: Yes (non-alcoholic) - INTEGUMENTARY Hx Dermatological Problems: No - MUSCULOSKELETAL/RHEUMATOLOGICAL Hx Back Pain: Yes Hx Falls: Yes - GASTROINTESTINAL Hx Gastrointestinal Disorders: Yes Hx Liver Failure: Yes - GENITOURINARY/GYNECOLOGICAL Hx Genitourinary Disorders: No - PSYCHIATRIC Hx Anxiety: Yes Hx Depression: Yes Hx Substance Use: No - SURGICAL HISTORY Hx Cardiac Catheterization: Yes Hx Coronary Stent: Yes - ANESTHESIA Hx Anesthesia: Yes Hx Anesthesia Reactions: No Hx Malignant Hyperthermia: No Meds Allergies/Adverse Reactions: Allergies Allergy/AdvReac Type Severity Reaction Status Date / Time Beef Containing Products Allergy Severe ANAPHYLAXIS Verified 03/24/18 02:37 beef derived (bovine) Allergy Severe ANAPHYLAXIS Verified 03/24/18 02:37 banana Allergy Intermediate ITCHING Verified 03/24/18 02:37 velcro Allergy ITCHING Uncoded 03/24/18 02:37 Physical Exam - Constitutional Appears: Non-toxic, No Acute Distress - Head Exam Head Exam: ATRAUMATIC, NORMOCEPHALIC - Eye Exam Eye Exam: EOMI, PERRL - ENT Exam ENT Exam: Mucous Membranes Dry - Neck Exam Neck exam: Positive for: Full Rom, Normal Inspection. Negative for: Lymphadenopathy, Meningismus, Tenderness, Thyromegaly - Respiratory Exam Respiratory Exam: Decreased Breath Sounds (RLL and RML), NORMAL BREATHING PATTERN. absent: Accessory Muscle Use, Chest Wall Tenderness, Clear to Auscultation Bilateral, Prolonged Expiratory Phase, Rales, Rhonchi, Wheezes, Respiratory Distress, Stridor - Cardiovascular Exam Cardiovascular Exam: REGULAR RHYTHM, RRR, +S1, +S2. absent: Bradycardia, Tachycardia, Clicks, Diastolic murmur, Gallop, Irregular Rhythm, JVD, Rubs, +S4 , Systolic Murmur - GI/Abdominal Exam GI & Abdominal Exam: Distended, Normal Bowel Sounds, Soft. absent: Bruit, Diminished Bowel Sounds, Firm, Guarding, Hernia, Hyperactive Bowel Sounds, Hypoactive Bowel Sounds, Mass, Rebound, Rigid, Tenderness - Extremities Exam Extremities exam: Positive for: full ROM, normal capillary refill, normal inspection, pedal pulses present. Negative for: calf tenderness, joint swelling , pedal edema, tenderness - Neurological Exam Neurological exam: Alert, Oriented x3 - Psychiatric Exam Psychiatric exam: Normal Affect, Normal Mood - Skin Skin Exam: Dry, Intact, Warm Results - Vital Signs Recent Vital Signs: Last Vital Signs Temp 98.1 F 04/11/18 01:25 Pulse 66 04/11/18 05:53 Resp 18 04/11/18 05:53 BP 107/61 04/11/18 05:53 Pulse Ox 99 04/11/18 05:53 - Labs Result Diagrams: 04/11/18 02:15 04/11/18 02:15 - EKG Data EKG shows normal: Sinus rhythm Assessment & Plan - Assessment and Plan (Free Text) Assessment: 63 year old male with a past medical history significant for HTN, diastolic CHF , Atrial Fibrillation s/p cardioversion, CKD stage 3B, non-alcoholic liver cirrhosis of unclear etiology, hepatic encephalopathy, chronic ascites, esophageal varices s/p banding, and GERD who presented with three days of nausea , vomiting, hematemesis, dysphagia, blood tinged stools and intermittent SOB. Plan: 1. Hematemesis -VS and H/H stable at this time -Protonix 40mg IVP Q12 -NPO Diet -Serial CBC's Q6H for 24 hours to trend H/H -Holding PO medications to avoid stimulating gut motility -GI consulted, all recommendations appreciated 2. Right Pleural Effusion -Chest X-ray and CT Abdomen/Pelvis showing right sided pleural effusion -Abdominal and Pleural Effusion U/S pending -Will consider therapeutic thoracocentesis and/or paracentesis pending results 3. KEYUR -Creatinine elevated from baseline at 2.3 -1L IV fluid hydration provided in ED with response in BP -Continue to monitor with daily CMP's -Hold all nephrotoxic agents GI Prophylaxis: Protonix IVP DVT Prophylaxis: SCD's Patient seen and case discussed with attending, Dr. Coleman. Vielka PGY1 - Date & Time Date: 04/11/18 Time: 06:09 <Gary Coleman Q - Last Filed: 04/11/18 06:59> Results - Vital Signs Recent Vital Signs: Last Vital Signs Temp 98.1 F 04/11/18 01:25 Pulse 66 04/11/18 06:23 Resp 18 04/11/18 06:23 BP 107/61 04/11/18 06:23 Pulse Ox 99 04/11/18 06:23 - Labs Result Diagrams: 04/11/18 02:15 04/11/18 02:15 Attending/Attestation - Attestation I have personally seen and examined this patient.: Yes I have fully participated in the care of the patient.: Yes I have reviewed all pertinent clinical information: Yes
--- NOTE | 2018-04-11 08:33 | RAD ---
HISTORY: gi bleed COMPARISON: 03/24/2018 FINDINGS: LUNGS: Interval increased right inferior hemithoracic opacity -increasing right pleural effusion with increasing compressive passive atelectasis and or infiltrate here suspect. No left lung consolidation. No left gross pleural effusion. Asymmetric right pulmonary venous congestion apparent PLEURA: Interval increase right pleural effusion. No pneumothorax CARDIOVASCULAR: Mild cardiomegaly OSSEOUS STRUCTURES: No fracture seen. Each lateral and inferior scapular border appears sclerotic VISUALIZED UPPER ABDOMEN: Normal. OTHER FINDINGS: None. IMPRESSION: Interval increase right pleural effusion with inferred increasing right passive compressive atelectasis and/or right basal infiltrate. Increased right sided pulmonary venous congestion -some possible vague coalescing areas of pulmonary edema -right upper lobe Bilateral scapular sclerosis inferolateral aspects -normal variant versus pagetoid changes.
[2018-04-11 08:38] LABS: BASO # 0.08 K/mm3 (0.0-2.0); BASO % 1.1 % (0.0-3.0); EOS # 3.1 (0.0-0.7); EOS % 43.2 % (1.5-5.0); GRAN # 2.15 (1.4-6.5); GRAN % 29.7 % (50.0-68.0); HEMOGLOBIN 10.1 g/dL (14.0-18.0); LYMPH # 1.1 (1.2-3.4); LYMPH % 15.2 % (22.0-35.0); MEAN CELL VOLUME 98.3 fl (80.0-105.0); MEAN CORPUSCULAR HEMOGLOBIN 33.6 pg (25.0-35.0); MEAN CORPUSCULAR HGB CONC 34.1 g/dl (31.0-37.0); MEAN PLATELET VOLUME 9.1 fl (7.0-11.0); MONO # 0.8 (0.1-0.6); MONO % 10.8 % (1.0-6.0); RBC 3.01 10^6/uL (3.5-6.1); RED CELL DISTRIBUTION WIDTH 17.4 % (11.5-14.5); WHITE BLOOD COUNT 7.2 10^3/ul (4.5-11.0)
--- NOTE | 2018-04-11 10:22 | CP.PCM.CON ---
<Steven Dixon - Last Filed: 04/11/18 12:04> History of Present Illness - History of Present Illness History of Present Illness: Steven Dixon Internal Medicine Resident- Consult Note for GI Subjective: CC: difficulty/pain with swallowing, nausea, vomiting, streaks blood in emesis HPI: Patient is a 63 year old male with a past medical history of decompensation cirrhosis, complicated by esophageal varices with prior hemorrhage s/p EVL, ascites with no hx of SBP, hepatic encephalopathy currently on lactulose and rifaximin , CAD s/p stent, Afib s/p cardioversion, HTN, GERD, CHF who was admitted for evaluation and treatment of dysphagia, nausea, vomiting, and intermittent SOB. Patient states symptoms began three days ago with no specific provoking event. Admits to experiencing difficulty swallowing and pain with swallowing whilst ingesting soft solids and liquids. States that he feels like there is a golf ball stuck in his throat. Also admits to nausea with 3 bouts of emesis with scant amount of red blood. It is important to note that the patient was evaluated at [facility]. He was advised to gain 30 pounds prior to be being eligible for liver transplant. Also underwent a therapeutic paracentesis within the last 3 weeks at [facility] during which time 8 L of fluid was removed. Denies bright red blood per rectum and black/maroon colored stools. Denies fever , chills, chest pain,constipation, and urinary symptoms. PMHx: HTN, GERD, Non-alcoholic liver cirrhosis, ascites, CHF, afib s/p cardioversion and esophageal varices PSHx: Inguinal hernia repair Social History: Denies alcohol, drug used; Former smoker, quit 1.5 years ago Family History: Mother - DM, heart disease; Father - [place] Allergies: Beef products, banana Home Medications: As per JAN PMD: Dr. Bishop Physical Examination: - Constitutional Appears: Non-toxic, No Acute Distress - Head Exam Head Exam: ATRAUMATIC, NORMOCEPHALIC - Eye Exam Eye Exam: EOMI - ENT Exam ENT Exam: Mucous Membranes Dry - Neck Exam Neck exam: Positive for: Full Rom, Normal Inspection. Negative for: Lymphadenopathy, Meningismus, Tenderness, Thyromegaly - Respiratory Exam Respiratory Exam: Decreased Breath Sounds right lower lobe, NORMAL BREATHING PATTERN. absent: Accessory Muscle Use - Cardiovascular Exam Cardiovascular Exam: +S1, +S2. - GI/Abdominal Exam GI & Abdominal Exam: Distended, Normal Bowel Sounds, Soft, Positive Fluid Wave, Tender to palpation diffusely, organomegaly; absent: Bruit, Diminished Bowel Sounds, Firm, Guarding, Rebound Tenderness - Extremities Exam Extremities exam: Positive for: full ROM, normal capillary refill, normal inspection, pedal pulses present. Negative for: calf tenderness, joint swelling , pedal edema, tenderness - Neurological Exam Neurological exam: Alert, Oriented x3 - Psychiatric Exam Psychiatric exam: Normal Affect, Normal Mood - Skin Skin Exam: Dry, Intact, Warm Assessment and Plan: Patient is a 63 year old male with a past medical history significant for HTN, diastolic CHF, Atrial Fibrillation s/p cardioversion, CKD stage 3B, non- alcoholic liver cirrhosis of unclear etiology, hepatic encephalopathy, chronic ascites, esophageal varices s/p banding, and GERD who was admitted for evaluation and treatment of nausea, vomiting, hematemesis, dysphagia, blood tinged stools and intermittent SOB. CT of abdomen/pelvis 04/11/18 without contrast revealed cirrhosis with portal hypertension, a large amount of free fluid within abdomen and pelvis, no free air, a right pleural effusion with compressive atelectasis. EGD from 09/2017 revealed esophageal varices extending from the distal to upper esophagus with stigmata of hemorrhage and patient underwent bands x 9. Abdominal Pain Nausea/Vomitting Hematemesis Decompensated cirrhosis Ascites with no hx of SBP Hx of esophageal varices Hx of hepatic encephalopathy - H/H stable - no acute GI endoscopic intervention required - elective upper endoscopy recommended - continue lactulose, rifaxamin, goal- 2-3BM daily - consider IR for diagnostic and therapeutic tap pending patient's clinical course - recommend clear liquid, low sodium diet, advance as tolerated - follow-up with [facility] and Dr. Paige as an outpatient basis Thank you for the opportunity in participating in the care of this patient. Past Patient History - Infectious Disease Hx of Infectious Diseases: None - Tetanus Immunizations Tetanus Immunization: Unknown - Past Medical History & Family History Past Medical History?: Yes - Past Social History Smoking Status: Former Smoker - CARDIAC Hx Cardiac Disorders: Yes Hx Congestive Heart Failure: Yes Hx Hypertension: Yes - PULMONARY Hx Pneumonia: Yes - NEUROLOGICAL Hx Neurological Disorder: No - HEENT Hx HEENT Problems: No - RENAL Hx Renal Failure: Yes - ENDOCRINE/METABOLIC Hx Endocrine Disorders: No - HEMATOLOGICAL/ONCOLOGICAL Hx Blood Disorders: Yes Hx Cirrhosis: Yes (non-alcoholic) - INTEGUMENTARY Hx Dermatological Problems: No - MUSCULOSKELETAL/RHEUMATOLOGICAL Hx Back Pain: Yes Hx Falls: Yes - GASTROINTESTINAL Hx Gastrointestinal Disorders: Yes Hx Liver Failure: Yes - GENITOURINARY/GYNECOLOGICAL Hx Genitourinary Disorders: No - PSYCHIATRIC Hx Anxiety: Yes Hx Depression: Yes Hx Substance Use: No - SURGICAL HISTORY Hx Cardiac Catheterization: Yes Hx Coronary Stent: Yes - ANESTHESIA Hx Anesthesia: Yes Hx Anesthesia Reactions: No Hx Malignant Hyperthermia: No Meds Allergies/Adverse Reactions: Allergies Allergy/AdvReac Type Severity Reaction Status Date / Time Beef Containing Products Allergy Severe ANAPHYLAXIS Verified 03/24/18 02:37 beef derived (bovine) Allergy Severe ANAPHYLAXIS Verified 03/24/18 02:37 banana Allergy Intermediate ITCHING Verified 03/24/18 02:37 velcro Allergy ITCHING Uncoded 03/24/18 02:37 - Medications Medications: Current Medications Ondansetron HCl (Zofran Inj) 4 mg IVP Q6H PRN PRN Reason: Nausea/Vomiting Pantoprazole Sodium (Protonix Inj) 40 mg IVP Q12 BIBIANA Vitamin A (Vitamin A & D Oint Ud Foilpak) 1 ea TOP Q2 PRN PRN Reason: Dry mouth Results - Vital Signs Recent Vital Signs: Last Vital Signs Temp 98 F 04/11/18 08:16 Pulse 71 04/11/18 08:16 Resp 20 04/11/18 08:16 BP 112/58 L 04/11/18 08:16 Pulse Ox 98 04/11/18 08:16 - Labs Result Diagrams: 04/11/18 08:30 04/11/18 02:15 Labs: Laboratory Results - last 24 hr 04/11/18 08:30 WBC 7.2 RBC 3.01 L Hgb 10.1 L Hct 29.6 L MCV 98.3 MCH 33.6 MCHC 34.1 RDW 17.4 H Plt Count 100 L MPV 9.1 Gran % 29.7 L Lymph % (Auto) 15.2 L [place] % (Auto) 10.8 H Eos % (Auto) 43.2 H Baso % (Auto) 1.1 Gran # 2.15 Lymph # (Auto) 1.1 L [place] # (Auto) 0.8 H Eos # (Auto) 3.1 H Baso # (Auto) 0.08 <Pedro Paige - Last Filed: 04/11/18 13:29> Meds - Medications Medications: Current Medications Albumin Human (Albumin Human 25% (12.5 Gm/50 Ml)) 12.5 gm IV Q5H BIB[place]NA Stop: 04/12/18 09:01 Ondansetron HCl (Zofran Inj) 4 mg IVP Q6H PRN PRN Reason: Nausea/Vomiting Last Admin: 04/11/18 13:17 Dose: 4 mg Pantoprazole Sodium (Protonix Inj) 40 mg IVP Q12 BIB[place]NA Last Admin: 04/11/18 11:35 Dose: 40 mg Vitamin A (Vitamin A & D Oint Ud Foilpak) 1 ea TOP Q2 PRN PRN Reason: Dry mouth Results - Vital Signs Recent Vital Signs: Last Vital Signs Temp 98 F 04/11/18 08:16 Pulse 71 04/11/18 08:16 Resp 20 04/11/18 08:16 BP 112/58 L 04/11/18 08:16 Pulse Ox 98 04/11/18 08:16 - Labs Result Diagrams: 04/11/18 08:30 04/11/18 02:15 Labs: Laboratory Results - last 24 hr 04/11/18 04/11/18 08:30 13:00 WBC 7.2 RBC 3.01 L Hgb 10.1 L Hct 29.6 L MCV 98.3 MCH 33.6 MCHC 34.1 RDW 17.4 H Plt Count 100 L MPV 9.1 Gran % 29.7 L Lymph % (Auto) 15.2 L [place] % (Auto) 10.8 H Eos % (Auto) 43.2 H Baso % (Auto) 1.1 Gran # 2.15 Lymph # (Auto) 1.1 L [place] # (Auto) 0.8 H Eos # (Auto) 3.1 H Baso # (Auto) 0.08 Urine Color Yellow Urine Appearance Clear Urine pH 5.5 Ur Specific [place] 1.025 Urine Protein Trace H Urine Glucose (UA) Negative Urine Ketones Negative Urine Blood Negative Urine Nitrate Negative Urine Bilirubin Negative Urine Urobilinogen 0.2 Ur Leukocyte Esterase Negative Urine RBC Negative Urine WBC Negative Hyaline Casts 0 - 2 Attending/Attestation - Attestation I have personally seen and examined this patient.: Yes I have fully participated in the care of the patient.: Yes I have reviewed all pertinent clinical information: Yes Notes (Text): 04/11/18 13:26 63 year old male with h/o decompensated cirrhosis who presents with dysphagia. Uncertain etiology. Recommend Speech / swallow eval. [facility] Consider EGD if no improvement, though recent EGD was negative for any cause last november.
--- NOTE | 2018-04-11 10:33 | CARD ---
APPROVED REPORT EKG Measurement Heart [id number] <Conclusion> Normal sinus rhythm Left axis deviation Pulmonary disease pattern Abnormal ECG
--- NOTE | 2018-04-11 11:08 | US ---
PROCEDURE: HISTORY: Pleural effusion COMPARISON: None TECHNIQUE: Real-time scanning adds the right lung base and right upper abdomen was performed FINDINGS: Moderate-large a pleural effusion and moderate -large right ascites noted. No left pleural effusion appreciated IMPRESSION: Right pleural effusion. Right ascites No left pleural effusion
[2018-04-11] MEDS ORDERED: Albumin Human 25% (12.5 gm/50 ml) IV SCH ×2 (12:45→13:00)
[2018-04-11 13:15] LABS: PH,URINE 5.5 (4.7-8.0); URINE BILIRUBIN NEGATIVE (NEGATIVE); URINE BLOOD NEGATIVE (NEGATIVE); URINE GLUCOSE (UA) NEGATIVE (NEGATIVE); URINE LEUKOCYTE ESTERASE NEGATIVE Leu/uL (NEGATIVE); URINE PROTEIN TRACE mg/dL (<30 mg/dL); URINE UROBILINOGEN 0.2 E.U./dL (<1 E.U./dL)
[2018-04-11 13:17] LABS: URINE APPEARANCE CLEAR (CLEAR); URINE COLOR YELLOW (YELLOW)
[2018-04-11 13:23] LABS: URINE HYALINE CAST 0 - 2 /hpf; URINE RBC NEGATIVE /hpf (0-2); URINE WBC NEGATIVE /hpf (0-6)
[2018-04-11 13:28] LABS: CREATININE,RANDOM URINE 112 mg/dL
[2018-04-11] MEDS: Albumin Human 25% (12.5 gm/50 ml) IV SCH ×5 (15:34→20:54)
[2018-04-11 16:20] LABS: BASO # 0.08 K/mm3 (0.0-2.0); BASO % 1.1 % (0.0-3.0); EOS # 3.1 (0.0-0.7); EOS % 43.8 % (1.5-5.0); GRAN # 1.87 (1.4-6.5); GRAN % 26.8 % (50.0-68.0); HEMOGLOBIN 10.5 g/dL (14.0-18.0); LYMPH # 1.3 (1.2-3.4); LYMPH % 18.8 % (22.0-35.0); MEAN CELL VOLUME 99.7 fl (80.0-105.0); MEAN CORPUSCULAR HGB CONC 34.1 g/dl (31.0-37.0); MEAN PLATELET VOLUME 9.6 fl (7.0-11.0); MONO # 0.7 (0.1-0.6); MONO % 9.5 % (1.0-6.0); RBC 3.09 10^6/uL (3.5-6.1); RED CELL DISTRIBUTION WIDTH 17.7 % (11.5-14.5)
[2018-04-11 17:34] LABS: BODY FLUID TYPE PERITONEAL/ASCITES
[2018-04-11 17:51] LABS: BODY FLUID RBC 40.7 /uL (0.0-0.0); BODY FLUID WBC 45.1 /uL (0.0-300.0)
[2018-04-11 17:52] LABS: BF GROSS APPEARANCE CLEAR (CLEAR); BODY FLUID TOTAL COUNT 100 (0-0)
[2018-04-11 18:05] VITALS: BMI 15.9
--- NOTE | 2018-04-11 19:15 | US ---
PROCEDURE: Ultrasound guided paracentesis. HISTORY: Cryptogenic cirrhosis. Recurrent abdominal ascites with pain and distension. Needs paracentesis P PHYSICIAN(S): Franko Crespo MD. TECHNIQUE: The relative risks and indications for the procedure were explained to the patient and informed written consent obtained. Sonography of the abdomen was performed in a supine position. This revealed a moderate to large amount of non-loculated ascites, greatest in the right lower quadrant. A puncture site was selected and the area was prepped and draped in the usual sterile fashion. 1% Xylocaine was used to anesthetize the skin and soft tissues. A 7 Bulgarian paracentesis catheter was trocared into the right lower quadrantand 6500 cc of clear straw-colored fluid aspirated. The appropriate labs were sent IMPRESSION: Ultrasound-guided paracentesis in the right lower quadrant. 6500 cc of fluid were aspirated. Labs were sent
[2018-04-11 20:02] LABS: BASO # 0.04 K/mm3 (0.0-2.0); BASO % 0.8 % (0.0-3.0); EOS # 2.2 (0.0-0.7); EOS % 42.3 % (1.5-5.0); GRAN # 1.56 (1.4-6.5); GRAN % 29.7 % (50.0-68.0); HEMOGLOBIN 10.1 g/dL (14.0-18.0); LYMPH # 1.1 (1.2-3.4); LYMPH % 20.7 % (22.0-35.0); MEAN CELL VOLUME 100.3 fl (80.0-105.0); MEAN CORPUSCULAR HEMOGLOBIN 33.8 pg (25.0-35.0); MEAN CORPUSCULAR HGB CONC 33.7 g/dl (31.0-37.0); MEAN PLATELET VOLUME 10.1 fl (7.0-11.0); MONO # 0.3 (0.1-0.6); MONO % 6.5 % (1.0-6.0); RBC 2.99 10^6/uL (3.5-6.1); RED CELL DISTRIBUTION WIDTH 17.5 % (11.5-14.5); WHITE BLOOD COUNT 5.2 10^3/ul (4.5-11.0)
[2018-04-11] MEDS ORDERED: Meropenem 500 MG in Sodium Chloride 0.9% 50 ML IVPB SCH (22:00)
[2018-04-12] MEDS: Albumin Human 25% (12.5 gm/50 ml) IV SCH ×3 (01:03→14:04)
[2018-04-12] MEDS ORDERED: Morphine 4 mg/ml ISec IVP ONE (01:21)
--- NOTE | 2018-04-12 01:47 | CON ---
DATE: 04/11/2018 NEPHROLOGY CONSULTATION HISTORY OF PRESENT ILLNESS: A 63-year-old male with past medical history of hypertension, CHF with preserved EF, AFib, status post cardioversion, liver cirrhosis of unclear etiology, status post esophageal varices banding, and CKD stage IIIA, presented with 3 days of vomiting and dysphagia/odynophagia; Nephrology being consulted for acute renal failure. Patient was just admitted earlier this month to [facility] [place] after a fall; was treated for possible pneumonia; patient was subsequently transferred to [facility], due to liver cirrhosis and need for liver transplantation evaluation. Patient reportedly stayed there for several weeks before being discharged just about a week ago; the patient reports having paracentesis done at that time. He, otherwise, was discharged on decreased diuretic with only Lasix 20 mg daily; patient reports developing symptoms of odynophagia and dysphagia and vomiting a few minutes after consuming any p.o. intake; he otherwise denies any diarrhea; patient denies any dizziness or lightheadedness; has been ambulating with a walker. PAST MEDICAL HISTORY: As above. SOCIAL HISTORY: Former smoker. FAMILY HISTORY: Mother, diabetes. Father, heart disease. REVIEW OF SYSTEMS: CONSTITUTIONAL: Has not been able to gain weight which is being required of him for liver transplantation. HEENT: As per HPI. RESPIRATORY: Reports some dyspnea on exertion. Also with cough. CARDIOVASCULAR: Denies any chest pain or palpitations. GASTROINTESTINAL: As per HPI. GENITOURINARY: Denies any change in urination. No dysuria. MUSCULOSKELETAL: Reporting some back pain, not using any NSAIDs. NEUROLOGICAL: Denies any weakness in his legs. PSYCHIATRIC: Has been on antianxiety medication. PHYSICAL EXAMINATION: VITAL SIGNS: This morning, blood pressure 112/58, heart rate 71, respirations 20, temperature 98, O2 sat 98% on room air. GENERAL: In no distress. Conversing coherently in full sentences. HEENT: Moist mucous membranes. Nonicteric. No cervical lymphadenopathy. RESPIRATORY: Lungs are clear to auscultation although decreased sounds on right. No rhonchi, no wheezes, no rales. CARDIOVASCULAR: Heart sounds S1, S2 normal. No murmurs or gallops or rubs. GASTROINTESTINAL: Abdomen soft, nontender, nondistended. GENITOURINARY: No bladder distention. EXTREMITIES: No leg edema. SKIN: Warm. No cyanosis. NEUROLOGICAL: No asterixis present. SKIN: Warm. No cyanosis. PSYCHIATRIC: Normal mood, normal affect. LABORATORY DATA: This morning CBC: WBC 7.2, hemoglobin 10.1, hematocrit 29.6, platelets 100. Chemistry panel: Sodium 142; potassium 3.7; chloride 100; bicarb 27; BUN 48; creatinine 2.3, increased from baseline of 1.3 last month; glucose 109, calcium, 9. T-bili is 2.3, AST 93, ALT 48, alk phos 475, albumin 3.7. Urine studies: Specific gravity 1.025, trace protein, urine lytes, urine sodium 31, creatinine 112, FENa calculated as 0.4%. Coags: PT 16.9, PTT 34.6, INR 1.47. Abdominal CT showing large amount of ascites. Chest x-ray showing right pleural effusion. ASSESSMENT AND PLAN: 1. Acute kidney injury on chronic kidney disease, stage IIIA, likely prerenal etiology in the setting of vomiting and decreased p.o. intake while being on diuretics (although decreased dose). Despite presence of large effusion, large ascites, and pleural effusion, patient is likely intravascularly is volume depleted. Received 1 liter saline in the ED. We will continue volume repletion with IV albumin 25% one gram per kilogram over the next 24 hours. Need to avoid nephrotoxic agents as well as nonsteroidal antiinflammatory drugs due to their capacity to impede renal autoregulation. If no improvement in renal function, need to consider hepatorenal etiology. 2. Congestive heart failure with preserved ejection fraction. Patient needs to be on standing diuretics, long term care social worker. Unclear why he was discharged on such a low dose of diuretics; nevertheless, we will hold for now. 3. Abdominal ascites. Patient is status post 6.5 liters' paracentesis drainage this evening; need to replenish with IV albumin; 6 g per liter removed in order to prevent further intravascular volume depletion. Thank you for this referral. We will be following up closely. Wood De Oliveira MD
--- NOTE | 2018-04-12 05:41 | CON ---
DATE: 04/11/2018 LOCATION: The patient is seen earlier today in 563, bed 2. CHIEF COMPLAINT: Abdominal pain times several days. HISTORY OF PRESENT ILLNESS: This is a 63-year-old male who is known to me from previous admission with the history of renal disease, history of TRUJILLO, history of atrial fibrillation, moderate aortic stenosis, mild tricuspid regurgitation with diastolic congestive heart failure, ejection fraction of 45% to 50%, history of cirrhosis and ascites on recent hospitalization, history of upper GI bleed, variceal bleeding and who is admitted on this admission with abdominal pain, nausea and vomiting, vomiting blood and hematemesis. PAST MEDICAL HISTORY: Significant for decompensation cirrhosis. Significant for hypertension, GERD, nonalcoholic liver cirrhosis, TRUJILLO, ascites, diastolic congestive heart failure, atrial fibrillation and esophageal varices. REVIEW OF SYSTEMS: Reveals the patient has a low-grade fever. No chills. No chest pain. No dysuria or frequency. No headaches or blurred vision. Twelve-point review systems is performed. PAST SURGICAL HISTORY: Significant for inguinal hernia repair. ALLERGIES: PATIENT IS ALLERGIC TO BEEF PRODUCTS AND BANANA. MEDICATIONS: Reviewed. PHYSICAL EXAMINATION: VITAL SIGNS: Patient's temperature is 98, blood pressure is 107/60, it was down to 92/60, pulse of 66 and respiratory rate of 18. HEENT: Unremarkable. NECK: Supple. LUNGS: Have decreased breath sounds. HEART: Normal S1, S2. ABDOMEN: Mild tenderness but no rebound or guarding. No masses. LABORATORY EXAMINATION: Reveals a white count of 8, hemoglobin of 10, platelets of 125. Coagulation is noted and the patient has 31% eosinophils on the white count. The patient had a coagulation of INR of 1.47. Chemistries reveal a BUN of 48, creatinine is 2.3, in the recent admission, creatinine was 1.5. AST is 93, alk phos is 475, procalcitonin is 0.37. Urinalysis is noted and microbiology is pending. Patient also had a CAT scan of the abdomen and pelvis, which reveals cirrhosis with portal hypertension, right pleural effusion, comprehensive atelectasis. Chest x-ray reveals an increased right pleural effusion, increased right comprehensive atelectasis. On ultrasound a pleural effusion is noted; right pleural effusion, right ascites is noted. Patient also had a HIV test. HIV is negative as of 08/2017. ASSESSMENT AND PLAN: A 63-year-old male with renal disease, nonalcoholic steatohepatitis, atrial fibrillation, moderate aortic stenosis, moderate tricuspid regurgitation, cirrhosis, ascites, recent hospitalization, now is admitted with abdominal pain, hematemesis, cirrhosis with portal hypertension, must rule out spontaneous bacterial peritonitis. We will start the patient on meropenem, pending clemens culture. Should have ascitic fluid evaluation and will make further recommendations based on the culture results. We will follow closely with you. We will adjust the meropenem at 500 mg every 12 hours for the patient with acute kidney injury. Creatinine has changed from 1.5 to 2.3 in this patient with abdominal pain. We will follow closely with you. Bravo Christensen MD
[2018-04-12 06:54] LABS: BASO # 0.07 K/mm3 (0.0-2.0); HEMOGLOBIN 9.6 g/dL (14.0-18.0); MEAN CELL VOLUME 98.6 fl (80.0-105.0); MEAN CORPUSCULAR HEMOGLOBIN 33.6 pg (25.0-35.0); MEAN PLATELET VOLUME 9.8 fl (7.0-11.0); MONO # 0.5 (0.1-0.6); MONO % 6.9 % (1.0-6.0); PLATELET COUNT 94 10^3/uL (120.0-450.0); RBC 2.86 10^6/uL (3.5-6.1); RED CELL DISTRIBUTION WIDTH 17.3 % (11.5-14.5); WHITE BLOOD COUNT 6.8 10^3/ul (4.5-11.0)
[2018-04-12 07:03] LABS: IRON 60 ug/dL (45-180)
[2018-04-12 07:12] LABS: % IRON SATURATION 35 % (20-55); TOTAL IRON BINDING CAPACITY 170 ug/dL (261-462)
[2018-04-12 07:49] LABS: ALBUMIN 3.6 g/dL (3.0-4.8); CALCIUM 8.5 mg/dL (8.4-10.5)
--- NOTE | 2018-04-12 07:49 | CP.PCM.PN ---
<Steven Dixon - Last Filed: 04/12/18 12:44> Subjective - Date & Time of Evaluation Date of Evaluation: 04/12/18 Time of Evaluation: 07:30 - Subjective Subjective: Subjective: Patient seen and examined at bedside. No acute overnight events. Admits to baseline pain while swallowing liquids and a sensation of the liquids being stuck in his throat. Admits to dry heaving however denies emesis/bleeding. Further denies overt abdominal pain, blood per rectum, and dark stools. Physical Examination: - Constitutional Appears: Non-toxic, No Acute Distress - Head Exam Head Exam: ATRAUMATIC, NORMOCEPHALIC - Eye Exam Eye Exam: EOMI - ENT Exam ENT Exam: Mucous Membranes Dry - Neck Exam Neck exam: Positive for: Full Rom, Normal Inspection. Negative for: Lymphadenopathy, Meningismus, Tenderness, Thyromegaly - Respiratory Exam Respiratory Exam: Decreased Breath Sounds right lower lobe, NORMAL BREATHING PATTERN. absent: Accessory Muscle Use - Cardiovascular Exam Cardiovascular Exam: +S1, +S2. - GI/Abdominal Exam GI & Abdominal Exam: Normal Bowel Sounds, Soft, Tender to palpation diffusely, organomegaly; absent: Bruit, Diminished Bowel Sounds, Firm, Guarding, Rebound Tenderness, fluid wave - Extremities Exam Extremities exam: Positive for: full ROM, normal capillary refill, normal inspection, pedal pulses present. Negative for: calf tenderness, joint swelling , pedal edema, tenderness - Neurological Exam Neurological exam: Alert, Oriented x3 - Psychiatric Exam Psychiatric exam: Normal Affect, Normal Mood - Skin Skin Exam: Dry, Intact, Warm Assessment and Plan: Patient is a 63 year old male with a past medical history significant for HTN, diastolic CHF, Atrial Fibrillation s/p cardioversion, CKD stage 3B, non- alcoholic liver cirrhosis of unclear etiology, hepatic encephalopathy, chronic ascites, esophageal varices s/p banding, and GERD who was admitted for evaluation and treatment of nausea, vomiting, hematemesis, dysphagia, blood tinged stools and intermittent SOB. CT of abdomen/pelvis 04/11/18 without contrast revealed cirrhosis with portal hypertension, a large amount of free fluid within abdomen and pelvis, no free air, a right pleural effusion with compressive atelectasis. EGD from 09/2017 revealed esophageal varices extending from the distal to upper esophagus with stigmata of hemorrhage and patient underwent bands x 9. Patient is s/p paracentesis on 04/11/18 in which 6500 cc of clear fluid was removed. Dysphagia/Odynophagia Decompensated cirrhosis Ascites with no hx of SBP Hx of esophageal varices Hx of hepatic encephalopathy - H/H stable - barium swallow ordered and pending - endoscopic evaluation tentatively planned for 04/14/18 - patient started on octreotide - advance as tolerated puree, low sodium diet - c/w albumin, midodrine - discontinue ppi - abx as per ID Thank you for the opportunity in participating in the care of this patient. We will continue to follow with you. Patient seen, case reviewed with, and plan approved by attending physician, Dr. Hodgson. Objective - Vital Signs/Intake and Output Vital Signs (last 24 hours): Temp Pulse Resp BP Pulse Ox 97.6 F 69 18 99/62 L 95 04/12/18 06:00 04/12/18 06:00 04/12/18 06:00 04/12/18 06:00 04/12/18 06:00 Intake and Output: 04/12/18 04/12/18 06:59 18:59 Output Total 200 Balance -200 - Medications Medications: Current Medications Albumin Human (Albumin Human 25% (12.5 Gm/50 Ml)) 12.5 gm IV Q5H BIBIAAN Stop: 04/12/18 11:31 Last Admin: 04/12/18 05:36 Dose: 12.5 gm Ondansetron HCl (Zofran Inj) 4 mg IVP Q6H PRN PRN Reason: Nausea/Vomiting Last Admin: 04/11/18 13:17 Dose: 4 mg Pantoprazole Sodium (Protonix Inj) 40 mg IVP Q12 BIBIANA Last Admin: 04/11/18 22:05 Dose: 40 mg Vitamin A (Vitamin A & D Oint Ud Foilpak) 1 ea TOP Q2 PRN PRN Reason: Dry mouth - Labs Labs: 04/12/18 06:30 PT 16.9 SECONDS (9.4-12.5) H 04/11/18 02:15 INR 1.47 (0.93-1.08) H 04/11/18 02:15 APTT 34.6 Seconds (25.1-36.5) 04/11/18 02:15 <Megha Hodgson - Last Filed: 04/12/18 13:47> Objective - Vital Signs/Intake and Output Vital Signs (last 24 hours): Temp Pulse Resp BP Pulse Ox 97.6 F 69 18 99/62 L 95 04/12/18 06:00 04/12/18 06:00 04/12/18 06:00 04/12/18 06:00 04/12/18 06:00 Intake and Output: 04/12/18 04/12/18 06:59 18:59 Output Total 200 Balance -200 - Medications Medications: Current Medications Albumin Human (Albumin Human 5% (12.5 Gm/250 Ml)) 12.5 gm IV Q4H [facility] Stop: 04/13/18 00:01 Ascorbic Acid (Vitamin C 500 Mg Tab) 1,000 mg PO BID [facility] Last Admin: 04/12/18 10:59 Dose: 1,000 mg Cholecalciferol (Vitamin D) 2,000 intlu PO DAILY [facility] Last Admin: 04/12/18 10:59 Dose: 2,000 intlu Cyanocobalamin (Vitamin B12 1000 Mcg Tab) 1,000 mcg PO DAILY [facility] Last Admin: 04/12/18 10:59 Dose: 1,000 mcg Meropenem 250 mg/ Sodium (Chloride) 100 mls @ 100 mls/hr IVPB Q12H [facility] PRN Reason: Protocol Stop: 04/21/18 10:46 Last Admin: 04/12/18 11:28 Dose: 100 mls/hr Midodrine (Proamatine) 10 mg PO TID [facility] Last Admin: 04/12/18 10:59 Dose: 10 mg Octreotide Acetate (Sandostatin) 100 mcg SC TID [facility] Ondansetron HCl (Zofran Inj) 4 mg IVP Q6H PRN PRN Reason: Nausea/Vomiting Last Admin: 04/11/18 13:17 Dose: 4 mg Vitamin A (Vitamin A & D Oint Ud Foilpak) 1 ea TOP Q2 PRN PRN Reason: Dry mouth - Labs Labs: 04/12/18 06:30 04/12/18 06:30 PT 16.9 SECONDS (9.4-12.5) H 04/11/18 02:15 INR 1.47 (0.93-1.08) H 04/11/18 02:15 APTT 34.6 Seconds (25.1-36.5) 04/11/18 02:15 Attending/Attestation - Attestation I have personally seen and examined this patient.: Yes I have fully participated in the care of the patient.: Yes I have reviewed all pertinent clinical information, including history, physical exam and plan: Yes Notes (Text): 04/12/18 13:40 This is a 63 year old male with h/o decompensated cirrhosis with recent MELD 22 and azotemia on low dose diuretics at home. He now presents with dysphagia. Recommend Speech/swallow evaluation. If symptoms persist will schedule EGD- last EGD with 9 bands in Sep 2017. Due to increased Cr hold diuretics and continue albumin for 72 hours with octreotide tid SQ and midodrine po tid. Discontinue PPI due to ascites and high risk of SBP. Do trail of pureed diet 04/12/18 13:47
--- NOTE | 2018-04-12 08:49 | CP.PCM.PN ---
<Obie Velazquez - Last Filed: 04/12/18 10:57> Subjective - Date & Time of Evaluation Date of Evaluation: 04/12/18 Time of Evaluation: 06:00 - Subjective Subjective: Patient seen and evaluated bedside. No acute issues overnight. Patient states shortness of breath is improved today from yesterday, still complaining of discomfort when swallowing. Denies chest pain, nausea, vomiting, fever, chills or any other complaints. Objective - Vital Signs/Intake and Output Vital Signs (last 24 hours): Temp Pulse Resp BP Pulse Ox 97.6 F 69 18 99/62 L 95 04/12/18 06:00 04/12/18 06:00 04/12/18 06:00 04/12/18 06:00 04/12/18 06:00 Intake and Output: 04/12/18 04/12/18 06:59 18:59 Output Total 200 Balance -200 - Medications Medications: Current Medications Albumin Human (Albumin Human 25% (12.5 Gm/50 Ml)) 12.5 gm IV Q5H [facility] Stop: 04/12/18 11:31 Last Admin: 04/12/18 05:36 Dose: 12.5 gm Ondansetron HCl (Zofran Inj) 4 mg IVP Q6H PRN PRN Reason: Nausea/Vomiting Last Admin: 04/11/18 13:17 Dose: 4 mg Pantoprazole Sodium (Protonix Inj) 40 mg IVP Q12 [facility] Last Admin: 04/11/18 22:05 Dose: 40 mg Vitamin A (Vitamin A & D Oint Ud Foilpak) 1 ea TOP Q2 PRN PRN Reason: Dry mouth - Labs Labs: 04/12/18 06:30 04/12/18 06:30 PT 16.9 SECONDS (9.4-12.5) H 04/11/18 02:15 INR 1.47 (0.93-1.08) H 04/11/18 02:15 APTT 34.6 Seconds (25.1-36.5) 04/11/18 02:15 - Constitutional Appears: Non-toxic, No Acute Distress, Chronically Ill - Head Exam Head Exam: ATRAUMATIC, NORMAL INSPECTION, NORMOCEPHALIC - Eye Exam Eye Exam: Normal appearance - ENT Exam ENT Exam: Mucous Membranes Moist - Respiratory Exam Respiratory Exam: Decreased Breath Sounds, NORMAL BREATHING PATTERN - Cardiovascular Exam Cardiovascular Exam: REGULAR RHYTHM, +S1, +S2 - GI/Abdominal Exam GI & Abdominal Exam: Soft, Tenderness - Neurological Exam Neurological Exam: Alert, Awake, Oriented x3 Assessment and Plan - Assessment and Plan (Free Text) Assessment: 63 year old male with a past medical history significant for HTN, diastolic CHF , Atrial Fibrillation s/p cardioversion, CKD stage 3B, non-alcoholic liver cirrhosis of unclear etiology, hepatic encephalopathy, chronic ascites, esophageal varices s/p banding, and GERD who presented with three days of nausea , vomiting, hematemesis, dysphagia, blood tinged stools and intermittent SOB. Plan: 1. Dysphagia with Hematemesis -no episoodes of hematemesis in past 24 hours -VS and H/H stable at this time -Protonix 40mg IVP Q12 -liquid diet -monitor H/H -resume home PO meds -GI consulted, all recommendations appreciated -possible barrium swallow 2. Right Pleural Effusion -Chest X-ray showing right sided pleural effusion -CT abdomen/pelvis: 1. Cirrhosis with portal hypertension. 2. Right pleural effusion with compressive atelectasis. Superimposed pneumonia not excluded. -patient had 6.[address] Crespo paracentesis -paracentesis : WBC: 45 Neurophils: 13.2 -ID consulted, follow recs -procalcitonin .37 3. KEYUR -Creatinine elevated from baseline at 2.3 -Continue to monitor with daily CMP's -Hold all nephrotoxic agents -nephro, consulted, Mughni follow recs -IV albumin per nephro -hold diuretics GI Prophylaxis: Protonix IVP DVT Prophylaxis: SCD's Patient was unable yesterday to participate in speech and swallow evaluation, will asses again today <Otto Mccloud - Last Filed: 04/12/18 13:21> Objective - Vital Signs/Intake and Output Vital Signs (last 24 hours): Temp Pulse Resp BP Pulse Ox 97.6 F 69 18 99/62 L 95 04/12/18 06:00 04/12/18 06:00 04/12/18 06:00 04/12/18 06:00 04/12/18 06:00 Intake and Output: 04/12/18 04/12/18 06:59 18:59 Output Total 200 Balance -200 - Medications Medications: Current Medications Albumin Human (Albumin Human 5% (12.5 Gm/250 Ml)) 12.5 gm IV Q4H [facility] Stop: 04/13/18 00:01 Ascorbic Acid (Vitamin C 500 Mg Tab) 1,000 mg PO BID [facility] Last Admin: 04/12/18 10:59 Dose: 1,000 mg Cholecalciferol (Vitamin D) 2,000 intlu PO DAILY [facility] Last Admin: 04/12/18 10:59 Dose: 2,000 intlu Cyanocobalamin (Vitamin B12 1000 Mcg Tab) 1,000 mcg PO DAILY [facility] Last Admin: 04/12/18 10:59 Dose: 1,000 mcg Meropenem 250 mg/ Sodium (Chloride) 100 mls @ 100 mls/hr IVPB Q12H [facility] PRN Reason: Protocol Stop: 04/21/18 10:46 Last Admin: 04/12/18 11:28 Dose: 100 mls/hr Midodrine (Proamatine) 10 mg PO TID [facility] Last Admin: 04/12/18 10:59 Dose: 10 mg Octreotide Acetate (Sandostatin) 100 mcg SC TID [facility] Ondansetron HCl (Zofran Inj) 4 mg IVP Q6H PRN PRN Reason: Nausea/Vomiting Last Admin: 04/11/18 13:17 Dose: 4 mg Vitamin A (Vitamin A & D Oint Ud Foilpak) 1 ea TOP Q2 PRN PRN Reason: Dry mouth - Labs Labs: 04/12/18 06:30 04/12/18 06:30 PT 16.9 SECONDS (9.4-12.5) H 04/11/18 02:15 INR 1.47 (0.93-1.08) H 04/11/18 02:15 APTT 34.6 Seconds (25.1-36.5) 04/11/18 02:15 Attending/Attestation - Attestation I have personally seen and examined this patient.: Yes I have fully participated in the care of the patient.: Yes I have reviewed all pertinent clinical information, including history, physical exam and plan: Yes Notes (Text): 04/12/18 13:07 63 year old male with past medical history of hypertension, afib s/p cardioversion, CKD, non-alcoholic liver cirrhosis, ascites, and esophageal varices s/p banding who presented with complaint of abdominal hematemesis, dysphagia, abdominal distention and dyspnea. CT abd/pelvis showed large ascites and moderate right pleural effusion. He was seen by IR and is s/p paracentesis yesterday. He is on albumin and midodrine. Nephrology is also following for acute on chronic renal failure. GI and speech/swallow are following for dysphagia. Modified barium study was ordered and pending. Otto Mccloud MD Hospitalist.
[2018-04-12 10:20] LABS: BASOPHIL 1 % (0.0-1.0); EOSINOPHIL 51 % (0.0-3.0); LYMPHOCYTE 12 % (22.0-35.0); MONOCYTE 7 % (1.0-6.0); NEUTROPHIL 29 % (50.0-70.0)
[2018-04-12] MEDS: Cholecalciferol 1,000 INTLU TAB PO SCH (10:59)
[2018-04-12] MEDS ORDERED: Albumin Human 5% (12.5 gm/250 ml) IV SCH (12:00)
--- NOTE | 2018-04-12 16:03 | PN ---
DATE: 04/12/2018 SUBJECTIVE: Patient is in bed, in no acute distress, nontoxic. PHYSICAL EXAMINATION: VITAL SIGNS: Temperature is 97, blood pressure is , heart rate of 90. HEENT: Examination is unremarkable. NECK: Supple. LUNGS: Have decreased breath sounds. HEART: Normal S1 and S2. ABDOMEN: Soft, nontender. LABORATORY DATA: Reveals the patient's white count is 6.8, , platelets of 94. Chemistries reveal BUN of , creatinine of 2.3, procalcitonin 0.37. Microbiology is pending. ASSESSMENT AND PLAN: This is a 63 years old with renal disease, nonalcoholic steatohepatitis, TRUJILLO, atrial fibrillation, moderate aortic stenosis, moderate tricuspid regurgitation, cirrhosis of the liver, ascites, recent hospitalization, now is admitted with abdominal pain hematemesis, cirrhosis with portal hypertension, must rule out spontaneous bacterial peritonitis, currently on meropenem and Dr. Velazquez's note is reviewed from today. Peritoneal fluid and ascitic fluid shows 13 neutrophils, 86 leukocytes. We will check on Gram stain and cultures. Continue the meropenem at this time. Overall prognosis is quite poor for this chronically ill, cachectic patient with a BMI around . Meropenem was discontinued by pharmacy; we will restart the meropenem again. We will follow closely with you initial Gram stain culture results . Bravo Christensen MD
[2018-04-12 16:50] LABS: URINE 24 HOUR SODIUM 7.2 meq/24HR (43-217)
[2018-04-12] MEDS: Albumin Human 5% (12.5 gm/250 ml) IV SCH ×2 (18:17→23:41)
--- NOTE | 2018-04-12 19:33 | CP.PCM.PN ---
Subjective - Date & Time of Evaluation Date of Evaluation: 04/12/18 Time of Evaluation: 12:00 - Subjective Subjective: Patient reports urinating usual amount; ambulating to bathroom; tolerating liquid diet, dysphagia somewhat improved; Objective - Vital Signs/Intake and Output Vital Signs (last 24 hours): Temp Pulse Resp BP Pulse Ox 97.9 F 62 18 96/53 L 100 04/12/18 14:00 04/12/18 14:00 04/12/18 14:00 04/12/18 14:00 04/12/18 14:00 Intake and Output: 04/12/18 04/13/18 18:59 06:59 Intake Total 240 Output Total 300 Balance -60 - Medications Medications: Current Medications Albumin Human (Albumin Human 5% (12.5 Gm/250 Ml)) 12.5 gm IV Q4H [facility] Stop: 04/13/18 07:01 Last Admin: 04/12/18 18:17 Dose: 12.5 gm Ascorbic Acid (Vitamin C 500 Mg Tab) 1,000 mg PO BID [facility] Last Admin: 04/12/18 18:17 Dose: 1,000 mg Cholecalciferol (Vitamin D) 2,000 intlu PO DAILY [facility] Last Admin: 04/12/18 10:59 Dose: 2,000 intlu Cyanocobalamin (Vitamin B12 1000 Mcg Tab) 1,000 mcg PO DAILY [facility] Last Admin: 04/12/18 10:59 Dose: 1,000 mcg Meropenem 250 mg/ Sodium (Chloride) 100 mls @ 100 mls/hr IVPB Q12H [facility] PRN Reason: Protocol Stop: 04/21/18 10:46 Last Admin: 04/12/18 11:28 Dose: 100 mls/hr Midodrine (Proamatine) 10 mg PO TID [facility] Last Admin: 04/12/18 18:16 Dose: 10 mg Octreotide Acetate (Sandostatin) 100 mcg SC TID [facility] Last Admin: 04/12/18 19:04 Dose: 100 mcg Ondansetron HCl (Zofran Inj) 4 mg IVP Q6H PRN PRN Reason: Nausea/Vomiting Last Admin: 04/11/18 13:17 Dose: 4 mg Vitamin A (Vitamin A & D Oint Ud Foilpak) 1 ea TOP Q2 PRN PRN Reason: Dry mouth - Labs Labs: 04/12/18 06:30 04/12/18 06:30 PT 16.9 SECONDS (9.4-12.5) H 04/11/18 02:15 INR 1.47 (0.93-1.08) H 04/11/18 02:15 APTT 34.6 Seconds (25.1-36.5) 04/11/18 02:15 - Constitutional Appears: Cachectic - Eye Exam Eye Exam: absent: Scleral icterus - ENT Exam ENT Exam: Mucous Membranes Moist - Respiratory Exam Respiratory Exam: Clear to Ausculation Bilateral. absent: Respiratory Distress Additional comments: decreased breath sounds at R base; - Cardiovascular Exam Cardiovascular Exam: RRR, +S1, +S2 - GI/Abdominal Exam GI & Abdominal Exam: Soft. absent: Distended, Tenderness - Exam Exam: absent: Bladder Distension - Extremities Exam Additional comments: no leg edema; - Neurological Exam Neurological Exam: Alert, Awake - Psychiatric Exam Psychiatric exam: Normal Mood. absent: Agitated - Skin Skin Exam: Warm. absent: Cyanosis Assessment and Plan (1) Acute renal failure Assessment & Plan: Oliuric renal failure; likely ATN that was exacerbated by NSAID dose, however, still concern for HRS; no improvement in renal function with volume repletion using IV albumin; will continue volume repletion with 5% IV albumin q4h x 4 doses; will check urine lytes thereafter; continue to avoid nephrotoxic agents; agree with starting midodrine/octreotide for possible HRS; Status: Acute (2) Hypotension Assessment & Plan: Low/normal BP, re-started on midodrine, continue; Status: Acute (3) Anemia Status: Chronic (4) Cirrhosis of liver with ascites Assessment & Plan: Rapid re-accumulation of ascites fluid; may need much higher doses of diuretics to prevent rapid recurrence but holding off for now until renal function improves; Status: Chronic
[2018-04-13] MEDS ORDERED: Morphine 4 mg/ml ISec IVP STA (00:06)
[2018-04-13] MEDS: Albumin Human 5% (12.5 gm/250 ml) IV SCH ×7 (02:48→18:38)
--- NOTE | 2018-04-13 06:45 | CP.PCM.PN ---
<Steven Dixon - Last Filed: 04/13/18 09:08> Subjective - Date & Time of Evaluation Date of Evaluation: 04/13/18 Time of Evaluation: 06:50 - Subjective Subjective: Subjective: Patient seen and examined at bedside. No acute overnight events. States that he is able to tolerate his puree diet. Continues to have difficulty/pain with swallowing. Denies overt abdominal pain, nausea, vomiting, blood per rectum, and dark stools. Physical Examination: - Constitutional Appears: Non-toxic, No Acute Distress - Head Exam Head Exam: ATRAUMATIC, NORMOCEPHALIC - Eye Exam Eye Exam: EOMI - ENT Exam ENT Exam: Mucous Membranes Dry - Neck Exam Neck exam: Positive for: Full Rom, Normal Inspection. Negative for: Lymphadenopathy, Meningismus, Tenderness, Thyromegaly - Respiratory Exam Respiratory Exam: Decreased Breath Sounds right lower lobe, NORMAL BREATHING PATTERN. absent: Accessory Muscle Use - Cardiovascular Exam Cardiovascular Exam: +S1, +S2. - GI/Abdominal Exam GI & Abdominal Exam: Normal Bowel Sounds, Soft, Tender to palpation diffusely, organomegaly; absent: Bruit, Diminished Bowel Sounds, Firm, Guarding, Rebound Tenderness, fluid wave - Extremities Exam Extremities exam: Positive for: full ROM, normal capillary refill, normal inspection, pedal pulses present. Negative for: calf tenderness, joint swelling , pedal edema, tenderness - Neurological Exam Neurological exam: Alert, Oriented x3 - Psychiatric Exam Psychiatric exam: Normal Affect, Normal Mood - Skin Skin Exam: Dry, Intact, Warm Assessment and Plan: Patient is a 63 year old male with a past medical history significant for HTN, diastolic CHF, Atrial Fibrillation s/p cardioversion, CKD stage 3B, non- alcoholic liver cirrhosis of unclear etiology, hepatic encephalopathy, chronic ascites, esophageal varices s/p banding, and GERD who was admitted for evaluation and treatment of nausea, vomiting, hematemesis, dysphagia, blood tinged stools and intermittent SOB. CT of abdomen/pelvis 04/11/18 without contrast revealed cirrhosis with portal hypertension, a large amount of free fluid within abdomen and pelvis, no free air, a right pleural effusion with compressive atelectasis. EGD from 09/2017 revealed esophageal varices extending from the distal to upper esophagus with stigmata of hemorrhage and patient underwent bands x 9. Patient is s/p paracentesis on 04/11/18 in which 6500 cc of clear fluid was removed. Dysphagia/Odynophagia Decompensated cirrhosis - MELD 22 Elevated Total Bilirubin KEYUR on CKD Hx of esophageal varices Hx of hepatic encephalopathy - H/H reviewed, trended, and appreciated- downtrending - barium swallow ordered and pending - albumin restarted- total of 62.5 gram needed - c/w octreotide - c/w midodrine - restart lactulose and rifaximin - ppi discontinued as patient had ascities - NPO for swallow study- continue puree, low sodium diet when study completed - endoscopic evaluation tentatively planned for 04/14/18 - abx as per ID Thank you for the opportunity in participating in the care of this patient. We will continue to follow with you. Objective - Vital Signs/Intake and Output Vital Signs (last 24 hours): Temp Pulse Resp BP Pulse Ox 98.0 F 55 L 20 95/50 L 98 04/12/18 22:00 04/12/18 22:00 04/12/18 22:00 04/12/18 22:00 04/12/18 22:00 Intake and Output: 04/12/18 04/13/18 18:59 06:59 Intake Total 240 Output Total 300 400 Balance -60 -400 - Medications Medications: Current Medications Albumin Human (Albumin Human 5% (12.5 Gm/250 Ml)) 12.5 gm IV Q4H [facility] Stop: 04/13/18 07:01 Last Admin: 04/13/18 05:59 Dose: 12.5 gm Ascorbic Acid (Vitamin C 500 Mg Tab) 1,000 mg PO BID [facility] Last Admin: 04/12/18 18:17 Dose: 1,000 mg Cholecalciferol (Vitamin D) 2,000 intlu PO DAILY [facility] Last Admin: 04/12/18 10:59 Dose: 2,000 intlu Cyanocobalamin (Vitamin B12 1000 Mcg Tab) 1,000 mcg PO DAILY [facility] Last Admin: 04/12/18 10:59 Dose: 1,000 mcg Meropenem 250 mg/ Sodium (Chloride) 100 mls @ 100 mls/hr IVPB Q12H [facility] PRN Reason: Protocol Stop: 04/21/18 10:46 Last Admin: 04/12/18 22:02 Dose: 100 mls/hr Midodrine (Proamatine) 10 mg PO TID [facility] Last Admin: 04/12/18 18:16 Dose: 10 mg Octreotide Acetate (Sandostatin) 100 mcg SC TID [facility] Last Admin: 04/12/18 19:04 Dose: 100 mcg Ondansetron HCl (Zofran Inj) 4 mg IVP Q6H PRN PRN Reason: Nausea/Vomiting Last Admin: 04/11/18 13:17 Dose: 4 mg Vitamin A (Vitamin A & D Oint Ud Foilpak) 1 ea TOP Q2 PRN PRN Reason: Dry mouth - Labs Labs: 04/12/18 06:30 04/12/18 06:30 PT 16.9 SECONDS (9.4-12.5) H 04/11/18 02:15 INR 1.47 (0.93-1.08) H 04/11/18 02:15 APTT 34.6 Seconds (25.1-36.5) 04/11/18 02:15 <Megha Hodgson - Last Filed: 04/13/18 15:16> Objective - Vital Signs/Intake and Output Vital Signs (last 24 hours): Temp Pulse Resp BP Pulse Ox 98.4 F 62 16 106/54 L 97 04/13/18 14:00 04/13/18 14:00 04/13/18 14:00 04/13/18 14:00 04/13/18 14:00 Intake and Output: 04/13/18 04/13/18 06:59 18:59 Intake Total 120 Output Total 400 100 Balance -400 20 - Medications Medications: Current Medications Albumin Human (Albumin Human 5% (12.5 Gm/250 Ml)) 12.5 gm IV Q2H [facility] Stop: 04/13/18 16:01 Last Admin: 04/13/18 14:45 Dose: 12.5 gm Ascorbic Acid (Vitamin C 500 Mg Tab) 1,000 mg PO BID [facility] Last Admin: 04/13/18 10:33 Dose: Not Given Cholecalciferol (Vitamin D) 2,000 intlu PO DAILY [facility] Last Admin: 04/13/18 10:29 Dose: Not Given Cyanocobalamin (Vitamin B12 1000 Mcg Tab) 1,000 mcg PO DAILY [facility] Last Admin: 04/13/18 10:35 Dose: Not Given Meropenem 250 mg/ Sodium (Chloride) 100 mls @ 100 mls/hr IVPB Q12H [facility] PRN Reason: Protocol Stop: 04/21/18 10:46 Last Admin: 04/13/18 11:03 Dose: 100 mls/hr Lactulose (Enulose) 20 gm PO HS [facility] Midodrine (Proamatine) 10 mg PO TID [facility] Last Admin: 04/13/18 14:36 Dose: 10 mg Octreotide Acetate (Sandostatin) 100 mcg SC TID [facility] Last Admin: 04/13/18 14:34 Dose: 100 mcg Ondansetron HCl (Zofran Inj) 4 mg IVP Q6H PRN PRN Reason: Nausea/Vomiting Last Admin: 04/11/18 13:17 Dose: 4 mg Rifaximin (Xifaxan) 550 mg PO BID [facility] PRN Reason: Protocol Last Admin: 04/13/18 10:35 Dose: Not Given Vitamin A (Vitamin A & D Oint Ud Foilpak) 1 ea TOP Q2 PRN PRN Reason: Dry mouth - Labs Labs: 04/13/18 06:20 04/13/18 06:20 PT 18.6 SECONDS (9.4-12.5) H 04/13/18 07:51 INR 1.60 (0.93-1.08) H 04/13/18 07:51 APTT 34.6 Seconds (25.1-36.5) 04/11/18 02:15 Attending/Attestation - Attestation I have personally seen and examined this patient.: Yes I have fully participated in the care of the patient.: Yes I have reviewed all pertinent clinical information, including history, physical exam and plan: Yes Notes (Text): 04/13/18 15:16 This is a 63 year old male with h/o decompensated cirrhosis with recent MELD 22 and azotemia on low dose diuretics at home. He now presents with dysphagia. Recommend Speech/swallow evaluation. If symptoms persist will schedule EGD- last EGD with 9 bands in Sep 2017. Due to increased Cr hold diuretics and continue albumin for 72 hours with octreotide tid SQ and midodrine po tid. Discontinue PPI due to ascites and high risk of SBP. Do trail of pureed diet
[2018-04-13 07:05] LABS: BASO # 0.05 K/mm3 (0.0-2.0); BASO % 0.6 % (0.0-3.0); EOS # 3.8 (0.0-0.7); EOS % 46.5 % (1.5-5.0); GRAN # 2.33 (1.4-6.5); GRAN % 28.6 % (50.0-68.0); HEMOGLOBIN 9.3 g/dL (14.0-18.0); LYMPH # 1.1 (1.2-3.4); LYMPH % 13.9 % (22.0-35.0); MEAN CELL VOLUME 98.2 fl (80.0-105.0); MEAN CORPUSCULAR HEMOGLOBIN 33.2 pg (25.0-35.0); MEAN CORPUSCULAR HGB CONC 33.8 g/dl (31.0-37.0); MEAN PLATELET VOLUME 10.3 fl (7.0-11.0); MONO # 0.9 (0.1-0.6); MONO % 10.4 % (1.0-6.0); RBC 2.8 10^6/uL (3.5-6.1); RED CELL DISTRIBUTION WIDTH 16.8 % (11.5-14.5); WHITE BLOOD COUNT 8.2 10^3/ul (4.5-11.0)
[2018-04-13 07:18] LABS: ALB/GLOB RATIO 1.1 (1.1-1.8); ALBUMIN 3.8 g/dL (3.0-4.8); CALCIUM 8.7 mg/dL (8.4-10.5)
[2018-04-13 08:24] LABS: INR 1.6 (0.93-1.08); PROTHROMBIN TIME 18.6 SECONDS (9.4-12.5)
[2018-04-13] MEDS: Cholecalciferol 1,000 INTLU TAB PO SCH (10:29)
--- NOTE | 2018-04-13 14:37 | CP.PCM.PN ---
<Alvaro Allen - Last Filed: 04/13/18 14:50> Subjective - Date & Time of Evaluation Date of Evaluation: 04/13/18 Time of Evaluation: 09:25 - Subjective Subjective: PGY1 Medicine Note for Dr. Mccloud Patient seen and examined at bedside this morning. No acute events overnight. Patient's abdominal pain and shortness of breath is greatly improved today. He reports being able to eat approx 30% of his breakfast but is still having difficulty with swallowing. Denies fevers, chills, nausea, vomiting, diarrhea, constipation, chest pain, palpitations or abdominal pain. Objective - Vital Signs/Intake and Output Vital Signs (last 24 hours): Temp Pulse Resp BP Pulse Ox 98.4 F 74 20 113/68 99 04/13/18 06:00 04/13/18 06:00 04/13/18 06:00 04/13/18 06:00 04/13/18 06:00 Intake and Output: 04/13/18 04/13/18 06:59 18:59 Output Total 400 Balance -400 - Medications Medications: Current Medications Albumin Human (Albumin Human 5% (12.5 Gm/250 Ml)) 12.5 gm IV Q2H [facility] Stop: 04/13/18 16:01 Last Admin: 04/13/18 11:51 Dose: 12.5 gm Ascorbic Acid (Vitamin C 500 Mg Tab) 1,000 mg PO BID [facility] Last Admin: 04/13/18 10:33 Dose: Not Given Cholecalciferol (Vitamin D) 2,000 intlu PO DAILY [facility] Last Admin: 04/13/18 10:29 Dose: Not Given Cyanocobalamin (Vitamin B12 1000 Mcg Tab) 1,000 mcg PO DAILY [facility] Last Admin: 04/13/18 10:35 Dose: Not Given Meropenem 250 mg/ Sodium (Chloride) 100 mls @ 100 mls/hr IVPB Q12H [facility] PRN Reason: Protocol Stop: 04/21/18 10:46 Last Admin: 04/13/18 11:03 Dose: 100 mls/hr Lactulose (Enulose) 20 gm PO [facility] Midodrine (Proamatine) 10 mg PO TID [facility] Last Admin: 04/13/18 10:35 Dose: Not Given Octreotide Acetate (Sandostatin) 100 mcg SC TID [facility] Last Admin: 04/13/18 10:35 Dose: 100 mcg Ondansetron HCl (Zofran Inj) 4 mg IVP Q6H PRN PRN Reason: Nausea/Vomiting Last Admin: 04/11/18 13:17 Dose: 4 mg Rifaximin (Xifaxan) 550 mg PO BID [facility] PRN Reason: Protocol Last Admin: 04/13/18 10:35 Dose: Not Given Vitamin A (Vitamin A & D Oint Ud Foilpak) 1 ea TOP Q2 PRN PRN Reason: Dry mouth - Labs Labs: 04/13/18 06:20 04/13/18 06:20 PT 18.6 SECONDS (9.4-12.5) H 04/13/18 07:51 INR 1.60 (0.93-1.08) H 04/13/18 07:51 APTT 34.6 Seconds (25.1-36.5) 04/11/18 02:15 - Constitutional Appears: Non-toxic, No Acute Distress, Chronically Ill - Head Exam Head Exam: ATRAUMATIC, NORMOCEPHALIC - Eye Exam Eye Exam: Normal appearance - ENT Exam ENT Exam: Mucous Membranes Moist - Respiratory Exam Respiratory Exam: Decreased Breath Sounds, NORMAL BREATHING PATTERN. absent: Accessory Muscle Use, Rhonchi, Wheezes, Respiratory Distress - Cardiovascular Exam Cardiovascular Exam: REGULAR RHYTHM, +S1, +S2 - GI/Abdominal Exam GI & Abdominal Exam: Soft. absent: Distended, Firm, Guarding, Rigid, Tenderness - Extremities Exam Extremities Exam: absent: Calf Tenderness, Pedal Edema - Neurological Exam Neurological Exam: Alert, Awake, CN II-XII Intact, Oriented x3 - Psychiatric Exam Psychiatric exam: Normal Affect, Normal Mood - Skin Skin Exam: Dry, Warm Assessment and Plan - Assessment and Plan (Free Text) Assessment: 63 year old male with a past medical history significant for HTN, diastolic CHF , Atrial Fibrillation s/p cardioversion, CKD stage 3B, non-alcoholic liver cirrhosis of unclear etiology, hepatic encephalopathy, chronic ascites, esophageal varices s/p banding, and GERD who presented with three days of nausea , vomiting, hematemesis, dysphagia, blood tinged stools and intermittent SOB. Plan: Dysphagia with Hematemesis, hx of esophageal varices - no episoodes of hematemesis in past 24 hours - VS and H/H stable at this time - Protonix 40mg IVP Q12 - Octreotide 100mcg SC TID - Zofran 4mg IVP q6h prn - liquid diet - monitor H/H - resume home PO meds - GI consulted, all recommendations appreciated - Scheduled for EGD tomorrow 04/14. NPO past midnight. Right Pleural Effusion - Chest X-ray showing right sided pleural effusion - CT abdomen/pelvis: 1. Cirrhosis with portal hypertension. 2. Right pleural effusion with compressive atelectasis. Superimposed pneumonia not excluded. - ID consulted, follow recs - Meropenem 250mg IVPB q12h (started on 04/12) - procalcitonin .37 Cirrhosis of Liver with ascites - patient had 6.[address] Crespo paracentesis on 04/11 - paracentesis: Total Cell Count 100, WBC: 45, Neurophils: 13.2 - low suspicion for SBP - patient has been afebrile throughout hospital course [facility] on CKD - Creatinine elevated from baseline - Improving today Cr 2.0 - Continue to monitor with daily CMP's - Hold all nephrotoxic agents - nephro, consulted, Mughni follow recs - IV albumin per nephro - hold diuretics Hypotension Midodrine 10mg PO TID continue to monitor Prophylactic Care GI Prophylaxis: Protonix IVP DVT Prophylaxis: SCD's Case discussed with Dr. Ame Allen PGY1 <Otto Mccloud - Last Filed: 04/13/18 15:16> Objective - Vital Signs/Intake and Output Vital Signs (last 24 hours): Temp Pulse Resp BP Pulse Ox 98.4 F 62 16 106/54 L 97 04/13/18 14:00 04/13/18 14:00 04/13/18 14:00 04/13/18 14:00 04/13/18 14:00 Intake and Output: 04/13/18 04/13/18 06:59 18:59 Intake Total 120 Output Total 400 100 Balance -400 20 - Medications Medications: Current Medications Albumin Human (Albumin Human 5% (12.5 Gm/250 Ml)) 12.5 gm IV Q2H [facility] Stop: 04/13/18 16:01 Last Admin: 04/13/18 14:45 Dose: 12.5 gm Ascorbic Acid (Vitamin C 500 Mg Tab) 1,000 mg PO BID [facility] Last Admin: 04/13/18 10:33 Dose: Not Given Cholecalciferol (Vitamin D) 2,000 intlu PO DAILY [facility] Last Admin: 04/13/18 10:29 Dose: Not Given Cyanocobalamin (Vitamin B12 1000 Mcg Tab) 1,000 mcg PO DAILY [facility] Last Admin: 04/13/18 10:35 Dose: Not Given Meropenem 250 mg/ Sodium (Chloride) 100 mls @ 100 mls/hr IVPB Q12H [facility] PRN Reason: Protocol Stop: 04/21/18 10:46 Last Admin: 04/13/18 11:03 Dose: 100 mls/hr Lactulose (Enulose) 20 gm PO HS [facility] Midodrine (Proamatine) 10 mg PO TID [facility] Last Admin: 04/13/18 14:36 Dose: 10 mg Octreotide Acetate (Sandostatin) 100 mcg SC TID [facility] Last Admin: 04/13/18 14:34 Dose: 100 mcg Ondansetron HCl (Zofran Inj) 4 mg IVP Q6H PRN PRN Reason: Nausea/Vomiting Last Admin: 04/11/18 13:17 Dose: 4 mg Rifaximin (Xifaxan) 550 mg PO BID [facility] PRN Reason: Protocol Last Admin: 04/13/18 10:35 Dose: Not Given Vitamin A (Vitamin A & D Oint Ud Foilpak) 1 ea TOP Q2 PRN PRN Reason: Dry mouth - Labs Labs: 04/13/18 06:20 04/13/18 06:20 PT 18.6 SECONDS (9.4-12.5) H 04/13/18 07:51 INR 1.60 (0.93-1.08) H 04/13/18 07:51 APTT 34.6 Seconds (25.1-36.5) 04/11/18 02:15 Attending/Attestation - Attestation I have personally seen and examined this patient.: Yes I have fully participated in the care of the patient.: Yes I have reviewed all pertinent clinical information, including history, physical exam and plan: Yes Notes (Text): 04/13/18 15:14 63 year old male with past medical history of hypertension, afib s/p cardioversion, CKD, non-alcoholic liver cirrhosis, ascites, and esophageal varices s/p banding who presented with complaint of abdominal hematemesis, dysphagia, abdominal distention and dyspnea. CT abd/pelvis showed large ascites and moderate right pleural effusion. He was seen by IR and is s/p paracentesis. Findings not suggestive of SBP. Will discuss with ID if can discontinue meropenem. He is on albumin and midodrine. Nephrology is also following for acute on chronic renal failure which is slowly improving. GI and speech/swallow are following for dysphagia. Plan is for EGD tomorrow. Otto Mccloud MD Hospitalist.
--- NOTE | 2018-04-13 17:17 | PN ---
DATE: 04/13/2018 SUBJECTIVE: Patient seen in room 563, bed 2 this morning. Patient's status is improved. No fevers and chills. PHYSICAL EXAMINATION: VITAL SIGNS: Temperature is 98, blood pressure is 106/54, respiratory rate 16, heart rate of 62. HEENT: Unremarkable. NECK: Supple. LUNGS: Decreased breath sounds. HEART: Normal S1 and S2. ABDOMEN: Soft, nontender. No rebound or guarding. LABORATORY DATA: Reveals a white count of 8.2, hemoglobin of 9, platelets of 91. Chemistries reveal the BUN of 44, creatinine of 2, procalcitonin of 0.37. CAT scan of the abdomen is noted. Patient has had peritoneal fluid. He is noted to have 45 WBCs. The cultures are negative. ASSESSMENT AND PLAN: This is a 63-year-old male who was admitted with weakness. He has renal disease, nonalcoholic steatohepatitis, atrial fibrillation, moderate aortic stenosis, moderate tricuspid regurgitation, cirrhosis of the liver, ascites, recent hospitalization, admitted with abdominal pain, hematemesis, cirrhosis with portal hypertension, negative WBCs, no evidence of spontaneous bacterial peritonitis. No evidence of pneumonia in the imaging. negative procalcitonin, negative cultures. We will discontinue the meropenem. No evidence of infection. Overall prognosis in this patient is quite poor. Bravo Christensen MD
--- NOTE | 2018-04-13 18:06 | CP.PCM.PN ---
Objective - Vital Signs/Intake and Output Vital Signs (last 24 hours): Temp Pulse Resp BP Pulse Ox 98.4 F 62 16 106/54 L 97 04/13/18 14:00 04/13/18 14:00 04/13/18 14:00 04/13/18 14:00 04/13/18 14:00 Intake and Output: 04/13/18 04/13/18 06:59 18:59 Intake Total 120 Output Total 400 100 Balance -400 20 - Medications Medications: Current Medications Ascorbic Acid (Vitamin C 500 Mg Tab) 1,000 mg PO BID [facility] Last Admin: 04/13/18 10:33 Dose: Not Given Cholecalciferol (Vitamin D) 2,000 intlu PO DAILY [facility] Last Admin: 04/13/18 10:29 Dose: Not Given Cyanocobalamin (Vitamin B12 1000 Mcg Tab) 1,000 mcg PO DAILY [facility] Last Admin: 04/13/18 10:35 Dose: Not Given Lactulose (Enulose) 20 gm PO [facility] Midodrine (Proamatine) 10 mg PO TID [facility] Last Admin: 04/13/18 14:36 Dose: 10 mg Octreotide Acetate (Sandostatin) 100 mcg SC TID [facility] Last Admin: 04/13/18 14:34 Dose: 100 mcg Ondansetron HCl (Zofran Inj) 4 mg IVP Q6H PRN PRN Reason: Nausea/Vomiting Last Admin: 04/11/18 13:17 Dose: 4 mg Rifaximin (Xifaxan) 550 mg PO BID [facility] PRN Reason: Protocol Last Admin: 04/13/18 10:35 Dose: Not Given Vitamin A (Vitamin A & D Oint Ud Foilpak) 1 ea TOP Q2 PRN PRN Reason: Dry mouth - Labs Labs: 04/13/18 06:20 04/13/18 06:20 PT 18.6 SECONDS (9.4-12.5) H 04/13/18 07:51 INR 1.60 (0.93-1.08) H 04/13/18 07:51 APTT 34.6 Seconds (25.1-36.5) 04/11/18 02:15 Assessment and Plan (1) Acute renal failure Status: Acute (2) Hypotension Status: Acute (3) Anemia Status: Chronic (4) Cirrhosis of liver with ascites Status: Chronic
[2018-04-14 06:56] LABS: BASO # 0.04 K/mm3 (0.0-2.0); BASO % 0.5 % (0.0-3.0); EOS # 1.9 (0.0-0.7); EOS % 26.3 % (1.5-5.0); GRAN # 3.38 (1.4-6.5); HEMOGLOBIN 10.6 g/dL (14.0-18.0); MEAN CELL VOLUME 98.1 fl (80.0-105.0); MEAN CORPUSCULAR HEMOGLOBIN 33.1 pg (25.0-35.0); MEAN CORPUSCULAR HGB CONC 33.8 g/dl (31.0-37.0); MONO % 13.2 % (1.0-6.0); RBC 3.2 10^6/uL (3.5-6.1); RED CELL DISTRIBUTION WIDTH 16.5 % (11.5-14.5); WHITE BLOOD COUNT 7.4 10^3/ul (4.5-11.0)
[2018-04-14 07:16] LABS: INR 1.53 (0.93-1.08); PROTHROMBIN TIME 17.7 SECONDS (9.4-12.5)
[2018-04-14 07:24] LABS: ALB/GLOB RATIO 1.3 (1.1-1.8); ALBUMIN 4.4 g/dL (3.0-4.8); CALCIUM 9.1 mg/dL (8.4-10.5)
[2018-04-14] MEDS ORDERED: Propofol 10 mg/ml Inj (20 ML) ONE (09:46)
[2018-04-14] MEDS: Cholecalciferol 1,000 INTLU TAB PO SCH (10:03)
[2018-04-14] MEDS ORDERED: ePHEDrine 50 mg/ml Inj ONE (10:05)
[2018-04-14] MEDS ORDERED: Sodium Chloride 0.9% 1,000 ML IV SCH (10:30)
--- NOTE | 2018-04-14 12:00 | CP.PCM.PN ---
<Obie Velazquez - Last Filed: 04/14/18 13:05> Subjective - Date & Time of Evaluation Date of Evaluation: 04/14/18 Time of Evaluation: 06:00 - Subjective Subjective: Patient seen and evaluated bedside. no acute issues overnight. Patient complaining of difficulty of swallowing and pain but states shortness of breath has resolved. Denies fever, chills, chest pain, shortness of breath or any other complaints. Objective - Vital Signs/Intake and Output Vital Signs (last 24 hours): Temp Pulse Resp BP Pulse Ox 98 F 69 12 120/70 99 04/14/18 11:02 04/14/18 11:02 04/14/18 11:02 04/14/18 11:02 04/14/18 11:02 Intake and Output: 04/14/18 04/14/18 06:59 18:59 Intake Total 0 Output Total 600 Balance -600 - Medications Medications: Current Medications Albumin Human (Albumin Human 5% (12.5 Gm/250 Ml)) 12.5 gm IV Q2H [facility] Stop: 04/14/18 19:01 Ascorbic Acid (Vitamin C 500 Mg Tab) 1,000 mg PO BID [facility] Last Admin: 04/13/18 18:41 Dose: 1,000 mg Cholecalciferol (Vitamin D) 2,000 intlu PO DAILY [facility] Last Admin: 04/13/18 10:29 Dose: Not Given Cyanocobalamin (Vitamin B12 1000 Mcg Tab) 1,000 mcg PO DAILY [facility] Last Admin: 04/13/18 10:35 Dose: Not Given Lactulose (Enulose) 20 gm PO HS [facility] Last Admin: 04/13/18 21:13 Dose: Not Given Midodrine (Proamatine) 10 mg PO TID [facility] Last Admin: 04/13/18 18:41 Dose: 10 mg Octreotide Acetate (Sandostatin) 100 mcg SC TID [facility] Last Admin: 04/13/18 18:38 Dose: 100 mcg Ondansetron HCl (Zofran Inj) 4 mg IVP Q6H PRN PRN Reason: Nausea/Vomiting Last Admin: 04/13/18 21:06 Dose: 4 mg Propranolol HCl (Inderal) 10 mg PO BID [facility] Rifaximin (Xifaxan) 550 mg PO BID [facility] PRN Reason: Protocol Last Admin: 04/13/18 18:40 Dose: 550 mg Tramadol HCl (Ultram) 50 mg PO TID PRN PRN Reason: Pain, moderate (4-7) Vitamin A (Vitamin A & D Oint Ud Foilpak) 1 ea TOP Q2 PRN PRN Reason: Dry mouth - Labs Labs: 04/14/18 06:15 04/14/18 06:15 PT 17.7 SECONDS (9.4-12.5) H 04/14/18 06:15 INR 1.53 (0.93-1.08) H 04/14/18 06:15 APTT 34.6 Seconds (25.1-36.5) 04/11/18 02:15 - Constitutional Appears: Non-toxic, No Acute Distress, Chronically Ill - Head Exam Head Exam: ATRAUMATIC, NORMAL INSPECTION, NORMOCEPHALIC - Eye Exam Eye Exam: Normal appearance - ENT Exam ENT Exam: Mucous Membranes Moist - Respiratory Exam Respiratory Exam: Clear to Ausculation Bilateral, NORMAL BREATHING PATTERN - Cardiovascular Exam Cardiovascular Exam: REGULAR RHYTHM, +S1, +S2 - GI/Abdominal Exam GI & Abdominal Exam: Soft, Tenderness - Extremities Exam Extremities Exam: absent: Pedal Edema - Neurological Exam Neurological Exam: Alert, Awake, Oriented x3 Assessment and Plan - Assessment and Plan (Free Text) Assessment: 63 year old male with a past medical history significant for HTN, diastolic CHF , Atrial Fibrillation s/p cardioversion, CKD stage 3B, non-alcoholic liver cirrhosis of unclear etiology, hepatic encephalopathy, chronic ascites, esophageal varices s/p banding, and GERD who presented with three days of nausea , vomiting, hematemesis, dysphagia, blood tinged stools and intermittent SOB. Plan: Dysphagia with Hematemesis, hx of esophageal varices - no episoodes of hematemesis in past 24 hours - VS and H/H stable at this time - Octreotide 100mcg SC TID - Zofran - clear liquid diet - monitor H/H - GI consulted, all recommendations appreciated EGD today showed 2 varices, banded, started on propanolol Right Pleural Effusion - Chest X-ray showing right sided pleural effusion - CT abdomen/pelvis: 1. Cirrhosis with portal hypertension. 2. Right pleural effusion with compressive atelectasis. Superimposed pneumonia not excluded. - ID consulted, follow recs - abx discontinued Cirrhosis of Liver with ascites - patient had 6.[address] Crespo paracentesis on 04/11 - paracentesis: Total Cell Count 100, WBC: 45, Neurophils: 13.2 - low suspicion for SBP - patient has been afebrile throughout hospital course [facility] on CKD - Creatinine elevated from baseline - Improving today Cr 1.7 - Continue to monitor with daily CMP's - Hold all nephrotoxic agents - nephro, consulted, Mughni follow recs - IV albumin per nephro - hold diuretics Hypotension-resolved Midodrine 10mg PO TID continue to monitor Prophylactic Care DVT Prophylaxis: SCD's Physical Therapy recommended: Sub Acute Rehab <Otto Mccloud - Last Filed: 04/14/18 13:20> Objective - Vital Signs/Intake and Output Vital Signs (last 24 hours): Temp Pulse Resp BP Pulse Ox 98 F 69 12 120/70 99 04/14/18 11:02 04/14/18 11:02 04/14/18 11:02 04/14/18 11:02 04/14/18 11:02 Intake and Output: 04/14/18 04/14/18 06:59 18:59 Intake Total 0 Output Total 600 Balance -600 - Medications Medications: Current Medications Albumin Human (Albumin Human 5% (12.5 Gm/250 Ml)) 12.5 gm IV Q2H [facility] Stop: 04/14/18 19:01 Last Admin: 04/14/18 12:01 Dose: 12.5 gm Ascorbic Acid (Vitamin C 500 Mg Tab) 1,000 mg PO BID [facility] Last Admin: 04/14/18 12:27 Dose: 1,000 mg Cholecalciferol (Vitamin D) 2,000 intlu PO DAILY [facility] Last Admin: 04/13/18 10:29 Dose: Not Given Cyanocobalamin (Vitamin B12 1000 Mcg Tab) 1,000 mcg PO DAILY [facility] Last Admin: 04/14/18 12:15 Dose: 1,000 mcg Lactulose (Enulose) 20 gm PO HS [facility] Last Admin: 04/13/18 21:13 Dose: Not Given Midodrine (Proamatine) 10 mg PO TID [facility] Last Admin: 04/14/18 12:14 Dose: 10 mg Octreotide Acetate (Sandostatin) 100 mcg SC TID [facility] Last Admin: 04/13/18 18:38 Dose: 100 mcg Ondansetron HCl (Zofran Inj) 4 mg IVP Q6H PRN PRN Reason: Nausea/Vomiting Last Admin: 04/13/18 21:06 Dose: 4 mg Propranolol HCl (Inderal) 10 mg PO BID [facility] Rifaximin (Xifaxan) 550 mg PO BID [facility] PRN Reason: Protocol Last Admin: 04/14/18 12:14 Dose: 550 mg Tramadol HCl (Ultram) 50 mg PO TID PRN PRN Reason: Pain, moderate (4-7) Last Admin: 04/14/18 12:15 Dose: 50 mg Vitamin A (Vitamin A & D Oint Ud Foilpak) 1 ea TOP Q2 PRN PRN Reason: Dry mouth - Labs Labs: 04/14/18 06:15 04/14/18 06:15 PT 17.7 SECONDS (9.4-12.5) H 04/14/18 06:15 INR 1.53 (0.93-1.08) H 04/14/18 06:15 APTT 34.6 Seconds (25.1-36.5) 04/11/18 02:15 Attending/Attestation - Attestation I have personally seen and examined this patient.: Yes I have fully participated in the care of the patient.: Yes I have reviewed all pertinent clinical information, including history, physical exam and plan: Yes Notes (Text): 04/14/18 13:18 63 year old male with past medical history of hypertension, afib s/p cardioversion, CKD, non-alcoholic liver cirrhosis, ascites, and esophageal varices s/p banding who presented with complaint of abdominal hematemesis, dysphagia, abdominal distention and dyspnea. CT abd/pelvis showed large ascites and moderate right pleural effusion. He was seen by IR and is s/p paracentesis. He is on albumin, octreotide and midodrine. Nephrology is also following for acute on chronic renal failure which continues to improved. He is also being followed by GI for dysphagia. He is s/p EGD today which showed grade 2 esophageal varices s/p banding. Will need repeat EGD in 2 months. Continue with clear liquid diet for today. PT follow up requested for d/c planning. Otto Mccloud MD Hospitalist.
[2018-04-14] MEDS: Albumin Human 5% (12.5 gm/250 ml) IV SCH ×5 (12:01→21:52)
--- NOTE | 2018-04-14 15:28 | CP.PCM.PN ---
Subjective - Date & Time of Evaluation Date of Evaluation: 04/14/18 Time of Evaluation: 11:05 - Subjective Subjective: The patient just had endoscopy, no fevers. Objective - Vital Signs/Intake and Output Vital Signs (last 24 hours): Temp Pulse Resp BP Pulse Ox 98 F 74 12 112/63 99 04/14/18 10:47 04/14/18 10:47 04/14/18 10:47 04/14/18 10:47 04/14/18 10:47 Intake and Output: 04/14/18 04/14/18 06:59 18:59 Intake Total 0 Output Total 600 Balance -600 - Medications Medications: Current Medications Albumin Human (Albumin Human 5% (12.5 Gm/250 Ml)) 12.5 gm IV Q2H [facility] Stop: 04/14/18 19:01 Ascorbic Acid (Vitamin C 500 Mg Tab) 1,000 mg PO BID [facility] Last Admin: 04/13/18 18:41 Dose: 1,000 mg Cholecalciferol (Vitamin D) 2,000 intlu PO DAILY [facility] Last Admin: 04/13/18 10:29 Dose: Not Given Cyanocobalamin (Vitamin B12 1000 Mcg Tab) 1,000 mcg PO DAILY [facility] Last Admin: 04/13/18 10:35 Dose: Not Given Sodium Chloride (Sodium Chloride 0.9%) 1,000 mls @ 100 mls/hr IV .Q10H [facility] Lactulose (Enulose) 20 gm PO HS [facility] Last Admin: 04/13/18 21:13 Dose: Not Given Midodrine (Proamatine) 10 mg PO TID [facility] Last Admin: 04/13/18 18:41 Dose: 10 mg Octreotide Acetate (Sandostatin) 100 mcg SC TID [facility] Last Admin: 04/13/18 18:38 Dose: 100 mcg Ondansetron HCl (Zofran Inj) 4 mg IVP Q6H PRN PRN Reason: Nausea/Vomiting Last Admin: 04/13/18 21:06 Dose: 4 mg Propranolol HCl (Inderal) 10 mg PO BID [facility] Rifaximin (Xifaxan) 550 mg PO BID [facility] PRN Reason: Protocol Last Admin: 04/13/18 18:40 Dose: 550 mg Vitamin A (Vitamin A & D Oint Ud Foilpak) 1 ea TOP Q2 PRN PRN Reason: Dry mouth - Labs Labs: 04/14/18 06:15 04/14/18 06:15 PT 17.7 SECONDS (9.4-12.5) H 04/14/18 06:15 INR 1.53 (0.93-1.08) H 04/14/18 06:15 APTT 34.6 Seconds (25.1-36.5) 04/11/18 02:15 - Constitutional Appears: Chronically Ill - Head Exam Head Exam: NORMAL INSPECTION - ENT Exam ENT Exam: Mucous Membranes Moist - Neck Exam Neck Exam: absent: Meningismus - Respiratory Exam Respiratory Exam: Decreased Breath Sounds - Cardiovascular Exam Cardiovascular Exam: +S1, +S2 - GI/Abdominal Exam GI & Abdominal Exam: Soft. absent: Tenderness Assessment and Plan - Assessment and Plan (Free Text) Plan: Assessment Ascites without evidence of spontaneous bacterial peritonitis upper GI bleeding, consider variceal bleeding S/P endoscopy history of probable spontaneous bacterial peritonitis non-alcoholic steatohepatitis with liver cirrhosis and ascites Atrial fibrillation chronic renal failure Plan continue to monitor off antibiotics since he is at risk for infection follow up endoscopy results overall prognosis is poor
--- NOTE | 2018-04-14 19:59 | CP.PCM.PN ---
Objective - Vital Signs/Intake and Output Vital Signs (last 24 hours): Temp Pulse Resp BP Pulse Ox 97.7 F 78 20 116/78 97 04/14/18 14:00 04/14/18 18:19 04/14/18 14:00 04/14/18 18:19 04/14/18 14:00 - Medications Medications: Current Medications Ascorbic Acid (Vitamin C 500 Mg Tab) 1,000 mg PO BID [facility] Last Admin: 04/14/18 18:20 Dose: 1,000 mg Cholecalciferol (Vitamin D) 2,000 intlu PO DAILY [facility] Last Admin: 04/14/18 10:03 Dose: Not Given Cyanocobalamin (Vitamin B12 1000 Mcg Tab) 1,000 mcg PO DAILY [facility] Last Admin: 04/14/18 12:15 Dose: 1,000 mcg Lactulose (Enulose) 20 gm PO HS [facility] Last Admin: 04/13/18 21:13 Dose: Not Given Midodrine (Proamatine) 10 mg PO TID [facility] Last Admin: 04/14/18 18:19 Dose: 10 mg Octreotide Acetate (Sandostatin) 100 mcg SC TID [facility] Last Admin: 04/14/18 18:15 Dose: Not Given Ondansetron HCl (Zofran Inj) 4 mg IVP Q6H PRN PRN Reason: Nausea/Vomiting Last Admin: 04/13/18 21:06 Dose: 4 mg Propranolol HCl (Inderal) 10 mg PO BID [facility] Last Admin: 04/14/18 18:19 Dose: 10 mg Rifaximin (Xifaxan) 550 mg PO BID [facility] PRN Reason: Protocol Last Admin: 04/14/18 18:19 Dose: 550 mg Tramadol HCl (Ultram) 50 mg PO TID PRN PRN Reason: Pain, moderate (4-7) Last Admin: 04/14/18 12:15 Dose: 50 mg Vitamin A (Vitamin A & D Oint Ud Foilpak) 1 ea TOP Q2 PRN PRN Reason: Dry mouth - Labs Labs: 04/14/18 06:15 04/14/18 06:15 PT 17.7 SECONDS (9.4-12.5) H 04/14/18 06:15 INR 1.53 (0.93-1.08) H 04/14/18 06:15 APTT 34.6 Seconds (25.1-36.5) 04/11/18 02:15 Assessment and Plan (1) Acute renal failure Status: Acute (2) Hypotension Status: Acute (3) Anemia Status: Chronic (4) Cirrhosis of liver with ascites Status: Chronic
[2018-04-15 07:29] LABS: INR 1.62 (0.93-1.08); PROTHROMBIN TIME 18.8 SECONDS (9.4-12.5)
--- NOTE | 2018-04-15 08:00 | CP.PCM.PN ---
Subjective - Date & Time of Evaluation Date of Evaluation: 04/15/18 Time of Evaluation: 07:56 - Subjective Subjective: Patient seen and examined, resting comfortably in bed. No acute events overnight, no bowel movements. He denies abdominal pain, fever/chills. Complains of nausea with phlegm this morning but tolerating PO liquids. 12 point review of systems performed, negative aside from mentioned above. Objective - Vital Signs/Intake and Output Vital Signs (last 24 hours): Temp Pulse Resp BP Pulse Ox 98.6 F 66 18 118/70 97 04/14/18 22:09 04/14/18 22:09 04/14/18 22:09 04/14/18 22:09 04/14/18 22:09 Intake and Output: 04/15/18 04/15/18 06:59 18:59 Intake Total 540 Output Total 400 Balance 140 - Medications Medications: Current Medications Ascorbic Acid (Vitamin C 500 Mg Tab) 1,000 mg PO BID [facility] Last Admin: 04/14/18 18:20 Dose: 1,000 mg Cholecalciferol (Vitamin D) 2,000 intlu PO DAILY [facility] Last Admin: 04/14/18 10:03 Dose: Not Given Cyanocobalamin (Vitamin B12 1000 Mcg Tab) 1,000 mcg PO DAILY [facility] Last Admin: 04/14/18 12:15 Dose: 1,000 mcg Lactulose (Enulose) 20 gm PO HS [facility] Last Admin: 04/14/18 21:53 Dose: Not Given Midodrine (Proamatine) 10 mg PO TID [facility] Last Admin: 04/14/18 18:19 Dose: 10 mg Octreotide Acetate (Sandostatin) 100 mcg SC TID [facility] Last Admin: 04/14/18 18:15 Dose: Not Given Ondansetron HCl (Zofran Inj) 4 mg IVP Q6H PRN PRN Reason: Nausea/Vomiting Last Admin: 04/15/18 00:40 Dose: 4 mg Propranolol HCl (Inderal) 10 mg PO BID [facility] Last Admin: 04/14/18 18:19 Dose: 10 mg Tramadol HCl (Ultram) 50 mg PO TID PRN PRN Reason: Pain, moderate (4-7) Last Admin: 04/15/18 04:42 Dose: 50 mg Vitamin A (Vitamin A & D Oint Ud Foilpak) 1 ea TOP Q2 PRN PRN Reason: Dry mouth - Labs Labs: 04/14/18 06:15 04/14/18 06:15 PT 18.8 SECONDS (9.4-12.5) H 04/15/18 06:30 INR 1.62 (0.93-1.08) H 04/15/18 06:30 APTT 34.6 Seconds (25.1-36.5) 04/11/18 02:15 - Constitutional Appears: Non-toxic, No Acute Distress - Head Exam Head Exam: NORMAL INSPECTION - Eye Exam Eye Exam: EOMI, Normal appearance - ENT Exam ENT Exam: Mucous Membranes Moist - Respiratory Exam Respiratory Exam: Clear to Ausculation Bilateral - Cardiovascular Exam Cardiovascular Exam: REGULAR RHYTHM, +S1, +S2 - GI/Abdominal Exam GI & Abdominal Exam: Soft, Normal Bowel Sounds Additional comments: non tender to palpation in four quadrants - Extremities Exam Extremities Exam: Normal Inspection - Skin Skin Exam: Dry, Intact, Normal Color, Warm Assessment and Plan - Assessment and Plan (Free Text) Assessment: HTN CHF CKD Decompensated cirrhosis Dysphagia, s/p EGD with variceal band ligation yesterday Ascites s/p paracentesis Plan: - Anti-emetic therapy PRN - Will advance diet to low sodium puree consistency - Continue to monitor creatinine, follow up nephrology recommendations - Continue with lactulose/xifaxan therapy for HE prevention - Continue with low dose non-selective b-ameya for variceal prophylaxis - Patient to follow up with [facility] liver clinic following hospital discharge. No further planned GI interventions, will sign off case. Please reconsult as necessary, thank you.
[2018-04-15 10:06] LABS: HEMOGLOBIN 10.3 g/dL (14.0-18.0); MEAN CELL VOLUME 98.1 fl (80.0-105.0); MEAN CORPUSCULAR HEMOGLOBIN 33.3 pg (25.0-35.0); MEAN PLATELET VOLUME 12.4 fl (7.0-11.0); RBC 3.09 10^6/uL (3.5-6.1); RED CELL DISTRIBUTION WIDTH 16.4 % (11.5-14.5); WHITE BLOOD COUNT 6.5 10^3/ul (4.5-11.0)
[2018-04-15 10:17] LABS: BLOOD UREA NITROGEN 29 mg/dL (7-21); CALCIUM 9.2 mg/dL (8.4-10.5); GFR AFRICAN-AMERICAN > 60; GFR NON-AFRICAN AMERICAN > 60
--- NOTE | 2018-04-15 10:57 | CP.PCM.PN ---
<Obie Velazquez - Last Filed: 04/15/18 10:58> Subjective - Date & Time of Evaluation Date of Evaluation: 04/15/18 Time of Evaluation: 06:00 - Subjective Subjective: Patient seen and evaluated bedside. No acute issues overnight. Patient complaining of some soreness in throat but improving and tolerating liquid diet well. Denies chest pain, shortness of breath, fever, chills or any other complaints at this time. Objective - Vital Signs/Intake and Output Vital Signs (last 24 hours): Temp Pulse Resp BP Pulse Ox 98.2 F 60 20 134/75 97 04/15/18 06:00 04/15/18 06:00 04/15/18 06:00 04/15/18 06:00 04/15/18 06:00 Intake and Output: 04/15/18 04/15/18 06:59 18:59 Intake Total 540 Output Total 400 Balance 140 - Medications Medications: Current Medications Ascorbic Acid (Vitamin C 500 Mg Tab) 1,000 mg PO BID [facility] Last Admin: 04/14/18 18:20 Dose: 1,000 mg Cholecalciferol (Vitamin D) 2,000 intlu PO DAILY [facility] Last Admin: 04/14/18 10:03 Dose: Not Given Cyanocobalamin (Vitamin B12 1000 Mcg Tab) 1,000 mcg PO DAILY [facility] Last Admin: 04/14/18 12:15 Dose: 1,000 mcg Lactulose (Enulose) 20 gm PO [facility] Last Admin: 04/14/18 21:53 Dose: Not Given Midodrine (Proamatine) 10 mg PO TID [facility] Last Admin: 04/14/18 18:19 Dose: 10 mg Octreotide Acetate (Sandostatin) 100 mcg SC TID [facility] Last Admin: 04/14/18 18:15 Dose: Not Given Ondansetron HCl (Zofran Inj) 4 mg IVP Q6H PRN PRN Reason: Nausea/Vomiting Last Admin: 04/15/18 00:40 Dose: 4 mg Propranolol HCl (Inderal) 10 mg PO BID [facility] Last Admin: 04/14/18 18:19 Dose: 10 mg Tramadol HCl (Ultram) 50 mg PO TID PRN PRN Reason: Pain, moderate (4-7) Last Admin: 04/15/18 04:42 Dose: 50 mg Vitamin A (Vitamin A & D Oint Ud Foilpak) 1 ea TOP Q2 PRN PRN Reason: Dry mouth - Labs Labs: 04/15/18 10:01 04/15/18 10:01 PT 18.8 SECONDS (9.4-12.5) H 04/15/18 06:30 INR 1.62 (0.93-1.08) H 04/15/18 06:30 APTT 34.6 Seconds (25.1-36.5) 04/11/18 02:15 - Constitutional Appears: Non-toxic, No Acute Distress, Chronically Ill - Head Exam Head Exam: ATRAUMATIC, NORMAL INSPECTION, NORMOCEPHALIC - Eye Exam Eye Exam: Normal appearance - ENT Exam ENT Exam: Mucous Membranes Moist - Respiratory Exam Respiratory Exam: Clear to Ausculation Bilateral, NORMAL BREATHING PATTERN - Cardiovascular Exam Cardiovascular Exam: REGULAR RHYTHM, +S1, +S2 - GI/Abdominal Exam GI & Abdominal Exam: Soft, Tenderness - Extremities Exam Extremities Exam: absent: Pedal Edema - Neurological Exam Neurological Exam: Alert, Awake, Oriented x3 Assessment and Plan - Assessment and Plan (Free Text) Assessment: 63 year old male with a past medical history significant for HTN, diastolic CHF , Atrial Fibrillation s/p cardioversion, CKD stage 3B, non-alcoholic liver cirrhosis of unclear etiology, hepatic encephalopathy, chronic ascites, esophageal varices s/p banding, and GERD who presented with three days of nausea , vomiting, hematemesis, dysphagia, blood tinged stools and intermittent SOB. Plan: Dysphagia with Hematemesis, hx of esophageal varices - no episodes of hematemesis in last 24 hours - VS and H/H stable at this time - Octreotide 100mcg SC TID - Zofran - advanced diet to pureed low sodium - monitor H/H - GI consulted, all recommendations appreciated EGD grade 2 varices, banded, started on propanolol Right Pleural Effusion - Chest X-ray showing right sided pleural effusion - CT abdomen/pelvis: 1. Cirrhosis with portal hypertension. 2. Right pleural effusion with compressive atelectasis. Superimposed pneumonia not excluded. - ID consulted, follow recs - abx discontinued Cirrhosis of Liver with ascites - patient had 6.[address] Crespo paracentesis on 04/11 - paracentesis: Total Cell Count 100, WBC: 45, Neurophils: 13.2 - low suspicion for SBP - patient has been afebrile throughout hospital course KEYUR on CKD - Improving today Cr 1.2 back to baseline - Continue to monitor with daily CMP's - Hold all nephrotoxic agents - nephro, consulted, Mughni follow recs - hold diuretics, may resume per nephro in near term Hypotension-resolved -Midodrine 10mg PO TID -continue to monitor Prophylactic Care DVT Prophylaxis: SCD's Physical Therapy will follow up today <Otto Mccloud - Last Filed: 04/15/18 11:06> Objective - Vital Signs/Intake and Output Vital Signs (last 24 hours): Temp Pulse Resp BP Pulse Ox 98.2 F 60 20 134/75 97 04/15/18 06:00 04/15/18 06:00 04/15/18 06:00 04/15/18 06:00 04/15/18 06:00 Intake and Output: 04/15/18 04/15/18 06:59 18:59 Intake Total 540 Output Total 400 Balance 140 - Medications Medications: Current Medications Ascorbic Acid (Vitamin C 500 Mg Tab) 1,000 mg PO BID [facility] Last Admin: 04/14/18 18:20 Dose: 1,000 mg Cholecalciferol (Vitamin D) 2,000 intlu PO DAILY [facility] Last Admin: 04/14/18 10:03 Dose: Not Given Cyanocobalamin (Vitamin B12 1000 Mcg Tab) 1,000 mcg PO DAILY [facility] Last Admin: 04/14/18 12:15 Dose: 1,000 mcg Lactulose (Enulose) 20 gm PO HS [facility] Last Admin: 04/14/18 21:53 Dose: Not Given Midodrine (Proamatine) 10 mg PO TID [facility] Last Admin: 04/14/18 18:19 Dose: 10 mg Octreotide Acetate (Sandostatin) 100 mcg SC TID [facility] Last Admin: 04/14/18 18:15 Dose: Not Given Ondansetron HCl (Zofran Inj) 4 mg IVP Q6H PRN PRN Reason: Nausea/Vomiting Last Admin: 04/15/18 00:40 Dose: 4 mg Propranolol HCl (Inderal) 10 mg PO BID [facility] Last Admin: 04/14/18 18:19 Dose: 10 mg Tramadol HCl (Ultram) 50 mg PO TID PRN PRN Reason: Pain, moderate (4-7) Last Admin: 04/15/18 04:42 Dose: 50 mg Vitamin A (Vitamin A & D Oint Ud Foilpak) 1 ea TOP Q2 PRN PRN Reason: Dry mouth - Labs Labs: 04/15/18 10:01 04/15/18 10:01 PT 18.8 SECONDS (9.4-12.5) H 04/15/18 06:30 INR 1.62 (0.93-1.08) H 04/15/18 06:30 APTT 34.6 Seconds (25.1-36.5) 04/11/18 02:15 Attending/Attestation - Attestation I have personally seen and examined this patient.: Yes I have fully participated in the care of the patient.: Yes I have reviewed all pertinent clinical information, including history, physical exam and plan: Yes Notes (Text): 04/15/18 11:04 63 year old male with past medical history of hypertension, afib s/p cardioversion, CKD, non-alcoholic liver cirrhosis, ascites, and esophageal varices s/p banding who presented with complaint of abdominal hematemesis, dysphagia, abdominal distention and dyspnea. CT abd/pelvis showed large ascites and moderate right pleural effusion. He was seen by IR and is s/p paracentesis. He was started on albumin, octreotide and midodrine. Nephrology is also following for acute on chronic renal failure which has now resolved. Will discuss with nephrology regarding when his lasix can be resumed. He is also being followed by GI for dysphagia. He is s/p EGD yesterday which showed grade 2 esophageal varices s/p banding. Will need repeat EGD in 2 months. Patient complains of generalized weakness. PT follow up requested for d/c planning. Otto Mccloud MD Hospitalist.
[2018-04-15] MEDS: Cholecalciferol 1,000 INTLU TAB PO SCH (12:20)
--- NOTE | 2018-04-15 19:21 | PN ---
DATE: 04/15/2018 SUBJECTIVE: Patient is seen earlier this morning in room 563, bed 2. No fevers and no chills. PHYSICAL EXAMINATION: VITAL SIGNS: Temperature is 98, blood pressure is 150/60, respiratory rate of 20, heart rate of 82. HEENT: Unremarkable. NECK: Supple. LUNGS: Decreased breath sounds. HEART: Normal S1, S2. ABDOMEN: Soft, nontender. LABORATORY DATA: Reveals the patient's white count is 6.5, hemoglobin of 10, platelets of 91. Chemistry reveals BUN of 29, creatinine of 1.2, procalcitonin is 0.37. Urinalysis is noted. Microbiology reveals __01:13___ no growth. Review of orders reveals the patient to be off of antibiotics. ASSESSMENT AND PLAN: This is a 63-year-old male seen earlier this morning in 563, bed 2, was chronically ill and end stage with ascites without any evidence of spontaneous bacterial peritonitis, upper gastrointestinal bleed with variceal bleeding, status post endoscopy with a history of spontaneous bacterial peritonitis and nonalcoholic steatohepatitis, atrial fibrillation, renal failure. Currently off of antibiotics, afebrile, and at risk for developing nosocomial infection. The patient with moderate aortic stenosis, moderate tricuspid regurgitation, cirrhosis of the liver and admitted with abdominal pain, hematemesis, cirrhosis and we will follow closely with you. Patient is at risk for developing nosocomial infections. Bravo Christensen MD
--- NOTE | 2018-04-15 19:40 | CP.PCM.PN ---
Subjective - Date & Time of Evaluation Date of Evaluation: 04/15/18 Time of Evaluation: 11:00 - Subjective Subjective: Patient still reporting dysphagia, starting liquid diet; no sob; Objective - Vital Signs/Intake and Output Vital Signs (last 24 hours): Temp Pulse Resp BP Pulse Ox 98.3 F 87 20 136/100 H 99 04/15/18 14:00 04/15/18 18:15 04/15/18 14:00 04/15/18 18:15 04/15/18 14:00 - Medications Medications: Current Medications Ascorbic Acid (Vitamin C 500 Mg Tab) 1,000 mg PO BID [facility] Last Admin: 04/15/18 18:15 Dose: 1,000 mg Cholecalciferol (Vitamin D) 2,000 intlu PO DAILY [facility] Last Admin: 04/15/18 12:20 Dose: 2,000 intlu Cyanocobalamin (Vitamin B12 1000 Mcg Tab) 1,000 mcg PO DAILY [facility] Last Admin: 04/15/18 12:21 Dose: 1,000 mcg Lactulose (Enulose) 20 gm PO [facility] Last Admin: 04/14/18 21:53 Dose: Not Given Midodrine (Proamatine) 10 mg PO TID [facility] Last Admin: 04/15/18 18:16 Dose: 10 mg Octreotide Acetate (Sandostatin) 100 mcg SC TID [facility] Last Admin: 04/15/18 18:10 Dose: Not Given Ondansetron HCl (Zofran Inj) 4 mg IVP Q6H PRN PRN Reason: Nausea/Vomiting Last Admin: 04/15/18 00:40 Dose: 4 mg Propranolol HCl (Inderal) 10 mg PO BID [facility] Last Admin: 04/15/18 18:15 Dose: 10 mg Torsemide (Demadex) 10 mg PO DAILY [facility] Tramadol HCl (Ultram) 50 mg PO TID PRN PRN Reason: Pain, moderate (4-7) Last Admin: 04/15/18 18:13 Dose: 50 mg Vitamin A (Vitamin A & D Oint Ud Foilpak) 1 ea TOP Q2 PRN PRN Reason: Dry mouth - Labs Labs: 04/15/18 10:01 04/15/18 10:01 PT 18.8 SECONDS (9.4-12.5) H 04/15/18 06:30 INR 1.62 (0.93-1.08) H 04/15/18 06:30 APTT 34.6 Seconds (25.1-36.5) 04/11/18 02:15 - Constitutional Appears: Non-toxic, No Acute Distress - Eye Exam Eye Exam: Normal appearance - ENT Exam ENT Exam: Mucous Membranes Moist - Respiratory Exam Respiratory Exam: Clear to Ausculation Bilateral. absent: Respiratory Distress Additional comments: decreased sounds at R base - Cardiovascular Exam Cardiovascular Exam: RRR, +S1, +S2 - GI/Abdominal Exam GI & Abdominal Exam: Soft, Tenderness - Extremities Exam Additional comments: no leg edema - Neurological Exam Neurological Exam: Alert, Awake - Psychiatric Exam Psychiatric exam: Normal Mood. absent: Agitated - Skin Skin Exam: Warm. absent: Cyanosis Assessment and Plan (1) Acute renal failure Assessment & Plan: KEYUR on CKD IIIA; pre-renal etiology resolved; patient very sensitive to diuretics being used to prevent ascites re-accumulation; will need much higher doses to achieve this goal and can expect significantly higher serum creatinine ; should have regularly scheduled abdominal paracentesis; can try small dose of longer acting diuretic, torsemide 10 mg daily, once patient is having adequate diet; Status: Acute (2) Hypotension Assessment & Plan: Asyptomatic, on midodrine 10 tid, continue; Status: Acute (3) Anemia Assessment & Plan: Hgb stable, monitor; no need for EPO yet; Status: Chronic (4) Cirrhosis of liver with ascites Assessment & Plan: See above; Status: Chronic
[2018-04-16 08:00] LABS: INR 1.52 (0.93-1.08); PROTHROMBIN TIME 17.6 SECONDS (9.4-12.5)
[2018-04-16 10:02] LABS: BLOOD UREA NITROGEN 24 mg/dL (7-21); CALCIUM 9.2 mg/dL (8.4-10.5); GFR AFRICAN-AMERICAN > 60; GFR NON-AFRICAN AMERICAN > 60
[2018-04-16] MEDS: Cholecalciferol 1,000 INTLU TAB PO SCH (11:04)
--- NOTE | 2018-04-16 11:12 | CP.PCM.PN ---
<Obie Velazquez - Last Filed: 04/16/18 11:09> Subjective - Date & Time of Evaluation Date of Evaluation: 04/16/18 Time of Evaluation: 06:00 - Subjective Subjective: Patient seen and evaluated bedside. No acute issues overnight. Patient still complaining of discomfort in esophagus. Denies weakness, chest pain, SOB, fever , chills or any other complaints at this time. Objective - Vital Signs/Intake and Output Vital Signs (last 24 hours): Temp Pulse Resp BP Pulse Ox 98.2 F 58 L 20 122/74 97 04/16/18 06:00 04/16/18 06:00 04/16/18 06:00 04/16/18 06:00 04/16/18 06:00 Intake and Output: 04/16/18 04/16/18 06:59 18:59 Intake Total 660 Output Total 525 Balance 135 - Medications Medications: Current Medications Ascorbic Acid (Vitamin C 500 Mg Tab) 1,000 mg PO BID [facility] Last Admin: 04/15/18 18:15 Dose: 1,000 mg Cholecalciferol (Vitamin D) 2,000 intlu PO DAILY [facility] Last Admin: 04/15/18 12:20 Dose: 2,000 intlu Cyanocobalamin (Vitamin B12 1000 Mcg Tab) 1,000 mcg PO DAILY [facility] Last Admin: 04/15/18 12:21 Dose: 1,000 mcg Lactulose (Enulose) 20 gm PO [facility] Last Admin: 04/15/18 21:01 Dose: Not Given Midodrine (Proamatine) 10 mg PO TID [facility] Last Admin: 04/15/18 18:16 Dose: 10 mg Octreotide Acetate (Sandostatin) 100 mcg SC TID [facility] Last Admin: 04/15/18 18:10 Dose: Not Given Ondansetron HCl (Zofran Inj) 4 mg IVP Q6H PRN PRN Reason: Nausea/Vomiting Last Admin: 04/15/18 00:40 Dose: 4 mg Propranolol HCl (Inderal) 10 mg PO BID [facility] Last Admin: 04/15/18 18:15 Dose: 10 mg Torsemide (Demadex) 10 mg PO DAILY [facility] Tramadol HCl (Ultram) 50 mg PO TID PRN PRN Reason: Pain, moderate (4-7) Last Admin: 04/16/18 00:14 Dose: 50 mg Vitamin A (Vitamin A & D Oint Ud Foilpak) 1 ea TOP Q2 PRN PRN Reason: Dry mouth - Labs Labs: 04/15/18 10:01 04/16/18 09:44 PT 17.6 SECONDS (9.4-12.5) H 04/16/18 07:00 INR 1.52 (0.93-1.08) H 04/16/18 07:00 APTT 34.6 Seconds (25.1-36.5) 04/11/18 02:15 - Constitutional Appears: Non-toxic, No Acute Distress, Chronically Ill - Head Exam Head Exam: ATRAUMATIC, NORMAL INSPECTION, NORMOCEPHALIC - Eye Exam Eye Exam: EOMI, Normal appearance - ENT Exam ENT Exam: Mucous Membranes Moist - Respiratory Exam Respiratory Exam: Clear to Ausculation Bilateral, NORMAL BREATHING PATTERN - Cardiovascular Exam Cardiovascular Exam: REGULAR RHYTHM, +S1, +S2 - GI/Abdominal Exam GI & Abdominal Exam: Soft, Tenderness - Extremities Exam Extremities Exam: absent: Pedal Edema, Tenderness - Neurological Exam Neurological Exam: Alert, Awake, Oriented x3 Assessment and Plan - Assessment and Plan (Free Text) Assessment: 63 year old male with a past medical history significant for HTN, diastolic CHF , Atrial Fibrillation s/p cardioversion, CKD stage 3B, non-alcoholic liver cirrhosis of unclear etiology, hepatic encephalopathy, chronic ascites, esophageal varices s/p banding, and GERD who presented with three days of nausea , vomiting, hematemesis, dysphagia, blood tinged stools and intermittent SOB. Plan: Dysphagia with Hematemesis, hx of esophageal varices - no episodes of hematemesis in last 24 hours - VS and H/H stable at this time - Octreotide 100mcg SC TID - Zofran - pureed low sodium diet - monitor H/H - GI consulted, all recommendations appreciated EGD grade 2 varices, banded, started on propanolol Right Pleural Effusion - Chest X-ray showing right sided pleural effusion - CT abdomen/pelvis: 1. Cirrhosis with portal hypertension. 2. Right pleural effusion with compressive atelectasis. Superimposed pneumonia not excluded. - ID consulted, follow recs - abx discontinued Cirrhosis of Liver with ascites - patient had 6.[address] Crespo paracentesis on 04/11 - paracentesis: Total Cell Count 100, WBC: 45, Neurophils: 13.2 - low suspicion for SBP - patient has been afebrile throughout hospital course KEYUR on CKD - Improving today Cr 1.1 back to baseline - Continue to monitor with daily CMP's - Hold all nephrotoxic agents - nephro, consulted, Mugdelmeri follow recs - started on torsemide Hypotension-resolved -Midodrine 10mg PO TID -continue to monitor Prophylactic Care DVT Prophylaxis: SCD's Physical Therapy will follow up to asses disposition <Otto Mccloud - Last Filed: 04/16/18 11:23> Objective - Vital Signs/Intake and Output Vital Signs (last 24 hours): Temp Pulse Resp BP Pulse Ox 98.2 F 58 L 20 122/74 97 04/16/18 06:00 04/16/18 06:00 04/16/18 06:00 04/16/18 06:00 04/16/18 06:00 Intake and Output: 04/16/18 04/16/18 06:59 18:59 Intake Total 660 Output Total 525 Balance 135 - Medications Medications: Current Medications Ascorbic Acid (Vitamin C 500 Mg Tab) 1,000 mg PO BID [facility] Last Admin: 04/15/18 18:15 Dose: 1,000 mg Cholecalciferol (Vitamin D) 2,000 intlu PO DAILY [facility] Last Admin: 04/15/18 12:20 Dose: 2,000 intlu Cyanocobalamin (Vitamin B12 1000 Mcg Tab) 1,000 mcg PO DAILY [facility] Last Admin: 04/15/18 12:21 Dose: 1,000 mcg Lactulose (Enulose) 20 gm PO HS [facility] Last Admin: 04/15/18 21:01 Dose: Not Given Midodrine (Proamatine) 10 mg PO TID [facility] Last Admin: 04/15/18 18:16 Dose: 10 mg Octreotide Acetate (Sandostatin) 100 mcg SC TID [facility] Last Admin: 04/15/18 18:10 Dose: Not Given Ondansetron HCl (Zofran Inj) 4 mg IVP Q6H PRN PRN Reason: Nausea/Vomiting Last Admin: 04/15/18 00:40 Dose: 4 mg Propranolol HCl (Inderal) 10 mg PO BID [facility] Last Admin: 04/15/18 18:15 Dose: 10 mg Torsemide (Demadex) 10 mg PO DAILY [facility] Tramadol HCl (Ultram) 50 mg PO TID PRN PRN Reason: Pain, moderate (4-7) Last Admin: 04/16/18 00:14 Dose: 50 mg Vitamin A (Vitamin A & D Oint Ud Foilpak) 1 ea TOP Q2 PRN PRN Reason: Dry mouth - Labs Labs: 04/15/18 10:01 04/16/18 09:44 PT 17.6 SECONDS (9.4-12.5) H 04/16/18 07:00 INR 1.52 (0.93-1.08) H 04/16/18 07:00 APTT 34.6 Seconds (25.1-36.5) 04/11/18 02:15 Attending/Attestation - Attestation I have personally seen and examined this patient.: Yes I have fully participated in the care of the patient.: Yes I have reviewed all pertinent clinical information, including history, physical exam and plan: Yes Notes (Text): 04/16/18 11:20 63 year old male with past medical history of hypertension, afib s/p cardioversion, CKD, non-alcoholic liver cirrhosis, ascites, and esophageal varices s/p banding who presented with complaint of abdominal hematemesis, dysphagia, abdominal distention and dyspnea. CT abd/pelvis showed large ascites and moderate right pleural effusion. He was seen by IR and is s/p paracentesis. He was started on albumin, octreotide and midodrine. Nephrology is also following for acute on chronic renal failure which has now resolved. He was started on torsemide. He was also seen by GI for dysphagia. He is s/p EGD on Tuesday which showed grade 2 esophageal varices s/p banding. Will need repeat EGD in 2 months. Patient complains of generalized weakness. PT follow up was requested for d/c planning. Otto Mccloud MD Hospitalist.
--- NOTE | 2018-04-16 11:36 | PN ---
DATE: 04/16/2018 SUBJECTIVE: The patient is in bed in no acute distress, nontoxic. OBJECTIVE: VITAL SIGNS: On exam, temperature is 98, blood pressure is 130/100, respiratory rate of 20, heart rate of 58. HEENT: Examination is unremarkable. NECK: Supple. LUNGS: Have decreased breath sounds. HEART: Normal S1, S2. ABDOMEN: Soft. DATA: Laboratory examination reveals a white count of 6.5, hemoglobin of 10, platelets of 91. BUN of 24, creatinine of 1.1. Peritoneal fluid, 45 WBCs. Review of orders reveals the patient to be off of antibiotics. ASSESSMENT/PLAN: This is a 63-year-old who was seen earlier this morning, appearing chronically ill, obtunded. He is weak and states he has poor appetite. He has no evidence of spontaneous bacterial peritonitis. The patient does have upper gastrointestinal bleeding, variceal bleeding status post endoscopy and does have a history of spontaneous bacterial peritonitis and nonalcoholic steatohepatitis and atrial fibrillation renal failure, off of antibiotics, afebrile. He has got cirrhosis of the liver and moderate tricuspid regurgitation, moderate aortic stenosis, currently at the risk for developing nosocomial infections. Prognosis is poor. Bravo Christensen MD
[2018-04-17] MEDS: Cholecalciferol 1,000 INTLU TAB PO SCH (09:24)
--- NOTE | 2018-04-17 10:13 | PN ---
DATE: 04/17/2018 SUBJECTIVE: The patient is in bed, in no acute distress, nontoxic. PHYSICAL EXAMINATION VITAL SIGNS: Temperature is 98, blood pressure is 112/70, respiratory rate of 16. HEENT: Examination of HEENT is unremarkable. NECK: Supple. LUNGS: Have decreased breath sounds. HEART: Normal S1, S2. ABDOMEN: Soft, nontender. LABORATORY DATA: Laboratory examination reveals the patient's white count is 6.5, hemoglobin of 10. Chemistries reveals a BUN of 24, creatinine of 1.1. Urinalysis is noted. ASSESSMENT AND PLAN: A 63-year-old seen earlier this morning was chronically ill and weak. No evidence of spontaneous bacterial peritonitis. The patient does have upper gastrointestinal bleeding and varices bleeding, status post endoscopy and history of spontaneous bacterial peritonitis currently. The patient with nonalcoholic hepatitis and atrial fibrillation and renal failure currently with cirrhosis of the liver, moderate tricuspid regurgitation, moderate aortic stenosis. Currently off of antibiotics, however, and the patient is at risk of developing nosocomial infections. Review of orders reveals the patient is off of antibiotics. Overall prognosis quite poor. Bravo Christensen MD
--- NOTE | 2018-04-17 10:49 | CP.PCM.PN ---
<Alvaro Allen - Last Filed: 04/17/18 10:46> Subjective - Date & Time of Evaluation Date of Evaluation: 04/17/18 Time of Evaluation: 10:47 - Subjective Subjective: PGY1 Medicine Note for Dr. Rosales Patient seen and examined at bedside this morning. No acute events overnight. Patient still having difficulty with swallowing but states he is feeling well. He has been able to get up and walk around with assistance of a walker. He feels like he is getting much stronger with each day. Denies fevers, chills, nausea, vomiting, diarrhea, constipation, chest pain, palpitations or abdominal pain. Objective - Vital Signs/Intake and Output Vital Signs (last 24 hours): Temp Pulse Resp BP Pulse Ox 98.2 F 55 L 18 110/56 L 98 04/17/18 08:08 04/17/18 09:26 04/17/18 08:08 04/17/18 09:26 04/17/18 08:08 Intake and Output: 04/17/18 04/17/18 06:59 18:59 Intake Total 660 Output Total 825 Balance -165 - Medications Medications: Current Medications Ascorbic Acid (Vitamin C 500 Mg Tab) 1,000 mg PO BID [facility] Last Admin: 04/17/18 09:23 Dose: 1,000 mg Cholecalciferol (Vitamin D) 2,000 intlu PO DAILY [facility] Last Admin: 04/17/18 09:24 Dose: 2,000 intlu Cyanocobalamin (Vitamin B12 1000 Mcg Tab) 1,000 mcg PO DAILY [facility] Last Admin: 04/17/18 09:25 Dose: 1,000 mcg Lactulose (Enulose) 20 gm PO DAILY [facility] Last Admin: 04/17/18 09:23 Dose: 20 gm Midodrine (Proamatine) 10 mg PO TID [facility] Last Admin: 04/17/18 09:24 Dose: 10 mg Octreotide Acetate (Sandostatin) 100 mcg SC TID [facility] Last Admin: 04/17/18 09:25 Dose: Not Given Ondansetron HCl (Zofran Inj) 4 mg IVP Q6H PRN PRN Reason: Nausea/Vomiting Last Admin: 04/15/18 00:40 Dose: 4 mg Propranolol HCl (Inderal) 10 mg PO BID [facility] Last Admin: 04/17/18 09:26 Dose: Not Given Torsemide (Demadex) 10 mg PO DAILY [facility] Last Admin: 04/17/18 10:39 Dose: 10 mg Tramadol HCl (Ultram) 50 mg PO TID PRN PRN Reason: Pain, moderate (4-7) Last Admin: 04/16/18 20:48 Dose: 50 mg Vitamin A (Vitamin A & D Oint Ud Foilpak) 1 ea TOP Q2 PRN PRN Reason: Dry mouth - Labs Labs: 04/15/18 10:01 04/16/18 09:44 PT 17.6 SECONDS (9.4-12.5) H 04/16/18 07:00 INR 1.52 (0.93-1.08) H 04/16/18 07:00 APTT 34.6 Seconds (25.1-36.5) 04/11/18 02:15 - Constitutional Appears: Non-toxic, No Acute Distress, Chronically Ill - Head Exam Head Exam: ATRAUMATIC, NORMOCEPHALIC - Eye Exam Eye Exam: Normal appearance - ENT Exam ENT Exam: Mucous Membranes Moist - Respiratory Exam Respiratory Exam: Clear to Ausculation Bilateral, NORMAL BREATHING PATTERN. absent: Rales, Rhonchi, Wheezes, Respiratory Distress - Cardiovascular Exam Cardiovascular Exam: REGULAR RHYTHM, +S1, +S2 - GI/Abdominal Exam GI & Abdominal Exam: Soft. absent: Distended, Firm, Guarding, Rigid, Tenderness - Extremities Exam Extremities Exam: absent: Calf Tenderness, Pedal Edema - Neurological Exam Neurological Exam: Alert, Awake, CN II-XII Intact, Oriented x3 - Psychiatric Exam Psychiatric exam: Normal Affect, Normal Mood - Skin Skin Exam: Dry, Warm Assessment and Plan - Assessment and Plan (Free Text) Assessment: 63 year old male with a past medical history significant for HTN, diastolic CHF , Atrial Fibrillation s/p cardioversion, CKD stage 3B, non-alcoholic liver cirrhosis of unclear etiology, hepatic encephalopathy, chronic ascites, esophageal varices s/p banding, and GERD who presented with three days of nausea , vomiting, hematemesis, dysphagia, blood tinged stools and intermittent SOB. Plan: Dysphagia with Hematemesis, hx of esophageal varices - VS and H/H stable at this time - Protonix 40mg IVP Q12 - Octreotide 100mcg SC TID - Zofran 4mg IVP q6h prn - pureed, low sodium diet - monitor H/H - GI consulted, all recommendations appreciated - EGD 04/14 - grade 2 varices, banded x2, started on propanolol - repeat EGD in 2 months Right Pleural Effusion - Chest X-ray showing right sided pleural effusion - CT abdomen/pelvis: 1. Cirrhosis with portal hypertension. 2. Right pleural effusion with compressive atelectasis. Superimposed pneumonia not excluded. - ID consulted, follow recs - procalcitonin .37 Cirrhosis of Liver with ascites - patient had 6.[address] Crespo paracentesis on 04/11 - paracentesis: Total Cell Count 100, WBC: 45, Neurophils: 13.2 - low suspicion for SBP - patient has been afebrile throughout hospital course * No indication for abx - Lactulose 20gm PO daily KEYUR on CKD - Creatinine elevated from baseline - Improving Cr 1.1 (04/16) - Continue to monitor with daily CMP's - Hold all nephrotoxic agents - nephro, consulted, Mughni follow recs - IV albumin per nephro Hypotension Midodrine 10mg PO TID continue to monitor Prophylactic Care GI Prophylaxis: Protonix IVP DVT Prophylaxis: SCD's DISPO: PT recommends NONA. Per SW note, patient has been approved for 5 days of NONA. Discuss with SW NONA placement. Case discussed with Dr. Bobby Bahn PGY1 <Felicita Rosales - Last Filed: 04/17/18 13:50> Objective - Vital Signs/Intake and Output Vital Signs (last 24 hours): Temp Pulse Resp BP Pulse Ox 98.2 F 55 L 18 110/56 L 98 04/17/18 08:08 04/17/18 09:26 04/17/18 08:08 04/17/18 09:26 04/17/18 08:08 Intake and Output: 04/17/18 04/17/18 06:59 18:59 Intake Total 660 Output Total 825 Balance -165 - Medications Medications: Current Medications Ascorbic Acid (Vitamin C 500 Mg Tab) 1,000 mg PO BID [facility] Last Admin: 04/17/18 09:23 Dose: 1,000 mg Cholecalciferol (Vitamin D) 2,000 intlu PO DAILY [facility] Last Admin: 04/17/18 09:24 Dose: 2,000 intlu Cyanocobalamin (Vitamin B12 1000 Mcg Tab) 1,000 mcg PO DAILY [facility] Last Admin: 04/17/18 09:25 Dose: 1,000 mcg Lactulose (Enulose) 20 gm PO DAILY [facility] Last Admin: 04/17/18 09:23 Dose: 20 gm Midodrine (Proamatine) 10 mg PO TID [facility] Last Admin: 04/17/18 13:11 Dose: 10 mg Octreotide Acetate (Sandostatin) 100 mcg SC TID [facility] Last Admin: 04/17/18 13:11 Dose: Not Given Ondansetron HCl (Zofran Inj) 4 mg IVP Q6H PRN PRN Reason: Nausea/Vomiting Last Admin: 04/15/18 00:40 Dose: 4 mg Propranolol HCl (Inderal) 10 mg PO BID [facility] Last Admin: 04/17/18 09:26 Dose: Not Given Torsemide (Demadex) 10 mg PO DAILY [facility] Last Admin: 04/17/18 10:39 Dose: 10 mg Tramadol HCl (Ultram) 50 mg PO TID PRN PRN Reason: Pain, moderate (4-7) Last Admin: 04/16/18 20:48 Dose: 50 mg Vitamin A (Vitamin A & D Oint Ud Foilpak) 1 ea TOP Q2 PRN PRN Reason: Dry mouth - Labs Labs: 04/15/18 10:01 04/16/18 09:44 PT 17.6 SECONDS (9.4-12.5) H 04/16/18 07:00 INR 1.52 (0.93-1.08) H 04/16/18 07:00 APTT 34.6 Seconds (25.1-36.5) 04/11/18 02:15 Attending/Attestation - Attestation I have personally seen and examined this patient.: Yes I have fully participated in the care of the patient.: Yes I have reviewed all pertinent clinical information, including history, physical exam and plan: Yes Notes (Text): 04/17/18 13:44 Attending note; Patient seen and examined with resident. Patient is a 63 year old male with past medical history of hypertension, afib s/ p cardioversion, CKD, non-alcoholic liver cirrhosis, ascites, and esophageal varices s/p banding who presented with complaint of hematemesis, dysphagia, abdominal distention and dyspnea. CT abd/pelvis showed large ascites and moderate right pleural effusion. He was seen by IR and is s/p paracentesis. He is on octreotide and midodrine. Continue propranolol. acute on chronic renal failure which has now resolved. He was started on torsemide. Nephrology evaluation appreciated. He was also seen by GI for dysphagia. He is s/p EGD on Tuesday which showed grade 2 esophageal varices s/p banding. Will need repeat EGD in 2 months. Patient complains of generalized weakness. Physical therapy evaluation appreciated. Subacute rehabilitation placement recommended. Will discuss with bottle caser/executive secretary social welfare for discharge planning. Upon discharge the patient will follow-up with PMD DR. Bishop. Patient also needs close follow-up with [facility]. 04/17/18 13:50
--- NOTE | 2018-04-17 17:17 | CP.PCM.PN ---
Subjective - Date & Time of Evaluation Date of Evaluation: 04/17/18 Time of Evaluation: 12:00 - Subjective Subjective: Patient still complaining of dysphagia; no nausea/vomiting or sob; urinating abundantly since starting diuretics; Objective - Vital Signs/Intake and Output Vital Signs (last 24 hours): Temp Pulse Resp BP Pulse Ox 98.1 F 70 18 101/58 L 100 04/17/18 14:00 04/17/18 14:00 04/17/18 14:00 04/17/18 14:00 04/17/18 14:00 Intake and Output: 04/17/18 04/17/18 06:59 18:59 Intake Total 660 360 Output Total 825 Balance -165 360 - Medications Medications: Current Medications Ascorbic Acid (Vitamin C 500 Mg Tab) 1,000 mg PO BID [facility] Last Admin: 04/17/18 09:23 Dose: 1,000 mg Cholecalciferol (Vitamin D) 2,000 intlu PO DAILY [facility] Last Admin: 04/17/18 09:24 Dose: 2,000 intlu Cyanocobalamin (Vitamin B12 1000 Mcg Tab) 1,000 mcg PO DAILY [facility] Last Admin: 04/17/18 09:25 Dose: 1,000 mcg Lactulose (Enulose) 20 gm PO DAILY [facility] Last Admin: 04/17/18 09:23 Dose: 20 gm Midodrine (Proamatine) 10 mg PO TID [facility] Last Admin: 04/17/18 13:11 Dose: 10 mg Octreotide Acetate (Sandostatin) 100 mcg SC TID [facility] Last Admin: 04/17/18 13:11 Dose: Not Given Ondansetron HCl (Zofran Inj) 4 mg IVP Q6H PRN PRN Reason: Nausea/Vomiting Last Admin: 04/15/18 00:40 Dose: 4 mg Propranolol HCl (Inderal) 10 mg PO BID [facility] Last Admin: 04/17/18 09:26 Dose: Not Given Torsemide (Demadex) 10 mg PO DAILY [facility] Last Admin: 04/17/18 10:39 Dose: 10 mg Tramadol HCl (Ultram) 50 mg PO TID PRN PRN Reason: Pain, moderate (4-7) Last Admin: 04/16/18 20:48 Dose: 50 mg Vitamin A (Vitamin A & D Oint Ud Foilpak) 1 ea TOP Q2 PRN PRN Reason: Dry mouth - Labs Labs: 04/15/18 10:01 04/16/18 09:44 PT 17.6 SECONDS (9.4-12.5) H 04/16/18 07:00 INR 1.52 (0.93-1.08) H 04/16/18 07:00 APTT 34.6 Seconds (25.1-36.5) 04/11/18 02:15 - Constitutional Appears: Non-toxic, No Acute Distress, Cachectic - Eye Exam Eye Exam: Normal appearance - ENT Exam ENT Exam: Mucous Membranes Moist - Respiratory Exam Respiratory Exam: absent: Respiratory Distress Additional comments: mild basal rales; - Cardiovascular Exam Cardiovascular Exam: RRR, +S1, +S2 - GI/Abdominal Exam GI & Abdominal Exam: Distended, Soft, Tenderness - Extremities Exam Additional comments: no leg edema; - Neurological Exam Neurological Exam: Alert, Awake - Psychiatric Exam Psychiatric exam: Normal Mood. absent: Agitated - Skin Skin Exam: Warm. absent: Cyanosis Assessment and Plan (1) CKD (chronic kidney disease), stage III Assessment & Plan: Mild renal insufficiency but very sensitive to diuretics; will need to tolerate higher serum creatinine to help control ascites buildup; started on torsemide 10 mg daily, will check chem panel tomorrow; Status: Chronic (2) Acute renal failure Status: Resolved (3) Hypotension Assessment & Plan: BP relatively stable; continue propranolol to decrease portal pressure; continue midodrine 10 mg tid; Status: Acute (4) Anemia Status: Chronic (5) Cirrhosis of liver with ascites Assessment & Plan: With recurrent ascites buildup; will need periodic paracentesis despite being on diuretics; will add low dose aldactone if renal function stable tomorrow; Status: Chronic
[2018-04-18 07:18] LABS: ALBUMIN 4.2 g/dL (3.0-4.8); CALCIUM 9.7 mg/dL (8.4-10.5)
[2018-04-18] MEDS: Cholecalciferol 1,000 INTLU TAB PO SCH (09:51)
[2018-04-18] MEDS ORDERED: Aluminum Hydroxide/Magnesium 30 ML, DiphenhydrAMINE 75 MG, Lidocaine 2% Viscous 30 ML PO PRN (10:50)
[2018-04-18 14:45] VITALS: RESP 18
--- NOTE | 2018-04-18 15:23 | CP.PCM.DIS ---
<Cherie Hernández - Last Filed: 04/18/18 15:33> Provider - Provider Date of Admission: 04/11/18 05:05 Attending physician: Felicita Rosales MD Primary care physician: Surinder Bishop MD Consults: Nephrology ID [id number] IR Time Spent in preparation of Discharge (in minutes): 35 Hospital Course - Lab Results Lab Results: Micro Results 04/11/18 17:25 Ascitic Fluid Anaerobic Culture - Final NO ANAEROBES ISOLATED. 04/11/18 17:25 Ascitic Fluid Body Fluid Culture - Final No growth. 04/11/18 17:25 Ascitic Fluid Fungal Culture - Preliminary Most Recent Lab Values WBC 6.5 10^3/ul (4.5-11.0) 04/15/18 10:01 RBC 3.09 10^6/uL (3.5-6.1) L 04/15/18 10:01 Hgb 10.3 g/dL (14.0-18.0) L 04/15/18 10:01 Hct 30.3 % (42.0-52.0) L 04/15/18 10:01 MCV 98.1 fl (80.0-105.0) 04/15/18 10:01 MCH 33.3 pg (25.0-35.0) 04/15/18 10:01 MCHC 34.0 g/dl (31.0-37.0) 04/15/18 10:01 RDW 16.4 % (11.5-14.5) H 04/15/18 10:01 Plt Count 91 10^3/uL (120.0-450.0) L 04/15/18 10:01 MPV 12.4 fl (7.0-11.0) H 04/15/18 10:01 Gran % 46.0 % (50.0-68.0) L 04/14/18 06:15 Lymph % (Auto) 14.0 % (22.0-35.0) L 04/14/18 06:15 [place] % (Auto) 13.2 % (1.0-6.0) H 04/14/18 06:15 Eos % (Auto) 26.3 % (1.5-5.0) H 04/14/18 06:15 Baso % (Auto) 0.5 % (0.0-3.0) 04/14/18 06:15 Gran # 3.38 (1.4-6.5) 04/14/18 06:15 Lymph # (Auto) 1.0 (1.2-3.4) L 04/14/18 06:15 [place] # (Auto) 1.0 (0.1-0.6) H 04/14/18 06:15 Eos # (Auto) 1.9 (0.0-0.7) H 04/14/18 06:15 Baso # (Auto) 0.04 K/mm3 (0.0-2.0) 04/14/18 06:15 Neutrophils % (Manual) 29 % (50.0-70.0) L 04/12/18 06:30 Band Neutrophils % 5 % (0-2) H 04/11/18 02:15 Lymphocytes % (Manual) 12 % (22.0-35.0) L 04/12/18 06:30 Monocytes % (Manual) 7 % (1.0-6.0) H 04/12/18 06:30 Eosinophils % (Manual) 51 % (0.0-3.0) H 04/12/18 06:30 Basophils % (Manual) 1 % (0.0-1.0) 04/12/18 06:30 Platelet Evaluation Normal (NORMAL) 04/11/18 02:15 PT 17.6 SECONDS (9.4-12.5) H 04/16/18 07:00 INR 1.52 (0.93-1.08) H 04/16/18 07:00 APTT 34.6 Seconds (25.1-36.5) 04/11/18 02:15 Sodium 144 mmol/L (132-148) 04/18/18 06:30 Potassium 4.0 mmol/L (3.6-5.0) 04/18/18 06:30 Chloride 101 mmol/L (98-107) 04/18/18 06:30 Carbon Dioxide 28 mmol/L (21-33) 04/18/18 06:30 Anion Gap 20 (10-20) 04/18/18 06:30 BUN 33 mg/dL (7-21) H 04/18/18 06:30 Creatinine 1.6 mg/dl (0.8-1.5) H 04/18/18 06:30 Est GFR ( Amer) 53 04/18/18 06:30 Est GFR (Non-Af Amer) 44 04/18/18 06:30 Random Glucose 83 mg/dL (70-110) 04/18/18 06:30 Calcium 9.7 mg/dL (8.4-10.5) 04/18/18 06:30 Phosphorus 3.0 mg/dL (2.5-4.5) 04/18/18 06:30 Magnesium 1.6 mg/dL (1.7-2.2) L 04/18/18 06:30 Iron 60 ug/dL (45-180) 04/12/18 06:30 TIBC 170 ug/dL (261-462) L 04/12/18 06:30 % Saturation 35 % (20-55) 04/12/18 06:30 Ferritin 107.0 ng/mL 04/12/18 06:30 Total Bilirubin 3.5 mg/dL (0.2-1.3) H 04/18/18 06:30 AST 54 U/L (17-59) 04/18/18 06:30 ALT 31 U/L (7-56) 04/18/18 06:30 Alkaline Phosphatase 300 U/L (38-126) H 04/18/18 06:30 Total Protein 8.4 g/dL (5.8-8.3) H 04/18/18 06:30 Albumin 4.2 g/dL (3.0-4.8) 04/18/18 06:30 Globulin 4.2 gm/dL 04/18/18 06:30 Albumin/Globulin Ratio 1.0 (1.1-1.8) L 04/18/18 06:30 Lipase 161 U/L (23-300) 04/11/18 02:15 Procalcitonin 0.37 NG/ML (0.19-0.49) 04/11/18 08:30 Urine Color Yellow (YELLOW) 04/11/18 13:00 Urine Appearance Clear (CLEAR) 04/11/18 13:00 Urine pH 5.5 (4.7-8.0) 04/11/18 13:00 Ur Specific [place] 1.025 (1.005-1.035) 04/11/18 13:00 Urine Protein Trace mg/dL (<30 mg/dL) H 04/11/18 13:00 Urine Glucose (UA) Negative mg/dL (NEGATIVE) 04/11/18 13:00 Urine Ketones Negative mg/dL (NEGATIVE) 04/11/18 13:00 Urine Blood Negative (NEGATIVE) 04/11/18 13:00 Urine Nitrate Negative (NEGATIVE) 04/11/18 13:00 Urine Bilirubin Negative (NEGATIVE) 04/11/18 13:00 Urine Urobilinogen 0.2 E.U./dL (<1 E.U./dL) 04/11/18 13:00 Ur Leukocyte Esterase Negative Tomy/uL (NEGATIVE) 04/11/18 13:00 Urine RBC Negative /hpf (0-2) 04/11/18 13:00 Urine WBC Negative /hpf (0-6) 04/11/18 13:00 Hyaline Casts 0 - 2 /hpf 04/11/18 13:00 Ur Random Creatinine 92 mg/dL 04/14/18 00:05 Ur Random Sodium 45 meq/L 04/14/18 00:05 Ur Random Urea Nitrogn 777 mg/dL 04/11/18 13:00 Urine Collection Time 24 HOURS 04/12/18 15:00 Urine Total Volume 400 mL (800-1400) L 04/12/18 15:00 Ur Creatinine 24 Hour 560.0 MG/24HR (5011-6184) L 04/12/18 15:00 Ur Sodium 24 Hour 7.2 meq/24HR (43-217) L 04/12/18 15:00 Fluid Source Peritoneal/ascites 04/11/18 17:25 Fluid Appearance Clear (CLEAR) 04/11/18 17:25 Fluid WBC 45.1 /uL (0.0-300.0) 04/11/18 17:25 Fluid RBC 40.7 /uL (0.0-0.0) H 04/11/18 17:25 Fluid Tot Cell Count 100 (0-0) H 04/11/18 17:25 Fluid Neutrophils 13.2 % (0-0) H 04/11/18 17:25 Fluid Lymphocytes 86.8 % (0-0) H 04/11/18 17:25 Fld Monocyte/Macrophag TEST NOT PERFORMED 04/11/18 17:25 Fluid Albumin 1.9 g/dL 05/22/18 17:25 Fluid Comment Yellow color 04/11/18 17:25 Blood Type A NEGATIVE 04/11/18 02:15 Antibody Screen Negative 04/11/18 02:15 BBK History Checked Patient has bt 04/11/18 02:15 - Hospital Course Hospital Course: 63 year old male with a past medical history significant for HTN, diastolic CHF , Atrial Fibrillation s/p cardioversion, CKD stage 3B, non-alcoholic liver cirrhosis of unclear etiology, hepatic encephalopathy, chronic ascites, esophageal varices s/p banding, and GERD who presented with three days of nausea , vomiting, hematemesis, dysphagia, blood tinged stools and intermittent SOB. Patient reports that three days ago he started to have difficulty swallowing with an associated dysphagia with all PO intake, including liquids and soft solids. He also endorses one episode of dark maroon blood in his stool. Patient endorses that he was told by [facility] that he needed to gain 30-40 pounds before he could have a liver transplant and patient has been trying to increase his PO intake by drinking more Boost supplements. Shortly after this trial of increased PO intake, patient began to have his presenting symptoms. Over the past Of note, patient has had therapeutic paracentesis within the last 3 weeks at [facility]. Patient denies any further complaints at this time including fevers, chills, headache, chest pain, wheezing, hemoptysis, abdominal pain, diarrhea, constipation, changes in urine output, skin changes, or any numbness/tingling of any extremity. Pt admitted for hematemesis, treated for GI bleed. Started on ocreotide. Pt w/ complaints of dysphagia. Pt seen/evaluated by GI-recommended EGD- performed with findings of esophageal varices- banded. Pt also had Right pleural effusion - pt seen/evaluated by IR - paracentesis performed with 6.5 liters removed. Treated for hepatic encephalopathy. Albumin administered. Diet advanced as tolerated. Pt seen/evaluated by nephrology-treated for KEYUR and intermittent hypotension. Pt seen/evaluated by ID- no Abx recommended, recommended monitoring. Diagnoses Upper GI bleed Esophageal varices s/p banding Cirrhosis of liver with ascites Hypotension- resolved CKD stage 3 hepatic encephalopathy KEYUR Right pleural effusion - Date & Time of H&P Date of H&P: 04/11/18 Time of H&P: 05:59 Discharge Exam - Head Exam Head Exam: ATRAUMATIC, NORMAL INSPECTION, NORMOCEPHALIC - Eye Exam Eye Exam: EOMI, Normal appearance - ENT Exam ENT Exam: Mucous Membranes Moist, Normal Exam - Neck Exam Neck exam: Full Rom, Normal Inspection - Respiratory Exam Respiratory Exam: Clear to PA & Lateral, NORMAL BREATHING PATTERN, UNREMARKABLE - Cardiovascular Exam Cardiovascular Exam: REGULAR RHYTHM, +S1, +S2 - GI/Abdominal Exam GI & Abdominal Exam: Normal Bowel Sounds, Soft, Unremarkable. absent: Distended , Firm, Guarding, Tenderness - Extremities Exam Extremities exam: normal inspection - Neurological Exam Neurological exam: Alert, CN II-XII Intact, Oriented x3 - Psychiatric Exam Psychiatric exam: Normal Affect, Normal Mood - Skin Skin Exam: Dry, Intact, Normal Color, Warm Discharge Plan - Discharge Medications Prescriptions: Famotidine [Pepcid] 20 mg PO HS #1 tab - Follow Up Plan Condition: STABLE Disposition: TRANSF TO SNF Instructions: Kidney Failure (DC), Pneumonia, Adult (DC), Gastrointestinal Bleeding (DC), Altered Mental Status (DC), Nausea and Vomiting, Adult (DC), Acute Kidney Failure (DC), Hepatic Encephalopathy (DC), Pleural Effusion (DC), Delirium (Confusion) (DC), Fluid in the Belly (Ascites) (DC), Community- Acquired Pneumonia, Adult (DC), Chronic Kidney Disease (DC), Thoracentesis (DC) , Normocytic Normochromic Anemia (DC), Low Blood Pressure (DC), Renal Failure Diet (DC), Hyperkalemia (DC) Additional Instructions: You are being discharged from [facility] and admitted to the [facility] Transitional Care Sub Acute Unit. 1. Follow up with Dr. Franko Crespo, Interventional radiologist, for paracentesis every 2 weeks. 2. Follow up with Dr De Oliveira, airline reservation agent 3. All medications as per EMR 4. Please follow up with Dr. Bishop, your primary care provider in the next week 5. Follow up with [facility] for liver transplant. Referrals: Surinder Bishop MD [Primary Care Provider] - <Felicita Rosales - Last Filed: 04/19/18 13:37> Provider - Provider Date of Admission: 04/11/18 05:05 Attending physician: Felicita Rosales MD Primary care physician: Surinder Bishop MD Hospital Course - Lab Results Lab Results: Micro Results 04/11/18 17:25 Ascitic Fluid Anaerobic Culture - Final NO ANAEROBES ISOLATED. 04/11/18 17:25 Ascitic Fluid Body Fluid Culture - Final No growth. 04/11/18 17:25 Ascitic Fluid Fungal Culture - Preliminary NO FUNGUS GROWTH IN 1 WEEK. Most Recent Lab Values WBC 6.5 10^3/ul (4.5-11.0) 04/15/18 10:01 RBC 3.09 10^6/uL (3.5-6.1) L 04/15/18 10:01 Hgb 10.3 g/dL (14.0-18.0) L 04/15/18 10:01 Hct 30.3 % (42.0-52.0) L 04/15/18 10:01 MCV 98.1 fl (80.0-105.0) 04/15/18 10:01 MCH 33.3 pg (25.0-35.0) 04/15/18 10:01 MCHC 34.0 g/dl (31.0-37.0) 04/15/18 10:01 RDW 16.4 % (11.5-14.5) H 04/15/18 10:01 Plt Count 91 10^3/uL (120.0-450.0) L 04/15/18 10:01 MPV 12.4 fl (7.0-11.0) H 04/15/18 10:01 Gran % 46.0 % (50.0-68.0) L 04/14/18 06:15 Lymph % (Auto) 14.0 % (22.0-35.0) L 04/14/18 06:15 [place] % (Auto) 13.2 % (1.0-6.0) H 04/14/18 06:15 Eos % (Auto) 26.3 % (1.5-5.0) H 04/14/18 06:15 Baso % (Auto) 0.5 % (0.0-3.0) 04/14/18 06:15 Gran # 3.38 (1.4-6.5) 04/14/18 06:15 Lymph # (Auto) 1.0 (1.2-3.4) L 04/14/18 06:15 [place] # (Auto) 1.0 (0.1-0.6) H 04/14/18 06:15 Eos # (Auto) 1.9 (0.0-0.7) H 04/14/18 06:15 Baso # (Auto) 0.04 K/mm3 (0.0-2.0) 04/14/18 06:15 Neutrophils % (Manual) 29 % (50.0-70.0) L 04/12/18 06:30 Band Neutrophils % 5 % (0-2) H 04/11/18 02:15 Lymphocytes % (Manual) 12 % (22.0-35.0) L 04/12/18 06:30 Monocytes % (Manual) 7 % (1.0-6.0) H 04/12/18 06:30 Eosinophils % (Manual) 51 % (0.0-3.0) H 04/12/18 06:30 Basophils % (Manual) 1 % (0.0-1.0) 04/12/18 06:30 Platelet Evaluation Normal (NORMAL) 04/11/18 02:15 PT 17.6 SECONDS (9.4-12.5) H 04/16/18 07:00 INR 1.52 (0.93-1.08) H 04/16/18 07:00 APTT 34.6 Seconds (25.1-36.5) 04/11/18 02:15 Sodium 144 mmol/L (132-148) 04/18/18 06:30 Potassium 4.0 mmol/L (3.6-5.0) 04/18/18 06:30 Chloride 101 mmol/L (98-107) 04/18/18 06:30 Carbon Dioxide 28 mmol/L (21-33) 04/18/18 06:30 Anion Gap 20 (10-20) 04/18/18 06:30 BUN 33 mg/dL (7-21) H 04/18/18 06:30 Creatinine 1.6 mg/dl (0.8-1.5) H 04/18/18 06:30 Est GFR ( Amer) 53 04/18/18 06:30 Est GFR (Non-Af Amer) 44 04/18/18 06:30 Random Glucose 83 mg/dL (70-110) 04/18/18 06:30 Calcium 9.7 mg/dL (8.4-10.5) 04/18/18 06:30 Phosphorus 3.0 mg/dL (2.5-4.5) 04/18/18 06:30 Magnesium 1.6 mg/dL (1.7-2.2) L 04/18/18 06:30 Iron 60 ug/dL (45-180) 04/12/18 06:30 TIBC 170 ug/dL (261-462) L 04/12/18 06:30 % Saturation 35 % (20-55) 04/12/18 06:30 Ferritin 107.0 ng/mL 04/12/18 06:30 Total Bilirubin 3.5 mg/dL (0.2-1.3) H 04/18/18 06:30 AST 54 U/L (17-59) 04/18/18 06:30 ALT 31 U/L (7-56) 04/18/18 06:30 Alkaline Phosphatase 300 U/L (38-126) H 04/18/18 06:30 Total Protein 8.4 g/dL (5.8-8.3) H 04/18/18 06:30 Albumin 4.2 g/dL (3.0-4.8) 04/18/18 06:30 Globulin 4.2 gm/dL 04/18/18 06:30 Albumin/Globulin Ratio 1.0 (1.1-1.8) L 04/18/18 06:30 Lipase 161 U/L (23-300) 04/11/18 02:15 Procalcitonin 0.37 NG/ML (0.19-0.49) 04/11/18 08:30 Urine Color Yellow (YELLOW) 04/11/18 13:00 Urine Appearance Clear (CLEAR) 04/11/18 13:00 Urine pH 5.5 (4.7-8.0) 04/11/18 13:00 Ur Specific [place] 1.025 (1.005-1.035) 04/11/18 13:00 Urine Protein Trace mg/dL (<30 mg/dL) H 04/11/18 13:00 Urine Glucose (UA) Negative mg/dL (NEGATIVE) 04/11/18 13:00 Urine Ketones Negative mg/dL (NEGATIVE) 04/11/18 13:00 Urine Blood Negative (NEGATIVE) 04/11/18 13:00 Urine Nitrate Negative (NEGATIVE) 04/11/18 13:00 Urine Bilirubin Negative (NEGATIVE) 04/11/18 13:00 Urine Urobilinogen 0.2 E.U./dL (<1 E.U./dL) 04/11/18 13:00 Ur Leukocyte Esterase Negative Tomy/uL (NEGATIVE) 04/11/18 13:00 Urine RBC Negative /hpf (0-2) 04/11/18 13:00 Urine WBC Negative /hpf (0-6) 04/11/18 13:00 Hyaline Casts 0 - 2 /hpf 04/11/18 13:00 Ur Random Creatinine 92 mg/dL 04/14/18 00:05 Ur Random Sodium 45 meq/L 04/14/18 00:05 Ur Random Urea Nitrogn 777 mg/dL 04/11/18 13:00 Urine Collection Time 24 HOURS 04/12/18 15:00 Urine Total Volume 400 mL (800-1400) L 04/12/18 15:00 Ur Creatinine 24 Hour 560.0 MG/24HR (0778-2598) L 04/12/18 15:00 Ur Sodium 24 Hour 7.2 meq/24HR (43-217) L 04/12/18 15:00 Fluid Source Peritoneal/ascites 04/11/18 17:25 Fluid Appearance Clear (CLEAR) 04/11/18 17:25 Fluid WBC 45.1 /uL (0.0-300.0) 04/11/18 17:25 Fluid RBC 40.7 /uL (0.0-0.0) H 04/11/18 17:25 Fluid Tot Cell Count 100 (0-0) H 04/11/18 17:25 Fluid Neutrophils 13.2 % (0-0) H 04/11/18 17:25 Fluid Lymphocytes 86.8 % (0-0) H 04/11/18 17:25 Fld Monocyte/Macrophag TEST NOT PERFORMED 04/11/18 17:25 Fluid Albumin 1.9 g/dL 04/11/18 17:25 Fluid Comment Yellow color 04/11/18 17:25 Blood Type A NEGATIVE 04/11/18 02:15 Antibody Screen Negative 04/11/18 02:15 BBK History Checked Patient has bt 04/11/18 02:15 Attending/Attestation - Attestation I have personally seen and examined this patient.: Yes I have fully participated in the care of the patient.: Yes I have reviewed all pertinent clinical information, including history, physical exam and plan: Yes Notes (Text): 04/19/18 13:35 Attending note; Patient seen and examined with resident. Patient is a 63 year old male with past medical history of hypertension, h/o afib s/p cardioversion, CKD, non-alcoholic liver cirrhosis, ascites, and esophageal varices s/p banding who presented with complaint of hematemesis, dysphagia, abdominal distention and dyspnea. CT abd/pelvis showed large ascites and moderate right pleural effusion. He was seen by IR and is s/p paracentesis. He is on octreotide and midodrine. Continue propranolol. acute on chronic renal failure which has now resolved. He was started on torsemide. Nephrology evaluation appreciated. He was also seen by GI for dysphagia. He is s/p EGD which showed grade 2 esophageal varices s/p banding. Will need repeat EGD in 2 months. Continue Pepcid, Carafate and Maalox. Dysphagia; improving. Dietitian evaluation appreciated. Advanced to pure diet. Continue ensure for nutrition supplementation. Physical therapy evaluation appreciated. rehabilitation recommended. Will discuss with case manager specialist/social sciences lecturer for discharge planning. Upon discharge the patient will follow-up with PMD DR. Bishop. Patient also needs close follow-up with [facility].
--- NOTE | 2018-04-18 20:12 | CP.PCM.PN ---
Subjective - Date & Time of Evaluation Date of Evaluation: 04/18/18 Time of Evaluation: 12:00 - Subjective Subjective: Patient tolerating diet; still with some dysphagia; no significant sob; urinating frequently; Objective - Vital Signs/Intake and Output Vital Signs (last 24 hours): Temp Pulse Resp BP Pulse Ox 97.6 F 78 18 120/80 98 04/18/18 14:00 04/18/18 17:34 04/18/18 14:00 04/18/18 17:34 04/18/18 14:00 - Medications Medications: Current Medications Ascorbic Acid (Vitamin C 500 Mg Tab) 1,000 mg PO BID [facility] Last Admin: 04/18/18 17:34 Dose: 1,000 mg Cholecalciferol (Vitamin D) 2,000 intlu PO DAILY [facility] Last Admin: 04/18/18 09:51 Dose: 2,000 intlu Al Hydrox/Mg Hydrox/Simethicone 30 ml/Diphenhydramine HCl 75 mg/Lidocaine 30 ml 0 ml PO Q2H PRN PRN Reason: Mouth/Throat Pain Cyanocobalamin (Vitamin B12 1000 Mcg Tab) 1,000 mcg PO DAILY [facility] Last Admin: 04/18/18 09:52 Dose: 1,000 mcg Lactulose (Enulose) 20 gm PO DAILY [facility] Last Admin: 04/18/18 12:25 Dose: Not Given Midodrine (Proamatine) 10 mg PO TID [facility] Last Admin: 04/18/18 17:34 Dose: 10 mg Octreotide Acetate (Sandostatin) 100 mcg SC TID [facility] Last Admin: 04/18/18 18:31 Dose: Not Given Ondansetron HCl (Zofran Inj) 4 mg IVP Q6H PRN PRN Reason: Nausea/Vomiting Last Admin: 04/15/18 00:40 Dose: 4 mg Propranolol HCl (Inderal) 10 mg PO BID [facility] Last Admin: 04/18/18 17:34 Dose: 10 mg Torsemide (Demadex) 10 mg PO DAILY [facility] Last Admin: 04/18/18 09:56 Dose: 10 mg Tramadol HCl (Ultram) 50 mg PO TID PRN PRN Reason: Pain, moderate (4-7) Last Admin: 04/17/18 23:39 Dose: 50 mg Vitamin A (Vitamin A & D Oint Ud Foilpak) 1 ea TOP Q2 PRN PRN Reason: Dry mouth - Labs Labs: 04/15/18 10:01 04/18/18 06:30 PT 17.6 SECONDS (9.4-12.5) H 04/16/18 07:00 INR 1.52 (0.93-1.08) H 04/16/18 07:00 APTT 34.6 Seconds (25.1-36.5) 04/11/18 02:15 - Constitutional Appears: Non-toxic, No Acute Distress, Cachectic - Eye Exam Eye Exam: absent: Scleral icterus - ENT Exam ENT Exam: Mucous Membranes Moist - Respiratory Exam Respiratory Exam: absent: Rhonchi, Respiratory Distress - Cardiovascular Exam Cardiovascular Exam: RRR, +S1, +S2 - GI/Abdominal Exam GI & Abdominal Exam: Distended, Soft - Extremities Exam Additional comments: no leg edema; - Neurological Exam Neurological Exam: Alert, Awake - Psychiatric Exam Psychiatric exam: Normal Mood. absent: Agitated - Skin Skin Exam: Warm. absent: Cyanosis Assessment and Plan (1) CKD (chronic kidney disease), stage III Assessment & Plan: Hemodynamic fluctuations in serum creatinine with increase after restarting diuretics; should continue to monitor; will have to tolerate some degree of renal insufficiency to try and prevent ascites recurrence; Status: Chronic (2) Acute renal failure Status: Resolved (3) Hypotension Assessment & Plan: BP stable lately; continue current meds (propranolol and midodrine); Status: Acute (4) Anemia Status: Chronic (5) Cirrhosis of liver with ascites Assessment & Plan: With recurrent ascites; started on torsemide 10 mg daily; if tolerated, can add small dose aldactone starting at 12.5 mg daily; Status: Chronic
--- NOTE | 2018-04-19 02:12 | PN ---
DATE: 04/18/2018 SUBJECTIVE: The patient is seen earlier this morning, in no acute distress, nontoxic. PHYSICAL EXAMINATION: VITAL SIGNS: Temperature is 98, blood pressure is 120/70, respiratory rate of 16. HEENT: Unremarkable. NECK: Supple. LUNGS: Have decreased breath sounds. HEART: Normal S1, S2. ABDOMEN: Soft. LABORATORY DATA: Reveals white count of 6.5, hemoglobin of 10. BUN of 33, creatinine of 1.6. Review of orders reveals the patient to be off of antibiotics. ASSESSMENT AND PLAN: A 63-year-old male seen earlier this morning, was chronically ill and weak. No evidence of spontaneous bacterial peritonitis and the patient had upper gastrointestinal bleeding with variceal bleeding and status post endoscopy. Also, has a history of spontaneous bacterial peritonitis, also nonalcoholic steatohepatitis, atrial fibrillation, renal failure, cirrhosis of the liver, moderate tricuspid regurgitation, moderate aortic stenosis. Currently, he is off of antibiotics for possible discharge. Overall prognosis is quite poor for this patient who looks cachectic and end stage. Bravo Christensen MD
[2018-04-19 07:52] VITALS: BP 113/58; PULSE 68; TEMP 98.3; O2SAT 97
[2018-04-19] MEDS: Cholecalciferol 1,000 INTLU TAB PO SCH (10:21)
--- NOTE | 2018-04-19 13:24 | CP.PCM.DIS ---
<DamonKaitlyn - Last Filed: 04/19/18 13:21> Provider - Provider Date of Admission: 04/11/18 05:05 Attending physician: Felicita Rosales MD Primary care physician: Surinder Bishop MD Consults: Nephrology = Dr De Oliveira ID = Dr [id number] IR = Dr Crespo Time Spent in preparation of Discharge (in minutes): 40 Diagnosis - Discharge Diagnosis (1) Hypotension Status: Acute (2) Upper GI bleed Status: Acute (3) CKD (chronic kidney disease), stage III Status: Chronic (4) Acute renal failure Status: Resolved (5) Ascites Status: Acute (6) Esophageal varices determined by endoscopy Status: Acute Hospital Course - Lab Results Lab Results: Micro Results 04/11/18 17:25 Ascitic Fluid Anaerobic Culture - Final NO ANAEROBES ISOLATED. 04/11/18 17:25 Ascitic Fluid Body Fluid Culture - Final No growth. 04/11/18 17:25 Ascitic Fluid Fungal Culture - Preliminary NO FUNGUS GROWTH IN 1 WEEK. Most Recent Lab Values WBC 6.5 10^3/ul (4.5-11.0) 04/15/18 10:01 RBC 3.09 10^6/uL (3.5-6.1) L 04/15/18 10:01 Hgb 10.3 g/dL (14.0-18.0) L 04/15/18 10:01 Hct 30.3 % (42.0-52.0) L 04/15/18 10:01 MCV 98.1 fl (80.0-105.0) 04/15/18 10:01 MCH 33.3 pg (25.0-35.0) 04/15/18 10:01 MCHC 34.0 g/dl (31.0-37.0) 04/15/18 10:01 RDW 16.4 % (11.5-14.5) H 04/15/18 10:01 Plt Count 91 10^3/uL (120.0-450.0) L 04/15/18 10:01 MPV 12.4 fl (7.0-11.0) H 04/15/18 10:01 Gran % 46.0 % (50.0-68.0) L 04/14/18 06:15 Lymph % (Auto) 14.0 % (22.0-35.0) L 04/14/18 06:15 [place] % (Auto) 13.2 % (1.0-6.0) H 04/14/18 06:15 Eos % (Auto) 26.3 % (1.5-5.0) H 04/14/18 06:15 Baso % (Auto) 0.5 % (0.0-3.0) 04/14/18 06:15 Gran # 3.38 (1.4-6.5) 04/14/18 06:15 Lymph # (Auto) 1.0 (1.2-3.4) L 04/14/18 06:15 [place] # (Auto) 1.0 (0.1-0.6) H 04/14/18 06:15 Eos # (Auto) 1.9 (0.0-0.7) H 04/14/18 06:15 Baso # (Auto) 0.04 K/mm3 (0.0-2.0) 04/14/18 06:15 Neutrophils % (Manual) 29 % (50.0-70.0) L 04/12/18 06:30 Band Neutrophils % 5 % (0-2) H 04/11/18 02:15 Lymphocytes % (Manual) 12 % (22.0-35.0) L 04/12/18 06:30 Monocytes % (Manual) 7 % (1.0-6.0) H 04/12/18 06:30 Eosinophils % (Manual) 51 % (0.0-3.0) H 04/12/18 06:30 Basophils % (Manual) 1 % (0.0-1.0) 04/12/18 06:30 Platelet Evaluation Normal (NORMAL) 04/11/18 02:15 PT 17.6 SECONDS (9.4-12.5) H 04/16/18 07:00 INR 1.52 (0.93-1.08) H 04/16/18 07:00 APTT 34.6 Seconds (25.1-36.5) 04/11/18 02:15 Sodium 144 mmol/L (132-148) 04/18/18 06:30 Potassium 4.0 mmol/L (3.6-5.0) 04/18/18 06:30 Chloride 101 mmol/L (98-107) 04/18/18 06:30 Carbon Dioxide 28 mmol/L (21-33) 04/18/18 06:30 Anion Gap 20 (10-20) 04/18/18 06:30 BUN 33 mg/dL (7-21) H 04/18/18 06:30 Creatinine 1.6 mg/dl (0.8-1.5) H 04/18/18 06:30 Est GFR ( Amer) 53 04/18/18 06:30 Est GFR (Non-Af Amer) 44 04/18/18 06:30 Random Glucose 83 mg/dL (70-110) 04/18/18 06:30 Calcium 9.7 mg/dL (8.4-10.5) 04/18/18 06:30 Phosphorus 3.0 mg/dL (2.5-4.5) 04/18/18 06:30 Magnesium 1.6 mg/dL (1.7-2.2) L 04/18/18 06:30 Iron 60 ug/dL (45-180) 04/12/18 06:30 TIBC 170 ug/dL (261-462) L 04/12/18 06:30 % Saturation 35 % (20-55) 04/12/18 06:30 Ferritin 107.0 ng/mL 04/12/18 06:30 Total Bilirubin 3.5 mg/dL (0.2-1.3) H 04/18/18 06:30 AST 54 U/L (17-59) 04/18/18 06:30 ALT 31 U/L (7-56) 04/18/18 06:30 Alkaline Phosphatase 300 U/L (38-126) H 04/18/18 06:30 Total Protein 8.4 g/dL (5.8-8.3) H 04/18/18 06:30 Albumin 4.2 g/dL (3.0-4.8) 04/18/18 06:30 Globulin 4.2 gm/dL 04/18/18 06:30 Albumin/Globulin Ratio 1.0 (1.1-1.8) L 04/18/18 06:30 Lipase 161 U/L (23-300) 04/11/18 02:15 Procalcitonin 0.37 NG/ML (0.19-0.49) 04/11/18 08:30 Urine Color Yellow (YELLOW) 04/11/18 13:00 Urine Appearance Clear (CLEAR) 04/11/18 13:00 Urine pH 5.5 (4.7-8.0) 04/11/18 13:00 Ur Specific [place] 1.025 (1.005-1.035) 04/11/18 13:00 Urine Protein Trace mg/dL (<30 mg/dL) H 04/11/18 13:00 Urine Glucose (UA) Negative mg/dL (NEGATIVE) 04/11/18 13:00 Urine Ketones Negative mg/dL (NEGATIVE) 04/11/18 13:00 Urine Blood Negative (NEGATIVE) 04/11/18 13:00 Urine Nitrate Negative (NEGATIVE) 04/11/18 13:00 Urine Bilirubin Negative (NEGATIVE) 04/11/18 13:00 Urine Urobilinogen 0.2 E.U./dL (<1 E.U./dL) 04/11/18 13:00 Ur Leukocyte Esterase Negative Tomy/uL (NEGATIVE) 04/11/18 13:00 Urine RBC Negative /hpf (0-2) 04/11/18 13:00 Urine WBC Negative /hpf (0-6) 04/11/18 13:00 Hyaline Casts 0 - 2 /hpf 04/11/18 13:00 Ur Random Creatinine 92 mg/dL 04/14/18 00:05 Ur Random Sodium 45 meq/L 04/14/18 00:05 Ur Random Urea Nitrogn 777 mg/dL 04/11/18 13:00 Urine Collection Time 24 HOURS 04/12/18 15:00 Urine Total Volume 400 mL (800-1400) L 04/12/18 15:00 Ur Creatinine 24 Hour 560.0 MG/24HR (8106-4630) L 04/12/18 15:00 Ur Sodium 24 Hour 7.2 meq/24HR (43-217) L 04/12/18 15:00 Fluid Source Peritoneal/ascites 04/11/18 17:25 Fluid Appearance Clear (CLEAR) 04/11/18 17:25 Fluid WBC 45.1 /uL (0.0-300.0) 04/11/18 17:25 Fluid RBC 40.7 /uL (0.0-0.0) H 04/11/18 17:25 Fluid Tot Cell Count 100 (0-0) H 04/11/18 17:25 Fluid Neutrophils 13.2 % (0-0) H 04/11/18 17:25 Fluid Lymphocytes 86.8 % (0-0) H 04/11/18 17:25 Fld Monocyte/Macrophag TEST NOT PERFORMED 04/11/18 17:25 Fluid Albumin 1.9 g/dL 04/11/18 17:25 Fluid Comment Yellow color 04/11/18 17:25 Blood Type A NEGATIVE 04/11/18 02:15 Antibody Screen Negative 04/11/18 02:15 BBK History Checked Patient has bt 04/11/18 02:15 - Hospital Course Hospital Course: PGY-[address] 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 Patient reports that three days ago he started to have difficulty swallowing with an associated dysphagia with all PO intake, including liquids and soft solids. He also endorses one episode of dark maroon blood in his stool. Patient endorses that he was told by [facility] that he needed to gain 30-40 pounds before he could have a liver transplant and patient has been trying to increase his PO intake by drinking more Boost supplements. Shortly after this trial of increased PO intake, patient began to have his presenting symptoms. Over the past Of note, patient has had therapeutic paracentesis within the last 3 weeks at [facility]. He was admitted for hematemesis, treated for GI bleed. Started on ocreotide. Currently, hematemesis has resolved Pt also had Right pleural effusion and ascites. Interventional radiologist performed paracentesis performed with 6.5 liters ascitic fluid removed. He was subsequently administered with albumen. The ascites fluid has normal white count , had ruled out SBP. Pt was monitored off antibiotics. With the recurrent ascites, he is on torsemide 10 daily. He should follow up with Dr. De Oliveira outpatient for his CKD, stage 3, and have periodic paracentesis with Dr. Crespo every 3-4 weeks Pt w/complaints of dysphagia. Pt seen/evaluated by GI-recommended EGD- performed with findings of 2 esophageal varices and received 2 bands. Diet advanced as tolerated. Pt seen/evaluated by nephrology-treated for KEYUR and intermittent hypotension. He is managed on propranolol and midodrine. Patient VS is stable. H/H stable. Hematemesis stable. He will transfer to TCU for rehab Discharge Exam - Head Exam Head Exam: ATRAUMATIC, NORMAL INSPECTION, NORMOCEPHALIC - Eye Exam Eye Exam: EOMI, Normal appearance, PERRL. absent: Scleral icterus Pupil Exam: NORMAL ACCOMODATION - ENT Exam ENT Exam: Mucous Membranes Moist - Neck Exam Additional comments: supple. no JVD - Respiratory Exam Respiratory Exam: NORMAL BREATHING PATTERN, UNREMARKABLE. absent: Rales, Rhonchi, Wheezes - Cardiovascular Exam Cardiovascular Exam: REGULAR RHYTHM, +S1, +S2 - GI/Abdominal Exam GI & Abdominal Exam: Distended (slight), Normal Bowel Sounds, Soft. absent: Firm, Guarding, Rigid, Tenderness - Extremities Exam Extremities exam: pedal pulses present Additional comments: danya sign negative b/l - Neurological Exam Neurological exam: Alert, CN II-XII Intact, Oriented x3 - Psychiatric Exam Psychiatric exam: Normal Affect, Normal Mood - Skin Skin Exam: Dry, Warm Discharge Plan - Discharge Medications Prescriptions: Famotidine [Pepcid] 20 mg PO HS #1 tab - Follow Up Plan Condition: STABLE Disposition: TRANSF TO SNF Instructions: Kidney Failure (DC), Pneumonia, Adult (DC), Gastrointestinal Bleeding (DC), Altered Mental Status (DC), Nausea and Vomiting, Adult (DC), Acute Kidney Failure (DC), Hepatic Encephalopathy (DC), Pleural Effusion (DC), Delirium (Confusion) (DC), Fluid in the Belly (Ascites) (DC), Community- Acquired Pneumonia, Adult (DC), Chronic Kidney Disease (DC), Thoracentesis (DC) , Normocytic Normochromic Anemia (DC), Low Blood Pressure (DC), Renal Failure Diet (DC), Hyperkalemia (DC) Additional Instructions: You are being discharged from [facility] and admitted to the [facility] Transitional Care Sub Acute Unit. 1. Follow up with Dr. Franko Crespo, Interventional radiologist, for paracentesis every 2 weeks. 2. Follow up with Dr De Oliveira, inspector circuitry negative 3. All medications as per EMR 4. Please follow up with Dr. Bishop, your primary care provider in the next week 5. Follow up with [facility] for liver transplant. Referrals: Surinder Bishop MD [Primary Care Provider] - <Felicita Rosales - Last Filed: 04/19/18 13:39> Provider - Provider Date of Admission: 04/11/18 05:05 Attending physician: Felicita Rosales MD Primary care physician: Surinder Bishop MD Hospital Course - Lab Results Lab Results: Micro Results 04/11/18 17:25 Ascitic Fluid Anaerobic Culture - Final NO ANAEROBES ISOLATED. 04/11/18 17:25 Ascitic Fluid Body Fluid Culture - Final No growth. 04/11/18 17:25 Ascitic Fluid Fungal Culture - Preliminary NO FUNGUS GROWTH IN 1 WEEK. Most Recent Lab Values WBC 6.5 10^3/ul (4.5-11.0) 04/15/18 10:01 RBC 3.09 10^6/uL (3.5-6.1) L 04/15/18 10:01 Hgb 10.3 g/dL (14.0-18.0) L 04/15/18 10:01 Hct 30.3 % (42.0-52.0) L 04/15/18 10:01 MCV 98.1 fl (80.0-105.0) 04/15/18 10:01 MCH 33.3 pg (25.0-35.0) 04/15/18 10:01 MCHC 34.0 g/dl (31.0-37.0) 04/15/18 10:01 RDW 16.4 % (11.5-14.5) H 04/15/18 10:01 Plt Count 91 10^3/uL (120.0-450.0) L 04/15/18 10:01 MPV 12.4 fl (7.0-11.0) H 04/15/18 10:01 Gran % 46.0 % (50.0-68.0) L 04/14/18 06:15 Lymph % (Auto) 14.0 % (22.0-35.0) L 04/14/18 06:15 [place] % (Auto) 13.2 % (1.0-6.0) H 04/14/18 06:15 Eos % (Auto) 26.3 % (1.5-5.0) H 04/14/18 06:15 Baso % (Auto) 0.5 % (0.0-3.0) 04/14/18 06:15 Gran # 3.38 (1.4-6.5) 04/14/18 06:15 Lymph # (Auto) 1.0 (1.2-3.4) L 04/14/18 06:15 [place] # (Auto) 1.0 (0.1-0.6) H 04/14/18 06:15 Eos # (Auto) 1.9 (0.0-0.7) H 04/14/18 06:15 Baso # (Auto) 0.04 K/mm3 (0.0-2.0) 04/14/18 06:15 Neutrophils % (Manual) 29 % (50.0-70.0) L 04/12/18 06:30 Band Neutrophils % 5 % (0-2) H 04/11/18 02:15 Lymphocytes % (Manual) 12 % (22.0-35.0) L 04/12/18 06:30 Monocytes % (Manual) 7 % (1.0-6.0) H 04/12/18 06:30 Eosinophils % (Manual) 51 % (0.0-3.0) H 04/12/18 06:30 Basophils % (Manual) 1 % (0.0-1.0) 04/12/18 06:30 Platelet Evaluation Normal (NORMAL) 04/11/18 02:15 PT 17.6 SECONDS (9.4-12.5) H 04/16/18 07:00 INR 1.52 (0.93-1.08) H 04/16/18 07:00 APTT 34.6 Seconds (25.1-36.5) 04/11/18 02:15 Sodium 144 mmol/L (132-148) 04/18/18 06:30 Potassium 4.0 mmol/L (3.6-5.0) 04/18/18 06:30 Chloride 101 mmol/L (98-107) 04/18/18 06:30 Carbon Dioxide 28 mmol/L (21-33) 04/18/18 06:30 Anion Gap 20 (10-20) 04/18/18 06:30 BUN 33 mg/dL (7-21) H 04/18/18 06:30 Creatinine 1.6 mg/dl (0.8-1.5) H 04/18/18 06:30 Est GFR ( Amer) 53 04/18/18 06:30 Est GFR (Non-Af Amer) 44 04/18/18 06:30 Random Glucose 83 mg/dL (70-110) 04/18/18 06:30 Calcium 9.7 mg/dL (8.4-10.5) 04/18/18 06:30 Phosphorus 3.0 mg/dL (2.5-4.5) 04/18/18 06:30 Magnesium 1.6 mg/dL (1.7-2.2) L 04/18/18 06:30 Iron 60 ug/dL (45-180) 04/12/18 06:30 TIBC 170 ug/dL (261-462) L 04/12/18 06:30 % Saturation 35 % (20-55) 04/12/18 06:30 Ferritin 107.0 ng/mL 04/12/18 06:30 Total Bilirubin 3.5 mg/dL (0.2-1.3) H 04/18/18 06:30 AST 54 U/L (17-59) 04/18/18 06:30 ALT 31 U/L (7-56) 04/18/18 06:30 Alkaline Phosphatase 300 U/L (38-126) H 04/18/18 06:30 Total Protein 8.4 g/dL (5.8-8.3) H 04/18/18 06:30 Albumin 4.2 g/dL (3.0-4.8) 04/18/18 06:30 Globulin 4.2 gm/dL 04/18/18 06:30 Albumin/Globulin Ratio 1.0 (1.1-1.8) L 04/18/18 06:30 Lipase 161 U/L (23-300) 04/11/18 02:15 Procalcitonin 0.37 NG/ML (0.19-0.49) 04/11/18 08:30 Urine Color Yellow (YELLOW) 04/11/18 13:00 Urine Appearance Clear (CLEAR) 04/11/18 13:00 Urine pH 5.5 (4.7-8.0) 04/11/18 13:00 Ur Specific [place] 1.025 (1.005-1.035) 04/11/18 13:00 Urine Protein Trace mg/dL (<30 mg/dL) H 04/11/18 13:00 Urine Glucose (UA) Negative mg/dL (NEGATIVE) 04/11/18 13:00 Urine Ketones Negative mg/dL (NEGATIVE) 04/11/18 13:00 Urine Blood Negative (NEGATIVE) 04/11/18 13:00 Urine Nitrate Negative (NEGATIVE) 04/11/18 13:00 Urine Bilirubin Negative (NEGATIVE) 04/11/18 13:00 Urine Urobilinogen 0.2 E.U./dL (<1 E.U./dL) 04/11/18 13:00 Ur Leukocyte Esterase Negative Tomy/uL (NEGATIVE) 04/11/18 13:00 Urine RBC Negative /hpf (0-2) 04/11/18 13:00 Urine WBC Negative /hpf (0-6) 04/11/18 13:00 Hyaline Casts 0 - 2 /hpf 04/11/18 13:00 Ur Random Creatinine 92 mg/dL 04/14/18 00:05 Ur Random Sodium 45 meq/L 04/14/18 00:05 Ur Random Urea Nitrogn 777 mg/dL 04/11/18 13:00 Urine Collection Time 24 HOURS 04/12/18 15:00 Urine Total Volume 400 mL (800-1400) L 04/12/18 15:00 Ur Creatinine 24 Hour 560.0 MG/24HR (5823-1041) L 04/12/18 15:00 Ur Sodium 24 Hour 7.2 meq/24HR (43-217) L 04/12/18 15:00 Fluid Source Peritoneal/ascites 04/11/18 17:25 Fluid Appearance Clear (CLEAR) 04/11/18 17:25 Fluid WBC 45.1 /uL (0.0-300.0) 04/11/18 17:25 Fluid RBC 40.7 /uL (0.0-0.0) H 04/11/18 17:25 Fluid Tot Cell Count 100 (0-0) H 04/11/18 17:25 Fluid Neutrophils 13.2 % (0-0) H 04/11/18 17:25 Fluid Lymphocytes 86.8 % (0-0) H 04/11/18 17:25 Fld Monocyte/Macrophag TEST NOT PERFORMED 04/11/18 17:25 Fluid Albumin 1.9 g/dL 04/11/18 17:25 Fluid Comment Yellow color 04/11/18 17:25 Blood Type A NEGATIVE 04/11/18 02:15 Antibody Screen Negative 04/11/18 02:15 BBK History Checked Patient has bt 04/11/18 02:15 Attending/Attestation - Attestation I have personally seen and examined this patient.: Yes I have fully participated in the care of the patient.: Yes I have reviewed all pertinent clinical information, including history, physical exam and plan: Yes Notes (Text): 04/19/18 13:38 Attending note; Patient seen and examined with resident. Patient is a 63 year old male with past medical history of hypertension, h/o afib s/p cardioversion, CKD, non-alcoholic liver cirrhosis, ascites, and esophageal varices s/p banding who presented with complaint of hematemesis, dysphagia, abdominal distention and dyspnea. CT abd/pelvis showed large ascites and moderate right pleural effusion. s/p paracentesis. on octreotide and midodrine. Continue propranolol. acute on chronic renal failure. on torsemide. Nephrology evaluation appreciated. Needs close outpatient follow-up. s/p EGD which showed grade 2 esophageal varices s/p banding. Will need repeat EGD in 2 months. Continue Pepcid, Carafate and Maalox. Dysphagia; improving. Dietitian evaluation appreciated. Advanced to pure diet. Continue ensure for nutrition supplementation. Physical therapy evaluation appreciated. Transfer to TCU today. Upon discharge the patient will follow-up with PMD DR. Bishop. Patient also needs close follow-up with [facility]. Prognosis is poor.
--- NOTE | 2018-04-19 16:20 | CP.PCM.PN ---
Subjective - Date & Time of Evaluation Date of Evaluation: 04/19/18 Time of Evaluation: 11:40 - Subjective Subjective: Comfortable, no fevers, not in distress. Objective - Vital Signs/Intake and Output Vital Signs (last 24 hours): Temp Pulse Resp BP Pulse Ox 98.3 F 68 18 113/58 L 97 04/19/18 06:00 04/19/18 06:00 04/19/18 06:00 04/19/18 06:00 04/19/18 06:00 Intake and Output: 04/19/18 04/19/18 06:59 18:59 Intake Total 720 480 Output Total 600 200 Balance 120 280 - Medications Medications: Current Medications Ascorbic Acid (Vitamin C 500 Mg Tab) 1,000 mg PO BID PENDING SALE TO [facility] Last Admin: 04/19/18 10:21 Dose: 1,000 mg Cholecalciferol (Vitamin D) 2,000 intlu PO DAILY PENDING SALE TO [facility] Last Admin: 04/19/18 10:21 Dose: 2,000 intlu Al Hydrox/Mg Hydrox/Simethicone 30 ml/Diphenhydramine HCl 75 mg/Lidocaine 30 ml 0 ml PO Q2H PRN PRN Reason: Mouth/Throat Pain Cyanocobalamin (Vitamin B12 1000 Mcg Tab) 1,000 mcg PO DAILY PENDING SALE TO [facility] Last Admin: 04/19/18 10:21 Dose: 1,000 mcg Lactulose (Enulose) 20 gm PO DAILY PENDING SALE TO [facility] Last Admin: 04/19/18 10:21 Dose: 20 gm Midodrine (Proamatine) 10 mg PO TID PENDING SALE TO [facility] Last Admin: 04/19/18 10:21 Dose: 10 mg Octreotide Acetate (Sandostatin) 100 mcg SC TID PENDING SALE TO [facility] Last Admin: 04/19/18 10:21 Dose: 100 mcg Ondansetron HCl (Zofran Inj) 4 mg IVP Q6H PRN PRN Reason: Nausea/Vomiting Last Admin: 04/19/18 08:55 Dose: 4 mg Propranolol HCl (Inderal) 10 mg PO BID PENDING SALE TO [facility] Last Admin: 04/19/18 10:21 Dose: 10 mg Torsemide (Demadex) 10 mg PO DAILY PENDING SALE TO [facility] Last Admin: 04/19/18 10:28 Dose: 10 mg Tramadol HCl (Ultram) 50 mg PO TID PRN PRN Reason: Pain, moderate (4-7) Last Admin: 05/29/18 22:29 Dose: 50 mg Vitamin A (Vitamin A & D Oint Ud Foilpak) 1 ea TOP Q2 PRN PRN Reason: Dry mouth - Labs Labs: 04/15/18 10:01 04/18/18 06:30 PT 17.6 SECONDS (9.4-12.5) H 04/16/18 07:00 INR 1.52 (0.93-1.08) H 04/16/18 07:00 APTT 34.6 Seconds (25.1-36.5) 04/11/18 02:15 - Constitutional Appears: Chronically Ill - Head Exam Head Exam: NORMAL INSPECTION - ENT Exam ENT Exam: Mucous Membranes Moist - Neck Exam Neck Exam: absent: Meningismus - Respiratory Exam Respiratory Exam: Decreased Breath Sounds - Cardiovascular Exam Cardiovascular Exam: +S1, +S2 - GI/Abdominal Exam GI & Abdominal Exam: Soft. absent: Tenderness Assessment and Plan - Assessment and Plan (Free Text) Plan: Assessment Ascites without evidence of spontaneous bacterial peritonitis upper GI bleeding, consider variceal bleeding S/P endoscopy history of probable spontaneous bacterial peritonitis non-alcoholic steatohepatitis with liver cirrhosis and ascites Atrial fibrillation chronic renal failure Plan continue to monitor off antibiotics since he is at risk for infections overall prognosis is poor
--- NOTE | 2018-04-19 23:08 | CP.PCM.PN ---
Objective - Vital Signs/Intake and Output Vital Signs (last 24 hours): Temp Pulse Resp BP Pulse Ox 98.3 F 68 18 113/58 L 97 04/19/18 06:00 04/19/18 06:00 04/19/18 06:00 04/19/18 06:00 04/19/18 06:00 Intake and Output: 04/19/18 04/20/18 18:59 06:59 Intake Total 480 Output Total 200 Balance 280 - Labs Labs: 04/15/18 10:01 04/18/18 06:30 PT 17.6 SECONDS (9.4-12.5) H 04/16/18 07:00 INR 1.52 (0.93-1.08) H 04/16/18 07:00 APTT 34.6 Seconds (25.1-36.5) 04/11/18 02:15 Assessment and Plan (1) CKD (chronic kidney disease), stage III Status: Chronic (2) Acute renal failure Status: Resolved (3) Hypotension Status: Acute (4) Anemia Status: Chronic (5) Cirrhosis of liver with ascites Status: Chronic
== END 2018-04-19 13:24 | DRG 432 ==
LOC: ED 01:07 → ERH 05:05 → 5RNO 06:43
PROVIDERS: ADMIT Internal Medicine; ATTEND Internal Medicine
PROC: 0W9G3ZZ Drainage of Peritoneal Cavity, Percutaneous Approach (ICD-10-PCS; 2018-04-11)
PROC: 06L38CZ Occlusion of Esophageal Vein with Extraluminal Device, Via Natural or Artificial Opening Endoscopic (ICD-10-PCS; principal; 2018-04-14 09:15)
DX: K74.60 Unspecified cirrhosis of liver (principal); I85.11 Secondary esophageal varices with bleeding; N17.9 Acute kidney failure, unspecified; R18.8 Other ascites; I13.0 Hypertensive heart and chronic kidney disease with heart failure and stage 1 through stage 4 chronic kidney disease, or unspecified chronic kidney disease; I50.32 Chronic diastolic (congestive) heart failure; K76.6 Portal hypertension; R64 Cachexia; Z68.1 Body mass index [BMI] 19.9 or less, adult; K75.81 Nonalcoholic steatohepatitis (NASH); K21.9 Gastro-esophageal reflux disease without esophagitis; N18.3 Chronic kidney disease, stage 3 (moderate); I48.91 Unspecified atrial fibrillation; R13.10 Dysphagia, unspecified; K31.89 Other diseases of stomach and duodenum; I08.2 Rheumatic disorders of both aortic and tricuspid valves; D64.9 Anemia, unspecified; I95.9 Hypotension, unspecified; Z91.81 History of falling; Z87.891 Personal history of nicotine dependence

== ENCOUNTER 2018-04-19 13:26 | Inpatient (IN) | payer BC ==
[2018-04-19 14:10] VITALS: BMI 18.4
[2018-04-19] MEDS ORDERED: Aluminum Hydroxide/Magnesium 30 ML, DiphenhydrAMINE 75 MG, Lidocaine 2% Viscous 30 ML PO PRN (15:14)
[2018-04-19] MEDS: Alum-Mag Hydrox-Simethicone Susp (30 mL) PO SCH ×2 (15:30→21:05)
[2018-04-19] MEDS: Sucralfate 1 gm/10 ml Oral Susp UD PO SCH (15:36)
[2018-04-19] MEDS ORDERED: Pneumococcal 23-Valent Vaccine IM ONE (17:49)
[2018-04-20] MEDS: Sucralfate 1 gm/10 ml Oral Susp UD PO SCH ×3 (02:23→17:34)
[2018-04-20] MEDS: Alum-Mag Hydrox-Simethicone Susp (30 mL) PO SCH ×3 (05:32→21:07)
--- NOTE | 2018-04-20 07:38 | CP.PCM.HP ---
<Cherie Hernández - Last Filed: 04/20/18 10:49> History of Present Illness - History of Present Illness History of Present Illness: H & P for Dr. Dayana Hernández, PGY-1 Pt S & E at bedside at 0730 63M w/PMH sig for HTN, diastolic CHF, Atrial Fibrillation s/p cardioversion, CKD stage 3B, non-alcoholic liver cirrhosis of unclear etiology, hepatic encephalopathy, chronic ascites, esophageal varices s/p banding, and GERD who is admitted to TCU s/p hospitalization due to GI bleed & dysphagia. Pt was admitted to TCU for rehabilitation due to deconditioning. Pt was seen/ evaluated gy GI for GI bleed while in the hospital, EGD was done with esophageal banding for varices. Pt was also seen/evaluated by IR w/paracentesis while in the hospital. Pt seen/evaluatedy by nephrology & ID as well with recommendations made. Pt continues to c/o pain with swallowing/talking, but overall stable and ready for rehabilitation. Denies N & V, F & C, chest pain, SOB, continued hematemesis, hematuria, hematochezia, changes to bowel or bladder habits, other complaints. PMH: HTN, GERD, Non-alcoholic liver cirrhosis, Ascites, CHF, afib s/p cardioversion and esophageal varices, recent GI bleed PSH: Inguinal hernia repair SH: Denies alcohol, drug used; Former smoker, quit 1.5 years ago FH: Mother - DM, heart disease; Father - [place] All: Beef products, banana Present on Admission - Present on Admission Any Indicators Present on Admission: No History of DVT/PE: No History of Uncontrolled Diabetes: No Urinary Catheter: No Decubitus Ulcer Present: No Review of Systems - Review of Systems All systems: reviewed and no additional remarkable complaints except - Constitutional Constitutional: absent: Chills, Fever - EENT Eyes: absent: Change in Vision Ears: absent: Dizziness Nose/Mouth/Throat: Sore Throat - Cardiovascular Cardiovascular: absent: Chest Pain - Respiratory Respiratory: absent: Cough - Gastrointestinal Gastrointestinal: absent: Abdominal Pain, Change in Stool Character, Constipation, Diarrhea, Dysphagia, Fecal Incontinence, Heartburn, Hematemesis, Hematochezia, Nausea, Vomiting - Genitourinary Genitourinary: absent: Hematuria - Musculoskeletal Musculoskeletal: absent: Numbness, Tingling - Integumentary Integumentary: absent: Rash - Neurological Neurological: Weakness (chronic) Past Patient History - Infectious Disease Hx of Infectious Diseases: None - Tetanus Immunizations Tetanus Immunization: Unknown - Past Medical History & Family History Past Medical History?: Yes - Past Social History Smoking Status: Former Smoker - CARDIAC Hx Cardiac Disorders: Yes Hx Congestive Heart Failure: Yes Hx Hypertension: Yes - PULMONARY Hx Pneumonia: Yes - NEUROLOGICAL Hx Neurological Disorder: No - HEENT Hx HEENT Problems: No - RENAL Hx Renal Failure: Yes - ENDOCRINE/METABOLIC Hx Endocrine Disorders: No - HEMATOLOGICAL/ONCOLOGICAL Hx Blood Transfusions: Yes Hx Blood Transfusion Reaction: No - INTEGUMENTARY Hx Dermatological Problems: No - MUSCULOSKELETAL/RHEUMATOLOGICAL Hx Falls: No - GASTROINTESTINAL Hx Gastrointestinal Disorders: Yes (ESOPHAGEAL VARICES,DYSPHAGIA,GERD, HEPATOCEPHALOPATHY,GI BLEED) - GENITOURINARY/GYNECOLOGICAL Hx Genitourinary Disorders: No Hx Reproductive Disorders: No - PSYCHIATRIC Hx Anxiety: Yes Hx Depression: Yes Hx Substance Use: No - SURGICAL HISTORY Hx Surgeries: Yes - ANESTHESIA Hx Anesthesia Reactions: No Hx Malignant Hyperthermia: No Meds Allergies/Adverse Reactions: Allergies Allergy/AdvReac Type Severity Reaction Status Date / Time Beef Containing Products Allergy Severe ANAPHYLAXIS Verified 04/19/18 14:52 beef derived (bovine) Allergy Severe ANAPHYLAXIS Verified 04/19/18 14:52 banana Allergy Intermediate ITCHING Verified 04/19/18 14:52 velcro Allergy ITCHING Uncoded 04/19/18 14:52 Physical Exam - Constitutional Appears: Non-toxic, No Acute Distress, Cachectic - Head Exam Head Exam: ATRAUMATIC, NORMAL INSPECTION, NORMOCEPHALIC - Eye Exam Eye Exam: EOMI, Normal appearance - ENT Exam ENT Exam: Mucous Membranes Moist, Normal Exam - Neck Exam Neck exam: Positive for: Full Rom, Normal Inspection - Respiratory Exam Respiratory Exam: Clear to Auscultation Bilateral, NORMAL BREATHING PATTERN - Cardiovascular Exam Cardiovascular Exam: REGULAR RHYTHM, +S1, +S2 - GI/Abdominal Exam GI & Abdominal Exam: Normal Bowel Sounds, Soft. absent: Distended (obese), Firm , Guarding, Hernia, Tenderness - Extremities Exam Extremities exam: Positive for: normal inspection. Negative for: pedal edema - Neurological Exam Neurological exam: Alert, CN II-XII Intact, Normal Gait, Oriented x3 - Psychiatric Exam Psychiatric exam: Normal Affect, Normal Mood - Skin Skin Exam: Dry, Intact, Normal Color, Warm Results - Vital Signs Recent Vital Signs: Last Vital Signs Temp 98.8 F 04/19/18 17:29 Pulse 60 04/19/18 17:38 Resp 18 04/19/18 17:29 BP 110/63 04/19/18 17:38 Pulse Ox Assessment & Plan - Assessment and Plan (Free Text) Assessment: 63M w/PMH sig for HTN, diastolic CHF, Atrial Fibrillation s/p cardioversion, CKD stage 3B, non-alcoholic liver cirrhosis of unclear etiology, hepatic encephalopathy, chronic ascites, esophageal varices s/p banding, and GERD admitted to TCU s/p hospitalization for GI bleed & dysphagia, now with deconditioning requiring rehabilitation. Plan: Dysphgia/odynophagia Maalox Magic mouthwash Zofran carafate Monitor KEYUR on CKD Vitamin D Torsemide Avoid nephrotoxic agents Nephro following Hypotension Midodrine Propranolol Monitor Cirrhosis w/ascites s/p paracentesis on 04/11 lactulose Monitor Chronic pain Tramadol Monitor GI/DVT ppx Pepcid SCDs Ambulate Dispo TCU rehab PT OT Altered GI/hepatic diet Supplements Monitor for skin break down Wound care PRN DW attending Betty, PGY-1 - Date & Time Date: 04/20/18 Time: 07:38 Decision To Admit - Pt Status Changed To: Hospital Disposition Of: Inpatient Admission - Admit Certification Admit to Inpatient:: After my assessment, the patient will require hospitalization for at least two midnights. This is because of the severity of symptoms shown, intensity of services needed, and/or the medical risk in this patient being treated as an outpatient. - . Bed Request Type: [facility] Admitting Physician: Felicita Rosales <Felicita Rosales - Last Filed: 04/20/18 16:26> Results - Vital Signs Recent Vital Signs: Last Vital Signs Temp 98.8 F 04/19/18 17:29 Pulse 56 L 04/20/18 11:52 Resp 18 04/19/18 17:29 BP 110/63 04/19/18 17:38 Pulse Ox 92 L 04/20/18 11:52 Attending/Attestation - Attestation I have personally seen and examined this patient.: Yes I have fully participated in the care of the patient.: Yes I have reviewed all pertinent clinical information: Yes Notes (Text): 04/20/18 16:25 Attending note; Patient seen and examined with resident. Patient is walking in the hallway with physical therapist in TCU. Patient is alert, awake. Patient is a 63 year old male with past medical history of hypertension, h/o afib s/p cardioversion, CKD, non-alcoholic liver cirrhosis, ascites, and esophageal varices s/p banding who presented with complaint of hematemesis, dysphagia, abdominal distention and dyspnea. CT abd/pelvis showed large ascites and moderate right pleural effusion. s/p paracentesis. acute on chronic renal failure. on torsemide. Nephrology evaluation appreciated. Needs close outpatient follow-up. s/p EGD which showed grade 2 esophageal varices s/p banding. continue Propranolol. Will need repeat EGD in 2 months. Continue Pepcid, Carafate and Maalox. Dysphagia; improving. Dietitian evaluation appreciated. Advanced to pure diet. Continue ensure for nutrition supplementation. Upon discharge the patient will follow-up with PMD DR. Bishop. Patient also needs close follow-up with [facility]. Prognosis is poor.
[2018-04-20] MEDS ORDERED: Non Formulary Medication (Cholecalciferol (Vitamin D3) [Vitamin D3] 2,000 UNIT) PO SCH (10:00)
[2018-04-20] MEDS: Cholecalciferol 1,000 INTLU TAB PO SCH (10:20)
[2018-04-21] MEDS: Alum-Mag Hydrox-Simethicone Susp (30 mL) PO SCH ×3 (05:21→21:25)
[2018-04-21] MEDS: Sucralfate 1 gm/10 ml Oral Susp UD PO SCH ×2 (05:22→17:21)
[2018-04-21] MEDS: Cholecalciferol 1,000 INTLU TAB PO SCH (09:26)
[2018-04-22] MEDS: Alum-Mag Hydrox-Simethicone Susp (30 mL) PO SCH (05:34)
[2018-04-22] MEDS: Sucralfate 1 gm/10 ml Oral Susp UD PO SCH ×2 (05:34→16:35)
[2018-04-22] MEDS: Cholecalciferol 1,000 INTLU TAB PO SCH (10:50)
[2018-04-22 11:58] LABS: BASO # 0.08 K/mm3 (0.0-2.0); BASO % 1.6 % (0.0-3.0); EOS # 0.4 (0.0-0.7); GRAN # 2.52 (1.4-6.5); GRAN % 50.5 % (50.0-68.0); HEMOGLOBIN 10.4 g/dL (14.0-18.0); LYMPH # 1.4 (1.2-3.4); LYMPH % 28.9 % (22.0-35.0); MEAN CELL VOLUME 99.4 fl (80.0-105.0); MEAN CORPUSCULAR HEMOGLOBIN 33.7 pg (25.0-35.0); MEAN CORPUSCULAR HGB CONC 33.9 g/dl (31.0-37.0); MEAN PLATELET VOLUME 9.8 fl (7.0-11.0); MONO # 0.6 (0.1-0.6); RBC 3.09 10^6/uL (3.5-6.1)
[2018-04-22 12:09] LABS: ALB/GLOB RATIO 0.9 (1.1-1.8); ALBUMIN 4.2 g/dL (3.0-4.8); CALCIUM 9.5 mg/dL (8.4-10.5)
--- NOTE | 2018-04-22 17:15 | CP.PCM.PN ---
<Alvaro Allen - Last Filed: 04/22/18 17:12> Subjective - Date & Time of Evaluation Date of Evaluation: 04/22/18 Time of Evaluation: 09:55 - Subjective Subjective: PGY1 Medicine Note for Dr. Rosales Patient seen and examined at bedside this morning. No acute events overnight. Patient reports difficulty eating and drinking due to throat pain. Patient reports that this is the same feeling he experienced last week in the hospital. He was unable to eat breakfast this morning due to the pain. He feels like he has something in his throat but is unable to cough it up. Patient reports a normal bowel movement yesterday. He has no other complaints at this time. Denies fevers, chills, nausea, vomiting, diarrhea, constipation, chest pain, shortness of breath, palpitations, abdominal pain. Objective - Vital Signs/Intake and Output Vital Signs (last 24 hours): Temp Pulse Resp BP Pulse Ox 98.3 F 67 18 111/62 97 04/22/18 16:40 04/22/18 16:49 04/22/18 16:40 04/22/18 16:40 04/22/18 16:49 Intake and Output: 04/22/18 04/22/18 06:59 18:59 Intake Total 240 420 Balance 240 420 - Medications Medications: Current Medications Cholecalciferol (Vitamin D) 1,000 intlu PO DAILY [facility] Last Admin: 04/22/18 10:50 Dose: 1,000 intlu Al Hydrox/Mg Hydrox/Simethicone 30 ml/Diphenhydramine HCl 75 mg/Lidocaine 30 ml 0 ml PO Q2H PRN; Protocol PRN Reason: Mouth/Throat Pain Last Admin: 04/20/18 08:05 Dose: 30 ml Cyanocobalamin (Vitamin B12 1000 Mcg Tab) 1,000 mcg PO DAILY [facility] PRN Reason: Protocol Last Admin: 04/22/18 10:50 Dose: 1,000 mcg Famotidine (Pepcid) 40 mg PO HS [facility] Last Admin: 04/21/18 21:26 Dose: 40 mg Sodium Chloride (Sodium Chloride 0.9%) 1,000 mls @ 100 mls/hr IV .Q10H [facility] Lactulose (Enulose) 20 gm PO DAILY [facility] PRN Reason: Protocol Last Admin: 04/22/18 10:50 Dose: 20 gm Midodrine (Proamatine) 10 mg PO 0800,1200,1600 [facility] PRN Reason: Protocol Last Admin: 04/22/18 13:00 Dose: 10 mg Ondansetron HCl (Zofran Inj) 4 mg IVP Q6H PRN; Protocol PRN Reason: Nausea/Vomiting Last Admin: 04/22/18 08:21 Dose: 4 mg Propranolol HCl (Inderal) 10 mg PO BID [facility] PRN Reason: Protocol Last Admin: 04/22/18 10:50 Dose: 10 mg Sucralfate (Carafate Oral Susp) 1 gm PO 0600,1600 [facility] Last Admin: 04/22/18 05:34 Dose: 1 gm Torsemide (Demadex) 10 mg PO DAILY [facility] PRN Reason: Protocol Last Admin: 04/22/18 10:50 Dose: 10 mg Tramadol HCl (Ultram) 50 mg PO TID PRN; Protocol PRN Reason: Pain, moderate (4-7) Last Admin: 04/21/18 21:25 Dose: 50 mg - Labs Labs: 04/22/18 11:50 04/22/18 11:50 - Constitutional Appears: Non-toxic, No Acute Distress, Cachectic, Chronically Ill - Head Exam Head Exam: ATRAUMATIC, NORMOCEPHALIC - Eye Exam Eye Exam: EOMI, Normal appearance - ENT Exam ENT Exam: Mucous Membranes Moist - Neck Exam Neck Exam: absent: Lymphadenopathy - Respiratory Exam Respiratory Exam: Clear to Ausculation Bilateral, NORMAL BREATHING PATTERN. absent: Accessory Muscle Use, Rales, Rhonchi, Wheezes, Respiratory Distress - Cardiovascular Exam Cardiovascular Exam: REGULAR RHYTHM, +S1, +S2 - GI/Abdominal Exam GI & Abdominal Exam: Soft, Normal Bowel Sounds. absent: Distended, Firm, Guarding, Rigid, Tenderness - Extremities Exam Extremities Exam: absent: Calf Tenderness, Pedal Edema - Neurological Exam Neurological Exam: Alert, Awake, Oriented x3 - Psychiatric Exam Psychiatric exam: Normal Affect, Normal Mood - Skin Skin Exam: Dry, Warm Assessment and Plan - Assessment and Plan (Free Text) Assessment: 63M w/PMH sig for HTN, diastolic CHF, Atrial Fibrillation s/p cardioversion, CKD stage 3B, non-alcoholic liver cirrhosis of unclear etiology, hepatic encephalopathy, chronic ascites, esophageal varices s/p banding, and GERD admitted to TCU s/p hospitalization for GI bleed & dysphagia, now with deconditioning requiring rehabilitation. During TCU stay, patient found to have KEYUR. Plan: Dysphgia/odynophagia Maalox - patient reports that it does not work and he does not want to take it. discontinued Magic mouthwash prn - patient informed that he needs to ask for magic mouthwash for throat pain. Zofran carafate Monitor KEYUR on CKD Creatinine elevated - 2.1, possibly due to poor oral intake Started on NS @100mL/hr Vitamin D Torsemide Avoid nephrotoxic agents Nephro re-consulted, Dr. De Oliveira Hypotension Midodrine Propranolol Monitor Cirrhosis w/ascites s/p paracentesis on 04/11 lactulose Monitor Chronic pain Tramadol Monitor GI/DVT ppx Pepcid SCDs Ambulate Dispo TCU rehab PT OT Altered GI/hepatic diet Supplements Monitor for skin break down Wound care PRN Case discussed with Dr. Bobby John Tiffany PGY1 <Felicita Rosales - Last Filed: 04/23/18 10:02> Objective - Vital Signs/Intake and Output Vital Signs (last 24 hours): Temp Pulse Resp BP Pulse Ox 98.3 F 65 18 111/62 97 04/22/18 16:40 04/22/18 17:15 04/22/18 16:40 04/22/18 17:15 04/22/18 16:49 - Medications Medications: Current Medications Cholecalciferol (Vitamin D) 1,000 intlu PO DAILY [facility] Last Admin: 04/22/18 10:50 Dose: 1,000 intlu Al Hydrox/Mg Hydrox/Simethicone 30 ml/Diphenhydramine HCl 75 mg/Lidocaine 30 ml 0 ml PO Q2H PRN; Protocol PRN Reason: Mouth/Throat Pain Last Admin: 04/20/18 08:05 Dose: 30 ml Cyanocobalamin (Vitamin B12 1000 Mcg Tab) 1,000 mcg PO DAILY [facility] PRN Reason: Protocol Last Admin: 04/22/18 10:50 Dose: 1,000 mcg Famotidine (Pepcid) 40 mg PO HS [facility] Last Admin: 04/22/18 21:37 Dose: 40 mg Sodium Chloride (Sodium Chloride 0.9%) 1,000 mls @ 100 mls/hr IV .Q10H [facility] Last Admin: 04/23/18 03:39 Dose: 100 mls/hr Lactulose (Enulose) 20 gm PO DAILY [facility] PRN Reason: Protocol Last Admin: 04/22/18 10:50 Dose: 20 gm Midodrine (Proamatine) 10 mg PO 0800,1200,1600 [facility] PRN Reason: Protocol Last Admin: 04/23/18 08:37 Dose: 10 mg Ondansetron HCl (Zofran Inj) 4 mg IVP Q6H PRN; Protocol PRN Reason: Nausea/Vomiting Last Admin: 04/22/18 08:21 Dose: 4 mg Propranolol HCl (Inderal) 10 mg PO BID [facility] PRN Reason: Protocol Last Admin: 04/22/18 17:15 Dose: 10 mg Sucralfate (Carafate Oral Susp) 1 gm PO 0600,1600 [facility] Last Admin: 04/23/18 05:41 Dose: 1 gm Torsemide (Demadex) 10 mg PO DAILY [facility] PRN Reason: Protocol Last Admin: 04/22/18 10:50 Dose: 10 mg Tramadol HCl (Ultram) 50 mg PO TID PRN; Protocol PRN Reason: Pain, moderate (4-7) Last Admin: 04/23/18 03:27 Dose: 50 mg - Labs Labs: 04/22/18 11:50 04/22/18 11:50 Attending/Attestation - Attestation I have personally seen and examined this patient.: Yes I have fully participated in the care of the patient.: Yes I have reviewed all pertinent clinical information, including history, physical exam and plan: Yes Notes (Text): 04/23/18 10:01 Attending note; Patient seen and examined with resident in TCU. Patient is alert, awake. Complaining of discomfort in the throat. Decreased by mouth intake today. Patient is a 63 year old male with past medical history of hypertension, h/o afib s/p cardioversion, CKD, non-alcoholic liver cirrhosis, ascites, and esophageal varices s/p banding who presented with complaint of hematemesis, dysphagia, abdominal distention and dyspnea. CT abd/pelvis showed large ascites and moderate right pleural effusion. s/p paracentesis. acute on chronic renal failure. on torsemide. Torsemide stopped . Started on IV fluids . Nephrology evaluation requested. s/p EGD which showed grade 2 esophageal varices s/p banding. continue Propranolol. Will need repeat EGD in 2 months. Continue Pepcid, Carafate and started on Magic mouthwash. Continue ensure for nutrition supplementation. Upon discharge the patient will follow-up with PMD DR. Bishop. Patient also needs close follow-up with [facility]. Prognosis is poor.
[2018-04-22] MEDS: Sodium Chloride 0.9% 1,000 ML IV SCH (17:19)
[2018-04-23] MEDS: Sodium Chloride 0.9% 1,000 ML IV SCH (03:39)
[2018-04-23] MEDS: Sucralfate 1 gm/10 ml Oral Susp UD PO SCH ×2 (05:41→17:14)
[2018-04-23] MEDS: Cholecalciferol 1,000 INTLU TAB PO SCH (09:58)
--- NOTE | 2018-04-23 21:38 | CP.PCM.CON ---
History of Present Illness - History of Present Illness History of Present Illness: 63M w/PMH sig for HTN, CHF w/ preserved EF, Atrial Fibrillation s/p cardioversion, CKD stage 3A, non-alcoholic liver cirrhosis of unclear etiology, hepatic encephalopathy, chronic ascites, esophageal varices s/p banding, and GERD, initially admitted to [facility] late last month for dysphagia/odynophagia, subsequently discharged to TCU for rehab; nephrology being consulted again for acute kidney injury; Patient reportedly with erratic PO intake in the setting of continued dysphagia although does say he ate well today; reports some intermittent nausea but no vomiting or diarrhea; patient has been ambulating with PT using walker; otherwise urinating well, more than usual since being started on torsemide recently; denies any dysuria and has good urinary stream; Review of Systems - Constitutional Constitutional: As Per HPI. absent: Fever - EENT Nose/Mouth/Throat: Dysphagia - Cardiovascular Cardiovascular: absent: Chest Pain, Palpitations - Respiratory Respiratory: absent: Dyspnea - Gastrointestinal Gastrointestinal: As Per HPI - Genitourinary Genitourinary: As Per HPI - Musculoskeletal Additional comments: back pain currently calm; not using pain meds much; - Integumentary Integumentary: absent: Pruritus, Rash - Neurological Neurological: absent: Dizziness - Psychiatric Psychiatric: Abnormal Sleep Pattern Past Patient History - Infectious Disease Hx of Infectious Diseases: None - Tetanus Immunizations Tetanus Immunization: Unknown - Past Medical History & Family History Past Medical History?: Yes - Past Social History Smoking Status: Former Smoker - CARDIAC Hx Congestive Heart Failure: Yes Hx Hypertension: Yes - PULMONARY Hx Pneumonia: Yes - NEUROLOGICAL Hx Neurological Disorder: No - HEENT Hx HEENT Problems: No - RENAL Hx Renal Failure: Yes (CKD stage 3B) - ENDOCRINE/METABOLIC Hx Endocrine Disorders: No - HEMATOLOGICAL/ONCOLOGICAL Hx Blood Transfusions: Yes Hx Blood Transfusion Reaction: No - INTEGUMENTARY Hx Dermatological Problems: No - MUSCULOSKELETAL/RHEUMATOLOGICAL Hx Falls: No - GASTROINTESTINAL Hx Gastrointestinal Disorders: Yes (ESOPHAGEAL VARICES,DYSPHAGIA,GERD, HEPATOCEPHALOPATHY,GI BLEED) - GENITOURINARY/GYNECOLOGICAL Hx Genitourinary Disorders: No Hx Reproductive Disorders: No - PSYCHIATRIC Hx Anxiety: Yes Hx Depression: Yes Hx Substance Use: No - SURGICAL HISTORY Hx Surgeries: Yes - ANESTHESIA Hx Anesthesia Reactions: No Hx Malignant Hyperthermia: No Meds Allergies/Adverse Reactions: Allergies Allergy/AdvReac Type Severity Reaction Status Date / Time Beef Containing Products Allergy Severe ANAPHYLAXIS Verified 04/19/18 14:52 beef derived (bovine) Allergy Severe ANAPHYLAXIS Verified 04/19/18 14:52 banana Allergy Intermediate ITCHING Verified 04/19/18 14:52 velcro Allergy ITCHING Uncoded 04/19/18 14:52 - Medications Medications: Current Medications Cholecalciferol (Vitamin D) 1,000 intlu PO DAILY [facility] Last Admin: 04/23/18 09:58 Dose: 1,000 intlu Al Hydrox/Mg Hydrox/Simethicone 30 ml/Diphenhydramine HCl 75 mg/Lidocaine 30 ml 0 ml PO Q2H PRN; Protocol PRN Reason: Mouth/Throat Pain Last Admin: 04/20/18 08:05 Dose: 30 ml Cyanocobalamin (Vitamin B12 1000 Mcg Tab) 1,000 mcg PO DAILY [facility] PRN Reason: Protocol Last Admin: 04/23/18 09:58 Dose: 1,000 mcg Famotidine (Pepcid) 40 mg PO HS [facility] Last Admin: 04/22/18 21:37 Dose: 40 mg Lactulose (Enulose) 20 gm PO DAILY [facility] PRN Reason: Protocol Last Admin: 04/23/18 09:54 Dose: Not Given Midodrine (Proamatine) 10 mg PO 0800,1200,1600 [facility] PRN Reason: Protocol Last Admin: 04/23/18 17:14 Dose: 10 mg Ondansetron HCl (Zofran Inj) 4 mg IVP Q6H PRN; Protocol PRN Reason: Nausea/Vomiting Last Admin: 04/23/18 19:28 Dose: 4 mg Propranolol HCl (Inderal) 10 mg PO BID [facility] PRN Reason: Protocol Last Admin: 04/23/18 17:14 Dose: 10 mg Sucralfate (Carafate Oral Susp) 1 gm PO 0600,1600 [facility] Last Admin: 04/23/18 17:14 Dose: 1 gm Torsemide (Demadex) 10 mg PO DAILY [facility] PRN Reason: Protocol Last Admin: 04/22/18 10:50 Dose: 10 mg Tramadol HCl (Ultram) 50 mg PO TID PRN; Protocol PRN Reason: Pain, moderate (4-7) Last Admin: 04/23/18 18:18 Dose: 50 mg Physical Exam - Constitutional Appears: No Acute Distress, Cachectic - Eye Exam Eye Exam: Normal appearance. absent: Scleral icterus - ENT Exam ENT Exam: Mucous Membranes Moist - Respiratory Exam Respiratory Exam: Clear to Auscultation Bilateral. absent: Respiratory Distress Additional comments: decreased sounds at R base; - Cardiovascular Exam Cardiovascular Exam: RRR, +S1, +S2 - GI/Abdominal Exam GI & Abdominal Exam: Distended, Soft, Tenderness - Exam Exam: absent: Bladder Distension - Extremities Exam Additional comments: no leg edema; - Neurological Exam Neurological exam: Alert Additional comments: no asterixis - Psychiatric Exam Psychiatric exam: Normal Affect, Normal Mood - Skin Skin Exam: Normal Color, Warm Results - Vital Signs Recent Vital Signs: Last Vital Signs Temp 97.7 F 04/23/18 10:00 Pulse 67 04/23/18 10:00 Resp 16 04/23/18 10:00 BP 113/58 L 04/23/18 17:14 Pulse Ox 97 04/22/18 16:49 - Labs Result Diagrams: 04/22/18 11:50 04/22/18 11:50 Assessment & Plan (1) KEYUR (acute kidney injury) Assessment and Plan: KEYUR on CKD IIIA; pre-renal etiology consistently seen after starting diuretics; as mentioned previously, patient appears to have underlying renovascular disease and is predisposed to further renal insufficiency with diuretics; however, as long as serum creatinine remains relatively stable, diuretics need to be continued in order to decrease abdominal ascites accumulation and frequency of paracentesis procedures; -see below regarding diuretics; Status: Acute Priority: Medium (2) CKD (chronic kidney disease), stage III Assessment and Plan: CKD IIIA with baseline serum creatinine ~1.3 corresponding to eGFR 56 ml/min; non-proteinuric kidney disease, 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; mainstay of treatment is avoiding nephrotoxic agents and over-diuresis (need to balance need for diuretics with worsening renal insufficiency); -will check PTH periodically for evidence of CKD mineral bone disorder (can be done as outpatient); -anemia of CKD/chronic disease with hgb currently at goal (10-11g) and iron replete, will monitor periodically; Status: Chronic (3) Cirrhosis of liver with ascites Assessment and Plan: Has history of frequent ascites accumulation recently; recently started on torsemide 10 mg daily, should continue and d/c IVF; should check bmp next week, if serum creatinine significantly higher, than we will need to cut back diuretics (to 5 mg daily) or stop completely; Status: Chronic Priority: High
[2018-04-24] MEDS: Sucralfate 1 gm/10 ml Oral Susp UD PO SCH ×2 (05:06→16:56)
[2018-04-24 08:42] LABS: BASO # 0.04 K/mm3 (0.0-2.0); EOS # 0.3 (0.0-0.7); EOS % 7.2 % (1.5-5.0); GRAN # 2.14 (1.4-6.5); GRAN % 51.3 % (50.0-68.0); HEMOGLOBIN 10.1 g/dL (14.0-18.0); LYMPH # 0.9 (1.2-3.4); LYMPH % 22.5 % (22.0-35.0); MEAN CELL VOLUME 99.3 fl (80.0-105.0); MEAN CORPUSCULAR HEMOGLOBIN 33.4 pg (25.0-35.0); MEAN CORPUSCULAR HGB CONC 33.7 g/dl (31.0-37.0); MEAN PLATELET VOLUME 10.5 fl (7.0-11.0); MONO # 0.8 (0.1-0.6); RBC 3.02 10^6/uL (3.5-6.1); RED CELL DISTRIBUTION WIDTH 16.8 % (11.5-14.5); WHITE BLOOD COUNT 4.2 10^3/ul (4.5-11.0)
[2018-04-24 08:54] LABS: ALB/GLOB RATIO 0.9 (1.1-1.8); ALBUMIN 3.6 g/dL (3.0-4.8); CALCIUM 9.1 mg/dL (8.4-10.5)
[2018-04-24] MEDS: Cholecalciferol 1,000 INTLU TAB PO SCH (09:50)
--- NOTE | 2018-04-24 12:52 | CP.PCM.PN ---
<Rachel Castro - Last Filed: 04/24/18 12:48> Subjective - Date & Time of Evaluation Date of Evaluation: 04/24/18 Time of Evaluation: 12:48 - Subjective Subjective: Rachel Castro, PGY1, Progress Note for Dr Rosales: Patient seen and examined at bedside. Pt reports nausea and 4-5 bilious, vomiting episodes overnight consisting of phlegm, nonbloody. Pt also reports mild dizziness. Denies fever, chills, cp, sob, abdominal pain. Objective - Vital Signs/Intake and Output Vital Signs (last 24 hours): Temp Pulse Resp BP Pulse Ox 97.7 F 67 16 99/65 L 97 04/23/18 10:00 04/23/18 10:00 04/23/18 10:00 04/24/18 09:49 04/22/18 16:49 - Medications Medications: Current Medications Cholecalciferol (Vitamin D) 1,000 intlu PO DAILY [facility] Last Admin: 04/24/18 09:50 Dose: 1,000 intlu Al Hydrox/Mg Hydrox/Simethicone 30 ml/Diphenhydramine HCl 75 mg/Lidocaine 30 ml 0 ml PO Q2H PRN; Protocol PRN Reason: Mouth/Throat Pain Last Admin: 04/20/18 08:05 Dose: 30 ml Cyanocobalamin (Vitamin B12 1000 Mcg Tab) 1,000 mcg PO DAILY [facility] PRN Reason: Protocol Last Admin: 04/24/18 09:50 Dose: 1,000 mcg Famotidine (Pepcid) 40 mg PO HS [facility] Last Admin: 04/23/18 21:34 Dose: 40 mg Lactulose (Enulose) 20 gm PO DAILY [facility] PRN Reason: Protocol Last Admin: 04/24/18 09:49 Dose: 20 gm Midodrine (Proamatine) 10 mg PO 0800,1200,1600 [facility] PRN Reason: Protocol Last Admin: 04/24/18 07:47 Dose: 10 mg Ondansetron HCl (Zofran Inj) 4 mg IVP Q6H PRN; Protocol PRN Reason: Nausea/Vomiting Last Admin: 04/24/18 05:51 Dose: 4 mg Propranolol HCl (Inderal) 10 mg PO BID [facility] PRN Reason: Protocol Last Admin: 04/24/18 09:49 Dose: 10 mg Sucralfate (Carafate Oral Susp) 1 gm PO 0600,1600 [facility] Last Admin: 04/24/18 05:06 Dose: 1 gm Torsemide (Demadex) 10 mg PO DAILY [facility] PRN Reason: Protocol Last Admin: 04/24/18 10:02 Dose: Not Given Tramadol HCl (Ultram) 50 mg PO TID PRN; Protocol PRN Reason: Pain, moderate (4-7) Last Admin: 04/24/18 05:51 Dose: 50 mg - Labs Labs: 04/24/18 08:30 04/24/18 08:30 - Constitutional Appears: Non-toxic, Chronically Ill - Head Exam Head Exam: ATRAUMATIC, NORMOCEPHALIC - Eye Exam Eye Exam: EOMI, PERRL. absent: Conjunctival injection, Nystagmus, Scleral icterus Pupil Exam: NORMAL ACCOMODATION, PERRL. absent: Fixed, Irregular, Unequal - ENT Exam ENT Exam: Mucous Membranes Dry - Neck Exam Neck Exam: Full ROM - Respiratory Exam Respiratory Exam: Decreased Breath Sounds - Cardiovascular Exam Cardiovascular Exam: RRR, +S1, +S2. absent: Murmur - GI/Abdominal Exam GI & Abdominal Exam: Distended, Soft, Tenderness (mild diffuse), Normal Bowel Sounds. absent: Firm, Guarding, Rigid, Mass, Rebound - Extremities Exam Extremities Exam: Normal Inspection. absent: Calf Tenderness, Pedal Edema - Back Exam Back Exam: NORMAL INSPECTION - Neurological Exam Neurological Exam: Alert, Awake, Oriented x3 - Psychiatric Exam Psychiatric exam: Anxious, Depressed, Normal Mood - Skin Skin Exam: Dry, Normal Color, Warm Assessment and Plan - Assessment and Plan (Free Text) Assessment: 63M w/PMH HTN, diastolic CHF, Atrial Fibrillation s/p cardioversion, CKD stage 3B, non-alcoholic liver cirrhosis of unclear etiology, hepatic encephalopathy, chronic ascites, esophageal varices s/p banding, and GERD admitted to TCU s/p hospitalization for esophageal variceal bleeding s/p banding x2 & dysphagia, now with deconditioning requiring rehabilitation. During TCU stay, patient found to have KEYUR, which is stable as per renal. Pt complains of nausea, vomiting and dizziness today: Dizziness: 2/2 poor PO intake/diuretic use soft diet hold torsemide x 1 day. resume tomorrow Dysphgia/odynophagia Magic mouthwash prn - patient informed that he needs to ask for magic mouthwash for throat pain. Zofran 4 mg IV q4 prn. Gave a one time dose of reglan. carafate soft diet Monitor KEYUR on CKD Creatinine improving to baseline. renal consulted. appreciate recs. Vitamin D Torsemide held today due to dizziness. Avoid nephrotoxic agents Hypotension Midodrine Propranolol Monitor Cirrhosis w/ascites s/p paracentesis on 04/11 lactulose Monitor Chronic pain Tramadol Monitor GI/DVT ppx Pepcid SCDs Ambulate Dispo TCU rehab PT OT Altered GI/hepatic diet Supplements Monitor for skin break down Wound care PRN Case discussed with Dr. Rosales. Rachel Castro, PGY1 <Felicita Rosales - Last Filed: 04/24/18 16:05> Objective - Vital Signs/Intake and Output Vital Signs (last 24 hours): Temp Pulse Resp BP Pulse Ox 97.7 F 67 16 99/65 L 97 04/23/18 10:00 04/23/18 10:00 04/23/18 10:00 04/24/18 09:49 04/22/18 16:49 - Medications Medications: Current Medications Cholecalciferol (Vitamin D) 1,000 intlu PO DAILY [facility] Last Admin: 04/24/18 09:50 Dose: 1,000 intlu Al Hydrox/Mg Hydrox/Simethicone 30 ml/Diphenhydramine HCl 75 mg/Lidocaine 30 ml 0 ml PO Q2H PRN; Protocol PRN Reason: Mouth/Throat Pain Last Admin: 04/20/18 08:05 Dose: 30 ml Cyanocobalamin (Vitamin B12 1000 Mcg Tab) 1,000 mcg PO DAILY [facility] PRN Reason: Protocol Last Admin: 04/24/18 09:50 Dose: 1,000 mcg Famotidine (Pepcid) 40 mg PO HS [facility] Last Admin: 04/23/18 21:34 Dose: 40 mg Lactulose (Enulose) 20 gm PO DAILY [facility] PRN Reason: Protocol Last Admin: 04/24/18 09:49 Dose: 20 gm Midodrine (Proamatine) 10 mg PO 0800,1200,1600 [facility] PRN Reason: Protocol Last Admin: 04/24/18 13:25 Dose: 10 mg Ondansetron HCl (Zofran Inj) 4 mg IVP Q6H PRN; Protocol PRN Reason: Nausea/Vomiting Last Admin: 04/24/18 15:02 Dose: 4 mg Propranolol HCl (Inderal) 10 mg PO BID [facility] PRN Reason: Protocol Last Admin: 04/24/18 09:49 Dose: 10 mg Sucralfate (Carafate Oral Susp) 1 gm PO 0600,1600 [facility] Last Admin: 04/24/18 05:06 Dose: 1 gm Torsemide (Demadex) 10 mg PO DAILY [facility] PRN Reason: Protocol Last Admin: 04/24/18 10:02 Dose: Not Given Tramadol HCl (Ultram) 50 mg PO TID PRN; Protocol PRN Reason: Pain, moderate (4-7) Last Admin: 04/24/18 05:51 Dose: 50 mg - Labs Labs: 04/24/18 08:30 04/24/18 08:30 Attending/Attestation - Attestation I have personally seen and examined this patient.: Yes I have fully participated in the care of the patient.: Yes I have reviewed all pertinent clinical information, including history, physical exam and plan: Yes Notes (Text): 04/24/18 16:04 Attending note; Patient seen and examined with resident in TCU. Patient is alert, awake. Complaining of nausea. Vomited a few times last night. Denies any abdominal pain. Got Zofran and this morning. Patient is a 63 year old male with past medical history of hypertension, h/o afib s/p cardioversion, CKD, non-alcoholic liver cirrhosis, ascites, and esophageal varices s/p banding who presented with complaint of hematemesis, dysphagia, abdominal distention and dyspnea. CT abd/pelvis showed large ascites and moderate right pleural effusion. s/p paracentesis. acute on chronic renal failure. Poor by mouth intake. Hold torsemide today. Monitor creatinine. Nausea vomiting; Zofran given. Give one dose of Reglan. Continue Pepcid, Carafate and started on Magic mouthwash. Continue ensure for nutrition supplementation. Upon discharge the patient will follow-up with PMD DR. Bishop. Patient also needs close follow-up with [facility]. Prognosis is poor.
[2018-04-25] MEDS: Sucralfate 1 gm/10 ml Oral Susp UD PO SCH ×2 (05:49→16:33)
[2018-04-25] MEDS: Cholecalciferol 1,000 INTLU TAB PO SCH (10:01)
--- NOTE | 2018-04-25 23:36 | CP.PCM.PN ---
Subjective - Date & Time of Evaluation Date of Evaluation: 04/25/18 Time of Evaluation: 11:30 - Subjective Subjective: Reports feeling well; still with odynophagia but tolerating advanced diet; no sob; Objective - Vital Signs/Intake and Output Vital Signs (last 24 hours): Temp Pulse Resp BP Pulse Ox 98.5 F 58 L 18 114/63 97 04/25/18 16:00 04/25/18 16:00 04/25/18 16:00 04/25/18 16:00 04/25/18 16:00 Intake and Output: 04/25/18 04/26/18 18:59 06:59 Intake Total 380 Balance 380 - Medications Medications: Current Medications Cholecalciferol (Vitamin D) 1,000 intlu PO DAILY [facility] Last Admin: 04/25/18 10:01 Dose: 1,000 intlu Al Hydrox/Mg Hydrox/Simethicone 30 ml/Diphenhydramine HCl 75 mg/Lidocaine 30 ml 0 ml PO Q2H PRN; Protocol PRN Reason: Mouth/Throat Pain Last Admin: 04/20/18 08:05 Dose: 30 ml Cyanocobalamin (Vitamin B12 1000 Mcg Tab) 1,000 mcg PO DAILY [facility] PRN Reason: Protocol Last Admin: 04/25/18 10:01 Dose: 1,000 mcg Famotidine (Pepcid) 40 mg PO HS [facility] Last Admin: 04/25/18 21:00 Dose: 40 mg Lactulose (Enulose) 20 gm PO DAILY [facility] PRN Reason: Protocol Last Admin: 04/25/18 10:00 Dose: 20 gm Midodrine (Proamatine) 10 mg PO 0800,1200,1600 [facility] PRN Reason: Protocol Last Admin: 04/25/18 16:34 Dose: 10 mg Ondansetron HCl (Zofran Inj) 4 mg IVP Q6H PRN; Protocol PRN Reason: Nausea/Vomiting Last Admin: 04/25/18 15:44 Dose: 4 mg Propranolol HCl (Inderal) 10 mg PO BID [facility] PRN Reason: Protocol Last Admin: 04/25/18 17:34 Dose: 10 mg Sucralfate (Carafate Oral Susp) 1 gm PO 0600,1600 [facility] Last Admin: 04/25/18 16:33 Dose: 1 gm Torsemide (Demadex) 5 mg PO DAILY [facility] PRN Reason: Protocol Tramadol HCl (Ultram) 50 mg PO TID PRN; Protocol PRN Reason: Pain, moderate (4-7) Last Admin: 04/25/18 20:44 Dose: 50 mg - Labs Labs: 04/24/18 08:30 04/24/18 08:30 - Constitutional Appears: Non-toxic, No Acute Distress - Eye Exam Eye Exam: absent: Scleral icterus - ENT Exam ENT Exam: Mucous Membranes Moist - Respiratory Exam Respiratory Exam: Clear to Ausculation Bilateral. absent: Respiratory Distress - Cardiovascular Exam Cardiovascular Exam: RRR, +S1, +S2 - GI/Abdominal Exam GI & Abdominal Exam: Distended, Soft, Tenderness Additional comments: mildly tenderness/distention - Exam Exam: absent: Bladder Distension - Extremities Exam Additional comments: no leg edema - Neurological Exam Neurological Exam: Alert, Awake - Psychiatric Exam Psychiatric exam: Normal Affect, Normal Mood. absent: Agitated - Skin Skin Exam: Warm. absent: Cyanosis Assessment and Plan (1) KEYUR (acute kidney injury) Assessment & Plan: Pre-renal etiology in the setting of being on diuretics; discusses with primary team that we should continue diuretics to prevent ascites accumulation and that we will have to tolerate some degree of worsened renal insufficiency; -restart torsemide 10 mg daily; -avoid nephrotoxic agents (NSAIDS, phosphate enema) Status: Acute (2) CKD (chronic kidney disease), stage III Assessment & Plan: CKD IIIA, with likely renovascular disease; see above; will monitor CKD parameters periodically (PTH, iron studies monthly); Status: Chronic (3) Cirrhosis of liver with ascites Assessment & Plan: Only mild abd distention currently; continue diuretics as above; Status: Chronic
[2018-04-26] MEDS: Sucralfate 1 gm/10 ml Oral Susp UD PO SCH ×2 (05:10→16:57)
[2018-04-26] MEDS: Cholecalciferol 1,000 INTLU TAB PO SCH (09:40)
--- NOTE | 2018-04-26 16:11 | CP.PCM.PN ---
Subjective - Date & Time of Evaluation Date of Evaluation: 04/26/18 Time of Evaluation: 16:08 - Subjective Subjective: Rachel Castro, PGY1, Progress Note for Dr Humphrey Patient seen and examined at bedside. No acute events overnight. Reports feeling well, tolerating diet well, ambulating well. Denies fever, chills, cp, sob, abdominal pain. Objective - Vital Signs/Intake and Output Vital Signs (last 24 hours): Temp Pulse Resp BP Pulse Ox 98.5 F 58 L 18 100/64 97 04/25/18 16:00 04/25/18 16:00 04/25/18 16:00 04/26/18 09:39 04/25/18 16:00 Intake and Output: 04/26/18 04/26/18 06:59 18:59 Intake Total 380 Balance 380 - Medications Medications: Current Medications Cholecalciferol (Vitamin D) 1,000 intlu PO DAILY [facility] Last Admin: 04/26/18 09:40 Dose: 1,000 intlu Al Hydrox/Mg Hydrox/Simethicone 30 ml/Diphenhydramine HCl 75 mg/Lidocaine 30 ml 0 ml PO Q2H PRN; Protocol PRN Reason: Mouth/Throat Pain Last Admin: 04/20/18 08:05 Dose: 30 ml Cyanocobalamin (Vitamin B12 1000 Mcg Tab) 1,000 mcg PO DAILY [facility] PRN Reason: Protocol Last Admin: 04/26/18 09:40 Dose: 1,000 mcg Famotidine (Pepcid) 40 mg PO HS [facility] Last Admin: 04/25/18 21:00 Dose: 40 mg Lactulose (Enulose) 20 gm PO DAILY [facility] PRN Reason: Protocol Last Admin: 04/26/18 09:39 Dose: 20 gm Midodrine (Proamatine) 10 mg PO 0800,1200,1600 [facility] PRN Reason: Protocol Last Admin: 04/26/18 12:30 Dose: 10 mg Ondansetron HCl (Zofran Inj) 4 mg IVP Q6H PRN; Protocol PRN Reason: Nausea/Vomiting Last Admin: 04/25/18 15:44 Dose: 4 mg Propranolol HCl (Inderal) 10 mg PO BID [facility] PRN Reason: Protocol Last Admin: 04/26/18 09:39 Dose: 10 mg Sucralfate (Carafate Oral Susp) 1 gm PO 0600,1600 [facility] Last Admin: 04/26/18 05:10 Dose: 1 gm Torsemide (Demadex) 5 mg PO DAILY [facility] PRN Reason: Protocol Last Admin: 04/26/18 09:39 Dose: 5 mg Tramadol HCl (Ultram) 50 mg PO TID PRN; Protocol PRN Reason: Pain, moderate (4-7) Last Admin: 04/25/18 20:44 Dose: 50 mg - Labs Labs: 04/24/18 08:30 04/24/18 08:30 - Additional Findings Additional findings: - Constitutional Appears: Non-toxic, Chronically Ill - Head Exam Head Exam: ATRAUMATIC, NORMOCEPHALIC - Eye Exam Eye Exam: EOMI, PERRL. absent: Conjunctival injection, Nystagmus, Scleral icterus Pupil Exam: NORMAL ACCOMODATION, PERRL. absent: Fixed, Irregular, Unequal - ENT Exam ENT Exam: Mucous Membranes Dry - Neck Exam Neck Exam: Full ROM - Respiratory Exam Respiratory Exam: Decreased Breath Sounds - Cardiovascular Exam Cardiovascular Exam: RRR, +S1, +S2. absent: Murmur - GI/Abdominal Exam GI & Abdominal Exam: Distended, Soft, Tenderness (mild diffuse), Normal Bowel Sounds. absent: Firm, Guarding, Rigid, Mass, Rebound - Extremities Exam Extremities Exam: Normal Inspection. absent: Calf Tenderness, Pedal Edema - Back Exam Back Exam: NORMAL INSPECTION - Neurological Exam Neurological Exam: Alert, Awake, Oriented x3 - Psychiatric Exam Psychiatric exam: Anxious, Depressed, Normal Mood - Skin Skin Exam: Dry, Normal Color, Warm Assessment and Plan - Assessment and Plan (Free Text) Assessment: 63M w/PMH HTN, diastolic CHF, Atrial Fibrillation s/p cardioversion, CKD stage 3B, non-alcoholic liver cirrhosis of unclear etiology, hepatic encephalopathy, chronic ascites, esophageal varices s/p banding, and GERD admitted to TCU s/p hospitalization for esophageal variceal bleeding s/p banding x2 & dysphagia, now with deconditioning requiring rehabilitation. During TCU stay, patient found to have KEYUR, which is stable as per renal. Pt awaiting [facility] placement ( likely [facility]): Dizziness: 2/2 poor PO intake/diuretic use resolved soft diet Dysphgia/odynophagia improving Magic mouthwash prn Zofran 4 mg IV q4 prn. carafate soft diet Monitor KEYUR on CKD Creatinine improving to baseline. renal consulted. appreciate recs. Vitamin D Torsemide held today due to dizziness. Avoid nephrotoxic agents Hypotension Midodrine Propranolol Monitor Cirrhosis w/ascites s/p paracentesis on 04/11 lactulose Monitor Chronic pain Tramadol Monitor GI/DVT ppx Pepcid SCDs Ambulate Dispo: awaiting placement at [facility] Altered GI/hepatic diet Supplements Monitor for skin break down Wound care PRN Case discussed with Dr. Humphrey. Rachel Castro, PGY1
[2018-04-26 16:52] VITALS: O2SAT 96
[2018-04-27] MEDS: Sucralfate 1 gm/10 ml Oral Susp UD PO SCH (05:20)
[2018-04-27] MEDS: Cholecalciferol 1,000 INTLU TAB PO SCH (09:01)
[2018-04-27 11:18] VITALS: BP 134/69; PULSE 53; RESP 14; TEMP 97.8
--- NOTE | 2018-04-27 20:42 | CP.PCM.DIS ---
<Rachel Castro - Last Filed: 04/27/18 21:03> Provider - Provider Date of Admission: 04/19/18 13:26 Attending physician: Felicita Rosales MD Primary care physician: Surinder Bishop MD Consults: Elsa De Oliveira Time Spent in preparation of Discharge (in minutes): 60 Diagnosis - Discharge Diagnosis (1) Esophageal varices with bleeding Status: Acute (2) Abdominal pain Status: Acute Priority: Medium (3) Ascites Status: Acute Hospital Course - Lab Results Lab Results: Most Recent Lab Values WBC 4.2 10^3/ul (4.5-11.0) L 04/24/18 08:30 RBC 3.02 10^6/uL (3.5-6.1) L 04/24/18 08:30 Hgb 10.1 g/dL (14.0-18.0) L 04/24/18 08:30 Hct 30.0 % (42.0-52.0) L 04/24/18 08:30 MCV 99.3 fl (80.0-105.0) 04/24/18 08:30 MCH 33.4 pg (25.0-35.0) 04/24/18 08:30 MCHC 33.7 g/dl (31.0-37.0) 04/24/18 08:30 RDW 16.8 % (11.5-14.5) H 04/24/18 08:30 Plt Count 67 10^3/uL (120.0-450.0) L 04/24/18 08:30 MPV 10.5 fl (7.0-11.0) 04/24/18 08:30 Gran % 51.3 % (50.0-68.0) 04/24/18 08:30 Lymph % (Auto) 22.5 % (22.0-35.0) 04/24/18 08:30 [place] % (Auto) 18.0 % (1.0-6.0) H 04/24/18 08:30 Eos % (Auto) 7.2 % (1.5-5.0) H 04/24/18 08:30 Baso % (Auto) 1.0 % (0.0-3.0) 04/24/18 08:30 Gran # 2.14 (1.4-6.5) 04/24/18 08:30 Lymph # (Auto) 0.9 (1.2-3.4) L 04/24/18 08:30 [place] # (Auto) 0.8 (0.1-0.6) H 04/24/18 08:30 Eos # (Auto) 0.3 (0.0-0.7) 04/24/18 08:30 Baso # (Auto) 0.04 K/mm3 (0.0-2.0) 04/24/18 08:30 Sodium 141 mmol/L (132-148) 04/24/18 08:30 Potassium 4.2 mmol/L (3.6-5.0) 04/24/18 08:30 Chloride 100 mmol/L (98-107) 04/24/18 08:30 Carbon Dioxide 32 mmol/L (21-33) 04/24/18 08:30 Anion Gap 14 (10-20) 04/24/18 08:30 BUN 36 mg/dL (7-21) H 04/24/18 08:30 Creatinine 1.7 mg/dl (0.8-1.5) H 04/24/18 08:30 Est GFR ( Amer) 50 04/24/18 08:30 Est GFR (Non-Af Amer) 41 04/24/18 08:30 Random Glucose 87 mg/dL (70-110) 04/24/18 08:30 Calcium 9.1 mg/dL (8.4-10.5) 04/24/18 08:30 Total Bilirubin 2.3 mg/dL (0.2-1.3) H 04/24/18 08:30 AST 53 U/L (17-59) 04/24/18 08:30 ALT 32 U/L (7-56) 04/24/18 08:30 Alkaline Phosphatase 282 U/L (38-126) H 04/24/18 08:30 Ammonia 20 umol/L (9-33) 04/27/18 10:25 Total Protein 7.8 g/dL (5.8-8.3) 04/24/18 08:30 Albumin 3.6 g/dL (3.0-4.8) 04/24/18 08:30 Globulin 4.2 gm/dL 04/24/18 08:30 Albumin/Globulin Ratio 0.9 (1.1-1.8) L 04/24/18 08:30 - Hospital Course Hospital Course: 63M w/ PMH HTN, diastolic CHF, Atrial Fibrillation s/p cardioversion, CKD stage 3B, non-alcoholic liver cirrhosis of unclear etiology, hepatic encephalopathy, chronic ascites, esophageal varices s/p banding, and GERD admitted to TCU s/p hospitalization for esophageal variceal bleeding s/p banding x2, paracentesis, now with deconditioning requiring rehabilitation. During TCU stay, patient found to have KEYUR, which is stable as per renal, can continue with Torsemide. Check Cr level every week. Pt's nausea, vomiting, PO intake stable. Pt ambulating well in [facility]. Pt discharged to [facility] rehab in [place] for 5 days. Pt to follow up with hepatology clinic in 1 week, PMD in [address] De Oliveira as well. Meds as per JAN. Case discussed with Dr Humphrey. Rachel Castro, PGY1 Discharge Exam - Head Exam Head Exam: ATRAUMATIC, NORMOCEPHALIC - Eye Exam Eye Exam: EOMI, PERRL. absent: Conjunctival injection, Nystagmus, Scleral icterus Pupil Exam: NORMAL ACCOMODATION, PERRL. absent: Fixed, Irregular, Unequal - ENT Exam ENT Exam: Mucous Membranes Moist - Neck Exam Neck exam: Full Rom - Respiratory Exam Respiratory Exam: Clear to PA & Lateral, NORMAL BREATHING PATTERN, UNREMARKABLE. absent: Chest Wall Tenderness, Rales, Rhonchi, Wheezes, Respiratory Distress, Stridor - Cardiovascular Exam Cardiovascular Exam: RRR, +S1, +S2. absent: Systolic Murmur - GI/Abdominal Exam GI & Abdominal Exam: Normal Bowel Sounds, Soft. absent: Distended, Firm, Guarding, Mass, Organomegaly, Rebound, Rigid, Tenderness - Extremities Exam Extremities exam: normal inspection - Back Exam Back exam: NORMAL INSPECTION - Neurological Exam Neurological exam: Alert, Oriented x3 - Psychiatric Exam Psychiatric exam: Normal Affect, Normal Mood - Skin Skin Exam: Dry, Normal Color, Warm Discharge Plan - Follow Up Plan Condition: GOOD Disposition: OTHER INSTITUTION Instructions: Gastrointestinal Bleeding (DC), Cirrhosis (DC), Chronic Kidney Disease (DC) Additional Instructions: - Resume meds as ordered - Follow up with hepatology clinic in 1 week at [facility] - Obtain Cr level every week to monitor levels. Baseline Cr is 1.5. - Follow up with PMD in 1 week. - Follow up with Dr De Oliveira in 1 week. Return to ER for any concerns. Referrals: Surinder Bishop MD [Primary Care Provider] - <Rayo Humphrey - Last Filed: 04/28/18 08:44> Provider - Provider Date of Admission: 04/19/18 13:26 Attending physician: Felicita Rosales MD Primary care physician: Surindre Bishop MD Hospital Course - Lab Results Lab Results: Most Recent Lab Values WBC 4.2 10^3/ul (4.5-11.0) L 04/24/18 08:30 RBC 3.02 10^6/uL (3.5-6.1) L 04/24/18 08:30 Hgb 10.1 g/dL (14.0-18.0) L 04/24/18 08:30 Hct 30.0 % (42.0-52.0) L 04/24/18 08:30 MCV 99.3 fl (80.0-105.0) 04/24/18 08:30 MCH 33.4 pg (25.0-35.0) 04/24/18 08:30 MCHC 33.7 g/dl (31.0-37.0) 04/24/18 08:30 RDW 16.8 % (11.5-14.5) H 04/24/18 08:30 Plt Count 67 10^3/uL (120.0-450.0) L 04/24/18 08:30 MPV 10.5 fl (7.0-11.0) 04/24/18 08:30 Gran % 51.3 % (50.0-68.0) 04/24/18 08:30 Lymph % (Auto) 22.5 % (22.0-35.0) 04/24/18 08:30 [place] % (Auto) 18.0 % (1.0-6.0) H 04/24/18 08:30 Eos % (Auto) 7.2 % (1.5-5.0) H 04/24/18 08:30 Baso % (Auto) 1.0 % (0.0-3.0) 04/24/18 08:30 Gran # 2.14 (1.4-6.5) 04/24/18 08:30 Lymph # (Auto) 0.9 (1.2-3.4) L 04/24/18 08:30 [place] # (Auto) 0.8 (0.1-0.6) H 04/24/18 08:30 Eos # (Auto) 0.3 (0.0-0.7) 04/24/18 08:30 Baso # (Auto) 0.04 K/mm3 (0.0-2.0) 04/24/18 08:30 Sodium 141 mmol/L (132-148) 04/24/18 08:30 Potassium 4.2 mmol/L (3.6-5.0) 04/24/18 08:30 Chloride 100 mmol/L (98-107) 04/24/18 08:30 Carbon Dioxide 32 mmol/L (21-33) 04/24/18 08:30 Anion Gap 14 (10-20) 04/24/18 08:30 BUN 36 mg/dL (7-21) H 04/24/18 08:30 Creatinine 1.7 mg/dl (0.8-1.5) H 04/24/18 08:30 Est GFR ( Amer) 50 04/24/18 08:30 Est GFR (Non-Af Amer) 41 04/24/18 08:30 Random Glucose 87 mg/dL (70-110) 04/24/18 08:30 Calcium 9.1 mg/dL (8.4-10.5) 04/24/18 08:30 Total Bilirubin 2.3 mg/dL (0.2-1.3) H 04/24/18 08:30 AST 53 U/L (17-59) 04/24/18 08:30 ALT 32 U/L (7-56) 04/24/18 08:30 Alkaline Phosphatase 282 U/L (38-126) H 04/24/18 08:30 Ammonia 20 umol/L (9-33) 04/27/18 10:25 Total Protein 7.8 g/dL (5.8-8.3) 04/24/18 08:30 Albumin 3.6 g/dL (3.0-4.8) 04/24/18 08:30 Globulin 4.2 gm/dL 04/24/18 08:30 Albumin/Globulin Ratio 0.9 (1.1-1.8) L 04/24/18 08:30 Attending/Attestation - Attestation I have personally seen and examined this patient.: Yes I have fully participated in the care of the patient.: Yes I have reviewed all pertinent clinical information, including history, physical exam and plan: Yes Notes (Text): Patient seen and examined with the residents. Agree with above
--- NOTE | 2018-04-27 23:42 | CP.PCM.PN ---
Objective - Vital Signs/Intake and Output Vital Signs (last 24 hours): Temp Pulse Resp BP Pulse Ox 97.8 F 53 L 14 134/69 96 04/27/18 10:00 04/27/18 10:00 04/27/18 10:00 04/27/18 10:00 04/26/18 16:00 Intake and Output: 04/27/18 04/28/18 18:59 06:59 Intake Total 420 Balance 420 - Labs Labs: 04/24/18 08:30 04/24/18 08:30 Assessment and Plan (1) KEYUR (acute kidney injury) Status: Acute (2) CKD (chronic kidney disease), stage III Status: Chronic (3) Cirrhosis of liver with ascites Status: Chronic
== END 2018-04-27 14:04 | disposition home or self-care (01) | DRG 432 ==
LOC: TRCU 13:26
PROVIDERS: ADMIT Internal Medicine; ATTEND Internal Medicine
PROC: F07Z9FZ Gait Training/Functional Ambulation Treatment using Assistive, Adaptive, Supportive or Protective Equipment (ICD-10-PCS; principal; 2018-04-20)
PROC: F08Z4FZ Home Management Treatment using Assistive, Adaptive, Supportive or Protective Equipment (ICD-10-PCS; 2018-04-20)
DX: K74.60 Unspecified cirrhosis of liver (principal); I85.11 Secondary esophageal varices with bleeding; R18.8 Other ascites; I13.0 Hypertensive heart and chronic kidney disease with heart failure and stage 1 through stage 4 chronic kidney disease, or unspecified chronic kidney disease; I50.32 Chronic diastolic (congestive) heart failure; N17.9 Acute kidney failure, unspecified; N18.3 Chronic kidney disease, stage 3 (moderate); D63.1 Anemia in chronic kidney disease; I48.91 Unspecified atrial fibrillation; K72.90 Hepatic failure, unspecified without coma; K21.9 Gastro-esophageal reflux disease without esophagitis; R13.10 Dysphagia, unspecified; G89.29 Other chronic pain; Z87.891 Personal history of nicotine dependence

== ENCOUNTER 2018-08-10 23:56 | Inpatient (IN) | payer BC ==
--- NOTE | 2018-08-11 01:52 | ED PDOC ---
Arrival/HPI - General Chief Complaint: Shortness Of Breath Time Seen by Provider: 08/11/18 00:00 Historian: Patient - History of Present Illness Narrative History of Present Illness (Text): 08/11/18 01:49 A 63 year old male, whose past medical history includes non-alcoholic liver cirrhosis of unclear etiology, hepatic encephalopathy, chronic ascites, esophageal varices, CKD stage 3B, HTN, diastolic CHF, Atrial Fibrillation, presents to the emergency department for further evaluation of shortness of breath. Patient notes that he was discharged a few weeks ago from [facility] and notes that they drained fluid from his abdomen. He notes that he is unable to take Lasix. The patient denies fevers, chills, headache, dizziness, chest pain, cough, nausea, vomiting, diarrhea, back pain, neck pain, urinary/bowel changes, or any other complaint. PMD: Dr. Bishop Time/Duration: Other (2 PM yesterday) Symptom Onset: Sudden Symptom Course: Unchanged Activities at Onset: Rest, Light Context: Home Past Medical History - Provider Review Nursing Documentation Reviewed: Yes - Infectious Disease Hx of Infectious Diseases: None - Tetanus Immunization Tetanus Immunization: Unknown - Cardiac Hx Congestive Heart Failure: Yes Hx Hypertension: Yes - Pulmonary Hx Pneumonia: Yes - Neurological Hx Neurological Disorder: No - HEENT Hx HEENT Disorder: No - Renal Hx Renal Failure: Yes (CKD stage 3B) - Endocrine/Metabolic Hx Endocrine Disorders: No - Hematological/Oncological Hx Blood Transfusions: Yes Hx Blood Transfusion Reaction: No - Integumentary Hx Dermatological Disorder: No - Musculoskeletal/Rheumatological Hx Falls: No - Gastrointestinal Hx Gastrointestinal Disorders: Yes (ESOPHAGEAL VARICES,DYSPHAGIA,GERD, HEPATOCEPHALOPATHY,GI BLEED) - Genitourinary/Gynecological Hx Genitourinary Disorders: No Hx Reproductive Disorders: No - Psychiatric Hx Anxiety: Yes Hx Depression: Yes Hx Substance Use: No - Surgical History Hx Cardiac Catheterization: Yes Hx Coronary Stent: Yes - Anesthesia Hx Anesthesia Reactions: No Hx Malignant Hyperthermia: No Family/Social History - Physician Review Nursing Documentation Reviewed: Yes Family/Social History: No Known Family HX Smoking Status: Former Smoker Hx Alcohol Use: No Hx Substance Use: No Allergies/Home Meds Allergies/Adverse Reactions: Allergies Beef Containing Products Allergy (Severe, Verified 04/19/18 14:52) ANAPHYLAXIS tounge swelling, beef derived (bovine) Allergy (Severe, Verified 04/19/18 14:52) ANAPHYLAXIS tounge swelling banana Allergy (Intermediate, Verified 04/19/18 14:52) ITCHING velcro Allergy (Uncoded 04/19/18 14:52) ITCHING Home Medications: Home Meds Medication Instructions Recorded Confirmed Cyanocobalamin [Vitamin B12 1000 1,000 mcg PO DAILY 11/20/17 04/19/18 mcg Tab] ALPRAZolam [Xanax] 0.5 mg PO HS 01/25/18 04/19/18 Zinc Sulfate [Orazinc] 220 mg PO BID 03/24/18 04/19/18 Review of Systems - Physician Review All systems were reviewed & negative as marked: Yes - Review of Systems Constitutional: absent: Fevers Respiratory: SOB Cardiovascular: absent: Chest Pain Gastrointestinal: absent: Stool Changes, Diarrhea, Nausea, Vomiting Genitourinary Male: absent: Urinary Output Changes Musculoskeletal: absent: Back Pain, Neck Pain Neurological: absent: Headache, Dizziness Physical Exam Vital Signs Reviewed: Yes Vital Signs Temp Pulse Resp BP Pulse Ox 08/11/18 04:46 98.2 F 76 17 110/57 L 99 08/11/18 03:35 65 17 111/84 100 08/11/18 01:30 23 100 08/11/18 00:05 97.7 F 62 23 145/107 H 100 Temperature: Afebrile Blood Pressure: Hypertensive Pulse: Regular Respiratory Rate: Normal Appearance: Positive for: Well-Appearing, Non-Toxic, Comfortable Pain Distress: None Mental Status: Positive for: Alert and Oriented X 3 - Systems Exam Head: Present: Atraumatic, Normocephalic Pupils: Present: PERRL Extroacular Muscles: Present: EOMI Conjunctiva: Present: Normal Mouth: Present: Moist Mucous Membranes Neck: Present: Normal Range of Motion Respiratory/Chest: Present: Rales (Fine rales at bases bilaterally), Other ( Crackles at bases bilaterally. Patient winded with conversation. ) Cardiovascular: Present: Regular Rate and Rhythm, Normal S1, S2. No: Murmurs Abdomen: Present: Distention (Ascites) Back: Present: Normal Inspection Upper Extremity: Present: Normal Inspection. No: Cyanosis, Edema Lower Extremity: Present: Normal Inspection. No: Edema Neurological: Present: GCS=15, CN II-XII Intact, Speech Normal Skin: Present: Warm, Dry, Normal Color. No: Rashes Psychiatric: Present: Alert, Oriented x 3, Normal Insight, Normal Concentration Medical Decision Making ED Course and Treatment: 08/11/18 01:54 Impression: A 63 year old male presents to the emergency department with a complaint of shortness of breath. Plan: -- EKG -- Chest X-ray -- Blood Culture -- Labs -- Reassess and disposition Progress Notes: 08/11/18 01:23: Discharge history was discussed with [facility]. 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 Patient was tapped, and 8L of fluid were drawn from abdomen. 08/11/18 01:34: Case discussed with bacteriologist medical. 08/11/18 00:27 EKG: Ordered, reviewed, and independently interpreted the EKG. Rate : 62 BPM Rhythm : NSR Interpretation : LAD 08/11/18 01:30: Chest X-ray read and interpreted by me shows large pleural effusion. 08/11/18 02:35: Case discussed in detail with Dr. Reeder who accepts patient to his service. - Lab Interpretations Microbiology Results: Microbiology Results 08/11/18 02:05 Blood-Venous Blood Culture - Preliminary NO GROWTH AFTER 24 HOURS 08/11/18 01:45 Blood-Venous Blood Culture - Preliminary NO GROWTH AFTER 24 HOURS Lab Results: 08/11/18 02:05 08/11/18 02:05 Lab Results 08/11/18 02:05: Lipase 67 08/11/18 02:05: Ammonia 11 08/11/18 02:05: Sodium 137, Chloride 98, Potassium 3.5 L, Carbon Dioxide 30, Anion Gap 12, BUN 45 H, Creatinine 2.3 H, Est GFR ( Amer) 35, Est GFR ( Non-Af Amer) 29, Random Glucose 94, Calcium 8.9, Phosphorus 4.2, Magnesium 2.2, Total Bilirubin 2.9 H, Direct Bilirubin 1.3 H, AST 54, ALT 26, Alkaline Phosphatase 299 H, Lactate Dehydrogenase 449, Total Creatine Kinase 90, Troponin I 0.02 D, NT-Pro-B Natriuret Pep 1710 H, Total Protein 8.8 H, Albumin 3.2, Globulin 5.6, Albumin/Globulin Ratio 0.6 L 08/11/18 02:05: pO2 29 L, VBG pH 7.36, VBG pCO2 57.0, VBG HCO3 32.2 H, VBG Total CO2 33.9 H, VBG O2 Sat (Calc) 46.5, VBG Base Excess 5.1 H, VBG Potassium 3.5 L, Sodium 136.0, Chloride 100.0, Glucose 91, Lactate 1.5, FiO2 21.0, Venous Blood Potassium 3.5 L 08/11/18 02:05: PT 16.1 H, INR 1.40 08/11/18 02:05: WBC 12.4 H D, RBC 3.19 L, Hgb 10.7 L, Hct 31.8 L, MCV 99.7, MCH 33.5, MCHC 33.6, RDW 17.6 H, Plt Count 97 L, MPV 10.2, Gran % 86.1 H, Lymph % ( Auto) 4.8 L, [place] % (Auto) 7.1 H, Eos % (Auto) 1.6, Baso % (Auto) 0.4, Gran # 10.65 H, Lymph # (Auto) 0.6 L, [place] # (Auto) 0.9 H, Eos # (Auto) 0.2, Baso # ( Auto) 0.05, Neutrophils % (Manual) 84 H, Band Neutrophils % 3 H, Lymphocytes % ( Manual) 5 L, Monocytes % (Manual) 6, Eosinophils % (Manual) 2, Platelet Evaluation Normal I have reviewed the lab results: Yes - RAD Interpretation Radiology Orders: 08/11/18 01:30 CHEST PORTABLE [RAD] Stat - EKG Interpretation Interpreted by ED Physician: Yes Type: 12 lead EKG - Medication Orders Current Medication Orders: Albuterol/Ipratropium (Duoneb 3 Mg/0.5 Mg (3 Ml) Ud) 3 ml IH [id number] BIBIANA Last Admin: 08/12/18 02:16 Dose: 3 ml Alprazolam (Xanax) 0.5 mg PO HS [facility] PRN Reason: Protocol Stop: 08/18/18 22:01 Last Admin: 08/11/18 21:59 Dose: 0.5 mg Behavioural Document 08/11/18 21:59 FG (Rec: 08/11/18 21:59 FG [id number]) Maintenance Maintenance Dose Yes Nonmedicinal Nonmedicinal Interventions Therapeutic Communication Behavior Behavior for Medication: Anxiety Re-Assess: Reassess Psych Meds Document 08/11/18 22:59 FG (Rec: 08/11/18 23:24 FG [id number]) Reassess Psych Med Effective Famotidine (Pepcid) 20 mg PO HS [facility] Last Admin: 08/11/18 22:00 Dose: 20 mg Ceftriaxone Sodium (Rocephin 1 Gram Ivpb) 1 gm in 100 mls @ 100 mls/hr IVPB DAILY [facility] PRN Reason: Protocol Last Admin: 08/11/18 11:48 Dose: 100 mls/hr eMAR Start Stop Document 08/11/18 11:48 [facility] ER (Rec: 08/11/18 11:48 [id number] Intravenous Solution Start Date 08/11/18 Start Time 11:48 End Date 08/11/18 End time 12:50 Total Infusion Time 62 Azithromycin (Zithromax 500mg In Ns) 500 mg in 250 mls @ 167 mls/hr IVPB DAILY [facility] PRN Reason: Protocol Last Admin: 08/11/18 12:51 Dose: 167 mls/hr eMAR Start Stop Document 08/11/18 12:51 [facility] ER (Rec: 08/11/18 12:52 AUGIE [id number]) Intravenous Solution Start Date 08/11/18 Start Time 12:52 End Date 08/11/18 End time 13:55 Total Infusion Time 63 Lactulose (Enulose) 20 gm PO DAILY [facility] Last Admin: 08/11/18 11:47 Dose: 20 gm Midodrine (Proamatine) 10 mg PO TID [facility] Last Admin: 08/11/18 18:01 Dose: 10 mg Oxycodone HCl (Oxycodone Immediate Release Tab) 5 mg PO Q6H PRN PRN Reason: Pain, moderate (4-7) Last Admin: 08/11/18 05:15 Dose: 5 mg [facility] Pain Assessment Document 08/11/18 05:15 GC (Rec: 08/11/18 05:15 [id number] Pain Reassessment Is this a pain reassessment? No Sleep Is patient sleeping during reassessment? No Presence of Pain Presence of Pain Yes Pain Scale Used Pain Scale Used Numeric Re-Assess: MAR Pain Assessment Document 08/11/18 06:15 GC (Rec: 08/11/18 06:26 GC [id number]) Pain Reassessment Is this a pain reassessment? Yes Sleep Is patient sleeping during reassessment? Yes Propranolol HCl (Inderal) 10 mg PO BID [facility] Last Admin: 08/11/18 18:02 Dose: Not Given Non-Admin Reason: BP Parameters Not Met MAR Pulse and Blood Pressure Document 08/11/18 18:02 [facility] ER (Rec: 08/11/18 18:02 [facility] ER [id number]) Pulse Pulse Rate (60-90) 67 Blood Pressure Blood Pressure (100/60-150/90) 99/59 Rifaximin (Xifaxan) 550 mg PO BID [facility] PRN Reason: Protocol Last Admin: 08/11/18 18:01 Dose: 550 mg Discontinued Medications Albumin Human (Albumin Human 25% (12.5 Gm/50 Ml)) 12.5 gm IV ONCE ONE Stop: 08/11/18 04:22 Last Admin: 08/11/18 05:16 Dose: 12.5 gm eMAR Start Stop Document 08/11/18 05:16 GC (Rec: 08/11/18 05:16 [id number]) Intravenous Solution Start Date 08/11/18 Start Time 05:16 Albumin Human (Albumin Human 25% (12.5 Gm/50 Ml)) 12.5 gm IV ONCE ONE Stop: 08/11/18 06:01 Last Admin: 08/11/18 05:55 Dose: 12.5 gm eMAR Start Stop Document 08/11/18 05:55 GC (Rec: 08/11/18 05:56 GC [id number]) Intravenous Solution Start Date 08/11/18 Start Time 05:56 Potassium Chloride (K-Dur 20 Meq Er Tab) 40 meq PO STAT STA Stop: 08/11/18 04:09 Last Admin: 08/11/18 05:15 Dose: 40 meq - Scribe Statement The provider has reviewed the documentation as recorded by the Corina Munguia Provider Lizetibe Attestation: All medical record entries made by the Scribbossman were at my direction and personally dictated by me. I have reviewed the chart and agree that the record accurately reflects my personal performance of the history, physical exam, medical decision making, and the department course for this patient. I have also personally directed, reviewed, and agree with the discharge instructions and disposition. Disposition/Present on Arrival - Present on Arrival Any Indicators Present on Arrival: No History of DVT/PE: No History of Uncontrolled Diabetes: No Urinary Catheter: No History of Decub. Ulcer: No History Surgical Site Infection Following: None - Disposition Have Diagnosis and Disposition been Completed?: Yes Diagnosis: Non-alcoholic cirrhosis, Cirrhosis of liver with ascites, Dyspnea, Pleural effusion Disposition: HOSPITALIZED Disposition Time: 03:15 Patient Plan: Admission Condition: FAIR
[2018-08-11 02:22] LABS: VENOUS BLOOD GAS BASE EXCESS 5.1 mmol/L (0.0-2.0); VENOUS BLOOD GAS PO2 29 mm/Hg (30-55); VENOUS BLOOD PH 7.36 (7.32-7.43)
[2018-08-11 02:24] LABS: BASO # 0.05 K/mm3 (0.0-2.0); BASO % 0.4 % (0.0-3.0); EOS # 0.2 (0.0-0.7); EOS % 1.6 % (1.5-5.0); GRAN # 10.65 (1.4-6.5); GRAN % 86.1 % (50.0-68.0); HEMOGLOBIN 10.7 g/dL (14.0-18.0); INR 1.4; LYMPH # 0.6 (1.2-3.4); LYMPH % 4.8 % (22.0-35.0); MEAN CELL VOLUME 99.7 fl (80.0-105.0); MEAN CORPUSCULAR HEMOGLOBIN 33.5 pg (25.0-35.0); MEAN CORPUSCULAR HGB CONC 33.6 g/dl (31.0-37.0); MEAN PLATELET VOLUME 10.2 fl (7.0-11.0); MONO # 0.9 (0.1-0.6); MONO % 7.1 % (1.0-6.0); PLATELET COUNT 97 10^3/uL (120.0-450.0); PROTHROMBIN TIME 16.1 SECONDS (9.4-12.5); RBC 3.19 10^6/uL (3.5-6.1); RED CELL DISTRIBUTION WIDTH 17.6 % (11.5-14.5); WHITE BLOOD COUNT 12.4 10^3/ul (4.5-11.0)
[2018-08-11 02:30] LABS: ALB/GLOB RATIO 0.6 (1.1-1.8); ALBUMIN 3.2 g/dL (3.0-4.8); BILIRUBIN,DIRECT 1.3 mg/dL (0.0-0.4); CALCIUM 8.9 mg/dL (8.4-10.5)
[2018-08-11 02:41] LABS: TROPONIN I 0.02 ng/mL
--- NOTE | 2018-08-11 03:00 | CP.PCM.HP ---
<SunshineMarysolEvgeny - Last Filed: 08/11/18 07:30> History of Present Illness - History of Present Illness History of Present Illness: Evgeny Gonsalez DO PGY-1, H&P for hospitalist CC: SOB This is a 63 year old male w/ PMH of non-alcoholic liver cirrhosis of unclear etiology, hepatic encephalopathy, chronic ascites, esophageal varices, CKD stage 3B, HTN, diastolic CHF, Atrial Fibrillation who presents to the ED with worsening SOB for the last twelve hours. Pt also reports abdominal distention and pressure, associated with chest pressure that goes across his chest, and is worse when he touches his abdomen. Pt states that he has therapeutic parecentesis every 5-6 weeks. Last paracentesis was 1 month ago at [facility], where 8 liters were removed. Pt denies fever, chills, palpitations, dysuria, leg swelling, leg pain, weakness, dizziness. A 12-point ROS was reviewed and is otherwise unremarkable Records and pt chart reviewed prior to evaluation. PMH: HTN, GERD, Non-alcoholic liver cirrhosis, Ascites, CHF, afib, and esophageal varices, gi bleed PSH: Inguinal hernia repair SH: Denies alcohol, drug used; Former smoker, quit 1.5 years ago FH: Mother - DM, heart disease; Father - [place] All: Beef products, banana Present on Admission - Present on Admission Any Indicators Present on Admission: No Review of Systems - Review of Systems All systems: reviewed and no additional remarkable complaints except (as per HPI ) Past Patient History - Infectious Disease Hx of Infectious Diseases: None - Tetanus Immunizations Tetanus Immunization: Unknown - Past Medical History & Family History Past Medical History?: Yes - Past Social History Smoking Status: Former Smoker - CARDIAC Hx Congestive Heart Failure: Yes Hx Hypertension: Yes - PULMONARY Hx Pneumonia: Yes - NEUROLOGICAL Hx Neurological Disorder: No - HEENT Hx HEENT Problems: No - RENAL Hx Renal Failure: Yes (CKD stage 3B) - ENDOCRINE/METABOLIC Hx Endocrine Disorders: No - HEMATOLOGICAL/ONCOLOGICAL Hx Blood Transfusions: Yes Hx Blood Transfusion Reaction: No - INTEGUMENTARY Hx Dermatological Problems: No - MUSCULOSKELETAL/RHEUMATOLOGICAL Hx Falls: No - GASTROINTESTINAL Hx Gastrointestinal Disorders: Yes (ESOPHAGEAL VARICES,DYSPHAGIA,GERD, HEPATOCEPHALOPATHY,GI BLEED) - GENITOURINARY/GYNECOLOGICAL Hx Genitourinary Disorders: No Hx Reproductive Disorders: No - PSYCHIATRIC Hx Anxiety: Yes Hx Depression: Yes Hx Substance Use: No - SURGICAL HISTORY Hx Cardiac Catheterization: Yes Hx Coronary Stent: Yes - ANESTHESIA Hx Anesthesia Reactions: No Hx Malignant Hyperthermia: No Meds Allergies/Adverse Reactions: Allergies Allergy/AdvReac Type Severity Reaction Status Date / Time Beef Containing Products Allergy Severe ANAPHYLAXIS Verified 04/19/18 14:52 beef derived (bovine) Allergy Severe ANAPHYLAXIS Verified 04/19/18 14:52 banana Allergy Intermediate ITCHING Verified 04/19/18 14:52 velcro Allergy ITCHING Uncoded 04/19/18 14:52 Physical Exam - Constitutional Appears: Non-toxic, No Acute Distress, Cachectic, Chronically Ill - Head Exam Head Exam: ATRAUMATIC, NORMAL INSPECTION, NORMOCEPHALIC - Eye Exam Eye Exam: EOMI, Nystagmus, PERRL, Scleral icterus - ENT Exam ENT Exam: Mucous Membranes Dry - Neck Exam Neck exam: Positive for: Normal Inspection - Respiratory Exam Respiratory Exam: Decreased Breath Sounds (at the bases, right worse than left) , NORMAL BREATHING PATTERN. absent: Accessory Muscle Use, Rales, Rhonchi, Wheezes, Respiratory Distress, Stridor Additional comments: (+) conversational dyspnea - Cardiovascular Exam Cardiovascular Exam: REGULAR RHYTHM, +S1, +S2 - GI/Abdominal Exam GI & Abdominal Exam: Distended, Hernia (left inguinal hernia), Tenderness ( moderate diffuse tenderness) Additional comments: (+) caput medusae - Extremities Exam Extremities exam: Positive for: normal capillary refill, pedal pulses present. Negative for: calf tenderness, pedal edema, tenderness - Neurological Exam Neurological exam: Alert (oriented to name, place. but not time (states that it is august 1925)) Additional comments: Pt is able to follow commands; (+) 4/5 strength in bilateral upper and lower extremities (-) asterixis - Psychiatric Exam Psychiatric exam: Normal Affect, Normal Mood - Skin Skin Exam: Warm Additional comments: (+) jaundice Results - Vital Signs Recent Vital Signs: Last Vital Signs Temp 97.7 F 08/11/18 00:05 Pulse 62 08/11/18 00:05 Resp 23 08/11/18 00:05 BP 145/107 H 08/11/18 00:05 Pulse Ox 100 08/11/18 00:05 - Labs Result Diagrams: 08/11/18 02:05 08/11/18 05:30 Labs: Laboratory Results - last 24 hr 08/11/18 08/11/18 08/11/18 02:05 02:05 02:05 WBC 12.4 H D RBC 3.19 L Hgb 10.7 L Hct 31.8 L MCV 99.7 MCH 33.5 MCHC 33.6 RDW 17.6 H Plt Count 97 L MPV 10.2 Gran % 86.1 H Lymph % (Auto) 4.8 L [place] % (Auto) 7.1 H Eos % (Auto) 1.6 Baso % (Auto) 0.4 Gran # 10.65 H Lymph # (Auto) 0.6 L [place] # (Auto) 0.9 H Eos # (Auto) 0.2 Baso # (Auto) 0.05 PT 16.1 H INR 1.40 Sodium 137 Potassium 3.5 L Chloride 98 Carbon Dioxide 30 Anion Gap 12 BUN 45 H Creatinine 2.3 H Est GFR ( Amer) 35 Est GFR (Non-Af Amer) 29 Random Glucose 94 Calcium 8.9 Phosphorus 4.2 Magnesium 2.2 Total Bilirubin 2.9 H Direct Bilirubin 1.3 H AST 54 ALT 26 Alkaline Phosphatase 299 H Ammonia Lactate Dehydrogenase 449 Total Creatine Kinase 90 Troponin I 0.02 D NT-Pro-B Natriuret Pep 1710 H Total Protein 8.8 H Albumin 3.2 Globulin 5.6 Albumin/Globulin Ratio 0.6 L 08/11/18 02:05 WBC RBC Hgb Hct MCV MCH MCHC RDW Plt Count MPV Gran % Lymph % (Auto) [place] % (Auto) Eos % (Auto) Baso % (Auto) Gran # Lymph # (Auto) [place] # (Auto) Eos # (Auto) Baso # (Auto) PT INR Sodium Potassium Chloride Carbon Dioxide Anion Gap BUN Creatinine Est GFR ( Amer) Est GFR (Non-Af Amer) Random Glucose Calcium Phosphorus Magnesium Total Bilirubin Direct Bilirubin AST ALT Alkaline Phosphatase Ammonia 11 Lactate Dehydrogenase Total Creatine Kinase Troponin I NT-Pro-B Natriuret Pep Total Protein Albumin Globulin Albumin/Globulin Ratio Assessment & Plan - Assessment and Plan (Free Text) Assessment: This is a 63 year old male w/ PMH of non-alcoholic liver cirrhosis of unclear etiology, hepatic encephalopathy, chronic ascites, esophageal varices, CKD stage 3, HTN, diastolic CHF, Atrial Fibrillation who presents to the ED with worsening SOB for the last twelve hours. Plan: Dyspnea; likely due mechanical compression by ascites fluid +/- pleural effusion - CXR shows possible right sided pleural effusion, increased vascular congestion ; as read by me - ABG is WNL - duonebs q6H - O2 NC PRN - leukocytosis on admission, lactate is normal - Rocephin IVPB, Azithromycin IVPB for potential SBP and possible pneumonia - will give albumin 25% 12.5g IV x 2 in anticipation of high volume paracentesis - IR consulted for therapeutic and diagnostic thoracentesis/paracentesis, with fluid analysis KEYUR on CKD stage 3 - Creatinine elevated from baseline on admission - will not give fluids at this time due to ascites - avoid nephrotoxic medications Hypokalemia - potassium is 3.5 on admission - will give Kdur 40 mEq PO - f/u cmp in am Hx of Hepatic encephalopathy - continue home rifaxamin, lactulose - ammonia level is 11 - GI consulted, recs appreciated PPX/Diet - protonix for GI, SCDs for DVT - HHD Case was reviewed and discussed with attending physician, Dr. Nuñez <Tino Nuñez - Last Filed: 08/11/18 19:23> Results - Vital Signs Recent Vital Signs: Last Vital Signs Temp 98 F 08/11/18 12:00 Pulse 67 08/11/18 18:02 Resp 18 08/11/18 12:00 BP 99/59 L 08/11/18 18:02 Pulse Ox 100 08/11/18 06:00 - Labs Result Diagrams: 08/11/18 02:05 08/11/18 05:30 Labs: Laboratory Results - last 24 hr 08/11/18 08/11/18 03:20 05:30 pCO2 43 pO2 113.0 H HCO3 29.9 H ABG pH 7.45 ABG Total CO2 31.2 H ABG O2 Saturation 100.1 H ABG O2 Content 13.9 L ABG Base Excess 5.3 H ABG Hemoglobin 10.2 L ABG Carboxyhemoglobin 3.2 H POC ABG HHb (Measured) -0.1 L ABG Methemoglobin 1.5 ABG O2 Capacity 13.9 L Hgb O2 Saturation 95.3 FiO2 32.0 Sodium 138 Potassium 3.8 Chloride 100 Carbon Dioxide 28 Anion Gap 14 BUN 47 H Creatinine 2.2 H Est GFR ( Amer) 37 Est GFR (Non-Af Amer) 30 Random Glucose 91 Calcium 9.2 Total Bilirubin 3.3 H AST 45 ALT 25 Alkaline Phosphatase 274 H Total Protein 8.5 H Albumin 3.1 Globulin 5.4 Albumin/Globulin Ratio 0.6 L Attending/Attestation - Attestation I have personally seen and examined this patient.: Yes I have fully participated in the care of the patient.: Yes I have reviewed all pertinent clinical information: Yes
[2018-08-11 03:30] LABS: ARTERIAL BLOOD GAS HCO3 29.9 mmol/L (21-28); ARTERIAL BLOOD GAS HEMOGLOBIN 10.2 g/dL (11.7-17.4); ARTERIAL BLOOD GAS O2 CAPACITY 13.9 mL/dl (16-24); ARTERIAL BLOOD GAS O2 CONTENT 13.9 ML/dl (15-23); ARTERIAL BLOOD GAS O2 SAT 100.1 % (95-98); ARTERIAL BLOOD GAS PCO2 43 mm/Hg (35-45); ARTERIAL BLOOD GAS PH 7.45 (7.35-7.45); ARTERIAL BLOOD GAS TCO2 31.2 mmol.L (22-28)
[2018-08-11] MEDS ORDERED: Potassium Chloride 20 mEq ER Tab PO STA (04:08)
[2018-08-11] MEDS ORDERED: Albumin Human 25% (12.5 gm/50 ml) IV ONE ×2 (04:21→06:00)
[2018-08-11] MEDS ORDERED: oxyCODONE 5 mg Immediate Release Tab PO PRN (04:40)
[2018-08-11 04:57] LABS: BAND 3 % (0-2); EOSINOPHIL 2 % (0.0-3.0); LYMPHOCYTE 5 % (22.0-35.0); MONOCYTE 6 % (1.0-6.0); NEUTROPHIL 84 % (50.0-70.0); PLATELET ESTIMATE NORMAL (NORMAL)
[2018-08-11 06:52] LABS: ALB/GLOB RATIO 0.6 (1.1-1.8); ALBUMIN 3.1 g/dL (3.0-4.8); CALCIUM 9.2 mg/dL (8.4-10.5)
[2018-08-11 07:13] VITALS: BMI 23.0
[2018-08-11] MEDS: Albuterol-Ipratrop 3 mg / 0.5 (3 ml) UD IH SCH ×3 (07:31→20:30)
--- NOTE | 2018-08-11 09:14 | CP.PCM.CON ---
<Deshawn Granda - Last Filed: 08/11/18 10:52> History of Present Illness - History of Present Illness History of Present Illness: GI Fellow PGY4, consult note. Emilio Lane is a very pleasant 63M with extensive medical history presenting with recurrent fluid accumulation in abdomen. Patient states pain is in abdomen that he has had before when he has needed paracentesis. His WBC is elevated, however denies fever, lightheadedness, confusion. He is taking lactulose with frequent BMs. He had paracentesis 6 weeks ago. 8L removed. He says he has been recently taken off diuretics because his kidney function has been getting worse. He is currently not on transplant list at [facility] because he has to have other medical conditions evaluated. PMHx: HTN, GERD, Non-alcoholic liver cirrhosis, ascites, CHF, afib s/p cardioversion and esophageal varices. CAD s/p stents. PSHx: Inguinal hernia repair Social History: Denies alcohol, drug used; Former smoker, quit 1.5 years ago Family History: Mother - DM, heart disease; Father - [place] PMD: Dr. Bishop Past Patient History - Infectious Disease Hx of Infectious Diseases: None - Tetanus Immunizations Tetanus Immunization: Unknown - Past Medical History & Family History Past Medical History?: Yes - Past Social History Smoking Status: Former Smoker - CARDIAC Hx Congestive Heart Failure: Yes Hx Hypertension: Yes - PULMONARY Hx Pneumonia: Yes - NEUROLOGICAL Hx Neurological Disorder: No - HEENT Hx HEENT Problems: No - RENAL Hx Renal Failure: Yes (CKD stage 3B) - ENDOCRINE/METABOLIC Hx Endocrine Disorders: No - HEMATOLOGICAL/ONCOLOGICAL Hx Blood Transfusions: Yes Hx Blood Transfusion Reaction: No - INTEGUMENTARY Hx Dermatological Problems: No - MUSCULOSKELETAL/RHEUMATOLOGICAL Hx Falls: No - GASTROINTESTINAL Hx Gastrointestinal Disorders: Yes (ESOPHAGEAL VARICES,DYSPHAGIA,GERD, HEPATOCEPHALOPATHY,GI BLEED) - GENITOURINARY/GYNECOLOGICAL Hx Genitourinary Disorders: No Hx Reproductive Disorders: No - PSYCHIATRIC Hx Anxiety: Yes Hx Depression: Yes Hx Substance Use: No - SURGICAL HISTORY Hx Cardiac Catheterization: Yes Hx Coronary Stent: Yes - ANESTHESIA Hx Anesthesia Reactions: No Hx Malignant Hyperthermia: No Meds Allergies/Adverse Reactions: Allergies Allergy/AdvReac Type Severity Reaction Status Date / Time Beef Containing Products Allergy Severe ANAPHYLAXIS Verified 04/19/18 14:52 beef derived (bovine) Allergy Severe ANAPHYLAXIS Verified 04/19/18 14:52 banana Allergy Intermediate ITCHING Verified 04/19/18 14:52 velcro Allergy ITCHING Uncoded 04/19/18 14:52 - Medications Medications: Current Medications Albuterol/Ipratropium (Duoneb 3 Mg/0.5 Mg (3 Ml) Ud) 3 ml IH [id number] [facility] Last Admin: 08/11/18 07:31 Dose: 3 ml Ceftriaxone Sodium (Rocephin 1 Gram Ivpb) 1 gm in 100 mls @ 100 mls/hr IVPB DAILY [facility] PRN Reason: Protocol Azithromycin (Zithromax 500mg In Ns) 500 mg in 250 mls @ 167 mls/hr IVPB DAILY [facility] PRN Reason: Protocol Lactulose (Enulose) 20 gm PO DAILY [facility] Midodrine (Proamatine) 10 mg PO TID [facility] Oxycodone HCl (Oxycodone Immediate Release Tab) 5 mg PO Q6H PRN PRN Reason: Pain, moderate (4-7) Last Admin: 08/11/18 05:15 Dose: 5 mg Propranolol HCl (Inderal) 10 mg PO BID [facility] Rifaximin (Xifaxan) 550 mg PO BID [facility] PRN Reason: Protocol Physical Exam - Constitutional Appears: Non-toxic, No Acute Distress, Cachectic, Chronically Ill - Head Exam Head Exam: NORMAL INSPECTION - Eye Exam Eye Exam: EOMI, Normal appearance - ENT Exam ENT Exam: Mucous Membranes Moist - Respiratory Exam Respiratory Exam: Clear to Auscultation Bilateral, NORMAL BREATHING PATTERN - Cardiovascular Exam Cardiovascular Exam: REGULAR RHYTHM, +S1, +S2 - GI/Abdominal Exam GI & Abdominal Exam: Normal Bowel Sounds, Soft - Extremities Exam Extremities exam: Positive for: normal inspection - Neurological Exam Neurological exam: Alert, Oriented x3 - Psychiatric Exam Psychiatric exam: Normal Affect, Normal Mood - Skin Skin Exam: Dry, Normal Color Results - Vital Signs Recent Vital Signs: Last Vital Signs Temp 97.6 F 08/11/18 06:00 Pulse 66 08/11/18 07:36 Resp 18 08/11/18 06:00 BP 113/65 08/11/18 06:00 Pulse Ox 100 08/11/18 06:00 - Labs Result Diagrams: 08/11/18 02:05 08/11/18 05:30 Labs: Laboratory Results - last 24 hr 08/11/18 08/11/18 03:20 05:30 pCO2 43 pO2 113.0 H HCO3 29.9 H ABG pH 7.45 ABG Total CO2 31.2 H ABG O2 Saturation 100.1 H ABG O2 Content 13.9 L ABG Base Excess 5.3 H ABG Hemoglobin 10.2 L ABG Carboxyhemoglobin 3.2 H POC ABG HHb (Measured) -0.1 L ABG Methemoglobin 1.5 ABG O2 Capacity 13.9 L Hgb O2 Saturation 95.3 FiO2 32.0 Sodium 138 Potassium 3.8 Chloride 100 Carbon Dioxide 28 Anion Gap 14 BUN 47 H Creatinine 2.2 H Est GFR ( Amer) 37 Est GFR (Non-Af Amer) 30 Random Glucose 91 Calcium 9.2 Total Bilirubin 3.3 H AST 45 ALT 25 Alkaline Phosphatase 274 H Total Protein 8.5 H Albumin 3.1 Globulin 5.4 Albumin/Globulin Ratio 0.6 L Assessment & Plan - Assessment and Plan (Free Text) Assessment: #Decompensated cirrhosis with symptomatic ascites #Hx of esophageal varices s/p Band ligation 03/2018 #Hx of hepatic encephalopathy on lactulose #CKD #HTN #CHF PLAN: -Recommend Dx/Tx paracentesis. Give Albumin if more the 5L removed. Needs gram stain, culture, cell count. -Will call primary GI, Dr. Naranjo to find out chronic management of recurrent ascites. Apparently hes not taking diuretics but has no scheduled Tx paracentesis. -Continue lactulose (goal BMs 2-3 soft per day, titrate as needed), xifaxin, propranolol. -Continue supportive care - Date & Time Date: 08/11/18 Time: 09:15 <Delonte Garcia - Last Filed: 08/11/18 11:48> Meds - Medications Medications: Current Medications Albuterol/Ipratropium (Duoneb 3 Mg/0.5 Mg (3 Ml) Ud) 3 ml IH [id number] [facility] Last Admin: 08/11/18 07:31 Dose: 3 ml Alprazolam (Xanax) 0.5 mg PO HS [facility] PRN Reason: Protocol Stop: 08/18/18 22:01 Famotidine (Pepcid) 20 mg PO HS [facility] Ceftriaxone Sodium (Rocephin 1 Gram Ivpb) 1 gm in 100 mls @ 100 mls/hr IVPB DAILY [facility] PRN Reason: Protocol Azithromycin (Zithromax 500mg In Ns) 500 mg in 250 mls @ 167 mls/hr IVPB DAILY [facility] PRN Reason: Protocol Lactulose (Enulose) 20 gm PO DAILY [facility] Midodrine (Proamatine) 10 mg PO TID [facility] Oxycodone HCl (Oxycodone Immediate Release Tab) 5 mg PO Q6H PRN PRN Reason: Pain, moderate (4-7) Last Admin: 08/11/18 05:15 Dose: 5 mg Propranolol HCl (Inderal) 10 mg PO BID [facility] Rifaximin (Xifaxan) 550 mg PO BID [facility] PRN Reason: Protocol Results - Vital Signs Recent Vital Signs: Last Vital Signs Temp 97.6 F 08/11/18 06:00 Pulse 66 08/11/18 07:36 Resp 18 08/11/18 06:00 BP 113/65 08/11/18 06:00 Pulse Ox 100 08/11/18 06:00 - Labs Result Diagrams: 08/11/18 02:05 08/11/18 05:30 Labs: Laboratory Results - last 24 hr 08/11/18 08/11/18 03:20 05:30 pCO2 43 pO2 113.0 H HCO3 29.9 H ABG pH 7.45 ABG Total CO2 31.2 H ABG O2 Saturation 100.1 H ABG O2 Content 13.9 L ABG Base Excess 5.3 H ABG Hemoglobin 10.2 L ABG Carboxyhemoglobin 3.2 H POC ABG HHb (Measured) -0.1 L ABG Methemoglobin 1.5 ABG O2 Capacity 13.9 L Hgb O2 Saturation 95.3 FiO2 32.0 Sodium 138 Potassium 3.8 Chloride 100 Carbon Dioxide 28 Anion Gap 14 BUN 47 H Creatinine 2.2 H Est GFR ( Amer) 37 Est GFR (Non-Af Amer) 30 Random Glucose 91 Calcium 9.2 Total Bilirubin 3.3 H AST 45 ALT 25 Alkaline Phosphatase 274 H Total Protein 8.5 H Albumin 3.1 Globulin 5.4 Albumin/Globulin Ratio 0.6 L Attending/Attestation - Attestation I have personally seen and examined this patient.: Yes I have fully participated in the care of the patient.: Yes I have reviewed all pertinent clinical information: Yes Notes (Text): 08/11/18 11:37 I have seen and examined patient with GI fellow. Agree with above documentation with the following additions. In brief, this is a 63 year old male with history of decompensated cirrhosis, CHF, CAD, CKD, atrial fibrillation , HTN who presents to hospital with complaint of progressive weakness and increasing abdominal girth. He follows at [facility] liver transplant clinic, last seen 6 weeks ago. He endorses diffuse abdominal pain, worse in epigastric region which has limited his physical activity. He was told by liver transplant team to stop diuretic therapy due to CKD and rather he was advised to undergo routine scheduled outpatient paracentesis. He denies nausea , vomiting, fever/chills, weight loss, or rectal bleeding. He typically has 2- 3 bowel movements daily with use of lactulose. 12 point review of systems performed, negative aside from mentioned above. Additional physical exam: Abdomen: +ascites, no palpable hepatomegaly Decompensated cirrhosis CKD CHF / CAD Atrial fibrillation HTN - Low sodium diet as tolerated - Patient requires therapeutic / diagnostic paracentesis, will need subsequent albumin replacement therapy - Continue to monitor creatinine - Continue with lactulose for HE prevention - Agree with antibiotic therapy for time being given leukocytosis - Will communicate with [facility] regarding further plan for scheduling routine outpatient paracentesis - Will continue to monitor patient clinical course
[2018-08-11] MEDS: cefTRIAXone 1 gm 1 GM/100 ML BAG IVPB SCH (11:48)
--- NOTE | 2018-08-11 12:09 | CARD ---
APPROVED REPORT Date of service: 08/11/2018 EKG Measurement Heart [id number] <Conclusion> Sinus rhythm with premature supraventricular complexes and fusion complexes Left axis deviation Septal infarct, age undetermined Abnormal ECG
--- NOTE | 2018-08-11 12:39 | RAD ---
Date of service: 08/11/2018 HISTORY: Dyspnea COMPARISON: 04/11/2018 FINDINGS: LUNGS: No active pulmonary disease. PLEURA: Moderate size right pleural effusion. Increased from prior exam CARDIOVASCULAR: Normal. OSSEOUS STRUCTURES: No significant abnormalities. VISUALIZED UPPER ABDOMEN: Normal. OTHER FINDINGS: None. IMPRESSION: Moderate size right pleural effusion. Increased from prior exam
[2018-08-11] MEDS: Azithromycin 500MG/NS 250ml 500 MG/250 ML BAG IVPB SCH (12:51)
--- NOTE | 2018-08-11 18:14 | US ---
PROCEDURE: Ultrasound guided paracentesis. HISTORY: Cirrhosis. Recurrent ascites with abdominal pain and respiratory distress. Needs therapeutic paracentesis PHYSICIAN(S): Franko Crespo MD. TECHNIQUE: The relative risks and indications for the procedure were explained to the patient and informed written consent obtained. Sonography of the abdomen was performed in a supine position. This revealed a large amount of non-loculated ascites, greatest in the right lower quadrant. A puncture site was selected and the area was prepped and draped in the usual sterile fashion. 1% Xylocaine was used to anesthetize the skin and soft tissues. A 7 Icelandic paracentesis catheter was trocared into the right lower quadrantand [id number] cc of clear, straw-colored fluid aspirated. No labs were sent. IMPRESSION: Ultrasound-guided paracentesis in the right lower quadrant. [id number] cc of fluid were aspirated.
[2018-08-12] MEDS: Albuterol-Ipratrop 3 mg / 0.5 (3 ml) UD IH SCH ×4 (02:16→20:05)
--- NOTE | 2018-08-12 07:04 | CP.PCM.PN ---
<Deshawn Granda - Last Filed: 08/12/18 09:48> Subjective - Date & Time of Evaluation Date of Evaluation: 08/12/18 Time of Evaluation: 07:00 - Subjective Subjective: GI Fellow PGY4, Paracentesis with 11L straw fluid removed yesterday. Albumin given. Patient is slightly confused this AM. Reports difficulty swallowing food. He is still having some abdominal discomfort. Nursing reports stool incontinence but unclear amount of stool. Objective - Vital Signs/Intake and Output Vital Signs (last 24 hours): Temp Pulse Resp BP Pulse Ox 98.3 F 64 18 101/58 L 100 08/12/18 06:00 08/12/18 06:00 08/12/18 06:00 08/12/18 06:00 08/12/18 06:00 Intake and Output: 08/12/18 08/12/18 06:59 18:59 Intake Total 0 Balance 0 - Medications Medications: Current Medications Albuterol/Ipratropium (Duoneb 3 Mg/0.5 Mg (3 Ml) Ud) 3 ml IH [id number] [facility] Last Admin: 08/12/18 02:16 Dose: 3 ml Alprazolam (Xanax) 0.5 mg PO HS [facility] PRN Reason: Protocol Stop: 08/18/18 22:01 Last Admin: 08/11/18 21:59 Dose: 0.5 mg Famotidine (Pepcid) 20 mg PO HS [facility] Last Admin: 08/11/18 22:00 Dose: 20 mg Ceftriaxone Sodium (Rocephin 1 Gram Ivpb) 1 gm in 100 mls @ 100 mls/hr IVPB DAILY [facility] PRN Reason: Protocol Last Admin: 08/11/18 11:48 Dose: 100 mls/hr Azithromycin (Zithromax 500mg In Ns) 500 mg in 250 mls @ 167 mls/hr IVPB DAILY [facility] PRN Reason: Protocol Last Admin: 08/11/18 12:51 Dose: 167 mls/hr Lactulose (Enulose) 20 gm PO DAILY [facility] Last Admin: 08/11/18 11:47 Dose: 20 gm Midodrine (Proamatine) 10 mg PO TID [facility] Last Admin: 08/11/18 18:01 Dose: 10 mg Oxycodone HCl (Oxycodone Immediate Release Tab) 5 mg PO Q6H PRN PRN Reason: Pain, moderate (4-7) Last Admin: 08/11/18 05:15 Dose: 5 mg Propranolol HCl (Inderal) 10 mg PO BID [facility] Last Admin: 08/11/18 18:02 Dose: Not Given Rifaximin (Xifaxan) 550 mg PO BID [facility] PRN Reason: Protocol Last Admin: 08/11/18 18:01 Dose: 550 mg - Labs Labs: 08/11/18 05:30 PT 16.1 SECONDS (9.4-12.5) H 08/11/18 02:05 INR 1.40 08/11/18 02:05 - Constitutional Appears: Non-toxic, No Acute Distress, Cachectic, Chronically Ill - Head Exam Head Exam: NORMAL INSPECTION - ENT Exam ENT Exam: Mucous Membranes Moist - Respiratory Exam Respiratory Exam: Clear to Ausculation Bilateral, NORMAL BREATHING PATTERN - Cardiovascular Exam Cardiovascular Exam: REGULAR RHYTHM - GI/Abdominal Exam GI & Abdominal Exam: Soft, Tenderness, Normal Bowel Sounds - Neurological Exam Neurological Exam: Alert, Awake, Oriented x3 Additional comments: + Asterixis - Psychiatric Exam Psychiatric exam: Normal Affect, Normal Mood - Skin Skin Exam: Dry Assessment and Plan - Assessment and Plan (Free Text) Assessment: #Decompensated cirrhosis with symptomatic ascites #Hx of esophageal varices s/p Band ligation 03/2018 #Hx of hepatic encephalopathy on lactulose #CKD #HTN #CHF PLAN: -S/P Dx/Tx paracentesis, 11L. Albumin given. Gram stain, culture, cell count unfortunately not collected -Discussed with primary GI, Dr. Naranjo. He is to make an appointment and follow- up at [facility] next week. Hes not taking diuretics 2/2 recurrent HypoNa and KEYUR, but has no scheduled Tx paracentesis. He is off the transplant list currently due to his other medical issues. -Continue lactulose (goal BMs 2-3 soft per day, titrate as needed), xifaxin, propranolol. -Continue supportive care -Concerned for HE. Obtain CMP, ammonia level. -Dysphagia - ?varices. Change diet to puree, 2gm Na restriction. speech eval. -Supplemental diet -Obtain duplex U/S to r/o hepatoporto thrombus/occlusion -Give another 50g albumin. -d/c oxycodone <Hodgson,Taruna - Last Filed: 08/12/18 13:22> Objective - Vital Signs/Intake and Output Vital Signs (last 24 hours): Temp Pulse Resp BP Pulse Ox 98.1 F 56 L 19 105/60 100 08/12/18 12:00 08/12/18 12:00 08/12/18 12:00 08/12/18 12:00 08/12/18 06:00 Intake and Output: 08/12/18 08/12/18 06:59 18:59 Intake Total 0 480 Output Total 400 Balance 0 80 - Medications Medications: Current Medications Albumin Human (Albumin Human 25% (12.5 Gm/50 Ml)) 12.5 gm IV Q6H [facility] Last Admin: 08/12/18 10:49 Dose: 12.5 gm Albuterol/Ipratropium (Duoneb 3 Mg/0.5 Mg (3 Ml) Ud) 3 ml IH [id number] [facility] Last Admin: 08/12/18 08:15 Dose: 3 ml Alprazolam (Xanax) 0.5 mg PO HS [facility] PRN Reason: Protocol Stop: 08/18/18 22:01 Last Admin: 08/11/18 21:59 Dose: 0.5 mg Famotidine (Pepcid) 20 mg PO HS [facility] Last Admin: 08/11/18 22:00 Dose: 20 mg Azithromycin (Zithromax 500mg In Ns) 500 mg in 250 mls @ 167 mls/hr IVPB DAILY [facility] PRN Reason: Protocol Last Admin: 08/12/18 10:24 Dose: 167 mls/hr Lactulose (Enulose) 20 gm PO DAILY [facility] Last Admin: 08/12/18 10:25 Dose: 20 gm Midodrine (Proamatine) 10 mg PO TID [facility] Last Admin: 08/12/18 10:24 Dose: 10 mg Oxycodone HCl (Oxycodone Immediate Release Tab) 5 mg PO Q6H PRN PRN Reason: Pain, moderate (4-7) Propranolol HCl (Inderal) 10 mg PO BID [facility] Last Admin: 08/12/18 10:24 Dose: Not Given Rifaximin (Xifaxan) 550 mg PO BID [facility] PRN Reason: Protocol Last Admin: 08/12/18 10:24 Dose: 550 mg - Labs Labs: 08/12/18 07:00 08/12/18 07:00 PT 16.1 SECONDS (9.4-12.5) H 08/11/18 02:05 INR 1.40 08/11/18 02:05 Attending/Attestation - Attestation I have personally seen and examined this patient.: Yes I have fully participated in the care of the patient.: Yes I have reviewed all pertinent clinical information, including history, physical exam and plan: Yes Notes (Text): 08/12/18 13:20 I have seen and examined patient with GI fellow. In brief, this is a 63 year old male with history of decompensated cirrhosis, CHF, CAD, CKD, atrial fibrillation, HTN who presents to hospital with complaint of progressive weakness and increasing abdominal girth with ascites. He follows at [facility] liver transplant clinic, last seen 6 weeks ago. s/p 11 lts ascitic fluid tap with no studies sent to the lab. Will give albumin today for volume expansion. Follow with [place] transplant clinic. Low salt diet. Discussed with primary team. Will sign off
[2018-08-12 07:56] LABS: HEMOGLOBIN 9.2 g/dL (14.0-18.0); MEAN CELL VOLUME 99.6 fl (80.0-105.0); MEAN CORPUSCULAR HEMOGLOBIN 32.5 pg (25.0-35.0); MEAN CORPUSCULAR HGB CONC 32.6 g/dl (31.0-37.0); MEAN PLATELET VOLUME 10.6 fl (7.0-11.0); RBC 2.83 10^6/uL (3.5-6.1); RED CELL DISTRIBUTION WIDTH 17.6 % (11.5-14.5); WHITE BLOOD COUNT 6.2 10^3/ul (4.5-11.0)
[2018-08-12 08:20] LABS: ALB/GLOB RATIO 0.5 (1.1-1.8); ALBUMIN 2.5 g/dL (3.0-4.8); CALCIUM 8.5 mg/dL (8.4-10.5)
[2018-08-12] MEDS ORDERED: Albumin Human 25% (25 gm/100 ml) IV ONE (09:35)
[2018-08-12] MEDS: Azithromycin 500MG/NS 250ml 500 MG/250 ML BAG IVPB SCH (10:24)
--- NOTE | 2018-08-12 10:36 | CP.PCM.PN ---
<Darrell Quintana - Last Filed: 08/12/18 15:22> Subjective - Date & Time of Evaluation Date of Evaluation: 08/12/18 Time of Evaluation: 07:00 - Subjective Subjective: Darrell Quintana, PGY1 Medicine Progress Note for Dr. Rosales Patient was seen and examined at bedside this morning. Patient initially presented with shortness of breath and abdominal pain. He says that he is improved today. Denies cp, nausea, vomiting, diarrhea. Patient had a large volume paracentesis yesterday with 11.2 L of fluid removed; abdomen is significantly less distended. No overnight changes. Vital signs are stable. GI was present during time of interview, patient's care was discussed. A full 12 point ROS was conducted and unremarkable except as stated above Objective - Vital Signs/Intake and Output Vital Signs (last 24 hours): Temp Pulse Resp BP Pulse Ox 98.3 F 64 18 101/58 L 100 08/12/18 06:00 08/12/18 06:00 08/12/18 06:00 08/12/18 06:00 08/12/18 06:00 Intake and Output: 08/12/18 08/12/18 06:59 18:59 Intake Total 0 480 Output Total 400 Balance 0 80 - Medications Medications: Current Medications Albumin Human (Albumin Human 25% (12.5 Gm/50 Ml)) 12.5 gm IV Q6H [facility] Albuterol/Ipratropium (Duoneb 3 Mg/0.5 Mg (3 Ml) Ud) 3 ml IH [id number] [facility] Last Admin: 08/12/18 08:15 Dose: 3 ml Alprazolam (Xanax) 0.5 mg PO HS [facility] PRN Reason: Protocol Stop: 08/18/18 22:01 Last Admin: 08/11/18 21:59 Dose: 0.5 mg Famotidine (Pepcid) 20 mg PO HS [facility] Last Admin: 08/11/18 22:00 Dose: 20 mg Azithromycin (Zithromax 500mg In Ns) 500 mg in 250 mls @ 167 mls/hr IVPB DAILY [facility] PRN Reason: Protocol Last Admin: 08/12/18 10:24 Dose: 167 mls/hr Lactulose (Enulose) 20 gm PO DAILY [facility] Last Admin: 08/12/18 10:25 Dose: 20 gm Midodrine (Proamatine) 10 mg PO TID [facility] Last Admin: 08/12/18 10:24 Dose: 10 mg Propranolol HCl (Inderal) 10 mg PO BID [facility] Last Admin: 08/12/18 10:24 Dose: Not Given Rifaximin (Xifaxan) 550 mg PO BID [facility] PRN Reason: Protocol Last Admin: 08/12/18 10:24 Dose: 550 mg - Labs Labs: 08/12/18 07:00 08/12/18 07:00 PT 16.1 SECONDS (9.4-12.5) H 08/11/18 02:05 INR 1.40 08/11/18 02:05 - Constitutional Appears: No Acute Distress - Head Exam Head Exam: ATRAUMATIC, NORMAL INSPECTION, NORMOCEPHALIC - Eye Exam Eye Exam: EOMI, Normal appearance, PERRL - ENT Exam ENT Exam: Mucous Membranes Moist, Normal Exam - Neck Exam Neck Exam: Full ROM, Normal Inspection. absent: Lymphadenopathy - Respiratory Exam Respiratory Exam: Clear to Ausculation Bilateral, NORMAL BREATHING PATTERN. absent: Chest Wall Tenderness, Rales, Rhonchi, Wheezes, Respiratory Distress, Stridor - Cardiovascular Exam Cardiovascular Exam: REGULAR RHYTHM, +S1, +S2. absent: Murmur - GI/Abdominal Exam GI & Abdominal Exam: Soft, Normal Bowel Sounds. absent: Tenderness Additional comments: Abdomen is less distended from yesterday (s/p LV para) - Extremities Exam Extremities Exam: Full ROM, Normal Capillary Refill, Normal Inspection. absent : Joint Swelling, Pedal Edema - Back Exam Back Exam: NORMAL INSPECTION - Neurological Exam Neurological Exam: Alert, Awake, Oriented x3 Neuro motor strength exam: Left Upper Extremity: 5, Right Upper Extremity: 5, Left Lower Extremity: 5, Right Lower Extremity: 5 - Psychiatric Exam Psychiatric exam: Normal Affect, Normal Mood - Skin Skin Exam: Dry, Intact, Normal Color, Warm Assessment and Plan - Assessment and Plan (Free Text) Assessment: Patient is a 63 y/o M with PMHx of Liver Cirrhosis with chronic ascites, hepatic encephalopathy, esophageal varices, CKD stage III, HTN, CHF-pEF, and Afib who presented to the ED on 08/11 for worsening shortness of breath and abdominal distension and pressure. Patient has a history of frequent paracentesis due to chronic ascites. Patient had a paracentesis on 08/11 with removal of 11.2 L of fluid. Patient is being monitored on telemetry. Plan: SOB and Abdominal Distension 2/2 Ascites from Decompensated Liver Cirrhosis - As per GI, patient may make appointment with his primary GI (Dr. Naranjo) for outpatient follow up. - Albumin 25% 12.5g IV q6H - c/w lactulose - c/w xifaxin - c/w azithromycin - Abdominal US - s/p large volume paracentesis (08/12): 11.2 L fluid removed by IR. - f/u albumin, cell count, LDH pleural fluid, total protein - CXR (08/11): moderate right pleural effusion. - c/w duonebs - GI consulted, recs appreciated. - History of frequent paracentesis due to chronic cirrhosis Hx of Hepatic encephalopathy - AAOx3 on exam - c/w rifaxamin and lactulose - ammonia level is within normal limits - GI consulted, recs appreciated Hx of KEYUR on CKD Stage III - Creatinine is 2.0 - avoid nephrotoxic medications Hypokalemia - resolved - Potassium is 4.0 now upon repletion - potassium is 3.5 on admission Hx of HTN - normotensive after paracentesis - monitor BP PPX/Diet - GI ppx: pepcid - DVT ppx: SCDs Dispo: Continue to monitor patient on telemetry. Physical therapy. Case was discussed and reviewed with Attending Physician, Dr. Rosales <Felicita Rosales - Last Filed: 08/12/18 16:31> Objective - Vital Signs/Intake and Output Vital Signs (last 24 hours): Temp Pulse Resp BP Pulse Ox 98.1 F 58 L 19 105/60 100 08/12/18 12:00 08/12/18 14:00 08/12/18 12:00 08/12/18 12:00 08/12/18 06:00 Intake and Output: 08/12/18 08/12/18 06:59 18:59 Intake Total 0 480 Output Total 400 Balance 0 80 - Medications Medications: Current Medications Albumin Human (Albumin Human 25% (12.5 Gm/50 Ml)) 12.5 gm IV Q6H [facility] Last Admin: 08/12/18 15:27 Dose: 12.5 gm Albuterol/Ipratropium (Duoneb 3 Mg/0.5 Mg (3 Ml) Ud) 3 ml IH [id number] [facility] Last Admin: 08/12/18 13:25 Dose: 3 ml Alprazolam (Xanax) 0.5 mg PO HS [facility] PRN Reason: Protocol Stop: 08/18/18 22:01 Last Admin: 08/11/18 21:59 Dose: 0.5 mg Famotidine (Pepcid) 20 mg PO HS [facility] Last Admin: 08/11/18 22:00 Dose: 20 mg Azithromycin (Zithromax 500mg In Ns) 500 mg in 250 mls @ 167 mls/hr IVPB DAILY [facility] PRN Reason: Protocol Last Admin: 08/12/18 10:24 Dose: 167 mls/hr Lactulose (Enulose) 20 gm PO DAILY [facility] Last Admin: 08/12/18 10:25 Dose: 20 gm Midodrine (Proamatine) 10 mg PO TID [facility] Last Admin: 08/12/18 14:24 Dose: 10 mg Oxycodone HCl (Oxycodone Immediate Release Tab) 5 mg PO Q6H PRN PRN Reason: Pain, moderate (4-7) Last Admin: 08/12/18 14:23 Dose: 5 mg Propranolol HCl (Inderal) 10 mg PO BID [facility] Last Admin: 08/12/18 10:24 Dose: Not Given Rifaximin (Xifaxan) 550 mg PO BID [facility] PRN Reason: Protocol Last Admin: 08/12/18 10:24 Dose: 550 mg - Labs Labs: 08/12/18 07:00 08/12/18 07:00 PT 16.1 SECONDS (9.4-12.5) H 08/11/18 02:05 INR 1.40 08/11/18 02:05 Attending/Attestation - Attestation I have personally seen and examined this patient.: Yes I have fully participated in the care of the patient.: Yes I have reviewed all pertinent clinical information, including history, physical exam and plan: Yes Notes (Text): 08/12/18 15:48 Attending note; Patient seen and examined with resident. Patient is alert and awake. Complaining of generalized weakness. Status post paracentesis yesterday. Denies any fevers, chills. Denies any cough. Tolerating diet. Patient with a history of chronic back and abdominal discomfort. Patient is a 63 year old Male with PMHx of Liver Cirrhosis with Recurrent ascites, multiple paracentesis, h/o hepatic encephalopathy, esophageal varices, banding, CKD stage III, HTN, CHF is admitted with worsening shortness of breath and abdominal distension and pressure. Patient has a history of frequent paracentesis due to chronic ascites. Patient had a paracentesis on 08/11 with removal of 11.2 L of fluid. Patient follows up with [facility] liver transplant and GI clinic. Status post paracentesis by IR Dr. Crespo yesterday. About 11 L of fluid removed. Continue IV albumen. Case discussed with GI in detail. Acute on chronic kidney disease. Creatinine is 2.3 to 2.0. Fluctuation in creatinine due to hemodynamic changes. Nephrology evaluation requested. Needs close outpatient follow-up. Chronic cirrhosis with portal hypertension; continue propranolol. History of encephalopathy; currently alert and awake. Continue lactulose and rifaximin. Chronic back pain; continue oxycodone when necessary. PT evaluation requested. Upon discharge the patient will follow up with PMD Dr. Bishop.
[2018-08-12] MEDS: Albumin Human 25% (12.5 gm/50 ml) IV SCH ×3 (10:49→22:35)
[2018-08-12] MEDS: cefTRIAXone 1 gm 1 GM/100 ML BAG IVPB SCH (10:59)
--- NOTE | 2018-08-12 11:59 | US ---
PROCEDURE: Portal vein duplex ultrasound. CLINICAL HISTORY: Cirrhosis. Deteriorating liver function. Evaluate for portal vein thrombosis. PHYSICIAN(S): Franko Crespo M.D. FINDINGS: The extrahepatic portal vein is patent with hepatopetal flow. No sonographic evidence for thrombus or obstruction is seen. The 3 hepatic veins are visualized centrally and patent. The hepatic artery is patent. The liver is small and heterogeneous consistent with cirrhosis. There is a moderate amount of ascites in the upper abdomen. The spleen is not enlarged. IMPRESSION: 1. Patent portal vein with hepatopetal flow.
[2018-08-12 13:14] LABS: PH,URINE 5.5 (4.7-8.0); URINE BILIRUBIN NEGATIVE (NEGATIVE); URINE BLOOD NEGATIVE (NEGATIVE); URINE GLUCOSE (UA) NEGATIVE (NEGATIVE); URINE LEUKOCYTE ESTERASE NEGATIVE Leu/uL (NEGATIVE); URINE PROTEIN TRACE mg/dL (<30 mg/dL); URINE UROBILINOGEN 0.2 E.U./dL (<1 E.U./dL)
[2018-08-12 13:16] LABS: URINE APPEARANCE CLEAR (CLEAR); URINE COLOR YELLOW (YELLOW)
[2018-08-12 13:22] LABS: URINE EPITHELIAL CELLS 0 - 2 /hpf (0-5); URINE RBC 0 - 2 /hpf (0-2); URINE WBC 0 - 2 /hpf (0-6)
[2018-08-12] MEDS: oxyCODONE 5 mg Immediate Release Tab PO PRN ×2 (14:23→22:45)
--- NOTE | 2018-08-13 01:04 | CON ---
DATE: 08/12/2018 NEPHROLOGY CONSULTATION LOCATION: [facility]. HISTORY OF PRESENT ILLNESS: This is 63-year-old male with past medical history of hypertension, CHF with preserved ejection fraction, AFib, status post cardioversion, CKD, nonalcoholic liver cirrhosis of unclear etiology, hepatic encephalopathy, chronic ascites, esophageal varices status post banding and gastroesophageal reflux disease presented to ED yesterday with increased dyspnea. Nephrology being consulted for acute kidney injury. The patient reportedly was doing well up until about 2 weeks ago. Reports being active even playing basketball; however, since past 2 weeks, he has been nauseous and with decreased energy; also with increased dyspnea at rest. The patient last had abdominal paracentesis done about 1 month ago with 5 liters drained. The patient underwent paracentesis yesterday and had 11 liters removed. The patient reports being taken off of diuretics about a month ago on his last visit to [facility] liver [place] due to which he was told is the effect on his kidneys. The patient reports urinating less lately; adheres to low salt diet; denies any leg swelling. PAST MEDICAL HISTORY: As above. SOCIAL HISTORY: Former smoker. Denies any alcohol use. FAMILY HISTORY: Mother diabetes, heart disease. Father [place]. REVIEW OF SYSTEMS: CONSTITUTIONAL: Progressive lethargy, worse today after having large volume paracentesis. HEENT: Reports some rhinorrhea, otherwise no sore throat. No sinus pains, has had trouble swallowing. RESPIRATORY: Denies any cough. CARDIOVASCULAR: Denies any chest pain or palpitations. GI: Denies any vomiting, has been having regular bowel movements. : As per HPI. MUSCULOSKELETAL: Not taking any pain meds except for occasional Tylenol. Denies any leg swelling. PSYCHIATRIC: Reports some depression. SKIN: No itching or rashes. PHYSICAL EXAMINATION VITAL SIGNS: Blood pressure 105/60, heart rate 56, respirations 19, temperature 98.1, O2 sat 100%. GENERAL: No distress. Conversing coherently in full sentences. HEENT: Dry mucous membranes. Nonicteric. No cervical lymphadenopathy. Temporal wasting present. RESPIRATORY: Lungs clear to auscultation bilaterally. No rales or rhonchi. No wheezes. CARDIOVASCULAR: Heart sounds S1 and S2 normal. No murmurs or gallops or rubs. GI: Abdomen soft, nondistended, is tender. : No bladder distention. EXTREMITIES: No leg edema. SKIN: Warm. No cyanosis. NEURO: No resting tremor. PSYCHIATRIC: Normal mood, normal affect. LABORATORY DATA: CBC; WBC 6.2, hemoglobin 9.2, hematocrit 28.2, platelets 87. Chemistry panel, sodium 139, potassium 4, chloride 102, bicarb 30, BUN 45, creatinine 2 (decreased from 2.3 on presentation, but increased from baseline in low ones), glucose 91, calcium 8.5, total bili 1.6, AST 35, ALT 20, alk phos 202, albumin 2.5. Chest x-ray directly visualized showing right-sided pleural effusion. ASSESSMENT AND PLAN: 1. Acute kidney injury on chronic kidney disease 3A. The patient has had multiple encounters with prerenal etiology of the acute kidney disease consistently seen after starting diuretics; however, has been off of diuretics since the past month. Urine output is also decreased lately. The blood pressure has been at lower end of normal despite being on midodrine. The patient has underlying liver cirrhosis and so there is concern for hepatorenal syndrome; however, we will first adequately volume expand the patient before we consider hepatorenal syndrome (especially with the patient having received large volume paracentesis with inadequate intravenous albumin infusion). Checking urine electrolytes for evidence of prerenal etiology. Agree with continuing intravenous albumin 24% every 6 hour x4 doses with a goal of giving 1 gm/kg over 24 hour. Monitor input's and output's if the patient is having increased gastrointestinal losses will need additional volume replenishment. Avoid nephrotoxic agents especially nonsteroidal antiinflammatory drugs. 2. Chronic kidney diseases stage 3A with baseline serum creatinine of approximately 1.3 corresponding to EGFR of 56 mL/minute. Nonproteinuric kidney disease, possibly due to underlying renovascular disease (mainstay of treatment is to avoid nephrotoxic agents while balancing need for diuretics with renal insufficiency). We will check parathyroid hormone. We will check iron studies for evidence of anemia of chronic disease/chronic kidney disease. 3. Liver cirrhosis with ascites. The patient with frequent reaccumulation of abdominal ascites. Yesterday's large volume paracentesis was significantly larger volume than usual. Once the patient is adequately volume expanded with intravenous albumin and renal function is deemed stable, can again try to place the patient on p.o. torsemide 10 mg daily. Otherwise, need to consider indwelling abdominal paracentesis catheter so that the patient can have removal of ascites fluid every 1-2 weeks. Thank you for this referral. We will be following up closely. Wood De Oliveira MD
[2018-08-13] MEDS: Albuterol-Ipratrop 3 mg / 0.5 (3 ml) UD IH SCH ×4 (02:10→19:45)
[2018-08-13] MEDS: Albumin Human 25% (12.5 gm/50 ml) IV SCH ×4 (04:30→21:17)
[2018-08-13 06:53] LABS: HEMOGLOBIN 9.3 g/dL (14.0-18.0); MEAN CELL VOLUME 100.3 fl (80.0-105.0); MEAN CORPUSCULAR HEMOGLOBIN 32.5 pg (25.0-35.0); MEAN CORPUSCULAR HGB CONC 32.4 g/dl (31.0-37.0); MEAN PLATELET VOLUME 9.5 fl (7.0-11.0); RBC 2.86 10^6/uL (3.5-6.1); RED CELL DISTRIBUTION WIDTH 17.5 % (11.5-14.5); WHITE BLOOD COUNT 5.4 10^3/ul (4.5-11.0)
[2018-08-13 06:57] LABS: ALB/GLOB RATIO 0.6 (1.1-1.8); ALBUMIN 2.8 g/dL (3.0-4.8); CALCIUM 8.7 mg/dL (8.4-10.5)
[2018-08-13 07:13] LABS: IRON 48 ug/dL (45-180)
[2018-08-13 07:22] LABS: % IRON SATURATION 23 % (20-55); TOTAL IRON BINDING CAPACITY 210 ug/dL (261-462)
[2018-08-13] MEDS: Azithromycin 500MG/NS 250ml 500 MG/250 ML BAG IVPB SCH (09:22)
--- NOTE | 2018-08-13 11:22 | CP.PCM.PN ---
<Darrell Quintana - Last Filed: 08/13/18 11:17> Subjective - Date & Time of Evaluation Date of Evaluation: 08/13/18 Time of Evaluation: 07:00 - Subjective Subjective: Darrell Quintana, PGY1 Medicine Progress Note for Dr. Rosales Patient was seen and examined at bedside. Patient's abdominal pain and distension has improved since his large volume paracentesis. However, he still endorses mild, diffuse abdominal pain. Patient denies shortness of breath, chest pain, nausea, vomiting, diarrhea, and bowel/bladder changes. Vital signs stable. No overnight changes. A full 12 point ROS was conducted and unremarkable except as stated above. Objective - Vital Signs/Intake and Output Vital Signs (last 24 hours): Temp Pulse Resp BP Pulse Ox 97.9 F 66 20 100/60 97 08/13/18 06:00 08/13/18 09:22 08/13/18 06:00 08/13/18 09:22 08/13/18 06:00 Intake and Output: 08/13/18 08/13/18 06:59 18:59 Intake Total 100 Output Total 375 Balance -275 - Medications Medications: Current Medications Albumin Human (Albumin Human 25% (12.5 Gm/50 Ml)) 12.5 gm IV Q6H [facility] Last Admin: 08/13/18 10:19 Dose: 12.5 gm Albuterol/Ipratropium (Duoneb 3 Mg/0.5 Mg (3 Ml) Ud) 3 ml IH [id number] [facility] Last Admin: 08/13/18 07:53 Dose: 3 ml Alprazolam (Xanax) 0.5 mg PO HS [facility] PRN Reason: Protocol Stop: 08/18/18 22:01 Last Admin: 08/12/18 22:35 Dose: 0.5 mg Famotidine (Pepcid) 20 mg PO HS [facility] Last Admin: 08/12/18 22:35 Dose: 20 mg Azithromycin (Zithromax 500mg In Ns) 500 mg in 250 mls @ 167 mls/hr IVPB DAILY [facility] PRN Reason: Protocol Last Admin: 08/13/18 09:22 Dose: 167 mls/hr Lactulose (Enulose) 20 gm PO DAILY [facility] Last Admin: 08/13/18 09:23 Dose: 20 gm Midodrine (Proamatine) 10 mg PO TID [facility] Last Admin: 08/13/18 09:22 Dose: 10 mg Oxycodone HCl (Oxycodone Immediate Release Tab) 5 mg PO Q6H [facility] PRN Reason: Pain, moderate (4-7) Last Admin: 08/12/18 22:45 Dose: 5 mg Propranolol HCl (Inderal) 10 mg PO BID [facility] Last Admin: 08/13/18 09:22 Dose: 10 mg Rifaximin (Xifaxan) 550 mg PO BID [facility] PRN Reason: Protocol Last Admin: 08/13/18 09:22 Dose: 550 mg - Labs Labs: 08/13/18 06:15 08/13/18 06:15 PT 16.1 SECONDS (9.4-12.5) H 08/11/18 02:05 INR 1.40 08/11/18 02:05 - Constitutional Appears: No Acute Distress - Head Exam Head Exam: ATRAUMATIC, NORMAL INSPECTION, NORMOCEPHALIC - Eye Exam Eye Exam: EOMI, Normal appearance, PERRL Pupil Exam: NORMAL ACCOMODATION, PERRL - ENT Exam ENT Exam: Mucous Membranes Moist, Normal Exam - Neck Exam Neck Exam: Full ROM, Normal Inspection. absent: Lymphadenopathy - Respiratory Exam Respiratory Exam: Clear to Ausculation Bilateral, NORMAL BREATHING PATTERN. absent: Chest Wall Tenderness, Rales, Rhonchi, Wheezes, Respiratory Distress - Cardiovascular Exam Cardiovascular Exam: REGULAR RHYTHM, +S1, +S2. absent: Murmur - GI/Abdominal Exam GI & Abdominal Exam: Soft, Normal Bowel Sounds. absent: Tenderness Additional comments: Improved abdominal distension. - Extremities Exam Extremities Exam: Full ROM, Normal Capillary Refill, Normal Inspection. absent : Joint Swelling, Pedal Edema - Back Exam Back Exam: NORMAL INSPECTION - Neurological Exam Neurological Exam: Alert, Awake, CN II-XII Intact, Oriented x3 Neuro motor strength exam: Left Upper Extremity: 5, Right Upper Extremity: 5, Left Lower Extremity: 5, Right Lower Extremity: 5 - Psychiatric Exam Psychiatric exam: Normal Affect, Normal Mood - Skin Skin Exam: Dry, Intact, Normal Color, Warm Assessment and Plan - Assessment and Plan (Free Text) Assessment: Patient is a 63 y/o M with PMHx of Liver Cirrhosis with chronic ascites, hepatic encephalopathy, esophageal varices, CKD stage III, HTN, CHF-pEF, and Afib who presented to the ED on 08/11 for worsening shortness of breath and abdominal distension and pressure. Patient has a history of frequent paracentesis due to chronic ascites. Patient had a paracentesis on 08/11 with removal of 11.2 L of fluid. Patient has improved shortness of breath and abdominal distension s/p paracentesis. Continue to monitor. Plan: SOB and Abdominal Distension 2/2 Ascites from Decompensated Liver Cirrhosis - improving - Abdominal US (08/12): patent portal vein with hepatopetal flow. No thrombus/ obstruction. Mod ascites. - As per GI, patient may make appointment with his primary GI (Dr. Naranjo) for outpatient follow up. - c/w oxycodone 5 mg q6 prn for pain control - c/w Albumin 25% 12.5g IV q6H, lactulose, xifaxin - s/p large volume paracentesis (08/12): 11.2 L fluid removed by IR. - CXR (08/11): moderate right pleural effusion. - c/w duonebs - GI consulted, recs appreciated. - History of frequent paracentesis due to chronic cirrhosis - Possible candidate for liver transplant Hx of KEYUR on CKD Stage III - Creatinine is 1.8 (trending down) - avoid nephrotoxic medications - Nephro consulted, recs appreciated. Consider indwelling abdominal paracentesis catheter. Hx of Hepatic encephalopathy - AAOx3 on exam - c/w rifaxamin and lactulose - ammonia level was normal - GI consulted, recs appreciated Hypokalemia - resolved - Potassium is 4.2 - Tele discontinued - Potassium was 3.5 on admission; repleted Hx of HTN - normotensive s/p paracentesis - monitor BP PPX/Diet - GI ppx: pepcid - DVT ppx: SCDs Dispo: Continue to monitor the patient. Telemetry was discontinued. Fruit Pitter consulted. Case was discussed and reviewed with Attending Physician, Dr. Rosales <Felicita Rosales - Last Filed: 08/13/18 16:54> Objective - Vital Signs/Intake and Output Vital Signs (last 24 hours): Temp Pulse Resp BP Pulse Ox 97.4 F L 59 L 18 99/58 L 97 08/13/18 12:00 08/13/18 14:00 08/13/18 12:00 08/13/18 12:00 08/13/18 06:00 Intake and Output: 08/13/18 08/13/18 06:59 18:59 Intake Total 100 Output Total 375 Balance -275 - Medications Medications: Current Medications Albumin Human (Albumin Human 25% (12.5 Gm/50 Ml)) 12.5 gm IV Q6H [facility] Last Admin: 08/13/18 10:19 Dose: 12.5 gm Albuterol/Ipratropium (Duoneb 3 Mg/0.5 Mg (3 Ml) Ud) 3 ml IH [id number] [facility] Last Admin: 08/13/18 13:03 Dose: 3 ml Alprazolam (Xanax) 0.5 mg PO HS [facility] PRN Reason: Protocol Stop: 08/18/18 22:01 Last Admin: 08/12/18 22:35 Dose: 0.5 mg Famotidine (Pepcid) 20 mg PO HS [facility] Last Admin: 08/12/18 22:35 Dose: 20 mg Azithromycin (Zithromax 500mg In Ns) 500 mg in 250 mls @ 167 mls/hr IVPB DAILY [facility] PRN Reason: Protocol Last Admin: 08/13/18 09:22 Dose: 167 mls/hr Lactulose (Enulose) 20 gm PO DAILY [facility] Last Admin: 08/13/18 09:23 Dose: 20 gm Midodrine (Proamatine) 10 mg PO TID [facility] Last Admin: 08/13/18 13:34 Dose: 10 mg Oxycodone HCl (Oxycodone Immediate Release Tab) 5 mg PO Q6H PRN PRN Reason: Pain, moderate (4-7) Last Admin: 08/13/18 11:38 Dose: 5 mg Propranolol HCl (Inderal) 10 mg PO BID [facility] Last Admin: 08/13/18 09:22 Dose: 10 mg Rifaximin (Xifaxan) 550 mg PO BID [facility] PRN Reason: Protocol Last Admin: 08/13/18 09:22 Dose: 550 mg - Labs Labs: 08/13/18 06:15 08/13/18 06:15 PT 16.1 SECONDS (9.4-12.5) H 08/11/18 02:05 INR 1.40 08/11/18 02:05 Attending/Attestation - Attestation I have personally seen and examined this patient.: Yes I have fully participated in the care of the patient.: Yes I have reviewed all pertinent clinical information, including history, physical exam and plan: Yes Notes (Text): 08/13/18 16:52 Attending note; Patient seen and examined with resident. Patient is alert and awake. Complaining of generalized weakness. Status post paracentesis. Denies any abdominal distention. Denies any nausea, vomiting. Denies any fevers, chills. Denies any cough. Tolerating diet. Patient with a history of chronic back and abdominal discomfort. Patient is a 63 year old Male with PMHx of Liver Cirrhosis with Recurrent ascites, multiple paracentesis, h/o hepatic encephalopathy, esophageal varices, banding, CKD stage III, HTN, CHF is admitted with worsening shortness of breath and abdominal distension and pressure. Status post paracentesis by IR Dr. Crespo. About 11 L of fluid removed. Continue IV albumin. Case discussed with GI in detail. Patient needs close outpatient follow-up with GI. Patient also follows up with [facility]. Acute on chronic kidney disease. Creatinine improved to 1.8 .Fluctuation in creatinine due to hemodynamic changes. Nephrology evaluation appreciated .Needs close outpatient follow-up. Chronic cirrhosis with portal hypertension; continue propranolol. History of encephalopathy; currently alert and awake. Continue lactulose and rifaximin. Chronic back pain; continue oxycodone when necessary. PT evaluation requested. Upon discharge the patient will follow up with PMD Dr. Bishop.
[2018-08-13] MEDS: oxyCODONE 5 mg Immediate Release Tab PO PRN ×2 (11:38→18:40)
[2018-08-13 17:09] LABS: FERRITIN 60.6 ng/mL
[2018-08-14] MEDS: Albuterol-Ipratrop 3 mg / 0.5 (3 ml) UD IH SCH ×4 (01:21→19:56)
[2018-08-14 06:29] LABS: HEMOGLOBIN 10.4 g/dL (14.0-18.0); MEAN CELL VOLUME 100.3 fl (80.0-105.0); MEAN CORPUSCULAR HEMOGLOBIN 32.7 pg (25.0-35.0); MEAN CORPUSCULAR HGB CONC 32.6 g/dl (31.0-37.0); RBC 3.18 10^6/uL (3.5-6.1); RED CELL DISTRIBUTION WIDTH 17.2 % (11.5-14.5); WHITE BLOOD COUNT 5.2 10^3/ul (4.5-11.0)
[2018-08-14 06:42] LABS: ALB/GLOB RATIO 0.7 (1.1-1.8); ALBUMIN 3.2 g/dL (3.0-4.8); CALCIUM 9.2 mg/dL (8.4-10.5)
[2018-08-14] MEDS: Albumin Human 25% (12.5 gm/50 ml) IV SCH (07:49)
[2018-08-14] MEDS: Azithromycin 500MG/NS 250ml 500 MG/250 ML BAG IVPB SCH (09:45)
[2018-08-14] MEDS: oxyCODONE 5 mg Immediate Release Tab PO PRN ×2 (09:52→17:33)
--- NOTE | 2018-08-14 12:55 | CP.PCM.CON ---
History of Present Illness - History of Present Illness History of Present Illness: Palliative consult requested by Dr Tiago Rosales Reason: Goals of care 63 year old male with history of TRUJILLO, ascites , CKD and HTN who prnsted to ED on 08/11 with abdominal distention, worsening shortness of breath. He stated that the abdominal distention causes him to have chest pressure and abdominal pain. He has been receiving paracentisis regularly every 5-6 weeks, last paracentisis was 4 weeks ago at [facility]. He denied fever, chills, nausea, vomiting , palpations, dysuria, dizziness or headaches. EKG: SR with SPV /fusion complexes, septla infarct age undetermined. Labs 08/11/18:Wbc 12.4, Hgb 10.7, Plt 97, Na 137, K 3.5, BUN 45, Creat 2.3, glucose 94, T Bili 2.9, D Bili 1.3, AST 54, ALT 26, Alk Phos 299, LDH 449, BNP 1710. T proten 8.8, albumin 3.2, Troponin 0.02 Chest x ray: moderate size pleural effusion increased form prior exam US of abdomen: for paracentisis on 08/11: 1200 cc of fluid removed from RLQ PMH: CHF, A Fib, esophageal varices, TRUJILLO, Stage IIIB CKD, ascites, HTN, GERD PSH: inguinal hernia repair, paracentisis Social History: Former smoker, denies alcohol or drug use. Lives with significant other, Nuno Flores. Family History: Mom; DM/heart disease. Dad; [place] Advance Care Planning: The patient has an Advanced Directive, a copy is in the chart. Nuno Flores is POA. Review of Systems:As per HPI, 12 point review negative no additional complaints Past Patient History - Infectious Disease Hx of Infectious Diseases: None - Tetanus Immunizations Tetanus Immunization: Unknown - Past Medical History & Family History Past Medical History?: Yes - Past Social History Smoking Status: Former Smoker - CARDIAC Hx Congestive Heart Failure: Yes Hx Hypertension: Yes - PULMONARY Hx Pneumonia: Yes - NEUROLOGICAL Hx Neurological Disorder: No - HEENT Hx HEENT Problems: No - RENAL Hx Renal Failure: Yes (CKD stage 3B) - ENDOCRINE/METABOLIC Hx Endocrine Disorders: No - HEMATOLOGICAL/ONCOLOGICAL Hx Blood Transfusions: Yes Hx Blood Transfusion Reaction: No - INTEGUMENTARY Hx Dermatological Problems: No - MUSCULOSKELETAL/RHEUMATOLOGICAL Hx Falls: No - GASTROINTESTINAL Hx Gastrointestinal Disorders: Yes (ESOPHAGEAL VARICES,DYSPHAGIA,GERD, HEPATOCEPHALOPATHY,GI BLEED) - GENITOURINARY/GYNECOLOGICAL Hx Genitourinary Disorders: No Hx Reproductive Disorders: No - PSYCHIATRIC Hx Anxiety: Yes Hx Depression: Yes Hx Substance Use: No - SURGICAL HISTORY Hx Cardiac Catheterization: Yes Hx Coronary Stent: Yes - ANESTHESIA Hx Anesthesia Reactions: No Hx Malignant Hyperthermia: No Meds Allergies/Adverse Reactions: Allergies Allergy/AdvReac Type Severity Reaction Status Date / Time Beef Containing Products Allergy Severe ANAPHYLAXIS Verified 04/19/18 14:52 beef derived (bovine) Allergy Severe ANAPHYLAXIS Verified 04/19/18 14:52 banana Allergy Intermediate ITCHING Verified 04/19/18 14:52 velcro Allergy ITCHING Uncoded 04/19/18 14:52 - Medications Medications: Current Medications Albuterol/Ipratropium (Duoneb 3 Mg/0.5 Mg (3 Ml) Ud) 3 ml IH [id number] [facility] Last Admin: 08/14/18 07:35 Dose: 3 ml Alprazolam (Xanax) 0.5 mg PO [facility] PRN Reason: Protocol Stop: 08/18/18 22:01 Last Admin: 08/13/18 21:17 Dose: 0.5 mg Famotidine (Pepcid) 20 mg PO HS [facility] Last Admin: 08/13/18 21:18 Dose: 20 mg Lactulose (Enulose) 20 gm PO DAILY [facility] Last Admin: 08/14/18 09:51 Dose: 20 gm Midodrine (Proamatine) 10 mg PO TID [facility] Last Admin: 08/14/18 09:52 Dose: 10 mg Oxycodone HCl (Oxycodone Immediate Release Tab) 5 mg PO Q6H PRN PRN Reason: Pain, moderate (4-7) Last Admin: 08/14/18 09:52 Dose: 5 mg Propranolol HCl (Inderal) 10 mg PO BID [facility] Last Admin: 08/14/18 09:51 Dose: 10 mg Rifaximin (Xifaxan) 550 mg PO BID [facility] PRN Reason: Protocol Last Admin: 08/14/18 09:51 Dose: 550 mg Physical Exam - Constitutional Appears: Cachectic, Chronically Ill - Head Exam Head Exam: NORMOCEPHALIC - Eye Exam Eye Exam: Normal appearance, PERRL - ENT Exam ENT Exam: Mucous Membranes Moist, Normal Oropharynx - Neck Exam Neck exam: Positive for: Normal Inspection - Respiratory Exam Respiratory Exam: Decreased Breath Sounds, NORMAL BREATHING PATTERN Additional comments: breath sounds decreased R > L - Cardiovascular Exam Cardiovascular Exam: Irregular Rhythm, +S1 - GI/Abdominal Exam GI & Abdominal Exam: Distended, Soft, Tenderness - Extremities Exam Extremities exam: Positive for: normal capillary refill, normal inspection - Back Exam Back exam: NORMAL INSPECTION - Neurological Exam Neurological exam: Alert, Oriented x3 - Skin Skin Exam: Dry, Pallor, Warm - Additional Findings Additional findings: Palliative performance scale rating 40 % Results - Vital Signs Recent Vital Signs: Last Vital Signs Temp 98.2 F 08/14/18 06:00 Pulse 70 08/14/18 09:51 Resp 20 08/14/18 06:00 BP 124/73 08/14/18 09:51 Pulse Ox 98 08/14/18 06:00 - Labs Result Diagrams: 08/14/18 06:00 08/14/18 06:00 Labs: Laboratory Results - last 24 hr 08/13/18 08/14/18 08/14/18 06:15 06:00 06:00 WBC 5.2 RBC 3.18 L Hgb 10.4 L Hct 31.9 L MCV 100.3 MCH 32.7 MCHC 32.6 RDW 17.2 H Plt Count 92 L MPV 10.0 Sodium 140 Potassium 4.4 Chloride 103 Carbon Dioxide 29 Anion Gap 12 BUN 36 H Creatinine 1.5 Est GFR ( Amer) 57 Est GFR (Non-Af Amer) 47 Random Glucose 111 H Calcium 9.2 Ferritin 60.6 Total Bilirubin 3.1 H AST 42 ALT 22 Alkaline Phosphatase 194 H Total Protein 7.6 Albumin 3.2 Globulin 4.4 Albumin/Globulin Ratio 0.7 L Assessment & Plan - Assessment and Plan (Free Text) Assessment: 63 year old male with history of CHf, A Fib, asictes, TRUJILLO, CKD who is admitted with right pleural effusion, ascites, shortness of breath,anemia deconditioning and lower abdominal pain. The patient is alert and oriented. He remembers meeting with me on previous admissions. He states he is pursuing liver transplant claims he is still undergoing "testing" at [facility]. I remarked that he appears to have lost weight and seems to be weaker than previous encounter. Mr. Lane states that other than abdominal pain and distention, he is fine. Stares he has been up walking, primarily independent and even played " basketball a few weeks ago". Also states that he as plenty of friends/help at home. I revisited topic of resuscitation status. I explained that his advance directive indicates that he does not want to be intubated or have CPR if his condition is terminal or irreversible Mr Lane expressed that he believes he still has a chance to get well , doesn't think he is terminally ill. I explained that he is requiring more frequent paracentisis and is much more debilitated than in the past. I explained that if he does not want aggressive resuscitation it would be a better option for him to put directive in place now. Encouraged him to speak with Rodrick STRATTON) regarding this matter. Psychosocial support provided. Time spent in goals of care and advance care planning discussion 20 minutes Plan: Goals of care and advance care planning Pain Management: Reports pain as episodic, continue Oxycodone IR. Consider adding long acting Oxycodone twice daily if pain is persistent. Cirrhosis: Continue lactulose and Rifaximin. Follow up at [facility]. Ascites: Follow up at [facility] regarding paracentisis. Deconditioning: PT/OT eval
--- NOTE | 2018-08-14 15:48 | CP.PCM.PN ---
<Ezequiel Alcocer - Last Filed: 08/14/18 15:45> Subjective - Date & Time of Evaluation Date of Evaluation: 08/14/18 Time of Evaluation: 08:23 - Subjective Subjective: Ezequiel Alcocer DO PGY-1, Internal Medicine Resident. Hospitalist Progress Note Patient seen and examined at bedside. Patient is resting in bed, awake and oriented. No acute events overnight. He reported that SOB and abdominal distension are getting better after paracentesis yesterday. Patient denied chest pain, palpitation, fever, chills or change in bowel movement Objective - Vital Signs/Intake and Output Vital Signs (last 24 hours): Temp Pulse Resp BP Pulse Ox 97.9 F 68 18 122/75 98 08/14/18 12:00 08/14/18 14:00 08/14/18 12:00 08/14/18 12:00 08/14/18 06:00 Intake and Output: 08/14/18 08/14/18 06:59 18:59 Intake Total 200 Output Total 450 Balance -250 - Medications Medications: Current Medications Albuterol/Ipratropium (Duoneb 3 Mg/0.5 Mg (3 Ml) Ud) 3 ml IH [id number] [facility] Last Admin: 08/14/18 13:41 Dose: 3 ml Alprazolam (Xanax) 0.5 mg PO HS [facility] PRN Reason: Protocol Stop: 08/18/18 22:01 Last Admin: 08/13/18 21:17 Dose: 0.5 mg Famotidine (Pepcid) 20 mg PO HS [facility] Last Admin: 08/13/18 21:18 Dose: 20 mg Lactulose (Enulose) 20 gm PO DAILY [facility] Last Admin: 08/14/18 09:51 Dose: 20 gm Midodrine (Proamatine) 10 mg PO TID [facility] Last Admin: 08/14/18 14:17 Dose: 10 mg Oxycodone HCl (Oxycodone Immediate Release Tab) 5 mg PO Q6H PRN PRN Reason: Pain, moderate (4-7) Last Admin: 08/14/18 09:52 Dose: 5 mg Propranolol HCl (Inderal) 10 mg PO BID [facility] Last Admin: 08/14/18 09:51 Dose: 10 mg Rifaximin (Xifaxan) 550 mg PO BID [facility] PRN Reason: Protocol Last Admin: 08/14/18 09:51 Dose: 550 mg - Labs Labs: 08/14/18 06:00 08/14/18 06:00 PT 16.1 SECONDS (9.4-12.5) H 08/11/18 02:05 INR 1.40 08/11/18 02:05 - Constitutional Appears: Cachectic, Chronically Ill - Head Exam Head Exam: ATRAUMATIC, NORMOCEPHALIC - Eye Exam Eye Exam: EOMI, Normal appearance, PERRL Pupil Exam: NORMAL ACCOMODATION, PERRL - ENT Exam ENT Exam: Mucous Membranes Moist, Normal Exam - Neck Exam Neck Exam: Full ROM, Normal Inspection. absent: Lymphadenopathy - Respiratory Exam Respiratory Exam: Clear to Ausculation Bilateral, NORMAL BREATHING PATTERN - Cardiovascular Exam Cardiovascular Exam: REGULAR RHYTHM, +S1, +S2 - GI/Abdominal Exam GI & Abdominal Exam: Distended, Tenderness (mild diffuse tenderness to palpate. improving), Organomegaly - Extremities Exam Extremities Exam: Full ROM, Normal Capillary Refill, Normal Inspection. absent: Joint Swelling, Pedal Edema Additional comments: b/l muscle atrophy, decreased muscle mass in UL and LL - Back Exam Back Exam: NORMAL INSPECTION - Neurological Exam Neurological Exam: Alert, Awake, CN II-XII Intact, Oriented x3 Additional comments: generalized muscle weakness use walker to ambulate - Psychiatric Exam Psychiatric exam: Normal Affect, Normal Mood - Skin Skin Exam: Dry, Intact, Normal Color, Warm Assessment and Plan - Assessment and Plan (Free Text) Assessment: Patient is a 63 y/o M with PMHx of Liver Cirrhosis with chronic ascites, hepatic encephalopathy, esophageal varices, CKD stage III, HTN, CHF-pEF, and Afib who presented to the ED with SOB and abdominal distension and pressure. Patient s/p paracentesis with 11.2 L of fluid. Plan: SOB and Abdominal Distension 2/2 Ascites from Decompensated Liver Cirrhosis - improving - Abdominal US (08/12): patent portal vein with hepatopetal flow. No thrombus/obstruction. Mod ascites. - As per GI, patient may make appointment with his primary GI (Dr. Naranjo) for outpatient follow up. - c/w Albumin 25% 12.5g IV q6H, lactulose, xifaxin - s/p large volume paracentesis (08/12): 11.2 L fluid removed by IR. - CXR:moderate right pleural effusion - c/w duonebs - History of frequent paracentesis due to chronic cirrhosis. f/u in [facility] - c/w oxycodone 5 mg q6 prn for pain control Hx of KEYUR on CKD Stage III - Creatinine trending down - avoid nephrotoxic medications - As per Nephro consult: consider indwelling abdominal paracentesis catheter. Hx of Hepatic encephalopathy - AAOx3 on exam - c/w rifaxamin and lactulose - ammonia level was normal Deconditioning -As per PT eval: TCU or NONA as an alternative -Palliative care consulted: continue pain meds and f/u in [facility] for ascites and liver cirrhosis Hx of HTN - normotensive s/p paracentesis - monitor BP PPX/Diet - GI ppx: pepcid - DVT ppx: SCDs Case reviewed and plan discussed with Attending Physician, Dr. Dixon <Kandi Dixon R - Last Filed: 08/15/18 16:15> Objective - Vital Signs/Intake and Output Vital Signs (last 24 hours): Temp Pulse Resp BP Pulse Ox 97.8 F 76 18 122/70 94 L 08/15/18 12:00 08/15/18 14:51 08/15/18 12:00 08/15/18 14:34 08/15/18 14:51 Intake and Output: 08/15/18 08/15/18 06:59 18:59 Intake Total 240 Output Total 100 Balance 140 - Medications Medications: Current Medications Albuterol/Ipratropium (Duoneb 3 Mg/0.5 Mg (3 Ml) Ud) 3 ml IH [id number] [facility] Last Admin: 08/15/18 13:15 Dose: 3 ml Alprazolam (Xanax) 0.5 mg PO HS [facility]; Protocol Stop: 08/18/18 22:01 Last Admin: 08/14/18 22:27 Dose: 0.5 mg Bisacodyl (Dulcolax) 10 mg RC ONCE ONE Last Admin: 08/15/18 14:13 Dose: Not Given Famotidine (Pepcid) 20 mg PO HS [facility] Last Admin: 08/14/18 22:27 Dose: 20 mg Lactulose (Enulose) 20 gm PO DAILY [facility] Last Admin: 08/14/18 09:51 Dose: 20 gm Midodrine (Proamatine) 10 mg PO TID [facility] Last Admin: 08/15/18 14:07 Dose: 10 mg Oxycodone HCl (Oxycodone Immediate Release Tab) 5 mg PO Q6H PRN PRN Reason: Pain, moderate (4-7) Last Admin: 08/14/18 17:33 Dose: 5 mg Propranolol HCl (Inderal) 10 mg PO BID [facility] Last Admin: 08/14/18 17:33 Dose: 10 mg Rifaximin (Xifaxan) 550 mg PO BID [facility]; Protocol Last Admin: 08/14/18 17:33 Dose: 550 mg Torsemide (Demadex) 10 mg PO DAILY [facility] - Labs Labs: 08/14/18 06:00 08/14/18 06:00 PT 16.1 SECONDS (9.4-12.5) H 08/11/18 02:05 INR 1.40 08/11/18 02:05 Attending/Attestation - Attestation I have personally seen and examined this patient.: Yes I have fully participated in the care of the patient.: Yes I have reviewed all pertinent clinical information, including history, physical exam and plan: Yes Notes (Text): Patient seen and examined by me at 10:45AM with resident 08/14/18. Case including HPI, physical exam, and assessment and plan discussed with resident. Agree with above with following additions/corrections. Patient is 63-year-old male with past medical history significant for nonalcoholic liver cirrhosis, hepatic encephalopathy, chronic ascites, esophageal varices, chronic kidney disease, diastolic CHF, and paroxysmal atrial fibrillation that presented to the emergency room with shortness of breath. Patient states that he is feeling okay today. States he is having abdominal pain. Shortness of breath improved. No nausea or vomiting. No headaches or dizziness. Patient states that he has a loss of appetite. No chest pain or palpitations. No dysuria. Patient is has having bowel movements. Patient did ambulate with physical therapy today who recommends TCU. Physical exam: Gen: Awake and alert lying in bed in no acute distress HEENT: Normocephalic, atraumatic. Extraocular muscles intact, pupils equal reactive. No scleral icterus. Oropharynx is pink and moist. Neck is supple. Cardiovascular: Normal rhythm. Normal S1, S2. No murmurs, rubs, or gallops a ppreciated Pulmonary: Normal respiratory effort. No rhonchi, rales, or wheezing appreciated. Gastrointestinal: Soft, positive distention. Positive generalized tenderness.. Positive bowel sounds all 4 quadrants, no guarding. Musculoskeletal: Moves all extremities. No calf tenderness. No edema appre ciated. Central nervous system: AAO x 3. CN 2-12 grossly intact Dermatologic: Skin warm and dry Assessment and plan: Patient is 63-year-old male with past medical history significant for nonalcoholic liver cirrhosis, hepatic encephalopathy, chronic ascites, esophageal varices, chronic kidney disease, diastolic CHF, and paroxysmal atrial fibrillation that presented to the emergency room with lucina rtness of breath. 1. Dyspnea. Likely secondary to ascites/pleural effusion. Improved with paracentesis. S/P paracentesis with 11,200ml removed. Continue to monitor. Follow up repeat chest xray. 2. Ascites secondary to non alcoholic liver cirrhosis. S/P paracentesis with 11,200ml removed. S/P albumin. Patient may benefit from pleurx cath. Will follow up with patient's GI at [facility]. Abdominal Doppler ultrasound per radiologist showed patent portal vein with hepatopetal flow. Continue with lactulose and xifaxin. Continue propranolol. GI recommendations appreciated. 3. Abdominal pain. Secondary to ascites and liver cirrhosis. Continue with pain management with oxycodone as needed. 4. Moderate right pleural effusion. Will repeat chest xray. 5. KEYUR on CKD. Improving. Nephrology following, recommendations appreciated. 6. Chronic Anemia. H&H stable. Patient asymptomatic. Continue to mointor CBC. 7. History of hepatic encephalopathy. No encephalopathy currently. Continue lactulose and Xifaxan. 8. Anxiety. Continue Xanax at bedtime. 9. GI/DVT prophylaxis. Pepcid and SCDs. Case was discussed in detail with the patient regarding current diagnosis and treatment plan. All questions were answered.
--- NOTE | 2018-08-14 17:43 | RAD ---
HISTORY: Follow-up COMPARISON: 08/11/2018 TECHNIQUE: Chest PA and lateral FINDINGS: LINES AND TUBES: None. LUNG AND PLEURA: The left lung is clear. No change in moderate right pleural effusion. No left pleural effusion or pneumothorax. HEART AND MEDIASTINUM: The heart is not enlarged. The hilar and mediastinal contours are within normal limits. SKELETAL STRUCTURES: The bony structures are within normal limits for the patient's age. VISUALIZED UPPER ABDOMEN: Normal. OTHER FINDINGS: None. IMPRESSION: No change in moderate right pleural effusion. Underlying pneumonia cannot be excluded. Follow-up to resolution is advised.
--- NOTE | 2018-08-14 23:34 | CP.PCM.PN ---
Objective - Vital Signs/Intake and Output Vital Signs (last 24 hours): Temp Pulse Resp BP Pulse Ox 98.5 F 68 18 116/69 98 08/14/18 16:56 08/14/18 18:00 08/14/18 16:56 08/14/18 16:56 08/14/18 06:00 Intake and Output: 08/14/18 08/15/18 18:59 06:59 Intake Total 954 Output Total 850 Balance 104 - Medications Medications: Current Medications Albuterol/Ipratropium (Duoneb 3 Mg/0.5 Mg (3 Ml) Ud) 3 ml IH [id number] [facility] Last Admin: 08/14/18 19:56 Dose: 3 ml Alprazolam (Xanax) 0.5 mg PO [facility] PRN Reason: Protocol Stop: 08/18/18 22:01 Last Admin: 08/14/18 22:27 Dose: 0.5 mg Famotidine (Pepcid) 20 mg PO [facility] Last Admin: 08/14/18 22:27 Dose: 20 mg Lactulose (Enulose) 20 gm PO DAILY [facility] Last Admin: 08/14/18 09:51 Dose: 20 gm Midodrine (Proamatine) 10 mg PO TID [facility] Last Admin: 08/14/18 17:33 Dose: 10 mg Oxycodone HCl (Oxycodone Immediate Release Tab) 5 mg PO Q6H PRN PRN Reason: Pain, moderate (4-7) Last Admin: 08/14/18 17:33 Dose: 5 mg Propranolol HCl (Inderal) 10 mg PO BID [facility] Last Admin: 08/14/18 17:33 Dose: 10 mg Rifaximin (Xifaxan) 550 mg PO BID [facility] PRN Reason: Protocol Last Admin: 08/14/18 17:33 Dose: 550 mg - Labs Labs: 08/14/18 06:00 08/14/18 06:00 PT 16.1 SECONDS (9.4-12.5) H 08/11/18 02:05 INR 1.40 08/11/18 02:05
[2018-08-15] MEDS: Albuterol-Ipratrop 3 mg / 0.5 (3 ml) UD IH SCH ×4 (01:19→20:50)
--- NOTE | 2018-08-15 05:58 | CP.PCM.PN ---
<Ezequiel Alcocer - Last Filed: 08/15/18 13:09> Subjective - Date & Time of Evaluation Date of Evaluation: 08/15/18 Time of Evaluation: 05:32 - Subjective Subjective: Ezequiel Alcocer DO PGY-1, Internal Medicine Resident. Hospitalist Progress Note Patient seen and examined at bedside. Patient is resting in bed, awake and oriented. No acute events overnight. He reported that his SOB and abdominal distension are getting better after paracentesis. Patient did not have bowel movement for 2 days. Patient denied chest pain, palpitation, fever, chills or change in bowel movement. Objective - Vital Signs/Intake and Output Vital Signs (last 24 hours): Temp Pulse Resp BP Pulse Ox 98.1 F 68 20 124/68 96 08/15/18 00:01 08/15/18 02:00 08/15/18 00:01 08/15/18 00:01 08/15/18 00:01 Intake and Output: 08/14/18 08/15/18 18:59 06:59 Intake Total 954 Output Total 850 Balance 104 - Medications Medications: Current Medications Albuterol/Ipratropium (Duoneb 3 Mg/0.5 Mg (3 Ml) Ud) 3 ml IH [id number] [facility] Last Admin: 08/15/18 01:19 Dose: 3 ml Alprazolam (Xanax) 0.5 mg PO HS [facility]; Protocol Stop: 08/18/18 22:01 Last Admin: 08/14/18 22:27 Dose: 0.5 mg Famotidine (Pepcid) 20 mg PO HS [facility] Last Admin: 08/14/18 22:27 Dose: 20 mg Lactulose (Enulose) 20 gm PO DAILY [facility] Last Admin: 08/14/18 09:51 Dose: 20 gm Midodrine (Proamatine) 10 mg PO TID [facility] Last Admin: 08/14/18 17:33 Dose: 10 mg Oxycodone HCl (Oxycodone Immediate Release Tab) 5 mg PO Q6H PRN PRN Reason: Pain, moderate (4-7) Last Admin: 08/14/18 17:33 Dose: 5 mg Propranolol HCl (Inderal) 10 mg PO BID [facility] Last Admin: 08/14/18 17:33 Dose: 10 mg Rifaximin (Xifaxan) 550 mg PO BID [facility]; Protocol Last Admin: 08/14/18 17:33 Dose: 550 mg - Labs Labs: 08/14/18 06:00 08/14/18 06:00 PT 16.1 SECONDS (9.4-12.5) H 08/11/18 02:05 INR 1.40 08/11/18 02:05 - Additional Findings Additional findings: - Constitutional Appears: Cachectic, Chronically Ill - Head Exam Head Exam: ATRAUMATIC, NORMOCEPHALIC - Eye Exam Eye Exam: EOMI, Normal appearance, PERRL Pupil Exam: NORMAL ACCOMODATION, PERRL - ENT Exam ENT Exam: Mucous Membranes Moist, Normal Exam - Neck Exam Neck Exam: Full ROM, Normal Inspection. absent: Lymphadenopathy - Respiratory Exam Respiratory Exam: Clear to Ausculation Bilateral, NORMAL BREATHING PATTERN - Cardiovascular Exam Cardiovascular Exam: REGULAR RHYTHM, +S1, +S2 - GI/Abdominal Exam GI & Abdominal Exam: Distended, Tenderness (mild diffuse tenderness to palpate. improving), Organomegaly, LLQ palpable masses felt on palpation - Extremities Exam Extremities Exam: Full ROM, Normal Capillary Refill, Normal Inspection. absent: Joint Swelling, Pedal Edema Additional comments: b/l muscle atrophy, decreased muscle mass in UL and LL - Back Exam Back Exam: NORMAL INSPECTION - Neurological Exam Neurological Exam: Alert, Awake, CN II-XII Intact, Oriented x3 Additional comments: generalized muscle weakness use walker to ambulate - Psychiatric Exam Psychiatric exam: Normal Affect, Normal Mood - Skin Skin Exam: Dry, Intact, Normal Color, Warm Assessment and Plan - Assessment and Plan (Free Text) Assessment: Patient is a 63 y/o M with PMHx of Liver Cirrhosis with chronic ascites, hepatic encephalopathy, esophageal varices, CKD stage III, HTN, CHF-pEF, and Afib who presented to the ED with SOB and abdominal distension and pressure. Patient s/p paracentesis with 11.2 L of fluid. Possible indwelling abdominal catheter placement for future papacentesis. Plan: SOB and Abdominal Distension 2/2 Ascites from Decompensated Liver Cirrhosis - improving - Abdominal US (08/12): patent portal vein with hepatopetal flow. No thrombus/obstruction. Mod ascites. - As per GI, patient may make appointment with his primary GI (Dr. Naranjo) for outpatient follow up. - c/w Albumin 25% 12.5g IV q6H, lactulose, xifaxin - s/p large volume paracentesis (08/12): 11.2 L fluid removed by IR. - CXR:moderate right pleural effusion - c/w duonebs - History of frequent paracentesis due to chronic cirrhosis. f/u in [facility] - c/w oxycodone 5 mg q6 prn for pain control - started on torsemide 10 po daily - will contact GI physician at [facility] for possible indwelling abdominal catheter given rate of paracentesis lately -d/c telemetry Hx of KEYUR on CKD Stage III - Creatinine trending down - avoid nephrotoxic medications - As per Nephro consult: consider indwelling abdominal paracentesis catheter. Hx of Hepatic encephalopathy - AAOx3 on exam - c/w rifaxamin and lactulose - ammonia level was normal Deconditioning -As per PT eval: TCU or NONA as an alternative -Palliative care consulted: continue pain meds and f/u in [facility] for ascites and liver cirrhosis Hx of HTN - normotensive s/p paracentesis - monitor BP PPX/Diet - GI ppx: pepcid - DVT ppx: SCDs Case reviewed and plan discussed with Attending Physician, Dr. Dixon <Kandi Dixon R - Last Filed: 08/16/18 15:37> Objective - Vital Signs/Intake and Output Vital Signs (last 24 hours): Temp Pulse Resp BP Pulse Ox 98.2 F 67 18 96/54 L 98 08/16/18 06:00 08/16/18 06:00 08/16/18 06:00 08/16/18 10:25 08/16/18 06:00 Intake and Output: 08/16/18 08/16/18 06:59 18:59 Intake Total 440 Output Total 700 200 Balance -260 -200 - Medications Medications: Current Medications Albuterol/Ipratropium (Duoneb 3 Mg/0.5 Mg (3 Ml) Ud) 3 ml IH [id number] [facility] Last Admin: 08/16/18 14:42 Dose: Not Given Alprazolam (Xanax) 0.5 mg PO HS [facility]; Protocol Stop: 08/18/18 22:01 Last Admin: 08/15/18 22:02 Dose: 0.5 mg Bisacodyl (Dulcolax) 10 mg RC ONCE ONE Last Admin: 08/15/18 14:13 Dose: Not Given Famotidine (Pepcid) 20 mg PO HS [facility] Last Admin: 08/15/18 22:02 Dose: 20 mg Lactulose (Enulose) 20 gm PO DAILY [facility] Last Admin: 08/16/18 10:10 Dose: 20 gm Midodrine (Proamatine) 10 mg PO TID [facility] Last Admin: 08/16/18 14:12 Dose: Not Given Oxycodone HCl (Oxycodone Immediate Release Tab) 5 mg PO Q6H PRN PRN Reason: Pain, moderate (4-7) Last Admin: 08/14/18 17:33 Dose: 5 mg Propranolol HCl (Inderal) 10 mg PO BID [facility] Last Admin: 08/16/18 10:25 Dose: Not Given Rifaximin (Xifaxan) 550 mg PO BID [facility]; Protocol Last Admin: 08/16/18 10:10 Dose: 550 mg Torsemide (Demadex) 10 mg PO DAILY [facility] Last Admin: 08/16/18 10:19 Dose: Not Given - Labs Labs: 08/16/18 08:00 08/16/18 08:00 PT 16.1 SECONDS (9.4-12.5) H 08/11/18 02:05 INR 1.40 08/11/18 02:05 Attending/Attestation - Attestation I have personally seen and examined this patient.: Yes I have fully participated in the care of the patient.: Yes I have reviewed all pertinent clinical information, including history, physical exam and plan: Yes Notes (Text): Patient seen and examined by me at 9:55AM with resident 08/15/18. Case including HPI, physical exam, and assessment and plan discussed with resident. Agree with above with following additions/corrections. Patient is 63-year-old male with past medical history significant for nonalcoholic liver cirrhosis, hepatic encephalopathy, chronic ascites, esophageal varices, chronic kidney disease, diastolic CHF, and paroxysmal atrial fibrillation that presented to the emergency room with shortness of breath. Patient states that he is feeling okay. Still with abdominal pain. Patient states he had a small bowel movement today and feels a little constipated. He denies any shortness of breath. No nausea or vomiting. No headaches or dizziness. No chest pain or palpitations. No dysuria. Physical exam: Gen: Awake and alert lying in bed in no acute distress HEENT: Normocephalic, atraumatic. Extraocular muscles intact, pupils equal reactive. No scleral icterus. Oropharynx is pink and moist. Neck is supple. Cardiovascular: Normal rhythm. Normal S1, S2. No murmurs, rubs, or gallops appreciated Pulmonary: Normal respiratory effort. No rhonchi, rales, or wheezing appreciated. Gastrointestinal: Soft, positive distention. Positive generalized tenderness.. Positive bowel sounds all 4 quadrants, no guarding. Musculoskeletal: Moves all extremities. No calf tenderness. No edema appreciated. Central nervous system: AAO x 3. CN 2-12 grossly intact Dermatologic: Skin warm and dry Assessment and plan: Patient is 63-year-old male with past medical history significant for nonalcoholic liver cirrhosis, hepatic encephalopathy, chronic ascites, esophageal varices, chronic kidney disease, diastolic CHF, and paroxysmal atrial fibrillation that presented to the emergency room with shortness of breath. 1. Dyspnea. Likely secondary to ascites/pleural effusion. Improved with paracentesis. S/P paracentesis with 11,200ml removed. Continue to monitor. Repeat chest xray per radiologist shows on change in moderate right pleural effusion. Will give dose of lasix. Repeat chest xray in AM. Patient also restarted on torsemide. 2. Ascites secondary to non alcoholic liver cirrhosis. S/P paracentesis with 11,200ml removed. S/P albumin. Patient may benefit from pleurx cath. Call placed to patient's GI at [facility]. Abdominal Doppler ultrasound per radiologist showed patent portal vein with hepatopetal flow. Continue with lactulose and xifaxin. Continue propranolol. GI recommendations appreciated. Patient started on torsem reyna. 3. Abdominal pain. Secondary to ascites and liver cirrhosis. Continue with pain management with oxycodone as needed. Patient for possible pleurx cath placement. 4. Moderate right pleural effusion. Will give dose of lasix. Continue torsemide. Follow up repeat chest xray in AM. 5. KEYUR on CKD. Improving. Nephrology following, recommendations appreciated. Follow up repeat labs in AM. 6. Chronic Anemia. H&H stable. Patient asymptomatic. Continue to mointor CBC. 7. History of hepatic encephalopathy. No encephalopathy currently. Continue lactulose and Xifaxan. 8. Anxiety. Continue Xanax at bedtime. 9. GI/DVT prophylaxis. Pepcid and SCDs. Case was discussed in detail with the patient regarding current diagnosis and treatment plan. All questions were answered.
--- NOTE | 2018-08-15 19:42 | CP.PCM.PN ---
Subjective - Date & Time of Evaluation Date of Evaluation: 08/15/18 Time of Evaluation: 10:00 - Subjective Subjective: Patient eating most of his meals; no sob; swallowing improved; abdomen getting distended; Objective - Vital Signs/Intake and Output Vital Signs (last 24 hours): Temp Pulse Resp BP Pulse Ox 97.8 F 76 18 122/70 94 L 08/15/18 12:00 08/15/18 14:51 08/15/18 12:00 08/15/18 14:34 08/15/18 14:51 Intake and Output: 08/15/18 08/16/18 18:59 06:59 Intake Total 200 Output Total 400 Balance -200 - Medications Medications: Current Medications Albuterol/Ipratropium (Duoneb 3 Mg/0.5 Mg (3 Ml) Ud) 3 ml IH [id number] [facility] Last Admin: 08/15/18 13:15 Dose: 3 ml Alprazolam (Xanax) 0.5 mg PO HS [facility]; Protocol Stop: 08/18/18 22:01 Last Admin: 08/14/18 22:27 Dose: 0.5 mg Bisacodyl (Dulcolax) 10 mg RC ONCE ONE Last Admin: 08/15/18 14:13 Dose: Not Given Famotidine (Pepcid) 20 mg PO [facility] Last Admin: 08/14/18 22:27 Dose: 20 mg Lactulose (Enulose) 20 gm PO DAILY [facility] Last Admin: 08/14/18 09:51 Dose: 20 gm Midodrine (Proamatine) 10 mg PO TID [facility] Last Admin: 08/15/18 17:57 Dose: 10 mg Oxycodone HCl (Oxycodone Immediate Release Tab) 5 mg PO Q6H PRN PRN Reason: Pain, moderate (4-7) Last Admin: 08/14/18 17:33 Dose: 5 mg Propranolol HCl (Inderal) 10 mg PO BID [facility] Last Admin: 08/15/18 17:56 Dose: 10 mg Rifaximin (Xifaxan) 550 mg PO BID [facility]; Protocol Last Admin: 08/15/18 17:56 Dose: 550 mg Torsemide (Demadex) 10 mg PO DAILY [facility] - Labs Labs: 08/14/18 06:00 08/14/18 06:00 PT 16.1 SECONDS (9.4-12.5) H 08/11/18 02:05 INR 1.40 08/11/18 02:05 - Constitutional Appears: Non-toxic, No Acute Distress - Eye Exam Eye Exam: Normal appearance - Respiratory Exam Respiratory Exam: Clear to Ausculation Bilateral. absent: Respiratory Distress Additional comments: decreased sounds at R base; - Cardiovascular Exam Cardiovascular Exam: RRR, +S1, +S2 - GI/Abdominal Exam GI & Abdominal Exam: Distended, Soft, Tenderness - Exam Exam: absent: Bladder Distension - Extremities Exam Additional comments: no leg edema; - Neurological Exam Neurological Exam: Alert, Awake - Psychiatric Exam Psychiatric exam: Normal Mood. absent: Agitated - Skin Skin Exam: Warm. absent: Cyanosis Assessment and Plan (1) KEYUR (acute kidney injury) Assessment & Plan: KEYUR on CKD; pre-renal etiology, improved with volume expansion; discussed with primary team, will need to tolerate a certain level of renal insufficiency while keeping patient on diuretics to prevent rapid accumulation of ascites buildup; other alternative is pleurx catheter/weekly ascites drainage; -restarting diuretics with torsemide 10 mg daily; Status: Acute (2) Ascites Assessment & Plan: see above; Status: Acute (3) CKD (chronic kidney disease) Assessment & Plan: Relatively mild, checking PTH and 25-OH vit D levels; Status: Chronic
[2018-08-16] MEDS: Albuterol-Ipratrop 3 mg / 0.5 (3 ml) UD IH SCH ×4 (02:16→20:25)
--- NOTE | 2018-08-16 06:15 | CP.PCM.PN ---
<Ezequiel Alcocer - Last Filed: 08/16/18 15:32> Subjective - Date & Time of Evaluation Date of Evaluation: 08/16/18 Time of Evaluation: 06:13 - Subjective Subjective: Ezequiel Alcocer DO PGY-1, Internal Medicine Resident. Hospitalist Progress Note Patient seen and examined at bedside. Patient is resting in bed, awake and oriented. No acute events overnight. He reported that his SOB has improved after paracentesis. He started to have abdominal distention with discomfort. Patient did not have bowel movement for 3 days now. Patient denied chest pain, palpitation, fever, chills or change in bowel movement. Objective - Vital Signs/Intake and Output Vital Signs (last 24 hours): Temp Pulse Resp BP Pulse Ox 98.3 F 67 20 116/62 93 L 08/15/18 22:59 08/15/18 22:59 08/15/18 22:59 08/15/18 22:59 08/15/18 22:59 Intake and Output: 08/15/18 08/16/18 18:59 06:59 Intake Total 440 Output Total 700 Balance -260 - Medications Medications: Current Medications Albuterol/Ipratropium (Duoneb 3 Mg/0.5 Mg (3 Ml) Ud) 3 ml IH [id number] [facility] Last Admin: 08/16/18 02:16 Dose: 3 ml Alprazolam (Xanax) 0.5 mg PO HS [facility]; Protocol Stop: 08/18/18 22:01 Last Admin: 08/15/18 22:02 Dose: 0.5 mg Bisacodyl (Dulcolax) 10 mg RC ONCE ONE Last Admin: 08/15/18 14:13 Dose: Not Given Famotidine (Pepcid) 20 mg PO HS [facility] Last Admin: 08/15/18 22:02 Dose: 20 mg Lactulose (Enulose) 20 gm PO DAILY [facility] Last Admin: 08/14/18 09:51 Dose: 20 gm Midodrine (Proamatine) 10 mg PO TID [facility] Last Admin: 08/15/18 17:57 Dose: 10 mg Oxycodone HCl (Oxycodone Immediate Release Tab) 5 mg PO Q6H PRN PRN Reason: Pain, moderate (4-7) Last Admin: 08/14/18 17:33 Dose: 5 mg Propranolol HCl (Inderal) 10 mg PO BID [facility] Last Admin: 08/15/18 19:55 Dose: 10 mg Rifaximin (Xifaxan) 550 mg PO BID [facility]; Protocol Last Admin: 08/15/18 17:56 Dose: 550 mg Torsemide (Demadex) 10 mg PO DAILY [facility] - Labs Labs: 08/14/18 06:00 08/14/18 06:00 PT 16.1 SECONDS (9.4-12.5) H 08/11/18 02:05 INR 1.40 08/11/18 02:05 - Additional Findings Additional findings: - Constitutional Appears: Cachectic, Chronically Ill - Head Exam Head Exam: ATRAUMATIC, NORMOCEPHALIC - Eye Exam Eye Exam: EOMI, Normal appearance, PERRL Pupil Exam: NORMAL ACCOMODATION, PERRL - ENT Exam ENT Exam: Mucous Membranes Moist, Normal Exam - Neck Exam Neck Exam: Full ROM, Normal Inspection. absent: Lymphadenopathy - Respiratory Exam Respiratory Exam: Clear to Ausculation Bilateral, NORMAL BREATHING PATTERN - Cardiovascular Exam Cardiovascular Exam: REGULAR RHYTHM, +S1, +S2 - GI/Abdominal Exam GI & Abdominal Exam: Distended, Tenderness (mild diffuse tenderness to palpate. improving), Organomegaly, LLQ palpable masses felt on palpation - Extremities Exam Extremities Exam: Full ROM, Normal Capillary Refill, Normal Inspection. absent: Joint Swelling, Pedal Edema Additional comments: b/l muscle atrophy, decreased muscle mass in UL and LL - Back Exam Back Exam: NORMAL INSPECTION - Neurological Exam Neurological Exam: Alert, Awake, CN II-XII Intact, Oriented x3 Additional comments: generalized muscle weakness use walker to ambulate - Psychiatric Exam Psychiatric exam: Normal Affect, Normal Mood - Skin Skin Exam: Dry, Intact, Normal Color, Warm Assessment and Plan - Assessment and Plan (Free Text) Assessment: Patient is a 63 y/o M with PMHx of Liver Cirrhosis with chronic ascites, hepatic encephalopathy, esophageal varices, CKD stage III, HTN, CHF-pEF, and Afib who presented to the ED with SOB and abdominal distension and pressure. Patient s/p paracentesis with 11.2 L of fluid, SOB improved. On diuretics. Patient is going for pleurx catheter placement today for future papacentesis. Plan: SOB and Abdominal Distension 2/2 Ascites from Decompensated Liver Cirrhosis - improving - Abdominal US (08/12): patent portal vein with hepatopetal flow. No thrombus/obstruction. Moderate ascites. - As per GI, patient may make appointment with his primary GI (Dr. Naranjo) for outpatient follow up. - c/w Albumin 25% 12.5g IV q6H, lactulose, xifaxin - s/p large volume paracentesis (08/12): 11.2 L fluid removed by IR. - CXR:moderate right pleural effusion - c/w duonebs - History of frequent paracentesis due to chronic cirrhosis. f/u in [facility] - c/w oxycodone 5 mg q6 prn for pain control - continue torsemide 10 po daily - d/c telemetry - Patient is going for pleurx abdominal catheter today Constipation - on lactulose 20 mg daily - patient does not want to take more lactulose because of excessive diarrhea - patient was prescribed ducolax yesterday but refused to take. will take it today to relive his constipation KEYUR on CKD Stage III - Creatinine trending down - avoid nephrotoxic medications - As per Nephro consult: consider indwelling abdominal paracentesis catheter. continue torsemide - PTH and Ca are normal Hx of Hepatic encephalopathy - AAOx3 on exam - c/w rifaxamin and lactulose - ammonia level was normal Anemia -likely due to chronic disease -H/H stable -continue monitoring Deconditioning -As per PT eval: TCU or NONA as an alternative -Palliative care consulted: continue pain meds and f/u in [facility] for ascites and liver cirrhosis Hx of HTN - normotensive s/p paracentesis - monitor BP Anxiety -continue xanax at bedtime PPX/Diet - GI ppx: pepcid - DVT ppx: SCDs Case reviewed and plan discussed with Attending Physician, Dr. Dixon <Kandi Dixon R - Last Filed: 08/17/18 16:07> Objective - Vital Signs/Intake and Output Vital Signs (last 24 hours): Temp Pulse Resp BP Pulse Ox 98.4 F 79 18 128/77 99 08/17/18 14:00 08/17/18 14:00 08/17/18 14:00 08/17/18 14:00 08/17/18 14:00 Intake and Output: 08/17/18 08/17/18 06:59 18:59 Intake Total 240 480 Output Total 500 Balance -260 480 - Medications Medications: Current Medications Albuterol/Ipratropium (Duoneb 3 Mg/0.5 Mg (3 Ml) Ud) 3 ml IH [id number] [facility] Last Admin: 08/17/18 13:03 Dose: 3 ml Alprazolam (Xanax) 0.5 mg PO HS [facility]; Protocol Stop: 08/18/18 22:01 Last Admin: 08/16/18 22:53 Dose: 0.5 mg Bisacodyl (Dulcolax) 10 mg RC ONCE ONE Last Admin: 08/15/18 14:13 Dose: Not Given Famotidine (Pepcid) 20 mg PO HS [facility] Last Admin: 08/16/18 22:53 Dose: 20 mg Lactulose (Enulose) 20 gm PO DAILY [facility] Last Admin: 08/17/18 10:51 Dose: 20 gm Midodrine (Proamatine) 10 mg PO TID [facility] Last Admin: 08/17/18 15:02 Dose: 10 mg Oxycodone HCl (Oxycodone Immediate Release Tab) 5 mg PO Q6H PRN PRN Reason: Pain, moderate (4-7) Last Admin: 08/17/18 15:02 Dose: 5 mg Propranolol HCl (Inderal) 10 mg PO BID [facility] Last Admin: 08/17/18 15:02 Dose: Not Given Rifaximin (Xifaxan) 550 mg PO BID [facility]; Protocol Last Admin: 08/17/18 10:52 Dose: 550 mg Torsemide (Demadex) 10 mg PO DAILY [facility] Last Admin: 08/17/18 10:55 Dose: 10 mg - Labs Labs: 08/17/18 09:00 08/17/18 10:40 PT 16.1 SECONDS (9.4-12.5) H 08/11/18 02:05 INR 1.40 08/11/18 02:05 Attending/Attestation - Attestation I have personally seen and examined this patient.: Yes I have fully participated in the care of the patient.: Yes I have reviewed all pertinent clinical information, including history, physical exam and plan: Yes Notes (Text): Patient seen and examined by me at 11:10 AM with resident 08/16/18. Case including HPI, physical exam, and assessment and plan discussed with resident. Agree with above with following additions/corrections. Patient is 63-year-old male with past medical history significant for nonalcoholic liver cirrhosis, hepatic encephalopathy, chronic ascites, esop hageal varices, chronic kidney disease, diastolic CHF, and paroxysmal atrial fibrillation that presented to the emergency room with shortness of breath. Patient states that he is not feeling too great. Patient is still having abdominal pain. Patient states that he is still constipated. He did not want to take ducolax yesterday but is agreeing to take it today. No shortness of breath. No nausea or vomiting. No headaches or dizziness. No chest pain or palpitations. No dysuria. Physical exam: Gen: Awake and alert lying in bed in no acute distress HEENT: Normocephalic, atraumatic. Extraocular muscles intact, pupils equal reactive. No scleral icterus. Oropharynx is pink and moist. Neck is supple. Cardiovascular: Normal rhythm. Normal S1, S2. No murmurs, rubs, or gallops appreciated Pulmonary: Normal respiratory effort. No rhonchi, rales, or wheezing appreciated. Gastrointestinal: Soft, positive distention. Positive generalized tenderness.. Positive bowel sounds all 4 quadrants, no guarding. Musculoskeletal: Moves all extremities. No calf tenderness. No edema appreciated. Central nervous system: AAO x 3. CN 2-12 grossly intact Dermatologic: Skin warm and dry Assessment and plan: Patient is 63-year-old male with past medical history significant for nonalcoholic liver cirrhosis, hepatic encephalopathy, chronic ascites, esophageal varices, chronic kidney disease, diastolic CHF, and paroxysmal atrial fibrillation that presented to the emergency room with shortness of breath. 1. Dyspnea. Likely secondary to ascites/pleural effusion. Dyspnea resolved. S/P paracentesis with 11,200ml removed. Continue to monitor. Chest xray per radiologist shows moderate right pleural effusion. Continue torsemide. 2. Ascites secondary to non alcoholic liver cirrhosis. S/P paracentesis with 11,200ml removed. S/P albumin. Abdominal Doppler ultrasound per radiologist showed patent portal vein with hepatopetal flow. Continue with lactulose and xifaxin. Continue propranolol. GI recommendations appreciated. Continue torsemide. Patient for pleurx cath today. 3. Abdominal pain. Secondary to ascites and liver cirrhosis and constipation. Continue with pain management with oxycodone as needed. For pleurx cath today. Given dulcolax. 4. Moderate right pleural effusion. Continue torsemide. No shortness of breath. 5. KEYUR on CKD. Nephrology following, recommendations appreciated. Continue to monitor 6. Chronic Anemia. H&H stable. Patient asymptomatic. Continue to mointor CBC. 7. Thrombocytopenia. Likely secondary to liver cirrhosis. Continue to monitor. 8. History of hepatic encephalopathy. No encephalopathy currently. Continue lactulose and Xifaxan. 9. Anxiety. Continue Xanax at bedtime. 10. GI/DVT prophylaxis. Pepcid and SCDs. Case was discussed in detail with the patient regarding current diagnosis and treatment plan. All questions were answered
--- NOTE | 2018-08-16 07:44 | RAD ---
Date of service: 08/16/2018 HISTORY: monitor pleural effusion COMPARISON: Chest radiographs 08/14/2018. FINDINGS: LUNGS: Left chest remains clear. Taking differences in positioning into account, there is likely no significant interval change in right pleural effusion. Underlying airspace disease not excluded the right base. No pulmonary vascular congestion. Cardiac silhouette stable. No pneumothorax bilaterally. PLEURA: As above. CARDIOVASCULAR: As above. OSSEOUS STRUCTURES: No significant abnormalities. VISUALIZED UPPER ABDOMEN: Normal. OTHER FINDINGS: None. IMPRESSION: Stable a moderate right pleural effusion. Underlying atelectasis or infiltrate is not excluded the right base once again with remaining left hemithorax clear. No pulmonary vascular congestion.
[2018-08-16 08:14] LABS: BASO # 0.04 K/mm3 (0.0-2.0); BASO % 0.7 % (0.0-3.0); EOS # 0.3 (0.0-0.7); EOS % 5.7 % (1.5-5.0); GRAN # 3.13 (1.4-6.5); GRAN % 55.8 % (50.0-68.0); HEMOGLOBIN 9.9 g/dL (14.0-18.0); LYMPH # 1.3 (1.2-3.4); LYMPH % 23.9 % (22.0-35.0); MEAN CELL VOLUME 99.3 fl (80.0-105.0); MEAN CORPUSCULAR HGB CONC 33.2 g/dl (31.0-37.0); MONO # 0.8 (0.1-0.6); MONO % 13.9 % (1.0-6.0); RED CELL DISTRIBUTION WIDTH 17.6 % (11.5-14.5); WHITE BLOOD COUNT 5.6 10^3/ul (4.5-11.0)
[2018-08-16 08:28] LABS: ALB/GLOB RATIO 0.7 (1.1-1.8)
--- NOTE | 2018-08-16 10:01 | CP.PCM.PN ---
<Jenni Maki - Last Filed: 08/16/18 12:44> Subjective - Date & Time of Evaluation Date of Evaluation: 08/16/18 Time of Evaluation: 08:50 - Subjective Subjective: Jenni Maki DO, PGY-2: Nephrology Progress Note for Dr. De Oliveira Patient was seen and examined at bedside. He reports improvement in his breathing. He denies nausea or vomiting. He reports tolerating his diet. Objective - Vital Signs/Intake and Output Vital Signs (last 24 hours): Temp Pulse Resp BP Pulse Ox 98.2 F 67 18 109/66 98 08/16/18 06:00 08/16/18 06:00 08/16/18 06:00 08/16/18 06:00 08/16/18 06:00 Intake and Output: 08/16/18 08/16/18 06:59 18:59 Intake Total 440 Output Total 700 Balance -260 - Medications Medications: Current Medications Albuterol/Ipratropium (Duoneb 3 Mg/0.5 Mg (3 Ml) Ud) 3 ml IH [id number] [facility] Last Admin: 08/16/18 07:25 Dose: 3 ml Alprazolam (Xanax) 0.5 mg PO HS [facility]; Protocol Stop: 08/18/18 22:01 Last Admin: 08/15/18 22:02 Dose: 0.5 mg Bisacodyl (Dulcolax) 10 mg RC ONCE ONE Last Admin: 08/15/18 14:13 Dose: Not Given Famotidine (Pepcid) 20 mg PO HS [facility] Last Admin: 08/15/18 22:02 Dose: 20 mg Lactulose (Enulose) 20 gm PO DAILY [facility] Last Admin: 08/14/18 09:51 Dose: 20 gm Midodrine (Proamatine) 10 mg PO TID [facility] Last Admin: 08/15/18 17:57 Dose: 10 mg Oxycodone HCl (Oxycodone Immediate Release Tab) 5 mg PO Q6H PRN PRN Reason: Pain, moderate (4-7) Last Admin: 08/14/18 17:33 Dose: 5 mg Propranolol HCl (Inderal) 10 mg PO BID [facility] Last Admin: 08/15/18 19:55 Dose: 10 mg Rifaximin (Xifaxan) 550 mg PO BID [facility]; Protocol Last Admin: 08/15/18 17:56 Dose: 550 mg Torsemide (Demadex) 10 mg PO DAILY [facility] - Labs Labs: 08/16/18 08:00 08/16/18 08:00 PT 16.1 SECONDS (9.4-12.5) H 08/11/18 02:05 INR 1.40 08/11/18 02:05 - Constitutional Appears: Cachectic, Chronically Ill - Head Exam Head Exam: ATRAUMATIC, NORMOCEPHALIC Additional comments: temporal wasting noted - Eye Exam Eye Exam: EOMI, Normal appearance - ENT Exam ENT Exam: Mucous Membranes Dry - Neck Exam Neck Exam: Normal Inspection - Respiratory Exam Respiratory Exam: NORMAL BREATHING PATTERN. absent: Accessory Muscle Use - Cardiovascular Exam Cardiovascular Exam: RRR, +S1, +S2 - GI/Abdominal Exam GI & Abdominal Exam: absent: Guarding, Rebound - Extremities Exam Extremities Exam: Normal Inspection. absent: Calf Tenderness - Neurological Exam Neurological Exam: Awake, Oriented x3 - Psychiatric Exam Psychiatric exam: Normal Affect, Normal Mood - Skin Skin Exam: Dry, Intact, Normal Color, Warm Assessment and Plan (1) KEYUR (acute kidney injury) Assessment & Plan: -KEYUR on CKD; pre-renal etiology, improved with volume expansion; discussed with primary team, will need to tolerate a certain level of renal insufficiency while keeping patient on diuretics to prevent rapid accumulation of ascites buildup Today, it appears patient may go for pleurx catheter/weekly ascites drainage -Continue with torsemide 10 mg daily Status: Acute (2) Ascites Status: Acute (3) CKD (chronic kidney disease) Assessment & Plan: PTH and Vitamin D normal Avoid nephrotoxins Status: Chronic - Assessment and Plan (Free Text) Plan: Case was reviewed and discussed with attending physician, Dr. De Oliveira <Wood De Oliveira - Last Filed: 08/17/18 00:45> Objective - Vital Signs/Intake and Output Vital Signs (last 24 hours): Temp Pulse Resp BP Pulse Ox 97.3 F L 76 18 146/87 100 08/16/18 22:00 08/16/18 22:00 08/16/18 22:00 08/16/18 22:00 08/16/18 22:00 Intake and Output: 08/16/18 08/17/18 18:59 06:59 Intake Total 120 Output Total 200 200 Balance -200 -80 - Medications Medications: Current Medications Albumin Human (Albumin Human 25% (12.5 Gm/50 Ml)) 12.5 gm IV Q4H [facility] Stop: 08/17/18 04:46 Albuterol/Ipratropium (Duoneb 3 Mg/0.5 Mg (3 Ml) Ud) 3 ml IH [id number] [facility] Last Admin: 08/16/18 20:25 Dose: 3 ml Alprazolam (Xanax) 0.5 mg PO HS [facility]; Protocol Stop: 08/18/18 22:01 Last Admin: 08/16/18 22:53 Dose: 0.5 mg Bisacodyl (Dulcolax) 10 mg RC ONCE ONE Last Admin: 08/15/18 14:13 Dose: Not Given Famotidine (Pepcid) 20 mg PO HS [facility] Last Admin: 08/16/18 22:53 Dose: 20 mg Lactulose (Enulose) 20 gm PO DAILY [facility] Last Admin: 08/16/18 10:10 Dose: 20 gm Midodrine (Proamatine) 10 mg PO TID [facility] Last Admin: 08/16/18 17:15 Dose: Not Given Oxycodone HCl (Oxycodone Immediate Release Tab) 5 mg PO Q6H PRN PRN Reason: Pain, moderate (4-7) Last Admin: 08/16/18 17:59 Dose: 5 mg Propranolol HCl (Inderal) 10 mg PO BID [facility] Last Admin: 08/16/18 17:15 Dose: Not Given Rifaximin (Xifaxan) 550 mg PO BID [facility]; Protocol Last Admin: 08/16/18 17:16 Dose: Not Given Torsemide (Demadex) 10 mg PO DAILY [facility] Last Admin: 08/16/18 10:19 Dose: Not Given - Labs Labs: 08/16/18 08:00 08/16/18 08:00 PT 16.1 SECONDS (9.4-12.5) H 08/11/18 02:05 INR 1.40 08/11/18 02:05 Assessment and Plan (1) KEYUR (acute kidney injury) Status: Acute (2) Ascites Status: Acute (3) CKD (chronic kidney disease) Status: Chronic Attending/Attestation - Attestation I have personally seen and examined this patient.: Yes I have fully participated in the care of the patient.: Yes I have reviewed all pertinent clinical information, including history, physical exam and plan: Yes Notes (Text): Patient seen and examined; I agree with the resident's note as above with the following additions/edits: Patient with cirrhosis of unclear etiology, CKD, admitted with lethargy, sob; Underwent tunneled peritoneal catheter placement by IR for weekly ascites fluid drainage; also had 5L drained today, in addition to the 11L he had drained on presentation; may still need small dose of diuretics to prevent rapid ascites buildup; if BP tolerates, can keep on torsemide 10 mg daily; Otherwise, as mentioned previously, has underlying CKD and will need to tolerate increased renal insufficiency with diuretic use; Awaiting PTH level; Mild anemia from chronic disease/CKD; will benefit from small dose of EPO;
[2018-08-16] MEDS ORDERED: Lidocaine PF 2% (5 ml) Inj (For Cardiac Arrhy) ONE (13:21)
[2018-08-16] MEDS ORDERED: Midazolam 2 MG/2 ML VIAL ONE ×2 (15:34→15:58)
[2018-08-16] MEDS ORDERED: Sodium Chloride 0.45% 1,000 ML IV SCH (16:30)
[2018-08-16] MEDS: oxyCODONE 5 mg Immediate Release Tab PO PRN (17:59)
--- NOTE | 2018-08-16 18:02 | VASCULAR ---
PROCEDURE: Ultrasound fluoroscopically placed tunneled peritoneal catheter HISTORY: Cirrhosis. Recurrent ascites necessitating frequent paracentesis. Needs tunneled catheter PHYSICIAN(S): Franko Crespo MD. TECHNIQUE: The relative risks and indications for the procedure were explained to the patient and informed consent obtained. The patient was placed in a slight left decubitus position sonography of the abdomen performed. This revealed a moderate to large amount of non loculated ascites. Location for tunneled catheter placement was selected in the right lower quadrant. Under ultrasound guidance the peritoneal cavity was punctured. A 0.035 guidewire was advanced posteriorly and superiorly. Next a peel-away sheath was placed. Over the guidewire, a 15.5 [place] Aspira catheter was advanced posteriorly and superiorly. The catheter was tunneled. Fluid was removed through the catheter. 5000 cc of clear straw-colored fluid was drained. The patient tolerated the procedure well. IMPRESSION: 1. Ultrasound fluoroscopically placed tunneled peritoneal catheter. 2. 5000 cc of clear straw-colored fluid was aspirated. The catheter should be drained twice a week. Up to 1200 cc should be removed with each drainage. A visiting nurse should be arranged
[2018-08-17] MEDS: Albumin Human 25% (12.5 gm/50 ml) IV SCH ×2 (02:00→04:00)
[2018-08-17] MEDS: Albuterol-Ipratrop 3 mg / 0.5 (3 ml) UD IH SCH ×4 (02:45→19:30)
[2018-08-17] MEDS: oxyCODONE 5 mg Immediate Release Tab PO PRN ×2 (03:59→15:02)
[2018-08-17] MEDS ORDERED: Magnesium Hydroxide Susp 30 ml UD PO ONE (07:37)
[2018-08-17] MEDS ORDERED: Bisacodyl 5mg EC Tab PO ONE (07:37)
[2018-08-17 09:38] LABS: BASO # 0.05 K/mm3 (0.0-2.0); BASO % 0.8 % (0.0-3.0); EOS # 0.2 (0.0-0.7); EOS % 3.1 % (1.5-5.0); GRAN # 3.85 (1.4-6.5); GRAN % 65.2 % (50.0-68.0); HEMOGLOBIN 11.2 g/dL (14.0-18.0); LYMPH % 17.5 % (22.0-35.0); MEAN CORPUSCULAR HEMOGLOBIN 33.2 pg (25.0-35.0); MEAN CORPUSCULAR HGB CONC 33.2 g/dl (31.0-37.0); MONO # 0.8 (0.1-0.6); MONO % 13.4 % (1.0-6.0); RBC 3.37 10^6/uL (3.5-6.1); RED CELL DISTRIBUTION WIDTH 17.4 % (11.5-14.5); WHITE BLOOD COUNT 5.9 10^3/ul (4.5-11.0)
[2018-08-17 11:09] LABS: ALB/GLOB RATIO 0.8 (1.1-1.8); ALBUMIN 3.4 g/dL (3.0-4.8)
--- NOTE | 2018-08-17 13:29 | CP.PCM.PN ---
<Ezequiel Alcocer - Last Filed: 08/17/18 14:05> Subjective - Date & Time of Evaluation Date of Evaluation: 08/17/18 Time of Evaluation: 06:00 - Subjective Subjective: Ezequiel Alcocer DO PGY-1, Internal Medicine Resident. Hospitalist Progress Note Patient seen and examined at bedside. Patient is resting in bed, awake and oriented. No acute events overnight. His abdominal discomfort is getting worse as he refused laxatives prescribed for the past 2 days. Patient did not have bowel movement for 4 days now. Patient denied chest pain, palpitation, fever, chills or change in bowel movement. Objective - Vital Signs/Intake and Output Vital Signs (last 24 hours): Temp Pulse Resp BP Pulse Ox 98.2 F 79 18 145/79 96 08/17/18 06:00 08/17/18 06:00 08/17/18 06:00 08/17/18 06:00 08/17/18 06:00 Intake and Output: 08/17/18 08/17/18 06:59 18:59 Intake Total 240 Output Total 500 Balance -260 - Medications Medications: Current Medications Albuterol/Ipratropium (Duoneb 3 Mg/0.5 Mg (3 Ml) Ud) 3 ml IH [id number] [facility] Last Admin: 08/17/18 13:03 Dose: 3 ml Alprazolam (Xanax) 0.5 mg PO [facility]; Protocol Stop: 08/18/18 22:01 Last Admin: 08/16/18 22:53 Dose: 0.5 mg Bisacodyl (Dulcolax) 10 mg RC ONCE ONE Last Admin: 08/15/18 14:13 Dose: Not Given Famotidine (Pepcid) 20 mg PO [facility] Last Admin: 08/16/18 22:53 Dose: 20 mg Lactulose (Enulose) 20 gm PO DAILY [facility] Last Admin: 08/17/18 10:51 Dose: 20 gm Midodrine (Proamatine) 10 mg PO TID [facility] Last Admin: 08/17/18 10:52 Dose: 10 mg Oxycodone HCl (Oxycodone Immediate Release Tab) 5 mg PO Q6H PRN PRN Reason: Pain, moderate (4-7) Last Admin: 08/17/18 03:59 Dose: 5 mg Propranolol HCl (Inderal) 10 mg PO BID [facility] Last Admin: 08/16/18 17:15 Dose: Not Given Rifaximin (Xifaxan) 550 mg PO BID [facility]; Protocol Last Admin: 08/17/18 10:52 Dose: 550 mg Torsemide (Demadex) 10 mg PO DAILY [facility] Last Admin: 08/17/18 10:55 Dose: 10 mg - Labs Labs: 08/17/18 09:00 08/17/18 10:40 PT 16.1 SECONDS (9.4-12.5) H 08/11/18 02:05 INR 1.40 08/11/18 02:05 - Additional Findings Additional findings: - Constitutional Appears: Cachectic, Chronically Ill - Head Exam Head Exam: ATRAUMATIC, NORMOCEPHALIC - Eye Exam Eye Exam: EOMI, Normal appearance, PERRL Pupil Exam: NORMAL ACCOMODATION, PERRL - ENT Exam ENT Exam: Mucous Membranes Moist, Normal Exam - Neck Exam Neck Exam: Full ROM, Normal Inspection. absent: Lymphadenopathy - Respiratory Exam Respiratory Exam: Clear to Ausculation Bilateral, NORMAL BREATHING PATTERN - Cardiovascular Exam Cardiovascular Exam: REGULAR RHYTHM, +S1, +S2 - GI/Abdominal Exam GI & Abdominal Exam: Distended, Tenderness (mild diffuse tenderness to palpate. improving), Organomegaly, LLQ palpable masses felt on palpation. indwelling cath in place. no erythema, tenderness around cath site, no signs of infection - Extremities Exam Extremities Exam: Full ROM, Normal Capillary Refill, Normal Inspection. absent: Joint Swelling, Pedal Edema Additional comments: b/l muscle atrophy, decreased muscle mass in UL and LL - Back Exam Back Exam: NORMAL INSPECTION - Neurological Exam Neurological Exam: Alert, Awake, CN II-XII Intact, Oriented x3 Additional comments: generalized muscle weakness use walker to ambulate - Psychiatric Exam Psychiatric exam: Normal Affect, Normal Mood - Skin Skin Exam: Dry, Intact, Normal Color, Warm Assessment and Plan - Assessment and Plan (Free Text) Assessment: Patient is a 63 y/o M with PMHx of Liver Cirrhosis with chronic ascites, hepatic encephalopathy, esophageal varices, CKD stage III, HTN, CHF-pEF, and Afib who presented to the ED with SOB and abdominal distension and pressure. Patient s/p paracentesis with 11.2 L of fluid, SOB improved. On diuretics. Patient went for pleurx catheter placement yesterday for future papacentesis. Patient still constipated Plan: SOB and Abdominal Distension 2/2 Ascites from Decompensated Liver Cirrhosis - improving - Abdominal US (08/12): patent portal vein with hepatopetal flow. No thrombus/obs truction. Moderate ascites. - As per GI, patient may make appointment with his primary GI (Dr. Naranjo) for outpatient follow up. - c/w Albumin 25% 12.5g IV q6H, lactulose, xifaxin - s/p large volume paracentesis (08/12): 11.2 L fluid removed by IR. - CXR:moderate right pleural effusion - c/w duonebs - History of frequent paracentesis due to chronic cirrhosis. patient f/u in [facility] - c/w oxycodone 5 mg q6 prn for pain control - continue torsemide 10 po daily - d/c telemetry - Patient is going for pleurx abdominal catheter today Constipation - on lactulose 20 mg daily - patient does not want to take more lactulose because of excessive diarrhea - patient was prescribed ducolax yesterday but refused to take - Patient agreed to take one dose mag-hydroxide today KEYUR on CKD Stage III - Creatinine trending down - avoid nephrotoxic medications - As per Nephro consult: consider indwelling abdominal paracentesis catheter. continue torsemide - PTH and Ca are normal Hx of Hepatic encephalopathy - AAOx3 on exam - c/w rifaxamin and lactulose - ammonia level was normal Anemia -likely due to chronic disease/CKD -H/H stable -continue monitoring -may benefit from EPO as per nephro note Deconditioning -As per PT eval: TCU or NONA as an alternative -Palliative care consulted: continue pain meds and f/u in [facility] for ascites and liver cirrhosis Hx of HTN - normotensive s/p paracentesis - monitor BP Anxiety -continue xanax at bedtime PPX/Diet - GI ppx: pepcid - DVT ppx: SCDs - GI/hepatic diet Case reviewed and plan discussed with Attending Physician, Dr. Dixon <Kandi Dixon R - Last Filed: 08/18/18 15:56> Objective - Vital Signs/Intake and Output Vital Signs (last 24 hours): Temp Pulse Resp BP Pulse Ox 98.2 F 77 18 141/85 99 08/18/18 14:00 08/18/18 14:00 08/18/18 14:00 08/18/18 14:00 08/18/18 14:00 Intake and Output: 08/18/18 08/18/18 06:59 18:59 Intake Total 240 Output Total 200 Balance 40 - Medications Medications: Current Medications Albuterol/Ipratropium (Duoneb 3 Mg/0.5 Mg (3 Ml) Ud) 3 ml IH [id number] [facility] Last Admin: 08/18/18 13:28 Dose: 3 ml Alprazolam (Xanax) 0.5 mg PO HS [facility]; Protocol Stop: 08/18/18 22:01 Last Admin: 08/17/18 22:38 Dose: 0.5 mg Bisacodyl (Dulcolax) 10 mg RC ONCE ONE Last Admin: 08/15/18 14:13 Dose: Not Given Famotidine (Pepcid) 20 mg PO [facility] Last Admin: 08/17/18 21:32 Dose: 20 mg Lactulose (Enulose) 20 gm PO DAILY [facility] Last Admin: 08/18/18 09:10 Dose: 20 gm Midodrine (Proamatine) 10 mg PO TID [facility] Last Admin: 08/18/18 13:10 Dose: 10 mg Oxycodone HCl (Oxycodone Immediate Release Tab) 5 mg PO Q6H PRN PRN Reason: Pain, moderate (4-7) Last Admin: 08/18/18 00:36 Dose: 5 mg Propranolol HCl (Inderal) 10 mg PO BID [facility] Last Admin: 08/18/18 09:11 Dose: 10 mg Rifaximin (Xifaxan) 550 mg PO BID [facility]; Protocol Last Admin: 08/18/18 09:11 Dose: 550 mg Torsemide (Demadex) 10 mg PO DAILY [facility] Last Admin: 08/17/18 10:55 Dose: 10 mg - Labs Labs: 08/18/18 06:20 08/18/18 06:20 PT 16.1 SECONDS (9.4-12.5) H 08/11/18 02:05 INR 1.40 08/11/18 02:05 Attending/Attestation - Attestation I have personally seen and examined this patient.: Yes I have fully participated in the care of the patient.: Yes I have reviewed all pertinent clinical information, including history, physical exam and plan: Yes Notes (Text): Patient seen and examined by me at 10:50 AM with resident 08/17/18. Case including HPI, physical exam, and assessment and plan discussed with resident. Agree with above with following additions/corrections. Patient is 63-year-old male with past medical history significant for nonalcoholic liver cirrhosis, hepatic encephalopathy, chronic ascites, esophageal varices, chronic kidney disease, diastolic CHF, and paroxysmal atrial fibrillation that presented to the emergency room with shortness of breath. Patient states that he is feeling ok. Patient states that he still has abdominal pain that is unchanged. He has not had a bowel movement. Patient has been refusing all medications for constipation. This was discussed at length with patient. 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 He denies any shortness of breath. No nausea or vomiting. No headaches or dizziness. No chest pain or palpitations. No dysuria. Physical exam: Gen: Awake and alert lying in bed in no acute distress HEENT: Normocephalic, atraumatic. Extraocular muscles intact, pupils equal reactive. No scleral icterus. Oropharynx is pink and moist. Neck is supple. Cardiovascular: Normal rhythm. Normal S1, S2. No murmurs, rubs, or gallops appreciated Pulmonary: Normal respiratory effort. No rhonchi, rales, or wheezing appreciated. Gastrointestinal: Soft, positive distention. Positive generalized tenderness.. Positive bowel sounds all 4 quadrants, no guarding. Positive pleurx cath right lower abdominal area. Dressing clean, dry, and intact. Musculoskeletal: Moves all extremities. No calf tenderness. No edema appreciated. Central nervous system: AAO x 3. CN 2-12 grossly intact Dermatologic: Skin warm and dry Assessment and plan: Patient is 63-year-old male with past medical history significant for nonalcoholic liver cirrhosis, hepatic encephalopathy, chronic ascites, esophageal varices, chronic kidney disease, diastolic CHF, and paroxysmal atrial fibrillation that presented to the emergency room with shortness of breath. 1. Dyspnea. Likely secondary to ascites/pleural effusion. Dyspnea resolved. S/P paracentesis with 11,200ml removed. Continue to monitor. Chest xray per radiologist shows moderate right pleural effusion. Continue torsemide. 2. Ascites secondary to non alcoholic liver cirrhosis. S/P paracentesis with 11,200ml removed. S/P albumin. S/P pleurx cath placement 08/16/18. Patient for drainage tomorrow. Abdominal Doppler ultrasound per radiologist showed patent portal vein with hepatopetal flow. Continue with lactulose and xifaxin. Continue propranolol. GI recommendations appreciated. Continue torsemide. 3. Abdominal pain. Secondary to ascites and liver cirrhosis and constipation. Pleurx cath placed. Continue with pain management with oxycodone as needed. 4. Constipation. Patient given milk of magnesium and dulcolax. Will monitor for bowel movement. 5. Moderate right pleural effusion. Continue torsemide. No shortness of breath. Pleurx cath placed 6. KEYUR on CKD. Nephrology following, recommendations appreciated. Creatinine stable. Continue to monitor 7. Chronic Anemia. H&H stable. Patient asymptomatic. Continue to mointor CBC. 8. Thrombocytopenia. Likely secondary to liver cirrhosis. Continue to monitor. 9. History of hepatic encephalopathy. No encephalopathy currently. Continue lactulose and Xifaxan. 10. Anxiety. Continue Xanax at bedtime. 11. GI/DVT prophylaxis. Pepcid and SCDs. Case was discussed in detail with the patient regarding current diagnosis and treatment plan. All questions were answered.
[2018-08-18] MEDS: oxyCODONE 5 mg Immediate Release Tab PO PRN ×3 (00:36→23:51)
[2018-08-18] MEDS: Albuterol-Ipratrop 3 mg / 0.5 (3 ml) UD IH SCH ×4 (01:44→19:39)
--- NOTE | 2018-08-18 06:27 | CP.PCM.PN ---
<Ezequiel Alcocer - Last Filed: 08/18/18 16:12> Subjective - Date & Time of Evaluation Date of Evaluation: 08/18/18 Time of Evaluation: 05:50 - Subjective Subjective: Ezequiel Alcocer DO PGY-1, Internal Medicine Resident. Hospitalist Progress Note Patient seen and examined at bedside. Patient is resting in bed, awake and oriented. No acute events overnight. His abdominal discomfort is getting worse. Patient did not have bowel movement for 5 days now, but was refusing laxatives for the past 4 days. Patient denied chest pain, palpitation, fever, chills or change in bowel movement. Objective - Vital Signs/Intake and Output Vital Signs (last 24 hours): Temp Pulse Resp BP Pulse Ox 98.3 F 85 20 134/81 97 08/17/18 21:38 08/17/18 21:38 08/17/18 21:38 08/17/18 21:38 08/17/18 21:38 Intake and Output: 08/17/18 08/18/18 18:59 06:59 Intake Total 480 240 Output Total 200 Balance 480 40 - Medications Medications: Current Medications Albuterol/Ipratropium (Duoneb 3 Mg/0.5 Mg (3 Ml) Ud) 3 ml IH [id number] [facility] Last Admin: 08/18/18 01:44 Dose: Not Given Alprazolam (Xanax) 0.5 mg PO [facility]; Protocol Stop: 08/18/18 22:01 Last Admin: 08/17/18 22:38 Dose: 0.5 mg Bisacodyl (Dulcolax) 10 mg RC ONCE ONE Last Admin: 08/15/18 14:13 Dose: Not Given Famotidine (Pepcid) 20 mg PO HS [facility] Last Admin: 08/17/18 21:32 Dose: 20 mg Lactulose (Enulose) 20 gm PO DAILY [facility] Last Admin: 08/17/18 10:51 Dose: 20 gm Midodrine (Proamatine) 10 mg PO TID [facility] Last Admin: 08/17/18 17:46 Dose: 10 mg Oxycodone HCl (Oxycodone Immediate Release Tab) 5 mg PO Q6H PRN PRN Reason: Pain, moderate (4-7) Last Admin: 08/18/18 00:36 Dose: 5 mg Propranolol HCl (Inderal) 10 mg PO BID [facility] Last Admin: 08/17/18 17:46 Dose: 10 mg Rifaximin (Xifaxan) 550 mg PO BID [facility]; Protocol Last Admin: 08/17/18 17:46 Dose: 550 mg Torsemide (Demadex) 10 mg PO DAILY [facility] Last Admin: 08/17/18 10:55 Dose: 10 mg - Labs Labs: 08/17/18 09:00 08/17/18 10:40 PT 16.1 SECONDS (9.4-12.5) H 08/11/18 02:05 INR 1.40 08/11/18 02:05 - Additional Findings Additional findings: - Constitutional Appears: Cachectic, Chronically Ill - Head Exam Head Exam: ATRAUMATIC, NORMOCEPHALIC - Eye Exam Eye Exam: EOMI, Normal appearance, PERRL Pupil Exam: NORMAL ACCOMODATION, PERRL - ENT Exam ENT Exam: Mucous Membranes Moist, Normal Exam - Neck Exam Neck Exam: Full ROM, Normal Inspection. absent: Lymphadenopathy - Respiratory Exam Respiratory Exam: Clear to Ausculation Bilateral, NORMAL BREATHING PATTERN - Cardiovascular Exam Cardiovascular Exam: REGULAR RHYTHM, +S1, +S2 - GI/Abdominal Exam GI & Abdominal Exam: Distended, Tenderness (mild diffuse tenderness to palpate. improving), Organomegaly, LLQ palpable masses felt on palpation. indwelling cath in place. no erythema, tenderness around cath site, no signs of infection - Extremities Exam Extremities Exam: Full ROM, Normal Capillary Refill, Normal Inspection. absent: Joint Swelling, Pedal Edema Additional comments: b/l muscle atrophy, decreased muscle mass in UL and LL - Back Exam Back Exam: NORMAL INSPECTION - Neurological Exam Neurological Exam: Alert, Awake, CN II-XII Intact, Oriented x3 Additional comments: generalized muscle weakness use walker to ambulate - Psychiatric Exam Psychiatric exam: Normal Affect, Normal Mood - Skin Skin Exam: Dry, Intact, Normal Color, Warm Assessment and Plan - Assessment and Plan (Free Text) Assessment: Patient is a 63 y/o M with PMHx of Liver Cirrhosis with chronic ascites, hepatic encephalopathy, esophageal varices, CKD stage III, HTN, CHF-pEF, and Afib who presented to the ED with SOB and abdominal distension and pressure. Patient s/p paracentesis with 11.2 L of fluid, SOB improved. On diuretics. Patient went for pleurx catheter placement yesterday for future papacentesis. Patient still constipated Plan: SOB and Abdominal Distension 2/2 Ascites from Decompensated Liver Cirrhosis - improving - Abdominal US (08/12): patent portal vein with hepatopetal flow. No thrombus/obstruction. Moderate ascites. - As per GI, patient may make appointment with his primary GI (Dr. Naranjo) for outpatient follow up. - c/w Albumin 25% 12.5g IV q6H, lactulose, xifaxin - s/p large volume paracentesis (08/12): 11.2 L fluid removed by IR. - CXR:moderate right pleural effusion - c/w duonebs - History of frequent paracentesis due to chronic cirrhosis. patient f/u in [facility] - c/w oxycodone 5 mg q6 prn for pain control - hold torsemide, can restart once having adequate PO intake. as per nephrology - d/c telemetry - s/p pleurx abdominal catheter Constipation - lactulose increased to 20 mg BID - patient does not want to take more lactulose because of excessive diarrhea - patient was prescribed ducolax but refused to take - Patient agreed to took one dose mag-hydroxide yesterday with no bowel movement - given one dose of Mg-citrate, will wait. if no BM will do abd XR KEYUR on CKD Stage III - Creatinine fluctuating - avoid nephrotoxic medications -torsemide held for poor oral intake - PTH and Ca are normal Hx of Hepatic encephalopathy - AAOx3 on exam - c/w rifaxamin and lactulose - ammonia level was normal Anemia -likely due to chronic disease/CKD -H/H stable -continue monitoring -may benefit from EPO as per nephro note Deconditioning -As per PT eval: TCU or NONA as an alternative -Palliative care consulted: continue pain meds and f/u in [facility] for ascites and liver cirrhosis Hx of HTN - normotensive s/p paracentesis - monitor BP Anxiety -continue xanax at bedtime PPX/Diet - GI ppx: pepcid - DVT ppx: SCDs - GI/hepatic diet Case reviewed and plan discussed with Attending Physician, Dr. Dixon hold torsemide, can restart once having adequate PO intake <Kandi Dixon R - Last Filed: 08/19/18 15:20> Objective - Vital Signs/Intake and Output Vital Signs (last 24 hours): Temp Pulse Resp BP Pulse Ox 97.7 F 54 L 20 112/80 96 08/19/18 06:00 08/19/18 06:00 08/19/18 06:00 08/19/18 09:50 08/19/18 06:00 Intake and Output: 08/19/18 08/19/18 06:59 18:59 Intake Total 360 Output Total 50 Balance 310 - Medications Medications: Current Medications Albuterol/Ipratropium (Duoneb 3 Mg/0.5 Mg (3 Ml) Ud) 3 ml IH [id number] [facility] Last Admin: 08/19/18 13:19 Dose: 3 ml Bisacodyl (Dulcolax) 10 mg RC ONCE ONE Last Admin: 08/15/18 14:13 Dose: Not Given Famotidine (Pepcid) 20 mg IVP DAILY [facility] Sodium Chloride (Sodium Chloride 0.9%) 1,000 mls @ 60 mls/hr IV .[id number] [facility] Stop: 08/19/18 16:24 Sodium Chloride (Sodium Chloride 0.9%) 1,000 mls @ 50 mls/hr IV .Q20H [facility] Lactulose (Enulose) 20 gm PO BID [facility] Last Admin: 08/19/18 09:49 Dose: 20 gm Midodrine (Proamatine) 10 mg PO TID [facility] Last Admin: 08/19/18 09:50 Dose: 10 mg Oxycodone HCl (Oxycodone Immediate Release Tab) 5 mg PO Q6H PRN PRN Reason: Pain, moderate (4-7) Last Admin: 08/18/18 23:51 Dose: 5 mg Propranolol HCl (Inderal) 10 mg PO BID [facility] Last Admin: 08/19/18 09:50 Dose: 10 mg Rifaximin (Xifaxan) 550 mg PO BID [facility]; Protocol Last Admin: 08/19/18 09:50 Dose: 550 mg Torsemide (Demadex) 10 mg PO DAILY [facility] Last Admin: 08/17/18 10:55 Dose: 10 mg - Labs Labs: 08/19/18 07:00 08/19/18 07:00 PT 16.1 SECONDS (9.4-12.5) H 08/11/18 02:05 INR 1.40 08/11/18 02:05 Attending/Attestation - Attestation I have personally seen and examined this patient.: Yes I have fully participated in the care of the patient.: Yes I have reviewed all pertinent clinical information, including history, physical exam and plan: Yes Notes (Text): Patient seen and examined by me at 1:10 PM with resident 08/18/18. Case including HPI, physical exam, and assessment and plan discussed with resident. Agree with above with following additions/corrections. Patient is 63-year-old male with past medical history significant for nonal coholic liver cirrhosis, hepatic encephalopathy, chronic ascites, esophageal varices, chronic kidney disease, diastolic CHF, and paroxysmal atrial fibrillation that presented to the emergency room with shortness of breath. Patient states that he is feeling about the same. Still with abdominal pain and no bowel movements. Patient denies any shortness of breath. No nausea or vomiting. No headaches or dizziness. No chest pain or palpitations. No dysuria. Physical exam: Gen: Awake and alert lying in bed in no acute distress HEENT: Normocephalic, atraumatic. Extraocular muscles intact, pupils equal reactive. No scleral icterus. Oropharynx is pink and moist. Neck is supple. Cardiovascular: Normal rhythm. Normal S1, S2. No murmurs, rubs, or gallops appreciated Pulmonary: Normal respiratory effort. No rhonchi, rales, or wheezing appreciated. Gastrointestinal: Soft, positive distention. Positive generalized tenderness. Positive bowel sounds all 4 quadrants, no guarding. Positive pleurx cath right lower abdominal area. Dressing clean, dry, and intact. Musculoskeletal: Moves all extremities. No calf tenderness. No edema appreciated. Central nervous system: AAO x 3. CN 2-12 grossly intact Dermatologic: Skin warm and dry Assessment and plan: Patient is 63-year-old male with past medical history significant for nonalcoholic liver cirrhosis, hepatic encephalopathy, chronic ascites, esophageal varices, chronic kidney disease, diastolic CHF, and paroxysmal atrial fibrillation that presented to the emergency room with shortness of breath. 1. Constipation. Patient given magnesium citrate. Will monitor for bowel movement. If no bowel movement, will check abdominal xray 2. Dyspnea. Likely secondary to ascites/pleural effusion. Dyspnea resolved. Continue torsemide. S/P paracentesis with 11,200ml removed. S/P pleurx cath placement. Continue to monitor. Chest xray per radiologist showed moderate right pleural effusion. 3. Ascites secondary to non alcoholic liver cirrhosis. Continue torsemide. Continue with lactulose and xifaxin. Continue propranolol. S/P paracentesis with 11,200ml removed. S/P albumin. S/P pleurx cath placement 08/16/18. Abdominal Doppler ultrasound per radiologist showed patent portal vein with hepatopetal flow. GI recommendations appreciated. 4. Abdominal pain. Secondary to ascites and liver cirrhosis and constipation. Pleurx cath placed. Continue with pain management with oxycodone as needed. 5. Moderate right pleural effusion. Continue torsemide. No shortness of breath. Pleurx cath in place. 6. KEYUR on CKD. Nephrology following, recommendations appreciated. Creatinine stable. Continue to monitor 7. Chronic Anemia. H&H stable. Patient asymptomatic. Continue to mointor CBC. 8. Thrombocytopenia. Likely secondary to liver cirrhosis. Continue to monitor. 9. History of hepatic encephalopathy. No encephalopathy currently. Continue lactulose and Xifaxan. 10. Anxiety. Continue Xanax at bedtime. 11. GI/DVT prophylaxis. Pepcid and SCDs. Case was discussed in detail with the patient regarding current diagnosis and treatment plan. All questions were answered.
[2018-08-18 07:08] LABS: BASO # 0.05 K/mm3 (0.0-2.0); BASO % 0.6 % (0.0-3.0); EOS # 0.1 (0.0-0.7); EOS % 0.6 % (1.5-5.0); GRAN # 5.21 (1.4-6.5); GRAN % 67.3 % (50.0-68.0); LYMPH # 1.3 (1.2-3.4); LYMPH % 17.1 % (22.0-35.0); MEAN CELL VOLUME 98.5 fl (80.0-105.0); MEAN CORPUSCULAR HEMOGLOBIN 32.7 pg (25.0-35.0); MEAN CORPUSCULAR HGB CONC 33.2 g/dl (31.0-37.0); MEAN PLATELET VOLUME 9.3 fl (7.0-11.0); MONO # 1.1 (0.1-0.6); MONO % 14.4 % (1.0-6.0); RBC 3.36 10^6/uL (3.5-6.1); WHITE BLOOD COUNT 7.8 10^3/ul (4.5-11.0)
[2018-08-18 07:14] LABS: ALB/GLOB RATIO 0.7 (1.1-1.8); ALBUMIN 3.3 g/dL (3.0-4.8); CALCIUM 9.4 mg/dL (8.4-10.5)
--- NOTE | 2018-08-18 07:20 | CP.PCM.PN ---
Subjective - Date & Time of Evaluation Date of Evaluation: 08/17/18 Time of Evaluation: 11:30 - Subjective Subjective: Patient lethargic, not eating much; Objective - Vital Signs/Intake and Output Vital Signs (last 24 hours): Temp Pulse Resp BP Pulse Ox 98.3 F 85 20 134/81 97 08/17/18 21:38 08/17/18 21:38 08/17/18 21:38 08/17/18 21:38 08/17/18 21:38 Intake and Output: 08/18/18 08/18/18 06:59 18:59 Intake Total 240 Output Total 200 Balance 40 - Medications Medications: Current Medications Albuterol/Ipratropium (Duoneb 3 Mg/0.5 Mg (3 Ml) Ud) 3 ml IH [id number] [facility] Last Admin: 08/18/18 01:44 Dose: Not Given Alprazolam (Xanax) 0.5 mg PO HS [facility]; Protocol Stop: 08/18/18 22:01 Last Admin: 08/17/18 22:38 Dose: 0.5 mg Bisacodyl (Dulcolax) 10 mg RC ONCE ONE Last Admin: 08/15/18 14:13 Dose: Not Given Famotidine (Pepcid) 20 mg PO HS [facility] Last Admin: 08/17/18 21:32 Dose: 20 mg Lactulose (Enulose) 20 gm PO DAILY [facility] Last Admin: 08/17/18 10:51 Dose: 20 gm Midodrine (Proamatine) 10 mg PO TID [facility] Last Admin: 08/17/18 17:46 Dose: 10 mg Oxycodone HCl (Oxycodone Immediate Release Tab) 5 mg PO Q6H PRN PRN Reason: Pain, moderate (4-7) Last Admin: 08/18/18 00:36 Dose: 5 mg Propranolol HCl (Inderal) 10 mg PO BID [facility] Last Admin: 08/17/18 17:46 Dose: 10 mg Rifaximin (Xifaxan) 550 mg PO BID [facility]; Protocol Last Admin: 08/17/18 17:46 Dose: 550 mg Torsemide (Demadex) 10 mg PO DAILY [facility] Last Admin: 08/17/18 10:55 Dose: 10 mg - Labs Labs: 08/18/18 06:20 08/18/18 06:20 PT 16.1 SECONDS (9.4-12.5) H 08/11/18 02:05 INR 1.40 08/11/18 02:05 - Constitutional Appears: Non-toxic, No Acute Distress, Cachectic - Eye Exam Additional comments: sunken eyes - Respiratory Exam Respiratory Exam: Clear to Ausculation Bilateral. absent: Respiratory Distress - Cardiovascular Exam Cardiovascular Exam: RRR, +S1, +S2 - GI/Abdominal Exam GI & Abdominal Exam: Soft, Tenderness - Extremities Exam Additional comments: no leg edema; - Neurological Exam Neurological Exam: Alert, Awake - Psychiatric Exam Psychiatric exam: absent: Agitated - Skin Skin Exam: Warm. absent: Cyanosis - Additional Findings Additional findings: lethargic but able to converse slowly Assessment and Plan (1) KEYUR (acute kidney injury) Assessment & Plan: Hemodynamic fluctuations in serum creatinine; currently not eating much so we will hold torsemide, can restart once having adequate PO intake to prevent rapid re-accumulation of ascites fluid (despite pleurx catheter); Status: Acute (2) Ascites Assessment & Plan: s/p pleurx catheter yesterday, see above; Status: Acute (3) CKD (chronic kidney disease) Status: Chronic
[2018-08-18] MEDS ORDERED: Magnesium Citrate Oral SOL (300 ml) PO ONE (13:26)
[2018-08-18] MEDS ORDERED: DiphenhydrAMINE 50 mg/ml Inj IVP ONE (19:31)
--- NOTE | 2018-08-18 23:11 | CP.PCM.PN ---
Subjective - Date & Time of Evaluation Date of Evaluation: 08/18/18 Time of Evaluation: 19:00 - Subjective Subjective: Patient vomiting today; not eating much; abd pain; no recent BM; Objective - Vital Signs/Intake and Output Vital Signs (last 24 hours): Temp Pulse Resp BP Pulse Ox 98.2 F 77 18 140/80 99 08/18/18 14:00 08/18/18 14:00 08/18/18 14:00 08/18/18 17:25 08/18/18 14:00 Intake and Output: 08/18/18 08/19/18 18:59 06:59 Intake Total 360 Output Total 1200 50 Balance -1200 310 - Medications Medications: Current Medications Albuterol/Ipratropium (Duoneb 3 Mg/0.5 Mg (3 Ml) Ud) 3 ml IH [id number] [facility] Last Admin: 08/18/18 19:39 Dose: 3 ml Bisacodyl (Dulcolax) 10 mg RC ONCE ONE Last Admin: 08/15/18 14:13 Dose: Not Given Famotidine (Pepcid) 20 mg PO HS [facility] Last Admin: 08/18/18 20:01 Dose: 20 mg Lactulose (Enulose) 20 gm PO BID [facility] Last Admin: 08/18/18 17:25 Dose: 20 gm Midodrine (Proamatine) 10 mg PO TID [facility] Last Admin: 08/18/18 17:25 Dose: 10 mg Oxycodone HCl (Oxycodone Immediate Release Tab) 5 mg PO Q6H PRN PRN Reason: Pain, moderate (4-7) Last Admin: 08/18/18 17:30 Dose: 5 mg Propranolol HCl (Inderal) 10 mg PO BID [facility] Last Admin: 08/18/18 17:25 Dose: 10 mg Rifaximin (Xifaxan) 550 mg PO BID [facility]; Protocol Last Admin: 08/18/18 17:26 Dose: 550 mg Torsemide (Demadex) 10 mg PO DAILY [facility] Last Admin: 08/17/18 10:55 Dose: 10 mg - Labs Labs: 08/18/18 06:20 08/18/18 06:20 PT 16.1 SECONDS (9.4-12.5) H 08/11/18 02:05 INR 1.40 08/11/18 02:05 - Constitutional Appears: Cachectic - Eye Exam Additional comments: sunken eyes - Respiratory Exam Respiratory Exam: Clear to Ausculation Bilateral. absent: Respiratory Distress - Cardiovascular Exam Cardiovascular Exam: RRR, +S1, +S2 - GI/Abdominal Exam GI & Abdominal Exam: Soft, Tenderness. absent: Distended - Extremities Exam Additional comments: no leg edema; - Neurological Exam Neurological Exam: Alert, Awake - Psychiatric Exam Psychiatric exam: absent: Agitated - Skin Skin Exam: Warm. 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
[2018-08-18] MEDS ORDERED: Sodium Chloride 0.9% 1,000 ML IV SCH (23:45)
[2018-08-19] MEDS: Albuterol-Ipratrop 3 mg / 0.5 (3 ml) UD IH SCH ×4 (01:09→20:58)
[2018-08-19 08:53] LABS: BASO # 0.03 K/mm3 (0.0-2.0); BASO % 0.3 % (0.0-3.0); EOS % 0.3 % (1.5-5.0); GRAN # 7.92 (1.4-6.5); GRAN % 73.5 % (50.0-68.0); HEMOGLOBIN 11.8 g/dL (14.0-18.0); LYMPH # 1.2 (1.2-3.4); LYMPH % 11.2 % (22.0-35.0); MEAN CELL VOLUME 99.2 fl (80.0-105.0); MEAN CORPUSCULAR HEMOGLOBIN 33.1 pg (25.0-35.0); MEAN CORPUSCULAR HGB CONC 33.4 g/dl (31.0-37.0); MEAN PLATELET VOLUME 10.9 fl (7.0-11.0); MONO # 1.6 (0.1-0.6); MONO % 14.7 % (1.0-6.0); RBC 3.56 10^6/uL (3.5-6.1); RED CELL DISTRIBUTION WIDTH 18.3 % (11.5-14.5); WHITE BLOOD COUNT 10.8 10^3/ul (4.5-11.0)
[2018-08-19 09:15] LABS: ALB/GLOB RATIO 0.7 (1.1-1.8); ALBUMIN 3.4 g/dL (3.0-4.8); CALCIUM 9.5 mg/dL (8.4-10.5)
--- NOTE | 2018-08-19 12:58 | CP.PCM.PN ---
<Ezequiel Alcocer - Last Filed: 08/19/18 21:45> Subjective - Date & Time of Evaluation Date of Evaluation: 08/19/18 Time of Evaluation: 06:05 - Subjective Subjective: Ezequiel Alcocer DO PGY-1, Internal Medicine Resident. Hospitalist Progress Note Patient seen and examined at bedside. Patient is resting in bed, awake and oriented. No acute events overnight. His abdominal discomfort is getting worse. Patient did not have bowel movement for 6 days now, but was refusing laxatives for the past 5 days. No response to laxatives. Patient denied chest pain, palpitation, fever, chills or change in bowel movement. Objective - Vital Signs/Intake and Output Vital Signs (last 24 hours): Temp Pulse Resp BP Pulse Ox 97.7 F 54 L 20 112/80 96 08/19/18 06:00 08/19/18 06:00 08/19/18 06:00 08/19/18 09:50 08/19/18 06:00 Intake and Output: 08/19/18 08/19/18 06:59 18:59 Intake Total 360 Output Total 50 Balance 310 - Medications Medications: Current Medications Albuterol/Ipratropium (Duoneb 3 Mg/0.5 Mg (3 Ml) Ud) 3 ml IH [id number] [facility] Last Admin: 08/19/18 09:23 Dose: 3 ml Bisacodyl (Dulcolax) 10 mg RC ONCE ONE Last Admin: 08/15/18 14:13 Dose: Not Given Famotidine (Pepcid) 20 mg PO HS [facility] Last Admin: 08/19/18 03:30 Dose: Not Given Sodium Chloride (Sodium Chloride 0.9%) 1,000 mls @ 60 mls/hr IV .[id number] [facility] Stop: 08/19/18 16:24 Lactulose (Enulose) 20 gm PO BID [facility] Last Admin: 08/19/18 09:49 Dose: 20 gm Midodrine (Proamatine) 10 mg PO TID [facility] Last Admin: 08/19/18 09:50 Dose: 10 mg Oxycodone HCl (Oxycodone Immediate Release Tab) 5 mg PO Q6H PRN PRN Reason: Pain, moderate (4-7) Last Admin: 08/18/18 23:51 Dose: 5 mg Propranolol HCl (Inderal) 10 mg PO BID [facility] Last Admin: 08/19/18 09:50 Dose: 10 mg Rifaximin (Xifaxan) 550 mg PO BID [facility]; Protocol Last Admin: 08/19/18 09:50 Dose: 550 mg Torsemide (Demadex) 10 mg PO DAILY [facility] Last Admin: 08/17/18 10:55 Dose: 10 mg - Labs Labs: 08/19/18 07:00 08/19/18 07:00 PT 16.1 SECONDS (9.4-12.5) H 08/11/18 02:05 INR 1.40 08/11/18 02:05 - Additional Findings Additional findings: - Constitutional Appears: Cachectic, Chronically Ill - Head Exam Head Exam: ATRAUMATIC, NORMOCEPHALIC - Eye Exam Eye Exam: EOMI, Normal appearance, PERRL Pupil Exam: NORMAL ACCOMODATION, PERRL - ENT Exam ENT Exam: Mucous Membranes Moist, Normal Exam - Neck Exam Neck Exam: Full ROM, Normal Inspection. absent: Lymphadenopathy - Respiratory Exam Respiratory Exam: Clear to Ausculation Bilateral, NORMAL BREATHING PATTERN - Cardiovascular Exam Cardiovascular Exam: REGULAR RHYTHM, +S1, +S2 - GI/Abdominal Exam GI & Abdominal Exam: Distended, Tenderness (mild diffuse tenderness to palpate. improving), Organomegaly, LLQ palpable masses felt on palpation. indwelling cath in place. no erythema, tenderness around cath site, no signs of infection - Extremities Exam Extremities Exam: Full ROM, Normal Capillary Refill, Normal Inspection. absent: Joint Swelling, Pedal Edema Additional comments: b/l muscle atrophy, decreased muscle mass in UL and LL - Back Exam Back Exam: NORMAL INSPECTION - Neurological Exam Neurological Exam: Alert, Awake, CN II-XII Intact, Oriented x3 Additional comments: generalized muscle weakness use walker to ambulate - Psychiatric Exam Psychiatric exam: Normal Affect, Normal Mood - Skin Skin Exam: Dry, Intact, Normal Color, Warm Assessment and Plan - Assessment and Plan (Free Text) Assessment: Patient is a 63 y/o M with PMHx of Liver Cirrhosis with chronic ascites, hepatic encephalopathy, esophageal varices, CKD stage III, HTN, CHF-pEF, and Afib who presented to the ED with SOB and abdominal distension and pressure. Patient s/p paracentesis with 11.2 L of fluid, SOB improved. On diuretics. Patient went for pleurx catheter placement yesterday for future papacentesis. Patient still constipated Plan: SOB and Abdominal Distension 2/2 Ascites from Decompensated Liver Cirrhosis - improving - Abdominal US (08/12): patent portal vein with hepatopetal flow. No thrombus /obstruction. Moderate ascites. - As per GI, patient may make appointment with his primary GI (Dr. Naranjo) for outpatient follow up. - c/w Albumin 25% 12.5g IV q6H, lactulose, xifaxin - s/p large volume paracentesis (08/12): 11.2 L fluid removed by IR. - CXR:moderate right pleural effusion - c/w duonebs - History of frequent paracentesis due to chronic cirrhosis. patient f/u in [facility] - c/w oxycodone 5 mg q6 prn for pain control - hold torsemide, can restart once having adequate PO intake. as per nephrology - d/c telemetry - s/p pleurx abdominal catheter Constipation - lactulose increased to 20 mg BID - patient does not want to take more lactulose because of excessive diarrhea - patient was prescribed ducolax but refused to take - Patient agreed to took one dose mag-hydroxide yesterday with no bowel movement - Mg-citrate, tap water emema were given with no response - abd XR showed early, incomplete SBO. no visible free air - surgery consulted - CT A/P with oral contrast ordered KEYUR on CKD Stage III - Creatinine fluctuating - avoid nephrotoxic medications -torsemide held for poor oral intake - PTH and Ca are normal Hx of Hepatic encephalopathy - AAOx3 on exam - c/w rifaxamin and lactulose - ammonia level was normal Anemia -likely due to chronic disease/CKD -H/H stable -continue monitoring -may benefit from EPO as per nephro note Deconditioning -As per PT eval: TCU or NONA as an alternative -Palliative care consulted: continue pain meds and f/u in [facility] for ascites and liver cirrhosis Hx of HTN - normotensive s/p paracentesis - monitor BP Anxiety -continue xanax at bedtime PPX/Diet - GI ppx: pepcid - DVT ppx: SCDs - GI/hepatic diet Case reviewed and plan discussed with Attending Physician, Dr. Dixon <Kandi Dixon R - Last Filed: 08/22/18 17:21> Objective - Vital Signs/Intake and Output Vital Signs (last 24 hours): Temp Pulse Resp BP Pulse Ox 97.5 F L 75 16 142/68 100 08/22/18 07:57 08/22/18 07:57 08/22/18 07:57 08/22/18 11:34 08/22/18 07:57 Intake and Output: 08/22/18 08/22/18 06:59 18:59 Intake Total 540 Output Total 400 1200 Balance 140 -1200 - Medications Medications: Current Medications Albuterol/Ipratropium (Duoneb 3 Mg/0.5 Mg (3 Ml) Ud) 3 ml IH [id number] [facility] Last Admin: 08/22/18 14:28 Dose: 3 ml Famotidine (Pepcid) 20 mg PO DAILY [facility] Last Admin: 08/22/18 11:34 Dose: 20 mg Sodium Chloride (Sodium Chloride 0.9%) 1,000 mls @ 100 mls/hr IV .Q10H [facility] Last Admin: 08/21/18 23:25 Dose: 100 mls/hr Lactulose (Enulose) 20 gm PO BID [facility] Last Admin: 08/22/18 11:35 Dose: Not Given Lorazepam (Ativan) 0.5 mg IVP Q6H PRN; Protocol PRN Reason: Anxiety Last Admin: 08/21/18 22:33 Dose: 0.5 mg Midodrine (Proamatine) 10 mg PO TID [facility] Last Admin: 08/22/18 14:03 Dose: Not Given Ondansetron HCl (Zofran Inj) 4 mg IVP Q6H PRN PRN Reason: Nausea/Vomiting Last Admin: 08/20/18 00:29 Dose: 4 mg Propranolol HCl (Inderal) 10 mg PO BID [facility] Last Admin: 08/22/18 11:34 Dose: 10 mg - Labs Labs: 08/22/18 06:30 08/22/18 06:30 PT 16.1 SECONDS (9.4-12.5) H 08/11/18 02:05 INR 1.40 08/11/18 02:05 Attending/Attestation - Attestation I have personally seen and examined this patient.: Yes I have fully participated in the care of the patient.: Yes I have reviewed all pertinent clinical information, including history, physical exam and plan: Yes Notes (Text): Patient seen and examined by me at 10:20 AM with resident 08/19/18. Case including HPI, physical exam, and assessment and plan discussed with resident. Agree with above with following additions/corrections. Patient is 63-year-old male with past medical history significant for nonalcoholic liver cirrhosis, hepatic encephalopathy, chronic ascites, esophageal varices, chronic kidney disease, diastolic CHF, and paroxysmal atrial fibrillation that presented to the emergency room with shortness of breath. Patient states that he is feels ok. Patient continue to complain of abdominal pain and no bowel movements. Patient denies any shortness of breath. No nausea or vomiting. No headaches or dizziness. No chest pain or palpitations. No dysuria. Physical exam: Gen: Awake and alert lying in bed in no acute distress HEENT: Normocephalic, atraumatic. Extraocular muscles intact, pupils equal reactive. No scleral icterus. Oropharynx is pink and moist. Neck is supple. Cardiovascular: Normal rhythm. Normal S1, S2. No murmurs, rubs, or gallops appreciated Pulmonary: Normal respiratory effort. No rhonchi, rales, or wheezing appreciated. Gastrointestinal: Soft, positive distention. Positive generalized tenderness. Positive decreased bowel sounds all 4 quadrants, no guarding. Positive pleurx cath right lower abdominal area. Dressing clean, dry, and intact. Musculoskeletal: Moves all extremities. No calf tenderness. No edema appreciated. Central nervous system: AAO x 3. CN 2-12 grossly intact Dermatologic: Skin warm and dry Assessment and plan: Patient is 63-year-old male with past medical history si gnificant for nonalcoholic liver cirrhosis, hepatic encephalopathy, chronic ascites, esophageal varices, chronic kidney disease, diastolic CHF, and paroxysmal atrial fibrillation that presented to the emergency room with shortness of breath. 1. Small bowel obstruction. Abdominal xray per radiologist shows early, incomplete small bowel obstruction, no visible free air. Patient made NPO. Continued on IV fluids. Surgery consulted. Pending CT abd/pelvis. 2. Dyspnea. Likely secondary to ascites/pleural effusion. Dyspnea resolved. Torsemide held secondary to KEYUR. S/P paracentesis with 11,200ml removed. S/P pleurx cath placement. Continue to monitor. Chest xray per radiologist showed moderate right pleural effusion. 3. Ascites secondary to non alcoholic liver cirrhosis. Torsemide held secondary to KEYUR. Continue with lactulose and xifaxin. Continue propranolol. S/P paracentesis with 11,200ml removed. S/P albumin. S/P pleurx cath placement 08/16/18. Abdominal Doppler ultrasound per radiologist showed patent portal vein with hepatopetal flow. GI recommendations appreciated. 4. Abdominal pain. Secondary to ascites and liver cirrhosis and constipation.Now with SBO. Surgery consulted, follow up recommendations. Pleurx cath in place. Continue with NPO and IV fluids 5. Constipation. No bowel movement. Pending CT abd/pelvis. Abdominal xray shows SBO. Surgery consulted, follow up recommendations 6. Moderate right pleural effusion. Torsemide held. No shortness of breath. Pleurx cath in place. 7. KEYUR on CKD. Nephrology following, recommendations appreciated. Creatinine worsening. Torsemide held. Continue IV fluids. Continue to monitor 8. Chronic Anemia. H&H stable. Patient asymptomatic. Continue to mointor CBC. 9. Thrombocytopenia. Likely secondary to liver cirrhosis. Continue to monitor. 10. History of hepatic encephalopathy. No encephalopathy currently. Continue lactulose and Xifaxan. 11. Anxiety. Continue Xanax at bedtime. 12. GI/DVT prophylaxis. Pepcid and SCDs. Case was discussed in detail with the patient regarding current diagnosis and treatment plan. All questions were answered.
--- NOTE | 2018-08-19 13:38 | RAD ---
Date of service: 08/19/2018 HISTORY: abdominal distension COMPARISON: 08/16/2018 single-view chest. FINDINGS: BOWEL: Dilated proximal and mid small bowel. Distal small bowel is nonobstructing. BONES: Normal. OTHER FINDINGS: Completely visualize findings right lower lung field including consolidative change right pleural effusion a finding identified previously. Drainage catheter identified right kamla abdomen. IMPRESSION: Early, incomplete small bowel obstruction. No visible free air.
[2018-08-19] MEDS ORDERED: Sodium Chloride 0.9% 1,000 ML IV SCH (16:24)
[2018-08-19] MEDS ORDERED: Iohexol 240 (50 ml) ONE (17:12)
--- NOTE | 2018-08-19 18:41 | CP.PCM.CON ---
History of Present Illness - History of Present Illness History of Present Illness: General Surgery Consult Note for Dr. Zapien This is a 63M with a PMH of HTN, GERD, Non-alcoholic liver cirrhosis, Ascites, CHF, afib, and esophageal varices, gi bleed he was admitted last week for abdominal pain and chest pain. He had a paracentesis which drained 11L on the 08/15. Durring the course of the hospital stay the patient has not moved his bowels. He reports he does not know when his last BM was. Additionally he repo rts that he does not know when he last ate. He reports no changes in his abdominal pain. He reports one episode of mucous like emesis since admission. He denies chest pain or SOB. PMH: HTN, GERD, Non-alcoholic liver cirrhosis, Ascites, CHF, afib, and esophageal varices, gi bleed PSH: Inguinal hernia repair SH: Denies alcohol, drug used; Former smoker, quit 1.5 years ago FH: Mother - DM, heart disease; Father - [place] All: Beef products, banana Review of Systems - Review of Systems All systems: reviewed and no additional remarkable complaints except - Constitutional Constitutional: Anorexia, Weight Loss. absent: Chills, Fever - Cardiovascular Cardiovascular: absent: Chest Pain, Dyspnea - Respiratory Respiratory: absent: Dyspnea - Gastrointestinal Gastrointestinal: Nausea, Vomiting. absent: Bloating Past Patient History - Infectious Disease Hx of Infectious Diseases: None - Tetanus Immunizations Tetanus Immunization: Unknown - Past Medical History & Family History Past Medical History?: Yes - Past Social History Smoking Status: Former Smoker - CARDIAC Hx Congestive Heart Failure: Yes Hx Hypertension: Yes - PULMONARY Hx Pneumonia: Yes - NEUROLOGICAL Hx Neurological Disorder: No - HEENT Hx HEENT Problems: No - RENAL Hx Renal Failure: Yes (CKD stage 3B) - ENDOCRINE/METABOLIC Hx Endocrine Disorders: No - HEMATOLOGICAL/ONCOLOGICAL Hx Blood Transfusions: Yes Hx Blood Transfusion Reaction: No - INTEGUMENTARY Hx Dermatological Problems: No - MUSCULOSKELETAL/RHEUMATOLOGICAL Hx Falls: No - GASTROINTESTINAL Hx Gastrointestinal Disorders: Yes (ESOPHAGEAL VARICES,DYSPHAGIA,GERD,HEPATOCEPHALOPATHY,GI BLEED) - GENITOURINARY/GYNECOLOGICAL Hx Genitourinary Disorders: No Hx Reproductive Disorders: No - PSYCHIATRIC Hx Anxiety: Yes Hx Depression: Yes Hx Substance Use: No - SURGICAL HISTORY Hx Cardiac Catheterization: Yes Hx Coronary Stent: Yes - ANESTHESIA Hx Anesthesia Reactions: No Hx Malignant Hyperthermia: No Meds Allergies/Adverse Reactions: Allergies Allergy/AdvReac Type Severity Reaction Status Date / Time Beef Containing Products Allergy Severe ANAPHYLAXIS Verified 04/19/18 14:52 beef derived (bovine) Allergy Severe ANAPHYLAXIS Verified 04/19/18 14:52 banana Allergy Intermediate ITCHING Verified 04/19/18 14:52 velcro Allergy ITCHING Uncoded 04/19/18 14:52 - Medications Medications: Current Medications Albuterol/Ipratropium (Duoneb 3 Mg/0.5 Mg (3 Ml) Ud) 3 ml IH [id number] [facility] Last Admin: 08/19/18 13:19 Dose: 3 ml Bisacodyl (Dulcolax) 10 mg RC ONCE ONE Last Admin: 08/15/18 14:13 Dose: Not Given Famotidine (Pepcid) 20 mg IVP DAILY [facility] Sodium Chloride (Sodium Chloride 0.9%) 1,000 mls @ 50 mls/hr IV .Q20H [facility] Last Admin: 08/19/18 17:24 Dose: 50 mls/hr Lactulose (Enulose) 20 gm PO BID [facility] Last Admin: 08/19/18 17:23 Dose: Not Given Midodrine (Proamatine) 10 mg PO TID [facility] Last Admin: 08/19/18 17:23 Dose: Not Given Oxycodone HCl (Oxycodone Immediate Release Tab) 5 mg PO Q6H PRN PRN Reason: Pain, moderate (4-7) Last Admin: 08/18/18 23:51 Dose: 5 mg Propranolol HCl (Inderal) 10 mg PO BID [facility] Last Admin: 08/19/18 17:23 Dose: Not Given Rifaximin (Xifaxan) 550 mg PO BID [facility]; Protocol Last Admin: 08/19/18 17:23 Dose: Not Given Torsemide (Demadex) 10 mg PO DAILY [facility] Last Admin: 08/17/18 10:55 Dose: 10 mg Physical Exam - Constitutional Appears: Non-toxic, No Acute Distress - Head Exam Head Exam: ATRAUMATIC, NORMOCEPHALIC - Eye Exam Eye Exam: EOMI, Normal appearance - ENT Exam ENT Exam: Mucous Membranes Moist - Respiratory Exam Respiratory Exam: NORMAL BREATHING PATTERN - Cardiovascular Exam Cardiovascular Exam: +S1, +S2 - GI/Abdominal Exam GI & Abdominal Exam: Soft. absent: Distended, Firm, Guarding, Hernia, Rigid Additional comments: Mildly tender, possible small reducible right sided hernia - Neurological Exam Neurological exam: Alert, Oriented x3 - Psychiatric Exam Psychiatric exam: Normal Affect, Normal Mood - Skin Skin Exam: Dry, Intact Results - Vital Signs Recent Vital Signs: Last Vital Signs Temp 97.7 F 08/19/18 06:00 Pulse 54 L 08/19/18 06:00 Resp 20 08/19/18 06:00 BP 112/80 08/19/18 09:50 Pulse Ox 96 08/19/18 06:00 - Labs Result Diagrams: 08/19/18 07:00 08/19/18 07:00 Labs: Laboratory Results - last 24 hr 08/19/18 08/19/18 07:00 07:00 WBC 10.8 D RBC 3.56 Hgb 11.8 L Hct 35.3 L MCV 99.2 MCH 33.1 MCHC 33.4 RDW 18.3 H Plt Count 108 L MPV 10.9 Gran % 73.5 H Lymph % (Auto) 11.2 L [place] % (Auto) 14.7 H Eos % (Auto) 0.3 L Baso % (Auto) 0.3 Gran # 7.92 H Lymph # (Auto) 1.2 [place] # (Auto) 1.6 H Eos # (Auto) 0.0 Baso # (Auto) 0.03 Sodium 138 Potassium 4.2 Chloride 94 L Carbon Dioxide 31 Anion Gap 17 BUN 52 H Creatinine 2.5 H Est GFR ( Amer) 32 Est GFR (Non-Af Amer) 26 Random Glucose 119 H Calcium 9.5 Total Bilirubin 3.4 H AST 80 H ALT 32 Alkaline Phosphatase 320 H Total Protein 8.2 Albumin 3.4 Globulin 4.8 Albumin/Globulin Ratio 0.7 L - Imaging and Cardiology Abdominal x-ray Status: Image reviewed by me, Report reviewed by me Assessment & Plan - Assessment and Plan (Free Text) Assessment: 63M with cirrhosis ascities, and abdominal pain No surgical management at this time Diet per primiray team CT abdomen with PO contrast ordered will followup Continue antiemetics and if pt developes nausea and vomiting will place NGT Will continue to follow D/W Dr. Rupali Arias PGY3
--- NOTE | 2018-08-19 23:04 | CP.PCM.PN ---
Subjective - Date & Time of Evaluation Date of Evaluation: 08/19/18 Time of Evaluation: 13:00 - Subjective Subjective: Patient still with abd pain, no BM despite getting enema and being on lactulose; no longer vomiting; not consuming much PO intake; Objective - Vital Signs/Intake and Output Vital Signs (last 24 hours): Temp Pulse Resp BP Pulse Ox 97.7 F 54 L 20 112/80 96 08/19/18 06:00 08/19/18 06:00 08/19/18 06:00 08/19/18 09:50 08/19/18 06:00 - Medications Medications: Current Medications Albuterol/Ipratropium (Duoneb 3 Mg/0.5 Mg (3 Ml) Ud) 3 ml IH [id number] [facility] Last Admin: 08/19/18 20:58 Dose: 3 ml Bisacodyl (Dulcolax) 10 mg RC ONCE ONE Last Admin: 08/15/18 14:13 Dose: Not Given Famotidine (Pepcid) 20 mg IVP DAILY [facility] Sodium Chloride (Sodium Chloride 0.9%) 1,000 mls @ 50 mls/hr IV .Q20H [facility] Last Admin: 08/19/18 17:24 Dose: 50 mls/hr Lactulose (Enulose) 20 gm PO BID [facility] Last Admin: 08/19/18 17:23 Dose: Not Given Midodrine (Proamatine) 10 mg PO TID [facility] Last Admin: 08/19/18 17:23 Dose: Not Given Ondansetron HCl (Zofran Inj) 4 mg IVP Q6H PRN PRN Reason: Nausea/Vomiting Last Admin: 08/19/18 19:22 Dose: 4 mg Oxycodone HCl (Oxycodone Immediate Release Tab) 5 mg PO Q6H PRN PRN Reason: Pain, moderate (4-7) Last Admin: 08/18/18 23:51 Dose: 5 mg Propranolol HCl (Inderal) 10 mg PO BID [facility] Last Admin: 08/19/18 17:23 Dose: Not Given Rifaximin (Xifaxan) 550 mg PO BID [facility]; Protocol Last Admin: 08/19/18 17:23 Dose: Not Given Torsemide (Demadex) 10 mg PO DAILY [facility] Last Admin: 08/17/18 10:55 Dose: 10 mg - Labs Labs: 08/19/18 07:00 08/19/18 07:00 PT 16.1 SECONDS (9.4-12.5) H 08/11/18 02:05 INR 1.40 08/11/18 02:05 - Constitutional Appears: Non-toxic, No Acute Distress, Cachectic - Eye Exam Additional comments: sunken eyes - Respiratory Exam Respiratory Exam: Clear to Ausculation Bilateral. absent: Respiratory Distress - Cardiovascular Exam Cardiovascular Exam: RRR, +S1, +S2 - GI/Abdominal Exam GI & Abdominal Exam: Distended, Soft, Tenderness - Exam Exam: absent: Bladder Distension - Extremities Exam Additional comments: no leg edema; - Neurological Exam Neurological Exam: Alert, Awake - Psychiatric Exam Psychiatric exam: absent: Agitated - Skin Skin Exam: Warm. absent: Cyanosis Assessment and Plan (1) KEYUR (acute kidney injury) Assessment & Plan: KEYUR on CKD, likely pre-renal etiology with decreased PO intake and now with possible partial SBO; -holding diuretics; continue IVF w/ NS at 60 cc/hr; -avoid nephrotoxic agents; Status: Acute (2) Ascites Assessment & Plan: s/p pleurx catheter; 1200 cc drained per I/O record today; continue IVF for now; Status: Acute (3) CKD (chronic kidney disease) Status: Chronic
[2018-08-20] MEDS: Albuterol-Ipratrop 3 mg / 0.5 (3 ml) UD IH SCH ×4 (03:30→20:02)
--- NOTE | 2018-08-20 07:31 | CP.PCM.PN ---
Subjective - Date & Time of Evaluation Date of Evaluation: 08/20/18 Time of Evaluation: 07:27 - Subjective Subjective: General Surgery - Dr. Zapien Pt S&E. NEHEMIAH. Pt tolerated PO contrast yesterday for CT scan. He complains of abdominal pain and distension. He denies any flatus or bowel function yet. Pt admits to nausea but no vomiting. Objective - Vital Signs/Intake and Output Vital Signs (last 24 hours): Temp Pulse Resp BP Pulse Ox 97.7 F 54 L 20 112/80 96 08/19/18 06:00 08/19/18 06:00 08/19/18 06:00 08/19/18 09:50 08/19/18 06:00 - Medications Medications: Current Medications Albuterol/Ipratropium (Duoneb 3 Mg/0.5 Mg (3 Ml) Ud) 3 ml IH [id number] [facility] Last Admin: 08/20/18 03:30 Dose: 3 ml Bisacodyl (Dulcolax) 10 mg RC ONCE ONE Last Admin: 08/15/18 14:13 Dose: Not Given Famotidine (Pepcid) 20 mg IVP DAILY [facility] Sodium Chloride (Sodium Chloride 0.9%) 1,000 mls @ 50 mls/hr IV .Q20H [facility] Last Admin: 08/19/18 17:24 Dose: 50 mls/hr Lactulose (Enulose) 20 gm PO BID [facility] Last Admin: 08/19/18 17:23 Dose: Not Given Midodrine (Proamatine) 10 mg PO TID [facility] Last Admin: 08/19/18 17:23 Dose: Not Given Ondansetron HCl (Zofran Inj) 4 mg IVP Q6H PRN PRN Reason: Nausea/Vomiting Last Admin: 08/20/18 00:29 Dose: 4 mg Propranolol HCl (Inderal) 10 mg PO BID [facility] Last Admin: 08/19/18 17:23 Dose: Not Given Rifaximin (Xifaxan) 550 mg PO BID [facility]; Protocol Last Admin: 08/19/18 17:23 Dose: Not Given Torsemide (Demadex) 10 mg PO DAILY [facility] Last Admin: 08/17/18 10:55 Dose: 10 mg - Labs Labs: 08/19/18 07:00 08/19/18 07:00 PT 16.1 SECONDS (9.4-12.5) H 08/11/18 02:05 INR 1.40 08/11/18 02:05 - Constitutional Appears: No Acute Distress - Head Exam Head Exam: ATRAUMATIC, NORMAL INSPECTION, NORMOCEPHALIC - Eye Exam Eye Exam: Normal appearance - Respiratory Exam Respiratory Exam: NORMAL BREATHING PATTERN. absent: Respiratory Distress - Cardiovascular Exam Cardiovascular Exam: REGULAR RHYTHM - GI/Abdominal Exam GI & Abdominal Exam: Distended, Guarding (voluntary), Soft, Tenderness (mild). absent: Firm, Rigid, Rebound - Neurological Exam Neurological Exam: Alert, Awake - Psychiatric Exam Psychiatric exam: Normal Affect, Normal Mood - Skin Skin Exam: Dry, Normal Color Assessment and Plan - Assessment and Plan (Free Text) Assessment: 63M w/ cirrhosis, ascities w/ aspira catheter, KEYUR vs. Hepatorenal syndrome, R Pleural effusion, and abdominal pain/distension related to ileus vs. SBO -Maintain NPO, anti-emetics PRN, possible NGT if vomits -IVF, management as per Nephrology -No surgical plans at this time -Medical management as per primary -Will continue to follow D/W Dr. Rupali Murillo PGy4
--- NOTE | 2018-08-20 08:28 | CT ---
Date of service: 08/19/2018 PROCEDURE: CT Abdomen and Pelvis with contrast HISTORY: Small-bowel obstruction. COMPARISON: 04/11/2018. TECHNIQUE: Oral contrast only. Radiation dose: Total exam DLP = 497.63 mGy-cm. This CT exam was performed using one or more of the following dose reduction techniques: Automated exposure control, adjustment of the mA and/or kV according to patient size, and/or use of iterative reconstruction technique. FINDINGS: LOWER THORAX: Incompletely visualize right pleural effusion. Similar finding identified on the prior CT scan. Right lower lobe compressive atelectasis. LIVER: Cirrhotic appearing liver unchanged compared to the prior study. GALLBLADDER AND BILE DUCTS: Unremarkable. PANCREAS: Atrophic pancreas. Calcifications throughout the pancreas indicative of chronic pancreatitis without an acute inflammatory component. SPLEEN: Mild splenomegaly. ADRENALS: Unremarkable. No mass. KIDNEYS AND URETERS: Right kidney: Unremarkable. No hydronephrosis. No solid mass. Left kidney in ureter: Nonobstructing lower pole calculus disease unchanged compared to the prior study. VASCULATURE: Unremarkable. No aortic aneurysm. BOWEL: Distal small bowel obstruction. The transition point appears in the right lower quadrant. APPENDIX: No abnormalities to suggest acute appendicitis. No right lower quadrant inflammatory processes identified. PERITONEUM: Moderate volume intra-abdominal and pelvic ascites drainage catheter identified coursing in a cephalad direction, of the tip is posterior to the liver. LYMPH NODES: Unremarkable. No enlarged lymph nodes. BLADDER: Unremarkable. REPRODUCTIVE: Unremarkable. BONES: Lower thoracic and upper lumbar compression deformities. These represent stable findings compared to the prior study. OTHER FINDINGS: None. IMPRESSION: Distal small bowel obstruction. Right pleural effusion, abdominal and pelvic ascites similar to that seen previously. Additional benign and incidental findings are stable. Concordant results (preliminary interpretation) provided by [facility]. Procedure Completed: 20:04 Preliminary Report: Dictated and Authenticated: 21:09. Final Interpretation: 08:26. August 20, 2018.
[2018-08-20 08:32] LABS: BASO # 0.03 K/mm3 (0.0-2.0); BASO % 0.2 % (0.0-3.0); EOS # 0.1 (0.0-0.7); EOS % 0.4 % (1.5-5.0); GRAN # 9.27 (1.4-6.5); GRAN % 76.1 % (50.0-68.0); HEMOGLOBIN 11.5 g/dL (14.0-18.0); LYMPH # 1.2 (1.2-3.4); LYMPH % 10.2 % (22.0-35.0); MEAN CELL VOLUME 99.4 fl (80.0-105.0); MEAN CORPUSCULAR HEMOGLOBIN 32.7 pg (25.0-35.0); MEAN CORPUSCULAR HGB CONC 32.9 g/dl (31.0-37.0); MEAN PLATELET VOLUME 11.2 fl (7.0-11.0); MONO # 1.6 (0.1-0.6); MONO % 13.1 % (1.0-6.0); RBC 3.52 10^6/uL (3.5-6.1); RED CELL DISTRIBUTION WIDTH 18.7 % (11.5-14.5); WHITE BLOOD COUNT 12.2 10^3/ul (4.5-11.0)
[2018-08-20 08:53] LABS: ALB/GLOB RATIO 0.7 (1.1-1.8); ALBUMIN 3.1 g/dL (3.0-4.8); CALCIUM 8.9 mg/dL (8.4-10.5)
[2018-08-20] MEDS ORDERED: Sodium Chloride 0.9% 1,000 ML IV SCH (10:45)
[2018-08-20] MEDS ORDERED: Albumin Human 25% (12.5 gm/50 ml) IV SCH (14:15)
--- NOTE | 2018-08-20 15:38 | CP.PCM.PN ---
<Ezequiel Alcocer - Last Filed: 08/20/18 15:33> Subjective - Date & Time of Evaluation Date of Evaluation: 08/20/18 Time of Evaluation: 07:10 - Subjective Subjective: Ezequiel Alcocer DO PGY-1, Internal Medicine Resident. Hospitalist Progress Note Patient seen and examined at bedside. Patient is resting in bed, awake and oriented. No acute events overnight. His abdominal discomfort is persistent due to not having bowel movement for 7 days now. He was refusing laxatives for the past 5 days. No response to laxatives. Patient denied chest pain, palpitation, fever, chills or change in bowel movement. Objective - Vital Signs/Intake and Output Vital Signs (last 24 hours): Temp Pulse Resp BP Pulse Ox 98.1 F 77 18 123/72 97 08/20/18 14:00 08/20/18 14:00 08/20/18 14:00 08/20/18 14:00 08/20/18 14:00 Intake and Output: 08/20/18 08/20/18 06:59 18:59 Output Total 200 Balance -200 - Medications Medications: Current Medications Albumin Human (Albumin Human 25% (12.5 Gm/50 Ml)) 12.5 gm IV Q6H [facility] Stop: 08/21/18 08:31 Albuterol/Ipratropium (Duoneb 3 Mg/0.5 Mg (3 Ml) Ud) 3 ml IH [id number] [facility] Last Admin: 08/20/18 07:59 Dose: 3 ml Bisacodyl (Dulcolax) 10 mg RC ONCE ONE Last Admin: 08/15/18 14:13 Dose: Not Given Famotidine (Pepcid) 20 mg IVP DAILY [facility] Last Admin: 08/20/18 15:21 Dose: 20 mg Sodium Chloride (Sodium Chloride 0.9%) 1,000 mls @ 100 mls/hr IV .Q10H [facility] Lactulose (Enulose) 20 gm PO BID [facility] Last Admin: 08/20/18 15:19 Dose: Not Given Midodrine (Proamatine) 10 mg PO TID [facility] Last Admin: 08/20/18 15:20 Dose: Not Given Ondansetron HCl (Zofran Inj) 4 mg IVP Q6H PRN PRN Reason: Nausea/Vomiting Last Admin: 08/20/18 00:29 Dose: 4 mg Propranolol HCl (Inderal) 10 mg PO BID [facility] Last Admin: 08/20/18 11:32 Dose: Not Given Rifaximin (Xifaxan) 550 mg PO BID [facility]; Protocol Last Admin: 08/20/18 11:33 Dose: Not Given - Labs Labs: 08/20/18 07:00 08/20/18 07:00 PT 16.1 SECONDS (9.4-12.5) H 08/11/18 02:05 INR 1.40 08/11/18 02:05 - Additional Findings Additional findings: - Constitutional Appears: Cachectic, Chronically Ill - Head Exam Head Exam: ATRAUMATIC, NORMOCEPHALIC - Eye Exam Eye Exam: EOMI, Normal appearance, PERRL Pupil Exam: NORMAL ACCOMODATION, PERRL - ENT Exam ENT Exam: Mucous Membranes Moist, Normal Exam - Neck Exam Neck Exam: Full ROM, Normal Inspection. absent: Lymphadenopathy - Respiratory Exam Respiratory Exam: Clear to Ausculation Bilateral, NORMAL BREATHING PATTERN - Cardiovascular Exam Cardiovascular Exam: REGULAR RHYTHM, +S1, +S2 - GI/Abdominal Exam GI & Abdominal Exam: Distended, Tenderness (mild diffuse tenderness to palpate. improving), Organomegaly, LLQ palpable masses felt on palpation. indwelling cath in place. no erythema, tenderness around cath site, no signs of infection - Extremities Exam Extremities Exam: Full ROM, Normal Capillary Refill, Normal Inspection. absent: Joint Swelling, Pedal Edema Additional comments: b/l muscle atrophy, decreased muscle mass in UL and LL - Back Exam Back Exam: NORMAL INSPECTION - Neurological Exam Neurological Exam: Alert, Awake, CN II-XII Intact, Oriented x3 Additional comments: generalized muscle weakness use walker to ambulate - Psychiatric Exam Psychiatric exam: Normal Affect, Normal Mood - Skin Skin Exam: Dry, Intact, Normal Color, Warm Assessment and Plan - Assessment and Plan (Free Text) Assessment: Patient is a 63 y/o M with PMHx of Liver Cirrhosis with chronic ascites, hepatic encephalopathy, esophageal varices, CKD stage III, HTN, CHF-pEF, and Afib who presented to the ED with SOB and abdominal distension and pressure. Patient s/p paracentesis with 11.2 L of fluid, SOB improved. On diuretics. Patient went for pleurx catheter placement yesterday for future papacentesis. Patient still constipated Plan: SOB and Abdominal Distension 2/2 Ascites from Decompensated Liver Cirrhosis - improving - Abdominal US (08/12): patent portal vein with hepatopetal flow. No thrombus/obstruction. Moderate ascites. - As per GI, patient may make appointment with his primary GI (Dr. Naranjo) for outpatient follow up. - c/w Albumin 25% 12.5g IV q6H, lactulose, xifaxin - s/p large volume paracentesis (08/12): 11.2 L fluid removed by IR. - CXR:moderate right pleural effusion - c/w duonebs - History of frequent paracentesis due to chronic cirrhosis. patient f/u in [facility] - c/w oxycodone 5 mg q6 prn for pain control - hold torsemide, can restart once having adequate PO intake. as per nephrology - d/c telemetry - s/p pleurx abdominal catheter: 1200cc drained on 08/19 Constipation - lactulose increased to 20 mg BID - patient does not want to take more lactulose because of excessive diarrhea - patient was prescribed ducolax but refused to take - Patient agreed to took one dose mag-hydroxide yesterday with no bowel movement - Mg-citrate, tap water emema were given with no response - abd XR showed early, incomplete SBO. no visible free air - surgery consulted: Maintain NPO, anti-emetics PRN, possible NGT if vomits. No surgical plans at this time - CT A/P with oral contrast: distal SBO KEYUR on CKD Stage III - pre-renal due to poor po intake - NS at 60 cc/hr - avoid nephrotoxic medications - torsemide held for poor oral intake - PTH and Ca are normal Hx of Hepatic encephalopathy - AAOx3 on exam - c/w rifaxamin and lactulose - ammonia level was normal Anemia -likely due to chronic disease/CKD -H/H stable -continue monitoring -may benefit from EPO as per nephro note Deconditioning -As per PT eval: TCU or NONA as an alternative -Palliative care consulted: continue pain meds and f/u in [facility] for ascites and liver cirrhosis Hx of HTN - normotensive s/p paracentesis - monitor BP Anxiety -continue xanax at bedtime PPX/Diet - GI ppx: pepcid - DVT ppx: SCDs - GI/hepatic diet Case reviewed and plan discussed with Attending Physician, Dr. Dixon <Kandi Dixon R - Last Filed: 08/22/18 17:29> Objective - Vital Signs/Intake and Output Vital Signs (last 24 hours): Temp Pulse Resp BP Pulse Ox 97.5 F L 75 16 142/68 100 08/22/18 07:57 08/22/18 07:57 08/22/18 07:57 08/22/18 11:34 08/22/18 07:57 Intake and Output: 08/22/18 08/22/18 06:59 18:59 Intake Total 540 Output Total 400 1200 Balance 140 -1200 - Medications Medications: Current Medications Albuterol/Ipratropium (Duoneb 3 Mg/0.5 Mg (3 Ml) Ud) 3 ml IH [id number] [facility] Last Admin: 08/22/18 14:28 Dose: 3 ml Famotidine (Pepcid) 20 mg PO DAILY [facility] Last Admin: 08/22/18 11:34 Dose: 20 mg Sodium Chloride (Sodium Chloride 0.9%) 1,000 mls @ 100 mls/hr IV .Q10H [facility] Last Admin: 08/21/18 23:25 Dose: 100 mls/hr Lactulose (Enulose) 20 gm PO BID [facility] Last Admin: 08/22/18 11:35 Dose: Not Given Lorazepam (Ativan) 0.5 mg IVP Q6H PRN; Protocol PRN Reason: Anxiety Last Admin: 08/21/18 22:33 Dose: 0.5 mg Midodrine (Proamatine) 10 mg PO TID [facility] Last Admin: 08/22/18 14:03 Dose: Not Given Ondansetron HCl (Zofran Inj) 4 mg IVP Q6H PRN PRN Reason: Nausea/Vomiting Last Admin: 08/20/18 00:29 Dose: 4 mg Propranolol HCl (Inderal) 10 mg PO BID [facility] Last Admin: 08/22/18 11:34 Dose: 10 mg - Labs Labs: 08/22/18 06:30 08/22/18 06:30 PT 16.1 SECONDS (9.4-12.5) H 08/11/18 02:05 INR 1.40 08/11/18 02:05 Attending/Attestation - Attestation I have personally seen and examined this patient.: Yes I have fully participated in the care of the patient.: Yes I have reviewed all pertinent clinical information, including history, physical exam and plan: Yes Notes (Text): Patient seen and examined by me at 10:40 AM with resident 08/20/18. Case including HPI, physical exam, and assessment and plan discussed with resident. Agree with above with following additions/corrections. Patient is 63-year-old male with past medical history significant for nonalcoholic liver cirrhosis, hepatic encephalopathy, chronic ascites, esophageal varices, chronic kidney disease, diastolic CHF, and paroxysmal atrial fibrillation that presented to the emergency room with shortness of breath. Patient states that he is feels a little better today. Abdominal pain slightly improved. Patient denies any bowel movements or flatus. Patient states mouth feels dry and he wants to drink water. He denies any shortness of breath. No nausea or vomiting. No headaches or dizziness. No chest pain or palpitations. No dysuria. Physical exam: Gen: Awake and alert lying in bed in no acute distress HEENT: Normocephalic, atraumatic. Extraocular muscles intact, pupils equal reactive. No scleral icterus. Oropharynx is pink. Positive dry mucous membranes. Neck is supple. Cardiovascular: Normal rhythm. Normal S1, S2. No murmurs, rubs, or gallops appreciated Pulmonary: Normal respiratory effort. No rhonchi, rales, or wheezing appreciated. Gastrointestinal: Soft, positive distention. Positive generalized tenderness. Positive decreased bowel sounds all 4 quadrants, no guarding. Positive pleurx cath right lower abdominal area. Dressing clean, dry, and intact. Musculoskeletal: Moves all extremities. No calf tenderness. No edema appreciated. Central nervous system: AAO x 3. CN 2-12 grossly intact Dermatologic: Skin warm and dry Assessment and plan: Patient is 63-year-old male with past medical history significant for nonalcoholic liver cirrhosis, hepatic encephalopathy, chronic ascites, esophageal varices, chronic kidney disease, diastolic CHF, and paroxysmal atrial fibrillation that presented to the emergency room with shortness of breath. 1. Small bowel obstruction. Abdominal x-ray per radiologist shows early, incomplete small bowel instruction, no visible free air. CT abdomen and pelvis per radiologist shows distal small bowel traction, right pleural effusion, abdominal pelvic ascites similar to that seen previously. Patient is NPO except ice chips. Surgery following, recommendations appreciated. Continue IV fluids. NGT if patient has vomiting. 2. Abdominal pain. Secondary to ascites from liver cirrhosis and SBO. Also with constipation. S/P pleurx cath. Continue with NPO and IV fluids. Surgery following, recommendations appreciated. 3. Ascites secondary to non alcoholic liver cirrhosis. Torsemide held secondary to KEYUR. Continue with lactulose and xifaxin. Continue propranolol. S/P paracentesis with 11,200ml removed. S/P albumin. S/P pleurx cath placement 08/16/18. Abdominal Doppler ultrasound per radiologist showed patent portal vein with hepatopetal flow. GI recommendations appreciated. 4. Dyspnea. Likely secondary to ascites/pleural effusion. Dyspnea resolved. Torsemide held secondary to KEYUR. S/P paracentesis with 11,200ml removed. S/P pleurx cath placement. Continue to monitor. Chest xray per radiologist showedmoderate right pleural effusion. 5. Moderate right pleural effusion. No shortness of breath. Pleurx cath in place. Torsemide held for now secondary to KEYUR. 6. KEYUR on CKD. Nephrology following, recommendations appreciated. Creatinine uptrending. Torsemide held. Continue IV fluids. Continue to monitor 7. Chronic Anemia. H&H stable. Patient asymptomatic. Continue to mointor CBC. 8. Thrombocytopenia. Likely secondary to liver cirrhosis. Stable. Continue to monitor. 9. History of hepatic encephalopathy. No encephalopathy currently. Continue lact ulose and Xifaxan. 10. Anxiety. Continue Xanax at bedtime. 11. GI/DVT prophylaxis. Pepcid and SCDs. Case was discussed in detail with the patient regarding current diagnosis and treatment plan. All questions were answered.
[2018-08-20] MEDS: Albumin Human 25% (12.5 gm/50 ml) IV SCH ×2 (16:54→21:47)
--- NOTE | 2018-08-20 22:29 | CP.PCM.PN ---
Subjective - Date & Time of Evaluation Date of Evaluation: 08/20/18 Time of Evaluation: 14:00 - Subjective Subjective: Patient still with abd pain; not vomiting today; no BM; Objective - Vital Signs/Intake and Output Vital Signs (last 24 hours): Temp Pulse Resp BP Pulse Ox 98.1 F 77 18 123/72 97 08/20/18 14:00 08/20/18 14:00 08/20/18 14:00 08/20/18 14:00 08/20/18 14:00 Intake and Output: 08/20/18 08/21/18 18:59 06:59 Output Total 200 Balance -200 - Medications Medications: Current Medications Albumin Human (Albumin Human 25% (12.5 Gm/50 Ml)) 12.5 gm IV Q6H [facility] Stop: 08/21/18 08:31 Last Admin: 08/20/18 21:47 Dose: 12.5 gm Albuterol/Ipratropium (Duoneb 3 Mg/0.5 Mg (3 Ml) Ud) 3 ml IH [id number] [facility] Last Admin: 08/20/18 20:02 Dose: 3 ml Bisacodyl (Dulcolax) 10 mg RC ONCE ONE Last Admin: 08/15/18 14:13 Dose: Not Given Famotidine (Pepcid) 20 mg IVP DAILY [facility] Last Admin: 08/20/18 15:21 Dose: 20 mg Sodium Chloride (Sodium Chloride 0.9%) 1,000 mls @ 100 mls/hr IV .Q10H [facility] Lactulose (Enulose) 20 gm PO BID [facility] Last Admin: 08/20/18 17:04 Dose: Not Given Lorazepam (Ativan) 0.5 mg IVP Q6H PRN; Protocol PRN Reason: Anxiety Midodrine (Proamatine) 10 mg PO TID [facility] Last Admin: 08/20/18 20:08 Dose: Not Given Ondansetron HCl (Zofran Inj) 4 mg IVP Q6H PRN PRN Reason: Nausea/Vomiting Last Admin: 08/20/18 00:29 Dose: 4 mg Propranolol HCl (Inderal) 10 mg PO BID [facility] Last Admin: 08/20/18 20:08 Dose: Not Given Rifaximin (Xifaxan) 550 mg PO BID [facility]; Protocol Last Admin: 08/20/18 20:08 Dose: Not Given - Labs Labs: 08/20/18 07:00 08/20/18 07:00 PT 16.1 SECONDS (9.4-12.5) H 08/11/18 02:05 INR 1.40 08/11/18 02:05 - Constitutional Appears: Non-toxic, Cachectic - Eye Exam Eye Exam: absent: Scleral icterus - Respiratory Exam Respiratory Exam: Clear to Ausculation Bilateral. absent: Respiratory Distress - Cardiovascular Exam Cardiovascular Exam: RRR, +S1, +S2. absent: Gallop - GI/Abdominal Exam GI & Abdominal Exam: Soft, Tenderness - Extremities Exam Additional comments: no leg edema; - Neurological Exam Neurological Exam: Alert, Awake - Psychiatric Exam Psychiatric exam: absent: Agitated - Skin Skin Exam: Warm. absent: Cyanosis Assessment and Plan (1) KEYUR (acute kidney injury) Assessment & Plan: KEYUR, likely pre-renal etiology in the setting of decreased PO intake; -checking urine Na, creat; -increasing NS to 100 cc/hr; -starting IV albumin 25% q6h x 4; -holding diuretics; -avoid nephrotoxic agents (phosphate enema, NSAIDs); Status: Acute (2) Ascites Status: Acute (3) CKD (chronic kidney disease) Status: Chronic
--- NOTE | 2018-08-21 03:14 | CP.PCM.PN ---
Subjective - Date & Time of Evaluation Date of Evaluation: 08/21/18 Time of Evaluation: 03:05 - Subjective Subjective: Code Star Note Patient was found kneeling on floor attempting to use the restroom to the best of his recollection. He soiled himself on the floor, crouched down kneeling on floor. He states he was in a deep sleep as he usually asks the nursing staff for help. He alerted the nursing staff by ringing the miller on the bed once he was aware. He was examined head to toe, no signs of trauma. He denied any acute complaints. He is AAOx3. He was re-orientated and counselled on asking for help if needing any assistance. Objective - Vital Signs/Intake and Output Vital Signs (last 24 hours): Temp Pulse Resp BP Pulse Ox 98.1 F 77 18 123/72 97 08/20/18 14:00 08/20/18 14:00 08/20/18 14:00 08/20/18 14:00 08/20/18 14:00 Intake and Output: 08/20/18 08/21/18 18:59 06:59 Output Total 200 Balance -200 - Medications Medications: Current Medications Albumin Human (Albumin Human 25% (12.5 Gm/50 Ml)) 12.5 gm IV Q6H [facility] Stop: 08/21/18 08:31 Last Admin: 08/20/18 21:47 Dose: 12.5 gm Albuterol/Ipratropium (Duoneb 3 Mg/0.5 Mg (3 Ml) Ud) 3 ml IH [id number] [facility] Last Admin: 08/20/18 20:02 Dose: 3 ml Bisacodyl (Dulcolax) 10 mg RC ONCE ONE Last Admin: 08/15/18 14:13 Dose: Not Given Famotidine (Pepcid) 20 mg IVP DAILY [facility] Last Admin: 08/20/18 15:21 Dose: 20 mg Sodium Chloride (Sodium Chloride 0.9%) 1,000 mls @ 100 mls/hr IV .Q10H [facility] Lactulose (Enulose) 20 gm PO BID [facility] Last Admin: 08/20/18 17:04 Dose: Not Given Lorazepam (Ativan) 0.5 mg IVP Q6H PRN; Protocol PRN Reason: Anxiety Last Admin: 08/20/18 22:44 Dose: 0.5 mg Midodrine (Proamatine) 10 mg PO TID [facility] Last Admin: 08/20/18 20:08 Dose: Not Given Ondansetron HCl (Zofran Inj) 4 mg IVP Q6H PRN PRN Reason: Nausea/Vomiting Last Admin: 08/20/18 00:29 Dose: 4 mg Propranolol HCl (Inderal) 10 mg PO BID [facility] Last Admin: 08/20/18 20:08 Dose: Not Given Rifaximin (Xifaxan) 550 mg PO BID [facility]; Protocol Last Admin: 08/20/18 20:08 Dose: Not Given - Labs Labs: 08/20/18 07:00 08/20/18 07:00 PT 16.1 SECONDS (9.4-12.5) H 08/11/18 02:05 INR 1.40 08/11/18 02:05 - Constitutional Appears: No Acute Distress - Head Exam Head Exam: ATRAUMATIC, NORMAL INSPECTION, NORMOCEPHALIC - Eye Exam Eye Exam: EOMI, Normal appearance, PERRL Pupil Exam: NORMAL ACCOMODATION, PERRL - ENT Exam ENT Exam: Mucous Membranes Moist, Normal Exam - Respiratory Exam Respiratory Exam: Clear to Ausculation Bilateral, NORMAL BREATHING PATTERN - Cardiovascular Exam Cardiovascular Exam: REGULAR RHYTHM, +S1, +S2. absent: Murmur - GI/Abdominal Exam GI & Abdominal Exam: Soft, Normal Bowel Sounds. absent: Tenderness - Extremities Exam Extremities Exam: Full ROM, Normal Capillary Refill, Normal Inspection. absent: Joint Swelling, Pedal Edema - Back Exam Back Exam: NORMAL INSPECTION - Neurological Exam Neurological Exam: Alert, Awake, CN II-XII Intact, Oriented x3 - Psychiatric Exam Psychiatric exam: Normal Affect, Normal Mood - Skin Skin Exam: Dry, Intact, Normal Color, Warm
[2018-08-21] MEDS: Albumin Human 25% (12.5 gm/50 ml) IV SCH ×3 (03:26→20:20)
[2018-08-21] MEDS: Albuterol-Ipratrop 3 mg / 0.5 (3 ml) UD IH SCH ×4 (04:52→20:45)
--- NOTE | 2018-08-21 05:28 | CP.PCM.PN ---
<Ezequiel Alcocer - Last Filed: 08/21/18 13:51> Subjective - Date & Time of Evaluation Date of Evaluation: 08/21/18 Time of Evaluation: 05:35 - Subjective Subjective: Ezequiel Alcocer DO PGY-1, Internal Medicine Resident. Hospitalist Progress Note Patient seen and examined at bedside. Patient is resting in bed, awake and oriented. Had large bowel movement last night, diarrhea with no blood. His abdominal discomfort improved after having BM and he wants to eat. Code star activated last night on his attempt to go to the bathroom and fell on the floor. no trauma or injury reported, no complains related to the fall. Patient denied chest pain, palpitation, fever, chills Objective - Vital Signs/Intake and Output Vital Signs (last 24 hours): Temp Pulse Resp BP Pulse Ox 98.2 F 74 18 107/61 98 08/20/18 22:00 08/20/18 22:00 08/20/18 22:00 08/20/18 22:00 08/20/18 22:00 Intake and Output: 08/20/18 08/21/18 18:59 06:59 Output Total 200 Balance -200 - Medications Medications: Current Medications Albumin Human (Albumin Human 25% (12.5 Gm/50 Ml)) 12.5 gm IV Q6H [facility] Stop: 08/21/18 08:31 Last Admin: 08/21/18 03:26 Dose: 12.5 gm Albuterol/Ipratropium (Duoneb 3 Mg/0.5 Mg (3 Ml) Ud) 3 ml IH [id number] [facility] Last Admin: 08/21/18 04:52 Dose: 3 ml Bisacodyl (Dulcolax) 10 mg RC ONCE ONE Last Admin: 08/15/18 14:13 Dose: Not Given Famotidine (Pepcid) 20 mg IVP DAILY [facility] Last Admin: 08/20/18 15:21 Dose: 20 mg Sodium Chloride (Sodium Chloride 0.9%) 1,000 mls @ 100 mls/hr IV .Q10H [facility] Lactulose (Enulose) 20 gm PO BID [facility] Last Admin: 08/20/18 17:04 Dose: Not Given Lorazepam (Ativan) 0.5 mg IVP Q6H PRN; Protocol PRN Reason: Anxiety Last Admin: 08/20/18 22:44 Dose: 0.5 mg Midodrine (Proamatine) 10 mg PO TID [facility] Last Admin: 08/20/18 20:08 Dose: Not Given Ondansetron HCl (Zofran Inj) 4 mg IVP Q6H PRN PRN Reason: Nausea/Vomiting Last Admin: 08/20/18 00:29 Dose: 4 mg Propranolol HCl (Inderal) 10 mg PO BID [facility] Last Admin: 08/20/18 20:08 Dose: Not Given Rifaximin (Xifaxan) 550 mg PO BID [facility]; Protocol Last Admin: 08/20/18 20:08 Dose: Not Given - Labs Labs: 08/20/18 07:00 08/20/18 07:00 PT 16.1 SECONDS (9.4-12.5) H 08/11/18 02:05 INR 1.40 08/11/18 02:05 - Constitutional Appears: Well, No Acute Distress, Cachectic, Chronically Ill - Head Exam Head Exam: ATRAUMATIC, NORMAL INSPECTION, NORMOCEPHALIC - Eye Exam Eye Exam: Normal appearance, PERRL Pupil Exam: NORMAL ACCOMODATION - ENT Exam ENT Exam: Mucous Membranes Dry, Normal Oropharynx - Neck Exam Neck Exam: Normal Inspection - Respiratory Exam Respiratory Exam: Clear to Ausculation Bilateral, NORMAL BREATHING PATTERN - Cardiovascular Exam Cardiovascular Exam: REGULAR RHYTHM, +S1, +S2. absent: Murmur - GI/Abdominal Exam GI & Abdominal Exam: Soft, Normal Bowel Sounds. absent: Tenderness, Organomegaly Additional comments: indwelling abd cath in palce, no signs of infection - Extremities Exam Extremities Exam: Full ROM, Normal Capillary Refill, Normal Inspection. absent: Joint Swelling, Pedal Edema - Back Exam Back Exam: NORMAL INSPECTION - Neurological Exam Neurological Exam: Alert, Awake, CN II-XII Intact, Normal Gait, Oriented x3 - Psychiatric Exam Psychiatric exam: Normal Affect, Normal Mood - Skin Skin Exam: Dry, Intact, Normal Color, Warm Assessment and Plan - Assessment and Plan (Free Text) Assessment: Patient is a 63 y/o M with PMHx of Liver Cirrhosis with chronic ascites, hepatic encephalopathy, esophageal varices, CKD stage III, HTN, CHF-pEF, and Afib who pr esented to the ED with SOB and abdominal distension and pressure. Patient s/p paracentesis with 11.2 L of fluid, SOB improved. On diuretics. Patient went for pleurx catheter placement yesterday for future papacentesis. Patient had BM last night Plan: SOB and Abdominal Distension 2/2 Ascites from Decompensated Liver Cirrhosis - improving - Abdominal US (08/12): patent portal vein with hepatopetal flow. No thrombus/obstruction. Moderate ascites. - As per GI, patient may make appointment with his primary GI (Dr. Naranjo) for outpatient follow up. - c/w Albumin 25% 12.5g IV q6H, lactulose, xifaxin - s/p large volume paracentesis (08/12): 11.2 L fluid removed by IR. - CXR:moderate right pleural effusion - c/w duonebs - History of frequent paracentesis due to chronic cirrhosis. patient f/u in [facility] - c/w oxycodone 5 mg q6 prn for pain control - hold torsemide, can restart once having adequate PO intake. as per nephrology - d/c telemetry - s/p pleurx abdominal catheter: 1200cc drained on 08/19 - GI consulted for d/c instructions Constipation - lactulose increased to 20 mg BID - patient does not want to take more lactulose because of excessive diarrhea - patient was prescribed ducolax but refused to take - Patient agreed to took one dose mag-hydroxide yesterday with no bowel movement - Mg-citrate, tap water emema were given with no response - abd XR showed early, incomplete SBO. no visible free air - surgery consulted: Maintain NPO, anti-emetics PRN, possible NGT if vomits. No surgical plans at this time - CT A/P with oral contrast: distal SBO - patient had BM last night. abdominal discomfort improved. wants to eat, clear liquid for now to be advanced as tolerated KEYUR on CKD Stage III - pre-renal due to poor po intake - NS at 60 cc/hr - avoid nephrotoxic medications - torsemide held for poor oral intake - PTH and Ca are normal Hx of Hepatic encephalopathy - AAOx3 on exam - c/w rifaxamin and lactulose - ammonia level was normal Anemia -likely due to chronic disease/CKD -H/H stable -continue monitoring -may benefit from EPO as per nephro note Deconditioning -As per PT eval: NONA -Per social welfare research worker: patient unable to pay and pt. will go home upon d/c -Palliative care consulted: continue pain meds and f/u in [facility] for ascites and liver cirrhosis Hx of HTN - normotensive s/p paracentesis - monitor BP Anxiety -continue xanax at bedtime PPX/Diet - GI ppx: pepcid - DVT ppx: SCDs -clear liquid diet Case reviewed and plan discussed with attending physician Dr Rosales <Felicita Rosales - Last Filed: 08/24/18 08:03> Objective - Vital Signs/Intake and Output Vital Signs (last 24 hours): Temp Pulse Resp BP Pulse Ox 97.8 F 78 18 113/69 97 08/23/18 22:34 08/23/18 22:34 08/23/18 22:34 08/23/18 22:34 08/23/18 22:34 - Medications Medications: Current Medications Albuterol/Ipratropium (Duoneb 3 Mg/0.5 Mg (3 Ml) Ud) 3 ml IH [id number] [facility] Last Admin: 08/24/18 01:49 Dose: 3 ml Famotidine (Pepcid) 20 mg PO DAILY [facility] Last Admin: 08/23/18 09:38 Dose: 20 mg Sodium Chloride (Sodium Chloride 0.9%) 1,000 mls @ 50 mls/hr IV .Q20H [facility] Iron Sucrose 100 mg/ Sodium (Chloride) 105 mls @ 210 mls/hr IVPB DAILY [facility] Stop: 08/28/18 10:29 Lactulose (Enulose) 20 gm PO BID [facility] Last Admin: 08/22/18 11:35 Dose: Not Given Lorazepam (Ativan) 0.5 mg IVP Q6H PRN; Protocol PRN Reason: Anxiety Last Admin: 08/21/18 22:33 Dose: 0.5 mg Midodrine (Proamatine) 10 mg PO TID [facility] Last Admin: 08/23/18 18:47 Dose: 10 mg Ondansetron HCl (Zofran Inj) 4 mg IVP Q6H PRN PRN Reason: Nausea/Vomiting Last Admin: 08/20/18 00:29 Dose: 4 mg Propranolol HCl (Inderal) 10 mg PO BID [facility] Last Admin: 08/23/18 18:46 Dose: 10 mg Rifaximin (Xifaxan) 550 mg PO BID [facility]; Protocol - Labs Labs: 08/24/18 06:15 08/24/18 06:15 PT 16.1 SECONDS (9.4-12.5) H 08/11/18 02:05 INR 1.40 08/11/18 02:05 Attending/Attestation - Attestation I have personally seen and examined this patient.: Yes I have fully participated in the care of the patient.: Yes I have reviewed all pertinent clinical information, including history, physical exam and plan: Yes Notes (Text): 08/24/18 07:53 Attending note; Patient seen and examined with resident. Patient is alert and awake. Abdominal distention is improved. Complaining of abdominal discomfort because of pleurex catheter. Tolerating liquids. Still with poor appetite. Complaining of generalized weakness. Denies any fevers, chills. Patient is 63-year-old male with past medical history significant for nonalcoholic liver cirrhosis, hepatic encephalopathy, chronic ascites, esophageal varices, chronic kidney disease, diastolic CHF, and paroxysmal atrial fibrillation that presented to the emergency room with shortness of breath. 1. Ascites secondary to non alcoholic liver cirrhosis. Status post Pleurx catheter. Instructions to drain 1.2 L every 4 days. Nursing staff informed. Decreased abdominal distention. 2. Abdominal discomfort; secondary to catheter placement. No fevers or chills. 3. History of hepatic encephalopathy; Continue with lactulose and xifaxin. 4.history of esophageal varices and GI bleed in the past. Continue propranolol. 5.Recurrent ascites; S/P pleurx cath placement 08/16/18. Abdominal Doppler ultrasound showed patent portal vein with hepatopetal flow. GI recommendations appreciated. Needs outpatient follow up with [facility] transplant clinic. 6. Moderate right pleural effusion. We will start low-dose of diuretics upon discharge. 7. KEYUR on CKD. Nephrology following, recommendations appreciated.follow up with nephrology closely. 8. GI/DVT prophylaxis. Pepcid and SCDs. PT evaluation requested. Patient's prognosis is very guarded. Palliative care evaluation requested. Case discussed with egg caser for discharge planning.
[2018-08-21 07:08] LABS: BASO # 0.01 K/mm3 (0.0-2.0); BASO % 0.1 % (0.0-3.0); EOS # 0.1 (0.0-0.7); EOS % 0.8 % (1.5-5.0); GRAN # 5.56 (1.4-6.5); GRAN % 77.1 % (50.0-68.0); HEMOGLOBIN 10.4 g/dL (14.0-18.0); LYMPH # 1.1 (1.2-3.4); LYMPH % 14.7 % (22.0-35.0); MEAN CELL VOLUME 100.3 fl (80.0-105.0); MEAN CORPUSCULAR HEMOGLOBIN 32.9 pg (25.0-35.0); MEAN CORPUSCULAR HGB CONC 32.8 g/dl (31.0-37.0); MEAN PLATELET VOLUME 9.2 fl (7.0-11.0); MONO # 0.5 (0.1-0.6); MONO % 7.3 % (1.0-6.0); RBC 3.16 10^6/uL (3.5-6.1); RED CELL DISTRIBUTION WIDTH 19.1 % (11.5-14.5); WHITE BLOOD COUNT 7.2 10^3/ul (4.5-11.0)
[2018-08-21 07:16] LABS: ALB/GLOB RATIO 0.8 (1.1-1.8); ALBUMIN 3.2 g/dL (3.0-4.8); CALCIUM 8.8 mg/dL (8.4-10.5)
--- NOTE | 2018-08-21 08:23 | CP.PCM.PN ---
Subjective - Date & Time of Evaluation Date of Evaluation: 08/21/18 Time of Evaluation: 08:20 - Subjective Subjective: General Surgery progress note for Dr. Zapien Patient seen and examined at bedside. No acute events overnight. Patient states that he had a bowel movement last night and would like to start eating. Denies fevers, chills, chest pain, or SOB. Objective - Vital Signs/Intake and Output Vital Signs (last 24 hours): Temp Pulse Resp BP Pulse Ox 98.2 F 74 18 107/61 98 08/20/18 22:00 08/20/18 22:00 08/20/18 22:00 08/20/18 22:00 08/20/18 22:00 Intake and Output: 08/21/18 08/21/18 06:59 18:59 Intake Total 180 Output Total 3 Balance 177 - Medications Medications: Current Medications Albumin Human (Albumin Human 25% (12.5 Gm/50 Ml)) 12.5 gm IV Q6H [facility] Stop: 08/21/18 08:31 Last Admin: 08/21/18 03:26 Dose: 12.5 gm Albuterol/Ipratropium (Duoneb 3 Mg/0.5 Mg (3 Ml) Ud) 3 ml IH [id number] [facility] Last Admin: 08/21/18 04:52 Dose: 3 ml Bisacodyl (Dulcolax) 10 mg RC ONCE ONE Last Admin: 08/15/18 14:13 Dose: Not Given Famotidine (Pepcid) 20 mg IVP DAILY [facility] Last Admin: 08/20/18 15:21 Dose: 20 mg Sodium Chloride (Sodium Chloride 0.9%) 1,000 mls @ 100 mls/hr IV .Q10H [facility] Lactulose (Enulose) 20 gm PO BID [facility] Last Admin: 08/20/18 17:04 Dose: Not Given Lorazepam (Ativan) 0.5 mg IVP Q6H PRN; Protocol PRN Reason: Anxiety Last Admin: 08/20/18 22:44 Dose: 0.5 mg Midodrine (Proamatine) 10 mg PO TID [facility] Last Admin: 08/20/18 20:08 Dose: Not Given Ondansetron HCl (Zofran Inj) 4 mg IVP Q6H PRN PRN Reason: Nausea/Vomiting Last Admin: 08/20/18 00:29 Dose: 4 mg Propranolol HCl (Inderal) 10 mg PO BID [facility] Last Admin: 08/20/18 20:08 Dose: Not Given - Labs Labs: 08/21/18 06:30 08/21/18 06:30 PT 16.1 SECONDS (9.4-12.5) H 08/11/18 02:05 INR 1.40 08/11/18 02:05 - Constitutional Appears: Well, Non-toxic, No Acute Distress - Head Exam Head Exam: ATRAUMATIC, NORMOCEPHALIC - Eye Exam Eye Exam: Normal appearance - ENT Exam ENT Exam: Mucous Membranes Moist - Respiratory Exam Respiratory Exam: NORMAL BREATHING PATTERN. absent: Accessory Muscle Use, Respiratory Distress - Cardiovascular Exam Cardiovascular Exam: RRR - GI/Abdominal Exam GI & Abdominal Exam: Soft. absent: Distended, Guarding, Tenderness - Extremities Exam Extremities Exam: Normal Inspection - Neurological Exam Neurological Exam: Alert, Awake, Oriented x3 - Psychiatric Exam Psychiatric exam: Normal Affect, Normal Mood - Skin Skin Exam: Dry, Intact, Normal Color, Warm Assessment and Plan - Assessment and Plan (Free Text) Assessment: 63 year old male w/ cirrhosis, ascities w/ aspira catheter, KEYUR vs. Hepatorenal syndrome, R Pleural effusion, and abdominal pain/distension related to ileus vs. SBO. Plan: - Advance to liquid diet - No surgical plans at this time - Continue medical management as per primary team Discussed case with Dr. Rupali Bassett DO PGY-1
--- NOTE | 2018-08-21 19:57 | CP.PCM.PN ---
Subjective - Date & Time of Evaluation Date of Evaluation: 08/21/18 Time of Evaluation: 10:00 - Subjective Subjective: Patient tolerating diet today; had large BM; no nausea/vomiting; Objective - Vital Signs/Intake and Output Vital Signs (last 24 hours): Temp Pulse Resp BP Pulse Ox 98.9 F 73 18 112/67 100 08/21/18 14:00 08/21/18 14:00 08/21/18 14:00 08/21/18 14:00 08/21/18 14:00 - Medications Medications: Current Medications Albumin Human (Albumin Human 25% (12.5 Gm/50 Ml)) 12.5 gm IV Q6H [facility] Stop: 08/22/18 07:46 Albuterol/Ipratropium (Duoneb 3 Mg/0.5 Mg (3 Ml) Ud) 3 ml IH [id number] [facility] Last Admin: 08/21/18 13:28 Dose: 3 ml Famotidine (Pepcid) 20 mg PO DAILY [facility] Sodium Chloride (Sodium Chloride 0.9%) 1,000 mls @ 100 mls/hr IV .Q10H [facility] Lactulose (Enulose) 20 gm PO BID [facility] Last Admin: 08/21/18 17:18 Dose: Not Given Lorazepam (Ativan) 0.5 mg IVP Q6H PRN; Protocol PRN Reason: Anxiety Last Admin: 08/20/18 22:44 Dose: 0.5 mg Midodrine (Proamatine) 10 mg PO TID [facility] Last Admin: 08/21/18 17:18 Dose: Not Given Ondansetron HCl (Zofran Inj) 4 mg IVP Q6H PRN PRN Reason: Nausea/Vomiting Last Admin: 08/20/18 00:29 Dose: 4 mg Propranolol HCl (Inderal) 10 mg PO BID [facility] Last Admin: 08/21/18 17:18 Dose: Not Given - Labs Labs: 08/21/18 06:30 08/21/18 06:30 PT 16.1 SECONDS (9.4-12.5) H 08/11/18 02:05 INR 1.40 08/11/18 02:05 - Constitutional Appears: Non-toxic, No Acute Distress, Cachectic - Respiratory Exam Respiratory Exam: Clear to Ausculation Bilateral. absent: Respiratory Distress - Cardiovascular Exam Cardiovascular Exam: RRR, +S1, +S2 - GI/Abdominal Exam GI & Abdominal Exam: Soft. absent: Distended - Extremities Exam Additional comments: no leg edema; - Neurological Exam Neurological Exam: Alert, Awake - Psychiatric Exam Psychiatric exam: Normal Mood. absent: Agitated - Skin Skin Exam: Warm. absent: Cyanosis Assessment and Plan (1) KEYUR (acute kidney injury) Assessment & Plan: Has long history of hemodynamic fluctuations in serum creatinine; however, no significant improvement this time even after volume expansion with IV albumin; -will continue IV albumin 25% q6h -increase NS to 100 cc/hr (only running at 50 cc/hr currently); -urine lytes ordered -if no improvement in renal function, need to consider hepatorenal syndrome; Status: Acute (2) Ascites Assessment & Plan: Holding diuretics indefinitely; drain through pleurx catheter as needed; Status: Acute (3) CKD (chronic kidney disease) Status: Chronic
[2018-08-21] MEDS: Sodium Chloride 0.9% 1,000 ML IV SCH ×2 (20:30→23:25)
[2018-08-22] MEDS: Albumin Human 25% (12.5 gm/50 ml) IV SCH ×2 (02:30→14:57)
[2018-08-22] MEDS: Albuterol-Ipratrop 3 mg / 0.5 (3 ml) UD IH SCH ×4 (04:37→19:28)
--- NOTE | 2018-08-22 06:01 | CP.PCM.PN ---
<Ezequiel Alcocer - Last Filed: 08/22/18 14:48> Subjective - Date & Time of Evaluation Date of Evaluation: 08/22/18 Time of Evaluation: 06:20 - Subjective Subjective: Ezequiel Alcocer DO PGY-1, Internal Medicine Resident. Hospitalist Progress Note Patient seen and examined at bedside. Patient is resting in bed, awake and oriented. His abdominal discomfort improved after having BM and tolerating his diet. Patient denied chest pain, palpitation, fever, chills Objective - Vital Signs/Intake and Output Vital Signs (last 24 hours): Temp Pulse Resp BP Pulse Ox 98.9 F 73 18 114/65 100 08/21/18 14:00 08/21/18 14:00 08/21/18 14:00 08/21/18 20:26 08/21/18 14:00 Intake and Output: 08/21/18 08/22/18 18:59 06:59 Intake Total 540 Output Total 400 Balance 140 - Medications Medications: Current Medications Albumin Human (Albumin Human 25% (12.5 Gm/50 Ml)) 12.5 gm IV Q6H [facility] Stop: 08/22/18 07:46 Last Admin: 08/22/18 02:30 Dose: 12.5 gm Albuterol/Ipratropium (Duoneb 3 Mg/0.5 Mg (3 Ml) Ud) 3 ml IH [id number] [facility] Last Admin: 08/22/18 04:37 Dose: Not Given Famotidine (Pepcid) 20 mg PO DAILY [facility] Sodium Chloride (Sodium Chloride 0.9%) 1,000 mls @ 100 mls/hr IV .Q10H [facility] Last Admin: 08/21/18 23:25 Dose: 100 mls/hr Lactulose (Enulose) 20 gm PO BID [facility] Last Admin: 08/21/18 17:18 Dose: Not Given Lorazepam (Ativan) 0.5 mg IVP Q6H PRN; Protocol PRN Reason: Anxiety Last Admin: 08/21/18 22:33 Dose: 0.5 mg Midodrine (Proamatine) 10 mg PO TID [facility] Last Admin: 08/21/18 20:26 Dose: 10 mg Ondansetron HCl (Zofran Inj) 4 mg IVP Q6H PRN PRN Reason: Nausea/Vomiting Last Admin: 08/20/18 00:29 Dose: 4 mg Propranolol HCl (Inderal) 10 mg PO BID [facility] Last Admin: 08/21/18 20:26 Dose: 10 mg - Labs Labs: 08/21/18 06:30 08/21/18 06:30 PT 16.1 SECONDS (9.4-12.5) H 08/11/18 02:05 INR 1.40 08/11/18 02:05 - Additional Findings Additional findings: - Constitutional Appears: Well, No Acute Distress, Cachectic, Chronically Ill - Head Exam Head Exam: ATRAUMATIC, NORMAL INSPECTION, NORMOCEPHALIC - Eye Exam Eye Exam: Normal appearance, PERRL Pupil Exam: NORMAL ACCOMODATION - ENT Exam ENT Exam: Mucous Membranes Dry, Normal Oropharynx - Neck Exam Neck Exam: Normal Inspection - Respiratory Exam Respiratory Exam: Clear to Ausculation Bilateral, NORMAL BREATHING PATTERN - Cardiovascular Exam Cardiovascular Exam: REGULAR RHYTHM, +S1, +S2. absent: Murmur - GI/Abdominal Exam GI & Abdominal Exam: Soft, Normal Bowel Sounds. absent: Tenderness, Organomegaly Additional comments: indwelling abd cath in palce, no signs of infection - Extremities Exam Extremities Exam: Full ROM, Normal Capillary Refill, Normal Inspection. absent: Joint Swelling, Pedal Edema - Back Exam Back Exam: NORMAL INSPECTION - Neurological Exam Neurological Exam: Alert, Awake, CN II-XII Intact, Oriented - Psychiatric Exam Psychiatric exam: Normal Affect, Normal Mood - Skin Skin Exam: Dry, Intact, Normal Color, Warm Assessment and Plan - Assessment and Plan (Free Text) Assessment: Patient is a 63 y/o M with PMHx of Liver Cirrhosis with chronic ascites, hepatic encephalopathy, esophageal varices, CKD stage III, HTN, CHF-pEF, and Afib who presented to the ED with SOB and abdominal distension and pressure. Patient s/p paracentesis with 11.2 L of fluid, SOB improved. On diuretics. S/P pleurx catheter placement for future papacentesis. Clinically improving Plan: SOB and Abdominal Distension 2/2 Ascites from Decompensated Liver Cirrhosis - improving - Abdominal US (08/12): patent portal vein with hepatopetal flow. No thrombus/obstruction. Moderate ascites. - As per GI, patient may make appointment with his primary GI (Dr. Naranjo) for outpatient follow up. - c/w Albumin 25% 12.5g IV q6H, lactulose, xifaxin - s/p large volume paracentesis (08/12): 11.2 L fluid removed by IR. - CXR:moderate right pleural effusion - c/w duonebs - History of frequent paracentesis due to chronic cirrhosis. patient f/u in [facility] - c/w oxycodone 5 mg q6 prn for pain control - d/c telemetry - s/p pleurx abdominal catheter: 1200cc drained on 08/19 and 08/22 - GI consulted for d/c instructions: f/u in [facility] liver clinic. continue lactulose and albumin. close follow up with instructions on monitoring ascitic ouptut KEYUR on CKD Stage III - pre-renal due to poor po intake - BUN/Cr fluctuationg without improvement using albumin for fluid expansion - NS at 100 cc/hr - avoid nephrotoxic medications - PTH and Ca are normal - As per Nephrology note: Holding diuretics indefinitely; drain through pleurx catheter as needed. increase NS to 100 cc/hr. continue IV albumin 25% q6h Constipation- improved - lactulose increased to 20 mg BID - patient does not want to take more lactulose because of excessive diarrhea - patient was prescribed ducolax but refused to take - Patient agreed to took one dose mag-hydroxide yesterday with no bowel movement - Mg-citrate, tap water emema were given with no response - abd XR showed early, incomplete SBO. no visible free air - CT A/P with oral contrast: distal SBO - patient had BM. abdominal discomfort improved. tolerating hepatic diet Hx of Hepatic encephalopathy - AAOx3 on exam - c/w rifaxamin and lactulose - ammonia level was normal Anemia -likely due to chronic disease/CKD -H/H stable -continue monitoring -may benefit from EPO as per nephro note Deconditioning -As per PT eval: NONA -Per health care social worker: patient unable to pay and pt. will go home upon d/c -Palliative care consulted: continue pain meds and f/u in [facility] for ascites and liver cirrhosis Hx of HTN - normotensive s/p paracentesis - monitor BP Anxiety -continue xanax at bedtime PPX/Diet - GI ppx: pepcid - DVT ppx: SCDs - hepatic diet as tolerated Case reviewed and plan discussed with attending physician Dr Rosales <Felicita Rosales - Last Filed: 08/24/18 08:08> Objective - Vital Signs/Intake and Output Vital Signs (last 24 hours): Temp Pulse Resp BP Pulse Ox 97.8 F 78 18 113/69 97 08/23/18 22:34 08/23/18 22:34 08/23/18 22:34 08/23/18 22:34 08/23/18 22:34 - Medications Medications: Current Medications Albuterol/Ipratropium (Duoneb 3 Mg/0.5 Mg (3 Ml) Ud) 3 ml IH [id number] [facility] Last Admin: 08/24/18 01:49 Dose: 3 ml Famotidine (Pepcid) 20 mg PO DAILY [facility] Last Admin: 08/23/18 09:38 Dose: 20 mg Sodium Chloride (Sodium Chloride 0.9%) 1,000 mls @ 50 mls/hr IV .Q20H [facility] Iron Sucrose 100 mg/ Sodium (Chloride) 105 mls @ 210 mls/hr IVPB DAILY [facility] Stop: 08/28/18 10:29 Lactulose (Enulose) 20 gm PO BID [facility] Last Admin: 08/22/18 11:35 Dose: Not Given Lorazepam (Ativan) 0.5 mg IVP Q6H PRN; Protocol PRN Reason: Anxiety Last Admin: 08/21/18 22:33 Dose: 0.5 mg Midodrine (Proamatine) 10 mg PO TID [facility] Last Admin: 08/23/18 18:47 Dose: 10 mg Ondansetron HCl (Zofran Inj) 4 mg IVP Q6H PRN PRN Reason: Nausea/Vomiting Last Admin: 08/20/18 00:29 Dose: 4 mg Propranolol HCl (Inderal) 10 mg PO BID [facility] Last Admin: 08/23/18 18:46 Dose: 10 mg Rifaximin (Xifaxan) 550 mg PO BID [facility]; Protocol - Labs Labs: 08/24/18 06:15 08/24/18 06:15 PT 16.1 SECONDS (9.4-12.5) H 08/11/18 02:05 INR 1.40 08/11/18 02:05 Attending/Attestation - Attestation I have personally seen and examined this patient.: Yes I have fully participated in the care of the patient.: Yes I have reviewed all pertinent clinical information, including history, physical exam and plan: Yes Notes (Text): 08/24/18 08:04 Attending note; Patient seen and examined with resident. Patient is alert and awake. Denies any nausea, vomiting. Patient is 63-year-old male with past medical history significant for nonalcoholic liver cirrhosis, hepatic encephalopathy, chronic ascites, esophageal varices, chronic kidney disease, diastolic CHF, and paroxysmal atrial fibrillation that presented to the emergency room with shortness of breath. 1. Ascites secondary to non alcoholic liver cirrhosis. Status post Pleurx catheter. Instructions to drain 1.2 L every 4 days. AScitic Fluid removed today.Blood pressure is stable. Continue albumin. Decreased abdominal distention. 2. Abdominal discomfort; secondary to catheter placement. No fevers or chills. 3. History of hepatic encephalopathy; Continue with lactulose and xifaxin. 4.history of esophageal varices and GI bleed in the past. Continue propranolol. 5.Recurrent ascites; S/P pleurx cath placement 08/16/18. Abdominal Doppler ultrasound showed patent portal vein with hepatopetal flow. GI recommendations appreciated. Needs outpatient follow up with [facility] transplant clinic. 6. Moderate right pleural effusion. We will start low-dose of diuretics upon discharge. 7. KEYUR on CKD. Nephrology following, recommendations appreciated.follow up with nephrology closely. 8. GI/DVT prophylaxis. Pepcid and SCDs. Dietitian evaluation requested. PT evaluation appreciated. Patient is refusing PT. Patient's prognosis is very guarded. Palliative care evaluation appreciated. Patient is DNI DNR. Hospice care Discussion started. Case discussed with patient's power of passenger car inspector in detail. Case discussed with briefcase sewer for discharge planning. Upon discharge patient will follow up with PMD Dr. Bishop. Patient will follow up with [facility] clinic. 08/24/18 08:06
[2018-08-22 07:02] LABS: BASO # 0.02 K/mm3 (0.0-2.0); BASO % 0.2 % (0.0-3.0); EOS # 0.1 (0.0-0.7); EOS % 0.9 % (1.5-5.0); GRAN # 7.41 (1.4-6.5); GRAN % 74.7 % (50.0-68.0); HEMOGLOBIN 10.4 g/dL (14.0-18.0); LYMPH # 1.8 (1.2-3.4); LYMPH % 18.1 % (22.0-35.0); MEAN CELL VOLUME 99.7 fl (80.0-105.0); MEAN CORPUSCULAR HEMOGLOBIN 33.1 pg (25.0-35.0); MEAN CORPUSCULAR HGB CONC 33.2 g/dl (31.0-37.0); MEAN PLATELET VOLUME 9.2 fl (7.0-11.0); MONO # 0.6 (0.1-0.6); MONO % 6.1 % (1.0-6.0); RBC 3.14 10^6/uL (3.5-6.1); RED CELL DISTRIBUTION WIDTH 19.1 % (11.5-14.5); WHITE BLOOD COUNT 9.9 10^3/ul (4.5-11.0)
[2018-08-22 07:25] LABS: ALB/GLOB RATIO 0.8 (1.1-1.8); ALBUMIN 3.4 g/dL (3.0-4.8); CALCIUM 9.3 mg/dL (8.4-10.5)
--- NOTE | 2018-08-22 09:52 | CP.PCM.PN ---
<Marbin Lopez - Last Filed: 08/22/18 09:58> Subjective - Date & Time of Evaluation Date of Evaluation: 08/22/18 Time of Evaluation: 07:45 - Subjective Subjective: PGY-4 GI Fellow Prog Note Pt sleeping in bed when seen this AM. States that he is tired but without any other complaints. 5 point ROS negative other than stated above Objective - Vital Signs/Intake and Output Vital Signs (last 24 hours): Temp Pulse Resp BP Pulse Ox 97.5 F L 75 16 144/71 100 08/22/18 07:57 08/22/18 07:57 08/22/18 07:57 08/22/18 07:57 08/22/18 07:57 Intake and Output: 08/22/18 08/22/18 06:59 18:59 Intake Total 540 Output Total 400 Balance 140 - Medications Medications: Current Medications Albuterol/Ipratropium (Duoneb 3 Mg/0.5 Mg (3 Ml) Ud) 3 ml IH [id number] Last Admin: 08/22/18 07:23 Dose: 3 ml Famotidine (Pepcid) 20 mg PO DAILY [facility] Sodium Chloride (Sodium Chloride 0.9%) 1,000 mls @ 100 mls/hr IV .Q10H [facility] Last Admin: 08/21/18 23:25 Dose: 100 mls/hr Lactulose (Enulose) 20 gm PO BID [facility] Last Admin: 08/21/18 17:18 Dose: Not Given Lorazepam (Ativan) 0.5 mg IVP Q6H PRN; Protocol PRN Reason: Anxiety Last Admin: 08/21/18 22:33 Dose: 0.5 mg Midodrine (Proamatine) 10 mg PO TID [facility] Last Admin: 08/21/18 20:26 Dose: 10 mg Ondansetron HCl (Zofran Inj) 4 mg IVP Q6H PRN PRN Reason: Nausea/Vomiting Last Admin: 08/20/18 00:29 Dose: 4 mg Propranolol HCl (Inderal) 10 mg PO BID [facility] Last Admin: 08/21/18 20:26 Dose: 10 mg - Labs Labs: 08/22/18 06:30 08/22/18 06:30 PT 16.1 SECONDS (9.4-12.5) H 08/11/18 02:05 INR 1.40 08/11/18 02:05 - Constitutional Appears: No Acute Distress, Cachectic, Chronically Ill - Head Exam Head Exam: ATRAUMATIC, NORMAL INSPECTION - Eye Exam Eye Exam: EOMI. absent: Conjunctival injection - ENT Exam ENT Exam: Mucous Membranes Dry, Normal External Ear Exam. absent: Mucous Membranes Moist - Respiratory Exam Respiratory Exam: NORMAL BREATHING PATTERN. absent: Accessory Muscle Use - GI/Abdominal Exam GI & Abdominal Exam: Distended (mildly), Soft, Tenderness (mildly throughout without guarding (chronic per patient)), Normal Bowel Sounds, Organomegaly. absent: Bruit, Firm, Guarding, Rigid, Mass, Pulsatile Mass, Rebound Additional comments: PD drain in place in RLQ Assessment and Plan - Assessment and Plan (Free Text) Assessment: #Decompensated cirrhosis with symptomatic ascites #Hx of esophageal varices s/p Band ligation 03/2018 #Hx of hepatic encephalopathy on lactulose #KEYUR on CKD #HTN #CHF Plan: - Pt to have close follow-up with [facility] with Dr. Naranjo, especially given recent PD drain placement. - Cautious use of PD drain, if > 5 L removed would need albumin 25% supplementation (6-8 g/kg/L removed) - Previously, discussed with primary GI, Dr. Naranjo. He is to make an appointment and follow-up at [facility] upon DC. He's not taking diuretics due to recurrent HypoNa and KEYUR. He is off the transplant list currently due to his other medical issues. - Appreciate Nephrology assistance - Continue lactulose (goal BMs 2-3 soft per day, titrate as needed), xifaxin, propranolol. - Continue supportive care - Consider advancing diet to low Na Pt discussed with Dr. Garcia. <Delonte Garcia - Last Filed: 08/22/18 10:33> Objective - Vital Signs/Intake and Output Vital Signs (last 24 hours): Temp Pulse Resp BP Pulse Ox 97.5 F L 75 16 144/71 100 08/22/18 07:57 08/22/18 07:57 08/22/18 07:57 08/22/18 07:57 08/22/18 07:57 Intake and Output: 08/22/18 08/22/18 06:59 18:59 Intake Total 540 Output Total 400 Balance 140 - Medications Medications: Current Medications Albuterol/Ipratropium (Duoneb 3 Mg/0.5 Mg (3 Ml) Ud) 3 ml IH [id number] [facility] Last Admin: 08/22/18 07:23 Dose: 3 ml Famotidine (Pepcid) 20 mg PO DAILY [facility] Sodium Chloride (Sodium Chloride 0.9%) 1,000 mls @ 100 mls/hr IV .Q10H [facility] Last Admin: 08/21/18 23:25 Dose: 100 mls/hr Lactulose (Enulose) 20 gm PO BID [facility] Last Admin: 08/21/18 17:18 Dose: Not Given Lorazepam (Ativan) 0.5 mg IVP Q6H PRN; Protocol PRN Reason: Anxiety Last Admin: 08/21/18 22:33 Dose: 0.5 mg Midodrine (Proamatine) 10 mg PO TID [facility] Last Admin: 08/21/18 20:26 Dose: 10 mg Ondansetron HCl (Zofran Inj) 4 mg IVP Q6H PRN PRN Reason: Nausea/Vomiting Last Admin: 08/20/18 00:29 Dose: 4 mg Propranolol HCl (Inderal) 10 mg PO BID [facility] Last Admin: 08/21/18 20:26 Dose: 10 mg - Labs Labs: 08/22/18 06:30 08/22/18 06:30 PT 16.1 SECONDS (9.4-12.5) H 08/11/18 02:05 INR 1.40 08/11/18 02:05 Attending/Attestation - Attestation I have fully participated in the care of the patient.: Yes I have reviewed all pertinent clinical information, including history, physical exam and plan: Yes Notes (Text): 08/22/18 10:29 Patient complains of ongoing fatigue but otherwise denies abdominal pain, nausea, vomiting, diarrhea. Decompensated cirrhosis Chronic renal insufficiency Recurrent ascites s/p IR placement of indwelling drain CHF HTN - Advance diet to low sodium as tolerated - Follow up renal recommendations, currently patient on midodrine, monitor creatinine - Indwelling peritoneal drain is not ideal in patient with advanced liver disease due to potential infectious complications along with underlying encephalopathy and inability to adequately monitor drainage output. However, since this was placed, patient will require close follow up with instructions on monitoring ascitic ouptut with albumin supplementation. - Continue with lactulose for HE prevention - After hospital discharge, patient should have further follow up care at [facility] liver clinic. No further GI interventions, will sign off case. Please reconsult as necessary, thank you.
--- NOTE | 2018-08-22 15:16 | CP.PCM.PN ---
Subjective - Date & Time of Evaluation Date of Evaluation: 08/22/18 Time of Evaluation: 14:00 - Subjective Subjective: Weak, states "he is dying". Denies pain. Objective - Vital Signs/Intake and Output Vital Signs (last 24 hours): Temp Pulse Resp BP Pulse Ox 97.5 F L 75 16 142/68 100 08/22/18 07:57 08/22/18 07:57 08/22/18 07:57 08/22/18 11:34 08/22/18 07:57 Intake and Output: 08/22/18 08/22/18 06:59 18:59 Intake Total 540 Output Total 400 1200 Balance 140 -1200 - Medications Medications: Current Medications Albuterol/Ipratropium (Duoneb 3 Mg/0.5 Mg (3 Ml) Ud) 3 ml IH [id number] [facility] Last Admin: 08/22/18 14:28 Dose: 3 ml Famotidine (Pepcid) 20 mg PO DAILY [facility] Last Admin: 08/22/18 11:34 Dose: 20 mg Sodium Chloride (Sodium Chloride 0.9%) 1,000 mls @ 100 mls/hr IV .Q10H [facility] Last Admin: 08/21/18 23:25 Dose: 100 mls/hr Lactulose (Enulose) 20 gm PO BID [facility] Last Admin: 08/22/18 11:35 Dose: Not Given Lorazepam (Ativan) 0.5 mg IVP Q6H PRN; Protocol PRN Reason: Anxiety Last Admin: 08/21/18 22:33 Dose: 0.5 mg Midodrine (Proamatine) 10 mg PO TID [facility] Last Admin: 08/22/18 14:03 Dose: Not Given Ondansetron HCl (Zofran Inj) 4 mg IVP Q6H PRN PRN Reason: Nausea/Vomiting Last Admin: 08/20/18 00:29 Dose: 4 mg Propranolol HCl (Inderal) 10 mg PO BID [facility] Last Admin: 08/22/18 11:34 Dose: 10 mg - Labs Labs: 08/22/18 06:30 08/22/18 06:30 PT 16.1 SECONDS (9.4-12.5) H 08/11/18 02:05 INR 1.40 08/11/18 02:05 - Constitutional Appears: Cachectic, Chronically Ill - Head Exam Head Exam: NORMOCEPHALIC - Eye Exam Eye Exam: Normal appearance, PERRL - ENT Exam ENT Exam: Mucous Membranes Moist - Respiratory Exam Respiratory Exam: Decreased Breath Sounds, NORMAL BREATHING PATTERN - Cardiovascular Exam Cardiovascular Exam: REGULAR RHYTHM, +S1, +S2 - GI/Abdominal Exam GI & Abdominal Exam: Distended, Soft, Tenderness - Extremities Exam Extremities Exam: Normal Capillary Refill - Neurological Exam Neurological Exam: Alert, Oriented x3 - Skin Skin Exam: Dry, Pallor Assessment and Plan - Assessment and Plan (Free Text) Assessment: 63 year old male with history of TRUJILLO who was admitted with ascites, KEYUR on CKD,shortness of breath, abdominal pain, weakness. He is s/p paracentisis and had Pleurx catheter placed on 08/18 The patient is lethargic, weak. States he is dying. When I asked him to explain, he stated that he wasn't going to get better. I agreed that he had a terminal illness and that his health is declining quickly. I explained liver transplant was no longer an option due to progression of his disease, weakness and debility. I offered him option for hospice care. The patient is open to this option but wants his partner/POA Nuno Flores and his brother involved in these conversations. We also spoke about initiating a POLST in accordance with the wishes described in his Advance Directive. Patient accepts that he is terminally ill and wants to be made DNR/DNI. POLST directive completed. I also spoke patients Nuno STRATTON via phone. I made Nuno aware of the conversation that I had with Emilio. I asked Nuno if felt that patient was nearing end of life. Nuno stated that he spoke with transplant team to see if there were any further options. Nuno expressed that they did not offer any. Nuno will speak with Emilio this evening and let me know whether they wish to proceed with hospice care Time spent in goals of care and advance care planning discussion with patient and [place], 60 minutess Plan: POLST: DNR/DNI Goals of care KEYUR: renal following, r/o hepatorenal syndrome Ascites: Drain PleurX as needed Lactulose/Rifaximin daily
--- NOTE | 2018-08-22 18:47 | CP.PCM.PN ---
Subjective - Date & Time of Evaluation Date of Evaluation: 08/22/18 Time of Evaluation: 10:00 - Subjective Subjective: Patient tolerated diet yesterday; urinating "normal" amount; no vomiting; Objective - Vital Signs/Intake and Output Vital Signs (last 24 hours): Temp Pulse Resp BP Pulse Ox 97.5 F L 75 16 142/68 100 08/22/18 07:57 08/22/18 07:57 08/22/18 07:57 08/22/18 11:34 08/22/18 07:57 Intake and Output: 08/22/18 08/22/18 06:59 18:59 Intake Total 540 Output Total 400 1200 Balance 140 -1200 - Medications Medications: Current Medications Albuterol/Ipratropium (Duoneb 3 Mg/0.5 Mg (3 Ml) Ud) 3 ml IH [id number] [facility] Last Admin: 08/22/18 14:28 Dose: 3 ml Famotidine (Pepcid) 20 mg PO DAILY [facility] Last Admin: 08/22/18 11:34 Dose: 20 mg Sodium Chloride (Sodium Chloride 0.9%) 1,000 mls @ 100 mls/hr IV .Q10H [facility] Last Admin: 08/21/18 23:25 Dose: 100 mls/hr Lactulose (Enulose) 20 gm PO BID [facility] Last Admin: 08/22/18 11:35 Dose: Not Given Lorazepam (Ativan) 0.5 mg IVP Q6H PRN; Protocol PRN Reason: Anxiety Last Admin: 08/21/18 22:33 Dose: 0.5 mg Midodrine (Proamatine) 10 mg PO TID [facility] Last Admin: 08/22/18 14:03 Dose: Not Given Ondansetron HCl (Zofran Inj) 4 mg IVP Q6H PRN PRN Reason: Nausea/Vomiting Last Admin: 08/20/18 00:29 Dose: 4 mg Propranolol HCl (Inderal) 10 mg PO BID [facility] Last Admin: 08/22/18 11:34 Dose: 10 mg - Labs Labs: 08/22/18 06:30 08/22/18 06:30 PT 16.1 SECONDS (9.4-12.5) H 08/11/18 02:05 INR 1.40 08/11/18 02:05 - Constitutional Appears: Non-toxic, Cachectic - ENT Exam ENT Exam: Mucous Membranes Moist - Respiratory Exam Respiratory Exam: Clear to Ausculation Bilateral. absent: Respiratory Distress - Cardiovascular Exam Cardiovascular Exam: RRR, +S1, +S2 - GI/Abdominal Exam GI & Abdominal Exam: Soft, Tenderness. absent: Distended - Extremities Exam Additional comments: no leg edema; - Neurological Exam Neurological Exam: Alert, Awake - Psychiatric Exam Psychiatric exam: Normal Mood. absent: Agitated - Skin Skin Exam: Warm. absent: Cyanosis Assessment and Plan (1) KEYUR (acute kidney injury) Assessment & Plan: KEYUR, unclear urine output; unlike previous episodes, not responding to volume expansion (with both IVF and IV albumin); robust BP goes against HRS but still a possibility; possibly some degree of ATN; stable volume and electrolyte status; Palliative care assessment noted; given patient's prolonged illness and apparently no longer being liver transplant candidate, less aggressive treatment measures are reasonable; -continue NS at 100 cc/hr for now; -still awaiting urine lytes; -avoid nephrotoxic agents; Status: Acute (2) Ascites Assessment & Plan: no significant abd distention this morning; 1200 cc ascites drainage from pleurx catheter noted; continue to hold diuretics indefinitely; Status: Acute (3) CKD (chronic kidney disease) Status: Chronic
[2018-08-23] MEDS ORDERED: oxyCODONE 5 mg Immediate Release Tab PO STA ×2 (00:38→13:00)
[2018-08-23] MEDS: Albuterol-Ipratrop 3 mg / 0.5 (3 ml) UD IH SCH ×4 (01:24→19:13)
--- NOTE | 2018-08-23 06:19 | CP.PCM.PN ---
<Ezequiel Alcocer - Last Filed: 08/23/18 14:01> Subjective - Date & Time of Evaluation Date of Evaluation: 08/23/18 Time of Evaluation: 06:19 - Subjective Subjective: Ezequiel Alcocer DO PGY-1, Internal Medicine Resident. Hospitalist Progress Note Patient seen and examined at bedside. Patient is resting in bed, awake and oriented. He is tolerating his diet, no active complaints. Patient denied chest pain, palpitation, fever, chills Objective - Vital Signs/Intake and Output Vital Signs (last 24 hours): Temp Pulse Resp BP Pulse Ox 98.6 F 80 18 119/72 96 08/22/18 22:14 08/22/18 22:14 08/22/18 22:14 08/22/18 22:14 08/22/18 22:14 Intake and Output: 08/22/18 08/23/18 18:59 06:59 Intake Total 120 Output Total 1200 200 Balance -1200 -80 - Medications Medications: Current Medications Albuterol/Ipratropium (Duoneb 3 Mg/0.5 Mg (3 Ml) Ud) 3 ml IH [id number] [facility] Last Admin: 08/23/18 01:24 Dose: 3 ml Famotidine (Pepcid) 20 mg PO DAILY [facility] Last Admin: 08/22/18 11:34 Dose: 20 mg Sodium Chloride (Sodium Chloride 0.9%) 1,000 mls @ 100 mls/hr IV .Q10H [facility] Last Admin: 08/21/18 23:25 Dose: 100 mls/hr Lactulose (Enulose) 20 gm PO BID [facility] Last Admin: 08/22/18 11:35 Dose: Not Given Lorazepam (Ativan) 0.5 mg IVP Q6H PRN; Protocol PRN Reason: Anxiety Last Admin: 08/21/18 22:33 Dose: 0.5 mg Midodrine (Proamatine) 10 mg PO TID [facility] Last Admin: 08/22/18 14:03 Dose: Not Given Ondansetron HCl (Zofran Inj) 4 mg IVP Q6H PRN PRN Reason: Nausea/Vomiting Last Admin: 08/20/18 00:29 Dose: 4 mg Propranolol HCl (Inderal) 10 mg PO BID [facility] Last Admin: 08/22/18 11:34 Dose: 10 mg - Labs Labs: 08/22/18 06:30 08/22/18 06:30 PT 16.1 SECONDS (9.4-12.5) H 08/11/18 02:05 INR 1.40 08/11/18 02:05 - Additional Findings Additional findings: - Constitutional Appears: Well, No Acute Distress, Cachectic, Chronically Ill - Head Exam Head Exam: ATRAUMATIC, NORMAL INSPECTION, NORMOCEPHALIC - Eye Exam Eye Exam: Normal appearance, PERRL Pupil Exam: NORMAL ACCOMODATION - ENT Exam ENT Exam: Mucous Membranes Dry, Normal Oropharynx - Neck Exam Neck Exam: Normal Inspection - Respiratory Exam Respiratory Exam: Clear to Ausculation Bilateral, NORMAL BREATHING PATTERN - Cardiovascular Exam Cardiovascular Exam: REGULAR RHYTHM, +S1, +S2. absent: Murmur - GI/Abdominal Exam GI & Abdominal Exam: Soft, Normal Bowel Sounds. absent: Tenderness, Organomegaly Additional comments: indwelling abd cath in palce, no signs of infection - Extremities Exam Extremities Exam: Full ROM, Normal Capillary Refill, Normal Inspection. absent: Joint Swelling, Pedal Edema - Back Exam Back Exam: NORMAL INSPECTION - Neurological Exam Neurological Exam: Alert, Awake, CN II-XII Intact, Oriented - Psychiatric Exam Psychiatric exam: Normal Affect, Normal Mood - Skin Skin Exam: Dry, Intact, Normal Color, Warm Assessment and Plan - Assessment and Plan (Free Text) Assessment: 63 y/o M with PMHx of Liver Cirrhosis with chronic ascites, hepatic encephalo perico, esophageal varices, CKD stage III, HTN, CHF-pEF, and Afib who presented to the ED with SOB and abdominal distension and pressure. Patient s/p paracentesis with 11.2 L of fluid, SOB improved. On diuretics. S/P pleurx catheter placement. Clinically improving Plan: SOB and Abdominal Distension 2/2 Ascites from Decompensated Liver Cirrhosis - improving - Abdominal US (08/12): patent portal vein with hepatopetal flow. No thrombus/obstruction. Moderate ascites. - As per GI, patient may make appointment with his primary GI (Dr. Naranjo) for ou tpatient follow up. - c/w Albumin 25% 12.5g IV q6H, lactulose, xifaxin - s/p large volume paracentesis (08/12): 11.2 L fluid removed by IR. - CXR:moderate right pleural effusion - c/w duonebs - History of frequent paracentesis due to chronic cirrhosis. patient f/u in [facility] - c/w oxycodone 5 mg q6 prn for pain control - s/p pleurx abdominal catheter: 1200cc drained on 08/19 and 08/23 - GI consulted for d/c instructions: f/u in [facility] liver clinic. continue lactulose and albumin. close follow up with instructions on monitoring ascitic output KEYUR on CKD Stage III - pre-renal due to poor po intake - BUN/Cr fluctuationg without improvement using albumin for fluid expansion - NS at 100 cc/hr - avoid nephrotoxic medications - PTH and Ca are normal - As per Nephrology note: Holding diuretics indefinitely; drain through pleurx catheter as needed. increase NS to 100 cc/hr. continue IV albumin 25% q6h Constipation- improved - lactulose increased to 20 mg BID - patient does not want to take more lactulose because of excessive diarrhea - patient was prescribed ducolax but refused to take - Patient agreed to took one dose mag-hydroxide yesterday with no bowel movement - Mg-citrate, tap water emema were given with no response - abd XR showed early, incomplete SBO. no visible free air - CT A/P with oral contrast: distal SBO - patient had BM. abdominal discomfort improved. tolerating hepatic diet Hx of Hepatic encephalopathy - AAOx3 on exam - c/w rifaxamin and lactulose - ammonia level was normal Anemia -likely due to chronic disease/CKD -H/H stable -continue monitoring -may benefit from EPO as per nephro note Deconditioning -As per PT eval: [facility] -Per social welfare administrator: patient unable to pay and pt. will go home upon d/c -Palliative care consulted: continue pain meds and f/u in [facility] for ascites and liver cirrhosis Hx of HTN - normotensive s/p paracentesis - monitor BP Anxiety -continue xanax at bedtime PPX/Diet - GI ppx: pepcid - DVT ppx: SCDs - hepatic diet as tolerated As per case management specialist note: Physical therapy recommending [facility]. Pt and family aware of $ co pay day and prefers to go home with vna instead. Palliative/ Advance Care Planning - referral made to [facility] Case reviewed and plan discussed with attending physician Dr Rosales <Felicita Rosales - Last Filed: 08/24/18 16:52> Objective - Vital Signs/Intake and Output Vital Signs (last 24 hours): Temp Pulse Resp BP Pulse Ox 98 F 67 20 116/68 97 08/24/18 06:00 08/24/18 11:37 08/24/18 06:00 08/24/18 11:37 08/24/18 06:00 Intake and Output: 08/24/18 08/24/18 06:59 18:59 Intake Total 720 Output Total 150 Balance 570 - Medications Medications: Current Medications Albuterol/Ipratropium (Duoneb 3 Mg/0.5 Mg (3 Ml) Ud) 3 ml IH [id number] [facility] Last Admin: 08/24/18 14:37 Dose: 3 ml Famotidine (Pepcid) 20 mg PO DAILY [facility] Last Admin: 08/24/18 11:37 Dose: 20 mg Sodium Chloride (Sodium Chloride 0.9%) 1,000 mls @ 50 mls/hr IV .Q20H [facility] Last Admin: 08/24/18 11:34 Dose: 50 mls/hr Iron Sucrose 100 mg/ Sodium (Chloride) 105 mls @ 210 mls/hr IVPB DAILY [facility] Stop: 08/28/18 10:29 Last Admin: 08/24/18 11:36 Dose: 210 mls/hr Lactulose (Enulose) 20 gm PO BID [facility] Last Admin: 08/22/18 11:35 Dose: Not Given Lorazepam (Ativan) 0.5 mg IVP Q6H PRN; Protocol PRN Reason: Anxiety Last Admin: 08/21/18 22:33 Dose: 0.5 mg Midodrine (Proamatine) 10 mg PO TID [facility] Last Admin: 08/24/18 14:55 Dose: 10 mg Ondansetron HCl (Zofran Inj) 4 mg IVP Q6H PRN PRN Reason: Nausea/Vomiting Last Admin: 08/20/18 00:29 Dose: 4 mg Oxycodone HCl (Oxycodone Immediate Release Tab) 5 mg PO Q6H PRN PRN Reason: Pain, severe (8-10) Last Admin: 08/24/18 13:04 Dose: 5 mg Propranolol HCl (Inderal) 10 mg PO BID [facility] Last Admin: 08/24/18 11:37 Dose: 10 mg Rifaximin (Xifaxan) 550 mg PO BID [facility]; Protocol Last Admin: 08/24/18 11:37 Dose: 550 mg - Labs Labs: 08/24/18 06:15 08/24/18 06:15 PT 16.1 SECONDS (9.4-12.5) H 08/11/18 02:05 INR 1.40 08/11/18 02:05 Attending/Attestation - Attestation I have personally seen and examined this patient.: Yes I have fully participated in the care of the patient.: Yes I have reviewed all pertinent clinical information, including history, physical exam and plan: Yes Notes (Text): 08/24/18 16:50 Attending note; Patient seen and examined with resident. Patient is alert and awake. Denies any nausea, vomiting. Patient is 63-year-old male with past medical history significant for nonalcoholic liver cirrhosis, hepatic encephalopathy, chronic ascites, esophageal varices, chronic kidney disease, diastolic CHF, and paroxysmal atrial fibrillation that presented to the emergency room with shortness of breath. 1. Ascites secondary to non alcoholic liver cirrhosis. Status post Pleurx catheter. Instructions to drain 1.2 L every 4 days. AScitic Fluid removed yesterday. Blood pressure is stable. Decreased abdominal distention. 2. Abdominal discomfort; secondary to catheter placement. No fevers or chills. 3. History of hepatic encephalopathy; Continue with lactulose and xifaxin. 4.history of esophageal varices and GI bleed in the past. Continue propranolol. 5.Recurrent ascites; S/P pleurx cath placement 08/16/18. Abdominal Doppler ultrasound showed patent portal vein with hepatopetal flow. GI recommendations appreciated. Needs outpatient follow up with [facility] transplant clinic. 6. Moderate right pleural effusion. We will start low-dose of diuretics upon dis charge. 7. KEYUR on CKD. Nephrology following, recommendations appreciated.follow up with nephrology closely. 8. GI/DVT prophylaxis. Pepcid and SCDs. PT evaluation appreciated. Patient is refusing PT. Patient's prognosis is very guarded. Palliative care evaluation appreciated. Patient is DNI DNR. family meeting arranged for tomorrow. Patient's brother and partner will be here for family meeting. Upon discharge patient will follow up with PMD Dr. Bishop. Patient will follow up with [facility] clinic.
[2018-08-23 07:05] LABS: BASO # 0.02 K/mm3 (0.0-2.0); BASO % 0.2 % (0.0-3.0); EOS # 0.1 (0.0-0.7); EOS % 1.3 % (1.5-5.0); GRAN # 7.17 (1.4-6.5); GRAN % 76.3 % (50.0-68.0); HEMOGLOBIN 9.3 g/dL (14.0-18.0); LYMPH # 0.9 (1.2-3.4); LYMPH % 9.8 % (22.0-35.0); MEAN CELL VOLUME 99.3 fl (80.0-105.0); MEAN CORPUSCULAR HEMOGLOBIN 32.5 pg (25.0-35.0); MEAN CORPUSCULAR HGB CONC 32.7 g/dl (31.0-37.0); MEAN PLATELET VOLUME 9.1 fl (7.0-11.0); MONO # 1.2 (0.1-0.6); MONO % 12.4 % (1.0-6.0); RBC 2.86 10^6/uL (3.5-6.1); WHITE BLOOD COUNT 9.4 10^3/ul (4.5-11.0)
[2018-08-23 07:20] LABS: ALB/GLOB RATIO 0.8 (1.1-1.8); ALBUMIN 2.9 g/dL (3.0-4.8); CALCIUM 8.6 mg/dL (8.4-10.5)
--- NOTE | 2018-08-23 11:24 | CP.PCM.PN ---
Subjective - Date & Time of Evaluation Date of Evaluation: 08/23/18 Time of Evaluation: 10:00 - Subjective Subjective: Alert, offers no complaints Objective - Vital Signs/Intake and Output Vital Signs (last 24 hours): Temp Pulse Resp BP Pulse Ox 98 F 78 18 113/66 98 08/23/18 06:00 08/23/18 09:37 08/23/18 06:00 08/23/18 09:37 08/23/18 06:00 Intake and Output: 08/23/18 08/23/18 06:59 18:59 Intake Total 120 Output Total 200 Balance -80 - Medications Medications: Current Medications Albuterol/Ipratropium (Duoneb 3 Mg/0.5 Mg (3 Ml) Ud) 3 ml IH [id number] [facility] Last Admin: 08/23/18 07:31 Dose: 3 ml Famotidine (Pepcid) 20 mg PO DAILY [facility] Last Admin: 08/23/18 09:38 Dose: 20 mg Sodium Chloride (Sodium Chloride 0.9%) 1,000 mls @ 100 mls/hr IV .Q10H [facility] Last Admin: 08/21/18 23:25 Dose: 100 mls/hr Lactulose (Enulose) 20 gm PO BID [facility] Last Admin: 08/22/18 11:35 Dose: Not Given Lorazepam (Ativan) 0.5 mg IVP Q6H PRN; Protocol PRN Reason: Anxiety Last Admin: 08/21/18 22:33 Dose: 0.5 mg Midodrine (Proamatine) 10 mg PO TID [facility] Last Admin: 08/23/18 09:35 Dose: 10 mg Ondansetron HCl (Zofran Inj) 4 mg IVP Q6H PRN PRN Reason: Nausea/Vomiting Last Admin: 08/20/18 00:29 Dose: 4 mg Propranolol HCl (Inderal) 10 mg PO BID [facility] Last Admin: 08/23/18 09:37 Dose: 10 mg - Labs Labs: 08/23/18 06:15 08/23/18 06:15 PT 16.1 SECONDS (9.4-12.5) H 08/11/18 02:05 INR 1.40 08/11/18 02:05 Assessment and Plan - Assessment and Plan (Free Text) Assessment: 63 year old male with history of TRUJILLO, ascites who was admitted with shortness of breath, abdominal pain and distention, ascites, KEYUR on CKD The patient is alert,more upbeat today. He denies pain. He ate breakfast.BM this morning. He states he spoke with his partner Nuno last evening and both agreed that they did not want to proceed with hospice care. He plans in returning home with health aide services. The patient intends to follow up with transplant team. He wants to remain DNR/DNI status. Time spent with patient in goals of care conversation, 20 minutes Plan: [place]/ Cirrhosis: Will follow up with transplant team at [facility]. Continue lactulose,Rifaximin Ascites: s/p PleurX drain placement, weekly drainage. CKD: Continue [place]ine
[2018-08-23] MEDS: Sodium Chloride 0.9% 1,000 ML IV SCH ×2 (18:49→22:35)
--- NOTE | 2018-08-23 22:56 | CP.PCM.PN ---
Subjective - Date & Time of Evaluation Date of Evaluation: 08/23/18 Time of Evaluation: 10:00 - Subjective Subjective: Patient tolerating diet well; no vomiting; feels better overall; Objective - Vital Signs/Intake and Output Vital Signs (last 24 hours): Temp Pulse Resp BP Pulse Ox 97.8 F 78 18 113/69 97 08/23/18 22:34 08/23/18 22:34 08/23/18 22:34 08/23/18 22:34 08/23/18 22:34 Intake and Output: 08/23/18 08/24/18 18:59 06:59 Intake Total 820 Output Total 400 Balance 420 - Medications Medications: Current Medications Albuterol/Ipratropium (Duoneb 3 Mg/0.5 Mg (3 Ml) Ud) 3 ml IH [id number] [facility] Last Admin: 08/23/18 19:13 Dose: 3 ml Famotidine (Pepcid) 20 mg PO DAILY [facility] Last Admin: 08/23/18 09:38 Dose: 20 mg Sodium Chloride (Sodium Chloride 0.9%) 1,000 mls @ 100 mls/hr IV .Q10H [facility] Last Admin: 08/23/18 22:35 Dose: 100 mls/hr Lactulose (Enulose) 20 gm PO BID [facility] Last Admin: 08/22/18 11:35 Dose: Not Given Lorazepam (Ativan) 0.5 mg IVP Q6H PRN; Protocol PRN Reason: Anxiety Last Admin: 08/21/18 22:33 Dose: 0.5 mg Midodrine (Proamatine) 10 mg PO TID [facility] Last Admin: 08/23/18 18:47 Dose: 10 mg Ondansetron HCl (Zofran Inj) 4 mg IVP Q6H PRN PRN Reason: Nausea/Vomiting Last Admin: 08/20/18 00:29 Dose: 4 mg Propranolol HCl (Inderal) 10 mg PO BID [facility] Last Admin: 08/23/18 18:46 Dose: 10 mg - Labs Labs: 08/23/18 06:15 08/23/18 06:15 PT 16.1 SECONDS (9.4-12.5) H 08/11/18 02:05 INR 1.40 08/11/18 02:05 - Constitutional Appears: Non-toxic, No Acute Distress, Cachectic - Respiratory Exam Respiratory Exam: absent: Respiratory Distress Additional comments: R base mild rhonchi - Cardiovascular Exam Cardiovascular Exam: RRR, +S1, +S2 - GI/Abdominal Exam GI & Abdominal Exam: Soft. absent: Distended - Extremities Exam Additional comments: no leg edema; - Neurological Exam Neurological Exam: Alert, Awake - Psychiatric Exam Psychiatric exam: Normal Mood. absent: Agitated - Skin Skin Exam: Warm. absent: Cyanosis Assessment and Plan (1) KEYUR (acute kidney injury) Assessment & Plan: KEYUR on mild CKD; improving slowly; suspect some degree of ATN, perhaps triggered by large volume paracentesis; will decrease IVF to NS at 50 cc/hr as patient is eating better; -avoid nephrotoxic agents; Status: Acute (2) Ascites Assessment & Plan: Holding diuretics indefinitely, continue weekly ascites drainage via pleurx; Status: Acute (3) CKD (chronic kidney disease) Status: Chronic
[2018-08-24] MEDS: Albuterol-Ipratrop 3 mg / 0.5 (3 ml) UD IH SCH ×4 (01:49→20:08)
[2018-08-24 07:17] LABS: BASO # 0.03 K/mm3 (0.0-2.0); BASO % 0.3 % (0.0-3.0); EOS # 0.3 (0.0-0.7); EOS % 3.5 % (1.5-5.0); GRAN # 6.21 (1.4-6.5); GRAN % 65.7 % (50.0-68.0); HEMOGLOBIN 9.6 g/dL (14.0-18.0); LYMPH # 1.1 (1.2-3.4); LYMPH % 11.7 % (22.0-35.0); MEAN CELL VOLUME 100.3 fl (80.0-105.0); MEAN CORPUSCULAR HEMOGLOBIN 33.6 pg (25.0-35.0); MEAN CORPUSCULAR HGB CONC 33.4 g/dl (31.0-37.0); MEAN PLATELET VOLUME 9.3 fl (7.0-11.0); MONO # 1.8 (0.1-0.6); MONO % 18.8 % (1.0-6.0); RBC 2.86 10^6/uL (3.5-6.1); WHITE BLOOD COUNT 9.5 10^3/ul (4.5-11.0)
[2018-08-24 07:30] LABS: ALB/GLOB RATIO 0.7 (1.1-1.8); ALBUMIN 2.7 g/dL (3.0-4.8); CALCIUM 8.4 mg/dL (8.4-10.5)
[2018-08-24] MEDS: Sodium Chloride 0.9% 1,000 ML IV SCH (11:34)
--- NOTE | 2018-08-24 11:52 | CP.PCM.PN ---
Subjective - Date & Time of Evaluation Date of Evaluation: 08/24/18 Time of Evaluation: 10:00 - Subjective Subjective: Alert, oriented. Offers no complaints Objective - Vital Signs/Intake and Output Vital Signs (last 24 hours): Temp Pulse Resp BP Pulse Ox 98 F 67 20 116/68 97 08/24/18 06:00 08/24/18 11:37 08/24/18 06:00 08/24/18 11:37 08/24/18 06:00 - Medications Medications: Current Medications Albuterol/Ipratropium (Duoneb 3 Mg/0.5 Mg (3 Ml) Ud) 3 ml IH [id number] [facility] Last Admin: 08/24/18 08:30 Dose: 3 ml Famotidine (Pepcid) 20 mg PO DAILY [facility] Last Admin: 08/24/18 11:37 Dose: 20 mg Sodium Chloride (Sodium Chloride 0.9%) 1,000 mls @ 50 mls/hr IV .Q20H [facility] Last Admin: 08/24/18 11:34 Dose: 50 mls/hr Iron Sucrose 100 mg/ Sodium (Chloride) 105 mls @ 210 mls/hr IVPB DAILY [facility] Stop: 08/28/18 10:29 Last Admin: 08/24/18 11:36 Dose: 210 mls/hr Lactulose (Enulose) 20 gm PO BID [facility] Last Admin: 08/22/18 11:35 Dose: Not Given Lorazepam (Ativan) 0.5 mg IVP Q6H PRN; Protocol PRN Reason: Anxiety Last Admin: 08/21/18 22:33 Dose: 0.5 mg Midodrine (Proamatine) 10 mg PO TID [facility] Last Admin: 08/24/18 11:40 Dose: 10 mg Ondansetron HCl (Zofran Inj) 4 mg IVP Q6H PRN PRN Reason: Nausea/Vomiting Last Admin: 08/20/18 00:29 Dose: 4 mg Propranolol HCl (Inderal) 10 mg PO BID [facility] Last Admin: 08/24/18 11:37 Dose: 10 mg Rifaximin (Xifaxan) 550 mg PO BID [facility]; Protocol Last Admin: 08/24/18 11:37 Dose: 550 mg - Labs Labs: 08/24/18 06:15 08/24/18 06:15 PT 16.1 SECONDS (9.4-12.5) H 08/11/18 02:05 INR 1.40 08/11/18 02:05 - Constitutional Appears: Cachectic, Chronically Ill - Eye Exam Eye Exam: Normal appearance, PERRL - ENT Exam ENT Exam: Mucous Membranes Moist - Respiratory Exam Respiratory Exam: Clear to Ausculation Bilateral, NORMAL BREATHING PATTERN - Cardiovascular Exam Cardiovascular Exam: REGULAR RHYTHM, +S1, +S2 - GI/Abdominal Exam GI & Abdominal Exam: Distended, Soft, Normal Bowel Sounds Additional comments: Pleurx drain site clean/dry - Extremities Exam Extremities Exam: Normal Capillary Refill - Back Exam Back Exam: NORMAL INSPECTION - Skin Skin Exam: Dry, Warm Assessment and Plan - Assessment and Plan (Free Text) Assessment: 63 year old male with history of TRUJILLO, cirrhosis and ascites who is admitted with recurring ascites, s/p PleurX drain placement,KEYUR, weakness, anorexia, cachexia, debility. Family meeting heal with mutli disciplinary team. Patient's POA Nuno Flores and brother Hernesto Lane ( alternate POA) present at bedside.Emilio expressed that he wished to go home and that he intended to follow up with transplant team. Medical team explained that they had spoken with transplant team at [facility] and were told that patient is no longer a candidate for transplant due to his comorbidities and debilitated state . Multidisciplinary team expressed concerns that patient is to weak and debilitated to care for himself and that it is not safe for him to be alone all day. Patients POA's also expressed the same concerns. Reminded patient that he now has abdominal drain which must be kept clean and fluid drained regularly. The patient does not have financial resources to hire signal timer physician assistant primary care. Patient has agreed to go to technician [facility] and repe[facility] care facility where his medical/ social needs can be met. POA's are also in agreement with this plan. SW working with POA,'s to start medicaid application. Time spent with patient and family in goals of care and advance care planning, 60 minutes Plan: Goals of care and advance care planning
--- NOTE | 2018-08-24 12:38 | CP.PCM.PN ---
<Jenni Maki - Last Filed: 08/24/18 12:39> Subjective - Date & Time of Evaluation Date of Evaluation: 08/24/18 Time of Evaluation: 09:00 - Subjective Subjective: Jenni Maki DO, PGY-2: Nephrology Progress Note for Dr. De Oliveira Patient seen and examined at bedside. Patient reports fair appetite. He denies any decrease in urine output, dyspnea, but admits to feeling run down and not participating in his most recent physical therapy session. Otherwise, nurse reports no adverse events overnight. Objective - Vital Signs/Intake and Output Vital Signs (last 24 hours): Temp Pulse Resp BP Pulse Ox 98 F 67 20 116/68 97 08/24/18 06:00 08/24/18 11:37 08/24/18 06:00 08/24/18 11:37 08/24/18 06:00 - Medications Medications: Current Medications Albuterol/Ipratropium (Duoneb 3 Mg/0.5 Mg (3 Ml) Ud) 3 ml IH [id number] [facility] Last Admin: 08/24/18 08:30 Dose: 3 ml Famotidine (Pepcid) 20 mg PO DAILY [facility] Last Admin: 08/24/18 11:37 Dose: 20 mg Sodium Chloride (Sodium Chloride 0.9%) 1,000 mls @ 50 mls/hr IV .Q20H [facility] Last Admin: 08/24/18 11:34 Dose: 50 mls/hr Iron Sucrose 100 mg/ Sodium (Chloride) 105 mls @ 210 mls/hr IVPB DAILY [facility] Stop: 08/28/18 10:29 Last Admin: 08/24/18 11:36 Dose: 210 mls/hr Lactulose (Enulose) 20 gm PO BID [facility] Last Admin: 08/22/18 11:35 Dose: Not Given Lorazepam (Ativan) 0.5 mg IVP Q6H PRN; Protocol PRN Reason: Anxiety Last Admin: 08/21/18 22:33 Dose: 0.5 mg Midodrine (Proamatine) 10 mg PO TID [facility] Last Admin: 08/24/18 11:40 Dose: 10 mg Ondansetron HCl (Zofran Inj) 4 mg IVP Q6H PRN PRN Reason: Nausea/Vomiting Last Admin: 08/20/18 00:29 Dose: 4 mg Propranolol HCl (Inderal) 10 mg PO BID [facility] Last Admin: 08/24/18 11:37 Dose: 10 mg Rifaximin (Xifaxan) 550 mg PO BID [facility]; Protocol Last Admin: 08/24/18 11:37 Dose: 550 mg - Labs Labs: 08/24/18 06:15 08/24/18 06:15 PT 16.1 SECONDS (9.4-12.5) H 08/11/18 02:05 INR 1.40 08/11/18 02:05 - Constitutional Appears: Non-toxic, No Acute Distress - Head Exam Head Exam: ATRAUMATIC, NORMOCEPHALIC - Eye Exam Eye Exam: EOMI, Normal appearance - ENT Exam ENT Exam: Mucous Membranes Moist - Neck Exam Neck Exam: Normal Inspection - Respiratory Exam Respiratory Exam: Decreased Breath Sounds (bilaterally), NORMAL BREATHING PATTERN. absent: Accessory Muscle Use - Cardiovascular Exam Cardiovascular Exam: RRR, +S1, +S2 - GI/Abdominal Exam GI & Abdominal Exam: Tenderness. absent: Guarding, Rebound - Extremities Exam Extremities Exam: Pedal Edema. absent: Calf Tenderness - Neurological Exam Neurological Exam: Awake, Oriented x3 - Psychiatric Exam Psychiatric exam: Normal Affect, Normal Mood - Skin Skin Exam: Dry, Intact, Normal Color, Warm Assessment and Plan (1) KEYUR (acute kidney injury) Status: Acute (2) Ascites Status: Acute (3) CKD (chronic kidney disease) Status: Chronic - Assessment and Plan (Free Text) Assessment: Contine with gentle hydration with NS - Avoid Nephrotoxins! As always, thank you for allowing us to participate in the care of this patient. We will continue to follow with you. <Wood De Oliveira - Last Filed: 08/25/18 07:41> Objective - Vital Signs/Intake and Output Vital Signs (last 24 hours): Temp Pulse Resp BP Pulse Ox 98.3 F 69 18 117/65 100 08/24/18 22:00 08/24/18 22:00 08/24/18 22:00 08/24/18 22:00 08/24/18 22:00 Intake and Output: 08/25/18 08/25/18 06:59 18:59 Intake Total 1640 Output Total 200 Balance 1440 - Medications Medications: Current Medications Albuterol/Ipratropium (Duoneb 3 Mg/0.5 Mg (3 Ml) Ud) 3 ml IH [id number] [facility] Last Admin: 08/25/18 07:09 Dose: 3 ml Famotidine (Pepcid) 20 mg PO DAILY [facility] Last Admin: 08/24/18 11:37 Dose: 20 mg Sodium Chloride (Sodium Chloride 0.9%) 1,000 mls @ 50 mls/hr IV .Q20H [facility] Last Admin: 08/25/18 07:00 Dose: 50 mls/hr Iron Sucrose 100 mg/ Sodium (Chloride) 105 mls @ 210 mls/hr IVPB DAILY [facility] Stop: 08/28/18 10:29 Last Admin: 08/24/18 11:36 Dose: 210 mls/hr Lactulose (Enulose) 20 gm PO BID [facility] Last Admin: 08/22/18 11:35 Dose: Not Given Lorazepam (Ativan) 0.5 mg IVP Q6H PRN; Protocol PRN Reason: Anxiety Last Admin: 08/21/18 22:33 Dose: 0.5 mg Midodrine (Proamatine) 10 mg PO TID [facility] Last Admin: 08/24/18 18:41 Dose: Not Given Ondansetron HCl (Zofran Inj) 4 mg IVP Q6H PRN PRN Reason: Nausea/Vomiting Last Admin: 08/20/18 00:29 Dose: 4 mg Oxycodone HCl (Oxycodone Immediate Release Tab) 5 mg PO Q6H PRN PRN Reason: Pain, severe (8-10) Last Admin: 08/25/18 06:52 Dose: 5 mg Propranolol HCl (Inderal) 10 mg PO BID [facility] Last Admin: 08/24/18 17:46 Dose: 10 mg Rifaximin (Xifaxan) 550 mg PO BID [facility]; Protocol Last Admin: 08/24/18 17:47 Dose: 550 mg - Labs Labs: 08/25/18 06:00 08/25/18 06:00 PT 16.1 SECONDS (9.4-12.5) H 08/11/18 02:05 INR 1.40 08/11/18 02:05 Assessment and Plan (1) KEYUR (acute kidney injury) Status: Acute (2) Ascites Status: Acute (3) CKD (chronic kidney disease) Status: Chronic Attending/Attestation - Attestation I have personally seen and examined this patient.: Yes I have fully participated in the care of the patient.: Yes I have reviewed all pertinent clinical information, including history, physical exam and plan: Yes Notes (Text): Patient seen and examined; I agree with the resident's note as above with the following additions/edits: Patient with cryptogenic cirrhosis, mild CKD, recurrent ascites, admitted with large ascites accumulation, underwent large volume paracentesis twice, now with pleurx catheter for weekly drainage; KEYUR improving, likely pre-renal with some ATN component; PO intake improving; off diuretics and has been on IVF, rate decreased yesterday to 50 cc/hr; Stable volume and electrolyte status; abdomen mildly distended; -Will continue gentle IVF w/ NS at 50 cc/hr; -Avoid nephrotoxic agents;
--- NOTE | 2018-08-24 12:40 | CP.PCM.PN ---
<Ezequiel Alcocer - Last Filed: 08/24/18 18:59> Subjective - Date & Time of Evaluation Date of Evaluation: 08/24/18 Time of Evaluation: 05:40 - Subjective Subjective: Ezequiel Alcocer DO PGY-1, Internal Medicine Resident. Hospitalist Progress Note Patient seen and examined at bedside. Patient is resting in bed, awake and oriented. He is tolerating his diet, had BM last night, no active complaints. Patient denied chest pain, palpitation, fever, chills Objective - Vital Signs/Intake and Output Vital Signs (last 24 hours): Temp Pulse Resp BP Pulse Ox 98 F 67 20 116/68 97 08/24/18 06:00 08/24/18 11:37 08/24/18 06:00 08/24/18 11:37 08/24/18 06:00 - Medications Medications: Current Medications Albuterol/Ipratropium (Duoneb 3 Mg/0.5 Mg (3 Ml) Ud) 3 ml IH [id number] [facility] Last Admin: 08/24/18 08:30 Dose: 3 ml Famotidine (Pepcid) 20 mg PO DAILY [facility] Last Admin: 08/24/18 11:37 Dose: 20 mg Sodium Chloride (Sodium Chloride 0.9%) 1,000 mls @ 50 mls/hr IV .Q20H [facility] Last Admin: 08/24/18 11:34 Dose: 50 mls/hr Iron Sucrose 100 mg/ Sodium (Chloride) 105 mls @ 210 mls/hr IVPB DAILY [facility] Stop: 08/28/18 10:29 Last Admin: 08/24/18 11:36 Dose: 210 mls/hr Lactulose (Enulose) 20 gm PO BID [facility] Last Admin: 08/22/18 11:35 Dose: Not Given Lorazepam (Ativan) 0.5 mg IVP Q6H PRN; Protocol PRN Reason: Anxiety Last Admin: 08/21/18 22:33 Dose: 0.5 mg Midodrine (Proamatine) 10 mg PO TID [facility] Last Admin: 08/24/18 11:40 Dose: 10 mg Ondansetron HCl (Zofran Inj) 4 mg IVP Q6H PRN PRN Reason: Nausea/Vomiting Last Admin: 08/20/18 00:29 Dose: 4 mg Oxycodone HCl (Oxycodone Immediate Release Tab) 5 mg PO Q6H PRN PRN Reason: Pain, severe (8-10) Propranolol HCl (Inderal) 10 mg PO BID [facility] Last Admin: 08/24/18 11:37 Dose: 10 mg Rifaximin (Xifaxan) 550 mg PO BID [facility]; Protocol Last Admin: 08/24/18 11:37 Dose: 550 mg - Labs Labs: 08/24/18 06:15 08/24/18 06:15 PT 16.1 SECONDS (9.4-12.5) H 08/11/18 02:05 INR 1.40 08/11/18 02:05 - Additional Findings Additional findings: - Constitutional Appears: Well, No Acute Distress, Cachectic, Chronically Ill - Head Exam Head Exam: ATRAUMATIC, NORMAL INSPECTION, NORMOCEPHALIC - Eye Exam Eye Exam: Normal appearance, PERRL Pupil Exam: NORMAL ACCOMODATION - ENT Exam ENT Exam: Mucous Membranes Dry, Normal Oropharynx - Neck Exam Neck Exam: Normal Inspection - Respiratory Exam Respiratory Exam: Clear to Ausculation Bilateral, NORMAL BREATHING PATTERN - Cardiovascular Exam Cardiovascular Exam: REGULAR RHYTHM, +S1, +S2. absent: Murmur - GI/Abdominal Exam GI & Abdominal Exam: Soft, Normal Bowel Sounds. absent: Tenderness, Organomegaly Additional comments: indwelling abd cath in palce, no signs of infection - Extremities Exam Extremities Exam: Full ROM, Normal Capillary Refill, Normal Inspection. absent: Joint Swelling, Pedal Edema - Back Exam Back Exam: NORMAL INSPECTION - Neurological Exam Neurological Exam: Alert, Awake, CN II-XII Intact, Oriented - Psychiatric Exam Psychiatric exam: Normal Affect, Normal Mood - Skin Skin Exam: Dry, Intact, Normal Color, Warm Assessment and Plan - Assessment and Plan (Free Text) Assessment: 63 y/o M with PMHx of Liver Cirrhosis with chronic ascites, hepatic encephalopathy, esophageal varices, CKD stage III, HTN, CHF-pEF, and Afib who presented to the ED with SOB and abdominal distension and pressure. Patient s/p paracentesis with 11.2 L of fluid, SOB improved. On diuretics. S/P pleurx catheter placement. Clinically improving Plan: SOB and Abdominal Distension 2/2 Ascites from Decompensated Liver Cirrhosis - improved - Abdominal US (08/12): patent portal vein with hepatopetal flow. No thrombus/obstruction. Moderate ascites. - As per GI, patient may make appointment with his primary GI (Dr. Naranjo) for outpatient follow up. - c/w Albumin 25% 12.5g IV q6H, lactulose, xifaxin - s/p large volume paracentesis (08/12): 11.2 L fluid removed by IR. - CXR:moderate right pleural effusion - c/w duonebs - History of frequent paracentesis due to chronic cirrhosis. patient f/u in [facility] - c/w oxycodone 5 mg q6 prn for pain control - s/p pleurx abdominal catheter: 1200cc drained on 08/19 and 08/23. 2200 on 08/24 - GI consulted for d/c instructions: f/u in [facility] liver clinic. continue lactulose and albumin. close follow up with instructions on monitoring ascitic output KEYUR on CKD Stage III - pre-renal due to poor po intake - BUN/Cr fluctuationg without improvement using albumin for fluid expansion - NS at 100 cc/hr - avoid nephrotoxic medications - PTH and Ca are normal - As per Nephrology note: Holding diuretics indefinitely; drain through pleurx catheter as needed. increase NS to 100 cc/hr. continue IV albumin 25% q6h Constipation- improved - lactulose increased to 20 mg BID - patient does not want to take more lactulose because of excessive diarrhea - patient was prescribed ducolax but refused to take - Patient agreed to took one dose mag-hydroxide yesterday with no bowel movement - Mg-citrate, tap water emema were given with no response - abd XR showed early, incomplete SBO. no visible free air - CT A/P with oral contrast: distal SBO - patient had BM. abdominal discomfort improved. tolerating hepatic diet Hx of Hepatic encephalopathy - AAOx3 on exam - c/w rifaxamin and lactulose - ammonia level was normal Anemia -likely due to chronic disease/CKD -H/H stable -continue monitoring -may benefit from EPO as per nephro note Deconditioning -As per PT eval: [facility] -Per social problems specialist: patient unable to pay and pt. will go home upon d/c -Palliative care consulted: continue pain meds and f/u in [facility] for ascites and liver cirrhosis Hx of HTN - normotensive s/p paracentesis - monitor BP Anxiety -continue xanax at bedtime PPX/Diet - GI ppx: pepcid - DVT ppx: SCDs - hepatic diet as tolerated As per director case note: Physical therapy recommending [facility]. Pt and family aware of $ co pay day and prefers to go home with vna instead. Palliative/ Advance Care Planning - referral made to [facility] As per social problems specialist note 08/24/18: Discharge plan prison placement medicaid pending Case reviewed and plan discussed with attending physician Dr Rosales <Felicita Rosales - Last Filed: 08/25/18 18:41> Objective - Vital Signs/Intake and Output Vital Signs (last 24 hours): Temp Pulse Resp BP Pulse Ox 97.6 F 77 18 134/77 98 08/25/18 14:00 08/25/18 14:00 08/25/18 14:00 08/25/18 14:00 08/25/18 14:00 Intake and Output: 08/25/18 08/25/18 06:59 18:59 Intake Total 1640 Output Total 200 Balance 1440 - Medications Medications: Current Medications Albuterol/Ipratropium (Duoneb 3 Mg/0.5 Mg (3 Ml) Ud) 3 ml IH [id number] [facility] Last Admin: 08/25/18 13:12 Dose: 3 ml Enoxaparin Sodium (Lovenox) 30 mg SC DAILY [facility]; Protocol Last Admin: 08/25/18 15:02 Dose: 30 mg Famotidine (Pepcid) 20 mg PO DAILY [facility] Last Admin: 08/25/18 09:15 Dose: 20 mg Iron Sucrose 100 mg/ Sodium (Chloride) 105 mls @ 210 mls/hr IVPB DAILY [facility] Stop: 08/28/18 10:29 Last Admin: 08/25/18 09:15 Dose: 210 mls/hr Lactulose (Enulose) 20 gm PO BID [facility] Last Admin: 08/22/18 11:35 Dose: Not Given Lorazepam (Ativan) 0.5 mg IVP Q6H PRN; Protocol PRN Reason: Anxiety Last Admin: 08/21/18 22:33 Dose: 0.5 mg Megestrol Acetate (Megace) 400 mg PO DAILY [facility] Last Admin: 08/25/18 15:01 Dose: 400 mg Midodrine (Proamatine) 10 mg PO TID [facility] Last Admin: 08/25/18 18:26 Dose: 10 mg Ondansetron HCl (Zofran Inj) 4 mg IVP Q6H PRN PRN Reason: Nausea/Vomiting Last Admin: 08/20/18 00:29 Dose: 4 mg Oxycodone HCl (Oxycodone Immediate Release Tab) 5 mg PO Q6H PRN PRN Reason: Pain, severe (8-10) Last Admin: 08/25/18 13:08 Dose: 5 mg Propranolol HCl (Inderal) 10 mg PO BID [facility] Last Admin: 08/25/18 18:26 Dose: 10 mg Rifaximin (Xifaxan) 550 mg PO BID [facility]; Protocol Last Admin: 08/25/18 18:26 Dose: 550 mg - Labs Labs: 08/25/18 06:00 08/25/18 06:00 PT 16.1 SECONDS (9.4-12.5) H 08/11/18 02:05 INR 1.40 08/11/18 02:05 Attending/Attestation - Attestation I have personally seen and examined this patient.: Yes I have fully participated in the care of the patient.: Yes I have reviewed all pertinent clinical information, including history, physical exam and plan: Yes Notes (Text): 08/25/18 18:38 Attending note; Patient seen and examined with resident. Patient is alert and awake. Denies any nausea, vomiting. Patient is 63-year-old male with past medical history significant for nonalcoholic liver cirrhosis, hepatic encephalopathy, chronic ascites, esophageal varices, chronic kidney disease, diastolic CHF, and paroxysmal atrial fibrillation that presented to the emergency room with shortness of breath. 1. Ascites secondary to non alcoholic liver cirrhosis. Status post Pleurx catheter. Instructions to drain 1.2 L every 4 days. AScitic Fluid removed 2 days ago. Blood pressure is stable. Decreased abdominal distention. 2. Abdominal discomfort; secondary to catheter placement. No fevers or chills. 3. History of hepatic encephalopathy; Continue with lactulose and xifaxin. 4.history of esophageal varices and GI bleed in the past. Continue propranolol. 5.Recurrent ascites; S/P pleurx cath placement 08/16/18. Abdominal Doppler ultrasound showed patent portal vein with hepatopetal flow. GI recommendations appreciated. Needs outpatient follow up with [facility] transplant clinic. 6. Moderate right pleural effusion. We will start low-dose of diuretics upon discharge. 7. KEYUR on CKD. Nephrology following, recommendations appreciated. creatinine is improving. 8. GI/DVT prophylaxis. Pepcid and SCDs. Had a family meeting with patient's brother and power of criminal defense attorney Nuno. manager freelance , social problems specialist and palliative care by the bedside. patient refused hospice care. Family requesting rehabilitation at [facility] in [place]. Patient's prognosis is very guarded. Patient is DNI DNR. Upon discharge patient will follow up with PMD Dr. Bisohp. Patient will follow up with [facility] clinic. time spent over 1 hour.
[2018-08-24] MEDS: oxyCODONE 5 mg Immediate Release Tab PO PRN ×3 (13:04→23:03)
[2018-08-25] MEDS: Albuterol-Ipratrop 3 mg / 0.5 (3 ml) UD IH SCH ×4 (01:58→21:38)
--- NOTE | 2018-08-25 05:30 | CP.PCM.PN ---
<Ezequiel Alcocer - Last Filed: 08/25/18 15:01> Subjective - Date & Time of Evaluation Date of Evaluation: 08/25/18 Time of Evaluation: 06:21 - Subjective Subjective: Ezequiel Alcocer DO PGY-1, Internal Medicine Resident. Hospitalist Progress Note Patient seen and examined at bedside. Patient is resting in bed, awake and oriented. He is tolerating his diet, had BM last night, no active complaints. 2200 cc drained yesterday via pleurx cath, feels better now. Patient denied chest pain, palpitation, fever, chills Objective - Vital Signs/Intake and Output Vital Signs (last 24 hours): Temp Pulse Resp BP Pulse Ox 98.3 F 69 18 117/65 100 08/24/18 22:00 08/24/18 22:00 08/24/18 22:00 08/24/18 22:00 08/24/18 22:00 Intake and Output: 08/24/18 08/25/18 18:59 06:59 Intake Total 1570 240 Output Total 2450 200 Balance -880 40 - Medications Medications: Current Medications Albuterol/Ipratropium (Duoneb 3 Mg/0.5 Mg (3 Ml) Ud) 3 ml IH [id number] [facility] Last Admin: 08/25/18 01:58 Dose: 3 ml Famotidine (Pepcid) 20 mg PO DAILY [facility] Last Admin: 08/24/18 11:37 Dose: 20 mg Sodium Chloride (Sodium Chloride 0.9%) 1,000 mls @ 50 mls/hr IV .Q20H [facility] Last Admin: 08/24/18 11:34 Dose: 50 mls/hr Iron Sucrose 100 mg/ Sodium (Chloride) 105 mls @ 210 mls/hr IVPB DAILY [facility] Stop: 08/28/18 10:29 Last Admin: 08/24/18 11:36 Dose: 210 mls/hr Lactulose (Enulose) 20 gm PO BID [facility] Last Admin: 08/22/18 11:35 Dose: Not Given Lorazepam (Ativan) 0.5 mg IVP Q6H PRN; Protocol PRN Reason: Anxiety Last Admin: 08/21/18 22:33 Dose: 0.5 mg Midodrine (Proamatine) 10 mg PO TID [facility] Last Admin: 08/24/18 18:41 Dose: Not Given Ondansetron HCl (Zofran Inj) 4 mg IVP Q6H PRN PRN Reason: Nausea/Vomiting Last Admin: 08/20/18 00:29 Dose: 4 mg Oxycodone HCl (Oxycodone Immediate Release Tab) 5 mg PO Q6H PRN PRN Reason: Pain, severe (8-10) Last Admin: 08/24/18 23:03 Dose: 5 mg Propranolol HCl (Inderal) 10 mg PO BID [facility] Last Admin: 08/24/18 17:46 Dose: 10 mg Rifaximin (Xifaxan) 550 mg PO BID [facility]; Protocol Last Admin: 08/24/18 17:47 Dose: 550 mg - Labs Labs: 08/24/18 06:15 08/24/18 06:15 PT 16.1 SECONDS (9.4-12.5) H 08/11/18 02:05 INR 1.40 08/11/18 02:05 - Additional Findings Additional findings: - Constitutional Appears: Well, No Acute Distress, Cachectic, Chronically Ill - Head Exam Head Exam: ATRAUMATIC, NORMAL INSPECTION, NORMOCEPHALIC - Eye Exam Eye Exam: Normal appearance, PERRL Pupil Exam: NORMAL ACCOMODATION - ENT Exam ENT Exam: Mucous Membranes Dry, Normal Oropharynx - Neck Exam Neck Exam: Normal Inspection - Respiratory Exam Respiratory Exam: Clear to Ausculation Bilateral, NORMAL BREATHING PATTERN - Cardiovascular Exam Cardiovascular Exam: REGULAR RHYTHM, +S1, +S2. absent: Murmur - GI/Abdominal Exam GI & Abdominal Exam: Soft, Normal Bowel Sounds. absent: Tenderness, Organomegaly Additional comments: indwelling abd cath in palce, no signs of infection - Extremities Exam Extremities Exam: Full ROM, Normal Capillary Refill, Normal Inspection. absent: Joint Swelling, Pedal Edema - Back Exam Back Exam: NORMAL INSPECTION - Neurological Exam Neurological Exam: Alert, Awake, CN II-XII Intact, Oriented - Psychiatric Exam Psychiatric exam: Normal Affect, Normal Mood - Skin Skin Exam: Dry, Intact, Normal Color, Warm Assessment and Plan - Assessment and Plan (Free Text) Assessment: 63 y/o M with PMHx of Liver Cirrhosis with chronic ascites, hepatic encephalopathy, esophageal varices, CKD stage III, HTN, CHF-pEF, and Afib who presented to the ED with SOB and abdominal distension and pressure. Patient s/p paracentesis with 11.2 L of fluid, SOB improved. On diuretics. S/P pleurx catheter placement, had multiple taps . Clinically improving Plan: SOB and Abdominal Distension 2/2 Ascites from Decompensated Liver Cirrhosis - improved - Abdominal US (08/12): patent portal vein with hepatopetal flow. No thrombus/obstruction. Moderate ascites. - As per GI, patient may make appointment with his primary GI (Dr. Naranjo) for outpatient follow up. - c/w Albumin 25% 12.5g IV q6H, lactulose, xifaxin - s/p large volume paracentesis (08/12): 11.2 L fluid removed by IR. - CXR:moderate right pleural effusion - c/w duonebs - History of frequent paracentesis due to chronic cirrhosis. patient f/u in [facility] - c/w oxycodone 5 mg q6 prn for pain control - s/p pleurx abdominal catheter: 1200cc drained on 08/19 and 08/23. 2200 on 08/24 - GI consulted for d/c instructions: f/u in [facility] liver clinic. continue lactulose and albumin. close follow up with instructions on monitoring ascitic output KEYUR on CKD Stage III - pre-renal due to poor po intake - BUN/Cr fluctuationg without improvement using albumin for fluid expansion - NS at 100 cc/hr - avoid nephrotoxic medications - PTH and Ca are normal - As per Nephrology note: Holding diuretics indefinitely; drain through pleurx catheter as needed. increase NS to 100 cc/hr. continue IV albumin 25% q6h Constipation- improved - lactulose increased to 20 mg BID - patient does not want to take more lactulose because of excessive diarrhea - patient was prescribed ducolax but refused to take - Patient agreed to took one dose mag-hydroxide yesterday with no bowel movement - Mg-citrate, tap water emema were given with no response - abd XR showed early, incomplete SBO. no visible free air - CT A/P with oral contrast: distal SBO - patient had BM. abdominal discomfort improved. tolerating hepatic diet Hx of Hepatic encephalopathy - AAOx3 on exam - c/w rifaxamin and lactulose - ammonia level was normal Anemia -likely due to chronic disease/CKD -H/H stable -continue monitoring -may benefit from EPO as per nephro note Deconditioning -As per PT eval: [facility] -Per sr. social media & mobile manager: patient unable to pay and pt. will go home upon d/c -Palliative care consulted: continue pain meds and f/u in [facility] for ascites and liver cirrhosis Hx of HTN - normotensive s/p paracentesis - monitor BP Anxiety -continue xanax at bedtime PPX/Diet - GI ppx: pepcid - DVT ppx: SCDs - hepatic diet as tolerated As per counseling case manager note: Physical therapy recommending [facility]. Pt and family aware of $ co pay day and prefers to go home with vna instead. Palliative/ Advance Care Planning - referral made to [facility] As per sr. social media & mobile manager note 08/24/18: Discharge plan [facility] placement medicaid pending Case reviewed and plan discussed with attending physician Dr Rosales <Felicita Rosales - Last Filed: 08/25/18 18:43> Objective - Vital Signs/Intake and Output Vital Signs (last 24 hours): Temp Pulse Resp BP Pulse Ox 97.6 F 77 18 134/77 98 08/25/18 14:00 08/25/18 14:00 08/25/18 14:00 08/25/18 14:00 08/25/18 14:00 Intake and Output: 08/25/18 08/25/18 06:59 18:59 Intake Total 1640 Output Total 200 Balance 1440 - Medications Medications: Current Medications Albuterol/Ipratropium (Duoneb 3 Mg/0.5 Mg (3 Ml) Ud) 3 ml IH [id number] [facility] Last Admin: 08/25/18 13:12 Dose: 3 ml Enoxaparin Sodium (Lovenox) 30 mg SC DAILY [facility]; Protocol Last Admin: 08/25/18 15:02 Dose: 30 mg Famotidine (Pepcid) 20 mg PO DAILY [facility] Last Admin: 08/25/18 09:15 Dose: 20 mg Iron Sucrose 100 mg/ Sodium (Chloride) 105 mls @ 210 mls/hr IVPB DAILY [facility] Stop: 08/28/18 10:29 Last Admin: 08/25/18 09:15 Dose: 210 mls/hr Lactulose (Enulose) 20 gm PO BID [facility] Last Admin: 08/22/18 11:35 Dose: Not Given Lorazepam (Ativan) 0.5 mg IVP Q6H PRN; Protocol PRN Reason: Anxiety Last Admin: 08/21/18 22:33 Dose: 0.5 mg Megestrol Acetate (Megace) 400 mg PO DAILY [facility] Last Admin: 08/25/18 15:01 Dose: 400 mg Midodrine (Proamatine) 10 mg PO TID [facility] Last Admin: 08/25/18 18:26 Dose: 10 mg Ondansetron HCl (Zofran Inj) 4 mg IVP Q6H PRN PRN Reason: Nausea/Vomiting Last Admin: 08/20/18 00:29 Dose: 4 mg Oxycodone HCl (Oxycodone Immediate Release Tab) 5 mg PO Q6H PRN PRN Reason: Pain, severe (8-10) Last Admin: 08/25/18 13:08 Dose: 5 mg Propranolol HCl (Inderal) 10 mg PO BID [facility] Last Admin: 08/25/18 18:26 Dose: 10 mg Rifaximin (Xifaxan) 550 mg PO BID [facility]; Protocol Last Admin: 08/25/18 18:26 Dose: 550 mg - Labs Labs: 08/25/18 06:00 08/25/18 06:00 PT 16.1 SECONDS (9.4-12.5) H 08/11/18 02:05 INR 1.40 08/11/18 02:05 Attending/Attestation - Attestation I have personally seen and examined this patient.: Yes I have fully participated in the care of the patient.: Yes I have reviewed all pertinent clinical information, including history, physical exam and plan: Yes Notes (Text): 08/25/18 18:42 Attending note; Patient seen and examined with resident. Patient is alert and awake. Denies any nausea, vomiting. tolerating ensure. Denies any abdominal pain. Willing to participate in physical therapy. Patient is 63-year-old male with past medical history significant for nonalcoholic liver cirrhosis, hepatic encephalopathy, chronic ascites, esophageal varices, chronic kidney disease, diastolic CHF, and paroxysmal atrial fibrillation that presented to the emergency room with shortness of breath. 1. Ascites secondary to non alcoholic liver cirrhosis. Status post Pleurx catheter. Instructions to drain 1.2 L every 4 days. AScitic Fluid removed 3 days ago. Blood pressure is stable. Decreased abdominal distention. 2. Abdominal discomfort; secondary to catheter placement. No fevers or chills. 3. History of hepatic encephalopathy; Continue with lactulose and xifaxin. 4.history of esophageal varices and GI bleed in the past. Continue propranolol. 5.Recurrent ascites; S/P pleurx cath placement 08/16/18. Abdominal Doppler ultrasound showed patent portal vein with hepatopetal flow. GI recommendations appreciated. Needs outpatient follow up with [facility] transplant clinic. 6. Moderate right pleural effusion. We will start low-dose of diuretics upon discharge. 7. KEYUR on CKD. Nephrology following, recommendations appreciated. creatinine is improving. 8. GI/DVT prophylaxis. Pepcid and SCDs. Family requesting rehabilitation at [facility] in [place]. sr. social media & mobile manager evaluation appreciated. Pending rehabilitation placement. Pending insurance confirmation. Patient's prognosis is very guarded. Patient is DNI DNR. Upon discharge patient will follow up with PMD Dr. Bishop. Patient will follow up with [facility] clinic.
[2018-08-25] MEDS: oxyCODONE 5 mg Immediate Release Tab PO PRN ×3 (06:52→21:15)
[2018-08-25] MEDS: Sodium Chloride 0.9% 1,000 ML IV SCH (07:00)
[2018-08-25 07:01] LABS: BASO % 0.4 % (0.0-3.0); EOS % 3.2 % (1.5-5.0); GRAN # 6.29 (1.4-6.5); GRAN % 67.7 % (50.0-68.0); HEMOGLOBIN 10.2 g/dL (14.0-18.0); LYMPH % 13.2 % (22.0-35.0); MEAN CELL VOLUME 100.3 fl (80.0-105.0); MEAN CORPUSCULAR HEMOGLOBIN 33.2 pg (25.0-35.0); MEAN CORPUSCULAR HGB CONC 33.1 g/dl (31.0-37.0); MEAN PLATELET VOLUME 10.5 fl (7.0-11.0); MONO % 15.5 % (1.0-6.0); RBC 3.07 10^6/uL (3.5-6.1); RED CELL DISTRIBUTION WIDTH 18.6 % (11.5-14.5); WHITE BLOOD COUNT 9.3 10^3/ul (4.5-11.0)
[2018-08-25 07:02] LABS: BASO # 0.04 K/mm3 (0.0-2.0); EOS # 0.3 (0.0-0.7); LYMPH # 1.2 (1.2-3.4); MONO # 1.4 (0.1-0.6)
[2018-08-25 07:31] LABS: ALB/GLOB RATIO 0.7 (1.1-1.8); ALBUMIN 2.6 g/dL (3.0-4.8); CALCIUM 8.6 mg/dL (8.4-10.5)
--- NOTE | 2018-08-25 09:36 | CP.PCM.PN ---
<Jenin Maki - Last Filed: 08/25/18 14:59> Subjective - Date & Time of Evaluation Date of Evaluation: 08/25/18 Time of Evaluation: 09:35 - Subjective Subjective: Jenni Maki DO, PGY-2: Nephrology Progress Note for Dr. De Oliveira Patient was seen and examined at bedside. He reports eating 50% of his meals. Track Greaser mentioned the use of Megace or Periactin in increasing the patient's appetite. The primary team was informed about the the aforementioned recommendations. Otherwise, patient denies any nausea, vomiting, diarrhea, or dyspnea. Objective - Vital Signs/Intake and Output Vital Signs (last 24 hours): Temp Pulse Resp BP Pulse Ox 97.7 F 75 18 111/65 96 08/25/18 08:17 08/25/18 09:15 08/25/18 08:17 08/25/18 09:15 08/25/18 08:17 Intake and Output: 08/25/18 08/25/18 06:59 18:59 Intake Total 1640 Output Total 200 Balance 1440 - Medications Medications: Current Medications Albuterol/Ipratropium (Duoneb 3 Mg/0.5 Mg (3 Ml) Ud) 3 ml IH [id number] [facility] Last Admin: 08/25/18 07:09 Dose: 3 ml Famotidine (Pepcid) 20 mg PO DAILY [facility] Last Admin: 08/25/18 09:15 Dose: 20 mg Sodium Chloride (Sodium Chloride 0.9%) 1,000 mls @ 50 mls/hr IV .Q20H [facility] Last Admin: 08/25/18 07:00 Dose: 50 mls/hr Iron Sucrose 100 mg/ Sodium (Chloride) 105 mls @ 210 mls/hr IVPB DAILY [facility] Stop: 08/28/18 10:29 Last Admin: 08/25/18 09:15 Dose: 210 mls/hr Lactulose (Enulose) 20 gm PO BID [facility] Last Admin: 08/22/18 11:35 Dose: Not Given Lorazepam (Ativan) 0.5 mg IVP Q6H PRN; Protocol PRN Reason: Anxiety Last Admin: 08/21/18 22:33 Dose: 0.5 mg Midodrine (Proamatine) 10 mg PO TID [facility] Last Admin: 08/25/18 09:15 Dose: 10 mg Ondansetron HCl (Zofran Inj) 4 mg IVP Q6H PRN PRN Reason: Nausea/Vomiting Last Admin: 08/20/18 00:29 Dose: 4 mg Oxycodone HCl (Oxycodone Immediate Release Tab) 5 mg PO Q6H PRN PRN Reason: Pain, severe (8-10) Last Admin: 08/25/18 06:52 Dose: 5 mg Propranolol HCl (Inderal) 10 mg PO BID [facility] Last Admin: 08/25/18 09:15 Dose: 10 mg Rifaximin (Xifaxan) 550 mg PO BID [facility]; Protocol Last Admin: 08/25/18 09:15 Dose: 550 mg - Labs Labs: 08/25/18 06:00 08/25/18 06:00 PT 16.1 SECONDS (9.4-12.5) H 08/11/18 02:05 INR 1.40 08/11/18 02:05 - Constitutional Appears: No Acute Distress, Cachectic - Head Exam Head Exam: ATRAUMATIC, NORMOCEPHALIC Additional comments: temporal wasting noted - Eye Exam Eye Exam: EOMI, Normal appearance - ENT Exam ENT Exam: Mucous Membranes Moist - Neck Exam Neck Exam: Normal Inspection - Respiratory Exam Respiratory Exam: absent: Accessory Muscle Use Assessment and Plan (1) KEYUR (acute kidney injury) Status: Acute (2) Ascites Status: Acute (3) CKD (chronic kidney disease) Status: Chronic - Assessment and Plan (Free Text) Assessment: We will discontinue patients IVF as patient is eating more. As always, thank you for allowing us to participate in the care of this patient Case was reviewed and discussed with attending physician, Dr. De Oliveira <Wood De Oliveira - Last Filed: 08/26/18 03:42> Objective - Vital Signs/Intake and Output Vital Signs (last 24 hours): Temp Pulse Resp BP Pulse Ox 97.7 F 82 20 117/67 97 08/25/18 22:00 08/25/18 22:00 08/25/18 22:00 08/25/18 22:00 08/25/18 22:00 - Medications Medications: Current Medications Albuterol/Ipratropium (Duoneb 3 Mg/0.5 Mg (3 Ml) Ud) 3 ml IH [id number] [facility] Last Admin: 08/26/18 01:43 Dose: 3 ml Enoxaparin Sodium (Lovenox) 30 mg SC DAILY [facility]; Protocol Last Admin: 08/25/18 15:02 Dose: 30 mg Famotidine (Pepcid) 20 mg PO DAILY [facility] Last Admin: 08/25/18 09:15 Dose: 20 mg Iron Sucrose 100 mg/ Sodium (Chloride) 105 mls @ 210 mls/hr IVPB DAILY [facility] Stop: 08/28/18 10:29 Last Admin: 08/25/18 09:15 Dose: 210 mls/hr Lactulose (Enulose) 20 gm PO BID [facility] Last Admin: 08/22/18 11:35 Dose: Not Given Lorazepam (Ativan) 0.5 mg IVP Q6H PRN; Protocol PRN Reason: Anxiety Last Admin: 08/21/18 22:33 Dose: 0.5 mg Megestrol Acetate (Megace) 400 mg PO DAILY [facility] Last Admin: 08/25/18 15:01 Dose: 400 mg Midodrine (Proamatine) 10 mg PO TID [facility] Last Admin: 08/25/18 18:26 Dose: 10 mg Ondansetron HCl (Zofran Inj) 4 mg IVP Q6H PRN PRN Reason: Nausea/Vomiting Last Admin: 08/20/18 00:29 Dose: 4 mg Oxycodone HCl (Oxycodone Immediate Release Tab) 5 mg PO Q6H PRN PRN Reason: Pain, severe (8-10) Last Admin: 08/25/18 21:15 Dose: 5 mg Propranolol HCl (Inderal) 10 mg PO BID [facility] Last Admin: 08/25/18 18:26 Dose: 10 mg Rifaximin (Xifaxan) 550 mg PO BID [facility]; Protocol Last Admin: 08/25/18 18:26 Dose: 550 mg - Labs Labs: 08/25/18 06:00 08/25/18 06:00 PT 16.1 SECONDS (9.4-12.5) H 08/11/18 02:05 INR 1.40 08/11/18 02:05 Assessment and Plan (1) KEYUR (acute kidney injury) Status: Acute (2) Ascites Status: Acute (3) CKD (chronic kidney disease) Status: Chronic Attending/Attestation - Attestation I have personally seen and examined this patient.: Yes I have fully participated in the care of the patient.: Yes I have reviewed all pertinent clinical information, including history, physical exam and plan: Yes Notes (Text): Patient seen and examined; I agree with the resident's note as above with the following additions/edits: Patient with cryptogenic cirrhosis, mild CKD, recurrent ascites, admitted with large ascites accumulation, underwent large volume paracentesis twice, now with abdominal catheter for weekly drainage; KEYUR improving, likely pre-renal with some ATN component; PO intake improving; off diuretics and has been on IVF; Stable volume and electrolyte status; abdomen mildly distended, s/p 2.2 L ascites fluid removed yesterday; -Will stop all IVF; -Avoid nephrotoxic agents;
[2018-08-25] MEDS: Megestrol Acetate 40 mg/ml Cup PO SCH (15:01)
[2018-08-25] MEDS: Enoxaparin 30 mg Syringe SC SCH (15:02)
[2018-08-26] MEDS: Albuterol-Ipratrop 3 mg / 0.5 (3 ml) UD IH SCH ×2 (01:43→07:57)
[2018-08-26 06:28] LABS: BASO # 0.05 K/mm3 (0.0-2.0); BASO % 0.4 % (0.0-3.0); EOS # 0.3 (0.0-0.7); EOS % 2.4 % (1.5-5.0); GRAN # 7.38 (1.4-6.5); GRAN % 64.5 % (50.0-68.0); HEMOGLOBIN 10.4 g/dL (14.0-18.0); LYMPH # 1.3 (1.2-3.4); LYMPH % 11.5 % (22.0-35.0); MEAN CELL VOLUME 100.3 fl (80.0-105.0); MEAN CORPUSCULAR HGB CONC 32.9 g/dl (31.0-37.0); MONO # 2.4 (0.1-0.6); MONO % 21.2 % (1.0-6.0); PLATELET COUNT 108 10^3/uL (120.0-450.0); RBC 3.15 10^6/uL (3.5-6.1); RED CELL DISTRIBUTION WIDTH 18.7 % (11.5-14.5); WHITE BLOOD COUNT 11.4 10^3/ul (4.5-11.0)
[2018-08-26] MEDS: oxyCODONE 5 mg Immediate Release Tab PO PRN ×2 (06:30→15:05)
[2018-08-26 06:34] LABS: ALB/GLOB RATIO 0.6 (1.1-1.8); ALBUMIN 2.7 g/dL (3.0-4.8); CALCIUM 8.9 mg/dL (8.4-10.5)
--- NOTE | 2018-08-26 07:09 | CP.PCM.PN ---
<Jenifer Greenberg - Last Filed: 08/26/18 12:36> Subjective - Date & Time of Evaluation Date of Evaluation: 08/26/18 Time of Evaluation: 07:09 - Subjective Subjective: Pgy3 Progress note for Dr. Rosales Patient seen and examined at bedside. Nursing reports no acute events overnight. Patient reports feeling better this AM and wants to get out of bed and sit on a chair. He denied acute complaints of fever, chills, chest pain, SOB, abd pain, nausea, bowel/bladder complaints, pain/swelling in his legs b/l. Objective - Vital Signs/Intake and Output Vital Signs (last 24 hours): Temp Pulse Resp BP Pulse Ox 97.7 F 82 20 117/67 97 08/25/18 22:00 08/25/18 22:00 08/25/18 22:00 08/25/18 22:00 08/25/18 22:00 Intake and Output: 08/26/18 08/26/18 06:59 18:59 Intake Total 180 Output Total 300 Balance -120 - Medications Medications: Current Medications Albuterol/Ipratropium (Duoneb 3 Mg/0.5 Mg (3 Ml) Ud) 3 ml IH [id number] COUNTS INCLUDE 234 BEDS AT THE [facility] Last Admin: 08/26/18 01:43 Dose: 3 ml Enoxaparin Sodium (Lovenox) 30 mg SC DAILY [facility]S [facility]CLUDE 234 BEDS AT THE [facility]; Protocol Last Admin: 08/25/18 15:02 Dose: 30 mg Famotidine (Pepcid) 20 mg PO DAILY [facility]S INCLUDE 234 BEDS AT THE [facility] Last Admin: 08/25/18 09:15 Dose: 20 mg Iron Sucrose 100 mg/ Sodium (Chloride) 105 mls @ 210 mls/hr IVPB DAILY COUNTS INCLUDE 234 BEDS AT THE [facility] Stop: 08/28/18 10:29 Last Admin: 08/25/18 09:15 Dose: 210 mls/hr Lactulose (Enulose) 20 gm PO BID COUNTS INCLUDE 234 BEDS AT THE [facility] Last Admin: 08/22/18 11:35 Dose: Not Given Lorazepam (Ativan) 0.5 mg IVP Q6H PRN; Protocol PRN Reason: Anxiety Last Admin: 08/21/18 22:33 Dose: 0.5 mg Megestrol Acetate (Megace) 400 mg PO DAILY [facility]S INCLUDE 234 BEDS AT THE [facility] Last Admin: 08/25/18 15:01 Dose: 400 mg Midodrine (Proamatine) 10 mg PO TID [facility]S INCLUDE 234 BEDS AT THE [facility] Last Admin: 08/25/18 18:26 Dose: 10 mg Ondansetron HCl (Zofran Inj) 4 mg IVP Q6H PRN PRN Reason: Nausea/Vomiting Last Admin: 08/20/18 00:29 Dose: 4 mg Oxycodone HCl (Oxycodone Immediate Release Tab) 5 mg PO Q6H PRN PRN Reason: Pain, severe (8-10) Last Admin: 08/26/18 06:30 Dose: 5 mg Propranolol HCl (Inderal) 10 mg PO BID COUNTS INCLUDE 234 BEDS AT THE [facility] Last Admin: 08/25/18 18:26 Dose: 10 mg Rifaximin (Xifaxan) 550 mg PO BID COUNTS INCLUDE 234 BEDS AT THE [facility]; Protocol Last Admin: 08/25/18 18:26 Dose: 550 mg - Labs Labs: 08/26/18 05:00 08/26/18 05:00 PT 16.1 SECONDS (9.4-12.5) H 08/11/18 02:05 INR 1.40 08/11/18 02:05 - Constitutional Appears: No Acute Distress, Older Than Stated Age, Cachectic, Chronically Ill - Head Exam Head Exam: ATRAUMATIC, NORMAL INSPECTION, NORMOCEPHALIC - Eye Exam Eye Exam: EOMI, Normal appearance, PERRL. absent: Conjunctival injection, Scleral icterus - ENT Exam ENT Exam: Mucous Membranes Dry, Normal Oropharynx - Respiratory Exam Respiratory Exam: NORMAL BREATHING PATTERN. absent: Accessory Muscle Use, Rales, Rhonchi, Wheezes, Respiratory Distress - Cardiovascular Exam Cardiovascular Exam: RRR, +S1, +S2 - GI/Abdominal Exam GI & Abdominal Exam: Soft, Normal Bowel Sounds. absent: Firm, Guarding, Rigid, Tenderness Additional comments: indwelling cath in place - Rectal Exam Rectal Exam: Deferred - Extremities Exam Extremities Exam: Normal Capillary Refill, Normal Inspection. absent: Pedal Edema - Neurological Exam Neurological Exam: Alert, Awake, CN II-XII Intact, Oriented x3 - Psychiatric Exam Psychiatric exam: Normal Affect, Normal Mood - Skin Skin Exam: Dry, Intact, Pallor, Pallor Assessment and Plan - Assessment and Plan (Free Text) Assessment: 63yo male PMHx Liver Cirrhosis MELD 23 with chronic ascites, hepatic encephalopathy, esophageal varices, CKD stage III, HTN, CHF-pEF, and Afib presented to the ED with SOB and abdominal distension and pressure. Patient was admitted to medical services and is POD#15 paracentesis with 11.2 L removal of fluid and POD#10 PleurX catheter insertion. Plan: Patient has ascites secondary to nonalcoholic liver cirrhosis s/p PleurX cath eter placement POD#10. Patient is to be drained 1.2L every 4 days. GI reccs appreciated. Abdominal distention improving. Patient has been normotensive- continue midodrine. Patient's abdominal discomfort has improved and he has been having bowel movements. No objective fever- leukocytosis noted. Monitor off abx at this time. Patient has a history of hepatic encephalopathy- continue lactulose and rifaximin. Patient also has a history of esophageal varices and GI bleed in the past- continue propranolol. Patient's presented with KEYUR on CKD III which is improving- nephrology on board- reccs appreciated. Patient starte don megace PO for appetite stimulation. Has been encoraged to increase PO intake and be OOB to chair and work with physical therapy. Continue pain control and anti- emetics. GI ppx Pepcid and DVT ppx Lovenox and SCDs. Patient is pending rehab placement after insurance confirmation. Prognosis guarded and patient was made DNR/DNI. Patient will need outpatient f/u with [facility] transplant clinic and will f/u with PMD Dr. Bishop. Discussed with Dr. Bobby Greenberg PGY3 <Felicita Rosales - Last Filed: 08/27/18 15:11> Objective - Vital Signs/Intake and Output Vital Signs (last 24 hours): Temp Pulse Resp BP Pulse Ox 97.4 F L 81 16 96/52 L 99 08/27/18 14:50 08/27/18 14:50 08/27/18 14:50 08/27/18 14:50 08/27/18 14:50 Intake and Output: 08/27/18 08/27/18 06:59 18:59 Intake Total 240 Output Total 100 Balance 140 - Medications Medications: Current Medications Enoxaparin Sodium (Lovenox) 30 mg SC DAILY [facility]; Protocol Last Admin: 08/27/18 10:43 Dose: 30 mg Famotidine (Pepcid) 20 mg PO DAILY [facility] Last Admin: 08/27/18 10:43 Dose: 20 mg Iron Sucrose 100 mg/ Sodium (Chloride) 105 mls @ 210 mls/hr IVPB DAILY COUNTS INCLUDE 234 BEDS AT THE [facility] Stop: 08/28/18 10:29 Last Admin: 08/27/18 10:45 Dose: 210 mls/hr Lactulose (Enulose) 20 gm PO BID COUNTS INCLUDE 234 BEDS AT THE [facility] Last Admin: 08/22/18 11:35 Dose: Not Given Lorazepam (Ativan) 0.5 mg IVP Q6H PRN; Protocol PRN Reason: Anxiety Last Admin: 08/26/18 15:09 Dose: 0.5 mg Megestrol Acetate (Megace) 400 mg PO DAILY COUNTS INCLUDE 234 BEDS AT THE [facility] Last Admin: 08/27/18 10:43 Dose: 400 mg Midodrine (Proamatine) 10 mg PO TID COUNTS INCLUDE 234 BEDS AT THE [facility] Last Admin: 08/27/18 10:44 Dose: 10 mg Ondansetron HCl (Zofran Inj) 4 mg IVP Q6H PRN PRN Reason: Nausea/Vomiting Last Admin: 08/20/18 00:29 Dose: 4 mg Oxycodone HCl (Oxycodone Immediate Release Tab) 5 mg PO Q6H PRN PRN Reason: Pain, severe (8-10) Last Admin: 08/26/18 15:05 Dose: 5 mg Propranolol HCl (Inderal) 10 mg PO BID COUNTS INCLUDE 234 BEDS AT THE [facility] Last Admin: 08/27/18 10:44 Dose: 10 mg Rifaximin (Xifaxan) 550 mg PO BID COUNTS INCLUDE 234 BEDS AT THE [facility]; Protocol Last Admin: 08/27/18 10:43 Dose: 550 mg - Labs Labs: 08/27/18 06:00 08/27/18 06:00 PT 16.1 SECONDS (9.4-12.5) H 08/11/18 02:05 INR 1.40 08/11/18 02:05 Attending/Attestation - Attestation I have personally seen and examined this patient.: Yes I have fully participated in the care of the patient.: Yes I have reviewed all pertinent clinical information, including history, physical exam and plan: Yes Notes (Text): 08/27/18 15:10 Attending note; Patient seen and examined with resident. Feeling better today. Patient is 63-year-old male with past medical history significant for nonalcoholic liver cirrhosis, hepatic encephalopathy, chronic ascites, esophageal varices, chronic kidney disease, diastolic CHF, and paroxysmal atrial fibrillation that presented to the emergency room with shortness of breath. 1. Ascites secondary to non alcoholic liver cirrhosis. Status post Pleurx catheter. Instructions to drain 1.2 L every 4 days. Decreased abdominal distention. 2. History of hepatic encephalopathy; Continue with lactulose and xifaxin. 3.history of esophageal varices and GI bleed in the past. Continue propranolol. 4.Recurrent ascites; S/P pleurx cath placement 08/16/18. Abdominal Doppler ultrasound showed patent portal vein with hepatopetal flow. GI recommendations appreciated. Needs outpatient follow up with [facility] transplant clinic. 5. KEYUR on CKD. Nephrology following, recommendations appreciated. creatinine is improving. 6. GI/DVT prophylaxis. Pepcid and SCDs. Patient's prognosis is very guarded. Patient is DNI DNR. Pending placement. Upon discharge patient will follow up with PMD Dr. Bishop. Patient will follow up with [facility] clinic. 08/27/18 15:11
[2018-08-26 09:21] LABS: ANISOCYTOSIS 1+; EOSINOPHIL 2 % (0.0-3.0); HYPOCHROMIA 1+; LYMPHOCYTE 12 % (22.0-35.0); MONOCYTE 14 % (1.0-6.0); NEUTROPHIL 72 % (50.0-70.0); PLATELET ESTIMATE SL. DEC (NORMAL); POLYCHROMASIA SLIGHT
[2018-08-26] MEDS: Enoxaparin 30 mg Syringe SC SCH (10:43)
[2018-08-26] MEDS: Megestrol Acetate 40 mg/ml Cup PO SCH (10:43)
[2018-08-26 12:59] LABS: CREATININE,RANDOM URINE 115 mg/dL
[2018-08-27 07:43] LABS: BASO # 0.04 K/mm3 (0.0-2.0); BASO % 0.4 % (0.0-3.0); EOS # 0.2 (0.0-0.7); EOS % 2.2 % (1.5-5.0); GRAN # 6.13 (1.4-6.5); GRAN % 59.5 % (50.0-68.0); HEMOGLOBIN 10.5 g/dL (14.0-18.0); LYMPH # 1.4 (1.2-3.4); LYMPH % 13.1 % (22.0-35.0); MEAN CORPUSCULAR HEMOGLOBIN 33.9 pg (25.0-35.0); MEAN CORPUSCULAR HGB CONC 33.9 g/dl (31.0-37.0); MEAN PLATELET VOLUME 10.1 fl (7.0-11.0); MONO # 2.6 (0.1-0.6); MONO % 24.8 % (1.0-6.0); RBC 3.1 10^6/uL (3.5-6.1); RED CELL DISTRIBUTION WIDTH 19.1 % (11.5-14.5); WHITE BLOOD COUNT 10.3 10^3/ul (4.5-11.0)
[2018-08-27] MEDS: Enoxaparin 30 mg Syringe SC SCH (10:43)
[2018-08-27] MEDS: Megestrol Acetate 40 mg/ml Cup PO SCH (10:43)
[2018-08-27 11:03] LABS: ALBUMIN 2.9 g/dL (3.0-4.8); CALCIUM 9.4 mg/dL (8.4-10.5)
[2018-08-27 11:04] LABS: ALB/GLOB RATIO 0.6 (1.1-1.8)
--- NOTE | 2018-08-27 11:27 | CP.PCM.PN ---
<Lauryn Tidwell - Last Filed: 08/27/18 14:30> Subjective - Date & Time of Evaluation Date of Evaluation: 08/27/18 Time of Evaluation: 10:00 - Subjective Subjective: PGY-1 Lauryn Tidwell D.O. Medicine progress note for Dr. Rosales's service: Patient was seen and examined this morning. Patient was sleeping. He denied any significant pain. He is asking for his friends. He denied acute complaints of fever, chills, chest pain, SOB, abd pain, nausea, bowel/bladder complaints, pain/swelling in his legs b/l. Nurse reports that he is refusing some medications. Patient is due to be drained tomorrow. Objective - Vital Signs/Intake and Output Vital Signs (last 24 hours): Temp Pulse Resp BP Pulse Ox 98 F 88 20 106/62 96 08/27/18 08:26 08/27/18 10:44 08/27/18 08:26 08/27/18 10:44 08/27/18 08:26 Intake and Output: 08/27/18 08/27/18 06:59 18:59 Intake Total 240 Output Total 100 Balance 140 - Medications Medications: Current Medications Enoxaparin Sodium (Lovenox) 30 mg SC DAILY [facility]; Protocol Last Admin: 08/27/18 10:43 Dose: 30 mg Famotidine (Pepcid) 20 mg PO DAILY [facility] Last Admin: 08/27/18 10:43 Dose: 20 mg Iron Sucrose 100 mg/ Sodium (Chloride) 105 mls @ 210 mls/hr IVPB DAILY [facility] Stop: 08/28/18 10:29 Last Admin: 08/27/18 10:45 Dose: 210 mls/hr Lactulose (Enulose) 20 gm PO BID [facility] Last Admin: 08/22/18 11:35 Dose: Not Given Lorazepam (Ativan) 0.5 mg IVP Q6H PRN; Protocol PRN Reason: Anxiety Last Admin: 08/26/18 15:09 Dose: 0.5 mg Megestrol Acetate (Megace) 400 mg PO DAILY [facility] Last Admin: 08/27/18 10:43 Dose: 400 mg Midodrine (Proamatine) 10 mg PO TID [facility] Last Admin: 08/27/18 10:44 Dose: 10 mg Ondansetron HCl (Zofran Inj) 4 mg IVP Q6H PRN PRN Reason: Nausea/Vomiting Last Admin: 08/20/18 00:29 Dose: 4 mg Oxycodone HCl (Oxycodone Immediate Release Tab) 5 mg PO Q6H PRN PRN Reason: Pain, severe (8-10) Last Admin: 08/26/18 15:05 Dose: 5 mg Propranolol HCl (Inderal) 10 mg PO BID [facility] Last Admin: 08/27/18 10:44 Dose: 10 mg Rifaximin (Xifaxan) 550 mg PO BID [facility]; Protocol Last Admin: 08/27/18 10:43 Dose: 550 mg - Labs Labs: 08/27/18 06:00 08/27/18 06:00 PT 16.1 SECONDS (9.4-12.5) H 08/11/18 02:05 INR 1.40 08/11/18 02:05 - Constitutional Appears: No Acute Distress, Older Than Stated Age, Chronically Ill - Head Exam Head Exam: ATRAUMATIC, NORMAL INSPECTION - Eye Exam Eye Exam: EOMI, Normal appearance - ENT Exam ENT Exam: Mucous Membranes Moist, Normal Exam - Neck Exam Neck Exam: Normal Inspection - Respiratory Exam Respiratory Exam: Clear to Ausculation Bilateral, NORMAL BREATHING PATTERN - Cardiovascular Exam Cardiovascular Exam: REGULAR RHYTHM, +S1, +S2 - GI/Abdominal Exam GI & Abdominal Exam: Distended, Soft Additional comments: Pleur-X catheter in place RLQ - Rectal Exam Rectal Exam: Deferred - Extremities Exam Extremities Exam: Normal Inspection. absent: Pedal Edema - Back Exam Back Exam: NORMAL INSPECTION - Neurological Exam Neurological Exam: Alert, Awake, CN II-XII Intact, Oriented x3 - Psychiatric Exam Psychiatric exam: Normal Affect, Normal Mood - Skin Skin Exam: Dry, Intact, Normal Color, Warm Assessment and Plan - Assessment and Plan (Free Text) Assessment: Patient is a 63 yo male with PMH of nonalcoholic Liver Cirrhosis MELD 23 with chronic ascites, hepatic encephalopathy, esophageal varices, CKD stage III, HTN, CHF-pEF, and Afib who presented to the ED with SOB and abdominal distension and pressure. Patient was admitted to medical services and is POD#16 paracentesis with 11.2 L removal of fluid and POD#11 PleurX catheter insertion, which is drained every 4 days. Patient prognosis is very poor and palliative was consulted. After discussion with patient and his family, patient decided to be DNR/DNI; however, he is not interested in hospice services at this time. Plan: Ascites from Decompensated Liver Cirrhosis - PleurX catheter placement POD#10- patient is to be drained 1.2 L every 4 days - Rifaximin 550 mg PO BID - Lactulose 10 mg PO BID - Midodrine 10 mg PO TID - Zofran 4 mg IV Q6H PRN - Oxycodone 5 mg PO Q6H PRN - Surg consulted (Rupali) - IR consulted (Zak) - PT/OT- encourage OOB to chair KEYUR on CKD Stage III, improving- 2/2 poor PO intake - Megace 400 mg PO daily - Avoid nephrotoxic medications - Nephro consulted (Alvino)- hold diuretics indefinitely Constipation, improving- 2/2 to opiate use - Lactulose 10 mg PO BID HTN with h/o esophageal varices - Propranolol 10 mg PO PID Anxiety - Ativan 0.5 mg IV Q6H PRN Dispo: pending rehab placement after insurance confirmation IVF: not indicated Diet: regular, supplements GI ppx: Pepcid VTE ppx: Lovenox 30 mg SC daily Code status: DNR/DNI- palliative consulted Case was discussed with attending, Dr. Rosales. <Felicita Rosales - Last Filed: 08/27/18 15:12> Objective - Vital Signs/Intake and Output Vital Signs (last 24 hours): Temp Pulse Resp BP Pulse Ox 97.4 F L 81 16 96/52 L 99 08/27/18 14:50 08/27/18 14:50 08/27/18 14:50 08/27/18 14:50 08/27/18 14:50 Intake and Output: 08/27/18 08/27/18 06:59 18:59 Intake Total 240 Output Total 100 Balance 140 - Medications Medications: Current Medications Enoxaparin Sodium (Lovenox) 30 mg SC DAILY [facility]; Protocol Last Admin: 08/27/18 10:43 Dose: 30 mg Famotidine (Pepcid) 20 mg PO DAILY [facility] Last Admin: 08/27/18 10:43 Dose: 20 mg Iron Sucrose 100 mg/ Sodium (Chloride) 105 mls @ 210 mls/hr IVPB DAILY [facility] Stop: 08/28/18 10:29 Last Admin: 08/27/18 10:45 Dose: 210 mls/hr Lactulose (Enulose) 20 gm PO BID [facility] Last Admin: 08/22/18 11:35 Dose: Not Given Lorazepam (Ativan) 0.5 mg IVP Q6H PRN; Protocol PRN Reason: Anxiety Last Admin: 08/26/18 15:09 Dose: 0.5 mg Megestrol Acetate (Megace) 400 mg PO DAILY [facility] Last Admin: 08/27/18 10:43 Dose: 400 mg Midodrine (Proamatine) 10 mg PO TID [facility] Last Admin: 08/27/18 10:44 Dose: 10 mg Ondansetron HCl (Zofran Inj) 4 mg IVP Q6H PRN PRN Reason: Nausea/Vomiting Last Admin: 08/20/18 00:29 Dose: 4 mg Oxycodone HCl (Oxycodone Immediate Release Tab) 5 mg PO Q6H PRN PRN Reason: Pain, severe (8-10) Last Admin: 08/26/18 15:05 Dose: 5 mg Propranolol HCl (Inderal) 10 mg PO BID [facility] Last Admin: 08/27/18 10:44 Dose: 10 mg Rifaximin (Xifaxan) 550 mg PO BID [facility]; Protocol Last Admin: 08/27/18 10:43 Dose: 550 mg - Labs Labs: 08/27/18 06:00 08/27/18 06:00 PT 16.1 SECONDS (9.4-12.5) H 08/11/18 02:05 INR 1.40 08/11/18 02:05 Attending/Attestation - Attestation I have personally seen and examined this patient.: Yes I have fully participated in the care of the patient.: Yes I have reviewed all pertinent clinical information, including history, physical exam and plan: Yes Notes (Text): 08/27/18 15:11 Attending note; Patient seen and examined with resident. Feeling better today. Patient is 63-year-old male with past medical history significant for nonalcoholic liver cirrhosis, hepatic encephalopathy, chronic ascites, esophageal varices, chronic kidney disease, diastolic CHF, and paroxysmal atrial fibrillation that presented to the emergency room with shortness of breath. 1. Ascites secondary to non alcoholic liver cirrhosis. Status post Pleurx catheter. Instructions to drain 1.2 L every 4 days. Decreased abdominal distention. 2. History of hepatic encephalopathy; Continue with lactulose and xifaxin. 3.history of esophageal varices and GI bleed in the past. Continue propranolol. 4.Recurrent ascites; S/P pleurx cath placement 08/16/18. Abdominal Doppler ultrasound showed patent portal vein with hepatopetal flow. GI recommendations appreciated. Needs outpatient follow up with [facility] [place] transplant clinic. 5. KEYUR on CKD. Nephrology following, recommendations appreciated. creatinine is improving. 6. GI/DVT prophylaxis. Pepcid and SCDs. Patient's prognosis is very guarded. Patient is DNI DNR. Pending placement. We will talk to case assistant/social science analyst tomorrow for discharge planning. Upon discharge patient will follow up with PMD Dr. Bishop. Patient will follow up with [facility] [place] clinic.
[2018-08-27] MEDS: oxyCODONE 5 mg Immediate Release Tab PO PRN (15:16)
[2018-08-28 06:44] LABS: BASO # 0.02 K/mm3 (0.0-2.0); BASO % 0.3 % (0.0-3.0); EOS # 0.2 (0.0-0.7); EOS % 2.5 % (1.5-5.0); GRAN # 4.87 (1.4-6.5); GRAN % 63.7 % (50.0-68.0); HEMOGLOBIN 9.7 g/dL (14.0-18.0); LYMPH % 12.5 % (22.0-35.0); MEAN CELL VOLUME 100.7 fl (80.0-105.0); MEAN CORPUSCULAR HEMOGLOBIN 33.3 pg (25.0-35.0); MEAN CORPUSCULAR HGB CONC 33.1 g/dl (31.0-37.0); MEAN PLATELET VOLUME 9.4 fl (7.0-11.0); MONO # 1.6 (0.1-0.6); RBC 2.91 10^6/uL (3.5-6.1); RED CELL DISTRIBUTION WIDTH 19.3 % (11.5-14.5); WHITE BLOOD COUNT 7.6 10^3/ul (4.5-11.0)
[2018-08-28 07:24] LABS: ALB/GLOB RATIO 0.6 (1.1-1.8); ALBUMIN 2.7 g/dL (3.0-4.8); CALCIUM 9.5 mg/dL (8.4-10.5)
[2018-08-28] MEDS: Megestrol Acetate 40 mg/ml Cup PO SCH (10:13)
[2018-08-28] MEDS: Enoxaparin 30 mg Syringe SC SCH (10:13)
[2018-08-28] MEDS: oxyCODONE 5 mg Immediate Release Tab PO PRN (15:39)
--- NOTE | 2018-08-28 21:29 | CP.PCM.PN ---
Subjective - Date & Time of Evaluation Date of Evaluation: 08/28/18 Time of Evaluation: 10:00 - Subjective Subjective: Reports tolerating diet; no nausea/vomiting/diarrhea; Objective - Vital Signs/Intake and Output Vital Signs (last 24 hours): Temp Pulse Resp BP Pulse Ox 98.1 F 80 18 124/51 L 99 08/28/18 14:00 08/28/18 14:00 08/28/18 14:00 08/28/18 14:00 08/28/18 14:00 Intake and Output: 08/28/18 08/29/18 18:59 06:59 Output Total 2500 200 Balance -2500 -200 - Medications Medications: Current Medications Enoxaparin Sodium (Lovenox) 30 mg SC DAILY [facility]; Protocol Last Admin: 08/28/18 10:13 Dose: 30 mg Famotidine (Pepcid) 20 mg PO DAILY [facility] Last Admin: 08/28/18 10:13 Dose: 20 mg Lactulose (Enulose) 20 gm PO BID [facility] Last Admin: 08/22/18 11:35 Dose: Not Given Lorazepam (Ativan) 0.5 mg IVP Q6H PRN; Protocol PRN Reason: Anxiety Last Admin: 08/26/18 15:09 Dose: 0.5 mg Megestrol Acetate (Megace) 400 mg PO DAILY [facility] Last Admin: 08/28/18 10:13 Dose: 400 mg Midodrine (Proamatine) 10 mg PO TID [facility] Last Admin: 08/28/18 17:50 Dose: 10 mg Ondansetron HCl (Zofran Inj) 4 mg IVP Q6H PRN PRN Reason: Nausea/Vomiting Last Admin: 08/20/18 00:29 Dose: 4 mg Oxycodone HCl (Oxycodone Immediate Release Tab) 5 mg PO Q6H PRN PRN Reason: Pain, severe (8-10) Last Admin: 08/28/18 15:39 Dose: 5 mg Propranolol HCl (Inderal) 10 mg PO BID [facility] Last Admin: 08/28/18 17:53 Dose: 10 mg Rifaximin (Xifaxan) 550 mg PO BID [facility]; Protocol Last Admin: 08/28/18 17:50 Dose: 550 mg - Labs Labs: 08/28/18 06:20 08/28/18 06:20 PT 16.1 SECONDS (9.4-12.5) H 08/11/18 02:05 INR 1.40 08/11/18 02:05 - Constitutional Appears: Non-toxic, Cachectic - Eye Exam Eye Exam: Normal appearance - Respiratory Exam Respiratory Exam: Clear to Ausculation Bilateral. absent: Respiratory Distress - Cardiovascular Exam Cardiovascular Exam: RRR, +S1, +S2 - GI/Abdominal Exam GI & Abdominal Exam: Distended, Soft. absent: Tenderness - Extremities Exam Additional comments: minimal proximal leg edema b/l - Neurological Exam Neurological Exam: Alert, Awake - Psychiatric Exam Psychiatric exam: absent: Agitated Assessment and Plan (1) KEYUR (acute kidney injury) Assessment & Plan: Serum creatinine still well above baseline but stable; should monitor periodically; cannot rule out type 2 HRS; s/p 2.5 L ascites drainage today, no need for albumin replacement; -continue to hold diuretics; -avoid nephrotoxic agents; -continue midodrine Status: Acute (2) Ascites Status: Acute (3) CKD (chronic kidney disease) Status: Chronic
--- NOTE | 2018-08-29 07:01 | CP.PCM.PN ---
<Adams Holliday - Last Filed: 08/29/18 07:01> Subjective - Date & Time of Evaluation Date of Evaluation: 08/29/18 Time of Evaluation: 07:01 - Subjective Subjective: INTERNAL MEDICINE PROGRESS NOTE FOR DR. MIRA Holliday DEliasO. PGY-1 Objective - Vital Signs/Intake and Output Vital Signs (last 24 hours): Temp Pulse Resp BP Pulse Ox 98.1 F 80 18 124/51 L 99 08/28/18 14:00 08/28/18 14:00 08/28/18 14:00 08/28/18 14:00 08/28/18 14:00 Intake and Output: 08/29/18 08/29/18 06:59 18:59 Output Total 200 Balance -200 - Medications Medications: Current Medications Enoxaparin Sodium (Lovenox) 30 mg SC DAILY [facility]; Protocol Last Admin: 08/28/18 10:13 Dose: 30 mg Famotidine (Pepcid) 20 mg PO DAILY [facility] Last Admin: 08/28/18 10:13 Dose: 20 mg Lactulose (Enulose) 20 gm PO BID [facility] Last Admin: 08/22/18 11:35 Dose: Not Given Lorazepam (Ativan) 0.5 mg IVP Q6H PRN; Protocol PRN Reason: Anxiety Last Admin: 08/26/18 15:09 Dose: 0.5 mg Megestrol Acetate (Megace) 400 mg PO DAILY [facility] Last Admin: 08/28/18 10:13 Dose: 400 mg Midodrine (Proamatine) 10 mg PO TID [facility] Last Admin: 08/28/18 17:50 Dose: 10 mg Ondansetron HCl (Zofran Inj) 4 mg IVP Q6H PRN PRN Reason: Nausea/Vomiting Last Admin: 08/20/18 00:29 Dose: 4 mg Oxycodone HCl (Oxycodone Immediate Release Tab) 5 mg PO Q6H PRN PRN Reason: Pain, severe (8-10) Last Admin: 08/28/18 15:39 Dose: 5 mg Propranolol HCl (Inderal) 10 mg PO BID [facility] Last Admin: 08/28/18 17:53 Dose: 10 mg Rifaximin (Xifaxan) 550 mg PO BID [facility]; Protocol Last Admin: 08/28/18 17:50 Dose: 550 mg - Labs Labs: 08/28/18 06:20 08/28/18 06:20 PT 16.1 SECONDS (9.4-12.5) H 08/11/18 02:05 INR 1.40 08/11/18 02:05 <Kandi Dixon R - Last Filed: 08/29/18 07:36> Objective - Vital Signs/Intake and Output Vital Signs (last 24 hours): Temp Pulse Resp BP Pulse Ox 98.1 F 80 18 124/51 L 99 08/28/18 14:00 08/28/18 14:00 08/28/18 14:00 08/28/18 14:00 08/28/18 14:00 Intake and Output: 08/29/18 08/29/18 06:59 18:59 Output Total 200 Balance -200 - Medications Medications: Current Medications Enoxaparin Sodium (Lovenox) 30 mg SC DAILY [facility]; Protocol Last Admin: 08/28/18 10:13 Dose: 30 mg Famotidine (Pepcid) 20 mg PO DAILY [facility] Last Admin: 08/28/18 10:13 Dose: 20 mg Lactulose (Enulose) 20 gm PO BID [facility] Last Admin: 08/22/18 11:35 Dose: Not Given Lorazepam (Ativan) 0.5 mg IVP Q6H PRN; Protocol PRN Reason: Anxiety Last Admin: 08/26/18 15:09 Dose: 0.5 mg Megestrol Acetate (Megace) 400 mg PO DAILY [facility] Last Admin: 08/28/18 10:13 Dose: 400 mg Midodrine (Proamatine) 10 mg PO TID [facility] Last Admin: 08/28/18 17:50 Dose: 10 mg Ondansetron HCl (Zofran Inj) 4 mg IVP Q6H PRN PRN Reason: Nausea/Vomiting Last Admin: 08/20/18 00:29 Dose: 4 mg Oxycodone HCl (Oxycodone Immediate Release Tab) 5 mg PO Q6H PRN PRN Reason: Pain, severe (8-10) Last Admin: 08/28/18 15:39 Dose: 5 mg Propranolol HCl (Inderal) 10 mg PO BID [facility] Last Admin: 08/28/18 17:53 Dose: 10 mg Rifaximin (Xifaxan) 550 mg PO BID [facility]; Protocol Last Admin: 08/28/18 17:50 Dose: 550 mg - Labs Labs: 08/29/18 07:00 08/29/18 07:00 PT 16.1 SECONDS (9.4-12.5) H 08/11/18 02:05 INR 1.40 08/11/18 02:05 Attending/Attestation - Attestation Notes (Text): In error, please disregard
--- NOTE | 2018-08-29 07:01 | CP.PCM.PN ---
<Adams Holliday - Last Filed: 08/29/18 07:00> Subjective - Date & Time of Evaluation Date of Evaluation: 08/28/18 Time of Evaluation: 11:00 - Subjective Subjective: INTERNAL MEDICINE PROGRESS NOTE FOR DR. MIRA Holliday DEliasO. PGY-1 Objective - Vital Signs/Intake and Output Vital Signs (last 24 hours): Temp Pulse Resp BP Pulse Ox 98.1 F 80 18 124/51 L 99 08/28/18 14:00 08/28/18 14:00 08/28/18 14:00 08/28/18 14:00 08/28/18 14:00 Intake and Output: 08/29/18 08/29/18 06:59 18:59 Output Total 200 Balance -200 - Medications Medications: Current Medications Enoxaparin Sodium (Lovenox) 30 mg SC DAILY [facility]; Protocol Last Admin: 08/28/18 10:13 Dose: 30 mg Famotidine (Pepcid) 20 mg PO DAILY [facility] Last Admin: 08/28/18 10:13 Dose: 20 mg Lactulose (Enulose) 20 gm PO BID [facility] Last Admin: 08/22/18 11:35 Dose: Not Given Lorazepam (Ativan) 0.5 mg IVP Q6H PRN; Protocol PRN Reason: Anxiety Last Admin: 08/26/18 15:09 Dose: 0.5 mg Megestrol Acetate (Megace) 400 mg PO DAILY [facility] Last Admin: 08/28/18 10:13 Dose: 400 mg Midodrine (Proamatine) 10 mg PO TID [facility] Last Admin: 08/28/18 17:50 Dose: 10 mg Ondansetron HCl (Zofran Inj) 4 mg IVP Q6H PRN PRN Reason: Nausea/Vomiting Last Admin: 08/20/18 00:29 Dose: 4 mg Oxycodone HCl (Oxycodone Immediate Release Tab) 5 mg PO Q6H PRN PRN Reason: Pain, severe (8-10) Last Admin: 08/28/18 15:39 Dose: 5 mg Propranolol HCl (Inderal) 10 mg PO BID [facility] Last Admin: 08/28/18 17:53 Dose: 10 mg Rifaximin (Xifaxan) 550 mg PO BID [facility]; Protocol Last Admin: 08/28/18 17:50 Dose: 550 mg - Labs Labs: 08/28/18 06:20 08/28/18 06:20 PT 16.1 SECONDS (9.4-12.5) H 08/11/18 02:05 INR 1.40 08/11/18 02:05 <Kandi Dixon R - Last Filed: 08/29/18 07:36> Objective - Vital Signs/Intake and Output Vital Signs (last 24 hours): Temp Pulse Resp BP Pulse Ox 98.1 F 80 18 124/51 L 99 08/28/18 14:00 08/28/18 14:00 08/28/18 14:00 08/28/18 14:00 08/28/18 14:00 Intake and Output: 08/29/18 08/29/18 06:59 18:59 Output Total 200 Balance -200 - Medications Medications: Current Medications Enoxaparin Sodium (Lovenox) 30 mg SC DAILY [facility]; Protocol Last Admin: 08/28/18 10:13 Dose: 30 mg Famotidine (Pepcid) 20 mg PO DAILY [facility] Last Admin: 08/28/18 10:13 Dose: 20 mg Lactulose (Enulose) 20 gm PO BID [facility] Last Admin: 08/22/18 11:35 Dose: Not Given Lorazepam (Ativan) 0.5 mg IVP Q6H PRN; Protocol PRN Reason: Anxiety Last Admin: 08/26/18 15:09 Dose: 0.5 mg Megestrol Acetate (Megace) 400 mg PO DAILY [facility] Last Admin: 08/28/18 10:13 Dose: 400 mg Midodrine (Proamatine) 10 mg PO TID [facility] Last Admin: 08/28/18 17:50 Dose: 10 mg Ondansetron HCl (Zofran Inj) 4 mg IVP Q6H PRN PRN Reason: Nausea/Vomiting Last Admin: 08/20/18 00:29 Dose: 4 mg Oxycodone HCl (Oxycodone Immediate Release Tab) 5 mg PO Q6H PRN PRN Reason: Pain, severe (8-10) Last Admin: 08/28/18 15:39 Dose: 5 mg Propranolol HCl (Inderal) 10 mg PO BID [facility] Last Admin: 08/28/18 17:53 Dose: 10 mg Rifaximin (Xifaxan) 550 mg PO BID [facility]; Protocol Last Admin: 08/28/18 17:50 Dose: 550 mg - Labs Labs: 08/29/18 07:00 08/29/18 07:00 PT 16.1 SECONDS (9.4-12.5) H 08/11/18 02:05 INR 1.40 08/11/18 02:05 Attending/Attestation - Attestation Notes (Text): In error, please disregard
[2018-08-29 07:16] LABS: BASO # 0.01 K/mm3 (0.0-2.0); BASO % 0.1 % (0.0-3.0); EOS # 0.2 (0.0-0.7); EOS % 2.4 % (1.5-5.0); GRAN # 4.74 (1.4-6.5); HEMOGLOBIN 9.6 g/dL (14.0-18.0); LYMPH # 1.1 (1.2-3.4); LYMPH % 14.8 % (22.0-35.0); MEAN CELL VOLUME 99.6 fl (80.0-105.0); MEAN CORPUSCULAR HEMOGLOBIN 33.8 pg (25.0-35.0); MEAN CORPUSCULAR HGB CONC 33.9 g/dl (31.0-37.0); MEAN PLATELET VOLUME 8.8 fl (7.0-11.0); MONO # 1.4 (0.1-0.6); MONO % 18.7 % (1.0-6.0); RBC 2.84 10^6/uL (3.5-6.1); RED CELL DISTRIBUTION WIDTH 19.7 % (11.5-14.5); WHITE BLOOD COUNT 7.4 10^3/ul (4.5-11.0)
[2018-08-29 07:34] LABS: ALB/GLOB RATIO 0.6 (1.1-1.8); ALBUMIN 2.6 g/dL (3.0-4.8); CALCIUM 9.3 mg/dL (8.4-10.5)
[2018-08-29] MEDS: oxyCODONE 5 mg Immediate Release Tab PO PRN (08:38)
[2018-08-29] MEDS ORDERED: Darbepoetin Alfa 60 mcg/ml Inj SC ONE (09:04)
[2018-08-29] MEDS: Megestrol Acetate 40 mg/ml Cup PO SCH (10:25)
[2018-08-29] MEDS: Enoxaparin 30 mg Syringe SC SCH (10:25)
--- NOTE | 2018-08-29 20:44 | CP.PCM.PN ---
<Adams Holliday - Last Filed: 08/29/18 21:06> Subjective - Date & Time of Evaluation Date of Evaluation: 08/28/18 Time of Evaluation: 07:05 - Subjective Subjective: INTERNAL MEDICINE PROGRESS NOTE FOR DR. MIRA Holliday D.O. PGY-1 Pt seen and examined at bedside this am. He denies acute complaints this am. Nursing notes report pt had been refusing some medications. Pt was alert upon interview and did not appear confused. Pt to undergo cath drainage tomorrow. Denies fevers, chills, headaches, chest pain, palpitations, shortness of breath, nausea, vomiting, constipation, diarrhea, dysuria. Objective - Vital Signs/Intake and Output Vital Signs (last 24 hours): Temp Pulse Resp BP Pulse Ox 97.9 F 75 18 115/61 100 08/29/18 14:00 08/29/18 18:07 08/29/18 14:00 08/29/18 18:07 08/29/18 14:00 Intake and Output: 08/29/18 08/30/18 18:59 06:59 Intake Total 480 240 Output Total 400 100 Balance 80 140 - Medications Medications: Current Medications Enoxaparin Sodium (Lovenox) 30 mg SC DAILY [facility]; Protocol Last Admin: 08/29/18 10:25 Dose: 30 mg Famotidine (Pepcid) 20 mg PO DAILY [facility] Last Admin: 08/29/18 10:26 Dose: 20 mg Lactulose (Enulose) 20 gm PO BID [facility] Last Admin: 08/22/18 11:35 Dose: Not Given Lorazepam (Ativan) 0.5 mg IVP Q6H PRN; Protocol PRN Reason: Anxiety Last Admin: 08/26/18 15:09 Dose: 0.5 mg Megestrol Acetate (Megace) 400 mg PO DAILY [facility] Last Admin: 08/29/18 10:25 Dose: 400 mg Midodrine (Proamatine) 10 mg PO TID [facility] 234 [facility] Last Admin: 08/29/18 18:06 Dose: 10 mg Ondansetron HCl (Zofran Inj) 4 mg IVP Q6H PRN PRN Reason: Nausea/Vomiting Last Admin: 08/20/18 00:29 Dose: 4 mg Oxycodone HCl (Oxycodone Immediate Release Tab) 5 mg PO Q6H PRN PRN Reason: Pain, severe (8-10) Last Admin: 08/29/18 08:38 Dose: 5 mg Propranolol HCl (Inderal) 10 mg PO BID [facility] Last Admin: 08/29/18 18:07 Dose: 10 mg - Labs Labs: 08/29/18 07:00 08/29/18 07:00 PT 16.1 SECONDS (9.4-12.5) H 08/11/18 02:05 INR 1.40 08/11/18 02:05 - Constitutional Appears: Well, Non-toxic, No Acute Distress - Head Exam Head Exam: ATRAUMATIC, NORMAL INSPECTION - Eye Exam Eye Exam: EOMI, Normal appearance - ENT Exam ENT Exam: Mucous Membranes Moist, Normal Exam - Neck Exam Neck Exam: Normal Inspection - Respiratory Exam Respiratory Exam: Clear to Ausculation Bilateral, NORMAL BREATHING PATTERN - Cardiovascular Exam Cardiovascular Exam: REGULAR RHYTHM, +S1, +S2 - GI/Abdominal Exam GI & Abdominal Exam: Distended, Soft. absent: Tenderness Additional comments: aspira catheter in place in RLQ - Extremities Exam Extremities Exam: Normal Inspection. absent: Calf Tenderness - Back Exam Back Exam: NORMAL INSPECTION - Neurological Exam Neurological Exam: Alert, Awake, Oriented x3 - Psychiatric Exam Psychiatric exam: Normal Affect, Normal Mood - Skin Skin Exam: Dry, Intact, Warm Assessment and Plan - Assessment and Plan (Free Text) Assessment: Patient is 63-year-old male with past medical history significant for nonalcoholic liver cirrhosis, hepatic encephalopathy, chronic ascites, esophageal varices, chronic kidney disease, diastolic CHF, and paroxysmal atrial fibrillation that presented to the emergency room with shortness of breath. Plan: Ascites secondary to non alcoholic liver cirrhosis. Status post Pleurx catheter PleurX catheter placement POD#10- patient is to be drained 1.2 L every 4 days GI recommendations appreciated. Needs outpatient follow up with [facility] transplant clinic. History of hepatic encephalopathy Rifaximin 550 mg PO BID Lactulose 10 mg PO BID Midodrine 10 mg PO TID Zofran 4 mg IV Q6H PRN Oxycodone 5 mg PO Q6H PRN Surg consulted (Rupali) IR consulted (Zak) PT/OT- encourage OOB to chair KEYUR on CKD Stage III, improving- 2/2 poor PO intake Megace 400 mg PO daily Avoid nephrotoxic medications Nephro consulted (Mughni)- hold diuretics indefinitely Constipation, improving- 2/2 to opiate use Lactulose 10 mg PO BID HTN with h/o esophageal varices Propranolol 10 mg PO PID Anxiety Ativan 0.5 mg IV Q6H PRN GI/DVT prophylaxis: Pepcid/Lovenox Dispo: Pending placement. We will talk to case assembler/social work coordinator tomorrow for discharge planning Code status: DNR/DNI- palliative consulted <Kanid Dixon R - Last Filed: 08/31/18 13:16> Objective - Vital Signs/Intake and Output Vital Signs (last 24 hours): Temp Pulse Resp BP Pulse Ox 98.3 F 72 19 97/51 L 94 L 08/31/18 06:00 08/31/18 10:08/31/18 06:00 08/31/18 10:08/31/18 06:00 Intake and Output: 08/31/18 08/31/18 06:59 18:59 Intake Total 240 Output Total 50 Balance 190 - Medications Medications: Current Medications Famotidine (Pepcid) 20 mg PO DAILY [facility] Last Admin: 08/31/18 10:13 Dose: 20 mg Lactulose (Enulose) 20 gm PO BID [facility] 234 [facility] Last Admin: 08/31/18 10:11 Dose: 20 gm Lorazepam (Ativan) 0.5 mg IVP Q6H PRN; Protocol PRN Reason: Anxiety Last Admin: 08/26/18 15:09 Dose: 0.5 mg Megestrol Acetate (Megace) 400 mg PO DAILY [facility] 234 [facility] Last Admin: 08/31/18 10:10 Dose: 400 mg Midodrine (Proamatine) 10 mg PO TID [facility] 234 [facility] Last Admin: 08/31/18 10:13 Dose: 10 mg Ondansetron HCl (Zofran Inj) 4 mg IVP Q6H PRN PRN Reason: Nausea/Vomiting Last Admin: 08/20/18 00:29 Dose: 4 mg Oxycodone HCl (Oxycodone Immediate Release Tab) 5 mg PO Q6H PRN PRN Reason: Pain, severe (8-10) Last Admin: 08/31/18 10:13 Dose: 5 mg Potassium Phos/Sodium Phos (Neutra-Phos) 1 pkt PO DAILY [facility] Last Admin: 08/31/18 10:12 Dose: 1 pkt Propranolol HCl (Inderal) 10 mg PO BID [facility] 234 [facility] Last Admin: 08/31/18 10:17 Dose: Not Given Rifaximin (Xifaxan) 550 mg PO BID [facility]; Protocol Last Admin: 08/31/18 10:13 Dose: 550 mg - Labs Labs: 08/31/18 06:30 08/31/18 06:30 PT 16.1 SECONDS (9.4-12.5) H 08/11/18 02:05 INR 1.40 08/11/18 02:05 Attending/Attestation - Attestation I have personally seen and examined this patient.: Yes I have fully participated in the care of the patient.: Yes I have reviewed all pertinent clinical information, including history, physical exam and plan: Yes Notes (Text): Please note, this note is for 08/28/18. Patient seen and examined by me at 2:15PM with resident 08/28/18. Case including HPI, physical exam, and assessment and plan discussed with resident. Agree with above with following additions/corrections. Patient is 63-year-old male with past medical history significant for nonalcoholic liver cirrhosis, hepatic encephalopathy, chronic ascites, esophageal varices, chronic kidney disease, diastolic CHF, and paroxysmal atrial fibrillation that presented to the emergency room with shortness of breath. Patient states that he is feeling ok. Abdominal pain has improved. Patient states he is having bowel movements. Patient denies any shortness of breath. No nausea or vomiting. No headaches or dizziness. No chest pain or palpitations. No dysuria.Patient states he is eating but not eating much. He feels his appetite has improved. Physical exam: Gen: Awake and alert lying in bed in no acute distress HEENT: Normocephalic, atraumatic. Extraocular muscles intact, pupils equal reactive. No scleral icterus. Oropharynx is pink and moist. Neck is supple. Cardiovascular: Normal rhythm. Normal S1, S2. No murmurs, rubs, or gallops appreciated Pulmonary: Normal respiratory effort. No rhonchi, rales, or wheezing appreciated. Gastrointestinal: Soft, positive distention. Positive generalized tenderness. Positive bowel sounds all 4 quadrants, no guarding. Positive pleurx cath right lower abdominal area. Dressing clean, dry, and intact. Musculoskeletal: Moves all extremities. No calf tenderness. No edema appreciated. Central nervous system: AAO x 3. CN 2-12 grossly intact Dermatologic: Skin warm and dry Assessment and plan: Patient is 63-year-old male with past medical history significant for nonalcoholic liver cirrhosis, hepatic encephalopathy, chronic ascites, esophageal varices, chronic kidney disease, diastolic CHF, and paroxysmal atrial fibrillation that presented to the emergency room with shortness of breath. 1. Ascites secondary to non alcoholic liver cirrhosis. Continue with lactulose and xifaxin. Continue propranolol. S/P pleurx cath placement 08/16/18. Continue with drainage q4 days. 2. CKD. Nephrology following, recommendations appreciated. Creatinine stable. Continue to monitor 3. Small bowel obstruction. Resolved. Continue Lactulose 4. Abdominal pain. Secondary to ascites from liver cirrhosis. Cotinue with drainage from pluerx cath q4 days. Continue percocet 5mg PO q6hrs prn 5. Chronic Anemia. H&H stable. Patient asymptomatic. Continue to mointor CBC. 6. Thrombocytopenia. Likely secondary to liver cirrhosis. Stable. Continue to monitor. 7. History of hepatic encephalopathy. No encephalopathy currently. Continue lac tulose and Xifaxan. 8. Anxiety. Continue Xanax at bedtime. 9. Poor appetite. Continue megace. Continue Ensure. Encourage PO intake. 10. GI/DVT prophylaxis. Pepcid and SCDs. Case was discussed in detail with the patient regarding current diagnosis and treatment plan. All questions were answered.
--- NOTE | 2018-08-29 21:15 | CP.PCM.PN ---
<Adams Holliday - Last Filed: 08/29/18 21:19> Subjective - Date & Time of Evaluation Date of Evaluation: 08/29/18 Time of Evaluation: 10:00 - Subjective Subjective: INTERNAL MEDICINE PROGRESS NOTE FOR DR. MIRA Holliday D.O. PGY-1 Pt seen and examined at bedside this am. He had gotten ~2500cc fluid drained from pleurx catheter. He reports improvement in abdominal distention. He has been ambulating, tolerating diet well and ambulating. Nursing staff reports pt has been refusing some medications, including lactulose. He denies fevers, chills, headache, dizziness, chest pain, palpitations, shortness of breath, nausea, vomiting, constipation, diarrhea, dysuria. Objective - Vital Signs/Intake and Output Vital Signs (last 24 hours): Temp Pulse Resp BP Pulse Ox 97.9 F 75 18 115/61 100 08/29/18 14:00 08/29/18 18:07 08/29/18 14:00 08/29/18 18:07 08/29/18 14:00 Intake and Output: 08/29/18 08/30/18 18:59 06:59 Intake Total 480 240 Output Total 400 100 Balance 80 140 - Medications Medications: Current Medications Enoxaparin Sodium (Lovenox) 30 mg SC DAILY [facility]; Protocol Last Admin: 08/29/18 10:25 Dose: 30 mg Famotidine (Pepcid) 20 mg PO DAILY [facility] Last Admin: 08/29/18 10:26 Dose: 20 mg Lactulose (Enulose) 20 gm PO BID [facility] Last Admin: 08/22/18 11:35 Dose: Not Given Lorazepam (Ativan) 0.5 mg IVP Q6H PRN; Protocol PRN Reason: Anxiety Last Admin: 08/26/18 15:09 Dose: 0.5 mg Megestrol Acetate (Megace) 400 mg PO DAILY [facility] Last Admin: 08/29/18 10:25 Dose: 400 mg Midodrine (Proamatine) 10 mg PO TID [facility] Last Admin: 08/29/18 18:06 Dose: 10 mg Ondansetron HCl (Zofran Inj) 4 mg IVP Q6H PRN PRN Reason: Nausea/Vomiting Last Admin: 08/20/18 00:29 Dose: 4 mg Oxycodone HCl (Oxycodone Immediate Release Tab) 5 mg PO Q6H PRN PRN Reason: Pain, severe (8-10) Last Admin: 08/29/18 08:38 Dose: 5 mg Propranolol HCl (Inderal) 10 mg PO BID [facility] Last Admin: 08/29/18 18:07 Dose: 10 mg - Labs Labs: 08/29/18 07:00 08/29/18 07:00 PT 16.1 SECONDS (9.4-12.5) H 08/11/18 02:05 INR 1.40 08/11/18 02:05 - Constitutional Appears: Well, Non-toxic, No Acute Distress - Head Exam Head Exam: ATRAUMATIC, NORMAL INSPECTION - Eye Exam Eye Exam: EOMI, Normal appearance - ENT Exam ENT Exam: Mucous Membranes Moist, Normal Exam - Neck Exam Neck Exam: Normal Inspection - Respiratory Exam Respiratory Exam: Clear to Ausculation Bilateral, NORMAL BREATHING PATTERN - Cardiovascular Exam Cardiovascular Exam: REGULAR RHYTHM, +S1, +S2 - GI/Abdominal Exam GI & Abdominal Exam: Normal Bowel Sounds. absent: Distended Additional comments: Drainage catheter in place in RLQ - Extremities Exam Extremities Exam: Normal Inspection. absent: Calf Tenderness - Back Exam Back Exam: NORMAL INSPECTION - Neurological Exam Neurological Exam: Alert, Awake, Oriented x3 - Psychiatric Exam Psychiatric exam: Normal Affect, Normal Mood - Skin Skin Exam: Dry, Intact, Warm Assessment and Plan - Assessment and Plan (Free Text) Assessment: Patient is 63-year-old male with past medical history significant for nonalcoholic liver cirrhosis, hepatic encephalopathy, chronic ascites, esophageal varices, chronic kidney disease, diastolic CHF, and paroxysmal atrial fibrillation that presented to the emergency room with shortness of breath. Plan: Ascites secondary to non alcoholic liver cirrhosis. Status post Pleurx catheter Pt is s/p catheter drainage with about 2500cc yellowish ascitic fluid removed. PleurX catheter placement POD#1- patient is to be drained 1.2 L every 4 days GI recommendations appreciated. Needs outpatient follow up with [facility] transplant clinic. History of hepatic encephalopathy Pt refusing lactulose. Obtain ammonia levels Rifaximin 550 mg PO BID Lactulose 10 mg PO BID Midodrine 10 mg PO TID Zofran 4 mg IV Q6H PRN Oxycodone 5 mg PO Q6H PRN Surg consulted (Rupali) IR consulted (Zak) PT/OT- encourage OOB to chair KEYUR on CKD Stage III, improving- 2/2 poor PO intake Megace 400 mg PO daily Avoid nephrotoxic medications Nephro consulted (Alvino)- hold diuretics indefinitely Constipation, improving- 2/2 to opiate use Lactulose 10 mg PO BID HTN with h/o esophageal varices Propranolol 10 mg PO PID Anxiety Ativan 0.5 mg IV Q6H PRN GI/DVT prophylaxis: Pepcid/Lovenox Dispo: Pending placement. We will talk to lead case manager/social science analyst tomorrow for discharge planning Code status: DNR/DNI- palliative consulted <Kandi Dixon R - Last Filed: 08/31/18 15:17> Objective - Vital Signs/Intake and Output Vital Signs (last 24 hours): Temp Pulse Resp BP Pulse Ox 98.3 F 72 19 97/51 L 94 L 08/31/18 06:00 08/31/18 10:17 08/31/18 06:00 08/31/18 10:17 08/31/18 06:00 Intake and Output: 08/31/18 08/31/18 06:59 18:59 Intake Total 240 Output Total 50 Balance 190 - Medications Medications: Current Medications Famotidine (Pepcid) 20 mg PO DAILY [facility] Last Admin: 08/31/18 10:13 Dose: 20 mg Heparin Sodium (Porcine) (Heparin) 5,000 units SC Q12 [facility]; Protocol Lactulose (Enulose) 20 gm PO BID [facility] Last Admin: 08/31/18 10:11 Dose: 20 gm Lorazepam (Ativan) 0.5 mg IVP Q6H PRN; Protocol PRN Reason: Anxiety Last Admin: 08/26/18 15:09 Dose: 0.5 mg Megestrol Acetate (Megace) 400 mg PO DAILY [facility] Last Admin: 08/31/18 10:10 Dose: 400 mg Midodrine (Proamatine) 10 mg PO TID [facility] Last Admin: 08/31/18 14:56 Dose: 10 mg Ondansetron HCl (Zofran Inj) 4 mg IVP Q6H PRN PRN Reason: Nausea/Vomiting Last Admin: 08/20/18 00:29 Dose: 4 mg Oxycodone HCl (Oxycodone Immediate Release Tab) 5 mg PO Q6H PRN PRN Reason: Pain, severe (8-10) Last Admin: 08/31/18 10:13 Dose: 5 mg Potassium Phos/Sodium Phos (Neutra-Phos) 1 pkt PO DAILY [facility] Last Admin: 08/31/18 10:12 Dose: 1 pkt Propranolol HCl (Inderal) 10 mg PO BID [facility] Last Admin: 08/31/18 10:17 Dose: Not Given Rifaximin (Xifaxan) 550 mg PO BID [facility]; Protocol Last Admin: 08/31/18 10:13 Dose: 550 mg - Labs Labs: 08/31/18 06:30 08/31/18 06:30 PT 16.1 SECONDS (9.4-12.5) H 08/11/18 02:05 INR 1.40 08/11/18 02:05 Attending/Attestation - Attestation I have personally seen and examined this patient.: Yes I have fully participated in the care of the patient.: Yes I have reviewed all pertinent clinical information, including history, physical exam and plan: Yes Notes (Text): Patient seen and examined by me at 1:45PM with resident 08/29/18. Case including HPI, physical exam, and assessment and plan discussed with resident. Agree with above with following additions/corrections. Patient is 63-year-old male with past medical history significant for nonalcoholic liver cirrhosis, hepatic encephalopathy, chronic ascites, esophageal varices, chronic kidney disease, diastolic CHF, and paroxysmal atrial fibrillation that presented to the emergency room with shortness of breath. Patient states that he feels ok. States that he is not getting much sleep at night and feels tired. States that he had a bowel movement today. Abdominal pain is unchanged. No shortness of breath. No nausea or vomiting. No headaches or diz ziness. No chest pain or palpitations. No dysuria Physical exam: Gen: Awake and alert lying in bed in no acute distress HEENT: Normocephalic, atraumatic. Extraocular muscles intact, pupils equal paulo ctive. No scleral icterus. Oropharynx is pink and moist. Neck is supple. Cardiovascular: Normal rhythm. Normal S1, S2. No murmurs, rubs, or gallops appreciated Pulmonary: Normal respiratory effort. No rhonchi, rales, or wheezing appreciated. Gastrointestinal: Soft, positive distention. Positive generalized tenderness. Positive bowel sounds all 4 quadrants, no guarding. Positive pleurx cath right lower abdominal area. Dressing clean, dry, and intact. Musculoskeletal: Moves all extremities. No calf tenderness. No edema appreciated. Central nervous system: AAO x 3. CN 2-12 grossly intact Dermatologic: Skin warm and dry Assessment and plan: Patient is 63-year-old male with past medical history significant for nonalcoholic liver cirrhosis, hepatic encephalopathy, chronic ascites, esophageal varices, chronic kidney disease, diastolic CHF, and paroxysmal atrial fibrillation that presented to the emergency room with shortness of breath. 1. Ascites secondary to non alcoholic liver cirrhosis. S/P pleurx cath placement 08/16/18. Continue with lactulose and xifaxin. Continue propranolol. Continue with drainage every 4 days. 2. CKD. Nephrology following, recommendations appreciated. Creatinine stable. Continue to monitor 3. Small bowel obstruction. Resolved. Continue Lactulose 4. Abdominal pain. Secondary to ascites from liver cirrhosis. Cotinue with drainage from pleurx cath every four days. Continue percocet 5mg PO q6hrs prn 5. Chronic Anemia. H&H stable. Patient asymptomatic. Continue to mointor CBC. 6. Thrombocytopenia. Likely secondary to liver cirrhosis. Stable. Continue to monitor. 7. History of hepatic encephalopathy. No encephalopathy currently. Ammonia levels within normal limits. Continue lactulose and Xifaxan. 8. Anxiety. Continue Xanax at bedtime. 9. Poor appetite. Continue megace. Continue Ensure. Encourage PO intake. 10. GI/DVT prophylaxis. Pepcid and SCDs. Case was discussed in detail with the patient regarding current diagnosis and treatment plan. All questions were answered.
[2018-08-30 07:27] LABS: BASO # 0.02 K/mm3 (0.0-2.0); BASO % 0.3 % (0.0-3.0); EOS # 0.1 (0.0-0.7); EOS % 1.7 % (1.5-5.0); GRAN # 4.14 (1.4-6.5); GRAN % 65.1 % (50.0-68.0); HEMOGLOBIN 9.9 g/dL (14.0-18.0); LYMPH % 15.9 % (22.0-35.0); MEAN CELL VOLUME 100.7 fl (80.0-105.0); MEAN CORPUSCULAR HEMOGLOBIN 33.4 pg (25.0-35.0); MEAN CORPUSCULAR HGB CONC 33.2 g/dl (31.0-37.0); MEAN PLATELET VOLUME 10.1 fl (7.0-11.0); MONO # 1.1 (0.1-0.6); RBC 2.96 10^6/uL (3.5-6.1); RED CELL DISTRIBUTION WIDTH 20.4 % (11.5-14.5); WHITE BLOOD COUNT 6.4 10^3/ul (4.5-11.0)
[2018-08-30 07:34] LABS: ALB/GLOB RATIO 0.6 (1.1-1.8); ALBUMIN 2.6 g/dL (3.0-4.8); CALCIUM 9.1 mg/dL (8.4-10.5)
[2018-08-30] MEDS: oxyCODONE 5 mg Immediate Release Tab PO PRN ×2 (10:35→17:46)
[2018-08-30] MEDS: Megestrol Acetate 40 mg/ml Cup PO SCH (10:35)
[2018-08-30] MEDS: Enoxaparin 30 mg Syringe SC SCH (10:41)
[2018-08-30] MEDS: Potassium & Sodium Phosphate PO SCH (11:17)
--- NOTE | 2018-08-30 20:55 | CP.PCM.PN ---
<Adams Holliday - Last Filed: 08/30/18 20:56> Subjective - Date & Time of Evaluation Date of Evaluation: 08/30/18 Time of Evaluation: 11:30 - Subjective Subjective: INTERNAL MEDICINE PROGRESS NOTE FOR DR. MIRA KellyO. PGY-1 Pt seen and examined at bedside this am. No acute complaints. He has been tolerating diet well, and having bowel movements. Denies fevers, chills, headache, dizziness, chest pain, palpitations, shortness of breath, nausea, vomiting, constipation, diarrhea, dysuria. Objective - Vital Signs/Intake and Output Vital Signs (last 24 hours): Temp Pulse Resp BP Pulse Ox 98.9 F 73 20 108/62 93 L 08/30/18 14:00 08/30/18 17:46 08/30/18 14:00 08/30/18 17:46 08/30/18 14:00 Intake and Output: 08/30/18 08/31/18 18:59 06:59 Intake Total 240 Output Total 50 Balance 190 - Medications Medications: Current Medications Enoxaparin Sodium (Lovenox) 30 mg SC DAILY [facility]; Protocol Last Admin: 08/30/18 10:41 Dose: 30 mg Famotidine (Pepcid) 20 mg PO DAILY [facility] Last Admin: 08/30/18 10:35 Dose: 20 mg Lactulose (Enulose) 20 gm PO BID [facility] Last Admin: 08/30/18 17:45 Dose: 20 gm Lorazepam (Ativan) 0.5 mg IVP Q6H PRN; Protocol PRN Reason: Anxiety Last Admin: 08/26/18 15:09 Dose: 0.5 mg Megestrol Acetate (Megace) 400 mg PO DAILY [facility] Last Admin: 08/30/18 10:35 Dose: 400 mg Midodrine (Proamatine) 10 mg PO TID [facility] Last Admin: 08/30/18 17:46 Dose: 10 mg Ondansetron HCl (Zofran Inj) 4 mg IVP Q6H PRN PRN Reason: Nausea/Vomiting Last Admin: 08/20/18 00:29 Dose: 4 mg Oxycodone HCl (Oxycodone Immediate Release Tab) 5 mg PO Q6H PRN PRN Reason: Pain, severe (8-10) Last Admin: 08/30/18 17:46 Dose: 5 mg Potassium Phos/Sodium Phos (Neutra-Phos) 1 pkt PO DAILY [facility] Last Admin: 08/30/18 11:17 Dose: 1 pkt Propranolol HCl (Inderal) 10 mg PO BID [facility] Last Admin: 08/30/18 17:46 Dose: 10 mg Rifaximin (Xifaxan) 550 mg PO BID [facility]; Protocol Last Admin: 08/30/18 17:45 Dose: 550 mg - Labs Labs: 08/30/18 06:40 08/30/18 06:40 PT 16.1 SECONDS (9.4-12.5) H 08/11/18 02:05 INR 1.40 08/11/18 02:05 - Constitutional Appears: Well, Non-toxic, No Acute Distress - Head Exam Head Exam: NORMAL INSPECTION, NORMOCEPHALIC - Eye Exam Eye Exam: EOMI, Normal appearance - ENT Exam ENT Exam: Mucous Membranes Moist, Normal Exam - Neck Exam Neck Exam: Normal Inspection - Respiratory Exam Respiratory Exam: Clear to Ausculation Bilateral, NORMAL BREATHING PATTERN - Cardiovascular Exam Cardiovascular Exam: REGULAR RHYTHM, +S1, +S2. absent: Murmur - GI/Abdominal Exam GI & Abdominal Exam: Soft, Normal Bowel Sounds. absent: Tenderness Additional comments: Pleurx catheter in place. C/D/I - Extremities Exam Extremities Exam: Normal Inspection. absent: Calf Tenderness - Back Exam Back Exam: NORMAL INSPECTION. absent: CVA tenderness (L), CVA tenderness (R) - Neurological Exam Neurological Exam: Alert, Awake, CN II-XII Intact - Psychiatric Exam Psychiatric exam: Normal Affect, Normal Mood - Skin Skin Exam: Dry, Intact, Warm Assessment and Plan - Assessment and Plan (Free Text) Assessment: Patient is 63-year-old male with past medical history significant for n onalcoholic liver cirrhosis, hepatic encephalopathy, chronic ascites, esophageal varices, chronic kidney disease, diastolic CHF, and paroxysmal atrial fibrillation admitted for SOB. Plan: Ascites secondary to non alcoholic liver cirrhosis. Status post Pleurx catheter S/p Pleurx catheter placement. Patient is to be drained every 4 days GI recommendations appreciated. Needs outpatient follow up with [facility] transplant clinic. History of hepatic encephalopathy Continue Rifaximin 550 mg PO BID Continue Lactulose 10 mg PO BID Continue Zofran 4 mg IV Q6H PRN Continue Oxycodone 5 mg PO Q6H PRN Surg consulted (Rupali) IR consulted (Zak) PT/OT- encourage OOB to chair KEYUR on CKD Stage III, improving- 2/2 poor PO intake Continue Midodrine 10 mg PO TID Continue Megace 400 mg PO daily Avoid nephrotoxic medications Nephro consulted (Alvino)- hold diuretics indefinitely Constipation, improving- 2/2 to opiate use Lactulose 10 mg PO BID HTN with h/o esophageal varices Propranolol 10 mg PO PID Anxiety Ativan 0.5 mg IV Q6H PRN GI/DVT prophylaxis: Pepcid/Lovenox Dispo: Pending placement. We will talk to hospice case manager/social insurance administrator tomorrow for discharge planning Code status: DNR/DNI- palliative consulted Case seen, examined and discussed with attending physician, Dr. Dixon <Kandi Dixon R - Last Filed: 08/31/18 15:23> Objective - Vital Signs/Intake and Output Vital Signs (last 24 hours): Temp Pulse Resp BP Pulse Ox 98.3 F 72 19 97/51 L 94 L 08/31/18 06:00 08/31/18 10:17 08/31/18 06:00 08/31/18 10:17 08/31/18 06:00 Intake and Output: 08/31/18 08/31/18 06:59 18:59 Intake Total 240 Output Total 50 Balance 190 - Medications Medications: Current Medications Famotidine (Pepcid) 20 mg PO DAILY [facility] Last Admin: 08/31/18 10:13 Dose: 20 mg Heparin Sodium (Porcine) (Heparin) 5,000 units SC Q12 [facility]; Protocol Lactulose (Enulose) 20 gm PO BID [facility] Last Admin: 08/31/18 10:11 Dose: 20 gm Lorazepam (Ativan) 0.5 mg IVP Q6H PRN; Protocol PRN Reason: Anxiety Last Admin: 08/26/18 15:09 Dose: 0.5 mg Megestrol Acetate (Megace) 400 mg PO DAILY [facility] Last Admin: 08/31/18 10:10 Dose: 400 mg Midodrine (Proamatine) 10 mg PO TID [facility] Last Admin: 08/31/18 14:56 Dose: 10 mg Ondansetron HCl (Zofran Inj) 4 mg IVP Q6H PRN PRN Reason: Nausea/Vomiting Last Admin: 08/20/18 00:29 Dose: 4 mg Oxycodone HCl (Oxycodone Immediate Release Tab) 5 mg PO Q6H PRN PRN Reason: Pain, severe (8-10) Last Admin: 08/31/18 10:13 Dose: 5 mg Potassium Phos/Sodium Phos (Neutra-Phos) 1 pkt PO DAILY [facility] Last Admin: 08/31/18 10:12 Dose: 1 pkt Propranolol HCl (Inderal) 10 mg PO BID [facility] Last Admin: 08/31/18 10:17 Dose: Not Given Rifaximin (Xifaxan) 550 mg PO BID [facility]; Protocol Last Admin: 08/31/18 10:13 Dose: 550 mg - Labs Labs: 08/31/18 06:30 08/31/18 06:30 PT 16.1 SECONDS (9.4-12.5) H 08/11/18 02:05 INR 1.40 08/11/18 02:05 Attending/Attestation - Attestation I have personally seen and examined this patient.: Yes I have fully participated in the care of the patient.: Yes I have reviewed all pertinent clinical information, including history, physical exam and plan: Yes Notes (Text): Patient seen and examined by me at 11:50 AM with resident 08/30/18. Case including HPI, physical exam, and assessment and plan discussed with resident. Agree with above with following additions/corrections. Patient is 63-year-old male with past medical history significant for nonalcoholic liver cirrhosis, hepatic encephalopathy, chronic ascites, esophageal varices, chronic kidney disease, diastolic CHF, and paroxysmal atrial fibrillation that presented to the emergency room with shortness of breath. Patient states that he feels pretty good. Patient wants to go home. States he sat up in a chair twice yesterday. No bowel movement yet today. Abdominal pain unchanged. No nausea or vomiting. No shortness of breath. No chest pain or palpitations. No headaches or dizziness. No dysuria Physical exam: Gen: Awake and alert lying in bed in no acute distress HEENT: Normocephalic, atraumatic. Extraocular muscles intact, pupils equal reactive. No scleral icterus. Oropharynx is pink and moist. Neck is supple. Cardiovascular: Normal rhythm. Normal S1, S2. No murmurs, rubs, or gallops appreciated Pulmonary: Normal respiratory effort. No rhonchi, rales, or wheezing appreciated. Gastrointestinal: Soft, positive distention. Positive generalized tenderness. Positive bowel sounds all 4 quadrants, no guarding. Positive pleurx cath right lower abdominal area. Dressing clean, dry, and intact. Musculoskeletal: Moves all extremities. No calf tenderness. No edema appreciated. Central nervous system: AAO x 3. CN 2-12 grossly intact Dermatologic: Skin warm and dry, Stage 2 decubitus ulcer noted. Assessment and plan: Patient is 63-year-old male with past medical history significant for nonalcoholic liver cirrhosis, hepatic encephalopathy, chronic ascites, esophageal varices, chronic kidney disease, diastolic CHF, and paroxysmal atrial fibrillation that presented to the emergency room with shortness of breath. 1. Ascites secondary to non alcoholic liver cirrhosis. S/P pleurx cath placement 08/16/18. S/P 2.5L removed 08/28/18. Continue with lactulose and xifaxin. Continue propranolol. Continue with drainage every 4 days. 2. CKD. Nephrology following, recommendations appreciated. Creatinine stable. Continue to monitor 3. Small bowel obstruction. Resolved. Continue Lactulose 4. Abdominal pain. Secondary to ascites from liver cirrhosis. S/P 2.5L removed 08/28/18. Continue with drainage from pleurx cath every four days. Continue percocet 5mg PO q6hrs prn 5. Chronic Anemia. H&H stable. Patient asymptomatic. Continue to mointor CBC. 6. Thrombocytopenia. Likely secondary to liver cirrhosis. Stable. Continue to monitor. 7. History of hepatic encephalopathy. No encephalopathy currently. Ammonia levels within normal limits. Continue lactulose and Xifaxan. 8. Anxiety. Continue Xanax at bedtime. 9. Poor appetite. Continue megace. Continue Ensure. Encourage PO intake. 10. Stage 2 decubitus ulcer. Continue local wound care. Turn patient q2 hours. 11. GI/DVT prophylaxis. Pepcid and SCDs. Case was discussed in detail with the patient regarding current diagnosis and treatment plan.
--- NOTE | 2018-08-31 05:01 | CP.PCM.PN ---
Subjective - Date & Time of Evaluation Date of Evaluation: 08/31/18 - Subjective Subjective: INTERNAL MEDICINE PROGRESS NOTE FOR DR. MIRA Holliday D.O. PGY-1 Pt seen and examined at bedside this. No acute complaints overnight. Pt reports he has been having bowel movements, with the last bowel movement this morning. He reports he was able to sleep. Due to next drainage every 4 days. Last drainage on 08/29/18. Pt denies fevers, chills, headache, dizziness, chest pain, palpitations, shortness of breath, nausea, vomiting, constipation, diarrhea, dysuria. Objective - Vital Signs/Intake and Output Vital Signs (last 24 hours): Temp Pulse Resp BP Pulse Ox 98.3 F 66 18 116/52 L 94 L 08/30/18 22:00 08/30/18 22:00 08/30/18 22:00 08/30/18 22:00 08/30/18 22:00 Intake and Output: 08/30/18 08/31/18 18:59 06:59 Intake Total 240 Output Total 50 Balance 190 - Medications Medications: Current Medications Enoxaparin Sodium (Lovenox) 30 mg SC DAILY [facility]; Protocol Last Admin: 08/30/18 10:41 Dose: 30 mg Famotidine (Pepcid) 20 mg PO DAILY [facility] Last Admin: 08/30/18 10:35 Dose: 20 mg Lactulose (Enulose) 20 gm PO BID [facility] Last Admin: 08/30/18 17:45 Dose: 20 gm Lorazepam (Ativan) 0.5 mg IVP Q6H PRN; Protocol PRN Reason: Anxiety Last Admin: 08/26/18 15:09 Dose: 0.5 mg Megestrol Acetate (Megace) 400 mg PO DAILY [facility] Last Admin: 08/30/18 10:35 Dose: 400 mg Midodrine (Proamatine) 10 mg PO TID [facility] Last Admin: 08/30/18 17:46 Dose: 10 mg Ondansetron HCl (Zofran Inj) 4 mg IVP Q6H PRN PRN Reason: Nausea/Vomiting Last Admin: 08/20/18 00:29 Dose: 4 mg Oxycodone HCl (Oxycodone Immediate Release Tab) 5 mg PO Q6H PRN PRN Reason: Pain, severe (8-10) Last Admin: 08/30/18 17:46 Dose: 5 mg Potassium Phos/Sodium Phos (Neutra-Phos) 1 pkt PO DAILY [facility] Last Admin: 08/30/18 11:17 Dose: 1 pkt Propranolol HCl (Inderal) 10 mg PO BID [facility] Last Admin: 08/30/18 17:46 Dose: 10 mg Rifaximin (Xifaxan) 550 mg PO BID [facility]; Protocol Last Admin: 08/30/18 17:45 Dose: 550 mg - Labs Labs: 08/30/18 06:40 08/30/18 06:40 PT 16.1 SECONDS (9.4-12.5) H 08/11/18 02:05 INR 1.40 08/11/18 02:05 - Constitutional Appears: Well, Non-toxic, No Acute Distress - Head Exam Head Exam: ATRAUMATIC, NORMAL INSPECTION - Eye Exam Eye Exam: EOMI, Normal appearance - ENT Exam ENT Exam: Mucous Membranes Moist - Neck Exam Neck Exam: Normal Inspection - Respiratory Exam Respiratory Exam: Clear to Ausculation Bilateral, NORMAL BREATHING PATTERN - Cardiovascular Exam Cardiovascular Exam: REGULAR RHYTHM, +S1, +S2 - GI/Abdominal Exam GI & Abdominal Exam: Guarding, Soft, Normal Bowel Sounds Additional comments: Dressing in place over pleurx catheter. Clean/dry/intact - Extremities Exam Extremities Exam: Normal Inspection. absent: Calf Tenderness, Pedal Edema - Back Exam Back Exam: NORMAL INSPECTION. absent: CVA tenderness (L), CVA tenderness (R) - Neurological Exam Neurological Exam: Alert, Awake, Oriented x3 - Psychiatric Exam Psychiatric exam: Normal Affect, Normal Mood - Skin Skin Exam: Dry, Intact, Warm Assessment and Plan - Assessment and Plan (Free Text) Assessment: Patient is 63-year-old male with past medical history significant for nonalcoholic liver cirrhosis, hepatic encephalopathy, chronic ascites, esophageal varices, chronic kidney disease, diastolic CHF, and paroxysmal atrial fibrillation admitted for SOB. Pt currently waiting on placement to rehab facility Plan: Ascites secondary to non alcoholic liver cirrhosis. Status post Pleurx catheter S/p Pleurx catheter placement. Patient is to be drained every 4 days GI recommendations appreciated. Needs outpatient follow up with [facility] transplant clinic. History of hepatic encephalopathy Continue Rifaximin 550 mg PO BID Continue Lactulose 10 mg PO BID Continue Zofran 4 mg IV Q6H PRN Continue Oxycodone 5 mg PO Q6H PRN Surg consulted (Rupali) IR consulted (Zak) PT/OT- encourage OOB to chair KEYUR on CKD Stage III, improving- 2/2 poor PO intake Continue Midodrine 10 mg PO TID Continue Megace 400 mg PO daily Avoid nephrotoxic medications Nephro consulted (Alvino)- hold diuretics indefinitely Constipation, improving- 2/2 to opiate use Lactulose 10 mg PO BID HTN with h/o esophageal varices Propranolol 10 mg PO PID Anxiety Ativan 0.5 mg IV Q6H PRN GI/DVT prophylaxis: Pepcid/Heparin Dispo: Pending placement. We will talk to case coordinator/licensed social worker tomorrow for discharge planning Code status: DNR/DNI- palliative consulted Case seen, examined and discussed with attending physician, Dr. Dixon
[2018-08-31 07:10] LABS: BASO # 0.03 K/mm3 (0.0-2.0); BASO % 0.4 % (0.0-3.0); EOS # 0.1 (0.0-0.7); EOS % 1.7 % (1.5-5.0); GRAN # 4.64 (1.4-6.5); GRAN % 66.8 % (50.0-68.0); HEMOGLOBIN 9.6 g/dL (14.0-18.0); LYMPH # 1.4 (1.2-3.4); MEAN CELL VOLUME 100.4 fl (80.0-105.0); MEAN CORPUSCULAR HEMOGLOBIN 33.9 pg (25.0-35.0); MEAN CORPUSCULAR HGB CONC 33.8 g/dl (31.0-37.0); MEAN PLATELET VOLUME 9.4 fl (7.0-11.0); MONO # 0.8 (0.1-0.6); MONO % 11.1 % (1.0-6.0); RBC 2.83 10^6/uL (3.5-6.1); RED CELL DISTRIBUTION WIDTH 21.1 % (11.5-14.5)
[2018-08-31 07:24] LABS: ALB/GLOB RATIO 0.6 (1.1-1.8); ALBUMIN 2.6 g/dL (3.0-4.8)
[2018-08-31] MEDS: Megestrol Acetate 40 mg/ml Cup PO SCH (10:10)
[2018-08-31] MEDS: Potassium & Sodium Phosphate PO SCH (10:12)
[2018-08-31] MEDS: oxyCODONE 5 mg Immediate Release Tab PO PRN ×2 (10:13→18:10)
--- NOTE | 2018-08-31 12:45 | CP.PCM.PN ---
Subjective - Date & Time of Evaluation Date of Evaluation: 08/31/18 Time of Evaluation: 12:45 - Subjective Subjective: Jenni Maki DO, PGY-2: Nephrology Progress Note for Dr. De Oliveira Patient was seen and examined at bedside. He is going for fluids removal today from Pleurax catheter. Labs notable for hyperkalemia in the setting of starting heparin and patient refusing lactulose. Patient reports having good appetite, no fever, chills, nausea, or vomiting. Objective - Vital Signs/Intake and Output Vital Signs (last 24 hours): Temp Pulse Resp BP Pulse Ox 98.3 F 72 19 97/51 L 94 L 08/31/18 06:00 08/31/18 10:08/31/18 06:00 08/31/18 10:08/31/18 06:00 Intake and Output: 08/31/18 08/31/18 06:59 18:59 Intake Total 240 Output Total 50 Balance 190 - Medications Medications: Current Medications Famotidine (Pepcid) 20 mg PO DAILY [facility] Last Admin: 08/31/18 10:13 Dose: 20 mg Lactulose (Enulose) 20 gm PO BID [facility] Last Admin: 08/31/18 10:11 Dose: 20 gm Lorazepam (Ativan) 0.5 mg IVP Q6H PRN; Protocol PRN Reason: Anxiety Last Admin: 08/26/18 15:09 Dose: 0.5 mg Megestrol Acetate (Megace) 400 mg PO DAILY [facility] Last Admin: 08/31/18 10:10 Dose: 400 mg Midodrine (Proamatine) 10 mg PO TID [facility] Last Admin: 08/31/18 10:13 Dose: 10 mg Ondansetron HCl (Zofran Inj) 4 mg IVP Q6H PRN PRN Reason: Nausea/Vomiting Last Admin: 08/20/18 00:29 Dose: 4 mg Oxycodone HCl (Oxycodone Immediate Release Tab) 5 mg PO Q6H PRN PRN Reason: Pain, severe (8-10) Last Admin: 08/31/18 10:13 Dose: 5 mg Potassium Phos/Sodium Phos (Neutra-Phos) 1 pkt PO DAILY [facility] Last Admin: 08/31/18 10:12 Dose: 1 pkt Propranolol HCl (Inderal) 10 mg PO BID [facility] Last Admin: 08/31/18 10:17 Dose: Not Given Rifaximin (Xifaxan) 550 mg PO BID [facility]; Protocol Last Admin: 08/31/18 10:13 Dose: 550 mg - Labs Labs: 08/31/18 06:30 08/31/18 06:30 PT 16.1 SECONDS (9.4-12.5) H 08/11/18 02:05 INR 1.40 08/11/18 02:05 Assessment and Plan (1) KEYUR (acute kidney injury) Status: Acute (2) Ascites Status: Acute (3) CKD (chronic kidney disease) Status: Chronic - Assessment and Plan (Free Text) Assessment: Recommend discontinuing heparin. Continue SCD or consider renally dosed Lovenox. Cannot rule out type II HRS. Case was reviewed and discussed with attending physician, Dr. De Oliveira
[2018-08-31 15:37] VITALS: RESP 20; TEMP 97.5; O2SAT 98
--- NOTE | 2018-08-31 17:38 | CP.PCM.DIS ---
Provider - Provider Date of Admission: 08/11/18 02:32 Attending physician: Felicita Rosales MD Primary care physician: Surinder Bishop MD Consults: Nephrology: Dr. De Oliveira Surgery: Dr. Zapien Time Spent in preparation of Discharge (in minutes): 45 Hospital Course - Lab Results Lab Results: Micro Results 08/11/18 02:05 Blood-Venous Blood Culture - Final NO GROWTH AFTER 5 DAYS 08/11/18 02:05 Blood-Venous Gram Stain - Final TEST NOT PERFORMED 08/11/18 01:45 Blood-Venous Blood Culture - Final NO GROWTH AFTER 5 DAYS 08/11/18 01:45 Blood-Venous Gram Stain - Final TEST NOT PERFORMED Most Recent Lab Values WBC 7.0 10^3/ul (4.5-11.0) 08/31/18 06:30 RBC 2.83 10^6/uL (3.5-6.1) L 08/31/18 06:30 Hgb 9.6 g/dL (14.0-18.0) L 08/31/18 06:30 Hct 28.4 % (42.0-52.0) L 08/31/18 06:30 MCV 100.4 fl (80.0-105.0) 08/31/18 06:30 MCH 33.9 pg (25.0-35.0) 08/31/18 06:30 MCHC 33.8 g/dl (31.0-37.0) 08/31/18 06:30 RDW 21.1 % (11.5-14.5) H 08/31/18 06:30 Plt Count 82 10^3/uL (120.0-450.0) L 08/31/18 06:30 MPV 9.4 fl (7.0-11.0) 08/31/18 06:30 Gran % 66.8 % (50.0-68.0) 08/31/18 06:30 Lymph % (Auto) 20.0 % (22.0-35.0) L 08/31/18 06:30 Robertson % (Auto) 11.1 % (1.0-6.0) H 08/31/18 06:30 Eos % (Auto) 1.7 % (1.5-5.0) 08/31/18 06:30 Baso % (Auto) 0.4 % (0.0-3.0) 08/31/18 06:30 Gran # 4.64 (1.4-6.5) 08/31/18 06:30 Lymph # (Auto) 1.4 (1.2-3.4) 08/31/18 06:30 Robertson # (Auto) 0.8 (0.1-0.6) H 08/31/18 06:30 Eos # (Auto) 0.1 (0.0-0.7) 08/31/18 06:30 Baso # (Auto) 0.03 K/mm3 (0.0-2.0) 08/31/18 06:30 Neutrophils % (Manual) 72 % (50.0-70.0) H 08/26/18 05:00 Band Neutrophils % 3 % (0-2) H 08/11/18 02:05 Lymphocytes % (Manual) 12 % (22.0-35.0) L 08/26/18 05:00 Monocytes % (Manual) 14 % (1.0-6.0) H 08/26/18 05:00 Eosinophils % (Manual) 2 % (0.0-3.0) 08/26/18 05:00 Platelet Evaluation Sl. dec (NORMAL) 08/26/18 05:00 Polychromasia Slight 08/26/18 05:00 Hypochromasia 1+ 08/26/18 05:00 Anisocytosis (manual) 1+ 08/26/18 05:00 Macrocytosis (manual) 1+ 08/26/18 05:00 PT 16.1 SECONDS (9.4-12.5) H 08/11/18 02:05 INR 1.40 08/11/18 02:05 pCO2 43 mm/Hg (35-45) 08/11/18 03:20 pO2 113.0 mm/Hg (80-100) H 08/11/18 03:20 HCO3 29.9 mmol/L (21-28) H 08/11/18 03:20 ABG pH 7.45 (7.35-7.45) 08/11/18 03:20 ABG Total CO2 31.2 mmol.L (22-28) H 08/11/18 03:20 ABG O2 Saturation 100.1 % (95-98) H 08/11/18 03:20 ABG O2 Content 13.9 ML/dl (15-23) L 08/11/18 03:20 ABG Base Excess 5.3 mmol/L (-2.0-3.0) H 08/11/18 03:20 ABG Hemoglobin 10.2 g/dL (11.7-17.4) L 08/11/18 03:20 ABG Carboxyhemoglobin 3.2 % (0.5-1.5) H 08/11/18 03:20 POC ABG HHb (Measured) -0.1 % (0-5) L 08/11/18 03:20 ABG Methemoglobin 1.5 % (0.0-3.0) 08/11/18 03:20 ABG O2 Capacity 13.9 mL/dl (16-24) L 08/11/18 03:20 VBG pH 7.36 (7.32-7.43) 08/11/18 02:05 VBG pCO2 57.0 (40-60) 08/11/18 02:05 VBG HCO3 32.2 mmol/l (21-28) H 08/11/18 02:05 VBG Total CO2 33.9 mmol.L (22-28) H 08/11/18 02:05 VBG O2 Sat (Calc) 46.5 % (40-65) 08/11/18 02:05 VBG Base Excess 5.1 mmol/L (0.0-2.0) H 08/11/18 02:05 VBG Potassium 3.5 mmol/L (3.6-5.2) L 08/11/18 02:05 Hgb O2 Saturation 95.3 % (95.0-98.0) 08/11/18 03:20 Sodium 136.0 mmol/L (132-148) 08/11/18 02:05 Chloride 100.0 mmol/L (98-107) 08/11/18 02:05 Glucose 91 mg/dl (75-110) 08/11/18 02:05 Lactate 1.5 mmol/L (0.7-2.1) 08/11/18 02:05 FiO2 32.0 % 08/11/18 03:20 Sodium 137 mmol/L (132-148) 08/31/18 06:30 Potassium 5.3 mmol/L (3.6-5.0) H 08/31/18 06:30 Chloride 106 mmol/L (98-107) 08/31/18 06:30 Carbon Dioxide 24 mmol/L (21-33) 08/31/18 06:30 Anion Gap 13 (10-20) 08/31/18 06:30 BUN 39 mg/dL (7-21) H 08/31/18 06:30 Creatinine 2.0 mg/dl (0.8-1.5) H 08/31/18 06:30 Est GFR ( Amer) 41 08/31/18 06:30 Est GFR (Non-Af Amer) 34 08/31/18 06:30 POC Glucose (mg/dL) 115 mg/dL (65-110) H 08/17/18 21:18 Random Glucose 88 mg/dL (70-110) 08/31/18 06:30 Calcium 9.0 mg/dL (8.4-10.5) 08/31/18 06:30 Phosphorus 2.9 mg/dL (2.5-4.5) 08/31/18 06:30 Magnesium 2.2 mg/dL (1.7-2.2) 08/31/18 06:30 Iron 48 ug/dL (45-180) 08/13/18 06:15 TIBC 210 ug/dL (261-462) L 08/13/18 06:15 % Saturation 23 % (20-55) 08/13/18 06:15 Ferritin 60.6 ng/mL 08/13/18 06:15 Total Bilirubin 3.2 mg/dL (0.2-1.3) H 08/31/18 06:30 Direct Bilirubin 1.3 mg/dL (0.0-0.4) H 08/11/18 02:05 AST 76 U/L (17-59) H 08/31/18 06:30 ALT 43 U/L (7-56) 08/31/18 06:30 Alkaline Phosphatase 322 U/L (38-126) H 08/31/18 06:30 Ammonia 11 umol/L (9-33) 08/30/18 06:40 Lactate Dehydrogenase 449 U/L (333-699) 08/11/18 02:05 Total Creatine Kinase 90 U/L (35-230) 08/11/18 02:05 Troponin I 0.02 ng/mL D 08/11/18 02:05 NT-Pro-B Natriuret Pep 1710 pg/mL (0-450) H 08/11/18 02:05 Total Protein 7.2 g/dL (5.8-8.3) 08/31/18 06:30 Albumin 2.6 g/dL (3.0-4.8) L 08/31/18 06:30 Globulin 4.6 gm/dL 08/31/18 06:30 Albumin/Globulin Ratio 0.6 (1.1-1.8) L 08/31/18 06:30 Lipase 67 U/L (23-300) 08/11/18 02:05 25-OH Vitamin D Total 52.8 NG/ML (30.0-100.0) 08/16/18 08:00 PTH Intact Whole Molec 16 pg/mL (14-64) 08/16/18 08:00 Calcium (PTH Intact) 8.6 mg/dL (8.6-10.3) 08/13/18 06:15 PTH w/Ion &Tot Calcium 21 pg/mL (14-64) 08/13/18 06:15 Venous Blood Potassium 3.5 mmol/L (3.6-5.2) L 08/11/18 02:05 Urine Color Yellow (YELLOW) 08/12/18 13:00 Urine Appearance Clear (CLEAR) 08/12/18 13:00 Urine pH 5.5 (4.7-8.0) 08/12/18 13:00 Ur Specific [place] 1.020 (1.005-1.035) 08/12/18 13:00 Urine Protein Trace mg/dL (<30 mg/dL) H 08/12/18 13:00 Urine Glucose (UA) Negative mg/dL (NEGATIVE) 08/12/18 13:00 Urine Ketones Negative mg/dL (NEGATIVE) 08/12/18 13:00 Urine Blood Negative (NEGATIVE) 08/12/18 13:00 Urine Nitrate Negative (NEGATIVE) 08/12/18 13:00 Urine Bilirubin Negative (NEGATIVE) 08/12/18 13:00 Urine Urobilinogen 0.2 E.U./dL (<1 E.U./dL) 08/12/18 13:00 Ur Leukocyte Esterase Negative Tomy/uL (NEGATIVE) 08/12/18 13:00 Urine RBC 0 - 2 /hpf (0-2) 08/12/18 13:00 Urine WBC 0 - 2 /hpf (0-6) 08/12/18 13:00 Ur Epithelial Cells 0 - 2 /hpf (0-5) 08/12/18 13:00 Ur Random Creatinine 115 mg/dL 08/26/18 12:30 Ur Random Sodium < 5 meq/L 08/26/18 12:30 - Hospital Course Hospital Course: A 63 year old male, whose past medical history includes non-alcoholic liver cirrhosis of unclear etiology, hepatic encephalopathy, chronic ascites, esophageal varices, CKD stage 3B, HTN, diastolic CHF, Atrial Fibrillation, presented to the emergency department on 08/11/18 for further evaluation of shortness of breath. Patient notes that he was discharged a few weeks ago from [facility] and notes that they drained 8 liters of fluid from his abdomen. He notes that he is unable to take Lasix. The patient denies fevers, chills, headache, dizziness, chest pain, cough, nausea, vomiting, diarrhea, back pain, neck pain, urinary/bowel changes, or any other complaint. Hospital Course: CXR upon admission showed moderate right sided pleural effusion and increased vascular congestion. ABG was normal. Patient was started on duonebs q6H and O2 nasal cannula PRN. Rocephin IV and Azithromycin IV for leukocytosis secondary to potential SBP and possible pneumonia. IR was consulted for therapeutic and diagnostic thoracentesis/paracentesis with fluid analysis. Creatinine was elevated on admission possible d/t KEYUR. Creatinine fluctuation was noted during hospital stay due to hemodynamic changes. Patient has history of CKD stage 3. Fluids held at initially due to ascites. Nephrology was consulted for evaluatio n. Potassium was 3.5 on admission and Kdur 40 mEq PO was administered. Rifaxamin and lactulose were continued for hepatic encephalopathy. Albumin 25% 12.5g IV given q6h. Ammonia level at admission was 11. Propranolol was continued for esophageal varices. Oxycodone was continued PRN for history of chronic back pain. SOB and abdominal distention were likely secondary to ascites from decompensated liver cirrhosis as symptoms improved s/p large volume paracentesis on 08/12. 11.2 L lfuid were removed by IR. Patient has history of frequent paracentesis d/t chronic cirrhosis. Patient was normotensive after paracentesis. Abdominal ultrasound revealed patent portal vein with hepatopetal flow and moderate ascites. No thrombus or obstruction observed. Hypokalemia resolved upon repletion and telemetry was discontinued. Ammonia level remained normal and patient was AAOX3. Patient was anemic likelly due to chronic disease/CKD. H/H stable throughout hospital course. Nephrology was consulted and recommended torsemide considering placement of an indwelling abdominal paracentesis catheter considering history of frequent paracentesis. Catheter was placed on 08/14. Patient had scheduled draining every 4 days during hospital stay. Diuretics were held indefinitely thereafter per nephro recommendation. Patient began complaining of constipation on day 5 of hospital stay and stated that last BM was 3 days ago. Patient was started on lactulose 20mg daily and ducolax. Patient refused lactulose and ducolax for 5 days. Abdominal x-ray showed early, incomplete SBO with no visible free air. Surgery was consulted and recommended keeping patient NPO and possible NGT if patient vomits but no surgical plans were made as patient had BM thereafter. Palliative care was consulted to discuss patient's declining condition and advance care planning. Prognosis guarded and patient was made DNR/DNI. Patient is not interested in hospice services at this time. Physical therapy was also consulted and recommended [facility] as an alternative for the patient pending insurance confirmation. Pt accepted to [facility], with nursing staff aware of necessity to drain aspira catheter. On day of discharge, pt had no acute complaints. Vitals were stable, and physical exam was unchanged. Pt had underwent drainage via aspira catheter prior to discharge to [facility]. He denied fevers, chills, headache, dizziness, chest pain, palpitations, nausea, vomiting, constipation, diarrhea, dysuria. Discharge Exam - Head Exam Head Exam: ATRAUMATIC, NORMAL INSPECTION - Eye Exam Eye Exam: EOMI, Normal appearance - ENT Exam ENT Exam: Mucous Membranes Moist - Neck Exam Neck exam: Normal Inspection - Respiratory Exam Respiratory Exam: NORMAL BREATHING PATTERN. absent: Chest Wall Tenderness - Cardiovascular Exam Cardiovascular Exam: REGULAR RHYTHM, +S1, +S2 - GI/Abdominal Exam GI & Abdominal Exam: Soft. absent: Tenderness Additional comments: pleurx catheter in place in RLQ. Dressing clean/dry/intact - Extremities Exam Extremities exam: pedal pulses present - Back Exam Back exam: NORMAL INSPECTION - Neurological Exam Neurological exam: Alert, CN II-XII Intact, Oriented x3 - Psychiatric Exam Psychiatric exam: Normal Affect, Normal Mood - Skin Skin Exam: Dry, Intact, Warm Discharge Plan - Discharge Medications Prescriptions: traMADol [Ultram] 50 mg PO Q12 PRN #10 tab PRN Reason: Pain, Severe (8-10) - Follow Up Plan Condition: FAIR Disposition: HOME/ ROUTINE Instructions: Chronic Kidney Disease, Cirrhosis (DC), Hepatic Encephalopathy (DC), Abdominal Paracentesis (DC), How to Care for a Pleural Catheter Additional Instructions: Please continue current orders as detailed in current hospital stay at [facility] Please refer to medication reconciliation for medications to be administered Please drain aspira catheter every 4 days, as instructed by Interventional radiologist, Dr. Franko Crespo On discharge: - Please follow up with a primary care physician Dr Bishop within 3-5 days after discharge - Please follow up with bottom wheeler at [facility] liver clinic within 7-14 day s of discharge for future outpatient colonscopy and further care - Please follow up with access specialist, Dr. De Oliveira within 1 week upon discharge - Please resume your medications as prescribed - Please follow a heart healthy and carbohydrate consistent diet. high fiber diet - Please return to the nearest emergency room if symptoms change or worsen Referrals: Delonte Garcia MD [Staff Provider] - Wood De Oliveira MD [Staff Provider] - Surinder Bishop MD [Primary Care Provider] -
[2018-08-31 18:15] VITALS: BP 105/60; PULSE 70
== END 2018-08-31 21:43 | DRG 432 ==
LOC: ED 23:56 → ERH 08-11 02:32 → 2RNO 08-11 04:46 → 5RNO 08-15 15:56
PROVIDERS: ADMIT Internal Medicine; ATTEND Internal Medicine
PROC: 0W9G3ZZ Drainage of Peritoneal Cavity, Percutaneous Approach (ICD-10-PCS; 2018-08-11)
PROC: 3E0F7GC Introduction of Other Therapeutic Substance into Respiratory Tract, Via Natural or Artificial Opening (ICD-10-PCS; 2018-08-11)
PROC: 0W9G30Z Drainage of Peritoneal Cavity with Drainage Device, Percutaneous Approach (ICD-10-PCS; principal; 2018-08-16)
DX: K74.69 Other cirrhosis of liver (principal); N17.0 Acute kidney failure with tubular necrosis; I50.32 Chronic diastolic (congestive) heart failure; I13.0 Hypertensive heart and chronic kidney disease with heart failure and stage 1 through stage 4 chronic kidney disease, or unspecified chronic kidney disease; I85.10 Secondary esophageal varices without bleeding; R18.8 Other ascites; J90 Pleural effusion, not elsewhere classified; K76.6 Portal hypertension; R64 Cachexia; Z68.1 Body mass index [BMI] 19.9 or less, adult; N18.3 Chronic kidney disease, stage 3 (moderate); K21.9 Gastro-esophageal reflux disease without esophagitis; K72.10 Chronic hepatic failure without coma; I25.10 Atherosclerotic heart disease of native coronary artery without angina pectoris; E87.6 Hypokalemia; D63.1 Anemia in chronic kidney disease; K59.00 Constipation, unspecified; I48.0 Paroxysmal atrial fibrillation; D69.6 Thrombocytopenia, unspecified; F41.9 Anxiety disorder, unspecified; Z66 Do not resuscitate; G89.29 Other chronic pain; M54.9 Dorsalgia, unspecified; L89.152 Pressure ulcer of sacral region, stage 2; Z95.5 Presence of coronary angioplasty implant and graft; Z87.891 Personal history of nicotine dependence